=== PATIENT | female | born 1950 | race Caucasian/White ===

== ENCOUNTER 2016-10-31 13:55 | Inpatient (IN) | payer MEDICARE ==
[~2016-10-31] VITALS: Ht 165.1 cm; Wt 186.3 kg
[2016-10-31] VITALS (12 sets, daily range): BP systolic 110–133; BP diastolic 59–99; PULSE 104–149; RESP 16–31; TEMP 97.3–98.6; O2SAT 92–98
[~2016-10-31 13:55] MED LIST: AMLO5TAB22 PO; DUONI NEB; FENO50TA PO; FLUT1INH; FURO20 PO; METO25 PO; OMEP20TA39 PO; POTA75TA PO; PRED50TA PO; PREG75 PO; RIVA20 PO; ULTR50TA PO; Z.0.OXYGEN INH
--- NOTE | 2016-10-31 14:09 | PD ---
HPI Chief Complaint: Chest Pain Time Seen by Provider: 14:08 Travel History International Travel<30 days: No Contact w/Intl Traveler<30days: No Traveled to known affect area: No History of Present Illness HPI 66-year-old female brought in by EMS with complaints of sudden onset left sided pleuritic chest pain. Patient states she had a couple episodes last evening, but this morning it got much worse to the point where she had trouble getting out of bed. Patient denies fever, chills, or other constitutional symptoms. Patient has history of chronic pain and COPD as well as atrial fibrillation. Patient wears O2 at night for sleeping. Patient is allergic to penicillin. PFSH Past Medical History Asthma: Yes Atrial Fibrillation: Yes Heart Rhythm Problems: Yes Cardiovascular Problems: Yes High Cholesterol: Yes GERD: Yes Hypertension: Yes Respiratory: Yes Social History Alcohol Use: No Tobacco Use: No Substance Use: No Allergies-Medications (Allergen,Severity, Reaction): Coded Allergies: Penicillin (Verified Allergy, Severe, 05/01/16) Reported Meds & Prescriptions Reported Meds & Active Scripts Active Reported Lyrica (Pregabalin) 75 Mg Cap 75 Mg PO DAILY Lasix (Furosemide) 20 Mg Tab 20 Mg PO DAILY Amlodipine (Amlodipine Besylate) 5 Mg Tab 5 Mg PO DAILY Metoprolol Tartrate 25 Mg Tab 25 Mg PO BID Xarelto (Rivaroxaban) 20 Mg Tab 20 Mg PO DAILY Breo Ellipta Inh (Fluticasone/Vilanterol) 100-25 Mcg/Act Inh 1 Puff INH DAILY Use daily at the same time. Duoneb (Ipratropium-Albuterol Neb) 0.5-2.5 Mg/3 Ml Neb 1 Nebule INH Q6HR NEB PRN Proair Respiclick Inh (Albuterol Sulfate) 90 Mcg/Act Aerp 2 Puff INH DIRECTED PRN Review of Systems Except as stated in HPI: all other systems reviewed are Neg General / Constitutional: No: Fever, Chills Eyes: No: Visual changes HENT: No: Headaches Cardiovascular: Positive: Chest Pain or Discomfort, Palpitations, Irregular Rhythm, Tachycardia Respiratory: Positive: Shortness of Breath (see history present illness.), Pleuritic Pain, No: Cough, Wheezing, Sneezing, Orthopnea, Hemoptysis Gastrointestinal: No: Abdominal Pain Genitourinary: No: Dysuria Musculoskeletal: No: Pain Skin: No Rash Neurologic: No: Weakness Psychiatric: No: Depression Endocrine: No: Polydipsia Hematologic/Lymphatic: No: Easy Bruising Physical Exam Narrative GENERAL: Morbidly obese female in mild discomfort. SKIN: Warm and dry. Normal color. Normal turgor. HEAD: Atraumatic. Normocephalic. EYES: Pupils equal and round. No scleral icterus. No injection or drainage. ENT: No nasal bleeding or discharge. Mucous membranes pink and moist. NECK: Trachea midline. No JVD. CARDIOVASCULAR: Regular rate and rhythm. RESPIRATORY: No accessory muscle use. Clear to auscultation. Breath sounds equal bilaterally. GASTROINTESTINAL: Abdomen soft, non-tender, nondistended. Hepatic and splenic margins not palpable. MUSCULOSKELETAL: Extremities without clubbing, cyanosis, patient has bilateral 2 + pitting edema in both lower extremities. No significant pain with palpation, compression, and negative Homans sign bilaterally.. No obvious deformities. NEUROLOGICAL: Awake and alert. No obvious cranial nerve deficits. Motor grossly within normal limits. Five out of 5 muscle strength in the arms and legs. Normal speech. PSYCHIATRIC: Appropriate mood and affect; insight and judgment normal. Data Data Last Documented VS Vital Signs Date Time Temp Pulse Resp B/P Pulse Ox O2 Delivery O2 Flow Rate FiO2 10/31/16 17:01 86 Nasal Cannula 4 10/31/16 16:23 149 20 125/59 100 10/31/16 14:58 98.6 Orders Electrocardiogram (10/31/16 14:04) B-Type Natriuretic Peptide (10/31/16 14:04) Ckmb (Isoenzyme) Profile (10/31/16 14:04) Complete Blood Count With Diff (10/31/16 14:04) Comprehensive Metabolic Panel (10/31/16 14:04) D-Dimer (10/31/16 14:04) Magnesium (Mg) (10/31/16 14:04) Prothrombin Time / Inr (Pt) (10/31/16 14:04) Act Partial Throm Time (Ptt) (10/31/16 14:04) Troponin I (10/31/16 14:04) Chest, Single Ap (10/31/16 14:04) Ecg Monitoring (10/31/16 14:04) Bilateral Bp Monitoring (10/31/16 14:04) Iv Access Insert/Monitor (10/31/16 14:04) Oximetry (10/31/16 14:04) Oxygen Administration (10/31/16 14:04) Aspirin (Aspirin) (10/31/16 14:15) Morphine Inj (Morphine Inj) (10/31/16 14:15) Sodium Chloride 0.9% Flush (Ns Flush) (10/31/16 14:15) Ondansetron Inj (Zofran Inj) (10/31/16 14:15) Consult Vascular Access Team (10/31/16 ) Vascular Poc Ultrasound (10/31/16 ) Diltiazem Inj (Cardizem Inj) (10/31/16 15:30) Vital Signs (Adult) Q15MX4,Q4H (10/31/16 16:07) ^ [employer] / Telemetry (10/31/16 16:07) Cardiac Rhythm CHERYL.Q8H (10/31/16 16:07) ^ Notify Dr: Other (10/31/16 16:07) Diltiazem Inj (Cardizem Inj) (10/31/16 16:15) Ct Pulmonary Angiogram (10/31/16 16:10) Iohexol 350 Inj (Omnipaque 350 Inj) (10/31/16 17:52) Blood Culture (10/31/16 18:37) Methylprednisolone So Succ Inj (Solumedr (10/31/16 18:45) Albuterol-Ipratropium Neb (Duoneb Neb) (10/31/16 18:45) Ceftriaxone Inj (Rocephin Inj) (10/31/16 18:45) Azithromycin Inj (Zithromax Inj) (10/31/16 18:45) Admit Order (Ed Use Only) (10/31/16 18:45) Sodium Chlor 0.9% 1000 Ml Inj (Ns 1000 M (10/31/16 19:00) Labs Laboratory Tests Test 10/31/16 14:35 White Blood Count 12.7 TH/MM3 Red Blood Count 4.90 MIL/MM3 Hemoglobin 14.2 GM/DL Hematocrit 43.6 % Mean Corpuscular Volume 88.9 FL Mean Corpuscular Hemoglobin 28.9 PG Mean Corpuscular Hemoglobin 32.5 % Concent Red Cell Distribution Width 14.3 % Platelet Count 231 TH/MM3 Mean Platelet Volume 8.8 FL Neutrophils (%) (Auto) 85.2 % Lymphocytes (%) (Auto) 7.2 % Monocytes (%) (Auto) 6.0 % Eosinophils (%) (Auto) 1.2 % Basophils (%) (Auto) 0.4 % Neutrophils # (Auto) 10.8 TH/MM3 Lymphocytes # (Auto) 0.9 TH/MM3 Monocytes # (Auto) 0.8 TH/MM3 Eosinophils # (Auto) 0.2 TH/MM3 Basophils # (Auto) 0.0 TH/MM3 CBC Comment DIFF FINAL Differential Comment Prothrombin Time 11.3 SEC Prothromb Time International 1.0 RATIO Ratio Activated Partial 28.7 SEC Thromboplast Time D-Dimer Quantitative (PE/DVT) 0.74 MG/L FEU Sodium Level 140 MEQ/L Potassium Level 4.4 MEQ/L Chloride Level 99 MEQ/L Carbon Dioxide Level 33.9 MEQ/L Anion Gap 7 MEQ/L Blood Urea Nitrogen 13 MG/DL Creatinine 0.97 MG/DL Estimat Glomerular Filtration 57 ML/MIN Rate Random Glucose 103 MG/DL Calcium Level 8.6 MG/DL Magnesium Level 1.5 MG/DL Total Bilirubin 0.7 MG/DL Aspartate Amino Transf 10 U/L (AST/SGOT) Alanine Aminotransferase 16 U/L (ALT/SGPT) Alkaline Phosphatase 105 U/L Total Creatine Kinase 35 U/L Troponin I LESS THAN 0.02 NG/ML B-Type Natriuretic Peptide 124 PG/ML Total Protein 6.8 GM/DL Albumin 3.2 GM/DL [facility] Medical Decision Making Medical Screen Exam Complete: Yes Emergency Medical Condition: Yes Differential Diagnosis Pulmonary embolism. Pneumonia. CHF. Cardiac syndrome. Effusion. Narrative Course Patient is medically stable at time of arrival. Labs are ordered including CBC, CMP, PT PTT and INR and d-dimer. EKG and chest x-ray are ordered. Ultrasound of both lower extremity is ordered. Patient is given 325 mg aspirin by mouth. 4 mg IV morphine, 4 mg Zofran IV. EKG shows atrial fibrillation with rapid ventricular response. This is reviewed with Dr. Thapa. Patient's pulse rate is noted to be 140 bpm due to the patient's atrophic with RVR. Dr. Thapa saw the patient and ordered 15 mg diltiazem bolus with a diltiazem drip titrated for her pulse. Patient's O2 sats worsened and she was placed on a Ventimask at 50% to maintain O2 sats. Labs show slight leukocytosis of 12.7 with a right shift. PT PTT and INR are normal. D-dimer is elevated at 0.74. Chemistries remarkable for carbon dioxide of 33.9, troponin of less than 0.02, BNP of 124. Pulmonary embolism CT scan is ordered. CT scan shows no PE but does show bilateral lower lobe consolidation consistent with pneumonia. Blood cultures are ordered 2, and patient is started on Rocephin 1000 mg IV as well as azithromycin 500 mg IV. Patient is given 125 mg Solu-Medrol and DuoNeb 3. 1640 hrs. call placed to the hospitalist for admission. Patient was discussed with Dr. Lowry. Arterial Blood gas is pending. At the patient's blood gases obtained, Dr. Lowry feels that the patient should be taken in under the [facility]. CPAP was started, and call was placed to Dr. Wilson, the [facility] on-call. Patient was discussed with Dr. Wilson who agreed the patient should be admitted to the ICU. Critical Care Narrative Diagnosis Primary Impression: Pneumonia Qualified Code: J18.9 - Pneumonia of both lower lobes due to infectious organism Additional Impressions: Afib Qualified Code: I48.2 - Chronic atrial fibrillation Pleural effusion on left Hypoxia Admitting Information Admitting Physician Requests: Admit Condition: Stable Aaron Tse Oct 31, 2016 14:08
[2016-10-31] MEDS ORDERED: ONDANSETRON HCL 4 MG/2 ML VIAL IVP ONE (14:15)
[2016-10-31] MEDS ORDERED: MORPHINE SULFATE 4 MG/ML INJ IV PUSH ONE (14:15)
[2016-10-31] MEDS ORDERED: SODIUM CHLORIDE 0.9% FLUSH 5 ML FLUSH IVF PRN (14:15)
[2016-10-31] MEDS ORDERED: ASPIRIN 325 MG TAB PO ONE (14:15)
[2016-10-31] MEDS ORDERED: DILTIAZEM HCL 25 MG/5 ML VIAL IV ONE (15:30)
[2016-10-31 15:32] LABS: AUTOMATED NEUTROPHIL # 10.8 TH/MM3 (1.8-7.7); BASOPHIL % 0.4 % (0.0-2.0); EOSINOPHIL # 0.2 TH/MM3 (0-0.4); EOSINOPHIL % 1.2 % (0.0-4.0); HEMATOCRIT 43.6 % (35.0-46.0); HEMO FLAGS DIFF FINAL; LYMPH % 7.2 % (9.0-44.0); LYMPHOCYTE # 0.9 TH/MM3 (1.0-4.8); MEAN CELL VOLUME 88.9 FL (80.0-100.0); MEAN CORPUSCULAR HEMOGLOBIN 28.9 PG (27.0-34.0); MEAN CORPUSCULAR HGB CONC 32.5 % (32.0-36.0); NEUT % 85.2 % (16.0-70.0); PLATELET COUNT 231 TH/MM3 (150-450); RED CELL DISTRIBUTION WIDTH 14.3 % (11.6-17.2); WHITE BLOOD COUNT 12.7 TH/MM3 (4.0-11.0)
[2016-10-31 15:43] LABS: APTT (PATIENT) 28.7 SEC (24.3-30.1); PROTHROMBIN TIME - PATIENT 11.3 SEC (9.8-11.6)
[2016-10-31] MEDS ORDERED: XARE20TA PO (15:45)
[2016-10-31] MEDS ORDERED: FURO1TAB62 PO (15:45)
[2016-10-31] MEDS ORDERED: IPRASOL INH (15:45)
[2016-10-31] MEDS ORDERED: AMLO5TAB2 PO (15:45)
[2016-10-31] MEDS ORDERED: FLUT1INH INH (15:45)
[2016-10-31] MEDS ORDERED: ALBU1AER5 INH (15:45)
[2016-10-31] MEDS ORDERED: METO25TA3 PO (15:45)
[2016-10-31] MEDS ORDERED: LYRI75CA PO (15:45)
--- NOTE | 2016-10-31 15:47 | RADRPT ---
EXAM DATE/TIME: 10/31/2016 14:03 [facility] COMPARISON: No previous studies available for comparison. INDICATIONS : Shortness of breath. MEDICAL HISTORY : Asthma SURGICAL HISTORY : None. ENCOUNTER: Initial ACUITY: 1 day PAIN SCORE: 0/10 LOCATION: Bilateral chest FINDINGS: There is increased density at the left chest overlying the left heart border. It appea rs the lower half of the left chest is opacified. It is thought the heart size is likely enlarged. T here is some mild increased density identified at the right base. CONCLUSION: 1. Increased density at the left base representing a combination of suspected large effusion and left lower lobe atelectasis or consolidation. 2. Milder area of consolidation or atelectasis at the right base. 3. Cardiomegaly. Perry Frye MD on October 31, 2016 at 15:40 Board Certified Radiologist. This report was verified electronically.
[2016-10-31 15:55] LABS: ALT (GPT) 16 U/L (10-53); ANION GAP 7 MEQ/L (5-15); AST (GOT) 10 U/L (15-37); BICARBONATE 33.9 MEQ/L (21.0-32.0); BLOOD UREA NITROGEN 13 MG/DL (7-18); CHLORIDE 99 MEQ/L (98-107); GLOMERULAR FILTRATION RATE 57 ML/MIN (>89); MAGNESIUM 1.5 MG/DL (1.5-2.5); POTASSIUM 4.4 MEQ/L (3.5-5.1); SODIUM (NA) 140 MEQ/L (136-145)
[2016-10-31 16:08] LABS: ALKALINE PHOSPHATASE 105 U/L (45-117); TOTAL BILIRUBIN ADULT 0.7 MG/DL (0.2-1.0)
[2016-10-31 16:11] LABS: CREATINE KINASE 35 U/L (26-192)
[2016-10-31] MEDS: DILTIAZEM INJ 125 MG in SODIUM CHLORIDE 0.9% INJ 100 ML IV SCH (16:57)
[2016-10-31] MEDS ORDERED: IOHEXOL 350 MG/ML 10 ML VIAL (for RAD DIAG) IV ONE (17:52)
--- NOTE | 2016-10-31 18:09 | RADRPT ---
EXAM DATE/TIME: 10/31/2016 17:31 [facility] COMPARISON: No previous studies available for comparison. INDICATIONS : Left-sided chest pain. IV CONTRAST: 70 cc Omnipaque 350 (iohexol) IV RADIATION DOSE: 41.78 CTDIvol (mGy) MEDICAL HISTORY : Hypertension. Gastroesophageal reflux disease. Congestive heart failure. Hiatal hernia. SURGICAL HISTORY : None. ENCOUNTER: Initial ACUITY: 1 day PAIN SCALE: 10/10 LOCATION: Left chest TECHNIQUE: Volumetric scanning of the chest was performed using a pulmonary embolism protocol MIP images were reconstructed. Using automated exposure control and adjustment of the mA and/or kV acco rding to patient size, radiation dose was kept as low as reasonably achievable to obtain optimal diag nostic quality images. FINDINGS: The heart is enlarged with consolidative changes in the left lower lobe with a left ple ural effusion. There is no axillary adenopathy. There is no radiographically significant mediastina l adenopathy. I do not see evidence for central pulmonary emboli. Portion of the liver and spleen identified are free of focal defects. CONCLUSION: 1. Consolidative changes in both lung bases worse on the left than the right. 2. There is no evidence for central pulmonary emboli. Joseph Baeza MD FACR on October 31, 2016 at 18:00 Board Certified Radiologist. This report was verified electronically.
[2016-10-31] MEDS ORDERED: cefTRIAXone INJ 1,000 MG in SODIUM CHLORIDE 0.9% INJ 100 ML IV ONE (18:45)
[2016-10-31] MEDS ORDERED: methylPREDNISolone SOD SUCC 125 MG/2 ML VIAL IVP ONE (18:45)
[2016-10-31] MEDS ORDERED: AZITHROMYCIN INJ 500 MG in SODIUM CHLOR 0.9% 250 ML INJ 250 ML IV ONE (18:45)
--- NOTE | 2016-10-31 18:47 | PD ---
Data Data Last Documented VS Vital Signs Date Time Temp Pulse Resp B/P Pulse Ox O2 Delivery O2 Flow Rate FiO2 10/31/16 17:01 86 Nasal Cannula 4 10/31/16 16:23 149 20 125/59 100 10/31/16 14:58 98.6 Orders Electrocardiogram (10/31/16 14:04) B-Type Natriuretic Peptide (10/31/16 14:04) Ckmb (Isoenzyme) Profile (10/31/16 14:04) Complete Blood Count With Diff (10/31/16 14:04) Comprehensive Metabolic Panel (10/31/16 14:04) D-Dimer (10/31/16 14:04) Magnesium (Mg) (10/31/16 14:04) Prothrombin Time / Inr (Pt) (10/31/16 14:04) Act Partial Throm Time (Ptt) (10/31/16 14:04) Troponin I (10/31/16 14:04) Chest, Single Ap (10/31/16 14:04) Ecg Monitoring (10/31/16 14:04) Bilateral Bp Monitoring (10/31/16 14:04) Iv Access Insert/Monitor (10/31/16 14:04) Oximetry (10/31/16 14:04) Oxygen Administration (10/31/16 14:04) Aspirin (Aspirin) (10/31/16 14:15) Morphine Inj (Morphine Inj) (10/31/16 14:15) Sodium Chloride 0.9% Flush (Ns Flush) (10/31/16 14:15) Ondansetron Inj (Zofran Inj) (10/31/16 14:15) Consult Vascular Access Team (10/31/16 ) Vascular Poc Ultrasound (10/31/16 ) Diltiazem Inj (Cardizem Inj) (10/31/16 15:30) Vital Signs (Adult) Q15MX4,Q4H (10/31/16 16:07) ^ [employer] / Telemetry (10/31/16 16:07) Cardiac Rhythm CHERYL.Q8H (10/31/16 16:07) ^ Notify Dr: Other (10/31/16 16:07) Diltiazem Inj (Cardizem Inj) (10/31/16 16:15) Ct Pulmonary Angiogram (10/31/16 16:10) Iohexol 350 Inj (Omnipaque 350 Inj) (10/31/16 17:52) Blood Culture (10/31/16 18:37) Methylprednisolone So Succ Inj (Solumedr (10/31/16 18:45) Albuterol-Ipratropium Neb (Duoneb Neb) (10/31/16 18:45) Ceftriaxone Inj (Rocephin Inj) (10/31/16 18:45) Azithromycin Inj (Zithromax Inj) (10/31/16 18:45) Labs Laboratory Tests Test 10/31/16 14:35 White Blood Count 12.7 TH/MM3 Red Blood Count 4.90 MIL/MM3 Hemoglobin 14.2 GM/DL Hematocrit 43.6 % Mean Corpuscular Volume 88.9 FL Mean Corpuscular Hemoglobin 28.9 PG Mean Corpuscular Hemoglobin 32.5 % Concent Red Cell Distribution Width 14.3 % Platelet Count 231 TH/MM3 Mean Platelet Volume 8.8 FL Neutrophils (%) (Auto) 85.2 % Lymphocytes (%) (Auto) 7.2 % Monocytes (%) (Auto) 6.0 % Eosinophils (%) (Auto) 1.2 % Basophils (%) (Auto) 0.4 % Neutrophils # (Auto) 10.8 TH/MM3 Lymphocytes # (Auto) 0.9 TH/MM3 Monocytes # (Auto) 0.8 TH/MM3 Eosinophils # (Auto) 0.2 TH/MM3 Basophils # (Auto) 0.0 TH/MM3 CBC Comment DIFF FINAL Differential Comment Prothrombin Time 11.3 SEC Prothromb Time International 1.0 RATIO Ratio Activated Partial 28.7 SEC Thromboplast Time D-Dimer Quantitative (PE/DVT) 0.74 MG/L FEU Sodium Level 140 MEQ/L Potassium Level 4.4 MEQ/L Chloride Level 99 MEQ/L Carbon Dioxide Level 33.9 MEQ/L Anion Gap 7 MEQ/L Blood Urea Nitrogen 13 MG/DL Creatinine 0.97 MG/DL Estimat Glomerular Filtration 57 ML/MIN Rate Random Glucose 103 MG/DL Calcium Level 8.6 MG/DL Magnesium Level 1.5 MG/DL Total Bilirubin 0.7 MG/DL Aspartate Amino Transf 10 U/L (AST/SGOT) Alanine Aminotransferase 16 U/L (ALT/SGPT) Alkaline Phosphatase 105 U/L Total Creatine Kinase 35 U/L Troponin I LESS THAN 0.02 NG/ML B-Type Natriuretic Peptide 124 PG/ML Total Protein 6.8 GM/DL Albumin 3.2 GM/DL MDM Supervised Visit with MAUREEN: Yes Narrative Course The history, exam, and medical decision-making in the associated midlevel provider note were completed with my assistance. I reviewed and agree with the findings presented. I attest that I had a [id number] encounter with the patient on the same day, and personally performed and documented my assessment and findings in the medical record. *My assessment and Findings: This is a 66-year-old female with a history of COPD who presents the emergency department with left sided pleuritic pain as well as increasing shortness of breath. She does wear oxygen at home and night , but here in the emergency department she desaturates to 86% on room air. Patient also was found to be in atrial fibrillation with RVR. She did not take her home medications this morning because she wasn't feeling well. Labs are notable for a mild leukocytosis. X-ray demonstrated a left-sided pleural effusion in the area where the patient is having pain. Given the patient has a normal BNP, a CT was ordered which demonstrates bilateral consolidations suggesting pneumonia. Patient will be given IV hydration, antibiotics, cultures will be obtained, and the patient will be admitted for further management. She was also placed on a diltiazem infusion to control her heart rate. Diagnosis Primary Impression: Chest pain made worse by breathing Additional Impressions: Hypoxia Afib Qualified Code: I48.2 - Chronic atrial fibrillation Pleural effusion on left Condition: Stable Gracie Thapa MD Oct 31, 2016 18:47
[2016-10-31] MEDS: RESP: ALBUTEROL 2.5 MG/IPRATROPIUM 0.5 MG NEB (SCH) INH ×4 (18:54→23:23)
[2016-10-31] MEDS ORDERED: SODIUM CHLOR 0.9% 1000 ML INJ 1,000 ML IV ONE (19:00)
[2016-10-31] MEDS ORDERED: POTASSIUM CL 40 MEQ/30 ML LIQ UDC PO/TUBE PRN ×2 (20:00)
[2016-10-31] MEDS ORDERED: MISCELLANEOUS NURSING INFORMATION XX SCH (20:00)
[2016-10-31] MEDS ORDERED: DEXTROSE 50% IN WATER 50 ML VIAL(D50) IV PUSH PRN (20:00)
[2016-10-31] MEDS ORDERED: ENOXAPARIN SODIUM 40 MG/0.4 ML SYRINGE SQ SCH (20:00)
[2016-10-31] MEDS ORDERED: SODIUM PHOSPHATE INJ 30 MMOL in SODIUM CHLOR 0.9% 250 ML INJ 240 ML IV PRN (20:00)
[2016-10-31] MEDS ORDERED: MAGNESIUM OXIDE 400 MG TAB PO PRN (20:00)
[2016-10-31] MEDS ORDERED: POTASSIUM PHOSPHATE INJ 30 MMOL in SODIUM CHLOR 0.9% 250 ML INJ 250 ML IV PRN (20:00)
[2016-10-31] MEDS ORDERED: POTASSIUM CHLOR 20 MEQ PREMIX 100 ML IV PRN ×2 (20:00)
[2016-10-31] MEDS ORDERED: MAGNESIUM SULFATE INJ 4 GM in SODIUM CHLORIDE 0.9% INJ 92 ML IV PRN (20:00)
[2016-10-31] MEDS ORDERED: SODIUM CHLORIDE 0.9% FLUSH 5 ML FLUSH IV FLUSH PRN (20:00)
[2016-10-31] MEDS ORDERED: POTASSIUM PHOSPHATE MONOBASIC 500 MG TAB PO PRN (20:00)
[2016-10-31] MEDS ORDERED: MAGNESIUM SULFATE INJ 2 GM in SODIUM CHLORIDE 0.9% INJ 96 ML IV PRN (20:00)
[2016-10-31] MEDS ORDERED: CHLORHEXIDINE GLUCONATE 2 % 1 PACK (2 CLOTHS) TOP PRN (20:00)
[2016-10-31] MEDS ORDERED: POTASSIUM CHLOR 40 MEQ PREMIX 100 ML IV PRN ×2 (20:00)
[2016-10-31] MEDS ORDERED: POTASSIUM PHOSPHATE MONOBASIC 500 MG TAB PO/TUBE PRN (20:00)
--- NOTE | 2016-10-31 20:04 | HHI.HP ---
HPI Service Critical Care Medicine Primary Care Physician No Primary Care Physician Admission Diagnosis Pneumonia/Hypoxia/Afib/Hypoxia Diagnosis: Chief Complaint: shortness of breath Travel History International Travel<30 Days: No Contact w/Intl Traveler <30 Da: No Traveled to Known Affected Are: No History of Present Illness This is a 66yF with history of a fib and o2 dependent COPD and morbid obesity who presents with 1 day history of pleuritic chest pain and shortness of breath , found to be more hypoxic than usual on her home o2. initial ABG per report to me in the ED (not in the EMR) was pH 7.1 pco2 99. The patient was placed on BiPAP. The patient was initially given Rocephin and azithromycin iv. Pertinent labs are a wbc 12.7, bicarb 33, bnp 124. Critical care medicine is consulted for evaluation and management of her hypoxic and hypercarbic respiratory failure. When I evaluated the patient, she was moderately dyspneic. She denied N/V/ diarrhea. Although she had previously endorsed pleuritic chest pain to the ED physician, she denied chest pain to me on my evaluation. She states she is compliant with her xarelto. Patient is allergic to penicillins, but has tolerated cephalosporins in the past. Review of Systems ROS Limitations: Clinical Condition Constitutional: DENIES: Fatigue, Chills Respiratory: COMPLAINS OF: Shortness of breath, DENIES: Cough, Wheezing, Sputum production Cardiovascular: DENIES: Chest pain, Palpitations, Dyspnea on Exertion, Lower Extremity Edema Gastrointestinal: DENIES: Abdominal pain, Constipation, Diarrhea, Nausea, Vomiting Past Family Social History Allergies: Coded Allergies: Penicillin (Verified Allergy, Severe, 05/01/16) Past Medical History Asthma o2 dependent COPD Atrial fibrillation Hyperlipidemia Hypertension GERD Past Surgical History Appendectomy Hernia repair Reported Medications Lyrica (Pregabalin) 75 Mg Cap 75 Mg PO DAILY Lasix (Furosemide) 20 Mg Tab 20 Mg PO DAILY Amlodipine (Amlodipine Besylate) 5 Mg Tab 5 Mg PO DAILY Metoprolol Tartrate 25 Mg Tab 25 Mg PO BID Xarelto (Rivaroxaban) 20 Mg Tab 20 Mg PO DAILY Breo Ellipta Inh (Fluticasone/Vilanterol) 100-25 Mcg/Act Inh 1 Puff INH DAILY Use daily at the same time. Duoneb (Ipratropium-Albuterol Neb) 0.5-2.5 Mg/3 Ml Neb 1 Nebule INH Q6HR NEB PRN Proair Respiclick Inh (Albuterol Sulfate) 90 Mcg/Act Aerp 2 Puff INH DIRECTED PRN Active Ordered Medications See MAR Family History reviewed and found to be noncontributory to her acute illness. Social History Denies tobacco, alcohol, drugs of abuse. Physical Exam Vital Signs Vital Signs Date Time Temp Pulse Resp B/P Pulse Ox O2 Delivery O2 Flow Rate FiO2 10/31/16 17:01 86 Nasal Cannula 4 10/31/16 16:32 95 Partial Rebreather 15.00 10/31/16 16:23 149 20 125/59 98 Non-Rebreather 100 10/31/16 15:52 110 16 120/83 94 Nasal Cannula 2 10/31/16 15:00 142 31 121/88 95 Nasal Cannula 2 10/31/16 14:58 98.6 134 26 121/88 94 Nasal Cannula 2 10/31/16 14:58 134 121/88 10/31/16 14:57 137 10/31/16 14:10 94 Nasal Cannula 2 10/31/16 14:08 Nasal Cannula 2 10/31/16 14:06 124 133/99 10/31/16 14:06 98.6 124 21 133/99 94 10/31/16 14:06 98.6 124 24 133/99 94 Physical Exam GENERAL: Morbidly obese Middle-aged female, lying in bed, moderate respiratory distress. HEENT: Normocephalic. Atraumatic. Pupils equal, round, reactive, conjugate. Mucous membranes are moist. NECK: In place. Trachea is midline. JVD unable to be assessed due to body habitus CHEST: Mildly tachypneic. Equal chest rise. Very distant breath sounds given body habitus. Diminished breath sounds more on the left than the right. CARDIOVASCULAR: Tachycardic rate, irregularly irregular rhythm. Muffled heart sounds. No appreciable murmurs. ABDOMEN: Morbidly obese, soft, nontender, nondistended. No guarding. MUSCULOSKELETAL: 1+ peripheral edema. Distal pulses 2+. NEUROLOGICAL: RASS 0. CAM -. Follows commands in all 4 extremities. No gross focal motor or sensory deficits. Laboratory Laboratory Tests Test 10/31/16 14:35 White Blood Count 12.7 Red Blood Count 4.90 Hemoglobin 14.2 Hematocrit 43.6 Mean Corpuscular Volume 88.9 Mean Corpuscular Hemoglobin 28.9 Mean Corpuscular Hemoglobin 32.5 Concent Red Cell Distribution Width 14.3 Platelet Count 231 Mean Platelet Volume 8.8 Neutrophils (%) (Auto) 85.2 Lymphocytes (%) (Auto) 7.2 Monocytes (%) (Auto) 6.0 Eosinophils (%) (Auto) 1.2 Basophils (%) (Auto) 0.4 Neutrophils # (Auto) 10.8 Lymphocytes # (Auto) 0.9 Monocytes # (Auto) 0.8 Eosinophils # (Auto) 0.2 Basophils # (Auto) 0.0 CBC Comment DIFF FINAL Differential Comment Prothrombin Time 11.3 Prothromb Time International 1.0 Ratio Activated Partial 28.7 Thromboplast Time D-Dimer Quantitative (PE/DVT) 0.74 Sodium Level 140 Potassium Level 4.4 Chloride Level 99 Carbon Dioxide Level 33.9 Anion Gap 7 Blood Urea Nitrogen 13 Creatinine 0.97 Estimat Glomerular Filtration 57 Rate Random Glucose 103 Calcium Level 8.6 Magnesium Level 1.5 Total Bilirubin 0.7 Aspartate Amino Transf 10 (AST/SGOT) Alanine Aminotransferase 16 (ALT/SGPT) Alkaline Phosphatase 105 Total Creatine Kinase 35 Troponin I LESS THAN 0.02 B-Type Natriuretic Peptide 124 Total Protein 6.8 Albumin 3.2 Result Diagram: 10/31/16 1435 10/31/[address] angiography 10/31: Negative for pulmonary embolism. Evidence of left lower lobe consolidation. Small left pleural effusion. Assessment and Plan Assessment and Plan Assessment: This is a 66-year-old female with history of oxygen dependent COPD, morbid obesity, atrial fibrillation who presents with A. fib with rapid ventricular response, COPD exacerbation, community-acquired pneumonia. I think is reasonable to continue her on BiPAP. She is alert and oriented for now. We will recheck her ABG. I'm concerned given her severe CO2 retention that she may require intubation mechanical ventilation, although given her body habitus and her severe COPD, this is not without risk, and she may never separate from mechanical ventilation if intubated. For now, she does remains critically ill as her hypercarbic and hypoxic respiratory failure her life-threatening given her medical comorbidities and her severe respiratory acidosis. Active problems: Acute hypercarbic and hypoxic respiratory failure Community-acquired pneumonia COPD exacerbation Atrial fibrillation with rapid ventricular response Plan: Admit to the ICU Continue BiPAP Follow-up ABG after 2 hours of BiPAP We will continue the patient on BiPAP as long she continues to improve. If she decreases her mentation or her hypoxia or hypercarbia worsens we will proceed with intubation and mechanical ventilation Continue azithromycin We will stop the patient over to cefepime given her history of severe COPD for improved pseudomonal coverage Follow-up blood, sputum, urine cultures Urine pneumococcal antigen methylpred 60 iv q6h --Duonebs q4h and q2h prn Agree with diltiazem drip for rapidly titratable rate control given A. fib RVR Continue home Xarelto and SCDs for DVT prophylaxis Protonix for GERD and GI prophylaxis This patient remains critically ill with one or more organ systems which are or may become a threat to life. I have spent in excess of 37 minutes discontinuously in the care and management of this patient. This time is exclusive of procedures, and includes, but is not limited to, evaluation of the patient, review of the medical record, discussions with family, consultants, nursing staff, or respiratory therapy, and documentation in the medical record. Code Status Full Code Christ Mullins MD Oct 31, 2016 20:04
[2016-10-31] MEDS: DOCUSATE SODIUM 50 MG/SENNA 8.6 MG TAB PO SCH (21:00)
[2016-10-31] MEDS: SODIUM CHLORIDE 0.9% FLUSH 5 ML FLUSH IV FLUSH SCH (21:00)
[2016-10-31] MEDS: INSULIN NovoLIN REGULAR SUPPLEMENTAL SCALE SQ SCH (21:00)
[2016-10-31 21:07] LABS: BACTERIA, URINE MANY /hpf; BLOOD, URINE SMALL (NEG); GLUCOSE,URINE NEG (NEG); KETONE, URINE NEG (NEG); MUCUS URINE FEW /lpf (OCC); NITRITE,URINE NEG (NEG); SQUAMOUS EPITHELIAL CELL URINE 1 /hpf (0-5); URINE COLOR YELLOW (YELLW/STRAW)
[2016-10-31 21:09] LABS: COMMENT (UR) CATH-CULTURE IND; CULTURE IF INDICATED CATH CULTURE IND
[2016-10-31 21:24] LABS: BLOOD GAS BASE EXCESS 5.2 mmol/L (-2-2); BLOOD GAS CARBOXYHEMOGLOBIN 2.2 % (0-4); BLOOD GAS HCO3 34 mmol/L (22-26); BLOOD GAS O2 HGB SATURATION 88 % (90-100); BLOOD GAS PCO2 99 mmHg (38-42); BLOOD GAS PO2 73 mmHG (61-120); BLOOD GAS TOTAL HGB 15.3 G/DL (12.0-16.0); TEMP CORR TO 98.6
[2016-10-31 21:25] LABS: CRITICAL VALUE YES; DRAW SITE LT BRACHIAL; LITER FLOW 8 L/M; NUMBER OF ARTERIAL PUNCTURES 1; OXYGEN DEVICE ON NEBULIZER TX; STAT YES
[2016-10-31 21:29] LABS: BLOOD GAS BASE EXCESS 5.2 mmol/L (-2-2); BLOOD GAS CARBOXYHEMOGLOBIN 2.3 % (0-4); BLOOD GAS HCO3 32 mmol/L (22-26); BLOOD GAS METHEMOGLOBIN 1.7 % (0-2); BLOOD GAS O2 HGB SATURATION 83 % (90-100); BLOOD GAS OXYGEN CONTENT 17.1 Vol % (12.0-20.0); BLOOD GAS PCO2 77 mmHg (38-42); BLOOD GAS PO2 54 mmHG (61-120); BLOOD GAS TOTAL HGB 14.7 G/DL (12.0-16.0); CRITICAL VALUE YES; OXYGEN DEVICE BIPAP(ON NPPV); TEMP CORR TO 98.6
[2016-10-31 21:30] LABS: DRAW SITE RT RADIAL; FIO2 60 %; NUMBER OF ARTERIAL PUNCTURES 1; STAT NO; ULNAR PULSE PRESENT; VENT SETTINGS PEEP=6 PS=12
[2016-11-01] VITALS (15 sets, daily range): BP systolic 113–143; BP diastolic 58–86; PULSE 78–119; RESP 15–30; TEMP 97.7–99.7; O2SAT 90–95
[2016-11-01] MEDS: PANTOPRAZOLE SODIUM 40 MG VIAL IV PUSH SCH ×2 (00:26→23:14)
[2016-11-01] MEDS: methylPREDNISolone SOD SUCC 125 MG/2 ML VIAL IV PUSH SCH ×5 (00:26→23:15)
[2016-11-01] MEDS: DILTIAZEM INJ 125 MG in SODIUM CHLORIDE 0.9% INJ 100 ML IV SCH (00:28)
[2016-11-01] MEDS: CEFEPIME INJ 2,000 MG in SODIUM CHLORIDE 0.9% INJ 100 ML IV SCH ×4 (00:28→23:17)
[2016-11-01] MEDS: INSULIN NovoLIN REGULAR SUPPLEMENTAL SCALE SQ SCH ×5 (03:00→20:08)
[2016-11-01] MEDS: RESP: ALBUTEROL 2.5 MG/IPRATROPIUM 0.5 MG NEB (SCH) INH ×6 (03:38→23:10)
[2016-11-01] MEDS: CHLORHEXIDINE GLUCONATE 2 % 1 PACK (2 CLOTHS) TOP SCH (03:39)
[2016-11-01 04:14] LABS: HEMATOCRIT 46.3 % (35.0-46.0); MEAN CELL VOLUME 89.7 FL (80.0-100.0); MEAN CORPUSCULAR HEMOGLOBIN 28.8 PG (27.0-34.0); MEAN CORPUSCULAR HGB CONC 32.2 % (32.0-36.0); PLATELET COUNT 217 TH/MM3 (150-450); RED BLOOD COUNT 5.16 MIL/MM3 (4.00-5.30); RED CELL DISTRIBUTION WIDTH 14.8 % (11.6-17.2); REVIEW FLAG FINAL; WHITE BLOOD COUNT 14.1 TH/MM3 (4.0-11.0)
[2016-11-01 04:44] LABS: BICARBONATE 30.3 MEQ/L (21.0-32.0)
[2016-11-01 04:45] LABS: POTASSIUM 5.6 MEQ/L (3.5-5.1)
[2016-11-01 05:49] LABS: BLOOD GAS BASE EXCESS 3.4 mmol/L (-2-2); BLOOD GAS CARBOXYHEMOGLOBIN 1.6 % (0-4); BLOOD GAS HCO3 30 mmol/L (22-26); BLOOD GAS METHEMOGLOBIN 0.7 % (0-2); BLOOD GAS O2 HGB SATURATION 91 % (90-100); BLOOD GAS OXYGEN CONTENT 18.2 Vol % (12.0-20.0); BLOOD GAS PCO2 71 mmHg (38-42); BLOOD GAS PO2 67 mmHg (61-120); BLOOD GAS TOTAL HGB 14.3 G/DL (12.0-16.0); TEMP CORR TO 98.6
[2016-11-01 05:50] LABS: CRITICAL VALUE YES; DRAW SITE RT RADIAL; FIO2 45 %; NUMBER OF ARTERIAL PUNCTURES 1; OXYGEN DEVICE BIPAP; STAT NO; ULNAR PULSE PRESENT; VENT SETTINGS IPAP 15/EPAP 8
[2016-11-01] MEDS: PREGABALIN 75 MG CAP PO SCH (08:43)
[2016-11-01] MEDS: RIVAROXABAN 20 MG TAB PO SCH (08:43)
[2016-11-01] MEDS: SODIUM CHLORIDE 0.9% FLUSH 5 ML FLUSH IV FLUSH SCH ×2 (08:43→19:51)
[2016-11-01] MEDS: DOCUSATE SODIUM 50 MG/SENNA 8.6 MG TAB PO SCH ×2 (08:43→19:51)
--- NOTE | 2016-11-01 09:33 | HHI.CCPN ---
Subjective Remarks/Hospital Course This is a 66yF with history of a fib and o2 dependent COPD and morbid obesity who presents with 1 day history of pleuritic chest pain and shortness of breath , found to be more hypoxic than usual on her home o2. initial ABG per report to me in the ED (not in the EMR) was pH 7.1 pco2 99. The patient was placed on BiPAP. The patient was initially given Rocephin and azithromycin iv. Pertinent labs are a wbc 12.7, bicarb 33, bnp 124. Critical care medicine is consulted for evaluation and management of her hypoxic and hypercarbic respiratory failure. 11/01: Much improved respiratory comfort today. The complete atelectasis of the LLL is worrisome, but probably chronic. She dose not act infected. Objective Vital Signs Date Time Temp Pulse Resp B/P Pulse Ox O2 Delivery O2 Flow Rate FiO2 11/01/16 08:00 90 11/01/16 08:00 97.7 19 122/73 95 11/01/16 08:00 Partial Non-Rebreather 13.00 11/01/16 07:48 50 Result Diagram: 11/01/16 0357 11/01/16 0357 Other Results Laboratory Tests Test 10/31/16 10/31/16 11/01/16 19:30 21:10 05:40 Blood Gas Puncture Site LT BRACHIAL RT RADIAL RT RADIAL Blood Gas Patient Temperature 98.6 98.6 98.6 Blood Gas HCO3 34 mmol/L 32 mmol/L 30 mmol/L (22-26) (22-26) (22-26) Blood Gas Base Excess 5.2 mmol/L 5.2 mmol/L 3.4 mmol/L (-2-2) (-2-2) (-2-2) Blood Gas Oxygen Saturation 88 % (90-100) 83 % (90-100) 91 % (90-100) Arterial Blood pH 7.16 7.25 7.25 (7.380-7.420) (7.380-7.420) (7.380-7.420) Arterial Blood Partial 99 mmHg (38-42) 77 mmHg (38-42) 71 mmHg (38-42) Pressure CO2 Arterial Blood Partial 73 mmHG 54 mmHG 67 mmHg Pressure O2 (61-120) (61-120) (61-120) Arterial Blood Oxygen Content 19.0 Vol % 17.1 Vol % 18.2 Vol % (12.0-20.0) (12.0-20.0) (12.0-20.0) Arterial Blood 2.2 % (0-4) 2.3 % (0-4) 1.6 % (0-4) Carboxyhemoglobin Arterial Blood Methemoglobin 2.0 % (0-2) 1.7 % (0-2) 0.7 % (0-2) Blood Gas Hemoglobin 15.3 G/DL 14.7 G/DL 14.3 G/DL (12.0-16.0) (12.0-16.0) (12.0-16.0) Oxygen Delivery Device ON NEBULIZER BIPAP(ON NPPV) BIPAP TX Blood Gas Liter Flow 8 L/M Blood Gas Ventilator Setting PEEP=6 PS=12 IPAP 15/EPAP 8 Blood Gas Inspired Oxygen 60 % 45 % Imaging CT angiography 10/31: Negative for pulmonary embolism. Evidence of left lower lobe consolidation. Small left pleural effusion. Objective Remarks GENERAL: Morbidly obese Middle-aged female. HEENT: Normocephalic. Atraumatic. NECK: Supple. Airway widely patent. CHEST: Mildly tachypneic. Distant breath sounds. Diminished breath sounds more on the left than the right. CARDIOVASCULAR: Controlled rate, irregularly irregular rhythm. No appreciable murmurs. ABDOMEN: Morbidly obese, soft, nontender, nondistended. No guarding. BS active. MUSCULOSKELETAL: 1+ peripheral edema. Distal pulses 2+. NEUROLOGICAL: O X 3, alert. Follows commands in all 4 extremities. No gross focal motor or sensory deficits. A/P Assessment and Plan Active problems: Acute hypercarbic and hypoxic respiratory failure Community-acquired pneumonia COPD exacerbation Atrial fibrillation with rapid ventricular response Plan: Transfer Partial NRBM Continue azithromycin - Cefepime given her history of severe COPD for improved pseudomonal coverage Follow-up blood, sputum, urine cultures Urine pneumococcal antigen methylpred 60 iv q6h --Duonebs q4h and q2h prn Convert to oral diltiazem. Continue home Xarelto and SCDs for DVT prophylaxis Protonix for GERD and GI prophylaxis Assessment: This is a 66-year-old female with history of oxygen dependent COPD, morbid obesity, permanent atrial fibrillation who presents with A. fib with rapid ventricular response, COPD exacerbation, community-acquired pneumonia. She is alert and oriented for now. I'm concerned given her severe CO2 retention that she may require intubation mechanical ventilation, although given her body habitus and her severe COPD, this is not without risk, and she may never separate from mechanical ventilation if intubated. She is probably close to her baseline now. Colin Moralez MD Nov 01, 2016 09:33
[2016-11-01] MEDS: FLUTICASONE 100 MCG/VILANTEROL 25 MCG INHALER INH SCH (09:54)
[2016-11-01] MEDS: guaiFENesin/DEXTROMETHORPHAN 200 MG/20 MG/10 ML CUP PO PRN ×3 (11:36→20:48)
[2016-11-01] MEDS: DILTIAZEM HCL 60 MG TAB PO SCH ×3 (11:43→23:14)
[2016-11-01 12:07] LABS: BACTERIA, URINE MOD /hpf; BLOOD, URINE SMALL (NEG); GLUCOSE,URINE NEG (NEG); HYALINE CAST, URINE 6 /lpf (RARE); KETONE, URINE TRACE mg/dL (NEG); MUCUS URINE FEW /lpf (OCC); NITRITE,URINE NEG (NEG); SQUAMOUS EPITHELIAL CELL URINE 1 /hpf (0-5); URINE COLOR YELLOW (YELLW/STRAW)
[2016-11-01 12:12] LABS: COMMENT (UR) CATH-CULTURE IND; CULTURE IF INDICATED CATH CULTURE IND
--- NOTE | 2016-11-01 20:40 | EKG ---
Date Performed: 10/31/2016 Time Performed: 14:19:05 PTAGE: 66 years EKG: ATRIAL FIBRILLATION WITH RAPID VENTRICULAR RESPONSE ABNORMAL RHYTHM ECG PREVIOUS TRACING : 05/01/2016 20.57 Compared to prior tracing no significant change DOCTOR: Isabel Musa Interpretating Date/Time 11/01/2016 20:38:41
[2016-11-01] MEDS: AZITHROMYCIN INJ 500 MG in SODIUM CHLOR 0.9% 250 ML INJ 250 ML IV SCH (21:13)
[2016-11-02] VITALS (18 sets, daily range): BP systolic 118–139; BP diastolic 71–97; PULSE 86–122; RESP 18–27; TEMP 97.9–99.9; O2SAT 91–98
[2016-11-02] MEDS: INSULIN NovoLIN REGULAR SUPPLEMENTAL SCALE SQ SCH ×5 (03:00→21:00)
[2016-11-02] MEDS: RESP: ALBUTEROL 2.5 MG/IPRATROPIUM 0.5 MG NEB (SCH) INH ×5 (03:30→20:30)
[2016-11-02] MEDS: CHLORHEXIDINE GLUCONATE 2 % 1 PACK (2 CLOTHS) TOP SCH (04:00)
[2016-11-02 04:44] LABS: HEMATOCRIT 41.4 % (35.0-46.0); MEAN CELL VOLUME 89.6 FL (80.0-100.0); MEAN CORPUSCULAR HEMOGLOBIN 28.5 PG (27.0-34.0); MEAN CORPUSCULAR HGB CONC 31.8 % (32.0-36.0); PLATELET COUNT 249 TH/MM3 (150-450); RED BLOOD COUNT 4.62 MIL/MM3 (4.00-5.30); RED CELL DISTRIBUTION WIDTH 14.3 % (11.6-17.2); REVIEW FLAG FINAL; WHITE BLOOD COUNT 14.1 TH/MM3 (4.0-11.0)
[2016-11-02 04:50] LABS: BICARBONATE 31.7 MEQ/L (21.0-32.0)
[2016-11-02 04:51] LABS: POTASSIUM 5.1 MEQ/L (3.5-5.1)
[2016-11-02] MEDS: DILTIAZEM HCL 60 MG TAB PO SCH ×2 (06:48→11:30)
[2016-11-02] MEDS: methylPREDNISolone SOD SUCC 125 MG/2 ML VIAL IV PUSH SCH ×4 (06:48→23:06)
[2016-11-02] MEDS: SODIUM CHLORIDE 0.9% FLUSH 5 ML FLUSH IV FLUSH SCH ×2 (08:45→21:28)
[2016-11-02] MEDS: FLUTICASONE 100 MCG/VILANTEROL 25 MCG INHALER INH SCH (08:45)
[2016-11-02] MEDS: CEFEPIME INJ 2,000 MG in SODIUM CHLORIDE 0.9% INJ 100 ML IV SCH ×2 (08:45→21:28)
[2016-11-02] MEDS: RIVAROXABAN 20 MG TAB PO SCH (08:46)
[2016-11-02] MEDS: PREGABALIN 75 MG CAP PO SCH (08:46)
[2016-11-02] MEDS: DOCUSATE SODIUM 50 MG/SENNA 8.6 MG TAB PO SCH ×2 (08:46→21:29)
[2016-11-02] MEDS ORDERED: INFLUENZA VIRUS VACCINE (QUADRIVALENT) 0.5 ML SYR IM ONE (10:00)
[2016-11-02] MEDS: ONDANSETRON HCL 4 MG/2 ML VIAL IV PRN ×2 (14:28→23:06)
--- NOTE | 2016-11-02 14:28 | HHI.PR ---
Subjective Remarks The patient was on BiPAP. She said she was breathing better. She wanted to know much longer she would have to be in the hospital. She said she has not been ambulating much. She has been having bowel movements. Discussed with nursing. Objective Vitals Vital Signs Date Time Temp Pulse Resp B/P Pulse Ox O2 Delivery O2 Flow Rate FiO2 11/02/16 10:20 96 Partial Non-Rebreather 12.00 11/02/16 10:06 94 Partial Rebreather 12.00 11/02/16 10:00 105 11/02/16 08:15 Venturi Mask 50 11/02/16 08:00 96 11/02/16 08:00 97.9 90 18 124/72 94 11/02/16 07:00 94 Bi-Pap 50 11/02/16 06:00 86 11/02/16 04:00 96 11/02/16 04:00 98.4 96 27 118/83 92 11/02/16 03:30 94 45 11/02/16 02:00 102 11/02/16 00:27 92 50 11/02/16 00:00 96 11/02/16 00:00 99.9 96 26 127/71 91 11/01/16 22:00 119 11/01/16 20:52 92 45 11/01/16 20:42 92 Partial Rebreather 15.00 11/01/16 20:00 104 11/01/16 20:00 99.7 104 30 138/66 90 11/01/16 19:00 92 Partial Non-Rebreather 13.00 11/01/16 16:00 99.1 111 22 143/60 93 11/01/16 16:00 111 I/O 11/01/16 11/01/16 11/01/16 11/02/16 11/02/16 11/02/16 07:00 15:00 23:00 07:00 15:00 23:00 Intake Total 355 ml 528 ml 532 ml 373 ml Output Total 250 ml 150 ml 175 ml 200 ml Balance 105 ml 378 ml 357 ml 173 ml Intake Oral 120 ml 360 ml 240 ml 210 ml IV Total 235 ml 168 ml 292 ml 163 ml Output Urine Total 250 ml 150 ml 175 ml 200 ml # Bowel Movements 0 Result Diagram: 11/02/16 0332 11/02/16 [address] Angiography 10/31/16 1610 Signed Impressions: Service Date/Time: Monday, October 31, 2016 17:31 - CONCLUSION: 1. Consolidative changes in both lung bases worse on the left than the right. 2. There is no evidence for central pulmonary emboli. Joseph Baeza MD FACR Chest X-Ray 10/31/16 1404 Signed Impressions: Service Date/Time: Monday, October 31, 2016 14:03 - CONCLUSION: 1. Increased density at the left base representing a combination of suspected large effusion and left lower lobe atelectasis or consolidation. 2. Milder area of consolidation or atelectasis at the right base. 3. Cardiomegaly. Perry Frye MD Objective Remarks GENERAL: Morbidly obese female on BiPAP. HEENT: Normocephalic. Atraumatic. NECK: Supple. Airway widely patent. CHEST: Distant breath sounds. Diminished breath sounds more on the left than the right. CARDIOVASCULAR: Tachycardic, irregularly irregular rhythm. No appreciable murmurs. ABDOMEN: Morbidly obese, soft, nontender, nondistended. No guarding. BS active. MUSCULOSKELETAL: 1+ peripheral edema. Distal pulses 2+. NEUROLOGICAL: O X 3, alert. Follows commands in all 4 extremities. No gross focal motor or sensory deficits. PSYCH: Mood and affect appropriate. Medications and IVs Current Medications Medications (Trade) Dose Ordered Sig/Mirta Route Start Time Stop Time Status Last Admin (SoluMEDROL INJ) 60 mg Q6HR IV PUSH 11/01/16 00:00 11/02/16 11:30 Magnesium Oxide 800 mg 800 mg UNSCH PRN PO 10/31/16 20:00 Magnesium Sulfate 4 gm/Sodium Chloride 100 ml @ 50 mls/hr UNSCH PRN IV 10/31/16 20:00 Magnesium Sulfate 2 gm/Sodium Chloride 100 ml @ 50 mls/hr UNSCH PRN IV 10/31/16 20:00 Potassium Chloride 100 ml @ 50 mls/hr Q2H PRN IV 10/31/16 20:00 Potassium Chloride 100 ml @ 50 mls/hr Q2H PRN IV 10/31/16 20:00 Potassium Chloride 100 ml @ 50 mls/hr Q2H PRN IV 10/31/16 20:00 (KCl 40 Meq Premix Inj) 100 ml @ 25 mls/hr UNSCH PRN IV 10/31/16 20:00 (KCl 40 Meq/30 ml Liq) 40 meq UNSCH PRN PO/TUBE 10/31/16 20:00 (KCl 40 Meq/30 ml Liq) 40 meq UNSCH PRN PO/TUBE 10/31/16 20:00 (K-Phos) 2,000 mg Q4H PRN PO 10/31/16 20:00 Potassium Phosphate 2000 mg 2,000 mg UNSCH PRN PO/TUBE 10/31/16 20:00 Potassium Phosphate 30 mmol/ Sodium Chloride 260 ml @ 42 mls/hr UNSCH PRN IV 10/31/16 20:00 (Sodium Phosphate Inj/NS 250 ml Inj) 250 ml @ 42 mls/hr UNSCH PRN IV 10/31/16 20:00 (D50w (Vial) Inj) 25 ml UNSCH PRN IV PUSH 10/31/16 20:00 (NS Flush) 2 ml UNSCH PRN IV FLUSH 10/31/16 20:00 (NS Flush) 2 ml BID IV FLUSH 10/31/16 21:00 11/02/16 08:45 (Zofran Inj) 4 mg Q6H PRN IV 10/31/16 20:00 11/02/16 14:28 (Zelda-Colace) 2 tab BID PO 10/31/16 21:00 11/02/16 08:46 Miscellaneous Information 1 Q361D XX 10/31/16 20:00 (Chlorhexidine 2% Cloth) 3 pack Taper DAILY@04 TOP 11/01/16 04:00 10/28/17 03:59 11/02/16 04:00 Chlorhexidine Gluconate 3 pack 3 pack UNSCH PRN TOP 10/31/16 20:00 (Zithromax Inj/ NS 250 ml Inj) 250 ml @ 250 mls/hr Q24H IV 11/01/16 22:00 11/01/16 21:13 (Breo Ellipta 100-25 Inh) 1 puff DAILY INH 11/01/16 09:00 11/02/16 08:45 (Lyrica) 75 mg DAILY PO 11/01/16 09:00 11/02/16 08:46 (Xarelto) 20 mg DAILY PO 11/01/16 09:00 11/02/16 08:46 (Protonix Inj) 40 mg Q24H IV PUSH 11/01/16 00:00 11/01/16 23:14 (Cardizem) 60 mg Q6HR PO 11/01/16 12:00 11/02/16 11:30 Guaifenesin/ Dextromethorphan 5 ml 5 ml Q4H PRN PO 11/01/16 11:30 11/01/16 20:48 Cefepime HCl 2000 mg/Sodium Chloride 100 ml @ 200 mls/hr Q12H IV 11/02/16 20:00 (NS 1000 ml Inj) 1,000 ml @ 75 mls/hr [id number] IV 11/02/16 14:30 11/03/16 03:49 Current Medications Medications (Trade) Dose Ordered Sig/Mirta Route Start Time Stop Time Status Last Admin (SoluMEDROL INJ) 60 mg Q6HR IV PUSH 11/01/16 00:00 11/02/16 11:30 Magnesium Oxide 800 mg 800 mg UNSCH PRN PO 10/31/16 20:00 Magnesium Sulfate 4 gm/Sodium Chloride 100 ml @ 50 mls/hr UNSCH PRN IV 10/31/16 20:00 Magnesium Sulfate 2 gm/Sodium Chloride 100 ml @ 50 mls/hr UNSCH PRN IV 10/31/16 20:00 Potassium Chloride 100 ml @ 50 mls/hr Q2H PRN IV 10/31/16 20:00 Potassium Chloride 100 ml @ 50 mls/hr Q2H PRN IV 10/31/16 20:00 Potassium Chloride 100 ml @ 50 mls/hr Q2H PRN IV 10/31/16 20:00 (KCl 40 Meq Premix Inj) 100 ml @ 25 mls/hr UNSCH PRN IV 10/31/16 20:00 (KCl 40 Meq/30 ml Liq) 40 meq UNSCH PRN PO/TUBE 10/31/16 20:00 (KCl 40 Meq/30 ml Liq) 40 meq UNSCH PRN PO/TUBE 10/31/16 20:00 (K-Phos) 2,000 mg Q4H PRN PO 10/31/16 20:00 Potassium Phosphate 2000 mg 2,000 mg UNSCH PRN PO/TUBE 10/31/16 20:00 Potassium Phosphate 30 mmol/ Sodium Chloride 260 ml @ 42 mls/hr UNSCH PRN IV 10/31/16 20:00 (Sodium Phosphate Inj/NS 250 ml Inj) 250 ml @ 42 mls/hr UNSCH PRN IV 10/31/16 20:00 (D50w (Vial) Inj) 25 ml UNSCH PRN IV PUSH 10/31/16 20:00 (NS Flush) 2 ml UNSCH PRN IV FLUSH 10/31/16 20:00 (NS Flush) 2 ml BID IV FLUSH 10/31/16 21:00 11/02/16 08:45 (Zofran Inj) 4 mg Q6H PRN IV 10/31/16 20:00 (Zelda-Colace) 2 tab BID PO 10/31/16 21:00 11/02/16 08:46 Miscellaneous Information 1 Q361D XX 10/31/16 20:00 (Chlorhexidine 2% Cloth) 3 pack Taper DAILY@04 TOP 11/01/16 04:00 10/28/17 03:59 11/02/16 04:00 Chlorhexidine Gluconate 3 pack 3 pack UNSCH PRN TOP 10/31/16 20:00 (Zithromax Inj/ NS 250 ml Inj) 250 ml @ 250 mls/hr Q24H IV 11/01/16 22:00 11/01/16 21:13 (Breo Ellipta 100-25 Inh) 1 puff DAILY INH 11/01/16 09:00 11/02/16 08:45 (Lyrica) 75 mg DAILY PO 11/01/16 09:00 11/02/16 08:46 (Xarelto) 20 mg DAILY PO 11/01/16 09:00 11/02/16 08:46 (Protonix Inj) 40 mg Q24H IV PUSH 11/01/16 00:00 11/01/16 23:14 (Cardizem) 60 mg Q6HR PO 11/01/16 12:00 11/02/16 11:30 Guaifenesin/ Dextromethorphan 5 ml 5 ml Q4H PRN PO 11/01/16 11:30 11/01/16 20:48 (Maxipime Inj/NS Inj) 100 ml @ 200 mls/hr Q12H IV 11/02/16 20:00 A/P Assessment and Plan Acute hypercarbic and hypoxic respiratory failure CO2 markedly elevated per report. CT with consolidative changes at both lung bases, worse on the left. Currently on a partial NRB. - follow culture data. - continue azithromycin and cefepime. - continue Solumedrol. - standing and as needed Duonebs. - pulmonology consult requested. - incentive spirometry. - PT/OT. Atrial fibrillation with rapid ventricular response HR still elevated. - increase diltiazem to 90 mg QID. - Continue home Xarelto. - telemetry. Acute renal insufficiency The pt has a history of renal insufficiency. - hold home Lasix and give IVFs. - follow BMP and avoid nephrotoxic agents. Hyperglycemia May be a stress reaction. - HgbA1c pending. PPx: Xarelto. Discharge Planning Awaiting clinical improvement. Chintan Nguyen DO Nov 02, 2016 14:28
[2016-11-02] MEDS ORDERED: SODIUM CHLOR 0.9% 1000 ML INJ 1,000 ML IV SCH (14:30)
--- NOTE | 2016-11-02 17:25 | MB ---
cc: JOSE DAVID MAIN M.D. DATE OF CONSULTATION 11/02/16 REASON FOR CONSULTATION Respiratory failure. HISTORY OF PRESENT ILLNESS Mrs. Boone is a 66-year-old female who presented to the hospital with increasing shortness of breath and pleuritic chest pain with associated significant hypoxemia requiring BiPap therapy. The patient is morbidly obese and her ABG revealed severe respiratory acidosis. She continues to be on BiPap therapy at present, lethargic but arousable, does not relate further history. The history is obtained from her record. PAST MEDICAL HISTORY 1. Chronic obstructive pulmonary disease and/or bronchial asthma 2. Atrial fibrillation, 3. Hypertension, 4. Hyperlipidemia 5. Acid reflux 6. Previous appendectomy 7. Hernia repair. ALLERGIES PENICILLIN MEDICATIONS At home 1. Amlodipine. 2. Lasix. 3. Metoprolol 4. Xarelto 5. Breo 6. Ellipta 7. DuoNeb p.r.n. ALLERGIES PENICILLIN FAMILY HISTORY Noncontributory. REVIEW OF SYSTEMS 12-point review of systems as per HPI and past history otherwise negative. SOCIAL HISTORY Does not smoke or drink at present. PHYSICAL EXAMINATION VITAL SIGNS: Temperature 98, pulse 100, respiration 20, blood pressure 136/80, oxygen saturation 96% on 50% inspired oxygen fraction. HEENT: Exam unremarkable. Eyes without icterus. NECK: Without adenopathy or thyroid enlargement. Central trachea. CHEST: No dullness to percussion, clear to auscultation. CARDIAC: Distant cardiac sounds, S1-S2 audible. No murmur or rub. ABDOMEN: Obese, lax, bowel sounds audible. EXTREMITIES: No clubbing, cyanosis or edema. IMAGING STUDIES CT angiogram upon presentation with consolidation at both lung bases, more so on the left. No evidence of pulmonary emboli identified. LABORATORY DATA White count 14,000, hemoglobin 13, hematocrit 41. Sodium 138, potassium 5.1, BUN 28, creatinine 1.3. ABG - pH 7.25, pCO2 71, pO2 67. Upon presentation, pH 7.16, pCO2 99, pO2 of 78. IMPRESSION 1. Hypoxic hypercarbic respiratory failure 2. Morbid obesity, question obesity hypoventilation obstructive sleep apnea 3. COPD and/or bronchial asthma and exacerbation 4. Question pneumonia. PLAN The patient will be maintained on BiPap therapy as needed. Antibiotic therapy on empiric basis would be appropriate. Chest x-ray, arterial blood gas will be followed. When possible post discharge, polysomnographic evaluation for underlying sleep disordered breathing would be appropriate. Bronchodilator therapy has been initiated and appropriately so as well as steroid therapy. We will follow the patient's course along with you and depending on progress proceed further. I do thank you for asking to partake in Mrs. Boone's care. Jose David Main MD WWW/ /4:48 PM /5:10 PM
[2016-11-02] MEDS: DILTIAZEM HCL 90 MG TAB PO SCH ×2 (17:42→23:10)
[2016-11-02] MEDS: AZITHROMYCIN INJ 500 MG in SODIUM CHLOR 0.9% 250 ML INJ 250 ML IV SCH (22:17)
[2016-11-02 22:37] LABS: HEMOGLOBIN A1a 1.4 %; HEMOGLOBIN A1b 1.2 %; HEMOGLOBIN Ao 85.6 %; HEMOGLOBIN LA1C 0.8 %; HEMOGLOBIN P3 3.6 %
[2016-11-02] MEDS: PANTOPRAZOLE SODIUM 40 MG VIAL IV PUSH SCH (23:06)
[2016-11-03] VITALS (17 sets, daily range): BP systolic 115–141; BP diastolic 61–87; PULSE 80–104; RESP 14–28; TEMP 98.2–98.8; O2SAT 63–95
[2016-11-03] MEDS: RESP: ALBUTEROL 2.5 MG/IPRATROPIUM 0.5 MG NEB (SCH) INH ×7 (00:06→23:34)
[2016-11-03] MEDS: INSULIN NovoLIN REGULAR SUPPLEMENTAL SCALE SQ SCH ×5 (03:00→21:11)
[2016-11-03] MEDS: CHLORHEXIDINE GLUCONATE 2 % 1 PACK (2 CLOTHS) TOP SCH (04:00)
[2016-11-03 04:04] LABS: HEMATOCRIT 41.6 % (35.0-46.0); MEAN CELL VOLUME 89.7 FL (80.0-100.0); MEAN CORPUSCULAR HEMOGLOBIN 28.9 PG (27.0-34.0); MEAN CORPUSCULAR HGB CONC 32.2 % (32.0-36.0); PLATELET COUNT 242 TH/MM3 (150-450); RED BLOOD COUNT 4.64 MIL/MM3 (4.00-5.30); RED CELL DISTRIBUTION WIDTH 14.2 % (11.6-17.2); REVIEW FLAG FINAL; WHITE BLOOD COUNT 16.1 TH/MM3 (4.0-11.0)
[2016-11-03] MEDS ORDERED: CYCLOBENZAPRINE HCL 10 MG TAB PO ONE (04:15)
[2016-11-03 04:21] LABS: BICARBONATE 28.3 MEQ/L (21.0-32.0); MAGNESIUM 1.8 MG/DL (1.5-2.5); POTASSIUM 5.3 MEQ/L (3.5-5.1)
[2016-11-03] MEDS: methylPREDNISolone SOD SUCC 125 MG/2 ML VIAL IV PUSH SCH ×4 (05:07→23:51)
[2016-11-03] MEDS: DILTIAZEM HCL 90 MG TAB PO SCH ×4 (05:07→23:51)
[2016-11-03] MEDS: RIVAROXABAN 20 MG TAB PO SCH (08:28)
[2016-11-03] MEDS: CEFEPIME INJ 2,000 MG in SODIUM CHLORIDE 0.9% INJ 100 ML IV SCH ×2 (08:28→21:12)
[2016-11-03] MEDS: DOCUSATE SODIUM 50 MG/SENNA 8.6 MG TAB PO SCH ×2 (08:28→21:11)
[2016-11-03] MEDS: SODIUM CHLORIDE 0.9% FLUSH 5 ML FLUSH IV FLUSH SCH ×2 (08:30→21:12)
[2016-11-03] MEDS: FLUTICASONE 100 MCG/VILANTEROL 25 MCG INHALER INH SCH (08:30)
[2016-11-03] MEDS: PREGABALIN 75 MG CAP PO SCH ×2 (08:54→21:11)
[2016-11-03] MEDS ORDERED: SODIUM POLYSTYRENE SULFONATE SUSP 15 GM/60 ML CUP PO ONE (14:45)
--- NOTE | 2016-11-03 15:06 | HHI.PR ---
Subjective Remarks The pt was resting in bed. She requested that her Lyrica be increased. She said she would like to get out of bed. She has been tolerating a diet. She was interested in pursuing rehab. Objective Vitals Vital Signs Date Time Temp Pulse Resp B/P Pulse Ox O2 Delivery O2 Flow Rate FiO2 11/03/16 14:00 104 11/03/16 12:16 93 50 11/03/16 12:00 98 11/03/16 12:00 98.6 87 18 122/87 92 11/03/16 10:00 102 11/03/16 08:19 95 11/03/16 08:00 98.4 89 18 127/67 95 11/03/16 08:00 89 11/03/16 07:00 93 Bi-Pap 50 11/03/16 06:00 80 11/03/16 04:11 92 50 11/03/16 04:00 86 11/03/16 04:00 98.8 86 28 135/78 63 11/03/16 02:00 80 11/03/16 00:00 80 11/03/16 00:00 98.6 100 17 115/68 94 11/02/16 22:30 98 50 11/02/16 22:00 112 11/02/16 20:32 93 50 11/02/16 20:00 98.2 114 18 139/97 94 11/02/16 20:00 114 11/02/16 19:00 94 Bi-Pap 50 11/02/16 18:00 96 11/02/16 16:17 95 50 11/02/16 16:00 122 11/02/16 16:00 98.8 122 18 125/78 93 I/O 11/02/16 11/02/16 11/02/16 11/03/16 11/03/16 11/03/16 07:00 15:00 23:00 07:00 15:00 23:00 Intake Total 373 ml 586 ml 642 ml 964 ml 1126 ml Output Total 200 ml 350 ml 275 ml 225 ml 400 ml Balance 173 ml 236 ml 367 ml 739 ml 726 ml Intake Oral 210 ml 480 ml 240 ml 240 ml 500 ml IV Total 163 ml 106 ml 402 ml 724 ml 626 ml Output Urine Total 200 ml 350 ml 275 ml 225 ml 400 ml Result Diagram: 11/03/16 0318 11/03/16 [address] Angiography 10/31/16 1610 Signed Impressions: Service Date/Time: Monday, October 31, 2016 17:31 - CONCLUSION: 1. Consolidative changes in both lung bases worse on the left than the right. 2. There is no evidence for central pulmonary emboli. Joseph Baeza MD FACR Chest X-Ray 10/31/16 1404 Signed Impressions: Service Date/Time: Monday, October 31, 2016 14:03 - CONCLUSION: 1. Increased density at the left base representing a combination of suspected large effusion and left lower lobe atelectasis or consolidation. 2. Milder area of consolidation or atelectasis at the right base. 3. Cardiomegaly. Perry Frye MD Objective Remarks GENERAL: Morbidly obese female in NAD. HEENT: Normocephalic. Atraumatic. NECK: Supple. Airway widely patent. CHEST: Distant breath sounds with mild wheezing. CARDIOVASCULAR: Tachycardic, irregularly irregular rhythm. No appreciable murmurs. ABDOMEN: Morbidly obese, soft, nontender, nondistended. No guarding. BS active. MUSCULOSKELETAL: 1+ peripheral edema. Distal pulses 2+. NEUROLOGICAL: O X 3, alert. Follows commands in all 4 extremities. No gross focal motor or sensory deficits. PSYCH: Mood and affect appropriate. Medications and IVs Current Medications Medications (Trade) Dose Ordered Sig/Mirta Route Start Time Stop Time Status Last Admin (SoluMEDROL INJ) 60 mg Q6HR IV PUSH 11/01/16 00:00 11/03/16 11:17 Magnesium Oxide 800 mg 800 mg UNSCH PRN PO 10/31/16 20:00 Magnesium Sulfate 4 gm/Sodium Chloride 100 ml @ 50 mls/hr UNSCH PRN IV 10/31/16 20:00 Magnesium Sulfate 2 gm/Sodium Chloride 100 ml @ 50 mls/hr UNSCH PRN IV 10/31/16 20:00 Potassium Chloride 100 ml @ 50 mls/hr Q2H PRN IV 10/31/16 20:00 Potassium Chloride 100 ml @ 50 mls/hr Q2H PRN IV 10/31/16 20:00 Potassium Chloride 100 ml @ 50 mls/hr Q2H PRN IV 10/31/16 20:00 (KCl 40 Meq Premix Inj) 100 ml @ 25 mls/hr UNSCH PRN IV 10/31/16 20:00 (KCl 40 Meq/30 ml Liq) 40 meq UNSCH PRN PO/TUBE 10/31/16 20:00 (KCl 40 Meq/30 ml Liq) 40 meq UNSCH PRN PO/TUBE 10/31/16 20:00 (K-Phos) 2,000 mg Q4H PRN PO 10/31/16 20:00 Potassium Phosphate 2000 mg 2,000 mg UNSCH PRN PO/TUBE 10/31/16 20:00 Potassium Phosphate 30 mmol/ Sodium Chloride 260 ml @ 42 mls/hr UNSCH PRN IV 10/31/16 20:00 (Sodium Phosphate Inj/NS 250 ml Inj) 250 ml @ 42 mls/hr UNSCH PRN IV 10/31/16 20:00 (D50w (Vial) Inj) 25 ml UNSCH PRN IV PUSH 10/31/16 20:00 (NS Flush) 2 ml UNSCH PRN IV FLUSH 10/31/16 20:00 (NS Flush) 2 ml BID IV FLUSH 10/31/16 21:00 11/03/16 08:30 (Zofran Inj) 4 mg Q6H PRN IV 10/31/16 20:00 11/02/16 23:06 (Zelda-Colace) 2 tab BID PO 10/31/16 21:00 11/03/16 08:28 Miscellaneous Information 1 Q361D XX 10/31/16 20:00 (Chlorhexidine 2% Cloth) 3 pack Taper DAILY@04 TOP 11/01/16 04:00 10/28/17 03:59 11/03/16 04:00 Chlorhexidine Gluconate 3 pack 3 pack UNSCH PRN TOP 10/31/16 20:00 (Zithromax Inj/ NS 250 ml Inj) 250 ml @ 250 mls/hr Q24H IV 11/01/16 22:00 11/02/16 22:17 (Breo Ellipta 100-25 Inh) 1 puff DAILY INH 11/01/16 09:00 11/03/16 08:30 (Lyrica) 75 mg DAILY PO 11/01/16 09:00 11/03/16 08:54 (Protonix Inj) 40 mg Q24H IV PUSH 11/01/16 00:00 11/02/16 23:06 Guaifenesin/ Dextromethorphan 5 ml 5 ml Q4H PRN PO 11/01/16 11:30 11/01/16 20:48 (Maxipime Inj/NS Inj) 100 ml @ 200 mls/hr Q12H IV 11/02/16 20:00 11/03/16 08:28 (Cardizem) 90 mg Q6HR PO 11/02/16 18:00 11/03/16 11:17 (Xarelto) 15 mg DAILY PO 11/04/16 09:00 A/P Assessment and Plan Acute hypercarbic and hypoxic respiratory failure CO2 markedly elevated per report. CT with consolidative changes at both lung bases, worse on the left. Currently on a partial NRB. - follow culture data. - continue azithromycin and cefepime. - continue Solumedrol. Wean as tolerated. - standing and as needed Duonebs. - pulmonology consult appreciated. - incentive spirometry. - PT/OT. - BiPAP as needed. Repeat ABG 11/03. Atrial fibrillation with rapid ventricular response HR improved 11/03. - increased diltiazem to 90 mg QID. - Continue home Xarelto. - telemetry. Acute renal insufficiency/ hyperkalemia The pt has a history of renal insufficiency. - hold home Lasix and give IVFs. Improved 11/03. - Kayexalate 11/03 for hyperkalemia. - follow BMP and avoid nephrotoxic agents. Hyperglycemia May be a stress reaction and exacerbated by steroids. A1c not elevated. - wean steroids. Fibromyalgia The pt requested an increase of her Lyrica. - increase Lyrica to 75 mg in AM, 150 mg HS. - Flexeril as needed. Morbid obesity The pt is rather sedentary. - increase activity. - PT/OT. - CM consult for placement. - dietary consult. PPx: Xarelto. Discharge Planning Awaiting clinical improvement. Chintan Nguyen DO Nov 03, 2016 15:06
[2016-11-03 15:49] LABS: BLOOD GAS BASE EXCESS 1.5 mmol/L (-2-2); BLOOD GAS CARBOXYHEMOGLOBIN 1.2 % (0-4); BLOOD GAS HCO3 28 mmol/L (22-26); BLOOD GAS METHEMOGLOBIN 0.8 % (0-2); BLOOD GAS O2 HGB SATURATION 92 % (90-100); BLOOD GAS OXYGEN CONTENT 18.3 Vol % (12.0-20.0); BLOOD GAS PCO2 68 mmHg (38-42); BLOOD GAS PO2 78 mmHg (61-120); BLOOD GAS TOTAL HGB 14.1 G/DL (12.0-16.0); TEMP CORR TO 98.6
[2016-11-03 15:51] LABS: CRITICAL VALUE YES; DRAW SITE RT RADIAL; LITER FLOW 6 L/M; NUMBER OF ARTERIAL PUNCTURES 1; OXYGEN DEVICE NASAL CANNULA; STAT NO; ULNAR PULSE PRESENT
[2016-11-03] MEDS: AZITHROMYCIN INJ 500 MG in SODIUM CHLOR 0.9% 250 ML INJ 250 ML IV SCH (21:53)
[2016-11-03] MEDS: PANTOPRAZOLE SODIUM 40 MG VIAL IV PUSH SCH (23:51)
[2016-11-04] VITALS (20 sets, daily range): BP systolic 111–124; BP diastolic 55–72; PULSE 78–96; RESP 13–22; TEMP 97.2–98.7; O2SAT 89–96
[2016-11-04] MEDS: INSULIN NovoLIN REGULAR SUPPLEMENTAL SCALE SQ SCH ×5 (03:00→19:55)
[2016-11-04] MEDS: RESP: ALBUTEROL 2.5 MG/IPRATROPIUM 0.5 MG NEB (SCH) INH ×6 (03:39→23:51)
[2016-11-04] MEDS: CHLORHEXIDINE GLUCONATE 2 % 1 PACK (2 CLOTHS) TOP SCH (04:00)
[2016-11-04] MEDS: DILTIAZEM HCL 90 MG TAB PO SCH ×4 (05:52→23:32)
[2016-11-04] MEDS: methylPREDNISolone SOD SUCC 125 MG/2 ML VIAL IV PUSH SCH ×2 (05:52→11:14)
[2016-11-04 06:33] LABS: BICARBONATE 28.2 MEQ/L (21.0-32.0)
[2016-11-04 07:35] LABS: HEMATOCRIT 42.9 % (35.0-46.0); MEAN CELL VOLUME 90.1 FL (80.0-100.0); MEAN CORPUSCULAR HEMOGLOBIN 28.2 PG (27.0-34.0); MEAN CORPUSCULAR HGB CONC 31.3 % (32.0-36.0); PLATELET COUNT 215 TH/MM3 (150-450); RED BLOOD COUNT 4.77 MIL/MM3 (4.00-5.30); RED CELL DISTRIBUTION WIDTH 14.3 % (11.6-17.2); REVIEW FLAG FINAL; WHITE BLOOD COUNT 11.2 TH/MM3 (4.0-11.0)
[2016-11-04] MEDS: CEFEPIME INJ 2,000 MG in SODIUM CHLORIDE 0.9% INJ 100 ML IV SCH ×2 (08:18→19:54)
[2016-11-04] MEDS: FLUTICASONE 100 MCG/VILANTEROL 25 MCG INHALER INH SCH (08:18)
[2016-11-04] MEDS: SODIUM CHLORIDE 0.9% FLUSH 5 ML FLUSH IV FLUSH SCH ×2 (08:19→19:55)
[2016-11-04] MEDS: PREGABALIN 75 MG CAP PO SCH ×2 (08:19→19:54)
[2016-11-04] MEDS: DOCUSATE SODIUM 50 MG/SENNA 8.6 MG TAB PO SCH ×2 (08:19→19:55)
[2016-11-04] MEDS: RIVAROXABAN 15 MG TAB PO SCH (08:19)
[2016-11-04] MEDS ORDERED: LACTULOSE SYRUP 20 GM/30 ML CUP PO ONE (12:45)
--- NOTE | 2016-11-04 12:49 | HHI.PR ---
Subjective Remarks The patient was wearing a BiPAP mask. She said she was feeling a little bit better. She would like to get up to the chair today. She still has not had a bowel movement. She says her breathing is overall improved. Discussed with nursing. Objective Vitals Vital Signs Date Time Temp Pulse Resp B/P Pulse Ox O2 Delivery O2 Flow Rate FiO2 11/04/16 12:16 92 50 11/04/16 12:00 97.3 79 17 117/72 95 11/04/16 12:00 79 11/04/16 11:53 96 45 11/04/16 10:00 87 11/04/16 09:35 94 Nasal Cannula 6.00 11/04/16 08:20 92 Aerosol Mask 8.00 11/04/16 08:00 78 11/04/16 08:00 97.2 87 16 113/63 95 11/04/16 07:00 95 Bi-Pap 50 11/04/16 06:00 93 11/04/16 04:14 94 50 11/04/16 04:00 82 11/04/16 04:00 97.3 82 13 118/70 93 11/04/16 02:00 92 11/04/16 01:12 94 50 11/04/16 00:00 88 11/04/16 00:00 98.2 88 15 124/60 93 11/03/16 22:00 89 11/03/16 20:56 91 50 11/03/16 20:00 98.2 93 18 141/83 93 11/03/16 20:00 93 11/03/16 19:00 96 Bi-Pap 50 11/03/16 18:00 99 11/03/16 16:54 95 50 11/03/16 16:00 98.2 84 14 127/61 95 11/03/16 16:00 104 11/03/16 14:00 104 I/O 11/03/16 11/03/16 11/03/16 11/04/16 11/04/16 11/04/16 07:00 15:00 23:00 07:00 15:00 23:00 Intake Total 964 ml 1126 ml 1290 ml 579 ml Output Total 225 ml 400 ml 950 ml 350 ml Balance 739 ml 726 ml 340 ml 229 ml Intake Oral 240 ml 500 ml 360 ml 120 ml IV Total 724 ml 626 ml 930 ml 459 ml Output Urine Total 225 ml 400 ml 950 ml 350 ml Result Diagram: 11/04/16 0505 11/04/16 [address] Angiography 10/31/16 1610 Signed Impressions: Service Date/Time: Monday, October 31, 2016 17:31 - CONCLUSION: 1. Consolidative changes in both lung bases worse on the left than the right. 2. There is no evidence for central pulmonary emboli. Joseph Baeza MD FACR Chest X-Ray 10/31/16 1404 Signed Impressions: Service Date/Time: Monday, October 31, 2016 14:03 - CONCLUSION: 1. Increased density at the left base representing a combination of suspected large effusion and left lower lobe atelectasis or consolidation. 2. Milder area of consolidation or atelectasis at the right base. 3. Cardiomegaly. Perry Frye MD Objective Remarks GENERAL: Morbidly obese female in [facility]. HEENT: Normocephalic. Atraumatic. NECK: Supple. Airway widely patent. CHEST: Distant breath sounds with mild wheezing. CARDIOVASCULAR: Irregularly irregular rhythm. No appreciable murmurs. ABDOMEN: Morbidly obese, soft, nontender, nondistended. No guarding. BS active. MUSCULOSKELETAL: 1-2+ peripheral edema. Distal pulses 2+. NEUROLOGICAL: O X 3, alert. Follows commands in all 4 extremities. No gross focal motor or sensory deficits. PSYCH: Mood and affect appropriate. Medications and IVs Current Medications Medications (Trade) Dose Ordered Sig/Mirta Route Start Time Stop Time Status Last Admin Magnesium Oxide 800 mg 800 mg UNSCH PRN PO 10/31/16 20:00 Magnesium Sulfate 4 gm/Sodium Chloride 100 ml @ 50 mls/hr UNSCH PRN IV 10/31/16 20:00 Magnesium Sulfate 2 gm/Sodium Chloride 100 ml @ 50 mls/hr UNSCH PRN IV 10/31/16 20:00 Potassium Chloride 100 ml @ 50 mls/hr Q2H PRN IV 10/31/16 20:00 Potassium Chloride 100 ml @ 50 mls/hr Q2H PRN IV 10/31/16 20:00 Potassium Chloride 100 ml @ 50 mls/hr Q2H PRN IV 10/31/16 20:00 (KCl 40 Meq Premix Inj) 100 ml @ 25 mls/hr UNSCH PRN IV 10/31/16 20:00 (KCl 40 Meq/30 ml Liq) 40 meq UNSCH PRN PO/TUBE 10/31/16 20:00 (KCl 40 Meq/30 ml Liq) 40 meq UNSCH PRN PO/TUBE 10/31/16 20:00 (K-Phos) 2,000 mg Q4H PRN PO 10/31/16 20:00 Potassium Phosphate 2000 mg 2,000 mg UNSCH PRN PO/TUBE 10/31/16 20:00 Potassium Phosphate 30 mmol/ Sodium Chloride 260 ml @ 42 mls/hr UNSCH PRN IV 10/31/16 20:00 (Sodium Phosphate Inj/NS 250 ml Inj) 250 ml @ 42 mls/hr UNSCH PRN IV 10/31/16 20:00 (D50w (Vial) Inj) 25 ml UNSCH PRN IV PUSH 10/31/16 20:00 (NS Flush) 2 ml UNSCH PRN IV FLUSH 10/31/16 20:00 (NS Flush) 2 ml BID IV FLUSH 10/31/16 21:00 11/04/16 08:19 (Zofran Inj) 4 mg Q6H PRN IV 10/31/16 20:00 11/02/16 23:06 (Zelda-Colace) 2 tab BID PO 10/31/16 21:00 11/04/16 08:19 Miscellaneous Information 1 Q361D XX 10/31/16 20:00 (Chlorhexidine 2% Cloth) 3 pack Taper DAILY@04 TOP 11/01/16 04:00 10/28/17 03:59 11/04/16 04:00 Chlorhexidine Gluconate 3 pack 3 pack UNSCH PRN TOP 10/31/16 20:00 (Zithromax Inj/ NS 250 ml Inj) 250 ml @ 250 mls/hr Q24H IV 11/01/16 22:00 11/03/16 21:53 (Breo Ellipta 100-25 Inh) 1 puff DAILY INH 11/01/16 09:00 11/04/16 08:18 (Lyrica) 75 mg DAILY PO 11/01/16 09:00 11/04/16 08:19 (Protonix Inj) 40 mg Q24H IV PUSH 11/01/16 00:00 11/03/16 23:51 Guaifenesin/ Dextromethorphan 5 ml 5 ml Q4H PRN PO 11/01/16 11:30 11/01/16 20:48 (Maxipime Inj/NS Inj) 100 ml @ 200 mls/hr Q12H IV 11/02/16 20:00 11/04/16 08:18 (Cardizem) 90 mg Q6HR PO 11/02/16 18:00 11/04/16 11:14 (Xarelto) 15 mg DAILY PO 11/04/16 09:00 11/04/16 08:19 (Lyrica) 150 mg HS PO 11/03/16 21:00 11/03/16 21:11 (Lactulose Liq) 30 ml ONCE ONCE PO 11/04/16 12:45 11/04/16 12:46 UNV (SoluMEDROL INJ) 40 mg BID IV PUSH 11/04/16 21:00 UNV A/P Assessment and Plan Acute hypercarbic and hypoxic respiratory failure CO2 markedly elevated per report. CT with consolidative changes at both lung bases, worse on the left. The pt uses BiPAP intermittently. Repeat ABG 11/03 slightly improved. - follow culture data. - continue azithromycin and cefepime. - continue Solumedrol. Wean to BID dosing 11/04. - standing and as needed Duonebs. - pulmonology consult appreciated. - incentive spirometry. - PT/OT. - BiPAP as needed. - repeat CXR 11/04. Atrial fibrillation with rapid ventricular response HR improved 11/04. - increased diltiazem to 90 mg QID. - Continue home Xarelto. - telemetry. Acute renal insufficiency/ hyperkalemia The pt has a history of renal insufficiency. Improved. - follow BMP and avoid nephrotoxic agents. - resume Lasix when appropriate. Hyperglycemia May be a stress reaction and exacerbated by steroids. A1c not elevated. - wean steroids. Fibromyalgia The pt requested an increase of her Lyrica. - increase Lyrica to 75 mg in AM, 150 mg HS. - Flexeril as needed. Morbid obesity The pt is rather sedentary. - increase activity. - PT/OT. - CM consult for placement. - dietary consult. UTI Urine culture growing klebsiella. - continue antibiotics. PPx: Xarelto. Discharge Planning Transfer to the floor. Chintan Nguyen DO Nov 04, 2016 12:49
--- NOTE | 2016-11-04 15:13 | RADRPT ---
EXAM DATE/TIME: 11/04/2016 14:48 [facility] COMPARISON: CT PULMONARY ANGIOGRAM, October 31, 2016, 17:31. CHEST SINGLE AP, October 31, 2016, 14:03. INDICATIONS : Short of breath. MEDICAL HISTORY : Afib. SURGICAL HISTORY : None. ENCOUNTER: Subsequent ACUITY: 1 week PAIN SCORE: 2/10 LOCATION: Left chest FINDINGS: Portable AP view of the chest demonstrates complete opacification of the left hemithorax with leftwar d shift of the mediastinum. There is a right basilar pleural-parenchymal opacity. No pneumothorax is visualized. Bones and soft tissues demonstrate no acute finding. CONCLUSION: 1. There is now complete opacification left hemithorax likely secondary to pleural effusion as well a s significant volume loss/lung collapse. 2. Increase in size of the right pleural effusion since the prior exam. Perry Kessler MD on November 04, 2016 at 15:11 Board Certified Radiologist. This report was verified electronically.
[2016-11-04] MEDS: methylPREDNISolone SOD SUCC 40 MG/1 ML VIAL IV PUSH SCH (19:54)
[2016-11-04] MEDS: AZITHROMYCIN INJ 500 MG in SODIUM CHLOR 0.9% 250 ML INJ 250 ML IV SCH (22:08)
[2016-11-05] VITALS (19 sets, daily range): BP systolic 87–134; BP diastolic 45–63; PULSE 70–100; RESP 14–16; TEMP 96.8–98.1; O2SAT 90–100
[2016-11-05 03:46] LABS: HEMATOCRIT 41.3 % (35.0-46.0); MEAN CELL VOLUME 89.6 FL (80.0-100.0); MEAN CORPUSCULAR HEMOGLOBIN 28.8 PG (27.0-34.0); MEAN CORPUSCULAR HGB CONC 32.1 % (32.0-36.0); PLATELET COUNT 189 TH/MM3 (150-450); RED CELL DISTRIBUTION WIDTH 14.1 % (11.6-17.2); REVIEW FLAG FINAL; WHITE BLOOD COUNT 10.1 TH/MM3 (4.0-11.0)
[2016-11-05] MEDS: RESP: ALBUTEROL 2.5 MG/IPRATROPIUM 0.5 MG NEB (SCH) INH ×6 (03:47→23:40)
[2016-11-05 04:27] LABS: BICARBONATE 31.1 MEQ/L (21.0-32.0)
[2016-11-05 04:29] LABS: POTASSIUM 5.5 MEQ/L (3.5-5.1)
[2016-11-05] MEDS: INSULIN NovoLIN REGULAR SUPPLEMENTAL SCALE SQ SCH ×5 (04:37→21:16)
[2016-11-05] MEDS: CHLORHEXIDINE GLUCONATE 2 % 1 PACK (2 CLOTHS) TOP SCH (04:38)
[2016-11-05] MEDS: DILTIAZEM HCL 90 MG TAB PO SCH ×3 (07:11→18:00)
[2016-11-05] MEDS: methylPREDNISolone SOD SUCC 40 MG/1 ML VIAL IV PUSH SCH ×2 (08:41→19:50)
[2016-11-05] MEDS: SODIUM CHLORIDE 0.9% FLUSH 5 ML FLUSH IV FLUSH SCH ×2 (08:42→19:50)
[2016-11-05] MEDS: PREGABALIN 75 MG CAP PO SCH ×2 (08:42→20:09)
[2016-11-05] MEDS: PANTOPRAZOLE SOD 40 MG DELAYED RELEASE TAB PO SCH (08:42)
[2016-11-05] MEDS: FLUTICASONE 100 MCG/VILANTEROL 25 MCG INHALER INH SCH (08:42)
[2016-11-05] MEDS: DOCUSATE SODIUM 50 MG/SENNA 8.6 MG TAB PO SCH ×2 (08:42→19:49)
[2016-11-05] MEDS: RIVAROXABAN 15 MG TAB PO SCH (08:42)
[2016-11-05] MEDS: CEFEPIME INJ 2,000 MG in SODIUM CHLORIDE 0.9% INJ 100 ML IV SCH ×2 (08:42→20:08)
[2016-11-05] MEDS ORDERED: Vancomycin Consult Pharmacy 1 EA OTHER SCH (09:00)
[2016-11-05] MEDS: FUROSEMIDE 40 MG/4 ML VIAL IV PUSH SCH ×2 (09:00→18:00)
[2016-11-05] MEDS ORDERED: PROPOFOL 1000 MG/100 ML INJ 100 ML ONE (09:33)
[2016-11-05] MEDS ORDERED: PROPOFOL 500 MG/50 ML INJ 50 ML ONE (09:33)
--- NOTE | 2016-11-05 09:33 | HHI.PR ---
Subjective Remarks The patient was having increased shortness of breath. She was on a BiPAP. She already discussed and agreed to intubation with the car spotter. Discussed with nursing and intensivists. Objective Vitals Vital Signs Date Time Temp Pulse Resp B/P Pulse Ox O2 Delivery O2 Flow Rate FiO2 11/05/16 08:07 95 BiPAP 50 11/05/16 08:07 92 50 11/05/16 08:00 82 11/05/16 08:00 97.7 82 14 94/56 95 11/05/16 07:00 93 Bi-Pap 50 11/05/16 06:00 89 11/05/16 04:28 96 50 11/05/16 04:00 88 11/05/16 04:00 97.7 88 14 98/62 96 11/05/16 02:00 83 11/05/16 01:17 92 50 11/05/16 00:00 72 11/05/16 00:00 98.1 72 16 90/52 90 11/04/16 22:00 86 11/04/16 22:00 92 Bi-Pap 50 11/04/16 20:55 91 50 11/04/16 20:11 90 Nasal Cannula 6.00 11/04/16 20:00 92 11/04/16 20:00 98.7 92 22 115/63 89 11/04/16 19:00 97 Nasal Cannula 5.00 11/04/16 18:00 90 11/04/16 16:00 89 11/04/16 16:00 97.9 96 16 111/55 92 11/04/16 14:00 82 11/04/16 12:16 92 50 11/04/16 12:00 97.3 79 17 117/72 95 11/04/16 12:00 79 11/04/16 11:53 96 45 11/04/16 10:00 87 11/04/16 09:35 94 Nasal Cannula 6.00 I/O 11/04/16 11/04/16 11/04/16 11/05/16 11/05/16 11/05/16 07:00 15:00 23:00 07:00 15:00 23:00 Intake Total 579 ml 941 ml 626 ml 691 ml Output Total 350 ml 550 ml 975 ml 425 ml Balance 229 ml 391 ml -349 ml 266 ml Intake Oral 120 ml 600 ml 480 ml 120 ml IV Total 459 ml 341 ml 146 ml 571 ml Output Urine Total 350 ml 550 ml 975 ml 425 ml # Bowel Movements 0 0 Result Diagram: 11/05/16 0246 11/05/16 0246 Imaging Last Impressions Chest X-Ray 11/04/16 0000 Signed Impressions: Service Date/Time: Friday, November 04, 2016 14:48 - CONCLUSION: 1. There is now complete opacification left hemithorax likely secondary to pleural effusion as well as significant volume loss/lung collapse. 2. Increase in size of the right pleural effusion since the prior exam. Perry Kessler MD CT Angiography 10/31/16 1610 Signed Impressions: Service Date/Time: Monday, October 31, 2016 17:31 - CONCLUSION: 1. Consolidative changes in both lung bases worse on the left than the right. 2. There is no evidence for central pulmonary emboli. Joseph Baeza MD FACR Objective Remarks GENERAL: Morbidly obese female in respiratory distress. HEENT: Normocephalic. Atraumatic. NECK: Supple. Airway widely patent. CHEST: Tachypnea, on BiPAP, wheezing appreciated. CARDIOVASCULAR: Irregularly irregular rhythm. No appreciable murmurs. ABDOMEN: Morbidly obese, soft, nontender, nondistended. No guarding. BS active. MUSCULOSKELETAL: 1-2+ peripheral edema. Distal pulses 2+. NEUROLOGICAL: O X 3, alert. Follows commands in all 4 extremities. No gross focal motor or sensory deficits. PSYCH: Slightly anxious. Medications and IVs Current Medications Medications (Trade) Dose Ordered Sig/Mirta Route Start Time Stop Time Status Last Admin Magnesium Oxide 800 mg 800 mg UNSCH PRN PO 10/31/16 20:00 Magnesium Sulfate 4 gm/Sodium Chloride 100 ml @ 50 mls/hr UNSCH PRN IV 10/31/16 20:00 Magnesium Sulfate 2 gm/Sodium Chloride 100 ml @ 50 mls/hr UNSCH PRN IV 10/31/16 20:00 Potassium Chloride 100 ml @ 50 mls/hr Q2H PRN IV 10/31/16 20:00 Potassium Chloride 100 ml @ 50 mls/hr Q2H PRN IV 10/31/16 20:00 Potassium Chloride 100 ml @ 50 mls/hr Q2H PRN IV 10/31/16 20:00 (KCl 40 Meq Premix Inj) 100 ml @ 25 mls/hr UNSCH PRN IV 10/31/16 20:00 (KCl 40 Meq/30 ml Liq) 40 meq UNSCH PRN PO/TUBE 10/31/16 20:00 (KCl 40 Meq/30 ml Liq) 40 meq UNSCH PRN PO/TUBE 10/31/16 20:00 (K-Phos) 2,000 mg Q4H PRN PO 10/31/16 20:00 Potassium Phosphate 2000 mg 2,000 mg UNSCH PRN PO/TUBE 10/31/16 20:00 Potassium Phosphate 30 mmol/ Sodium Chloride 260 ml @ 42 mls/hr UNSCH PRN IV 10/31/16 20:00 (Sodium Phosphate Inj/NS 250 ml Inj) 250 ml @ 42 mls/hr UNSCH PRN IV 10/31/16 20:00 (D50w (Vial) Inj) 25 ml UNSCH PRN IV PUSH 10/31/16 20:00 (NS Flush) 2 ml UNSCH PRN IV FLUSH 10/31/16 20:00 (NS Flush) 2 ml BID IV FLUSH 10/31/16 21:00 11/05/16 08:42 (Zofran Inj) 4 mg Q6H PRN IV 10/31/16 20:00 11/02/16 23:06 (Zelda-Colace) 2 tab BID PO 10/31/16 21:00 11/05/16 08:42 Miscellaneous Information 1 Q361D XX 10/31/16 20:00 (Chlorhexidine 2% Cloth) 3 pack Taper DAILY@04 TOP 11/01/16 04:00 10/28/17 03:59 11/05/16 04:38 Chlorhexidine Gluconate 3 pack 3 pack UNSCH PRN TOP 10/31/16 20:00 (Zithromax Inj/ NS 250 ml Inj) 250 ml @ 250 mls/hr Q24H IV 11/01/16 22:00 11/04/16 22:08 (Breo Ellipta 100-25 Inh) 1 puff DAILY INH 11/01/16 09:00 11/05/16 08:42 (Lyrica) 75 mg DAILY PO 11/01/16 09:00 11/05/16 08:42 Guaifenesin/ Dextromethorphan 5 ml 5 ml Q4H PRN PO 11/01/16 11:30 11/01/16 20:48 (Maxipime Inj/NS Inj) 100 ml @ 200 mls/hr Q12H IV 11/02/16 20:00 11/05/16 08:42 (Cardizem) 90 mg Q6HR PO 11/02/16 18:00 11/05/16 07:11 (Xarelto) 15 mg DAILY PO 11/04/16 09:00 11/05/16 08:42 (Lyrica) 150 mg HS PO 11/03/16 21:00 11/04/16 19:54 (SoluMEDROL INJ) 40 mg BID IV PUSH 11/04/16 21:00 11/05/16 08:41 (Protonix) 40 mg DAILY PO 11/05/16 09:00 11/05/16 08:42 Furosemide 40 mg 40 mg BID@09,18 IV PUSH 11/05/16 09:00 Vancomycin HCl 2250 mg/Sodium Chloride 522.5 ml @ 250 mls/hr Q12H IV 11/05/16 10:00 (Vancomycin Consult Pharmacy) 0 ml @ 0 mls/hr UNSCH OTHER 11/05/16 09:00 A/P Assessment and Plan Acute hypercarbic and hypoxic respiratory failure CO2 markedly elevated per report. CT with consolidative changes at both lung bases, worse on the left. The pt uses BiPAP intermittently. Repeat ABG 11/03 slightly improved. CXR 11/04 showed: complete opacification left hemithorax likely secondary to pleural effusion as well as significant volume loss/lung collapse; Increase in size of the right pleural effusion since the prior exam. Mine Safety Director consulted. - car spotter planning for intubation. - follow culture data. - continue azithromycin and cefepime. Add vancomycin 11/05. - continue Solumedrol. - standing and as needed Duonebs. - pulmonology consult appreciated. - incentive spirometry. - PT/OT. - Lasix 40 mg IV BID. - consult IR for thoracentesis. Atrial fibrillation with rapid ventricular response HR stable 11/05. - increased diltiazem to 90 mg QID. - Continue home Xarelto. - telemetry. Acute renal insufficiency/ hyperkalemia The pt has a history of renal insufficiency. Improved. - follow BMP and avoid nephrotoxic agents. - resume Lasix when appropriate. Hyperglycemia May be a stress reaction and exacerbated by steroids. A1c not elevated. - wean steroids when appropriate. Fibromyalgia The pt requested an increase of her Lyrica. - increase Lyrica to 75 mg in AM, 150 mg HS. - Flexeril as needed. Morbid obesity The pt is rather sedentary. - increase activity. - PT/OT. - CM consult for placement. - dietary consult. UTI Urine culture growing klebsiella. - continue antibiotics. PPx: Xarelto. Discharge Planning Awaiting clinical improvement. Chintan Nguyen DO Nov 05, 2016 09:33
[2016-11-05] MEDS ORDERED: ROCURONIUM INJ 50 MG/5 ML VIAL ONE (09:34)
--- NOTE | 2016-11-05 09:41 | HHI.CCPN ---
Subjective Remarks/Hospital Course This is a 66yF with history of a fib and o2 dependent COPD and morbid obesity who presents with 1 day history of pleuritic chest pain and shortness of breath , found to be more hypoxic than usual on her home o2. initial ABG per report to me in the ED (not in the EMR) was pH 7.1 pco2 99. The patient was placed on BiPAP. The patient was initially given Rocephin and azithromycin iv. Pertinent labs are a wbc 12.7, bicarb 33, bnp 124. Critical care medicine is consulted for evaluation and management of her hypoxic and hypercarbic respiratory failure. 11/01: Much improved respiratory comfort today. The complete atelectasis of the LLL is worrisome, but probably chronic. She does not act infected. 11/05: Worsening hypoxemia and left lung is now completely atelectatic. She will need intubation and bronchoscopy. Objective Vital Signs Date Time Temp Pulse Resp B/P Pulse Ox O2 Delivery O2 Flow Rate FiO2 11/05/16 08:07 95 BiPAP 50 11/05/16 08:00 82 11/05/16 08:00 97.7 14 94/56 11/04/16 20:11 6.00 Intake and Output 11/04/16 11/04/16 11/05/16 08:00 16:00 00:00 Intake Total 579 ml 941 ml 626 ml Output Total 350 ml 550 ml 975 ml Balance 229 ml 391 ml -349 ml Result Diagram: 11/05/16 0246 11/05/[address] angiography 10/31: Negative for pulmonary embolism. Evidence of left lower lobe consolidation. Small left pleural effusion. Objective Remarks GENERAL: Morbidly obese Middle-aged female. HEENT: Normocephalic. Atraumatic. NECK: Supple. Airway widely patent. CHEST: Labored and tachypneic. No breath sounds left side. CARDIOVASCULAR: Controlled rate, irregularly irregular rhythm. No appreciable murmurs. ABDOMEN: Morbidly obese, soft, nontender, nondistended. No guarding. BS active. MUSCULOSKELETAL: 1+ peripheral edema. Distal pulses 2+. NEUROLOGICAL: O X 3, alert. Anxious.Follows commands in all 4 extremities. No gross focal motor or sensory deficits. A/P Assessment and Plan Active problems: Acute hypercarbic and hypoxic respiratory failure Community-acquired pneumonia COPD exacerbation Atrial fibrillation with rapid ventricular response Plan: TIntubate. PRVC vent mode. Bronchoscopy. Continue azithromycin - Cefepime given her history of severe COPD for improved pseudomonal coverage --Duonebs q4h and q2h prn Convert to oral diltiazem. Continue home Xarelto and SCDs for DVT prophylaxis Protonix for GERD and GI prophylaxis -Sputum culture Assessment: This is a 66-year-old female with history of oxygen dependent COPD, morbid obesity, permanent atrial fibrillation who presents with A. fib with rapid ventricular response, COPD exacerbation, community-acquired pneumonia. She is alert and oriented for now. CO2 retention probably not far from baseline but oxygenation now severely compromised. She is critically ill and will require immediate intubation and mechanical ventilation. Critical care 44 mins aside from procedures Colin Moralez MD Nov 05, 2016 09:41
[2016-11-05] MEDS ORDERED: ROCURONIUM INJ 100 MG/10 ML VIAL IV ONE (09:45)
[2016-11-05] MEDS ORDERED: ETOMIDATE 40 MG/20 ML VIAL IV PUSH ONE (09:45)
[2016-11-05] MEDS ORDERED: GLYCOPYRROLATE 0.2 MG/ML VIAL IV ONE (09:45)
[2016-11-05] MEDS ORDERED: VANCOMYCIN INJ 2,250 MG in SODIUM CHLORID 0.9% 500 ML INJ 500 ML IV SCH (10:00)
--- NOTE | 2016-11-05 10:48 | RADRPT ---
EXAM DATE/TIME: 11/05/2016 10:08 [facility] COMPARISON: CT PULMONARY ANGIOGRAM, October 31, 2016, 17:31. CHEST SINGLE AP, November 04, 2016, 14:48. INDICATIONS : Evaluate ET tube placement. MEDICAL HISTORY : None. SURGICAL HISTORY : None. ENCOUNTER: Initial ACUITY: 1 day PAIN SCORE: Non-responsive. LOCATION: chest FINDINGS: Rotated AP view of the chest demonstrates complete opacification the left hemithorax with leftward sh ift of the mediastinal structures. The patient is intubated and distal tip of the endotracheal tube m easures approximately 4.3 cm from the makeda. NG tube is present and courses beyond the GE junction. There is also diffuse hazy opacity overlying the right mid and lower lung zone. No pneumothorax is vi sualized. CONCLUSION: 1. Continued complete opacification of the left hemithorax with leftward shift of the mediastinum. Sl ightly represents left lung collapse/volume loss with some degree of pleural effusion. Mucous pluggin g or other causes of bronchial obstruction should be considered. 2. Persistent right pleural effusion. Perry Kessler MD on November 05, 2016 at 10:44 Board Certified Radiologist. This report was verified electronically.
--- NOTE | 2016-11-05 11:02 | PD.PROCEDR ---
Procedure Note Procedure Endotracheal Intubation Diagnosis: Acute hypoxic respiratory failure Indications: Same Consent: Obtained from patient Anesthesia: Propofol 200 mg, fentanyl 100 mcgs, rocuronium 100 mg Description of the Procedure: The patient was positioned in the sniffing position. Pre-oxygenation was performed using a 100% BVM. Anesthesia was induced via rapid sequence. A Glidescope 4was used for laryngoscopy and a Grade 1view was obtained. A 8.0 cuffed endotracheal tube was inserted atraumatically through the vocal cords. Confirmation of correct endotracheal tube placement was made by equal and bilateral breath sounds and colorimetric CO2 detection. The endotracheal tube was secured at 20 cm at the teeth. There were no immediate complications noted. The patient remained hemodynamically stable throughout the procedure. A chest x-ray has been ordered. I personally performed the procedure. Amelia Sánchez MD Nov 05, 2016 11:02
--- NOTE | 2016-11-05 11:03 | PD.PROCEDR ---
Procedure Note Procedure Procedure: Fiberoptic Bronchoscopy Diagnosis: Left lung collapse Indications: Hypoxia Consent: Obtained from patient Anesthesia: Propofol infusion Description of the Procedure: The patient was sedated and mechanically ventilated. The patient was placed on 100% FIO2 and a volume control mode of ventilation. The fiberoptic bronchoscopy was inserted via [ ]. The trachea, right and left mainstem bronchi, and sub-segmental bronchi were evaluated. The endobronchial anatomy was normal. Findings: Take viscous mucus plugging BAL samples: 1 The patient tolerated the procedure well with no hemodynamic instability or hypoxia. There were no immediate complications noted. At the conclusion of the procedure, the patient was placed back on their pre-procedure ventilatory settings. There was minimal EBL. A chest x-ray has been ordered. I personally performed the procedure. Amelia Sánchez MD Nov 05, 2016 11:03
[2016-11-05] MEDS: PROPOFOL 1000 MG/100 ML INJ 100 ML IV SCH ×5 (12:00→23:15)
[2016-11-05] MEDS ORDERED: VANCOMYCIN INJ 2,000 MG in SODIUM CHLORID 0.9% 500 ML INJ 500 ML IV SCH (12:00)
[2016-11-05 12:31] LABS: ALKALINE PHOSPHATASE 69 U/L (45-117); TOTAL BILIRUBIN ADULT 0.4 MG/DL (0.2-1.0)
[2016-11-05 12:32] LABS: ALT (GPT) 34 U/L (10-53); AST (GOT) 34 U/L (15-37); INDIRECT BILIRUBIN 0.3 MG/DL (0.0-0.8); LDH SERUM 325 U/L (84-246)
--- NOTE | 2016-11-05 14:39 | RADRPT ---
EXAM DATE/TIME: 11/05/2016 14:03 [facility] COMPARISON: CHEST SINGLE AP, November 05, 2016, 10:08. INDICATIONS : Post fiberoptic bronchoscopy. MEDICAL HISTORY : None. SURGICAL HISTORY : None. ENCOUNTER: Initial ACUITY: 1 day PAIN SCORE: Non-responsive. LOCATION: Bilateral chest FINDINGS: 2 portable AP views of the chest demonstrate persistent diffuse opacification of the left hemithorax. Endotracheal tube is present. There is hazy opacity overlying the right lung. No pneumothorax is jeff ntified. CONCLUSION: Stable appearance of the chest with complete opacification of the left hemithorax and hazy opacity ov erlying the right lung. Perry Kessler MD on November 05, 2016 at 14:37 Board Certified Radiologist. This report was verified electronically.
[2016-11-05 15:28] LABS: BLOOD GAS BASE EXCESS 6.6 mmol/L (-2-2); BLOOD GAS CARBOXYHEMOGLOBIN 1.2 % (0-4); BLOOD GAS HCO3 31 mmol/L (22-26); BLOOD GAS METHEMOGLOBIN 0.8 % (0-2); BLOOD GAS O2 HGB SATURATION 98 % (90-100); BLOOD GAS OXYGEN CONTENT 17.5 Vol % (12.0-20.0); BLOOD GAS PCO2 48 mmHg (38-42); BLOOD GAS PO2 210 mmHg (61-120); BLOOD GAS TOTAL HGB 12.4 G/DL (12.0-16.0); CRITICAL VALUE NO; OXYGEN DEVICE VENTILATOR; TEMP CORR TO 98.6
[2016-11-05 15:29] LABS: DRAW SITE RT BRACHIAL; FIO2 100 %; NUMBER OF ARTERIAL PUNCTURES 1; STAT NO; VENT SETTINGS 550/16/+5/0.90
[2016-11-05] MEDS: RESP: ACETYLCYSTEINE 20% 30 ML NEB NEB SCH ×2 (16:00→20:13)
[2016-11-05] MEDS ORDERED: GELATIN 12 MM/7 MM FOAM ONE (17:35)
--- NOTE | 2016-11-05 17:51 | HHI.CCPN ---
History - Height: 165.1 cm Weight: 183.7 kg Allergies: Coded Allergies: Penicillin (Verified Allergy, Severe, 05/01/16) Major 24 Hour Events The patient is S/P intubation with Glidescope 4 and removal of upper dentures. Small amount of bleeding noted right posterior buccal fold area after intubation and removal of dentures, earlier this morning. The patient's medication regimen includes Xarelto. The patient has continued to have a slow area of bleeding with some clots being removed through out the day. CBC to be drawn at [place]. Type and cross ordered, will transfuse if Hgb < 7.0. The patient remains hemodynamically stable.Will continue to monitor. Results CBC/BMP: 11/05/16 0246 11/05/16 0246 Micro/ID Microbiology Date/Time Procedure Status Source Growth 11/05/16 11:00 Gram Stain Received Fluid Pleural Fluid Pending 11/05/16 11:00 Body Fluid Culture Received Fluid Pleural Fluid Pending 11/01/16 06:40 Urine Culture - Final Complete Urine Catheterized Urine NO GROWTH IN 48 HOURS. 10/31/16 20:10 Aerobic Blood Culture - Final Complete Blood Peripheral NO GROWTH IN 5 DAYS 10/31/16 20:10 Anaerobic Blood Culture - Final Complete Blood Peripheral NO GROWTH IN 5 DAYS Assessment/Plan Assessment/Plan - Monitor serial CBC Transfuse if Hgb < 7gm/dl Place gel foam to site Amelia Sánchez MD Nov 05, 2016 17:51
[2016-11-05] MEDS ORDERED: TRANEXAMIC ACID IV ONE (19:45)
[2016-11-05] MEDS ORDERED: SODIUM CHLORIDE 0.9% IV ONE (19:45)
[2016-11-05] MEDS: CHLORHEXIDINE 0.12% (ORAL KIT) 15 ML CUP MT SCH (19:50)
[2016-11-05] MEDS: AZITHROMYCIN INJ 500 MG in SODIUM CHLOR 0.9% 250 ML INJ 250 ML IV SCH (20:08)
--- NOTE | 2016-11-05 20:21 | RADRPT ---
EXAM DATE/TIME: 11/05/2016 19:56 [facility] COMPARISON: CHEST SINGLE AP, November 05, 2016, 14:03. INDICATIONS : Shortness of breath, possible pulmonary disease. MEDICAL HISTORY : None. SURGICAL HISTORY : None. ENCOUNTER: Subsequent ACUITY: 1 day PAIN SCORE: Non-responsive. LOCATION: Bilateral chest FINDINGS: This study is underexposed. This may be secondary to the patient's body habitus. There is total opa cification of the left hemithorax. This was present previously. There also continues to be hazy den sity seen at the mid and lower right lung. The patient appears to be intubated. CONCLUSION: 1. Persistent total opacification of the left hemithorax. This was present previously. 2. Milder hazy density at the mid and lower right lung which is stable. Perry Frye MD on November 05, 2016 at 20:14 Board Certified Radiologist. This report was verified electronically.
[2016-11-05] MEDS: SODIUM CHLOR 0.9% 1000 ML INJ 1,000 ML IV SCH (23:07)
[2016-11-06] VITALS (20 sets, daily range): BP systolic 89–112; BP diastolic 50–70; PULSE 76–117; RESP 12–20; TEMP 97.2–99.3; O2SAT 90–97
[2016-11-06 00:25] LABS: INTERNATIONAL NORMALIZED RATIO 1.2 RATIO; PROTHROMBIN TIME - PATIENT 13.7 SEC (9.8-11.6)
[2016-11-06 00:27] LABS: HEMATOCRIT 33.3 % (35.0-46.0); MEAN CELL VOLUME 87.7 FL (80.0-100.0); MEAN CORPUSCULAR HEMOGLOBIN 28.2 PG (27.0-34.0); MEAN CORPUSCULAR HGB CONC 32.2 % (32.0-36.0); PLATELET COUNT 173 TH/MM3 (150-450); RED CELL DISTRIBUTION WIDTH 13.6 % (11.6-17.2); REVIEW FLAG FINAL; WHITE BLOOD COUNT 11.1 TH/MM3 (4.0-11.0)
[2016-11-06] MEDS: PROPOFOL 1000 MG/100 ML INJ 100 ML IV SCH ×8 (01:53→23:44)
[2016-11-06] MEDS: INSULIN NovoLIN REGULAR SUPPLEMENTAL SCALE SQ SCH ×5 (03:00→21:35)
[2016-11-06] MEDS: RESP: ACETYLCYSTEINE 20% 30 ML NEB NEB SCH ×4 (03:57→20:33)
[2016-11-06] MEDS: RESP: ALBUTEROL 2.5 MG/IPRATROPIUM 0.5 MG NEB (SCH) INH ×5 (03:57→20:33)
[2016-11-06] MEDS: CHLORHEXIDINE GLUCONATE 2 % 1 PACK (2 CLOTHS) TOP SCH (04:00)
[2016-11-06] MEDS: DILTIAZEM HCL 90 MG TAB PO SCH ×5 (06:00→23:44)
[2016-11-06 06:51] LABS: BICARBONATE 31.5 MEQ/L (21.0-32.0); POTASSIUM 4.5 MEQ/L (3.5-5.1)
[2016-11-06] MEDS: CHLORHEXIDINE 0.12% (ORAL KIT) 15 ML CUP MT SCH ×2 (07:58→20:07)
[2016-11-06] MEDS: FUROSEMIDE 40 MG/4 ML VIAL IV PUSH SCH (07:58)
[2016-11-06] MEDS: SODIUM CHLORIDE 0.9% FLUSH 5 ML FLUSH IV FLUSH SCH ×2 (07:58→20:07)
[2016-11-06] MEDS: CEFEPIME INJ 2,000 MG in SODIUM CHLORIDE 0.9% INJ 100 ML IV SCH (07:58)
[2016-11-06] MEDS: methylPREDNISolone SOD SUCC 40 MG/1 ML VIAL IV PUSH SCH (07:58)
[2016-11-06] MEDS: DOCUSATE SODIUM 50 MG/SENNA 8.6 MG TAB PO SCH ×2 (07:59→20:06)
[2016-11-06] MEDS: PREGABALIN 75 MG CAP PO SCH ×2 (07:59→20:06)
[2016-11-06] MEDS: RIVAROXABAN 15 MG TAB PO SCH (07:59)
[2016-11-06 08:31] LABS: HEMATOCRIT 33.2 % (35.0-46.0); MEAN CELL VOLUME 86.5 FL (80.0-100.0); MEAN CORPUSCULAR HGB CONC 32.4 % (32.0-36.0); PLATELET COUNT 203 TH/MM3 (150-450); RED BLOOD COUNT 3.84 MIL/MM3 (4.00-5.30); RED CELL DISTRIBUTION WIDTH 13.4 % (11.6-17.2); REVIEW FLAG FINAL
[2016-11-06] MEDS: PANTOPRAZOLE SOD 40 MG DELAYED RELEASE TAB PO SCH (09:00)
[2016-11-06] MEDS: FLUTICASONE 100 MCG/VILANTEROL 25 MCG INHALER INH SCH (09:00)
[2016-11-06] MEDS: SODIUM CHLOR 0.9% 1000 ML INJ 1,000 ML IV SCH ×2 (09:15→20:15)
--- NOTE | 2016-11-06 09:32 | RADRPT ---
EXAM DATE/TIME: 11/06/2016 08:30 [facility] COMPARISON: CHEST SINGLE AP, November 05, 2016, 19:56. INDICATIONS : Post central line placement MEDICAL HISTORY : None. SURGICAL HISTORY : None. ENCOUNTER: Subsequent ACUITY: 2 days PAIN SCORE: Non-responsive. LOCATION: Bilateral chest FINDINGS: The heart is not well visualized do to opacification of the left hemithorax. There is large left pleu ral effusion with consolidation of the left lung. There is hyperinflation of the right lung. The ET t ube and central line appear in good position. There is a nasogastric tube present. The overall appear ance of the chest is stable compared to the previous examination dated 11/05/16 CONCLUSION: 1. Complete opacification of the left hemithorax. Stable compared to previous exam. 2. New right subclavian central line which appears in satisfactory position. Jorge Baeza MD on November 06, 2016 at 9:28 Board Certified Radiologist. This report was verified electronically.
--- NOTE | 2016-11-06 09:37 | HHI.CCPN ---
Subjective Remarks/Hospital Course This is a 66yF with history of a fib and o2 dependent COPD and morbid obesity who presents with 1 day history of pleuritic chest pain and shortness of breath , found to be more hypoxic than usual on her home o2. initial ABG per report to me in the ED (not in the EMR) was pH 7.1 pco2 99. The patient was placed on BiPAP. The patient was initially given Rocephin and azithromycin iv. Pertinent labs are a wbc 12.7, bicarb 33, bnp 124. Critical care medicine is consulted for evaluation and management of her hypoxic and hypercarbic respiratory failure. 11/01: Much improved respiratory comfort today. The complete atelectasis of the LLL is worrisome, but probably chronic. She does not act infected. 11/05: Worsening hypoxemia and left lung is now completely atelectatic. She will need intubation and bronchoscopy. 11/06: Bronch yesterday but left ling still collapsed. Will bronch daily until cleared and open. Objective Vital Signs Date Time Temp Pulse Resp B/P Pulse Ox O2 Delivery O2 Flow Rate FiO2 11/06/16 08:32 93 80 11/06/16 06:00 86 11/06/16 04:00 98.6 16 110/58 11/05/16 08:07 BiPAP 11/04/16 20:11 6.00 Intake and Output 11/05/16 11/05/16 11/06/16 08:00 16:00 00:00 Intake Total 691 ml 342 ml 1370 ml Output Total 425 ml 1300 ml 2300 ml Balance 266 ml -958 ml -930 ml Result Diagram: 11/06/16 0600 11/06/16 0600 Other Results Laboratory Tests Test 11/05/16 15:13 Blood Gas Puncture Site RT BRACHIAL Blood Gas Patient Temperature 98.6 Blood Gas HCO3 31 mmol/L (22-26) Blood Gas Base Excess 6.6 mmol/L (-2-2) Blood Gas Oxygen Saturation 98 % (90-100) Arterial Blood pH 7.43 (7.380-7.420) Arterial Blood Partial 48 mmHg (38-42) Pressure CO2 Arterial Blood Partial 210 mmHg Pressure O2 (61-120) Arterial Blood Oxygen Content 17.5 Vol % (12.0-20.0) Arterial Blood 1.2 % (0-4) Carboxyhemoglobin Arterial Blood Methemoglobin 0.8 % (0-2) Blood Gas Hemoglobin 12.4 G/DL (12.0-16.0) Oxygen Delivery Device VENTILATOR Blood Gas Ventilator Setting 550/16/+5/0.90 Blood Gas Inspired Oxygen 100 % Imaging CT angiography 10/31: Negative for pulmonary embolism. Evidence of left lower lobe consolidation. Small left pleural effusion. Objective Remarks GENERAL: Morbidly obese Middle-aged female. HEENT: Normocephalic. Atraumatic. NECK: Supple. Airway widely patent. CHEST: Clear right side. No breath sounds left side. CARDIOVASCULAR: Controlled rate 70 - 92, irregularly irregular rhythm. No appreciable murmurs. ABDOMEN: Morbidly obese, soft, nontender, nondistended. No guarding. BS active. MUSCULOSKELETAL: 1+ peripheral edema. Well perfused. NEUROLOGICAL: Intubated, sedated. Follows commands in all 4 extremities when light. No gross focal motor or sensory deficits. Opens eyes to stimulation. A/P Assessment and Plan Active problems: Acute hypercarbic and hypoxic respiratory failure Community-acquired pneumonia COPD exacerbation Atrial fibrillation with rapid ventricular response Plan: PRVC vent mode. Bronchoscopy daily d/c azithromycin - d/c Cefepime given her history of severe COPD for improved pseudomonal coverage --Duonebs q4h and q2h prn Convert to oral diltiazem. d/c Xarelto due to mouth bleeding. Protonix for GERD and GI prophylaxis -Sputum culture -Ceftriaxone for urine Klebsiella 11/06 X 5 days. Assessment: This is a 66-year-old female with history of oxygen dependent COPD, morbid obesity, permanent atrial fibrillation who presents with A. fib with rapid ventricular response, COPD exacerbation, community-acquired pneumonia. CO2 retention probably not far from baseline but oxygenation remained severely compromised. She is critically ill with hypoxemic respiratory failure and requires daily bronchoscopy and mechanical ventilation. She can't be weaned. Critical care 38 mins aside from procedures Colin Moralez MD Nov 06, 2016 09:37
--- NOTE | 2016-11-06 09:41 | PD.PROCEDR ---
Procedure Note Procedure DX: Hypoxemic Respiratory Failure (J96.01), Poor venous access. OP: 1. Insertion Rigfht Common Femoral Arterial Line (67939) 2. Insertion Right Subclavian Central Venous Line ([id number]) Procedure: Radial arteries not palpable. Right groin prepped and draped. Right common femoral artery cannulated with ultrasound guidance and wire advanced. 12 cm catheter passed over wire to hub and good waveform observed. Dressing applied. DP pulse right foot palpable after procedure. Right chest prepped and draped. Right subclavian vein cannuklated and wire advanced. Catheter passed over wire to 18 cm. Lumens aspirated and flushed. Dressing applied. CXR with line in good position, suitable for use. Colin Moralez MD Nov 06, 2016 09:40
[2016-11-06 10:09] LABS: BLOOD GAS BASE EXCESS 4.8 mmol/L (-2-2); BLOOD GAS CARBOXYHEMOGLOBIN 1.5 % (0-4); BLOOD GAS HCO3 27 mmol/L (22-26); BLOOD GAS METHEMOGLOBIN 0.8 % (0-2); BLOOD GAS O2 HGB SATURATION 95 % (90-100); BLOOD GAS OXYGEN CONTENT 13.6 Vol % (12.0-20.0); BLOOD GAS PCO2 29 mmHg (38-42); BLOOD GAS PO2 73 mmHg (61-120); BLOOD GAS TOTAL HGB 10.2 G/DL (12.0-16.0); CRITICAL VALUE YES; DRAW SITE ART LINE; FIO2 80 %; OXYGEN DEVICE VENTILATOR; STAT NO; TEMP CORR TO 98.6; VENT SETTINGS PRVC/AC
[2016-11-06] MEDS ORDERED: ROCURONIUM INJ 50 MG/5 ML VIAL ONE (10:25)
[2016-11-06] MEDS ORDERED: ETOMIDATE 20 MG/10 ML VIAL ONE (10:25)
[2016-11-06] MEDS ORDERED: PHENYLEPHRINE HCL 10 MG/ML VIAL ONE (10:26)
[2016-11-06] MEDS: cefTRIAXone INJ 1,000 MG in SODIUM CHLORIDE 0.9% INJ 100 ML IV SCH (11:32)
[2016-11-06] MEDS ORDERED: HEPARIN SODIUM - SQ 10,000 UNITS/ML VIAL SQ SCH (14:00)
--- NOTE | 2016-11-06 16:37 | PD.PROCEDR ---
Procedure Note Procedure DX: Hypoxemic Respiratory Failure (J96.01), Complete Atelectasis Left Lung. OP: Flexible Bronchoscopy, Diagnostic. Procedure: Scope delivered through elbow in vent circuit while on mechanical ventilation. Usual ICU monitoring in place. No secretions found in left tracheobronchial tree however the left main bronchus collapses comopletely on exhalation. This is minimized when PEEP is increased. DX: Tracheomalacia with collapse left mainstem bronchus, possible left atrium displacement. Colin Moralez MD Nov 06, 2016 16:37
[2016-11-06 17:28] LABS: BLOOD GAS BASE EXCESS 5.4 mmol/L (-2-2); BLOOD GAS CARBOXYHEMOGLOBIN 1.1 % (0-4); BLOOD GAS HCO3 30 mmol/L (22-26); BLOOD GAS METHEMOGLOBIN 0.9 % (0-2); BLOOD GAS O2 HGB SATURATION 95 % (90-100); BLOOD GAS OXYGEN CONTENT 15.1 Vol % (12.0-20.0); BLOOD GAS PCO2 47 mmHg (38-42); BLOOD GAS PO2 96 mmHg (61-120); BLOOD GAS TOTAL HGB 11.1 G/DL (12.0-16.0); CRITICAL VALUE NO; DRAW SITE RT RADIAL; FIO2 100 %; NUMBER OF ARTERIAL PUNCTURES 1; OXYGEN DEVICE VENTILATOR; STAT NO; TEMP CORR TO 98.6; ULNAR PULSE PRESENT; VENT SETTINGS PRVC/AC
[2016-11-06] MEDS: fentaNYL DRIP 250 ML IV SCH ×2 (17:56→20:06)
[2016-11-06] MEDS ORDERED: HEPARIN SODIUM - IV 10,000 UNITS/10 ML VIAL IV ONE (18:45)
[2016-11-06 19:43] LABS: APTT (PATIENT) 23.6 SEC (24.3-30.1); PROTHROMBIN TIME - PATIENT 11.6 SEC (9.8-11.6)
[2016-11-06] MEDS: HEPARIN-D5W INJ 250 ML IV SCH (20:45)
[2016-11-07] VITALS (18 sets, daily range): BP systolic 103–124; BP diastolic 52–80; PULSE 66–108; RESP 20; TEMP 96.4–99; O2SAT 94–100
[2016-11-07] MEDS: RESP: ALBUTEROL 2.5 MG/IPRATROPIUM 0.5 MG NEB (SCH) INH ×6 (00:15→19:36)
[2016-11-07] MEDS: PROPOFOL 1000 MG/100 ML INJ 100 ML IV SCH ×8 (01:47→23:33)
[2016-11-07 03:09] LABS: HEMATOCRIT 29.8 % (35.0-46.0); MEAN CELL VOLUME 85.7 FL (80.0-100.0); MEAN CORPUSCULAR HGB CONC 33.8 % (32.0-36.0); PLATELET COUNT 183 TH/MM3 (150-450); RED BLOOD COUNT 3.48 MIL/MM3 (4.00-5.30); RED CELL DISTRIBUTION WIDTH 13.8 % (11.6-17.2); REVIEW FLAG FINAL; WHITE BLOOD COUNT 17.9 TH/MM3 (4.0-11.0)
[2016-11-07 03:22] LABS: APTT (PATIENT) 86.1 SEC (24.3-30.1)
[2016-11-07 03:27] LABS: BICARBONATE 32.4 MEQ/L (21.0-32.0); POTASSIUM 4.3 MEQ/L (3.5-5.1)
[2016-11-07] MEDS: RESP: ACETYLCYSTEINE 20% 30 ML NEB NEB SCH ×4 (04:00→19:37)
[2016-11-07] MEDS: CHLORHEXIDINE GLUCONATE 2 % 1 PACK (2 CLOTHS) TOP SCH (04:00)
[2016-11-07] MEDS: DILTIAZEM HCL 90 MG TAB PO SCH ×4 (04:40→22:41)
[2016-11-07] MEDS: SODIUM CHLOR 0.9% 1000 ML INJ 1,000 ML IV SCH ×3 (04:40→23:33)
[2016-11-07] MEDS: INSULIN NovoLIN REGULAR SUPPLEMENTAL SCALE SQ SCH ×4 (04:40→23:00)
[2016-11-07 05:55] LABS: BLOOD GAS BASE EXCESS 5.2 mmol/L (-2-2); BLOOD GAS CARBOXYHEMOGLOBIN 2.1 % (0-4); BLOOD GAS HCO3 29 mmol/L (22-26); BLOOD GAS METHEMOGLOBIN 1.9 % (0-2); BLOOD GAS O2 HGB SATURATION 93 % (90-100); BLOOD GAS OXYGEN CONTENT 14.4 Vol % (12.0-20.0); BLOOD GAS PCO2 43 mmHg (38-42); BLOOD GAS PO2 89 mmHG (61-120); BLOOD GAS TOTAL HGB 10.9 G/DL (12.0-16.0); CRITICAL VALUE NO; FIO2 80 %; OXYGEN DEVICE VENTILATOR; TEMP CORR TO 98.6
[2016-11-07 05:56] LABS: DRAW SITE LT BRACHIAL; NUMBER OF ARTERIAL PUNCTURES 2; STAT NO; ULNAR PULSE PRESENT
--- NOTE | 2016-11-07 05:57 | RADRPT ---
EXAM DATE/TIME: 11/07/2016 04:58 [facility] COMPARISON: CHEST SINGLE AP, November 06, 2016, 8:30. INDICATIONS : Shortness of breath. MEDICAL HISTORY : Hypertension. Congestive heart failure. Hiatal hernia. SURGICAL HISTORY : None. ENCOUNTER: Subsequent ACUITY: 1 week PAIN SCORE: Non-responsive. LOCATION: Bilateral chest FINDINGS: The support devices remain in place. No evidence of pneumothorax. There continues to be complete opac ification of the left hemithorax with mediastinal shift to the left and volume loss. There is relativ dario good aeration of the right lung but no definite focal infiltrates. No significant change is seen compared to the prior examination. CONCLUSION: No interval change. Sanya Carter MD on November 07, 2016 at 5:54 Board Certified Radiologist. This report was verified electronically.
[2016-11-07] MEDS: CHLORHEXIDINE 0.12% (ORAL KIT) 15 ML CUP MT SCH ×2 (08:00→20:24)
[2016-11-07] MEDS: PANTOPRAZOLE SOD 40 MG DELAYED RELEASE TAB PO SCH (08:24)
[2016-11-07] MEDS: SODIUM CHLORIDE 0.9% FLUSH 5 ML FLUSH IV FLUSH SCH ×2 (08:24→20:23)
[2016-11-07] MEDS: FLUTICASONE 100 MCG/VILANTEROL 25 MCG INHALER INH SCH (08:24)
[2016-11-07] MEDS: PREGABALIN 75 MG CAP PO SCH ×2 (08:25→20:23)
[2016-11-07] MEDS: DOCUSATE SODIUM 50 MG/SENNA 8.6 MG TAB PO SCH ×2 (08:25→20:23)
[2016-11-07] MEDS: cefTRIAXone INJ 1,000 MG in SODIUM CHLORIDE 0.9% INJ 100 ML IV SCH (09:36)
[2016-11-07 09:38] LABS: APTT (PATIENT) 69.7 SEC (24.3-30.1)
[2016-11-07] MEDS: HEPARIN-D5W INJ 250 ML IV SCH ×2 (10:00→17:48)
[2016-11-07] MEDS ORDERED: PHARMACY ORDERED LAB XX ONE (11:45)
[2016-11-07 15:45] LABS: APTT (PATIENT) 62.7 SEC (24.3-30.1)
--- NOTE | 2016-11-07 17:00 | HHI.CCPN ---
Subjective Remarks/Hospital Course This is a 66yF with history of a fib and o2 dependent COPD and morbid obesity who presents with 1 day history of pleuritic chest pain and shortness of breath , found to be more hypoxic than usual on her home o2. initial ABG per report to me in the ED (not in the EMR) was pH 7.1 pco2 99. The patient was placed on BiPAP. The patient was initially given Rocephin and azithromycin iv. Pertinent labs are a wbc 12.7, bicarb 33, bnp 124. Critical care medicine is consulted for evaluation and management of her hypoxic and hypercarbic respiratory failure. 11/01: Much improved respiratory comfort today. The complete atelectasis of the LLL is worrisome, but probably chronic. She does not act infected. 11/05: Worsening hypoxemia and left lung is now completely atelectatic. She will need intubation and bronchoscopy. 11/06: Bronch yesterday but left ling still collapsed. Will bronch daily until cleared and open. 11/07: Bronch demonstrated tracheobronchiomalacia with collapse of left mainstem bronchus with each hard exhalation. Elevated mean airway pressure with elevated PEEP has not succeeded in "stenting" the airway open and left lung remains completely collapsed. Objective Vital Signs Date Time Temp Pulse Resp B/P Pulse Ox O2 Delivery O2 Flow Rate FiO2 11/07/16 16:00 98.1 104 20 124/58 99 11/07/16 16:00 70 11/05/16 08:07 BiPAP 11/04/16 20:11 6.00 Intake and Output 11/06/16 11/06/16 11/07/16 08:00 16:00 00:00 Intake Total 1142 ml 1421 ml 1073 ml Output Total 775 ml 1400 ml 250 ml Balance 367 ml 21 ml 823 ml Result Diagram: 11/07/16 0300 11/07/16 0300 Other Results Laboratory Tests Test 11/06/16 11/07/16 17:18 05:29 Blood Gas Puncture Site RT RADIAL LT BRACHIAL Blood Gas Patient Temperature 98.6 98.6 Blood Gas HCO3 30 mmol/L 29 mmol/L (22-26) (22-26) Blood Gas Base Excess 5.4 mmol/L 5.2 mmol/L (-2-2) (-2-2) Blood Gas Oxygen Saturation 95 % (90-100) 93 % (90-100) Arterial Blood pH 7.42 7.45 (7.380-7.420) (7.380-7.420) Arterial Blood Partial 47 mmHg (38-42) 43 mmHg (38-42) Pressure CO2 Arterial Blood Partial 96 mmHg 89 mmHG Pressure O2 (61-120) (61-120) Arterial Blood Oxygen Content 15.1 Vol % 14.4 Vol % (12.0-20.0) (12.0-20.0) Arterial Blood 1.1 % (0-4) 2.1 % (0-4) Carboxyhemoglobin Arterial Blood Methemoglobin 0.9 % (0-2) 1.9 % (0-2) Blood Gas Hemoglobin 11.1 G/DL 10.9 G/DL (12.0-16.0) (12.0-16.0) Oxygen Delivery Device VENTILATOR VENTILATOR Blood Gas Ventilator Setting PRVC/AC SEE COMMENT Blood Gas Inspired Oxygen 100 % 80 % Imaging CT angiography 10/31: Negative for pulmonary embolism. Evidence of left lower lobe consolidation. Small left pleural effusion. Objective Remarks GENERAL: Morbidly obese middle-aged female. HEENT: Normocephalic. Atraumatic. NECK: Supple. Airway widely patent. Orally intubated. CHEST: Clear right side. No breath sounds left side. CARDIOVASCULAR: Controlled rate 70 - 92, irregularly irregular rhythm. No appreciable murmurs. ABDOMEN: Morbidly obese, soft, nontender, nondistended. No guarding. BS active. MUSCULOSKELETAL: tr+ peripheral edema. Well perfused. NEUROLOGICAL: Intubated, sedated. Follows commands in all 4 extremities when light. No gross focal motor or sensory deficits. Opens eyes to stimulation. A/P Assessment and Plan Active problems: Acute hypercarbic and hypoxic respiratory failure Community-acquired pneumonia COPD exacerbation Atrial fibrillation with rapid ventricular response Plan: PRVC vent mode. Bronchoscopy daily d/c azithromycin - d/c Cefepime given her history of severe COPD for improved pseudomonal coverage --Duonebs q4h and q2h prn Convert to oral diltiazem. d/c Xarelto due to mouth bleeding. Protonix for GERD and GI prophylaxis -Sputum culture -Ceftriaxone for urine Klebsiella 11/06 X 5 days. Assessment: This is a 66-year-old female with history of oxygen dependent COPD, morbid obesity, permanent atrial fibrillation who presents with A. fib with rapid ventricular response, COPD exacerbation, community-acquired pneumonia. CO2 retention probably not far from baseline but oxygenation remained severely compromised. She is critically ill with hypoxemic respiratory failure and requires daily bronchoscopy and mechanical ventilation. She can't be weaned. Left lung remains completely atelectatic with shunt physiology. Critical care 34 mins aside from procedures Colin Moralez MD Nov 07, 2016 17:00
[2016-11-07 17:02] LABS: BLOOD GAS CARBOXYHEMOGLOBIN 1.2 % (0-4); BLOOD GAS HCO3 28 mmol/L (22-26); BLOOD GAS METHEMOGLOBIN 0.9 % (0-2); BLOOD GAS O2 HGB SATURATION 96 % (90-100); BLOOD GAS OXYGEN CONTENT 14.5 Vol % (12.0-20.0); BLOOD GAS PCO2 43 mmHg (38-42); BLOOD GAS PO2 109 mmHg (61-120); BLOOD GAS TOTAL HGB 10.6 G/DL (12.0-16.0)
[2016-11-07 17:04] LABS: CRITICAL VALUE NO
--- NOTE | 2016-11-07 17:04 | PD.PROCEDR ---
Procedure Note Procedure DX: Hypoxemic Respiratory Failure (J96.01) OP: Insertion Right Radial Artery Line ([id number]) Procedure: Arturo test normal right hand. Right wrist supinated and prepped and draped. Right radial artery cannulated with 20 gauge needle and cannula delivered into the artery over the needle. Good waveform observed. Dressing applied. Circulation to right hand intact after procedure. Colin Moralez MD Nov 07, 2016 17:04
[2016-11-07 17:05] LABS: OXYGEN DEVICE VENTILATOR
[2016-11-07 17:06] LABS: DRAW SITE ART LINE; STAT YES; TEMP CORR TO 70
[2016-11-08] VITALS (19 sets, daily range): BP systolic 94–156; BP diastolic 52–67; PULSE 67–100; RESP 20; TEMP 99.3–100; O2SAT 92–100
[2016-11-08] MEDS: RESP: ALBUTEROL 2.5 MG/IPRATROPIUM 0.5 MG NEB (SCH) INH ×3 (00:42→08:04)
[2016-11-08] MEDS: CHLORHEXIDINE GLUCONATE 2 % 1 PACK (2 CLOTHS) TOP SCH (02:41)
[2016-11-08] MEDS: PROPOFOL 1000 MG/100 ML INJ 100 ML IV SCH ×6 (02:41→21:55)
[2016-11-08] MEDS: RESP: ACETYLCYSTEINE 20% 30 ML NEB NEB SCH ×4 (04:56→21:34)
[2016-11-08] MEDS: INSULIN NovoLIN REGULAR SUPPLEMENTAL SCALE SQ SCH ×4 (05:00→23:00)
[2016-11-08 05:08] LABS: BLOOD GAS BASE EXCESS 2.5 mmol/L (-2-2); BLOOD GAS CARBOXYHEMOGLOBIN 1.3 % (0-4); BLOOD GAS HCO3 26 mmol/L (22-26); BLOOD GAS METHEMOGLOBIN 0.8 % (0-2); BLOOD GAS O2 HGB SATURATION 94 % (90-100); BLOOD GAS OXYGEN CONTENT 13.3 Vol % (12.0-20.0); BLOOD GAS PCO2 38 mmHg (38-42); BLOOD GAS PO2 81 mmHg (61-120); CRITICAL VALUE NO; TEMP CORR TO 98.6
[2016-11-08 05:09] LABS: DRAW SITE ART LINE; FIO2 60 %; OXYGEN DEVICE VENTILATOR; STAT NO; VENT SETTINGS PRVC/AC
[2016-11-08 05:39] LABS: APTT (PATIENT) 58.2 SEC (24.3-30.1)
[2016-11-08] MEDS: DILTIAZEM HCL 90 MG TAB PO SCH ×3 (07:21→18:00)
[2016-11-08] MEDS: CHLORHEXIDINE 0.12% (ORAL KIT) 15 ML CUP MT SCH ×2 (08:00→20:08)
[2016-11-08] MEDS: PREGABALIN 75 MG CAP PO SCH ×2 (08:18→20:08)
[2016-11-08] MEDS: DOCUSATE SODIUM 50 MG/SENNA 8.6 MG TAB PO SCH ×2 (08:18→20:08)
[2016-11-08] MEDS: FLUTICASONE 100 MCG/VILANTEROL 25 MCG INHALER INH SCH (08:19)
[2016-11-08] MEDS: SODIUM CHLORIDE 0.9% FLUSH 5 ML FLUSH IV FLUSH SCH ×2 (08:19→20:08)
[2016-11-08] MEDS: PANTOPRAZOLE SOD 40 MG DELAYED RELEASE TAB PO SCH (08:19)
[2016-11-08] MEDS: cefTRIAXone INJ 1,000 MG in SODIUM CHLORIDE 0.9% INJ 100 ML IV SCH (08:19)
--- NOTE | 2016-11-08 09:31 | RADRPT ---
EXAM DATE/TIME: 11/08/2016 07:57 [facility] COMPARISON: CHEST SINGLE AP, November 07, 2016, 4:58. INDICATIONS : Tracheomalacia, Short of breath MEDICAL HISTORY : Hypertension. Congestive heart failure. SURGICAL HISTORY : None. ENCOUNTER: Subsequent ACUITY: 1 week PAIN SCORE: Non-responsive. LOCATION: chest FINDINGS: There is continued complete opacification left hemithorax abrupt termination of the left mainstem bro nchus endobronchial lesion cannot be excluded. ET tube terminates above the makeda nasogastric tube The stomach and stable right lung field. CONCLUSION: Stable chest. Stephen Malhotra MD on November 08, 2016 at 9:29 Board Certified Radiologist. This report was verified electronically.
[2016-11-08] MEDS: SODIUM CHLOR 0.9% 1000 ML INJ 1,000 ML IV SCH ×2 (10:36→20:09)
--- NOTE | 2016-11-08 12:31 | HHI.CCPN ---
Subjective Remarks/Hospital Course This is a 66yF with history of a fib and o2 dependent COPD and morbid obesity who presents with 1 day history of pleuritic chest pain and shortness of breath , found to be more hypoxic than usual on her home o2. initial ABG per report to me in the ED (not in the EMR) was pH 7.1 pco2 99. The patient was placed on BiPAP. The patient was initially given Rocephin and azithromycin iv. Pertinent labs are a wbc 12.7, bicarb 33, bnp 124. Critical care medicine is consulted for evaluation and management of her hypoxic and hypercarbic respiratory failure. 11/01: Much improved respiratory comfort today. The complete atelectasis of the LLL is worrisome, but probably chronic. She does not act infected. 11/05: Worsening hypoxemia and left lung is now completely atelectatic. She will need intubation and bronchoscopy. 11/06: Bronch yesterday but left ling still collapsed. Will bronch daily until cleared and open. 11/07: Bronch demonstrated tracheobronchiomalacia with collapse of left mainstem bronchus with each hard exhalation. Elevated mean airway pressure with elevated PEEP has not succeeded in "stenting" the airway open and left lung remains completely collapsed. 11/08: Some improved aeration of CUONG today. Will treat UTI, ignore Strep viridans in sputum. Objective Vital Signs Date Time Temp Pulse Resp B/P Pulse Ox O2 Delivery O2 Flow Rate FiO2 11/08/16 10:00 100 11/08/16 08:05 99 45 11/08/16 08:00 99.3 20 117/56 122/63 11/05/16 08:07 BiPAP 11/04/16 20:11 6.00 Intake and Output 11/07/16 11/07/16 11/08/16 08:00 16:00 00:00 Intake Total 1307 ml 1571 ml 1161 ml Output Total 350 ml 575 ml 225 ml Balance 957 ml 996 ml 936 ml Result Diagram: 11/07/16 0300 11/08/16 0505 Other Results Laboratory Tests Test 11/07/16 11/08/16 16:51 04:58 Blood Gas Puncture Site ART LINE ART LINE Blood Gas Patient Temperature 70 98.6 Blood Gas HCO3 28 mmol/L 26 mmol/L (22-26) (22-26) Blood Gas Base Excess 4.0 mmol/L 2.5 mmol/L (-2-2) (-2-2) Blood Gas Oxygen Saturation 96 % (90-100) 94 % (90-100) Arterial Blood pH 7.43 7.46 (7.380-7.420) (7.380-7.420) Arterial Blood Partial 43 mmHg (38-42) 38 mmHg (38-42) Pressure CO2 Arterial Blood Partial 109 mmHg 81 mmHg Pressure O2 (61-120) (61-120) Arterial Blood Oxygen Content 14.5 Vol % 13.3 Vol % (12.0-20.0) (12.0-20.0) Arterial Blood 1.2 % (0-4) 1.3 % (0-4) Carboxyhemoglobin Arterial Blood Methemoglobin 0.9 % (0-2) 0.8 % (0-2) Blood Gas Hemoglobin 10.6 G/DL 10.0 G/DL (12.0-16.0) (12.0-16.0) Oxygen Delivery Device VENTILATOR VENTILATOR Blood Gas Ventilator Setting PRVC/AC Blood Gas Inspired Oxygen 60 % Imaging CT angiography 10/31: Negative for pulmonary embolism. Evidence of left lower lobe consolidation. Small left pleural effusion. Objective Remarks GENERAL: Morbidly obese middle-aged female. HEENT: Normocephalic. Atraumatic. NECK: Supple. Airway widely patent. Orally intubated. CHEST: Clear right side. Transmitted breath sounds left side. CARDIOVASCULAR: Controlled rate 75 - 95, irregularly irregular rhythm. No appreciable murmurs. ABDOMEN: Morbidly obese, soft, nontender, nondistended. No guarding. BS active. MUSCULOSKELETAL: tr+ peripheral edema. Well perfused. NEUROLOGICAL: Intubated, sedated. Follows commands in all 4 extremities when light. No gross focal motor or sensory deficits. Opens eyes to stimulation. A/P Assessment and Plan Active problems: Acute hypercarbic and hypoxic respiratory failure Community-acquired pneumonia COPD exacerbation Atrial fibrillation with rapid ventricular response Plan: PRVC vent mode. Bronchoscopy daily d/c azithromycin - d/c Cefepime given her history of severe COPD for improved pseudomonal coverage --Duonebs q4h and q2h prn Convert to oral diltiazem. d/c Xarelto due to mouth bleeding. Protonix for GERD and GI prophylaxis -Sputum culture -Ceftriaxone for urine Klebsiella 11/06 X 5 days. -Restart xarelto if not getting trach. Assessment: This is a 66-year-old female with history of oxygen dependent COPD, morbid obesity, permanent atrial fibrillation who presents with A. fib with rapid ventricular response, COPD exacerbation, community-acquired pneumonia. CO2 retention probably not far from baseline but oxygenation remained severely compromised. She fails weaning trials again and will require long-tern vent weaning. Colin Moralez MD Nov 08, 2016 12:31
[2016-11-08] MEDS: RESP: ALBUTEROL 2.5 MG/IPRATROPIUM 0.5 MG NEB (PRN) INH ×2 (15:12→21:34)
[2016-11-08] MEDS ORDERED: VECURONIUM BROMIDE 10 MG VIAL IV PUSH ONE (15:15)
[2016-11-08] MEDS ORDERED: MIDAZOLAM HCL 5 MG/ML VIAL (1 ML) IV ONE (15:15)
--- NOTE | 2016-11-08 16:43 | PD.PROCEDR ---
Procedure Note Procedure Percutaneous Dilation Tracheostomy Tube Placement Diagnosis: Hypoxic and hypercarbic respiratory failure Indications: Ventilator dependency Anesthesia: Propofol, Midazolam Neuromuscular Blockade: Vecuronium 20 mg Family Engagement Specialist: Christ Mullins M.D. Anesthesia was provided by the bedside RN Description of the Procedure: The patient was sedated and paralyzed. The patient was positioned in the supine position with a chest roll. The patient's neck was slightly extended. Landmarks were palpated and the anatomy of the anterior neck was deemed normal. A time out procedure was performed. The patient was placed on a volume control mode of ventilation, on 100% FiO2. The patient was prepped and draped sterilely. A bronchoscope was inserted into the endotracheal tube for endoscopic guidance ( see separate bronchoscopy procedure note). After negative aspiration, 1% lidocaine with 1:100k epinephrine was injected subcutaneously in the midline neck using a 21g needle for local anesthesia. An approximately 2cm skin incision was made using a #15 blade. The cricoid cartilage, thyroid tissue, and tracheal rings were palpated in the midline. Under direct bronchoscopic guidance , the cuff of the endotracheal tube was deflated and the endotracheal tube was retracted to a level above the level of the skin incision. At this point, a 15g introducer needle/catheter was advanced midline under negative aspiration with saline filled syringe until bubbles were seen and the needle and catheter were visualized in the lumen of the trachea. The needle was withdrawn leaving the catheter in place. A 0.052 in diameter J-shaped guidewire was advanced through the catheter into the lumen of the trachea, under direct bronchoscopic visualization. Using a modified Seldinger technique, a 14 Fr, 4.5 cm introducer dilator was used, followed by a Blue Rhino Percutaneous Tracheostomy Dilator, and finally a 28 Fr tracheostomy loading catheter with 8.0 Cuffed Shiley tracheostomy tube. The loading catheter and guidewire were removed and the tracheostomy tube was confirmed in the lumen of the trachea with bronchoscopy, end-tidal CO2, and returning volumes on the ventilator. The tracheostomy was sewn to the skin with interrupted 2.0 Prolene sutures, and a tracheostomy tie was applied to the skin. There were no immediate complications. There was minimal EBL. A chest x-ray has been ordered. Shotblast Operator: Davin wilson M.D. I personally performed the procedure. Amelia Sánchez MD Nov 08, 2016 16:43
--- NOTE | 2016-11-08 17:14 | PD.PROCEDR ---
Procedure Note Procedure Procedure: Diagnostic and therapeutic Fiberoptic Bronchoscopy Diagnosis: Acute on chronic respiratory failure Indications: Chronic respiratory failure requiring percutaneous dilation tracheostomy Consent: Written consent was obtained Anesthesia: Versed IV, propofol IV, vecuronium IV Description of the Procedure: The patient was sedated, paralyzed and mechanically ventilated. The patient was placed on 100% FIO2 and a volume control mode of ventilation. The fiberoptic bronchoscopy was inserted via endotracheal tube. The trachea, right and left mainstem bronchi, and sub- segmental bronchi were evaluated. The endobronchial anatomy was normal. Findings: There is significant and almost complete mucus plugging of the left mainstem and subsegmental bronchi. This was aggressively suctioned prior to the tracheostomy procedure. Under direct bronchoscopic visualization, the needle, guidewire, dilators, and percutaneous tracheostomy were all visualized in the lumen of the trachea. Once the tracheostomy was in place and before any positive pressure was given, the bronchoscope was inserted into the lumen of the tracheostomy and the tracheostomy was once again confirmed in the lumen of the trachea. After the procedure, the lungs were aggressively suctioned under bronchoscopic guidance and any additional secretions or bleeding were suctioned out. BAL samples: BAL samples were not sent. The patient tolerated the procedure well with no hemodynamic instability or hypoxia. There were no immediate complications noted. At the conclusion of the procedure, the patient was placed back on their pre-procedure ventilatory settings. There was minimal EBL. A chest x-ray has been ordered. I personally performed the procedure. Christ Mullins MD Nov 08, 2016 17:14
[2016-11-08] MEDS: fentaNYL DRIP 250 ML IV SCH (21:56)
[2016-11-09] VITALS (11 sets, daily range): BP systolic 105–122; BP diastolic 52–60; PULSE 73–94; RESP 12–20; TEMP 98.4–99.9; O2SAT 98–100
[2016-11-09] MEDS: PROPOFOL 1000 MG/100 ML INJ 100 ML IV SCH ×4 (01:03→11:27)
[2016-11-09] MEDS: HEPARIN-D5W INJ 250 ML IV SCH (02:12)
[2016-11-09] MEDS: CHLORHEXIDINE GLUCONATE 2 % 1 PACK (2 CLOTHS) TOP SCH (03:39)
[2016-11-09] MEDS: RESP: ALBUTEROL 2.5 MG/IPRATROPIUM 0.5 MG NEB (PRN) INH ×2 (04:08→08:19)
[2016-11-09] MEDS: RESP: ACETYLCYSTEINE 20% 30 ML NEB NEB SCH ×2 (04:09→08:19)
[2016-11-09 04:19] LABS: AUTOMATED NEUTROPHIL # 13.9 TH/MM3 (1.8-7.7); BASOPHIL % 0.1 % (0.0-2.0); EOSINOPHIL # 0.4 TH/MM3 (0-0.4); EOSINOPHIL % 2.4 % (0.0-4.0); LYMPH % 7.1 % (9.0-44.0); LYMPHOCYTE # 1.2 TH/MM3 (1.0-4.8); MEAN CELL VOLUME 86.4 FL (80.0-100.0); MEAN CORPUSCULAR HEMOGLOBIN 28.7 PG (27.0-34.0); MEAN CORPUSCULAR HGB CONC 33.2 % (32.0-36.0); MONO % 6.2 % (0.0-8.0); NEUT % 84.2 % (16.0-70.0); PLATELET COUNT 145 TH/MM3 (150-450); RED BLOOD COUNT 3.12 MIL/MM3 (4.00-5.30); RED CELL DISTRIBUTION WIDTH 14.2 % (11.6-17.2); WHITE BLOOD COUNT 16.5 TH/MM3 (4.0-11.0)
[2016-11-09 04:22] LABS: HEMO FLAGS AUTO DIFF
[2016-11-09 04:26] LABS: BLOOD GAS BASE EXCESS 2.2 mmol/L (-2-2); BLOOD GAS CARBOXYHEMOGLOBIN 1.2 % (0-4); BLOOD GAS HCO3 25 mmol/L (22-26); BLOOD GAS METHEMOGLOBIN 0.7 % (0-2); BLOOD GAS O2 HGB SATURATION 98 % (90-100); BLOOD GAS OXYGEN CONTENT 13.9 Vol % (12.0-20.0); BLOOD GAS PCO2 30 mmHg (38-42); BLOOD GAS PO2 153 mmHg (61-120); BLOOD GAS TOTAL HGB 9.9 G/DL (12.0-16.0); TEMP CORR TO 98.6
[2016-11-09 04:27] LABS: CRITICAL VALUE YES; OXYGEN DEVICE VENTILATOR
[2016-11-09 04:28] LABS: DRAW SITE ART LINE; FIO2 80 %; STAT NO; VENT SETTINGS PRVC/AC
[2016-11-09] MEDS ORDERED: MORPHINE SULFATE 4 MG/ML INJ IV PUSH ONE ×2 (04:45→10:45)
[2016-11-09 04:49] LABS: BICARBONATE 28.4 MEQ/L (21.0-32.0); POTASSIUM 3.4 MEQ/L (3.5-5.1)
[2016-11-09] MEDS: INSULIN NovoLIN REGULAR SUPPLEMENTAL SCALE SQ SCH (05:00)
[2016-11-09 05:07] LABS: CALCIUM-PROTEIN CORRECTED 8.4 MG/DL (8.5-10.1)
[2016-11-09 05:14] LABS: BANDS 5 % (0-6); EOSINOPHILS 2 % (0-4); METAMYELOCYTES 2 % (0-1); MYELOCYTES 1 % (0-0); NEUTROPHIL # MANUAL DIFF 15.5 TH/MM3 (1.8-7.7); PLATELET ESTIMATE SMEAR NORMAL (NORMAL); PLATELET MORPHOLOGY NORMAL (NORMAL); POLYS (SEG NEUTROPHILS) 86 % (16-70); SCAN/DIFF FINAL DIFF MANUAL; WBC DIFF SAMPLE 100
[2016-11-09] MEDS: DILTIAZEM HCL 90 MG TAB PO SCH ×2 (06:00)
[2016-11-09] MEDS: SODIUM CHLOR 0.9% 1000 ML INJ 1,000 ML IV SCH (06:53)
--- NOTE | 2016-11-09 06:58 | HHI.CCPN ---
Subjective Remarks/Hospital Course This is a 66yF with history of a fib and o2 dependent COPD and morbid obesity who presents with 1 day history of pleuritic chest pain and shortness of breath , found to be more hypoxic than usual on her home o2. initial ABG per report to me in the ED (not in the EMR) was pH 7.1 pco2 99. The patient was placed on BiPAP. The patient was initially given Rocephin and azithromycin iv. Pertinent labs are a wbc 12.7, bicarb 33, bnp 124. Critical care medicine is consulted for evaluation and management of her hypoxic and hypercarbic respiratory failure. 11/01: Much improved respiratory comfort today. The complete atelectasis of the LLL is worrisome, but probably chronic. She does not act infected. 11/05: Worsening hypoxemia and left lung is now completely atelectatic. She will need intubation and bronchoscopy. 11/06: Bronch yesterday but left ling still collapsed. Will bronch daily until cleared and open. 11/07: Bronch demonstrated tracheobronchiomalacia with collapse of left mainstem bronchus with each hard exhalation. Elevated mean airway pressure with elevated PEEP has not succeeded in "stenting" the airway open and left lung remains completely collapsed. 11/08: Some improved aeration of CUONG today. Will treat UTI, ignore Strep viridans in sputum. 11/09: Tolerated tracheostomy well. Persistent collapse left lung. Ready for LTAC transfer for long-tern vent weaning. Objective Vital Signs Date Time Temp Pulse Resp B/P Pulse Ox O2 Delivery O2 Flow Rate FiO2 11/09/16 06:00 94 11/09/16 05:56 12 11/09/16 04:35 100 70 11/09/16 04:00 98.4 105/52 11/05/16 08:07 BiPAP Intake and Output 11/08/16 11/08/16 11/09/16 08:00 16:00 00:00 Intake Total 1303 ml 1308 ml 1194 ml Output Total 275 ml 525 ml 325 ml Balance 1028 ml 783 ml 869 ml Result Diagram: 11/09/16 0400 11/09/16 0400 Other Results Laboratory Tests Test 11/09/16 04:13 Blood Gas Puncture Site ART LINE Blood Gas Patient Temperature 98.6 Blood Gas HCO3 25 mmol/L (22-26) Blood Gas Base Excess 2.2 mmol/L (-2-2) Blood Gas Oxygen Saturation 98 % (90-100) Arterial Blood pH 7.53 (7.380-7.420) Arterial Blood Partial 30 mmHg (38-42) Pressure CO2 Arterial Blood Partial 153 mmHg Pressure O2 (61-120) Arterial Blood Oxygen Content 13.9 Vol % (12.0-20.0) Arterial Blood 1.2 % (0-4) Carboxyhemoglobin Arterial Blood Methemoglobin 0.7 % (0-2) Blood Gas Hemoglobin 9.9 G/DL (12.0-16.0) Oxygen Delivery Device VENTILATOR Blood Gas Ventilator Setting PRVC/AC Blood Gas Inspired Oxygen 80 % Imaging CT angiography 10/31: Negative for pulmonary embolism. Evidence of left lower lobe consolidation. Small left pleural effusion. Objective Remarks GENERAL: Morbidly obese middle-aged female. HEENT: Normocephalic. Atraumatic. NECK: Supple. Airway widely patent. Trach site clean, dry. CHEST: Clear right side. Transmitted breath sounds left side. CARDIOVASCULAR: Controlled rate 78 - 92, irregularly irregular rhythm. No JVD. ABDOMEN: Morbidly obese, soft, nontender, nondistended. No guarding. BS active. MUSCULOSKELETAL: tr+ peripheral edema. Warm, Well perfused. NEUROLOGICAL: Ventilated, sedated. Follows commands in all 4 extremities when light. No gross focal motor or sensory deficits. Opens eyes to stimulation. A/P Assessment and Plan Active problems: Acute hypercarbic and hypoxic respiratory failure Community-acquired pneumonia COPD exacerbation Atrial fibrillation with rapid ventricular response Plan: PRVC vent mode. Bronchoscopy daily d/c azithromycin - d/c Cefepime given her history of severe COPD for improved pseudomonal coverage --Duonebs q4h and q2h prn Convert to oral diltiazem. d/c Xarelto due to mouth bleeding. Protonix for GERD and GI prophylaxis -Sputum culture -Ceftriaxone for urine Klebsiella 11/06 X 5 days. -Restart xarelto after getting trach. Assessment: This is a 66-year-old female with history of oxygen dependent COPD, morbid obesity, permanent atrial fibrillation who presents with A. fib with rapid ventricular response, COPD exacerbation, community-acquired pneumonia. She fails weaning trials again and will require long-tern vent weaning. Tracheostomy placed 11/08. Colin Moralez MD Nov 09, 2016 06:58
[2016-11-09] MEDS: CHLORHEXIDINE 0.12% (ORAL KIT) 15 ML CUP MT SCH (08:00)
[2016-11-09] MEDS: SODIUM CHLORIDE 0.9% FLUSH 5 ML FLUSH IV FLUSH SCH (08:07)
[2016-11-09] MEDS: FLUTICASONE 100 MCG/VILANTEROL 25 MCG INHALER INH SCH (08:07)
[2016-11-09] MEDS: PREGABALIN 75 MG CAP PO SCH (08:07)
[2016-11-09] MEDS: DOCUSATE SODIUM 50 MG/SENNA 8.6 MG TAB PO SCH (08:07)
[2016-11-09] MEDS: PANTOPRAZOLE SOD 40 MG DELAYED RELEASE TAB PO SCH (08:07)
--- NOTE | 2016-11-09 08:29 | RADRPT ---
EXAM DATE/TIME: 11/09/2016 07:11 [facility] COMPARISON: CHEST SINGLE AP, November 08, 2016, 7:57. INDICATIONS : Persistent left lung atelectasis. Hypoxemia. Post tracheostomy. MEDICAL HISTORY : Hypertension. Congestive heart failure. SURGICAL HISTORY : Tracheostomy. ENCOUNTER: Subsequent ACUITY: 1 week PAIN SCORE: Non-responsive. LOCATION: Bilateral chest FINDINGS: Rotated and underinflated frontal view of the chest demonstrates a tracheostomy overlying the trachea l air shadow. Right subclavian central line remains present. Patient is rotated and underinflated. No pneumothorax is visualized. There is hazy pleural-parenchymal opacity overlying the lungs bilaterall y. There may be leftward shift of the mediastinum related to volume loss in the left hemithorax. No a cute osseous abnormality is seen. CONCLUSION: 1. Tracheostomy appears in appropriate position. No pneumothorax is visualized. 2. There are persistent bibasilar pleural-parenchymal opacities likely representing pleural effusion with associated volume loss and/or airspace consolidation. The appearance is stable. 3. Suspected leftward shift of the mediastinum suggesting left lung volume loss. Perry Kessler MD on November 09, 2016 at 8:26 Board Certified Radiologist. This report was verified electronically.
[2016-11-09] MEDS: cefTRIAXone INJ 1,000 MG in SODIUM CHLORIDE 0.9% INJ 100 ML IV SCH (10:38)
--- NOTE | 2016-11-09 10:40 | HHI.DS ---
Discharge Summary Admission Date Oct 31, 2016 at 18:47 Discharge Date: Nov 09, 2016 Admitting Diagnosis Pneumonia/Hypoxia/Afib/Hypoxia Procedures Flexible Bronchoscopy X 2. Tracheostomy - Shiley #8 XLT-proximal. Brief History This is a 66yF with history of a fib and o2 dependent COPD and morbid obesity who presents with 1 day history of pleuritic chest pain and shortness of breath , found to be more hypoxic than usual on her home o2. initial ABG per report to me in the ED (not in the EMR) was pH 7.1 pco2 99. The patient was placed on BiPAP. The patient was initially given Rocephin and azithromycin iv. Pertinent labs are a wbc 12.7, bicarb 33, bnp 124. Critical care medicine is consulted for evaluation and management of her hypoxic and hypercarbic respiratory failure. When I evaluated the patient, she was moderately dyspneic. She denied N/V/ diarrhea. Although she had previously endorsed pleuritic chest pain to the ED physician, she denied chest pain to me on my evaluation. She states she is compliant with her xarelto. Patient is allergic to penicillins, but has tolerated cephalosporins in the past. CBC/BMP: 11/09/16 0400 11/09/16 0400 Significant Findings Laboratory Tests Test 11/06/16 11/06/16 11/07/16 11/07/16 17:18 19:02 03:00 05:29 Blood Gas HCO3 30 mmol/L 29 mmol/L (22-26) (22-26) Blood Gas Base Excess 5.4 mmol/L 5.2 mmol/L (-2-2) (-2-2) Arterial Blood Partial 47 mmHg (38-42) 43 mmHg (38-42) Pressure CO2 Blood Gas Hemoglobin 11.1 G/DL 10.9 G/DL (12.0-16.0) (12.0-16.0) Activated Partial 23.6 SEC 86.1 SEC Thromboplast Time (24.3-30.1) (24.3-30.1) White Blood Count 17.9 TH/MM3 (4.0-11.0) Red Blood Count 3.48 MIL/MM3 (4.00-5.30) Hemoglobin 10.1 GM/DL (11.6-15.3) Hematocrit 29.8 % (35.0-46.0) Carbon Dioxide Level 32.4 MEQ/L (21.0-32.0) Blood Urea Nitrogen 40 MG/DL (7-18) Creatinine 1.10 MG/DL (0.50-1.00) Estimat Glomerular Filtration 50 ML/MIN (>89) Rate Random Glucose 167 MG/DL (74-106) Calcium Level 7.5 MG/DL (8.5-10.1) Arterial Blood pH 7.45 (7.380-7.420) Test 11/07/16 11/07/16 11/07/16 11/08/16 09:04 15:22 16:51 04:58 Activated Partial 69.7 SEC 62.7 SEC Thromboplast Time (24.3-30.1) (24.3-30.1) Blood Gas HCO3 28 mmol/L (22-26) Blood Gas Base Excess 4.0 mmol/L 2.5 mmol/L (-2-2) (-2-2) Arterial Blood pH 7.43 7.46 (7.380-7.420) (7.380-7.420) Arterial Blood Partial 43 mmHg (38-42) Pressure CO2 Blood Gas Hemoglobin 10.6 G/DL 10.0 G/DL (12.0-16.0) (12.0-16.0) Test 11/08/16 11/09/16 11/09/16 05:05 04:00 04:13 Activated Partial 58.2 SEC 56.0 SEC Thromboplast Time (24.3-30.1) (24.3-30.1) Estimat Glomerular Filtration 58 ML/MIN (>89) 62 ML/MIN (>89) Rate White Blood Count 16.5 TH/MM3 (4.0-11.0) Red Blood Count 3.12 MIL/MM3 (4.00-5.30) Hemoglobin 8.9 GM/DL (11.6-15.3) Hematocrit 27.0 % (35.0-46.0) Platelet Count 145 TH/MM3 (150-450) Neutrophils (%) (Auto) 84.2 % (16.0-70.0) Lymphocytes (%) (Auto) 7.1 % (9.0-44.0) Neutrophils # (Auto) 13.9 TH/MM3 (1.8-7.7) Monocytes # (Auto) 1.0 TH/MM3 (0-0.9) Neutrophils % (Manual) 86 % (16-70) Lymphocytes % 1 % (9-44) Neutrophils # (Manual) 15.5 TH/MM3 (1.8-7.7) Metamyelocytes 2 % (0-1) Myelocytes 1 % (0-0) Potassium Level 3.4 MEQ/L (3.5-5.1) Blood Urea Nitrogen 28 MG/DL (7-18) Calcium Level 6.9 MG/DL (8.5-10.1) Protein Corrected Calcium 8.4 MG/DL (8.5-10.1) Total Protein 4.4 GM/DL (6.4-8.2) Blood Gas Base Excess 2.2 mmol/L (-2-2) Arterial Blood pH 7.53 (7.380-7.420) Arterial Blood Partial 30 mmHg (38-42) Pressure CO2 Arterial Blood Partial 153 mmHg Pressure O2 (61-120) Blood Gas Hemoglobin 9.9 G/DL (12.0-16.0) PE at Discharge GENERAL: Morbidly obese female in respiratory distress. HEENT: Normocephalic. Atraumatic. NECK: Supple. Airway widely patent. CHEST: Tachypnea, on BiPAP, wheezing appreciated. CARDIOVASCULAR: Irregularly irregular rhythm. No appreciable murmurs. ABDOMEN: Morbidly obese, soft, nontender, nondistended. No guarding. BS active. MUSCULOSKELETAL: 1-2+ peripheral edema. Distal pulses 2+. NEUROLOGICAL: O X 3, alert. Follows commands in all 4 extremities. No gross focal motor or sensory deficits. PSYCH: Slightly anxious. Hospital Course This is a 66yF with history of a fib and o2 dependent COPD and morbid obesity who presents with 1 day history of pleuritic chest pain and shortness of breath , found to be more hypoxic than usual on her home o2. initial ABG per report to me in the ED (not in the EMR) was pH 7.1 pco2 99. The patient was placed on BiPAP. The patient was initially given Rocephin and azithromycin iv. Pertinent labs are a wbc 12.7, bicarb 33, bnp 124. Critical care medicine is consulted for evaluation and management of her hypoxic and hypercarbic respiratory failure. 11/01: Much improved respiratory comfort today. The complete atelectasis of the LLL is worrisome, but probably chronic. She does not act infected. 11/05: Worsening hypoxemia and left lung is now completely atelectatic. She will need intubation and bronchoscopy. 11/06: Bronch yesterday but left ling still collapsed. Will bronch daily until cleared and open. 11/07: Bronch demonstrated tracheobronchiomalacia with collapse of left mainstem bronchus with each hard exhalation. Elevated mean airway pressure with elevated PEEP has not succeeded in "stenting" the airway open and left lung remains completely collapsed. 11/08: Some improved aeration of CUONG today. Will treat UTI, ignore Strep viridans in sputum. 11/09: Tolerated tracheostomy well. Persistent collapse left lung. Ready for LTAC transfer for long-tern vent weaning. Pt Condition on Discharge: Stable Discharge Disposition: Rehab Inpatient Discharge Instructions Additional Information Presented with hypoxemic respiratory failure and LLL collapse (atelectasis). Bronchoscopy reveals inspissated secretions left main stem bronchus, suctioned clean twice (separate days). Noted distal trachea and left mainstem tracheomalacia with closure on forced exhalation; improved with PEEP 10. Only sputum cultures positive of many was light growth Strep viridans once. Today's CXR with some minimal aeration CUONG, complete collapse LLL. Hemodynamics have always been stable. Colin Moralez MD Nov 09, 2016 10:40
[2016-11-09] MEDS ORDERED: LORazepam 2 MG/ML VIAL IV PUSH PRN (10:45)
[2016-11-09] MEDS ORDERED: LORazepam 2 MG/ML VIAL IV PUSH ONE (10:45)
[2016-11-09] MEDS ORDERED: MORPHINE SULFATE 8 MG/ML INJ IV PUSH SCH (10:45)
== END 2016-11-09 12:45 | DRG 4 ==
LOC: NEPC 13:55 → NEDA 18:47 → N03B 22:28
PROVIDERS: ADMIT Anesthesiology; ATTEND Anesthesiology
PROC: 5A09457 Assistance with Respiratory Ventilation, 24-96 Consecutive Hours, Continuous Positive Airway Pressure (ICD-10-PCS; 2016-10-31)
PROC: 5A1955Z Respiratory Ventilation, Greater than 96 Consecutive Hours (ICD-10-PCS; 2016-11-05)
PROC: 0BH17EZ Insertion of Endotracheal Airway into Trachea, Via Natural or Artificial Opening (ICD-10-PCS; 2016-11-05)
PROC: 0BJ08ZZ Inspection of Tracheobronchial Tree, Via Natural or Artificial Opening Endoscopic (ICD-10-PCS; 2016-11-05)
PROC: 04HK33Z Insertion of Infusion Device into Right Femoral Artery, Percutaneous Approach (ICD-10-PCS; 2016-11-06)
PROC: 05H533Z Insertion of Infusion Device into Right Subclavian Vein, Percutaneous Approach (ICD-10-PCS; 2016-11-06)
PROC: 0BJ08ZZ Inspection of Tracheobronchial Tree, Via Natural or Artificial Opening Endoscopic (ICD-10-PCS; 2016-11-06)
PROC: 03HB33Z Insertion of Infusion Device into Right Radial Artery, Percutaneous Approach (ICD-10-PCS; 2016-11-07)
PROC: 0B113F4 Bypass Trachea to Cutaneous with Tracheostomy Device, Percutaneous Approach (ICD-10-PCS; principal; 2016-11-08)
PROC: 0BC78ZZ Extirpation of Matter from Left Main Bronchus, Via Natural or Artificial Opening Endoscopic (ICD-10-PCS; 2016-11-08)
DX: J96.01 Acute respiratory failure with hypoxia (principal); J18.9 Pneumonia, unspecified organism; J90 Pleural effusion, not elsewhere classified; E87.2 Acidosis; J44.1 Chronic obstructive pulmonary disease with (acute) exacerbation; Z99.81 Dependence on supplemental oxygen; N39.0 Urinary tract infection, site not specified; J45.901 Unspecified asthma with (acute) exacerbation; I48.2 Chronic atrial fibrillation; J98.11 Atelectasis; J96.02 Acute respiratory failure with hypercapnia; E66.01 Morbid (severe) obesity due to excess calories; E78.00 Pure hypercholesterolemia, unspecified; I10 Essential (primary) hypertension; K21.9 Gastro-esophageal reflux disease without esophagitis; Z88.0 Allergy status to penicillin; E78.5 Hyperlipidemia, unspecified; N28.9 Disorder of kidney and ureter, unspecified; R73.9 Hyperglycemia, unspecified; E87.5 Hyperkalemia; M79.7 Fibromyalgia; B96.1 Klebsiella pneumoniae [K. pneumoniae] as the cause of diseases classified elsewhere; T17.990A Other foreign object in respiratory tract, part unspecified in causing asphyxiation, initial encounter; J39.8 Other specified diseases of upper respiratory tract; Z90.49 Acquired absence of other specified parts of digestive tract; Z23 Encounter for immunization
CPT/HCPCS: 31500; 31600; 31624; 36556; 36600; 71010; 71275; 76937; 80048; 80053; 80076; 81001; 82550; 82565; 82805; 82948; 83036; 83615; 83735; 83880; 84155; 84484; 85007; 85025; 85027; 85379; 85384; 85610; 85730; 86077; 86850; 86870; 86900; 86901; 86902; 86920; 86922; 87040; 87070; 87077; 87086; 87186; 87205; 87641; 90471; 90686; 93005; 94002; 94003; 94150; 94640; 94664; 94667; 94668; 96365; 96375; 96376; C9113; G0008; J0456; J0692; J0696; J1644; J1940; J2060; J2250; J2270; J2370; J2405; J2920; J2930; J3010; J3370; J3480; J7030; J7040; J7050; J7608; Q2038; Q9967

== ENCOUNTER 2017-01-13 15:20 | Inpatient (IN) | payer MEDICARE ==
[~2017-01-13] VITALS: Ht 162.6 cm; Wt 144.8 kg
[2017-01-13] VITALS (11 sets, daily range): BP systolic 107–147; BP diastolic 52–82; PULSE 102–135; RESP 18–22; TEMP 97.4–98.4; O2SAT 89–99
[~2017-01-13 15:20] MED LIST changes: +ALBU1AER5 INH; +AMLO5TAB2 PO; -AMLO5TAB22 PO; -DUONI NEB; -FENO50TA PO; -FLUT1INH; +FLUT1INH INH; +FURO1TAB62 PO; -FURO20 PO; +IPRASOL INH; +LYRI75CA PO; -METO25 PO; +METO25TA3 PO; -OMEP20TA39 PO; -POTA75TA PO; -PRED50TA PO; -PREG75 PO; -RIVA20 PO; -ULTR50TA PO; +XARE20TA PO; -Z.0.OXYGEN INH
[2017-01-13] MEDS ORDERED: SODIUM CHLORIDE 0.9% FLUSH 10 ML FLUSH IVF PRN (15:45)
[2017-01-13] MEDS ORDERED: DILTIAZEM HCL 25 MG/5 ML VIAL IV ONE ×2 (15:45→16:15)
[2017-01-13] MEDS ORDERED: SODIUM CHLORID 0.9% 500 ML INJ 500 ML IV ONE (15:45)
--- NOTE | 2017-01-13 15:47 | PD ---
HPI Chief Complaint: Respiratory Symptoms Time Seen by Provider: 15:35 Travel History International Travel<30 days: No Contact w/Intl Traveler<30days: No Traveled to known affect area: No History of Present Illness HPI 66-year-old female presents the emergency department via EMS from local [facility] facility with question pneumonia with worsening shortness of breath and hypoxia. Patient has a history of pneumonia with left-sided pneumothorax with a protracted hospitalization including placement of trach, and feeding tube. Patient states she was doing well at rehabilitation, where she's been for the past 12 days until 3 days ago, when she developed an increasing purulent productive cough with yellow coloration. Patient denies fever or chills. Patient has decreased appetite in the last few days. She denies nausea, vomiting, or chest pain. Patient is allergic to penicillin. O2 sats are 97% on 2 L via nasal cannula. PFSH Past Medical History Hx Anticoagulant Therapy: Yes (XARELTO ) Asthma: Yes Atrial Fibrillation: Yes Heart Rhythm Problems: Yes Cardiovascular Problems: Yes (HTN) High Cholesterol: Yes Congestive Heart Failure: Yes Diminished Hearing: No GERD: Yes Hiatal Hernia: Yes Hypertension: Yes Respiratory: Yes Immunizations Current: No Pneumonia: Yes Menopausal: Yes Past Surgical History Abdominal Surgery: Yes (HIATAL HERNIA ) Appendectomy: Yes Hysterectomy: Yes Social History Alcohol Use: No Tobacco Use: No Substance Use: No Allergies-Medications (Allergen,Severity, Reaction): Coded Allergies: Penicillin (Verified Allergy, Severe, 05/01/16) Reported Meds & Prescriptions Reported Meds & Active Scripts Active Reported Zofran Odt (Ondansetron Odt) 4 Mg Tab 4 Mg SL Q6HR PRN Xanax (Alprazolam) 1 Mg Tab 1 Mg PO BID PRN Restoril (Temazepam) 15 Mg Cap 15 Mg PO HS PRN Sennosides 8.6 Mg Tab 17.2 Mg PO BID Reglan (Metoclopramide HCl) 10 Mg Tab 10 Mg PO Q6HR PRN Prednisone 20 Mg Tab 20 Mg PO DAILY Oxycodone (Oxycodone HCl) 5 Mg Cap 5 Mg PO Q6H PRN One Daily-Minerals (Multiple Vitamins W/ Minerals) 1 Tab 1 Tab PO DAILY Omeprazole 20 Mg Tab 20 Mg PO DAILY Bactroban Topical (Mupirocin) 2% Oint 1 Appl TOPICAL BID Apply to trach wound Lotrimin AF Deodorant Powder (Miconazole Nitrate Powder) 2 % Aerp 1 Applic TOPICAL BID Apply to skin folds every day and evening shift for redness Metolazone 2.5 Mg Tab 2.5 Mg PO DAILY Lantus Inj (Insulin Glargine) 100 Unit/Ml Inj 40 Units SQ Q12HR Klor-Con M20 (Potassium Chloride Microencaps) 20 Meq Tab 40 Meq PO TID Humalog Inj (Insulin Human Lispro) 1,000 Unit/10 Ml Vial 4-16 Units SQ ACHS Sliding scale: 70-150=0 units, 151-200=4 units, 201-250=8 units, 251-300=10 units, 301-350=12 units, 351-400=16 units, 401 + Notify Glucagen Hypokit Inj Kit (Glucagon (Rdna) Inj Kit) 1 Mg Kit 1 Mg IM ONCE PRN Flomax (Tamsulosin HCl) 0.4 Mg Cap 0.4 Mg PO HS Budesonide Neb 0.5 Mg/2 Ml Neb 0.5 Mg NEB BID Brovana Neb (Arformoterol Neb) 15 Mcg/2 Ml Vial 15 Mcg NEB BID Maintenance treatment of bronchoconstriction in COPD. Anucort-Hc Supp (Hydrocortisone Acetate Supp) 25 Mg Supp 25 Mg RECTAL Q12HR Albuterol Neb (Albuterol Sulfate) 2.5 Mg/3 Ml Neb 2.5 Mg NEB Q4HR PRN While awake Xarelto (Rivaroxaban) 10 Mg Tab 10 Mg PO DAILY Acetylcysteine Liq/Neb (Acetylcysteine) 200 mg/ml Soln 4 Ml NEB Q8HR PRN Lyrica (Pregabalin) 75 Mg Cap 75 Mg PO DAILY Metoprolol Tartrate 25 Mg Tab 12.5 Mg PO BID Review of Systems Except as stated in HPI: all other systems reviewed are Neg General / Constitutional: No: Fever, Chills Eyes: No: Visual changes HENT: No: Headaches Cardiovascular: No: Chest Pain or Discomfort Respiratory: Positive: Cough, Shortness of Breath, Wheezing, No: Sneezing, Orthopnea, Hemoptysis, Stridor, Night Sweats, Pleuritic Pain Gastrointestinal: No: Nausea, Vomiting, Diarrhea, Abdominal Pain Genitourinary: No: Dysuria Musculoskeletal: No: Pain Skin: No Rash Neurologic: No: Weakness Psychiatric: No: Depression Endocrine: No: Polydipsia Hematologic/Lymphatic: No: Easy Bruising Physical Exam Narrative GENERAL: Morbidly obese patient in mild respiratory distress. Patient is able to speak in short sentences. Audible wheezing is noted. SKIN: Warm and dry. Normal color. Normal turgor. HEAD: Atraumatic. Normocephalic. EYES: Pupils equal and round. No scleral icterus. No injection or drainage. ENT: No nasal bleeding or discharge. Mucous membranes pink and moist. Pharynx is clear. No sinus tenderness. TMs are clear bilaterally. NECK: Trachea midline. No JVD. Supple and nontender. CARDIOVASCULAR: Tachycardic rate and normal rhythm. RESPIRATORY: No accessory muscle use. Diffuse wheezes and rhonchi to auscultation. Breath sounds equal bilaterally. No egophony. GASTROINTESTINAL: Abdomen soft, non-tender, nondistended. Hepatic and splenic margins not palpable. MUSCULOSKELETAL: Extremities without clubbing, cyanosis, or edema. No obvious deformities. NEUROLOGICAL: Awake and alert. No obvious cranial nerve deficits. Motor grossly within normal limits. Five out of 5 muscle strength in the arms and legs. Normal speech. PSYCHIATRIC: Appropriate mood and affect; insight and judgment normal. Data Data Last Documented VS Vital Signs Date Time Temp Pulse Resp B/P Pulse Ox O2 Delivery O2 Flow Rate FiO2 01/13/17 16:21 98 Nasal Cannula 2.00 01/13/17 15:50 102 20 01/13/17 15:36 144/58 147/57 01/13/17 15:28 98.4 Orders Electrocardiogram (01/13/17 ) Basic Metabolic Panel (Bmp) (01/13/17 15:31) B-Type Natriuretic Peptide (01/13/17 15:31) Ckmb (Isoenzyme) Profile (01/13/17 15:31) Comprehensive Metabolic Panel (01/13/17 15:31) Magnesium (Mg) (01/13/17 15:31) Prothrombin Time / Inr (Pt) (01/13/17 15:31) Act Partial Throm Time (Ptt) (01/13/17 15:31) Troponin I (01/13/17 15:31) Chest, Single Ap (01/13/17 15:31) Ecg Monitoring (01/13/17 15:31) Bilateral Bp Monitoring (01/13/17 15:31) Iv Access Insert/Monitor (01/13/17 15:31) Oximetry (01/13/17 15:31) Oxygen Administration (01/13/17 15:31) Sodium Chloride 0.9% Flush (Ns Flush) (01/13/17 15:45) Lactic Acid Sepsis Protocol (01/13/17 15:31) Urinalysis - C+S If Indicated (01/13/17 15:31) Blood Culture (01/13/17 15:31) Diltiazem Inj (Cardizem Inj) (01/13/17 15:45) Sodium Chlorid 0.9% 500 Ml Inj (Ns 500 M (01/13/17 15:45) Complete Blood Count With Diff (01/13/17 15:54) Diltiazem Inj (Cardizem Inj) (01/13/17 16:15) Albuterol-Ipratropium Neb (Duoneb Neb) (01/13/17 16:15) Urine Culture (01/13/17 15:40) Fluconazole (Diflucan) (01/13/17 17:00) Cefepime Inj (Maxipime Inj) (01/13/17 17:00) Azithromycin Inj (Zithromax Inj) (01/13/17 17:00) Vancomycin Inj (Vancomycin Inj) (01/13/17 17:00) Admit Order (Ed Use Only) (01/13/17 17:46) Labs Laboratory Tests Test 01/13/17 01/13/17 01/13/17 15:35 15:40 15:45 Prothrombin Time 12.1 SEC Prothromb Time International 1.1 RATIO Ratio Activated Partial 28.0 SEC Thromboplast Time Sodium Level 145 MEQ/L Potassium Level 5.0 MEQ/L Chloride Level 107 MEQ/L Carbon Dioxide Level 31.3 MEQ/L Anion Gap 7 MEQ/L Blood Urea Nitrogen 23 MG/DL Creatinine 0.63 MG/DL Estimat Glomerular Filtration 94 ML/MIN Rate Random Glucose 74 MG/DL Lactic Acid Level 1.3 mmol/L Calcium Level 8.6 MG/DL Magnesium Level 1.6 MG/DL Total Bilirubin 0.3 MG/DL Aspartate Amino Transf 17 U/L (AST/SGOT) Alanine Aminotransferase 31 U/L (ALT/SGPT) Alkaline Phosphatase 91 U/L Total Creatine Kinase 27 U/L Troponin I LESS THAN 0.02 NG/ML B-Type Natriuretic Peptide 139 PG/ML Total Protein 6.1 GM/DL Albumin 2.8 GM/DL Urine Color YELLOW Urine Turbidity CLOUDY Urine pH 5.5 Urine Specific Malcom 1.019 Urine Protein 100 mg/dL Urine Glucose (UA) NEG mg/dL Urine Ketones NEG mg/dL Urine Occult Blood LARGE Urine Nitrite NEG Urine Bilirubin NEG Urine Urobilinogen LESS THAN 2.0 MG/DL Urine Leukocyte Esterase LARGE Urine RBC /hpf Urine WBC /hpf Urine WBC Clumps FEW Urine Squamous Epithelial 2 /hpf Cells Urine Bacteria OCC /hpf Urine Hyaline Casts 4 /lpf Urine Mucus FEW /lpf Urine Yeast with Hyphae FEW Urine Yeast (Budding) MANY Microscopic Urinalysis Comment CATH-CULTURE IND White Blood Count 12.8 TH/MM3 Red Blood Count 3.97 MIL/MM3 Hemoglobin 11.0 GM/DL Hematocrit 34.5 % Mean Corpuscular Volume 87.0 FL Mean Corpuscular Hemoglobin 27.6 PG Mean Corpuscular Hemoglobin 31.7 % Concent Red Cell Distribution Width 22.8 % Platelet Count 155 TH/MM3 Mean Platelet Volume 8.3 FL Neutrophils (%) (Auto) 89.0 % Lymphocytes (%) (Auto) 5.2 % Monocytes (%) (Auto) 5.2 % Eosinophils (%) (Auto) 0.2 % Basophils (%) (Auto) 0.4 % Neutrophils # (Auto) 11.4 TH/MM3 Lymphocytes # (Auto) 0.7 TH/MM3 Monocytes # (Auto) 0.7 TH/MM3 Eosinophils # (Auto) 0.0 TH/MM3 Basophils # (Auto) 0.1 TH/MM3 CBC Comment AUTO DIFF Differential Total Cells 100 Counted Neutrophils % (Manual) 83 % Band Neutrophils % 5 % Lymphocytes % 4 % Monocytes % 3 % Neutrophils # (Manual) 11.9 TH/MM3 Metamyelocytes 3 % Myelocytes 2 % Differential Comment FINAL DIFF MANUAL Platelet Estimate NORMAL Platelet Morphology Comment NORMAL Ovalocytes 1+ Stomatocytes 1+ MDM Medical Decision Making Medical Screen Exam Complete: Yes Emergency Medical Condition: Yes Differential Diagnosis Tachycardic. Pneumonia. Pleural effusion. Pneumothorax. Atrial fibrillation. CHF. Cardiac syndrome. Narrative Course Patient is medically stable at time of exam. EKG shows atrial fibrillation with RVR, which is new for the patient. This is reviewed with Dr. Lowery. Chest x-ray is ordered. IV access is obtained and labs ordered including CBC, CMP, lactic acid, proBNP, urinalysis, blood cultures 2. Cardiac panel is ordered as well. Patient is given 10 mg diltiazem IV, as well as 500 mg saline bolus. 1615 hrs. patient is reevaluated and found that her heart rate decreased to about 110 bpm. Patient discussed with Dr. Lowery. Patient was given an additional 10 mg of diltiazem IV as well as a DuoNeb 1. CBC shows leukocytosis of 12.8 with 89% neutrophils. Urinalysis shows large occult blood, large leukocyte esterase, a few white blood cell comes, occasional urine bacteria, 4 hyaline casts, and a few yeast with hyphae and many budding yeast. Chemistry shows normal electrolytes. Creatinine of 0.63. Troponin less than 0.02. Lactic acid of 1.3. ProBNP of [address] Lowery recommends antibiotics for the patient including 1000 mg cefepime IV, 500 mg azithromycin IV, and 1000 mg vancomycin IV. Patient is also given Diflucan 150 mg by mouth. 1715 hrs. call was placed to the hospitalist for admission. 1740 hrs. patient was discussed with Dr. Garcia who accepted the patient for admission. Diagnosis Primary Impression: Pleural effusion on left Additional Impressions: Pneumonia Qualified Code: J18.1 - Pneumonia of left lower lobe due to infectious organism Afib Qualified Code: I48.91 - Atrial fibrillation, unspecified type Hypoxia Admitting Information Admitting Physician Requests: Admit Condition: Stable Aaron Tse Jan 13, 2017 15:47
[2017-01-13 16:01] LABS: INTERNATIONAL NORMALIZED RATIO 1.1 RATIO; PROTHROMBIN TIME - PATIENT 12.1 SEC (9.8-11.6)
[2017-01-13] MEDS ORDERED: ACET20SO3 NEB (16:10)
[2017-01-13 16:13] LABS: AUTOMATED NEUTROPHIL # 11.4 TH/MM3 (1.8-7.7); BASOPHIL # 0.1 TH/MM3 (0-0.2); BASOPHIL % 0.4 % (0.0-2.0); EOSINOPHIL % 0.2 % (0.0-4.0); HEMATOCRIT 34.5 % (35.0-46.0); LYMPH % 5.2 % (9.0-44.0); LYMPHOCYTE # 0.7 TH/MM3 (1.0-4.8); MEAN CORPUSCULAR HEMOGLOBIN 27.6 PG (27.0-34.0); MEAN CORPUSCULAR HGB CONC 31.7 % (32.0-36.0); MONO % 5.2 % (0.0-8.0); PLATELET COUNT 155 TH/MM3 (150-450); RED BLOOD COUNT 3.97 MIL/MM3 (4.00-5.30); RED CELL DISTRIBUTION WIDTH 22.8 % (11.6-17.2); WHITE BLOOD COUNT 12.8 TH/MM3 (4.0-11.0)
[2017-01-13] MEDS ORDERED: RESP: ALBUTEROL 2.5 MG/IPRATROPIUM 0.5 MG NEB (SCH) NEB ONE (16:15)
[2017-01-13 16:17] LABS: HEMO FLAGS AUTO DIFF
[2017-01-13 16:22] LABS: ALT (GPT) 31 U/L (10-53); ANION GAP 7 MEQ/L (5-15); AST (GOT) 17 U/L (15-37); BICARBONATE 31.3 MEQ/L (21.0-32.0); BLOOD UREA NITROGEN 23 MG/DL (7-18); CHLORIDE 107 MEQ/L (98-107); GLOMERULAR FILTRATION RATE 94 ML/MIN (>89); MAGNESIUM 1.6 MG/DL (1.5-2.5); SODIUM (NA) 145 MEQ/L (136-145)
[2017-01-13 16:24] LABS: BACTERIA, URINE OCC /hpf; BLOOD, URINE LARGE (NEG); GLUCOSE,URINE NEG (NEG); HYALINE CAST, URINE 4 /lpf (RARE); KETONE, URINE NEG (NEG); MUCUS URINE FEW /lpf (OCC); NITRITE,URINE NEG (NEG); PH, URINE 5.5 (5.0-8.5); SQUAMOUS EPITHELIAL CELL URINE 2 /hpf (0-5); URINE COLOR YELLOW (YELLW/STRAW)
[2017-01-13 16:25] LABS: COMMENT (UR) CATH-CULTURE IND; CULTURE IF INDICATED CATH CULTURE IND
[2017-01-13 16:26] LABS: ALKALINE PHOSPHATASE 91 U/L (45-117); CREATINE KINASE 27 U/L (26-192); TOTAL BILIRUBIN ADULT 0.3 MG/DL (0.2-1.0)
[2017-01-13] MEDS ORDERED: ONETAB22 PO (16:37)
[2017-01-13] MEDS ORDERED: POTA-245 PO (16:37)
[2017-01-13] MEDS ORDERED: REGL10TA5 PO (16:37)
[2017-01-13] MEDS ORDERED: HUMALOG SQ (16:37)
[2017-01-13] MEDS ORDERED: ANUC25SU RECTAL (16:37)
[2017-01-13] MEDS ORDERED: LOTR2AER2 TOPICAL (16:37)
[2017-01-13] MEDS ORDERED: BROV15NE NEB (16:37)
[2017-01-13] MEDS ORDERED: PRED20 PO (16:37)
[2017-01-13] MEDS ORDERED: METO2.5T PO (16:37)
[2017-01-13] MEDS ORDERED: BACT2OIN TOPICAL (16:37)
[2017-01-13] MEDS ORDERED: OXYC1CAP PO (16:37)
[2017-01-13] MEDS ORDERED: LANTUS2P SQ (16:37)
[2017-01-13] MEDS ORDERED: ZOFR4TAB3 SL (16:37)
[2017-01-13] MEDS ORDERED: SENN8.6T81 PO (16:37)
[2017-01-13] MEDS ORDERED: ALBU0.08 NEB (16:37)
[2017-01-13] MEDS ORDERED: TAMS5CAP PO (16:37)
[2017-01-13] MEDS ORDERED: REST15CA PO (16:37)
[2017-01-13] MEDS ORDERED: OMEP20TA PO (16:37)
[2017-01-13] MEDS ORDERED: BUDE0.5S NEB (16:37)
[2017-01-13] MEDS ORDERED: GLUCINJ IM (16:37)
[2017-01-13] MEDS ORDERED: XANA1TAB2 PO (16:37)
[2017-01-13] MEDS ORDERED: XARE10TA PO (16:37)
[2017-01-13 16:41] LABS: BANDS 5 % (0-6); METAMYELOCYTES 3 % (0-1); MYELOCYTES 2 % (0-0); NEUTROPHIL # MANUAL DIFF 11.9 TH/MM3 (1.8-7.7); POLYS (SEG NEUTROPHILS) 83 % (16-70); WBC DIFF SAMPLE 100
[2017-01-13 16:42] LABS: STOMATOCYTES 1+ (NORMAL)
[2017-01-13 16:43] LABS: OVALOCYTES 1+ (NORMAL)
[2017-01-13 16:45] LABS: PLATELET ESTIMATE SMEAR NORMAL (NORMAL); PLATELET MORPHOLOGY NORMAL (NORMAL); SCAN/DIFF FINAL DIFF MANUAL
[2017-01-13] MEDS ORDERED: VANCOMYCIN INJ 1,000 MG in SODIUM CHLOR 0.9% 250 ML INJ 250 ML IV ONE ×2 (17:00→18:15)
[2017-01-13] MEDS ORDERED: CEFEPIME INJ 1,000 MG in SODIUM CHLORIDE 0.9% INJ 100 ML IV ONE (17:00)
[2017-01-13] MEDS ORDERED: FLUCONAZOLE 100 MG TAB PO ONE (17:00)
[2017-01-13] MEDS ORDERED: AZITHROMYCIN INJ 500 MG in SODIUM CHLOR 0.9% 250 ML INJ 250 ML IV ONE (17:00)
--- NOTE | 2017-01-13 17:11 | RADRPT ---
EXAM DATE/TIME: 01/13/2017 16:02 [facility] COMPARISON: CHEST SINGLE AP, November 08, 2016, 7:57. CHEST SINGLE AP, November 09, 2016, 7:11. INDICATIONS : Chest pain. MEDICAL HISTORY : None. SURGICAL HISTORY : None. Tracheostomy ENCOUNTER: Initial ACUITY: 1 day PAIN SCORE: 7/10 LOCATION: Bilateral chest FINDINGS: The patient is rotated towards the left. There is prominent consolidation of most of the left lung s paring left apex. This is similar to prior examination. The right lung is clear. Right hemidiaphra gm is well delineated. Tracheostomy in good position. CONCLUSION: Almost complete opacification of the left hemithorax, stable from prior. The right lungs clear. Dorian Vasquez MD on January 13, 2017 at 17:08 Board Certified Radiologist. This report was verified electronically.
[2017-01-13] MEDS ORDERED: guaiFENesin/DEXTROMETHORPHAN 200 MG/20 MG/10 ML CUP PO PRN (18:15)
[2017-01-13] MEDS ORDERED: SODIUM CHLORIDE 0.9% FLUSH 10 ML FLUSH IV FLUSH PRN (18:15)
[2017-01-13] MEDS ORDERED: ONDANSETRON HCL 4 MG/2 ML VIAL IV PRN (18:15)
[2017-01-13] MEDS ORDERED: TEMAZEPAM 15 MG CAP PO PRN (18:15)
[2017-01-13] MEDS ORDERED: RESP: ALBUTEROL 2.5 MG/3 ML NEB (PRN) NEB (18:15)
[2017-01-13] MEDS ORDERED: METOCLOPRAMIDE HCL 10 MG TAB PO PRN (18:15)
[2017-01-13] MEDS ORDERED: Vancomycin Consult Pharmacy 1 EA OTHER SCH (18:15)
[2017-01-13] MEDS ORDERED: PILL SPLITTER OTHER PRN (18:30)
[2017-01-13] MEDS ORDERED: GLUCAGON 1 MG/ML VIAL OTHER PRN (18:30)
[2017-01-13] MEDS ORDERED: DILTIAZEM INJ 125 MG in SODIUM CHLORIDE 0.9% INJ 100 ML IV SCH (18:30)
--- NOTE | 2017-01-13 18:39 | HHI.HP ---
HPI Service [facility] Primary Care Physician Tonio Marc MD Admission Diagnosis pneumonia, hypoxia, pleural effusion Diagnoses: Chief Complaint: Pneumonia Travel History International Travel<30 Days: No Contact w/Intl Traveler <30 Da: No Traveled to Known Affected Are: No Sepsis Criteria SIRS Criteria (2 or more): Heart rate over 90, WBC > 56594, < 4000 or > 10% bands Sepsis Criteria (SIRS+source): Infect source susp/known Criteria Outcome: Meets SIRS criteria, Meets sepsis criteria History of Present Illness 66-year-old female with a past medical history of COPD, A. fib, HLD, HTN, GERD, DM who presents from SNF for shortness breath and cough. Patient states that for the past 3 days she's been having worsening shortness of breath. She's been having cough that is productive with yellow/green/white sputum. She denies any fever, chills, chest pain, abdominal pain, nausea, vomiting. She states that occasionally she has heart racing sensation, not currently. She has a chronic indwelling Solitario catheter, unsure when last time was it was changed. She states that she had some loose stools yesterday after receiving a stool softener. She does not follow with a tube knitter. She has a history of chronic collapsed left lung. She has a capped tracheostomy. Chronically on O2. Chronically on steroids. Not on CPAP at night. She states she normally ambulates using a cane. Review of Systems Except as stated in HPI: all other systems reviewed are Neg Past Family Social History Past Medical History Chronic asthma home oxygen Atrial fibrillation Hyperlipidemia Hypertension excellent diabetes mellitus GERD Past Surgical History Appendectomy Hernia surgery Tracheostomy placement Reported Medications Zofran Odt (Ondansetron Odt) 4 Mg Tab 4 Mg SL Q6HR PRN Xanax (Alprazolam) 1 Mg Tab 1 Mg PO BID PRN Restoril (Temazepam) 15 Mg Cap 15 Mg PO HS PRN Sennosides 8.6 Mg Tab 17.2 Mg PO BID Reglan (Metoclopramide HCl) 10 Mg Tab 10 Mg PO Q6HR PRN Prednisone 20 Mg Tab 20 Mg PO DAILY Oxycodone (Oxycodone HCl) 5 Mg Cap 5 Mg PO Q6H PRN One Daily-Minerals (Multiple Vitamins W/ Minerals) 1 Tab 1 Tab PO DAILY Omeprazole 20 Mg Tab 20 Mg PO DAILY Bactroban Topical (Mupirocin) 2% Oint 1 Appl TOPICAL BID Apply to trach wound Lotrimin AF Deodorant Powder (Miconazole Nitrate Powder) 2 % Aerp 1 Applic TOPICAL BID Apply to skin folds every day and evening shift for redness Metolazone 2.5 Mg Tab 2.5 Mg PO DAILY Lantus Inj (Insulin Glargine) 100 Unit/Ml Inj 40 Units SQ Q12HR Klor-Con M20 (Potassium Chloride Microencaps) 20 Meq Tab 40 Meq PO TID Humalog Inj (Insulin Human Lispro) 1,000 Unit/10 Ml Vial 4-16 Units SQ ACHS Sliding scale: 70-150=0 units, 151-200=4 units, 201-250=8 units, 251-300=10 units, 301-350=12 units, 351-400=16 units, 401 + Notify Glucagen Hypokit Inj Kit (Glucagon (Rdna) Inj Kit) 1 Mg Kit 1 Mg IM ONCE PRN Flomax (Tamsulosin HCl) 0.4 Mg Cap 0.4 Mg PO HS Budesonide Neb 0.5 Mg/2 Ml Neb 0.5 Mg NEB BID Brovana Neb (Arformoterol Neb) 15 Mcg/2 Ml Vial 15 Mcg NEB BID Maintenance treatment of bronchoconstriction in COPD. Anucort-Hc Supp (Hydrocortisone Acetate Supp) 25 Mg Supp 25 Mg RECTAL Q12HR Albuterol Neb (Albuterol Sulfate) 2.5 Mg/3 Ml Neb 2.5 Mg NEB Q4HR PRN While awake Xarelto (Rivaroxaban) 10 Mg Tab 10 Mg PO DAILY Acetylcysteine Liq/Neb (Acetylcysteine) 200 mg/ml Soln 4 Ml NEB Q8HR PRN Lyrica (Pregabalin) 75 Mg Cap 75 Mg PO DAILY Metoprolol Tartrate 25 Mg Tab 12.5 Mg PO BID Allergies: Coded Allergies: Penicillin (Verified Allergy, Severe, 05/01/16) Active Ordered Medications Current Medications Medications (Trade) Dose Ordered Sig/Mirta Route Start Time Stop Time Status Last Admin (NS Flush) 2 ml UNSCH PRN IVF 01/13/17 15:45 (Albuterol Neb) 2.5 mg Q4HR PRN NEB 01/13/17 18:15 UNV (Xanax) 1 mg BID PRN PO 01/13/17 18:15 (Pulmicort Respule Neb) 0.5 mg BID NEB 01/13/17 21:00 UNV (Hemorrhoidal Hc Supp) 25 mg Q12HR RECTAL 01/13/17 21:00 (Levemir Inj) 40 units Q12HR SQ 01/13/17 21:00 (Reglan) 10 mg Q6HR PRN PO 01/13/17 18:15 UNV (Zaroxolyn) 2.5 mg DAILY PO 01/14/17 09:00 UNV (Lopressor) 12.5 mg BID PO 01/13/17 21:00 UNV (Roxicodone) 5 mg Q6H PRN PO 01/13/17 18:15 UNV (Deltasone) 20 mg DAILY PO 01/14/17 09:00 UNV (Lyrica) 75 mg DAILY PO 01/14/17 09:00 UNV (Xarelto) 10 mg DAILY PO 01/14/17 09:00 UNV (Flomax) 0.4 mg HS PO 01/13/17 21:00 UNV (Restoril) 15 mg HS PRN PO 01/13/17 18:15 UNV Non-Formulary Medication 15 mcg BID NEB 01/13/17 21:00 UNV Non-Formulary Medication 1 applic BID TOPICAL 01/13/17 21:00 UNV Non-Formulary Medication 20 mg DAILY PO 01/14/17 09:00 UNV (NS Flush) 2 ml UNSCH PRN IV FLUSH 01/13/17 18:15 UNV Sodium Chloride 2 ml 2 ml BID IV FLUSH 01/13/17 21:00 UNV Vancomycin HCl 1000 mg/Sodium Chloride 250 ml @ 250 mls/hr ONCE ONCE IV 01/13/17 18:15 01/13/17 19:14 UNV (Vancomycin Consult Pharmacy) 0 ml @ 0 mls/hr UNSCH OTHER 01/13/17 18:15 UNV (Zofran Inj) 4 mg Q6H PRN IV 01/13/17 18:15 UNV Guaifenesin/ Dextromethorphan 10 ml 10 ml Q4H PRN PO 01/13/17 18:15 UNV Azithromycin 500 mg/Sodium Chloride 250 ml @ 250 mls/hr Q24H IV 01/13/17 18:15 UNV (Maxipime Inj/NS Inj) 100 ml @ 200 mls/hr Q12H IV 01/13/17 18:15 UNV Family History Father had heart disease, diabetes, emphysema Mother had mental health issues Social History [facility] resident for the past 2 weeks No alcohol or tobacco use Physical Exam Vital Signs Vital Signs Date Time Temp Pulse Resp B/P Pulse Ox O2 Delivery O2 Flow Rate FiO2 01/13/17 16:21 98 Nasal Cannula 2.00 01/13/17 15:50 102 20 98 Nasal Cannula 2 01/13/17 15:50 104 01/13/17 15:36 144/58 147/57 01/13/17 15:35 98 Nasal Cannula 2 01/13/17 15:28 98.4 129 22 144/58 97 Nasal Cannula 2 01/13/17 15:22 97.4 127 18 144/58 89 Physical Exam GENERAL: Well-developed well-nourished. Morbidly obese. In no acute distress. SKIN: Warm and dry. No lesions noted. HEENT: Normocephalic. Pupils equal and round. Mucous membranes pink and moist. Tracheostomy in place. CARDIOVASCULAR: Tachycardic irregular rate and rhythm. No murmur appreciated. RESPIRATORY: No accessory muscle use. Clear to auscultation. Decreased breath sounds on the left. Coarse crackles bilaterally. No wheezing. GASTROINTESTINAL: Abdomen soft, non-tender, nondistended. Bowel sounds x4. MUSCULOSKELETAL: No obvious deformities. No clubbing or cyanosis. No edema. NEUROLOGICAL: Awake and alert. Bilateral lower showing any weakness. 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 Moves lower extremities to command. Normal speech. PSYCHIATRIC: Appropriate mood and affect; insight and judgment normal. Laboratory Laboratory Tests Test 01/13/17 01/13/17 01/13/17 15:35 15:40 15:45 Prothrombin Time 12.1 Prothromb Time International 1.1 Ratio Activated Partial 28.0 Thromboplast Time Sodium Level 145 Potassium Level 5.0 Chloride Level 107 Carbon Dioxide Level 31.3 Anion Gap 7 Blood Urea Nitrogen 23 Creatinine 0.63 Estimat Glomerular Filtration 94 Rate Random Glucose 74 Lactic Acid Level 1.3 Calcium Level 8.6 Magnesium Level 1.6 Total Bilirubin 0.3 Aspartate Amino Transf 17 (AST/SGOT) Alanine Aminotransferase 31 (ALT/SGPT) Alkaline Phosphatase 91 Total Creatine Kinase 27 Troponin I LESS THAN 0.02 B-Type Natriuretic Peptide 139 Total Protein 6.1 Albumin 2.8 Urine Color YELLOW Urine Turbidity CLOUDY Urine pH 5.5 Urine Specific [place] 1.019 Urine Protein 100 Urine Glucose (UA) NEG Urine Ketones NEG Urine Occult Blood LARGE Urine Nitrite NEG Urine Bilirubin NEG Urine Urobilinogen LESS THAN 2.0 Urine Leukocyte Esterase LARGE Urine RBC Urine WBC Urine WBC Clumps FEW Urine Squamous Epithelial 2 Cells Urine Bacteria OCC Urine Hyaline Casts 4 Urine Mucus FEW Urine Yeast with Hyphae FEW Urine Yeast (Budding) MANY Microscopic Urinalysis Comment CATH-CULTURE IND White Blood Count 12.8 Red Blood Count 3.97 Hemoglobin 11.0 Hematocrit 34.5 Mean Corpuscular Volume 87.0 Mean Corpuscular Hemoglobin 27.6 Mean Corpuscular Hemoglobin 31.7 Concent Red Cell Distribution Width 22.8 Platelet Count 155 Mean Platelet Volume 8.3 Neutrophils (%) (Auto) 89.0 Lymphocytes (%) (Auto) 5.2 Monocytes (%) (Auto) 5.2 Eosinophils (%) (Auto) 0.2 Basophils (%) (Auto) 0.4 Neutrophils # (Auto) 11.4 Lymphocytes # (Auto) 0.7 Monocytes # (Auto) 0.7 Eosinophils # (Auto) 0.0 Basophils # (Auto) 0.1 CBC Comment AUTO DIFF Differential Total Cells 100 Counted Neutrophils % (Manual) 83 Band Neutrophils % 5 Lymphocytes % 4 Monocytes % 3 Neutrophils # (Manual) 11.9 Metamyelocytes 3 Myelocytes 2 Differential Comment FINAL DIFF MANUAL Platelet Estimate NORMAL Platelet Morphology Comment NORMAL Ovalocytes 1+ Stomatocytes 1+ Date/Time Procedure Status Source Growth 01/13/17 15:40 Urine Culture Received Urine Catheterized Urine Pending 01/13/17 15:40 Aerobic Blood Culture Received Blood Peripheral Pending 01/13/17 15:40 Anaerobic Blood Culture Received Blood Peripheral Pending Result Diagram: 01/13/17 1545 01/13/17 1535 Imaging Last Impressions Chest X-Ray 01/13/17 1531 Signed Impressions: Service Date/Time: Sunday, January 13, 2017 16:02 - CONCLUSION: Almost complete opacification of the left hemithorax, stable from prior. The right lungs clear. Dorian Vasquez MD Assessment and Plan Assessment and Plan 66-year-old female with a past medical history of COPD, A. fib, HLD, HTN, GERD, DM who presents from SNF for shortness breath and cough Sepsis: Tachycardia, tachypnea, WBC 12.8. Lactic acid within normal limits. Treatment for pneumonia as below. Follow up blood cultures. Check pro calcitonin. HCAP: Chest x-ray shows continued opacification of the left hemithorax, unchanged when reviewed with previous imaging. Hypoxia 89% on admission. Penicillin allergic, give IV azithromycin, cefepime, vancomycin. Check sputum culture. Continue home meds. Supplemental oxygen as needed. Antitussives as needed. Check for influenza. A. fib with RVR: Heart rate remains [id number], EKG reviewed, no ischemic changes. Given 20 mg total IV Cardizem in the ED. Start Cardizem gtt. Continue home metoprolol. On Xarelto for anticoagulation. Monitor and replace electrolytes as needed. UTI: Catheter associated. UA with evidence of UTI. Exchange Solitario. Antibiotics as above. Fluconazole 1 for yeast. Follow-up culture. COPD with chronic respiratory failure: Does not seem to be in acute exacerbation currently. Continue daily prednisone and home pulmonary regimen. Diabetes mellitus: Continue home baseline insulin. Additional coverage with SSI with Accu-Cheks. Continue Lyrica for neuropathy. Continue PT Prophylaxis: PPI. Xarelto. Code Status Full code Discussed Condition With Patient with daughter at bedside, Dr. Garcia Attending Statement Attestation Patient seen and examined with Jam Malagon PA-C. The exam, history, and the medical decision-making described in the above note were completed with the assistance of the dictating practitioner. I attest that I had a [id number] encounter with the patient on the same day, and personally performed all of the history, exam, or medical decision making. Discussed case with him thoroughly after seeing the patient, reviewed and agreed with the plan. Please see addendum in History, Physical examination and Plan. See below for any errata/ additional input: This is a 66-year-old female who was sent from rehabilitation for generalized weakness, shortness of breath, and cough productive with yellowish and greenish sputum In mild distress Trach in place Tachycardic, irregular rhythm, no murmurs Crackles bilaterally, decreased breath sounds on the left. Abdomen soft, obese No edema Awake, alert and oriented 3. Positive for generalized weakness. X-ray showed opacification of the left lung Agree with putting on Cardizem drip, broad-spectrum antibiotics: Cefepime, vancomycin and azithromycin, bronchodilators, admitted to the ICU or CIC. Jam Malagon Jan 13, 2017 18:39 Nakul Garcia MD Jan 14, 2017 13:37
[2017-01-13] MEDS: RESP: BUDESONIDE 0.5 MG/2 ML NEB NEB SCH (19:17)
[2017-01-13] MEDS: SODIUM CHLOR 0.9% 1000 ML INJ 1,000 ML IV SCH (19:38)
[2017-01-13] MEDS: HYDROCORTISONE ACETATE 25 MG SUPP RECTAL SCH (21:00)
[2017-01-13] MEDS: VANCOMYCIN INJ 2,000 MG in SODIUM CHLORID 0.9% 500 ML INJ 500 ML IV SCH (21:00)
[2017-01-13] MEDS: SODIUM CHLORIDE 0.9% FLUSH 10 ML FLUSH IV FLUSH SCH (21:00)
[2017-01-13] MEDS: INSULIN ASPART SUPPLEMENTAL SCALE SQ SCH (21:00)
[2017-01-13] MEDS: INSULIN DETEMIR 100 UNITS/ML VIAL SQ SCH (21:00)
[2017-01-13] MEDS ORDERED: ARFORMOTEROL 15 MCG NEB SCH (21:00)
[2017-01-13] MEDS: TAMSULOSIN HCL 0.4 MG CAP PO SCH (21:58)
[2017-01-13] MEDS: METOPROLOL TARTRATE 25 MG TAB PO SCH (21:59)
--- NOTE | 2017-01-13 23:57 | EKG ---
Date Performed: 01/13/2017 Time Performed: 15:32:24 PTAGE: 66 years EKG: ATRIAL FIBRILLATION WITH RAPID VENTRICULAR RESPONSE LOW QRS VOLTAGE IN PRECORDIAL LEADS POS SIBLE RIGHT VENTRICULAR CONDUCTION DELAY NONSPECIFIC ST & T-WAVE ABNORMALITY ABNORMAL ECG PREVIOUS TRACING : 10/31/2016 14.19 DOCTOR: Meagan Morales Interpretating Date/Time 01/13/2017 23:56:29
[2017-01-14] VITALS (25 sets, daily range): BP systolic 95–113; BP diastolic 48–67; PULSE 77–111; RESP 14–18; TEMP 98–98.4; O2SAT 95–99
[2017-01-14] MEDS: VANCOMYCIN INJ 2,000 MG in SODIUM CHLORID 0.9% 500 ML INJ 500 ML IV SCH (06:24)
[2017-01-14] MEDS: SODIUM CHLOR 0.9% 1000 ML INJ 1,000 ML IV SCH ×2 (06:40→16:38)
[2017-01-14] MEDS: INSULIN ASPART SUPPLEMENTAL SCALE SQ SCH ×4 (07:00→21:00)
[2017-01-14 07:12] LABS: AUTOMATED NEUTROPHIL # 5.6 TH/MM3 (1.8-7.7); BASOPHIL % 0.3 % (0.0-2.0); EOSINOPHIL # 0.1 TH/MM3 (0-0.4); EOSINOPHIL % 1.3 % (0.0-4.0); HEMATOCRIT 28.3 % (35.0-46.0); LYMPH % 15.9 % (9.0-44.0); LYMPHOCYTE # 1.2 TH/MM3 (1.0-4.8); MEAN CELL VOLUME 86.5 FL (80.0-100.0); MEAN CORPUSCULAR HEMOGLOBIN 28.5 PG (27.0-34.0); MEAN CORPUSCULAR HGB CONC 32.9 % (32.0-36.0); NEUT % 74.5 % (16.0-70.0); PLATELET COUNT 141 TH/MM3 (150-450); RED BLOOD COUNT 3.28 MIL/MM3 (4.00-5.30); RED CELL DISTRIBUTION WIDTH 22.7 % (11.6-17.2); WHITE BLOOD COUNT 7.5 TH/MM3 (4.0-11.0)
[2017-01-14 07:14] LABS: BICARBONATE 31.2 MEQ/L (21.0-32.0); MAGNESIUM 1.5 MG/DL (1.5-2.5); POTASSIUM 3.8 MEQ/L (3.5-5.1)
[2017-01-14] MEDS: PATIENT OWN MEDICATION TOPICAL SCH ×2 (07:14→21:00)
[2017-01-14 07:16] LABS: HEMO FLAGS AUTO DIFF
[2017-01-14] MEDS: RESP: BUDESONIDE 0.5 MG/2 ML NEB NEB SCH ×2 (08:02→21:10)
[2017-01-14] MEDS: SODIUM CHLORIDE 0.9% FLUSH 10 ML FLUSH IV FLUSH SCH ×2 (08:27→21:00)
[2017-01-14 08:28] LABS: BANDS 2 % (0-6); CORRECTED NUCLEATED RBC 3 /100 WBC (0-0); EOSINOPHILS 1 % (0-4); METAMYELOCYTES 1 % (0-1); MYELOCYTES 1 % (0-0); NEUTROPHIL # MANUAL DIFF 5.5 TH/MM3 (1.8-7.7); PLATELET ESTIMATE SMEAR LOW (NORMAL); PLATELET MORPHOLOGY NORMAL (NORMAL); POLYS (SEG NEUTROPHILS) 69 % (16-70); SCAN/DIFF FINAL DIFF MANUAL; WBC DIFF SAMPLE 100
[2017-01-14] MEDS: CEFEPIME INJ 1,000 MG in SODIUM CHLORIDE 0.9% INJ 100 ML IV SCH ×2 (08:30→16:37)
[2017-01-14] MEDS: predniSONE 20 MG TAB PO SCH (08:33)
[2017-01-14] MEDS: PANTOPRAZOLE SOD 20 MG DELAYED RELEASE TAB PO SCH (08:33)
[2017-01-14] MEDS: PREGABALIN 75 MG CAP PO SCH (08:33)
[2017-01-14] MEDS: METOLAZONE 2.5 MG TAB PO SCH (08:33)
[2017-01-14] MEDS: METOPROLOL TARTRATE 25 MG TAB PO SCH ×2 (08:33→21:00)
[2017-01-14] MEDS: HYDROCORTISONE ACETATE 25 MG SUPP RECTAL SCH ×2 (08:33→21:00)
[2017-01-14] MEDS: INSULIN DETEMIR 100 UNITS/ML VIAL SQ SCH ×2 (08:34→21:00)
[2017-01-14] MEDS: RIVAROXABAN 10 MG TAB PO SCH (08:39)
--- NOTE | 2017-01-14 13:46 | HHI.PR ---
Subjective Remarks Follow-up for shortness of breath Shortness of breath a lot better but not get back to baseline, cough is about the same, afebrile. Left lower extremity edema worse. Still on Cardizem drip at 10. Denies any chest pain or palpitations. Objective Vitals Vital Signs Date Time Temp Pulse Resp B/P Pulse Ox O2 Delivery O2 Flow Rate FiO2 01/14/17 12:00 77 01/14/17 12:00 98.1 78 16 95/60 98 01/14/17 11:00 84 01/14/17 10:00 100 01/14/17 09:44 16 01/14/17 09:00 104 01/14/17 08:04 99 Nasal Cannula 2.00 01/14/17 08:00 111 01/14/17 08:00 98.2 95 16 113/59 99 01/14/17 07:00 86 01/14/17 05:00 97 01/14/17 04:00 94 01/14/17 04:00 98.0 92 18 103/52 99 01/14/17 03:00 93 18 109/62 99 01/14/17 03:00 100 01/14/17 02:00 100 18 108/59 99 01/14/17 02:00 100 01/14/17 01:00 98 18 105/58 99 01/14/17 01:00 98 01/14/17 00:00 108 01/14/17 00:00 108 18 108/67 99 01/13/17 23:00 124 01/13/17 23:00 121 18 107/52 99 01/13/17 22:00 126 01/13/17 22:00 135 18 116/52 99 01/13/17 21:47 98.0 116 18 126/62 99 01/13/17 21:40 116 01/13/17 20:10 98.0 102 20 131/82 97 Nasal Cannula 2 01/13/17 19:19 99 Nasal Cannula 2.00 01/13/17 16:21 98 Nasal Cannula 2.00 01/13/17 15:50 102 20 98 Nasal Cannula 2 01/13/17 15:50 104 01/13/17 15:36 144/58 147/57 01/13/17 15:35 98 Nasal Cannula 2 01/13/17 15:28 98.4 129 22 144/58 97 Nasal Cannula 2 01/13/17 15:22 97.4 127 18 144/58 89 I/O 01/13/17 01/13/17 01/13/17 01/14/17 01/14/17 01/14/17 07:00 15:00 23:00 07:00 15:00 23:00 Intake Total 1000 ml Balance 1000 ml Intake IV Total 1000 ml # Voids 0 Result Diagram: 01/14/17 0626 01/14/17 0626 Objective Remarks GENERAL: Not in distress, morbidly obese. SKIN: Warm and dry. No lesions noted. HEENT: Normocephalic. Pupils equal and round. Mucous membranes pink and moist. Tracheostomy in place. CARDIOVASCULAR: Borderline tachycardic, irregular rate and rhythm. No murmur appreciated. RESPIRATORY: No accessory muscle use. Clear to auscultation. Decreased breath sounds on the left. Coarse crackles bilaterally. No wheezing. GASTROINTESTINAL: Abdomen soft, non-tender, nondistended. Bowel sounds x4. MUSCULOSKELETAL: No obvious deformities. No clubbing or cyanosis. 2+ edema mick LLE NEUROLOGICAL: Awake and alert, oriented 3. Bilateral lower showing any weakness. Upper extremity compliance review officer strength intact. Moves lower extremities to command. Normal speech. PSYCHIATRIC: Appropriate mood and affect; insight and judgment normal. A/P Problem List: (1) Pneumonia ICD Code: J18.9 Status: Acute (2) Afib ICD Code: I48.91 Status: Acute (3) Hypoxia ICD Code: R09.02 Status: Acute (4) CHF (congestive heart failure) ICD Code: I50.9 Status: Acute Assessment and Plan 66-year-old female with a past medical history of COPD, A. fib, HLD, HTN, GERD, DM who presents from SNF for shortness breath and cough Sepsis possibly secondary to age: Tachycardia, tachypnea, WBC 12.8. Lactic acid within normal limits. Treatment for pneumonia as below. Follow up blood cultures. Protocol CT scan and negative. Doubt severe pneumonia.Chest x-ray shows continued opacification of the left hemithorax,unchanged when reviewed with previous imaging, patient is chronic atelectasis. Stop vancomycin and azithromycin, continue cefepime, follow-up sputum culture. Continue oxygen, antitussives. Leukocytosis resolved, rapid flu negative. Taper antibiotics fast. Toxic respiratory failure-pneumonia and diastolic CHF, will give a dose of Lasix , check echocardiogram. A. fib with RVR: Heart rate remains [id number], EKG reviewed, no ischemic changes. Given 20 mg total IV Cardizem in the ED. still on Cardizem gtt. Continue home metoprolol. On Xarelto for anticoagulation. Start Cardizem orally. Switch albuterol to Xopenex. UTI: Catheter associated. UA with evidence of UTI. Exchange Solitario. Antibiotics as above. Fluconazole 1 for yeast. Follow-up culture. COPD with chronic respiratory failure: Does not seem to be in acute exacerbation currently. Continue daily prednisone and home pulmonary regimen. Diabetes mellitus: Continue home baseline insulin. Additional coverage with SSI with Accu-Cheks. Continue Lyrica for neuropathy. Lower extremity edema-check ultrasound of the left lower leg. Lasix as above. Monitor urine output Continue PT Prophylaxis: PPI. Xarelto. Problem Qualifiers (1) Pneumonia: Qualified Code: J18.1 - Pneumonia of left lower lobe due to infectious organism (2) Afib: Qualified Code: I48.91 - Atrial fibrillation, unspecified type Nakul Garcia MD Jan 14, 2017 13:46
[2017-01-14] MEDS ORDERED: RESP: LEVALBUTEROL HYDROCHLORIDE 1.25 MG/3 ML NEB (PRN) NEB (14:00)
[2017-01-14] MEDS ORDERED: MAGNESIUM SULFATE 1 GM PREMIX 100 ML IV ONE (14:00)
[2017-01-14] MEDS: RESP: LEVALBUTEROL HYDROCHLORIDE 1.25 MG/3 ML NEB (SCH) NEB ×2 (14:00→21:10)
[2017-01-14] MEDS: FUROSEMIDE 40 MG/4 ML VIAL IV PUSH SCH ×2 (14:36→16:37)
[2017-01-14] MEDS: DILTIAZEM HCL 30 MG TAB PO SCH (16:37)
[2017-01-14] MEDS ORDERED: AZITHROMYCIN INJ 500 MG in SODIUM CHLOR 0.9% 250 ML INJ 250 ML IV SCH (17:00)
[2017-01-14] MEDS: TAMSULOSIN HCL 0.4 MG CAP PO SCH (21:00)
--- NOTE | 2017-01-14 21:29 | RADRPT ---
EXAM DATE/TIME: 01/14/2017 18:08 [place] COMPARISON: No previous studies available for comparison. INDICATIONS : Left leg swelling. MEDICAL HISTORY : Hypercholesterolemia. Congestive heart failure. Gastroesophageal reflux disease. Afib. Anticoagula nt therapy, Xarelto. Asthma. Pneumonia. SURGICAL HISTORY : Appendectomy. Hysterectomy. Hiatal hernia repair. ENCOUNTER: Initial ACUITY: >1 year PAIN SCORE: 1/10 LOCATION: Left leg. TECHNIQUE: Venous ultrasound of the leg was performed from the inguinal ligament to the proximal calf. Real-steve e, color Doppler and spectral tracing, compression and augmentation techniques were used. FINDINGS: There is normal compressibility of the deep venous system from the inguinal region to the proximal ca lf. No echogenic clot is seen in the lumen of the common femoral, femoral, popliteal, and posterior tibial veins. There is a normal response of the venous system to proximal and distal augmentation an d respiration. CONCLUSION: Normal examination. Sachin Gonzalez MD on January 14, 2017 at 21:27 Board Certified Radiologist. This report was verified electronically.
[2017-01-15] VITALS (26 sets, daily range): BP systolic 99–123; BP diastolic 52–73; PULSE 50–119; RESP 16–20; TEMP 97.6–98.5; O2SAT 95–99
[2017-01-15] MEDS: DILTIAZEM HCL 30 MG TAB PO SCH ×5 (00:02→23:51)
[2017-01-15] MEDS: CEFEPIME INJ 1,000 MG in SODIUM CHLORIDE 0.9% INJ 100 ML IV SCH ×2 (05:03→18:00)
[2017-01-15] MEDS: SODIUM CHLOR 0.9% 1000 ML INJ 1,000 ML IV SCH (05:04)
[2017-01-15] MEDS: INSULIN ASPART SUPPLEMENTAL SCALE SQ SCH ×3 (06:41→21:00)
[2017-01-15 06:59] LABS: BICARBONATE 34.6 MEQ/L (21.0-32.0)
[2017-01-15 07:23] LABS: POTASSIUM 2.9 MEQ/L (3.5-5.1)
[2017-01-15] MEDS: PANTOPRAZOLE SOD 20 MG DELAYED RELEASE TAB PO SCH (07:32)
[2017-01-15] MEDS: PREGABALIN 75 MG CAP PO SCH (07:32)
[2017-01-15] MEDS: INSULIN DETEMIR 100 UNITS/ML VIAL SQ SCH ×2 (07:32→21:00)
[2017-01-15] MEDS: RIVAROXABAN 10 MG TAB PO SCH (07:33)
[2017-01-15] MEDS: METOPROLOL TARTRATE 25 MG TAB PO SCH ×2 (07:35→21:52)
[2017-01-15] MEDS: METOLAZONE 2.5 MG TAB PO SCH (07:35)
[2017-01-15] MEDS: predniSONE 20 MG TAB PO SCH (07:35)
[2017-01-15] MEDS: RESP: LEVALBUTEROL HYDROCHLORIDE 1.25 MG/3 ML NEB (SCH) NEB ×3 (08:00→19:43)
[2017-01-15] MEDS: RESP: BUDESONIDE 0.5 MG/2 ML NEB NEB SCH ×2 (08:10→19:42)
[2017-01-15] MEDS ORDERED: PHARMACY ORDERED LAB ONE (08:45)
[2017-01-15 08:56] LABS: MAGNESIUM 1.5 MG/DL (1.5-2.5)
[2017-01-15] MEDS ORDERED: POTASSIUM CHLORIDE 20 MEQ CONTROLLED RELEASE TAB PO SCH (09:00)
[2017-01-15] MEDS: HYDROCORTISONE ACETATE 25 MG SUPP RECTAL SCH ×2 (09:00→21:00)
[2017-01-15] MEDS: SODIUM CHLORIDE 0.9% FLUSH 10 ML FLUSH IV FLUSH SCH ×2 (09:15→21:00)
[2017-01-15] MEDS: POTASSIUM CHLORIDE 20 MEQ CONTROLLED RELEASE TAB PO SCH ×3 (09:15→19:00)
[2017-01-15] MEDS: FUROSEMIDE 40 MG/4 ML VIAL IV PUSH SCH ×2 (09:15→18:59)
--- NOTE | 2017-01-15 10:13 | HHI.PR ---
Subjective Remarks Follow-up sepsis and pneumonia. Did not sleep well secondary to IV pump keep going off overnight. Discussed with RN Objective Vitals Vital Signs Date Time Temp Pulse Resp B/P Pulse Ox O2 Delivery O2 Flow Rate FiO2 01/15/17 08:11 98 Nasal Cannula 2.00 01/15/17 06:00 88 01/15/17 05:00 86 01/15/17 04:00 84 01/15/17 04:00 98.3 89 16 123/65 98 01/15/17 03:00 79 01/15/17 02:00 88 01/15/17 01:00 84 01/15/17 00:00 62 01/15/17 00:00 97.7 98 18 108/52 97 01/14/17 23:00 99 01/14/17 22:00 100 01/14/17 21:10 97 Nasal Cannula 2.00 01/14/17 21:00 96 01/14/17 20:00 98.4 94 14 110/48 98 01/14/17 20:00 98 01/14/17 19:00 99 01/14/17 18:00 106 01/14/17 17:00 88 01/14/17 16:00 98.2 93 16 105/51 95 01/14/17 16:00 96 01/14/17 15:00 88 01/14/17 14:00 92 01/14/17 13:00 78 01/14/17 12:00 77 01/14/17 12:00 98.1 78 16 95/60 98 01/14/17 11:00 84 I/O 01/14/17 01/14/17 01/14/17 01/15/17 01/15/17 01/15/17 07:00 15:00 23:00 07:00 15:00 23:00 Intake Total 1847 ml 1229 ml Output Total 1750 ml 2051 ml Balance 97 ml -822 ml Intake Oral 780 ml 240 ml IV Total 1067 ml 989 ml Output Urine Total 1750 ml 2050 ml Stool Total 1 ml # Bowel Movements 1 Result Diagram: 01/14/17 0626 01/15/17 0458 Imaging Last Impressions Lower Extremity Ultrasound 01/14/17 0000 Signed Impressions: Service Date/Time: Saturday, January 14, 2017 18:08 - CONCLUSION: Normal examination. Sachin Gonzalez MD Chest X-Ray 01/13/17 1531 Signed Impressions: Service Date/Time: Friday, January 13, 2017 16:02 - CONCLUSION: Almost complete opacification of the left hemithorax, stable from prior. The right lungs clear. Dorian Vasquez MD Objective Remarks GENERAL: Not in distress, morbidly obese. SKIN: Warm and dry. No lesions noted. HEENT: Normocephalic. Pupils equal and round. Mucous membranes pink and moist. Tracheostomy is capped CARDIOVASCULAR: irregular rate and rhythm. No murmur appreciated. RESPIRATORY: No accessory muscle use. Clear to auscultation. Decreased breath sounds on the left. No wheezing. GASTROINTESTINAL: Abdomen soft, non-tender, nondistended. Bowel sounds x4. MUSCULOSKELETAL: No obvious deformities. No clubbing or cyanosis. 2+ edema mick LLE NEUROLOGICAL: Awake and alert, oriented 3. Bilateral lower showing any weakness. Upper extremity cyber security administrator strength intact. Moves lower extremities to command. Normal speech. PSYCHIATRIC: Appropriate mood and affect; insight and judgment normal. A/P Problem List: (1) Pneumonia ICD Code: J18.9 Status: Acute (2) Afib ICD Code: I48.91 Status: Chronic (3) Hypoxia ICD Code: R09.02 Status: Acute (4) CHF (congestive heart failure) ICD Code: I50.9 Status: Acute Assessment and Plan 66-year-old female with a past medical history of COPD, A. fib, HLD, HTN, GERD, DM who presents from SNF for shortness breath and cough Sepsis secondary to PNA: Tachycardia, tachypnea, WBC 12.8. Lactic acid within normal limits. Treatment for pneumonia as below. Follow up blood cultures growing GPC. Influenza screen negative. Chest x-ray shows continued opacification of the left hemithorax,unchanged when reviewed with previous imaging, patient is chronic atelectasis. Stop vancomycin and azithromycin, continue cefepime, follow-up sputum culture. Continue oxygen, antitussives. Leukocytosis resolved, consider ID consult Acute respiratory failure-pneumonia and diastolic CHF, will give a dose of Lasix , check echocardiogram. Consult pulmonary for possible bronchoscopy A. fib with RVR: Heart rate remains [id number], EKG reviewed, no ischemic changes. Given 20 mg total IV Cardizem in the ED. still on Cardizem gtt which will be discontinued. Continue Cardizem by mouth and home metoprolol. On Xarelto for anticoagulation. Patient states she cannot tolerate 20 mg Xarelto secondary to bleeding, we'll continue 10 mg daily. Switched albuterol to Xopenex. UTI: Catheter associated. UA with evidence of UTI. Exchange Solitario. Antibiotics as above. Fluconazole 1 for yeast. Follow-up culture with Yuly albicans. COPD with chronic respiratory failure: Does not seem to be in acute exacerbation currently. Continue daily prednisone and home pulmonary regimen. Diabetes mellitus: Continue home baseline insulin. Additional coverage with SSI with Accu-Cheks. Continue Lyrica for neuropathy. Stable Lower extremity negative for DVT per ultrasound of the left lower leg. Lasix as above. Monitor urine output Continue PT Prophylaxis: PPI. Xarelto. Problem Qualifiers (1) Pneumonia: Qualified Code: J18.1 - Pneumonia of left lower lobe due to infectious organism (2) Afib: Qualified Code: I48.91 - Atrial fibrillation, unspecified type Grey Osei MD Jan 15, 2017 10:13
--- NOTE | 2017-01-15 16:20 | MB ---
cc: RON CRAWFORD DATE OF CONSULTATION: 01/15/[address] Osei. REASON FOR CONSULTATION Evaluation for shortness of breath. HISTORY OF PRESENT ILLNESS Ms. Boone is a pleasant 66-year-old morbidly obese female with history of atrial fibrillation, COPD, hypertension, chronic tracheostomy tube. She is originally from [facility]. She was living with her daughter in this area. The patient was admitted in this hospital in October of 2016. She was found to have chronic atelectasis. She had a bronchoscopy done at that time which shows tracheal bronchomalacia, no endobronchial lesion was seen and she has tracheostomy. She currently lives in a [facility]. She was brought to the hospital with worsening of her shortness of breath. She has cough with yellow-green sputum production, did not have fever or chills. No night sweats. No nausea or vomiting. The patient had a workup done and her chest x-ray shows she has almost complete opacification of the left hemithorax which is stable. Ultrasound of the upper extremity shows no DVT. Her CBC showed WBC 7.5, hemoglobin 9.3, hematocrit 28.3, MCV 86, platelet count 141, sodium 144, potassium 2.9, chloride 100, CO2 35, BUN 90, creatinine 0.67. PAST MEDICAL HISTORY 1. History of hypotension. 2. Diabetes mellitus. 3. Gastroesophageal reflux disease. 4. Morbid obesity. 5. She has tracheostomy tube. 6. Atrial fibrillation. MEDICATIONS She is currently takin. Insulin. 2. Potassium supplement. 3. Diltiazem 30 mg q.6 hours. 4. Xopenex nebulizer treatment. 5. Lasix 40 mg twice a day. 6. Metolazone 2.5 mg daily. 7. Prednisone 20 mg a day. 8. Lyrica 75 mg a day. 9. Xarelto 10 mg a day. 10. Protonix 20 mg a day. 11. Cefepime 1 gram q. 12-hour. 12. Hydrocortisone cream. 13. Metoprolol 12.5 mg twice a day. 14. Flomax 0.4 mg at nighttime. 15. Pulmicort nebulizer treatment. 16. Diltiazem drip. ALLERGIES PENICILLIN. SOCIAL HISTORY She has no history of smoking or alcohol use. 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 FAMILY HISTORY She is a . She lives with her daughter. She has three children. REVIEW OF SYSTEMS She was able to walk with the help of a cane but is not walking now as she is in the [facility]. She feels extremely weak that is why she has not been walking. No seizure, stroke or epilepsy. No DVT or pulmonary embolism. PHYSICAL EXAMINATION GENERAL: A morbidly obese female, mild shortness of breath, not in acute distress. VITAL SIGNS: Blood pressure 103/59, heart rate 96, respirations 20, temperature 97.6. HEENT: Pupils are equal and reactive to light. Oral mucosa and nasal mucosa are normal. NECK: Supple. JVP not raised. CHEST: She has scattered rales. CVS: S1, D2 normal. ABDOMEN: Obese, nontender. Bowel sounds are present. EXTREMITIES: 1+ pedal edema. IMPRESSION 1. Opacification of the left lung which is chronic. 2. COPD. 3. Atelectasis. 4. Atrial fibrillation. 5. Status post tracheostomy. 6. Morbid obesity. 7. Atrial fibrillation. 8. Hypotension. 9. Diabetes mellitus. PLAN The patient will get a CT scan of the chest, if need to will consider bronchoscopy. Continue aerosol treatment, antibiotic and she is on Xarelto. Monitor her heart rate and blood pressure and blood sugar. Further treatment will depend on the course in the hospital. Thank you Dr. Osei for this consultation. MD VAN Monsalve/JEFF /3:30 PM /3:54 PM
--- NOTE | 2017-01-15 16:26 | EC ---
Study Study Date:01/15/2017 STUDY CONCLUSIONS SUMMARY - Left ventricle: The cavity size was normal. Wall thickness was normal. Systolic function was normal. The estimated ejection fraction was in the range of 55% to 60%. - Mitral valve: Mild regurgitation. - Left atrium: The atrium was moderately dilated. If LV function is below 40, please consider prescribing an ACEI or ARB or document rationale for non-use. PROCEDURE DATA STUDY STATUS: Elective. Procedure: Transthoracic echocardiography. Image quality was poor. Scanning was performed from the parasternal, apical, and subcostal acoustic windows. Study completion: The patient tolerated the procedure well. Transthoracic echocardiography. M-mode, complete 2D, complete spectral Doppler, and color Doppler. Height: Height: 64in. Weight: Weight: 307.4lb. Body mass index: BMI: 52.9kg/m^2. Body surface area: BSA: 2.35m^2. Patient status: Inpatient. CARDIAC ANATOMY LEFT VENTRICLE: The cavity size was normal. Wall thickness was normal. Systolic function was normal. The estimated ejection fraction was in the range of 55% to 60%. Images were inadequate for LV wall motion assessment. AORTIC VALVE: Not well visualized. Trileaflet; normal thickness leaflets. Doppler: Transvalvular velocity was within the normal range. There was no stenosis. No regurgitation. AORTA: Aortic root: The aortic root was normal in size. MITRAL VALVE: Structurally normal valve. Doppler: Transvalvular velocity was within the normal range. There was no evidence for stenosis. Mild regurgitation. Valve area by pressure half-time: 5.37cm^2. Indexed valve area by pressure half-time: 2.29cm^2/m^2. Peak gradient: 3mm Hg (D). LEFT ATRIUM: The atrium was moderately dilated. RIGHT VENTRICLE: The cavity size was normal. Wall thickness was normal. PULMONIC VALVE: Not well visualized. Doppler: No regurgitation. TRICUSPID VALVE: Structurally normal valve. Doppler: Transvalvular velocity was within the normal range. Trace regurgitation. Peak gradient: 6mm Hg (D). PULMONARY ARTERY: The main pulmonary artery was normal-sized. Systolic pressure was within the normal range. RIGHT ATRIUM: The atrium was normal in size. PERICARDIUM: There was no pericardial effusion. Patient weight: 307.4lb _Ejection fraction:_ 65-75% _Fractional shortening:_ 32% up to 5Kg 5-11.5Kg 11.6-22.9Kg 23-45Kg 45-57Kg Aortic Root 7-13 <17 13-22 17-27 17-27 LA diam 6-13 <23 24-38 33-47 37-40 RVID 10-17 7-15 7-15 7-18 8-17 LVIDd 12-22 <32 24-38 33-47 37-40 LVPW 2-4 3-6 5-7 6-8 7-8 IVS 2-4 3-6 5-7 6-8 7-8 BASIC MEASUREMENTS ADULT NORMAL Left ventricle Volume, ED, MOD, 1-plane 64 ml Volume, ES, MOD, 1-plane 29 ml Ejection fraction, MOD, 1-plane 55 % Stroke volume, MOD, 1-plane 35 ml Volume index, ED, MOD, 1-plane 27 ml/m^2 Volume index, ES, MOD, 1-plane 12 ml/m^2 Stroke index, MOD, 1-plane 14.9 ml/m^2 Aortic valve Leaflet separation 19 mm 15-26 BASIC MEASUREMENTS ADULT NORMAL Aortic valve Leaflet separation 19 mm 15-26 Aorta Root diameter, ED 22 mm 20-37 Left atrium Anterior-posterior dimension, ES *47 mm 19-40 Anterior-posterior dimension index, ES 2 cm/m^2 <2.2 LA/aortic root ratio 2.14 DOPPLER MEASUREMENTS ADULT NORMAL Aortic valve Peak velocity, S 118 cm/s Mitral valve Peak E-wave velocity 85.9 cm/s Peak A-wave velocity 35 cm/s Pressure half-time 41 ms Peak gradient, D 3 mm Hg Peak E/A ratio 2.5 Valve area, pressure half-time 5.37 cm^2 Valve area index, pressure half-time 2.29 cm^2/m^2 Tricuspid valve Peak gradient, D 6 mm Hg Maximal inflow velocity 125 cm/s Systemic veins Estimated CVP 10 mm Hg Pulmonic valve Peak velocity, S 132 cm/s LEGEND: Mean values are shown as u=mean value. Asterisk (*) norton values outside specified normal range. Prepared and signed by Brenden Santillan [id number]
--- NOTE | 2017-01-15 18:12 | RADRPT ---
EXAM DATE/TIME: 01/15/2017 17:13 [facility] COMPARISON: CHEST SINGLE AP, January 13, 2017, 16:02. INDICATIONS : Evaluate for atelactesis. RADIATION DOSE: 9.89 CTDIvol (mGy) MEDICAL HISTORY : Congestive heart failure. Hypertension. Asthma SURGICAL HISTORY : None. ENCOUNTER: Initial ACUITY: 1 day PAIN SCALE: 0/10 LOCATION: Bilateral chest TECHNIQUE: Volumetric scanning of the chest was performed. Using automated exposure control and adjustment of t he mA and/or kV according to patient size, radiation dose was kept as low as reasonably achievable to obtain optimal diagnostic quality images. FINDINGS: There is consolidation in the left lower lobe with slight atelectasis and/or infiltrate in the lingul a. The right lung is clear. There is no pleural effusion. No appreciable pathological adenopathy is seen within the mediastinum. Coronary artery calcifications are seen typically seen with CAD and nee d to be evaluated clinically. CONCLUSION: 1. Dense consolidation left lung base suspicious for pneumonia. Underlying mass is not excluded at th is time. 2. Cholelithiasis. Allen Mensah MD on January 15, 2017 at 18:07 Board Certified Radiologist. This report was verified electronically.
[2017-01-15] MEDS: PATIENT OWN MEDICATION TOPICAL SCH (21:00)
[2017-01-15] MEDS: TAMSULOSIN HCL 0.4 MG CAP PO SCH (21:52)
[2017-01-16] VITALS (26 sets, daily range): BP systolic 122–136; BP diastolic 57–70; PULSE 77–114; RESP 14–20; TEMP 97.3–98.7; O2SAT 93–99
[2017-01-16] MEDS: CEFEPIME INJ 1,000 MG in SODIUM CHLORIDE 0.9% INJ 100 ML IV SCH ×2 (05:04→17:39)
[2017-01-16] MEDS: DILTIAZEM HCL 30 MG TAB PO SCH ×4 (05:04→23:08)
[2017-01-16 05:53] LABS: AUTOMATED NEUTROPHIL # 5.7 TH/MM3 (1.8-7.7); BASOPHIL % 0.2 % (0.0-2.0); EOSINOPHIL # 0.1 TH/MM3 (0-0.4); EOSINOPHIL % 0.8 % (0.0-4.0); HEMATOCRIT 29.5 % (35.0-46.0); LYMPH % 10.6 % (9.0-44.0); LYMPHOCYTE # 0.8 TH/MM3 (1.0-4.8); MEAN CORPUSCULAR HEMOGLOBIN 27.9 PG (27.0-34.0); MEAN CORPUSCULAR HGB CONC 32.8 % (32.0-36.0); NEUT % 78.4 % (16.0-70.0); PLATELET COUNT 179 TH/MM3 (150-450); RED BLOOD COUNT 3.47 MIL/MM3 (4.00-5.30); RED CELL DISTRIBUTION WIDTH 22.3 % (11.6-17.2); WHITE BLOOD COUNT 7.3 TH/MM3 (4.0-11.0)
[2017-01-16 06:06] LABS: HEMO FLAGS AUTO DIFF
[2017-01-16 06:08] LABS: BICARBONATE 38.4 MEQ/L (21.0-32.0); MAGNESIUM 1.4 MG/DL (1.5-2.5); POTASSIUM 3.2 MEQ/L (3.5-5.1)
[2017-01-16] MEDS: DEXTROSE 50% IN WATER 50 ML VIAL(D50) IV PUSH PRN (06:32)
[2017-01-16] MEDS: INSULIN ASPART SUPPLEMENTAL SCALE SQ SCH ×4 (07:00→21:09)
[2017-01-16 08:09] LABS: BANDS 2 % (0-6); EOSINOPHILS 2 % (0-4); METAMYELOCYTES 1 % (0-1); NEUTROPHIL # MANUAL DIFF 5.8 TH/MM3 (1.8-7.7); PLATELET ESTIMATE SMEAR NORMAL (NORMAL); PLATELET MORPHOLOGY NORMAL (NORMAL); POLYS (SEG NEUTROPHILS) 76 % (16-70); SCAN/DIFF FINAL DIFF MANUAL; WBC DIFF SAMPLE 100
[2017-01-16] MEDS: RESP: LEVALBUTEROL HYDROCHLORIDE 1.25 MG/3 ML NEB (SCH) NEB ×3 (08:15→20:39)
[2017-01-16] MEDS: RESP: BUDESONIDE 0.5 MG/2 ML NEB NEB SCH ×2 (08:15→20:39)
[2017-01-16] MEDS: HYDROCORTISONE ACETATE 25 MG SUPP RECTAL SCH ×2 (09:00→21:00)
[2017-01-16] MEDS: PATIENT OWN MEDICATION TOPICAL SCH ×2 (09:00→21:00)
[2017-01-16] MEDS: SODIUM CHLORIDE 0.9% FLUSH 10 ML FLUSH IV FLUSH SCH ×2 (09:31→21:11)
[2017-01-16] MEDS: FUROSEMIDE 40 MG/4 ML VIAL IV PUSH SCH ×2 (09:32→17:37)
[2017-01-16] MEDS: INSULIN DETEMIR 100 UNITS/ML VIAL SQ SCH ×2 (09:33→17:40)
[2017-01-16] MEDS: PANTOPRAZOLE SOD 20 MG DELAYED RELEASE TAB PO SCH (09:34)
[2017-01-16] MEDS: RIVAROXABAN 10 MG TAB PO SCH (09:34)
[2017-01-16] MEDS: POTASSIUM CHLORIDE 20 MEQ CONTROLLED RELEASE TAB PO SCH ×4 (09:34→21:00)
[2017-01-16] MEDS: METOPROLOL TARTRATE 25 MG TAB PO SCH ×2 (09:34→21:00)
[2017-01-16] MEDS: predniSONE 20 MG TAB PO SCH (09:35)
[2017-01-16] MEDS: METOLAZONE 2.5 MG TAB PO SCH (09:35)
[2017-01-16] MEDS: PREGABALIN 75 MG CAP PO SCH (09:35)
[2017-01-16] MEDS ORDERED: MAGNESIUM SULFATE 1 GM PREMIX 100 ML IV ONE (10:30)
--- NOTE | 2017-01-16 10:39 | HHI.PR ---
Subjective Remarks Follow-up respiratory failure. Stable on 2 L nasal cannula. Upset earlier today she didn't want to get out of bed secondary to cramping of the left lower extremity transiently went to RVR. Discussed with pulmonary and RN Objective Vitals Vital Signs Date Time Temp Pulse Resp B/P Pulse Ox O2 Delivery O2 Flow Rate FiO2 01/16/17 08:18 99 Nasal Cannula 2.00 01/16/17 06:00 84 01/16/17 05:00 88 01/16/17 04:00 97.3 110 14 124/70 95 01/16/17 04:00 90 01/16/17 03:00 98 01/16/17 02:00 98 01/16/17 01:00 90 01/16/17 00:00 97.8 94 18 123/64 99 01/16/17 00:00 102 01/15/17 23:00 101 01/15/17 22:00 106 01/15/17 21:00 114 01/15/17 20:00 118 01/15/17 20:00 98.1 104 16 117/63 99 01/15/17 19:43 95 Nasal Cannula 2.00 01/15/17 19:00 119 01/15/17 18:00 104 01/15/17 17:00 102 01/15/17 16:09 82 01/15/17 16:09 97.9 82 20 113/73 96 01/15/17 16:00 106 01/15/17 15:00 110 01/15/17 13:00 90 01/15/17 12:00 90 01/15/17 12:00 98.5 88 20 99/61 96 01/15/17 11:00 86 I/O 01/15/17 01/15/17 01/15/17 01/16/17 01/16/17 01/16/17 07:00 15:00 23:00 07:00 15:00 23:00 Intake Total 1229 ml 971 ml 580 ml Output Total 2051 ml 1500 ml 1950 ml Balance -822 ml -529 ml -1370 ml Intake Oral 240 ml 750 ml 480 ml IV Total 989 ml 221 ml 100 ml Output Urine Total 2050 ml 1500 ml 1950 ml Stool Total 1 ml # Bowel Movements 0 Result Diagram: 01/16/17 0500 01/16/17 0500 Imaging Last Impressions Chest CT 01/15/17 0000 Signed Impressions: Service Date/Time: Sunday, January 15, 2017 17:13 - CONCLUSION: 1. Dense consolidation left lung base suspicious for pneumonia. Underlying mass is not excluded at this time. 2. Cholelithiasis. Allen Mensah MD Lower Extremity Ultrasound 01/14/17 0000 Signed Impressions: Service Date/Time: Saturday, January 14, 2017 18:08 - CONCLUSION: Normal examination. Sachin Gonzalez MD Chest X-Ray 01/13/17 1531 Signed Impressions: Service Date/Time: Friday, January 13, 2017 16:02 - CONCLUSION: Almost complete opacification of the left hemithorax, stable from prior. The right lungs clear. Dorian Vasquez MD Objective Remarks GENERAL: Not in distress, morbidly obese. SKIN: Warm and dry. No lesions noted. HEENT: Normocephalic. Pupils equal and round. Mucous membranes pink and moist. Tracheostomy is capped CARDIOVASCULAR: irregular rate and rhythm. No murmur appreciated. RESPIRATORY: No accessory muscle use. Clear to auscultation. Decreased breath sounds on the left. No wheezing. GASTROINTESTINAL: Abdomen soft, non-tender, nondistended. Bowel sounds x4. MUSCULOSKELETAL: No obvious deformities. No clubbing or cyanosis. 2+ edema mick LLE NEUROLOGICAL: Awake and alert, oriented 3. Bilateral lower showing any weakness. 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 Moves lower extremities to command. Normal speech. PSYCHIATRIC: Appropriate mood and affect; insight and judgment normal. A/P Problem List: (1) Pneumonia ICD Code: J18.9 Status: Acute (2) Afib ICD Code: I48.91 Status: Chronic (3) Hypoxia ICD Code: R09.02 Status: Acute (4) CHF (congestive heart failure) ICD Code: I50.9 Status: Acute Assessment and Plan 66-year-old female with a past medical history of COPD, A. fib, HLD, HTN, GERD, DM who presents from SNF for shortness breath and cough Sepsis secondary to PNA: Tachycardia, tachypnea, WBC 12.8. Lactic acid within normal limits. Treatment for pneumonia as below. Follow up blood cultures growing GPC. Influenza screen negative. Chest x-ray shows continued opacification of the left hemithorax,unchanged when reviewed with previous imaging, patient is chronic atelectasis. CT shows pneumonia continue cefepime, follow-up sputum culture. Continue oxygen, antitussives. Leukocytosis resolved , Bacteremia 1 bottle growing coag-negative and another bottle with GPC. Two other bottles negative to date. Could be pseudobacteremia repeat blood culture in the morning consider ID consult. Patient clinically stable Acute respiratory failure-pneumonia and diastolic CHF, stable continue IV Lasix preserved EF. Consulted pulmonary for possible bronchoscopy A. fib with RVR: Heart rate remains [id number], EKG reviewed, no ischemic changes. Given 20 mg total IV Cardizem in the ED. RVR secondary to agitation. Cardizem drip as needed. Continue Cardizem by mouth and home metoprolol. On Xarelto for anticoagulation. Patient states she cannot tolerate 20 mg Xarelto secondary to bleeding, we'll continue 10 mg daily. Switched albuterol to Xopenex. UTI: Catheter associated. UA with evidence of UTI. Exchanged Solitario. Antibiotics as above. Fluconazole 1 for yeast. Follow-up culture with Yuly albicans. We will repeat urine culture after Solitario exchange COPD with chronic respiratory failure: Does not seem to be in acute exacerbation currently. Continue daily prednisone and home pulmonary regimen. Diabetes mellitus: Hypoglycemic this morning decreased Levemir to 38 units at bedtime and continue 40 units in the morning. Coverage with SSI with Accu- Cheks. Continue Lyrica for neuropathy. Lower extremity negative for DVT per ultrasound of the left lower leg. Lasix as above. Monitor urine output Continue PT Prophylaxis: PPI. Xarelto. Discharge Planning Not ready for discharge Problem Qualifiers (1) Pneumonia: Qualified Code: J18.1 - Pneumonia of left lower lobe due to infectious organism (2) Afib: Qualified Code: I48.91 - Atrial fibrillation, unspecified type Grey Osei MD Jan 16, 2017 10:39
[2017-01-16] MEDS: MAGNESIUM OXIDE 400 MG TAB PO SCH ×2 (10:50→21:00)
--- NOTE | 2017-01-16 11:29 | HHI.PR ---
Subjective Remarks YO Obese female with Trach, opacification of left lung CT chest large infilt left base No fever Feels better On NC Objective Vital Signs Vital Signs Date Time Temp Pulse Resp B/P Pulse Ox O2 Delivery O2 Flow Rate FiO2 01/16/17 08:18 99 Nasal Cannula 2.00 01/16/17 06:00 84 01/16/17 05:00 88 01/16/17 04:00 97.3 110 14 124/70 95 01/16/17 04:00 90 01/16/17 03:00 98 01/16/17 02:00 98 01/16/17 01:00 90 01/16/17 00:00 97.8 94 18 123/64 99 01/16/17 00:00 102 01/15/17 23:00 101 01/15/17 22:00 106 01/15/17 21:00 114 01/15/17 20:00 118 01/15/17 20:00 98.1 104 16 117/63 99 01/15/17 19:43 95 Nasal Cannula 2.00 01/15/17 19:00 119 01/15/17 18:00 104 01/15/17 17:00 102 01/15/17 16:09 82 01/15/17 16:09 97.9 82 20 113/73 96 01/15/17 16:00 106 01/15/17 15:00 110 01/15/17 13:00 90 01/15/17 12:00 90 01/15/17 12:00 98.5 88 20 99/61 96 I/O 01/15/17 01/15/17 01/15/17 01/16/17 01/16/17 01/16/17 07:00 15:00 23:00 07:00 15:00 23:00 Intake Total 1229 ml 971 ml 580 ml Output Total 2051 ml 1500 ml 1950 ml Balance -822 ml -529 ml -1370 ml Intake Oral 240 ml 750 ml 480 ml IV Total 989 ml 221 ml 100 ml Output Urine Total 2050 ml 1500 ml 1950 ml Stool Total 1 ml # Bowel Movements 0 Result Diagram: 01/16/17 0500 01/16/17 0500 Objective Remarks GENERAL: Obese female Mild sob SKIN: Warm and dry. HEAD: Normocephalic. EYES: No scleral icterus. No injection or drainage. NECK: Supple, trachea midline. No JVD or lymphadenopathy. has Trach, capped CARDIOVASCULAR: Regular rate and rhythm without murmurs, gallops, or rubs. RESPIRATORY: Breath sounds equal bilaterally. No accessory muscle use. GASTROINTESTINAL: Abdomen soft, non-tender, nondistended. MUSCULOSKELETAL: No cyanosis, or edema. BACK: Nontender without obvious deformity. No CVA tenderness. A/P Assessment and Plan Left lower infilt, no obdst of airways COPD Trach AF DM Morbid obesity PLAN: Aerosol nebs Cont Abx Acapella monitor BS Cont Xarelto DW Pt, no need for bronch at this time Emmett Cooper MD Jan 16, 2017 11:29
[2017-01-16] MEDS ORDERED: DILTIAZEM INJ 125 MG in SODIUM CHLORIDE 0.9% INJ 100 ML IV PRN (12:00)
[2017-01-16] MEDS: TAMSULOSIN HCL 0.4 MG CAP PO SCH (20:59)
[2017-01-17] VITALS (26 sets, daily range): BP systolic 97–148; BP diastolic 59–78; PULSE 86–117; RESP 18–20; TEMP 97.4–97.9; O2SAT 95–99
[2017-01-17] MEDS: DILTIAZEM HCL 30 MG TAB PO SCH ×3 (05:13→18:30)
[2017-01-17] MEDS: CEFEPIME INJ 1,000 MG in SODIUM CHLORIDE 0.9% INJ 100 ML IV SCH ×2 (05:13→18:29)
[2017-01-17] MEDS: INSULIN ASPART SUPPLEMENTAL SCALE SQ SCH ×4 (06:16→20:56)
[2017-01-17] MEDS: RESP: BUDESONIDE 0.5 MG/2 ML NEB NEB SCH ×2 (07:40→19:24)
[2017-01-17] MEDS: RESP: LEVALBUTEROL HYDROCHLORIDE 1.25 MG/3 ML NEB (SCH) NEB ×3 (07:42→19:24)
[2017-01-17] MEDS: FUROSEMIDE 40 MG/4 ML VIAL IV PUSH SCH (08:19)
[2017-01-17] MEDS: predniSONE 20 MG TAB PO SCH (08:19)
[2017-01-17] MEDS: METOPROLOL TARTRATE 25 MG TAB PO SCH ×2 (08:19→20:55)
[2017-01-17] MEDS: PREGABALIN 75 MG CAP PO SCH (08:20)
[2017-01-17] MEDS: PANTOPRAZOLE SOD 20 MG DELAYED RELEASE TAB PO SCH (08:20)
[2017-01-17] MEDS: MAGNESIUM OXIDE 400 MG TAB PO SCH ×2 (08:20→20:55)
[2017-01-17] MEDS: METOLAZONE 2.5 MG TAB PO SCH (08:20)
[2017-01-17] MEDS: POTASSIUM CHLORIDE 20 MEQ CONTROLLED RELEASE TAB PO SCH ×4 (08:20→20:55)
[2017-01-17] MEDS: RIVAROXABAN 10 MG TAB PO SCH (08:20)
[2017-01-17] MEDS: SODIUM CHLORIDE 0.9% FLUSH 10 ML FLUSH IV FLUSH SCH ×2 (08:20→20:56)
[2017-01-17] MEDS: HYDROCORTISONE ACETATE 25 MG SUPP RECTAL SCH ×3 (08:21→21:00)
[2017-01-17] MEDS: INSULIN DETEMIR 100 UNITS/ML VIAL SQ SCH ×2 (08:21→15:56)
[2017-01-17] MEDS: PATIENT OWN MEDICATION TOPICAL SCH ×2 (08:30→20:56)
[2017-01-17 12:07] LABS: BICARBONATE 39.6 MEQ/L (21.0-32.0); MAGNESIUM 1.6 MG/DL (1.5-2.5)
--- NOTE | 2017-01-17 14:27 | HHI.PR ---
Subjective Remarks Follow-up respiratory failure. Patient states she is breathing better down to 2 L. She did tolerate being on room air for a short period of time. Improved left leg pain. Discussed with RN Objective Vitals Vital Signs Date Time Temp Pulse Resp B/P Pulse Ox O2 Delivery O2 Flow Rate FiO2 01/17/17 14:01 104 01/17/17 13:16 117 01/17/17 12:23 107 01/17/17 12:23 97.8 116 18 98/67 98 01/17/17 11:53 99 01/17/17 10:07 90 01/17/17 09:31 18 01/17/17 09:01 116 01/17/17 08:31 102 01/17/17 08:31 97.5 90 20 101/67 99 01/17/17 07:43 98 Nasal Cannula 2.00 01/17/17 07:35 107 01/17/17 06:11 98 01/17/17 05:47 99 01/17/17 04:30 97.5 92 18 114/78 98 01/17/17 04:30 105 01/17/17 03:00 91 01/17/17 03:00 97.5 92 18 114/78 98 01/17/17 02:00 100 01/17/17 01:42 98 01/17/17 00:35 97.4 99 18 97/59 95 01/17/17 00:27 94 01/16/17 23:33 96 01/16/17 22:11 94 01/16/17 21:00 111 01/16/17 20:40 94 21 01/16/17 20:00 114 01/16/17 20:00 98.7 110 20 122/60 93 01/16/17 20:00 107 01/16/17 19:00 98.7 110 20 122/60 93 01/16/17 19:00 107 01/16/17 18:00 112 01/16/17 17:00 100 01/16/17 16:00 102 01/16/17 16:00 102 18 128/63 93 01/16/17 15:00 100 I/O 01/16/17 01/16/17 01/16/17 01/17/17 01/17/17 01/17/17 07:00 15:00 23:00 07:00 15:00 23:00 Intake Total 580 ml 1025 ml 1070 ml Output Total 1950 ml 2000 ml 1600 ml Balance -1370 ml -975 ml -530 ml Intake Oral 480 ml 925 ml 820 ml IV Total 100 ml 100 ml 250 ml Output Urine Total 1950 ml 2000 ml 1600 ml # Bowel Movements 0 0 Result Diagram: 01/16/17 0500 01/17/17 1129 Objective Remarks GENERAL: Not in distress, morbidly obese. SKIN: Warm and dry. No lesions noted. HEENT: Normocephalic. Pupils equal and round. Mucous membranes pink and moist. Tracheostomy is capped CARDIOVASCULAR: irregular rate and rhythm. No murmur appreciated. RESPIRATORY: No accessory muscle use. Clear to auscultation. Decreased breath sounds on the left. No wheezing. GASTROINTESTINAL: Abdomen soft, non-tender, nondistended. Bowel sounds x4. MUSCULOSKELETAL: No obvious deformities. No clubbing or cyanosis. 2+ edema mick LLE NEUROLOGICAL: Awake and alert, oriented 3. Bilateral lower showing any weakness. 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 Moves lower extremities to command. Normal speech. PSYCHIATRIC: Appropriate mood and affect; insight and judgment normal. A/P Problem List: (1) Pneumonia ICD Code: J18.9 Status: Acute (2) Afib ICD Code: I48.91 Status: Chronic (3) Hypoxia ICD Code: R09.02 Status: Acute (4) CHF (congestive heart failure) ICD Code: I50.9 Status: Acute Assessment and Plan 66-year-old female with a past medical history of COPD, A. fib, HLD, HTN, GERD, DM who presents from SNF for shortness breath and cough Sepsis secondary to PNA: Tachycardia, tachypnea, WBC 12.8. Lactic acid within normal limits. Treatment for pneumonia as below. Follow up blood cultures growing GPC. Influenza screen negative. Chest x-ray shows continued opacification of the left hemithorax,unchanged when reviewed with previous imaging, patient is chronic atelectasis. CT shows pneumonia continue cefepime, follow-up sputum culture. Continue oxygen, antitussives. Leukocytosis resolved , Bacteremia 2 out of 4 growing coag-negative. Two other bottles negative to date. Could be pseudobacteremia repeat blood culture today consider ID consult. Patient clinically stable Acute respiratory failure-pneumonia and diastolic CHF, improved switched to by mouth Lasix preserved EF. Consulted pulmonary no need for bronchoscopy A. fib with RVR: Heart rate remains [id number], EKG reviewed, no ischemic changes. Given 20 mg total IV Cardizem in the ED. RVR secondary to agitation. Cardizem drip as needed. Continue Cardizem by mouth and home metoprolol. On Xarelto for anticoagulation. Patient states she cannot tolerate 20 mg Xarelto secondary to bleeding, we'll continue 10 mg daily. Switched albuterol to Xopenex. UTI: Catheter associated. UA with evidence of UTI. Exchanged Solitario. Antibiotics as above. Fluconazole 1 for yeast. Follow-up culture with Yuly albicans and glabrata. Follow-up repeat urine culture after Solitario exchange COPD with chronic respiratory failure: Does not seem to be in acute exacerbation currently. Continue daily prednisone and home pulmonary regimen. Diabetes mellitus: Continue Levemir to 38 units at bedtime and 40 units in the morning. Coverage with SSI with Accu-Cheks. Continue Lyrica for neuropathy. Lower extremity negative for DVT per ultrasound of the left lower leg. Lasix as above. Monitor urine output Continue PT Prophylaxis: PPI. Xarelto. Discharge Planning Not ready for discharge Problem Qualifiers (1) Pneumonia: Qualified Code: J18.1 - Pneumonia of left lower lobe due to infectious organism (2) Afib: Qualified Code: I48.91 - Atrial fibrillation, unspecified type Grey Osei MD Jan 17, 2017 14:27
--- NOTE | 2017-01-17 20:30 | HHI.PR ---
Subjective Remarks YO Obese female with Trach, opacification of left lung CT chest large infilt left base No fever Feels better On NC breathing better has cough and sputum Objective Vital Signs Vital Signs Date Time Temp Pulse Resp B/P Pulse Ox O2 Delivery O2 Flow Rate FiO2 01/17/17 20:00 97.9 93 18 148/76 97 01/17/17 19:24 99 Nasal Cannula 2.00 01/17/17 18:01 105 01/17/17 17:04 96 01/17/17 16:36 109 01/17/17 16:36 97.9 86 18 115/64 97 01/17/17 15:10 88 01/17/17 14:01 104 01/17/17 13:16 117 01/17/17 12:23 107 01/17/17 12:23 97.8 116 18 98/67 98 01/17/17 11:53 99 01/17/17 10:07 90 01/17/17 09:31 18 01/17/17 09:01 116 01/17/17 08:31 102 01/17/17 08:31 97.5 90 20 101/67 99 01/17/17 07:43 98 Nasal Cannula 2.00 01/17/17 07:35 107 01/17/17 06:11 98 01/17/17 05:47 99 01/17/17 04:30 97.5 92 18 114/78 98 01/17/17 04:30 105 01/17/17 03:00 91 01/17/17 03:00 97.5 92 18 114/78 98 01/17/17 02:00 100 01/17/17 01:42 98 01/17/17 00:35 97.4 99 18 97/59 95 01/17/17 00:27 94 01/16/17 23:33 96 01/16/17 22:11 94 01/16/17 21:00 111 01/16/17 20:40 94 21 I/O 01/16/17 01/16/17 01/16/17 01/17/17 01/17/17 01/17/17 07:00 15:00 23:00 07:00 15:00 23:00 Intake Total 580 ml 1025 ml 1070 ml 1220 ml Output Total 1950 ml 2000 ml 1600 ml 1400 ml Balance -1370 ml -975 ml -530 ml -180 ml Intake Oral 480 ml 925 ml 820 ml 960 ml IV Total 100 ml 100 ml 250 ml 260 ml Output Urine Total 1950 ml 2000 ml 1600 ml 1400 ml # Bowel Movements 0 0 0 Result Diagram: 01/16/17 0500 01/17/17 1129 Objective Remarks GENERAL: Obese female Mild sob SKIN: Warm and dry. HEAD: Normocephalic. EYES: No scleral icterus. No injection or drainage. NECK: Supple, trachea midline. No JVD or lymphadenopathy. has Trach, capped CARDIOVASCULAR: Regular rate and rhythm without murmurs, gallops, or rubs. RESPIRATORY: Breath sounds equal bilaterally. No accessory muscle use. GASTROINTESTINAL: Abdomen soft, non-tender, nondistended. MUSCULOSKELETAL: No cyanosis, or edema. BACK: Nontender without obvious deformity. No CVA tenderness. A/P Assessment and Plan Left lower infilt, no obdst of airways COPD Trach AF DM Morbid obesity PLAN: Aerosol nebs Cont Abx Acapella monitor BS Cont Xarelto DW Pt, no need for bronch at this time Acapella q 1 hr Emmett Cooper MD Jan 17, 2017 20:29
[2017-01-17] MEDS: TAMSULOSIN HCL 0.4 MG CAP PO SCH (20:56)
[2017-01-18] VITALS (25 sets, daily range): BP systolic 89–151; BP diastolic 60–97; PULSE 74–116; RESP 14–18; TEMP 97.4–97.9; O2SAT 92–100
[2017-01-18] MEDS: DILTIAZEM HCL 30 MG TAB PO SCH ×5 (00:10→23:20)
[2017-01-18] MEDS: CEFEPIME INJ 1,000 MG in SODIUM CHLORIDE 0.9% INJ 100 ML IV SCH ×2 (05:00→17:39)
[2017-01-18] MEDS: DEXTROSE 50% IN WATER 50 ML VIAL(D50) IV PUSH PRN ×2 (05:20→05:41)
[2017-01-18] MEDS: INSULIN ASPART SUPPLEMENTAL SCALE SQ SCH ×4 (05:49→21:00)
[2017-01-18 06:33] LABS: BICARBONATE 40.8 MEQ/L (21.0-32.0); MAGNESIUM 1.7 MG/DL (1.5-2.5)
[2017-01-18] MEDS: RESP: LEVALBUTEROL HYDROCHLORIDE 1.25 MG/3 ML NEB (SCH) NEB ×2 (07:50→12:47)
[2017-01-18] MEDS: RESP: BUDESONIDE 0.5 MG/2 ML NEB NEB SCH ×2 (07:50→20:49)
[2017-01-18] MEDS ORDERED: BISACODYL 10 MG SUPP RECTAL PRN (08:00)
[2017-01-18] MEDS ORDERED: MAGNESIUM HYDROXIDE SUSP 30 ML CUP PO PRN (08:00)
[2017-01-18] MEDS: RIVAROXABAN 10 MG TAB PO SCH (08:32)
[2017-01-18] MEDS: METOLAZONE 2.5 MG TAB PO SCH (08:32)
[2017-01-18] MEDS: DOCUSATE SODIUM 50 MG/SENNA 8.6 MG TAB PO SCH ×2 (08:32→21:05)
[2017-01-18] MEDS: PREGABALIN 75 MG CAP PO SCH (08:33)
[2017-01-18] MEDS: predniSONE 20 MG TAB PO SCH (08:33)
[2017-01-18] MEDS: POTASSIUM CHLORIDE 20 MEQ CONTROLLED RELEASE TAB PO SCH ×4 (08:33→21:05)
[2017-01-18] MEDS: FUROSEMIDE 40 MG TAB PO SCH (08:33)
[2017-01-18] MEDS: MAGNESIUM OXIDE 400 MG TAB PO SCH ×2 (08:33→21:10)
[2017-01-18] MEDS: PANTOPRAZOLE SOD 20 MG DELAYED RELEASE TAB PO SCH (08:33)
[2017-01-18] MEDS: METOPROLOL TARTRATE 25 MG TAB PO SCH ×2 (08:33→21:10)
[2017-01-18] MEDS: HYDROCORTISONE ACETATE 25 MG SUPP RECTAL SCH ×2 (08:34→21:00)
[2017-01-18] MEDS: SODIUM CHLORIDE 0.9% FLUSH 10 ML FLUSH IV FLUSH SCH ×2 (08:35→21:12)
[2017-01-18] MEDS: PATIENT OWN MEDICATION TOPICAL SCH ×2 (08:37→21:00)
--- NOTE | 2017-01-18 09:37 | HHI.PR ---
Subjective Remarks Follow-up pneumonia. Productive cough of green phlegm. Tolerating nasal cannula. Discussed with RN in case management Objective Vitals Vital Signs Date Time Temp Pulse Resp B/P Pulse Ox O2 Delivery O2 Flow Rate FiO2 01/18/17 09:18 93 01/18/17 08:41 97.4 74 18 120/70 100 01/18/17 08:41 107 01/18/17 07:52 92 Nasal Cannula 3.00 01/18/17 07:29 115 01/18/17 06:00 96 01/18/17 05:00 116 01/18/17 04:00 97.4 100 14 151/90 100 01/18/17 04:00 85 01/18/17 03:00 90 01/18/17 02:00 94 01/18/17 01:00 86 01/18/17 00:00 87 01/18/17 00:00 97.7 99 14 133/86 98 01/17/17 23:00 94 01/17/17 22:00 96 01/17/17 21:00 106 01/17/17 20:00 91 01/17/17 20:00 97.9 93 18 148/76 97 01/17/17 19:24 99 Nasal Cannula 2.00 01/17/17 18:01 105 01/17/17 17:04 96 01/17/17 16:36 109 01/17/17 16:36 97.9 86 18 115/64 97 01/17/17 15:10 88 01/17/17 14:01 104 01/17/17 13:16 117 01/17/17 12:23 107 01/17/17 12:23 97.8 116 18 98/67 98 01/17/17 11:53 99 01/17/17 10:07 90 I/O 01/17/17 01/17/17 01/17/17 01/18/17 01/18/17 01/18/17 07:00 15:00 23:00 07:00 15:00 23:00 Intake Total 1070 ml 1220 ml Output Total 1600 ml 1400 ml Balance -530 ml -180 ml Intake Oral 820 ml 960 ml IV Total 250 ml 260 ml Output Urine Total 1600 ml 1400 ml # Bowel Movements 0 0 Result Diagram: 01/16/17 0500 01/18/17 0530 Imaging Last Impressions Chest CT 01/15/17 0000 Signed Impressions: Service Date/Time: Sunday, January 15, 2017 17:13 - CONCLUSION: 1. Dense consolidation left lung base suspicious for pneumonia. Underlying mass is not excluded at this time. 2. Cholelithiasis. Allen Mensah MD Lower Extremity Ultrasound 01/14/17 0000 Signed Impressions: Service Date/Time: Saturday, January 14, 2017 18:08 - CONCLUSION: Normal examination. Sachin Gonzalez MD Chest X-Ray 01/13/17 1531 Signed Impressions: Service Date/Time: Friday, January 13, 2017 16:02 - CONCLUSION: Almost complete opacification of the left hemithorax, stable from prior. The right lungs clear. Dorian Vasquez MD Objective Remarks GENERAL: Not in distress, morbidly obese. Nasal cannula SKIN: Warm and dry. No lesions noted. HEENT: Normocephalic. Pupils equal and round. Mucous membranes pink and moist. Tracheostomy is capped CARDIOVASCULAR: irregular rate and rhythm. No murmur appreciated. RESPIRATORY: No accessory muscle use. Clear to auscultation. Decreased breath sounds on the left. No wheezing. GASTROINTESTINAL: Abdomen soft, non-tender, nondistended. Bowel sounds x4. MUSCULOSKELETAL: No obvious deformities. No clubbing or cyanosis. 2+ edema mick LLE NEUROLOGICAL: Awake and alert, oriented 3. Bilateral lower showing any weakness. 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 Moves lower extremities to command. Normal speech. PSYCHIATRIC: Appropriate mood and affect; insight and judgment normal. Procedures None A/P Problem List: (1) Pneumonia ICD Code: J18.9 Status: Acute (2) Afib ICD Code: I48.91 Status: Chronic (3) Hypoxia ICD Code: R09.02 Status: Acute (4) CHF (congestive heart failure) ICD Code: I50.9 Status: Acute Assessment and Plan 66-year-old female with a past medical history of COPD, A. fib, HLD, HTN, GERD, DM who presents from SNF for shortness breath and cough Sepsis secondary to PNA: Tachycardia, tachypnea, WBC 12.8. Lactic acid within normal limits. Treatment for pneumonia as below. Follow up blood cultures see below. Influenza screen negative. Chest x-ray shows continued opacification of the left hemithorax,unchanged when reviewed with previous imaging, patient is chronic atelectasis. CT shows pneumonia continue cefepime, follow-up sputum culture. Continue oxygen, antitussives. Leukocytosis resolved, Bacteremia. One aerobic culture with staph capitis ureolyticus and one anaerobic bottle with coag-negative. 6 other bottles negative to date. ID consult. Patient clinically stable Acute respiratory failure-pneumonia and diastolic CHF, improved switched to by mouth Lasix preserved EF. Consulted pulmonary no need for bronchoscopy A. fib with RVR: Heart rate remains [id number], EKG reviewed, no ischemic changes. Given 20 mg total IV Cardizem in the ED. RVR secondary to agitation. Cardizem drip as needed. Continue Cardizem by mouth and home metoprolol. On Xarelto for anticoagulation. Patient states she cannot tolerate 20 mg Xarelto secondary to bleeding, we'll continue 10 mg daily. Switched albuterol to Xopenex. UTI: Catheter associated. UA with evidence of UTI. Exchanged Solitario. Antibiotics as above. Fluconazole 1 for yeast. Follow-up culture with Yuly albicans and glabrata. Follow-up repeat urine culture after Solitario exchange COPD with chronic respiratory failure: Does not seem to be in acute exacerbation currently. Continue daily prednisone and home pulmonary regimen. Diabetes mellitus: Continue Levemir to 38 units at bedtime and 40 units in the morning. Coverage with SSI with Accu-Cheks. Continue Lyrica for neuropathy. Lower extremity negative for DVT per ultrasound of the left lower leg. Lasix as above. Monitor urine output Continue PT Prophylaxis: PPI. Xarelto. Discharge Planning Not ready for discharge Problem Qualifiers (1) Pneumonia: Qualified Code: J18.1 - Pneumonia of left lower lobe due to infectious organism (2) Afib: Qualified Code: I48.91 - Atrial fibrillation, unspecified type Grey Osei MD Jan 18, 2017 09:37
[2017-01-18] MEDS: INSULIN DETEMIR 100 UNITS/ML VIAL SQ SCH (16:00)
--- NOTE | 2017-01-18 16:47 | PD.ID.CON ---
History of Present Illness Service ID Consult Requested By Dr Osei Reason for Consult positive blood and urine clx Primary Care Physician Tonio Marc MD Diagnoses: History of Present Illness Pt is a 66 yo femele with mult med probx (obesity, COPD, bed ridden status, DM, HTN) ; she in on O2 and sytremic sterroids for her COPD She has indwelling garcia that she though was not changed more than a month SHe present to [facility] [place] with h/o recent L sided PNA complicated by pneumothorax was released to rehab about 2 weeks ago and now presnted back with 3 days h/o productive cough She has fever, chills Her UA was markeldy abnmormal with iinumerablt leukocytos and clx showed funguria He blood clx are growing STAPH. CAPITIS-UREOLYTICUS in 1/[address] chest showed Dense consolidation left lung base suspicious for pneumonia with ? underlying mass She was hospitalised with PNA and empyema on L side 2 mos ago and her L pleural space fluid grew vir strep with decreased S to cefaosporins Review of Systems Constitutional: COMPLAINS OF: Fever, Chills Respiratory: COMPLAINS OF: Cough, Sputum production, Shortness of breath Cardiovascular: COMPLAINS OF: Dyspnea on Exertion Genitourinary: COMPLAINS OF: Urinary incontinence Neurologic: COMPLAINS OF: Abnormal gait, Poor Balance Except as stated in HPI: all other systems reviewed are Neg Past Family Social History Allergies: Coded Allergies: Penicillin (Verified Allergy, Severe, 05/01/16) Past Medical History Chronic asthma home oxygen Atrial fibrillation Hyperlipidemia Hypertension excellent diabetes mellitus GERD Past Surgical History Appendectomy Hernia surgery Tracheostomy placement Active Ordered Medications Medications where reviewed in EMR Antibiotics Include: cefepime Family History DM Social History No Tobacco - never; but heavy 2nd smoke exposure No ETOH. No Illicit Drugs. resides in [facility] Physical Exam Vital Signs Vital Signs Date Time Temp Pulse Resp B/P Pulse Ox O2 Delivery O2 Flow Rate FiO2 01/18/17 16:24 97.9 104 18 89/69 94 01/18/17 16:24 94 01/18/17 15:24 104 01/18/17 14:07 91 01/18/17 13:48 95 01/18/17 12:32 104 01/18/17 12:32 97.5 99 18 90/60 95 01/18/17 11:20 95 01/18/17 10:22 98 01/18/17 09:53 18 01/18/17 09:18 93 01/18/17 08:41 97.4 74 18 120/70 100 01/18/17 08:41 107 01/18/17 07:52 92 Nasal Cannula 3.00 01/18/17 07:29 115 01/18/17 06:00 96 01/18/17 05:00 116 01/18/17 04:00 97.4 100 14 151/90 100 01/18/17 04:00 85 01/18/17 03:00 90 01/18/17 02:00 94 01/18/17 01:00 86 01/18/17 00:00 87 01/18/17 00:00 97.7 99 14 133/86 98 01/17/17 23:00 94 01/17/17 22:00 96 01/17/17 21:00 106 01/17/17 20:00 91 01/17/17 20:00 97.9 93 18 148/76 97 01/17/17 19:24 99 Nasal Cannula 2.00 01/17/17 18:01 105 01/17/17 17:04 96 Physical Exam CONSTITUTIONAL/GENERAL: This is a morbidly obese elderly female patient, in no apparent distress. TUBES/LINES/DRAINS: SKIN: No jaundice, rashes, or lesions. Ecchymoses on upper extremities. Skin temperature appropriate. Not diaphoretic. HEAD: Atraumatic. Normocephalic. EYES: Pupils equal and round and reactive. Extraocular motions intact. No scleral icterus. No injection or drainage. Fundi not examined. ENT: Hearing grossly normal. Nose without bleeding or purulent drainage. Oral mucosae without visible erythema, exudates, masses, or lesions. NECK: Trachea midline. Supple, nontender. Trach in place, capped CARDIOVASCULAR: Regular rate and rhythm without murmurs, gallops, or rubs. No JVD. Peripheral pulses symmetric. RESPIRATORY/CHEST: Symmetric, unlabored respirations. Clear to auscultation. Breath sounds diminished L . No wheezes, rales, or rhonchi. GASTROINTESTINAL: Abdomen soft, non-tender, nondistended. No hepato-splenomegaly , or palpable masses. No guarding. Bowel sounds present. GENITOURINARY: Without palpable bladder distension. Garcia catheter in place with cloudy yellow urine MUSCULOSKELETAL: Extremities without clubbing, cyanosis, + 1 edema. No joint tenderness or effusion noted. No calf tenderness. No mottling or clubbing. LYMPHATICS: No palpable cervical or supraclavicular adenopathy. NEUROLOGICAL: Awake and alert. Motor and sensory grossly within normal limits. Follows commands. Normal speech. Moves all extremities. PSYCHIATRIC: No obvious anxiety/depression. no apparent hallucinations or other psychotic thought process. Laboratory Laboratory Tests Test 01/18/17 05:30 Sodium Level 143 Potassium Level 4.0 Chloride Level 99 Carbon Dioxide Level 40.8 Anion Gap 3 Blood Urea Nitrogen 24 Creatinine 0.53 Estimat Glomerular Filtration 115 Rate Random Glucose 83 Calcium Level 8.7 Magnesium Level 1.7 Date/Time Procedure Status Source Growth 01/17/17 06:00 Urine Culture - Preliminary Resulted Urine Clean Catch NO GROWTH IN 24 HOURS. 01/17/17 05:55 Aerobic Blood Culture - Preliminary Resulted Blood Peripheral NO GROWTH IN 1 DAY 01/17/17 05:55 Anaerobic Blood Culture - Preliminary Resulted Blood Peripheral NO GROWTH IN 1 DAY 01/13/17 19:45 Influenza Types A,B Antigen (NATALIE) - Final Complete Nasal Washing NEGATIVE FOR FLU A AND B ANTIGEN.... Result Diagram: 01/16/17 0500 01/18/17 0530 Imaging Last Impressions Chest CT 01/15/17 0000 Signed Impressions: Service Date/Time: Sunday, January 15, 2017 17:13 - CONCLUSION: 1. Dense consolidation left lung base suspicious for pneumonia. Underlying mass is not excluded at this time. 2. Cholelithiasis. K. Raul Mensah MD Lower Extremity Ultrasound 01/14/17 0000 Signed Impressions: Service Date/Time: Saturday, January 14, 2017 18:08 - CONCLUSION: Normal examination. Sachin Gonzalez MD Chest X-Ray 01/13/17 1531 Signed Impressions: Service Date/Time: Friday, January 13, 2017 16:02 - CONCLUSION: Almost complete opacification of the left hemithorax, stable from prior. The right lungs clear. Dorian Vasquez MD Assessment and Plan Assessment and Plan PNA, L lung ? underlying mass FUnguria -o on presentation ? old garcia - repeat urine clx neg @ 24 hrs on no antifungals Low grade coag neg staph bactermeia - doubt clin significance - cont cefepime 2 gm q 8 hrs add vancomycin fu P clx Kari Alfaro MD Jan 18, 2017 16:47
--- NOTE | 2017-01-18 19:18 | HHI.PR ---
Subjective Remarks YO Obese female with Trach, opacification of left lung CT chest large infilt left base No fever Feels better On NC breathing better has cough and sputum BC,UC positive Objective Vital Signs Vital Signs Date Time Temp Pulse Resp B/P Pulse Ox O2 Delivery O2 Flow Rate FiO2 01/18/17 18:25 111 01/18/17 17:01 97 01/18/17 16:24 97.9 104 18 89/69 94 01/18/17 16:24 94 01/18/17 15:24 104 01/18/17 14:07 91 01/18/17 13:48 95 01/18/17 12:32 104 01/18/17 12:32 97.5 99 18 90/60 95 01/18/17 11:20 95 01/18/17 10:22 98 01/18/17 09:53 18 01/18/17 09:18 93 01/18/17 08:41 97.4 74 18 120/70 100 01/18/17 08:41 107 01/18/17 07:52 92 Nasal Cannula 3.00 01/18/17 07:29 115 01/18/17 06:00 96 01/18/17 05:00 116 01/18/17 04:00 97.4 100 14 151/90 100 01/18/17 04:00 85 01/18/17 03:00 90 01/18/17 02:00 94 01/18/17 01:00 86 01/18/17 00:00 87 01/18/17 00:00 97.7 99 14 133/86 98 01/17/17 23:00 94 01/17/17 22:00 96 01/17/17 21:00 106 01/17/17 20:00 91 01/17/17 20:00 97.9 93 18 148/76 97 01/17/17 19:24 99 Nasal Cannula 2.00 I/O 01/17/17 01/17/17 01/17/17 01/18/17 01/18/17 01/18/17 07:00 15:00 23:00 07:00 15:00 23:00 Intake Total 1070 ml 1220 ml 970 ml Output Total 1600 ml 1400 ml 1200 ml Balance -530 ml -180 ml -230 ml Intake Oral 820 ml 960 ml 720 ml IV Total 250 ml 260 ml 250 ml Output Urine Total 1600 ml 1400 ml 1200 ml # Bowel Movements 0 0 1 Result Diagram: 01/16/17 0500 01/18/17 0530 Objective Remarks GENERAL: Obese female Mild sob SKIN: Warm and dry. HEAD: Normocephalic. EYES: No scleral icterus. No injection or drainage. NECK: Supple, trachea midline. No JVD or lymphadenopathy. has Trach, capped CARDIOVASCULAR: Regular rate and rhythm without murmurs, gallops, or rubs. RESPIRATORY: Breath sounds equal bilaterally. No accessory muscle use. GASTROINTESTINAL: Abdomen soft, non-tender, nondistended. MUSCULOSKELETAL: No cyanosis, or edema. BACK: Nontender without obvious deformity. No CVA tenderness. A/P Assessment and Plan Left lower infilt, no obdst of airways COPD Trach AF DM Morbid obesity PLAN: Aerosol nebs Cont Abx per ID Acapella monitor BS Cont Xarelto Acapella q 1 hr Emmett Cooper MD Jan 18, 2017 19:18
[2017-01-18] MEDS: TAMSULOSIN HCL 0.4 MG CAP PO SCH (21:10)
[2017-01-18] MEDS ORDERED: Vancomycin Consult Pharmacy 1 EA OTHER SCH (23:15)
[2017-01-19] VITALS (29 sets, daily range): BP systolic 116–153; BP diastolic 62–97; PULSE 90–122; RESP 14–22; TEMP 97.5–97.9; O2SAT 96–100
[2017-01-19] MEDS ORDERED: VANCOMYCIN INJ 2,500 MG in SODIUM CHLORID 0.9% 500 ML INJ 500 ML IV ONE ×2
[2017-01-19] MEDS: CEFEPIME INJ 2,000 MG in SODIUM CHLORIDE 0.9% INJ 100 ML IV SCH ×4 (01:58→20:55)
[2017-01-19] MEDS: DILTIAZEM HCL 30 MG TAB PO SCH ×3 (04:13→18:59)
[2017-01-19] MEDS: INSULIN ASPART SUPPLEMENTAL SCALE SQ SCH ×4 (04:13→20:34)
[2017-01-19 07:18] LABS: BICARBONATE 38.9 MEQ/L (21.0-32.0); MAGNESIUM 1.7 MG/DL (1.5-2.5); POTASSIUM 4.3 MEQ/L (3.5-5.1)
[2017-01-19] MEDS: INSULIN DETEMIR 100 UNITS/ML VIAL SQ SCH ×2 (08:00→17:14)
[2017-01-19] MEDS: RESP: LEVALBUTEROL HYDROCHLORIDE 1.25 MG/3 ML NEB (SCH) NEB ×3 (08:38→19:40)
[2017-01-19] MEDS: RESP: BUDESONIDE 0.5 MG/2 ML NEB NEB SCH ×2 (08:38→19:40)
[2017-01-19] MEDS: PREGABALIN 75 MG CAP PO SCH (09:00)
[2017-01-19] MEDS: PANTOPRAZOLE SOD 20 MG DELAYED RELEASE TAB PO SCH (09:00)
[2017-01-19] MEDS: HYDROCORTISONE ACETATE 25 MG SUPP RECTAL SCH ×2 (09:00→20:34)
[2017-01-19] MEDS: FUROSEMIDE 40 MG TAB PO SCH (09:00)
[2017-01-19] MEDS: predniSONE 20 MG TAB PO SCH (09:00)
[2017-01-19] MEDS: MAGNESIUM OXIDE 400 MG TAB PO SCH ×2 (09:00→20:34)
[2017-01-19] MEDS: METOPROLOL TARTRATE 25 MG TAB PO SCH ×2 (09:00→20:35)
[2017-01-19] MEDS: METOLAZONE 2.5 MG TAB PO SCH (09:00)
[2017-01-19] MEDS: POTASSIUM CHLORIDE 20 MEQ CONTROLLED RELEASE TAB PO SCH ×4 (09:00→20:34)
[2017-01-19] MEDS: SODIUM CHLORIDE 0.9% FLUSH 10 ML FLUSH IV FLUSH SCH ×2 (09:00→20:33)
[2017-01-19] MEDS: DOCUSATE SODIUM 50 MG/SENNA 8.6 MG TAB PO SCH ×2 (09:00→20:34)
[2017-01-19] MEDS: RIVAROXABAN 10 MG TAB PO SCH (09:00)
--- NOTE | 2017-01-19 10:26 | HHI.PR ---
Subjective Remarks Follow-up pneumonia. She is doing okay on 3 L nasal cannula. Discussed with RN , IV vancomycin added because of staph bacteremia Objective Vitals Vital Signs Date Time Temp Pulse Resp B/P Pulse Ox O2 Delivery O2 Flow Rate FiO2 01/19/17 10:05 18 01/19/17 08:45 97.5 120 18 126/62 97 01/19/17 08:41 99 Nasal Cannula 3.00 01/19/17 06:00 96 01/19/17 05:00 97 01/19/17 04:00 98 01/19/17 04:00 97.7 98 14 139/64 99 01/19/17 03:00 90 01/19/17 02:00 92 01/19/17 01:00 100 01/19/17 00:00 97.7 100 14 146/97 98 01/19/17 00:00 92 01/18/17 23:00 116 01/18/17 22:00 102 01/18/17 21:00 96 01/18/17 20:51 99 Nasal Cannula 3.00 01/18/17 20:00 97.5 98 14 146/97 98 01/18/17 20:00 106 01/18/17 18:25 111 01/18/17 17:01 97 01/18/17 16:24 97.9 104 18 89/69 94 01/18/17 16:24 94 01/18/17 15:24 104 01/18/17 14:07 91 01/18/17 13:48 95 01/18/17 12:32 104 01/18/17 12:32 97.5 99 18 90/60 95 01/18/17 11:20 95 I/O 01/18/17 01/18/17 01/18/17 01/19/17 01/19/17 01/19/17 07:00 15:00 23:00 07:00 15:00 23:00 Intake Total 970 ml 902 ml Output Total 1200 ml 750 ml Balance -230 ml 152 ml Intake Oral 720 ml 360 ml IV Total 250 ml 542 ml Output Urine Total 1200 ml 750 ml # Bowel Movements 1 Result Diagram: 01/16/17 0500 01/19/17 0550 Imaging Last Impressions Chest CT 01/15/17 0000 Signed Impressions: Service Date/Time: Sunday, January 15, 2017 17:13 - CONCLUSION: 1. Dense consolidation left lung base suspicious for pneumonia. Underlying mass is not excluded at this time. 2. Cholelithiasis. Allen Mensah MD Lower Extremity Ultrasound 01/14/17 0000 Signed Impressions: Service Date/Time: Saturday, January 14, 2017 18:08 - CONCLUSION: Normal examination. Sachin Gonzalez MD Chest X-Ray 01/13/17 1531 Signed Impressions: Service Date/Time: Friday, January 13, 2017 16:02 - CONCLUSION: Almost complete opacification of the left hemithorax, stable from prior. The right lungs clear. Dorian Vasquez MD Objective Remarks GENERAL: Not in distress, morbidly obese. Nasal cannula SKIN: Warm and dry. No lesions noted. HEENT: Normocephalic. Pupils equal and round. Mucous membranes pink and moist. Tracheostomy is capped CARDIOVASCULAR: irregular rate and rhythm. No murmur appreciated. RESPIRATORY: No accessory muscle use. Decreased breath sounds on the left. GASTROINTESTINAL: Abdomen soft, non-tender, nondistended. Bowel sounds x4. MUSCULOSKELETAL: No obvious deformities. No clubbing or cyanosis. 2+ edema mick LLE NEUROLOGICAL: Awake and alert, oriented 3. Bilateral lower showing any weakness. 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 Moves lower extremities to command. Normal speech. PSYCHIATRIC: Appropriate mood and affect; insight and judgment normal. Procedures None A/P Problem List: (1) Pneumonia ICD Code: J18.9 Status: Acute (2) Afib ICD Code: I48.91 Status: Chronic (3) Hypoxia ICD Code: R09.02 Status: Acute (4) CHF (congestive heart failure) ICD Code: I50.9 Status: Acute Assessment and Plan 66-year-old female with a past medical history of COPD, A. fib, HLD, HTN, GERD, DM who presents from SNF for shortness breath and cough Sepsis secondary to PNA: Tachycardia, tachypnea, WBC 12.8. Lactic acid within normal limits. Treatment for pneumonia as below. Follow up blood cultures see below. Influenza screen negative. Chest x-ray shows continued opacification of the left hemithorax,unchanged when reviewed with previous imaging, patient is chronic atelectasis. CT shows pneumonia continue cefepime, follow-up sputum culture. Continue oxygen, antitussives. Leukocytosis resolved, Bacteremia. One aerobic culture with staph capitis ureolyticus and one anaerobic bottle with coag-negative. 6 other bottles negative to date. ID consulted and added IV vancomycin. Acute respiratory failure-pneumonia and diastolic CHF, improved switched to by mouth Lasix preserved EF. Consulted pulmonary no need for bronchoscopy . Tracheostomy to be removed prior pulmonary A. fib with RVR: Heart rate remains [id number], EKG reviewed, no ischemic changes. Given 20 mg total IV Cardizem in the ED. RVR secondary to agitation. Cardizem drip as needed. Continue Cardizem by mouth and home metoprolol. On Xarelto for anticoagulation. Patient states she cannot tolerate 20 mg Xarelto secondary to bleeding, we'll continue 10 mg daily. Switched albuterol to Xopenex. UTI: Catheter associated. UA with evidence of UTI. Exchanged Solitario. Antibiotics as above. Fluconazole 1 for yeast. Follow-up culture with Yuly albicans and glabrata. Follow-up repeat urine culture after Solitario exchange, no growth COPD with chronic respiratory failure: Does not seem to be in acute exacerbation currently. Continue daily prednisone and home pulmonary regimen. Diabetes mellitus: Continue Levemir to 38 units at bedtime and 40 units in the morning. Coverage with SSI with Accu-Cheks. Continue Lyrica for neuropathy. Lower extremity negative for DVT per ultrasound of the left lower leg. Lasix as above. Monitor urine output Continue PT Prophylaxis: PPI. Xarelto. Discharge Planning Discharge when cleared by ID Problem Qualifiers (1) Pneumonia: Qualified Code: J18.1 - Pneumonia of left lower lobe due to infectious organism (2) Afib: Qualified Code: I48.91 - Atrial fibrillation, unspecified type Grey Osei MD Jan 19, 2017 10:26
[2017-01-19] MEDS ORDERED: POTA20TA5 PO (14:38)
[2017-01-19] MEDS ORDERED: DILT31TA PO (14:38)
[2017-01-19] MEDS ORDERED: LEVA1.257 NEB ×2 (14:38)
[2017-01-19] MEDS ORDERED: FURO40TA PO (14:38)
--- NOTE | 2017-01-19 14:38 | HHI.DCPOC ---
Discharge Care Plan Diagnosis: (1) CHF (congestive heart failure) (2) Pneumonia Your Health Problems Are: Difficulty with ADL Exercise Tolerance Goals to Promote Your Health * To prevent worsening of your condition and complications * To maintain your health at the optimal level Directions to Meet Your Goals Take your medications as prescribed Follow your dietary instruction Follow activity as directed Keep your appointments as scheduled Take your immunizations and boosters as scheduled If your symptoms worsen call your PCP, if no PCP go to Urgent Care Center or Emergency Room Smoking is Dangerous to Your Health. Avoid second hand smoke Call the 24-hour hour crisis hotline for domestic abuse at Grey Osei MD Jan 19, 2017 14:38
[2017-01-19] MEDS: VANCOMYCIN INJ 1,750 MG in SODIUM CHLORID 0.9% 500 ML INJ 500 ML IV SCH (17:53)
--- NOTE | 2017-01-19 18:48 | HHI.PR ---
Subjective Remarks YO Obese female with Trach, opacification of left lung CT chest large infilt left base No fever Feels better On NC breathing better has cough and sputum Objective Vital Signs Vital Signs Date Time Temp Pulse Resp B/P Pulse Ox O2 Delivery O2 Flow Rate FiO2 01/19/17 16:01 97.6 105 20 116/73 96 01/19/17 13:45 97 Nasal Cannula 2.00 01/19/17 13:01 120 01/19/17 12:01 97.5 112 14 135/67 100 01/19/17 12:00 112 01/19/17 11:00 112 01/19/17 10:05 18 01/19/17 10:00 108 01/19/17 09:00 122 01/19/17 08:45 97.5 120 18 126/62 97 01/19/17 08:41 99 Nasal Cannula 3.00 01/19/17 08:00 116 01/19/17 07:00 104 01/19/17 06:00 96 01/19/17 05:00 97 01/19/17 04:00 98 01/19/17 04:00 97.7 98 14 139/64 99 01/19/17 03:00 90 01/19/17 02:00 92 01/19/17 01:00 100 01/19/17 00:00 97.7 100 14 146/97 98 01/19/17 00:00 92 01/18/17 23:00 116 01/18/17 22:00 102 01/18/17 21:00 96 01/18/17 20:51 99 Nasal Cannula 3.00 01/18/17 20:00 97.5 98 14 146/97 98 01/18/17 20:00 106 I/O 01/18/17 01/18/17 01/18/17 01/19/17 01/19/17 01/19/17 07:00 15:00 23:00 07:00 15:00 23:00 Intake Total 970 ml 902 ml Output Total 1200 ml 750 ml Balance -230 ml 152 ml Intake Oral 720 ml 360 ml IV Total 250 ml 542 ml Output Urine Total 1200 ml 750 ml # Bowel Movements 1 Result Diagram: 01/16/17 0500 01/19/17 0550 Objective Remarks GENERAL: Obese female Mild sob SKIN: Warm and dry. HEAD: Normocephalic. EYES: No scleral icterus. No injection or drainage. NECK: Supple, trachea midline. No JVD or lymphadenopathy. has Trach, capped CARDIOVASCULAR: Regular rate and rhythm without murmurs, gallops, or rubs. RESPIRATORY: Breath sounds equal bilaterally. No accessory muscle use. GASTROINTESTINAL: Abdomen soft, non-tender, nondistended. MUSCULOSKELETAL: No cyanosis, or edema. BACK: Nontender without obvious deformity. No CVA tenderness. A/P Assessment and Plan Left lower infilt, no obdst of airways COPD Trach AF DM Morbid obesity APOLONIA likly PLAN: Aerosol nebs Cont Abx per ID Acapella monitor BS Cont Xarelto Acapella q 1 hr Supplement 02 to keep sat >90% Emmett Cooper MD Jan 19, 2017 18:48
--- NOTE | 2017-01-19 19:25 | HHI.IDPN ---
Subjective Subjective Remarks doing good no new co trying to sit up in bed with help of PT afebrile Antibiotics cefepime vancomycin Past Medical History COPD Morbid obesity Obstrctive sleep apnea Allergies: Coded Allergies: Penicillin (Verified Allergy, Severe, 05/01/16) Objective . Vital Signs Date Time Temp Pulse Resp B/P Pulse Ox O2 Delivery O2 Flow Rate FiO2 01/19/17 18:01 104 01/19/17 17:00 98 01/19/17 16:01 97.6 105 20 116/73 96 01/19/17 16:00 110 01/19/17 15:00 112 01/19/17 14:00 102 01/19/17 13:45 97 Nasal Cannula 2.00 01/19/17 13:01 120 01/19/17 12:01 97.5 112 14 135/67 100 01/19/17 12:00 112 01/19/17 11:00 112 01/19/17 10:05 18 01/19/17 10:00 108 01/19/17 09:00 122 01/19/17 08:45 97.5 120 18 126/62 97 01/19/17 08:41 99 Nasal Cannula 3.00 01/19/17 08:00 116 01/19/17 07:00 104 01/19/17 06:00 96 01/19/17 05:00 97 01/19/17 04:00 98 01/19/17 04:00 97.7 98 14 139/64 99 01/19/17 03:00 90 01/19/17 02:00 92 01/19/17 01:00 100 01/19/17 00:00 97.7 100 14 146/97 98 01/19/17 00:00 92 01/18/17 23:00 116 01/18/17 22:00 102 01/18/17 21:00 96 01/18/17 20:51 99 Nasal Cannula 3.00 01/18/17 20:00 97.5 98 14 146/97 98 01/18/17 20:00 106 01/18/17 01/18/17 01/19/17 15:00 23:00 07:00 Intake Total 970 ml 902 ml Output Total 1200 ml 750 ml Balance -230 ml 152 ml Intake Oral 720 ml 360 ml IV Total 250 ml 542 ml Output Urine Total 1200 ml 750 ml # Bowel Movements 1 . Laboratory Tests Test 4/6/17 4/7/17 05:30 05:50 Sodium Level 143 MEQ/L 143 MEQ/L Potassium Level 4.0 MEQ/L 4.3 MEQ/L Chloride Level 99 MEQ/L 99 MEQ/L Carbon Dioxide Level 40.8 MEQ/L 38.9 MEQ/L Anion Gap 3 MEQ/L 5 MEQ/L Blood Urea Nitrogen 24 MG/DL 26 MG/DL Creatinine 0.53 MG/DL 0.61 MG/DL Estimat Glomerular Filtration 115 ML/MIN 98 ML/MIN Rate Random Glucose 83 MG/DL 66 MG/DL Calcium Level 8.7 MG/DL 8.6 MG/DL Magnesium Level 1.7 MG/DL 1.7 MG/DL Microbiology Date/Time Procedure Status Source Growth 01/17/17 05:22 Aerobic Blood Culture - Preliminary Resulted Blood Peripheral NO GROWTH IN 2 DAYS 01/17/17 05:22 Anaerobic Blood Culture - Preliminary Resulted Blood Peripheral NO GROWTH IN 2 DAYS 01/17/17 05:55 Aerobic Blood Culture - Preliminary Resulted Blood Peripheral NO GROWTH IN 2 DAYS 01/17/17 05:55 Anaerobic Blood Culture - Preliminary Resulted Blood Peripheral NO GROWTH IN 2 DAYS 01/17/17 06:00 Urine Culture - Final Complete Urine Clean Catch NO GROWTH IN 48 HOURS. Imaging Last Impressions Chest CT 01/15/17 0000 Signed Impressions: Service Date/Time: Sunday, January 15, 2017 17:13 - CONCLUSION: 1. Dense consolidation left lung base suspicious for pneumonia. Underlying mass is not excluded at this time. 2. Cholelithiasis. KQuoc Mensah MD Lower Extremity Ultrasound 01/14/17 0000 Signed Impressions: Service Date/Time: Saturday, January 14, 2017 18:08 - CONCLUSION: Normal examination. Sachin Gonzalez MD Chest X-Ray 01/13/17 1531 Signed Impressions: Service Date/Time: Friday, January 13, 2017 16:02 - CONCLUSION: Almost complete opacification of the left hemithorax, stable from prior. The right lungs clear. Dorian Vasquez MD Physical Exam CONSTITUTIONAL/GENERAL: This is a morbidly obese elderly female patient, in no apparent distress. TUBES/LINES/DRAINS: SKIN: No jaundice, rashes, or lesions. Ecchymoses on upper extremities. Skin temperature appropriate. Not diaphoretic. NECK: Trachea midline. Supple, nontender. Trach in place, capped, site [place] CARDIOVASCULAR: Regular rate and rhythm without murmurs, gallops, or rubs. No JVD. Peripheral pulses symmetric. RESPIRATORY/CHEST: Symmetric, unlabored respirations. Clear to auscultation. Breath sounds diminished L . No wheezes, rales, or rhonchi. GASTROINTESTINAL: Abdomen soft, non-tender, nondistended. No hepato-splenomegaly , or palpable masses. No guarding. Bowel sounds present. GENITOURINARY: Without palpable bladder distension. Garcia catheter in place with cloudy yellow urine MUSCULOSKELETAL: Extremities without clubbing, cyanosis, + 1 edema. Chronic skin changes and dependent rubor b/l feet NEUROLOGICAL: Awake and alert. Motor and sensory grossly within normal limits. Follows commands. Normal speech. Moves all extremities. PSYCHIATRIC: calm and cooperative Assessment & Plan Remarks PNA, L lung ? underlying mass FUnguria -o on presentation ? old garcia - repeat urine clx neg @ 48 hrs on no antifungals with new garcia Low grade coag neg staph bactermeia - doubt clin significance - cont cefepime 2 gm q 8 hrs - cont vancomycin for now - start clindamycin and levaquin po if have to complete Rx empirically sputum clx if feasible - fu CT to ensure complete resolution Kari Alfaro MD Jan 19, 2017 19:25
[2017-01-19] MEDS: ALPRAZolam 1 MG TAB PO PRN (20:34)
[2017-01-19] MEDS: TAMSULOSIN HCL 0.4 MG CAP PO SCH (20:34)
[2017-01-19] MEDS: PATIENT OWN MEDICATION TOPICAL SCH (21:00)
[2017-01-20] VITALS (23 sets, daily range): BP systolic 120–144; BP diastolic 63–84; PULSE 90–124; RESP 18–20; TEMP 97.6–98.4; O2SAT 96–100
[2017-01-20] MEDS: DILTIAZEM HCL 30 MG TAB PO SCH ×5 (00:51→23:37)
[2017-01-20] MEDS: VANCOMYCIN INJ 1,750 MG in SODIUM CHLORID 0.9% 500 ML INJ 500 ML IV SCH ×2 (03:41→16:00)
[2017-01-20] MEDS: CEFEPIME INJ 2,000 MG in SODIUM CHLORIDE 0.9% INJ 100 ML IV SCH ×3 (05:32→20:41)
[2017-01-20] MEDS: INSULIN ASPART SUPPLEMENTAL SCALE SQ SCH ×4 (06:28→20:23)
[2017-01-20] MEDS: RESP: BUDESONIDE 0.5 MG/2 ML NEB NEB SCH ×2 (07:22→19:43)
[2017-01-20] MEDS: RESP: LEVALBUTEROL HYDROCHLORIDE 1.25 MG/3 ML NEB (SCH) NEB ×3 (07:23→19:43)
[2017-01-20] MEDS: INSULIN DETEMIR 100 UNITS/ML VIAL SQ SCH ×2 (08:00→16:00)
[2017-01-20] MEDS: HYDROCORTISONE ACETATE 25 MG SUPP RECTAL SCH ×2 (09:00→20:21)
[2017-01-20] MEDS: PATIENT OWN MEDICATION TOPICAL SCH ×2 (09:00→20:24)
[2017-01-20] MEDS: predniSONE 20 MG TAB PO SCH (09:00)
[2017-01-20] MEDS: METOLAZONE 2.5 MG TAB PO SCH (09:48)
[2017-01-20] MEDS: DOCUSATE SODIUM 50 MG/SENNA 8.6 MG TAB PO SCH ×2 (09:48→20:21)
[2017-01-20] MEDS: METOPROLOL TARTRATE 25 MG TAB PO SCH ×2 (09:49→20:21)
[2017-01-20] MEDS: POTASSIUM CHLORIDE 20 MEQ CONTROLLED RELEASE TAB PO SCH ×4 (09:50→20:20)
[2017-01-20] MEDS: RIVAROXABAN 10 MG TAB PO SCH (09:50)
[2017-01-20] MEDS: PANTOPRAZOLE SOD 20 MG DELAYED RELEASE TAB PO SCH (09:50)
[2017-01-20] MEDS: MAGNESIUM OXIDE 400 MG TAB PO SCH ×2 (09:50→20:20)
[2017-01-20] MEDS: PREGABALIN 75 MG CAP PO SCH (09:50)
[2017-01-20] MEDS: SODIUM CHLORIDE 0.9% FLUSH 10 ML FLUSH IV FLUSH SCH ×2 (09:50→20:19)
[2017-01-20] MEDS: FUROSEMIDE 40 MG TAB PO SCH (09:50)
--- NOTE | 2017-01-20 14:01 | HHI.PR ---
Subjective Remarks Patient states that she was awakened at 5 AM for hypoglycemia, had been catching up on sleep over the course of the morning. She states that breathing has improved significantly, continues to have nasal cannula in place. Objective Vitals Vital Signs Date Time Temp Pulse Resp B/P Pulse Ox O2 Delivery O2 Flow Rate FiO2 01/20/17 13:23 18 01/20/17 12:00 97.6 116 18 125/70 96 01/20/17 08:00 98.4 98 18 128/65 98 01/20/17 07:25 98 Nasal Cannula 2.00 01/20/17 06:00 117 01/20/17 05:00 110 01/20/17 04:00 Nasal Cannula 3.00 01/20/17 04:00 97 01/20/17 04:00 98.4 97 18 136/66 100 01/20/17 03:00 95 01/20/17 02:00 91 01/20/17 01:00 95 01/20/17 00:00 98.2 90 20 120/84 100 01/20/17 00:00 Nasal Cannula 3.00 01/20/17 00:00 90 01/19/17 23:00 104 01/19/17 22:00 97 01/19/17 21:00 104 01/19/17 20:00 112 01/19/17 20:00 97.9 112 22 153/75 97 01/19/17 20:00 Nasal Cannula 3.00 01/19/17 19:40 98 Nasal Cannula 3.00 01/19/17 18:01 104 01/19/17 17:00 98 01/19/17 16:01 97.6 105 20 116/73 96 01/19/17 16:00 110 01/19/17 15:00 112 01/19/17 14:00 102 I/O 01/19/17 01/19/17 01/19/17 01/20/17 01/20/17 01/20/17 07:00 15:00 23:00 07:00 15:00 23:00 Intake Total 902 ml 743 ml 840 ml Output Total 750 ml 1250 ml 900 ml Balance 152 ml -507 ml -60 ml Intake Oral 360 ml 630 ml 240 ml IV Total 542 ml 113 ml 600 ml Output Urine Total 750 ml 1250 ml 900 ml # Bowel Movements 1 1 Result Diagram: 01/16/17 0500 01/19/17 0550 Imaging Last Impressions Chest CT 01/15/17 0000 Signed Impressions: Service Date/Time: Sunday, January 15, 2017 17:13 - CONCLUSION: 1. Dense consolidation left lung base suspicious for pneumonia. Underlying mass is not excluded at this time. 2. Cholelithiasis. Allen Mensah MD Lower Extremity Ultrasound 01/14/17 0000 Signed Impressions: Service Date/Time: Saturday, January 14, 2017 18:08 - CONCLUSION: Normal examination. Sachin Gonzalez MD Chest X-Ray 01/13/17 1531 Signed Impressions: Service Date/Time: Friday, January 13, 2017 16:02 - CONCLUSION: Almost complete opacification of the left hemithorax, stable from prior. The right lungs clear. Dorian Vasquez MD Procedures None A/P Problem List: (1) Pneumonia ICD Code: J18.9 Status: Acute (2) Afib ICD Code: I48.91 Status: Chronic (3) Hypoxia ICD Code: R09.02 Status: Acute (4) CHF (congestive heart failure) ICD Code: I50.9 Status: Acute Assessment and Plan 66-year-old female with a past medical history of COPD, A. fib, HLD, HTN, GERD, DM who presents from SNF for shortness breath and cough, being treated for PNA. Sepsis secondary to PNA: Sepsis resolved. Treatment for pneumonia as below. Blood cx 01/13 with staph. Chest x-ray 01/13 opacification of the left hemithorax, unchanged when reviewed with previous imaging, patient likely with chronic atelectasis. CT shows pneumonia although underlying mass could not be excluded. -blood cultures 01/17 with NGTD x 3 days. -f/u sputum cx - Consult ID, appreciate recs - continue cefepime (01/14 - ) - Continue vancomycin (01/19- ) -Repeat chest x-ray in morning - Continue oxygen to maintain sats greater than 92% -Robitussin when necessary - Acapella q1h Bacteremia. One aerobic culture with staph capitis ureolyticus and one anaerobic bottle with coag-negative. 6 other bottles negative to date. -ID consulted -Antibiotics as above Acute respiratory failure-pneumonia and diastolic CHF, improved switched to by mouth Lasix preserved EF. Consulted pulmonary no need for bronchoscopy . Tracheostomy to be removed per pulmonary A. fib with RVR: Heart rate remains [id number], EKG reviewed, no ischemic changes. Given 20 mg total IV Cardizem in the ED. RVR secondary to agitation. Cardizem drip as needed. Continue Cardizem by mouth and home metoprolol. On Xarelto for anticoagulation. Patient states she cannot tolerate 20 mg Xarelto secondary to bleeding, we'll continue 10 mg daily. Switched albuterol to Xopenex. UTI: Catheter associated. UA with evidence of UTI. Exchanged Solitario and no growth on repeat UCx. Antibiotics as above. Fluconazole 1 for yeast. Follow- up culture with Yuly albicans and glabrata. Follow-up repeat urine culture after Solitario exchange, no growth COPD with chronic respiratory failure: Does not seem to be in acute exacerbation currently. Continue daily prednisone and home pulmonary regimen. Diabetes mellitus: Continue Levemir to 38 units at bedtime and 40 units in the morning. Coverage with SSI with Accu-Cheks. Continue Lyrica for neuropathy. Lower extremity negative for DVT per ultrasound of the left lower leg. Lasix as above. Monitor urine output Continue PT Prophylaxis: PPI. Xarelto. Discharge Planning pending clinical improvement, likely 1-2 more days Problem Qualifiers (1) Pneumonia: Qualified Code: J18.1 - Pneumonia of left lower lobe due to infectious organism (2) Afib: Qualified Code: I48.91 - Atrial fibrillation, unspecified type Deann Camarillo MD Jan 20, 2017 14:01
--- NOTE | 2017-01-20 19:49 | RADRPT ---
EXAM DATE/TIME: 01/20/2017 19:18 [place] COMPARISON: CT THORAX W/O CONTRAST, January 15, 2017, 17:13. CHEST SINGLE AP, January 13, 2017, 16:02. INDICATIONS : Short of breath. MEDICAL HISTORY : Congestive heart failure. Hypertension. Asthma SURGICAL HISTORY : Tracheostomy ENCOUNTER: Subsequent ACUITY: 1 week PAIN SCORE: Non-responsive. LOCATION: Bilateral chest FINDINGS: There continues to be opacification of the left hemithorax. This was present on the prior exam. There is a tracheostomy tube in place. No pneumothorax is seen. The right lung remains clear and well-aera massiel. CONCLUSION: There continues to be opacification of left hemithorax. No significant changes compared to the prior exam. Sanya Carter MD on January 20, 2017 at 19:46 Board Certified Radiologist. This report was verified electronically.
--- NOTE | 2017-01-20 20:04 | HHI.PR ---
Subjective Remarks YO Obese female with Trach, opacification of left lung CT chest large infilt left base No fever On NC breathing better has cough and sputum Objective Vital Signs Vital Signs Date Time Temp Pulse Resp B/P Pulse Ox O2 Delivery O2 Flow Rate FiO2 01/20/17 19:46 98 Nasal Cannula 2.00 01/20/17 16:00 98.3 107 18 144/74 96 01/20/17 15:00 120 01/20/17 14:00 108 01/20/17 13:23 18 01/20/17 13:00 110 01/20/17 12:00 110 01/20/17 12:00 97.6 116 18 125/70 96 01/20/17 11:00 102 01/20/17 10:00 114 01/20/17 09:00 114 01/20/17 08:00 98.4 98 18 128/65 98 01/20/17 08:00 124 01/20/17 07:25 98 Nasal Cannula 2.00 01/20/17 07:00 106 01/20/17 06:00 117 01/20/17 05:00 110 01/20/17 04:00 Nasal Cannula 3.00 01/20/17 04:00 97 01/20/17 04:00 98.4 97 18 136/66 100 01/20/17 03:00 95 01/20/17 02:00 91 01/20/17 01:00 95 01/20/17 00:00 98.2 90 20 120/84 100 01/20/17 00:00 Nasal Cannula 3.00 01/20/17 00:00 90 01/19/17 23:00 104 01/19/17 22:00 97 01/19/17 21:00 104 I/O 01/19/17 01/19/17 01/19/17 01/20/17 01/20/17 01/20/17 07:00 15:00 23:00 07:00 15:00 23:00 Intake Total 902 ml 743 ml 840 ml 720 ml Output Total 750 ml 1250 ml 900 ml 1100 ml Balance 152 ml -507 ml -60 ml -380 ml Intake Oral 360 ml 630 ml 240 ml 720 ml IV Total 542 ml 113 ml 600 ml Output Urine Total 750 ml 1250 ml 900 ml 1100 ml # Bowel Movements 1 1 1 Result Diagram: 01/16/17 0500 01/19/17 0550 Objective Remarks GENERAL: Obese female Mild sob SKIN: Warm and dry. HEAD: Normocephalic. EYES: No scleral icterus. No injection or drainage. NECK: Supple, trachea midline. No JVD or lymphadenopathy. has Trach, capped CARDIOVASCULAR: Regular rate and rhythm without murmurs, gallops, or rubs. RESPIRATORY: Breath sounds equal bilaterally. No accessory muscle use. GASTROINTESTINAL: Abdomen soft, non-tender, nondistended. MUSCULOSKELETAL: No cyanosis, or edema. BACK: Nontender without obvious deformity. No CVA tenderness. A/P Assessment and Plan Left lower infilt, no obdst of airways COPD Trach AF DM Morbid obesity APOLONIA likly PLAN: Aerosol nebs Cont Abx per ID Acapella monitor BS Cont Xarelto Acapella q 1 hr Supplement 02 to keep sat >90% CXR in AM Emmett Cooper MD Jan 20, 2017 20:03
[2017-01-20] MEDS: TAMSULOSIN HCL 0.4 MG CAP PO SCH (20:20)
[2017-01-20] MEDS: ALPRAZolam 1 MG TAB PO PRN (20:20)
[2017-01-21] VITALS (26 sets, daily range): BP systolic 111–145; BP diastolic 64–86; PULSE 86–131; RESP 16–20; TEMP 97.6–98.6; O2SAT 96–99
[2017-01-21] MEDS ORDERED: PHARMACY ORDERED LAB ONE (03:45)
[2017-01-21] MEDS: VANCOMYCIN INJ 1,750 MG in SODIUM CHLORID 0.9% 500 ML INJ 500 ML IV SCH (04:06)
[2017-01-21] MEDS: CEFEPIME INJ 2,000 MG in SODIUM CHLORIDE 0.9% INJ 100 ML IV SCH ×3 (05:23→21:26)
[2017-01-21] MEDS: DILTIAZEM HCL 30 MG TAB PO SCH ×4 (05:23→23:50)
[2017-01-21 05:40] LABS: BICARBONATE 39.3 MEQ/L (21.0-32.0); POTASSIUM 4.6 MEQ/L (3.5-5.1)
[2017-01-21 05:42] LABS: VANCOMYCIN TROUGH 35.7 MCG/ML (5.0-10.0)
[2017-01-21 05:57] LABS: AUTOMATED NEUTROPHIL # 7.7 TH/MM3 (1.8-7.7); BASOPHIL % 0.2 % (0.0-2.0); EOSINOPHIL % 0.4 % (0.0-4.0); HEMATOCRIT 28.8 % (35.0-46.0); LYMPH % 6.4 % (9.0-44.0); LYMPHOCYTE # 0.6 TH/MM3 (1.0-4.8); MEAN CELL VOLUME 85.9 FL (80.0-100.0); MEAN CORPUSCULAR HGB CONC 32.6 % (32.0-36.0); MONO % 7.6 % (0.0-8.0); NEUT % 85.4 % (16.0-70.0); PLATELET COUNT 225 TH/MM3 (150-450); RED BLOOD COUNT 3.35 MIL/MM3 (4.00-5.30); RED CELL DISTRIBUTION WIDTH 21.4 % (11.6-17.2)
[2017-01-21] MEDS: INSULIN ASPART SUPPLEMENTAL SCALE SQ SCH ×4 (06:15→21:00)
[2017-01-21 06:18] LABS: HEMO FLAGS AUTO DIFF
[2017-01-21] MEDS: INSULIN DETEMIR 100 UNITS/ML VIAL SQ SCH ×2 (08:00→16:00)
[2017-01-21] MEDS: RIVAROXABAN 10 MG TAB PO SCH (08:37)
[2017-01-21] MEDS: DOCUSATE SODIUM 50 MG/SENNA 8.6 MG TAB PO SCH ×2 (08:38→21:23)
[2017-01-21] MEDS: METOLAZONE 2.5 MG TAB PO SCH (08:38)
[2017-01-21] MEDS: POTASSIUM CHLORIDE 20 MEQ CONTROLLED RELEASE TAB PO SCH ×4 (08:38→21:24)
[2017-01-21] MEDS: PREGABALIN 75 MG CAP PO SCH (08:39)
[2017-01-21] MEDS: predniSONE 20 MG TAB PO SCH (08:39)
[2017-01-21] MEDS: METOPROLOL TARTRATE 25 MG TAB PO SCH ×2 (08:39→21:24)
[2017-01-21] MEDS: FUROSEMIDE 40 MG TAB PO SCH (08:39)
[2017-01-21] MEDS: MAGNESIUM OXIDE 400 MG TAB PO SCH ×2 (08:39→21:23)
[2017-01-21] MEDS: PANTOPRAZOLE SOD 20 MG DELAYED RELEASE TAB PO SCH (08:39)
[2017-01-21] MEDS: HYDROCORTISONE ACETATE 25 MG SUPP RECTAL SCH ×2 (08:40→21:00)
[2017-01-21] MEDS: SODIUM CHLORIDE 0.9% FLUSH 10 ML FLUSH IV FLUSH SCH ×2 (08:40→21:23)
[2017-01-21] MEDS: PATIENT OWN MEDICATION TOPICAL SCH ×2 (09:00→21:00)
[2017-01-21 09:35] LABS: BANDS 10 % (0-6); BASOPHILS 1 % (0-2); MYELOCYTES 4 % (0-0); NEUTROPHIL # MANUAL DIFF 7.4 TH/MM3 (1.8-7.7); POLYS (SEG NEUTROPHILS) 68 % (16-70); WBC DIFF SAMPLE 100
[2017-01-21 09:38] LABS: PLATELET ESTIMATE SMEAR NORMAL (NORMAL); PLATELET MORPHOLOGY NORMAL (NORMAL); POLYCHROMASIA 2.1 % (0.0-1.9); SCAN/DIFF FINAL DIFF MANUAL
[2017-01-21] MEDS: RESP: LEVALBUTEROL HYDROCHLORIDE 1.25 MG/3 ML NEB (SCH) NEB ×3 (09:38→21:36)
[2017-01-21] MEDS: RESP: BUDESONIDE 0.5 MG/2 ML NEB NEB SCH ×2 (09:38→21:36)
[2017-01-21 09:39] LABS: OVALOCYTES 1+ (NORMAL)
--- NOTE | 2017-01-21 09:41 | HHI.PR ---
Subjective Remarks No acute events overnight. Afebrile, vital signs stable. Patient doing well on 2 L nasal cannula. She has no complaints this morning. Objective Vitals Vital Signs Date Time Temp Pulse Resp B/P Pulse Ox O2 Delivery O2 Flow Rate FiO2 01/21/17 06:00 94 01/21/17 05:00 90 01/21/17 04:00 98.2 86 18 111/68 97 01/21/17 04:00 Nasal Cannula 2.00 01/21/17 04:00 86 01/21/17 03:00 92 01/21/17 02:00 96 01/21/17 01:00 90 01/21/17 00:00 Nasal Cannula 2.00 01/21/17 00:00 98.0 93 18 116/64 98 01/21/17 00:00 93 01/20/17 23:00 99 01/20/17 22:00 100 01/20/17 21:00 103 01/20/17 20:00 106 01/20/17 20:00 98.1 106 20 121/63 97 01/20/17 20:00 Nasal Cannula 2.00 01/20/17 19:46 98 Nasal Cannula 2.00 01/20/17 16:00 98.3 107 18 144/74 96 01/20/17 15:00 120 01/20/17 14:00 108 01/20/17 13:23 18 01/20/17 13:00 110 01/20/17 12:00 110 01/20/17 12:00 97.6 116 18 125/70 96 01/20/17 11:00 102 01/20/17 10:00 114 I/O 01/20/17 01/20/17 01/20/17 01/21/17 01/21/17 01/21/17 07:00 15:00 23:00 07:00 15:00 23:00 Intake Total 840 ml 720 ml 840 ml Output Total 900 ml 1100 ml 800 ml Balance -60 ml -380 ml 40 ml Intake Oral 240 ml 720 ml 240 ml IV Total 600 ml 600 ml Output Urine Total 900 ml 1100 ml 800 ml # Bowel Movements 1 1 1 Result Diagram: 01/21/17 0320 01/21/17 032 Objective Remarks Gen.: No acute distress Head: Normocephalic. Atraumatic. EENT: Pupils equal round and reactive to light. Nose without drainage. Airway intact. Throat without injection. Cardiovascular: Regular rate and rhythm. No murmurs, rubs or gallops. Respiratory: Lungs clear to auscultation anteriorly. No wheezes or rhonchi. Abdomen: Soft, nontender, nondistended. No peritoneal signs. Musculoskeletal: No gross deformities. No edema. Skin: No obvious rashes or erythema. Neuro: Sensory and motor grossly intact. Cranial nerves II through XII grossly intact. Psych: Appropriate mood and affect Procedures None A/P Problem List: (1) Pneumonia ICD Code: J18.9 Status: Acute (2) Afib ICD Code: I48.91 Status: Chronic (3) Hypoxia ICD Code: R09.02 Status: Acute (4) CHF (congestive heart failure) ICD Code: I50.9 Status: Acute Assessment and Plan 66-year-old female with a past medical history of COPD, A. fib, HLD, HTN, GERD, DM who presents from SNF for shortness breath and cough, being treated for PNA. Sepsis secondary to PNA: Sepsis resolved. Treatment for pneumonia as below. Blood cx 01/13 with staph. Chest x-ray 01/13 opacification of the left hemithorax, unchanged when reviewed with previous imaging, patient likely with chronic atelectasis. CT shows pneumonia although underlying mass could not be excluded. -blood cultures 01/17 with NGTD x 3 days. -f/u sputum cx - Consult ID, appreciate recs - continue cefepime (01/14 - ) - Continue vancomycin (01/19- ) -Repeat chest x-ray pending - Continue oxygen to maintain sats greater than 92% -Robitussin when necessary - Acapella q1h Bacteremia. One aerobic culture with staph capitis ureolyticus and one anaerobic bottle with coag-negative. 6 other bottles negative to date. -ID consulted -Antibiotics as above Acute respiratory failure-pneumonia and diastolic CHF, improved switched to by mouth Lasix preserved EF. Consulted pulmonary no need for bronchoscopy . Tracheostomy to be removed per pulmonary A. fib with RVR: Rate controlled. Given 20 mg total IV Cardizem in the ED. RVR secondary to agitation. Cardizem drip as needed. Continue Cardizem by mouth and home metoprolol. On Xarelto for anticoagulation. Patient states she cannot tolerate 20 mg Xarelto secondary to bleeding, we'll continue 10 mg daily. Switched albuterol to Xopenex. UTI: Catheter associated. UA with evidence of UTI. Exchanged Solitario and no growth on repeat UCx. Antibiotics as above. Fluconazole 1 for yeast. Follow- up culture with Yuly albicans and glabrata. Repeat UA/UCx today. COPD with chronic respiratory failure: Does not seem to be in acute exacerbation currently. Continue daily prednisone and home pulmonary regimen. Diabetes mellitus: Continue Levemir to 38 units at bedtime and 40 units in the morning. Coverage with SSI with Accu-Cheks. Continue Lyrica for neuropathy. Lower extremity negative for DVT per ultrasound of the left lower leg. Lasix as above. Monitor urine output Continue PT Prophylaxis: PPI. Xarelto. Discharge Planning Pending ID recs and clinical improvement. Likely 1-2 days. Problem Qualifiers (1) Pneumonia: Qualified Code: J18.1 - Pneumonia of left lower lobe due to infectious organism (2) Afib: Qualified Code: I48.91 - Atrial fibrillation, unspecified type Emma Sanchez MD R3 Jan 21, 2017 09:41
--- NOTE | 2017-01-21 20:05 | HHI.PR ---
Subjective Remarks YO Obese female with Trach, opacification of left lung CT chest large infilt left base No fever On NC breathing better has cough and sputum had Increased HR, started Cardiazem drip. Objective Vital Signs Vital Signs Date Time Temp Pulse Resp B/P Pulse Ox O2 Delivery O2 Flow Rate FiO2 01/21/17 18:00 131 01/21/17 17:00 106 01/21/17 16:00 102 01/21/17 16:00 98.5 105 20 137/70 98 01/21/17 15:00 102 01/21/17 14:00 112 01/21/17 13:00 104 01/21/17 12:00 98.6 99 20 135/86 96 01/21/17 12:00 114 01/21/17 11:00 117 01/21/17 10:00 106 01/21/17 09:53 18 01/21/17 09:36 99 Nasal Cannula 2.00 01/21/17 09:00 120 01/21/17 08:00 97.6 97 20 145/71 99 01/21/17 08:00 108 01/21/17 07:30 99 Nasal Cannula 2.00 01/21/17 07:00 90 01/21/17 06:00 94 01/21/17 05:00 90 01/21/17 04:00 98.2 86 18 111/68 97 01/21/17 04:00 Nasal Cannula 2.00 01/21/17 04:00 86 01/21/17 03:00 92 01/21/17 02:00 96 01/21/17 01:00 90 01/21/17 00:00 Nasal Cannula 2.00 01/21/17 00:00 98.0 93 18 116/64 98 01/21/17 00:00 93 01/20/17 23:00 99 01/20/17 22:00 100 01/20/17 21:00 103 I/O 01/20/17 01/20/17 01/20/17 01/21/17 01/21/17 01/21/17 07:00 15:00 23:00 07:00 15:00 23:00 Intake Total 840 ml 720 ml 840 ml 820 ml Output Total 900 ml 1100 ml 800 ml 1625 ml Balance -60 ml -380 ml 40 ml -805 ml Intake Oral 240 ml 720 ml 240 ml 720 ml IV Total 600 ml 600 ml 100 ml Output Urine Total 900 ml 1100 ml 800 ml 1625 ml # Bowel Movements 1 1 1 0 Result Diagram: 01/21/17 0320 01/21/17 0320 Objective Remarks GENERAL: Obese female Mild sob SKIN: Warm and dry. HEAD: Normocephalic. EYES: No scleral icterus. No injection or drainage. NECK: Supple, trachea midline. No JVD or lymphadenopathy. has Trach, capped CARDIOVASCULAR: Regular rate and rhythm without murmurs, gallops, or rubs. RESPIRATORY: Breath sounds equal bilaterally. No accessory muscle use. GASTROINTESTINAL: Abdomen soft, non-tender, nondistended. MUSCULOSKELETAL: No cyanosis, or edema. BACK: Nontender without obvious deformity. No CVA tenderness. A/P Assessment and Plan Left lower infilt, no obdst of airways COPD Trach AF DM Morbid obesity APOLONIA likly PLAN: Aerosol nebs Cont Abx per ID Acapella monitor BS Cont Xarelto Acapella q 1 hr Supplement 02 to keep sat >90% Cardiazem for rate controll. Emmett Cooper MD Jan 21, 2017 20:04
[2017-01-21] MEDS: TAMSULOSIN HCL 0.4 MG CAP PO SCH (21:23)
[2017-01-22] VITALS (27 sets, daily range): BP systolic 119–132; BP diastolic 63–86; PULSE 74–116; RESP 16–20; TEMP 97.5–99; O2SAT 96–100
[2017-01-22] MEDS: CEFEPIME INJ 2,000 MG in SODIUM CHLORIDE 0.9% INJ 100 ML IV SCH ×3 (06:11→22:24)
[2017-01-22] MEDS: DILTIAZEM HCL 30 MG TAB PO SCH ×3 (06:11→17:13)
[2017-01-22 06:16] LABS: BASOPHIL % 0.3 % (0.0-2.0); EOSINOPHIL % 0.4 % (0.0-4.0); HEMATOCRIT 30.3 % (35.0-46.0); LYMPH % 9.2 % (9.0-44.0); LYMPHOCYTE # 0.9 TH/MM3 (1.0-4.8); MEAN CELL VOLUME 85.8 FL (80.0-100.0); MEAN CORPUSCULAR HEMOGLOBIN 28.2 PG (27.0-34.0); MEAN CORPUSCULAR HGB CONC 32.8 % (32.0-36.0); MONO % 9.2 % (0.0-8.0); NEUT % 80.9 % (16.0-70.0); PLATELET COUNT 237 TH/MM3 (150-450); RED BLOOD COUNT 3.53 MIL/MM3 (4.00-5.30); RED CELL DISTRIBUTION WIDTH 21.4 % (11.6-17.2); WHITE BLOOD COUNT 9.9 TH/MM3 (4.0-11.0)
[2017-01-22 06:24] LABS: HEMO FLAGS AUTO DIFF
[2017-01-22 06:38] LABS: BICARBONATE 40.2 MEQ/L (21.0-32.0); POTASSIUM 4.1 MEQ/L (3.5-5.1)
[2017-01-22] MEDS: INSULIN ASPART SUPPLEMENTAL SCALE SQ SCH ×4 (07:00→20:38)
[2017-01-22] MEDS: RESP: BUDESONIDE 0.5 MG/2 ML NEB NEB SCH ×2 (07:30→19:04)
[2017-01-22] MEDS: RESP: LEVALBUTEROL HYDROCHLORIDE 1.25 MG/3 ML NEB (SCH) NEB (07:30)
[2017-01-22 07:39] LABS: PLATELET ESTIMATE SMEAR NORMAL (NORMAL); PLATELET MORPHOLOGY NORMAL (NORMAL); SCAN/DIFF AUTO DIFF CONFIRMED
[2017-01-22] MEDS: POTASSIUM CHLORIDE 20 MEQ CONTROLLED RELEASE TAB PO SCH ×4 (08:43→20:37)
[2017-01-22] MEDS: FUROSEMIDE 40 MG TAB PO SCH (08:43)
[2017-01-22] MEDS: RIVAROXABAN 10 MG TAB PO SCH (08:43)
[2017-01-22] MEDS: MAGNESIUM OXIDE 400 MG TAB PO SCH ×2 (08:44→20:37)
[2017-01-22] MEDS: METOLAZONE 2.5 MG TAB PO SCH (08:44)
[2017-01-22] MEDS: PANTOPRAZOLE SOD 20 MG DELAYED RELEASE TAB PO SCH (08:44)
[2017-01-22] MEDS: METOPROLOL TARTRATE 25 MG TAB PO SCH ×2 (08:44→20:37)
[2017-01-22] MEDS: predniSONE 20 MG TAB PO SCH (08:45)
[2017-01-22] MEDS: PREGABALIN 75 MG CAP PO SCH (08:45)
[2017-01-22] MEDS: HYDROCORTISONE ACETATE 25 MG SUPP RECTAL SCH ×2 (08:45→20:37)
[2017-01-22] MEDS: SODIUM CHLORIDE 0.9% FLUSH 10 ML FLUSH IV FLUSH SCH ×2 (08:46→20:38)
[2017-01-22] MEDS: INSULIN DETEMIR 100 UNITS/ML VIAL SQ SCH ×2 (08:46→17:12)
[2017-01-22] MEDS: PATIENT OWN MEDICATION TOPICAL SCH ×2 (08:47→20:39)
[2017-01-22] MEDS: DOCUSATE SODIUM 50 MG/SENNA 8.6 MG TAB PO SCH ×2 (08:47→20:37)
--- NOTE | 2017-01-22 12:49 | HHI.PR ---
Subjective Remarks Patient reports she is feeling better. Her breathing is better. No chest pain. Eating well. No nausea or vomiting. Inquired about when the trach will come out. Objective Vitals Vital Signs Date Time Temp Pulse Resp B/P Pulse Ox O2 Delivery O2 Flow Rate FiO2 01/22/17 10:39 87 01/22/17 09:00 104 01/22/17 08:15 97.5 85 17 127/71 99 01/22/17 08:00 82 01/22/17 07:31 100 Nasal Cannula 2.00 01/22/17 07:00 99 Nasal Cannula 2.00 01/22/17 07:00 74 01/22/17 06:00 84 01/22/17 05:00 92 01/22/17 04:00 97.6 101 16 120/63 99 01/22/17 04:00 90 01/22/17 03:00 96 01/22/17 02:00 94 01/22/17 01:00 102 01/22/17 00:00 98 01/22/17 00:00 98.8 97 16 128/86 97 01/21/17 23:00 104 01/21/17 22:00 94 01/21/17 21:36 97 Nasal Cannula 2.00 01/21/17 21:00 100 01/21/17 20:00 98.6 106 16 132/82 97 01/21/17 20:00 104 01/21/17 19:00 114 01/21/17 19:00 97 Nasal Cannula 2.00 01/21/17 18:00 131 01/21/17 17:00 106 01/21/17 16:00 102 01/21/17 16:00 98.5 105 20 137/70 98 01/21/17 15:00 102 01/21/17 14:00 112 01/21/17 13:00 104 I/O 01/21/17 01/21/17 01/21/17 01/22/17 01/22/17 01/22/17 07:00 15:00 23:00 07:00 15:00 23:00 Intake Total 840 ml 820 ml 881 ml Output Total 800 ml 1625 ml 751 ml Balance 40 ml -805 ml 130 ml Intake Oral 240 ml 720 ml 720 ml IV Total 600 ml 100 ml 161 ml Output Urine Total 800 ml 1625 ml 750 ml Stool Total 1 ml # Bowel Movements 1 0 Result Diagram: 01/22/17 0455 01/22/17 0455 Imaging Last Impressions Chest X-Ray 01/20/17 0000 Signed Impressions: Service Date/Time: Friday, January 20, 2017 19:18 - CONCLUSION: There continues to be opacification of left hemithorax. No significant changes compared to the prior exam. Sanya Carter MD Chest CT 01/15/17 0000 Signed Impressions: Service Date/Time: Sunday, January 15, 2017 17:13 - CONCLUSION: 1. Dense consolidation left lung base suspicious for pneumonia. Underlying mass is not excluded at this time. 2. Cholelithiasis. Allen Mensah MD Lower Extremity Ultrasound 01/14/17 0000 Signed Impressions: Service Date/Time: Saturday, January 14, 2017 18:08 - CONCLUSION: Normal examination. Sachin Gonzalez MD Objective Remarks GENERAL: Morbidly obese female in no apparent distress. Trach is capped and in Place. CARDIOVASCULAR: Normal rate and regular rhythm without murmurs, gallops, or rubs. RESPIRATORY: Good respiratory efforts. Breath sounds diminished bilaterally at the bases. Some faint rhonchi over the left lung west. GASTROINTESTINAL: Abdomen soft, non-tender, non-distended. Normal active bowel sounds MUSCULOSKELETAL: Extremities without cyanosis. Some nonpitting edema NEURO: Alert & Oriented x4 to person, place, time, situation. Moves all ext x4 PSYCH: Appropriate mood and affect. Procedures None A/P Problem List: (1) Pneumonia ICD Code: J18.9 Status: Acute (2) Afib ICD Code: I48.91 Status: Chronic (3) Hypoxia ICD Code: R09.02 Status: Acute (4) CHF (congestive heart failure) ICD Code: I50.9 Status: Acute Assessment and Plan 66-year-old female with a past medical history of COPD, A. fib, HLD, HTN, GERD, DM who presents from SNF for shortness breath and cough, being treated for PNA. Sepsis secondary to PNA: Sepsis resolved. Treatment for pneumonia as below. Blood cx 01/13 with staph. Chest x-ray 01/13 opacification of the left hemithorax, unchanged when reviewed with previous imaging, patient likely with chronic atelectasis. CT shows pneumonia although underlying mass could not be excluded. -blood cultures 4/ with NGTD x 3 days. - Sputum culture growing MRSA and gram-negative rods -Appreciate infectious disease following - continue cefepime (01/14 - ) - Continue vancomycin (01/19- ) - Will need repeat chest CT to ensure resolution vs mass. - Continue oxygen to maintain sats greater than 92% -Robitussin when necessary - Acapella q1h Bacteremia. Doubt clinical significance per ID. One aerobic culture with staph capitis ureolyticus and one anaerobic bottle with coag-negative. 6 other bottles negative to date. -ID following -Antibiotics as above Acute respiratory failure-pneumonia and diastolic CHF, improved switched to by mouth Lasix preserved EF. Tracheostomy weaning per pulmonary A. fib with RVR: Rate controlled. Given 20 mg total IV Cardizem in the ED. RVR secondary to agitation. - Discontinue Cardizem drip - Continue Cardizem by mouth and home metoprolol. On Xarelto for anticoagulation. Patient states she cannot tolerate 20 mg Xarelto secondary to bleeding, we'll continue 10 mg daily. Abnormal urinalysis: Repeat urine negative. COPD with chronic respiratory failure: Does not seem to be in acute exacerbation currently. Continue daily prednisone and home pulmonary regimen. Diabetes mellitus: Continue Levemir to 38 units at bedtime and 40 units in the morning. Coverage with SSI with Accu-Cheks. Continue Lyrica for neuropathy. Prophylaxis: PPI. Xarelto. Discussed with ID Dr. Alfaro Problem Qualifiers (1) Pneumonia: Qualified Code: J18.1 - Pneumonia of left lower lobe due to infectious organism (2) Afib: Qualified Code: I48.91 - Atrial fibrillation, unspecified type Ras Palma MD Jan 22, 2017 12:49
--- NOTE | 2017-01-22 19:42 | HHI.PR ---
Subjective Remarks YO Obese female with Trach, opacification of left lung CT chest large infilt left base No fever On NC breathing better has cough and sputum Sp has MRSA and Gram Neg rods. Objective Vital Signs Vital Signs Date Time Temp Pulse Resp B/P Pulse Ox O2 Delivery O2 Flow Rate FiO2 01/22/17 19:04 98 Nasal Cannula 2.00 01/22/17 18:03 89 01/22/17 17:00 96 01/22/17 16:00 98.3 89 20 132/79 97 01/22/17 16:00 102 01/22/17 15:00 98 01/22/17 14:00 88 01/22/17 13:00 92 01/22/17 12:00 82 01/22/17 12:00 98.3 97 20 119/64 99 01/22/17 11:00 87 01/22/17 10:39 87 01/22/17 09:00 104 01/22/17 08:15 97.5 85 17 127/71 99 01/22/17 08:00 82 01/22/17 07:31 100 Nasal Cannula 2.00 01/22/17 07:00 99 Nasal Cannula 2.00 01/22/17 07:00 74 01/22/17 06:00 84 01/22/17 05:00 92 01/22/17 04:00 97.6 101 16 120/63 99 01/22/17 04:00 90 01/22/17 03:00 96 01/22/17 02:00 94 01/22/17 01:00 102 01/22/17 00:00 98 01/22/17 00:00 98.8 97 16 128/86 97 01/21/17 23:00 104 01/21/17 22:00 94 01/21/17 21:36 97 Nasal Cannula 2.00 01/21/17 21:00 100 01/21/17 20:00 98.6 106 16 132/82 97 01/21/17 20:00 104 I/O 01/21/17 01/21/17 01/21/17 01/22/17 01/22/17 01/22/17 07:00 15:00 23:00 07:00 15:00 23:00 Intake Total 840 ml 820 ml 881 ml 1070 ml Output Total 800 ml 1625 ml 751 ml 1350 ml Balance 40 ml -805 ml 130 ml -280 ml Intake Oral 240 ml 720 ml 720 ml 920 ml IV Total 600 ml 100 ml 161 ml 150 ml Output Urine Total 800 ml 1625 ml 750 ml 1350 ml Stool Total 1 ml # Bowel Movements 1 0 Result Diagram: 01/22/1745401/22/17454 Objective Remarks GENERAL: Obese female Mild sob SKIN: Warm and dry. HEAD: Normocephalic. EYES: No scleral icterus. No injection or drainage. NECK: Supple, trachea midline. No JVD or lymphadenopathy. has Trach, capped CARDIOVASCULAR: Regular rate and rhythm without murmurs, gallops, or rubs. RESPIRATORY: Breath sounds equal bilaterally. No accessory muscle use. GASTROINTESTINAL: Abdomen soft, non-tender, nondistended. MUSCULOSKELETAL: No cyanosis, or edema. BACK: Nontender without obvious deformity. No CVA tenderness. A/P Assessment and Plan Left lower infilt, no obdst of airways COPD Trach AF DM Morbid obesity APOLONIA likly PLAN: Aerosol nebs Acapella monitor BS Cont Xarelto Acapella q 1 hr Supplement 02 to keep sat >90% Abx per ID Emmett Cooper MD Jan 22, 2017 19:42
[2017-01-22] MEDS: TAMSULOSIN HCL 0.4 MG CAP PO SCH (20:37)
--- NOTE | 2017-01-22 21:59 | HHI.IDPN ---
Subjective Subjective Remarks Delayed entry - pt was seen earlier today around 1930 vanco level is high >30 cont to have cough with small amount of sputum afebrile Antibiotics cefepime vancomycin Past Medical History COPD Morbid obesity Obstrctive sleep apnea Allergies: Coded Allergies: Penicillin (Verified Allergy, Severe, 05/01/16) Objective . Vital Signs Date Time Temp Pulse Resp B/P Pulse Ox O2 Delivery O2 Flow Rate FiO2 01/22/17 19:04 98 Nasal Cannula 2.00 01/22/17 18:03 89 01/22/17 17:00 96 01/22/17 16:00 98.3 89 20 132/79 97 01/22/17 16:00 102 01/22/17 15:00 98 01/22/17 14:00 88 01/22/17 13:00 92 01/22/17 12:00 82 01/22/17 12:00 98.3 97 20 119/64 99 01/22/17 11:00 87 01/22/17 10:39 87 01/22/17 09:00 104 01/22/17 08:15 97.5 85 17 127/71 99 01/22/17 08:00 82 01/22/17 07:31 100 Nasal Cannula 2.00 01/22/17 07:00 99 Nasal Cannula 2.00 01/22/17 07:00 74 01/22/17 06:00 84 01/22/17 05:00 92 01/22/17 04:00 97.6 101 16 120/63 99 01/22/17 04:00 90 01/22/17 03:00 96 01/22/17 02:00 94 01/22/17 01:00 102 01/22/17 00:00 98 01/22/17 00:00 98.8 97 16 128/86 97 01/21/17 23:00 104 01/21/17 22:00 94 01/21/17 01/21/17 01/22/17 15:00 23:00 07:00 Intake Total 820 ml 881 ml Output Total 1625 ml 751 ml Balance -805 ml 130 ml Intake Oral 720 ml 720 ml IV Total 100 ml 161 ml Output Urine Total 1625 ml 750 ml Stool Total 1 ml # Bowel Movements 0 . Laboratory Tests Test 01/21/17 01/22/17 03:20 04:55 White Blood Count 9.0 TH/MM3 9.9 TH/MM3 Red Blood Count 3.35 MIL/MM3 3.53 MIL/MM3 Hemoglobin 9.4 GM/DL 10.0 GM/DL Hematocrit 28.8 % 30.3 % Mean Corpuscular Volume 85.9 FL 85.8 FL Mean Corpuscular Hemoglobin 28.0 PG 28.2 PG Mean Corpuscular Hemoglobin 32.6 % 32.8 % Concent Red Cell Distribution Width 21.4 % 21.4 % Platelet Count 225 TH/MM3 237 TH/MM3 Mean Platelet Volume 8.3 FL 8.3 FL Neutrophils (%) (Auto) 85.4 % 80.9 % Lymphocytes (%) (Auto) 6.4 % 9.2 % Monocytes (%) (Auto) 7.6 % 9.2 % Eosinophils (%) (Auto) 0.4 % 0.4 % Basophils (%) (Auto) 0.2 % 0.3 % Neutrophils # (Auto) 7.7 TH/MM3 8.0 TH/MM3 Lymphocytes # (Auto) 0.6 TH/MM3 0.9 TH/MM3 Monocytes # (Auto) 0.7 TH/MM3 0.9 TH/MM3 Eosinophils # (Auto) 0.0 TH/MM3 0.0 TH/MM3 Basophils # (Auto) 0.0 TH/MM3 0.0 TH/MM3 CBC Comment AUTO DIFF AUTO DIFF Differential Total Cells 100 Counted Neutrophils % (Manual) 68 % Band Neutrophils % 10 % Lymphocytes % 10 % Monocytes % 7 % Basophils % 1 % Neutrophils # (Manual) 7.4 TH/MM3 Myelocytes 4 % Differential Comment FINAL DIFF AUTO DIFF MANUAL CONFIRMED Platelet Estimate NORMAL NORMAL Platelet Morphology Comment NORMAL NORMAL Polychromasia 2.1 % Basophilic Stippling MOD Ovalocytes 1+ Laboratory Tests Test 01/21/17 01/22/17 03:20 04:55 Sodium Level 145 MEQ/L 145 MEQ/L Potassium Level 4.6 MEQ/L 4.1 MEQ/L Chloride Level 100 MEQ/L 99 MEQ/L Carbon Dioxide Level 39.3 MEQ/L 40.2 MEQ/L Anion Gap 6 MEQ/L 6 MEQ/L Blood Urea Nitrogen 27 MG/DL 25 MG/DL Creatinine 0.53 MG/DL 0.58 MG/DL Estimat Glomerular Filtration 115 ML/MIN 104 ML/MIN Rate Random Glucose 88 MG/DL 51 MG/DL Calcium Level 8.6 MG/DL 9.1 MG/DL Microbiology Date/Time Procedure Status Source Growth 01/20/17 17:08 Gram Stain - Final Resulted Sputum Expectorated Sputum 01/20/17 17:08 Sputum Culture - Preliminary Resulted S. Aureus Mrsa Gram Negative Ambrosio Imaging Last Impressions Chest X-Ray 01/20/17 0000 Signed Impressions: Service Date/Time: Friday, January 20, 2017 19:18 - CONCLUSION: There continues to be opacification of left hemithorax. No significant changes compared to the prior exam. Sanya Carter MD Chest CT 01/15/17 0000 Signed Impressions: Service Date/Time: Sunday, January 15, 2017 17:13 - CONCLUSION: 1. Dense consolidation left lung base suspicious for pneumonia. Underlying mass is not excluded at this time. 2. Cholelithiasis. Allen Mensah MD Lower Extremity Ultrasound 01/14/17 0000 Signed Impressions: Service Date/Time: Saturday, January 14, 2017 18:08 - CONCLUSION: Normal examination. Sachin Gonzalez MD Physical Exam CONSTITUTIONAL/GENERAL: This is a morbidly obese elderly female patient, in no apparent distress. TUBES/LINES/DRAINS: SKIN: No jaundice, rashes, or lesions. Ecchymoses on upper extremities. Skin temperature appropriate. Not diaphoretic. NECK: Trachea midline. Supple, nontender. Trach in place, capped, site [place] CARDIOVASCULAR: Regular rate and rhythm without murmurs, gallops, or rubs. No JVD. Peripheral pulses symmetric. RESPIRATORY/CHEST: Symmetric, unlabored respirations. Clear to auscultation. Breath sounds diminished L . No wheezes, rales, or rhonchi. GASTROINTESTINAL: Abdomen soft, non-tender, nondistended. No hepato-splenomegaly , or palpable masses. No guarding. Bowel sounds present. GENITOURINARY: Without palpable bladder distension. Garcia catheter in place with cloudy yellow urine MUSCULOSKELETAL: Extremities without clubbing, cyanosis, + 1 edema. Chronic skin changes and dependent rubor b/l feet NEUROLOGICAL: Awake and alert. Motor and sensory grossly within normal limits. Follows commands. Normal speech. Moves all extremities. PSYCHIATRIC: calm and cooperative Assessment & Plan Remarks PNA, L lung: MRSA, GNB in sputum ? underlying mass FUnguria -o on presentation ? old garcia - repeat urine clx neg @ 48 hrs on no antifungals with new garcia Low grade coag neg staph bactermeia - doubt clin significance - cont cefepime 2 gm q 8 hrs - cont vancomycin for now fu ID and S on the isolates anticipate 2 weeks of abx for non resolving PNA maybre feasible to switch to PO sputum clx if feasible - fu CT to ensure complete resolution dw Dr Kya Alfaro,Kari Saucedo MD Jan 22, 2017 21:59
[2017-01-23] VITALS (25 sets, daily range): BP systolic 109–152; BP diastolic 54–79; PULSE 91–118; RESP 16–18; TEMP 97.6–99; O2SAT 96–100
[2017-01-23] MEDS: DILTIAZEM HCL 30 MG TAB PO SCH ×5 (00:28→22:59)
[2017-01-23] MEDS: CEFEPIME INJ 2,000 MG in SODIUM CHLORIDE 0.9% INJ 100 ML IV SCH ×3 (05:01→22:59)
[2017-01-23] MEDS: INSULIN ASPART SUPPLEMENTAL SCALE SQ SCH ×4 (06:08→21:00)
[2017-01-23 06:53] LABS: HEMATOCRIT 29.4 % (35.0-46.0); MEAN CELL VOLUME 85.6 FL (80.0-100.0); MEAN CORPUSCULAR HEMOGLOBIN 28.1 PG (27.0-34.0); MEAN CORPUSCULAR HGB CONC 32.8 % (32.0-36.0); PLATELET COUNT 232 TH/MM3 (150-450); RED BLOOD COUNT 3.43 MIL/MM3 (4.00-5.30); RED CELL DISTRIBUTION WIDTH 21.5 % (11.6-17.2); REVIEW FLAG FINAL; WHITE BLOOD COUNT 9.4 TH/MM3 (4.0-11.0)
[2017-01-23 07:12] LABS: BICARBONATE 41.1 MEQ/L (21.0-32.0); POTASSIUM 4.4 MEQ/L (3.5-5.1)
[2017-01-23] MEDS: INSULIN DETEMIR 100 UNITS/ML VIAL SQ SCH ×2 (08:00→16:00)
[2017-01-23] MEDS: PANTOPRAZOLE SOD 20 MG DELAYED RELEASE TAB PO SCH (08:11)
[2017-01-23] MEDS: RIVAROXABAN 10 MG TAB PO SCH (08:11)
[2017-01-23] MEDS: PREGABALIN 75 MG CAP PO SCH (08:11)
[2017-01-23] MEDS: METOLAZONE 2.5 MG TAB PO SCH (08:11)
[2017-01-23] MEDS: FUROSEMIDE 40 MG TAB PO SCH (08:11)
[2017-01-23] MEDS: POTASSIUM CHLORIDE 20 MEQ CONTROLLED RELEASE TAB PO SCH ×4 (08:12→21:04)
[2017-01-23] MEDS: MAGNESIUM OXIDE 400 MG TAB PO SCH ×2 (08:12→21:06)
[2017-01-23] MEDS: DOCUSATE SODIUM 50 MG/SENNA 8.6 MG TAB PO SCH ×2 (08:12→21:05)
[2017-01-23] MEDS: METOPROLOL TARTRATE 25 MG TAB PO SCH ×2 (08:12→21:05)
[2017-01-23] MEDS: predniSONE 20 MG TAB PO SCH (08:12)
[2017-01-23] MEDS: PATIENT OWN MEDICATION TOPICAL SCH ×2 (08:13→21:07)
[2017-01-23] MEDS: HYDROCORTISONE ACETATE 25 MG SUPP RECTAL SCH ×2 (08:13→21:00)
[2017-01-23] MEDS: SODIUM CHLORIDE 0.9% FLUSH 10 ML FLUSH IV FLUSH SCH ×2 (08:13→21:08)
[2017-01-23] MEDS: RESP: BUDESONIDE 0.5 MG/2 ML NEB NEB SCH ×2 (11:06→19:31)
[2017-01-23] MEDS: VANCOMYCIN INJ 1,750 MG in SODIUM CHLORID 0.9% 500 ML INJ 500 ML IV SCH (12:00)
--- NOTE | 2017-01-23 15:43 | HHI.PR ---
Subjective Remarks Patient reports she is feeling okay. Coughing less. No shortness of breath. No chest pain. Afebrile. Objective Vitals Vital Signs Date Time Temp Pulse Resp B/P Pulse Ox O2 Delivery O2 Flow Rate FiO2 01/23/17 13:00 100 01/23/17 12:00 98.2 100 18 112/69 96 01/23/17 12:00 100 01/23/17 11:10 98 Nasal Cannula 2.00 01/23/17 11:00 100 01/23/17 10:00 106 01/23/17 09:00 110 01/23/17 08:56 20 01/23/17 08:00 108 01/23/17 08:00 97.9 99 18 112/73 100 01/23/17 07:30 100 Nasal Cannula 3.00 01/23/17 07:00 102 01/23/17 06:00 102 01/23/17 05:00 106 01/23/17 04:00 97.6 101 16 109/54 100 01/23/17 04:00 95 01/23/17 03:00 98 01/23/17 02:00 98 01/23/17 01:00 104 01/23/17 00:00 103 01/23/17 00:00 97.7 114 16 137/79 100 01/22/17 23:00 100 01/22/17 22:00 102 01/22/17 21:00 116 01/22/17 20:00 99.0 103 16 121/67 96 01/22/17 20:00 113 01/22/17 20:00 96 Nasal Cannula 3.00 01/22/17 19:04 98 Nasal Cannula 2.00 01/22/17 19:00 100 01/22/17 18:03 89 01/22/17 17:00 96 01/22/17 16:00 98.3 89 20 132/79 97 01/22/17 16:00 102 I/O 01/22/17 01/22/17 01/22/17 01/23/17 01/23/17 01/23/17 07:00 15:00 23:00 07:00 15:00 23:00 Intake Total 881 ml 1070 ml 480 ml Output Total 751 ml 1350 ml 1100 ml Balance 130 ml -280 ml -620 ml Intake Oral 720 ml 920 ml 480 ml IV Total 161 ml 150 ml Output Urine Total 750 ml 1350 ml 1100 ml Stool Total 1 ml Result Diagram: 01/23/1735 01/23/17534 Objective Remarks GENERAL: Morbidly obese female in no apparent distress. Trach is capped and in Place. CARDIOVASCULAR: Normal rate and regular rhythm without murmurs, gallops, or rubs. RESPIRATORY: Good respiratory efforts. Breath sounds diminished bilaterally at the bases. Some rhonchi over the left lung west. GASTROINTESTINAL: Abdomen soft, non-tender, non-distended. Normal active bowel sounds MUSCULOSKELETAL: Extremities without cyanosis. Some nonpitting edema NEURO: Alert & Oriented x4 to person, place, time, situation. Moves all ext x4 PSYCH: Appropriate mood and affect. Procedures None A/P Problem List: (1) Pneumonia ICD Code: J18.9 Status: Acute (2) Afib ICD Code: I48.91 Status: Chronic (3) Hypoxia ICD Code: R09.02 Status: Acute (4) CHF (congestive heart failure) ICD Code: I50.9 Status: Acute Assessment and Plan 66-year-old female with a past medical history of COPD, A. fib, HLD, HTN, GERD, DM who presents from SNF for shortness breath and cough, being treated for PNA. Sepsis secondary to PNA: Sepsis resolved. Treatment for pneumonia as below. Blood cx 01/13 with staph. Chest x-ray 01/13 opacification of the left hemithorax, unchanged when reviewed with previous imaging, patient likely with chronic atelectasis. CT shows pneumonia although underlying mass could not be excluded. -blood cultures 01/17 with NGTD x 3 days. - Sputum culture growing MRSA and gram-negative rods - Discussed with infectious disease. Awaiting further micro-identification for final antibiotic recommendations. - continue cefepime (01/14 - ) - Continue vancomycin (01/19- ) - Will need repeat chest CT to ensure resolution vs mass. - Continue oxygen to maintain sats greater than 92% -Robitussin when necessary - Acapella q1h Bacteremia. Doubt clinical significance per ID. One aerobic culture with staph capitis ureolyticus and one anaerobic bottle with coag-negative. 6 other bottles negative to date. -ID following -Antibiotics as above Acute respiratory failure-pneumonia and diastolic CHF, improved switched to by mouth Lasix preserved EF. Tracheostomy weaning per pulmonary A. fib with RVR: Rate controlled. Given 20 mg total IV Cardizem in the ED. RVR secondary to agitation. - Discontinue Cardizem drip - Continue Cardizem by mouth and home metoprolol. On Xarelto for anticoagulation. Patient states she cannot tolerate 20 mg Xarelto secondary to bleeding, we'll continue 10 mg daily. Abnormal urinalysis: Repeat urine negative. COPD with chronic respiratory failure: Does not seem to be in acute exacerbation currently. Continue daily prednisone and home pulmonary regimen. Diabetes mellitus: Continue Levemir to 38 units at bedtime and 40 units in the morning. Coverage with SSI with Accu-Cheks. Continue Lyrica for neuropathy. Prophylaxis: PPI. Xarelto. Discussed with ID Dr. Alfaro Problem Qualifiers (1) Pneumonia: Qualified Code: J18.1 - Pneumonia of left lower lobe due to infectious organism (2) Afib: Qualified Code: I48.91 - Atrial fibrillation, unspecified type Ras Palma MD Jan 23, 2017 15:43
[2017-01-23] MEDS ORDERED: RESP: ALBUTEROL 2.5 MG/IPRATROPIUM 0.5 MG NEB (PRN) NEB (15:45)
--- NOTE | 2017-01-23 18:22 | HHI.PR ---
Subjective Remarks YO Obese female with Trach, opacification of left lung CT chest large infilt left base No fever On NC breathing better has cough and sputum Objective Vital Signs Vital Signs Date Time Temp Pulse Resp B/P Pulse Ox O2 Delivery O2 Flow Rate FiO2 01/23/17 17:00 112 01/23/17 16:00 97.9 104 18 152/73 97 01/23/17 16:00 96 01/23/17 15:00 102 01/23/17 13:00 100 01/23/17 12:00 98.2 100 18 112/69 96 01/23/17 12:00 100 01/23/17 11:10 98 Nasal Cannula 2.00 01/23/17 11:00 100 01/23/17 10:00 106 01/23/17 09:00 110 01/23/17 08:56 20 01/23/17 08:00 108 01/23/17 08:00 97.9 99 18 112/73 100 01/23/17 07:30 100 Nasal Cannula 3.00 01/23/17 07:00 102 01/23/17 06:00 102 01/23/17 05:00 106 01/23/17 04:00 97.6 101 16 109/54 100 01/23/17 04:00 95 01/23/17 03:00 98 01/23/17 02:00 98 01/23/17 01:00 104 01/23/17 00:00 103 01/23/17 00:00 97.7 114 16 137/79 100 01/22/17 23:00 100 01/22/17 22:00 102 01/22/17 21:00 116 01/22/17 20:00 99.0 103 16 121/67 96 01/22/17 20:00 113 01/22/17 20:00 96 Nasal Cannula 3.00 01/22/17 19:04 98 Nasal Cannula 2.00 01/22/17 19:00 100 I/O 01/22/17 01/22/17 01/22/17 01/23/17 01/23/17 01/23/17 07:00 15:00 23:00 07:00 15:00 23:00 Intake Total 881 ml 1070 ml 480 ml 1560 ml Output Total 751 ml 1350 ml 1100 ml 1300 ml Balance 130 ml -280 ml -620 ml 260 ml Intake Oral 720 ml 920 ml 480 ml 960 ml IV Total 161 ml 150 ml 600 ml Output Urine Total 750 ml 1350 ml 1100 ml 1300 ml Stool Total 1 ml # Bowel Movements 0 Result Diagram: 01/23/1753401/23/17534 Objective Remarks GENERAL: Obese female Mild sob SKIN: Warm and dry. HEAD: Normocephalic. EYES: No scleral icterus. No injection or drainage. NECK: Supple, trachea midline. No JVD or lymphadenopathy. has Trach, capped CARDIOVASCULAR: Regular rate and rhythm without murmurs, gallops, or rubs. RESPIRATORY: Breath sounds equal bilaterally. No accessory muscle use. GASTROINTESTINAL: Abdomen soft, non-tender, nondistended. MUSCULOSKELETAL: No cyanosis, or edema. BACK: Nontender without obvious deformity. No CVA tenderness. A/P Assessment and Plan Left lower infilt, no obdst of airways COPD Trach AF DM Morbid obesity APOLONIA likly PLAN: Aerosol nebs Acapella monitor BS Cont Xarelto Acapella q 1 hr Supplement 02 to keep sat >90% Abx Vanco and Cefepime per Emmett Rodriguez MD Jan 23, 2017 18:22
[2017-01-23] MEDS: TAMSULOSIN HCL 0.4 MG CAP PO SCH (21:08)
[2017-01-24] VITALS (29 sets, daily range): BP systolic 94–148; BP diastolic 56–84; PULSE 75–124; RESP 16–22; TEMP 96.9–98.3; O2SAT 94–99
[2017-01-24] MEDS: CEFEPIME INJ 2,000 MG in SODIUM CHLORIDE 0.9% INJ 100 ML IV SCH ×3 (03:51→22:01)
[2017-01-24] MEDS: VANCOMYCIN INJ 1,750 MG in SODIUM CHLORID 0.9% 500 ML INJ 500 ML IV SCH (04:47)
[2017-01-24] MEDS: DILTIAZEM HCL 30 MG TAB PO SCH ×3 (05:02→18:28)
[2017-01-24 06:53] LABS: HEMATOCRIT 30.4 % (35.0-46.0); MEAN CORPUSCULAR HEMOGLOBIN 28.2 PG (27.0-34.0); MEAN CORPUSCULAR HGB CONC 32.8 % (32.0-36.0); PLATELET COUNT 236 TH/MM3 (150-450); RED BLOOD COUNT 3.53 MIL/MM3 (4.00-5.30); RED CELL DISTRIBUTION WIDTH 21.5 % (11.6-17.2); REVIEW FLAG FINAL; WHITE BLOOD COUNT 10.5 TH/MM3 (4.0-11.0)
[2017-01-24] MEDS: INSULIN ASPART SUPPLEMENTAL SCALE SQ SCH ×4 (07:00→21:00)
[2017-01-24 07:24] LABS: BICARBONATE 38.7 MEQ/L (21.0-32.0); POTASSIUM 4.2 MEQ/L (3.5-5.1)
[2017-01-24] MEDS: RESP: BUDESONIDE 0.5 MG/2 ML NEB NEB SCH ×2 (07:47→20:27)
--- NOTE | 2017-01-24 08:17 | HHI.PR ---
Subjective Remarks Patient reports she is feeling well. No shortness of breath. Discussed with infectious disease yesterday, awaiting further ID from sputum to decide on final antibiotics recommendations. Objective Vitals Vital Signs Date Time Temp Pulse Resp B/P Pulse Ox O2 Delivery O2 Flow Rate FiO2 01/24/17 07:48 95 Nasal Cannula 2.00 01/24/17 06:00 108 01/24/17 05:00 108 01/24/17 04:00 103 01/24/17 04:00 97.4 88 18 128/84 95 01/24/17 03:00 104 01/24/17 02:00 108 01/24/17 01:00 94 01/24/17 00:00 96.9 105 18 94/64 98 01/24/17 00:00 96 01/23/17 23:00 91 01/23/17 22:00 110 01/23/17 21:00 112 01/23/17 20:00 99.0 114 18 119/67 98 01/23/17 20:00 118 01/23/17 19:33 98 Nasal Cannula 2.00 01/23/17 19:00 105 01/23/17 19:00 100 Nasal Cannula 2.00 01/23/17 18:00 108 01/23/17 17:00 112 01/23/17 16:00 97.9 104 18 152/73 97 01/23/17 16:00 96 01/23/17 15:00 102 01/23/17 13:00 100 01/23/17 12:00 98.2 100 18 112/69 96 01/23/17 12:00 100 01/23/17 11:10 98 Nasal Cannula 2.00 01/23/17 11:00 100 01/23/17 10:00 106 01/23/17 09:00 110 01/23/17 08:56 20 I/O 01/23/17 01/23/17 01/23/17 01/24/17 01/24/17 01/24/17 07:00 15:00 23:00 07:00 15:00 23:00 Intake Total 480 ml 1560 ml 700 ml Output Total 1100 ml 1300 ml Balance -620 ml 260 ml 700 ml Intake Oral 480 ml 960 ml IV Total 600 ml 700 ml Output Urine Total 1100 ml 1300 ml # Bowel Movements 0 Result Diagram: 01/24/17 0445 01/24/175 Objective Remarks GENERAL: Morbidly obese female in no apparent distress. Trach is capped and in Place. CARDIOVASCULAR: Normal rate and regular rhythm without murmurs, gallops, or rubs. RESPIRATORY: Good respiratory efforts. Breath sounds diminished bilaterally at the bases. Some rhonchi over the left lung west. GASTROINTESTINAL: Abdomen soft, non-tender, non-distended. Normal active bowel sounds MUSCULOSKELETAL: Extremities without cyanosis. Some nonpitting edema NEURO: Alert & Oriented x4 to person, place, time, situation. Moves all ext x4 PSYCH: Appropriate mood and affect. Procedures None A/P Problem List: (1) Pneumonia ICD Code: J18.9 Status: Acute (2) Afib ICD Code: I48.91 Status: Chronic (3) Hypoxia ICD Code: R09.02 Status: Acute (4) CHF (congestive heart failure) ICD Code: I50.9 Status: Acute Assessment and Plan 66-year-old female with a past medical history of COPD, A. fib, HLD, HTN, GERD, DM who presents from SNF for shortness breath and cough, being treated for PNA. Sepsis secondary to PNA: Sepsis resolved. Treatment for pneumonia as below. Blood cx 01/13 with staph. Chest x-ray 01/13 opacification of the left hemithorax, unchanged when reviewed with previous imaging, patient likely with chronic atelectasis. CT shows pneumonia although underlying mass could not be excluded. -blood cultures 01/17 with NGTD x 3 days. - Sputum culture growing MRSA and gram-negative rods - Discussed with infectious disease. Awaiting further micro-identification for final antibiotic recommendations. - continue cefepime (01/14 - ) - Continue vancomycin (01/19- ) - Will need repeat chest CT to ensure resolution vs mass. - Continue oxygen to maintain sats greater than 92% -Robitussin when necessary - Acapella q1h Bacteremia. Doubt clinical significance per ID. One aerobic culture with staph capitis ureolyticus and one anaerobic bottle with coag-negative. 6 other bottles negative to date. -ID following -Antibiotics as above Acute respiratory failure-pneumonia and diastolic CHF, improved switched to by mouth Lasix preserved EF. Tracheostomy weaning per pulmonary A. fib with RVR: Rate controlled. Given 20 mg total IV Cardizem in the ED. RVR secondary to agitation. - Discontinue Cardizem drip - Continue Cardizem by mouth and home metoprolol. On Xarelto for anticoagulation. Patient states she cannot tolerate 20 mg Xarelto secondary to bleeding, we'll continue 10 mg daily. Abnormal urinalysis: Repeat urine negative. COPD with chronic respiratory failure: Does not seem to be in acute exacerbation currently. Continue daily prednisone and home pulmonary regimen. Diabetes mellitus: Continue Levemir to 38 units at bedtime and 40 units in the morning. Coverage with SSI with Accu-Cheks. Continue Lyrica for neuropathy. Prophylaxis: PPI. Xarelto. Discussed with ID Dr. Alfaro Discharge Planning Awaiting further micro ID. Infectious disease final recs for DC to SNF. Problem Qualifiers (1) Pneumonia: Qualified Code: J18.1 - Pneumonia of left lower lobe due to infectious organism (2) Afib: Qualified Code: I48.91 - Atrial fibrillation, unspecified type Ras Palma MD Jan 24, 2017 08:17
[2017-01-24] MEDS: DOCUSATE SODIUM 50 MG/SENNA 8.6 MG TAB PO SCH ×2 (09:00→22:00)
[2017-01-24] MEDS ORDERED: OXYC1CAP PO (09:27)
[2017-01-24] MEDS ORDERED: XANA1TAB2 PO (09:27)
[2017-01-24] MEDS: MAGNESIUM OXIDE 400 MG TAB PO SCH ×2 (10:18→22:00)
[2017-01-24] MEDS: METOPROLOL TARTRATE 25 MG TAB PO SCH ×2 (10:18→22:00)
[2017-01-24] MEDS: POTASSIUM CHLORIDE 20 MEQ CONTROLLED RELEASE TAB PO SCH ×4 (10:18→22:00)
[2017-01-24] MEDS: FUROSEMIDE 40 MG TAB PO SCH (10:18)
[2017-01-24] MEDS: RIVAROXABAN 10 MG TAB PO SCH (10:18)
[2017-01-24] MEDS: METOLAZONE 2.5 MG TAB PO SCH (10:19)
[2017-01-24] MEDS: PANTOPRAZOLE SOD 20 MG DELAYED RELEASE TAB PO SCH (10:19)
[2017-01-24] MEDS: PREGABALIN 75 MG CAP PO SCH (10:19)
[2017-01-24] MEDS: INSULIN DETEMIR 100 UNITS/ML VIAL SQ SCH ×2 (10:19→16:40)
[2017-01-24] MEDS: predniSONE 20 MG TAB PO SCH (10:19)
[2017-01-24] MEDS: HYDROCORTISONE ACETATE 25 MG SUPP RECTAL SCH ×2 (10:21→21:00)
[2017-01-24] MEDS: SODIUM CHLORIDE 0.9% FLUSH 10 ML FLUSH IV FLUSH SCH ×2 (10:21→21:00)
[2017-01-24] MEDS: PATIENT OWN MEDICATION TOPICAL SCH ×2 (10:22→21:00)
--- NOTE | 2017-01-24 18:33 | HHI.IDPN ---
Subjective Subjective Remarks doing ok afebrile Antibiotics cefepime vancomycin Past Medical History COPD Morbid obesity Obstrctive sleep apnea Allergies: Coded Allergies: Penicillin (Verified Allergy, Severe, 05/01/16) *MDRO Multi-Drug Resistant Organism (Verified Adverse Reaction, Unknown, ) MRSA (sputum)-01/20/17 Objective . Vital Signs Date Time Temp Pulse Resp B/P Pulse Ox O2 Delivery O2 Flow Rate FiO2 01/24/17 18:10 104 01/24/17 17:33 112 01/24/17 16:44 110 01/24/17 16:14 97.9 103 20 128/56 95 01/24/17 15:14 123 01/24/17 14:19 108 01/24/17 13:40 114 01/24/17 12:28 98.3 103 22 120/77 96 01/24/17 12:15 114 01/24/17 11:00 124 01/24/17 10:00 108 01/24/17 09:56 99 Nasal Cannula 1.00 01/24/17 09:56 97.9 99 22 148/81 99 01/24/17 09:00 116 01/24/17 08:00 108 01/24/17 07:48 95 Nasal Cannula 2.00 01/24/17 07:00 107 01/24/17 06:00 108 01/24/17 05:00 108 01/24/17 04:00 103 01/24/17 04:00 97.4 88 18 128/84 95 01/24/17 03:00 104 01/24/17 02:00 108 01/24/17 01:00 94 01/24/17 00:00 96.9 105 18 94/64 98 01/24/17 00:00 96 01/23/17 23:00 91 01/23/17 22:00 110 01/23/17 21:00 112 01/23/17 20:00 99.0 114 18 119/67 98 01/23/17 20:00 118 01/23/17 19:33 98 Nasal Cannula 2.00 01/23/17 19:00 105 01/23/17 19:00 100 Nasal Cannula 2.00 01/23/17 01/23/17 01/24/17 14:59 22:59 06:59 Intake Total 1560 ml 700 ml Output Total 1300 ml Balance 260 ml 700 ml Intake Oral 960 ml IV Total 600 ml 700 ml Output Urine Total 1300 ml # Bowel Movements 0 . Laboratory Tests Test 01/23/17 01/24/17 05:35 04:45 White Blood Count 9.4 TH/MM3 10.5 TH/MM3 Red Blood Count 3.43 MIL/MM3 3.53 MIL/MM3 Hemoglobin 9.7 GM/DL 10.0 GM/DL Hematocrit 29.4 % 30.4 % Mean Corpuscular Volume 85.6 FL 86.0 FL Mean Corpuscular Hemoglobin 28.1 PG 28.2 PG Mean Corpuscular Hemoglobin 32.8 % 32.8 % Concent Red Cell Distribution Width 21.5 % 21.5 % Platelet Count 232 TH/MM3 236 TH/MM3 Mean Platelet Volume 8.2 FL 8.6 FL Laboratory Tests Test 01/23/17 01/24/17 05:35 04:45 Sodium Level 144 MEQ/L 145 MEQ/L Potassium Level 4.4 MEQ/L 4.2 MEQ/L Chloride Level 99 MEQ/L 100 MEQ/L Carbon Dioxide Level 41.1 MEQ/L 38.7 MEQ/L Anion Gap 4 MEQ/L 6 MEQ/L Blood Urea Nitrogen 26 MG/DL 29 MG/DL Creatinine 0.50 MG/DL 0.50 MG/DL Estimat Glomerular Filtration 123 ML/MIN 123 ML/MIN Rate Random Glucose 59 MG/DL 49 MG/DL Calcium Level 8.8 MG/DL 9.0 MG/DL Imaging Last Impressions Chest X-Ray 01/20/17 0000 Signed Impressions: Service Date/Time: Friday, January 20, 2017 19:18 - CONCLUSION: There continues to be opacification of left hemithorax. No significant changes compared to the prior exam. Sanya Carter MD Chest CT 01/15/17 0000 Signed Impressions: Service Date/Time: Sunday, January 15, 2017 17:13 - CONCLUSION: 1. Dense consolidation left lung base suspicious for pneumonia. Underlying mass is not excluded at this time. 2. Cholelithiasis. Allen Mensah MD Lower Extremity Ultrasound 01/14/17 0000 Signed Impressions: Service Date/Time: Saturday, January 14, 2017 18:08 - CONCLUSION: Normal examination. Sachin Gonzalez MD Physical Exam CONSTITUTIONAL/GENERAL: This is a morbidly obese elderly female patient, in no apparent distress. TUBES/LINES/DRAINS: SKIN: No jaundice, rashes, or lesions. NECK: Trach in place, capped, site OK CARDIOVASCULAR: Regular rate and rhythm without murmurs, gallops, or rubs. No JVD. Peripheral pulses symmetric. RESPIRATORY/CHEST: Symmetric, unlabored respirations. Scattered rhonchi b/l GASTROINTESTINAL: Abdomen soft, non-tender, nondistended. No hepato-splenomegaly , or palpable masses. No guarding. Bowel sounds present. GENITOURINARY: Without palpable bladder distension. Garcia catheter in place with cloudy yellow urine MUSCULOSKELETAL: Extremities without clubbing, cyanosis, + 1 edema. Chronic skin changes and dependent rubor b/l feet NEUROLOGICAL: Awake and alert. Motor and sensory grossly within normal limits. Follows commands. Normal speech. Moves all extremities. PSYCHIATRIC: calm and cooperative Assessment & Plan Remarks PNA, L lung: MRSA, GNB in sputum ? underlying mass with complete opacification of L lung field dw micro: GNB is probably PSAE, S P FUnguria -o on presentation ? old garcia - repeat urine clx neg @ 48 hrs on no antifungals with new garcia Low grade coag neg staph bactermeia - doubt clin significance - cont cefepime 2 gm q 8 hrs - cont vancomycin for now fu ID and S on the isolates anticipate 2 weeks of abx for non resolving PNA maybre feasible to switch to PO (zyvox + levaqyin 750 mg daily if PSAE is sensitive to levaquine) - fu CXR - fu CT to ensure complete resolution dw Kari Chambers MD Jan 24, 2017 18:33
--- NOTE | 2017-01-24 19:15 | HHI.PR ---
Subjective Remarks YO Obese female with Trach, opacification of left lung CT chest large infilt left base No fever On NC breathing better has cough and sputum Uses Acapella Objective Vital Signs Vital Signs Date Time Temp Pulse Resp B/P Pulse Ox O2 Delivery O2 Flow Rate FiO2 01/24/17 18:10 104 01/24/17 17:33 112 01/24/17 16:44 110 01/24/17 16:14 97.9 103 20 128/56 95 01/24/17 15:14 123 01/24/17 14:19 108 01/24/17 13:40 114 01/24/17 12:28 98.3 103 22 120/77 96 01/24/17 12:15 114 01/24/17 11:00 124 01/24/17 10:00 108 01/24/17 09:56 99 Nasal Cannula 1.00 01/24/17 09:56 97.9 99 22 148/81 99 01/24/17 09:00 116 01/24/17 08:00 108 01/24/17 07:48 95 Nasal Cannula 2.00 01/24/17 07:00 107 01/24/17 06:00 108 01/24/17 05:00 108 01/24/17 04:00 103 01/24/17 04:00 97.4 88 18 128/84 95 01/24/17 03:00 104 01/24/17 02:00 108 01/24/17 01:00 94 01/24/17 00:00 96.9 105 18 94/64 98 01/24/17 00:00 96 01/23/17 23:00 91 01/23/17 22:00 110 01/23/17 21:00 112 01/23/17 20:00 99.0 114 18 119/67 98 01/23/17 20:00 118 01/23/17 19:33 98 Nasal Cannula 2.00 I/O 01/23/17 01/23/17 01/23/17 01/24/17 01/24/17 01/24/17 07:00 15:00 23:00 07:00 15:00 23:00 Intake Total 480 ml 1560 ml 700 ml 1085 ml Output Total 1100 ml 1300 ml 1650 ml Balance -620 ml 260 ml 700 ml -565 ml Intake Oral 480 ml 960 ml 960 ml IV Total 600 ml 700 ml 125 ml Output Urine Total 1100 ml 1300 ml 1650 ml # Bowel Movements 0 2 Result Diagram: 01/24/1744401/24/17444 Objective Remarks GENERAL: Obese female Mild sob SKIN: Warm and dry. HEAD: Normocephalic. EYES: No scleral icterus. No injection or drainage. NECK: Supple, trachea midline. No JVD or lymphadenopathy. has Trach, capped CARDIOVASCULAR: Regular rate and rhythm without murmurs, gallops, or rubs. RESPIRATORY: Breath sounds equal bilaterally. No accessory muscle use. GASTROINTESTINAL: Abdomen soft, non-tender, nondistended. MUSCULOSKELETAL: No cyanosis, or edema. BACK: Nontender without obvious deformity. No CVA tenderness. A/P Assessment and Plan Left lower infilt, no obdst of airways COPD Trach AF DM Morbid obesity APOLONIA likly PLAN: Aerosol nebs monitor BS Cont Xarelto Acapella q 1 hr Supplement 02 to keep sat >90% Abx Vanco and Cefepime per ID Emmett Cooper MD Jan 24, 2017 19:15
[2017-01-24] MEDS: TAMSULOSIN HCL 0.4 MG CAP PO SCH (22:00)
[2017-01-25] VITALS (17 sets, daily range): BP systolic 116–131; BP diastolic 62–72; PULSE 90–124; RESP 16–18; TEMP 97.9–98.3; O2SAT 92–99
[2017-01-25] MEDS: VANCOMYCIN INJ 1,750 MG in SODIUM CHLORID 0.9% 500 ML INJ 500 ML IV SCH (00:19)
[2017-01-25] MEDS: DILTIAZEM HCL 30 MG TAB PO SCH ×3 (00:20→12:09)
--- NOTE | 2017-01-25 04:48 | RADRPT ---
EXAM DATE/TIME: 01/25/2017 04:10 [facility] COMPARISON: CHEST SINGLE AP, January 20, 2017, 19:18. INDICATIONS : Shortness of breath, possible pulmonary disease. MEDICAL HISTORY : Congestive heart failure. Hypertension Asthma SURGICAL HISTORY : Tracheostomy ENCOUNTER: Subsequent ACUITY: 2 weeks PAIN SCORE: 0/10 LOCATION: Bilateral chest FINDINGS: A single view of the chest demonstrates complete opacification left hemithorax and volume loss. Trach eostomy tube unchanged. Right lung is clear The cardiomediastinal contours are unremarkable. Osseous structures are intact. CONCLUSION: Persistent opacification left hemithorax and associated volume loss, this could be from mucous pluggi ng or obstructing endobronchial lesion. Bronchoscopy may be warranted if not performed recently. El Nuñez MD on January 25, 2017 at 4:44 Board Certified Radiologist. This report was verified electronically.
[2017-01-25] MEDS: CEFEPIME INJ 2,000 MG in SODIUM CHLORIDE 0.9% INJ 100 ML IV SCH ×2 (06:41→14:00)
[2017-01-25] MEDS: INSULIN ASPART SUPPLEMENTAL SCALE SQ SCH ×2 (06:41→11:00)
[2017-01-25] MEDS: MAGNESIUM OXIDE 400 MG TAB PO SCH (08:14)
[2017-01-25] MEDS: INSULIN DETEMIR 100 UNITS/ML VIAL SQ SCH (08:14)
[2017-01-25] MEDS: PREGABALIN 75 MG CAP PO SCH (08:15)
[2017-01-25] MEDS: METOPROLOL TARTRATE 25 MG TAB PO SCH (08:15)
[2017-01-25] MEDS: FUROSEMIDE 40 MG TAB PO SCH (08:15)
[2017-01-25] MEDS: predniSONE 20 MG TAB PO SCH (08:16)
[2017-01-25] MEDS: POTASSIUM CHLORIDE 20 MEQ CONTROLLED RELEASE TAB PO SCH ×2 (08:17→12:09)
[2017-01-25] MEDS: RIVAROXABAN 10 MG TAB PO SCH (08:17)
[2017-01-25] MEDS: PANTOPRAZOLE SOD 20 MG DELAYED RELEASE TAB PO SCH (08:17)
[2017-01-25] MEDS: METOLAZONE 2.5 MG TAB PO SCH (08:17)
[2017-01-25] MEDS: DOCUSATE SODIUM 50 MG/SENNA 8.6 MG TAB PO SCH (08:19)
[2017-01-25] MEDS: HYDROCORTISONE ACETATE 25 MG SUPP RECTAL SCH (08:20)
[2017-01-25] MEDS: SODIUM CHLORIDE 0.9% FLUSH 10 ML FLUSH IV FLUSH SCH (08:21)
[2017-01-25] MEDS: PATIENT OWN MEDICATION TOPICAL SCH (08:22)
[2017-01-25] MEDS: RESP: BUDESONIDE 0.5 MG/2 ML NEB NEB SCH (08:31)
[2017-01-25] MEDS ORDERED: LEVO750T33 PO (12:19)
[2017-01-25] MEDS ORDERED: LINE1TAB PO (12:19)
--- NOTE | 2017-01-25 12:37 | HHI.DS ---
Discharge Summary Admission Date Jan 13, 2017 at 17:47 Discharge Date: Jan 25, 2017 Admitting Diagnosis pneumonia, hypoxia, pleural effusion (1) Pneumonia ICD Code: J18.9 (2) Afib ICD Code: I48.91 (3) Hypoxia ICD Code: R09.02 (4) CHF (congestive heart failure) ICD Code: I50.9 Procedures None Brief History - From Admission 66-year-old female with a past medical history of COPD, A. fib, HLD, HTN, GERD, DM who presents from SNF for shortness breath and cough. Patient states that for the past 3 days she's been having worsening shortness of breath. She's been having cough that is productive with yellow/green/white sputum. She denies any fever, chills, chest pain, abdominal pain, nausea, vomiting. She states that occasionally she has heart racing sensation, not currently. She has a chronic indwelling Solitario catheter, unsure when last time was it was changed. She states that she had some loose stools yesterday after receiving a stool softener. She does not follow with a control board operator. She has a history of chronic collapsed left lung. She has a capped tracheostomy. Chronically on O2. Chronically on steroids. Not on CPAP at night. She states she normally ambulates using a cane. CBC/BMP: 01/24/17 0445 01/24/17 0445 Significant Findings Laboratory Tests Test 01/23/17 01/24/17 05:35 04:45 Red Blood Count 3.43 MIL/MM3 3.53 MIL/MM3 (4.00-5.30) (4.00-5.30) Hemoglobin 9.7 GM/DL 10.0 GM/DL (11.6-15.3) (11.6-15.3) Hematocrit 29.4 % 30.4 % (35.0-46.0) (35.0-46.0) Red Cell Distribution Width 21.5 % 21.5 % (11.6-17.2) (11.6-17.2) Carbon Dioxide Level 41.1 MEQ/L 38.7 MEQ/L (21.0-32.0) (21.0-32.0) Anion Gap 4 MEQ/L (5-15) Blood Urea Nitrogen 26 MG/DL (7-18) 29 MG/DL (7-18) Random Glucose 59 MG/DL 49 MG/DL (74-106) (74-106) Imaging Last Impressions Chest X-Ray 01/25/17 0600 Signed Impressions: Service Date/Time: January 04:10 - CONCLUSION: Persistent opacification left hemithorax and associated volume loss, this could be from mucous plugging or obstructing endobronchial lesion. Bronchoscopy may be warranted if not performed recently. El Nuñez MD Chest CT 01/15/17 0000 Signed Impressions: Service Date/Time: Sunday, January 15, 2017 17:13 - CONCLUSION: 1. Dense consolidation left lung base suspicious for pneumonia. Underlying mass is not excluded at this time. 2. Cholelithiasis. Allen Mensah MD Lower Extremity Ultrasound 01/14/17 0000 Signed Impressions: Service Date/Time: Saturday, January 14, 2017 18:08 - CONCLUSION: Normal examination. Sachin Gonzalez MD PE at Discharge GENERAL: Morbidly obese female in no apparent distress. Trach is capped and in Place. CARDIOVASCULAR: Normal rate and regular rhythm without murmurs, gallops, or rubs. RESPIRATORY: Good respiratory efforts. Breath sounds diminished bilaterally at the bases. Some rhonchi over the left lung west. GASTROINTESTINAL: Abdomen soft, non-tender, non-distended. Normal active bowel sounds MUSCULOSKELETAL: Extremities without cyanosis. Some nonpitting edema NEURO: Alert & Oriented x4 to person, place, time, situation. Moves all ext x4 PSYCH: Appropriate mood and affect. Pt update on day of discharge Patient reports she is feeling okay. Breathing comfortably on room air. We discussed discharge planning to the shelter facility at length. She is comfortable with returning to the shelter facility to continue rehabilitation. I discussed the case with the patient's control board operator, Dr. Cooper. Hospital Course 66-year-old female with a past medical history of COPD, A. fib, HLD, HTN, GERD, DM who presents from SNF for shortness breath and cough. Evaluation and treatment course detailed below: Sepsis secondary to PNA: Sepsis resolved. Treatment for pneumonia as below. Blood cx 01/13 with staph. Chest x-ray 01/13 opacification of the left hemithorax, unchanged when reviewed with previous imaging, patient likely with chronic atelectasis. CT shows pneumonia although underlying mass could not be excluded. Discussed with pulmonology. Patient has a known persistent atelectasis on the left, she has had bronchoscopies with no improvement. Discussed with Dr. Cooper, patient cleared for discharge to follow up outpatient. Patient was treated with cefepime and vancomycin from 01/14/17 through 01/25/17 Under the guidance of infectious disease. - Sputum culture grew MRSA and Pseudomonas - Discussed with infectious disease. Patient discharged on Zyvox and Levaquin - Will need repeat chest CT to ensure resolution vs mass. This was ordered to be done in a couple of weeks. Acute respiratory failure-pneumonia and diastolic CHF, improved switched to by mouth Lasix preserved EF. She has a persistent left-sided opacification/pneumonia. See above Tracheostomy weaning per pulmonary to be continued outpatient. Bacteremia. Doubt clinical significance per ID. One aerobic culture with staph capitis ureolyticus and one anaerobic bottle with coag-negative. 6 other bottles negative to date. -Antibiotics as above A. fib with RVR: Rate controlled. Given 20 mg total IV Cardizem in the ED. RVR secondary to agitation. - Discontinue Cardizem drip - Continue Cardizem by mouth and home metoprolol. On Xarelto for anticoagulation. Patient states she cannot tolerate 20 mg Xarelto secondary to bleeding, we'll continue 10 mg daily. Abnormal urinalysis: Repeat urine negative. Diabetes mellitus: Continue Levemir to 38 units at bedtime and 40 units in the morning. Coverage with SSI with Accu-Cheks. Continue Lyrica for neuropathy. Pt Condition on Discharge: Stable Discharge Disposition: Discharge to SNF Discharge Time: > 30 minutes Discharge Instructions DIET: Follow Instructions for: Diabetic Diet Activities you can perform: Regular-No Restrictions Follow up Referrals: PCP Follow-up - 1 Week Pulmonology - 1 Week New Orders: CT THORAX W/O CONTRAST (CHEST) - 2 Weeks New Medications: Hydrocodone-Acetaminophen (Hydrocodone-Acetaminophen) 5-325 mg Tab 1 TAB PO Q6H PRN PAIN #10 Ref 0 TAB Levofloxacin (Levofloxacin) 750 Mg Tab 750 MG PO DAILY Infection #14 Ref 0 TAB Linezolid (Linezolid) 600 Mg Tab 600 MG PO Q12H Infection #28 Ref 0 TAB Diltiazem (Cardizem) 30 Mg Tab 30 MG PO Q6HR Regulate Heart Beat #120 TAB Furosemide (Furosemide) 40 Mg Tab 40 MG PO DAILY Prevent Heart Failure #30 TAB Levalbuterol Neb (Levalbuterol Neb) 1.25 Mg/3 Ml Neb 1.25 MG NEB Q6HR WHILE AWAKE NEB Breathing Treatment #120 NEBULE Levalbuterol Neb (Levalbuterol Neb) 1.25 Mg/3 Ml Neb 1.25 MG NEB Q4HR NEB PRN SOB/WHEEZING #120 NEBULE Potassium Chloride Microencaps (Potassium Chloride Microencaps) 20 Meq Tab 40 MEQ PO QID Electrolyte Replacement #120 TAB Continued Medications: Acetylcysteine Liq/Neb (Acetylcysteine Liq/Neb) 200 mg/ml Soln 4 ML NEB Q8HR PRN MUCOUS SECRETIONS Ref 0 NEBULE Albuterol Neb (Albuterol Neb) 2.5 Mg/3 Ml Neb 2.5 MG NEB Q4HR While awake PRN SHORTNESS OF BREATH #60 Ref 0 NEBULE Alprazolam (Xanax) 1 Mg Tab 1 MG PO BID PRN ANXIETY #20 Ref 0 TAB (This prescription has been renewed) Arformoterol Neb (Brovana Neb) 15 Mcg/2 Ml Vial 15 MCG NEB BID Maintenance treatment of bronchoconstriction in COPD. COPD #60 NEBULE Budesonide Neb (Budesonide Neb) 0.5 Mg/2 Ml Neb 0.5 MG NEB BID COPD #30 Ref 0 NEBULE Glucagon (Rdna) Inj Kit (Glucagen Hypokit Inj Kit) 1 Mg Kit 1 MG IM ONCE PRN HYPOGLYCEMIA #1 Ref 0 KIT Hydrocortisone Acetate Supp (Anucort-Hc Supp) 25 Mg Supp 25 MG RECTAL Q12HR Hemorrhoids Ref 0 SUPP Insulin Glargine Inj (Lantus Inj) 100 Unit/Ml Inj 40 UNITS SQ Q12HR DM Insulin Lispro (Human) Inj (Humalog Inj) 1,000 Unit/10 Ml Vial 4-16 UNITS SQ ACHS Sliding scale: 70-150=0 units, 151-200=4 units, 201-250=8 units, 251-300=10 units, 301-350=12 units, 351-400=16 units, 401 + Notify Blood Sugar Management #1 Ref 0 VIAL Metoclopramide (Reglan) 10 Mg Tab 10 MG PO Q6HR PRN NAUSEA #120 Ref 0 TAB Metolazone (Metolazone) 2.5 Mg Tab 2.5 MG PO DAILY #30 Ref 0 TAB Metoprolol Tartrate (Metoprolol Tartrate) 25 Mg Tab 12.5 MG PO BID #60 Ref 0 TAB Miconazole Nitrate Powder (Lotrimin AF Deodorant Powder) 2 % Aerp 1 APPLIC TOPICAL BID Apply to skin folds every day and evening shift for redness Multiple Vitamins W/ Minerals (One Daily-Minerals) 1 Tab 1 TAB PO DAILY Nutritional Supplement #100 Ref 0 TAB Mupirocin Topical (Bactroban Topical) 2% Oint 1 APPL TOPICAL BID Apply to trach wound Mgmt Bacterial Infection #1 Ref 0 TUBE Omeprazole (Omeprazole) 20 Mg Tab 20 MG PO DAILY #30 Ref 0 TAB Ondansetron Odt (Zofran Odt) 4 Mg Tab 4 MG SL Q6HR PRN NAUSEA OR VOMITING #30 Ref 0 TAB Oxycodone (Oxycodone) 5 Mg Cap 5 MG PO Q6H PRN PAIN #15 Ref 0 CAP (This prescription has been renewed) Prednisone (Prednisone) 20 Mg Tab 20 MG PO DAILY COPD Ref 0 TAB Pregabalin (Lyrica) 75 Mg Cap 75 MG PO DAILY #30 Ref 0 CAP Rivaroxaban (Xarelto) 10 Mg Tab 10 MG PO DAILY Blood Clot Prevention Ref 0 TAB Sennosides (Sennosides) 8.6 Mg Tab 17.2 MG PO BID Constipation Ref 0 TAB Tamsulosin (Flomax) 0.4 Mg Cap 0.4 MG PO HS Manage Prostate Problems #30 Ref 0 CAP Temazepam (Restoril) 15 Mg Cap 15 MG PO HS PRN INSOMNIA #30 Ref 0 CAP Discontinued Medications: Potassium Chloride Microencaps (Klor-Con M20) 20 Meq Tab 40 MEQ PO TID Nutritional Supplement #60 Ref 0 TAB Ras Palma MD Jan 25, 2017 12:37
[2017-01-25] MEDS ORDERED: HYDR-3516 PO (12:45)
[2017-01-25] MEDS ORDERED: PHARMACY ORDERED LAB ONE (17:45)
== END 2017-01-25 15:30 | DRG 871 ==
LOC: NEPC 15:20 → NEDA 17:47 → HCIS 21:20
PROVIDERS: ADMIT Family Medicine; ATTEND Family Medicine
DX: A41.02 Sepsis due to Methicillin resistant Staphylococcus aureus (principal); J96.21 Acute and chronic respiratory failure with hypoxia; J15.212 Pneumonia due to Methicillin resistant Staphylococcus aureus; I11.0 Hypertensive heart disease with heart failure; Z93.0 Tracheostomy status; I50.30 Unspecified diastolic (congestive) heart failure; E11.649 Type 2 diabetes mellitus with hypoglycemia without coma; Z99.81 Dependence on supplemental oxygen; J44.0 Chronic obstructive pulmonary disease with (acute) lower respiratory infection; T83.518A Infection and inflammatory reaction due to other urinary catheter, initial encounter; B37.49 Other urogenital candidiasis; Z68.43 Body mass index [BMI] 50.0-59.9, adult; J98.11 Atelectasis; I48.91 Unspecified atrial fibrillation; G62.9 Polyneuropathy, unspecified; E66.01 Morbid (severe) obesity due to excess calories; J45.909 Unspecified asthma, uncomplicated; K21.9 Gastro-esophageal reflux disease without esophagitis; E78.5 Hyperlipidemia, unspecified; M79.605 Pain in left leg; G47.33 Obstructive sleep apnea (adult) (pediatric); Y95 Nosocomial condition; Z79.01 Long term (current) use of anticoagulants; Z79.4 Long term (current) use of insulin; Z87.01 Personal history of pneumonia (recurrent); Z88.0 Allergy status to penicillin
CPT/HCPCS: 71010; 71250; 76937; 80048; 80053; 80202; 81001; 82550; 82948; 83605; 83735; 83880; 84145; 84443; 84484; 85007; 85025; 85027; 85610; 85730; 86403; 87040; 87070; 87077; 87086; 87147; 87186; 87205; 87804; 93005; 93306; 93971; 94150; 94640; 94664; 94667; 94668; 96361; 96365; 96367; 96375; A7521; J0456; J0692; J1815; J1940; J3370; J3475; J7030; J7040; J7050; J7512; J7613; J7614; J7626

== ENCOUNTER 2017-09-15 01:35 | Inpatient (IN) | payer MEDICARE, OTHER ==
[2017-09-15] VITALS (61 sets, daily range): BP systolic 59–148; BP diastolic 31–100; PULSE 87–138; RESP 13–29; TEMP 98–103.2; O2SAT 94–100
[~2017-09-15] VITALS: Ht 165.1 cm; Wt 155.2 kg
[~2017-09-15 01:35] MED LIST changes: +ACET20SO3 NEB; +ALBU0.08 NEB; -ALBU1AER5 INH; -AMLO5TAB2 PO; +ANUC25SU RECTAL; +BACT2OIN TOPICAL; +BROV15NE NEB; +BUDE0.5S NEB; +DILT31TA PO; -FLUT1INH INH; -FURO1TAB62 PO; +FURO40TA PO; +GLUCINJ IM; +HUMALOG SQ; +HYDR-3516 PO; -IPRASOL INH; +LANTUS2P SQ; +LEVA1.257 NEB; +LEVO750T33 PO; +LINE1TAB PO; +LOTR2AER2 TOPICAL; +METO2.5T PO; +OMEP20TA93 PO; +ONETAB22 PO; +OXYC1CAP PO; +POTA20TA5 PO; +PRED20 PO; +REGL10TA5 PO; +REST15CA PO; +SENN8.6T81 PO; +TAMS5CAP PO; +XANA1TAB2 PO; +XARE10TA PO; -XARE20TA PO; +ZOFR4TAB3 SL
[2017-09-15] MEDS ORDERED: METOPROLOL TARTRATE 5 MG/5 ML VIAL IV PUSH ONE (01:45)
[2017-09-15] MEDS ORDERED: DILTIAZEM HCL 25 MG/5 ML VIAL IV ONE (01:45)
[2017-09-15] MEDS ORDERED: SUCCINYLCHOLINE CHLORIDE 200 MG/10 ML VIAL ONE (01:52)
[2017-09-15] MEDS ORDERED: PROPOFOL 1000 MG/100 ML INJ 100 ML ONE (01:58)
[2017-09-15] MEDS ORDERED: VANCOMYCIN INJ 1,000 MG in SODIUM CHLOR 0.9% 250 ML INJ 250 ML IV ONE (02:00)
[2017-09-15] MEDS ORDERED: PIPERACIL-TAZO 3.375 GM PREMIX 50 ML IV ONE (02:00)
--- NOTE | 2017-09-15 02:29 | RADRPT ---
EXAM DATE/TIME: 09/15/2017 02:03 [facility] COMPARISON: CHEST SINGLE AP, January 13, 2017, 16:02. CT THORAX W/O CONTRAST, January 15, 2017, 17:13. CHEST SINGLE AP, January 25, 2017, 4:10. INDICATIONS : E-T tube placement. MEDICAL HISTORY : Congestive heart failure. Hypertension Asthma SURGICAL HISTORY : None. ENCOUNTER: Initial ACUITY: 1 day PAIN SCORE: Non-responsive. LOCATION: Bilateral chest FINDINGS: Portable AP view of the chest demonstrates endotracheal tube tip at the clavicular head level measuri ng approximately 3 cm from the makeda. Nasogastric tube courses beyond the GE junction. Cardiac silho uette is not well visualized. Lungs are underinflated and there is left lung volume loss with diffuse opacity throughout the left lung. No pneumothorax is identified. Bones demonstrate no acute finding. CONCLUSION: 1. Endotracheal tube distal tip measures approximately 3 cm from the makeda and nasogastric tube cour ses beyond the GE junction. 2. Chronic volume loss and airspace opacity within the left lung. Perry Kessler MD on September 15, 2017 at 2:25 Board Certified Radiologist. This report was verified electronically.
[2017-09-15] MEDS ORDERED: SODIUM CHLOR 0.9% 1000 ML INJ 1,000 ML IV ONE ×3 (02:30)
[2017-09-15 02:37] LABS: AUTOMATED NEUTROPHIL # 16.1 TH/MM3 (1.8-7.7); BASOPHIL # 0.1 TH/MM3 (0-0.2); BASOPHIL % 0.4 % (0.0-2.0); EOSINOPHIL % 0.2 % (0.0-4.0); HEMATOCRIT 37.3 % (35.0-46.0); HEMO FLAGS DIFF FINAL; LYMPH % 2.3 % (9.0-44.0); LYMPHOCYTE # 0.4 TH/MM3 (1.0-4.8); MEAN CELL VOLUME 85.8 FL (80.0-100.0); MEAN CORPUSCULAR HGB CONC 32.7 % (32.0-36.0); MONO % 6.1 % (0.0-8.0); PLATELET COUNT 168 TH/MM3 (150-450); RED BLOOD COUNT 4.34 MIL/MM3 (4.00-5.30); RED CELL DISTRIBUTION WIDTH 18.4 % (11.6-17.2); WHITE BLOOD COUNT 17.7 TH/MM3 (4.0-11.0)
[2017-09-15] MEDS ORDERED: NOREPINEPHRINE 4 MG/4 ML AMP ONE (02:43)
[2017-09-15] MEDS ORDERED: NOREPINEPHRINE-DEXTROSE DRIP 250 ML IV PRN (02:45)
[2017-09-15] MEDS ORDERED: TERBUTALINE INJ 1 MG/ML AMP SQ PRN (02:45)
[2017-09-15 02:50] LABS: ALT (GPT) 20 U/L (10-53); ANION GAP 6 MEQ/L (5-15); AST (GOT) 18 U/L (15-37); BICARBONATE 39.6 MEQ/L (21.0-32.0); BLOOD UREA NITROGEN 74 MG/DL (7-18); CHLORIDE 93 MEQ/L (98-107); GLOMERULAR FILTRATION RATE 15 ML/MIN (>89); SODIUM (NA) 139 MEQ/L (136-145)
[2017-09-15 02:53] LABS: BLOOD GAS BASE EXCESS 4.1 mmol/L (-2-2); BLOOD GAS CARBOXYHEMOGLOBIN 1.5 % (0-4); BLOOD GAS HCO3 30 mmol/L (22-26); BLOOD GAS METHEMOGLOBIN 0.5 % (0-2); BLOOD GAS O2 HGB SATURATION 96 % (90-100); BLOOD GAS OXYGEN CONTENT 13.1 Vol % (12.0-20.0); BLOOD GAS PCO2 59 mmHg (38-42); BLOOD GAS PO2 111 mmHG (61-120); BLOOD GAS TOTAL HGB 9.5 G/DL (12.0-16.0)
[2017-09-15 02:53] LABS: ALKALINE PHOSPHATASE 111 U/L (45-117); TOTAL BILIRUBIN ADULT 0.3 MG/DL (0.2-1.0)
[2017-09-15 02:54] LABS: CRITICAL VALUE YES; OXYGEN DEVICE VENTILATOR
[2017-09-15 02:55] LABS: DRAW SITE RT FOOT; FIO2 80 %; NUMBER OF ARTERIAL PUNCTURES 1; STAT YES
[2017-09-15] MEDS ORDERED: NALOXONE HCL 2 MG/2 ML VIAL ONE (03:04)
[2017-09-15 03:29] LABS: BLOOD, URINE MOD (NEG); COMMENT (UR) CATH-CULTURE IND; CULTURE IF INDICATED CATH CULTURE IND; GLUCOSE,URINE NEG (NEG); KETONE, URINE NEG (NEG); NITRITE,URINE NEG (NEG); SQUAMOUS EPITHELIAL CELL URINE 1 /hpf (0-5); URINE COLOR YELLOW (YELLW/STRAW)
[2017-09-15] MEDS ORDERED: CHLORHEXIDINE GLUCONATE 2 % 1 PACK (2 CLOTHS) TOP PRN (03:30)
[2017-09-15] MEDS ORDERED: SODIUM CHLORIDE 0.9% FLUSH 10 ML FLUSH IV FLUSH PRN (03:30)
[2017-09-15] MEDS ORDERED: BISACODYL 10 MG SUPP RECTAL PRN (03:30)
[2017-09-15] MEDS ORDERED: Vancomycin Consult Pharmacy 1 EA OTHER SCH (03:30)
[2017-09-15] MEDS ORDERED: VANCOMYCIN INJ 1,000 MG in SODIUM CHLOR 0.9% 250 ML INJ 250 ML IV SCH (03:30)
[2017-09-15] MEDS ORDERED: PROPOFOL 1000 MG/100 ML BTL IV PRN (03:30)
[2017-09-15] MEDS ORDERED: SENNOSIDES 8.6 MG TAB PO PRN (03:30)
[2017-09-15] MEDS ORDERED: MISCELLANEOUS NURSING INFORMATION XX SCH (03:30)
[2017-09-15] MEDS ORDERED: LACTULOSE SYRUP 20 GM/30 ML CUP PO PRN (03:30)
[2017-09-15] MEDS ORDERED: TEMAZEPAM 15 MG CAP PO PRN (03:30)
[2017-09-15] MEDS ORDERED: MAGNESIUM HYDROXIDE SUSP 30 ML CUP PO PRN (03:30)
[2017-09-15] MEDS ORDERED: ONDANSETRON HCL 4 MG/2 ML VIAL IV PUSH PRN (03:30)
--- NOTE | 2017-09-15 03:46 | PD ---
HPI Chief Complaint: Respiratory Distress Time Seen by Provider: 01:43 Travel History International Travel<30 days: No Contact w/Intl Traveler<30days: No Traveled to known affect area: No History of Present Illness HPI Patient is a morbidly obese woman who is in a snf rehabilitation today she's been diagnosed with pneumonia. She is on Levaquin by mouth for 2 days. She comes in called in by the paramedics as a rapid A. fib with minimal responsiveness. Patient arrives she is morbidly obese over 300 pounds at least with obvious periumbilical hernia very much distended patient is very somnolent. She is not arousable. She is satting only at 70 forearm room air. Her heart rate is between 120 and 167. Her blood pressure is 120/70. She will not open her eyes to voice command. She opens her eyes only when I lift her eyelids. I give her Narcan 1 mg as I review her medical record saying that she is on opioids and possibly overdosed as well as septic. Has minimal response to the Narcan she opens her eyes and and her respirations increase in her sat goes up on a nonrebreather to 93. We take her temp orally and is 103.5 All HPI limited by [facility] Past Medical History Hx Anticoagulant Therapy: Yes (XARELTO ) Asthma: Yes Atrial Fibrillation: Yes Heart Rhythm Problems: Yes Cardiovascular Problems: Yes (HTN) High Cholesterol: Yes Congestive Heart Failure: Yes Diminished Hearing: No GERD: Yes Hiatal Hernia: Yes Hypertension: Yes Respiratory: Yes Immunizations Current: No Pneumonia: Yes Tetanus Vaccination: Unknown Menopausal: Yes Past Surgical History Abdominal Surgery: Yes (HIATAL HERNIA ) Appendectomy: Yes Hysterectomy: Yes Social History Alcohol Use: No Tobacco Use: No Substance Use: No Allergies-Medications (Allergen,Severity, Reaction): Coded Allergies: penicillin G (Unverified Allergy, Severe, 05/29/17) Reported Meds & Prescriptions Reported Meds & Active Scripts Active Hydrocodone-Acetaminophen 5-325 mg Tab 1 Tab PO Q6H PRN Levofloxacin 750 Mg Tab 750 Mg PO DAILY Linezolid 600 Mg Tab 600 Mg PO Q12H Xanax (Alprazolam) 1 Mg Tab 1 Mg PO BID PRN Oxycodone (Oxycodone HCl) 5 Mg Cap 5 Mg PO Q6H PRN Potassium Chloride Microencaps 20 Meq Tab 40 Meq PO QID Levalbuterol Neb (Levalbuterol HCl) 1.25 Mg/3 Ml Neb 1.25 Mg NEB Q4HR NEB PRN Levalbuterol Neb (Levalbuterol HCl) 1.25 Mg/3 Ml Neb 1.25 Mg NEB Q6HR WHILE AWAKE NEB Furosemide 40 Mg Tab 40 Mg PO DAILY Cardizem (Diltiazem HCl) 30 Mg Tab 30 Mg PO Q6HR Reported Zofran Odt (Ondansetron Odt) 4 Mg Tab 4 Mg SL Q6HR PRN Restoril (Temazepam) 15 Mg Cap 15 Mg PO HS PRN Sennosides 8.6 Mg Tab 17.2 Mg PO BID Reglan (Metoclopramide HCl) 10 Mg Tab 10 Mg PO Q6HR PRN Prednisone 20 Mg Tab 20 Mg PO DAILY One Daily-Minerals (Multiple Vitamins W/ Minerals) 1 Tab 1 Tab PO DAILY Omeprazole 20 Mg Tab 20 Mg PO DAILY Bactroban Topical (Mupirocin) 2% Oint 1 Appl TOPICAL BID Apply to trach wound Lotrimin AF Deodorant Powder (Miconazole Nitrate Powder) 2 % Aerp 1 Applic TOPICAL BID Apply to skin folds every day and evening shift for redness Metolazone 2.5 Mg Tab 2.5 Mg PO DAILY Lantus Inj (Insulin Glargine) 100 Unit/Ml Inj 40 Units SQ Q12HR Humalog Inj (Insulin Human Lispro) 1,000 Unit/10 Ml Vial 4-16 Units SQ ACHS Sliding scale: 70-150=0 units, 151-200=4 units, 201-250=8 units, 251-300=10 units, 301-350=12 units, 351-400=16 units, 401 + Notify Glucagen Hypokit Inj Kit (Glucagon (Rdna) Inj Kit) 1 Mg Kit 1 Mg IM ONCE PRN Flomax (Tamsulosin HCl) 0.4 Mg Cap 0.4 Mg PO HS Budesonide Neb 0.5 Mg/2 Ml Neb 0.5 Mg NEB BID Brovana Neb (Arformoterol Neb) 15 Mcg/2 Ml Vial 15 Mcg NEB BID Maintenance treatment of bronchoconstriction in COPD. Anucort-Hc Supp (Hydrocortisone Acetate Supp) 25 Mg Supp 25 Mg RECTAL Q12HR Albuterol Neb (Albuterol Sulfate) 2.5 Mg/3 Ml Neb 2.5 Mg NEB Q4HR PRN While awake Xarelto (Rivaroxaban) 10 Mg Tab 10 Mg PO DAILY Acetylcysteine Liq/Neb (Acetylcysteine) 200 mg/ml Soln 4 Ml NEB Q8HR PRN Lyrica (Pregabalin) 75 Mg Cap 75 Mg PO DAILY Metoprolol Tartrate 25 Mg Tab 12.5 Mg PO BID Review of Systems ROS Limitations: Altered Mental Status, Unresponsive Physical Exam Narrative GENERAL: Lethargic with decrease resp effort and desaturating on RA and Nasal cannula oral temp 103.5 SKIN: Warm HEAD: Atraumatic. Normocephalic. no obvious trauma EYES: Pupils equal and round. No scleral icterus. No injection or drainage. opens only to manual lifting of her eyelids , until after Narcan , then opens to voice command ENT: No nasal bleeding or discharge. Mucous membranes pink and moist. NECK: Trachea midline. No JVD. old scar neck anterior appears as a healed trach scar CARDIOVASCULAR: rapid irregular rate 130-167 RESPIRATORY: poor inspiratory drive and swallow trunk obese hard to fully assess, O2 sat poor and is down to 74% on arrival GASTROINTESTINAL: Abdomen obese distended with..hernia umbilical distended. Hepatic and splenic margins not palpable. MUSCULOSKELETAL: Extremities without clubbing, cyanosis, or edema. No obvious deformities. NEUROLOGICAL: lethargic and close to obtunded PSYCHIATRIC: AMS lethargic minimally responsive even after narcan 2 mg Data Data Last Documented VS Vital Signs Date Time Temp Pulse Resp B/P (MAP) Pulse Ox O2 Delivery O2 Flow Rate FiO2 09/15/17 02:25 108 15 59/31 (40) 100 Ventilator 09/15/17 01:55 50 09/15/17 01:38 103.2 Orders Orders Metoprolol Tartrate Inj (Lopressor Inj) (09/15/17 01:45) Diltiazem Inj (Cardizem Inj) (09/15/17 01:45) Vancomycin Inj (Vancomycin Inj) (09/15/17 02:00) Piperacil-Tazo 3.375 Gm Premix (Zosyn 3. (09/15/17 02:00) Succinylcholine Inj (Quelicin Inj) (09/15/17 01:52) Chest, Single Ap (09/15/17 ) Propofol 1000 Mg/100 Ml Inj (Diprivan 10 (09/15/17 01:58) Sepsis Workup Initiated (09/15/17 ) Complete Blood Count With Diff (09/15/17 02:21) Comprehensive Metabolic Panel (09/15/17 02:21) Urinalysis - C+S If Indicated (09/15/17 02:21) Lactic Acid Sepsis Protocol (09/15/17 02:21) Blood Culture (09/15/17 02:21) Iv Access Insert/Monitor (09/15/17 02:21) Oxygen Administration (09/15/17 02:21) Oximetry (09/15/17 02:21) Blood Glucose (09/15/17 02:21) Admit Order (Ed Use Only) (09/15/17 02:26) Labs Laboratory Tests Test 09/15/17 02:04 09/15/17 02:23 Urine Color YELLOW Urine Turbidity HAZY Urine pH 5.0 Urine Specific [place] 1.011 Urine Protein NEG mg/dL Urine Glucose (UA) NEG mg/dL Urine Ketones NEG mg/dL Urine Occult Blood MOD Urine Nitrite NEG Urine Bilirubin NEG Urine Urobilinogen LESS THAN 2.0 MG/DL Urine Leukocyte Esterase LARGE Urine RBC 2 /hpf Urine WBC 16 /hpf Urine WBC Clumps FEW Urine Squamous Epithelial Cells 1 /hpf Microscopic Urinalysis Comment CATH-CULTURE IND White Blood Count 17.7 TH/MM3 Red Blood Count 4.34 MIL/MM3 Hemoglobin 12.2 GM/DL Hematocrit 37.3 % Mean Corpuscular Volume 85.8 FL Mean Corpuscular Hemoglobin 28.0 PG Mean Corpuscular Hemoglobin Concent 32.7 % Red Cell Distribution Width 18.4 % Platelet Count 168 TH/MM3 Mean Platelet Volume 8.5 FL Neutrophils (%) (Auto) 91.0 % Lymphocytes (%) (Auto) 2.3 % Monocytes (%) (Auto) 6.1 % Eosinophils (%) (Auto) 0.2 % Basophils (%) (Auto) 0.4 % Neutrophils # (Auto) 16.1 TH/MM3 Lymphocytes # (Auto) 0.4 TH/MM3 Monocytes # (Auto) 1.1 TH/MM3 Eosinophils # (Auto) 0.0 TH/MM3 Basophils # (Auto) 0.1 TH/MM3 CBC Comment DIFF FINAL Differential Comment Blood Urea Nitrogen 74 MG/DL Creatinine 3.05 MG/DL Random Glucose 123 MG/DL Total Protein 6.3 GM/DL Albumin 2.5 GM/DL Calcium Level 8.4 MG/DL Alkaline Phosphatase 111 U/L Aspartate Amino Transf (AST/SGOT) 18 U/L Alanine Aminotransferase (ALT/SGPT) 20 U/L Total Bilirubin 0.3 MG/DL Sodium Level 139 MEQ/L Potassium Level 4.0 MEQ/L Chloride Level 93 MEQ/L Carbon Dioxide Level 39.6 MEQ/L Anion Gap 6 MEQ/L Estimat Glomerular Filtration Rate 15 ML/MIN Lactic Acid Level 1.6 mmol/L Troponin I LESS THAN 0.02 NG/ML [facility] Medical Decision Making Medical Screen Exam Complete: Yes Emergency Medical Condition: Yes Differential Diagnosis Opiate overdose versus sepsis versus a combination of opioid overdose and sepsis patient is febrile to 103.5 that is orally Narrative Course Patient comes in altered mentally septic febrile minimally responsive opioid overdose I give her Narcan I intubate her I give her vancomycin Zosyn I put her on 2 L 3 L of normal saline and I put her on Levophed and admit her to ICU Critical Care Narrative Critical care treatment : I evaluate her mental status she is somnolent possibly secondary to sepsis as well as opioid . I immediately evaluated her airway . I feel she is not protecting airway . because she is minimally responsive even after 2 mg of Narcan. I intubated her with direct visualization .I only give etomidate 20mg and I am able to pass the ET tube without complications. 8.0 tube.. Vent set fio2 of 100% to start. Then then focus on systemic sepsis , 2 L of NS to bring her pressure up . Vent sedation I put her on Propofol 5mcg/kg/min and titrate as needed I give her Vanco and Zosyn for her sepsis. I reevaluated her blood pressure I reevaluated my ET tube. I put norepinephrine at 2 mcg/min minute to help her pressure conteract the peripheral effects of propofol . I called Dr. Funes to admit her to ICU 120 minutes of critical care time Procedures Procedure Narrative RSI intubation in ED with etomidate 20 mg and ET tube 8.0 without complication . direct visualization of vocal chords and pass tube into tracheal area without complication, Propofol used for ventilator sedation Diagnosis Primary Impression: Sepsis Qualified Codes: A41.9 - Sepsis, unspecified organism Additional Impression: Respiratory failure, acute Qualified Codes: J96.01 - Acute respiratory failure with hypoxia Admitting Information Admitting Physician Requests: Admit (ICU) Chicho Jensen MD Sep 15, 2017 03:46
[2017-09-15] MEDS: AZITHROMYCIN INJ 500 MG in SODIUM CHLOR 0.9% 250 ML INJ 250 ML IV SCH (04:00)
[2017-09-15] MEDS: CHLORHEXIDINE GLUCONATE 2 % 1 PACK (2 CLOTHS) TOP SCH (04:00)
[2017-09-15] MEDS: RESP: ALBUTEROL 2.5 MG/IPRATROPIUM 0.5 MG NEB (SCH) INH ×4 (04:31→20:37)
--- NOTE | 2017-09-15 04:31 | HHI.HP ---
HPI Service Critical Care Medicine Primary Care Physician Unknown Admission Diagnosis SEPSIS Diagnosis: Travel History International Travel<30 Days: No Contact w/Intl Traveler <30 Da: No Traveled to Known Affected Are: No History of Present Illness This is a 67-year-old unfortunate morbidly obese female who is in a long-term rehabilitation where she's been diagnosed with pneumonia 2 days ago and started treating with Levaquin by mouth. She comes in called in by the paramedics as a rapid A. fib with minimal responsiveness. On arrival to emergency department with very somnolent. She was not arousable, her saturation was only at 70 on a room air. Her heart rate is between 120 and 167. Her blood pressure is 120/70. She would not open her eyes to voice command. She was given Narcan by ED staff with some prominent in alertness however still remained somnolent shortly after. She was unable to protect her airways and was intubated by an ED attending for an airway protection. She was also febrile with temperature 103.5 Review of Systems ROS Able to obtain patient is sedated and intubated Past Family Social History Allergies: Coded Allergies: penicillin G (Unverified Allergy, Severe, 05/29/17) *MDRO Multi-Drug Resistant Organism (Verified Adverse Reaction, Unknown, ) MRSA (sputum)-01/20/17 Past Medical History Chronic asthma home oxygen Atrial fibrillation Hyperlipidemia Hypertension excellent diabetes mellitus GERD Morbid obesity BMI 55 Past Surgical History Appendectomy Hernia surgery Tracheostomy placement Reported Medications Reported Meds & Active Scripts Active Hydrocodone-Acetaminophen 5-325 mg Tab 1 Tab PO Q6H PRN Levofloxacin 750 Mg Tab 750 Mg PO DAILY Linezolid 600 Mg Tab 600 Mg PO Q12H Xanax (Alprazolam) 1 Mg Tab 1 Mg PO BID PRN Oxycodone (Oxycodone HCl) 5 Mg Cap 5 Mg PO Q6H PRN Potassium Chloride Microencaps 20 Meq Tab 40 Meq PO QID Levalbuterol Neb (Levalbuterol HCl) 1.25 Mg/3 Ml Neb 1.25 Mg NEB Q4HR NEB PRN Levalbuterol Neb (Levalbuterol HCl) 1.25 Mg/3 Ml Neb 1.25 Mg NEB Q6HR WHILE AWAKE NEB Furosemide 40 Mg Tab 40 Mg PO DAILY Cardizem (Diltiazem HCl) 30 Mg Tab 30 Mg PO Q6HR Reported Zofran Odt (Ondansetron Odt) 4 Mg Tab 4 Mg SL Q6HR PRN Restoril (Temazepam) 15 Mg Cap 15 Mg PO HS PRN Sennosides 8.6 Mg Tab 17.2 Mg PO BID Reglan (Metoclopramide HCl) 10 Mg Tab 10 Mg PO Q6HR PRN Prednisone 20 Mg Tab 20 Mg PO DAILY One Daily-Minerals (Multiple Vitamins W/ Minerals) 1 Tab 1 Tab PO DAILY Omeprazole 20 Mg Tab 20 Mg PO DAILY Bactroban Topical (Mupirocin) 2% Oint 1 Appl TOPICAL BID Apply to trach wound Lotrimin AF Deodorant Powder (Miconazole Nitrate Powder) 2 % Aerp 1 Applic TOPICAL BID Apply to skin folds every day and evening shift for redness Metolazone 2.5 Mg Tab 2.5 Mg PO DAILY Lantus Inj (Insulin Glargine) 100 Unit/Ml Inj 40 Units SQ Q12HR Humalog Inj (Insulin Human Lispro) 1,000 Unit/10 Ml Vial 4-16 Units SQ ACHS Sliding scale: 70-150=0 units, 151-200=4 units, 201-250=8 units, 251-300=10 units, 301-350=12 units, 351-400=16 units, 401 + Notify Glucagen Hypokit Inj Kit (Glucagon (Rdna) Inj Kit) 1 Mg Kit 1 Mg IM ONCE PRN Flomax (Tamsulosin HCl) 0.4 Mg Cap 0.4 Mg PO HS Budesonide Neb 0.5 Mg/2 Ml Neb 0.5 Mg NEB BID Brovana Neb (Arformoterol Neb) 15 Mcg/2 Ml Vial 15 Mcg NEB BID Maintenance treatment of bronchoconstriction in COPD. Anucort-Hc Supp (Hydrocortisone Acetate Supp) 25 Mg Supp 25 Mg RECTAL Q12HR Albuterol Neb (Albuterol Sulfate) 2.5 Mg/3 Ml Neb 2.5 Mg NEB Q4HR PRN While awake Xarelto (Rivaroxaban) 10 Mg Tab 10 Mg PO DAILY Acetylcysteine Liq/Neb (Acetylcysteine) 200 mg/ml Soln 4 Ml NEB Q8HR PRN Lyrica (Pregabalin) 75 Mg Cap 75 Mg PO DAILY Metoprolol Tartrate 25 Mg Tab 12.5 Mg PO BID Active Ordered Medications Current Medications Medications (Trade) Dose Ordered Sig/Mirta Route PRN Reason Start Time Stop Time Status Last Admin Dose Admin Norepinephrine Bitartrate 250 ml @ 7.5 mls/hr TITRATE PRN IV Blood pressure management 09/15/17 02:45 09/15/17 03:13 Terbutaline Sulfate (Brethine Inj) 1 mg UNSCH PRN SQ For Extravasation 09/15/17 02:45 Alprazolam (Xanax) 1 mg BID PRN PO ANXIETY 09/15/17 03:30 Diltiazem HCl (Cardizem) 30 mg Q6HR PO 09/15/17 06:00 Metoprolol Tartrate (Lopressor) 12.5 mg BID PO 09/15/17 09:00 Pregabalin (Lyrica) 75 mg DAILY PO 09/15/17 09:00 Rivaroxaban (Xarelto) 10 mg DAILY PO 09/15/17 09:00 UNV Tamsulosin HCl (Flomax) 0.4 mg HS PO 09/15/17 21:00 Temazepam (Restoril) 15 mg HS PRN PO INSOMNIA 09/15/17 03:30 Sodium Chloride 1,000 ml @ 184 mls/hr Q5H27M IV 09/15/17 03:25 Sodium Chloride (NS Flush) 2 ml UNSCH PRN IV FLUSH FLUSH AFTER USING IV ACCESS 09/15/17 03:30 Sodium Chloride (NS Flush) 2 ml BID IV FLUSH 09/15/17 09:00 Acetaminophen (Tylenol) 650 mg Q6H PRN PO PAIN 1-10 AND/OR FEVER >101F 09/15/17 03:30 Famotidine (Pepcid Inj) 10 mg Q12HR IV PUSH 09/15/17 09:00 Midazolam HCl (Versed Inj) 2 mg Q1H PRN IV PUSH SEDATION 09/15/17 03:30 Artificial Tears (Tears Naturale Opth Soln) 1 drop TID EACH EYE 09/15/17 09:00 Ondansetron HCl (Zofran Inj) 4 mg Q6H PRN IV PUSH NAUSEA OR VOMITING 09/15/17 03:30 Albuterol/ Ipratropium (Duoneb Neb) 1 ampule Q6HR NEB INH 09/15/17 04:00 Albuterol/ Ipratropium (Duoneb Neb) 1 ampule Q2HR NEB PRN INH WHEEZING 09/15/17 03:30 Heparin Sodium (Porcine) (Heparin Inj) 5,000 units Q8H SQ 09/15/17 06:00 UNV Miscellaneous Information 1 Q361D XX 09/15/17 03:30 Chlorhexidine Gluconate (Chlorhexidine 2% Cloth) 3 pack Taper DAILY@04 TOP 09/15/17 04:00 09/11/18 03:59 Chlorhexidine Gluconate (Chlorhexidine 2% Cloth) 3 pack UNSCH PRN TOP HYGIENIC CARE 09/15/17 03:30 Senna/Docusate Sodium (Zelda-Colace) 1 tab BID PO 09/15/17 09:00 Magnesium Hydroxide (Milk Of Magnesia Liq) 30 ml Q12H PRN PO Mild constipation 09/15/17 03:30 Sennosides (Senokot) 17.2 mg Q12H PRN PO Moderate constipation 09/15/17 03:30 Bisacodyl (Dulcolax Supp) 10 mg DAILY PRN RECTAL SEVERE CONSITIPATION 09/15/17 03:30 Lactulose (Lactulose Liq) 30 ml DAILY PRN PO SEVERE CONSITIPATION 09/15/17 03:30 Azithromycin 500 mg/Sodium Chloride 250 ml @ 250 mls/hr Q24H IV 09/15/17 04:00 Aztreonam 1000 mg/ Sodium Chloride 100 ml @ 200 mls/hr Q8H IV 09/15/17 06:00 Pharmacy Profile Note 0 ml @ 0 mls/hr UNSCH OTHER 09/15/17 03:30 Methylprednisolone Sodium Succinate (SoluMEDROL INJ) 40 mg Q6H IV PUSH 09/15/17 04:00 Propofol (Diprivan 1000 Mg/100ml Inj) 5 mg TITRATE PRN IV AGITATION 09/15/17 03:30 Family History Father had heart disease, diabetes, emphysema Mother had mental health issues Social History [facility] resident for the past 2 weeks No alcohol or tobacco use Physical Exam Vital Signs Vital Signs Date Time Temp Pulse Resp B/P (MAP) Pulse Ox O2 Delivery O2 Flow Rate FiO2 09/15/17 03:13 112 59/31 09/15/17 02:03 122 21 131/100 (110) 98 Ventilator 09/15/17 01:55 100 50 09/15/17 01:54 80 09/15/17 01:53 123 27 98/53 (68) 97 Non-Rebreather 09/15/17 01:38 103.2 138 29 125/58 (80) 97 Physical Exam GENERAL: Morbidly obese female sedated and intubated SKIN: Warm and dry. HEAD: Normocephalic. EYES: No scleral icterus. No injection or drainage. NECK: Supple, trachea midline. No JVD or lymphadenopathy. CARDIOVASCULAR: Regular rate and rhythm without murmurs, gallops, or rubs. RESPIRATORY: Breath sounds equal bilaterally. No accessory muscle use. GASTROINTESTINAL: Abdomen soft, non-tender, nondistended. Morbidly obese difficult to exam MUSCULOSKELETAL: No cyanosis, or edema. BACK: Nontender without obvious deformity. NEURO EXAM: GCS: M 6Vt E4 Mental Status: The patient is sedated and intubated Cranial Nerves: Pupils are round, reactive to light. Reflexes: Biceps, patellar, and Achilles are 2/4 bilaterally. No clonus. Laboratory Laboratory Tests Test 09/15/17 02:04 09/15/17 02:23 09/15/17 02:35 Urine Color YELLOW Urine Turbidity HAZY Urine pH 5.0 Urine Specific [place] 1.011 Urine Protein NEG Urine Glucose (UA) NEG Urine Ketones NEG Urine Occult Blood MOD Urine Nitrite NEG Urine Bilirubin NEG Urine Urobilinogen LESS THAN 2.0 Urine Leukocyte Esterase LARGE Urine RBC 2 Urine WBC 16 Urine WBC Clumps FEW Urine Squamous Epithelial Cells 1 Microscopic Urinalysis Comment CATH-CULTURE IND White Blood Count 17.7 Red Blood Count 4.34 Hemoglobin 12.2 Hematocrit 37.3 Mean Corpuscular Volume 85.8 Mean Corpuscular Hemoglobin 28.0 Mean Corpuscular Hemoglobin Concent 32.7 Red Cell Distribution Width 18.4 Platelet Count 168 Mean Platelet Volume 8.5 Neutrophils (%) (Auto) 91.0 Lymphocytes (%) (Auto) 2.3 Monocytes (%) (Auto) 6.1 Eosinophils (%) (Auto) 0.2 Basophils (%) (Auto) 0.4 Neutrophils # (Auto) 16.1 Lymphocytes # (Auto) 0.4 Monocytes # (Auto) 1.1 Eosinophils # (Auto) 0.0 Basophils # (Auto) 0.1 CBC Comment DIFF FINAL Differential Comment Blood Urea Nitrogen 74 Creatinine 3.05 Random Glucose 123 Total Protein 6.3 Albumin 2.5 Calcium Level 8.4 Alkaline Phosphatase 111 Aspartate Amino Transf (AST/SGOT) 18 Alanine Aminotransferase (ALT/SGPT) 20 Total Bilirubin 0.3 Sodium Level 139 Potassium Level 4.0 Chloride Level 93 Carbon Dioxide Level 39.6 Anion Gap 6 Estimat Glomerular Filtration Rate 15 Lactic Acid Level 1.6 Troponin I LESS THAN 0.02 Blood Gas Puncture Site RT FOOT Blood Gas Patient Temperature 37.0 Blood Gas HCO3 30 Blood Gas Base Excess 4.1 Blood Gas Oxygen Saturation 96 Arterial Blood pH 7.32 Arterial Blood Partial Pressure CO2 59 Arterial Blood Partial Pressure O2 111 Arterial Blood Oxygen Content 13.1 Arterial Blood Carboxyhemoglobin 1.5 Arterial Blood Methemoglobin 0.5 Blood Gas Hemoglobin 9.5 Oxygen Delivery Device VENTILATOR Blood Gas Ventilator Setting Blood Gas Inspired Oxygen 80 Date/Time Source Procedure Growth Status 09/15/17 02:23 Blood Peripheral Aerobic Blood Culture Pending Received 09/15/17 02:23 Blood Peripheral Anaerobic Blood Culture Pending Received 09/15/17 02:04 Urine Clean Catch Urine Culture Pending Received Result Diagram: 09/15/17 0223 09/15/17 0223 Imaging Last 24 hours Impressions Chest X-Ray 09/15/17 0000 Signed Impressions: Service Date/Time: Friday, September 15, 2017 02:03 - CONCLUSION: 1. Endotracheal tube distal tip measures approximately 3 cm from the m[place]a and nasogastric tube courses beyond the GE junction. 2. Chronic volume loss and airspace opacity within the left lung. MD Shelly Aleman VTE Risk Assessment Shelly VTE Risk Assessment: Mod/High Risk (score >= 2) Caprini Risk Assessment Model Point Value = 1 Point Value = 2 Point Value = 3 Point Value = 5 Age 41-60 Minor surgery BMI > 25 kg/m2 Swollen legs Varicose veins or History of unexplained or recurrent spontaneous Oral contraceptives or hormone replacement Sepsis (< 1 month) Serious lung disease, including pneumonia (< 1 month) Abnormal pulmonary function Acute myocardial infarction Congestive heart failure (< 1 month) History of inflammatory bowel disease Medical patient at bed rest Age 61-74 Arthroscopic surgery Major open surgery (> 45 min) Laparoscopic surgery (> 45 min) Malignancy Confined to bed (> 72 hours) Immobilizing plaster cast Central venous access Age >= 75 History of VTE Family history of VTE Factor V Leiden Prothrombin [id number] Lupus anticoagulant Anticardiolipin antibodies Elevated serum homocysteine Heparin-induced thrombocytopenia Other congenital or acquired thrombophilia Stroke (< 1 month) Elective arthroplasty Hip, pelvis, or leg fracture Acute spinal cord injury (< 1 month) Prophylaxis Regimen Total Risk Factor Score Risk Level Prophylaxis Regimen 0-1 Low Early ambulation 2 Moderate Order ONE of the following: *Sequential Compression Device (SCD) *Heparin 5000 units SQ BID 3-4 Higher Order ONE of the following medications: *Heparin 5000 units SQ TID *Enoxaparin/Lovenox 40 mg SQ daily (WT < 150 kg, CrCl > 30 mL/min) *Enoxaparin/Lovenox 30 mg SQ daily (WT < 150 kg, CrCl > 10-29 mL/min) *Enoxaparin/Lovenox 30 mg SQ BID (WT < 150 kg, CrCl > 30 mL/min) AND/OR *Sequential Compression Device (SCD) 5 or more Highest Order ONE of the following medications: *Heparin 5000 units SQ TID (Preferred with Epidurals) *Enoxaparin/Lovenox 40 mg SQ daily (WT < 150 kg, CrCl > 30 mL/min) *Enoxaparin/Lovenox 30 mg SQ daily (WT < 150 kg, CrCl > 10-29 mL/min) *Enoxaparin/Lovenox 30 mg SQ BID (WT < 150 kg, CrCl > 30 mL/min) AND *Sequential Compression Device (SCD) Assessment and Plan Assessment and Plan Respiratory failure - Intubated in the emergency department mostly for altered mental status with low GCS and hypoxemia - Fever 103 - Cover for hospital-acquired pneumonia - Follow-up cultures and de-escalate per sensitivity - DC antibiotics if blood cultures negative Altered mental status - Significantly improved after intubation - Patient is a arousable following commands - Possible narcotic overdose since the patient is on chronic pain meds - SIRS Atrial fibrillation - Continue diltiazem and metoprolol if blood pressure tolerates - Xarelto Hypertension - Continue metoprolol - Continue diazepam Diabetes mellitus - Glucerna tube feeds - Insulin sliding scale - Resume Lantus insulin and when to present the goal GERD - IV Pepcid DVT GI prophylaxis - Teds SCDs - Subcutaneous heparin - IV Pepcid Critical Care: The total critical care time was 35 minutes. Time to perform other separately billable procedures was not included in the critical care time. Justo Gilmore MD Sep 15, 2017 4:31 am
[2017-09-15] MEDS: SODIUM CHLOR 0.9% 1000 ML INJ 1,000 ML IV SCH ×4 (04:57→22:43)
[2017-09-15] MEDS: methylPREDNISolone SOD SUCC 40 MG/1 ML VIAL IV PUSH SCH ×4 (04:58→21:12)
[2017-09-15] MEDS: DILTIAZEM HCL 30 MG TAB PO SCH ×3 (04:58→17:38)
[2017-09-15] MEDS ORDERED: VANCOMYCIN 1,500 MG/NS 500 ML IV ONE ×2 (05:00)
[2017-09-15] MEDS: AZTREONAM INJ 1,000 MG in SODIUM CHLORIDE 0.9% INJ 100 ML IV SCH ×3 (06:00→21:12)
[2017-09-15] MEDS ORDERED: HEPARIN SODIUM - SQ 10,000 UNITS/ML VIAL SQ SCH (06:00)
[2017-09-15] MEDS: ACETAMINOPHEN 325 MG TAB PO PRN (06:08)
[2017-09-15] MEDS: METOPROLOL TARTRATE 25 MG TAB PO SCH ×2 (09:00→21:11)
[2017-09-15] MEDS: PREGABALIN 75 MG CAP PO SCH (09:32)
[2017-09-15] MEDS: DOCUSATE SODIUM 50 MG/SENNA 8.6 MG TAB PO SCH ×2 (09:32→21:12)
[2017-09-15] MEDS: FAMOTIDINE 20 MG/2 ML VIAL IV PUSH SCH ×2 (09:32→21:12)
[2017-09-15] MEDS: RIVAROXABAN 10 MG TAB PO SCH (09:32)
[2017-09-15] MEDS: SODIUM CHLORIDE 0.9% FLUSH 10 ML FLUSH IV FLUSH SCH ×2 (09:33→21:13)
[2017-09-15] MEDS: ARTIFICIAL TEARS OPTH SOLN 15 ML BTL EACH EYE SCH ×3 (13:00→17:39)
[2017-09-15] MEDS: MIDAZOLAM HCL 2 MG/2 ML VIAL IV PUSH PRN ×2 (16:55→21:38)
[2017-09-15] MEDS ORDERED: GLUCAGON 1 MG/ML VIAL IM/SQ PRN (18:00)
[2017-09-15] MEDS: INSULIN ASPART SUPPLEMENTAL SCALE SQ SCH (18:00)
[2017-09-15] MEDS ORDERED: DEXTROSE 50% IN WATER 50 ML VIAL(D50) IV PRN (18:00)
[2017-09-15] MEDS: TAMSULOSIN HCL 0.4 MG CAP PO SCH (21:00)
[2017-09-15] MEDS: ALPRAZolam 1 MG TAB PO PRN (21:38)
[2017-09-16] VITALS (39 sets, daily range): BP systolic 118–153; BP diastolic 60–86; PULSE 88–121; RESP 9–24; TEMP 97.5–98.2; O2SAT 95–99
[2017-09-16] MEDS: DILTIAZEM HCL 30 MG TAB PO SCH ×4 (00:40→16:24)
[2017-09-16] MEDS: MIDAZOLAM HCL 2 MG/2 ML VIAL IV PUSH PRN ×2 (00:43→04:45)
[2017-09-16] MEDS: RESP: ALBUTEROL 2.5 MG/IPRATROPIUM 0.5 MG NEB (SCH) INH ×4 (03:54→20:24)
[2017-09-16] MEDS: CHLORHEXIDINE GLUCONATE 2 % 1 PACK (2 CLOTHS) TOP SCH (04:00)
[2017-09-16] MEDS: AZITHROMYCIN INJ 500 MG in SODIUM CHLOR 0.9% 250 ML INJ 250 ML IV SCH (04:00)
[2017-09-16] MEDS: SODIUM CHLOR 0.9% 1000 ML INJ 1,000 ML IV SCH ×3 (04:46→12:07)
[2017-09-16] MEDS: methylPREDNISolone SOD SUCC 40 MG/1 ML VIAL IV PUSH SCH ×4 (04:48→20:01)
[2017-09-16 04:50] LABS: HEMATOCRIT 35.6 % (35.0-46.0); LYMPH % 3.6 % (9.0-44.0); LYMPHOCYTE # 0.4 TH/MM3 (1.0-4.8); MEAN CELL VOLUME 84.5 FL (80.0-100.0); MEAN CORPUSCULAR HGB CONC 33.1 % (32.0-36.0); MONO % 1.7 % (0.0-8.0); NEUT % 94.7 % (16.0-70.0); PLATELET COUNT 146 TH/MM3 (150-450); RED BLOOD COUNT 4.21 MIL/MM3 (4.00-5.30); RED CELL DISTRIBUTION WIDTH 17.8 % (11.6-17.2); WHITE BLOOD COUNT 10.5 TH/MM3 (4.0-11.0)
[2017-09-16 04:54] LABS: HEMO FLAGS AUTO DIFF
[2017-09-16 04:57] LABS: INTERNATIONAL NORMALIZED RATIO 1.1 RATIO; PROTHROMBIN TIME - PATIENT 11.6 SEC (9.8-11.6)
[2017-09-16 05:02] LABS: ANION GAP 10 MEQ/L (5-15); AST (GOT) 10 U/L (15-37); BICARBONATE 29.5 MEQ/L (21.0-32.0); BLOOD UREA NITROGEN 67 MG/DL (7-18); CHLORIDE 103 MEQ/L (98-107); GLOMERULAR FILTRATION RATE 19 ML/MIN (>89); MAGNESIUM 1.9 MG/DL (1.5-2.5); POTASSIUM 3.4 MEQ/L (3.5-5.1); SODIUM (NA) 142 MEQ/L (136-145)
[2017-09-16 05:04] LABS: ALKALINE PHOSPHATASE 98 U/L (45-117); ALT (GPT) 21 U/L (10-53); TOTAL BILIRUBIN ADULT 0.3 MG/DL (0.2-1.0)
--- NOTE | 2017-09-16 05:30 | RADRPT ---
EXAM DATE/TIME: 09/16/2017 04:28 [place] COMPARISON: CHEST SINGLE AP, September 15, 2017, 2:03. INDICATIONS : Shortness of breath, possible pulmonary disease. MEDICAL HISTORY : Congestive heart failure. Hypertension Asthma SURGICAL HISTORY : None. ENCOUNTER: Subsequent ACUITY: 2 days PAIN SCORE: Non-responsive. LOCATION: Bilateral chest FINDINGS: Portable AP view of the chest demonstrates cardiac silhouette size at the upper limits for normal. ET T, and NG tube remain present. There is a stable left lung volume loss with left mid and lower lung z one opacity. There is atelectasis at the right base. No pneumothorax is visualized. CONCLUSION: Stable chest x-ray with left lung volume loss and persistent opacity in the left mid and lower lung z one. Perry Kessler MD on September 16, 2017 at 5:27 Board Certified Radiologist. This report was verified electronically.
[2017-09-16 05:34] LABS: SCAN/DIFF AUTO DIFF CONFIRMED
[2017-09-16] MEDS: INSULIN ASPART SUPPLEMENTAL SCALE SQ SCH ×4 (06:00→16:25)
[2017-09-16] MEDS: AZTREONAM INJ 1,000 MG in SODIUM CHLORIDE 0.9% INJ 100 ML IV SCH (06:55)
[2017-09-16] MEDS: ACETAMINOPHEN 325 MG TAB PO PRN (08:22)
[2017-09-16] MEDS: ALPRAZolam 1 MG TAB PO PRN ×2 (08:22→21:14)
[2017-09-16] MEDS: DOCUSATE SODIUM 50 MG/SENNA 8.6 MG TAB PO SCH ×2 (08:22→20:01)
[2017-09-16] MEDS: METOPROLOL TARTRATE 25 MG TAB PO SCH ×2 (08:23→20:01)
[2017-09-16] MEDS: RIVAROXABAN 10 MG TAB PO SCH (08:23)
[2017-09-16] MEDS: FAMOTIDINE 20 MG/2 ML VIAL IV PUSH SCH ×2 (08:24→20:02)
[2017-09-16] MEDS: PREGABALIN 75 MG CAP PO SCH (08:24)
[2017-09-16] MEDS: ARTIFICIAL TEARS OPTH SOLN 15 ML BTL EACH EYE SCH ×3 (08:25→16:26)
[2017-09-16] MEDS: SODIUM CHLORIDE 0.9% FLUSH 10 ML FLUSH IV FLUSH SCH ×2 (08:25→20:02)
[2017-09-16] MEDS: AZTREONAM 2,000 MG/NS 100 ML IV SCH ×4 (14:21→21:14)
--- NOTE | 2017-09-16 16:53 | HHI.CCPN ---
Subjective Remarks/Hospital Course 09/15: This is a 67-year-old unfortunate morbidly obese female who is in a senior care rehabilitation where she's been diagnosed with pneumonia 2 days ago and started treating with Levaquin by mouth. She comes in called in by the paramedics as a rapid A. fib with minimal responsiveness. On arrival to emergency department with very somnolent. She was not arousable, her saturation was only at 70 on a room air. Her heart rate is between 120 and 167. Her blood pressure is 120/70. She would not open her eyes to voice command. She was given Narcan by ED staff with some prominent in alertness however still remained somnolent shortly after. She was unable to protect her airways and was intubated by an ED attending for an airway protection. She was also febrile with temperature 103.5 09/16: Remains sedated, orally intubated on mechanical ventilation. Arouses off sedation. Tolerated C Pap trial today however no air leak on deflating cuff hence left intubated. Objective Vital Signs Date Time Temp Pulse Resp B/P (MAP) Pulse Ox O2 Delivery O2 Flow Rate FiO2 09/16/17 15:33 97 40 09/16/17 10:00 97.3 100 12 126/61 (82) 09/15/17 04:32 Ventilator Intake and Output 09/16/17 09/16/17 09/17/17 08:00 16:00 00:00 Intake Total 1818 ml Output Total 1000 ml Balance 818 ml Result Diagram: 09/16/17 0416 09/16/17 0416 Other Results Microbiology Date/Time Source Procedure Growth Status 09/15/17 04:31 Urine Catheterized Urine Legionella Antigen - Final PRESUMPTIVE NEGATIVE FOR LEGIONELLA P... Complete 09/15/17 04:31 Urine Catheterized Urine Streptococcus pneumoniae Antigen (M - Final PRESUMPTIVE NEGATIVE FOR STREPTOCOCCU... Complete Imaging Last 24 hours Impressions Chest X-Ray 09/15/17 0000 Signed Impressions: Service Date/Time: Friday, September 15, 2017 02:03 - CONCLUSION: 1. Endotracheal tube distal tip measures approximately 3 cm from the makeda and nasogastric tube courses beyond the GE junction. 2. Chronic volume loss and airspace opacity within the left lung. Perry Kessler MD Objective Remarks GENERAL: Morbidly obese female sedated and intubated SKIN: Warm and dry. HEAD: Normocephalic. EYES: No scleral icterus. No injection or drainage. NECK: Supple, trachea midline. No JVD or lymphadenopathy. CARDIOVASCULAR: Regular rate and rhythm without murmurs, gallops, or rubs. RESPIRATORY: Breath sounds equal bilaterally. No accessory muscle use. GASTROINTESTINAL: Abdomen soft, non-tender, nondistended. Morbidly obese difficult to exam MUSCULOSKELETAL: No cyanosis, or edema. BACK: Nontender without obvious deformity. NEURO EXAM: GCS: Sedated, arousable, following commands, orally intubated on mechanical ventilation, most both upper extremities. A/P Assessment and Plan Acute Respiratory failure - Intubated in the emergency department mostly for altered mental status with low GCS and hypoxemia - Fever 103 - Cover for hospital-acquired pneumonia - Follow-up cultures and de-escalate per sensitivity - Continue mechanical ventilation, vent bundle, bronchodilators. Tolerated C Pap trial however no leak around cuff on deflating and hence left intubated overnight. We will attempt extubation in the morning tomorrow. Encephalopathy - Significantly improved after intubation - Patient is arousable following commands - Possible narcotic overdose since the patient is on chronic pain meds - SIRS versus sepsis Atrial fibrillation - Continue diltiazem and metoprolol if blood pressure tolerates - Xarelto Hypertension - Continue metoprolol - Continue diazepam Diabetes mellitus - Glucerna tube feeds - Insulin sliding scale - Resume Lantus insulin once tolerating tube feeds GERD - IV Pepcid DVT GI prophylaxis - Teds SCDs - Subcutaneous heparin - IV Pepcid Critical Care: The total critical care time was 35 minutes. Time to perform other separately billable procedures was not included in the critical care time. Kody Cartagena MD Sep 16, 2017 16:53
[2017-09-16] MEDS: TAMSULOSIN HCL 0.4 MG CAP PO SCH (20:01)
--- NOTE | 2017-09-16 23:07 | EKG ---
Date Performed: 09/15/2017 Time Performed: 01:36:13 PTAGE: 67 years EKG: ATRIAL FIBRILLATION WITH RAPID VENTRICULAR RESPONSE NONSPECIFIC ST & T-WAVE ABNORMALITY ABN ORMAL RHYTHM ECG PREVIOUS TRACING : 09/09/2017 15.24 Compared to prior tracing no significant change DOCTOR: Dontrell Amador Interpretating Date/Time 09/16/2017 23:07:10
[2017-09-17] VITALS (31 sets, daily range): BP systolic 80–173; BP diastolic 58–105; PULSE 77–125; RESP 9–24; TEMP 96.7–97.8; O2SAT 89–100
[2017-09-17] MEDS: CHLORHEXIDINE GLUCONATE 2 % 1 PACK (2 CLOTHS) TOP SCH (03:38)
[2017-09-17] MEDS: RESP: ALBUTEROL 2.5 MG/IPRATROPIUM 0.5 MG NEB (SCH) INH ×4 (03:54→19:26)
[2017-09-17] MEDS: AZITHROMYCIN INJ 500 MG in SODIUM CHLOR 0.9% 250 ML INJ 250 ML IV SCH (04:32)
[2017-09-17] MEDS: DILTIAZEM HCL 30 MG TAB PO SCH ×4 (05:20→18:46)
[2017-09-17] MEDS: AZTREONAM 2,000 MG/NS 100 ML IV SCH ×6 (05:20→22:30)
[2017-09-17] MEDS: INSULIN ASPART SUPPLEMENTAL SCALE SQ SCH ×4 (05:21→18:52)
[2017-09-17 05:55] LABS: AUTOMATED NEUTROPHIL # 8.6 TH/MM3 (1.8-7.7); BASOPHIL % 0.1 % (0.0-2.0); HEMATOCRIT 35.2 % (35.0-46.0); LYMPHOCYTE # 0.3 TH/MM3 (1.0-4.8); MEAN CORPUSCULAR HEMOGLOBIN 27.6 PG (27.0-34.0); MEAN CORPUSCULAR HGB CONC 32.4 % (32.0-36.0); MONO % 2.8 % (0.0-8.0); NEUT % 94.1 % (16.0-70.0); PLATELET COUNT 159 TH/MM3 (150-450); RED BLOOD COUNT 4.13 MIL/MM3 (4.00-5.30); RED CELL DISTRIBUTION WIDTH 17.7 % (11.6-17.2); WHITE BLOOD COUNT 9.2 TH/MM3 (4.0-11.0)
[2017-09-17 05:56] LABS: HEMO FLAGS AUTO DIFF
--- NOTE | 2017-09-17 06:29 | RADRPT ---
EXAM DATE/TIME: 09/17/2017 05:01 [facility] COMPARISON: CHEST SINGLE AP, September 16, 2017, 4:28. INDICATIONS : Shortness of breath, intubated patient. MEDICAL HISTORY : Congestive heart failure. Hypertension Asthma SURGICAL HISTORY : None. ENCOUNTER: Subsequent ACUITY: 3 days PAIN SCORE: Non-responsive. LOCATION: Bilateral chest FINDINGS: A single AP semierect view of the chest was obtained and again demonstrates an endotracheal tube in p lace with tip 3 cm above the makeda. The nasogastric tube remains in place as well. Hazy opacity is n oted in the left perihilar region left lung base. Mild volume loss is again noted in the left hemitho rax. There is mild hazy opacity at the right lung base as well. The heart size remains mildly promine nt. Both costophrenic angles appear mildly blunted. The bony thorax remains intact. Atherosclerotic c hanges are present in the aorta. CONCLUSION: No significant change. Persistent opacity and volume loss in the left hemithorax. Chintan Marshall MD on September 17, 2017 at 6:26 Board Certified Radiologist. This report was verified electronically.
[2017-09-17 06:43] LABS: BANDS 5 % (0-6); METAMYELOCYTES 1 % (0-1); MYELOCYTES 3 % (0-0); NEUTROPHIL # MANUAL DIFF 8.5 TH/MM3 (1.8-7.7); POLYS (SEG NEUTROPHILS) 83 % (16-70); WBC DIFF SAMPLE 100
[2017-09-17 06:44] LABS: PLATELET ESTIMATE SMEAR NORMAL (NORMAL); PLATELET MORPHOLOGY NORMAL (NORMAL); SCAN/DIFF FINAL DIFF MANUAL
[2017-09-17 08:12] LABS: ALT (GPT) 22 U/L (10-53); ANION GAP 10 MEQ/L (5-15); AST (GOT) 9 U/L (15-37); BICARBONATE 30.2 MEQ/L (21.0-32.0); BLOOD UREA NITROGEN 72 MG/DL (7-18); CHLORIDE 106 MEQ/L (98-107); GLOMERULAR FILTRATION RATE 22 ML/MIN (>89); SODIUM (NA) 146 MEQ/L (136-145)
[2017-09-17 08:15] LABS: ALKALINE PHOSPHATASE 87 U/L (45-117); TOTAL BILIRUBIN ADULT 0.2 MG/DL (0.2-1.0)
[2017-09-17] MEDS: PREGABALIN 75 MG CAP PO SCH (08:47)
[2017-09-17] MEDS: FAMOTIDINE 20 MG/2 ML VIAL IV PUSH SCH ×2 (08:47→21:20)
[2017-09-17] MEDS: RIVAROXABAN 10 MG TAB PO SCH (08:47)
[2017-09-17] MEDS: DOCUSATE SODIUM 50 MG/SENNA 8.6 MG TAB PO SCH ×2 (08:47→21:19)
[2017-09-17] MEDS: methylPREDNISolone SOD SUCC 40 MG/1 ML VIAL IV PUSH SCH ×2 (08:47→21:20)
[2017-09-17] MEDS: METOPROLOL TARTRATE 25 MG TAB PO SCH ×2 (08:47→21:19)
[2017-09-17] MEDS: SODIUM CHLORIDE 0.9% FLUSH 10 ML FLUSH IV FLUSH SCH (08:48)
[2017-09-17] MEDS: ARTIFICIAL TEARS OPTH SOLN 15 ML BTL EACH EYE SCH ×3 (09:00→18:52)
[2017-09-17] MEDS ORDERED: Vancomycin Consult Pharmacy 1 EA OTHER SCH (10:45)
--- NOTE | 2017-09-17 10:52 | HHI.CCPN ---
Subjective Remarks/Hospital Course 09/15: This is a 67-year-old unfortunate morbidly obese female who is in a snf rehabilitation where she's been diagnosed with pneumonia 2 days ago and started treating with Levaquin by mouth. She comes in called in by the paramedics as a rapid A. fib with minimal responsiveness. On arrival to emergency department with very somnolent. She was not arousable, her saturation was only at 70 on a room air. Her heart rate is between 120 and 167. Her blood pressure is 120/70. She would not open her eyes to voice command. She was given Narcan by ED staff with some prominent in alertness however still remained somnolent shortly after. She was unable to protect her airways and was intubated by an ED attending for an airway protection. She was also febrile with temperature 103.5 09/16: Remains sedated, orally intubated on mechanical ventilation. Arouses off sedation. Tolerated C Pap trial today however no air leak on deflating cuff hence left intubated. 09/17 No ecvents overnight. On CPAP with PS 10, PEP:5 and 40% FIO2. Afebrile. Objective Vital Signs Date Time Temp Pulse Resp B/P (MAP) Pulse Ox O2 Delivery O2 Flow Rate FiO2 09/17/17 09:30 96.7 93 12 125/81 (96) 98 09/17/17 08:27 40 09/15/17 04:32 Ventilator Intake and Output 09/17/17 09/17/17 09/18/17 08:00 16:00 00:00 Intake Total 1271 ml Output Total 1000 ml Balance 271 ml Result Diagram: 09/17/17 0554 09/17/17 0332 Other Results Laboratory Tests Test 09/17/17 03:32 09/17/17 05:54 Blood Urea Nitrogen 72 MG/DL Creatinine 2.22 MG/DL Random Glucose 222 MG/DL Total Protein 5.4 GM/DL Albumin 2.1 GM/DL Calcium Level 7.7 MG/DL Alkaline Phosphatase 87 U/L Aspartate Amino Transf (AST/SGOT) 9 U/L Alanine Aminotransferase (ALT/SGPT) 22 U/L Total Bilirubin 0.2 MG/DL Sodium Level 146 MEQ/L Potassium Level 3.0 MEQ/L Chloride Level 106 MEQ/L Carbon Dioxide Level 30.2 MEQ/L Anion Gap 10 MEQ/L Estimat Glomerular Filtration Rate 22 ML/MIN Random Vancomycin Level 16.5 COMMENT White Blood Count 9.2 TH/MM3 Red Blood Count 4.13 MIL/MM3 Hemoglobin 11.4 GM/DL Hematocrit 35.2 % Mean Corpuscular Volume 85.0 FL Mean Corpuscular Hemoglobin 27.6 PG Mean Corpuscular Hemoglobin Concent 32.4 % Red Cell Distribution Width 17.7 % Platelet Count 159 TH/MM3 Mean Platelet Volume 8.6 FL Neutrophils (%) (Auto) 94.1 % Lymphocytes (%) (Auto) 3.0 % Monocytes (%) (Auto) 2.8 % Eosinophils (%) (Auto) 0.0 % Basophils (%) (Auto) 0.1 % Neutrophils # (Auto) 8.6 TH/MM3 Lymphocytes # (Auto) 0.3 TH/MM3 Monocytes # (Auto) 0.3 TH/MM3 Eosinophils # (Auto) 0.0 TH/MM3 Basophils # (Auto) 0.0 TH/MM3 CBC Comment AUTO DIFF Differential Total Cells Counted 100 Neutrophils % (Manual) 83 % Band Neutrophils % 5 % Lymphocytes % 5 % Monocytes % 3 % Neutrophils # (Manual) 8.5 TH/MM3 Metamyelocytes 1 % Myelocytes 3 % Differential Comment FINAL DIFF MANUAL Platelet Estimate NORMAL Platelet Morphology Comment NORMAL Imaging Last Impressions Chest X-Ray 09/17/17 0600 Signed Impressions: Service Date/Time: Sunday, September 17, 2017 05:01 - CONCLUSION: No significant change. Persistent opacity and volume loss in the left hemithorax. Chintan Marshall MD Objective Remarks GENERAL: Morbidly obese female intubated SKIN: Warm and dry. HEAD: Normocephalic. EYES: No scleral icterus. No injection or drainage. NECK: Supple, trachea midline. No JVD or lymphadenopathy. CARDIOVASCULAR: Regular rate and rhythm without murmurs, gallops, or rubs. RESPIRATORY: Breath sounds equal bilaterally. No accessory muscle use. GASTROINTESTINAL: Abdomen soft, non-tender, nondistended. Morbidly obese difficult to exam MUSCULOSKELETAL: No cyanosis, or edema. BACK: Nontender without obvious deformity. NEURO EXAM: Intubated A/P Assessment and Plan Acute Respiratory failure - Intubated in the emergency department mostly for altered mental status with low GCS and hypoxemia - Continue with vent support keep sat >92% -Vent bundle, bronchodilators, continue with CPAP trials and possible extubation today. -Add Mucomyst Encephalopathy - Significantly improved after intubation - Patient is arousable following commands -Monitor neuro status off sedation. Atrial fibrillation Hypertension -Monitor HR and BP keep MAP>65mmHg - Continue diltiazem 30mg Q6 and metoprolol 12.5mg BID - Continue Xarelto : Monitor renal function, I/O's, electrolytes replacement as needed. Avoid nephrotoxins Renal function is improving with Cr: 2.20 from 2.5, UOP 1750ml in 24hrs GI Continue tube feeds- change tube feeds Nepro with goal rate 40ml/hr ID Coag negative staph, GPC bacteremia 09/15 Continue with abx ( Aztreonam, Azithromycin, Vanco) Monitor for signs of infections ( Fever, WBC) Recheck BC x 2 sets, check sputum cx 09/15 Strep pneumonia and Legionella urinary Ag negative Diabetes mellitus - Insulin sliding scale(medium scale) Heme: Monitor CBC GERD - IV Pepcid DVT GI prophylaxis - Teds SCDs - Subcutaneous heparin - IV Pepcid Level 3 Juma Pak MD Sep 17, 2017 10:52
[2017-09-17] MEDS: POTASSIUM CHLOR 20 MEQ PREMIX 100 ML IV SCH ×2 (11:50→13:54)
[2017-09-17] MEDS ORDERED: VANCOMYCIN INJ 2,000 MG in SODIUM CHLORID 0.9% 500 ML INJ 500 ML IV ONE (12:00)
[2017-09-17 12:23] LABS: BLOOD GAS BASE EXCESS 4.2 mmol/L (-2-2); BLOOD GAS HCO3 29 mmol/L (22-26); BLOOD GAS METHEMOGLOBIN 1.1 % (0-2); BLOOD GAS O2 HGB SATURATION 95 % (90-100); BLOOD GAS OXYGEN CONTENT 16.3 Vol % (12.0-20.0); BLOOD GAS PCO2 52 mmHg (38-42); BLOOD GAS PO2 92 mmHg (61-120); BLOOD GAS TOTAL HGB 12.2 G/DL (12.0-16.0); TEMP CORR TO 98.6
[2017-09-17 12:24] LABS: CRITICAL VALUE YES; DRAW SITE RT RADIAL; FIO2 35 %; NUMBER OF ARTERIAL PUNCTURES 1; OXYGEN DEVICE VENTILATOR; STAT NO; ULNAR PULSE PRESENT; VENT SETTINGS CPAP+5/PS+10
[2017-09-17] MEDS: RESP: ACETYLCYSTEINE 10% 30 ML NEB NEB SCH (19:26)
[2017-09-17] MEDS: TAMSULOSIN HCL 0.4 MG CAP PO SCH (21:19)
[2017-09-18] VITALS (19 sets, daily range): BP systolic 115–142; BP diastolic 63–93; PULSE 83–125; RESP 12–23; TEMP 96.2–98; O2SAT 91–100
[2017-09-18] MEDS: DILTIAZEM HCL 30 MG TAB PO SCH ×4 (00:24→18:05)
[2017-09-18] MEDS: RESP: ALBUTEROL 2.5 MG/IPRATROPIUM 0.5 MG NEB (SCH) INH ×4 (03:00→20:38)
[2017-09-18] MEDS: RESP: ACETYLCYSTEINE 10% 30 ML NEB NEB SCH ×4 (03:00→20:38)
[2017-09-18] MEDS: AZITHROMYCIN INJ 500 MG in SODIUM CHLOR 0.9% 250 ML INJ 250 ML IV SCH (04:00)
[2017-09-18] MEDS: CHLORHEXIDINE GLUCONATE 2 % 1 PACK (2 CLOTHS) TOP SCH (04:00)
[2017-09-18] MEDS: AZTREONAM 2,000 MG/NS 100 ML IV SCH ×6 (05:24→21:26)
[2017-09-18] MEDS: INSULIN ASPART SUPPLEMENTAL SCALE SQ SCH ×4 (06:30→18:05)
[2017-09-18 07:00] LABS: AUTOMATED NEUTROPHIL # 12.5 TH/MM3 (1.8-7.7); BASOPHIL % 0.2 % (0.0-2.0); EOSINOPHIL % 0.1 % (0.0-4.0); HEMATOCRIT 35.4 % (35.0-46.0); LYMPH % 2.8 % (9.0-44.0); LYMPHOCYTE # 0.4 TH/MM3 (1.0-4.8); MEAN CELL VOLUME 85.5 FL (80.0-100.0); MEAN CORPUSCULAR HEMOGLOBIN 27.4 PG (27.0-34.0); MONO % 2.9 % (0.0-8.0); PLATELET COUNT 161 TH/MM3 (150-450); RED BLOOD COUNT 4.14 MIL/MM3 (4.00-5.30); WHITE BLOOD COUNT 13.3 TH/MM3 (4.0-11.0)
[2017-09-18 07:06] LABS: HEMO FLAGS AUTO DIFF
[2017-09-18 07:32] LABS: BICARBONATE 29.9 MEQ/L (21.0-32.0); POTASSIUM 3.6 MEQ/L (3.5-5.1)
[2017-09-18 08:44] LABS: BANDS 6 % (0-6); METAMYELOCYTES 2 % (0-1); MYELOCYTES 3 % (0-0); POLYS (SEG NEUTROPHILS) 87 % (16-70); WBC DIFF SAMPLE 100
[2017-09-18 08:45] LABS: PLATELET ESTIMATE SMEAR NORMAL (NORMAL); PLATELET MORPHOLOGY NORMAL (NORMAL); SCAN/DIFF FINAL DIFF MANUAL
[2017-09-18] MEDS: RIVAROXABAN 10 MG TAB PO SCH (09:00)
[2017-09-18] MEDS: ARTIFICIAL TEARS OPTH SOLN 15 ML BTL EACH EYE SCH ×3 (09:00→18:05)
[2017-09-18] MEDS: methylPREDNISolone SOD SUCC 40 MG/1 ML VIAL IV PUSH SCH ×2 (09:01→21:26)
[2017-09-18] MEDS: METOPROLOL TARTRATE 25 MG TAB PO SCH ×2 (09:01→21:27)
[2017-09-18] MEDS: PREGABALIN 75 MG CAP PO SCH (09:01)
[2017-09-18] MEDS: FAMOTIDINE 20 MG/2 ML VIAL IV PUSH SCH ×2 (09:01→21:26)
[2017-09-18] MEDS: DOCUSATE SODIUM 50 MG/SENNA 8.6 MG TAB PO SCH ×2 (09:01→21:26)
[2017-09-18] MEDS: SODIUM CHLORIDE 0.9% FLUSH 10 ML FLUSH IV FLUSH SCH ×2 (09:04→21:27)
--- NOTE | 2017-09-18 15:03 | HHI.CCPN ---
Subjective Remarks/Hospital Course 09/15: This is a 67-year-old unfortunate morbidly obese female who is in a longterm rehabilitation where she's been diagnosed with pneumonia 2 days ago and started treating with Levaquin by mouth. She comes in called in by the paramedics as a rapid A. fib with minimal responsiveness. On arrival to emergency department with very somnolent. She was not arousable, her saturation was only at 70 on a room air. Her heart rate is between 120 and 167. Her blood pressure is 120/70. She would not open her eyes to voice command. She was given Narcan by ED staff with some prominent in alertness however still remained somnolent shortly after. She was unable to protect her airways and was intubated by an ED attending for an airway protection. She was also febrile with temperature 103.5 09/16: Remains sedated, orally intubated on mechanical ventilation. Arouses off sedation. Tolerated C Pap trial today however no air leak on deflating cuff hence left intubated. 09/17 No events overnight. On CPAP with PS 10, PEP:5 and 40% FIO2. Afebrile. 09/18: Extubated yesterday. Tolerating nasal cannula well. Tolerated by mouth diet this morning. Denies any shortness of breath. Objective Vital Signs Date Time Temp Pulse Resp B/P (MAP) Pulse Ox O2 Delivery O2 Flow Rate FiO2 09/18/17 14:00 101 09/18/17 13:00 97.6 22 123/79 (94) 92 09/18/17 07:53 Nasal Cannula 2.00 09/17/17 12:35 28 Intake and Output 09/18/17 09/18/17 09/19/17 08:00 16:00 00:00 Intake Total 1068 ml Output Total 550 ml Balance 518 ml Result Diagram: 09/18/1761909/18/17 06 Imaging Last Impressions Chest X-Ray 09/17/17 06 Signed Impressions: Service Date/Time: Sunday, September 17, 2017 05:01 - CONCLUSION: No significant change. Persistent opacity and volume loss in the left hemithorax. Chintan Marshall MD Objective Remarks GENERAL: Morbidly obese female intubated SKIN: Warm and dry. HEAD: Normocephalic. EYES: No scleral icterus. No injection or drainage. NECK: Supple, trachea midline. No JVD or lymphadenopathy. CARDIOVASCULAR: Regular rate and rhythm without murmurs, gallops, or rubs. RESPIRATORY: Breath sounds equal bilaterally. No accessory muscle use. GASTROINTESTINAL: Abdomen soft, non-tender, nondistended. Morbidly obese difficult to exam MUSCULOSKELETAL: No cyanosis, or edema. BACK: Nontender without obvious deformity. NEURO EXAM: Intubated A/P Assessment and Plan Acute Respiratory failure - Intubated in the emergency department mostly for altered mental status with low GCS and hypoxemia -Extubated to nasal cannula on 09/17, tolerating well -bronchodilators, Mucomyst Encephalopathy -Resolved now -Monitor neuro status off sedation. Atrial fibrillation Hypertension -Monitor HR and BP keep MAP>65mmHg - Continue diltiazem 30mg Q6 and metoprolol 12.5mg BID - Continue Xarelto : Monitor renal function, I/O's, electrolytes replacement as needed. Avoid nephrotoxins Renal function is improving with Cr: 2.20 from 2.5, UOP 1750ml in 24hrs GI Tolerating by mouth diet. ID Coag negative staph, GPC bacteremia 09/15 Continue with abx ( Aztreonam, Azithromycin, Vanco) Monitor for signs of infections ( Fever, WBC) Recheck BC x 2 sets, check sputum cx 09/15 Strep pneumonia and Legionella urinary Ag negative Diabetes mellitus - Insulin sliding scale(medium scale) Heme: Monitor CBC GERD - IV Pepcid DVT GI prophylaxis - Teds SCDs - Subcutaneous heparin - IV Pepcid Consult and transfer to hospitalist service for further medical management. Transfer out of ICU. Kody Cartagena MD Sep 18, 2017 15:03
[2017-09-18] MEDS: TAMSULOSIN HCL 0.4 MG CAP PO SCH (21:26)
[2017-09-19] VITALS (13 sets, daily range): BP systolic 114–144; BP diastolic 59–76; PULSE 89–110; RESP 14–22; TEMP 97.5–99; O2SAT 95–98
[2017-09-19] MEDS: INSULIN ASPART SUPPLEMENTAL SCALE SQ SCH ×4 (01:00→17:11)
[2017-09-19] MEDS: DILTIAZEM HCL 30 MG TAB PO SCH ×4 (01:00→17:09)
[2017-09-19] MEDS: ALPRAZolam 1 MG TAB PO PRN (01:00)
[2017-09-19] MEDS: AZITHROMYCIN INJ 500 MG in SODIUM CHLOR 0.9% 250 ML INJ 250 ML IV SCH (04:00)
[2017-09-19] MEDS: RESP: ACETYLCYSTEINE 10% 30 ML NEB NEB SCH ×3 (04:08→14:33)
[2017-09-19] MEDS: RESP: ALBUTEROL 2.5 MG/IPRATROPIUM 0.5 MG NEB (PRN) INH ×3 (04:08→20:45)
[2017-09-19] MEDS: AZTREONAM 2,000 MG/NS 100 ML IV SCH ×2 (06:52)
[2017-09-19] MEDS: METOPROLOL TARTRATE 25 MG TAB PO SCH ×2 (09:17→21:28)
[2017-09-19] MEDS: PREGABALIN 75 MG CAP PO SCH (09:17)
[2017-09-19] MEDS: DOCUSATE SODIUM 50 MG/SENNA 8.6 MG TAB PO SCH ×2 (09:17→21:28)
[2017-09-19] MEDS: RIVAROXABAN 10 MG TAB PO SCH (09:17)
[2017-09-19] MEDS: FAMOTIDINE 20 MG/2 ML VIAL IV PUSH SCH ×2 (09:18→21:27)
[2017-09-19] MEDS: SODIUM CHLORIDE 0.9% FLUSH 10 ML FLUSH IV FLUSH SCH ×2 (09:18→21:29)
[2017-09-19] MEDS: methylPREDNISolone SOD SUCC 40 MG/1 ML VIAL IV PUSH SCH ×2 (09:18→21:28)
[2017-09-19] MEDS: ARTIFICIAL TEARS OPTH SOLN 15 ML BTL EACH EYE SCH ×3 (09:18→17:09)
--- NOTE | 2017-09-19 10:51 | PD.CONS ---
History of Present Illness Service Infectious disease Consult Requested By Dr Beatriz Cartagena Reason for Consult Evaluate patient with MRSA pneumonia Primary Care Physician Unknown Diagnoses: History of Present Illness Patient seen and examined. Records reviewed. Patient is a morbidly obese 67-year-old female, with history of asthma, [facility] brought into the hospital for evaluation of decreased level of consciousness, as well as rapid atrial fibrillation. The A. fib has improved. She was given Narcan in the ED and some improvement in her mental status, but she became somnolent again. She ended up getting intubated by the ED for airway protection. Her chest x-ray has shown some hazy opacity on the left base. Patient was started on some antibiotics for pneumonia, and her sputum culture is now reported as growing MRSA. Patient was successfully extubated yesterday. She is on nasal O2. She denies shortness of breath currently. Patient states that she is coughing up some phlegm at times but not very much. She denies any chest pain. Patient has not been febrile. Her WBC is mildly elevated at 13,000. Infectious disease consultation has requested to evaluate the patient. Review of Systems Constitutional: DENIES: Fever, Chills Eyes: DENIES: Eye pain Ears, nose, mouth, throat: DENIES: Nasal discharge, Oral lesions, Throat pain, Ear Pain Respiratory: COMPLAINS OF: Cough, Wheezing, Sputum production, Shortness of breath Cardiovascular: COMPLAINS OF: Lower Extremity Edema, DENIES: Chest pain, Palpitations Gastrointestinal: DENIES: Abdominal pain, Diarrhea, Nausea, Vomiting Genitourinary: DENIES: Urinary frequency, Dysuria Musculoskeletal: DENIES: Joint pain Integumentary: DENIES: Rash Neurologic: DENIES: Localized weakness Psychiatric: DENIES: Hallucinations Past Family Social History Allergies: Coded Allergies: penicillin G (Unverified Allergy, Severe, 05/29/17) Past Medical History Chronic asthma home oxygen Atrial fibrillation Hyperlipidemia Hypertension excellent diabetes mellitus GERD Morbid obesity BMI 55 Past Surgical History Appendectomy Hernia surgery Tracheostomy placement Reported Medications I attest that I obtained, updated or reviewed the home and current medications. Reported Meds & Active Scripts Active Hydrocodone-Acetaminophen 5-325 mg Tab 1 Tab PO Q6H PRN Levofloxacin 750 Mg Tab 750 Mg PO DAILY Linezolid 600 Mg Tab 600 Mg PO Q12H Xanax (Alprazolam) 1 Mg Tab 1 Mg PO BID PRN Oxycodone (Oxycodone HCl) 5 Mg Cap 5 Mg PO Q6H PRN Potassium Chloride Microencaps 20 Meq Tab 40 Meq PO QID Levalbuterol Neb (Levalbuterol HCl) 1.25 Mg/3 Ml Neb 1.25 Mg NEB Q4HR NEB PRN Levalbuterol Neb (Levalbuterol HCl) 1.25 Mg/3 Ml Neb 1.25 Mg NEB Q6HR WHILE AWAKE NEB Furosemide 40 Mg Tab 40 Mg PO DAILY Cardizem (Diltiazem HCl) 30 Mg Tab 30 Mg PO Q6HR Reported Zofran Odt (Ondansetron Odt) 4 Mg Tab 4 Mg SL Q6HR PRN Restoril (Temazepam) 15 Mg Cap 15 Mg PO HS PRN Sennosides 8.6 Mg Tab 17.2 Mg PO BID Reglan (Metoclopramide HCl) 10 Mg Tab 10 Mg PO Q6HR PRN Prednisone 20 Mg Tab 20 Mg PO DAILY One Daily-Minerals (Multiple Vitamins W/ Minerals) 1 Tab 1 Tab PO DAILY Omeprazole 20 Mg Tab 20 Mg PO DAILY Bactroban Topical (Mupirocin) 2% Oint 1 Appl TOPICAL BID Apply to trach wound Lotrimin AF Deodorant Powder (Miconazole Nitrate Powder) 2 % Aerp 1 Applic TOPICAL BID Apply to skin folds every day and evening shift for redness Metolazone 2.5 Mg Tab 2.5 Mg PO DAILY Lantus Inj (Insulin Glargine) 100 Unit/Ml Inj 40 Units SQ Q12HR Humalog Inj (Insulin Human Lispro) 1,000 Unit/10 Ml Vial 4-16 Units SQ ACHS Sliding scale: 70-150=0 units, 151-200=4 units, 201-250=8 units, 251-300=10 units, 301-350=12 units, 351-400=16 units, 401 + Notify Glucagen Hypokit Inj Kit (Glucagon (Rdna) Inj Kit) 1 Mg Kit 1 Mg IM ONCE PRN Flomax (Tamsulosin HCl) 0.4 Mg Cap 0.4 Mg PO HS Budesonide Neb 0.5 Mg/2 Ml Neb 0.5 Mg NEB BID Brovana Neb (Arformoterol Neb) 15 Mcg/2 Ml Vial 15 Mcg NEB BID Maintenance treatment of bronchoconstriction in COPD. Anucort-Hc Supp (Hydrocortisone Acetate Supp) 25 Mg Supp 25 Mg RECTAL Q12HR Albuterol Neb (Albuterol Sulfate) 2.5 Mg/3 Ml Neb 2.5 Mg NEB Q4HR PRN While awake Xarelto (Rivaroxaban) 10 Mg Tab 10 Mg PO DAILY Acetylcysteine Liq/Neb (Acetylcysteine) 200 mg/ml Soln 4 Ml NEB Q8HR PRN Lyrica (Pregabalin) 75 Mg Cap 75 Mg PO DAILY Metoprolol Tartrate 25 Mg Tab 12.5 Mg PO BID Active Ordered Medications Current Medications Medications (Trade) Dose Ordered Sig/Mirta Route Start Time Stop Time Status Last Admin (Brethine Inj) 1 mg UNSCH PRN SQ 09/15/17 02:45 (Xanax) 1 mg BID PRN PO 09/15/17 03:30 09/19/17 01:00 (Cardizem) 30 mg Q6HR PO 09/15/17 06:00 09/19/17 06:52 (Lopressor) 12.5 mg BID PO 09/15/17 09:00 09/19/17 09:17 (Lyrica) 75 mg DAILY PO 09/15/17 09:00 09/19/17 09:17 (Xarelto) 10 mg DAILY PO 09/15/17 09:00 09/19/17 09:17 (Flomax) 0.4 mg HS PO 09/15/17 21:00 09/18/17 21:26 (Restoril) 15 mg HS PRN PO 09/15/17 03:30 Sodium Chloride 1,000 ml @ 0 mls/hr Q0M IV 09/15/17 03:25 09/16/17 04:46 (NS Flush) 2 ml UNSCH PRN IV FLUSH 09/15/17 03:30 (NS Flush) 2 ml BID IV FLUSH 09/15/17 09:00 09/19/17 09:18 (Tylenol) 650 mg Q6H PRN PO 09/15/17 03:30 09/16/17 08:22 (Pepcid Inj) 10 mg Q12HR IV PUSH 09/15/17 09:00 09/19/17 09:18 (Versed Inj) 2 mg Q1H PRN IV PUSH 09/15/17 03:30 09/16/17 04:45 (Tears Naturale Opth Soln) 1 drop TID EACH EYE 09/15/17 09:00 09/19/17 09:18 (Zofran Inj) 4 mg Q6H PRN IV PUSH 09/15/17 03:30 (Duoneb Neb) 1 ampule Q2HR NEB PRN INH 09/15/17 03:30 09/19/17 04:08 Miscellaneous Information 1 Q361D XX 09/15/17 03:30 (Chlorhexidine 2% Cloth) 3 pack Taper DAILY@04 TOP 09/15/17 04:00 09/11/18 03:59 09/18/17 04:00 (Chlorhexidine 2% Cloth) 3 pack UNSCH PRN TOP 09/15/17 03:30 (Zelda-Colace) 1 tab BID PO 09/15/17 09:00 09/19/17 09:17 (Milk Of Magnesia Liq) 30 ml Q12H PRN PO 09/15/17 03:30 (Senokot) 17.2 mg Q12H PRN PO 09/15/17 03:30 (Dulcolax Supp) 10 mg DAILY PRN RECTAL 09/15/17 03:30 (Lactulose Liq) 30 ml DAILY PRN PO 09/15/17 03:30 Azithromycin 500 mg/Sodium Chloride 250 ml @ 250 mls/hr Q24H IV 09/15/17 04:00 09/19/17 04:00 (NovoLOG SUPPLEMENTAL SCALE) 1 Q6HR SQ 09/15/17 18:00 09/19/17 06:53 (D50w (Vial) Inj) 25 ml UNSCH PRN IV 09/15/17 18:00 (Glucagon Inj) 1 mg UNSCH PRN IM/SQ 09/15/17 18:00 Aztreonam 2000 mg/ Sodium Chloride 100 ml @ 200 mls/hr Q8HR IV 09/16/17 14:00 09/19/17 06:52 (SoluMEDROL INJ) 40 mg Q12HR IV PUSH 09/16/17 21:00 09/19/17 09:18 (Mucomyst 10% Neb) 2 ml Q6HR NEB NEB 09/17/17 11:00 09/19/17 04:08 Pharmacy Profile Note 0 ml @ 0 mls/hr UNSCH OTHER 09/17/17 10:45 Family History Father had heart disease, diabetes, emphysema Mother had mental health issues Social History [facility] No smoking No alcohol abuse No illicit drugs Physical Exam Vital Signs Vital Signs Date Time Temp Pulse Resp B/P (MAP) Pulse Ox O2 Delivery O2 Flow Rate FiO2 09/19/17 08:31 95 Nasal Cannula 2.00 09/19/17 06:00 105 09/19/17 04:00 89 09/19/17 04:00 99.0 99 18 144/65 (91) 96 09/19/17 02:00 94 09/19/17 00:00 94 09/19/17 00:00 97.7 98 22 144/65 (91) 98 09/18/17 20:40 99 Nasal Cannula 2.00 09/18/17 20:00 98.0 98 22 116/65 (82) 94 09/18/17 20:00 108 09/18/17 18:00 94 09/18/17 17:00 97.5 96 18 130/67 (88) 96 09/18/17 16:00 97.5 98 16 121/72 (88) 95 09/18/17 16:00 98 09/18/17 15:00 97.7 103 15 142/63 (89) 97 09/18/17 14:00 101 09/18/17 14:00 97.7 101 23 116/80 (92) 95 09/18/17 13:00 97.6 111 22 123/79 (94) 92 09/18/17 12:00 97.2 94 18 139/93 (108) 95 09/18/17 12:00 94 09/18/17 11:00 96.8 92 15 137/77 (97) 96 Physical Exam GENERAL: Patient is a morbidly obese, well-developed patient, awake and alert , not in respiratory distress. SKIN: Warm and dry. No generalized rash, no ecchymoses and no evidence of embolic lesions. HEAD: Atraumatic. Normocephalic. No temporal wasting, or tenderness. EYES: [place] conjunctiva. No petechia or hemorrhage. Pupils equal, round and reactive to light. Extraocular movements full and intact. No scleral icterus. No injection or drainage. EARS, NOSE AND THROAT: Nose without bleeding or purulent nasal discharge. No sinus tenderness. Mucous membranes pink and moist. No oral lesions noted. No exudate. No oral thrush. NECK: Trachea midline. Supple and not tender, no meningeal signs CARDIOVASCULAR: Regular rate and rhythm. No murmurs, rubs or gallops heard RESPIRATORY: Scattered wheezing, decreased breath sounds at bases. ABDOMEN: Obese, soft, not tender, nondistended. Bowel sounds present and normoactive. No guarding. No rebound. Limited exam due to the size EXTREMITIES: No clubbing, cyanosis. Has mild pedal edema. No joint effusion , has good ROM. No calf tenderness. Well perfused and warm. NEUROLOGICAL: Awake and alert. Cranial nerves grossly intact. Motor grossly within normal limits. PSYCHIATRIC: Normal affect, calm and cooperative. LINE: No evidence of infection Laboratory Laboratory Tests Test 09/19/17 04:22 Random Vancomycin Level 21.5 Date/Time Source Procedure Growth Status 09/17/17 12:00 Blood Peripheral Aerobic Blood Culture - Preliminary Gram Positive Cocci Resulted 09/17/17 12:00 Blood Peripheral Anaerobic Blood Culture - Preliminary NO GROWTH IN 1 DAY Resulted 09/17/17 12:35 Sputum Endotracheal Gram Stain - Final Complete 09/17/17 12:35 Sputum Culture - Final S. Aureus Mrsa Complete 09/15/17 12:40 Urine Catheterized Urine Urine Culture - Final NO GROWTH IN 48 HOURS. Complete Result Diagram: 09/18/17 0620 09/18/17 0620 Imaging RADIOLOGY STUDIES/FILMS REVIEWED Chest X-Ray 09/17/17 0600 Signed Impressions: Service Date/Time: Sunday, September 17, 2017 05:01 - CONCLUSION: No significant change. Persistent opacity and volume loss in the left hemithorax. Chintan Marshall MD Assessment and Plan Assessment and Plan IMPRESSION MRSA Pneumonia Respiratory failure, S/P extubation Hx asthma, prob has underlying sleep apnea Morbid obesity RECOMMENDATION Stop Azithromycin Stop Aztreonam Zyvox for MRSA - follow CBC Monitor progress I will follow along with you Thank you for this consultation Discussed Condition With [place]/W Marely Aranda MD Sep 19, 2017 10:51
[2017-09-19] MEDS: LINEZOLID 600 MG TAB PO SCH ×2 (12:39→21:28)
--- NOTE | 2017-09-19 15:46 | HHI.CCPN ---
Subjective Remarks/Hospital Course 09/15: This is a 67-year-old unfortunate morbidly obese female who is in a alf rehabilitation where she's been diagnosed with pneumonia 2 days ago and started treating with Levaquin by mouth. She comes in called in by the paramedics as a rapid A. fib with minimal responsiveness. On arrival to emergency department with very somnolent. She was not arousable, her saturation was only at 70 on a room air. Her heart rate is between 120 and 167. Her blood pressure is 120/70. She would not open her eyes to voice command. She was given Narcan by ED staff with some prominent in alertness however still remained somnolent shortly after. She was unable to protect her airways and was intubated by an ED attending for an airway protection. She was also febrile with temperature 103.5 09/16: Remains sedated, orally intubated on mechanical ventilation. Arouses off sedation. Tolerated C Pap trial today however no air leak on deflating cuff hence left intubated. 09/17 No events overnight. On CPAP with PS 10, PEEP:5 and 40% FIO2. Afebrile. 09/18: Extubated yesterday. Tolerating nasal cannula well. Tolerated by mouth diet this morning. Denies any shortness of breath. 09/19: Remains on nasal cannula. Sputum growing out MRSA. Tolerating by mouth diet. Awaiting transfer out of ICU since yesterday. Objective Vital Signs Date Time Temp Pulse Resp B/P (MAP) Pulse Ox O2 Delivery O2 Flow Rate FiO2 09/19/17 08:31 95 Nasal Cannula 2.00 09/19/17 06:00 105 09/19/17 04:00 99.0 18 144/65 (91) 09/17/17 12:35 28 Intake and Output 09/19/17 09/19/17 09/20/17 08:00 16:00 00:00 Intake Total 900 ml Output Total 900 ml Balance 0 ml Result Diagram: 09/18/17 0620 09/18/17 0620 Other Results Microbiology Date/Time Source Procedure Growth Status 09/17/17 12:35 Sputum Endotracheal Gram Stain - Final Complete 09/17/17 12:35 Sputum Culture - Final S. Aureus Mrsa Complete Imaging Last Impressions Chest X-Ray 09/17/17 0600 Signed Impressions: Service Date/Time: Sunday, September 17, 2017 05:01 - CONCLUSION: No significant change. Persistent opacity and volume loss in the left hemithorax. Chintan Marshall MD Objective Remarks GENERAL: Morbidly obese female sitting up in bed not in any acute distress on nasal cannula SKIN: Warm and dry. HEAD: Normocephalic. EYES: No scleral icterus. No injection or drainage. NECK: Supple, trachea midline. No JVD or lymphadenopathy. CARDIOVASCULAR: Regular rate and rhythm without murmurs, gallops, or rubs. RESPIRATORY: Breath sounds equal bilaterally. No accessory muscle use. No wheezing or crackles GASTROINTESTINAL: Abdomen soft, non-tender, nondistended. Morbidly obese difficult to exam MUSCULOSKELETAL: No cyanosis, or edema. BACK: Nontender without obvious deformity. NEURO EXAM: Awake alert oriented 3, nonfocal grossly A/P Assessment and Plan Acute Respiratory failure - Intubated in the emergency department mostly for altered mental status with low GCS and hypoxemia -Extubated to nasal cannula on 09/17, tolerating well -bronchodilators, Mucomyst Encephalopathy -Resolved now -Monitor neuro status off sedation. Atrial fibrillation Hypertension -Monitor HR and BP keep MAP>65mmHg - Continue diltiazem 30mg Q6 and metoprolol 12.5mg BID - Continue Xarelto : Monitor renal function, I/O's, electrolytes replacement as needed. Avoid nephrotoxins Renal function is improving with Cr: 2.20 from 2.5, UOP 1750ml in 24hrs GI Tolerating by mouth diet. ID Coag negative staph, GPC bacteremia 09/15 -probably contaminant ID consult requested for MRSA pneumonia Stopped Aztreonam, Azithromycin, Vanco and switched to Zyvox by ID for MRSA pneumonia on 09/19 Sputum cultures growing MRSA 09/15 Strep pneumonia and Legionella urinary Ag negative Diabetes mellitus - Insulin sliding scale(medium scale) Heme: Monitor CBC GERD - IV Pepcid DVT GI prophylaxis - Teds SCDs - Subcutaneous heparin - IV Pepcid Consult and transfer to hospitalist service for further medical management ordered on 09/18. Awaiting Transfer out of ICU since 09/18. Kody Cartagena MD Sep 19, 2017 15:46
[2017-09-19 18:33] LABS: BLOOD GAS BASE EXCESS 5.3 mmol/L (-2-2); BLOOD GAS CARBOXYHEMOGLOBIN 1.3 % (0-4); BLOOD GAS HCO3 30 mmol/L (22-26); BLOOD GAS METHEMOGLOBIN 1.2 % (0-2); BLOOD GAS O2 HGB SATURATION 91 % (90-100); BLOOD GAS OXYGEN CONTENT 15.8 Vol % (12.0-20.0); BLOOD GAS PCO2 53 mmHg (38-42); BLOOD GAS PO2 68 mmHg (61-120); BLOOD GAS TOTAL HGB 12.3 G/DL (12.0-16.0); CRITICAL VALUE YES; DRAW SITE RT RADIAL; FIO2 28 %; LITER FLOW 2 L/M; NUMBER OF ARTERIAL PUNCTURES 1; OXYGEN DEVICE NASAL CANNULA; TEMP CORR TO 98.6
[2017-09-19 18:34] LABS: STAT NO; ULNAR PULSE PRESENT
--- NOTE | 2017-09-19 18:54 | MB ---
cc: JOSE DAVID MAIN M.D. DATE OF CONSULTATION: 09/19/2017. REASON FOR CONSULTATION: Respiratory failure, chronic bronchial asthma, morbid obesity, obesity hypoventilation HISTORY OF PRESENT ILLNESS: Mrs. Boone is a 67-year-old female with history of chronic bronchial asthma and/or COPD who comes from a senior living with altered mental status with significant hypercarbia requiring intubation, mechanical ventilation, subsequent extubation. The patient is mildly lethargic; however, easily arousable. No fever. No chills. Occasional cough. Whitish mucoid sputum. Has no history of TB of previous industrial exposure. PAST MEDICAL HISTORY: Her past medical history is that of: 1. COPD and/or chronic asthma. 2. Atrial fibrillation. 3. Hypertension. 4. Hyperlipidemia. 5. Acid reflux. 6. Morbid obesity. 7. Obesity hypoventilation. 8. Previous appendectomy. 9. Hernia repair. 10. She had a tracheostomy in the past ____ require one this hospitalization. 11. Diabetes mellitus. MEDICATIONS UPON PRESENTATION: 1. Restoril. 2. Reglan. 3. Prednisone. 4. Omeprazole. 5. Metolazone. 6. Insulin. 7. Flomax. 8. Budesonide. 9. Brovana nebulization. 10. Xarelto. 11. Lyrica. 12. Metoprolol. ALLERGIES: PENICILLIN. REVIEW OF SYSTEMS: A twelve-point review of systems is as per the history of present illness and past history, otherwise negative. PHYSICAL EXAMINATION: VITAL SIGNS: On exam, temperature 98, pulse 90, respirations 16, blood pressure 128/74. HEAD, EYES, EARS, NOSE, THROAT: Unremarkable. Eyes without icterus. NECK: Without adenopathy, thyroid enlargement. CHEST: Distant breath sounds throughout. The patient is morbidly obese. Decreased breath sounds at bases especially. CARDIAC: Irregularity noted. ABDOMEN: Obese. Lax. EXTREMITIES: Lymphedematous. LABS: White count 13,000, hemoglobin 11, hematocrit 35, platelet count 161,000. Sodium 144, potassium 3.6, BUN 71, creatinine 1.8. INR 1.1. ABG September 17: The pH 7.37, pC02 52, p02 of 92 on ventilatory support. IMAGING STUDIES: Chest x-ray with chronic atelectatic change, left hemothorax. IMPRESSION: 1. Acute on chronic respiratory failure. 2. Chronic bronchial asthma and/or COPD. 3. Obesity hypoventilation. 4. Diabetes mellitus. 5. Atrial fibrillation. 6. Chronic changes, left lung as discussed above. PLAN: 1. The patient will be maintained on oxygen therapy as needed. 2. BiPAP therapy when sleeping would be appropriate, which is on a long-term basis. 3. Antibiotic therapy will be continued, and the patient is followed by infectious disease. 4. Arterial blood gases will be followed. 5. The patient's outlook overall with her multiple medical problems is poor. Jose David Main MD WWW/ADÁN /5:18 PM /6:29 PM
[2017-09-19] MEDS: TAMSULOSIN HCL 0.4 MG CAP PO SCH (21:28)
[2017-09-20] VITALS (11 sets, daily range): BP systolic 120–165; BP diastolic 72–108; PULSE 80–120; RESP 17–22; TEMP 97.4–98.7; O2SAT 96–99
[2017-09-20] MEDS: INSULIN ASPART SUPPLEMENTAL SCALE SQ SCH ×5 (00:13→21:28)
[2017-09-20] MEDS: DILTIAZEM HCL 30 MG TAB PO SCH ×2 (00:13→06:19)
[2017-09-20] MEDS: ALPRAZolam 1 MG TAB PO PRN ×2 (00:38→21:29)
[2017-09-20] MEDS: CHLORHEXIDINE GLUCONATE 2 % 1 PACK (2 CLOTHS) TOP SCH ×2 (03:09→03:10)
[2017-09-20] MEDS: RESP: ACETYLCYSTEINE 10% 30 ML NEB NEB SCH ×3 (03:32→16:00)
[2017-09-20] MEDS: RESP: ALBUTEROL 2.5 MG/IPRATROPIUM 0.5 MG NEB (PRN) INH ×3 (03:32→20:02)
[2017-09-20] MEDS: ARTIFICIAL TEARS OPTH SOLN 15 ML BTL EACH EYE SCH ×3 (08:41→16:50)
[2017-09-20] MEDS: DOCUSATE SODIUM 50 MG/SENNA 8.6 MG TAB PO SCH ×2 (08:45→21:29)
[2017-09-20] MEDS: FAMOTIDINE 20 MG/2 ML VIAL IV PUSH SCH (08:45)
[2017-09-20] MEDS: LINEZOLID 600 MG TAB PO SCH ×2 (08:45→21:29)
[2017-09-20] MEDS: PREGABALIN 75 MG CAP PO SCH (08:45)
[2017-09-20] MEDS: METOPROLOL TARTRATE 25 MG TAB PO SCH ×2 (08:45→21:30)
[2017-09-20] MEDS: RIVAROXABAN 10 MG TAB PO SCH (08:45)
[2017-09-20] MEDS: SODIUM CHLORIDE 0.9% FLUSH 10 ML FLUSH IV FLUSH SCH ×2 (08:46→21:00)
[2017-09-20] MEDS: methylPREDNISolone SOD SUCC 40 MG/1 ML VIAL IV PUSH SCH (08:46)
--- NOTE | 2017-09-20 08:51 | HHI.PR ---
Subjective Remarks Follow up for MRSA pneumonia. Patient is currently doing well. No fever or chills. Tolerating diet well. Objective Vitals Vital Signs Date Time Temp Pulse Resp B/P (MAP) Pulse Ox O2 Delivery O2 Flow Rate FiO2 09/20/17 04:00 97.6 94 18 136/74 (94) 97 09/20/17 01:50 120 09/20/17 00:30 97.4 113 18 165/97 (119) 97 09/19/17 20:55 97.5 96 18 120/72 (88) 98 09/19/17 20:47 98 Nasal Cannula 3.00 09/19/17 18:00 109 09/19/17 16:00 97.7 110 16 114/70 (85) 09/19/17 16:00 110 09/19/17 14:00 103 09/19/17 12:00 92 09/19/17 12:00 98.0 92 16 123/76 (92) 09/19/17 10:00 107 I/O 09/19/17 09/19/17 09/19/17 09/20/17 09/20/17 09/20/17 07:00 15:00 23:00 07:00 15:00 23:00 Intake Total 550 ml 350 ml 750 ml 240 ml Output Total 900 ml Balance -350 ml 350 ml 750 ml 240 ml Intake Oral 350 ml 750 ml 240 ml IV Total 200 ml 350 ml Output Urine Total 900 ml # Voids 4 2 # Bowel Movements 2 1 Result Diagram: 09/18/17 0620 09/18/17 0620 Imaging Last Impressions Chest X-Ray 09/17/17 0600 Signed Impressions: Service Date/Time: Sunday, September 17, 2017 05:01 - CONCLUSION: No significant change. Persistent opacity and volume loss in the left hemithorax. Chintan Marshall MD Objective Remarks GENERAL: Alert, oriented 3, NAD. Morbidly obese. SKIN: Warm and dry. HEAD: Normocephalic. EYES: No scleral icterus. No injection or drainage. NECK: Supple, trachea midline. No JVD or lymphadenopathy. CARDIOVASCULAR: Regular rate and rhythm without murmurs, gallops, or rubs. RESPIRATORY: Breath sounds equal bilaterally. No accessory muscle use. GASTROINTESTINAL: Abdomen soft, non-tender, nondistended. MUSCULOSKELETAL: No cyanosis, or edema. BACK: Nontender without obvious deformity. No CVA tenderness. A/P Problem List: (1) MRSA pneumonia ICD Code: J15.212 - Pneumonia due to Methicillin resistant Staphylococcus aureus (2) Respiratory failure, acute ICD Code: J96.00 - Acute respiratory failure, unspecified whether with hypoxia or hypercapnia Status: Acute (3) Afib ICD Code: I48.91 - Unspecified atrial fibrillation Status: Chronic Assessment and Plan Ms. Boone is a pleasant 67-year-old female with a history of morbid obesity, atrial fibrillation who was admitted to the hospital due to acute respiratory failure as well as atrial fibrillation with RVR. On arrival her saturation was in the 70s on room air and heart rate between 120s and 167. Her blood pressure was 120/70. She was unable to protect her airways and subsequently she was intubated. Patient was extubated on 09/17/2017. She was transferred to the floor on 09/20/2017. - Acute respiratory failure - MRSA pneumonia - Status post extubation on 09/17/2017. Currently tolerating nasal cannula well. - Infectious disease is following. Patient is currently on Zyvox for MRSA pneumonia. - Atrial fibrillation - Currently on short acting diltiazem 30 mg every 6 hours and metoprolol 12.5 mg every 12 hours - We'll switch diltiazem long-acting 120 mg daily and increase metoprolol to 25 mg twice a day. - Continue Xarelto 10 mg daily. - Hyperglycemia - Last hemoglobin A1c in October 2016 was 5.3. However during this admission her blood sugar has been persistently high. - Possibly related to steroid use. - Will keep sliding scale insulin. Will check HbA1c. AM blood glucose has been 154 - 222. She likely has DM type 2. Full code. Xarelto. Problem Qualifiers (1) Respiratory failure, acute: Qualified Codes: J96.01 - Acute respiratory failure with hypoxia Tejinder Cavanaugh DO Sep 20, 2017 8:51 am
[2017-09-20] MEDS ORDERED: METOPROLOL TARTRATE 25 MG TAB PO SCH (09:00)
[2017-09-20] MEDS ORDERED: FAMOTIDINE 20 MG TAB PO SCH (09:00)
[2017-09-20] MEDS: DILTIAZEM-CD 120 MG CAP ER PO SCH (09:51)
--- NOTE | 2017-09-20 13:05 | HHI.IDPN ---
Subjective Subjective Remarks Patient is a morbidly obese 67-year-old female, with history of asthma, came from the alf, brought into the hospital for evaluation of decreased level of consciousness, as well as rapid atrial fibrillation. The A. fib has improved. She was given Narcan in the ED and some improvement in her mental status, but she became somnolent again. She ended up getting intubated by the ED for airway protection. Her chest x-ray has shown some hazy opacity on the left base. Patient was started on some antibiotics for pneumonia, and her sputum culture is now reported as growing MRSA. Patient was successfully extubated yesterday. She is on nasal O2. She denies shortness of breath currently. Patient states that she is coughing up some phlegm at times but not very much. She denies any chest pain. Patient has not been febrile. Her WBC is mildly elevated at 13,000. Infectious disease consultation has requested to evaluate the patient. Notes reviewed Temps ok Breathing seems stable Seen by pulmonary First 2 BC with Staph hominis - different MICs Antibiotics Current Medications Zyvox Medications (Trade) Dose Ordered Sig/Mirta Route Start Time Stop Time Status Last Admin (Brethine Inj) 1 mg UNSCH PRN SQ 09/15/17 02:45 (Xanax) 1 mg BID PRN PO 09/15/17 03:30 09/20/17 00:38 (Lyrica) 75 mg DAILY PO 09/15/17 09:00 09/20/17 08:45 (Xarelto) 10 mg DAILY PO 09/15/17 09:00 09/20/17 08:45 (Flomax) 0.4 mg HS PO 09/15/17 21:00 09/19/17 21:28 (Restoril) 15 mg HS PRN PO 09/15/17 03:30 09/20/17 00:38 Sodium Chloride 1,000 ml @ 0 mls/hr Q0M IV 09/15/17 03:25 09/16/17 04:46 (NS Flush) 2 ml UNSCH PRN IV FLUSH 09/15/17 03:30 (NS Flush) 2 ml BID IV FLUSH 09/15/17 09:00 09/20/17 08:46 (Tylenol) 650 mg Q6H PRN PO 09/15/17 03:30 09/16/17 08:22 (Tears Naturale Opth Soln) 1 drop TID EACH EYE 09/15/17 09:00 09/19/17 17:09 (Zofran Inj) 4 mg Q6H PRN IV PUSH 09/15/17 03:30 (Duoneb Neb) 1 ampule Q2HR NEB PRN INH 09/15/17 03:30 09/20/17 09:42 Miscellaneous Information 1 Q361D XX 09/15/17 03:30 (Chlorhexidine 2% Cloth) Taper DAILY@04 TOP 09/15/17 04:00 09/11/18 03:59 09/18/17 04:00 (Chlorhexidine 2% Cloth) 3 pack UNSCH PRN TOP 09/15/17 03:30 (Ezlda-Colace) 1 tab BID PO 09/15/17 09:00 09/20/17 08:45 (Milk Of Magnesia Liq) 30 ml Q12H PRN PO 09/15/17 03:30 (Senokot) 17.2 mg Q12H PRN PO 09/15/17 03:30 (Dulcolax Supp) 10 mg DAILY PRN RECTAL 09/15/17 03:30 (Lactulose Liq) 30 ml DAILY PRN PO 09/15/17 03:30 (NovoLOG SUPPLEMENTAL SCALE) 1 Q6HR SQ 09/15/17 18:00 09/20/17 12:00 (D50w (Vial) Inj) 25 ml UNSCH PRN IV 09/15/17 18:00 (Glucagon Inj) 1 mg UNSCH PRN IM/SQ 09/15/17 18:00 (Mucomyst 10% Neb) 2 ml Q6HR NEB NEB 09/17/17 11:00 09/20/17 09:42 (Zyvox) 600 mg Q12HR PO 09/19/17 11:00 09/20/17 08:45 (Cardizem Cd) 120 mg DAILY PO 09/20/17 09:00 09/20/17 09:51 (Pepcid) 20 mg BID PO 09/20/17 21:00 (Lopressor) 25 mg BID PO 09/20/17 21:00 Lines PIV Past Medical History Chronic asthma home oxygen Atrial fibrillation Hyperlipidemia Hypertension excellent diabetes mellitus GERD Morbid obesity BMI 55 Past Surgical History Appendectomy Hernia surgery Tracheostomy placement Allergies: Coded Allergies: penicillin G (Unverified Allergy, Severe, 05/29/17) Objective . Vital Signs Date Time Temp Pulse Resp B/P (MAP) Pulse Ox O2 Delivery O2 Flow Rate FiO2 09/20/17 09:26 97.4 101 17 158/72 (100) 96 09/20/17 04:00 97.6 94 18 136/74 (94) 97 09/20/17 01:50 120 09/20/17 00:30 97.4 113 18 165/97 (119) 97 09/19/17 20:55 97.5 96 18 120/72 (88) 98 09/19/17 20:47 98 Nasal Cannula 3.00 09/19/17 18:00 109 09/19/17 16:00 97.7 110 16 114/70 (85) 09/19/17 16:00 110 09/19/17 14:00 103 Imaging Last Impressions Chest X-Ray 09/17/17 0600 Signed Impressions: Service Date/Time: Sunday, September 17, 2017 05:01 - CONCLUSION: No significant change. Persistent opacity and volume loss in the left hemithorax. Chintan Marshall MD Physical Exam GENERAL: Patient is a morbidly obese, awake and alert, not in respiratory distress. SKIN: Warm and dry. No generalized rash, no ecchymoses and no evidence of embolic lesions. HEAD: Atraumatic. Normocephalic. No temporal wasting, or tenderness. EYES: [place] conjunctiva. No petechia or hemorrhage. Pupils equal, round and reactive to light. Extraocular movements full and intact. No scleral icterus. No injection or drainage. EARS, NOSE AND THROAT: Nose without bleeding or purulent nasal discharge. No sinus tenderness. Mucous membranes pink and moist. No oral lesions noted. No exudate. No oral thrush. NECK: Trachea midline. Supple and not tender, no meningeal signs CARDIOVASCULAR: Regular rate and rhythm. No murmurs, rubs or gallops heard RESPIRATORY: Scattered wheezing, decreased breath sounds at bases. ABDOMEN: Obese, soft, not tender, nondistended. Bowel sounds present and normoactive. No guarding. No rebound. Limited exam due to the size EXTREMITIES: No clubbing, cyanosis. Has mild pedal edema. No joint effusion , has good ROM. No calf tenderness. Well perfused and warm. NEUROLOGICAL: None PSYCHIATRIC: Normal affect, calm and cooperative. LINE: No evidence of infection Assessment & Plan Remarks IMPRESSION MRSA Pneumonia Respiratory failure, S/P extubation Hx asthma, prob has underlying sleep apnea Morbid obesity (+) BC, different MICs Coag Neg Staph, prob contaminant RECOMMENDATION Continue Zyvox for MRSA - follow CBC Monitor progress Follow C/S Marely Plunkett MD Sep 20, 2017 13:05
[2017-09-20] MEDS ORDERED: DEXTROSE 50% IN WATER 50 ML VIAL(D50) IV PUSH PRN (15:15)
[2017-09-20] MEDS ORDERED: GLUCAGON 1 MG/ML VIAL OTHER PRN (15:15)
--- NOTE | 2017-09-20 16:08 | HHI.PR ---
Subjective Remarks ALERT TRANSFERRED TO FLOOR NO SOB IN [facility] Objective Vital Signs Date Time Temp Pulse Resp B/P (MAP) Pulse Ox O2 Delivery O2 Flow Rate FiO2 09/20/17 15:17 97.6 86 20 162/78 (106) 98 09/20/17 13:49 108 09/20/17 13:36 97.4 80 20 148/108 (121) 96 09/20/17 09:26 97.4 101 17 158/72 (100) 96 09/20/17 04:00 97.6 94 18 136/74 (94) 97 09/20/17 01:50 120 09/20/17 00:30 97.4 113 18 165/97 (119) 97 09/19/17 20:55 97.5 96 18 120/72 (88) 98 09/19/17 20:47 98 Nasal Cannula 3.00 09/19/17 18:00 109 I/O 09/19/17 09/19/17 09/19/17 09/20/17 09/20/17 09/20/17 07:00 15:00 23:00 07:00 15:00 23:00 Intake Total 550 ml 350 ml 750 ml 240 ml 720 ml Output Total 900 ml Balance -350 ml 350 ml 750 ml 240 ml 720 ml Intake Oral 350 ml 750 ml 240 ml 720 ml IV Total 200 ml 350 ml Output Urine Total 900 ml # Voids 4 2 4 # Bowel Movements 2 1 2 Result Diagram: 09/18/1720 09/18/1720 Other Results GENERAL: SKIN: Warm and dry. HEAD: Atraumatic. Normocephalic. EYES: Pupils equal and round. No scleral icterus. No injection or drainage. ENT: No nasal bleeding or discharge. Mucous membranes pink and moist. NECK: Trachea midline. No JVD. CARDIOVASCULAR: Regular rate and rhythm. RESPIRATORY: No accessory muscle use. Clear to auscultation. Breath sounds equal bilaterally. GASTROINTESTINAL: Abdomen soft, non-tender, nondistended. Hepatic and splenic margins not palpable. MUSCULOSKELETAL: Extremities without clubbing, cyanosis, or edema. No obvious deformities. NEUROLOGICAL: Awake and alert. No obvious cranial nerve deficits. Motor grossly within normal limits. Five out of 5 muscle strength in the arms and legs. Normal speech. PSYCHIATRIC: Appropriate mood and affect; insight and judgment normal. Assessment and Plan Assessment and Plan RESPIRATORY FAILURE COPD OBESITY HYPOVENTILATION MORBID OBESITY PLAN P2 NEEDED BRONCHODILATOR THERAPY BIPAP/SLEEP LOOSE WT Jose David Main MD Sep 20, 2017 16:08
[2017-09-20] MEDS: TAMSULOSIN HCL 0.4 MG CAP PO SCH (21:29)
[2017-09-20] MEDS: FAMOTIDINE 20 MG TAB PO SCH (21:30)
[2017-09-20 22:21] LABS: HEMOGLOBIN A1a 1.4 %; HEMOGLOBIN Ao 79.2 %; HEMOGLOBIN LA1C 3.8 %; HEMOGLOBIN P3 7.6 %
[2017-09-21] VITALS (10 sets, daily range): BP systolic 103–157; BP diastolic 55–110; PULSE 84–97; RESP 20–22; TEMP 96.9–98.9; O2SAT 90–98
[2017-09-21] MEDS: CHLORHEXIDINE GLUCONATE 2 % 1 PACK (2 CLOTHS) TOP SCH (02:28)
[2017-09-21] MEDS: RESP: ACETYLCYSTEINE 10% 30 ML NEB NEB SCH ×4 (03:47→21:28)
[2017-09-21] MEDS: INSULIN ASPART SUPPLEMENTAL SCALE SQ SCH ×4 (08:00→21:00)
[2017-09-21] MEDS: METOPROLOL TARTRATE 25 MG TAB PO SCH ×2 (08:17→21:00)
[2017-09-21] MEDS: DOCUSATE SODIUM 50 MG/SENNA 8.6 MG TAB PO SCH ×2 (08:17→20:58)
[2017-09-21] MEDS: FAMOTIDINE 20 MG TAB PO SCH ×2 (08:17→20:59)
[2017-09-21] MEDS: RIVAROXABAN 10 MG TAB PO SCH (08:18)
[2017-09-21] MEDS: PREGABALIN 75 MG CAP PO SCH (08:18)
[2017-09-21] MEDS: LINEZOLID 600 MG TAB PO SCH ×2 (08:18→20:59)
[2017-09-21] MEDS: DILTIAZEM-CD 120 MG CAP ER PO SCH (08:18)
[2017-09-21] MEDS: ARTIFICIAL TEARS OPTH SOLN 15 ML BTL EACH EYE SCH ×3 (08:19→18:13)
[2017-09-21] MEDS: SODIUM CHLORIDE 0.9% FLUSH 10 ML FLUSH IV FLUSH SCH ×2 (08:19→20:58)
[2017-09-21 10:06] LABS: AUTOMATED NEUTROPHIL # 25.2 TH/MM3 (1.8-7.7); BASOPHIL % 0.1 % (0.0-2.0); EOSINOPHIL % 0.1 % (0.0-4.0); HEMATOCRIT 40.7 % (35.0-46.0); LYMPHOCYTE # 1.1 TH/MM3 (1.0-4.8); MEAN CELL VOLUME 86.2 FL (80.0-100.0); MEAN CORPUSCULAR HEMOGLOBIN 27.9 PG (27.0-34.0); MEAN CORPUSCULAR HGB CONC 32.3 % (32.0-36.0); MONO % 4.8 % (0.0-8.0); PLATELET COUNT 216 TH/MM3 (150-450); RED BLOOD COUNT 4.73 MIL/MM3 (4.00-5.30); RED CELL DISTRIBUTION WIDTH 18.4 % (11.6-17.2); WHITE BLOOD COUNT 27.7 TH/MM3 (4.0-11.0)
[2017-09-21 10:14] LABS: HEMO FLAGS AUTO DIFF
[2017-09-21 11:11] LABS: BANDS 7 % (0-6); CORRECTED NUCLEATED RBC 1 /100 WBC (0-0); METAMYELOCYTES 6 % (0-1); MYELOCYTES 1 % (0-0); NEUTROPHIL # MANUAL DIFF 24.7 TH/MM3 (1.8-7.7); PLATELET ESTIMATE SMEAR NORMAL (NORMAL); PLATELET MORPHOLOGY NORMAL (NORMAL); POLYS (SEG NEUTROPHILS) 75 % (16-70); SCAN/DIFF FINAL DIFF MANUAL; WBC DIFF SAMPLE 100
--- NOTE | 2017-09-21 11:29 | HHI.IDPN ---
Subjective Subjective Remarks Patient is a morbidly obese 67-year-old female, with history of asthma, came from the long term, brought into the hospital for evaluation of decreased level of consciousness, as well as rapid atrial fibrillation. The A. fib has improved. She was given Narcan in the ED and some improvement in her mental status, but she became somnolent again. She ended up getting intubated by the ED for airway protection. Her chest x-ray has shown some hazy opacity on the left base. Patient was started on some antibiotics for pneumonia, and her sputum culture is now reported as growing MRSA. Patient was successfully extubated yesterday. She is on nasal O2. She denies shortness of breath currently. Patient states that she is coughing up some phlegm at times but not very much. She denies any chest pain. Patient has not been febrile. Her WBC is mildly elevated at 13,000. Infectious disease consultation has requested to evaluate the patient. Notes reviewed Temps ok States her breathing is not so good today Also having diarrhea WBC up to 27K Seen by pulmonary First 2 BC with Staph hominis - different MICs Antibiotics Current Medications Zyvox Medications (Trade) Dose Ordered Sig/Mirta Route Start Time Stop Time Status Last Admin (Brethine Inj) 1 mg UNSCH PRN SQ 09/15/17 02:45 (Xanax) 1 mg BID PRN PO 09/15/17 03:30 09/20/17 21:29 (Lyrica) 75 mg DAILY PO 09/15/17 09:00 09/21/17 08:18 (Xarelto) 10 mg DAILY PO 09/15/17 09:00 09/21/17 08:18 (Flomax) 0.4 mg HS PO 09/15/17 21:00 09/20/17 21:29 (Restoril) 15 mg HS PRN PO 09/15/17 03:30 09/20/17 00:38 Sodium Chloride 1,000 ml @ 0 mls/hr Q0M IV 09/15/17 03:25 09/16/17 04:46 (NS Flush) 2 ml UNSCH PRN IV FLUSH 09/15/17 03:30 (NS Flush) 2 ml BID IV FLUSH 09/15/17 09:00 09/21/17 08:19 (Tylenol) 650 mg Q6H PRN PO 09/15/17 03:30 09/16/17 08:22 (Tears Naturale Opth Soln) 1 drop TID EACH EYE 09/15/17 09:00 09/21/17 08:19 (Zofran Inj) 4 mg Q6H PRN IV PUSH 09/15/17 03:30 (Duoneb Neb) 1 ampule Q2HR NEB PRN INH 09/15/17 03:30 09/20/17 20:02 Miscellaneous Information 1 Q361D XX 09/15/17 03:30 (Chlorhexidine 2% Cloth) Taper DAILY@04 TOP 09/15/17 04:00 09/11/18 03:59 09/18/17 04:00 (Chlorhexidine 2% Cloth) 3 pack UNSCH PRN TOP 09/15/17 03:30 (Zelda-Colace) 1 tab BID PO 09/15/17 09:00 09/21/17 08:17 (Milk Of Magnesia Liq) 30 ml Q12H PRN PO 09/15/17 03:30 (Senokot) 17.2 mg Q12H PRN PO 09/15/17 03:30 (Dulcolax Supp) 10 mg DAILY PRN RECTAL 09/15/17 03:30 (Lactulose Liq) 30 ml DAILY PRN PO 09/15/17 03:30 (Zyvox) 600 mg Q12HR PO 09/19/17 11:00 09/21/17 08:18 (Cardizem Cd) 120 mg DAILY PO 09/20/17 09:00 09/21/17 08:18 (Pepcid) 10 mg BID PO 09/20/17 21:00 09/21/17 08:17 (Lopressor) 25 mg BID PO 09/20/17 21:00 09/21/17 08:17 (D50w (Vial) Inj) 50 ml UNSCH PRN IV PUSH 09/20/17 15:15 (Glucagon Inj) 1 mg UNSCH PRN OTHER 09/20/17 15:15 (NovoLOG SUPPLEMENTAL SCALE) 1 ACHS SLIDING SCALE SQ 09/20/17 17:00 09/21/17 08:00 (Mucomyst 10% Neb) 2 ml Q6HR NEB NEB 09/20/17 16:00 Lines PIV Past Medical History Chronic asthma home oxygen Atrial fibrillation Hyperlipidemia Hypertension excellent diabetes mellitus GERD Morbid obesity BMI 55 Past Surgical History Appendectomy Hernia surgery Tracheostomy placement Allergies: Coded Allergies: penicillin G (Unverified Allergy, Severe, 05/29/17) Objective . Vital Signs Date Time Temp Pulse Resp B/P (MAP) Pulse Ox O2 Delivery O2 Flow Rate FiO2 09/21/17 11:06 87 09/21/17 08:11 96.9 88 20 128/87 (101) 98 09/21/17 04:00 98.9 97 22 157/71 (99) 95 09/21/17 01:00 98.8 84 20 149/110 (123) 93 09/20/17 21:37 95 09/20/17 20:05 99 Nasal Cannula 3.00 09/20/17 20:00 98.7 105 22 120/82 (95) 96 09/20/17 18:32 81 09/20/17 15:17 97.6 86 20 162/78 (106) 98 09/20/17 13:49 108 09/20/17 13:36 97.4 80 20 148/108 (121) 96 . Laboratory Tests Test 09/21/17 08:56 White Blood Count 27.7 TH/MM3 Red Blood Count 4.73 MIL/MM3 Hemoglobin 13.2 GM/DL Hematocrit 40.7 % Mean Corpuscular Volume 86.2 FL Mean Corpuscular Hemoglobin 27.9 PG Mean Corpuscular Hemoglobin Concent 32.3 % Red Cell Distribution Width 18.4 % Platelet Count 216 TH/MM3 Mean Platelet Volume 8.8 FL Neutrophils (%) (Auto) 91.0 % Lymphocytes (%) (Auto) 4.0 % Monocytes (%) (Auto) 4.8 % Eosinophils (%) (Auto) 0.1 % Basophils (%) (Auto) 0.1 % Neutrophils # (Auto) 25.2 TH/MM3 Lymphocytes # (Auto) 1.1 TH/MM3 Monocytes # (Auto) 1.3 TH/MM3 Eosinophils # (Auto) 0.0 TH/MM3 Basophils # (Auto) 0.0 TH/MM3 CBC Comment AUTO DIFF Differential Total Cells Counted 100 Neutrophils % (Manual) 75 % Band Neutrophils % 7 % Lymphocytes % 6 % Monocytes % 5 % Neutrophils # (Manual) 24.7 TH/MM3 Metamyelocytes 6 % Myelocytes 1 % Nucleated Red Blood Cells 1 /100 WBC Differential Comment FINAL DIFF MANUAL Platelet Estimate NORMAL Platelet Morphology Comment NORMAL Red Cell Morphology Comment NORMAL Laboratory Tests Test 09/20/17 16:10 Hemoglobin A1c 5.8 % Imaging Last Impressions Chest X-Ray 09/17/17 0600 Signed Impressions: Service Date/Time: Sunday, September 17, 2017 05:01 - CONCLUSION: No significant change. Persistent opacity and volume loss in the left hemithorax. Chintan Marshall MD Physical Exam GENERAL: Patient is a morbidly obese, awake and alert, not in respiratory distress. SKIN: Warm and dry. No generalized rash, no ecchymoses and no evidence of embolic lesions. HEAD: Atraumatic. Normocephalic. No temporal wasting, or tenderness. EYES: [place] conjunctiva. No petechia or hemorrhage. Pupils equal, round and reactive to light. Extraocular movements full and intact. No scleral icterus. EARS, NOSE AND THROAT: Nose without bleeding or purulent nasal discharge. No sinus tenderness. Mucous membranes pink and moist. No oral lesions noted NECK: Trachea midline. Supple and not tender, no meningeal signs CARDIOVASCULAR: Regular rate and rhythm. No murmurs, rubs or gallops heard RESPIRATORY: Decreased breath sounds at bases. ABDOMEN: Obese, soft, not tender, nondistended. Bowel sounds present and normoactive. No guarding. No rebound. Limited exam due to the size EXTREMITIES: No clubbing, cyanosis. Has silva pedal edema. No joint effusion, has good ROM. No calf tenderness. Well perfused and warm. NEUROLOGICAL: None PSYCHIATRIC: Normal affect, calm and cooperative. LINE: No evidence of infection Assessment & Plan Remarks IMPRESSION MRSA Pneumonia Respiratory failure, S/P extubation Hx asthma, prob has underlying sleep apnea Morbid obesity (+) BC, different MICs Coag Neg Staph, prob contaminant Leukocytosis, worse - has diarrhea, R/O C diff RECOMMENDATION Continue Zyvox for MRSA - follow CBC Repeat 2 BC today Stool for C diff Add Flagyl/Lactinex Monitor progress Follow C/S Follow CBC Explained plan to patient Marely Plunkett MD Sep 21, 2017 11:29
[2017-09-21] MEDS: RESP: ALBUTEROL 2.5 MG/IPRATROPIUM 0.5 MG NEB (PRN) INH ×3 (12:27→21:29)
[2017-09-21] MEDS: LACTOBACILLUS ACIDOPHILUS TAB PO SCH ×2 (12:28→18:12)
--- NOTE | 2017-09-21 14:24 | HHI.PR ---
Subjective Remarks Follow up for MRSA pneumonia. Patient is currently doing well. Denies any chest pain, shortness of breath, fever or chills. Objective Vitals Vital Signs Date Time Temp Pulse Resp B/P (MAP) Pulse Ox O2 Delivery O2 Flow Rate FiO2 09/21/17 12:28 98 Nasal Cannula 3.00 09/21/17 11:28 97.1 84 20 103/55 (71) 97 09/21/17 11:06 87 09/21/17 08:11 96.9 88 20 128/87 (101) 98 09/21/17 04:00 98.9 97 22 157/71 (99) 95 09/21/17 01:00 98.8 84 20 149/110 (123) 93 09/20/17 21:37 95 09/20/17 20:05 99 Nasal Cannula 3.00 09/20/17 20:00 98.7 105 22 120/82 (95) 96 09/20/17 18:32 81 09/20/17 15:17 97.6 86 20 162/78 (106) 98 I/O 09/20/17 09/20/17 09/20/17 09/21/17 09/21/17 09/21/17 07:00 15:00 23:00 07:00 15:00 23:00 Intake Total 240 ml 720 ml 720 ml Balance 240 ml 720 ml 720 ml Intake Oral 240 ml 720 ml 720 ml # Voids 2 4 1 6 # Bowel Movements 1 2 1 Result Diagram: 09/21/17 0856 09/18/17 0620 Imaging Last Impressions Chest X-Ray 09/17/17 0600 Signed Impressions: Service Date/Time: Sunday, September 17, 2017 05:01 - CONCLUSION: No significant change. Persistent opacity and volume loss in the left hemithorax. Chintan Marshall MD Objective Remarks GENERAL: Alert, oriented 3, NAD. Morbidly obese. SKIN: Warm and dry. HEAD: Normocephalic. EYES: No scleral icterus. No injection or drainage. NECK: Supple, trachea midline. No JVD or lymphadenopathy. CARDIOVASCULAR: Regular rate and rhythm without murmurs, gallops, or rubs. RESPIRATORY: Breath sounds equal bilaterally. No accessory muscle use. GASTROINTESTINAL: Abdomen soft, non-tender, nondistended. MUSCULOSKELETAL: No cyanosis, or edema. BACK: Nontender without obvious deformity. No CVA tenderness. Procedures None A/P Problem List: (1) MRSA pneumonia ICD Code: J15.212 - Pneumonia due to Methicillin resistant Staphylococcus aureus (2) Respiratory failure, acute ICD Code: J96.00 - Acute respiratory failure, unspecified whether with hypoxia or hypercapnia Status: Acute (3) Afib ICD Code: I48.91 - Unspecified atrial fibrillation Status: Chronic Assessment and Plan Ms. Boone is a pleasant 67-year-old female with a history of morbid obesity, atrial fibrillation who was admitted to the hospital due to acute respiratory failure as well as atrial fibrillation with RVR. On arrival her saturation was in the 70s on room air and heart rate between 120s and 167. Her blood pressure was 120/70. She was unable to protect her airways and subsequently she was intubated. Patient was extubated on 09/17/2017. She was transferred to the floor on 09/20/2017. - Acute respiratory failure - MRSA pneumonia - Status post extubation on 09/17/2017. Currently tolerating nasal cannula well. - Infectious disease is following. Patient is currently on Zyvox for MRSA pneumonia. - WBC went up from 13.3 K2 20 7.7K. We'll repeat CBC on 09/23/2017. - Atrial fibrillation - Continue diltiazem long-acting 120 mg daily and metoprolol to 25 mg twice a day. - Continue Xarelto 10 mg daily. - Hyperglycemia - Last hemoglobin A1c in October 2016 was 5.3. However during this admission her blood sugar has been persistently high. - Possibly related to steroid use. - Will keep sliding scale insulin. HbA1C 5.8. Glucose is improved. - Upon discharge, patient will likely benefit from Metformin Full code. Xarelto. Problem Qualifiers (1) Respiratory failure, acute: Qualified Codes: J96.01 - Acute respiratory failure with hypoxia Tejinder Cavanaugh DO Sep 21, 2017 2:24 pm
[2017-09-21] MEDS: metroNIDAZOLE 500 MG TAB PO SCH ×2 (15:03→21:00)
--- NOTE | 2017-09-21 15:17 | HHI.PR ---
Subjective Remarks ALERT NO SOB IN [facility] Objective Vital Signs Date Time Temp Pulse Resp B/P (MAP) Pulse Ox O2 Delivery O2 Flow Rate FiO2 09/21/17 12:28 98 Nasal Cannula 3.00 09/21/17 11:28 97.1 84 20 103/55 (71) 97 09/21/17 11:06 87 09/21/17 08:11 96.9 88 20 128/87 (101) 98 09/21/17 04:00 98.9 97 22 157/71 (99) 95 09/21/17 01:00 98.8 84 20 149/110 (123) 93 09/20/17 21:37 95 09/20/17 20:05 99 Nasal Cannula 3.00 09/20/17 20:00 98.7 105 22 120/82 (95) 96 09/20/17 18:32 81 09/20/17 15:17 97.6 86 20 162/78 (106) 98 I/O 09/20/17 09/20/17 09/20/17 09/21/17 09/21/17 09/21/17 07:00 15:00 23:00 07:00 15:00 23:00 Intake Total 240 ml 720 ml 720 ml Balance 240 ml 720 ml 720 ml Intake Oral 240 ml 720 ml 720 ml # Voids 2 4 1 6 # Bowel Movements 1 2 1 Result Diagram: 09/21/17 0856 09/18/17 0620 Objective Remarks GENERAL: SKIN: Warm and dry. HEAD: Atraumatic. Normocephalic. EYES: Pupils equal and round. No scleral icterus. No injection or drainage. ENT: No nasal bleeding or discharge. Mucous membranes pink and moist. NECK: Trachea midline. No JVD. CARDIOVASCULAR: Regular rate and rhythm. RESPIRATORY: No accessory muscle use. Clear to auscultation. Breath sounds equal bilaterally. GASTROINTESTINAL: Abdomen soft, non-tender, nondistended. Hepatic and splenic margins not palpable. MUSCULOSKELETAL: Extremities without clubbing, cyanosis, or edema. No obvious deformities. NEUROLOGICAL: Awake and alert. No obvious cranial nerve deficits. Motor grossly within normal limits. Five out of 5 muscle strength in the arms and legs. Normal speech. PSYCHIATRIC: Appropriate mood and affect; insight and judgment normal. Assessment and Plan Assessment and Plan RESPIRATORY FAILURE COPD OBESITY HYPOVENTILATION MORBID OBESITY PLAN P2 NEEDED BRONCHODILATOR THERAPY BIPAP/SLEEP LOOSE WT CHECK ABG Jose David Main MD Sep 21, 2017 15:17
[2017-09-21 17:12] LABS: BLOOD GAS BASE EXCESS 6.4 mmol/L (-2-2); BLOOD GAS CARBOXYHEMOGLOBIN 1.7 % (0-4); BLOOD GAS HCO3 32 mmol/L (22-26); BLOOD GAS METHEMOGLOBIN 0.9 % (0-2); BLOOD GAS O2 HGB SATURATION 94 % (90-100); BLOOD GAS OXYGEN CONTENT 16.2 Vol % (12.0-20.0); BLOOD GAS PCO2 59 mmHg (38-42); BLOOD GAS PO2 79 mmHg (61-120); BLOOD GAS TOTAL HGB 12.2 G/DL (12.0-16.0); CRITICAL VALUE YES; DRAW SITE LT RADIAL; LITER FLOW 3 L/M; NUMBER OF ARTERIAL PUNCTURES 2; OXYGEN DEVICE NASAL CANNULA; STAT NO; TEMP CORR TO 98.6; ULNAR PULSE PRESENT
[2017-09-21] MEDS: TAMSULOSIN HCL 0.4 MG CAP PO SCH (20:59)
[2017-09-21] MEDS: ALPRAZolam 1 MG TAB PO PRN (20:59)
[2017-09-22] VITALS (13 sets, daily range): BP systolic 101–119; BP diastolic 56–75; PULSE 78–110; RESP 16–18; TEMP 97.1–98.2; O2SAT 95–100
[2017-09-22] MEDS: CHLORHEXIDINE GLUCONATE 2 % 1 PACK (2 CLOTHS) TOP SCH (02:59)
[2017-09-22] MEDS: RESP: ACETYLCYSTEINE 10% 30 ML NEB NEB SCH ×3 (03:37→19:19)
[2017-09-22] MEDS: metroNIDAZOLE 500 MG TAB PO SCH ×3 (05:21→21:23)
[2017-09-22] MEDS: INSULIN ASPART SUPPLEMENTAL SCALE SQ SCH ×4 (08:00→21:22)
[2017-09-22] MEDS: RESP: ALBUTEROL 2.5 MG/IPRATROPIUM 0.5 MG NEB (PRN) INH (09:39)
[2017-09-22] MEDS: LINEZOLID 600 MG TAB PO SCH ×2 (09:59→21:22)
[2017-09-22] MEDS: LACTOBACILLUS ACIDOPHILUS TAB PO SCH ×3 (09:59→18:28)
[2017-09-22] MEDS: PREGABALIN 75 MG CAP PO SCH (09:59)
[2017-09-22] MEDS: DOCUSATE SODIUM 50 MG/SENNA 8.6 MG TAB PO SCH ×2 (09:59→21:22)
[2017-09-22] MEDS: METOPROLOL TARTRATE 25 MG TAB PO SCH ×2 (10:00→21:22)
[2017-09-22] MEDS: RIVAROXABAN 10 MG TAB PO SCH (10:00)
[2017-09-22] MEDS: FAMOTIDINE 20 MG TAB PO SCH ×2 (10:00→21:22)
[2017-09-22] MEDS: ARTIFICIAL TEARS OPTH SOLN 15 ML BTL EACH EYE SCH ×3 (10:01→18:28)
[2017-09-22] MEDS: DILTIAZEM-CD 120 MG CAP ER PO SCH (10:01)
[2017-09-22] MEDS: SODIUM CHLORIDE 0.9% FLUSH 10 ML FLUSH IV FLUSH SCH ×2 (10:02→21:22)
[2017-09-22] MEDS: CLOTRIMAZOLE 1% CREAM 15 GM TOPICAL SCH ×2 (14:00→21:23)
--- NOTE | 2017-09-22 14:53 | HHI.PR ---
Subjective Remarks Follow up for MRSA pneumonia. Patient is doing well. No acute concerns. No chest pain, shortness of breath, fever or chills. Objective Vitals Vital Signs Date Time Temp Pulse Resp B/P (MAP) Pulse Ox O2 Delivery O2 Flow Rate FiO2 09/22/17 11:57 98.2 105 16 101/59 (73) 98 09/22/17 09:42 95 Nasal Cannula 2.00 09/22/17 08:19 97.5 98 16 111/71 (84) 97 09/22/17 04:00 97.1 100 18 104/61 (75) 95 09/22/17 03:38 98 Nasal Cannula 2.00 09/22/17 00:25 79 09/22/17 00:00 97.1 100 18 104/61 (75) 95 09/22/17 00:00 97.8 78 18 111/56 (74) 99 09/21/17 17:00 84 09/21/17 16:57 94 Nasal Cannula 3.00 09/21/17 16:19 98.0 84 20 104/59 (74) 98 I/O 09/21/17 09/21/17 09/21/17 09/22/17 09/22/17 09/22/17 07:00 15:00 23:00 07:00 15:00 23:00 Intake Total 720 ml 360 ml Balance 720 ml 360 ml Intake Oral 720 ml 360 ml # Voids 1 6 1 5 1 # Bowel Movements 1 1 Result Diagram: 09/21/17 0856 09/18/17 0620 Imaging Last Impressions Chest X-Ray 09/17/17 0600 Signed Impressions: Service Date/Time: Sunday, September 17, 2017 05:01 - CONCLUSION: No significant change. Persistent opacity and volume loss in the left hemithorax. Chintan Marshall MD Objective Remarks GENERAL: Alert, oriented 3, NAD. Morbidly obese. SKIN: Warm and dry. HEAD: Normocephalic. EYES: No scleral icterus. No injection or drainage. NECK: Supple, trachea midline. No JVD or lymphadenopathy. CARDIOVASCULAR: Regular rate and rhythm without murmurs, gallops, or rubs. RESPIRATORY: Breath sounds equal bilaterally. No accessory muscle use. GASTROINTESTINAL: Abdomen soft, non-tender, nondistended. MUSCULOSKELETAL: No cyanosis, or edema. BACK: Nontender without obvious deformity. No CVA tenderness. Procedures None A/P Problem List: (1) MRSA pneumonia ICD Code: J15.212 - Pneumonia due to Methicillin resistant Staphylococcus aureus (2) Respiratory failure, acute ICD Code: J96.00 - Acute respiratory failure, unspecified whether with hypoxia or hypercapnia Status: Acute (3) Afib ICD Code: I48.91 - Unspecified atrial fibrillation Status: Chronic Assessment and Plan Ms. Boone is a pleasant 67-year-old female with a history of morbid obesity, atrial fibrillation who was admitted to the hospital due to acute respiratory failure as well as atrial fibrillation with RVR. On arrival her saturation was in the 70s on room air and heart rate between 120s and 167. Her blood pressure was 120/70. She was unable to protect her airways and subsequently she was intubated. Patient was extubated on 09/17/2017. She was transferred to the floor on 09/20/2017. - Acute respiratory failure - MRSA pneumonia - Status post extubation on 09/17/2017. Currently tolerating nasal cannula well. - Infectious disease is following. Patient is currently on Zyvox for MRSA pneumonia. - WBC went up from 13.3 K2 27.7K. We'll repeat CBC on 09/23/2017. - Atrial fibrillation - Continue diltiazem long-acting 120 mg daily and metoprolol to 25 mg twice a day. - Continue Xarelto 10 mg daily. - Hyperglycemia - Last hemoglobin A1c in October 2016 was 5.3. However during this admission her blood sugar has been persistently high. - Possibly related to steroid use. - Will keep sliding scale insulin. HbA1C 5.8. Glucose is improved. - Upon discharge, patient will likely benefit from Metformin Full code. Xarelto. Discharge plan: If CBC improves tomorrow, Patient can possibly go to SNF tomorrow. Problem Qualifiers (1) Respiratory failure, acute: Qualified Codes: J96.01 - Acute respiratory failure with hypoxia Tejinder Cavanaugh DO Sep 22, 2017 2:53 pm
[2017-09-22] MEDS: RESP: ALBUTEROL 2.5 MG/IPRATROPIUM 0.5 MG NEB (SCH) NEB (20:49)
[2017-09-22] MEDS: TAMSULOSIN HCL 0.4 MG CAP PO SCH (21:21)
[2017-09-23] VITALS (14 sets, daily range): BP systolic 111–138; BP diastolic 58–76; PULSE 90–120; RESP 16–18; TEMP 97.8–98.9; O2SAT 92–100
[2017-09-23] MEDS: CHLORHEXIDINE GLUCONATE 2 % 1 PACK (2 CLOTHS) TOP SCH (03:42)
[2017-09-23] MEDS: CLOTRIMAZOLE 1% CREAM 15 GM TOPICAL SCH ×3 (06:26→21:16)
[2017-09-23] MEDS: metroNIDAZOLE 500 MG TAB PO SCH ×3 (06:26→21:15)
[2017-09-23] MEDS: RESP: ACETYLCYSTEINE 10% 30 ML NEB NEB SCH ×3 (08:00→20:08)
[2017-09-23] MEDS: INSULIN ASPART SUPPLEMENTAL SCALE SQ SCH ×4 (08:00→21:15)
[2017-09-23] MEDS: RESP: ALBUTEROL 2.5 MG/IPRATROPIUM 0.5 MG NEB (SCH) NEB ×3 (08:52→20:08)
[2017-09-23] MEDS: FAMOTIDINE 20 MG TAB PO SCH ×2 (09:13→21:15)
[2017-09-23] MEDS: PREGABALIN 75 MG CAP PO SCH (09:14)
[2017-09-23] MEDS: METOPROLOL TARTRATE 25 MG TAB PO SCH ×2 (09:14→21:15)
[2017-09-23] MEDS: LINEZOLID 600 MG TAB PO SCH ×2 (09:14→21:15)
[2017-09-23] MEDS: RIVAROXABAN 10 MG TAB PO SCH (09:14)
[2017-09-23] MEDS: DOCUSATE SODIUM 50 MG/SENNA 8.6 MG TAB PO SCH ×2 (09:14→21:14)
[2017-09-23] MEDS: DILTIAZEM-CD 120 MG CAP ER PO SCH (09:14)
[2017-09-23] MEDS: LACTOBACILLUS ACIDOPHILUS TAB PO SCH ×3 (09:14→17:47)
[2017-09-23] MEDS: ARTIFICIAL TEARS OPTH SOLN 15 ML BTL EACH EYE SCH ×3 (09:15→17:48)
[2017-09-23] MEDS: SODIUM CHLORIDE 0.9% FLUSH 10 ML FLUSH IV FLUSH SCH ×2 (09:20→21:15)
[2017-09-23 10:44] LABS: AUTOMATED NEUTROPHIL # 23.3 TH/MM3 (1.8-7.7); BASOPHIL # 0.1 TH/MM3 (0-0.2); BASOPHIL % 0.4 % (0.0-2.0); EOSINOPHIL # 0.4 TH/MM3 (0-0.4); EOSINOPHIL % 1.4 % (0.0-4.0); HEMATOCRIT 37.3 % (35.0-46.0); LYMPH % 3.5 % (9.0-44.0); LYMPHOCYTE # 0.9 TH/MM3 (1.0-4.8); MEAN CELL VOLUME 86.8 FL (80.0-100.0); MEAN CORPUSCULAR HEMOGLOBIN 28.1 PG (27.0-34.0); MEAN CORPUSCULAR HGB CONC 32.4 % (32.0-36.0); NEUT % 91.7 % (16.0-70.0); PLATELET COUNT 174 TH/MM3 (150-450); RED BLOOD COUNT 4.29 MIL/MM3 (4.00-5.30); RED CELL DISTRIBUTION WIDTH 18.3 % (11.6-17.2); WHITE BLOOD COUNT 25.4 TH/MM3 (4.0-11.0)
[2017-09-23 10:51] LABS: HEMO FLAGS AUTO DIFF
[2017-09-23 12:07] LABS: BANDS 6 % (0-6); EOSINOPHILS 1 % (0-4); MYELOCYTES 4 % (0-0); NEUTROPHIL # MANUAL DIFF 22.4 TH/MM3 (1.8-7.7); PLATELET ESTIMATE SMEAR NORMAL (NORMAL); PLATELET MORPHOLOGY NORMAL (NORMAL); POLYS (SEG NEUTROPHILS) 78 % (16-70); SCAN/DIFF FINAL DIFF MANUAL; WBC DIFF SAMPLE 100
--- NOTE | 2017-09-23 19:58 | HHI.PR ---
Subjective Remarks Follow up for MRSA pneumonia. Patient is doing well. No fever, chills. Despite persistent leukocytosis, she does not have any complain of cough, fever, chills , abdominal pain, dysuria. Objective Vitals Vital Signs Date Time Temp Pulse Resp B/P (MAP) Pulse Ox O2 Delivery O2 Flow Rate FiO2 09/23/17 17:12 98.5 92 16 122/74 (90) 99 09/23/17 17:01 92 09/23/17 14:20 96 09/23/17 12:20 98.6 98 16 138/76 (96) 98 09/23/17 10:56 120 09/23/17 08:26 98.5 94 16 111/65 (80) 99 09/23/17 08:20 Nasal Cannula 2.00 09/23/17 05:08 112 09/23/17 05:06 107 09/23/17 04:00 98.9 104 17 130/58 (82) 94 09/23/17 03:24 104 09/23/17 00:00 98.0 106 17 116/63 (80) 92 09/22/17 23:53 Room Air 09/22/17 20:00 97.7 104 17 119/66 (83) 100 I/O 09/22/17 09/22/17 09/22/17 09/23/17 09/23/17 09/23/17 07:00 15:00 23:00 07:00 15:00 23:00 Intake Total 360 ml 360 ml Balance 360 ml 360 ml Intake Oral 360 ml 360 ml # Voids 5 1 1 1 # Bowel Movements 1 Result Diagram: 09/23/17 0932 Objective Remarks GENERAL: Alert, oriented 3, NAD. Morbidly obese. SKIN: Warm and dry. HEAD: Normocephalic. EYES: No scleral icterus. No injection or drainage. NECK: Supple, trachea midline. No JVD or lymphadenopathy. CARDIOVASCULAR: Regular rate and rhythm without murmurs, gallops, or rubs. RESPIRATORY: Breath sounds equal bilaterally. No accessory muscle use. GASTROINTESTINAL: Abdomen soft, non-tender, nondistended. MUSCULOSKELETAL: No cyanosis, or edema. BACK: Nontender without obvious deformity. No CVA tenderness. Procedures None A/P Problem List: (1) MRSA pneumonia ICD Code: J15.212 - Pneumonia due to Methicillin resistant Staphylococcus aureus (2) Respiratory failure, acute ICD Code: J96.00 - Acute respiratory failure, unspecified whether with hypoxia or hypercapnia Status: Acute (3) Afib ICD Code: I48.91 - Unspecified atrial fibrillation Status: Chronic Assessment and Plan Ms. Boone is a pleasant 67-year-old female with a history of morbid obesity, atrial fibrillation who was admitted to the hospital due to acute respiratory failure as well as atrial fibrillation with RVR. On arrival her saturation was in the 70s on room air and heart rate between 120s and 167. Her blood pressure was 120/70. She was unable to protect her airways and subsequently she was intubated. Patient was extubated on 09/17/2017. She was transferred to the floor on 09/20/2017. - Acute respiratory failure - MRSA pneumonia - Status post extubation on 09/17/2017. Currently tolerating nasal cannula well. - Infectious disease is following. Patient is currently on Zyvox for MRSA pneumonia. - WBC went up from 13.3K --> 27K --> 25K - Will discuss with ID on 09/24/2017. No clinical evidence of any acute infection. - Atrial fibrillation - Continue diltiazem long-acting 120 mg daily and metoprolol to 25 mg twice a day. - Continue Xarelto 10 mg daily. - Hyperglycemia - Last hemoglobin A1c in October 2016 was 5.3. However during this admission her blood sugar has been persistently high. - Possibly related to steroid use. - Will keep sliding scale insulin. HbA1C 5.8. Glucose is improved. - Upon discharge, patient will likely benefit from Metformin Full code. Xarelto. Discharge plan: Possible SNF placement in 1-2 days. Problem Qualifiers (1) Respiratory failure, acute: Qualified Codes: J96.01 - Acute respiratory failure with hypoxia Tejinder Cavanaugh DO Sep 23, 2017 19:58
[2017-09-23] MEDS: TAMSULOSIN HCL 0.4 MG CAP PO SCH (21:14)
[2017-09-24] VITALS: BP 146/65; PULSE 92; RESP 17; TEMP 97.8; O2SAT 99
[2017-09-24 00:01] VITALS: PULSE 82
[2017-09-24] MEDS: CHLORHEXIDINE GLUCONATE 2 % 1 PACK (2 CLOTHS) TOP SCH (03:09)
[2017-09-24 04:45] VITALS: BP 122/69; PULSE 106; RESP 18; TEMP 97.6; O2SAT 98
[2017-09-24] MEDS: metroNIDAZOLE 500 MG TAB PO SCH (06:02)
[2017-09-24] MEDS: CLOTRIMAZOLE 1% CREAM 15 GM TOPICAL SCH ×2 (06:03→13:49)
[2017-09-24 07:47] VITALS: O2SAT 98
[2017-09-24] MEDS: RESP: ACETYLCYSTEINE 10% 30 ML NEB NEB SCH ×2 (07:47→13:12)
[2017-09-24] MEDS: RESP: ALBUTEROL 2.5 MG/IPRATROPIUM 0.5 MG NEB (SCH) NEB ×2 (07:47→13:12)
[2017-09-24 08:01] VITALS: BP 116/61; PULSE 113; RESP 20; TEMP 98.2; O2SAT 97
[2017-09-24] MEDS: LINEZOLID 600 MG TAB PO SCH (09:01)
[2017-09-24] MEDS: LACTOBACILLUS ACIDOPHILUS TAB PO SCH ×2 (09:01→13:49)
[2017-09-24] MEDS: FAMOTIDINE 20 MG TAB PO SCH (09:01)
[2017-09-24] MEDS: DOCUSATE SODIUM 50 MG/SENNA 8.6 MG TAB PO SCH (09:01)
[2017-09-24] MEDS: PREGABALIN 75 MG CAP PO SCH (09:01)
[2017-09-24] MEDS: DILTIAZEM-CD 120 MG CAP ER PO SCH (09:02)
[2017-09-24] MEDS: RIVAROXABAN 10 MG TAB PO SCH (09:02)
[2017-09-24] MEDS: METOPROLOL TARTRATE 25 MG TAB PO SCH (09:02)
[2017-09-24] MEDS: ARTIFICIAL TEARS OPTH SOLN 15 ML BTL EACH EYE SCH ×2 (09:03→13:49)
[2017-09-24] MEDS: INSULIN ASPART SUPPLEMENTAL SCALE SQ SCH ×2 (09:03→12:01)
[2017-09-24] MEDS: SODIUM CHLORIDE 0.9% FLUSH 10 ML FLUSH IV FLUSH SCH (09:03)
--- NOTE | 2017-09-24 09:56 | RADRPT ---
EXAM DATE/TIME: 09/24/2017 09:26 [facility] COMPARISON: CHEST SINGLE AP, September 17, 2017, 5:01. INDICATIONS : Evaluate pneumonia. MEDICAL HISTORY : Hypertension. Diabetes mellitus type II. SURGICAL HISTORY : None. ENCOUNTER: Initial ACUITY: 1 week PAIN SCORE: 4/10 LOCATION: chest FINDINGS: The heart is stable. Bibasilar patchiness is noted consistent with atelectasis and/or infiltrates. Th e endotracheal tube and nasogastric tube have been removed. Degenerative changes and scoliosis of the thoracic spine are noted. CONCLUSION: 1. Bibasilar patchiness consistent with atelectasis and/or infiltrates. 2. Degenerative changes and scoliosis of the thoracic spine. Elvin Childs MD on September 24, 2017 at 9:51 Board Certified Radiologist. This report was verified electronically.
--- NOTE | 2017-09-24 11:14 | HHI.IDPN ---
Subjective Subjective Remarks Patient is a morbidly obese 67-year-old female, with history of asthma, came from the [facility], brought into the hospital for evaluation of decreased level of consciousness, as well as rapid atrial fibrillation. The A. fib has improved. She was given Narcan in the ED and some improvement in her mental status, but she became somnolent again. She ended up getting intubated by the ED for airway protection. Her chest x-ray has shown some hazy opacity on the left base. Patient was started on some antibiotics for pneumonia, and her sputum culture is now reported as growing MRSA. Patient was successfully extubated yesterday. She is on nasal O2. She denies shortness of breath currently. Patient states that she is coughing up some phlegm at times but not very much. She denies any chest pain. Patient has not been febrile. Her WBC is mildly elevated at 13,000. Infectious disease consultation has requested to evaluate the patient. Notes reviewed Temps ok Breathing is improving NO further diarrhea WBC lower Did notsleep well last night - has had problem with insomnia in the past CXR stable Antibiotics Current Medications Zyvox Flagyl Medications (Trade) Dose Ordered Sig/Mirta Route Start Time Stop Time Status Last Admin (Brethine Inj) 1 mg UNSCH PRN SQ 09/15/17 02:45 (Xanax) 1 mg BID PRN PO 09/15/17 03:30 09/21/17 20:59 (Lyrica) 75 mg DAILY PO 09/15/17 09:00 09/24/17 09:01 (Xarelto) 10 mg DAILY PO 09/15/17 09:00 09/24/17 09:02 (Flomax) 0.4 mg HS PO 09/15/17 21:00 09/23/17 21:14 (Restoril) 15 mg HS PRN PO 09/15/17 03:30 09/20/17 00:38 Sodium Chloride 1,000 ml @ 0 mls/hr Q0M IV 09/15/17 03:25 09/16/17 04:46 (NS Flush) 2 ml UNSCH PRN IV FLUSH 09/15/17 03:30 (NS Flush) 2 ml BID IV FLUSH 09/15/17 09:00 09/24/17 09:03 (Tylenol) 650 mg Q6H PRN PO 09/15/17 03:30 09/16/17 08:22 (Tears Naturale Opth Soln) 1 drop TID EACH EYE 09/15/17 09:00 09/24/17 09:03 (Zofran Inj) 4 mg Q6H PRN IV PUSH 09/15/17 03:30 09/24/17 01:36 (Duoneb Neb) 1 ampule Q2HR NEB PRN INH 09/15/17 03:30 09/22/17 09:39 Miscellaneous Information 1 Q361D XX 09/15/17 03:30 (Chlorhexidine 2% Cloth) Taper DAILY@04 TOP 09/15/17 04:00 09/11/18 03:59 09/18/17 04:00 (Chlorhexidine 2% Cloth) 3 pack UNSCH PRN TOP 09/15/17 03:30 (Zelda-Colace) 1 tab BID PO 09/15/17 09:00 09/24/17 09:01 (Milk Of Magnesia Liq) 30 ml Q12H PRN PO 09/15/17 03:30 (Senokot) 17.2 mg Q12H PRN PO 09/15/17 03:30 (Dulcolax Supp) 10 mg DAILY PRN RECTAL 09/15/17 03:30 (Lactulose Liq) 30 ml DAILY PRN PO 09/15/17 03:30 (Zyvox) 600 mg Q12HR PO 09/19/17 11:00 09/24/17 09:01 (Cardizem Cd) 120 mg DAILY PO 09/20/17 09:00 09/24/17 09:02 (Pepcid) 10 mg BID PO 09/20/17 21:00 09/24/17 09:01 (Lopressor) 25 mg BID PO 09/20/17 21:00 09/24/17 09:02 (D50w (Vial) Inj) 50 ml UNSCH PRN IV PUSH 09/20/17 15:15 (Glucagon Inj) 1 mg UNSCH PRN OTHER 09/20/17 15:15 (NovoLOG SUPPLEMENTAL SCALE) 1 ACHS SLIDING SCALE SQ 09/20/17 17:00 09/24/17 09:03 (Flagyl) 500 mg Q8HR PO 09/21/17 14:00 09/24/17 06:02 (Lactinex) 1 tab TID PO 09/21/17 13:00 09/24/17 09:01 (Mucomyst 10% Neb) 2 ml TID NEB NEB 09/22/17 14:00 09/24/17 07:47 (Duoneb Neb) 1 ampule TID NEB NEB 09/22/17 14:00 09/24/17 07:47 (Lotrimin 1% Cream) 1 applic Q8HR TOPICAL 09/22/17 14:00 09/24/17 06:03 Lines PIV Past Medical History Chronic asthma home oxygen Atrial fibrillation Hyperlipidemia Hypertension excellent diabetes mellitus GERD Morbid obesity BMI 55 Past Surgical History Appendectomy Hernia surgery Tracheostomy placement Allergies: Coded Allergies: penicillin G (Unverified Allergy, Severe, 05/29/17) Objective . Vital Signs Date Time Temp Pulse Resp B/P (MAP) Pulse Ox O2 Delivery O2 Flow Rate FiO2 09/24/17 09:11 97 Nasal Cannula 2.00 09/24/17 08:01 98.2 113 20 116/61 (79) 97 09/24/17 07:47 98 Nasal Cannula 1.00 09/24/17 04:45 97.6 106 18 122/69 (86) 98 09/24/17 00:01 82 09/24/17 00:00 97.8 92 17 146/65 (92) 99 09/23/17 21:15 Nasal Cannula 2.00 09/23/17 20:16 94 09/23/17 20:08 99 21 09/23/17 20:00 98.3 100 18 120/71 (87) 100 09/23/17 17:12 98.5 92 16 122/74 (90) 99 09/23/17 17:01 92 09/23/17 14:20 96 09/23/17 12:20 98.6 98 16 138/76 (96) 98 . Laboratory Tests Test 09/23/17 09:32 White Blood Count 25.4 TH/MM3 Red Blood Count 4.29 MIL/MM3 Hemoglobin 12.1 GM/DL Hematocrit 37.3 % Mean Corpuscular Volume 86.8 FL Mean Corpuscular Hemoglobin 28.1 PG Mean Corpuscular Hemoglobin Concent 32.4 % Red Cell Distribution Width 18.3 % Platelet Count 174 TH/MM3 Mean Platelet Volume 8.7 FL Neutrophils (%) (Auto) 91.7 % Lymphocytes (%) (Auto) 3.5 % Monocytes (%) (Auto) 3.0 % Eosinophils (%) (Auto) 1.4 % Basophils (%) (Auto) 0.4 % Neutrophils # (Auto) 23.3 TH/MM3 Lymphocytes # (Auto) 0.9 TH/MM3 Monocytes # (Auto) 0.8 TH/MM3 Eosinophils # (Auto) 0.4 TH/MM3 Basophils # (Auto) 0.1 TH/MM3 CBC Comment AUTO DIFF Differential Total Cells Counted 100 Neutrophils % (Manual) 78 % Band Neutrophils % 6 % Lymphocytes % 7 % Monocytes % 4 % Eosinophils % 1 % Neutrophils # (Manual) 22.4 TH/MM3 Myelocytes 4 % Differential Comment FINAL DIFF MANUAL Platelet Estimate NORMAL Platelet Morphology Comment NORMAL Red Cell Morphology Comment NORMAL Microbiology Date/Time Source Procedure Growth Status 09/22/17 08:15 Blood Peripheral Aerobic Blood Culture - Preliminary NO GROWTH IN 2 DAYS Resulted 09/22/17 08:15 Blood Peripheral Anaerobic Blood Culture - Preliminary NO GROWTH IN 2 DAYS Resulted 09/22/17 08:10 Blood Peripheral Aerobic Blood Culture - Preliminary NO GROWTH IN 2 DAYS Resulted 09/22/17 08:10 Blood Peripheral Anaerobic Blood Culture - Preliminary NO GROWTH IN 2 DAYS Resulted Imaging Last Impressions Chest X-Ray 09/17/17 0600 Signed Impressions: Service Date/Time: Sunday, September 17, 2017 05:01 - CONCLUSION: No significant change. Persistent opacity and volume loss in the left hemithorax. Chintan Marshall MD Physical Exam GENERAL: Patient is a morbidly obese, awake and alert, NAD SKIN: Warm and dry. No generalized rash, no ecchymoses and no evidence of embolic lesions. HEAD: Atraumatic. Normocephalic. No temporal wasting, or tenderness. EYES: [place] conjunctiva. No petechia or hemorrhage. Pupils equal, round and reactive to light. Extraocular movements full and intact. No scleral icterus. EARS, NOSE AND THROAT: Nose without bleeding or purulent nasal discharge. No sinus tenderness. Mucous membranes pink and moist. No oral lesions noted NECK: Trachea midline. Supple and not tender, no meningeal signs CARDIOVASCULAR: Regular rate and rhythm. No murmurs, rubs or gallops heard RESPIRATORY: Decreased breath sounds at bases. ABDOMEN: Obese, soft, not tender, nondistended. Bowel sounds present and normoactive. No guarding. No rebound. Limited exam due to the size EXTREMITIES: No clubbing, cyanosis. Has silva pedal edema. No joint effusion, has good ROM. No calf tenderness. Well perfused and warm. NEUROLOGICAL: None PSYCHIATRIC: Normal affect, calm and cooperative. LINE: No evidence of infection Assessment & Plan Remarks IMPRESSION MRSA Pneumonia Respiratory failure, S/P extubation Hx asthma, prob has underlying sleep apnea Morbid obesity (+) BC, different MICs Coag Neg Staph, prob contaminant Leukocytosis, better Diarrhea, resolved RECOMMENDATION Continue Zyvox for MRSA - follow CBC - give until 09/29 Stop Falgyl Should be able to D/C back to SNF Clinically doing well Explained plan to patient Marely Plunkett MD Sep 24, 2017 11:13
[2017-09-24 11:50] VITALS: BP 122/61; PULSE 115; RESP 20; TEMP 98.6; O2SAT 98
[2017-09-24] MEDS ORDERED: LINE1TAB PO (11:57)
[2017-09-24] MEDS ORDERED: CLOT1CRE8 TOPICAL (11:57)
[2017-09-24] MEDS ORDERED: DILT120C50 PO (11:57)
[2017-09-24] MEDS ORDERED: NOVOLOGP2 SQ (11:57)
[2017-09-24] MEDS ORDERED: FAMO20TA2 PO (11:57)
[2017-09-24] MEDS ORDERED: METO25TA3 PO (11:57)
[2017-09-24] MEDS ORDERED: LACTCHW3 CHEW (11:59)
--- NOTE | 2017-09-24 12:01 | HHI.DS ---
Discharge Summary Admission Date Sep 15, 2017 at 2:28 am Discharge Date: Sep 24, 2017 Admitting Diagnosis SEPSIS (1) MRSA pneumonia ICD Code: J15.212 - Pneumonia due to Methicillin resistant Staphylococcus aureus Diagnosis: Principal (2) Respiratory failure, acute ICD Code: J96.00 - Acute respiratory failure, unspecified whether with hypoxia or hypercapnia Diagnosis: Principal Status: Acute (3) Afib ICD Code: I48.91 - Unspecified atrial fibrillation Status: Chronic Procedures None Brief History - From Admission This is a 67-year-old unfortunate morbidly obese female who is in a senior care rehabilitation where she's been diagnosed with pneumonia 2 days ago and started treating with Levaquin by mouth. She comes in called in by the paramedics as a rapid A. fib with minimal responsiveness. On arrival to emergency department with very somnolent. She was not arousable, her saturation was only at 70 on a room air. Her heart rate is between 120 and 167. Her blood pressure is 120/70. She would not open her eyes to voice command. She was given Narcan by ED staff with some prominent in alertness however still remained somnolent shortly after. She was unable to protect her airways and was intubated by an ED attending for an airway protection. She was also febrile with temperature 103.5 CBC/BMP: 09/23/17 0932 Significant Findings Laboratory Tests Test 09/21/17 16:55 09/23/17 09:32 Blood Gas HCO3 32 mmol/L (22-26) Blood Gas Base Excess 6.4 mmol/L (-2-2) Arterial Blood pH 7.35 (7.380-7.420) Arterial Blood Partial Pressure CO2 59 mmHg (38-42) White Blood Count 25.4 TH/MM3 (4.0-11.0) Red Cell Distribution Width 18.3 % (11.6-17.2) Neutrophils (%) (Auto) 91.7 % (16.0-70.0) Lymphocytes (%) (Auto) 3.5 % (9.0-44.0) Neutrophils # (Auto) 23.3 TH/MM3 (1.8-7.7) Lymphocytes # (Auto) 0.9 TH/MM3 (1.0-4.8) Neutrophils % (Manual) 78 % (16-70) Lymphocytes % 7 % (9-44) Neutrophils # (Manual) 22.4 TH/MM3 (1.8-7.7) Myelocytes 4 % (0-0) Imaging Last Impressions Chest X-Ray 09/24/17 0900 Signed Impressions: Service Date/Time: Sunday, September 24, 2017 09:26 - CONCLUSION: 1. Bibasilar patchiness consistent with atelectasis and/or infiltrates. 2. Degenerative changes and scoliosis of the thoracic spine. Elvin Childs MD PE at Discharge GENERAL: Alert, oriented 3, NAD. Morbidly obese. SKIN: Warm and dry. HEAD: Normocephalic. EYES: No scleral icterus. No injection or drainage. NECK: Supple, trachea midline. No JVD or lymphadenopathy. CARDIOVASCULAR: Regular rate and rhythm without murmurs, gallops, or rubs. RESPIRATORY: Breath sounds equal bilaterally. No accessory muscle use. GASTROINTESTINAL: Abdomen soft, non-tender, nondistended. MUSCULOSKELETAL: No cyanosis, or edema. BACK: Nontender without obvious deformity. No CVA tenderness. Pt update on day of discharge Patient is currently doing well. No chest pain, SOB, fever, chills. No diarrhea , abdominal pain. Hospital Course Ms. Boone is a pleasant 67-year-old female with a history of morbid obesity, atrial fibrillation who was admitted to the hospital due to acute respiratory failure as well as atrial fibrillation with RVR. On arrival her saturation was in the 70s on room air and heart rate between 120s and 167. Her blood pressure was 120/70. She was unable to protect her airways and subsequently she was intubated. Patient was extubated on 09/17/2017. She was transferred to the floor on 09/20/2017. - Acute respiratory failure - MRSA pneumonia - Status post extubation on 09/17/2017. Currently tolerating nasal cannula well. - Infectious disease is following. Patient is currently on Zyvox for MRSA pneumonia. - WBC went up from 13.3K --> 27K --> 25K - No clinical evidence of any acute infection. - Atrial fibrillation - Continue diltiazem long-acting 120 mg daily and metoprolol to 25 mg twice a day. - Continue Xarelto 10 mg daily. - Hyperglycemia - Last hemoglobin A1c in October 2016 was 5.3. However during this admission her blood sugar has been persistently high. - Possibly related to steroid use. - Will keep sliding scale insulin. HbA1C 5.8. Glucose is improved. Full code. Xarelto. Pt Condition on Discharge: Good Discharge Disposition: Discharge to SNF Discharge Time: > 30 minutes Discharge Instructions DIET: Follow Instructions for: Heart Healthy Diet Activities you can perform: Regular-No Restrictions Follow up Referrals: SNF/LONG-TERM/ New Medications: Insulin Aspart Inj (Novolog Inj) 1,000 Unit/10 Ml Vial 1-9 UNITS SQ ACHS for Blood Sugar Management, #10 ML 0 Refills Max dose at bedtime:( )units; sugars less than 70,(0)units; sugars 150-199,(1) unit; sugars 200-249,(3) units; sugars 250-299,(5) units; sugars 300-349,(7) units; sugars greater than 349,(9) units Lactobacillus Acidophilus (Lactinex) 1 Chew 1 TAB CHEW TID for Nutritional Supplement for 10 Days, TAB 0 Refills Clotrimazole Topical (Clotrimazole AF Topical) 1% Cream 1 APPLIC TOPICAL Q8HR for Infection, #1 TUBE Diltiazem CD 24 HR (Diltiazem CD 24 HR) 120 Mg Caper 120 MG PO DAILY for Heart, #30 CAP Famotidine (Famotidine) 20 Mg Tab 10 MG PO BID for Reflux, #60 TAB Metoprolol Tartrate (Metoprolol Tartrate) 25 Mg Tab 25 MG PO Q8HR for Heart, #90 TAB Continued Medications: Acetylcysteine Liq/Neb (Acetylcysteine Liq/Neb) 200 mg/ml Soln 4 ML NEB Q8HR PRN for MUCOUS SECRETIONS, NEBULE 0 Refills Albuterol Neb (Albuterol Neb) 2.5 Mg/3 Ml Neb 2.5 MG NEB Q4HR PRN for SHORTNESS OF BREATH, #60 NEBULE 0 Refills While awake Alprazolam (Xanax) 1 Mg Tab 1 MG PO BID PRN for ANXIETY, #20 TAB 0 Refills Arformoterol Neb (Brovana Neb) 15 Mcg/2 Ml Vial 15 MCG NEB BID for COPD, #60 NEBULE Maintenance treatment of bronchoconstriction in COPD. Glucagon (Rdna) Inj Kit (Glucagen Hypokit Inj Kit) 1 Mg Kit 1 MG IM ONCE PRN for HYPOGLYCEMIA, #1 KIT 0 Refills Levalbuterol Neb (Levalbuterol Neb) 1.25 Mg/3 Ml Neb 1.25 MG NEB Q4HR NEB PRN for SOB/WHEEZING, #120 NEBULE Linezolid (Linezolid) 600 Mg Tab 600 MG PO Q12H for Infection, #11 TAB 0 Refills (This prescription has been renewed) Ondansetron Odt (Zofran Odt) 4 Mg Tab 4 MG SL Q6HR PRN for NAUSEA OR VOMITING, #30 TAB 0 Refills Pregabalin (Lyrica) 75 Mg Cap 75 MG PO DAILY, #30 CAP 0 Refills Rivaroxaban (Xarelto) 10 Mg Tab 10 MG PO DAILY for Blood Clot Prevention, TAB 0 Refills Sennosides (Sennosides) 8.6 Mg Tab 17.2 MG PO BID for Constipation, TAB 0 Refills Tamsulosin (Flomax) 0.4 Mg Cap 0.4 MG PO HS for Manage Prostate Problems, #30 CAP 0 Refills Temazepam (Restoril) 15 Mg Cap 15 MG PO HS PRN for INSOMNIA, #30 CAP 0 Refills Discontinued Medications: Budesonide Neb (Budesonide Neb) 0.5 Mg/2 Ml Neb 0.5 MG NEB BID for COPD, #30 NEBULE 0 Refills Diltiazem (Cardizem) 30 Mg Tab 30 MG PO Q6HR for Regulate Heart Beat, #120 TAB Furosemide (Furosemide) 40 Mg Tab 40 MG PO DAILY for Prevent Heart Failure, #30 TAB Hydrocodone-Acetaminophen (Hydrocodone-Acetaminophen) 5-325 mg Tab 1 TAB PO Q6H PRN for PAIN, #10 TAB 0 Refills Hydrocortisone Acetate Supp (Anucort-Hc Supp) 25 Mg Supp 25 MG RECTAL Q12HR for Hemorrhoids, SUPP 0 Refills Insulin Glargine Inj (Lantus Inj) 100 Unit/Ml Inj 40 UNITS SQ Q12HR for DM Insulin Lispro (Human) Inj (Humalog Inj) 1,000 Unit/10 Ml Vial 4-16 UNITS SQ ACHS for Blood Sugar Management, #1 VIAL 0 Refills Sliding scale: 70-150=0 units, 151-200=4 units, 201-250=8 units, 251-300=10 units, 301-350=12 units, 351-400=16 units, 401 + Notify Levalbuterol Neb (Levalbuterol Neb) 1.25 Mg/3 Ml Neb 1.25 MG NEB Q6HR WHILE AWAKE NEB for Breathing Treatment, #120 NEBULE Levofloxacin (Levofloxacin) 750 Mg Tab 750 MG PO DAILY for Infection, #14 TAB 0 Refills Metoclopramide (Reglan) 10 Mg Tab 10 MG PO Q6HR PRN for NAUSEA, #120 TAB 0 Refills Metolazone (Metolazone) 2.5 Mg Tab 2.5 MG PO DAILY, #30 TAB 0 Refills Metoprolol Tartrate (Metoprolol Tartrate) 25 Mg Tab 12.5 MG PO BID, #60 TAB 0 Refills Miconazole Nitrate Powder (Lotrimin AF Deodorant Powder) 2 % Aerp 1 APPLIC TOPICAL BID Apply to skin folds every day and evening shift for redness Multiple Vitamins W/ Minerals (One Daily-Minerals) 1 Tab 1 TAB PO DAILY for Nutritional Supplement, #100 TAB 0 Refills Mupirocin Topical (Bactroban Topical) 2% Oint 1 APPL TOPICAL BID for Mgmt Bacterial Infection, #1 TUBE 0 Refills Apply to trach wound Omeprazole (Omeprazole) 20 Mg Tab 20 MG PO DAILY, #30 TAB 0 Refills Oxycodone (Oxycodone) 5 Mg Cap 5 MG PO Q6H PRN for PAIN, #15 CAP 0 Refills Potassium Chloride Microencaps (Potassium Chloride Microencaps) 20 Meq Tab 40 MEQ PO QID for Electrolyte Replacement, #120 TAB Prednisone (Prednisone) 20 Mg Tab 20 MG PO DAILY for COPD, TAB 0 Refills Tejinder Cavanaugh DO Sep 24, 2017 12:01
[2017-09-24 12:42] LABS: HEMATOCRIT 35.1 % (35.0-46.0); MEAN CELL VOLUME 86.5 FL (80.0-100.0); MEAN CORPUSCULAR HEMOGLOBIN 28.3 PG (27.0-34.0); MEAN CORPUSCULAR HGB CONC 32.7 % (32.0-36.0); PLATELET COUNT 160 TH/MM3 (150-450); RED BLOOD COUNT 4.06 MIL/MM3 (4.00-5.30); RED CELL DISTRIBUTION WIDTH 18.5 % (11.6-17.2); REVIEW FLAG FINAL
== END 2017-09-24 16:34 | DRG 208 ==
LOC: NEPE 01:35 → NEDA 02:28 → HIMN 03:55 → N05B 09-19 19:31
PROVIDERS: ADMIT Hospitalist; ATTEND Hospitalist
PROC: 5A1945Z Respiratory Ventilation, 24-96 Consecutive Hours (ICD-10-PCS; principal; 2017-09-15)
PROC: 0BH17EZ Insertion of Endotracheal Airway into Trachea, Via Natural or Artificial Opening (ICD-10-PCS; 2017-09-15)
DX: J96.21 Acute and chronic respiratory failure with hypoxia (principal); J15.212 Pneumonia due to Methicillin resistant Staphylococcus aureus; G93.40 Encephalopathy, unspecified; I11.0 Hypertensive heart disease with heart failure; J44.0 Chronic obstructive pulmonary disease with (acute) lower respiratory infection; I50.9 Heart failure, unspecified; I48.91 Unspecified atrial fibrillation; Z68.43 Body mass index [BMI] 50.0-59.9, adult; E66.2 Morbid (severe) obesity with alveolar hypoventilation; J45.909 Unspecified asthma, uncomplicated; E78.5 Hyperlipidemia, unspecified; K21.9 Gastro-esophageal reflux disease without esophagitis; E11.9 Type 2 diabetes mellitus without complications; I10 Essential (primary) hypertension; K42.9 Umbilical hernia without obstruction or gangrene; T40.2X1A Poisoning by other opioids, accidental (unintentional), initial encounter; E11.65 Type 2 diabetes mellitus with hyperglycemia; R19.7 Diarrhea, unspecified; G47.00 Insomnia, unspecified; Y95 Nosocomial condition; Z79.01 Long term (current) use of anticoagulants; Z79.4 Long term (current) use of insulin; Z88.0 Allergy status to penicillin
CPT/HCPCS: 36600; 51702; 71010; 80048; 80053; 80202; 81001; 82805; 82948; 83036; 83605; 83735; 84100; 84132; 84484; 85007; 85025; 85027; 85610; 86403; 87040; 87070; 87077; 87086; 87147; 87186; 87205; 87449; 87641; 93005; 94002; 94003; 94640; 96365; 96375; 99292; J0330; J0456; J1815; J2250; J2310; J2405; J2543; J2920; J3370; J3480; J7030; J7040; J7050; J7608

== ENCOUNTER 2017-11-15 11:28 | Inpatient (IN) | payer MEDICARE, OTHER ==
[~2017-11-15] VITALS: Ht 167.6 cm; Wt 167.9 kg
[2017-11-15] VITALS (25 sets, daily range): BP systolic 35–130; BP diastolic 19–60; PULSE 122–160; RESP 0–15; TEMP 99.9–102.7; O2SAT 0–100
[~2017-11-15 11:28] MED LIST changes: -ANUC25SU RECTAL; -BACT2OIN TOPICAL; -BUDE0.5S NEB; +CLOT1CRE8 TOPICAL; +DEXTROSE 50% IN WATER 50 ML SYRINGE IV ONE; +DILT120C50 PO; -DILT31TA PO; +EPINEPHrine HCL (1:10,000) 1 MG/10 ML SYRINGE IV ONE; +FAMO20TA2 PO; -FURO40TA PO; -HUMALOG SQ; -HYDR-3516 PO; +LACTCHW3 CHEW; -LANTUS2P SQ; -LEVO750T33 PO; -LOTR2AER2 TOPICAL; -METO2.5T PO; +NOVOLOGP2 SQ; -OMEP20TA93 PO; -ONETAB22 PO; -OXYC1CAP PO; -POTA20TA5 PO; -PRED20 PO; -REGL10TA5 PO
[2017-11-15] MEDS ORDERED: NOREPINEPHRINE 4 MG/4 ML AMP ONE (11:43)
[2017-11-15] MEDS ORDERED: PROPOFOL 1000 MG/100 ML INJ 100 ML IV PRN (11:45)
--- NOTE | 2017-11-15 12:03 | PD ---
HPI Chief Complaint: Respiratory Distress Time Seen by Provider: 11:33 Travel History International Travel<30 days: No Contact w/Intl Traveler<30days: No Traveled to known affect area: No History of Present Illness HPI 67-year-old female was brought in by EMS for respiratory failure. Patient resides at local residential rehabilitation facility. Patient has history COPD. Patient's found unresponsive and apneic this morning. EMS was called. Patient was intubated at the scene. Patient was transported to ED for evaluation. EMS personnel was able to feel carotid pulse. Unable to obtain blood pressure reading at the scene. PFSH Past Medical History Hx Anticoagulant Therapy: Yes (XARELTO ) Asthma: Yes Atrial Fibrillation: Yes Heart Rhythm Problems: Yes Cardiovascular Problems: Yes (HTN) High Cholesterol: Yes Congestive Heart Failure: Yes Diminished Hearing: No GERD: Yes Hiatal Hernia: Yes Hypertension: Yes Respiratory: Yes Immunizations Current: No Pneumonia: Yes ?: Not Menopausal: Yes Past Surgical History Abdominal Surgery: Yes (HIATAL HERNIA ) Appendectomy: Yes Hysterectomy: Yes Social History Alcohol Use: No Tobacco Use: No Substance Use: No Allergies-Medications (Allergen,Severity, Reaction): Coded Allergies: penicillin G (Unverified Allergy, Severe, 05/29/17) Reported Meds & Prescriptions Reported Meds & Active Scripts Active Lactinex (Lactobacillus Acidophilus) 1 Chew 1 Tab CHEW TID 10 Days Clotrimazole AF Topical (Clotrimazole) 1% Cream 1 Applic TOPICAL Q8HR Famotidine 20 Mg Tab 10 Mg PO BID Metoprolol Tartrate 25 Mg Tab 25 Mg PO Q8HR Xanax (Alprazolam) 1 Mg Tab 1 Mg PO BID PRN Reported Zoloft (Sertraline HCl) 100 Mg Tab 100 Mg PO DAILY Xopenex Neb (Levalbuterol HCl) 1.25 Mg/3 Ml Neb 1.25 Mg NEB Q4HR Vitamin C (Ascorbic Acid) 500 Mg Capsule 500 Mg PO BID Promethazine Inj (Promethazine HCl) 25 Mg/Ml Inj 25 Mg IM DAILY PRN Potassium Chloride ER (Potassium Chloride) 20 Meq Tab 20 Meq PO DAILY Nystatin Topical (Nystatin) 100,000 unit/gm Cream 1 Applic TOPICAL Q8HR Novolin R Inj (Insulin Human Regular) 1,000 Unit/10 Ml Vial 0 SQ DIRECTED Sliding Scale As Directed. One Daily Plus Minerals (Multivitamin with Minerals) 1 Each Tablet Hydrocodone-Acetaminophen 5-325 mg Tab 1 Tab PO Q6H PRN Levemir Inj (Insulin Detemir) 1,000 unit/ 10 ML Vial 40 Units SQ BID Do not mix with any other Insulin. Lasix (Furosemide) 40 Mg Tab 40 Mg PO DAILY Hydroxyzine HCl 25 Mg Tab 25 Mg PO Q8HR Perforomist Neb (Formoterol Fumarate) 20 Mcg/2 Ml Neb 1 Nebule INH BID Diltiazem (Diltiazem HCl) 90 Mg Tab 90 Mg PO DAILY Budesonide Neb 0.5 Mg/2 Ml Neb 0.5 Mg NEB Q12HR NEB Zofran Odt (Ondansetron Odt) 4 Mg Tab 4 Mg SL Q6HR PRN Restoril (Temazepam) 15 Mg Cap 15 Mg PO HS PRN Sennosides 8.6 Mg Tab 17.2 Mg PO BID Glucagen Hypokit Inj Kit (Glucagon (Rdna) Inj Kit) 1 Mg Kit 1 Mg IM ONCE PRN Flomax (Tamsulosin HCl) 0.4 Mg Cap 0.4 Mg PO HS Albuterol Neb (Albuterol Sulfate) 2.5 Mg/3 Ml Neb 2.5 Mg NEB Q4HR PRN While awake Xarelto (Rivaroxaban) 10 Mg Tab 10 Mg PO DAILY Acetylcysteine Liq/Neb (Acetylcysteine) 200 mg/ml Soln 4 Ml NEB Q8HR PRN Lyrica (Pregabalin) 75 Mg Cap 75 Mg PO DAILY Review of Systems ROS Limitations: Intubated, Altered Mental Status, Unresponsive General / Constitutional: No: Fever Eyes: No: Visual changes HENT: No: Headaches Cardiovascular: No: Chest Pain or Discomfort Respiratory: No: Shortness of Breath Gastrointestinal: No: Abdominal Pain Genitourinary: No: Dysuria Musculoskeletal: No: Pain Skin: No Rash Neurologic: No: Weakness Psychiatric: No: Depression Endocrine: No: Polydipsia Hematologic/Lymphatic: No: Easy Bruising Physical Exam Narrative GENERAL: Well-nourished, well-developed patient. SKIN: Focused skin assessment warm/dry. HEAD: Normocephalic. EYES: No scleral icterus. No injection or drainage. Pupils 1.5 mm equal sluggishly reactive. NECK: Supple, trachea midline. No JVD or lymphadenopathy. CARDIOVASCULAR: Regular rate and rhythm without murmurs, gallops, or rubs. RESPIRATORY: Breath sounds equal bilaterally on vent. GASTROINTESTINAL: Abdomen soft, nondistended. MUSCULOSKELETAL: No cyanosis, or edema. BACK: No obvious deformity. No CVA tenderness. Neurologic exam: Patient is intubated. Unresponsive. Data Data Last Documented VS Vital Signs Date Time Temp Pulse Resp B/P (MAP) Pulse Ox O2 Delivery O2 Flow Rate FiO2 11/15/17 13:05 160 14 92/50 (64) 100 Ventilator 100 11/15/17 12:30 102.7 Orders Orders Electrocardiogram (11/15/17 11:34) Complete Blood Count With Diff (11/15/17 11:34) Comprehensive Metabolic Panel (11/15/17 11:34) Creatine Kinase (Cpk) (11/15/17 11:34) Troponin I (11/15/17 11:34) B-Type Natriuretic Peptide (11/15/17 11:34) Prothrombin Time / Inr (Pt) (11/15/17 11:34) Act Partial Throm Time (Ptt) (11/15/17 11:34) Blood Culture (11/15/17 11:34) Urinalysis - C+S If Indicated (11/15/17 11:34) Chest, Single Ap (11/15/17 11:34) Ct Brain W/O Iv Contrast(Rout) (11/15/17 11:34) Iv Access Insert/Monitor (11/15/17 11:34) Ecg Monitoring (11/15/17 11:34) Oximetry (11/15/17 11:34) Urinary Catheter Insert/Apply (11/15/17 11:34) Jonathan-Gastric Tube Insert/Mon (11/15/17 11:34) Restraints Non-Violent CHERYL.Q3H (11/15/17 11:34) Propofol 1000 Mg/100 Ml Inj (Diprivan 10 (11/15/17 11:45) Norepinephrine Inj (Levophed Inj) (11/15/17 11:43) Lactic Acid (11/15/17 11:56) Sodium Chlor 0.9% 1000 Ml Inj (Ns 1000 M (11/15/17 12:15) Sodium Chlor 0.9% 1000 Ml Inj (Ns 1000 M (11/15/17 12:15) Vancomycin Inj (Vancomycin Inj) (11/15/17 12:15) Levofloxacin 750 Mg Premix Inj (Levaquin (11/15/17 12:15) Norepinephrine-Dextrose Drip (Levophed-D (11/15/17 12:15) Terbutaline Inj (Brethine Inj) (11/15/17 12:15) Lactic Acid Sepsis Protocol (11/15/17 12:03) Fentanyl Drip (Fentanyl Drip) (11/15/17 12:30) Diltiazem Inj (Cardizem Inj) (11/15/17 12:30) Diltiazem Inj (Cardizem Inj) (11/15/17 12:30) Acetaminophen Supp (Tylenol Supp) (11/15/17 12:30) Dopamine Inj Premix (Dopamine Inj Premix (11/15/17 12:45) Terbutaline Inj (Brethine Inj) (11/15/17 12:45) Urine Culture (11/15/17 11:39) Ct Thorax/ Chest Wo Iv Contras (11/15/17 12:55) Aztreonam Inj (Azactam Inj) (11/15/17 13:15) ^ Medication Alert (11/15/17 13:03) ^ Discontinue (11/15/17 13:03) Dextrose 5% In Wate... W/Amiodarone Inj (11/15/17 13:03) Dextrose 5% In Wate... W/Amiodarone Inj (11/15/17 13:13) Vital Signs (Adult) CHERYL.Q4H (11/15/17 13:03) Admit Order (Ed Use Only) (11/15/17 13:04) Labs Laboratory Tests Test 11/15/17 11:39 11/15/17 11:47 11/15/17 11:50 Urine Color YELLOW Urine Turbidity CLOUDY Urine pH 6.0 Urine Specific [place] 1.013 Urine Protein 300 mg/dL Urine Glucose (UA) NEG mg/dL Urine Ketones NEG mg/dL Urine Occult Blood SMALL Urine Nitrite NEG Urine Bilirubin NEG Urine Urobilinogen LESS THAN 2.0 MG/DL Urine Leukocyte Esterase LARGE Urine RBC 65 /hpf Urine WBC /hpf Urine WBC Clumps MOD Urine Squamous Epithelial Cells 20 /hpf Urine Bacteria MANY /hpf Microscopic Urinalysis Comment CULTURE INDICATED White Blood Count 52.8 TH/MM3 Red Blood Count 4.11 MIL/MM3 Hemoglobin 11.1 GM/DL Hematocrit 37.2 % Mean Corpuscular Volume 90.5 FL Mean Corpuscular Hemoglobin 26.9 PG Mean Corpuscular Hemoglobin Concent 29.7 % Red Cell Distribution Width 20.7 % Platelet Count 309 TH/MM3 Mean Platelet Volume 8.2 FL Neutrophils (%) (Auto) 94.3 % Lymphocytes (%) (Auto) 2.1 % Monocytes (%) (Auto) 3.6 % Eosinophils (%) (Auto) 0.0 % Basophils (%) (Auto) 0.0 % Neutrophils # (Auto) 49.8 TH/MM3 Lymphocytes # (Auto) 1.1 TH/MM3 Monocytes # (Auto) 1.9 TH/MM3 Eosinophils # (Auto) 0.0 TH/MM3 Basophils # (Auto) 0.0 TH/MM3 CBC Comment AUTO DIFF Differential Total Cells Counted 100 Neutrophils % (Manual) 64 % Band Neutrophils % 18 % Lymphocytes % 2 % Monocytes % 5 % Neutrophils # (Manual) 49.1 TH/MM3 Metamyelocytes 9 % Myelocytes 2 % Differential Comment FINAL DIFF MANUAL Toxic Vacuolation PRESENT Platelet Estimate NORMAL Platelet Morphology Comment NORMAL Basophilic Stippling FAINT Stomatocytes 1+ Prothrombin Time 13.9 SEC Prothromb Time International Ratio 1.4 RATIO Activated Partial Thromboplast Time 28.9 SEC Blood Urea Nitrogen 20 MG/DL Creatinine 2.87 MG/DL Random Glucose 63 MG/DL Total Protein 5.5 GM/DL Albumin 1.8 GM/DL Calcium Level 8.4 MG/DL Alkaline Phosphatase 98 U/L Aspartate Amino Transf (AST/SGOT) 26 U/L Alanine Aminotransferase (ALT/SGPT) 12 U/L Total Bilirubin 0.2 MG/DL Sodium Level 144 MEQ/L Potassium Level 4.2 MEQ/L Chloride Level 99 MEQ/L Carbon Dioxide Level 30.2 MEQ/L Anion Gap 15 MEQ/L Estimat Glomerular Filtration Rate 16 ML/MIN Total Creatine Kinase 32 U/L Troponin I LESS THAN 0.02 NG/ML B-Type Natriuretic Peptide 336 PG/ML Lactic Acid Level 6.9 mmol/L MDM Medical Decision Making Medical Screen Exam Complete: Yes Emergency Medical Condition: Yes Interpretation(s) EKG shows atrial fibrillation with RVR rate 164. Last Impressions Chest X-Ray 11/15/17 1134 Signed Impressions: Service Date/Time: November 12:27 - CONCLUSION: ET tube 1.3 cm above the makeda in a somewhat low position. This could be pulled back 2-3 cm to be in a better position. Perry Frye MD 1329 PM. CBC WBC 52.8. Hemoglobin 11.1 hematocrit 37.2. MCV 90.5. 94 neutrophil. BUN 20. Creatinine 2.87. GFR 16. Glucose 63. Lactic acid 6.9. Cardiac enzymes are normal. BNP 336. INR 1.4. UA positive with WBC and bacteria. Differential Diagnosis Differential diagnosis including septic shock, TIA, CVA, electrolyte imbalance, dehydration, pneumonia, UTI, GA. Narrative Course 67-year-old female was found unresponsive this morning. Patient was intubated. Patient was hypotensive. Triple-lumen central line started right femoral vein. Patient given 2 L IV fluid normal saline solution. Levophed And dopamine drip started. Fentanyl drip for sedation. Vancomycin 1 g IV. Levaquin 750 minute gram IV. Azactam 1 g IV. Amiodarone bolus and drip started for A. fib with RVR. Augie Beavers MD Nov 15, 2017 12:03
[2017-11-15] MEDS ORDERED: SODIUM CHLOR 0.9% 1000 ML INJ 1,000 ML IV ONE ×2 (12:15)
[2017-11-15] MEDS ORDERED: VANCOMYCIN INJ 1,000 MG in SODIUM CHLOR 0.9% 250 ML INJ 250 ML IV ONE (12:15)
[2017-11-15] MEDS ORDERED: LEVOFLOXACIN 750 MG PREMIX INJ 150 ML IV ONE (12:15)
[2017-11-15] MEDS ORDERED: TERBUTALINE INJ 1 MG/ML AMP SQ PRN ×2 (12:15→12:45)
[2017-11-15 12:26] LABS: AUTOMATED NEUTROPHIL # 49.8 TH/MM3 (1.8-7.7); HEMATOCRIT 37.2 % (35.0-46.0); HEMOGLOBIN 11.1 GM/DL (11.6-15.3); LYMPH % 2.1 % (9.0-44.0); LYMPHOCYTE # 1.1 TH/MM3 (1.0-4.8); MEAN CELL VOLUME 90.5 FL (80.0-100.0); MEAN CORPUSCULAR HEMOGLOBIN 26.9 PG (27.0-34.0); MEAN PLATELET VOLUME 8.2 FL (7.0-11.0); MONO % 3.6 % (0.0-8.0); MONOCYTE # 1.9 TH/MM3 (0-0.9); NEUT % 94.3 % (16.0-70.0); PLATELET COUNT 309 TH/MM3 (150-450); RED BLOOD COUNT 4.11 MIL/MM3 (4.00-5.30); RED CELL DISTRIBUTION WIDTH 20.7 % (11.6-17.2); WHITE BLOOD COUNT 52.8 TH/MM3 (4.0-11.0)
[2017-11-15 12:27] LABS: MEAN CORPUSCULAR HGB CONC 29.7 % (32.0-36.0)
[2017-11-15] MEDS ORDERED: DILTIAZEM HCL 25 MG/5 ML VIAL IV PUSH ONE (12:30)
[2017-11-15] MEDS ORDERED: ACETAMINOPHEN 650 MG SUPP RECTAL ONE (12:30)
[2017-11-15 12:34] LABS: INTERNATIONAL NORMALIZED RATIO 1.4 RATIO; PROTHROMBIN TIME - PATIENT 13.9 SEC (9.8-11.6)
[2017-11-15] MEDS ORDERED: LEVEMIR SQ (12:34)
[2017-11-15] MEDS ORDERED: BUDE0.5S NEB (12:34)
[2017-11-15] MEDS ORDERED: LEVA3NEB12 NEB (12:34)
[2017-11-15] MEDS ORDERED: POTA-163 PO (12:34)
[2017-11-15] MEDS ORDERED: DILT90TA PO (12:34)
[2017-11-15] MEDS ORDERED: NYST15T TOPICAL (12:34)
[2017-11-15] MEDS ORDERED: FORM20NE INH (12:34)
[2017-11-15] MEDS ORDERED: ONETAB22 (12:34)
[2017-11-15] MEDS ORDERED: FURO1TAB60 PO (12:34)
[2017-11-15] MEDS ORDERED: ZOLO100T PO (12:34)
[2017-11-15] MEDS ORDERED: HYDR-3516 PO (12:34)
[2017-11-15] MEDS ORDERED: HYDR-3133 PO (12:34)
[2017-11-15] MEDS ORDERED: ASCO500C PO (12:34)
[2017-11-15] MEDS ORDERED: [UNRECOGNIZED DRUG - CODE] IM (12:34)
[2017-11-15] MEDS ORDERED: NOVORP2 SQ (12:34)
[2017-11-15 12:41] LABS: ALBUMIN 1.8 GM/DL (3.4-5.0); ALT (GPT) 12 U/L (10-53); AST (GOT) 26 U/L (15-37); BICARBONATE 30.2 MEQ/L (21.0-32.0); BLOOD UREA NITROGEN 20 MG/DL (7-18); CALCIUM 8.4 MG/DL (8.5-10.1); CHLORIDE 99 MEQ/L (98-107); CREATININE 2.87 MG/DL (0.50-1.00); GLOMERULAR FILTRATION RATE 16 ML/MIN (>89); GLUCOSE,RANDOM 63 MG/DL (74-106); SODIUM (NA) 144 MEQ/L (136-145)
[2017-11-15 12:45] LABS: ALKALINE PHOSPHATASE 98 U/L (45-117); TOTAL BILIRUBIN ADULT 0.2 MG/DL (0.2-1.0); TOTAL PROTEIN 5.5 GM/DL (6.4-8.2); TROPONIN I LESS THAN 0.02 NG/ML (0.02-0.05)
[2017-11-15] MEDS ORDERED: DOPamine INJ PREMIX 500 ML IV PRN (12:45)
[2017-11-15 12:50] LABS: BACTERIA, URINE MANY /hpf; BILIRUBIN, URINE NEG (NEG); BLOOD, URINE SMALL (NEG); GLUCOSE,URINE NEG (NEG); KETONE, URINE NEG (NEG); NITRITE,URINE NEG (NEG); SQUAMOUS EPITHELIAL CELL URINE 20 /hpf (0-5); URINE LEUKOCYTE ESTERASE LARGE (NEG); WHITE BLOOD CELL CLUMPS MOD
[2017-11-15 12:51] LABS: URINE COLOR YELLOW (YELLW/STRAW)
[2017-11-15] MEDS: fentaNYL DRIP 250 ML IV PRN (12:53)
[2017-11-15 12:56] LABS: BANDS 18 % (0-6); LYMPHOCYTES 2 % (9-44); METAMYELOCYTES 9 % (0-1); MONOCYTES 5 % (0-8); MYELOCYTES 2 % (0-0); NEUTROPHIL # MANUAL DIFF 49.1 TH/MM3 (1.8-7.7); POLYS (SEG NEUTROPHILS) 64 % (16-70)
[2017-11-15 12:57] LABS: TOXIC VACUOLATION PRESENT (NONE SEEN)
--- NOTE | 2017-11-15 12:57 | RADRPT ---
EXAM DATE/TIME: 11/15/2017 12:27 [facility] COMPARISON: CHEST SINGLE AP, September 24, 2017, 9:26. INDICATIONS : Post intubation. MEDICAL HISTORY : Hypertension. Diabetes mellitus type II. SURGICAL HISTORY : None. ENCOUNTER: Initial ACUITY: 1 week PAIN SCORE: 4/10 LOCATION: Bilateral chest FINDINGS: The ET tube tip is 1.3 cm from the makeda which is in a somewhat low position. The heart size is enla rged. There is increased density at the left base. The patient appears to be rotated towards the left . The right lung appears grossly clear. CONCLUSION: ET tube 1.3 cm above the makeda in a somewhat low position. This could be pulled back 2-3 cm to be in a better position. Perry Frye MD on November 15, 2017 at 12:53 Board Certified Radiologist. This report was verified electronically.
[2017-11-15 12:58] LABS: STOMATOCYTES 1+ (NORMAL)
[2017-11-15] MEDS ORDERED: AMIODARONE INJ 150 MG in DEXTROSE 5% IN WATER 100ML INJ 100 ML IV ONE ×2 (13:03)
[2017-11-15] MEDS ORDERED: AMIODARONE INJ 450 MG in DEXTROSE 5% IN WATE(EXCEL) INJ 241 ML IV PRN ×2 (13:13)
[2017-11-15] MEDS ORDERED: AZTREONAM INJ 1,000 MG in SODIUM CHLORIDE 0.9% INJ 100 ML IV ONE (13:15)
[2017-11-15] MEDS: DILTIAZEM INJ 125 MG in SODIUM CHLORIDE 0.9% INJ 100 ML IV PRN ×2 (13:30→23:28)
[2017-11-15] MEDS ORDERED: DEXTROSE 50% IN WATER 50 ML VIAL(D50) IV PUSH ONE (13:45)
[2017-11-15] MEDS ORDERED: MIDAZOLAM HCL 5 MG/ML VIAL (1 ML) ONE ×2 (13:49→14:02)
[2017-11-15] MEDS ORDERED: MIDAZOLAM HCL 5 MG/ML VIAL (1 ML) IV PUSH ONE (14:00)
[2017-11-15] MEDS ORDERED: SENNOSIDES 8.6 MG TAB PO PRN (14:00)
[2017-11-15] MEDS ORDERED: LACTULOSE SYRUP 20 GM/30 ML CUP PO PRN (14:00)
[2017-11-15] MEDS ORDERED: Vancomycin Consult Pharmacy 1 EA OTHER SCH (14:00)
[2017-11-15] MEDS ORDERED: BISACODYL 10 MG SUPP RECTAL PRN (14:00)
[2017-11-15] MEDS ORDERED: ONDANSETRON HCL 4 MG/2 ML VIAL IV PUSH PRN (14:00)
[2017-11-15] MEDS ORDERED: MAGNESIUM HYDROXIDE SUSP 30 ML CUP PO PRN (14:00)
[2017-11-15] MEDS ORDERED: CHLORHEXIDINE GLUCONATE 2 % 1 PACK (2 CLOTHS) TOP PRN (14:00)
[2017-11-15] MEDS ORDERED: DEXTROSE 50% IN WATER 50 ML VIAL(D50) IV PUSH PRN (14:00)
[2017-11-15] MEDS ORDERED: MISCELLANEOUS NURSING INFORMATION XX SCH (14:00)
--- NOTE | 2017-11-15 14:22 | HHI.HP ---
HPI Service Critical Care Medicine Primary Care Physician Unknown Admission Diagnosis septic shock. Respiratory failure. UTI. Chronic kidney disease. Diagnosis: Chief Complaint: altered mental status Travel History International Travel<30 Days: No Contact w/Intl Traveler <30 Da: No Traveled to Known Affected Are: No History of Present Illness 67yF with super morbid obesity who has had multiple prior admissions for MRSA pneumonia and respiratory failure presents by EMS for recurrent respiratory failure. She resides in a SNF. She was found unresponsive this morning. She was intubated in the field. In the emergency department she was hypotensive despite ivf resuscitation and required norepinephrine for vasopressor support. she has a wbc 52k, lactate of 6.9, Cr 2.87 (baseline 0.5, prior admission discharge was 1.8). u/a concerning for probable UTI as well. Review of Systems ROS Limitations: Clinical Condition, Intubated, Altered Mental Status Past Family Social History Allergies: Coded Allergies: penicillin G (Unverified Allergy, Severe, 05/29/17) Past Medical History Chronic asthma home oxygen Atrial fibrillation Hyperlipidemia Hypertension excellent diabetes mellitus GERD Morbid obesity BMI 55 recurrent MRSA pneumonia prior tracheostomy 2016, now decannulated Past Surgical History Appendectomy Hernia surgery Tracheostomy placement Reported Medications Lactinex (Lactobacillus Acidophilus) 1 Chew 1 Tab CHEW TID 10 Days Clotrimazole AF Topical (Clotrimazole) 1% Cream 1 Applic TOPICAL Q8HR Famotidine 20 Mg Tab 10 Mg PO BID Metoprolol Tartrate 25 Mg Tab 25 Mg PO Q8HR Xanax (Alprazolam) 1 Mg Tab 1 Mg PO BID PRN Zoloft (Sertraline HCl) 100 Mg Tab 100 Mg PO DAILY Xopenex Neb (Levalbuterol HCl) 1.25 Mg/3 Ml Neb 1.25 Mg NEB Q4HR Vitamin C (Ascorbic Acid) 500 Mg Capsule 500 Mg PO BID Promethazine Inj (Promethazine HCl) 25 Mg/Ml Inj 25 Mg IM DAILY PRN Potassium Chloride ER (Potassium Chloride) 20 Meq Tab 20 Meq PO DAILY Nystatin Topical (Nystatin) 100,000 unit/gm Cream 1 Applic TOPICAL Q8HR Novolin R Inj (Insulin Human Regular) 1,000 Unit/10 Ml Vial 0 SQ DIRECTED Sliding Scale As Directed. One Daily Plus Minerals (Multivitamin with Minerals) 1 Each Tablet Hydrocodone-Acetaminophen 5-325 mg Tab 1 Tab PO Q6H PRN Levemir Inj (Insulin Detemir) 1,000 unit/ 10 ML Vial 40 Units SQ BID Do not mix with any other Insulin. Lasix (Furosemide) 40 Mg Tab 40 Mg PO DAILY Hydroxyzine HCl 25 Mg Tab 25 Mg PO Q8HR Perforomist Neb (Formoterol Fumarate) 20 Mcg/2 Ml Neb 1 Nebule INH BID Diltiazem (Diltiazem HCl) 90 Mg Tab 90 Mg PO DAILY Budesonide Neb 0.5 Mg/2 Ml Neb 0.5 Mg NEB Q12HR NEB Zofran Odt (Ondansetron Odt) 4 Mg Tab 4 Mg SL Q6HR PRN Restoril (Temazepam) 15 Mg Cap 15 Mg PO HS PRN Sennosides 8.6 Mg Tab 17.2 Mg PO BID Glucagen Hypokit Inj Kit (Glucagon (Rdna) Inj Kit) 1 Mg Kit 1 Mg IM ONCE PRN Flomax (Tamsulosin HCl) 0.4 Mg Cap 0.4 Mg PO HS Albuterol Neb (Albuterol Sulfate) 2.5 Mg/3 Ml Neb 2.5 Mg NEB Q4HR PRN While awake Xarelto (Rivaroxaban) 10 Mg Tab 10 Mg PO DAILY Acetylcysteine Liq/Neb (Acetylcysteine) 200 mg/ml Soln 4 Ml NEB Q8HR PRN Lyrica (Pregabalin) 75 Mg Cap 75 Mg PO DAILY Active Ordered Medications See MAR Family History Father had heart disease, diabetes, emphysema Mother had mental health issues Social History No alcohol or tobacco use Physical Exam Vital Signs Vital Signs Date Time Temp Pulse Resp B/P (MAP) Pulse Ox O2 Delivery O2 Flow Rate FiO2 11/15/17 13:56 11/15/17 13:55 101.0 11/15/17 13:54 122 14 100/60 (73) 100 Ventilator 60 11/15/17 13:51 145 90/56 11/15/17 13:28 152 14 96/53 (67) 100 Ventilator 60 11/15/17 13:24 155 90/52 11/15/17 13:05 160 14 92/50 (64) 100 Ventilator 100 11/15/17 12:57 159 14 118/49 (72) 100 Ventilator 100 11/15/17 12:51 125 14 93/43 (60) 100 Ventilator 100 11/15/17 12:46 158 14 84/52 (63) 100 Ventilator 100 11/15/17 12:41 130 14 73/45 (54) 100 Ventilator 100 11/15/17 12:30 102.7 135 14 77/44 (55) 100 Ventilator 100 11/15/17 12:23 124 14 91/52 (65) 100 Ventilator 100 11/15/17 12:10 159 14 105/57 (73) 100 Ventilator 100 11/15/17 12:08 150 14 94/36 (55) 100 Ventilator 100 11/15/17 12:01 99.9 11/15/17 11:52 126 14 91/50 (64) 100 Ventilator 100 11/15/17 11:51 128 35/19 11/15/17 11:41 100 11/15/17 11:39 35/19 (24) 11/15/17 11:33 145 14 100 100 11/15/17 11:30 0 100 11/15/17 11:29 160 14 100 Physical Exam gen: super morbidly obese female, lying in bed, intubated, sedated heent: perrl. eomi. mucous membranes dry neck: unable to assess jvd due to large neck circumference. trachea midline chest: muffled breath sounds. equal chest rise. cv: tachycardic rate, irregularly irregular rhythm. afib by tele. abd: morbidly obese, soft, nontender, nondistended. no guarding. extr: good cap refill. right femoral triple lumen catheter, site clean and dry. neuro: RASS -3. withdraws to pain. does not follow commands. Laboratory Laboratory Tests Test 11/15/17 11:39 11/15/17 11:47 11/15/17 11:50 Urine Color YELLOW Urine Turbidity CLOUDY Urine pH 6.0 Urine Specific [place] 1.013 Urine Protein 300 Urine Glucose (UA) NEG Urine Ketones NEG Urine Occult Blood SMALL Urine Nitrite NEG Urine Bilirubin NEG Urine Urobilinogen LESS THAN 2.0 Urine Leukocyte Esterase LARGE Urine RBC 65 Urine WBC Urine WBC Clumps MOD Urine Squamous Epithelial Cells 20 Urine Bacteria MANY Microscopic Urinalysis Comment CULTURE INDICATED White Blood Count 52.8 Red Blood Count 4.11 Hemoglobin 11.1 Hematocrit 37.2 Mean Corpuscular Volume 90.5 Mean Corpuscular Hemoglobin 26.9 Mean Corpuscular Hemoglobin Concent 29.7 Red Cell Distribution Width 20.7 Platelet Count 309 Mean Platelet Volume 8.2 Neutrophils (%) (Auto) 94.3 Lymphocytes (%) (Auto) 2.1 Monocytes (%) (Auto) 3.6 Eosinophils (%) (Auto) 0.0 Basophils (%) (Auto) 0.0 Neutrophils # (Auto) 49.8 Lymphocytes # (Auto) 1.1 Monocytes # (Auto) 1.9 Eosinophils # (Auto) 0.0 Basophils # (Auto) 0.0 CBC Comment AUTO DIFF Differential Total Cells Counted 100 Neutrophils % (Manual) 64 Band Neutrophils % 18 Lymphocytes % 2 Monocytes % 5 Neutrophils # (Manual) 49.1 Metamyelocytes 9 Myelocytes 2 Differential Comment FINAL DIFF MANUAL Toxic Vacuolation PRESENT Platelet Estimate NORMAL Platelet Morphology Comment NORMAL Basophilic Stippling FAINT Stomatocytes 1+ Prothrombin Time 13.9 Prothromb Time International Ratio 1.4 Activated Partial Thromboplast Time 28.9 Blood Urea Nitrogen 20 Creatinine 2.87 Random Glucose 63 Total Protein 5.5 Albumin 1.8 Calcium Level 8.4 Alkaline Phosphatase 98 Aspartate Amino Transf (AST/SGOT) 26 Alanine Aminotransferase (ALT/SGPT) 12 Total Bilirubin 0.2 Sodium Level 144 Potassium Level 4.2 Chloride Level 99 Carbon Dioxide Level 30.2 Anion Gap 15 Estimat Glomerular Filtration Rate 16 Total Creatine Kinase 32 Troponin I LESS THAN 0.02 B-Type Natriuretic Peptide 336 Lactic Acid Level 6.9 Date/Time Source Procedure Growth Status 11/15/17 11:50 Blood Peripheral Aerobic Blood Culture Pending Received 11/15/17 11:50 Blood Peripheral Anaerobic Blood Culture Pending Received 11/15/17 11:39 Urine Clean Catch Urine Culture Pending Received Result Diagram: 11/15/17 1147 11/15/17 1147 Imaging Last Impressions Chest X-Ray 11/15/17 1134 Signed Impressions: Service Date/Time: November 12:27 - CONCLUSION: ET tube 1.3 cm above the makeda in a somewhat low position. This could be pulled back 2-3 cm to be in a better position. Perry Frye MD Septic Shock Reassessment Septic shock perfusion: reassessment completed Caprini VTE Risk Assessment Caprini VTE Risk Assessment: Mod/High Risk (score >= 2) Caprini Risk Assessment Model Point Value = 1 Point Value = 2 Point Value = 3 Point Value = 5 Age 41-60 Minor surgery BMI > 25 kg/m2 Swollen legs Varicose veins or History of unexplained or recurrent spontaneous Oral contraceptives or hormone replacement Sepsis (< 1 month) Serious lung disease, including pneumonia (< 1 month) Abnormal pulmonary function Acute myocardial infarction Congestive heart failure (< 1 month) History of inflammatory bowel disease Medical patient at bed rest Age 61-74 Arthroscopic surgery Major open surgery (> 45 min) Laparoscopic surgery (> 45 min) Malignancy Confined to bed (> 72 hours) Immobilizing plaster cast Central venous access Age >= 75 History of VTE Family history of VTE Factor V Leiden Prothrombin [id number] Lupus anticoagulant Anticardiolipin antibodies Elevated serum homocysteine Heparin-induced thrombocytopenia Other congenital or acquired thrombophilia Stroke (< 1 month) Elective arthroplasty Hip, pelvis, or leg fracture Acute spinal cord injury (< 1 month) Prophylaxis Regimen Total Risk Factor Score Risk Level Prophylaxis Regimen 0-1 Low Early ambulation 2 Moderate Order ONE of the following: *Sequential Compression Device (SCD) *Heparin 5000 units SQ BID 3-4 Higher Order ONE of the following medications: *Heparin 5000 units SQ TID *Enoxaparin/Lovenox 40 mg SQ daily (WT < 150 kg, CrCl > 30 mL/min) *Enoxaparin/Lovenox 30 mg SQ daily (WT < 150 kg, CrCl > 10-29 mL/min) *Enoxaparin/Lovenox 30 mg SQ BID (WT < 150 kg, CrCl > 30 mL/min) AND/OR *Sequential Compression Device (SCD) 5 or more Highest Order ONE of the following medications: *Heparin 5000 units SQ TID (Preferred with Epidurals) *Enoxaparin/Lovenox 40 mg SQ daily (WT < 150 kg, CrCl > 30 mL/min) *Enoxaparin/Lovenox 30 mg SQ daily (WT < 150 kg, CrCl > 10-29 mL/min) *Enoxaparin/Lovenox 30 mg SQ BID (WT < 150 kg, CrCl > 30 mL/min) AND *Sequential Compression Device (SCD) Assessment and Plan Assessment and Plan Assessment: This is a 67yF with super morbid obesity and a chronic debilitated course which has included multiple prior respiratory failures requiring mechanical ventilation, including a recent intubation a year ago requiring tracheostomy and LTAC admission who presents with septic shock, multiorgan failure, and recurrent healthcare associated pneumonia. admit to ICU. broad spectrum abx including anti-pseudomonal and MRSA coverage. will obtain CT chest to rule out para-pneumonic effusion/empyema. consult ID since they have been very involved in her prior care. Very critically ill at this time. Neuro: Metabolic Encephalopathy - frequent neuro checks - prop, fent for goal RASS -2. Resp: Acute hypoxic and hypercarbic respiratory failure Healthcare Associated Pneumonia - vent bundle, elevated hob, nebs - abx as below. - sputum cultures - no SBT today - wean fio2 for goal spo2 > 90% CV: Septic Shock Atrial fibrillation with rapid ventricular response - mivf @ 125 cc/hr - amiodarone load and bolus - cardizem drip - levophed and vasopressin for goal map > 65 mmHg. - will start vasopressin drip - may need stress dose steroids. Renal: Acute Kidney Injury - strict i/o's - monitor Cr on daily cbc FEN/GI: Super Morbid Obesity Lactic Acidosis Anion-gap Metabolic acidosis Acute intravascular volume overload - NPO while in shock - check pre-albumin - ivf - trend lactates - ICU electrolyte protocol when Cr improves. Heme/ID: Healthcare Associated Pneumonia History of prior MRSA pneumonia Urinary Tract Infection - Vancomycin with pharmacy dosing - Aztreonam - Levaquin - serrato culture - ID consult as they have been involved in her multiple prior admissions - CT chest to eval for possible para-pneumonic effusion. Endocrine: Hyperglycemia of Critical Illness - q6h SSI, med scale Prophylaxis: SCDs, SQH Pepcid Lines: - 2/1 ER placed right femoral TLC - [facility] Dispo: admit to ICU. critically ill. Critical care time: 59 minutes, exclusive of separately billable procedures. Code Status Full Code Christ Mullins MD Nov 15, 2017 14:22
--- NOTE | 2017-11-15 14:47 | RADRPT ---
EXAM DATE/TIME: 11/15/2017 14:13 [facility] COMPARISON: No previous studies available for comparison. INDICATIONS : Patient was found unreponsive,fever RADIATION DOSE: 56.35 CTDIvol (mGy) MEDICAL HISTORY : Hypertension. Cardiovascular disease SURGICAL HISTORY : Hysterectomy. ENCOUNTER: Initial ACUITY: 1 day PAIN SCALE: Non-responsive LOCATION: cranial TECHNIQUE: Multiple contiguous axial images were obtained of the head. Using automated exposure control and adj ustment of the mA and/or kV according to patient size, radiation dose was kept as low as reasonably a chievable to obtain optimal diagnostic quality images. DICOM format image data is available electro nically for review and comparison. FINDINGS: CEREBRUM: The ventricles are normal for age with mild to moderate atrophic change. Periventricular white matter lucencies are present characterized chronic small vessel ischemic change. No evidence of midline laurie ft, mass lesion, hemorrhage or acute infarction. No extra-axial fluid collections are seen. POSTERIOR FOSSA: The cerebellum and brainstem are intact. The 4th ventricle is midline. The cerebellopontine angle i s unremarkable. EXTRACRANIAL: The visualized portion of the orbits is intact. Large air-fluid levels are noted in both maxillary si nuses. There is mucosal thickening in the ethmoidal air cells. SKULL: The calvaria is intact. No evidence of skull fracture. CONCLUSION: 1. No acute hemorrhage or mass effect. 2. Atrophy and chronic small vessel ischemic change 3. Air-fluid levels in the maxillary sinuses most characteristic of acute sinusitis. Chintan Marshall MD on November 15, 2017 at 14:43 Board Certified Radiologist. This report was verified electronically.
--- NOTE | 2017-11-15 14:56 | RADRPT ---
EXAM DATE/TIME: 11/15/2017 14:24 [facility] COMPARISON: CHEST SINGLE AP, November 15, 2017, 12:27. CT THORAX W/O CONTRAST, January 15, 2017, 17:13. INDICATIONS : Found unresponsive, fever. Abnormal chest plain film exam with increased density at the left lung bas e. RADIATION DOSE: 21.08 CTDIvol (mGy) MEDICAL HISTORY : Hypertension. Cardiovascular disease SURGICAL HISTORY : Hysterectomy. ENCOUNTER: Initial ACUITY: 1 day PAIN SCALE: Non-responsive LOCATION: chest TECHNIQUE: Volumetric scanning of the chest was performed. Using automated exposure control and adjustment of t he mA and/or kV according to patient size, radiation dose was kept as low as reasonably achievable to obtain optimal diagnostic quality images. DICOM format image data is available electronically for r eview and comparison. Follow-up recommendations for detected pulmonary nodules are based at a minimum on nodule size and pa tient risk factors according to Fleischner Society Guidelines. FINDINGS: LUNGS: There is no pneumothorax. There is new consolidation in the posterior right upper lobe with air bronc hograms. Consolidation is again noted in the left lower lobe with air bronchograms. This is increased from the prior study. No concerning pulmonary nodule is visualized. PLEURAE: There is no pleural thickening or pleural effusion. MEDIASTINUM: The heart and great vessels demonstrate no acute abnormality. There is no mediastinal or hilar lymph adenopathy. An endotracheal tube is present with tip above the makeda. A nasogastric tube is seen cou rsing through the esophagus and stomach. There are coronary artery calcifications. The heart is enlar ged. AXILLAE: Within normal limits. No lymphadenopathy. MUSCULOSKELETAL: Within normal limits for patient age. MISCELLANEOUS: There is new patchy opacity in the fat posterior to the right lobe of the liver. Right adrenal gland appears unremarkable. The kidney is not imaged. CONCLUSION: 1. New consolidative infiltrate in the posterior right upper lobe most characteristic of pneumonia. 2. Consolidation also noted in the left lower lobe which is increased from the prior CT. 3. New abnormal streaky density in the posterior upper abdomen located posterior to the liver. This i s nonspecific but could represent infection or inflammatory change. 4. Cardiomegaly. Chintan Marshall MD on November 15, 2017 at 14:46 Board Certified Radiologist. This report was verified electronically.
[2017-11-15] MEDS ORDERED: VANCOMYCIN INJ 500 MG in SODIUM CHLORIDE 0.9% INJ 100 ML IV ONE (15:00)
[2017-11-15] MEDS ORDERED: EPINEPHrine (1:1000) INJ 2 MG in DEXTROSE 5% IN WATER INJ 250 ML IV PRN ×4 (15:00→15:45)
[2017-11-15] MEDS: RESP: ALBUTEROL 2.5 MG/IPRATROPIUM 0.5 MG NEB (SCH) INH (15:37)
[2017-11-15] MEDS ORDERED: EPINEPHrine HCL (1:10,000) 1 MG/10 ML SYRINGE ONE ×2 (15:42→15:51)
[2017-11-15] MEDS ORDERED: DIGOXIN 0.5 MG/2 ML VIAL IV PUSH ONE (16:15)
--- NOTE | 2017-11-15 17:28 | PD.ID.CON ---
History of Present Illness Service ID Consult Requested By Reason for Consult Evaluation and management of septic shock, pneumonia Primary Care Physician Unknown Diagnoses: History of Present Illness is a 67 y/o CF morbidly obese with BMI 58.7 kg/m2 who has had multiple prior admissions for MRSA pneumonia and respiratory failure presents by EMS for recurrent respiratory failure. She resides in a SNF. She was found unresponsive this morning. She was intubated in the field. She has a wbc 52k, lactate of 6.9, Cr 2.87 (baseline 0.5, prior admission discharge was 1.8). u/a concerning for probable UTI as well. In the emergency department patient received 3 IV fluid boluses and continued to be hypotensive needing vasopressor support. Upon review of records it appears she was recently treated in Oct 15 for UTI at [facility] with macrobid. EMAR from [facility] with no antibiotics but was on lactobacillus. Spoke to CHILO Moura at [facility] patient has 2-3 episodes of vomiting yesterday at [facility] and received antiemetics. T:98, BP: 110/62, 96% RA, BS: 108. Patient was not on any antibiotics. No diarrhea. Lasix increased due to pedal edema. No cultures drawn. No flu test done per records. She has a prior h/o admission at [place] admitted in late 2016 when she was in the ICU intubated needing a trach eventually. During that admission patient was treated for MRSA pneumonia but also she has a history of pseudomonas infections in the past. Pseudomonas in the past with pansensitive cultures but given her multiple hospitalization and multiple courses of antibiotics she stands at this for multidrug-resistant Pseudomonas. At the time of my evaluation patient is in the IMC appears very critically ill intubated. Patient is on vasopressin 0.04, we will fed 40 mics, epinephrine 10/9, amiodarone drip at 1 g. Patient has 0 urine output at the present time. She has small white secretions. She has no diarrhea. Abdomen appears benign. No response to verbal or other stimuli for me but RN reports when daughter was here earlier she opened eyes, moved limbs and squeezed RNs fingers. Currently sedation is off but patient in ARF with no urine output. Infectious disease consultation was requested for evaluation and management of septic shock, pneumonia. Review of Systems ROS Limitations: Intubated Past Family Social History Allergies: Coded Allergies: penicillin G (Unverified Allergy, Severe, 05/29/17) Past Medical History Obtained by review of medical records Chronic asthma home oxygen Atrial fibrillation Hyperlipidemia Hypertension excellent diabetes mellitus GERD Morbid obesity BMI 55 Past Surgical History Appendectomy Hernia surgery Tracheostomy placement Reported Medications Reported Meds & Active Scripts Active Lactinex (Lactobacillus Acidophilus) 1 Chew 1 Tab CHEW TID 10 Days Clotrimazole AF Topical (Clotrimazole) 1% Cream 1 Applic TOPICAL Q8HR Famotidine 20 Mg Tab 10 Mg PO BID Metoprolol Tartrate 25 Mg Tab 25 Mg PO Q8HR Xanax (Alprazolam) 1 Mg Tab 1 Mg PO BID PRN Reported Zoloft (Sertraline HCl) 100 Mg Tab 100 Mg PO DAILY Xopenex Neb (Levalbuterol HCl) 1.25 Mg/3 Ml Neb 1.25 Mg NEB Q4HR Vitamin C (Ascorbic Acid) 500 Mg Capsule 500 Mg PO BID Promethazine Inj (Promethazine HCl) 25 Mg/Ml Inj 25 Mg IM DAILY PRN Potassium Chloride ER (Potassium Chloride) 20 Meq Tab 20 Meq PO DAILY Nystatin Topical (Nystatin) 100,000 unit/gm Cream 1 Applic TOPICAL Q8HR Novolin R Inj (Insulin Human Regular) 1,000 Unit/10 Ml Vial 0 SQ DIRECTED Sliding Scale As Directed. One Daily Plus Minerals (Multivitamin with Minerals) 1 Each Tablet Hydrocodone-Acetaminophen 5-325 mg Tab 1 Tab PO Q6H PRN Levemir Inj (Insulin Detemir) 1,000 unit/ 10 ML Vial 40 Units SQ BID Do not mix with any other Insulin. Lasix (Furosemide) 40 Mg Tab 40 Mg PO DAILY Hydroxyzine HCl 25 Mg Tab 25 Mg PO Q8HR Perforomist Neb (Formoterol Fumarate) 20 Mcg/2 Ml Neb 1 Nebule INH BID Diltiazem (Diltiazem HCl) 90 Mg Tab 90 Mg PO DAILY Budesonide Neb 0.5 Mg/2 Ml Neb 0.5 Mg NEB Q12HR NEB Zofran Odt (Ondansetron Odt) 4 Mg Tab 4 Mg SL Q6HR PRN Restoril (Temazepam) 15 Mg Cap 15 Mg PO HS PRN Sennosides 8.6 Mg Tab 17.2 Mg PO BID Glucagen Hypokit Inj Kit (Glucagon (Rdna) Inj Kit) 1 Mg Kit 1 Mg IM ONCE PRN Flomax (Tamsulosin HCl) 0.4 Mg Cap 0.4 Mg PO HS Albuterol Neb (Albuterol Sulfate) 2.5 Mg/3 Ml Neb 2.5 Mg NEB Q4HR PRN While awake Xarelto (Rivaroxaban) 10 Mg Tab 10 Mg PO DAILY Acetylcysteine Liq/Neb (Acetylcysteine) 200 mg/ml Soln 4 Ml NEB Q8HR PRN Lyrica (Pregabalin) 75 Mg Cap 75 Mg PO DAILY Active Ordered Medications Current Medications Medications (Trade) Dose Ordered Sig/Mirta Route Start Time Stop Time Status Last Admin Propofol 100 ml @ 0 mls/hr TITRATE PRN IV 11/15/17 11:45 Norepinephrine Bitartrate 250 ml @ 7.5 mls/hr TITRATE PRN IV 11/15/17 12:15 (Brethine Inj) 1 mg UNSCH PRN SQ 11/15/17 12:15 Fentanyl Citrate 250 ml @ 5 mls/hr TITRATE PRN IV 11/15/17 12:30 11/15/17 12:53 Diltiazem HCl 125 mg/Sodium Chloride 125 ml @ 5 mls/hr TITRATE PRN IV 11/15/17 12:30 Dopamine HCl/ Dextrose 500 ml @ 0 mls/hr TITRATE PRN IV 11/15/17 12:45 (Brethine Inj) 1 mg UNSCH PRN SQ 11/15/17 12:45 Amiodarone HCl 450 mg/Dextrose 250 ml @ 33.33 mls/ hr Q7H31M PRN IV 11/15/17 13:13 11/15/17 13:51 (Peridex 0.12% Liq) 15 ml BID@08,20 MT 11/15/17 20:00 (D50w (Vial) Inj) 25 ml UNSCH PRN IV PUSH 11/15/17 14:00 (NovoLIN R SUPPLEMENTAL SCALE) 1 Q6HR SQ 11/15/17 18:00 (Duoneb Neb) 1 ampule Q6HR NEB INH 11/15/17 16:00 11/15/17 15:37 (Duoneb Neb) 1 ampule Q2HR NEB PRN INH 11/15/17 14:00 Sodium Chloride 1,000 ml @ 125 mls/hr Q8H IV 11/15/17 15:00 (Tylenol) 650 mg Q6H PRN PO 11/15/17 14:00 (Pepcid Inj) 10 mg Q12HR IV PUSH 11/15/17 21:00 (Zofran Inj) 4 mg Q6H PRN IV PUSH 11/15/17 14:00 (Heparin Inj) 5,000 units Q8H SQ 11/15/17 15:00 Miscellaneous Information 1 Q361D XX 11/15/17 14:00 (Chlorhexidine 2% Cloth) 3 pack Taper DAILY@04 TOP 11/16/17 04:00 11/12/18 03:59 (Chlorhexidine 2% Cloth) 3 pack UNSCH PRN TOP 11/15/17 14:00 (Zelda-Colace) 1 tab BID PO 11/15/17 21:00 (Milk Of Magnesia Liq) 30 ml Q12H PRN PO 11/15/17 14:00 (Senokot) 17.2 mg Q12H PRN PO 11/15/17 14:00 (Dulcolax Supp) 10 mg DAILY PRN RECTAL 11/15/17 14:00 (Lactulose Liq) 30 ml DAILY PRN PO 11/15/17 14:00 Pharmacy Profile Note 0 ml @ 0 mls/hr UNSCH OTHER 11/15/17 14:00 Levofloxacin/ Dextrose 150 ml @ 100 mls/hr Q48H IV 11/17/17 14:00 Vasopressin 40 units/Dextrose 100 ml @ 6 mls/hr [id number] IV 11/15/17 14:12 Epinephrine HCl 2 mg/Dextrose 252 ml @ 22.68 mls/ hr TITRATE PRN IV 11/15/17 15:00 Epinephrine HCl 2 mg/Dextrose 252 ml @ 22.68 mls/ hr TITRATE PRN IV 11/15/17 15:45 UNV (SoluCORTEF INJ) 50 mg Q6HR IV PUSH 11/15/17 16:15 UNV (Lanoxin Inj) 0.25 mg STAT ONCE IV PUSH 11/15/17 16:15 11/15/17 16:16 UNV Ceftolozane/ Tazobactam 1500 mg/Sodium Chloride 100 ml @ 100 mls/hr Q8H IV 11/15/17 18:00 Clindamycin/ Sodium Chloride 50 ml @ 100 mls/hr Q6H IV 11/15/17 17:00 UNV Family History Father had heart disease, diabetes, emphysema Mother had mental health issues Social History Has been in the long term No smoking No alcohol abuse No illicit drugs Physical Exam Vital Signs Vital Signs Date Time Temp Pulse Resp B/P (MAP) Pulse Ox O2 Delivery O2 Flow Rate FiO2 11/15/17 16:53 95 40 11/15/17 15:43 11/15/17 15:42 155 14 130/59 (82) 100 Ventilator 60 11/15/17 13:56 11/15/17 13:55 101.0 11/15/17 13:54 122 14 100/60 (73) 100 Ventilator 60 11/15/17 13:51 145 90/56 11/15/17 13:28 152 14 96/53 (67) 100 Ventilator 60 11/15/17 13:24 155 90/52 11/15/17 13:05 160 14 92/50 (64) 100 Ventilator 100 11/15/17 12:57 159 14 118/49 (72) 100 Ventilator 100 11/15/17 12:51 125 14 93/43 (60) 100 Ventilator 100 11/15/17 12:46 158 14 84/52 (63) 100 Ventilator 100 11/15/17 12:41 130 14 73/45 (54) 100 Ventilator 100 11/15/17 12:30 102.7 135 14 77/44 (55) 100 Ventilator 100 11/15/17 12:23 124 14 91/52 (65) 100 Ventilator 100 11/15/17 12:10 159 14 105/57 (73) 100 Ventilator 100 11/15/17 12:08 150 14 94/36 (55) 100 Ventilator 100 11/15/17 12:01 99.9 11/15/17 11:52 126 14 91/50 (64) 100 Ventilator 100 11/15/17 11:51 128 35/19 11/15/17 11:41 100 11/15/17 11:39 35/19 (24) 11/15/17 11:33 145 14 100 100 11/15/17 11:30 0 100 11/15/17 11:29 160 14 100 Physical Exam GENERAL: Morbidly obese patient,intubated. SKIN: Ecchymoses noted. HEAD: Atraumatic. Normocephalic. No temporal or scalp tenderness. EYES: Pupils equal round and reactive. Large neck. ENT: Intubated. Prior trach site ok. NECK: Trachea midline. Supple, nontender, no meningeal signs. CARDIOVASCULAR: HS audible and distant. RESPIRATORY: Clear to auscultation anteriorly. Distant breath sounds. GASTROINTESTINAL: Abdomen soft, non-tender, nondistended. Obese. Pannus noted. MUSCULOSKELETAL: Pedal edema noted. NEUROLOGICAL: did not open eyes or follow commands for me. Psych could not be assessed IV line sites with no e.o infection. Laboratory Laboratory Tests Test 11/15/17 11:39 11/15/17 11:47 11/15/17 11:50 11/15/17 15:05 Urine Color YELLOW Urine Turbidity CLOUDY Urine pH 6.0 Urine Specific [place] 1.013 Urine Protein 300 Urine Glucose (UA) NEG Urine Ketones NEG Urine Occult Blood SMALL Urine Nitrite NEG Urine Bilirubin NEG Urine Urobilinogen LESS THAN 2.0 Urine Leukocyte Esterase LARGE Urine RBC 65 Urine WBC Urine WBC Clumps MOD Urine Squamous Epithelial Cells 20 Urine Bacteria MANY Microscopic Urinalysis Comment CULTURE INDICATED White Blood Count 52.8 Red Blood Count 4.11 Hemoglobin 11.1 Hematocrit 37.2 Mean Corpuscular Volume 90.5 Mean Corpuscular Hemoglobin 26.9 Mean Corpuscular Hemoglobin Concent 29.7 Red Cell Distribution Width 20.7 Platelet Count 309 Mean Platelet Volume 8.2 Neutrophils (%) (Auto) 94.3 Lymphocytes (%) (Auto) 2.1 Monocytes (%) (Auto) 3.6 Eosinophils (%) (Auto) 0.0 Basophils (%) (Auto) 0.0 Neutrophils # (Auto) 49.8 Lymphocytes # (Auto) 1.1 Monocytes # (Auto) 1.9 Eosinophils # (Auto) 0.0 Basophils # (Auto) 0.0 CBC Comment AUTO DIFF Differential Total Cells Counted 100 Neutrophils % (Manual) 64 Band Neutrophils % 18 Lymphocytes % 2 Monocytes % 5 Neutrophils # (Manual) 49.1 Metamyelocytes 9 Myelocytes 2 Differential Comment FINAL DIFF MANUAL Toxic Vacuolation PRESENT Platelet Estimate NORMAL Platelet Morphology Comment NORMAL Basophilic Stippling FAINT Stomatocytes 1+ Prothrombin Time 13.9 Prothromb Time International Ratio 1.4 Activated Partial Thromboplast Time 28.9 Blood Urea Nitrogen 20 Creatinine 2.87 Random Glucose 63 Total Protein 5.5 Albumin 1.8 Calcium Level 8.4 Alkaline Phosphatase 98 Aspartate Amino Transf (AST/SGOT) 26 Alanine Aminotransferase (ALT/SGPT) 12 Total Bilirubin 0.2 Sodium Level 144 Potassium Level 4.2 Chloride Level 99 Carbon Dioxide Level 30.2 Anion Gap 15 Estimat Glomerular Filtration Rate 16 Total Creatine Kinase 32 Troponin I LESS THAN 0.02 B-Type Natriuretic Peptide 336 Lactic Acid Level 6.9 Blood Gas Puncture Site CL Blood Gas Patient Temperature 98.6 Blood Gas HCO3 19 Blood Gas Base Excess -6.9 Blood Gas Oxygen Saturation 95 Arterial Blood pH 7.25 Arterial Blood Partial Pressure CO2 45 Arterial Blood Partial Pressure O2 91 Arterial Blood Oxygen Content 14.4 Arterial Blood Carboxyhemoglobin 1.2 Arterial Blood Methemoglobin 0.6 Blood Gas Hemoglobin 10.7 Oxygen Delivery Device VENTILATOR Blood Gas Ventilator Setting AC/R14/VT550/P5 Blood Gas Inspired Oxygen 60 Test 11/15/17 16:25 11/15/17 16:40 Date/Time Source Procedure Growth Status 11/15/17 11:50 Blood Peripheral Aerobic Blood Culture Pending Received 11/15/17 11:50 Blood Peripheral Anaerobic Blood Culture Pending Received 11/15/17 16:20 Sputum Endotracheal Gram Stain Pending Received 11/15/17 16:20 Sputum Endotracheal Sputum Culture Pending Received 11/15/17 11:39 Urine Clean Catch Urine Culture Pending Received Result Diagram: 11/15/17 1147 11/15/17 1147 Imaging Last Impressions Chest CT 11/15/17 1255 Signed Impressions: Service Date/Time: November 14:24 - CONCLUSION: 1. New consolidative infiltrate in the posterior right upper lobe most characteristic of pneumonia. 2. Consolidation also noted in the left lower lobe which is increased from the prior CT. 3. New abnormal streaky density in the posterior upper abdomen located posterior to the liver. This is nonspecific but could represent infection or inflammatory change. 4. Cardiomegaly. Chintan Marshall MD Head CT 11/15/17 1134 Signed Impressions: Service Date/Time: November 14:13 - CONCLUSION: 1. No acute hemorrhage or mass effect. 2. Atrophy and chronic small vessel ischemic change 3. Air-fluid levels in the maxillary sinuses most characteristic of acute sinusitis. Chintan Marshall MD Chest X-Ray 11/15/17 4367 Signed Impressions: Service Date/Time: November 12:27 - CONCLUSION: ET tube 1.3 cm above the makeda in a somewhat low position. This could be pulled back 2-3 cm to be in a better position. Perry Frye MD Assessment and Plan Assessment and Plan Septic shock with multiorgan dysfunction syndrome Pneumonia: 1. Aspiration pneumonia highly likely given multiple episodes of vomiting prior to admission in the long term 2. Possible post influenza necrotizing pneumonia. 3. Health care pneumonia. Acute respiratory failure on vent Acute renal failure with anuria. Morbid obesity BMI 58.7 KG per meter squared Nausea vomiting prior to admission Elevated lactic acid secondary to sepsis Recommendations: Case discussed with Dr. Mullins Discontinue Azactam IV Start Zerbaxa IV (ASP: Prior h/o PSAE in sputum high risk for MDRO, pending cultures) Continue Vanco IV dosing by ERIKA WALSH. Recheck Vanco level stat will redose based on levels. DC Flagyl IV Start Clindamycin IV for possible toxin neutralization effect as appears rapidly progressing concern for TSS from Necrotizing pneumonia plus anaerobic coverage. No diarrhea prior to admission abdomen appears benign high leucocytosis also seen with aspiration pneumonia/chemical pneumonitis component. Continue Levaquin IV for now. start Empiric Tamiflu pending Flu testing. Check Rapid Flu antigen. Will check Flu PCR as well if antigen negative to rule out Flu related sepsis. Would recommend CT Abd pelvis if clinically stable and able to travel to [place]. Follow cultures Follow clinically. d/w dr.Greene hackettw RN D.w IV room pharmacist to get us doses stat. Critical thinking and decision making. Agree patient is critically ill and prognosis is guarded at present time. Amy Cartagena MD Nov 15, 2017 17:28
[2017-11-15] MEDS: OSELTAMIVIR PHOSPHATE 6 MG/ML 60 ML SUSP PO SCH (17:45)
[2017-11-15] MEDS: NOREPINEPHRINE-DEXTROSE DRIP 250 ML IV PRN ×3 (17:45→21:26)
[2017-11-15] MEDS: CEFTOLOZANE-TAZOBACTAM INJ 375 MG in SODIUM CHLORIDE 0.9% INJ 100 ML IV SCH (17:45)
[2017-11-15] MEDS: CLINDAMYCIN 900 MG/NS PREMIX 50 ML IV SCH (17:46)
[2017-11-15] MEDS: INSULIN NovoLIN REGULAR SUPPLEMENTAL SCALE SQ SCH (17:46)
[2017-11-15] MEDS: HYDROCORTISONE SOD SUCCINATE 100 MG VIAL IV PUSH SCH ×2 (17:53→22:23)
[2017-11-15] MEDS ORDERED: CEFTOLOZANE-TAZOBACTAM INJ 1,500 MG in SODIUM CHLORIDE 0.9% INJ 100 ML IV SCH (18:00)
[2017-11-15] MEDS: AMIODARONE INJ 450 MG in SODIUM CHLOR 0.9% (EXCEL) INJ 241 ML IV PRN (19:00)
[2017-11-15] MEDS: CHLORHEXIDINE 0.12% (ORAL KIT) 15 ML CUP MT SCH (20:00)
[2017-11-15] MEDS: RESP: ALBUTEROL 2.5 MG/IPRATROPIUM 0.5 MG NEB (PRN) INH (21:05)
[2017-11-15] MEDS: FAMOTIDINE 20 MG/2 ML VIAL IV PUSH SCH (21:26)
[2017-11-15] MEDS: HEPARIN SODIUM - SQ 10,000 UNITS/ML VIAL SQ SCH (21:27)
[2017-11-15] MEDS ORDERED: AZTREONAM INJ 1,000 MG in SODIUM CHLORIDE 0.9% INJ 100 ML IV SCH (22:00)
[2017-11-15] MEDS: SODIUM CHLOR 0.9% 1000 ML INJ 1,000 ML IV SCH (22:20)
[2017-11-15] MEDS: VASOPRESSIN INJ 40 UNITS in DEXTROSE 5% IN WATER 100ML INJ 98 ML IV SCH ×2 (22:21)
[2017-11-15] MEDS: DOCUSATE SODIUM 50 MG/SENNA 8.6 MG TAB PO SCH (22:22)
[2017-11-15] MEDS ORDERED: SODIUM CHLORID 0.9% 500 ML INJ 500 ML IV ONE (22:45)
[2017-11-15] MEDS ORDERED: EPINEPHrine (1:1000) INJ 8 MG in DEXTROSE 5% IN WATER INJ 242 ML IV PRN ×2 (22:45)
[2017-11-15] MEDS: NOREPINEPHRINE INJ 16 MG in DEXTROSE 5% IN WATER INJ 234 ML IV PRN ×2 (23:14)
[2017-11-16] VITALS (17 sets, daily range): BP systolic 72–133; BP diastolic 46–85; PULSE 101–122; RESP 15–18; TEMP 98.3; O2SAT 92–97
[2017-11-16] MEDS: CLINDAMYCIN 900 MG/NS PREMIX 50 ML IV SCH ×2 (01:03→05:05)
[2017-11-16] MEDS: HYDROCORTISONE SOD SUCCINATE 100 MG VIAL IV PUSH SCH ×5 (01:03→23:58)
[2017-11-16] MEDS: INSULIN NovoLIN REGULAR SUPPLEMENTAL SCALE SQ SCH ×4 (01:03→23:57)
[2017-11-16] MEDS: CEFTOLOZANE-TAZOBACTAM INJ 375 MG in SODIUM CHLORIDE 0.9% INJ 100 ML IV SCH ×3 (02:12→17:37)
[2017-11-16] MEDS: RESP: ALBUTEROL 2.5 MG/IPRATROPIUM 0.5 MG NEB (SCH) INH ×5 (03:55→21:23)
[2017-11-16] MEDS: CHLORHEXIDINE GLUCONATE 2 % 1 PACK (2 CLOTHS) TOP SCH (04:00)
[2017-11-16] MEDS: VASOPRESSIN INJ 40 UNITS in DEXTROSE 5% IN WATER 100ML INJ 98 ML IV SCH ×4 (05:07→23:58)
[2017-11-16] MEDS: DILTIAZEM INJ 125 MG in SODIUM CHLORIDE 0.9% INJ 100 ML IV PRN ×2 (05:08→22:27)
[2017-11-16] MEDS: AMIODARONE INJ 450 MG in SODIUM CHLOR 0.9% (EXCEL) INJ 241 ML IV PRN ×2 (05:08→22:01)
[2017-11-16 05:28] LABS: HEMATOCRIT 33.1 % (35.0-46.0); HEMOGLOBIN 10.2 GM/DL (11.6-15.3); MEAN CELL VOLUME 89.7 FL (80.0-100.0); MEAN CORPUSCULAR HEMOGLOBIN 27.5 PG (27.0-34.0); MEAN CORPUSCULAR HGB CONC 30.7 % (32.0-36.0); MEAN PLATELET VOLUME 7.9 FL (7.0-11.0); PLATELET COUNT 240 TH/MM3 (150-450); RED BLOOD COUNT 3.69 MIL/MM3 (4.00-5.30); RED CELL DISTRIBUTION WIDTH 20.9 % (11.6-17.2); WHITE BLOOD COUNT 73.1 TH/MM3 (4.0-11.0)
[2017-11-16] MEDS: OSELTAMIVIR PHOSPHATE 6 MG/ML 60 ML SUSP PO SCH (05:42)
[2017-11-16 05:43] LABS: BICARBONATE 23.1 MEQ/L (21.0-32.0); CALCIUM 7.5 MG/DL (8.5-10.1); CREATININE 3.01 MG/DL (0.50-1.00)
[2017-11-16] MEDS: HEPARIN SODIUM - SQ 10,000 UNITS/ML VIAL SQ SCH ×3 (05:43→23:57)
--- NOTE | 2017-11-16 06:49 | HHI.PR ---
Addendum to Inpatient Note Addendum Reason: Additional Documentation Additional Information Verbal d.w about patient condition after chart review. Remains on pressors, vent, UO not much, WBC rising. Patient now more awake and reportedly abdomen now tender. Even though there is no diarrhea concern for : Cdiff vs Perforation of bowel. Recs STAT CT Abd pelvis STAT Vanco oral STAT Flagyl IV DC Clinda Continue Zerbaxa IV Continue vanco IV will redose based on levels. Continue Levaquin IV for now. If diarrhea check Cdiff Will see patient as soon as I get to hospital this am. Amy Cartagena MD Nov 16, 2017 06:49
[2017-11-16] MEDS: DOCUSATE SODIUM 50 MG/SENNA 8.6 MG TAB PO SCH ×2 (08:33→21:29)
[2017-11-16] MEDS: metroNIDAZOLE 500 MG INJ 100 ML IV SCH ×3 (08:33→23:58)
[2017-11-16] MEDS: AZITHROMYCIN INJ 500 MG in SODIUM CHLOR 0.9% 250 ML INJ 250 ML IV SCH (08:33)
[2017-11-16] MEDS: FAMOTIDINE 20 MG/2 ML VIAL IV PUSH SCH ×2 (08:34→21:29)
[2017-11-16] MEDS: LINEZOLID 600 MG PREMIX 300 ML IV SCH ×2 (08:34→17:37)
[2017-11-16] MEDS: VANCOMYCIN 500 MG VIAL (FOR ORAL USE ONLY) PO SCH ×4 (08:35→21:30)
[2017-11-16] MEDS: SODIUM CHLOR 0.9% 1000 ML INJ 1,000 ML IV SCH ×3 (08:35→23:57)
[2017-11-16] MEDS: CHLORHEXIDINE 0.12% (ORAL KIT) 15 ML CUP MT SCH ×3 (08:36→21:29)
--- NOTE | 2017-11-16 09:10 | RADRPT ---
EXAM DATE/TIME: 11/16/2017 08:54 [facility] COMPARISON: No previous studies available for comparison. INDICATIONS : Abdominal pain, possible colitis ORAL CONTRAST: No oral contrast ingested. RADIATION DOSE: 35.13 CTDIvol (mGy) ; Patient body habitus MEDICAL HISTORY : Hypertension. Cardiovascular disease SURGICAL HISTORY : Hysterectomy. ENCOUNTER: Subsequent ACUITY: 2 days PAIN SCALE: Non-responsive LOCATION: Bilateral Abdomen TECHNIQUE: Volumetric scanning of the abdomen and pelvis was performed. Using automated exposure control and ad justment of the mA and/or kV according to patient size, radiation dose was kept as low as reasonably achievable to obtain optimal diagnostic quality images. DICOM format image data is available electro nically for review and comparison. FINDINGS: LOWER LUNGS: Left basilar consolidation. LIVER: Homogeneous density without lesion. There is no dilation of the biliary tree. No calcified gallston es. SPLEEN: Normal size without lesion. PANCREAS: Within normal limits. KIDNEYS: There is no mass, stone, or hydronephrosis on the left. Hyperdense lesion left kidney likely hyperden se cyst measuring 7.1 cm. Moderate hydronephrosis of the right kidney with layering hyperdense materi al within the renal pelvis and distal ureter. Inflammatory changes adjacent to the right kidney. ADRENAL GLANDS: Within normal limits. VASCULAR: There is no aortic aneurysm. BOWEL/MESENTERY: Scattered diverticulosis. Minimal inflammatory changes adjacent to the duodenum. Copious stool in the rectum. There is no free intraperitoneal air or fluid. ABDOMINAL WALL: Ventral wall hernia lung the left abdomen containing bowel loops. No signs of strength lation obstruc tion.. RETROPERITONEUM: There is no lymphadenopathy. BLADDER: No wall thickening or mass. REPRODUCTIVE: Within normal limits. INGUINAL: There is no lymphadenopathy or hernia. MUSCULOSKELETAL: Within normal limits for patient age. CONCLUSION: 1. Moderate hydronephrosis right kidney and hydroureter. There is dense material layering within the right renal pelvis and distal ureter of uncertain etiology but could be hemorrhage. Urinalysis and cl inical correlation. 2. Hyperdense left renal lesion likely complex cyst. 3. Scattered diverticulosis of the colon. 4. Left basilar consolidation. 5. Left-sided ventral wall hernia. El Nuñez MD on November 16, 2017 at 9:02 Board Certified Radiologist. This report was verified electronically.
--- NOTE | 2017-11-16 09:30 | HHI.IDPN ---
Subjective Subjective Remarks is a 67 y/o CF morbidly obese with BMI 58.7 kg/m2 who has had multiple prior admissions for MRSA pneumonia and respiratory failure presents by EMS for recurrent respiratory failure. She resides in a SNF. She was found unresponsive this morning. She was intubated in the field. She has a wbc 52k, lactate of 6.9, Cr 2.87 (baseline 0.5, prior admission discharge was 1.8). u/a concerning for probable UTI as well. In the emergency department patient received 3 IV fluid boluses and continued to be hypotensive needing vasopressor support. Upon review of records it appears she was recently treated in Oct 15 for UTI at [facility] with macrobid. EMAR from [facility] with no antibiotics but was on lactobacillus. Spoke to CHILO Moura at [facility] patient has 2-3 episodes of vomiting yesterday at [facility] and received antiemetics. T:98, BP: 110/62, 96% RA, BS: 108. Patient was not on any antibiotics. No diarrhea. Lasix increased due to pedal edema. No cultures drawn. No flu test done per records. She has a prior h/o admission at [place] admitted in late 2016 when she was in the ICU intubated needing a trach eventually. During that admission patient was treated for MRSA pneumonia but also she has a history of pseudomonas infections in the past. Pseudomonas in the past with pansensitive cultures but given her multiple hospitalization and multiple courses of antibiotics she stands at this for multidrug-resistant Pseudomonas. At the time of my evaluation patient is in the IMC appears very critically ill intubated. Patient is on vasopressin 0.04, we will fed 40 mics, epinephrine 10/9, amiodarone drip at 1 g. Patient has 0 urine output at the present time. She has small white secretions. She has no diarrhea. Abdomen appears benign. No response to verbal or other stimuli for me but RN reports when daughter was here earlier she opened eyes, moved limbs and squeezed RNs fingers. Currently sedation is off but patient in ARF with no urine output. Infectious disease consultation was requested for evaluation and management of septic shock, pneumonia. Overnight events reviewed Remains on pressors (Levo down to 40 and other requirements down some as well) Remains on vent FIO2 45%, PEEP 15. Secretions not much, pale white. UO [address] High grade fevers overnight. WBC increased to 73 k. No diarrhea Opens eyes spontaneously now. Grimaces to painful stimuli. Abdomen tenderness diffuse on deep palpation. Area of redness on the right c/w abrasion, secondary fungal infection ? cellulitis. Antibiotics Zerbaxa IV Vanco IV x 1 dose. Levaquin IV Tamiflu Clinda IV. Lines Line sites ok. Past Medical History Past Medical History Chronic asthma home oxygen Atrial fibrillation Hyperlipidemia Hypertension excellent diabetes mellitus GERD Morbid obesity BMI 55 Past Surgical History Appendectomy Hernia surgery Tracheostomy placement Allergies: Coded Allergies: penicillin G (Unverified Allergy, Severe, 05/29/17) Objective . Vital Signs Date Time Temp Pulse Resp B/P (MAP) Pulse Ox O2 Delivery O2 Flow Rate FiO2 11/16/17 09:13 96 100 11/16/17 07:40 94 40 11/16/17 06:00 106 11/16/17 06:00 100.8 106 15 79/56 (64) 92 100/46 (64) 11/16/17 05:08 103 102/49 11/16/17 05:08 105 105/49 11/16/17 05:07 115 105/49 11/16/17 04:00 100.6 102 15 107/50 (69) 94 11/16/17 04:00 102 11/16/17 04:00 40 11/16/17 03:56 94 40 11/16/17 02:00 106 11/16/17 00:00 101.1 122 15 107/66 (80) 95 11/16/17 00:00 122 11/16/17 00:00 40 11/15/17 23:28 142 88/56 11/15/17 23:15 123 78/50 11/15/17 23:14 152 73/49 11/15/17 23:00 101.3 141 0 91 11/15/17 23:00 141 11/15/17 22:21 120 105/53 11/15/17 22:00 100.8 133 15 103/51 (68) 96 11/15/17 22:00 133 11/15/17 21:26 130 109/51 11/15/17 21:00 144 11/15/17 21:00 92 40 11/15/17 21:00 100.9 144 15 105/51 (69) 92 11/15/17 20:00 100.9 143 15 91/46 (61) 90 11/15/17 20:00 143 11/15/17 20:00 40 11/15/17 19:34 140 94/46 11/15/17 19:33 130 65/46 11/15/17 19:00 141 76/46 11/15/17 18:00 149 11/15/17 17:45 127 66/37 11/15/17 16:53 95 40 11/15/17 16:00 102.2 142 15 94 Automatic Cuff 11/15/17 16:00 142 11/15/17 15:43 11/15/17 15:42 155 14 130/59 (82) 100 Ventilator 60 11/15/17 13:56 11/15/17 13:55 101.0 11/15/17 13:54 122 14 100/60 (73) 100 Ventilator 60 11/15/17 13:51 145 90/56 11/15/17 13:28 152 14 96/53 (67) 100 Ventilator 60 11/15/17 13:24 155 90/52 11/15/17 13:05 160 14 92/50 (64) 100 Ventilator 100 11/15/17 12:57 159 14 118/49 (72) 100 Ventilator 100 11/15/17 12:51 125 14 93/43 (60) 100 Ventilator 100 11/15/17 12:46 158 14 84/52 (63) 100 Ventilator 100 11/15/17 12:41 130 14 73/45 (54) 100 Ventilator 100 11/15/17 12:30 102.7 135 14 77/44 (55) 100 Ventilator 100 11/15/17 12:23 124 14 91/52 (65) 100 Ventilator 100 11/15/17 12:10 159 14 105/57 (73) 100 Ventilator 100 11/15/17 12:08 150 14 94/36 (55) 100 Ventilator 100 11/15/17 12:01 99.9 11/15/17 11:52 126 14 91/50 (64) 100 Ventilator 100 11/15/17 11:51 128 35/19 11/15/17 11:41 100 11/15/17 11:39 35/19 (24) 11/15/17 11:33 145 14 100 100 11/15/17 11:30 0 100 11/15/17 11:29 160 14 100 . Microbiology: Blood culture with Gram neg eugenio. Laboratory Tests Test 11/15/17 11:47 11/16/17 05:00 White Blood Count 52.8 TH/MM3 73.1 TH/MM3 Red Blood Count 4.11 MIL/MM3 3.69 MIL/MM3 Hemoglobin 11.1 GM/DL 10.2 GM/DL Hematocrit 37.2 % 33.1 % Mean Corpuscular Volume 90.5 FL 89.7 FL Mean Corpuscular Hemoglobin 26.9 PG 27.5 PG Mean Corpuscular Hemoglobin Concent 29.7 % 30.7 % Red Cell Distribution Width 20.7 % 20.9 % Platelet Count 309 TH/MM3 240 TH/MM3 Mean Platelet Volume 8.2 FL 7.9 FL Neutrophils (%) (Auto) 94.3 % Lymphocytes (%) (Auto) 2.1 % Monocytes (%) (Auto) 3.6 % Eosinophils (%) (Auto) 0.0 % Basophils (%) (Auto) 0.0 % Neutrophils # (Auto) 49.8 TH/MM3 Lymphocytes # (Auto) 1.1 TH/MM3 Monocytes # (Auto) 1.9 TH/MM3 Eosinophils # (Auto) 0.0 TH/MM3 Basophils # (Auto) 0.0 TH/MM3 CBC Comment AUTO DIFF Differential Total Cells Counted 100 Neutrophils % (Manual) 64 % Band Neutrophils % 18 % Lymphocytes % 2 % Monocytes % 5 % Neutrophils # (Manual) 49.1 TH/MM3 Metamyelocytes 9 % Myelocytes 2 % Differential Comment FINAL DIFF MANUAL Toxic Vacuolation PRESENT Platelet Estimate NORMAL Platelet Morphology Comment NORMAL Basophilic Stippling FAINT Stomatocytes 1+ Laboratory Tests Test 11/15/17 11:47 11/15/17 11:50 11/15/17 16:40 11/15/17 20:10 Blood Urea Nitrogen 20 MG/DL Creatinine 2.87 MG/DL Random Glucose 63 MG/DL Total Protein 5.5 GM/DL Albumin 1.8 GM/DL Calcium Level 8.4 MG/DL Alkaline Phosphatase 98 U/L Aspartate Amino Transf (AST/SGOT) 26 U/L Alanine Aminotransferase (ALT/SGPT) 12 U/L Total Bilirubin 0.2 MG/DL Sodium Level 144 MEQ/L Potassium Level 4.2 MEQ/L Chloride Level 99 MEQ/L Carbon Dioxide Level 30.2 MEQ/L Anion Gap 15 MEQ/L Estimat Glomerular Filtration Rate 16 ML/MIN Total Creatine Kinase 32 U/L Troponin I LESS THAN 0.02 NG/ML B-Type Natriuretic Peptide 336 PG/ML Lactic Acid Level 6.9 mmol/L 13.0 mmol/L 11.1 mmol/L Test 11/16/17 05:00 Blood Urea Nitrogen 24 MG/DL Creatinine 3.01 MG/DL Random Glucose 262 MG/DL Calcium Level 7.5 MG/DL Sodium Level 139 MEQ/L Potassium Level 4.1 MEQ/L Chloride Level 101 MEQ/L Carbon Dioxide Level 23.1 MEQ/L Anion Gap 15 MEQ/L Estimat Glomerular Filtration Rate 15 ML/MIN Prealbumin 3 MG/DL Microbiology Date/Time Source Procedure Growth Status 11/15/17 11:50 Blood Peripheral Aerobic Blood Culture Pending Received 11/15/17 11:50 Blood Peripheral Anaerobic Blood Culture Pending Received 11/15/17 11:45 Blood Peripheral Aerobic Blood Culture Pending Received 11/15/17 11:45 Blood Peripheral Anaerobic Blood Culture Pending Received 11/15/17 17:08 Nasal Washing Influenza Types A,B Antigen (NATALIE) - Final NEGATIVE FOR FLU A AND B ANTIGEN.... Complete 11/15/17 16:20 Sputum Endotracheal Gram Stain Pending Received 11/15/17 16:20 Sputum Endotracheal Sputum Culture Pending Received 11/15/17 11:39 Urine Catheterized Urine Legionella Antigen Pending Received 11/15/17 11:39 Urine Catheterized Urine Streptococcus pneumoniae Antigen (M Pending Received 11/15/17 11:39 Urine Clean Catch Urine Culture Pending Received Imaging Last Impressions Abdomen/Pelvis CT 11/16/17 0000 Signed Impressions: Service Date/Time: Thursday, November 16, 2017 08:54 - CONCLUSION: 1. Moderate hydronephrosis right kidney and hydroureter. There is dense material layering within the right renal pelvis and distal ureter of uncertain etiology but could be hemorrhage. Urinalysis and clinical correlation. 2. Hyperdense left renal lesion likely complex cyst. 3. Scattered diverticulosis of the colon. 4. Left basilar consolidation. 5. Left-sided ventral wall hernia. El Nuñez MD Chest CT 11/15/17 1255 Signed Impressions: Service Date/Time: November 14:24 - CONCLUSION: 1. New consolidative infiltrate in the posterior right upper lobe most characteristic of pneumonia. 2. Consolidation also noted in the left lower lobe which is increased from the prior CT. 3. New abnormal streaky density in the posterior upper abdomen located posterior to the liver. This is nonspecific but could represent infection or inflammatory change. 4. Cardiomegaly. Chintan Marshall MD Head CT 11/15/174 Signed Impressions: Service Date/Time: November 14:13 - CONCLUSION: 1. No acute hemorrhage or mass effect. 2. Atrophy and chronic small vessel ischemic change 3. Air-fluid levels in the maxillary sinuses most characteristic of acute sinusitis. Chintan Marshall MD Chest X-Ray 11/15/171133 Signed Impressions: Service Date/Time: November 12:27 - CONCLUSION: ET tube 1.3 cm above the makeda in a somewhat low position. This could be pulled back 2-3 cm to be in a better position. Perry Frye MD Physical Exam GENERAL: Morbidly obese patient,intubated. SKIN: Ecchymoses noted. Left thigh large 15x10 cm approx area of erythema, abrasion of skin noted. Skin folds in groin and breast with erythema and fungal overgrowth. HEAD: Atraumatic. Normocephalic. No temporal or scalp tenderness. EYES: Pupils equal round and reactive. Large neck. ENT: Intubated. Prior trach site ok. NECK: Trachea midline. Supple, nontender, no meningeal signs. CARDIOVASCULAR: HS audible and distant. RESPIRATORY: Clear to auscultation anteriorly. Distant breath sounds. GASTROINTESTINAL: Abdomen soft, tenderness in almost all quadrants. No guarding or rigidity noted. Obese. Pannus noted. MUSCULOSKELETAL: Pedal edema noted. NEUROLOGICAL: Opens eyes spontaneously, grimaces to painful stimuli. Psych could not be assessed IV line sites with no e.o infection. Assessment & Plan Remarks Septic shock with multiorgan dysfunction syndrome Pneumonia: 1. Aspiration pneumonia highly likely given multiple episodes of vomiting prior to admission in the long term 2. Possible post influenza necrotizing pneumonia. 3. Health care pneumonia. Gram negative bacteremia: likely secondary to pyelonephritis. Acute pyelonephritis with right side hydronephrosis with dense material in right renal pelvis. Acute respiratory failure on vent Acute renal failure with anuria. Morbid obesity BMI 58.7 KG per meter squared Nausea vomiting prior to admission Elevated lactic acid secondary to sepsis Recommendations: Continue Zerbaxa IV (ASP: GNR bacteremia, Prior h/o PSAE in sputum high risk for MDRO, pending cultures) DC Vanco IV Start Zyvox IV (MRSA pneumonia in a ARF patient with oliguria, additional exotoxin neutralization effect for Staph, MRSA and Strep pneumonia) Start Flagyl IV (empiric for Cdiff also pt has aspiration pneumonia) Continue oral vanco empiric for Cdiff pending PCR. DC Clindamycin IV DC Levaquin IV in view of suspicion for Cdiff. Check Cdiff if diarrhea Continue Azithro will likely DC in am as more information favors Gram negative sepsis from urosepsis and aspiration PNA. DC Tamiflu alternative explanations for infectious process are now becoming available. Flu screen antigen negative. CT Abd pelvis reviewed by me and [email or web address] : recommends nephrostomy. to d.w to decide if stable OR or if IR better at this point given her critical condition and max dose pressors. Follow cultures Follow clinically. d/w patients daughter in room. Critical thinking and decision making. Patient is critically ill and prognosis is guarded at present time. covering for me this weekend. Amy Cartagena MD Nov 16, 2017 09:30
--- NOTE | 2017-11-16 10:05 | PD.CONS ---
HPI Service Urology Consult Requested By Reason for Consult Septic stone Primary Care Physician Unknown Diagnosis: History of Present Illness 67yo morbidly obese female currently in septic shock, intubated and on multiple pressors seen in consultation for right hydronephrosis and concern for obstruction. Patient with pseudomonas blood and urine cultures. Concern for obstruction of the right collecting system as recent CT scan identified hyperdense material, possible stone, at the right distal ureter resulting in right hydronephrosis. As patient is in sepsis, immediate intervention is indicated. This was discussed in great detail with the Oceanographer Assistant and IR. It was felt that due to her obesity and clinical status, prone position for nephrostomy tube would be difficult. As she is already intubated, ureteral stent placement would be best attempted, although given her clinical status, mortality is extremely high. Unfortunately, there are no other options. Patient was taken to the OR emergently for right ureteral stent placement. Review of Systems ROS Limitations: Intubated Constitutional: COMPLAINS OF: Fatigue Respiratory: COMPLAINS OF: Apneas, Shortness of breath Cardiovascular: COMPLAINS OF: Lower Extremity Edema Genitourinary: COMPLAINS OF: Urinary incontinence Except as stated in HPI: all other systems reviewed are Neg Past Family Social History Past Medical History Chronic asthma home oxygen Atrial fibrillation Hyperlipidemia Hypertension excellent diabetes mellitus GERD Morbid obesity BMI 55 recurrent MRSA pneumonia prior tracheostomy 2017, now decannulated Past Surgical History Appendectomy Hernia surgery Tracheostomy placement Reported Medications Reported Meds & Active Scripts Active Lactinex (Lactobacillus Acidophilus) 1 Chew 1 Tab CHEW TID 10 Days Clotrimazole AF Topical (Clotrimazole) 1% Cream 1 Applic TOPICAL Q8HR Famotidine 20 Mg Tab 10 Mg PO BID Metoprolol Tartrate 25 Mg Tab 25 Mg PO Q8HR Xanax (Alprazolam) 1 Mg Tab 1 Mg PO BID PRN Reported Zoloft (Sertraline HCl) 100 Mg Tab 100 Mg PO DAILY Xopenex Neb (Levalbuterol HCl) 1.25 Mg/3 Ml Neb 1.25 Mg NEB Q4HR Vitamin C (Ascorbic Acid) 500 Mg Capsule 500 Mg PO BID Promethazine Inj (Promethazine HCl) 25 Mg/Ml Inj 25 Mg IM DAILY PRN Potassium Chloride ER (Potassium Chloride) 20 Meq Tab 20 Meq PO DAILY Nystatin Topical (Nystatin) 100,000 unit/gm Cream 1 Applic TOPICAL Q8HR Novolin R Inj (Insulin Human Regular) 1,000 Unit/10 Ml Vial 0 SQ DIRECTED Sliding Scale As Directed. One Daily Plus Minerals (Multivitamin with Minerals) 1 Each Tablet Hydrocodone-Acetaminophen 5-325 mg Tab 1 Tab PO Q6H PRN Levemir Inj (Insulin Detemir) 1,000 unit/ 10 ML Vial 40 Units SQ BID Do not mix with any other Insulin. Lasix (Furosemide) 40 Mg Tab 40 Mg PO DAILY Hydroxyzine HCl 25 Mg Tab 25 Mg PO Q8HR Perforomist Neb (Formoterol Fumarate) 20 Mcg/2 Ml Neb 1 Nebule INH BID Diltiazem (Diltiazem HCl) 90 Mg Tab 90 Mg PO DAILY Budesonide Neb 0.5 Mg/2 Ml Neb 0.5 Mg NEB Q12HR NEB Zofran Odt (Ondansetron Odt) 4 Mg Tab 4 Mg SL Q6HR PRN Restoril (Temazepam) 15 Mg Cap 15 Mg PO HS PRN Sennosides 8.6 Mg Tab 17.2 Mg PO BID Glucagen Hypokit Inj Kit (Glucagon (Rdna) Inj Kit) 1 Mg Kit 1 Mg IM ONCE PRN Flomax (Tamsulosin HCl) 0.4 Mg Cap 0.4 Mg PO HS Albuterol Neb (Albuterol Sulfate) 2.5 Mg/3 Ml Neb 2.5 Mg NEB Q4HR PRN While awake Xarelto (Rivaroxaban) 10 Mg Tab 10 Mg PO DAILY Acetylcysteine Liq/Neb (Acetylcysteine) 200 mg/ml Soln 4 Ml NEB Q8HR PRN Lyrica (Pregabalin) 75 Mg Cap 75 Mg PO DAILY Allergies: Coded Allergies: penicillin G (Unverified Allergy, Severe, 05/29/17) Active Ordered Medications Current Medications Medications (Trade) Dose Ordered Sig/Mirta Route Start Time Stop Time Status Last Admin Propofol 100 ml @ 0 mls/hr TITRATE PRN IV 11/15/17 11:45 (Brethine Inj) 1 mg UNSCH PRN SQ 11/15/17 12:15 Fentanyl Citrate 250 ml @ 5 mls/hr TITRATE PRN IV 11/15/17 12:30 11/15/17 12:53 Diltiazem HCl 125 mg/Sodium Chloride 125 ml @ 5 mls/hr TITRATE PRN IV 11/15/17 12:30 11/16/17 05:08 Dopamine HCl/ Dextrose 500 ml @ 0 mls/hr TITRATE PRN IV 11/15/17 12:45 (Brethine Inj) 1 mg UNSCH PRN SQ 11/15/17 12:45 (Peridex 0.12% Liq) 15 ml BID@08,20 MT 11/15/17 20:00 11/16/17 08:36 (D50w (Vial) Inj) 25 ml UNSCH PRN IV PUSH 11/15/17 14:00 (NovoLIN R SUPPLEMENTAL SCALE) 1 Q6HR SQ 11/15/17 18:00 11/16/17 05:42 (Duoneb Neb) 1 ampule Q6HR NEB INH 11/15/17 16:00 11/16/17 15:21 (Duoneb Neb) 1 ampule Q2HR NEB PRN INH 11/15/17 14:00 11/15/17 21:05 Sodium Chloride 1,000 ml @ 125 mls/hr Q8H IV 11/15/17 15:00 11/16/17 15:50 (Tylenol) 650 mg Q6H PRN PO 11/15/17 14:00 (Pepcid Inj) 10 mg Q12HR IV PUSH 11/15/17 21:00 11/16/17 08:34 (Zofran Inj) 4 mg Q6H PRN IV PUSH 11/15/17 14:00 (Heparin Inj) 5,000 units Q8H SQ 11/15/17 15:00 11/16/17 05:43 Miscellaneous Information 1 Q361D XX 11/15/17 14:00 11/15/17 19:00 (Chlorhexidine 2% Cloth) 3 pack Taper DAILY@04 TOP 11/16/17 04:00 11/12/18 03:59 11/16/17 04:00 (Chlorhexidine 2% Cloth) 3 pack UNSCH PRN TOP 11/15/17 14:00 (Zelda-Colace) 1 tab BID PO 11/15/17 21:00 11/16/17 08:33 (Milk Of Magnesia Liq) 30 ml Q12H PRN PO 11/15/17 14:00 (Senokot) 17.2 mg Q12H PRN PO 11/15/17 14:00 (Dulcolax Supp) 10 mg DAILY PRN RECTAL 11/15/17 14:00 (Lactulose Liq) 30 ml DAILY PRN PO 11/15/17 14:00 Vasopressin 40 units/Dextrose 100 ml @ 6 mls/hr [id number] IV 11/15/17 14:12 11/16/17 05:07 (SoluCORTEF INJ) 50 mg Q6HR IV PUSH 11/15/17 16:15 11/16/17 17:37 Ceftolozane/ Tazobactam 375 mg/ Sodium Chloride 100 ml @ 100 mls/hr Q8H IV 11/15/17 17:30 11/16/17 17:37 Amiodarone HCl 450 mg/Sodium Chloride 250 ml @ 33.33 mls/ hr Q7H31M PRN IV 11/15/17 20:15 11/16/17 05:08 Norepinephrine Bitartrate 16 mg/ Dextrose 250 ml @ 1.87 mls/hr TITRATE PRN IV 11/15/17 22:45 11/16/17 12:00 Epinephrine HCl 8 mg/Dextrose 250 ml @ 5.62 mls/hr TITRATE PRN IV 11/15/17 22:45 11/15/17 23:15 Metronidazole 100 ml @ 100 mls/hr Q8H IV 11/16/17 08:00 11/16/17 17:37 (VANCOMYCIN for oral use only) 500 mg QID PO 11/16/17 06:45 11/16/17 17:36 Linezolid 300 ml @ 300 mls/hr Q12H IV 11/16/17 07:00 11/16/17 17:37 Azithromycin 500 mg/Sodium Chloride 250 ml @ 250 mls/hr Q24H IV 11/16/17 08:00 11/16/17 08:33 Cefazolin Sodium 3000 mg/Sodium Chloride 130 ml @ 200 mls/hr COMMUNICATIONS ENGINEERING TECHNICIAN IV 11/16/17 15:45 11/19/17 15:44 (Peridex 0.12% Liq) 15 ml BID@08,20 MT 11/16/17 20:00 Fentanyl Citrate 250 ml @ 5 mls/hr TITRATE PRN IV 11/16/17 16:00 Family History Father had heart disease, diabetes, emphysema Mother had mental health issues Social History No alcohol or tobacco use Physical Exam Vital Signs Date Time Temp Pulse Resp B/P (MAP) Pulse Ox O2 Delivery O2 Flow Rate FiO2 11/16/17 09:13 96 100 11/16/17 07:40 94 40 11/16/17 06:00 106 11/16/17 06:00 100.8 106 15 79/56 (64) 92 100/46 (64) 11/16/17 05:08 103 102/49 11/16/17 05:08 105 105/49 11/16/17 05:07 115 105/49 11/16/17 04:00 100.6 102 15 107/50 (69) 94 11/16/17 04:00 102 11/16/17 04:00 40 11/16/17 03:56 94 40 11/16/17 02:00 106 11/16/17 00:00 101.1 122 15 107/66 (80) 95 11/16/17 00:00 122 11/16/17 00:00 40 11/15/17 23:28 142 88/56 11/15/17 23:15 123 78/50 11/15/17 23:14 152 73/49 11/15/17 23:00 101.3 141 0 91 11/15/17 23:00 141 11/15/17 22:21 120 105/53 11/15/17 22:00 100.8 133 15 103/51 (68) 96 11/15/17 22:00 133 11/15/17 21:26 130 109/51 11/15/17 21:00 144 11/15/17 21:00 92 40 11/15/17 21:00 100.9 144 15 105/51 (69) 92 11/15/17 20:00 100.9 143 15 91/46 (61) 90 11/15/17 20:00 143 11/15/17 20:00 40 11/15/17 19:34 140 94/46 11/15/17 19:33 130 65/46 11/15/17 19:00 141 76/46 11/15/17 18:00 149 11/15/17 17:45 127 66/37 11/15/17 16:53 95 40 11/15/17 16:00 102.2 142 15 94 Automatic Cuff 11/15/17 16:00 142 11/15/17 15:43 11/15/17 15:42 155 14 130/59 (82) 100 Ventilator 60 11/15/17 13:56 11/15/17 13:55 101.0 11/15/17 13:54 122 14 100/60 (73) 100 Ventilator 60 11/15/17 13:51 145 90/56 11/15/17 13:28 152 14 96/53 (67) 100 Ventilator 60 11/15/17 13:24 155 90/52 11/15/17 13:05 160 14 92/50 (64) 100 Ventilator 100 11/15/17 12:57 159 14 118/49 (72) 100 Ventilator 100 11/15/17 12:51 125 14 93/43 (60) 100 Ventilator 100 11/15/17 12:46 158 14 84/52 (63) 100 Ventilator 100 11/15/17 12:41 130 14 73/45 (54) 100 Ventilator 100 11/15/17 12:30 102.7 135 14 77/44 (55) 100 Ventilator 100 11/15/17 12:23 124 14 91/52 (65) 100 Ventilator 100 11/15/17 12:10 159 14 105/57 (73) 100 Ventilator 100 11/15/17 12:08 150 14 94/36 (55) 100 Ventilator 100 11/15/17 12:01 99.9 11/15/17 11:52 126 14 91/50 (64) 100 Ventilator 100 11/15/17 11:51 128 35/19 11/15/17 11:41 100 11/15/17 11:39 35/19 (24) 11/15/17 11:33 145 14 100 100 11/15/17 11:30 0 100 11/15/17 11:29 160 14 100 Physical Exam GENERAL: Intubated, multiple pressors SKIN: No rashes, ecchymoses or lesions. Cool and dry. HEAD: Atraumatic. Normocephalic EYES: No injection or drainage. ENT: Nose without bleeding, purulent drainage. NECK: Trachea midline. CARDIOVASCULAR: Regular rate and rhythm RESPIRATORY: Intubated on ventilator GASTROINTESTINAL: Morbidly obese Abdomen GENITOURINARY: Excoriations noted on posterior buttocks. Patulous urethra MUSCULOSKELETAL: Extremities with edema.. NEUROLOGICAL: Intubated and sedated. Lab results reviewed: Yes Laboratory Tests Test 11/15/17 11:39 11/15/17 11:47 11/15/17 11:50 11/15/17 15:05 Urine Color YELLOW Urine Turbidity CLOUDY Urine pH 6.0 Urine Specific [place] 1.013 Urine Protein 300 Urine Glucose (UA) NEG Urine Ketones NEG Urine Occult Blood SMALL Urine Nitrite NEG Urine Bilirubin NEG Urine Urobilinogen LESS THAN 2.0 Urine Leukocyte Esterase LARGE Urine RBC 65 Urine WBC Urine WBC Clumps MOD Urine Squamous Epithelial Cells 20 Urine Bacteria MANY Microscopic Urinalysis Comment CULTURE INDICATED White Blood Count 52.8 Red Blood Count 4.11 Hemoglobin 11.1 Hematocrit 37.2 Mean Corpuscular Volume 90.5 Mean Corpuscular Hemoglobin 26.9 Mean Corpuscular Hemoglobin Concent 29.7 Red Cell Distribution Width 20.7 Platelet Count 309 Mean Platelet Volume 8.2 Neutrophils (%) (Auto) 94.3 Lymphocytes (%) (Auto) 2.1 Monocytes (%) (Auto) 3.6 Eosinophils (%) (Auto) 0.0 Basophils (%) (Auto) 0.0 Neutrophils # (Auto) 49.8 Lymphocytes # (Auto) 1.1 Monocytes # (Auto) 1.9 Eosinophils # (Auto) 0.0 Basophils # (Auto) 0.0 CBC Comment AUTO DIFF Differential Total Cells Counted 100 Neutrophils % (Manual) 64 Band Neutrophils % 18 Lymphocytes % 2 Monocytes % 5 Neutrophils # (Manual) 49.1 Metamyelocytes 9 Myelocytes 2 Differential Comment FINAL DIFF MANUAL Toxic Vacuolation PRESENT Platelet Estimate NORMAL Platelet Morphology Comment NORMAL Basophilic Stippling FAINT Stomatocytes 1+ Prothrombin Time 13.9 Prothromb Time International Ratio 1.4 Activated Partial Thromboplast Time 28.9 Blood Urea Nitrogen 20 Creatinine 2.87 Random Glucose 63 Total Protein 5.5 Albumin 1.8 Calcium Level 8.4 Alkaline Phosphatase 98 Aspartate Amino Transf (AST/SGOT) 26 Alanine Aminotransferase (ALT/SGPT) 12 Total Bilirubin 0.2 Sodium Level 144 Potassium Level 4.2 Chloride Level 99 Carbon Dioxide Level 30.2 Anion Gap 15 Estimat Glomerular Filtration Rate 16 Total Creatine Kinase 32 Troponin I LESS THAN 0.02 B-Type Natriuretic Peptide 336 Lactic Acid Level 6.9 Blood Gas Puncture Site CL Blood Gas Patient Temperature 98.6 Blood Gas HCO3 19 Blood Gas Base Excess -6.9 Blood Gas Oxygen Saturation 95 Arterial Blood pH 7.25 Arterial Blood Partial Pressure CO2 45 Arterial Blood Partial Pressure O2 91 Arterial Blood Oxygen Content 14.4 Arterial Blood Carboxyhemoglobin 1.2 Arterial Blood Methemoglobin 0.6 Blood Gas Hemoglobin 10.7 Oxygen Delivery Device VENTILATOR Blood Gas Ventilator Setting AC/R14/VT550/P5 Blood Gas Inspired Oxygen 60 Test 11/15/17 16:25 11/15/17 16:40 11/15/17 17:08 11/15/17 17:32 Nasal Screen MRSA (PCR) MRSA DETECTED Lactic Acid Level 13.0 Random Vancomycin Level 13.5 Test 11/15/17 20:10 11/16/17 05:00 Lactic Acid Level 11.1 White Blood Count 73.1 Red Blood Count 3.69 Hemoglobin 10.2 Hematocrit 33.1 Mean Corpuscular Volume 89.7 Mean Corpuscular Hemoglobin 27.5 Mean Corpuscular Hemoglobin Concent 30.7 Red Cell Distribution Width 20.9 Platelet Count 240 Mean Platelet Volume 7.9 Blood Urea Nitrogen 24 Creatinine 3.01 Random Glucose 262 Calcium Level 7.5 Sodium Level 139 Potassium Level 4.1 Chloride Level 101 Carbon Dioxide Level 23.1 Anion Gap 15 Estimat Glomerular Filtration Rate 15 Prealbumin 3 Date/Time Source Procedure Growth Status 11/15/17 11:50 Blood Peripheral Aerobic Blood Culture Pending Received 11/15/17 11:50 Blood Peripheral Anaerobic Blood Culture Pending Received 11/15/17 17:08 Nasal Washing Influenza Types A,B Antigen (NATALIE) - Final NEGATIVE FOR FLU A AND B ANTIGEN.... Complete 11/15/17 11:39 Urine Catheterized Urine Legionella Antigen - Final PRESUMPTIVE NEGATIVE FOR LEGIONELLA P... Complete 11/15/17 11:39 Urine Catheterized Urine Streptococcus pneumoniae Antigen (M - Final PRESUMPTIVE NEGATIVE FOR STREPTOCOCCU... Complete Result Diagram: 11/16/17 0500 11/16/17 0500 Personally reviewed images: Yes Imaging Last Impressions Abdomen/Pelvis CT 11/16/17 0000 Signed Impressions: Service Date/Time: Thursday, November 16, 2017 08:54 - CONCLUSION: 1. Moderate hydronephrosis right kidney and hydroureter. There is dense material layering within the right renal pelvis and distal ureter of uncertain etiology but could be hemorrhage. Urinalysis and clinical correlation. 2. Hyperdense left renal lesion likely complex cyst. 3. Scattered diverticulosis of the colon. 4. Left basilar consolidation. 5. Left-sided ventral wall hernia. El Nuñez MD Chest CT 11/15/17 9855 Signed Impressions: Service Date/Time: November 14:24 - CONCLUSION: 1. New consolidative infiltrate in the posterior right upper lobe most characteristic of pneumonia. 2. Consolidation also noted in the left lower lobe which is increased from the prior CT. 3. New abnormal streaky density in the posterior upper abdomen located posterior to the liver. This is nonspecific but could represent infection or inflammatory change. 4. Cardiomegaly. Chintan Marshall MD Head CT 11/15/17 1134 Signed Impressions: Service Date/Time: November 14:13 - CONCLUSION: 1. No acute hemorrhage or mass effect. 2. Atrophy and chronic small vessel ischemic change 3. Air-fluid levels in the maxillary sinuses most characteristic of acute sinusitis. Chintan Marshall MD Chest X-Ray 11/15/179 Signed Impressions: Service Date/Time: November 12:27 - CONCLUSION: ET tube 1.3 cm above the makeda in a somewhat low position. This could be pulled back 2-3 cm to be in a better position. Perry Frye MD Assessment and Plan Problem List: (1) Hydronephrosis ICD Code: N13.30 - Unspecified hydronephrosis (2) Pneumonia ICD Code: J18.9 - Pneumonia, unspecified organism Status: Acute (3) CHF (congestive heart failure) ICD Code: I50.9 - Heart failure, unspecified Status: Acute Assessment and Plan Patient with sepsis, concern for obstruction of the right collecting system Discussed with Oceanographer Assistant and ID. Given her clinical status and obesity, nephrostomy tube placement would be very difficult. Will attempt ureteral stent, however this is extremely high risk with significant risk of mortality Proceed with Cysto right ureteral stent placement as there is no other option in this clinic situation Mirza Ocampo MD Nov 16, 2017 10:05
[2017-11-16] MEDS ORDERED: LACTATED RINGER'S 1000 ML INJ 1,000 ML IV ONE (12:00)
[2017-11-16] MEDS ORDERED: PHENYLEPH/NS 1000 MCG/10 ML SYR IV ONE (12:00)
[2017-11-16] MEDS ORDERED: EPINEPHrine HCL (1:1000) 1 MG/ML VIAL IV ONE (12:00)
[2017-11-16] MEDS ORDERED: ceFAZolin INJ 1,000 MG VIAL IV ONE ×2 (12:00→14:45)
[2017-11-16] MEDS: NOREPINEPHRINE INJ 16 MG in DEXTROSE 5% IN WATER INJ 234 ML IV PRN ×2 (12:00)
[2017-11-16] MEDS ORDERED: ROCURONIUM INJ 50 MG/5 ML SYRINGE IV PUSH ONE (12:00)
--- NOTE | 2017-11-16 12:53 | PD.WCN.NOT ---
Wound Consult Description: Received wound care consult for bilateral buttocks and left heel from Doctor Mullins Communicated with: CHILO Owusu and Latasha miller RN and Doctor Mullins Recommendation: 1.Please L thigh skin breakdown gently with soft cloths, soap and water, rinse and pat dry. Apply antifungal Medline antifungal powder and Medline Calazime barrier cream mixed 50/50 to affected area BID. 2.Turn patient every 2 hours and PRN for comfort and offloading of cyndi prominences. 3. Please use ultra sorb pads under patient for moisture management and change as needed. 4. Please use moisture wicking pads for moisture management of intertriginous areas and change as needed 5. Please continue with heel raiser boots and apply skin prep to L heel DTI and leave open to air. Additional Information: Patient seen on IMC for evaluation of buttock and L heel wound management around 1200. Patient is ventilated and sedated with eyes opening to voice.Bilateral heels are noted with Heel raiser boots in place. L heel presents with non-blanchable purple discoloration, indicating deep tissue injury. Applied skin prep to L heel and left open to air. Reapplied heel boot back in place. Patient was turned to R side with the assistance of Berna La RN IMC, other RN IMC and underwriter. Patinet noted with an area of blanchable erythema to L posterior thigh measuring ~23cm x ~30cm that has opened to scattered partial thickness skin loss. Satellite lesions are noted to periwound. Wound etiology appears to be fungal, moisture and friction.Intertriginous area below pannus and groin are noted with moisture related erythema. Recommendations noted above. Patient Central line was dislodged and patient became unstable. Doctor Mullins and charge nurse in room with other staff to stabilize patient Iliana Johnson [facility] Nov 16, 2017 12:53
--- NOTE | 2017-11-16 13:12 | RADRPT ---
EXAM DATE/TIME: 11/16/2017 12:43 [place] COMPARISON: CHEST SINGLE AP, November 15, 2017, 12:27. INDICATIONS : Central line placement. MEDICAL HISTORY : Hypertension. Diabetes mellitus type II. SURGICAL HISTORY : None. ENCOUNTER: Subsequent ACUITY: 1 day PAIN SCORE: Non-responsive. LOCATION: Bilateral chest FINDINGS: Significantly rotated radiograph demonstrating grossly stable ETT and NGT coursing beyond the GE junc tion. Interval placement of right IJ central line with tip near the atriocaval junction. Redemonstrat ion of diffuse mild interstitial prominence and cardiomegaly. No gross pneumothorax. Remainder of exa m is unchanged. CONCLUSION: 1. Right IJ central line tip near the atriocaval junction. 2. No gross pneumothorax or significant interval change. Riccardo Stack MD on November 16, 2017 at 13:08 Board Certified Radiologist. This report was verified electronically.
[2017-11-16] MEDS ORDERED: ceFAZolin 2 GM PREMIX 50 ML ONE (13:43)
--- NOTE | 2017-11-16 14:11 | HHI.PR ---
Subjective Patient symptoms today Successful placement of right ureteral stent. However due to nonfunctional fluoroscopy, unable visualize proximal curl of the stent. Despite this, significant purulent material was expressed once stent was placed Objective Vital Signs Vital Signs Date Time Temp Pulse Resp B/P (MAP) Pulse Ox O2 Delivery O2 Flow Rate FiO2 11/16/17 09:13 96 100 11/16/17 07:40 94 40 11/16/17 06:00 106 11/16/17 06:00 100.8 106 15 79/56 (64) 92 100/46 (64) 11/16/17 05:08 103 102/49 11/16/17 05:08 105 105/49 11/16/17 05:07 115 105/49 11/16/17 04:00 100.6 102 15 107/50 (69) 94 11/16/17 04:00 102 11/16/17 04:00 40 11/16/17 03:56 94 40 11/16/17 02:00 106 11/16/17 00:00 101.1 122 15 107/66 (80) 95 11/16/17 00:00 122 11/16/17 00:00 40 11/15/17 23:28 142 88/56 11/15/17 23:15 123 78/50 /11/01 23:14 152 73/49 11/15/17 23:00 101.3 141 0 91 11/15/17 23:00 141 /11/01 22:21 120 105/53 /11/01 22:00 100.8 133 15 103/51 (68) 96 11/15/17 22:00 133 /11/01 21:26 130 109/51 11/15/17 21:00 144 /18 21:00 92 40 /11/01 21:00 100.9 144 15 105/51 (69) 92 18 20:00 100.9 143 15 91/46 (61) 90 11/15/17 20:00 143 /11/01 20:00 40 11/15/17 19:34 140 94/46 /18 19:33 130 65/46 2//18 19:00 141 76/46 /18 18:00 149 2/11/01 17:45 127 66/37 /1/18 16:53 95 40 11/15/17 16:00 102.2 142 15 94 Automatic Cuff 11/15/17 16:00 142 11/15/17 15:43 11/15/17 15:42 155 14 130/59 (82) 100 Ventilator 60 Intake & Output 11/16/17 11/16/17 07:00 19:00 Intake Total 700 ml Output Total 100 ml Balance 600 ml Intake Oral 0 ml IV Total 700 ml Output Urine Total 100 ml Result Diagram: 11/16/17 0500 11/16/17 0500 Imaging Last 24 hours Impressions Chest X-Ray 11/16/17 0000 Signed Impressions: Service Date/Time: Thursday, November 16, 2017 12:43 - CONCLUSION: 1. Right IJ central line tip near the atriocaval junction. 2. No gross pneumothorax or significant interval change. Riccardo Stack MD Abdomen/Pelvis CT 11/16/17 0000 Signed Impressions: Service Date/Time: Thursday, November 16, 2017 08:54 - CONCLUSION: 1. Moderate hydronephrosis right kidney and hydroureter. There is dense material layering within the right renal pelvis and distal ureter of uncertain etiology but could be hemorrhage. Urinalysis and clinical correlation. 2. Hyperdense left renal lesion likely complex cyst. 3. Scattered diverticulosis of the colon. 4. Left basilar consolidation. 5. Left-sided ventral wall hernia. El Nuñez MD Medications and IVs Current Medications Medications (Trade) Dose Ordered Sig/Mirta Route Start Time Stop Time Status Last Admin Propofol 100 ml @ 0 mls/hr TITRATE PRN IV 11/15/17 11:45 (Brethine Inj) 1 mg UNSCH PRN SQ 11/15/17 12:15 Fentanyl Citrate 250 ml @ 5 mls/hr TITRATE PRN IV 11/15/17 12:30 11/15/17 12:53 Diltiazem HCl 125 mg/Sodium Chloride 125 ml @ 5 mls/hr TITRATE PRN IV 11/15/17 12:30 11/16/17 05:08 Dopamine HCl/ Dextrose 500 ml @ 0 mls/hr TITRATE PRN IV 11/15/17 12:45 (Brethine Inj) 1 mg UNSCH PRN SQ 11/15/17 12:45 (Peridex 0.12% Liq) 15 ml BID@08,20 MT 11/15/17 20:00 11/16/17 08:36 (D50w (Vial) Inj) 25 ml UNSCH PRN IV PUSH 11/15/17 14:00 (NovoLIN R SUPPLEMENTAL SCALE) 1 Q6HR SQ 11/15/17 18:00 11/16/17 05:42 (Duoneb Neb) 1 ampule Q6HR NEB INH 11/15/17 16:00 11/16/17 07:40 (Duoneb Neb) 1 ampule Q2HR NEB PRN INH 11/15/17 14:00 11/15/17 21:05 Sodium Chloride 1,000 ml @ 125 mls/hr Q8H IV 11/15/17 15:00 11/16/17 08:35 (Tylenol) 650 mg Q6H PRN PO 11/15/17 14:00 (Pepcid Inj) 10 mg Q12HR IV PUSH 11/15/17 21:00 11/16/17 08:34 (Zofran Inj) 4 mg Q6H PRN IV PUSH 11/15/17 14:00 (Heparin Inj) 5,000 units Q8H SQ 11/15/17 15:00 11/16/17 05:43 Miscellaneous Information 1 Q361D XX 11/15/17 14:00 11/15/17 19:00 (Chlorhexidine 2% Cloth) 3 pack Taper DAILY@04 TOP 11/16/17 04:00 11/12/18 03:59 11/16/17 04:00 (Chlorhexidine 2% Cloth) 3 pack UNSCH PRN TOP 11/15/17 14:00 (Zelda-Colace) 1 tab BID PO 11/15/17 21:00 11/16/17 08:33 (Milk Of Magnesia Liq) 30 ml Q12H PRN PO 11/15/17 14:00 (Senokot) 17.2 mg Q12H PRN PO 11/15/17 14:00 (Dulcolax Supp) 10 mg DAILY PRN RECTAL 11/15/17 14:00 (Lactulose Liq) 30 ml DAILY PRN PO 11/15/17 14:00 Vasopressin 40 units/Dextrose 100 ml @ 6 mls/hr [id number] IV 11/15/17 14:12 11/16/17 05:07 (SoluCORTEF INJ) 50 mg Q6HR IV PUSH 11/15/17 16:15 11/16/17 05:09 Ceftolozane/ Tazobactam 375 mg/ Sodium Chloride 100 ml @ 100 mls/hr Q8H IV 11/15/17 17:30 11/16/17 08:33 Amiodarone HCl 450 mg/Sodium Chloride 250 ml @ 33.33 mls/ hr Q7H31M PRN IV 11/15/17 20:15 11/16/17 05:08 Norepinephrine Bitartrate 16 mg/ Dextrose 250 ml @ 1.87 mls/hr TITRATE PRN IV 11/15/17 22:45 11/15/17 23:14 Epinephrine HCl 8 mg/Dextrose 250 ml @ 5.62 mls/hr TITRATE PRN IV 11/15/17 22:45 11/15/17 23:15 Metronidazole 100 ml @ 100 mls/hr Q8H IV 11/16/17 08:00 11/16/17 08:33 (VANCOMYCIN for oral use only) 500 mg QID PO 11/16/17 06:45 11/16/17 08:35 Linezolid 300 ml @ 300 mls/hr Q12H IV 11/16/17 07:00 11/16/17 08:34 Azithromycin 500 mg/Sodium Chloride 250 ml @ 250 mls/hr Q24H IV 11/16/17 08:00 11/16/17 08:33 Assessment and Plan Assessment and Plan -6x[address] -Will need post op imaging to confirm proximal stent -Will follow Mirza Ocampo MD Nov 16, 2017 14:10
[2017-11-16] MEDS ORDERED: ceFAZolin 3,000 MG/NS 100 ML IV SCH ×2 (15:45)
[2017-11-16] MEDS ORDERED: SUCCINYLCHOLINE CHLORIDE 100 MG/5 ML SYRINGE IV PUSH ONE (16:00)
[2017-11-16] MEDS ORDERED: fentaNYL DRIP 250 ML IV PRN (16:00)
[2017-11-16] MEDS ORDERED: MIDAZOLAM HCL 5 MG/ML VIAL (1 ML) IV PUSH ONE (16:00)
--- NOTE | 2017-11-16 17:21 | HHI.CCPN ---
Subjective Remarks/Hospital Course Hospital Course: 67yF with super morbid obesity who has had multiple prior admissions for MRSA pneumonia and respiratory failure presents by EMS for recurrent respiratory failure. She resides in a SNF. She was found unresponsive this morning. She was intubated in the field. In the emergency department she was hypotensive despite ivf resuscitation and required norepinephrine for vasopressor support. she has a wbc 52k, lactate of 6.9, Cr 2.87 (baseline 0.5, prior admission discharge was 1.8). u/a concerning for probable UTI as well. Subjective: 11/16: remained unstable throughout the night overnight. on 3 vasopressors. this morning, no better, wbc higher. decision by Dr. Cartagena and myself to emergently CT abd/pelvis to rule out source control, despite ongoing hemodynamic instability. CT abd/pelvis demonstrated right hydronephrosis with likely obstructive pyelonephritis. discussed with urology and interventional radiology : likely to decompensate during procedure. unable to physically prone patient. difficult technically with high risk to do supine lateral CT guided perc nephrostomy tube. urology to take to the OR for cysto with stenting. Prior to leaving for OR, patient's central line was pulled accidentally. patient had no other iv access. I/O needles unavailable. emergently replaced central line in right IJ (see separate procedure note for details). due to ongoing shock, patient's blood pressure in 40s systolic during this time. restarted vasopressors after central access regained. went to OR. cultures growing pseudomonas. Objective Vital Signs Date Time Temp Pulse Resp B/P (MAP) Pulse Ox O2 Delivery O2 Flow Rate FiO2 11/16/17 15:11 93 60 11/16/17 12:00 108 85/45 11/16/17 06:00 100.8 15 11/15/17 15:42 Ventilator Intake and Output 11/16/17 11/16/17 11/16/17 07:59 15:59 23:59 Intake Total 700 ml 850 ml Output Total 100 ml 5 ml Balance 600 ml 845 ml Result Diagram: 11/16/17 0500 11/16/17 0500 Other Results Microbiology Date/Time Source Procedure Growth Status 11/15/17 17:08 Nasal Washing Influenza Types A,B Antigen (NATALIE) - Final NEGATIVE FOR FLU A AND B ANTIGEN.... Complete 11/15/17 11:39 Urine Catheterized Urine Legionella Antigen - Final PRESUMPTIVE NEGATIVE FOR LEGIONELLA P... Complete 11/15/17 11:39 Urine Catheterized Urine Streptococcus pneumoniae Antigen (M - Final PRESUMPTIVE NEGATIVE FOR STREPTOCOCCU... Complete Imaging Last Impressions Chest X-Ray 11/15/17 1134 Signed Impressions: Service Date/Time: November 12:27 - CONCLUSION: ET tube 1.3 cm above the makdea in a somewhat low position. This could be pulled back 2-3 cm to be in a better position. Perry Frye MD Objective Remarks gen: super morbidly obese female, lying in bed, intubated, sedated heent: perrl. eomi. mucous membranes moist neck: unable to assess jvd due to large neck circumference. trachea midline chest: muffled breath sounds. equal chest rise. cv: tachycardic rate, irregularly irregular rhythm. afib by tele. abd: morbidly obese, soft, nontender, nondistended. no guarding. extr: good cap refill. neuro: RASS -2. follows commands. A/P Assessment and Plan Assessment: This is a 67yF with super morbid obesity and a chronic debilitated course which has included multiple prior respiratory failures requiring mechanical ventilation, including a recent intubation a year ago requiring tracheostomy and LTAC admission who presents with septic shock, multiorgan failure. Remains in shock. likely pyelonephritis as source. very poor prognosis. prealbumin of 3 suggestive of long-standing severe protein calorie malnutrition. clinically worse than yesterday. will continue aggressive measures per family request. remains critically ill. Neuro: Metabolic Encephalopathy - frequent neuro checks - prop, fent for goal RASS -2. Resp: Acute hypoxic and hypercarbic respiratory failure Healthcare Associated Pneumonia - vent bundle, elevated hob, nebs - abx as below. - sputum cultures - no SBT today - wean fio2 for goal spo2 > 90% CV: Septic Shock - worse, persistent. Atrial fibrillation with rapid ventricular response - mivf @ 125 cc/hr - amiodarone drip - levophed and vasopressin, epinephrine for goal map > 65 mmHg. - stress dose steroids. Renal: Acute Kidney Injury Acute pyelonephritis - strict i/o's - monitor Cr on daily cbc - urology consult - emergent cysto with stent FEN/GI: Super Morbid Obesity Lactic Acidosis Anion-gap Metabolic acidosis Acute intravascular volume overload Severe acute protein calorie malnutrition - NPO while in shock - pre-albumin 3. trend weekly. - ivf - trend lactates - ICU electrolyte protocol when Cr improves. Heme/ID: History of prior MRSA pneumonia Acute pyelonephritis Pseudomonas bacteremia - ID on board. - abx per Mitzi - 11/15 blood cultures: pseudomonas - 11/15 urine culture: pseudomonas Endocrine: Hyperglycemia of Critical Illness - q6h SSI, med scale Prophylaxis: SCDs, SQH Pepcid Lines: - 11/15 ER placed right femoral TLC, this was pulled today. - 11/16 emergent right IJ triple lumen catheter - 11/15 left radial art line. - Solitario Dispo: remain in ICU. critically ill. This patient remains critically ill with one or more organ systems which are or may become a threat to life. I have spent in excess of 89 minutes discontinuously in the care and management of this patient. This time is exclusive of procedures, and includes, but is not limited to, evaluation of the patient, review of the medical record, discussions with family, consultants, nursing staff, or respiratory therapy, and documentation in the medical record. Christ Mullins MD Nov 16, 2017 17:21
--- NOTE | 2017-11-16 17:23 | PD.PROCEDR ---
Procedure Note Procedure Central Line Procedure Note Right internal jugular 7 Nauruan 20 cm triple lumen catheter Diagnosis: Septic shock Indications: Highly potent vasoactive substances Consent: Emergent Anesthesia: Propofol and fentanyl Description of the Procedure: The patient's femoral triple-lumen catheter was accidentally pulled out. The patient had no additional IV access. The patient was systolic of 40 and was acutely unstable and tres-cardiac arrest. I emergently replaced her central line in order to obtain IV access. Intraosseous needles were not available. The patient was placed in the supine, mild-Trendelenburg position. The area was prepped and draped sterilely. A 19g needle was inserted under negative pressure aspiration and dark venous blood was obtained. A guidewire was inserted easily without resistance. A small incision was made using a #11 blade. Using a modified Seldinger technique, the dilator and Nauruan, 20 cm catheter were advanced over the guidewire without resistance. All ports were aspirated and flushed, and had brisk blood return. The line was secured at 20 cm at the skin using 2-0 silk interrupted sutures. A Biopatch and Transparent sterile dressing were applied. Patient remained hemodynamically unstable throughout the procedure. No immediate consultations were noted. Ultrasound Guidance: Ultrasound guidance was used to identify the internal jugular vein. The vascular anatomy of the right anterior neck was normal. The vessel was cannulated under direct, real-time ultrasound visualization. After placement of the guidewire, confirmation of the guidewire in the lumen of the vessel was made using ultrasound visualization, before dilation of the tract. A Chest x-ray has been ordered. I personally performed the procedure. Christ Mullins MD Nov 16, 2017 17:23
--- NOTE | 2017-11-16 21:41 | EKG ---
Date Performed: 11/16/2017 Time Performed: 06:03:18 PTAGE: 67 years EKG: Sinus rhythm . Left axis deviation Left bundle branch block Consider repeat tracing to make sure that the EKG was not performed on the wrong patient Abnormal ECG PREVIOUS TRACING : 11/15/2017 12.14 DOCTOR: Brenden Santillan Interpretating Date/Time 11/16/2017 21:40:39
--- NOTE | 2017-11-16 21:43 | EKG ---
Date Performed: 11/15/2017 Time Performed: 12:14:46 PTAGE: 67 years EKG: ATRIAL FIBRILLATION WITH RAPID VENTRICULAR RESPONSE LOW QRS VOLTAGE IN PRECORDIAL LEADS POS SIBLE RIGHT VENTRICULAR CONDUCTION DELAY MINIMAL ST DEPRESSION ABNORMAL QRS-T ANGLE Compared to previ ous tracing, ST changes are less prominent ABNORMAL ECG NO PREVIOUS TRACING DOCTOR: Brenden Santillan Interpretating Date/Time 11/16/2017 21:42:17
[2017-11-17] VITALS (70 sets, daily range): BP systolic 69–153; BP diastolic 46–146; PULSE 81–118; RESP 15–18; TEMP 97.6–98.7; O2SAT 92–100
[2017-11-17] MEDS: CEFTOLOZANE-TAZOBACTAM INJ 375 MG in SODIUM CHLORIDE 0.9% INJ 100 ML IV SCH ×3 (01:16→17:04)
[2017-11-17] MEDS: RESP: ALBUTEROL 2.5 MG/IPRATROPIUM 0.5 MG NEB (SCH) INH ×4 (03:48→19:35)
[2017-11-17] MEDS: CHLORHEXIDINE GLUCONATE 2 % 1 PACK (2 CLOTHS) TOP SCH (04:00)
[2017-11-17] MEDS: INSULIN NovoLIN REGULAR SUPPLEMENTAL SCALE SQ SCH ×4 (05:37→23:21)
[2017-11-17] MEDS: HYDROCORTISONE SOD SUCCINATE 100 MG VIAL IV PUSH SCH ×4 (05:37→23:21)
[2017-11-17] MEDS: LINEZOLID 600 MG PREMIX 300 ML IV SCH ×2 (05:38→18:04)
[2017-11-17] MEDS: HEPARIN SODIUM - SQ 10,000 UNITS/ML VIAL SQ SCH ×3 (05:39→23:21)
[2017-11-17 06:16] LABS: BICARBONATE 27.1 MEQ/L (21.0-32.0); CALCIUM 7.1 MG/DL (8.5-10.1); CREATININE 3.01 MG/DL (0.50-1.00)
[2017-11-17 06:18] LABS: HEMATOCRIT 31.2 % (35.0-46.0); MEAN CELL VOLUME 87.1 FL (80.0-100.0); MEAN CORPUSCULAR HGB CONC 32.2 % (32.0-36.0); MEAN PLATELET VOLUME 8.2 FL (7.0-11.0); PLATELET COUNT 231 TH/MM3 (150-450); RED BLOOD COUNT 3.58 MIL/MM3 (4.00-5.30); RED CELL DISTRIBUTION WIDTH 21.3 % (11.6-17.2); WHITE BLOOD COUNT 52.1 TH/MM3 (4.0-11.0)
[2017-11-17] MEDS: NOREPINEPHRINE INJ 16 MG in DEXTROSE 5% IN WATER INJ 234 ML IV PRN ×2 (06:29)
[2017-11-17] MEDS: fentaNYL DRIP 250 ML IV PRN (06:30)
[2017-11-17 06:43] LABS: CALCIUM-PROTEIN CORRECTED 8.3 MG/DL (8.5-10.1); TOTAL PROTEIN 4.9 GM/DL (6.4-8.2)
--- NOTE | 2017-11-17 06:44 | HHI.CCPN ---
Subjective Remarks/Hospital Course Hospital Course: 67yF with super morbid obesity who has had multiple prior admissions for MRSA pneumonia and respiratory failure presents by EMS for recurrent respiratory failure. She resides in a SNF. She was found unresponsive this morning. She was intubated in the field. In the emergency department she was hypotensive despite ivf resuscitation and required norepinephrine for vasopressor support. she has a wbc 52k, lactate of 6.9, Cr 2.87 (baseline 0.5, prior admission discharge was 1.8). u/a concerning for probable UTI as well. Subjective: 2/: remained unstable throughout the night overnight. on 3 vasopressors. this morning, no better, wbc higher. decision by Dr. Cartagena and myself to emergently CT abd/pelvis to rule out source control, despite ongoing hemodynamic instability. CT abd/pelvis demonstrated right hydronephrosis with likely obstructive pyelonephritis. discussed with urology and interventional radiology : likely to decompensate during procedure. unable to physically prone patient. difficult technically with high risk to do supine lateral CT guided perc nephrostomy tube. urology to take to the OR for cysto with stenting. Prior to leaving for OR, patient's central line was pulled accidentally. patient had no other iv access. I/O needles unavailable. emergently replaced central line in right IJ (see separate procedure note for details). due to ongoing shock, patient's blood pressure in 40s systolic during this time. restarted vasopressors after central access regained. went to OR. cultures growing pseudomonas. 2: minimal improvements. taken to OR yesterday for cysto. minimal uop overnight. off epinephrine but remains on 2 vasopressors, in shock. wbc downtrending but > 50k. Objective Vital Signs Date Time Temp Pulse Resp B/P (MAP) Pulse Ox O2 Delivery O2 Flow Rate FiO2 11/17/17 06:29 94 109/57 11/17/17 04:00 98.0 15 94 11/17/17 04:00 60 11/15/17 15:42 Ventilator Intake and Output 11/17/17 11/17/17 11/18/17 08:00 16:00 00:00 Intake Total 700 ml Output Total 125 ml Balance 575 ml Result Diagram: 11/17/17 0450 11/17/17 0450 Other Results Microbiology Date/Time Source Procedure Growth Status 11/15/17 17:08 Nasal Washing Influenza Types A,B Antigen (NATALIE) - Final NEGATIVE FOR FLU A AND B ANTIGEN.... Complete 11/15/17 11:39 Urine Catheterized Urine Legionella Antigen - Final PRESUMPTIVE NEGATIVE FOR LEGIONELLA P... Complete 11/15/17 11:39 Urine Catheterized Urine Streptococcus pneumoniae Antigen (M - Final PRESUMPTIVE NEGATIVE FOR STREPTOCOCCU... Complete Imaging Last Impressions Chest X-Ray 11/15/17 1134 Signed Impressions: Service Date/Time: November 12:27 - CONCLUSION: ET tube 1.3 cm above the makeda in a somewhat low position. This could be pulled back 2-3 cm to be in a better position. Perry Frye MD Objective Remarks gen: super morbidly obese female, lying in bed, intubated, sedated heent: perrl. eomi. mucous membranes moist neck: unable to assess jvd due to large neck circumference. trachea midline chest: muffled breath sounds. equal chest rise. cv: tachycardic rate, irregularly irregular rhythm. afib by tele. abd: morbidly obese, soft, nontender, nondistended. no guarding. extr: good cap refill. neuro: RASS -2. withdraws to pain. A/P Assessment and Plan Assessment: This is a 67yF with super morbid obesity and a chronic debilitated course which has included multiple prior respiratory failures requiring mechanical ventilation, including a recent intubation a year ago requiring tracheostomy and LTAC admission who presents with septic shock, multiorgan failure. Remains in shock. Pyelonephritis as source. very poor prognosis. prealbumin of 3 suggestive of long-standing severe protein calorie malnutrition. shock and renal failure persist, despite now with source control. will continue aggressive measures per family request. remains critically ill. Neuro: Metabolic Encephalopathy - frequent neuro checks - prop, fent for goal RASS -2. Resp: Acute hypoxic and hypercarbic respiratory failure Healthcare Associated Pneumonia - vent bundle, elevated hob, nebs - abx as below. - sputum cultures - no SBT today, still in shock. - wean fio2 for goal spo2 > 90% CV: Septic Shock - severe, persistent. Atrial fibrillation with rapid ventricular response - mivf @ 125 cc/hr - amiodarone drip - levophed and vasopressin for goal map > 65 mmHg. - stress dose steroids. Renal: Acute Kidney Injury Acute pyelonephritis - strict i/o's - monitor Cr on daily cbc - urology consult - emergent cysto with stent 11/16 FEN/GI: Super Morbid Obesity Lactic Acidosis Anion-gap Metabolic acidosis Acute intravascular volume overload Severe acute protein calorie malnutrition - NPO while in shock - pre-albumin 3. trend weekly. - ivf - trend lactates - ICU electrolyte protocol when Cr improves. Heme/ID: History of prior MRSA pneumonia Acute pyelonephritis Pseudomonas bacteremia - ID on board. - abx per Nemani - 11/15 blood cultures: pseudomonas - 11/15 urine culture: pseudomonas Endocrine: Hyperglycemia of Critical Illness - q6h SSI, med scale Prophylaxis: SCDs, SQH Pepcid Lines: - 11/15 ER placed right femoral TLC, unintentionally discontinued 11/16. - 11/16 emergent right IJ triple lumen catheter - 11/15 left radial art line. - Solitario Dispo: remain in ICU. critically ill. This patient remains critically ill with one or more organ systems which are or may become a threat to life. I have spent in excess of 33 minutes discontinuously in the care and management of this patient. This time is exclusive of procedures, and includes, but is not limited to, evaluation of the patient, review of the medical record, discussions with family, consultants, nursing staff, or respiratory therapy, and documentation in the medical record. Christ Mullins MD Nov 17, 2017 06:44
[2017-11-17] MEDS: CHLORHEXIDINE 0.12% (ORAL KIT) 15 ML CUP MT SCH ×4 (08:00→19:46)
[2017-11-17] MEDS: SODIUM CHLOR 0.9% 1000 ML INJ 1,000 ML IV SCH ×3 (08:10→23:24)
[2017-11-17] MEDS: DOCUSATE SODIUM 50 MG/SENNA 8.6 MG TAB PO SCH ×2 (08:10→19:46)
[2017-11-17] MEDS: VANCOMYCIN 500 MG VIAL (FOR ORAL USE ONLY) PO SCH ×4 (08:10→19:45)
[2017-11-17] MEDS: metroNIDAZOLE 500 MG INJ 100 ML IV SCH ×3 (08:10→23:21)
[2017-11-17] MEDS: AZITHROMYCIN INJ 500 MG in SODIUM CHLOR 0.9% 250 ML INJ 250 ML IV SCH (08:10)
[2017-11-17] MEDS: FAMOTIDINE 20 MG/2 ML VIAL IV PUSH SCH ×2 (08:20→19:46)
--- NOTE | 2017-11-17 09:43 | HHI.IDPN ---
Subjective Subjective Remarks ID COVERAGE is a 67 y/o CF morbidly obese with BMI 58.7 kg/m2 who has had multiple prior admissions for MRSA pneumonia and respiratory failure presents by EMS for recurrent respiratory failure. She resides in a SNF. She was found unresponsive this morning. She was intubated in the field. She has a wbc 52k, lactate of 6.9, Cr 2.87 (baseline 0.5, prior admission discharge was 1.8). u/a concerning for probable UTI as well. In the emergency department patient received 3 IV fluid boluses and continued to be hypotensive needing vasopressor support. Upon review of records it appears she was recently treated in Oct 15 for UTI at [facility] with macrodeana. LOBOR from [facility] with no antibiotics but was on lactobacillus. Spoke to CHILO Moura at [facility] patient has 2-3 episodes of vomiting yesterday at [facility] and received antiemetics. T:98, BP: 110/62, 96% RA, BS: 108. Patient was not on any antibiotics. No diarrhea. Lasix increased due to pedal edema. No cultures drawn. No flu test done per records. She has a prior h/o admission at [facility] admitted in late 2016 when she was in the ICU intubated needing a trach eventually. During that admission patient was treated for MRSA pneumonia but also she has a history of pseudomonas infections in the past. Pseudomonas in the past with pansensitive cultures but given her multiple hospitalization and multiple courses of antibiotics she stands at this for multidrug-resistant Pseudomonas. At the time of my evaluation patient is in the IMC appears very critically ill intubated. Patient is on vasopressin 0.04, we will fed 40 mics, epinephrine 10/9, amiodarone drip at 1 g. Patient has 0 urine output at the present time. She has small white secretions. She has no diarrhea. Abdomen appears benign. No response to verbal or other stimuli for me but RN reports when daughter was here earlier she opened eyes, moved limbs and squeezed RNs fingers. Currently sedation is off but patient in ARF with no urine output. Infectious disease consultation was requested for evaluation and management of septic shock, pneumonia. Notes reviewed D/W RN On pressors - levophed and vasopressin SEdated, on the vent, on fentanyl FiO2 at 55% Secretions not much, pale white. Solitario in place, blood tinged S/P urologic procedure 2/2 UO low Creatinine rising Temps better overnight WBC down to 52K from 73K Atrial fib, on cardizem and cordarone Antibiotics Current Medications Zerbaxa IV Oral Vancomycin Zyvox Flagyl Zithromax Medications (Trade) Dose Ordered Sig/Mirta Route Start Time Stop Time Status Last Admin Propofol 100 ml @ 0 mls/hr TITRATE PRN IV 11/15/17 11:45 (Brethine Inj) 1 mg UNSCH PRN SQ 11/15/17 12:15 Fentanyl Citrate 250 ml @ 5 mls/hr TITRATE PRN IV 11/15/17 12:30 11/17/17 06:30 Diltiazem HCl 125 mg/Sodium Chloride 125 ml @ 5 mls/hr TITRATE PRN IV 11/15/17 12:30 11/16/17 22:27 Dopamine HCl/ Dextrose 500 ml @ 0 mls/hr TITRATE PRN IV 11/15/17 12:45 (Brethine Inj) 1 mg UNSCH PRN SQ 11/15/17 12:45 (Peridex 0.12% Liq) 15 ml BID@08,20 MT 11/15/17 20:00 11/17/17 08:20 (D50w (Vial) Inj) 25 ml UNSCH PRN IV PUSH 11/15/17 14:00 (NovoLIN R SUPPLEMENTAL SCALE) 1 Q6HR SQ 11/15/17 18:00 11/16/17 05:42 (Duoneb Neb) 1 ampule Q6HR NEB INH 11/15/17 16:00 11/17/17 03:48 (Duoneb Neb) 1 ampule Q2HR NEB PRN INH 11/15/17 14:00 11/15/17 21:05 Sodium Chloride 1,000 ml @ 125 mls/hr Q8H IV 11/15/17 15:00 11/17/17 08:10 (Tylenol) 650 mg Q6H PRN PO 11/15/17 14:00 (Pepcid Inj) 10 mg Q12HR IV PUSH 11/15/17 21:00 11/17/17 08:20 (Zofran Inj) 4 mg Q6H PRN IV PUSH 11/15/17 14:00 (Heparin Inj) 5,000 units Q8H SQ 11/15/17 15:00 11/17/17 05:39 Miscellaneous Information 1 Q361D XX 11/15/17 14:00 11/15/17 19:00 (Chlorhexidine 2% Cloth) 3 pack Taper DAILY@04 TOP 11/16/17 04:00 11/12/18 03:59 11/17/17 04:00 (Chlorhexidine 2% Cloth) 3 pack UNSCH PRN TOP 11/15/17 14:00 (Zelda-Colace) 1 tab BID PO 11/15/17 21:00 11/17/17 08:10 (Milk Of Magnesia Liq) 30 ml Q12H PRN PO 11/15/17 14:00 (Senokot) 17.2 mg Q12H PRN PO 11/15/17 14:00 (Dulcolax Supp) 10 mg DAILY PRN RECTAL 11/15/17 14:00 (Lactulose Liq) 30 ml DAILY PRN PO 11/15/17 14:00 Vasopressin 40 units/Dextrose 100 ml @ 6 mls/hr [id number] IV 11/15/17 14:12 11/16/17 23:58 (SoluCORTEF INJ) 50 mg Q6HR IV PUSH 11/15/17 16:15 11/17/17 05:37 Ceftolozane/ Tazobactam 375 mg/ Sodium Chloride 100 ml @ 100 mls/hr Q8H IV 11/15/17 17:30 11/17/17 01:16 Amiodarone HCl 450 mg/Sodium Chloride 250 ml @ 33.33 mls/ hr Q7H31M PRN IV 11/15/17 20:15 11/16/17 22:01 Norepinephrine Bitartrate 16 mg/ Dextrose 250 ml @ 1.87 mls/hr TITRATE PRN IV 11/15/17 22:45 11/17/17 06:29 Epinephrine HCl 8 mg/Dextrose 250 ml @ 5.62 mls/hr TITRATE PRN IV 11/15/17 22:45 11/15/17 23:15 Metronidazole 100 ml @ 100 mls/hr Q8H IV 11/16/17 08:00 11/17/17 08:10 (VANCOMYCIN for oral use only) 500 mg QID PO 11/16/17 06:45 11/17/17 08:10 Linezolid 300 ml @ 300 mls/hr Q12H IV 11/16/17 07:00 11/17/17 05:38 Azithromycin 500 mg/Sodium Chloride 250 ml @ 250 mls/hr Q24H IV 11/16/17 08:00 11/17/17 08:10 Cefazolin Sodium 3000 mg/Sodium Chloride 130 ml @ 200 mls/hr AUTOMATIC TIRE TESTER IV 11/16/17 15:45 11/19/17 15:44 (Peridex 0.12% Liq) 15 ml BID@08,20 MT 11/16/17 20:00 Fentanyl Citrate 250 ml @ 5 mls/hr TITRATE PRN IV 11/16/17 16:00 Lines RIJ TLC Past Medical History Past Medical History Chronic asthma home oxygen Atrial fibrillation Hyperlipidemia Hypertension excellent diabetes mellitus GERD Morbid obesity BMI 55 Past Surgical History Appendectomy Hernia surgery Tracheostomy placement Allergies: Coded Allergies: penicillin G (Unverified Allergy, Severe, 05/29/17) Objective . Vital Signs Date Time Temp Pulse Resp B/P (MAP) Pulse Ox O2 Delivery O2 Flow Rate FiO2 11/17/17 08:30 90 18 93/61 (72) 95 103/67 (79) 11/17/17 08:15 91 15 87/58 (68) 95 94/50 (65) 11/17/17 08:00 89 11/17/17 08:00 55 11/17/17 08:00 97.6 89 15 84/56 (65) 94 90/53 (65) 11/17/17 07:45 88 15 90/61 (71) 95 86/54 (65) 11/17/17 07:30 92 15 85/57 (66) 95 97/52 (67) 11/17/17 07:15 90 15 91/62 (72) 95 103/49 (67) 11/17/17 07:00 90 15 81/57 (65) 95 107/46 (66) 11/17/17 06:29 94 109/57 11/17/17 06:00 98 11/17/17 05:45 91 88/54 11/17/17 04:45 93 88/51 11/17/17 04:00 98.0 103 15 82/66 (71) 94 135/99 (111) 11/17/17 04:00 60 11/17/17 04:00 103 2/3/18 04:00 103 135/99 2/3/18 03:50 97 60 2/3/18 02:30 93 94/50 2/3/18 02:00 99 2/3/18 02:00 99 111/51 2/3/18 01:30 99 109/53 2/3/18 01:00 99 99/51 2/3/18 00:30 101 121/50 2/3/18 00:00 102 2/3/18 00:00 60 2/3/18 00:00 97.9 102 15 69/61 (64) 96 108/55 (72) 218 00:00 102 108/55 2/2/18 23:58 98 110/51 2/2/18 23:50 97 60 2/2/18 23:00 101 115/50 2/2/18 22:27 96 116/53 2/2/18 22:01 104 112/59 2/2/18 22:00 101 2//18 20:00 98.3 107 15 72/61 (65) 95 122/51 (74) 2/18 20:00 60 2/2/18 20:00 107 2/2/18 19:39 96 60 2/2/18 19:00 99 107/51 2/2/18 19:00 99 107/51 2/2/18 19:00 99 107/51 2/2/18 19:00 99 107/51 2/2/18 19:00 99 107/51 2/2/18 18:00 103 2/2/18 16:00 98.3 103 15 92/85 (87) 94 133/51 (78) 2/18 16:00 60 2/2/18 16:00 103 2/2/18 15:11 93 60 2/2/18 12:00 40 2/2/18 12:00 100.2 108 18 85/78 (80) 93 116/58 (77) 2/18 12:00 108 85/45 2//18 12:00 108 2/2/18 10:00 103 2/3/18 2/3/18 2/4/18 15:00 23:00 07:00 Intake Total 603 ml Balance 603 ml IV Total 603 ml . Laboratory Tests Test 11/15/17 11:47 2/2/18 05:00 11/17/17 04:50 White Blood Count 52.8 TH/MM3 73.1 TH/MM3 52.1 TH/MM3 Red Blood Count 4.11 MIL/MM3 3.69 MIL/MM3 3.58 MIL/MM3 Hemoglobin 11.1 GM/DL 10.2 GM/DL 10.0 GM/DL Hematocrit 37.2 % 33.1 % 31.2 % Mean Corpuscular Volume 90.5 FL 89.7 FL 87.1 FL Mean Corpuscular Hemoglobin 26.9 PG 27.5 PG 28.0 PG Mean Corpuscular Hemoglobin Concent 29.7 % 30.7 % 32.2 % Red Cell Distribution Width 20.7 % 20.9 % 21.3 % Platelet Count 309 TH/MM3 240 TH/MM3 231 TH/MM3 Mean Platelet Volume 8.2 FL 7.9 FL 8.2 FL Neutrophils (%) (Auto) 94.3 % Lymphocytes (%) (Auto) 2.1 % Monocytes (%) (Auto) 3.6 % Eosinophils (%) (Auto) 0.0 % Basophils (%) (Auto) 0.0 % Neutrophils # (Auto) 49.8 TH/MM3 Lymphocytes # (Auto) 1.1 TH/MM3 Monocytes # (Auto) 1.9 TH/MM3 Eosinophils # (Auto) 0.0 TH/MM3 Basophils # (Auto) 0.0 TH/MM3 CBC Comment AUTO DIFF Differential Total Cells Counted 100 Neutrophils % (Manual) 64 % Band Neutrophils % 18 % Lymphocytes % 2 % Monocytes % 5 % Neutrophils # (Manual) 49.1 TH/MM3 Metamyelocytes 9 % Myelocytes 2 % Differential Comment FINAL DIFF MANUAL Toxic Vacuolation PRESENT Platelet Estimate NORMAL Platelet Morphology Comment NORMAL Basophilic Stippling FAINT Stomatocytes 1+ Laboratory Tests Test 11/15/17 11:47 11/15/17 11:50 11/15/17 16:40 11/15/17 20:10 Blood Urea Nitrogen 20 MG/DL Creatinine 2.87 MG/DL Random Glucose 63 MG/DL Total Protein 5.5 GM/DL Albumin 1.8 GM/DL Calcium Level 8.4 MG/DL Alkaline Phosphatase 98 U/L Aspartate Amino Transf (AST/SGOT) 26 U/L Alanine Aminotransferase (ALT/SGPT) 12 U/L Total Bilirubin 0.2 MG/DL Sodium Level 144 MEQ/L Potassium Level 4.2 MEQ/L Chloride Level 99 MEQ/L Carbon Dioxide Level 30.2 MEQ/L Anion Gap 15 MEQ/L Estimat Glomerular Filtration Rate 16 ML/MIN Total Creatine Kinase 32 U/L Troponin I LESS THAN 0.02 NG/ML B-Type Natriuretic Peptide 336 PG/ML Lactic Acid Level 6.9 mmol/L 13.0 mmol/L 11.1 mmol/L Test 11/16/17 05:00 11/17/17 04:50 Blood Urea Nitrogen 24 MG/DL 31 MG/DL Creatinine 3.01 MG/DL 3.01 MG/DL Random Glucose 262 MG/DL 174 MG/DL Calcium Level 7.5 MG/DL 7.1 MG/DL Sodium Level 139 MEQ/L 138 MEQ/L Potassium Level 4.1 MEQ/L 4.2 MEQ/L Chloride Level 101 MEQ/L 102 MEQ/L Carbon Dioxide Level 23.1 MEQ/L 27.1 MEQ/L Anion Gap 15 MEQ/L 9 MEQ/L Estimat Glomerular Filtration Rate 15 ML/MIN 15 ML/MIN Prealbumin 3 MG/DL Total Protein 4.9 GM/DL Protein Corrected Calcium 8.3 MG/DL Microbiology Date/Time Source Procedure Growth Status 11/15/17 11:50 Blood Peripheral Aerobic Blood Culture - Preliminary Pseudomonas Aeruginosa Resulted 11/15/17 11:50 Blood Peripheral Anaerobic Blood Culture - Preliminary NO GROWTH IN 1 DAY Resulted 11/15/17 11:45 Blood Peripheral Aerobic Blood Culture - Preliminary NO GROWTH IN 1 DAY Resulted 11/15/17 11:45 Blood Peripheral Anaerobic Blood Culture - Preliminary NO GROWTH IN 1 DAY Resulted 11/15/17 17:08 Nasal Washing Influenza Types A,B Antigen (NATALIE) - Final NEGATIVE FOR FLU A AND B ANTIGEN.... Complete 11/15/17 16:20 Sputum Endotracheal Gram Stain - Final Resulted 11/15/17 16:20 Sputum Endotracheal Sputum Culture - Preliminary IMMATURE GROWTH - REINCUBATE Resulted 11/15/17 11:39 Urine Catheterized Urine Legionella Antigen - Final PRESUMPTIVE NEGATIVE FOR LEGIONELLA P... Complete 11/15/17 11:39 Urine Catheterized Urine Streptococcus pneumoniae Antigen (M - Final PRESUMPTIVE NEGATIVE FOR STREPTOCOCCU... Complete 11/15/17 11:39 Urine Clean Catch Urine Culture - Final Pseudomonas Aeruginosa Complete Imaging Chest X-Ray 11/16/17 0000 Signed Impressions: Service Date/Time: Thursday, November 16, 2017 12:43 - CONCLUSION: 1. Right IJ central line tip near the atriocaval junction. 2. No gross pneumothorax or significant interval change. Riccardo Stack MD Abdomen/Pelvis CT 11/16/17 0000 Signed Impressions: Service Date/Time: Thursday, November 16, 2017 08:54 - CONCLUSION: 1. Moderate hydronephrosis right kidney and hydroureter. There is dense material layering within the right renal pelvis and distal ureter of uncertain etiology but could be hemorrhage. Urinalysis and clinical correlation. 2. Hyperdense left renal lesion likely complex cyst. 3. Scattered diverticulosis of the colon. 4. Left basilar consolidation. 5. Left-sided ventral wall hernia. El Nuñez MD Chest CT 11/15/17 1255 Signed Impressions: Service Date/Time: November 14:24 - CONCLUSION: 1. New consolidative infiltrate in the posterior right upper lobe most characteristic of pneumonia. 2. Consolidation also noted in the left lower lobe which is increased from the prior CT. 3. New abnormal streaky density in the posterior upper abdomen located posterior to the liver. This is nonspecific but could represent infection or inflammatory change. 4. Cardiomegaly. Chintan Marshall MD Head CT 11/15/17 1134 Signed Impressions: Service Date/Time: November 14:13 - CONCLUSION: 1. No acute hemorrhage or mass effect. 2. Atrophy and chronic small vessel ischemic change 3. Air-fluid levels in the maxillary sinuses most characteristic of acute sinusitis. Chintan Marshall MD Physical Exam GENERAL: Morbidly obese patient, intubated. NAD SKIN: Ecchymoses noted. Left thigh large 15x10 cm approx area of erythema, abrasion of skin noted, looks better Skin folds in groin and breast with erythema and fungal overgrowth, improving HEAD: Atraumatic. Normocephalic. No temporal or scalp tenderness. EYES: Pupils equal round and reactive. No icterus, pale conjuunctiva. Large neck. ENT: Intubated. No nasal drainage Prior trach site ok. NECK: Trachea midline. Supple, nontender, no meningeal signs. CARDIOVASCULAR: HS audible and distant. RESPIRATORY: Clear to auscultation anteriorly. Distant breath sounds. GASTROINTESTINAL: Abdomen obese, not tender on palpation, has midline ventral hernia. Pannus noted. MUSCULOSKELETAL: Pedal edema noted. No cyanosis NEUROLOGICAL: Sedated Psych could not be assessed IV line sites with no e.o infection. Assessment & Plan Remarks IMPRESSION PSAE sepsis, with Septic shock with multiorgan dysfunction syndrome due to complicated UTI - has R pyonephrosis, S/P cysto and stent placement - still on pressors, WBC lower, temps better, creatinine still rising Pneumonia: 1. Aspiration pneumonia highly likely given multiple episodes of vomiting prior to admission in the retirement 2. Possible post influenza necrotizing pneumonia. 3. Health care pneumonia. Acute respiratory failure on vent Acute renal failure with anuria, due to sepsis and shock. Morbid obesity BMI 58.7 KG per meter squared Nausea vomiting prior to admission Elevated lactic acid secondary to sepsis Recommendations: Continue Zerbaxa IV (ASP: GNR bacteremia, Prior h/o PSAE in sputum high risk for MDRO, pending cultures) - follow BC and adjust if not MDR Continue Zyvox IV (MRSA pneumonia in a ARF patient with oliguria, additional exotoxin neutralization effect for Staph, MRSA and Strep pneumonia) Continue Flagyl IV (empiric for Cdiff also pt has aspiration pneumonia) Continue oral vanco empiric for Cdiff pending PCR. D/C Bianca Follow cultures Monitor progress Remains critically ill D/W Marely Aranda MD Nov 17, 2017 09:43
[2017-11-17] MEDS: DILTIAZEM INJ 125 MG in SODIUM CHLORIDE 0.9% INJ 100 ML IV PRN (10:26)
[2017-11-17 11:02] LABS: AMORPHOUS SEDIMENT, URINE MOD; BACTERIA, URINE FEW /hpf; BILIRUBIN, URINE NEG (NEG); BLOOD, URINE LARGE (NEG); GLUCOSE,URINE NEG (NEG); KETONE, URINE NEG (NEG); MUCUS URINE FEW /lpf (OCC); NITRITE,URINE NEG (NEG); URINE LEUKOCYTE ESTERASE LARGE (NEG); WHITE BLOOD CELL CLUMPS MANY
[2017-11-17 11:05] LABS: URINE COLOR BROWN (YELLW/STRAW)
[2017-11-17] MEDS ORDERED: LEVOFLOXACIN 750 MG PREMIX INJ 150 ML IV SCH (14:00)
[2017-11-17] MEDS: AMIODARONE INJ 450 MG in SODIUM CHLOR 0.9% (EXCEL) INJ 241 ML IV PRN (14:55)
[2017-11-17] MEDS: VASOPRESSIN INJ 40 UNITS in DEXTROSE 5% IN WATER 100ML INJ 98 ML IV SCH ×2 (18:04)
--- NOTE | 2017-11-17 18:47 | HHI.PR ---
Subjective Patient symptoms today Intubated and sedated. Minimal clinical improvement. Minimal UOP Objective Vital Signs Vital Signs Date Time Temp Pulse Resp B/P (MAP) Pulse Ox O2 Delivery O2 Flow Rate FiO2 11/17/17 18:05 101 92/61 2 18:05 98 93/62 2 18:05 94 92/64 2 18:04 87 89/62 11/17/17 18:00 90 11/17/17 17:30 93 15 88/64 (72) 95 110/51 (70) 11/17/17 17:15 91 15 91/63 (72) 95 104/51 (68) 11/17/17 17:00 95 15 86/60 (69) 95 100/50 (67) 11/17/17 16:45 98 15 87/63 (71) 95 104/67 (79) 11/17/17 16:30 101 15 82/58 (66) 95 91/55 (67) 11/17/17 16:15 104 15 94/67 (76) 95 110/53 (72) 11/17/17 16:00 99 11/17/17 16:00 98.7 99 15 92/64 (73) 95 105/53 (70) 11/17/17 16:00 50 11/17/17 15:48 97 50 11/17/17 15:45 86 15 91/62 (72) 94 107/52 (70) 11/17/17 15:30 96 15 91/63 (72) 94 108/53 (71) 11/17/17 15:15 87 15 92/62 (72) 94 112/55 (74) 11/17/17 15:04 92 15 92/66 (75) 93 117/55 (75) 11/17/17 15:00 91 15 95/65 (75) 95 18 14:55 98 95/65 11/17/17 14:45 87 15 94/63 (73) 95 98/53 (68) 11/17/17 14:30 85 15 90/59 (69) 94 95/55 (68) 11/17/17 14:15 85 15 88/59 (69) 95 106/53 (70) 11/17/17 14:00 86 11/17/17 14:00 86 15 88/59 (69) 95 104/48 (66) 218 13:45 88 15 87/58 (68) 95 102/46 (64) 18 13:30 92 15 87/60 (69) 95 95/49 (64) 218 13:15 86 15 89/59 (69) 95 95/53 (67) 18 13:00 88 15 87/59 (68) 95 91/54 (66) 18 12:30 92 15 92/61 (71) 94 87/51 (63) 18 12:15 91 15 90/60 (70) 95 105/55 (72) 11/17/17 12:00 97.8 91 15 89/61 (70) 95 103/53 (70) 11/17/17 12:00 91 11/17/17 12:00 50 11/17/17 11:45 91 15 87/60 (69) 94 111/52 (71) 11/17/17 11:30 91 15 87/60 (69) 94 105/53 (70) 18 11:16 90 15 87/60 (69) 94 114/58 (76) 11/17/17 11:02 98 15 92/62 (72) 96 129/106 (114) 11/17/17 11:00 94 15 92/63 (73) 93 11/17/17 10:50 96 50 11/17/17 10:45 94 15 88/60 (69) 95 102/50 (67) 11/17/17 10:30 91 15 86/60 (69) 96 95/51 (66) 11/17/17 10:26 90 89/61 218 10:15 91 15 87/60 (69) 95 92/53 (66) 18 10:01 92 15 87/61 (70) 97 103/58 (73) 11/17/17 10:00 93 11/17/17 10:00 93 15 87/61 (70) 92 2/18 08:30 90 18 93/61 (72) 95 103/67 (79) 18 08:15 91 15 87/58 (68) 95 94/50 (65) 11/17/17 08:00 89 2/3/18 08:00 55 2/3/18 08:00 97.6 89 15 84/56 (65) 94 90/53 (65) 2/18 07:45 88 15 90/61 (71) 95 86/54 (65) 23/18 07:30 92 15 85/57 (66) 95 97/52 (67) 218 07:15 90 15 91/62 (72) 95 103/49 (67) 218 07:00 90 15 81/57 (65) 95 107/46 (66) 218 06:29 94 109/57 2/18 06:00 98 2//18 05:45 91 88/54 2//18 04:45 93 88/51 2/18 04:00 98.0 103 15 82/66 (71) 94 135/99 (111) 218 04:00 60 2//18 04:00 103 2//18 04:00 103 135/99 218 03:50 97 60 2//18 02:30 93 94/50 2//18 02:00 99 2//18 02:00 99 111/51 2//18 01:30 99 109/53 2//18 01:00 99 99/51 2//18 00:30 101 121/50 2/3/18 00:00 102 2/3/18 00:00 60 2/3/18 00:00 97.9 102 15 69/61 (64) 96 108/55 (72) 218 00:00 102 108/55 2/2/18 23:58 98 110/51 2/2/18 23:50 97 60 2/2/18 23:00 101 115/50 2/2/18 22:27 96 116/53 2/2/18 22:01 104 112/59 2/2/18 22:00 101 2/2/18 20:00 98.3 107 15 72/61 (65) 95 122/51 (74) 22/18 20:00 60 2/2/18 20:00 107 2/2/18 19:39 96 60 2/2/18 19:00 99 107/51 2/2/18 19:00 99 107/51 2/2/18 19:00 99 107/51 11/16/17 19:00 99 107/51 11/16/17 19:00 99 107/51 Intake & Output 11/17/17 11/17/17 06:59 18:59 Intake Total 3637 ml 2055.6 ml Output Total 125 ml 100 ml Balance 3512 ml 1955.6 ml IV Total 3637 ml 1995.6 ml Tube Irrigant 60 ml Output Urine Total 125 ml 100 ml # Bowel Movements 0 Result Diagram: 11/17/17 0450 11/17/17 0450 Objective Remarks Intubated Dark somewhat cloudy urine with garcia Medications and IVs Current Medications Medications (Trade) Dose Ordered Sig/Mirta Route Start Time Stop Time Status Last Admin Propofol 100 ml @ 0 mls/hr TITRATE PRN IV 11/15/17 11:45 (Brethine Inj) 1 mg UNSCH PRN SQ 11/15/17 12:15 Fentanyl Citrate 250 ml @ 5 mls/hr TITRATE PRN IV 11/15/17 12:30 11/17/17 06:30 Diltiazem HCl 125 mg/Sodium Chloride 125 ml @ 5 mls/hr TITRATE PRN IV 11/15/17 12:30 11/17/17 10:26 Dopamine HCl/ Dextrose 500 ml @ 0 mls/hr TITRATE PRN IV 11/15/17 12:45 (Brethine Inj) 1 mg UNSCH PRN SQ 11/15/17 12:45 (Peridex 0.12% Liq) 15 ml BID@08,20 MT 11/15/17 20:00 11/17/17 08:20 (D50w (Vial) Inj) 25 ml UNSCH PRN IV PUSH 11/15/17 14:00 (NovoLIN R SUPPLEMENTAL SCALE) 1 Q6HR SQ 11/15/17 18:00 11/16/17 05:42 (Duoneb Neb) 1 ampule Q6HR NEB INH 11/15/17 16:00 11/17/17 15:48 (Duoneb Neb) 1 ampule Q2HR NEB PRN INH 11/15/17 14:00 11/15/17 21:05 Sodium Chloride 1,000 ml @ 125 mls/hr Q8H IV 11/15/17 15:00 11/17/17 17:05 (Tylenol) 650 mg Q6H PRN PO 11/15/17 14:00 (Pepcid Inj) 10 mg Q12HR IV PUSH 11/15/17 21:00 11/17/17 08:20 (Zofran Inj) 4 mg Q6H PRN IV PUSH 11/15/17 14:00 (Heparin Inj) 5,000 units Q8H SQ 11/15/17 15:00 11/17/17 15:28 Miscellaneous Information 1 Q361D XX 11/15/17 14:00 11/15/17 19:00 (Chlorhexidine 2% Cloth) 3 pack Taper DAILY@04 TOP 11/16/17 04:00 11/12/18 03:59 11/17/17 04:00 (Chlorhexidine 2% Cloth) 3 pack UNSCH PRN TOP 11/15/17 14:00 (Zelda-Colace) 1 tab BID PO 11/15/17 21:00 11/17/17 08:10 (Milk Of Magnesia Liq) 30 ml Q12H PRN PO 11/15/17 14:00 (Senokot) 17.2 mg Q12H PRN PO 11/15/17 14:00 (Dulcolax Supp) 10 mg DAILY PRN RECTAL 11/15/17 14:00 (Lactulose Liq) 30 ml DAILY PRN PO 11/15/17 14:00 Vasopressin 40 units/Dextrose 100 ml @ 6 mls/hr [id number] IV 11/15/17 14:12 11/17/17 18:04 (SoluCORTEF INJ) 50 mg Q6HR IV PUSH 11/15/17 16:15 11/17/17 17:04 Ceftolozane/ Tazobactam 375 mg/ Sodium Chloride 100 ml @ 100 mls/hr Q8H IV 11/15/17 17:30 11/17/17 17:04 Amiodarone HCl 450 mg/Sodium Chloride 250 ml @ 33.33 mls/ hr Q7H31M PRN IV 11/15/17 20:15 11/17/17 14:55 Norepinephrine Bitartrate 16 mg/ Dextrose 250 ml @ 1.87 mls/hr TITRATE PRN IV 11/15/17 22:45 11/17/17 06:29 Epinephrine HCl 8 mg/Dextrose 250 ml @ 5.62 mls/hr TITRATE PRN IV 11/15/17 22:45 11/15/17 23:15 Metronidazole 100 ml @ 100 mls/hr Q8H IV 11/16/17 08:00 11/17/17 15:28 (VANCOMYCIN for oral use only) 500 mg QID PO 11/16/17 06:45 11/17/17 17:05 Linezolid 300 ml @ 300 mls/hr Q12H IV 11/16/17 07:00 11/17/17 18:04 Cefazolin Sodium 3000 mg/Sodium Chloride 130 ml @ 200 mls/hr MANAGER OUTPATIENT IV 11/16/17 15:45 11/19/17 15:44 (Peridex 0.12% Liq) 15 ml BID@08,20 MT 11/16/17 20:00 Fentanyl Citrate 250 ml @ 5 mls/hr TITRATE PRN IV 11/16/17 16:00 Assessment and Plan Problem List: (1) Hydronephrosis ICD Code: N13.30 - Unspecified hydronephrosis (2) Pneumonia ICD Code: J18.9 - Pneumonia, unspecified organism Status: Acute (3) CHF (congestive heart failure) ICD Code: I50.9 - Heart failure, unspecified Status: Acute Assessment and Plan -Continue to monitor -Will obtain bedside KUB with focus on the right to evaluate stent placement Mirza Ocampo MD Nov 17, 2017 18:47
--- NOTE | 2017-11-17 18:55 | MP ---
cc: LEANDER SUAZO MD DATE OF SURGERY: 11/16/2017. PREOPERATIVE DIAGNOSIS: Septic stone / obstruction of the right collecting system. POSTOPERATIVE DIAGNOSIS: Septic stone / obstruction of the right collecting system. OPERATIVE PROCEDURE PERFORMED: 1. Cystoscopy. 2. Right ureteral stent placement 6 x 28 JJ. SURGEON: Leander Suazo MD. PERTINENT FINDINGS: 1. Significant medial deviation of the right ureter with hydronephrosis. 2. Successful placement of a stent 6 x 28 JJ, although difficult due to anatomy ; however, the fluoroscopic machine in the operating room was unable to be positioned to visualize the proximal curl of the stent. Therefore, it is unclear if the stent is in the proper position proximally. However, it is important to note once the stent was placed, a significant amount of purulent fluid was removed from the right collecting system. 3. Patulous urethra INDICATIONS FOR THE PROCEDURE: Brandi Boone is a 67-year-old female, morbidly obese, currently in sepsis, Intubated and requiring multiple pressors, found to have right-sided hydronephrosis concerning a right distal ureteral obstruction for which she presents now with stent placement. The patient's clinical status is tenuous. Discussion was had regarding a nephrostomy placement versus stent with the Database Administration Project Manager and Interventional Radiologist; however, it was felt that she may be able to tolerate a stent procedure more adequately than a nephrostomy tube. Therefore, she presents now for a right ureteral stent placement. DESCRIPTION OF THE PROCEDURE IN DETAIL: This was deemed and emergent life saving procedure. After proper consent was obtained, the patient was brought to the operating room and remained supine on the operating room table. This was deemed an emergent procedure. The patient was already intubated and therefore mild paralytic was administered. The cystoscope was inserted through the urethra and into the bladder after a proper time-out was completed. The patient's bladder had significant edema and erythema consistent with infection. The right ureteral orifice was identified and cannulated using a guidewire and advanced up into the right renal pelvis. However, it was noted that there was significant medial deviation and tortuosity of this right collecting system. Also, the fluoroscopic machine was unable to adequately visualize the proximal portion of the stent; however the wire was able to be visualized in the right renal pelvis proximally. At this point, a 6 x 28 double-J ureteral stent was placed. This was the longest stent available. This was passed all the way to the hub with a coil remaining in the bladder. Unfortunately due to the inability to properly visualize the kidney due to the limitations of the fluoroscopic machine, we were unable to visualize the proximal portion of the stent; however, there was significant purulent material removed once the stent was placed. At this point, the scope was removed and a 20-Qatari Solitario catheter was placed. The patient was then returned to her intensive care unit bed in guarded condition. DISPOSITION: The patient is to be returned to her intensive care unit bed. She will require imaging to confirm the placement of the stent however given her clinical status and a trip to the CT scanner or x-ray machine may be difficult however we will attempt to get this in the next day or so. Leander Suazo M.D. CHRISTIAN/ADÁN /2:03 PM /6:36 PM FABIANA
--- NOTE | 2017-11-17 19:37 | RADRPT ---
EXAM DATE/TIME: 11/17/2017 19:04 [facility] COMPARISON: CT ABDOMEN & PELVIS W/O CONTRAST, November 16, 2017, 8:54. INDICATIONS : Evaluate right kidney for stent placement. MEDICAL HISTORY : Hypertension. Diabetes mellitus type II. SURGICAL HISTORY : None. ENCOUNTER: Initial ACUITY: 3 days PAIN SCORE: Non-responsive. LOCATION: Right Abdomen FINDINGS: The bowel gas is nonspecific without any signs of obstruction or free air. double J stent is present on the right and distal tip overlaps the bladder and proximal tip overlaps L3 vertebrae and the patie nt is rotated. Probably either in the right renal pelvis the right proximal ureter. CONCLUSION: The proximal tip of the double-J stent is either in the expected region of the right renal pelvis or proximal ureter. Allen Mensah MD on November 17, 2017 at 19:33 Board Certified Radiologist. This report was verified electronically.
[2017-11-17] MEDS: RESP: ALBUTEROL 2.5 MG/IPRATROPIUM 0.5 MG NEB (PRN) INH (23:39)
[2017-11-18] VITALS (61 sets, daily range): BP systolic 74–132; BP diastolic 46–97; PULSE 74–107; RESP 14–16; TEMP 97.7–98.9; O2SAT 94–98
[2017-11-18] MEDS: fentaNYL DRIP 250 ML IV PRN (00:19)
[2017-11-18] MEDS: CHLORHEXIDINE GLUCONATE 2 % 1 PACK (2 CLOTHS) TOP SCH (00:56)
[2017-11-18] MEDS: CEFTOLOZANE-TAZOBACTAM INJ 375 MG in SODIUM CHLORIDE 0.9% INJ 100 ML IV SCH ×3 (00:56→17:23)
[2017-11-18] MEDS: NOREPINEPHRINE INJ 16 MG in DEXTROSE 5% IN WATER INJ 234 ML IV PRN ×2 (03:07)
[2017-11-18] MEDS: RESP: ALBUTEROL 2.5 MG/IPRATROPIUM 0.5 MG NEB (SCH) INH ×4 (03:28→20:06)
[2017-11-18 03:44] LABS: HEMATOCRIT 31.6 % (35.0-46.0); HEMOGLOBIN 10.1 GM/DL (11.6-15.3); MEAN CELL VOLUME 86.9 FL (80.0-100.0); MEAN CORPUSCULAR HEMOGLOBIN 27.8 PG (27.0-34.0); MEAN PLATELET VOLUME 8.2 FL (7.0-11.0); PLATELET COUNT 220 TH/MM3 (150-450); RED BLOOD COUNT 3.64 MIL/MM3 (4.00-5.30); RED CELL DISTRIBUTION WIDTH 21.6 % (11.6-17.2); WHITE BLOOD COUNT 34.1 TH/MM3 (4.0-11.0)
[2017-11-18 04:01] LABS: BICARBONATE 23.4 MEQ/L (21.0-32.0); CALCIUM 6.5 MG/DL (8.5-10.1); CREATININE 2.86 MG/DL (0.50-1.00)
[2017-11-18 04:25] LABS: CALCIUM-PROTEIN CORRECTED 7.5 MG/DL (8.5-10.1)
[2017-11-18] MEDS: AMIODARONE INJ 450 MG in SODIUM CHLOR 0.9% (EXCEL) INJ 241 ML IV PRN (05:03)
[2017-11-18] MEDS: INSULIN NovoLIN REGULAR SUPPLEMENTAL SCALE SQ SCH ×3 (05:12→18:00)
[2017-11-18] MEDS: LINEZOLID 600 MG PREMIX 300 ML IV SCH ×2 (05:14→18:04)
[2017-11-18] MEDS: HYDROCORTISONE SOD SUCCINATE 100 MG VIAL IV PUSH SCH ×3 (05:14→17:24)
[2017-11-18] MEDS: HEPARIN SODIUM - SQ 10,000 UNITS/ML VIAL SQ SCH ×3 (05:15→21:39)
[2017-11-18] MEDS: SODIUM CHLOR 0.9% 1000 ML INJ 1,000 ML IV SCH ×2 (06:49→18:04)
[2017-11-18] MEDS: CHLORHEXIDINE 0.12% (ORAL KIT) 15 ML CUP MT SCH ×4 (08:00→20:00)
--- NOTE | 2017-11-18 08:24 | HHI.IDPN ---
Subjective Subjective Remarks ID COVERAGE is a 67 y/o CF morbidly obese with BMI 58.7 kg/m2 who has had multiple prior admissions for MRSA pneumonia and respiratory failure presents by EMS for recurrent respiratory failure. She resides in a SNF. She was found unresponsive this morning. She was intubated in the field. She has a wbc 52k, lactate of 6.9, Cr 2.87 (baseline 0.5, prior admission discharge was 1.8). u/a concerning for probable UTI as well. In the emergency department patient received 3 IV fluid boluses and continued to be hypotensive needing vasopressor support. Upon review of records it appears she was recently treated in Oct 15 for UTI at [facility] with macrobieaston. LOBOR from [facility] with no antibiotics but was on lactobacillus. Spoke to CHILO Moura at [facility] patient has 2-3 episodes of vomiting yesterday at [facility] and received antiemetics. T:98, BP: 110/62, 96% RA, BS: 108. Patient was not on any antibiotics. No diarrhea. Lasix increased due to pedal edema. No cultures drawn. No flu test done per records. She has a prior h/o admission at [facility] admitted in late 2016 when she was in the ICU intubated needing a trach eventually. During that admission patient was treated for MRSA pneumonia but also she has a history of pseudomonas infections in the past. Pseudomonas in the past with pansensitive cultures but given her multiple hospitalization and multiple courses of antibiotics she stands at this for multidrug-resistant Pseudomonas. At the time of my evaluation patient is in the IMC appears very critically ill intubated. Patient is on vasopressin 0.04, we will fed 40 mics, epinephrine 10/9, amiodarone drip at 1 g. Patient has 0 urine output at the present time. She has small white secretions. She has no diarrhea. Abdomen appears benign. No response to verbal or other stimuli for me but RN reports when daughter was here earlier she opened eyes, moved limbs and squeezed RNs fingers. Currently sedation is off but patient in ARF with no urine output. Infectious disease consultation was requested for evaluation and management of septic shock, pneumonia. Notes reviewed D/W RN On pressors - levophed and vasopressin, levophed dose lower Sedation being decreased, more awake FiO2 at 50% Secretions not much, pale white. Solitario in place, color better UO still low, though creatinine improving S/P urologic procedure 11/16 AXR shows stent either in renal pelvis or proximal ureter Temps better WBC continue to improve Atrial fib, controlled rate, on cordarone One BC with PSAE - no susceptibility testing available yet Sputum C/S MRSA Antibiotics Current Medications Zerbaxa IV Oral Vancomycin Zyvox Flagyl Medications (Trade) Dose Ordered Sig/Mirta Route Start Time Stop Time Status Last Admin Propofol 100 ml @ 0 mls/hr TITRATE PRN IV 11/15/17 11:45 (Brethine Inj) 1 mg UNSCH PRN SQ 11/15/17 12:15 Fentanyl Citrate 250 ml @ 5 mls/hr TITRATE PRN IV 11/15/17 12:30 11/17/17 06:30 Diltiazem HCl 125 mg/Sodium Chloride 125 ml @ 5 mls/hr TITRATE PRN IV 11/15/17 12:30 11/16/17 22:27 Dopamine HCl/ Dextrose 500 ml @ 0 mls/hr TITRATE PRN IV 11/15/17 12:45 (Brethine Inj) 1 mg UNSCH PRN SQ 11/15/17 12:45 (Peridex 0.12% Liq) 15 ml BID@08,20 MT 11/15/17 20:00 11/17/17 08:20 (D50w (Vial) Inj) 25 ml UNSCH PRN IV PUSH 11/15/17 14:00 (NovoLIN R SUPPLEMENTAL SCALE) 1 Q6HR SQ 11/15/17 18:00 11/16/17 05:42 (Duoneb Neb) 1 ampule Q6HR NEB INH 11/15/17 16:00 11/17/17 03:48 (Duoneb Neb) 1 ampule Q2HR NEB PRN INH 11/15/17 14:00 11/15/17 21:05 Sodium Chloride 1,000 ml @ 125 mls/hr Q8H IV 11/15/17 15:00 11/17/17 08:10 (Tylenol) 650 mg Q6H PRN PO 11/15/17 14:00 (Pepcid Inj) 10 mg Q12HR IV PUSH 11/15/17 21:00 11/17/17 08:20 (Zofran Inj) 4 mg Q6H PRN IV PUSH 11/15/17 14:00 (Heparin Inj) 5,000 units Q8H SQ 11/15/17 15:00 11/17/17 05:39 Miscellaneous Information 1 Q361D XX 11/15/17 14:00 11/15/17 19:00 (Chlorhexidine 2% Cloth) 3 pack Taper DAILY@04 TOP 11/16/17 04:00 11/12/18 03:59 11/17/17 04:00 (Chlorhexidine 2% Cloth) 3 pack UNSCH PRN TOP 11/15/17 14:00 (Zelda-Colace) 1 tab BID PO 11/15/17 21:00 11/17/17 08:10 (Milk Of Magnesia Liq) 30 ml Q12H PRN PO 11/15/17 14:00 (Senokot) 17.2 mg Q12H PRN PO 11/15/17 14:00 (Dulcolax Supp) 10 mg DAILY PRN RECTAL 11/15/17 14:00 (Lactulose Liq) 30 ml DAILY PRN PO 11/15/17 14:00 Vasopressin 40 units/Dextrose 100 ml @ 6 mls/hr [id number] IV 11/15/17 14:12 11/16/17 23:58 (SoluCORTEF INJ) 50 mg Q6HR IV PUSH 11/15/17 16:15 11/17/17 05:37 Ceftolozane/ Tazobactam 375 mg/ Sodium Chloride 100 ml @ 100 mls/hr Q8H IV 11/15/17 17:30 11/17/17 01:16 Amiodarone HCl 450 mg/Sodium Chloride 250 ml @ 33.33 mls/ hr [id number] PRN IV 11/15/17 20:15 11/16/17 22:01 Norepinephrine Bitartrate 16 mg/ Dextrose 250 ml @ 1.87 mls/hr TITRATE PRN IV 11/15/17 22:45 11/17/17 06:29 Epinephrine HCl 8 mg/Dextrose 250 ml @ 5.62 mls/hr TITRATE PRN IV 11/15/17 22:45 11/15/17 23:15 Metronidazole 100 ml @ 100 mls/hr Q8H IV 11/16/17 08:00 11/17/17 08:10 (VANCOMYCIN for oral use only) 500 mg QID PO 11/16/17 06:45 11/17/17 08:10 Linezolid 300 ml @ 300 mls/hr Q12H IV 11/16/17 07:00 11/17/17 05:38 Azithromycin 500 mg/Sodium Chloride 250 ml @ 250 mls/hr Q24H IV 11/16/17 08:00 11/17/17 08:10 Cefazolin Sodium 3000 mg/Sodium Chloride 130 ml @ 200 mls/hr DIVISION ORDER ANALYST IV 11/16/17 15:45 11/19/17 15:44 (Peridex 0.12% Liq) 15 ml BID@08,20 MT 11/16/17 20:00 Fentanyl Citrate 250 ml @ 5 mls/hr TITRATE PRN IV 11/16/17 16:00 Lines RIJ TLC Past Medical History Past Medical History Chronic asthma home oxygen Atrial fibrillation Hyperlipidemia Hypertension excellent diabetes mellitus GERD Morbid obesity BMI 55 Past Surgical History Appendectomy Hernia surgery Tracheostomy placement Allergies: Coded Allergies: penicillin G (Unverified Allergy, Severe, 05/29/17) Objective . Vital Signs Date Time Temp Pulse Resp B/P (MAP) Pulse Ox O2 Delivery O2 Flow Rate FiO2 11/18/17 06:45 79 104/49 11/18/17 06:45 79 104/49 11/18/17 06:45 79 104/49 11/18/17 06:00 92 11/18/17 05:03 85 114/57 11/18/17 05:00 80 114/57 11/18/17 05:00 80 114/57 11/18/17 05:00 80 114/57 11/18/17 05:00 80 114/57 11/18/17 04:15 85 15 79/79 (79) 96 118/57 (77) 11/18/17 04:00 84 11/18/17 04:00 50 11/18/17 04:00 98.2 84 15 76/76 (76) 96 131/58 (82) 11/18/17 03:45 90 15 74/73 (73) 96 131/60 (83) 11/18/17 03:30 95 15 102/97 (99) 95 11/18/17 03:24 97 50 11/18/17 03:15 86 15 83/79 (80) 97 11/18/17 03:07 81 103/64 2/4/18 03:00 89 15 104/63 (77) 97 2//18 02:45 91 15 102/63 (76) 97 2//18 02:30 92 15 103/64 (77) 97 2//18 02:15 94 15 102/63 (76) 97 2/18 02:00 95 15 95/62 (73) 96 112/51 (71) 18 02:00 90 2/18 02:00 87 104/61 2//18 02:00 87 104/61 2//18 02:00 87 104/61 2//18 02:00 87 104/61 2//18 01:45 107 15 99/65 (76) 95 127/58 (81) 18 01:45 102 99/64 218 01:45 102 99/64 18 01:45 102 99/64 /18 01:45 102 99/64 18 01:30 99 103/65 (78) 18 01:15 103 16 109/72 (84) 96 2//18 01:00 86 15 107/63 (78) 97 2//18 00:45 86 15 100/61 (74) 97 2//18 00:30 82 15 91/58 (69) 97 2//18 00:15 90 15 98/60 (73) 97 2//18 00:00 89 2/18 00:00 98.4 85 15 99/62 (74) 94 98/61 (73) 218 00:00 50 2//18 23:45 93 15 103/63 (76) 96 2//18 23:33 97 50 2//18 23:30 81 15 102/63 (76) 97 2//18 23:15 82 15 98/60 (73) 98 2//18 23:00 83 15 96/60 (72) 97 2/3/18 22:45 81 15 95/59 (71) 97 2/3/18 22:30 81 97/62 2/3/18 22:30 85 15 98/60 (73) 97 2/3/18 22:15 90 15 98/60 (73) 97 2/3/18 22:01 85 15 96/59 (71) 97 110/65 (80) 2//18 22:00 87 2/3/18 21:45 88 15 99/60 (73) 97 2/3/18 21:45 89 100/88 2/3/18 21:30 93 15 99/60 (73) 97 2/3/18 21:15 96 15 100/61 (74) 96 2/3/18 21:00 95 15 99/61 (74) 96 2/3/18 21:00 89 101/58 2//18 20:30 101 15 101/62 (75) 96 2/3/18 20:15 118 17 106/67 (80) 96 2//18 20:00 96 2//18 20:00 50 2//18 20:00 98.7 108 15 103/65 (78) 94 127/56 (79) 2//18 19:45 107 15 98/65 (76) 96 2//18 19:35 100 50 2//18 19:30 108 15 98/70 (79) 93 124/66 (85) 2//18 19:15 104 15 153/146 (148) 94 2//18 19:00 86 15 93/61 (72) 96 121/54 (76) 2/18 18:05 101 92/61 2//18 18:05 98 93/62 2//18 18:05 94 92/64 2//18 18:04 87 89/62 2//18 18:00 90 2//18 17:30 93 15 88/64 (72) 95 110/51 (70) 2//18 17:15 91 15 91/63 (72) 95 104/51 (68) 2//18 17:00 95 15 86/60 (69) 95 100/50 (67) 2//18 16:45 98 15 87/63 (71) 95 104/67 (79) 2//18 16:30 101 15 82/58 (66) 95 91/55 (67) 2/18 16:15 104 15 94/67 (76) 95 110/53 (72) 2/18 16:00 99 2/3/18 16:00 98.7 99 15 92/64 (73) 95 105/53 (70) 11/17/17 16:00 50 11/17/17 15:48 97 50 2 15:45 86 15 91/62 (72) 94 107/52 (70) 11/17/17 15:30 96 15 91/63 (72) 94 108/53 (71) 11/17/17 15:15 87 15 92/62 (72) 94 112/55 (74) 11/17/17 15:04 92 15 92/66 (75) 93 117/55 (75) 11/17/17 15:00 91 15 95/65 (75) 95 11/17/17 14:55 98 95/65 11/17/17 14:45 87 15 94/63 (73) 95 98/53 (68) 11/17/17 14:30 85 15 90/59 (69) 94 95/55 (68) 11/17/17 14:15 85 15 88/59 (69) 95 106/53 (70) 11/17/17 14:00 86 11/17/17 14:00 86 15 88/59 (69) 95 104/48 (66) 11/17/17 13:45 88 15 87/58 (68) 95 102/46 (64) 11/17/17 13:30 92 15 87/60 (69) 95 95/49 (64) 11/17/17 13:15 86 15 89/59 (69) 95 95/53 (67) 11/17/17 13:00 88 15 87/59 (68) 95 91/54 (66) 11/17/17 12:30 92 15 92/61 (71) 94 87/51 (63) 11/17/17 12:15 91 15 90/60 (70) 95 105/55 (72) 11/17/17 12:00 97.8 91 15 89/61 (70) 95 103/53 (70) 11/17/17 12:00 91 18 12:00 50 11/17/17 11:45 91 15 87/60 (69) 94 111/52 (71) 11/17/17 11:30 91 15 87/60 (69) 94 105/53 (70) 11/17/17 11:16 90 15 87/60 (69) 94 114/58 (76) 11/17/17 11:02 98 15 92/62 (72) 96 129/106 (114) 11/17/17 11:00 94 15 92/63 (73) 93 11/17/17 10:50 96 50 11/17/17 10:45 94 15 88/60 (69) 95 102/50 (67) 11/17/17 10:30 91 15 86/60 (69) 96 95/51 (66) 11/17/17 10:26 90 89/61 11/17/17 10:15 91 15 87/60 (69) 95 92/53 (66) 11/17/17 10:01 92 15 87/61 (70) 97 103/58 (73) 11/17/17 10:00 93 11/17/17 10:00 93 15 87/61 (70) 92 11/17/17 08:30 90 18 93/61 (72) 95 103/67 (79) 11/17/17 08:15 91 15 87/58 (68) 95 94/50 (65) . Laboratory Tests Test 11/17/17 04:50 11/18/17 02:50 White Blood Count 52.1 TH/MM3 34.1 TH/MM3 Red Blood Count 3.58 MIL/MM3 3.64 MIL/MM3 Hemoglobin 10.0 GM/DL 10.1 GM/DL Hematocrit 31.2 % 31.6 % Mean Corpuscular Volume 87.1 FL 86.9 FL Mean Corpuscular Hemoglobin 28.0 PG 27.8 PG Mean Corpuscular Hemoglobin Concent 32.2 % 32.0 % Red Cell Distribution Width 21.3 % 21.6 % Platelet Count 231 TH/MM3 220 TH/MM3 Mean Platelet Volume 8.2 FL 8.2 FL Laboratory Tests Test 11/17/17 04:50 11/18/17 02:50 Blood Urea Nitrogen 31 MG/DL 32 MG/DL Creatinine 3.01 MG/DL 2.86 MG/DL Random Glucose 174 MG/DL 196 MG/DL Total Protein 4.9 GM/DL 5.0 GM/DL Calcium Level 7.1 MG/DL 6.5 MG/DL Sodium Level 138 MEQ/L 138 MEQ/L Potassium Level 4.2 MEQ/L 4.2 MEQ/L Chloride Level 102 MEQ/L 103 MEQ/L Carbon Dioxide Level 27.1 MEQ/L 23.4 MEQ/L Anion Gap 9 MEQ/L 12 MEQ/L Estimat Glomerular Filtration Rate 15 ML/MIN 16 ML/MIN Protein Corrected Calcium 8.3 MG/DL 7.5 MG/DL Microbiology Date/Time Source Procedure Growth Status 11/17/17 15:03 Blood Peripheral Aerobic Blood Culture Pending Received 11/17/17 15:03 Blood Peripheral Anaerobic Blood Culture Pending Received 11/17/17 11:04 Blood Peripheral Aerobic Blood Culture Pending Received 11/17/17 11:04 Blood Peripheral Anaerobic Blood Culture Pending Received 11/15/17 11:50 Blood Peripheral Aerobic Blood Culture - Preliminary Pseudomonas Aeruginosa Resulted 11/15/17 11:50 Blood Peripheral Anaerobic Blood Culture - Preliminary NO GROWTH IN 2 DAYS Resulted 11/15/17 11:45 Blood Peripheral Aerobic Blood Culture - Preliminary NO GROWTH IN 2 DAYS Resulted 11/15/17 11:45 Blood Peripheral Anaerobic Blood Culture - Preliminary NO GROWTH IN 2 DAYS Resulted 11/15/17 17:08 Nasal Washing Influenza Types A,B Antigen (NATALIE) - Final NEGATIVE FOR FLU A AND B ANTIGEN.... Complete 11/15/17 16:20 Sputum Endotracheal Gram Stain - Final Resulted 11/15/17 16:20 Sputum Culture - Preliminary S. Aureus Mrsa Resulted 11/17/17 09:35 Urine Catheterized Urine Urine Culture Pending Received 11/15/17 11:39 Urine Catheterized Urine Legionella Antigen - Final PRESUMPTIVE NEGATIVE FOR LEGIONELLA P... Complete 11/15/17 11:39 Urine Catheterized Urine Streptococcus pneumoniae Antigen (M - Final PRESUMPTIVE NEGATIVE FOR STREPTOCOCCU... Complete 11/15/17 11:39 Urine Clean Catch Urine Culture - Final Pseudomonas Aeruginosa Complete Imaging Abdomen X-Ray 11/17/17 0000 Signed Impressions: Service Date/Time: Friday, November 17, 2017 19:04 - CONCLUSION: The proximal tip of the double-J stent is either in the expected region of the right renal pelvis or proximal ureter. Allen Mensah MD Chest X-Ray 11/16/17 0000 Signed Impressions: Service Date/Time: Thursday, November 16, 2017 12:43 - CONCLUSION: 1. Right IJ central line tip near the atriocaval junction. 2. No gross pneumothorax or significant interval change. Riccardo Stack MD Abdomen/Pelvis CT 11/16/17 0000 Signed Impressions: Service Date/Time: Thursday, November 16, 2017 08:54 - CONCLUSION: 1. Moderate hydronephrosis right kidney and hydroureter. There is dense material layering within the right renal pelvis and distal ureter of uncertain etiology but could be hemorrhage. Urinalysis and clinical correlation. 2. Hyperdense left renal lesion likely complex cyst. 3. Scattered diverticulosis of the colon. 4. Left basilar consolidation. 5. Left-sided ventral wall hernia. El Nuñez MD Chest CT 11/15/17 1255 Signed Impressions: Service Date/Time: November 14:24 - CONCLUSION: 1. New consolidative infiltrate in the posterior right upper lobe most characteristic of pneumonia. 2. Consolidation also noted in the left lower lobe which is increased from the prior CT. 3. New abnormal streaky density in the posterior upper abdomen located posterior to the liver. This is nonspecific but could represent infection or inflammatory change. 4. Cardiomegaly. Chintan Marshall MD Head CT 11/15/17 1134 Signed Impressions: Service Date/Time: November 14:13 - CONCLUSION: 1. No acute hemorrhage or mass effect. 2. Atrophy and chronic small vessel ischemic change 3. Air-fluid levels in the maxillary sinuses most characteristic of acute sinusitis. Chintan Marshall MD Physical Exam GENERAL: Morbidly obese patient, intubated. NAD. Opens eyes when stimulated. Not following SKIN: Ecchymoses noted. Left thigh large 15x10 cm approx area of erythema, abrasion of skin noted, looks better Skin folds in groin and breast with erythema and fungal overgrowth, improving HEAD: Atraumatic. Normocephalic. No temporal or scalp tenderness. EYES: Pupils equal round and reactive. No icterus, pale conjunctiva. Large neck. ENT: Intubated. No nasal drainage Prior trach site ok. NECK: Trachea midline. Supple, nontender, no meningeal signs. CARDIOVASCULAR: HS audible and distant. RESPIRATORY: Clear to auscultation anteriorly. Distant breath sounds. GASTROINTESTINAL: Abdomen obese, grimacing during palpation, no guarding, has midline ventral hernia. Pannus noted. MUSCULOSKELETAL: Pedal edema noted. No cyanosis NEUROLOGICAL: Open eyes when stimulated, not following Psych could not be assessed IV line sites with no e.o infection. : Solitario in place color looks better Assessment & Plan Remarks IMPRESSION PSAE sepsis, with Septic shock with multiorgan dysfunction syndrome due to complicated UTI - has R pyonephrosis, S/P cysto and stent placement - still on pressors but decreasing dose, WBC lower, temps better, creatinine decreasing Pneumonia, C/S MRSA 1. Aspiration pneumonia highly likely given multiple episodes of vomiting prior to admission in the senior living 2. Possible post influenza necrotizing pneumonia. 3. Health care pneumonia. Acute respiratory failure on vent Acute renal failure with anuria, due to sepsis and shock. Morbid obesity BMI 58.7 KG per meter squared Nausea vomiting prior to admission Elevated lactic acid secondary to sepsis Recommendations: Continue Zerbaxa IV (ASP: GNR bacteremia, Prior h/o PSAE in sputum high risk for MDRO, pending cultures) - follow BC and adjust if not MDR Continue Zyvox IV (MRSA pneumonia in a ARF patient with oliguria, additional exotoxin neutralization effect for Staph, MRSA and Strep pneumonia) Stop Flagyl IV Stop oral vanco, no BM Follow cultures Monitor progress Remains critically ill Hopefully UO starts to increase D/W Marely Aranda MD Nov 18, 2017 08:24
[2017-11-18] MEDS: DOCUSATE SODIUM 50 MG/SENNA 8.6 MG TAB PO SCH ×2 (08:26→21:39)
[2017-11-18] MEDS: FAMOTIDINE 20 MG/2 ML VIAL IV PUSH SCH ×2 (08:27→21:39)
[2017-11-18] MEDS: VASOPRESSIN INJ 40 UNITS in DEXTROSE 5% IN WATER 100ML INJ 98 ML IV SCH ×2 (08:41)
--- NOTE | 2017-11-18 10:24 | HHI.CCPN ---
Subjective Remarks/Hospital Course Hospital Course: 67yF with super morbid obesity who has had multiple prior admissions for MRSA pneumonia and respiratory failure presents by EMS for recurrent respiratory failure. She resides in a SNF. She was found unresponsive this morning. She was intubated in the field. In the emergency department she was hypotensive despite ivf resuscitation and required norepinephrine for vasopressor support. she has a wbc 52k, lactate of 6.9, Cr 2.87 (baseline 0.5, prior admission discharge was 1.8). u/a concerning for probable UTI as well. Subjective: 2: remained unstable throughout the night overnight. on 3 vasopressors. this morning, no better, wbc higher. decision by Dr. Cartagena and myself to emergently CT abd/pelvis to rule out source control, despite ongoing hemodynamic instability. CT abd/pelvis demonstrated right hydronephrosis with likely obstructive pyelonephritis. discussed with urology and interventional radiology : likely to decompensate during procedure. unable to physically prone patient. difficult technically with high risk to do supine lateral CT guided perc nephrostomy tube. urology to take to the OR for cysto with stenting. Prior to leaving for OR, patient's central line was pulled accidentally. patient had no other iv access. I/O needles unavailable. emergently replaced central line in right IJ (see separate procedure note for details). due to ongoing shock, patient's blood pressure in 40s systolic during this time. restarted vasopressors after central access regained. went to OR. cultures growing pseudomonas. 2: minimal improvements. taken to OR yesterday for cysto. minimal uop overnight. off epinephrine but remains on 2 vasopressors, in shock. wbc downtrending but > 50k. 11/18: vasopressor requirements are improving slightly. remains on 2 vasopressors and in shock. blood and urine growing pseudomonas, sputum growing MRSA (history of MRSA pneumonia). wbc downtrending, but remains very high. uop marginal. Objective Vital Signs Date Time Temp Pulse Resp B/P (MAP) Pulse Ox O2 Delivery O2 Flow Rate FiO2 11/18/17 08:41 87 121/77 11/18/17 08:23 97 50 11/18/17 04:15 15 11/18/17 04:00 98.2 11/15/17 15:42 Ventilator Intake and Output 11/18/17 11/18/17 11/19/17 08:00 16:00 00:00 Intake Total 2771 ml Output Total 100 ml Balance 2671 ml Result Diagram: 11/18/17 0250 11/18/17 0250 Other Results Microbiology Date/Time Source Procedure Growth Status 11/15/17 17:08 Nasal Washing Influenza Types A,B Antigen (NATALIE) - Final NEGATIVE FOR FLU A AND B ANTIGEN.... Complete 11/15/17 11:39 Urine Catheterized Urine Legionella Antigen - Final PRESUMPTIVE NEGATIVE FOR LEGIONELLA P... Complete 11/15/17 11:39 Urine Catheterized Urine Streptococcus pneumoniae Antigen (M - Final PRESUMPTIVE NEGATIVE FOR STREPTOCOCCU... Complete 11/15/17 11:39 Urine Clean Catch Urine Culture - Final Pseudomonas Aeruginosa Complete Imaging Last Impressions Chest X-Ray 11/15/17 1134 Signed Impressions: Service Date/Time: November 12:27 - CONCLUSION: ET tube 1.3 cm above the makeda in a somewhat low position. This could be pulled back 2-3 cm to be in a better position. Perry Frye MD Objective Remarks gen: super morbidly obese female, lying in bed, intubated, sedated heent: perrl. eomi. mucous membranes moist neck: unable to assess jvd due to large neck circumference. trachea midline chest: muffled breath sounds. equal chest rise. cv: normal rate, regular rhythm. sinus by tele. abd: morbidly obese, soft, nontender, nondistended. no guarding. extr: good cap refill. neuro: RASS -2. follows commands. A/P Assessment and Plan Assessment: This is a 67yF with super morbid obesity and a chronic debilitated course which has included multiple prior respiratory failures requiring mechanical ventilation, including a recent intubation a year ago requiring tracheostomy and LTAC admission who presents with septic shock, multiorgan failure. Remains in shock. Pyelonephritis as source. very poor prognosis. prealbumin of 3 suggestive of long-standing severe protein calorie malnutrition. shock and renal failure persist, despite now with source control. will continue aggressive measures per family request. remains critically ill. will start SBTs, but in past admissions, she has had significant failure to wean from mechanical ventilation requiring LTAC, and she is more deconditioned during this admission than in prior: unlikely to separate quickly from mechanical ventilation. off pathway. if we withdraw support, she would . Neuro: Metabolic Encephalopathy - improving. - frequent neuro checks - transition to precedex for sedation. Resp: Acute hypoxic and hypercarbic respiratory failure Healthcare Associated Pneumonia - vent bundle, elevated hob, nebs - abx as below. - sputum culture: MRSA - start SBTs. unlikely to wean quickly given chronic debilitation and prior failures to wean. - wean fio2 for goal spo2 > 90% CV: Septic Shock - severe, persistent. Atrial fibrillation with rapid ventricular response - resolved. now in NSR. - decrease mivf to 75cc/hr. - stop amio drip. start amio 200mg IV q12h. will avoid PO dosing while in shock on multiple vasopressors: unlikely to have adequate enteral absorption. - levophed and vasopressin for goal map > 65 mmHg. - stress dose steroids. Renal: Acute Kidney Injury Acute pyelonephritis - strict i/o's - monitor Cr on daily cbc - urology consult - emergent cysto with stent / - uop remains marginal. continue to monitor. FEN/GI: Super Morbid Obesity Lactic Acidosis Anion-gap Metabolic acidosis Acute intravascular volume overload Severe acute protein calorie malnutrition - NPO while in shock - pre-albumin 3. trend weekly. - ivf - ICU electrolyte protocol when Cr improves. Heme/ID: History of prior MRSA pneumonia Acute pyelonephritis Pseudomonas bacteremia - ID on board. - abx per Mitzi - 11/15 blood cultures: pseudomonas - 2 urine culture: pseudomonas - 11/15 sputum culture: MRSA Zerbaxa and linezolid. Endocrine: Hyperglycemia of Critical Illness - q6h SSI, med scale Prophylaxis: SCDs, SQH Pepcid Lines: - 2/ ER placed right femoral TLC, unintentionally discontinued 11/16. - 2/ emergent right IJ triple lumen catheter - 11/15 left radial art line - nonfunctional today 11/18 and removed. - Solitario Dispo: remain in ICU. critically ill. This patient remains critically ill with one or more organ systems which are or may become a threat to life. I have spent in excess of 31 minutes discontinuously in the care and management of this patient. This time is exclusive of procedures, and includes, but is not limited to, evaluation of the patient, review of the medical record, discussions with family, consultants, nursing staff, or respiratory therapy, and documentation in the medical record. Christ Mullins MD Nov 18, 2017 10:24
[2017-11-18] MEDS ORDERED: DEXMEDETOMIDINE INJ 200 MCG in SODIUM CHLORIDE 0.9% INJ 50 ML IV PRN (10:30)
[2017-11-18] MEDS: DEXMEDETOMIDINE INJ 1,000 MCG in SODIUM CHLOR 0.9% 250 ML INJ 240 ML IV PRN (11:30)
[2017-11-18] MEDS: AMIODARONE INJ 200 MG in DEXTROSE 5% IN WATER 100ML INJ 97 ML IV SCH ×2 (11:30)
--- NOTE | 2017-11-18 15:13 | HHI.PR ---
Subjective Patient symptoms today Mild clinic al improvement. KUB identifies stent, appears to be in proper position, however still difficult to visualize Objective Vital Signs Vital Signs Date Time Temp Pulse Resp B/P (MAP) Pulse Ox O2 Delivery O2 Flow Rate FiO2 11/18/17 14:00 75 2/18 12:16 82 15 93/54 (67) 96 2//18 12:01 97.7 89 15 93/71 (78) 96 11/18/17 12:00 50 2//18 12:00 85 2/18 11:47 96 50 2//18 11:45 85 14 104/67 (79) 95 2/18 11:30 78 15 93/51 (65) 96 2/01/30 11:30 79 93/51 2//18 11:30 78 93/51 2//18 11:16 78 15 112/51 (71) 97 2//18 11:01 76 15 116/46 (69) 97 2//18 10:45 81 15 114/54 (74) 95 2//18 10:30 81 15 104/53 (70) 95 2//18 10:01 94 15 97/51 (66) 95 2//18 10:00 92 2//18 10:00 92 15 94 2//18 10:00 92 97/51 2//18 09:45 91 15 117/56 (76) 94 2//18 09:30 92 15 120/59 (79) 95 2//18 09:25 88 15 132/58 (82) 96 2//18 09:01 89 15 122/58 (79) 96 2//18 09:00 91 15 95 2//18 08:41 87 121/77 2//18 08:23 97 50 2//18 08:15 81 15 119/58 (78) 96 18 08:00 50 2//18 08:00 79 2//18 08:00 97.7 79 15 /86 97 106/57 (73) 18 06:45 79 104/49 2//18 06:45 79 104/49 2//18 06:45 79 104/49 2//18 06:00 92 /18 05:03 85 114/57 2//18 05:00 80 114/57 2//18 05:00 80 114/57 2//18 05:00 80 114/57 2//18 05:00 80 114/57 2//18 04:15 85 15 79/79 (79) 96 118/57 (77) 18 04:00 84 2/18 04:00 50 2//18 04:00 98.2 84 15 76/76 (76) 96 131/58 (82) 2/18 03:45 90 15 74/73 (73) 96 131/60 (83) 18 03:30 95 15 102/97 (99) 95 218 03:24 97 50 /18 03:15 86 15 83/79 (80) 97 /18 03:07 81 103/64 2//18 03:00 89 15 104/63 (77) 97 2//18 02:45 91 15 102/63 (76) 97 2//18 02:30 92 15 103/64 (77) 97 2//18 02:15 94 15 102/63 (76) 97 2//18 02:00 95 15 95/62 (73) 96 112/51 (71) 18 02:00 90 2//18 02:00 87 104/61 2//18 02:00 87 104/61 2//18 02:00 87 104/61 2//18 02:00 87 104/61 2//18 01:45 107 15 99/65 (76) 95 127/58 (81) 2/18 01:45 102 99/64 2//18 01:45 102 99/64 2//18 01:45 102 99/64 2//18 01:45 102 99/64 2//18 01:30 99 103/65 (78) 2//18 01:15 103 16 109/72 (84) 96 2//18 01:00 86 15 107/63 (78) 97 2//18 00:45 86 15 100/61 (74) 97 2//18 00:30 82 15 91/58 (69) 97 2//18 00:15 90 15 98/60 (73) 97 2/4/18 00:00 89 2//18 00:00 98.4 85 15 99/62 (74) 94 98/61 (73) 2/4/18 00:00 50 2/3/18 23:45 93 15 103/63 (76) 96 2/3/18 23:33 97 50 2/3/18 23:30 81 15 102/63 (76) 97 2/3/18 23:15 82 15 98/60 (73) 98 2/3/18 23:00 83 15 96/60 (72) 97 2/3/18 22:45 81 15 95/59 (71) 97 2/3/18 22:30 81 97/62 2/3/18 22:30 85 15 98/60 (73) 97 2/3/18 22:15 90 15 98/60 (73) 97 2/3/18 22:01 85 15 96/59 (71) 97 110/65 (80) 2//18 22:00 87 2/3/18 21:45 88 15 99/60 (73) 97 2/3/18 21:45 89 100/88 2/3/18 21:30 93 15 99/60 (73) 97 2/3/18 21:15 96 15 100/61 (74) 96 2/3/18 21:00 95 15 99/61 (74) 96 2/3/18 21:00 89 101/58 2/3/18 20:30 101 15 101/62 (75) 96 2/3/18 20:15 118 17 106/67 (80) 96 2/3/18 20:00 96 2/3/18 20:00 50 2/3/18 20:00 98.7 108 15 103/65 (78) 94 127/56 (79) 2/3/18 19:45 107 15 98/65 (76) 96 2//18 19:35 100 50 2/3/18 19:30 108 15 98/70 (79) 93 124/66 (85) 2/3/18 19:15 104 15 153/146 (148) 94 2/3/18 19:00 86 15 93/61 (72) 96 121/54 (76) 2/3/18 18:05 101 92/61 11/17/17 18:05 98 93/62 11/17/17 18:05 94 92/64 11/17/17 18:04 87 89/62 11/17/17 18:00 90 11/17/17 17:30 93 15 88/64 (72) 95 110/51 (70) 11/17/17 17:15 91 15 91/63 (72) 95 104/51 (68) 11/17/17 17:00 95 15 86/60 (69) 95 100/50 (67) 11/17/17 16:45 98 15 87/63 (71) 95 104/67 (79) 11/17/17 16:30 101 15 82/58 (66) 95 91/55 (67) 11/17/17 16:15 104 15 94/67 (76) 95 110/53 (72) 11/17/17 16:00 99 11/17/17 16:00 98.7 99 15 92/64 (73) 95 105/53 (70) 11/17/17 16:00 50 11/17/17 15:48 97 50 11/17/17 15:45 86 15 91/62 (72) 94 107/52 (70) 11/17/17 15:30 96 15 91/63 (72) 94 108/53 (71) 11/17/17 15:15 87 15 92/62 (72) 94 112/55 (74) Intake & Output 11/18/17 11/18/17 07:00 19:00 Intake Total 2871 ml 373 ml Output Total 100 ml Balance 2771 ml 373 ml IV Total 2821 ml 373 ml Tube Irrigant 50 ml Output Urine Total 100 ml Gastric Drainage Total 0 ml # Bowel Movements 0 Result Diagram: 11/18/17 0250 11/18/17 0250 Objective Remarks Intubated Dark somewhat cloudy urine with garcia Medications and IVs Current Medications Medications (Trade) Dose Ordered Sig/Mirta Route Start Time Stop Time Status Last Admin (Brethine Inj) 1 mg UNSCH PRN SQ 11/15/17 12:45 (Peridex 0.12% Liq) 15 ml BID@08,20 MT 11/15/17 20:00 11/18/17 08:28 (D50w (Vial) Inj) 25 ml UNSCH PRN IV PUSH 11/15/17 14:00 (NovoLIN R SUPPLEMENTAL SCALE) 1 Q6HR SQ 11/15/17 18:00 11/18/17 12:00 (Duoneb Neb) 1 ampule Q6HR NEB INH 11/15/17 16:00 11/18/17 14:29 (Duoneb Neb) 1 ampule Q2HR NEB PRN INH 11/15/17 14:00 11/17/17 23:39 Sodium Chloride 1,000 ml @ 75 mls/hr [id number] IV 11/15/17 15:00 11/18/17 06:49 (Tylenol) 650 mg Q6H PRN PO 11/15/17 14:00 (Pepcid Inj) 10 mg Q12HR IV PUSH 11/15/17 21:00 11/18/17 08:27 (Zofran Inj) 4 mg Q6H PRN IV PUSH 11/15/17 14:00 (Heparin Inj) 5,000 units Q8H SQ 11/15/17 15:00 11/18/17 14:15 Miscellaneous Information 1 [id number] XX 11/15/17 14:00 11/15/17 19:00 (Chlorhexidine 2% Cloth) 3 pack Taper DAILY@04 TOP 11/16/17 04:00 11/12/18 03:59 11/18/17 00:56 (Chlorhexidine 2% Cloth) 3 pack UNSCH PRN TOP 11/15/17 14:00 (Zelda-Colace) 1 tab BID PO 11/15/17 21:00 11/18/17 08:26 (Milk Of Magnesia Liq) 30 ml Q12H PRN PO 11/15/17 14:00 (Senokot) 17.2 mg Q12H PRN PO 11/15/17 14:00 (Dulcolax Supp) 10 mg DAILY PRN RECTAL 11/15/17 14:00 (Lactulose Liq) 30 ml DAILY PRN PO 11/15/17 14:00 Vasopressin 40 units/Dextrose 100 ml @ 6 mls/hr [id number] IV 11/15/17 14:12 11/18/17 08:41 (SoluCORTEF INJ) 50 mg Q6HR IV PUSH 11/15/17 16:15 11/18/17 12:00 Ceftolozane/ Tazobactam 375 mg/ Sodium Chloride 100 ml @ 100 mls/hr Q8H IV 11/15/17 17:30 11/18/17 08:37 Norepinephrine Bitartrate 16 mg/ Dextrose 250 ml @ 1.87 mls/hr TITRATE PRN IV 11/15/17 22:45 11/18/17 03:07 Linezolid 300 ml @ 300 mls/hr Q12H IV 11/16/17 07:00 11/18/17 05:14 Cefazolin Sodium 3000 mg/Sodium Chloride 130 ml @ 200 mls/hr TANDEM OPERATOR IV 11/16/17 15:45 11/19/17 15:44 (Peridex 0.12% Liq) 15 ml BID@08,20 MT 11/16/17 20:00 Amiodarone HCl 200 mg/Dextrose 101 ml @ 202 mls/hr Q12H IV 11/18/17 12:00 11/18/17 11:30 Dexmedetomidine HCl 1000 mcg/ Sodium Chloride 250 ml @ 9.07 mls/hr TITRATE PRN IV 11/18/17 11:15 11/18/17 11:30 Assessment and Plan Problem List: (1) Hydronephrosis ICD Code: N13.30 - Unspecified hydronephrosis (2) Pneumonia ICD Code: J18.9 - Pneumonia, unspecified organism Status: Acute (3) CHF (congestive heart failure) ICD Code: I50.9 - Heart failure, unspecified Status: Acute Assessment and Plan -Continue to monitor -KUB with stent visible, appears to be in proper position proximally in the kidney -If her clinical status does not improve may consider repeat CT scan to better characterize stent position -If the stent is not in proper position, she will need IR nephrostomy tube Mirza Ocampo MD Nov 18, 2017 15:13
[2017-11-19] VITALS (55 sets, daily range): BP systolic 81–131; BP diastolic 36–60; PULSE 70–85; RESP 15–18; TEMP 98.6–99.3; O2SAT 93–100
[2017-11-19] MEDS: AMIODARONE INJ 200 MG in DEXTROSE 5% IN WATER 100ML INJ 97 ML IV SCH ×4 (00:14→12:00)
[2017-11-19] MEDS: HYDROCORTISONE SOD SUCCINATE 100 MG VIAL IV PUSH SCH ×3 (00:14→20:48)
[2017-11-19] MEDS: CEFTOLOZANE-TAZOBACTAM INJ 375 MG in SODIUM CHLORIDE 0.9% INJ 100 ML IV SCH ×2 (00:15→13:14)
[2017-11-19] MEDS: RESP: ALBUTEROL 2.5 MG/IPRATROPIUM 0.5 MG NEB (SCH) INH ×3 (03:41→15:46)
[2017-11-19] MEDS: CHLORHEXIDINE GLUCONATE 2 % 1 PACK (2 CLOTHS) TOP SCH (04:00)
[2017-11-19 05:28] LABS: HEMATOCRIT 32.2 % (35.0-46.0); HEMOGLOBIN 10.4 GM/DL (11.6-15.3); MEAN CELL VOLUME 85.5 FL (80.0-100.0); MEAN CORPUSCULAR HEMOGLOBIN 27.6 PG (27.0-34.0); MEAN CORPUSCULAR HGB CONC 32.2 % (32.0-36.0); MEAN PLATELET VOLUME 8.2 FL (7.0-11.0); PLATELET COUNT 171 TH/MM3 (150-450); RED BLOOD COUNT 3.76 MIL/MM3 (4.00-5.30); RED CELL DISTRIBUTION WIDTH 21.6 % (11.6-17.2); WHITE BLOOD COUNT 15.3 TH/MM3 (4.0-11.0)
[2017-11-19 05:48] LABS: BICARBONATE 22.7 MEQ/L (21.0-32.0); CALCIUM 6.6 MG/DL (8.5-10.1); CREATININE 2.94 MG/DL (0.50-1.00)
[2017-11-19 06:01] LABS: CALCIUM-PROTEIN CORRECTED 7.6 MG/DL (8.5-10.1); TOTAL PROTEIN 5.1 GM/DL (6.4-8.2)
[2017-11-19] MEDS: LINEZOLID 600 MG PREMIX 300 ML IV SCH ×2 (06:53→18:25)
[2017-11-19] MEDS: INSULIN NovoLIN REGULAR SUPPLEMENTAL SCALE SQ SCH ×4 (06:53→18:00)
[2017-11-19] MEDS: HEPARIN SODIUM - SQ 10,000 UNITS/ML VIAL SQ SCH ×3 (06:53→23:00)
[2017-11-19] MEDS: VASOPRESSIN INJ 40 UNITS in DEXTROSE 5% IN WATER 100ML INJ 98 ML IV SCH ×4 (06:54→18:26)
[2017-11-19] MEDS ORDERED: FUROSEMIDE 40 MG/4 ML VIAL IV PUSH ONE (07:15)
--- NOTE | 2017-11-19 07:23 | HHI.CCPN ---
Subjective Remarks/Hospital Course Hospital Course: 67yF with super morbid obesity who has had multiple prior admissions for MRSA pneumonia and respiratory failure presents by EMS for recurrent respiratory failure. She resides in a SNF. She was found unresponsive this morning. She was intubated in the field. In the emergency department she was hypotensive despite ivf resuscitation and required norepinephrine for vasopressor support. she has a wbc 52k, lactate of 6.9, Cr 2.87 (baseline 0.5, prior admission discharge was 1.8). u/a concerning for probable UTI as well. Subjective: 2/: remained unstable throughout the night overnight. on 3 vasopressors. this morning, no better, wbc higher. decision by Dr. Cartagena and myself to emergently CT abd/pelvis to rule out source control, despite ongoing hemodynamic instability. CT abd/pelvis demonstrated right hydronephrosis with likely obstructive pyelonephritis. discussed with urology and interventional radiology : likely to decompensate during procedure. unable to physically prone patient. difficult technically with high risk to do supine lateral CT guided perc nephrostomy tube. urology to take to the OR for cysto with stenting. Prior to leaving for OR, patient's central line was pulled accidentally. patient had no other iv access. I/O needles unavailable. emergently replaced central line in right IJ (see separate procedure note for details). due to ongoing shock, patient's blood pressure in 40s systolic during this time. restarted vasopressors after central access regained. went to OR. cultures growing pseudomonas. 2/: minimal improvements. taken to OR yesterday for cysto. minimal uop overnight. off epinephrine but remains on 2 vasopressors, in shock. wbc downtrending but > 50k. 11/18: vasopressor requirements are improving slightly. remains on 2 vasopressors and in shock. blood and urine growing pseudomonas, sputum growing MRSA (history of MRSA pneumonia). wbc downtrending, but remains very high. uop marginal. 11/19 Patient remains sedated and intubated. On Levophed 2 mics, Vasopressin 0.04 mics. WBC is trending down. Objective Vital Signs Date Time Temp Pulse Resp B/P (MAP) Pulse Ox O2 Delivery O2 Flow Rate FiO2 11/19/17 06:54 78 124/50 11/19/17 04:00 98.7 18 93 11/19/17 03:40 40 11/15/17 15:42 Ventilator Result Diagram: 11/19/17 0450 11/19/17 0450 Other Results Laboratory Tests Test 11/19/17 04:50 White Blood Count 15.3 TH/MM3 Red Blood Count 3.76 MIL/MM3 Hemoglobin 10.4 GM/DL Hematocrit 32.2 % Mean Corpuscular Volume 85.5 FL Mean Corpuscular Hemoglobin 27.6 PG Mean Corpuscular Hemoglobin Concent 32.2 % Red Cell Distribution Width 21.6 % Platelet Count 171 TH/MM3 Mean Platelet Volume 8.2 FL Blood Urea Nitrogen 40 MG/DL Creatinine 2.94 MG/DL Random Glucose 211 MG/DL Total Protein 5.1 GM/DL Calcium Level 6.6 MG/DL Sodium Level 136 MEQ/L Potassium Level 4.2 MEQ/L Chloride Level 103 MEQ/L Carbon Dioxide Level 22.7 MEQ/L Anion Gap 10 MEQ/L Estimat Glomerular Filtration Rate 16 ML/MIN Protein Corrected Calcium 7.6 MG/DL Imaging Last Impressions Abdomen X-Ray 11/17/17 0000 Signed Impressions: Service Date/Time: Friday, November 17, 2017 19:04 - CONCLUSION: The proximal tip of the double-J stent is either in the expected region of the right renal pelvis or proximal ureter. Allen Mensah MD Chest X-Ray 11/16/17 0000 Signed Impressions: Service Date/Time: Thursday, November 16, 2017 12:43 - CONCLUSION: 1. Right IJ central line tip near the atriocaval junction. 2. No gross pneumothorax or significant interval change. Riccardo Stack MD Abdomen/Pelvis CT 11/16/17 0000 Signed Impressions: Service Date/Time: Thursday, November 16, 2017 08:54 - CONCLUSION: 1. Moderate hydronephrosis right kidney and hydroureter. There is dense material layering within the right renal pelvis and distal ureter of uncertain etiology but could be hemorrhage. Urinalysis and clinical correlation. 2. Hyperdense left renal lesion likely complex cyst. 3. Scattered diverticulosis of the colon. 4. Left basilar consolidation. 5. Left-sided ventral wall hernia. El Nuñez MD Chest CT 11/15/17 1255 Signed Impressions: Service Date/Time: November 14:24 - CONCLUSION: 1. New consolidative infiltrate in the posterior right upper lobe most characteristic of pneumonia. 2. Consolidation also noted in the left lower lobe which is increased from the prior CT. 3. New abnormal streaky density in the posterior upper abdomen located posterior to the liver. This is nonspecific but could represent infection or inflammatory change. 4. Cardiomegaly. Chintan Marshall MD Head CT 11/15/17 1134 Signed Impressions: Service Date/Time: , November 15, 2017 14:13 - CONCLUSION: 1. No acute hemorrhage or mass effect. 2. Atrophy and chronic small vessel ischemic change 3. Air-fluid levels in the maxillary sinuses most characteristic of acute sinusitis. Chintan Marshall MD Objective Remarks gen: super morbidly obese female, lying in bed, intubated, sedated heent: perrl. eomi. mucous membranes moist neck: unable to assess jvd due to large neck circumference. trachea midline chest: muffled breath sounds. equal chest rise. cv: normal rate, regular rhythm. sinus by tele. abd: morbidly obese, soft, nontender, nondistended. no guarding. extr: good cap refill. neuro: RASS -2. follows commands. A/P Assessment and Plan Assessment: This is a 67yF with super morbid obesity and a chronic debilitated course which has included multiple prior respiratory failures requiring mechanical ventilation, including a recent intubation a year ago requiring tracheostomy and LTAC admission who presents with septic shock, multiorgan failure. Remains in shock. Pyelonephritis as source. very poor prognosis. prealbumin of 3 suggestive of long-standing severe protein calorie malnutrition. shock and renal failure persist, despite now with source control. will continue aggressive measures per family request. remains critically ill. Neuro: Metabolic Encephalopathy - - frequent neuro checks - On Precedex for sedation. Daily sedation vacation. Resp: Acute hypoxic and hypercarbic respiratory failure Healthcare Associated Pneumonia - Continue with vent support keep sat >92% Bronchodilators, ICU vent bundle. SBT daily as loc - abx as below. - sputum culture: MRSA CV: Septic Shock - severe, persistent. Atrial fibrillation with rapid ventricular response - resolved. now in NSR. Wean off pressors ( on Levophed 2 mics, Vasopressin 0.05 mics) keep MAP>65mmHg Check lactic acid level. Decrease Hydrocortisone 50mg Q12 Renal: Acute Kidney Injury Acute pyelonephritis Monitor renal function, I/O's, avoid nephrotoxins Cr:2.94 from 2.86, Diurese with Lasix 40mg x1. d/c IVF - s/p Emergent cysto with stent 2/2, Urology is following [place] bridges, FEN/GI: Super Morbid Obesity Lactic Acidosis Anion-gap Metabolic acidosis Acute intravascular volume overload Severe acute protein calorie malnutrition -Start tube feeds- Nepro with goal rate 40ml/hr -On Pepcid for GI prophylaxis Heme/ID: History of prior MRSA pneumonia Acute pyelonephritis Pseudomonas bacteremia - ID on board. - abx per Nemzeeshan. On Zyvox and Zerbaxa. Monitor for signs of infections ( Fever , WBC) - 2/3 Urine cx :GNR - 2/1 blood cultures: pseudomonas - 2/1 urine culture: pseudomonas - 2/1 sputum culture: MRSA Endocrine: Hyperglycemia of Critical Illness - q6h SSI, med scale Prophylaxis: SCDs, SQH Pepcid Lines: - 2/2 right IJ triple lumen catheter - Solitario Dispo: remain in ICU. critically ill. This patient remains critically ill with one or more organ systems which are or may become a threat to life. CCT 30 mins Juma Pak MD Nov 19, 2017 07:23
[2017-11-19] MEDS: CHLORHEXIDINE 0.12% (ORAL KIT) 15 ML CUP MT SCH ×4 (08:00→20:00)
[2017-11-19] MEDS ORDERED: DEXMEDETOMIDINE INJ 1,000 MCG in SODIUM CHLOR 0.9% 250 ML INJ 240 ML IV PRN (08:15)
[2017-11-19] MEDS: DEXMEDETOMIDINE INJ 1,000 MCG in SODIUM CHLOR 0.9% 250 ML INJ 240 ML IV PRN (09:00)
--- NOTE | 2017-11-19 09:47 | PD.CONS ---
HPI Service Nephrology Consult Requested By Dr. Carreno Reason for Consult FREDDY Primary Care Physician Unknown History of Present Illness Patient is a 67yF with morbid obesity who presented to ED with respiratory failure. She was found unresponsive and intubated in field. Consulted with rising renal indices with a creatinine of 2.94 form 2.86. Lasix given X 1. Patient is very edematous. UOP minimal. If weight is accurate significant weight gain. Patient is s/p emergent cysto with stent placement on 11/16. Noted to have a GFR of 15ml/min at last hospitalization on 09/30. (Niharika Cui) Review of Systems ROS Limitations: Intubated (Niharika Cui) Past Family Social History Allergies: Coded Allergies: penicillin G (Unverified Allergy, Severe, 05/29/17) Past Medical History Chronic asthma home oxygen Atrial fibrillation Hyperlipidemia Hypertension excellent diabetes mellitus GERD Morbid obesity BMI 55 recurrent MRSA pneumonia prior tracheostomy 2016, now decannulated Past Surgical History Appendectomy Hernia surgery Tracheostomy placement obtained per records Active Ordered Medications Current Medications Medications (Trade) Dose Ordered Sig/Mirta Route Start Time Stop Time Status Last Admin (Brethine Inj) 1 mg UNSCH PRN SQ 11/15/17 12:45 (Peridex 0.12% Liq) 15 ml BID@08,20 MT 11/15/17 20:00 11/18/17 08:28 (D50w (Vial) Inj) 25 ml UNSCH PRN IV PUSH 11/15/17 14:00 (NovoLIN R SUPPLEMENTAL SCALE) 1 Q6HR SQ 11/15/17 18:00 11/19/17 06:53 (Duoneb Neb) 1 ampule Q6HR NEB INH 11/15/17 16:00 11/19/17 08:04 (Duoneb Neb) 1 ampule Q2HR NEB PRN INH 11/15/17 14:00 11/17/17 23:39 (Tylenol) 650 mg Q6H PRN PO 11/15/17 14:00 (Pepcid Inj) 10 mg Q12HR IV PUSH 11/15/17 21:00 11/19/17 09:53 (Zofran Inj) 4 mg Q6H PRN IV PUSH 11/15/17 14:00 (Heparin Inj) 5,000 units Q8H SQ 11/15/17 15:00 11/19/17 06:53 Miscellaneous Information 1 Q361D XX 11/15/17 14:00 11/15/17 19:00 (Chlorhexidine 2% Cloth) 3 pack Taper DAILY@04 TOP 11/16/17 04:00 11/12/18 03:59 11/18/17 00:56 (Chlorhexidine 2% Cloth) 3 pack UNSCH PRN TOP 11/15/17 14:00 (Zelda-Colace) 1 tab BID PO 11/15/17 21:00 11/19/17 09:52 (Milk Of Magnesia Liq) 30 ml Q12H PRN PO 11/15/17 14:00 (Senokot) 17.2 mg Q12H PRN PO 11/15/17 14:00 (Dulcolax Supp) 10 mg DAILY PRN RECTAL 11/15/17 14:00 (Lactulose Liq) 30 ml DAILY PRN PO 11/15/17 14:00 Vasopressin 40 units/Dextrose 100 ml @ 6 mls/hr [id number] IV 11/15/17 14:12 11/19/17 06:54 Ceftolozane/ Tazobactam 375 mg/ Sodium Chloride 100 ml @ 100 mls/hr Q8H IV 11/15/17 17:30 11/19/17 00:15 Norepinephrine Bitartrate 16 mg/ Dextrose 250 ml @ 1.87 mls/hr TITRATE PRN IV 11/15/17 22:45 11/18/17 03:07 Linezolid 300 ml @ 300 mls/hr Q12H IV 11/16/17 07:00 11/19/17 06:53 Cefazolin Sodium 3000 mg/Sodium Chloride 130 ml @ 200 mls/hr ME[employer]ER IV 11/16/17 15:45 11/19/17 15:44 (Peridex 0.12% Liq) 15 ml BID@08,20 MT 11/16/17 20:00 11/19/17 09:54 Amiodarone HCl 200 mg/Dextrose 101 ml @ 202 mls/hr Q12H IV 11/18/17 12:00 11/19/17 00:14 (SoluCORTEF INJ) 50 mg Q12HR IV PUSH 11/19/17 09:00 Dexmedetomidine HCl 1000 mcg/ Sodium Chloride 250 ml @ 9.07 mls/hr TITRATE PRN IV 11/19/17 08:15 Family History Father had heart disease, diabetes, emphysema Mother had mental health issues Obtained per records (Niharika Cui) Physical Exam Vital Signs Vital Signs Date Time Temp Pulse Resp B/P (MAP) Pulse Ox O2 Delivery O2 Flow Rate FiO2 11/19/17 07:59 93 40 11/19/17 06:54 78 124/50 11/19/17 06:00 82 11/19/17 04:00 40 11/19/17 04:00 98.7 80 18 121/57 (78) 93 11/19/17 04:00 82 11/19/17 03:40 95 40 11/19/17 02:00 85 11/19/17 00:30 95 40 11/19/17 00:15 85 131/60 11/19/17 00:14 84 131/60 11/19/17 00:00 60 11/19/17 00:00 99.0 85 16 131/60 (83) 96 11/19/17 00:00 85 11/18/17 22:00 81 11/18/17 21:45 81 132/59 11/18/17 20:15 97 60 11/18/17 20:00 98.9 81 16 132/59 (83) 97 11/18/17 20:00 81 11/18/17 20:00 50 11/18/17 19:43 81 137/56 11/18/17 18:08 77 115/57 11/18/17 18:00 81 11/18/17 16:30 97 50 11/18/17 16:01 98.1 82 15 122/64 (83) 97 11/18/17 16:00 50 11/18/17 16:00 80 15 96 11/18/17 16:00 80 11/18/17 15:45 81 15 122/65 (84) 95 11/18/17 15:30 79 15 121/63 (82) 95 11/18/17 15:15 80 15 119/54 (75) 96 11/18/17 15:00 78 15 107/64 (78) 96 11/18/17 14:45 76 15 102/59 (73) 96 11/18/17 14:30 76 15 106/64 (78) 97 11/18/17 14:15 74 15 104/57 (73) 97 11/18/17 14:00 75 15 104/58 (73) 97 11/18/17 14:00 75 18 13:46 75 15 111/56 (74) 98 11/18/17 13:30 76 15 110/55 (73) 97 11/18/17 13:15 78 15 101/57 (72) 97 11/18/17 13:00 75 15 92/51 (65) 96 11/18/17 12:16 82 15 93/54 (67) 96 11/18/17 12:01 97.7 89 15 93/71 (78) 96 11/18/17 12:00 50 11/18/17 12:00 85 11/18/17 11:47 96 50 11/18/17 11:45 85 14 104/67 (79) 95 11/18/17 11:30 78 15 93/51 (65) 96 11/18/17 11:30 79 93/51 11/18/17 11:30 78 93/51 11/18/17 11:16 78 15 112/51 (71) 97 11/18/17 11:01 76 15 116/46 (69) 97 11/18/17 10:45 81 15 114/54 (74) 95 11/18/17 10:30 81 15 104/53 (70) 95 11/18/17 10:01 94 15 97/51 (66) 95 11/18/17 10:00 92 11/18/17 10:00 92 15 94 11/18/17 10:00 92 97/51 11/18/17 09:45 91 15 117/56 (76) 94 Physical Exam Gerneral: morbidly obese female, lying in bed, intubated, sedated HEENT: mucous membranes moist Neck: trachea midline. No JVD noted Chest: muffled breath sounds. equal chest rise. CV: normal rate, regular rhythm. sinus by tele. Abdomen: soft, nontender, nondistended. no guarding. Extremity: good cap refill. Edematous Neuro: Intubated and sedated Laboratory Laboratory Tests Test 11/19/17 04:50 White Blood Count 15.3 Red Blood Count 3.76 Hemoglobin 10.4 Hematocrit 32.2 Mean Corpuscular Volume 85.5 Mean Corpuscular Hemoglobin 27.6 Mean Corpuscular Hemoglobin Concent 32.2 Red Cell Distribution Width 21.6 Platelet Count 171 Mean Platelet Volume 8.2 Blood Urea Nitrogen 40 Creatinine 2.94 Random Glucose 211 Total Protein 5.1 Calcium Level 6.6 Sodium Level 136 Potassium Level 4.2 Chloride Level 103 Carbon Dioxide Level 22.7 Anion Gap 10 Estimat Glomerular Filtration Rate 16 Protein Corrected Calcium 7.6 Date/Time Source Procedure Growth Status 11/17/17 15:03 Blood Peripheral Aerobic Blood Culture - Preliminary NO GROWTH IN 1 DAY Resulted 11/17/17 15:03 Blood Peripheral Anaerobic Blood Culture - Preliminary NO GROWTH IN 1 DAY Resulted 11/15/17 17:08 Nasal Washing Influenza Types A,B Antigen (NATALIE) - Final NEGATIVE FOR FLU A AND B ANTIGEN.... Complete 11/17/17 09:35 Urine Catheterized Urine Urine Culture - Preliminary Gram Negative Ambrosio Resulted (Niharika Cui) Result Diagram: 11/19/17 0450 11/19/17 0450 Imaging Last Impressions Abdomen X-Ray 11/17/17 0000 Signed Impressions: Service Date/Time: Friday, November 17, 2017 19:04 - CONCLUSION: The proximal tip of the double-J stent is either in the expected region of the right renal pelvis or proximal ureter. Allen Mensah MD Chest X-Ray 11/16/17 0000 Signed Impressions: Service Date/Time: Thursday, November 16, 2017 12:43 - CONCLUSION: 1. Right IJ central line tip near the atriocaval junction. 2. No gross pneumothorax or significant interval change. Riccardo Stack MD Abdomen/Pelvis CT 11/16/17 0000 Signed Impressions: Service Date/Time: Thursday, November 16, 2017 08:54 - CONCLUSION: 1. Moderate hydronephrosis right kidney and hydroureter. There is dense material layering within the right renal pelvis and distal ureter of uncertain etiology but could be hemorrhage. Urinalysis and clinical correlation. 2. Hyperdense left renal lesion likely complex cyst. 3. Scattered diverticulosis of the colon. 4. Left basilar consolidation. 5. Left-sided ventral wall hernia. El Nuñez MD Chest CT 11/15/17 1255 Signed Impressions: Service Date/Time: November 14:24 - CONCLUSION: 1. New consolidative infiltrate in the posterior right upper lobe most characteristic of pneumonia. 2. Consolidation also noted in the left lower lobe which is increased from the prior CT. 3. New abnormal streaky density in the posterior upper abdomen located posterior to the liver. This is nonspecific but could represent infection or inflammatory change. 4. Cardiomegaly. Chintan Marshall MD Head CT 11/15/17 1134 Signed Impressions: Service Date/Time: November 14:13 - CONCLUSION: 1. No acute hemorrhage or mass effect. 2. Atrophy and chronic small vessel ischemic change 3. Air-fluid levels in the maxillary sinuses most characteristic of acute sinusitis. Chintan Marshall MD (Niharika Cui) Assessment and Plan Problem List: (1) FREDDY (acute kidney injury) ICD Codes: N17.9 - Acute kidney failure, unspecified Plan: FREDDY related to most likely obstruction s/p right urethral stent placement on the 2nd Creatinine 2.94 with a GFR 16 ml/min today GFR noted in / at 15 ml/min UOP overnight at 350 ml. Has been decreased. Edematous and significant weight gain noted. Lasix given X 1 IVF stopped continue pressors to maintain MAP 65 mmhg Plan Monitor accurate I+O Recommend to continue lasix Continue to monitor renal function Avoid nephrotoxins (2) Pneumonia ICD Codes: J18.9 - Pneumonia, unspecified organism Status: Acute Plan: antibiotics per ID (3) Septic shock ICD Codes: A41.9 - Sepsis, unspecified organism; R65.21 - Severe sepsis with septic shock (4) Respiratory failure ICD Codes: J96.90 - Respiratory failure, unspecified, unspecified whether with hypoxia or hypercapnia (Niharika Cui) Problem List: (1) FREDDY (acute kidney injury) ICD Codes: N17.9 - Acute kidney failure, unspecified Plan: FREDDY related to most likely obstruction s/p right urethral stent placement on the 2nd Creatinine 2.94 with a GFR 16 ml/min today GFR noted in 12/2 at 15 ml/min UOP overnight at 350 ml. Has been decreased. Edematous and significant weight gain noted. Lasix given X 1 IVF stopped continue pressors to maintain MAP 65 mmhg Plan Monitor accurate I+O Recommend to continue lasix Continue to monitor renal function Avoid nephrotoxins. Patient seen and examined, agree with above. Patient has Cystoscopy and Stent placement. Now the urine out put decreased. BP is better, on low dose pressors. Check ASHLEY,ANCA and Complements. Increase Lasix, if not better, possible HD. (2) Pneumonia ICD Codes: J18.9 - Pneumonia, unspecified organism Status: Acute Plan: antibiotics per ID (3) Septic shock ICD Codes: A41.9 - Sepsis, unspecified organism; R65.21 - Severe sepsis with septic shock (4) Respiratory failure ICD Codes: J96.90 - Respiratory failure, unspecified, unspecified whether with hypoxia or hypercapnia (Shey Marcelino MD) Niharika Cui Nov 19, 2017 09:47 Shey Marcelino MD Nov 19, 2017 15:34
[2017-11-19] MEDS: DOCUSATE SODIUM 50 MG/SENNA 8.6 MG TAB PO SCH ×2 (09:52→20:47)
[2017-11-19] MEDS: FAMOTIDINE 20 MG/2 ML VIAL IV PUSH SCH ×2 (09:53→20:47)
--- NOTE | 2017-11-19 10:25 | HHI.IDPN ---
Subjective Subjective Remarks is a 67 y/o CF morbidly obese with BMI 58.7 kg/m2 who has had multiple prior admissions for MRSA pneumonia and respiratory failure presents by EMS for recurrent respiratory failure. She resides in a SNF. She was found unresponsive this morning. She was intubated in the field. She has a wbc 52k, lactate of 6.9, Cr 2.87 (baseline 0.5, prior admission discharge was 1.8). u/a concerning for probable UTI as well. In the emergency department patient received 3 IV fluid boluses and continued to be hypotensive needing vasopressor support. Upon review of records it appears she was recently treated in Oct 15 for UTI at [facility] with macrobid. EMAR from [facility] with no antibiotics but was on lactobacillus. Spoke to CHILO Moura at [facility] patient has 2-3 episodes of vomiting yesterday at [facility] and received antiemetics. T:98, BP: 110/62, 96% RA, BS: 108. Patient was not on any antibiotics. No diarrhea. Lasix increased due to pedal edema. No cultures drawn. No flu test done per records. She has a prior h/o admission at [place] admitted in late 2016 when she was in the ICU intubated needing a trach eventually. During that admission patient was treated for MRSA pneumonia but also she has a history of pseudomonas infections in the past. Pseudomonas in the past with pansensitive cultures but given her multiple hospitalization and multiple courses of antibiotics she stands at this for multidrug-resistant Pseudomonas. At the time of my evaluation patient is in the IMC appears very critically ill intubated. Patient is on vasopressin 0.04, we will fed 40 mics, epinephrine 10/9, amiodarone drip at 1 g. Patient has 0 urine output at the present time. She has small white secretions. She has no diarrhea. Abdomen appears benign. No response to verbal or other stimuli for me but RN reports when daughter was here earlier she opened eyes, moved limbs and squeezed RNs fingers. Currently sedation is off but patient in ARF with no urine output. Infectious disease consultation was requested for evaluation and management of septic shock, pneumonia. Notes reviewed D/W RN On pressors - vasopressin 0.04. Much reduced pressor requirements over last 2 days. Sedation being decreased, more awake. Opens eyes spontaneously. FiO2 at 40% Secretions not much, pale white. Solitario in place, color better UO still low, though creatinine improving S/P urologic procedure 11/16/17 No fevers No rash No diarrhea WBC continues to improve Atrial fib. Antibiotics Current Medications Zerbaxa IV Zyvox Current Medications Medications (Trade) Dose Ordered Sig/Mirta Route Start Time Stop Time Status Last Admin (Brethine Inj) 1 mg UNSCH PRN SQ 11/15/17 12:45 (Peridex 0.12% Liq) 15 ml BID@08,20 MT 11/15/17 20:00 11/18/17 08:28 (D50w (Vial) Inj) 25 ml UNSCH PRN IV PUSH 11/15/17 14:00 (NovoLIN R SUPPLEMENTAL SCALE) 1 Q6HR SQ 11/15/17 18:00 11/19/17 06:53 (Duoneb Neb) 1 ampule Q6HR NEB INH 11/15/17 16:00 11/19/17 08:04 (Duoneb Neb) 1 ampule Q2HR NEB PRN INH 11/15/17 14:00 11/17/17 23:39 (Tylenol) 650 mg Q6H PRN PO 11/15/17 14:00 (Pepcid Inj) 10 mg Q12HR IV PUSH 11/15/17 21:00 11/19/17 09:53 (Zofran Inj) 4 mg Q6H PRN IV PUSH 11/15/17 14:00 (Heparin Inj) 5,000 units Q8H SQ 11/15/17 15:00 11/19/17 06:53 Miscellaneous Information 1 Q361D XX 11/15/17 14:00 11/15/17 19:00 (Chlorhexidine 2% Cloth) 3 pack Taper DAILY@04 TOP 11/16/17 04:00 11/12/18 03:59 11/18/17 00:56 (Chlorhexidine 2% Cloth) 3 pack UNSCH PRN TOP 11/15/17 14:00 (Zelda-Colace) 1 tab BID PO 11/15/17 21:00 11/19/17 09:52 (Milk Of Magnesia Liq) 30 ml Q12H PRN PO 11/15/17 14:00 (Senokot) 17.2 mg Q12H PRN PO 11/15/17 14:00 (Dulcolax Supp) 10 mg DAILY PRN RECTAL 11/15/17 14:00 (Lactulose Liq) 30 ml DAILY PRN PO 11/15/17 14:00 Vasopressin 40 units/Dextrose 100 ml @ 6 mls/hr [id number] IV 11/15/17 14:12 11/19/17 06:54 Ceftolozane/ Tazobactam 375 mg/ Sodium Chloride 100 ml @ 100 mls/hr Q8H IV 11/15/17 17:30 11/19/17 00:15 Norepinephrine Bitartrate 16 mg/ Dextrose 250 ml @ 1.87 mls/hr TITRATE PRN IV 11/15/17 22:45 11/18/17 03:07 Linezolid 300 ml @ 300 mls/hr Q12H IV 11/16/17 07:00 11/19/17 06:53 Cefazolin Sodium 3000 mg/Sodium Chloride 130 ml @ 200 mls/hr SUPERVIS[employer]ING [employer]ERKS IV 11/16/17 15:45 11/19/17 15:44 (Peridex 0.12% Liq) 15 ml BID@08,20 MT 11/16/17 20:00 11/19/17 09:54 Amiodarone HCl 200 mg/Dextrose 101 ml @ 202 mls/hr Q12H IV 11/18/17 12:00 11/19/17 00:14 (SoluCORTEF INJ) 50 mg Q12HR IV PUSH 11/19/17 09:00 Dexmedetomidine HCl 1000 mcg/ Sodium Chloride 250 ml @ 9.07 mls/hr TITRATE PRN IV 11/19/17 08:15 Lines RIJ TLC Past Medical History Past Medical History Chronic asthma home oxygen Atrial fibrillation Hyperlipidemia Hypertension excellent diabetes mellitus GERD Morbid obesity BMI 55 Past Surgical History Appendectomy Hernia surgery Tracheostomy placement Allergies: Coded Allergies: penicillin G (Unverified Allergy, Severe, 05/29/17) Objective . Vital Signs Date Time Temp Pulse Resp B/P (MAP) Pulse Ox O2 Delivery O2 Flow Rate FiO2 11/19/17 07:59 93 40 11/19/17 06:54 78 124/50 11/19/17 06:00 82 11/19/17 04:00 40 11/19/17 04:00 98.7 80 18 121/57 (78) 93 11/19/17 04:00 82 2/5/18 03:40 95 40 2/18 02:00 85 2/18 00:30 95 40 2/18 00:15 85 131/60 2/18 00:14 84 131/60 2/18 00:00 60 2/18 00:00 99.0 85 16 131/60 (83) 96 18 00:00 85 2 22:00 81 2/18 21:45 81 132/59 218 20:15 97 60 2/18 20:00 98.9 81 16 132/59 (83) 97 11/18/17 20:00 81 2 20:00 50 18 19:43 81 137/56 11/18/17 18:08 77 115/57 11/18/17 18:00 81 11/18/17 16:30 97 50 11/18/17 16:01 98.1 82 15 122/64 (83) 97 11/18/17 16:00 50 11/18/17 16:00 80 15 96 11/18/17 16:00 80 /01/30 15:45 81 15 122/65 (84) 95 11/18/18 15:30 79 15 121/63 (82) 95 11/18/17 15:15 80 15 119/54 (75) 96 18 15:00 78 15 107/64 (78) 96 11/18/17 14:45 76 15 102/59 (73) 96 18 14:30 76 15 106/64 (78) 97 11/18/18 14:15 74 15 104/57 (73) 97 //18 14:00 75 15 104/58 (73) 97 //18 14:00 75 2/18 13:46 75 15 111/56 (74) 98 2//18 13:30 76 15 110/55 (73) 97 18 13:15 78 15 101/57 (72) 97 /18 13:00 75 15 92/51 (65) 96 11/18/18 12:16 82 15 93/54 (67) 96 18 12:01 97.7 89 15 93/71 (78) 96 2/18 12:00 50 11/18/17 12:00 85 11/18/17 11:47 96 50 11/18/17 11:45 85 14 104/67 (79) 95 11/18/17 11:30 78 15 93/51 (65) 96 11/18/17 11:30 79 93/51 11/18/17 11:30 78 93/51 11/18/17 11:16 78 15 112/51 (71) 97 11/18/17 11:01 76 15 116/46 (69) 97 11/18/17 10:45 81 15 114/54 (74) 95 11/18/17 10:30 81 15 104/53 (70) 95 . Laboratory Tests Test 11/18/17 02:50 11/19/17 04:50 White Blood Count 34.1 TH/MM3 15.3 TH/MM3 Red Blood Count 3.64 MIL/MM3 3.76 MIL/MM3 Hemoglobin 10.1 GM/DL 10.4 GM/DL Hematocrit 31.6 % 32.2 % Mean Corpuscular Volume 86.9 FL 85.5 FL Mean Corpuscular Hemoglobin 27.8 PG 27.6 PG Mean Corpuscular Hemoglobin Concent 32.0 % 32.2 % Red Cell Distribution Width 21.6 % 21.6 % Platelet Count 220 TH/MM3 171 TH/MM3 Mean Platelet Volume 8.2 FL 8.2 FL Laboratory Tests Test 11/18/17 02:50 11/19/17 04:50 Blood Urea Nitrogen 32 MG/DL 40 MG/DL Creatinine 2.86 MG/DL 2.94 MG/DL Random Glucose 196 MG/DL 211 MG/DL Total Protein 5.0 GM/DL 5.1 GM/DL Calcium Level 6.5 MG/DL 6.6 MG/DL Sodium Level 138 MEQ/L 136 MEQ/L Potassium Level 4.2 MEQ/L 4.2 MEQ/L Chloride Level 103 MEQ/L 103 MEQ/L Carbon Dioxide Level 23.4 MEQ/L 22.7 MEQ/L Anion Gap 12 MEQ/L 10 MEQ/L Estimat Glomerular Filtration Rate 16 ML/MIN 16 ML/MIN Protein Corrected Calcium 7.5 MG/DL 7.6 MG/DL Microbiology Date/Time Source Procedure Growth Status 11/17/17 15:03 Blood Peripheral Aerobic Blood Culture - Preliminary NO GROWTH IN 1 DAY Resulted 11/17/17 15:03 Blood Peripheral Anaerobic Blood Culture - Preliminary NO GROWTH IN 1 DAY Resulted 11/17/17 11:04 Blood Peripheral Aerobic Blood Culture - Preliminary NO GROWTH IN 1 DAY Resulted 11/17/17 11:04 Blood Peripheral Anaerobic Blood Culture - Preliminary NO GROWTH IN 1 DAY Resulted 11/17/17 09:35 Urine Catheterized Urine Urine Culture - Preliminary Gram Negative Ambrosio Resulted Imaging Last Impressions Abdomen X-Ray 11/17/17 0000 Signed Impressions: Service Date/Time: Friday, November 17, 2017 19:04 - CONCLUSION: The proximal tip of the double-J stent is either in the expected region of the right renal pelvis or proximal ureter. Allen Mensah MD Chest X-Ray 11/16/17 0000 Signed Impressions: Service Date/Time: Thursday, November 16, 2017 12:43 - CONCLUSION: 1. Right IJ central line tip near the atriocaval junction. 2. No gross pneumothorax or significant interval change. Riccardo Stack MD Abdomen/Pelvis CT 11/16/17 0000 Signed Impressions: Service Date/Time: Thursday, November 16, 2017 08:54 - CONCLUSION: 1. Moderate hydronephrosis right kidney and hydroureter. There is dense material layering within the right renal pelvis and distal ureter of uncertain etiology but could be hemorrhage. Urinalysis and clinical correlation. 2. Hyperdense left renal lesion likely complex cyst. 3. Scattered diverticulosis of the colon. 4. Left basilar consolidation. 5. Left-sided ventral wall hernia. El Nuñez MD Chest CT 11/15/17 1255 Signed Impressions: Service Date/Time: November 14:24 - CONCLUSION: 1. New consolidative infiltrate in the posterior right upper lobe most characteristic of pneumonia. 2. Consolidation also noted in the left lower lobe which is increased from the prior CT. 3. New abnormal streaky density in the posterior upper abdomen located posterior to the liver. This is nonspecific but could represent infection or inflammatory change. 4. Cardiomegaly. Chintan Marshall MD Head CT 11/15/17 1134 Signed Impressions: Service Date/Time: November 14:13 - CONCLUSION: 1. No acute hemorrhage or mass effect. 2. Atrophy and chronic small vessel ischemic change 3. Air-fluid levels in the maxillary sinuses most characteristic of acute sinusitis. Chintan Marshall MD Physical Exam GENERAL: Morbidly obese patient, intubated. NAD. Opens eyes when stimulated. Not following SKIN: Ecchymoses noted. Left thigh large 15x10 cm approx area of erythema, abrasion of skin noted, looks better Skin folds in groin and breast with erythema and fungal overgrowth, improving HEAD: Atraumatic. Normocephalic. No temporal or scalp tenderness. EYES: Pupils equal round and reactive. No icterus, pale conjunctiva. Large neck. ENT: Intubated. No nasal drainage Prior trach site ok. NECK: Trachea midline. Supple, nontender, no meningeal signs. CARDIOVASCULAR: HS audible and distant. RESPIRATORY: Clear to auscultation anteriorly. Distant breath sounds. GASTROINTESTINAL: Abdomen obese, grimacing during palpation, no guarding, has midline ventral hernia. Pannus noted. MUSCULOSKELETAL: Pedal edema noted. No cyanosis NEUROLOGICAL: Open eyes when stimulated, not following Psych could not be assessed IV line sites with no e.o infection. : Solitario in place color looks better Assessment & Plan Remarks IMPRESSION PSAE sepsis, with Septic shock with multiorgan dysfunction syndrome due to complicated UTI - has R pyonephrosis, S/P cysto and stent placement - still on pressors but decreasing dose, WBC lower, temps better, creatinine decreasing Pneumonia, C/S MRSA 1. Aspiration pneumonia highly likely given multiple episodes of vomiting prior to admission in the long-term 2. Possible post influenza necrotizing pneumonia. 3. Health care pneumonia. Acute respiratory failure on vent Acute renal failure with anuria, due to sepsis and shock. Morbid obesity BMI 58.7 KG per meter squared Nausea vomiting prior to admission Elevated lactic acid secondary to sepsis Recommendations: Continue Zerbaxa IV (ASP: GNR bacteremia, Prior h/o PSAE in sputum high risk for MDRO, pending cultures) - follow BC and adjust if not MDR Continue Zyvox IV (MRSA pneumonia in a ARF patient with oliguria, additional exotoxin neutralization effect for Staph, MRSA and Strep pneumonia) Follow cultures Follow clinically. D/W Amy Crenshaw MD Nov 19, 2017 10:25
[2017-11-19] MEDS: cefTAZidime INJ 2,000 MG in SODIUM CHLORIDE 0.9% INJ 100 ML IV SCH (15:05)
[2017-11-19] MEDS: NOREPINEPHRINE INJ 16 MG in DEXTROSE 5% IN WATER INJ 234 ML IV PRN ×2 (20:00)
[2017-11-19] MEDS: FUROSEMIDE 40 MG/4 ML VIAL IV PUSH SCH (20:47)
[2017-11-20] VITALS (59 sets, daily range): BP systolic 81–195; BP diastolic 47–104; PULSE 79–123; RESP 15–20; TEMP 98.1–99; O2SAT 93–100
[2017-11-20] MEDS: cefTAZidime INJ 2,000 MG in SODIUM CHLORIDE 0.9% INJ 100 ML IV SCH ×2 (03:00→15:01)
[2017-11-20] MEDS: CHLORHEXIDINE GLUCONATE 2 % 1 PACK (2 CLOTHS) TOP SCH ×2 (03:12→23:42)
[2017-11-20] MEDS: INSULIN NovoLIN REGULAR SUPPLEMENTAL SCALE SQ SCH ×4 (05:05→17:43)
[2017-11-20] MEDS: FUROSEMIDE 40 MG/4 ML VIAL IV PUSH SCH ×3 (05:05→21:16)
[2017-11-20 05:23] LABS: COMPLEMENT C3 83 MG/DL (90-180)
[2017-11-20 05:24] LABS: COMPLEMENT C4 21 MG/DL (10-40)
[2017-11-20 05:27] LABS: AUTOMATED NEUTROPHIL # 23.8 TH/MM3 (1.8-7.7); BASOPHIL # 0.1 TH/MM3 (0-0.2); BASOPHIL % 0.4 % (0.0-2.0); HEMATOCRIT 33.7 % (35.0-46.0); HEMOGLOBIN 10.9 GM/DL (11.6-15.3); LYMPH % 2.8 % (9.0-44.0); LYMPHOCYTE # 0.7 TH/MM3 (1.0-4.8); MEAN CELL VOLUME 85.1 FL (80.0-100.0); MEAN CORPUSCULAR HEMOGLOBIN 27.5 PG (27.0-34.0); MEAN CORPUSCULAR HGB CONC 32.3 % (32.0-36.0); MEAN PLATELET VOLUME 8.3 FL (7.0-11.0); MONO % 5.4 % (0.0-8.0); MONOCYTE # 1.4 TH/MM3 (0-0.9); NEUT % 91.4 % (16.0-70.0); PLATELET COUNT 236 TH/MM3 (150-450); RED BLOOD COUNT 3.97 MIL/MM3 (4.00-5.30); RED CELL DISTRIBUTION WIDTH 21.1 % (11.6-17.2)
[2017-11-20 05:31] LABS: BICARBONATE 21.9 MEQ/L (21.0-32.0); CALCIUM 6.7 MG/DL (8.5-10.1); CALCIUM-PROTEIN CORRECTED 7.6 MG/DL (8.5-10.1); CREATININE 2.91 MG/DL (0.50-1.00); TOTAL BILIRUBIN ADULT 0.3 MG/DL (0.2-1.0); TOTAL PROTEIN 5.3 GM/DL (6.4-8.2)
[2017-11-20] MEDS: LINEZOLID 600 MG PREMIX 300 ML IV SCH ×2 (05:50→17:43)
[2017-11-20] MEDS: HEPARIN SODIUM - SQ 10,000 UNITS/ML VIAL SQ SCH ×3 (05:53→22:20)
[2017-11-20] MEDS: NOREPINEPHRINE INJ 16 MG in DEXTROSE 5% IN WATER INJ 234 ML IV PRN ×2 (06:15)
[2017-11-20 06:52] LABS: BANDS 6 % (0-6); LYMPHOCYTES 8 % (9-44); MONOCYTES 5 % (0-8); MYELOCYTES 1 % (0-0); NEUTROPHIL # MANUAL DIFF 22.6 TH/MM3 (1.8-7.7); POLYS (SEG NEUTROPHILS) 80 % (16-70)
--- NOTE | 2017-11-20 07:20 | HHI.CCPN ---
Subjective Remarks/Hospital Course Hospital Course: 67yF with super morbid obesity who has had multiple prior admissions for MRSA pneumonia and respiratory failure presents by EMS for recurrent respiratory failure. She resides in a SNF. She was found unresponsive this morning. She was intubated in the field. In the emergency department she was hypotensive despite ivf resuscitation and required norepinephrine for vasopressor support. she has a wbc 52k, lactate of 6.9, Cr 2.87 (baseline 0.5, prior admission discharge was 1.8). u/a concerning for probable UTI as well. Subjective: 2/: remained unstable throughout the night overnight. on 3 vasopressors. this morning, no better, wbc higher. decision by Dr. Cartagena and myself to emergently CT abd/pelvis to rule out source control, despite ongoing hemodynamic instability. CT abd/pelvis demonstrated right hydronephrosis with likely obstructive pyelonephritis. discussed with urology and interventional radiology : likely to decompensate during procedure. unable to physically prone patient. difficult technically with high risk to do supine lateral CT guided perc nephrostomy tube. urology to take to the OR for cysto with stenting. Prior to leaving for OR, patient's central line was pulled accidentally. patient had no other iv access. I/O needles unavailable. emergently replaced central line in right IJ (see separate procedure note for details). due to ongoing shock, patient's blood pressure in 40s systolic during this time. restarted vasopressors after central access regained. went to OR. cultures growing pseudomonas. 2: minimal improvements. taken to OR yesterday for cysto. minimal uop overnight. off epinephrine but remains on 2 vasopressors, in shock. wbc downtrending but > 50k. 11/18: vasopressor requirements are improving slightly. remains on 2 vasopressors and in shock. blood and urine growing pseudomonas, sputum growing MRSA (history of MRSA pneumonia). wbc downtrending, but remains very high. uop marginal. 11/19 Patient remains sedated and intubated. On Levophed 2 mics, Vasopressin 0.04 mics. WBC is trending down. 11/20 Patient remains intubated and on Precedex for sedation. Remains on Vasopressin and Levophed 8 mics. Afebrile. Objective Vital Signs Date Time Temp Pulse Resp B/P (MAP) Pulse Ox O2 Delivery O2 Flow Rate FiO2 11/20/17 06:15 111 11/20/17 04:15 96 40 11/20/17 04:00 98.8 17 89/54 (66) Intake and Output 11/20/17 11/20/17 11/21/17 08:00 16:00 00:00 Intake Total 847 ml Output Total 300 ml Balance 547 ml Result Diagram: 11/20/17 0415 11/20/17 0415 Other Results Laboratory Tests Test 11/19/17 10:10 11/20/17 04:15 Lactic Acid Level 1.4 mmol/L White Blood Count 26.0 TH/MM3 Red Blood Count 3.97 MIL/MM3 Hemoglobin 10.9 GM/DL Hematocrit 33.7 % Mean Corpuscular Volume 85.1 FL Mean Corpuscular Hemoglobin 27.5 PG Mean Corpuscular Hemoglobin Concent 32.3 % Red Cell Distribution Width 21.1 % Platelet Count 236 TH/MM3 Mean Platelet Volume 8.3 FL Neutrophils (%) (Auto) 91.4 % Lymphocytes (%) (Auto) 2.8 % Monocytes (%) (Auto) 5.4 % Eosinophils (%) (Auto) 0.0 % Basophils (%) (Auto) 0.4 % Neutrophils # (Auto) 23.8 TH/MM3 Lymphocytes # (Auto) 0.7 TH/MM3 Monocytes # (Auto) 1.4 TH/MM3 Eosinophils # (Auto) 0.0 TH/MM3 Basophils # (Auto) 0.1 TH/MM3 CBC Comment AUTO DIFF Differential Total Cells Counted 100 Neutrophils % (Manual) 80 % Band Neutrophils % 6 % Lymphocytes % 8 % Monocytes % 5 % Neutrophils # (Manual) 22.6 TH/MM3 Myelocytes 1 % Differential Comment FINAL DIFF MANUAL Platelet Estimate NORMAL Platelet Morphology Comment NORMAL Blood Urea Nitrogen 42 MG/DL Creatinine 2.91 MG/DL Random Glucose 192 MG/DL Total Protein 5.3 GM/DL Albumin 2.0 GM/DL Calcium Level 6.7 MG/DL Alkaline Phosphatase 137 U/L Aspartate Amino Transf (AST/SGOT) 8 U/L Alanine Aminotransferase (ALT/SGPT) 7 U/L Total Bilirubin 0.3 MG/DL Sodium Level 137 MEQ/L Potassium Level 3.8 MEQ/L Chloride Level 103 MEQ/L Carbon Dioxide Level 21.9 MEQ/L Anion Gap 12 MEQ/L Estimat Glomerular Filtration Rate 16 ML/MIN Protein Corrected Calcium 7.6 MG/DL Complement C3 83 MG/DL Complement C4 21 MG/DL Imaging Last Impressions Abdomen X-Ray 11/17/17 0000 Signed Impressions: Service Date/Time: Friday, November 17, 2017 19:04 - CONCLUSION: The proximal tip of the double-J stent is either in the expected region of the right renal pelvis or proximal ureter. Allen Mensah MD Chest X-Ray 11/16/17 0000 Signed Impressions: Service Date/Time: Thursday, November 16, 2017 12:43 - CONCLUSION: 1. Right IJ central line tip near the atriocaval junction. 2. No gross pneumothorax or significant interval change. Riccardo Stack MD Abdomen/Pelvis CT 11/16/17 0000 Signed Impressions: Service Date/Time: Thursday, November 16, 2017 08:54 - CONCLUSION: 1. Moderate hydronephrosis right kidney and hydroureter. There is dense material layering within the right renal pelvis and distal ureter of uncertain etiology but could be hemorrhage. Urinalysis and clinical correlation. 2. Hyperdense left renal lesion likely complex cyst. 3. Scattered diverticulosis of the colon. 4. Left basilar consolidation. 5. Left-sided ventral wall hernia. El Nuñez MD Chest CT 11/15/17 1255 Signed Impressions: Service Date/Time: November 14:24 - CONCLUSION: 1. New consolidative infiltrate in the posterior right upper lobe most characteristic of pneumonia. 2. Consolidation also noted in the left lower lobe which is increased from the prior CT. 3. New abnormal streaky density in the posterior upper abdomen located posterior to the liver. This is nonspecific but could represent infection or inflammatory change. 4. Cardiomegaly. Chintan Marshall MD Head CT 11/15/17 1134 Signed Impressions: Service Date/Time: November 14:13 - CONCLUSION: 1. No acute hemorrhage or mass effect. 2. Atrophy and chronic small vessel ischemic change 3. Air-fluid levels in the maxillary sinuses most characteristic of acute sinusitis. Chintan Marshall MD Objective Remarks GENERAL: Patient is 67 yo intubated and sedated SKIN: Warm and dry. HEAD: Normocephalic. EYES: No scleral icterus. No injection or drainage. NECK: Supple, trachea midline. No JVD or lymphadenopathy. CARDIOVASCULAR: Regular rate and rhythm without murmurs, gallops, or rubs. RESPIRATORY: Breath sounds equal bilaterally. No accessory muscle use. GASTROINTESTINAL: Abdomen soft, non-tender, nondistended. MUSCULOSKELETAL: No cyanosis, + edema. Neuro: Intubated A/P Assessment and Plan Assessment: This is a 67yF with super morbid obesity and a chronic debilitated course which has included multiple prior respiratory failures requiring mechanical ventilation, including a recent intubation a year ago requiring tracheostomy and LTAC admission who presents with septic shock, multiorgan failure. Remains in shock. Pyelonephritis as source. very poor prognosis. prealbumin of 3 suggestive of long-standing severe protein calorie malnutrition. shock and renal failure persist, despite now with source control. will continue aggressive measures per family request. remains critically ill. Neuro: Metabolic Encephalopathy - - frequent neuro checks - On Precedex for sedation. Daily sedation vacation. Resp: Acute hypoxic and hypercarbic respiratory failure Healthcare Associated Pneumonia - Continue with vent support keep sat >92% Bronchodilators, ICU vent bundle. SBT daily as loc Check CXR and ABG - sputum culture: MRSA CV: Septic Shock - Atrial fibrillation with rapid ventricular response - resolved. now in NSR. Wean off pressors ( on Levophed 8 mics, Vasopressin 0.04 mics) keep MAP>65mmHg lactic acid level: 1.4 Hydrocortisone 50mg Q12 Renal: Acute Kidney Injury Acute pyelonephritis Monitor renal function, I/O's, avoid nephrotoxins Cr:2.91 continue Lasix 40mg IV Q8 - s/p Emergent cysto with stent 2/2, Urology is following Renal is following- Dr. Lopez FEN/GI: Super Morbid Obesity Lactic Acidosis Anion-gap Metabolic acidosis Acute intravascular volume overload Severe acute protein calorie malnutrition -On tube feeds- Nepro with goal rate 40ml/hr -Pepcid for GI prophylaxis Heme/ID: History of prior MRSA pneumonia Acute pyelonephritis Pseudomonas bacteremia - ID on board. - abx per Mitzi. On Zyvox and Zerbaxa. Monitor for signs of infections ( Fever , WBC) - 2/3 Urine cx :GNR - 2/1 blood cultures: pseudomonas - 2/1 urine culture: pseudomonas - 2/1 sputum culture: MRSA Endocrine: Hyperglycemia of Critical Illness - q6h SSI, med scale Prophylaxis: SCDs, SQH Pepcid Lines: - 2/2 right IJ triple lumen catheter - Solitario Dispo: remain in ICU. critically ill. This patient remains critically ill with one or more organ systems which are or may become a threat to life. CCT 30 mins Juma Pak MD Nov 20, 2017 07:20
--- NOTE | 2017-11-20 07:54 | RADRPT ---
EXAM DATE/TIME: 11/20/2017 07:29 [place] COMPARISON: CT THORAX W/O CONTRAST, November 15, 2017, 14:24. CHEST SINGLE AP, November 16, 2017, 12:43. INDICATIONS : Shortness of breath. MEDICAL HISTORY : Hypertension. Diabetes mellitus type II. SURGICAL HISTORY : None. ENCOUNTER: Subsequent ACUITY: 3 days PAIN SCORE: Non-responsive. LOCATION: Bilateral chest FINDINGS: Bilateral airspace disease with areas of subsegmental and segmental consolidation remain evident in t he left base and right upper lobe. Small right effusion is noted. The right central venous catheter h as been adjusted and pulled back. Endotracheal and nasogastric tubes remain in stable position. CONCLUSION: 1. Supportive devices are in appropriate position. 2. Persistent bilateral airspace disease without significant change since 11/16 Anthony Daugherty MD on November 20, 2017 at 7:49 Board Certified Radiologist. This report was verified electronically.
[2017-11-20] MEDS: CHLORHEXIDINE 0.12% (ORAL KIT) 15 ML CUP MT SCH ×4 (08:00→20:00)
--- NOTE | 2017-11-20 08:21 | HHI.IDPN ---
Subjective Subjective Remarks is a 67 y/o CF morbidly obese with BMI 58.7 kg/m2 who has had multiple prior admissions for MRSA pneumonia and respiratory failure presents by EMS for recurrent respiratory failure. She resides in a SNF. She was found unresponsive this morning. She was intubated in the field. She has a wbc 52k, lactate of 6.9, Cr 2.87 (baseline 0.5, prior admission discharge was 1.8). u/a concerning for probable UTI as well. In the emergency department patient received 3 IV fluid boluses and continued to be hypotensive needing vasopressor support. Upon review of records it appears she was recently treated in Oct 15 for UTI at [facility] with macrobid. EMAR from [facility] with no antibiotics but was on lactobacillus. Spoke to CHILO Moura at [facility] patient has 2-3 episodes of vomiting yesterday at [facility] and received antiemetics. T:98, BP: 110/62, 96% RA, BS: 108. Patient was not on any antibiotics. No diarrhea. Lasix increased due to pedal edema. No cultures drawn. No flu test done per records. She has a prior h/o admission at [facility] admitted in late 2016 when she was in the ICU intubated needing a trach eventually. During that admission patient was treated for MRSA pneumonia but also she has a history of pseudomonas infections in the past. Pseudomonas in the past with pansensitive cultures but given her multiple hospitalization and multiple courses of antibiotics she stands at this for multidrug-resistant Pseudomonas. At the time of my evaluation patient is in the IMC appears very critically ill intubated. Patient is on vasopressin 0.04, we will fed 40 mics, epinephrine 10/9, amiodarone drip at 1 g. Patient has 0 urine output at the present time. She has small white secretions. She has no diarrhea. Abdomen appears benign. No response to verbal or other stimuli for me but RN reports when daughter was here earlier she opened eyes, moved limbs and squeezed RNs fingers. Currently sedation is off but patient in ARF with no urine output. Infectious disease consultation was requested for evaluation and management of septic shock, pneumonia. Notes reviewed D/W RN Patient remains intubated and on Precedex for sedation. Remains on Vasopressin and Levophed 8 mics. Afebrile. Opens eyes spontaneously. Responds to verbal commands. Winces to pain. FiO2 at 40% Secretions not much, pale white. Solitario in place. S/P urologic procedure 11/16/17 No fevers No rash No diarrhea Antibiotics Current Medications Zerbaxa IV Zyvox Current Medications Medications (Trade) Dose Ordered Sig/Mirta Route Start Time Stop Time Status Last Admin (Brethine Inj) 1 mg UNSCH PRN SQ 11/15/17 12:45 (Peridex 0.12% Liq) 15 ml BID@08,20 MT 11/15/17 20:00 11/18/17 08:28 (D50w (Vial) Inj) 25 ml UNSCH PRN IV PUSH 11/15/17 14:00 (NovoLIN R SUPPLEMENTAL SCALE) 1 Q6HR SQ 11/15/17 18:00 11/19/17 06:53 (Duoneb Neb) 1 ampule Q6HR NEB INH 11/15/17 16:00 11/19/17 08:04 (Duoneb Neb) 1 ampule Q2HR NEB PRN INH 11/15/17 14:00 11/17/17 23:39 (Tylenol) 650 mg Q6H PRN PO 11/15/17 14:00 (Pepcid Inj) 10 mg Q12HR IV PUSH 11/15/17 21:00 11/19/17 09:53 (Zofran Inj) 4 mg Q6H PRN IV PUSH 11/15/17 14:00 (Heparin Inj) 5,000 units Q8H SQ 11/15/17 15:00 11/19/17 06:53 Miscellaneous Information 1 Q361D XX 11/15/17 14:00 11/15/17 19:00 (Chlorhexidine 2% Cloth) 3 pack Taper DAILY@04 TOP 11/16/17 04:00 11/12/18 03:59 11/18/17 00:56 (Chlorhexidine 2% Cloth) 3 pack UNSCH PRN TOP 11/15/17 14:00 (Zelda-Colace) 1 tab BID PO 11/15/17 21:00 11/19/17 09:52 (Milk Of Magnesia Liq) 30 ml Q12H PRN PO 11/15/17 14:00 (Senokot) 17.2 mg Q12H PRN PO 11/15/17 14:00 (Dulcolax Supp) 10 mg DAILY PRN RECTAL 11/15/17 14:00 (Lactulose Liq) 30 ml DAILY PRN PO 11/15/17 14:00 Vasopressin 40 units/Dextrose 100 ml @ 6 mls/hr [id number] IV 11/15/17 14:12 11/19/17 06:54 Ceftolozane/ Tazobactam 375 mg/ Sodium Chloride 100 ml @ 100 mls/hr Q8H IV 11/15/17 17:30 11/19/17 00:15 Norepinephrine Bitartrate 16 mg/ Dextrose 250 ml @ 1.87 mls/hr TITRATE PRN IV 11/15/17 22:45 11/18/17 03:07 Linezolid 300 ml @ 300 mls/hr Q12H IV 11/16/17 07:00 11/19/17 06:53 Cefazolin Sodium 3000 mg/Sodium Chloride 130 ml @ 200 mls/hr [employer] IV 11/16/17 15:45 11/19/17 15:44 (Peridex 0.12% Liq) 15 ml BID@08,20 MT 11/16/17 20:00 11/19/17 09:54 Amiodarone HCl 200 mg/Dextrose 101 ml @ 202 mls/hr Q12H IV 11/18/17 12:00 11/19/17 00:14 (SoluCORTEF INJ) 50 mg Q12HR IV PUSH 11/19/17 09:00 Dexmedetomidine HCl 1000 mcg/ Sodium Chloride 250 ml @ 9.07 mls/hr TITRATE PRN IV 11/19/17 08:15 Lines RIJ TLC Past Medical History Past Medical History Chronic asthma home oxygen Atrial fibrillation Hyperlipidemia Hypertension excellent diabetes mellitus GERD Morbid obesity BMI 55 Past Surgical History Appendectomy Hernia surgery Tracheostomy placement Allergies: Coded Allergies: penicillin G (Unverified Allergy, Severe, 05/29/17) Objective . Vital Signs Date Time Temp Pulse Resp B/P (MAP) Pulse Ox O2 Delivery O2 Flow Rate FiO2 11/20/17 06:15 111 11/20/17 04:15 96 40 11/20/17 04:00 98.8 119 17 89/54 (66) 94 11/20/17 04:00 40 11/20/17 01:08 94 40 11/20/17 00:00 40 11/20/17 00:00 99.0 105 19 96/55 (69) 93 Arterial Line 2/5/18 22:03 96 40 2/5/18 20:00 40 2/5/18 20:00 79 88/45 2/5/18 20:00 98.6 79 16 88/45 (59) 95 Arterial Line 2/5/18 19:30 97 40 2/5/18 18:26 80 102/49 2/5/18 17:46 76 15 114/57 (76) 96 2/5/18 17:31 78 15 108/44 (65) 98 2/5/18 17:15 78 15 98/49 (65) 97 2/5/18 17:01 77 15 98/46 (63) 98 2/5/18 16:46 78 15 103/45 (64) 98 2/5/18 16:31 74 15 101/44 (63) 98 2/5/18 16:01 72 15 99/44 (62) 98 2/5/18 16:00 40 2//18 15:48 100 40 2/5/18 15:46 99.3 74 18 108/59 (75) 96 2/5/18 15:34 73 15 81/52 (62) 97 2/5/18 15:31 72 16 82/36 (51) 98 2/5/18 15:30 71 16 97 2/5/18 15:16 70 15 93/42 (59) 97 2/5/18 15:01 74 15 105/51 (69) 96 2/5/18 14:46 74 15 105/50 (68) 97 2/5/18 14:31 73 15 99/47 (64) 97 2/5/18 14:30 74 15 95 2/5/18 14:16 73 15 101/49 (66) 97 2/5/18 14:01 75 15 98/49 (65) 97 2/5/18 13:46 73 15 99/52 (68) 97 2/5/18 13:31 74 15 99/49 (66) 97 2/5/18 13:30 75 15 96 2/5/18 13:16 77 16 91/41 (58) 98 2/5/18 13:01 73 15 99/43 (61) 97 2/5/18 12:46 79 17 97/42 (60) 97 2/5/18 12:31 76 15 97/46 (63) 98 11/19/17 12:30 77 15 96 11/19/17 12:00 98.9 76 15 96 11/19/17 12:00 40 11/19/17 12:00 70 105/51 11/19/17 11:45 77 15 102/53 (69) 96 11/19/17 11:30 76 15 106/53 (70) 95 11/19/17 11:15 75 15 104/51 (68) 95 11/19/17 11:09 96 40 11/19/17 11:00 76 15 106/52 (70) 96 11/19/17 10:46 75 16 95/46 (62) 96 11/19/17 10:31 77 15 106/50 (68) 96 11/19/17 10:15 78 16 93/54 (67) 94 11/19/17 10:00 77 15 101/51 (68) 95 11/19/17 09:45 76 15 96/50 (65) 95 11/19/17 09:30 76 15 102/50 (67) 94 11/19/17 09:16 81 15 105/49 (67) 95 11/19/17 09:01 81 15 102/49 (66) 96 11/19/17 08:45 78 15 92/58 (69) 94 11/19/17 08:31 76 16 98/52 (67) 96 . Laboratory Tests Test 11/19/17 04:50 11/20/17 04:15 White Blood Count 15.3 TH/MM3 26.0 TH/MM3 Red Blood Count 3.76 MIL/MM3 3.97 MIL/MM3 Hemoglobin 10.4 GM/DL 10.9 GM/DL Hematocrit 32.2 % 33.7 % Mean Corpuscular Volume 85.5 FL 85.1 FL Mean Corpuscular Hemoglobin 27.6 PG 27.5 PG Mean Corpuscular Hemoglobin Concent 32.2 % 32.3 % Red Cell Distribution Width 21.6 % 21.1 % Platelet Count 171 TH/MM3 236 TH/MM3 Mean Platelet Volume 8.2 FL 8.3 FL Neutrophils (%) (Auto) 91.4 % Lymphocytes (%) (Auto) 2.8 % Monocytes (%) (Auto) 5.4 % Eosinophils (%) (Auto) 0.0 % Basophils (%) (Auto) 0.4 % Neutrophils # (Auto) 23.8 TH/MM3 Lymphocytes # (Auto) 0.7 TH/MM3 Monocytes # (Auto) 1.4 TH/MM3 Eosinophils # (Auto) 0.0 TH/MM3 Basophils # (Auto) 0.1 TH/MM3 CBC Comment AUTO DIFF Differential Total Cells Counted 100 Neutrophils % (Manual) 80 % Band Neutrophils % 6 % Lymphocytes % 8 % Monocytes % 5 % Neutrophils # (Manual) 22.6 TH/MM3 Myelocytes 1 % Differential Comment FINAL DIFF MANUAL Platelet Estimate NORMAL Platelet Morphology Comment NORMAL Laboratory Tests Test 11/19/17 04:50 11/19/17 10:10 11/20/17 04:15 Blood Urea Nitrogen 40 MG/DL 42 MG/DL Creatinine 2.94 MG/DL 2.91 MG/DL Random Glucose 211 MG/DL 192 MG/DL Total Protein 5.1 GM/DL 5.3 GM/DL Calcium Level 6.6 MG/DL 6.7 MG/DL Sodium Level 136 MEQ/L 137 MEQ/L Potassium Level 4.2 MEQ/L 3.8 MEQ/L Chloride Level 103 MEQ/L 103 MEQ/L Carbon Dioxide Level 22.7 MEQ/L 21.9 MEQ/L Anion Gap 10 MEQ/L 12 MEQ/L Estimat Glomerular Filtration Rate 16 ML/MIN 16 ML/MIN Protein Corrected Calcium 7.6 MG/DL 7.6 MG/DL Lactic Acid Level 1.4 mmol/L Albumin 2.0 GM/DL Alkaline Phosphatase 137 U/L Aspartate Amino Transf (AST/SGOT) 8 U/L Alanine Aminotransferase (ALT/SGPT) 7 U/L Total Bilirubin 0.3 MG/DL Microbiology Date/Time Source Procedure Growth Status 11/17/17 15:03 Blood Peripheral Aerobic Blood Culture - Preliminary NO GROWTH IN 2 DAYS Resulted 11/17/17 15:03 Blood Peripheral Anaerobic Blood Culture - Preliminary NO GROWTH IN 2 DAYS Resulted 11/17/17 11:04 Blood Peripheral Aerobic Blood Culture - Preliminary NO GROWTH IN 2 DAYS Resulted 11/17/17 11:04 Blood Peripheral Anaerobic Blood Culture - Preliminary NO GROWTH IN 2 DAYS Resulted 11/17/17 09:35 Urine Catheterized Urine Urine Culture - Preliminary Gram Negative Ambrosio Resulted Imaging Last Impressions Abdomen X-Ray 11/17/17 0000 Signed Impressions: Service Date/Time: Friday, November 17, 2017 19:04 - CONCLUSION: The proximal tip of the double-J stent is either in the expected region of the right renal pelvis or proximal ureter. Allen Mensah MD Chest X-Ray 11/16/17 0000 Signed Impressions: Service Date/Time: Thursday, November 16, 2017 12:43 - CONCLUSION: 1. Right IJ central line tip near the atriocaval junction. 2. No gross pneumothorax or significant interval change. Riccardo Stack MD Abdomen/Pelvis CT 11/16/17 0000 Signed Impressions: Service Date/Time: Thursday, November 16, 2017 08:54 - CONCLUSION: 1. Moderate hydronephrosis right kidney and hydroureter. There is dense material layering within the right renal pelvis and distal ureter of uncertain etiology but could be hemorrhage. Urinalysis and clinical correlation. 2. Hyperdense left renal lesion likely complex cyst. 3. Scattered diverticulosis of the colon. 4. Left basilar consolidation. 5. Left-sided ventral wall hernia. El Nuñez MD Chest CT 11/15/17 1255 Signed Impressions: Service Date/Time: November 14:24 - CONCLUSION: 1. New consolidative infiltrate in the posterior right upper lobe most characteristic of pneumonia. 2. Consolidation also noted in the left lower lobe which is increased from the prior CT. 3. New abnormal streaky density in the posterior upper abdomen located posterior to the liver. This is nonspecific but could represent infection or inflammatory change. 4. Cardiomegaly. Chintan Marshall MD Head CT 11/15/17 1134 Signed Impressions: Service Date/Time: November 14:13 - CONCLUSION: 1. No acute hemorrhage or mass effect. 2. Atrophy and chronic small vessel ischemic change 3. Air-fluid levels in the maxillary sinuses most characteristic of acute sinusitis. Chintan Marshall MD Physical Exam GENERAL: Morbidly obese patient, intubated. NAD. Opens eyes when stimulated. Not following SKIN: Ecchymoses noted. Left thigh large 15x10 cm approx area of erythema, abrasion of skin noted, looks better Skin folds in groin and breast with erythema and fungal overgrowth, improving HEAD: Atraumatic. Normocephalic. No temporal or scalp tenderness. EYES: Pupils equal round and reactive. No icterus, pale conjunctiva. Large neck. ENT: Intubated. No nasal drainage Prior trach site ok. NECK: Trachea midline. Supple, nontender, no meningeal signs. CARDIOVASCULAR: HS audible and distant. RESPIRATORY: Clear to auscultation anteriorly. Distant breath sounds. GASTROINTESTINAL: Abdomen obese, grimacing during palpation, no guarding, has midline ventral hernia. Pannus noted. MUSCULOSKELETAL: Pedal edema noted. No cyanosis NEUROLOGICAL: Open eyes when stimulated, not following Psych could not be assessed IV line sites with no e.o infection. : Solitario in place color looks better Assessment & Plan Remarks IMPRESSION PSAE sepsis, with Septic shock with multiorgan dysfunction syndrome due to complicated UTI - has R pyonephrosis, S/P cysto and stent placement - still on pressors but decreasing dose, WBC lower, temps better, creatinine decreasing Pneumonia, C/S MRSA 1. Aspiration pneumonia highly likely given multiple episodes of vomiting prior to admission in the care home 2. Possible post influenza necrotizing pneumonia. 3. Health care pneumonia. Acute respiratory failure on vent Acute renal failure with anuria, due to sepsis and shock. Morbid obesity BMI 58.7 KG per meter squared Nausea vomiting prior to admission Elevated lactic acid secondary to sepsis Recommendations: Continue Ceftazidime IV Continue Zyvox IV (MRSA pneumonia in a ARF patient with oliguria, additional exotoxin neutralization effect for Staph, MRSA and Strep pneumonia) If diarrhea send stool for Cdiff. RN reports when BP cuff changed to normal size her BP is better. Follow cultures Follow clinically. D/W Amy Crenshaw MD Nov 20, 2017 08:21
[2017-11-20] MEDS ORDERED: FUROSEMIDE 40 MG/4 ML VIAL IV PUSH SCH (09:00)
[2017-11-20] MEDS: DOCUSATE SODIUM 50 MG/SENNA 8.6 MG TAB PO SCH ×2 (10:27→21:16)
[2017-11-20] MEDS: FAMOTIDINE 20 MG/2 ML VIAL IV PUSH SCH ×2 (10:28→21:15)
[2017-11-20] MEDS: VASOPRESSIN INJ 40 UNITS in DEXTROSE 5% IN WATER 100ML INJ 98 ML IV SCH ×4 (10:28→21:16)
[2017-11-20] MEDS: HYDROCORTISONE SOD SUCCINATE 100 MG VIAL IV PUSH SCH ×2 (10:28→21:15)
--- NOTE | 2017-11-20 10:53 | HHI.NPPN ---
Subjective General Problems: Edema Renal Failure: Acute Interval History She remains intubated, unresponsive. On multiple pressors. Fluid overload/ anasarca is present. Renal function is stable. (Suad Lucas) Review of Systems General General Remarks unable to obtain (Suad Lucas) Objective Data Data Vital Signs Date Time Temp Pulse Resp B/P (MAP) Pulse Ox O2 Delivery O2 Flow Rate FiO2 11/20/17 10:28 107 134/76 11/20/17 08:35 97 40 11/20/17 06:15 111 11/20/17 04:15 96 40 11/20/17 04:00 98.8 119 17 89/54 (66) 94 11/20/17 04:00 40 11/20/17 01:08 94 40 11/20/17 00:00 40 11/20/17 00:00 99.0 105 19 96/55 (69) 93 Arterial Line 11/19/17 22:03 96 40 11/19/17 20:00 40 11/19/17 20:00 79 88/45 11/19/17 20:00 98.6 79 16 88/45 (59) 95 Arterial Line 11/19/17 19:30 97 40 11/19/17 18:26 80 102/49 11/19/17 17:46 76 15 114/57 (76) 96 11/19/17 17:31 78 15 108/44 (65) 98 11/19/17 17:15 78 15 98/49 (65) 97 11/19/17 17:01 77 15 98/46 (63) 98 11/19/17 16:46 78 15 103/45 (64) 98 18 16:31 74 15 101/44 (63) 98 11/19/17 16:01 72 15 99/44 (62) 98 11/19/17 16:00 40 11/19/17 15:48 100 40 11/19/17 15:46 99.3 74 18 108/59 (75) 96 11/19/17 15:34 73 15 81/52 (62) 97 11/19/17 15:31 72 16 82/36 (51) 98 11/19/17 15:30 71 16 97 18 15:16 70 15 93/42 (59) 97 11/19/17 15:01 74 15 105/51 (69) 96 18 14:46 74 15 105/50 (68) 97 11/19/17 14:31 73 15 99/47 (64) 97 11/19/17 14:30 74 15 95 /18 14:16 73 15 101/49 (66) 97 11/19/17 14:01 75 15 98/49 (65) 97 11/19/17 13:46 73 15 99/52 (68) 97 18 13:31 74 15 99/49 (66) 97 /03/01 13:30 75 15 96 11/19/17 13:16 77 16 91/41 (58) 98 11/19/17 13:01 73 15 99/43 (61) 97 11/19/17 12:46 79 17 97/42 (60) 97 11/19/17 12:31 76 15 97/46 (63) 98 11/19/17 12:30 77 15 96 11/19/17 12:00 98.9 76 15 96 11/19/17 12:00 40 11/19/17 12:00 70 105/51 11/19/17 11:45 77 15 102/53 (69) 96 11/19/17 11:30 76 15 106/53 (70) 95 11/19/17 11:15 75 15 104/51 (68) 95 11/19/17 11:09 96 40 11/19/17 11:00 76 15 106/52 (70) 96 11/19/17 10:46 75 16 95/46 (62) 96 (Suad Lucas) -: 11/20/17 0415 11/20/17 0415 Imaging Last 72 hours Impressions Chest X-Ray 11/20/17 0000 Signed Impressions: Service Date/Time: Monday, November 20, 2017 07:29 - CONCLUSION: 1. Supportive devices are in appropriate position. 2. Persistent bilateral airspace disease without significant change since 11/16 Anthony Daugherty MD Tubes & Lines: Solitario Tubes & Lines Comment TLC right IJ Drip Comment levophed, vasopressin (Suad Lucas) Physical Exam General Appearance: Comfortable, Obese Appearance Remarks unresponsive on vent (Suad Lucas) Pulmonary Resp Exam: Breath Sounds Equal, Crackles (Suad Lucas) Cardiology CV Exam: Regular, Normal Sinus Rhythm (Suad Lucas) Gastrointestinal/Abdomen GI Exam: Soft, Non-Tender GI Remarks morbidly obese (Suad Lucas) Musculoskeletal MS Exam: Joints Intact, Unable to Ambulate (Suad Lucas) Integumentary Skin Exam: Warm, Dry (Suad Lucas) Extremeties Extremities Exam: Pedal Pulses Palpable, Moderate Edema, Pitting Edema Extremeties Remarks anasarca (Suad Lucas) Neurologic Neuro Exam: Unresponsive, Sedated (Suad Lucas) Assessment/Plan Assessment Summary: FREDDY/Acute Renal Failure, Fluid/Volume Overload, Hypotension Problem List: (1) FREDDY (acute kidney injury) ICD Codes: N17.9 - Acute kidney failure, unspecified Plan: In January 2017 her renal function was normal. Had FREDDY in September, creatinine at discharge was 1.8 This admission she suffered obstructive uropathy, s/p R urethral stent placement on the 2nd Also noted to have urosepsis with renal hyperperfusion She has massive fluid overload, on Lasix 40 mg TID Consider Lasix gtt in next 24 hrs. Off IVF. Renal function is stable today, repeat labs tomorrow. Avoid nephrotoxic agents. Use pressors to maintain MAP 65 mmHg (2) Pneumonia ICD Codes: J18.9 - Pneumonia, unspecified organism Status: Acute Plan: ID following, on Ceftazidime and Zyvox. Suspected aspiration PNA from vomiting. (3) Septic shock ICD Codes: A41.9 - Sepsis, unspecified organism; R65.21 - Severe sepsis with septic shock (4) Respiratory failure ICD Codes: J96.90 - Respiratory failure, unspecified, unspecified whether with hypoxia or hypercapnia Plan: Vent management, on 40% FiO2 currently. (Suad Lucas) Plan patient was seen and examined. Seen in the ICU. Intubated, morbidly obese. Generalized edema is noted. Continue diuresis. Monitor renal function and urine output. (Mohinder Lopez MD) Suad Lucas Nov 20, 2017 10:53 Mohinder Lopez MD Nov 20, 2017 14:25
[2017-11-21] VITALS (22 sets, daily range): BP systolic 91–123; BP diastolic 55–66; PULSE 100–124; RESP 15–18; TEMP 98.3–98.9; O2SAT 96–100
[2017-11-21] MEDS: cefTAZidime INJ 2,000 MG in SODIUM CHLORIDE 0.9% INJ 100 ML IV SCH ×2 (03:32→18:00)
[2017-11-21] MEDS: LINEZOLID 600 MG PREMIX 300 ML IV SCH ×2 (04:57→19:37)
[2017-11-21] MEDS: INSULIN NovoLIN REGULAR SUPPLEMENTAL SCALE SQ SCH ×5 (04:57→23:30)
[2017-11-21] MEDS: HEPARIN SODIUM - SQ 10,000 UNITS/ML VIAL SQ SCH ×4 (04:57→23:30)
[2017-11-21] MEDS: FUROSEMIDE 40 MG/4 ML VIAL IV PUSH SCH (04:57)
[2017-11-21 05:19] LABS: AUTOMATED NEUTROPHIL # 18.9 TH/MM3 (1.8-7.7); BASOPHIL % 0.2 % (0.0-2.0); EOSINOPHIL % 0.1 % (0.0-4.0); HEMATOCRIT 31.6 % (35.0-46.0); HEMOGLOBIN 10.1 GM/DL (11.6-15.3); LYMPH % 5.1 % (9.0-44.0); LYMPHOCYTE # 1.1 TH/MM3 (1.0-4.8); MEAN CELL VOLUME 84.3 FL (80.0-100.0); MEAN CORPUSCULAR HEMOGLOBIN 27.1 PG (27.0-34.0); MEAN CORPUSCULAR HGB CONC 32.1 % (32.0-36.0); MEAN PLATELET VOLUME 8.1 FL (7.0-11.0); MONOCYTE # 0.8 TH/MM3 (0-0.9); NEUT % 90.6 % (16.0-70.0); PLATELET COUNT 181 TH/MM3 (150-450); RED BLOOD COUNT 3.74 MIL/MM3 (4.00-5.30); RED CELL DISTRIBUTION WIDTH 21.3 % (11.6-17.2); WHITE BLOOD COUNT 20.8 TH/MM3 (4.0-11.0)
[2017-11-21 05:41] LABS: CALCIUM 6.7 MG/DL (8.5-10.1); CREATININE 2.85 MG/DL (0.50-1.00)
[2017-11-21 05:55] LABS: CALCIUM-PROTEIN CORRECTED 7.8 MG/DL (8.5-10.1); TOTAL PROTEIN 4.9 GM/DL (6.4-8.2)
--- NOTE | 2017-11-21 07:27 | HHI.CCPN ---
Subjective Remarks/Hospital Course Hospital Course: 67yF with super morbid obesity who has had multiple prior admissions for MRSA pneumonia and respiratory failure presents by EMS for recurrent respiratory failure. She resides in a SNF. She was found unresponsive this morning. She was intubated in the field. In the emergency department she was hypotensive despite ivf resuscitation and required norepinephrine for vasopressor support. she has a wbc 52k, lactate of 6.9, Cr 2.87 (baseline 0.5, prior admission discharge was 1.8). u/a concerning for probable UTI as well. Subjective: 2/: remained unstable throughout the night overnight. on 3 vasopressors. this morning, no better, wbc higher. decision by Dr. Cartagena and myself to emergently CT abd/pelvis to rule out source control, despite ongoing hemodynamic instability. CT abd/pelvis demonstrated right hydronephrosis with likely obstructive pyelonephritis. discussed with urology and interventional radiology : likely to decompensate during procedure. unable to physically prone patient. difficult technically with high risk to do supine lateral CT guided perc nephrostomy tube. urology to take to the OR for cysto with stenting. Prior to leaving for OR, patient's central line was pulled accidentally. patient had no other iv access. I/O needles unavailable. emergently replaced central line in right IJ (see separate procedure note for details). due to ongoing shock, patient's blood pressure in 40s systolic during this time. restarted vasopressors after central access regained. went to OR. cultures growing pseudomonas. 2: minimal improvements. taken to OR yesterday for cysto. minimal uop overnight. off epinephrine but remains on 2 vasopressors, in shock. wbc downtrending but > 50k. 11/18: vasopressor requirements are improving slightly. remains on 2 vasopressors and in shock. blood and urine growing pseudomonas, sputum growing MRSA (history of MRSA pneumonia). wbc downtrending, but remains very high. uop marginal. 11/19 Patient remains sedated and intubated. On Levophed 2 mics, Vasopressin 0.04 mics. WBC is trending down. 11/20 Patient remains intubated and on Precedex for sedation. Remains on Vasopressin and Levophed 8 mics. Afebrile. 11/21 No events overnight. Off pressors and off Precedex. Awake, alert tolerated CPAP for several hrs yesterday Objective Vital Signs Date Time Temp Pulse Resp B/P (MAP) Pulse Ox O2 Delivery O2 Flow Rate FiO2 11/21/17 04:00 40 11/21/17 04:00 98.5 111 15 118/55 (76) 100 Intake and Output 11/21/17 11/21/17 11/22/17 08:00 16:00 00:00 Intake Total 818 ml Output Total 525 ml Balance 293 ml Result Diagram: 11/21/17 0500 11/21/17 0500 Other Results Laboratory Tests Test 11/20/17 08:00 11/21/17 05:00 Blood Gas Puncture Site RT RADIAL Blood Gas Patient Temperature 98.6 Blood Gas HCO3 18 mmol/L Blood Gas Base Excess -6.5 mmol/L Blood Gas Oxygen Saturation 93 % Arterial Blood pH 7.35 Arterial Blood Partial Pressure CO2 33 mmHg Arterial Blood Partial Pressure O2 79 mmHg Arterial Blood Oxygen Content 14.6 Vol % Arterial Blood Carboxyhemoglobin 1.0 % Arterial Blood Methemoglobin 1.1 % Blood Gas Hemoglobin 11.0 G/DL Oxygen Delivery Device VENTILATOR Blood Gas Ventilator Setting A/C 500/15/5PEEP Blood Gas Inspired Oxygen 40 % White Blood Count 20.8 TH/MM3 Red Blood Count 3.74 MIL/MM3 Hemoglobin 10.1 GM/DL Hematocrit 31.6 % Mean Corpuscular Volume 84.3 FL Mean Corpuscular Hemoglobin 27.1 PG Mean Corpuscular Hemoglobin Concent 32.1 % Red Cell Distribution Width 21.3 % Platelet Count 181 TH/MM3 Mean Platelet Volume 8.1 FL Neutrophils (%) (Auto) 90.6 % Lymphocytes (%) (Auto) 5.1 % Monocytes (%) (Auto) 4.0 % Eosinophils (%) (Auto) 0.1 % Basophils (%) (Auto) 0.2 % Neutrophils # (Auto) 18.9 TH/MM3 Lymphocytes # (Auto) 1.1 TH/MM3 Monocytes # (Auto) 0.8 TH/MM3 Eosinophils # (Auto) 0.0 TH/MM3 Basophils # (Auto) 0.0 TH/MM3 CBC Comment AUTO DIFF Blood Urea Nitrogen 46 MG/DL Creatinine 2.85 MG/DL Random Glucose 89 MG/DL Total Protein 4.9 GM/DL Calcium Level 6.7 MG/DL Sodium Level 140 MEQ/L Potassium Level 3.1 MEQ/L Chloride Level 105 MEQ/L Carbon Dioxide Level 23.0 MEQ/L Anion Gap 12 MEQ/L Estimat Glomerular Filtration Rate 16 ML/MIN Protein Corrected Calcium 7.8 MG/DL Imaging Last Impressions Chest X-Ray 11/20/17 0000 Signed Impressions: Service Date/Time: Monday, November 20, 2017 07:29 - CONCLUSION: 1. Supportive devices are in appropriate position. 2. Persistent bilateral airspace disease without significant change since 11/16 Anthony Daugherty MD Abdomen X-Ray 11/17/17 0000 Signed Impressions: Service Date/Time: Friday, November 17, 2017 19:04 - CONCLUSION: The proximal tip of the double-J stent is either in the expected region of the right renal pelvis or proximal ureter. Allen Mensah MD Abdomen/Pelvis CT 11/16/17 0000 Signed Impressions: Service Date/Time: Thursday, November 16, 2017 08:54 - CONCLUSION: 1. Moderate hydronephrosis right kidney and hydroureter. There is dense material layering within the right renal pelvis and distal ureter of uncertain etiology but could be hemorrhage. Urinalysis and clinical correlation. 2. Hyperdense left renal lesion likely complex cyst. 3. Scattered diverticulosis of the colon. 4. Left basilar consolidation. 5. Left-sided ventral wall hernia. El Nuñez MD Chest CT 11/15/17 1255 Signed Impressions: Service Date/Time: November 14:24 - CONCLUSION: 1. New consolidative infiltrate in the posterior right upper lobe most characteristic of pneumonia. 2. Consolidation also noted in the left lower lobe which is increased from the prior CT. 3. New abnormal streaky density in the posterior upper abdomen located posterior to the liver. This is nonspecific but could represent infection or inflammatory change. 4. Cardiomegaly. Chintan Marshall MD Head CT 11/15/17 1134 Signed Impressions: Service Date/Time: November 14:13 - CONCLUSION: 1. No acute hemorrhage or mass effect. 2. Atrophy and chronic small vessel ischemic change 3. Air-fluid levels in the maxillary sinuses most characteristic of acute sinusitis. Chintan Marshall MD Objective Remarks GENERAL: Patient is 67 yo intubated SKIN: Warm and dry. HEAD: Normocephalic. EYES: No scleral icterus. No injection or drainage. NECK: Supple, trachea midline. No JVD or lymphadenopathy. CARDIOVASCULAR: Regular rate and rhythm without murmurs, gallops, or rubs. RESPIRATORY: Breath sounds equal bilaterally. No accessory muscle use. GASTROINTESTINAL: Abdomen soft, non-tender, nondistended. MUSCULOSKELETAL: No cyanosis, + edema. Neuro: Intubated, Awake follows commands A/P Assessment and Plan Assessment: This is a 67yF with super morbid obesity and a chronic debilitated course which has included multiple prior respiratory failures requiring mechanical ventilation, including a recent intubation a year ago requiring tracheostomy and LTAC admission who presents with septic shock, multiorgan failure. Remains in shock. Pyelonephritis as source. very poor prognosis. prealbumin of 3 suggestive of long-standing severe protein calorie malnutrition. shock and renal failure persist, despite now with source control. will continue aggressive measures per family request. Neuro: Metabolic Encephalopathy - - frequent neuro checks - Off Precedex. Resp: Acute hypoxic and hypercarbic respiratory failure Healthcare Associated Pneumonia - Continue with vent support keep sat >92% Bronchodilators, ICU vent bundle. SBT daily as loc - sputum culture: MRSA CV: s/p Septic Shock - Atrial fibrillation with rapid ventricular response - Place on Lopressor 25mg Q12 monitor HR and BP keep MAP>65mmHg lactic acid level: 1.4 Decrease Hydrocortisone 25mg Q12 Renal: Acute Kidney Injury Acute pyelonephritis Monitor renal function, I/O's, avoid nephrotoxins Cr:2.85 continue Lasix 40mg IV Q8. Give KCL 40meqIV x1 for K 3.1 - s/p Emergent cysto with stent /, Urology is following Renal is following- Dr. Lopez FEN/GI: Super Morbid Obesity Lactic Acidosis Anion-gap Metabolic acidosis Acute intravascular volume overload Severe acute protein calorie malnutrition -On tube feeds- Nepro with goal rate 40ml/hr -Pepcid for GI prophylaxis Heme/ID: History of prior MRSA pneumonia Acute pyelonephritis Pseudomonas bacteremia - ID on board. - abx per Mitzi. On Zyvox and Fortaz. Monitor for signs of infections ( Fever, WBC) -26 BC :NGTD -2/ BC: Coag negative staph /4 bottles..likely contaminant - 11/17 Urine cx :Pseudomonas - 2/ blood cultures: pseudomonas - 2/1 urine culture: pseudomonas - 2/1 sputum culture: MRSA Endocrine: Hyperglycemia of Critical Illness - q6h SSI, med scale Prophylaxis: SCDs, SQH Pepcid Lines: - 2/2 right IJ triple lumen catheter - Solitario Level 3 Juma Pak MD Nov 21, 2017 07:27
[2017-11-21] MEDS ORDERED: POTASSIUM CHLOR 40 MEQ PREMIX 100 ML IV ONE (07:30)
[2017-11-21 07:58] LABS: BANDS 1 % (0-6); LYMPHOCYTES 3 % (9-44); METAMYELOCYTES 3 % (0-1); MONOCYTES 4 % (0-8); MYELOCYTES 2 % (0-0); NEUTROPHIL # MANUAL DIFF 19.3 TH/MM3 (1.8-7.7); POLYS (SEG NEUTROPHILS) 87 % (16-70)
[2017-11-21 07:59] LABS: OVALOCYTES 1+ (NORMAL)
[2017-11-21] MEDS: DOCUSATE SODIUM 50 MG/SENNA 8.6 MG TAB PO SCH ×2 (09:24→20:31)
[2017-11-21] MEDS: HYDROCORTISONE SOD SUCCINATE 100 MG VIAL IV PUSH SCH ×2 (09:24→20:31)
[2017-11-21] MEDS: METOPROLOL TARTRATE 25 MG TAB PO SCH ×2 (09:24→20:31)
[2017-11-21] MEDS: FAMOTIDINE 20 MG/2 ML VIAL IV PUSH SCH ×2 (09:26→20:30)
[2017-11-21] MEDS ORDERED: FUROSEMIDE 40 MG/4 ML VIAL IV PUSH ONE (10:45)
--- NOTE | 2017-11-21 11:09 | HHI.IDPN ---
Subjective Subjective Remarks is a 67 y/o CF morbidly obese with BMI 58.7 kg/m2 who has had multiple prior admissions for MRSA pneumonia and respiratory failure presents by EMS for recurrent respiratory failure. She resides in a SNF. She was found unresponsive this morning. She was intubated in the field. She has a wbc 52k, lactate of 6.9, Cr 2.87 (baseline 0.5, prior admission discharge was 1.8). u/a concerning for probable UTI as well. In the emergency department patient received 3 IV fluid boluses and continued to be hypotensive needing vasopressor support. Upon review of records it appears she was recently treated in Oct 15 for UTI at [facility] with macrobid. EMAR from [facility] with no antibiotics but was on lactobacillus. Spoke to CHILO Moura at [facility] patient has 2-3 episodes of vomiting yesterday at [facility] and received antiemetics. T:98, BP: 110/62, 96% RA, BS: 108. Patient was not on any antibiotics. No diarrhea. Lasix increased due to pedal edema. No cultures drawn. No flu test done per records. She has a prior h/o admission at [place] admitted in late 2016 when she was in the ICU intubated needing a trach eventually. During that admission patient was treated for MRSA pneumonia but also she has a history of pseudomonas infections in the past. Pseudomonas in the past with pansensitive cultures but given her multiple hospitalization and multiple courses of antibiotics she stands at this for multidrug-resistant Pseudomonas. At the time of my evaluation patient is in the IMC appears very critically ill intubated. Patient is on vasopressin 0.04, we will fed 40 mics, epinephrine 10/9, amiodarone drip at 1 g. Patient has 0 urine output at the present time. She has small white secretions. She has no diarrhea. Abdomen appears benign. No response to verbal or other stimuli for me but RN reports when daughter was here earlier she opened eyes, moved limbs and squeezed RNs fingers. Currently sedation is off but patient in ARF with no urine output. Infectious disease consultation was requested for evaluation and management of septic shock, pneumonia. Notes reviewed D/W RN Patient remains intubated Off pressors. Opens eyes spontaneously. Responds to verbal commands. Nodes Yes/No to Questions. FiO2 at 40% Secretions not much, pale white. Solitario in place. S/P urologic procedure 11/16/17 No fevers No rash No diarrhea Antibiotics Current Medications Zerbaxa IV Zyvox Current Medications Medications (Trade) Dose Ordered Sig/Mirta Route Start Time Stop Time Status Last Admin (Brethine Inj) 1 mg UNSCH PRN SQ 11/15/17 12:45 (Peridex 0.12% Liq) 15 ml BID@08,20 MT 11/15/17 20:00 11/18/17 08:28 (D50w (Vial) Inj) 25 ml UNSCH PRN IV PUSH 11/15/17 14:00 (NovoLIN R SUPPLEMENTAL SCALE) 1 Q6HR SQ 11/15/17 18:00 11/19/17 06:53 (Duoneb Neb) 1 ampule Q6HR NEB INH 11/15/17 16:00 11/19/17 08:04 (Duoneb Neb) 1 ampule Q2HR NEB PRN INH 11/15/17 14:00 11/17/17 23:39 (Tylenol) 650 mg Q6H PRN PO 11/15/17 14:00 (Pepcid Inj) 10 mg Q12HR IV PUSH 11/15/17 21:00 11/19/17 09:53 (Zofran Inj) 4 mg Q6H PRN IV PUSH 11/15/17 14:00 (Heparin Inj) 5,000 units Q8H SQ 11/15/17 15:00 11/19/17 06:53 Miscellaneous Information 1 Q361D XX 11/15/17 14:00 11/15/17 19:00 (Chlorhexidine 2% Cloth) 3 pack Taper DAILY@04 TOP 11/16/17 04:00 11/12/18 03:59 11/18/17 00:56 (Chlorhexidine 2% Cloth) 3 pack UNSCH PRN TOP 11/15/17 14:00 (Zelda-Colace) 1 tab BID PO 11/15/17 21:00 11/19/17 09:52 (Milk Of Magnesia Liq) 30 ml Q12H PRN PO 11/15/17 14:00 (Senokot) 17.2 mg Q12H PRN PO 11/15/17 14:00 (Dulcolax Supp) 10 mg DAILY PRN RECTAL 11/15/17 14:00 (Lactulose Liq) 30 ml DAILY PRN PO 11/15/17 14:00 Vasopressin 40 units/Dextrose 100 ml @ 6 mls/hr [id number] IV 11/15/17 14:12 11/19/17 06:54 Ceftolozane/ Tazobactam 375 mg/ Sodium Chloride 100 ml @ 100 mls/hr Q8H IV 11/15/17 17:30 11/19/17 00:15 Norepinephrine Bitartrate 16 mg/ Dextrose 250 ml @ 1.87 mls/hr TITRATE PRN IV 11/15/17 22:45 11/18/17 03:07 Linezolid 300 ml @ 300 mls/hr Q12H IV 11/16/17 07:00 11/19/17 06:53 Cefazolin Sodium 3000 mg/Sodium Chloride 130 ml @ 200 mls/hr CIRCULATION TENDER IV 11/16/17 15:45 11/19/17 15:44 (Peridex 0.12% Liq) 15 ml BID@08,20 MT 11/16/17 20:00 11/19/17 09:54 Amiodarone HCl 200 mg/Dextrose 101 ml @ 202 mls/hr Q12H IV 11/18/17 12:00 11/19/17 00:14 (SoluCORTEF INJ) 50 mg Q12HR IV PUSH 11/19/17 09:00 Dexmedetomidine HCl 1000 mcg/ Sodium Chloride 250 ml @ 9.07 mls/hr TITRATE PRN IV 11/19/17 08:15 Lines RIJ TLC Past Medical History Past Medical History Chronic asthma home oxygen Atrial fibrillation Hyperlipidemia Hypertension excellent diabetes mellitus GERD Morbid obesity BMI 55 Past Surgical History Appendectomy Hernia surgery Tracheostomy placement Allergies: Coded Allergies: penicillin G (Unverified Allergy, Severe, 05/29/17) Objective . Vital Signs Date Time Temp Pulse Resp B/P (MAP) Pulse Ox O2 Delivery O2 Flow Rate FiO2 11/21/17 09:00 118 16 91/62 (72) 100 11/21/17 08:00 98.9 124 15 101/59 (73) 100 11/21/17 07:49 100 30 11/21/17 07:30 122 15 100 11/21/17 07:00 118 16 107/66 (80) 100 11/21/17 04:00 40 11/21/17 04:00 98.5 111 15 118/55 (76) 100 2/7/18 02:55 100 40 2/7/18 00:00 98.3 100 15 106/55 (72) 100 2/7/18 00:00 40 2/6/18 23:18 100 40 2/6/18 21:16 104 116/59 2/6/18 20:05 97 40 2/6/18 20:00 40 2/6/18 20:00 98.9 104 19 120/55 (76) 97 2/6/18 19:15 103 19 95/51 (66) 99 2/6/18 19:00 101 17 99/52 (68) 98 2/6/18 18:45 102 20 100/55 (70) 98 2/6/18 18:30 98 17 103/50 (67) 97 2/6/18 18:15 98 16 95/49 (64) 99 2/6/18 18:00 100 16 91/52 (65) 99 2/6/18 17:45 99 15 87/57 (67) 98 2/6/18 17:30 100 18 84/54 (64) 96 2/6/18 17:15 99 15 81/47 (58) 97 2/6/18 17:00 101 17 99/51 (67) 98 2/6/18 16:55 97 40 2//18 16:55 40 2/6/18 16:45 105 20 106/55 (72) 95 2/6/18 16:30 98 20 105/59 (74) 94 2/6/18 16:29 97 19 115/67 (83) 94 2/6/18 16:00 98.6 97 20 106/63 (77) 94 2/6/18 16:00 40 2/6/18 15:45 91 15 112/64 (80) 97 2/6/18 15:30 94 16 118/79 (92) 95 2/6/18 15:15 94 17 112/81 (91) 94 2/6/18 15:00 85 15 107/51 (69) 97 2/6/18 14:45 79 15 100/50 (67) 97 2/6/18 14:30 83 15 92/63 (73) 96 2/6/18 14:15 84 15 112/60 (77) 97 2/6/18 14:00 89 15 120/57 (78) 97 11/20/17 13:46 90 15 132/62 (85) 97 11/20/17 13:31 83 15 131/56 (81) 97 11/20/17 13:15 96 15 135/64 (87) 97 11/20/17 13:00 97 15 136/67 (90) 98 11/20/17 12:46 101 15 164/74 (104) 98 11/20/17 12:31 104 15 183/70 (107) 97 11/20/17 12:16 112 17 195/84 (121) 96 11/20/17 12:15 111 17 96 11/20/17 12:00 40 11/20/17 12:00 98.5 100 15 96 11/20/17 11:59 97 40 11/20/17 11:59 102 15 143/103 (116) 96 11/20/17 11:46 103 15 180/84 (116) 96 11/20/17 11:30 103 15 149/60 (89) 97 11/20/17 11:15 102 15 149/83 (105) 97 . Laboratory Tests Test 11/20/17 04:15 11/21/17 05:00 White Blood Count 26.0 TH/MM3 20.8 TH/MM3 Red Blood Count 3.97 MIL/MM3 3.74 MIL/MM3 Hemoglobin 10.9 GM/DL 10.1 GM/DL Hematocrit 33.7 % 31.6 % Mean Corpuscular Volume 85.1 FL 84.3 FL Mean Corpuscular Hemoglobin 27.5 PG 27.1 PG Mean Corpuscular Hemoglobin Concent 32.3 % 32.1 % Red Cell Distribution Width 21.1 % 21.3 % Platelet Count 236 TH/MM3 181 TH/MM3 Mean Platelet Volume 8.3 FL 8.1 FL Neutrophils (%) (Auto) 91.4 % 90.6 % Lymphocytes (%) (Auto) 2.8 % 5.1 % Monocytes (%) (Auto) 5.4 % 4.0 % Eosinophils (%) (Auto) 0.0 % 0.1 % Basophils (%) (Auto) 0.4 % 0.2 % Neutrophils # (Auto) 23.8 TH/MM3 18.9 TH/MM3 Lymphocytes # (Auto) 0.7 TH/MM3 1.1 TH/MM3 Monocytes # (Auto) 1.4 TH/MM3 0.8 TH/MM3 Eosinophils # (Auto) 0.0 TH/MM3 0.0 TH/MM3 Basophils # (Auto) 0.1 TH/MM3 0.0 TH/MM3 CBC Comment AUTO DIFF AUTO DIFF Differential Total Cells Counted 100 100 Neutrophils % (Manual) 80 % 87 % Band Neutrophils % 6 % 1 % Lymphocytes % 8 % 3 % Monocytes % 5 % 4 % Neutrophils # (Manual) 22.6 TH/MM3 19.3 TH/MM3 Myelocytes 1 % 2 % Differential Comment FINAL DIFF MANUAL FINAL DIFF MANUAL Platelet Estimate NORMAL NORMAL Platelet Morphology Comment NORMAL NORMAL Metamyelocytes 3 % Ovalocytes 1+ Laboratory Tests Test 11/20/17 04:15 11/21/17 05:00 Blood Urea Nitrogen 42 MG/DL 46 MG/DL Creatinine 2.91 MG/DL 2.85 MG/DL Random Glucose 192 MG/DL 89 MG/DL Total Protein 5.3 GM/DL 4.9 GM/DL Albumin 2.0 GM/DL Calcium Level 6.7 MG/DL 6.7 MG/DL Alkaline Phosphatase 137 U/L Aspartate Amino Transf (AST/SGOT) 8 U/L Alanine Aminotransferase (ALT/SGPT) 7 U/L Total Bilirubin 0.3 MG/DL Sodium Level 137 MEQ/L 140 MEQ/L Potassium Level 3.8 MEQ/L 3.1 MEQ/L Chloride Level 103 MEQ/L 105 MEQ/L Carbon Dioxide Level 21.9 MEQ/L 23.0 MEQ/L Anion Gap 12 MEQ/L 12 MEQ/L Estimat Glomerular Filtration Rate 16 ML/MIN 16 ML/MIN Protein Corrected Calcium 7.6 MG/DL 7.8 MG/DL Phosphorus Level 3.5 MG/DL Microbiology Date/Time Source Procedure Growth Status 11/20/17 16:24 Blood Peripheral Aerobic Blood Culture Pending Received 11/20/17 16:24 Blood Peripheral Anaerobic Blood Culture Pending Received 11/20/17 15:00 Blood Peripheral Aerobic Blood Culture Pending Received 11/20/17 15:00 Blood Peripheral Anaerobic Blood Culture Pending Received Imaging Last Impressions Abdomen X-Ray 11/17/17 0000 Signed Impressions: Service Date/Time: Friday, November 17, 2017 19:04 - CONCLUSION: The proximal tip of the double-J stent is either in the expected region of the right renal pelvis or proximal ureter. Allen Mensah MD Chest X-Ray 11/16/17 0000 Signed Impressions: Service Date/Time: Thursday, November 16, 2017 12:43 - CONCLUSION: 1. Right IJ central line tip near the atriocaval junction. 2. No gross pneumothorax or significant interval change. Riccardo Stack MD Abdomen/Pelvis CT 11/16/17 0000 Signed Impressions: Service Date/Time: Thursday, November 16, 2017 08:54 - CONCLUSION: 1. Moderate hydronephrosis right kidney and hydroureter. There is dense material layering within the right renal pelvis and distal ureter of uncertain etiology but could be hemorrhage. Urinalysis and clinical correlation. 2. Hyperdense left renal lesion likely complex cyst. 3. Scattered diverticulosis of the colon. 4. Left basilar consolidation. 5. Left-sided ventral wall hernia. El Nuñez MD Chest CT 11/15/17 1255 Signed Impressions: Service Date/Time: November 14:24 - CONCLUSION: 1. New consolidative infiltrate in the posterior right upper lobe most characteristic of pneumonia. 2. Consolidation also noted in the left lower lobe which is increased from the prior CT. 3. New abnormal streaky density in the posterior upper abdomen located posterior to the liver. This is nonspecific but could represent infection or inflammatory change. 4. Cardiomegaly. Chintan Marshall MD Head CT 11/15/17 1134 Signed Impressions: Service Date/Time: November 14:13 - CONCLUSION: 1. No acute hemorrhage or mass effect. 2. Atrophy and chronic small vessel ischemic change 3. Air-fluid levels in the maxillary sinuses most characteristic of acute sinusitis. Chintan Marshall MD Physical Exam GENERAL: Morbidly obese patient, intubated. NAD. Opens eyes when stimulated. Not following SKIN: Ecchymoses noted. Left thigh large 15x10 cm approx area of erythema, abrasion of skin noted, looks better Skin folds in groin and breast with erythema and fungal overgrowth, improving HEAD: Atraumatic. Normocephalic. No temporal or scalp tenderness. EYES: Pupils equal round and reactive. No icterus, pale conjunctiva. Large neck. ENT: Intubated. No nasal drainage Prior trach site ok. NECK: Trachea midline. Supple, nontender, no meningeal signs. CARDIOVASCULAR: HS audible and distant. RESPIRATORY: Clear to auscultation anteriorly. Distant breath sounds. GASTROINTESTINAL: Abdomen obese, grimacing during palpation, no guarding, has midline ventral hernia. Pannus noted. MUSCULOSKELETAL: Pedal edema noted. No cyanosis NEUROLOGICAL: Open eyes when stimulated, not following Psych could not be assessed IV line sites with no e.o infection. : Solitario in place color looks better Assessment & Plan Remarks IMPRESSION PSAE sepsis, with Septic shock with multiorgan dysfunction syndrome due to complicated UTI - has R pyonephrosis, S/P cysto and stent placement - still on pressors but decreasing dose, WBC lower, temps better, creatinine decreasing Pneumonia, C/S MRSA 1. Aspiration pneumonia highly likely given multiple episodes of vomiting prior to admission in the [facility]pc 2. Possible post influenza necrotizing pneumonia. 3. Health care pneumonia. Staph coag neg bacteremia: likely contaminant. Acute respiratory failure on vent Acute renal failure with anuria, due to sepsis and shock. Morbid obesity BMI 58.7 KG per meter squared Nausea vomiting prior to admission Recommendations: Continue Ceftazidime IV Continue Zyvox IV (MRSA pneumonia in a ARF patient with oliguria, additional exotoxin neutralization effect for Staph, MRSA and Strep pneumonia) If diarrhea send stool for Cdiff. Follow cultures Follow clinically. D/W Amy Crenshaw MD Nov 21, 2017 11:09
[2017-11-21] MEDS: ACETAMINOPHEN 325 MG TAB PO PRN (12:33)
--- NOTE | 2017-11-21 14:27 | HHI.NPPN ---
Subjective General Problems: Edema Renal Failure: Acute Interval History She is intubated but not on sedation, awake, nods yes/no to questions. Renal function slightly better. Fluid overload persists. (Suad Lucas) Review of Systems General General Remarks unable to obtain (Suad Lucas) Objective Data Data Vital Signs Date Time Temp Pulse Resp B/P (MAP) Pulse Ox O2 Delivery O2 Flow Rate FiO2 11/21/17 12:15 97 30 11/21/17 12:15 30 11/21/17 09:00 118 16 91/62 (72) 100 11/21/17 08:00 98.9 124 15 101/59 (73) 100 11/21/17 07:49 100 30 11/21/17 07:30 122 15 100 11/21/17 07:00 118 16 107/66 (80) 100 11/21/17 04:00 40 11/21/17 04:00 98.5 111 15 118/55 (76) 100 11/21/17 02:55 100 40 11/21/17 00:00 98.3 100 15 106/55 (72) 100 11/21/17 00:00 40 11/20/17 23:18 100 40 11/20/17 21:16 104 116/59 11/20/17 20:05 97 40 11/20/17 20:00 40 11/20/17 20:00 98.9 104 19 120/55 (76) 97 11/20/17 19:15 103 19 95/51 (66) 99 11/20/17 19:00 101 17 99/52 (68) 98 11/20/17 18:45 102 20 100/55 (70) 98 18 18:30 98 17 103/50 (67) 97 11/20/17 18:15 98 16 95/49 (64) 99 11/20/17 18:00 100 16 91/52 (65) 99 11/20/17 17:45 99 15 87/57 (67) 98 11/20/17 17:30 100 18 84/54 (64) 96 11/20/17 17:15 99 15 81/47 (58) 97 11/20/17 17:00 101 17 99/51 (67) 98 11/20/17 16:55 97 40 11/20/17 16:55 40 11/20/17 16:45 105 20 106/55 (72) 95 11/20/17 16:30 98 20 105/59 (74) 94 11/20/17 16:29 97 19 115/67 (83) 94 11/20/17 16:00 98.6 97 20 106/63 (77) 94 11/20/17 16:00 40 11/20/17 15:45 91 15 112/64 (80) 97 11/20/17 15:30 94 16 118/79 (92) 95 11/20/17 15:15 94 17 112/81 (91) 94 11/20/17 15:00 85 15 107/51 (69) 97 11/20/17 14:45 79 15 100/50 (67) 97 11/20/17 14:30 83 15 92/63 (73) 96 (Suad Lucas) -: 11/21/17 0500 11/21/17 0500 Microbiology 11/20/17 Aerobic Blood Culture - Preliminary, Resulted NO GROWTH IN 1 DAY 11/20/17 Anaerobic Blood Culture - Preliminary, Resulted NO GROWTH IN 1 DAY 11/20/17 Aerobic Blood Culture - Preliminary, Resulted NO GROWTH IN 1 DAY 11/20/17 Anaerobic Blood Culture - Preliminary, Resulted NO GROWTH IN 1 DAY Tubes & Lines: Solitario Tubes & Lines Comment TLC right IJ (Suad Lucas) Physical Exam General Appearance: Comfortable, Obese Appearance Remarks unresponsive on vent (Suad Lucas) Throat Throat Exam: Oral Mucosa Moca & Moist (Suad Lucas) Pulmonary Resp Exam: Breath Sounds Equal, Crackles (Suad Lucas) Cardiology CV Exam: Regular, Normal Sinus Rhythm (Suad Lucas) Gastrointestinal/Abdomen GI Exam: Soft, Non-Tender GI Remarks morbidly obese (Suad Lucas) Musculoskeletal MS Exam: Joints Intact, Unable to Ambulate (Suad Lucas) Integumentary Skin Exam: Warm, Dry (Suda Lucas) Extremeties Extremities Exam: Pedal Pulses Palpable, Moderate Edema, Pitting Edema Extremeties Remarks anasarca (Suad Lucas) Neurologic Neuro Exam: Unresponsive, Sedated (Suad Lucas) Assessment/Plan Assessment Summary: FREDDY/Acute Renal Failure, Fluid/Volume Overload, Hypotension Problem List: (1) FREDDY (acute kidney injury) ICD Codes: N17.9 - Acute kidney failure, unspecified Plan: In January 2017 her renal function was normal. Had FREDDY in September, creatinine at discharge was 1.8 This admission she suffered obstructive uropathy, s/p R urethral stent placement on the Also noted to have urosepsis with renal hyperperfusion Renal function slightly better. She has massive fluid overload, start Lasix gtt at 20 mg/hr after 40 mg bolus. stop intermittent lasix. Repeat labs tomorrow. Avoid nephrotoxic agents. Use pressors to maintain MAP 65 mmHg (2) Pneumonia ICD Codes: J18.9 - Pneumonia, unspecified organism Status: Acute Plan: ID following, on Ceftazidime and Zyvox. Suspected aspiration PNA from vomiting. (3) Septic shock ICD Codes: A41.9 - Sepsis, unspecified organism; R65.21 - Severe sepsis with septic shock Plan: Pseudomonas sepsis Continue supportive care (4) Respiratory failure ICD Codes: J96.90 - Respiratory failure, unspecified, unspecified whether with hypoxia or hypercapnia Plan: Vent management, on 30% FiO2 currently. tolerated CPAP yesterday. + MRSA in sputum (Suad Lucas) Plan patient was seen and examined. Non oliguric, but fluid overload persists. Start Lasix drip, monitor urine output and renal function. Patient with UTI with sepsis: Pseudomonas. MRSA in the sputum. Currently on Zyvox IV and Fortaz IV. Discussed with ID physician. (Mohinder Lopez MD) Suad Lucas Nov 21, 2017 14:27 Mohinder Lopez MD Nov 21, 2017 18:08
[2017-11-21] MEDS: CHLORHEXIDINE 0.12% (ORAL KIT) 15 ML CUP MT SCH ×2 (17:59→20:30)
--- NOTE | 2017-11-21 20:06 | HHI.PR ---
Subjective Patient symptoms today 67y. o. F with super morbid obesity who has multiple comorbidities admitted for MRSA pneumonia and respiratory failure. Due to eight hydronephrosis JJ stent was placed by Urology. Pt was seen at the bed side this afternoon. No acute distress. Her condition is more stable and improving. She is off pressors and Precedex. and also tolerates CPAP. She is on diuretics. Her recent creatinine is 2.8.She is not on IV fluids so her urine is concentrated, dark yellow, no hematuria. There was about 400cc in the bag when she was seen. Catheter is in place. Objective Vital Signs Vital Signs Date Time Temp Pulse Resp B/P (MAP) Pulse Ox O2 Delivery O2 Flow Rate FiO2 11/21/17 16:18 96 30 11/21/17 12:15 97 30 11/21/17 12:15 30 11/21/17 09:00 118 16 91/62 (72) 100 11/21/17 08:00 98.9 124 15 101/59 (73) 100 11/21/17 07:49 100 30 11/21/17 07:30 122 15 100 11/21/17 07:00 118 16 107/66 (80) 100 11/21/17 04:00 40 11/21/17 04:00 98.5 111 15 118/55 (76) 100 11/21/17 02:55 100 40 11/21/17 00:00 98.3 100 15 106/55 (72) 100 11/21/17 00:00 40 11/20/17 23:18 100 40 11/20/17 21:16 104 116/59 11/20/17 20:05 97 40 11/20/17 20:00 40 11/20/17 20:00 98.9 104 19 120/55 (76) 97 Result Diagram: 11/21/17 0500 11/21/17 0500 Objective Remarks Intubated Dark somewhat cloudy urine with garcia Medications and IVs Current Medications Medications (Trade) Dose Ordered Sig/Mirta Route Start Time Stop Time Status Last Admin (Brethine Inj) 1 mg UNSCH PRN SQ 11/15/17 12:45 (D50w (Vial) Inj) 25 ml UNSCH PRN IV PUSH 11/15/17 14:00 (NovoLIN R SUPPLEMENTAL SCALE) 1 Q6HR SQ 11/15/17 18:00 11/20/17 17:43 (Duoneb Neb) 1 ampule Q2HR NEB PRN INH 11/15/17 14:00 11/17/17 23:39 (Tylenol) 650 mg Q6H PRN PO 11/15/17 14:00 11/21/17 12:33 (Pepcid Inj) 10 mg Q12HR IV PUSH 11/15/17 21:00 11/21/17 09:26 (Zofran Inj) 4 mg Q6H PRN IV PUSH 11/15/17 14:00 (Heparin Inj) 5,000 units Q8H SQ 11/15/17 15:00 11/21/17 18:01 Miscellaneous Information 1 Q361D XX 11/15/17 14:00 11/15/17 19:00 (Chlorhexidine 2% Cloth) Taper DAILY@04 TOP 11/16/17 04:00 11/12/18 03:59 11/20/17 03:12 (Chlorhexidine 2% Cloth) 3 pack UNSCH PRN TOP 11/15/17 14:00 (Zelda-Colace) 1 tab BID PO 11/15/17 21:00 11/21/17 09:24 (Milk Of Magnesia Liq) 30 ml Q12H PRN PO 11/15/17 14:00 (Senokot) 17.2 mg Q12H PRN PO 11/15/17 14:00 (Dulcolax Supp) 10 mg DAILY PRN RECTAL 11/15/17 14:00 (Lactulose Liq) 30 ml DAILY PRN PO 11/15/17 14:00 Linezolid 300 ml @ 300 mls/hr Q12H IV 11/16/17 07:00 11/21/17 19:37 (Peridex 0.12% Liq) 15 ml BID@08,20 MT 11/16/17 20:00 11/21/17 17:59 Dexmedetomidine HCl 1000 mcg/ Sodium Chloride 250 ml @ 9.07 mls/hr TITRATE PRN IV 11/19/17 08:15 11/19/17 23:52 Ceftazidime 2000 mg/Sodium Chloride 100 ml @ 200 mls/hr Q12H IV 11/19/17 15:00 11/21/17 18:00 (SoluCORTEF INJ) 25 mg Q12HR IV PUSH 11/21/17 09:00 11/21/17 09:24 (Lopressor) 25 mg Q12HR PO 11/21/17 09:00 11/21/17 09:24 Furosemide 100 mg/ Sodium Chloride 100 ml @ 20 mls/hr CONTINUOUS IV 11/21/17 11:00 Assessment and Plan Problem List: (1) Hydronephrosis ICD Code: N13.30 - Unspecified hydronephrosis (2) Pneumonia ICD Code: J18.9 - Pneumonia, unspecified organism Status: Acute (3) CHF (congestive heart failure) ICD Code: I50.9 - Heart failure, unspecified Status: Acute Assessment and Plan -Continue to monitoring and care as per primary team -Follow other consulted teams recommendations -No acute intervention needed. Her concentrated urine will improve once she is able to get more fluids If any concerns for infection send urine for UC, do not collect it from the bag since its not sterile -Keep garcia catheter in, monitor I&O -Once more stable may need to repeat CT scan for better evaluation of kidneys and stent -Based on KUB stent is visible, appears to be in proper position proximally in the kidne -Her stent will stay until she is stable and ready for d/c and will be removed as an outpt procedure Discussed with Jeramie Fischer Nov 21, 2017 20:06
[2017-11-21 22:16] LABS: PHOSPHORUS 3.3 MG/DL (2.5-4.9)
[2017-11-21] MEDS: POTASSIUM CHLOR 10 MEQ PREMIX 100 ML IV SCH (23:15)
[2017-11-22] VITALS (24 sets, daily range): BP systolic 106–147; BP diastolic 56–90; PULSE 101–127; RESP 15–22; TEMP 97.8–98.9; O2SAT 96–100
[2017-11-22] MEDS: FUROSEMIDE INJ 100 MG in SODIUM CHLORIDE 0.9% INJ 90 ML IV SCH ×5 (00:10→20:20)
[2017-11-22] MEDS: POTASSIUM CHLOR 10 MEQ PREMIX 100 ML IV SCH ×5 (00:13→04:51)
[2017-11-22] MEDS: CHLORHEXIDINE GLUCONATE 2 % 1 PACK (2 CLOTHS) TOP SCH (02:39)
[2017-11-22] MEDS: cefTAZidime INJ 2,000 MG in SODIUM CHLORIDE 0.9% INJ 100 ML IV SCH ×2 (02:39→15:36)
[2017-11-22] MEDS: INSULIN NovoLIN REGULAR SUPPLEMENTAL SCALE SQ SCH ×4 (05:23→23:59)
[2017-11-22] MEDS: LINEZOLID 600 MG PREMIX 300 ML IV SCH ×2 (05:24→19:45)
[2017-11-22] MEDS: HEPARIN SODIUM - SQ 10,000 UNITS/ML VIAL SQ SCH ×3 (05:24→23:59)
[2017-11-22 05:46] LABS: AUTOMATED NEUTROPHIL # 21.5 TH/MM3 (1.8-7.7); BASOPHIL % 0.1 % (0.0-2.0); EOSINOPHIL % 0.1 % (0.0-4.0); HEMATOCRIT 30.9 % (35.0-46.0); HEMOGLOBIN 10.2 GM/DL (11.6-15.3); LYMPH % 4.4 % (9.0-44.0); MEAN CELL VOLUME 85.1 FL (80.0-100.0); MEAN CORPUSCULAR HGB CONC 32.9 % (32.0-36.0); MEAN PLATELET VOLUME 8.1 FL (7.0-11.0); MONO % 4.2 % (0.0-8.0); NEUT % 91.2 % (16.0-70.0); PLATELET COUNT 193 TH/MM3 (150-450); RED BLOOD COUNT 3.63 MIL/MM3 (4.00-5.30); RED CELL DISTRIBUTION WIDTH 21.5 % (11.6-17.2); WHITE BLOOD COUNT 23.6 TH/MM3 (4.0-11.0)
[2017-11-22 05:50] LABS: BICARBONATE 22.4 MEQ/L (21.0-32.0); CREATININE 2.83 MG/DL (0.50-1.00); MAGNESIUM 1.4 MG/DL (1.5-2.5); PHOSPHORUS 3.2 MG/DL (2.5-4.9)
[2017-11-22 06:05] LABS: CALCIUM-PROTEIN CORRECTED 8.3 MG/DL (8.5-10.1); TOTAL PROTEIN 4.7 GM/DL (6.4-8.2)
--- NOTE | 2017-11-22 07:04 | HHI.CCPN ---
Subjective Remarks/Hospital Course Hospital Course: 67yF with super morbid obesity who has had multiple prior admissions for MRSA pneumonia and respiratory failure presents by EMS for recurrent respiratory failure. She resides in a SNF. She was found unresponsive this morning. She was intubated in the field. In the emergency department she was hypotensive despite ivf resuscitation and required norepinephrine for vasopressor support. she has a wbc 52k, lactate of 6.9, Cr 2.87 (baseline 0.5, prior admission discharge was 1.8). u/a concerning for probable UTI as well. Subjective: 2: remained unstable throughout the night overnight. on 3 vasopressors. this morning, no better, wbc higher. decision by Dr. Cartagena and myself to emergently CT abd/pelvis to rule out source control, despite ongoing hemodynamic instability. CT abd/pelvis demonstrated right hydronephrosis with likely obstructive pyelonephritis. discussed with urology and interventional radiology : likely to decompensate during procedure. unable to physically prone patient. difficult technically with high risk to do supine lateral CT guided perc nephrostomy tube. urology to take to the OR for cysto with stenting. Prior to leaving for OR, patient's central line was pulled accidentally. patient had no other iv access. I/O needles unavailable. emergently replaced central line in right IJ (see separate procedure note for details). due to ongoing shock, patient's blood pressure in 40s systolic during this time. restarted vasopressors after central access regained. went to OR. cultures growing pseudomonas. 2: minimal improvements. taken to OR yesterday for cysto. minimal uop overnight. off epinephrine but remains on 2 vasopressors, in shock. wbc downtrending but > 50k. 11/18: vasopressor requirements are improving slightly. remains on 2 vasopressors and in shock. blood and urine growing pseudomonas, sputum growing MRSA (history of MRSA pneumonia). wbc downtrending, but remains very high. uop marginal. 11/19 Patient remains sedated and intubated. On Levophed 2 mics, Vasopressin 0.04 mics. WBC is trending down. 11/20 Patient remains intubated and on Precedex for sedation. Remains on Vasopressin and Levophed 8 mics. Afebrile. 11/21 No events overnight. Off pressors and off Precedex. Awake, alert tolerated CPAP for several hrs yesterday 11/22 Patient is awake and alert tolerated CPAP yesterday. Off sedation. Placed on Lasix drip 20mg/hr per renal. Afebrile. Objective Vital Signs Date Time Temp Pulse Resp B/P (MAP) Pulse Ox O2 Delivery O2 Flow Rate FiO2 11/22/17 06:00 112 11/22/17 04:00 97.8 15 110/62 (78) 98 11/22/17 04:00 30 Intake and Output 11/22/17 11/22/17 11/23/17 08:00 16:00 00:00 Intake Total 1130 ml Output Total 1800 ml Balance -670 ml Result Diagram: 11/22/17 0510 11/22/17 0510 Other Results Laboratory Tests Test 11/21/17 21:40 11/22/17 05:10 Potassium Level 3.0 MEQ/L 3.4 MEQ/L Phosphorus Level 3.3 MG/DL 3.2 MG/DL White Blood Count 23.6 TH/MM3 Red Blood Count 3.63 MIL/MM3 Hemoglobin 10.2 GM/DL Hematocrit 30.9 % Mean Corpuscular Volume 85.1 FL Mean Corpuscular Hemoglobin 28.0 PG Mean Corpuscular Hemoglobin Concent 32.9 % Red Cell Distribution Width 21.5 % Platelet Count 193 TH/MM3 Mean Platelet Volume 8.1 FL Neutrophils (%) (Auto) 91.2 % Lymphocytes (%) (Auto) 4.4 % Monocytes (%) (Auto) 4.2 % Eosinophils (%) (Auto) 0.1 % Basophils (%) (Auto) 0.1 % Neutrophils # (Auto) 21.5 TH/MM3 Lymphocytes # (Auto) 1.0 TH/MM3 Monocytes # (Auto) 1.0 TH/MM3 Eosinophils # (Auto) 0.0 TH/MM3 Basophils # (Auto) 0.0 TH/MM3 CBC Comment AUTO DIFF Blood Urea Nitrogen 48 MG/DL Creatinine 2.83 MG/DL Random Glucose 112 MG/DL Total Protein 4.7 GM/DL Calcium Level 7.0 MG/DL Magnesium Level 1.4 MG/DL Sodium Level 140 MEQ/L Chloride Level 106 MEQ/L Carbon Dioxide Level 22.4 MEQ/L Anion Gap 12 MEQ/L Estimat Glomerular Filtration Rate 17 ML/MIN Protein Corrected Calcium 8.3 MG/DL Imaging Last Impressions Chest X-Ray 11/20/17 0000 Signed Impressions: Service Date/Time: Monday, November 20, 2017 07:29 - CONCLUSION: 1. Supportive devices are in appropriate position. 2. Persistent bilateral airspace disease without significant change since 11/16 Anthony Daugherty MD Abdomen X-Ray 11/17/17 0000 Signed Impressions: Service Date/Time: Friday, November 17, 2017 19:04 - CONCLUSION: The proximal tip of the double-J stent is either in the expected region of the right renal pelvis or proximal ureter. Allen Mensah MD Abdomen/Pelvis CT 11/16/17 0000 Signed Impressions: Service Date/Time: Thursday, November 16, 2017 08:54 - CONCLUSION: 1. Moderate hydronephrosis right kidney and hydroureter. There is dense material layering within the right renal pelvis and distal ureter of uncertain etiology but could be hemorrhage. Urinalysis and clinical correlation. 2. Hyperdense left renal lesion likely complex cyst. 3. Scattered diverticulosis of the colon. 4. Left basilar consolidation. 5. Left-sided ventral wall hernia. El Nuñez MD Chest CT 11/15/17 1255 Signed Impressions: Service Date/Time: November 14:24 - CONCLUSION: 1. New consolidative infiltrate in the posterior right upper lobe most characteristic of pneumonia. 2. Consolidation also noted in the left lower lobe which is increased from the prior CT. 3. New abnormal streaky density in the posterior upper abdomen located posterior to the liver. This is nonspecific but could represent infection or inflammatory change. 4. Cardiomegaly. Chintan Marshall MD Head CT 11/15/17 1134 Signed Impressions: Service Date/Time: November 14:13 - CONCLUSION: 1. No acute hemorrhage or mass effect. 2. Atrophy and chronic small vessel ischemic change 3. Air-fluid levels in the maxillary sinuses most characteristic of acute sinusitis. Chintan Marshall MD Objective Remarks GENERAL: Patient is 67 yo intubated SKIN: Warm and dry. HEAD: Normocephalic. EYES: No scleral icterus. No injection or drainage. NECK: Supple, trachea midline. No JVD or lymphadenopathy. CARDIOVASCULAR: Regular rate and rhythm without murmurs, gallops, or rubs. RESPIRATORY: Breath sounds equal bilaterally. No accessory muscle use. GASTROINTESTINAL: Abdomen soft, non-tender, nondistended. MUSCULOSKELETAL: No cyanosis, + edema. Neuro: Intubated, Awake follows commands A/P Assessment and Plan Assessment: This is a 67yF with super morbid obesity and a chronic debilitated course which has included multiple prior respiratory failures requiring mechanical ventilation, including a recent intubation a year ago requiring tracheostomy and LTAC admission who presents with septic shock, multiorgan failure. Remains in shock. Pyelonephritis as source. very poor prognosis. prealbumin of 3 suggestive of long-standing severe protein calorie malnutrition. shock and renal failure persist, despite now with source control. will continue aggressive measures per family request. Neuro: Metabolic Encephalopathy - - frequent neuro checks - Off sedation Resp: Acute hypoxic and hypercarbic respiratory failure Healthcare Associated Pneumonia - Continue with vent support keep sat >92% Bronchodilators, ICU vent bundle. SBT daily as loc - sputum culture: MRSA CV: s/p Septic Shock - Atrial fibrillation with rapid ventricular response - On Lopressor 25mg Q12 monitor HR and BP keep MAP>65mmHg lactic acid level: 1.4 Hydrocortisone 25mg Q12 Renal: Acute Kidney Injury Acute pyelonephritis Monitor renal function, I/O's, avoid nephrotoxins Cr:2.83 on Lasix 20mg/hr, give KCL 40meq IV for K 3.4 - s/p Emergent cysto with stent /, Urology is following Renal is following- Dr. Lopez FEN/GI: Super Morbid Obesity Lactic Acidosis Anion-gap Metabolic acidosis Acute intravascular volume overload Severe acute protein calorie malnutrition -On tube feeds- Nepro with goal rate 40ml/hr -Pepcid for GI prophylaxis Heme/ID: History of prior MRSA pneumonia Acute pyelonephritis Pseudomonas bacteremia - ID on board. - abx per Nemzeeshan. On Zyvox and Fortaz. Monitor for signs of infections ( Fever, WBC) -2/6 BC :NGTD -2/3 BC: Coag negative staph 1/4 bottles..likely contaminant - 2/ Urine cx :Pseudomonas - 2/1 blood cultures: pseudomonas - 2/1 urine culture: pseudomonas - 2/1 sputum culture: MRSA Endocrine: Hyperglycemia of Critical Illness - q6h SSI, med scale Prophylaxis: SCDs, SQH Pepcid Lines: - 2/2 right IJ triple lumen catheter. d/c central line - Solitario Level 3 Juma Pak MD Nov 22, 2017 07:04
--- NOTE | 2017-11-22 07:05 | RADRPT ---
EXAM DATE/TIME: 11/22/2017 06:32 [place] COMPARISON: CHEST SINGLE AP, November 20, 2017, 7:29. INDICATIONS : Shortness of breath, possible pulmonary disease. MEDICAL HISTORY : Hypertension. Diabetes mellitus type II. SURGICAL HISTORY : None. ENCOUNTER: Subsequent ACUITY: 4 - 6 days PAIN SCORE: Non-responsive. LOCATION: Bilateral chest FINDINGS: Portable AP views of the chest demonstrate a normal-sized cardiac silhouette. Right IJ line, ETT, and nasogastric tube remain present. Multiple EKG lines overlie the patient. There is a stable small lef t basilar pleural-parenchymal opacity obscuring the left hemidiaphragm. There is diffuse right lung a irspace opacity. No pneumothorax is identified. CONCLUSION: Stable chest x-ray with a small left basilar opacity likely representing pleural effusion with associ ated volume loss and/or airspace consolidation. There is also stable diffuse right lung airspace opac ity. Perry Kessler MD on November 22, 2017 at 6:59 Board Certified Radiologist. This report was verified electronically.
[2017-11-22] MEDS ORDERED: POTASSIUM CHLOR 40 MEQ PREMIX 100 ML IV ONE (07:15)
[2017-11-22 07:30] LABS: BANDS 2 % (0-6); HYPERSEGMENTED POLYS 1+ (NORMAL); LYMPHOCYTES 4 % (9-44); METAMYELOCYTES 4 % (0-1); MONOCYTES 2 % (0-8); MYELOCYTES 2 % (0-0); NEUTROPHIL # MANUAL DIFF 22.2 TH/MM3 (1.8-7.7); POLYS (SEG NEUTROPHILS) 86 % (16-70)
[2017-11-22] MEDS: FAMOTIDINE 20 MG/2 ML VIAL IV PUSH SCH ×2 (07:54→19:46)
[2017-11-22] MEDS: ACETAMINOPHEN 325 MG TAB PO PRN (07:57)
[2017-11-22] MEDS: CHLORHEXIDINE 0.12% (ORAL KIT) 15 ML CUP MT SCH ×2 (08:00→19:45)
[2017-11-22] MEDS: HYDROCORTISONE SOD SUCCINATE 100 MG VIAL IV PUSH SCH ×2 (09:00→19:46)
[2017-11-22] MEDS: DOCUSATE SODIUM 50 MG/SENNA 8.6 MG TAB PO SCH ×2 (09:00→19:46)
[2017-11-22] MEDS: METOPROLOL TARTRATE 25 MG TAB PO SCH ×2 (09:00→19:46)
--- NOTE | 2017-11-22 09:11 | HHI.IDPN ---
Subjective Subjective Remarks is a 67 y/o CF morbidly obese with BMI 58.7 kg/m2 who has had multiple prior admissions for MRSA pneumonia and respiratory failure presents by EMS for recurrent respiratory failure. She resides in a SNF. She was found unresponsive this morning. She was intubated in the field. She has a wbc 52k, lactate of 6.9, Cr 2.87 (baseline 0.5, prior admission discharge was 1.8). u/a concerning for probable UTI as well. In the emergency department patient received 3 IV fluid boluses and continued to be hypotensive needing vasopressor support. Upon review of records it appears she was recently treated in Oct 15 for UTI at [facility] with macrobid. EMAR from [facility] with no antibiotics but was on lactobacillus. Spoke to CHILO Moura at [facility] patient has 2-3 episodes of vomiting yesterday at [facility] and received antiemetics. T:98, BP: 110/62, 96% RA, BS: 108. Patient was not on any antibiotics. No diarrhea. Lasix increased due to pedal edema. No cultures drawn. No flu test done per records. She has a prior h/o admission at [place] admitted in late 2016 when she was in the ICU intubated needing a trach eventually. During that admission patient was treated for MRSA pneumonia but also she has a history of pseudomonas infections in the past. Pseudomonas in the past with pansensitive cultures but given her multiple hospitalization and multiple courses of antibiotics she stands at this for multidrug-resistant Pseudomonas. At the time of my evaluation patient is in the IMC appears very critically ill intubated. Patient is on vasopressin 0.04, we will fed 40 mics, epinephrine 10/9, amiodarone drip at 1 g. Patient has 0 urine output at the present time. She has small white secretions. She has no diarrhea. Abdomen appears benign. No response to verbal or other stimuli for me but RN reports when daughter was here earlier she opened eyes, moved limbs and squeezed RNs fingers. Currently sedation is off but patient in ARF with no urine output. Infectious disease consultation was requested for evaluation and management of septic shock, pneumonia. Notes reviewed D/W RN Patient remains intubated Off pressors. Opens eyes spontaneously. Responds to verbal commands. Nodes Yes/No to Questions. FiO2 at 40% Secretions not much, pale white. Solitario in place. S/P urologic procedure 11/16/17 No fevers No rash No diarrhea Antibiotics Current Medications Zerbaxa IV Zyvox Current Medications Medications (Trade) Dose Ordered Sig/Mirta Route Start Time Stop Time Status Last Admin (Brethine Inj) 1 mg UNSCH PRN SQ 11/15/17 12:45 (Peridex 0.12% Liq) 15 ml BID@08,20 MT 11/15/17 20:00 11/18/17 08:28 (D50w (Vial) Inj) 25 ml UNSCH PRN IV PUSH 11/15/17 14:00 (NovoLIN R SUPPLEMENTAL SCALE) 1 Q6HR SQ 11/15/17 18:00 11/19/17 06:53 (Duoneb Neb) 1 ampule Q6HR NEB INH 11/15/17 16:00 11/19/17 08:04 (Duoneb Neb) 1 ampule Q2HR NEB PRN INH 11/15/17 14:00 11/17/17 23:39 (Tylenol) 650 mg Q6H PRN PO 11/15/17 14:00 (Pepcid Inj) 10 mg Q12HR IV PUSH 11/15/17 21:00 11/19/17 09:53 (Zofran Inj) 4 mg Q6H PRN IV PUSH 11/15/17 14:00 (Heparin Inj) 5,000 units Q8H SQ 11/15/17 15:00 11/19/17 06:53 Miscellaneous Information 1 Q361D XX 11/15/17 14:00 11/15/17 19:00 (Chlorhexidine 2% Cloth) 3 pack Taper DAILY@04 TOP 11/16/17 04:00 11/12/18 03:59 11/18/17 00:56 (Chlorhexidine 2% Cloth) 3 pack UNSCH PRN TOP 11/15/17 14:00 (Zelda-Colace) 1 tab BID PO 11/15/17 21:00 11/19/17 09:52 (Milk Of Magnesia Liq) 30 ml Q12H PRN PO 11/15/17 14:00 (Senokot) 17.2 mg Q12H PRN PO 11/15/17 14:00 (Dulcolax Supp) 10 mg DAILY PRN RECTAL 11/15/17 14:00 (Lactulose Liq) 30 ml DAILY PRN PO 11/15/17 14:00 Vasopressin 40 units/Dextrose 100 ml @ 6 mls/hr [id number] IV 11/15/17 14:12 11/19/17 06:54 Ceftolozane/ Tazobactam 375 mg/ Sodium Chloride 100 ml @ 100 mls/hr Q8H IV 11/15/17 17:30 11/19/17 00:15 Norepinephrine Bitartrate 16 mg/ Dextrose 250 ml @ 1.87 mls/hr TITRATE PRN IV 11/15/17 22:45 11/18/17 03:07 Linezolid 300 ml @ 300 mls/hr Q12H IV 11/16/17 07:00 11/19/17 06:53 Cefazolin Sodium 3000 mg/Sodium Chloride 130 ml @ 200 mls/hr CROP DUSTER HELPER IV 11/16/17 15:45 11/19/17 15:44 (Peridex 0.12% Liq) 15 ml BID@08,20 MT 11/16/17 20:00 11/19/17 09:54 Amiodarone HCl 200 mg/Dextrose 101 ml @ 202 mls/hr Q12H IV 11/18/17 12:00 11/19/17 00:14 (SoluCORTEF INJ) 50 mg Q12HR IV PUSH 11/19/17 09:00 Dexmedetomidine HCl 1000 mcg/ Sodium Chloride 250 ml @ 9.07 mls/hr TITRATE PRN IV 11/19/17 08:15 Lines RIJ TLC Past Medical History Past Medical History Chronic asthma home oxygen Atrial fibrillation Hyperlipidemia Hypertension excellent diabetes mellitus GERD Morbid obesity BMI 55 Past Surgical History Appendectomy Hernia surgery Tracheostomy placement Allergies: Coded Allergies: penicillin G (Unverified Allergy, Severe, 05/29/17) Objective . Vital Signs Date Time Temp Pulse Resp B/P (MAP) Pulse Ox O2 Delivery O2 Flow Rate FiO2 11/22/17 08:34 30 11/22/17 06:00 112 11/22/17 04:00 97.8 111 15 110/62 (78) 98 11/22/17 04:00 30 11/22/17 04:00 111 11/22/17 03:40 98 30 11/22/17 02:00 114 11/22/17 00:01 99 30 11/22/17 00:00 101 11/22/17 00:00 98.8 101 15 106/56 (73) 99 11/22/17 00:00 30 11/21/17 22:00 118 11/21/17 20:00 30 11/21/17 20:00 98.5 124 15 117/59 (78) 97 11/21/17 20:00 124 11/21/17 19:41 97 30 11/21/17 18:00 119 11/21/17 18:00 119 18 106/56 (73) 96 11/21/17 17:00 121 17 116/58 (77) 96 11/21/17 17:00 121 11/21/17 16:18 96 30 11/21/17 16:00 40 11/21/17 16:00 117 17 116/59 (78) 96 11/21/17 16:00 117 11/21/17 15:00 116 11/21/17 15:00 116 18 118/59 (78) 96 11/21/17 14:00 113 11/21/17 14:00 113 18 114/62 (79) 96 11/21/17 13:00 107 16 111/59 (76) 96 11/21/17 13:00 107 11/21/17 12:15 97 30 11/21/17 12:15 30 11/21/17 12:00 109 16 106/58 (74) 97 11/21/17 12:00 109 11/21/17 11:00 106 11/21/17 11:00 106 16 123/58 (79) 98 11/21/17 10:00 113 11/21/17 10:00 113 15 123/60 (81) 100 . Laboratory Tests Test 11/21/17 05:00 11/22/17 05:10 White Blood Count 20.8 TH/MM3 23.6 TH/MM3 Red Blood Count 3.74 MIL/MM3 3.63 MIL/MM3 Hemoglobin 10.1 GM/DL 10.2 GM/DL Hematocrit 31.6 % 30.9 % Mean Corpuscular Volume 84.3 FL 85.1 FL Mean Corpuscular Hemoglobin 27.1 PG 28.0 PG Mean Corpuscular Hemoglobin Concent 32.1 % 32.9 % Red Cell Distribution Width 21.3 % 21.5 % Platelet Count 181 TH/MM3 193 TH/MM3 Mean Platelet Volume 8.1 FL 8.1 FL Neutrophils (%) (Auto) 90.6 % 91.2 % Lymphocytes (%) (Auto) 5.1 % 4.4 % Monocytes (%) (Auto) 4.0 % 4.2 % Eosinophils (%) (Auto) 0.1 % 0.1 % Basophils (%) (Auto) 0.2 % 0.1 % Neutrophils # (Auto) 18.9 TH/MM3 21.5 TH/MM3 Lymphocytes # (Auto) 1.1 TH/MM3 1.0 TH/MM3 Monocytes # (Auto) 0.8 TH/MM3 1.0 TH/MM3 Eosinophils # (Auto) 0.0 TH/MM3 0.0 TH/MM3 Basophils # (Auto) 0.0 TH/MM3 0.0 TH/MM3 CBC Comment AUTO DIFF AUTO DIFF Differential Total Cells Counted 100 100 Neutrophils % (Manual) 87 % 86 % Band Neutrophils % 1 % 2 % Lymphocytes % 3 % 4 % Monocytes % 4 % 2 % Neutrophils # (Manual) 19.3 TH/MM3 22.2 TH/MM3 Metamyelocytes 3 % 4 % Myelocytes 2 % 2 % Differential Comment FINAL DIFF MANUAL FINAL DIFF MANUAL Platelet Estimate NORMAL NORMAL Platelet Morphology Comment NORMAL NORMAL Ovalocytes 1+ Hypersegmented Polys 1+ Laboratory Tests Test 11/21/17 05:00 11/21/17 21:40 11/22/17 05:10 Blood Urea Nitrogen 46 MG/DL 48 MG/DL Creatinine 2.85 MG/DL 2.83 MG/DL Random Glucose 89 MG/DL 112 MG/DL Total Protein 4.9 GM/DL 4.7 GM/DL Calcium Level 6.7 MG/DL 7.0 MG/DL Sodium Level 140 MEQ/L 140 MEQ/L Potassium Level 3.1 MEQ/L 3.0 MEQ/L 3.4 MEQ/L Chloride Level 105 MEQ/L 106 MEQ/L Carbon Dioxide Level 23.0 MEQ/L 22.4 MEQ/L Anion Gap 12 MEQ/L 12 MEQ/L Estimat Glomerular Filtration Rate 16 ML/MIN 17 ML/MIN Protein Corrected Calcium 7.8 MG/DL 8.3 MG/DL Phosphorus Level 3.5 MG/DL 3.3 MG/DL 3.2 MG/DL Magnesium Level 1.4 MG/DL Microbiology Date/Time Source Procedure Growth Status 11/20/17 16:24 Blood Peripheral Aerobic Blood Culture - Preliminary NO GROWTH IN 1 DAY Resulted 11/20/17 16:24 Blood Peripheral Anaerobic Blood Culture - Preliminary NO GROWTH IN 1 DAY Resulted 11/20/17 15:00 Blood Peripheral Aerobic Blood Culture - Preliminary NO GROWTH IN 1 DAY Resulted 11/20/17 15:00 Blood Peripheral Anaerobic Blood Culture - Preliminary NO GROWTH IN 1 DAY Resulted Imaging Last Impressions Abdomen X-Ray 11/17/17 0000 Signed Impressions: Service Date/Time: Friday, November 17, 2017 19:04 - CONCLUSION: The proximal tip of the double-J stent is either in the expected region of the right renal pelvis or proximal ureter. Allen Mensah MD Chest X-Ray 11/16/17 0000 Signed Impressions: Service Date/Time: Thursday, November 16, 2017 12:43 - CONCLUSION: 1. Right IJ central line tip near the atriocaval junction. 2. No gross pneumothorax or significant interval change. Riccardo Stack MD Abdomen/Pelvis CT 11/16/17 0000 Signed Impressions: Service Date/Time: Thursday, November 16, 2017 08:54 - CONCLUSION: 1. Moderate hydronephrosis right kidney and hydroureter. There is dense material layering within the right renal pelvis and distal ureter of uncertain etiology but could be hemorrhage. Urinalysis and clinical correlation. 2. Hyperdense left renal lesion likely complex cyst. 3. Scattered diverticulosis of the colon. 4. Left basilar consolidation. 5. Left-sided ventral wall hernia. El Nuñez MD Chest CT 11/15/17 1255 Signed Impressions: Service Date/Time: November 14:24 - CONCLUSION: 1. New consolidative infiltrate in the posterior right upper lobe most characteristic of pneumonia. 2. Consolidation also noted in the left lower lobe which is increased from the prior CT. 3. New abnormal streaky density in the posterior upper abdomen located posterior to the liver. This is nonspecific but could represent infection or inflammatory change. 4. Cardiomegaly. Chintan Marshall MD Head CT 11/15/17 1134 Signed Impressions: Service Date/Time: November 14:13 - CONCLUSION: 1. No acute hemorrhage or mass effect. 2. Atrophy and chronic small vessel ischemic change 3. Air-fluid levels in the maxillary sinuses most characteristic of acute sinusitis. Chintan Marshall MD Physical Exam GENERAL: Morbidly obese patient, intubated. NAD. Opens eyes when stimulated. Not following SKIN: Ecchymoses noted. Left thigh large 15x10 cm approx area of erythema, abrasion of skin noted, looks better Skin folds in groin and breast with erythema and fungal overgrowth, improving HEAD: Atraumatic. Normocephalic. No temporal or scalp tenderness. EYES: Pupils equal round and reactive. No icterus, pale conjunctiva. Large neck. ENT: Intubated. No nasal drainage Prior trach site ok. NECK: Trachea midline. Supple, nontender, no meningeal signs. CARDIOVASCULAR: HS audible and distant. RESPIRATORY: Clear to auscultation anteriorly. Distant breath sounds. GASTROINTESTINAL: Abdomen obese, grimacing during palpation, no guarding, has midline ventral hernia. Pannus noted. MUSCULOSKELETAL: Pedal edema noted. No cyanosis NEUROLOGICAL: Open eyes when stimulated, not following Psych could not be assessed IV line sites with no e.o infection. : Solitario in place color looks better Assessment & Plan Remarks IMPRESSION PSAE sepsis, with Septic shock with multiorgan dysfunction syndrome due to complicated UTI - has R pyonephrosis, S/P cysto and stent placement - still on pressors but decreasing dose, WBC lower, temps better, creatinine decreasing Pneumonia, C/S MRSA 1. Aspiration pneumonia highly likely given multiple episodes of vomiting prior to admission in the [facility] 2. Possible post influenza necrotizing pneumonia. 3. Health care pneumonia. Staph coag neg bacteremia: likely contaminant. Acute respiratory failure on vent Acute renal failure with anuria, due to sepsis and shock. Morbid obesity BMI 58.7 KG per meter squared Nausea vomiting prior to admission Diarrhea: medication vs Cdiff. High grade leucocytosis: Infection, Cdiff, Steroids. Recommendations: Continue Ceftazidime IV Continue Zyvox IV (MRSA pneumonia in a ARF patient with oliguria, additional exotoxin neutralization effect for Staph, MRSA and Strep pneumonia) Diarrhea: send stool for Cdiff. Suleiman. Follow cultures Follow clinically. D/W Amy Crenshaw MD Nov 22, 2017 09:11
[2017-11-22] MEDS: RESP: ALBUTEROL 2.5 MG/IPRATROPIUM 0.5 MG NEB (SCH) NEB ×3 (10:41→19:34)
--- NOTE | 2017-11-22 11:13 | HHI.NPPN ---
Subjective General Problems: Edema Renal Failure: Acute Interval History Renal function is stable. She has negative fluid balance. On Lasix gtt. To be extubated. (Suad Lucas) Review of Systems General General Remarks unable to obtain (Suad Lucas) Objective Data Data Vital Signs Date Time Temp Pulse Resp B/P (MAP) Pulse Ox O2 Delivery O2 Flow Rate FiO2 11/22/17 10:53 98 Nasal Cannula 3.00 11/22/17 10:42 98 Nasal Cannula 3 11/22/17 08:34 30 11/22/17 06:00 112 11/22/17 04:00 97.8 111 15 110/62 (78) 98 11/22/17 04:00 30 11/22/17 04:00 111 11/22/17 03:40 98 30 11/22/17 02:00 114 11/22/17 00:01 99 30 11/22/17 00:00 101 11/22/17 00:00 98.8 101 15 106/56 (73) 99 11/22/17 00:00 30 11/21/17 22:00 118 11/21/17 20:00 30 11/21/17 20:00 98.5 124 15 117/59 (78) 97 11/21/17 20:00 124 11/21/17 19:41 97 30 11/21/17 18:00 119 11/21/17 18:00 119 18 106/56 (73) 96 11/21/17 17:00 121 17 116/58 (77) 96 11/21/17 17:00 121 11/21/17 16:18 96 30 11/21/17 16:00 40 11/21/17 16:00 117 17 116/59 (78) 96 11/21/17 16:00 117 11/21/17 15:00 116 11/21/17 15:00 116 18 118/59 (78) 96 11/21/17 14:00 113 11/21/17 14:00 113 18 114/62 (79) 96 11/21/17 13:00 107 16 111/59 (76) 96 11/21/17 13:00 107 11/21/17 12:15 97 30 11/21/17 12:15 30 11/21/17 12:00 109 16 106/58 (74) 97 11/21/17 12:00 109 (Suad Lucas) -: 11/22/17 0510 11/22/17 0510 Imaging Last 72 hours Impressions Chest X-Ray 11/22/17 0000 Signed Impressions: Service Date/Time: November 06:32 - CONCLUSION: Stable chest x-ray with a small left basilar opacity likely representing pleural effusion with associated volume loss and/or airspace consolidation. There is also stable diffuse right lung airspace opacity. Perry Kessler MD Chest X-Ray 11/20/17 0000 Signed Impressions: Service Date/Time: Monday, November 20, 2017 07:29 - CONCLUSION: 1. Supportive devices are in appropriate position. 2. Persistent bilateral airspace disease without significant change since 11/16 Anthony Daugherty MD Tubes & Lines: [facility] Tubes & Lines Comment TLC right IJ (Suad Lucas) Physical Exam General Appearance: Comfortable, Obese Appearance Remarks unresponsive on vent (Suad Lucas) Throat Throat Exam: Oral Mucosa [place] & Moist (Suad Lucas) Pulmonary Resp Exam: Breath Sounds Equal, Crackles (Suad Lucas) Cardiology CV Exam: Regular, Normal Sinus Rhythm (Suad Lucas) Gastrointestinal/Abdomen GI Exam: Soft, Non-Tender GI Remarks morbidly obese (Suad Lucas) Musculoskeletal MS Exam: Joints Intact, Unable to Ambulate (Suad Lucas) Integumentary Skin Exam: Warm, Dry (Suad LucasP) Extremeties Extremities Exam: Pedal Pulses Palpable, Moderate Edema, Pitting Edema Extremeties Remarks anasarca (Suad Lucas) Neurologic Neuro Exam: Unresponsive, Sedated (Suad Lucas) Assessment/Plan Assessment Summary: FREDDY/Acute Renal Failure, Fluid/Volume Overload, Hypotension Problem List: (1) FREDDY (acute kidney injury) ICD Codes: N17.9 - Acute kidney failure, unspecified Plan: In January 2017 her renal function was normal. Had FREDDY in September, creatinine at discharge was 1.8 This admission she suffered obstructive uropathy, s/p R urethral stent placement on the 2nd Also noted to have urosepsis with renal hyperperfusion Renal function is stable On Lasix gtt for management of fluid overload, 20 mg/hr We have achieved negative balance. She is non oliguric. Repeat labs tomorrow. Avoid nephrotoxic agents. Use pressors to maintain MAP 65 mmHg, not requiring. (2) Pneumonia ICD Codes: J18.9 - Pneumonia, unspecified organism Status: Acute Plan: ID following, on Ceftazidime and Zyvox. Suspected aspiration PNA from vomiting. (3) Septic shock ICD Codes: A41.9 - Sepsis, unspecified organism; R65.21 - Severe sepsis with septic shock Plan: Pseudomonas sepsis Continue supportive care (4) Respiratory failure ICD Codes: J96.90 - Respiratory failure, unspecified, unspecified whether with hypoxia or hypercapnia Plan: Planned extubated today. (Suad Lucas) Plan patient was seen and examined. Agree with above assessment and plan. Continue Lasix drip. (Mohinder Lopez MD) Suad Lucas Nov 22, 2017 11:13 Mohinder Lopez MD Nov 22, 2017 16:43
[2017-11-23] VITALS (23 sets, daily range): BP systolic 105–175; BP diastolic 58–96; PULSE 111–129; RESP 15–18; TEMP 97.7–98.7; O2SAT 96–100
[2017-11-23] MEDS: RESP: ALBUTEROL 2.5 MG/IPRATROPIUM 0.5 MG NEB (SCH) NEB ×6 (00:08→23:15)
[2017-11-23] MEDS: FUROSEMIDE INJ 100 MG in SODIUM CHLORIDE 0.9% INJ 90 ML IV SCH ×5 (01:37→23:20)
[2017-11-23] MEDS: cefTAZidime INJ 2,000 MG in SODIUM CHLORIDE 0.9% INJ 100 ML IV SCH ×2 (02:38→15:27)
[2017-11-23] MEDS: CHLORHEXIDINE GLUCONATE 2 % 1 PACK (2 CLOTHS) TOP SCH (04:00)
[2017-11-23 05:01] LABS: AUTOMATED NEUTROPHIL # 19.6 TH/MM3 (1.8-7.7); BASOPHIL % 0.2 % (0.0-2.0); EOSINOPHIL # 0.1 TH/MM3 (0-0.4); EOSINOPHIL % 0.2 % (0.0-4.0); HEMATOCRIT 32.4 % (35.0-46.0); HEMOGLOBIN 10.4 GM/DL (11.6-15.3); LYMPH % 4.9 % (9.0-44.0); LYMPHOCYTE # 1.1 TH/MM3 (1.0-4.8); MEAN CORPUSCULAR HEMOGLOBIN 27.7 PG (27.0-34.0); MEAN CORPUSCULAR HGB CONC 32.3 % (32.0-36.0); MEAN PLATELET VOLUME 8.2 FL (7.0-11.0); MONO % 4.9 % (0.0-8.0); MONOCYTE # 1.1 TH/MM3 (0-0.9); NEUT % 89.8 % (16.0-70.0); PLATELET COUNT 196 TH/MM3 (150-450); RED BLOOD COUNT 3.77 MIL/MM3 (4.00-5.30); RED CELL DISTRIBUTION WIDTH 21.5 % (11.6-17.2); WHITE BLOOD COUNT 21.8 TH/MM3 (4.0-11.0)
[2017-11-23 05:24] LABS: BICARBONATE 24.4 MEQ/L (21.0-32.0); CREATININE 2.68 MG/DL (0.50-1.00)
[2017-11-23] MEDS: INSULIN NovoLIN REGULAR SUPPLEMENTAL SCALE SQ SCH ×4 (06:00→23:21)
[2017-11-23 06:08] LABS: CALCIUM-PROTEIN CORRECTED 8.1 MG/DL (8.5-10.1); TOTAL PROTEIN 5.1 GM/DL (6.4-8.2)
[2017-11-23] MEDS: HEPARIN SODIUM - SQ 10,000 UNITS/ML VIAL SQ SCH ×3 (06:16→20:12)
[2017-11-23] MEDS: LINEZOLID 600 MG PREMIX 300 ML IV SCH ×2 (06:16→17:41)
[2017-11-23] MEDS: CHLORHEXIDINE 0.12% (ORAL KIT) 15 ML CUP MT SCH ×2 (08:00→19:20)
[2017-11-23 08:08] LABS: BANDS 5 % (0-6); LYMPHOCYTES 6 % (9-44); METAMYELOCYTES 2 % (0-1); MONOCYTES 4 % (0-8); NEUTROPHIL # MANUAL DIFF 19.4 TH/MM3 (1.8-7.7); POLYS (SEG NEUTROPHILS) 82 % (16-70)
[2017-11-23 08:09] LABS: OVALOCYTES 1+ (NORMAL); SPHEROCYTES OCC (NORMAL)
[2017-11-23] MEDS ORDERED: metroNIDAZOLE 500 MG INJ 100 ML IV SCH (08:15)
--- NOTE | 2017-11-23 08:26 | HHI.CCPN ---
Subjective Remarks/Hospital Course Hospital Course: 67yF with super morbid obesity who has had multiple prior admissions for MRSA pneumonia and respiratory failure presents by EMS for recurrent respiratory failure. She resides in a SNF. She was found unresponsive this morning. She was intubated in the field. In the emergency department she was hypotensive despite ivf resuscitation and required norepinephrine for vasopressor support. she has a wbc 52k, lactate of 6.9, Cr 2.87 (baseline 0.5, prior admission discharge was 1.8). u/a concerning for probable UTI as well. Subjective: 2: remained unstable throughout the night overnight. on 3 vasopressors. this morning, no better, wbc higher. decision by Dr. Cartagena and myself to emergently CT abd/pelvis to rule out source control, despite ongoing hemodynamic instability. CT abd/pelvis demonstrated right hydronephrosis with likely obstructive pyelonephritis. discussed with urology and interventional radiology : likely to decompensate during procedure. unable to physically prone patient. difficult technically with high risk to do supine lateral CT guided perc nephrostomy tube. urology to take to the OR for cysto with stenting. Prior to leaving for OR, patient's central line was pulled accidentally. patient had no other iv access. I/O needles unavailable. emergently replaced central line in right IJ (see separate procedure note for details). due to ongoing shock, patient's blood pressure in 40s systolic during this time. restarted vasopressors after central access regained. went to OR. cultures growing pseudomonas. 2: minimal improvements. taken to OR yesterday for cysto. minimal uop overnight. off epinephrine but remains on 2 vasopressors, in shock. wbc downtrending but > 50k. 11/18: vasopressor requirements are improving slightly. remains on 2 vasopressors and in shock. blood and urine growing pseudomonas, sputum growing MRSA (history of MRSA pneumonia). wbc downtrending, but remains very high. uop marginal. 11/19 Patient remains sedated and intubated. On Levophed 2 mics, Vasopressin 0.04 mics. WBC is trending down. 11/20 Patient remains intubated and on Precedex for sedation. Remains on Vasopressin and Levophed 8 mics. Afebrile. 11/21 No events overnight. Off pressors and off Precedex. Awake, alert tolerated CPAP for several hrs yesterday 11/22 Patient is awake and alert tolerated CPAP yesterday. Off sedation. Placed on Lasix drip 20mg/hr per renal. Afebrile. 11/23 Patient s/p extubation yesterday on 2L oxygen with good sats. Awake and alert. Objective Vital Signs Date Time Temp Pulse Resp B/P (MAP) Pulse Ox O2 Delivery O2 Flow Rate FiO2 11/23/17 07:48 100 Nasal Cannula 2.00 11/23/17 06:00 118 11/23/17 04:00 98.3 17 111/59 (76) 11/22/17 08:34 30 Intake and Output 11/23/17 11/23/17 11/24/17 08:00 16:00 00:00 Intake Total 100 ml Output Total 2150 ml Balance -2050 ml Result Diagram: 11/23/17 0440 11/23/17 0440 Other Results Laboratory Tests Test 11/22/17 08:50 11/22/17 15:00 11/23/17 04:40 Blood Gas Puncture Site RT RADIAL Blood Gas Patient Temperature 97.8 Blood Gas HCO3 20 mmol/L Blood Gas Base Excess -3.9 mmol/L Blood Gas Oxygen Saturation 96 % Arterial Blood pH 7.38 Arterial Blood Partial Pressure CO2 35 mmHg Arterial Blood Partial Pressure O2 108 mmHg Arterial Blood Oxygen Content 14.3 Vol % Arterial Blood Carboxyhemoglobin 1.3 % Arterial Blood Methemoglobin 1.0 % Blood Gas Hemoglobin 10.5 G/DL Oxygen Delivery Device VENTILATOR Blood Gas Ventilator Setting CPAP 5/10PS Blood Gas Inspired Oxygen 30 % Stool C. difficile Toxin (PCR) POSITIVE Stl C. difficile Toxin Epiderm 027 PRESUMPTIVE POSITIVE White Blood Count 21.8 TH/MM3 Red Blood Count 3.77 MIL/MM3 Hemoglobin 10.4 GM/DL Hematocrit 32.4 % Mean Corpuscular Volume 86.0 FL Mean Corpuscular Hemoglobin 27.7 PG Mean Corpuscular Hemoglobin Concent 32.3 % Red Cell Distribution Width 21.5 % Platelet Count 196 TH/MM3 Mean Platelet Volume 8.2 FL Neutrophils (%) (Auto) 89.8 % Lymphocytes (%) (Auto) 4.9 % Monocytes (%) (Auto) 4.9 % Eosinophils (%) (Auto) 0.2 % Basophils (%) (Auto) 0.2 % Neutrophils # (Auto) 19.6 TH/MM3 Lymphocytes # (Auto) 1.1 TH/MM3 Monocytes # (Auto) 1.1 TH/MM3 Eosinophils # (Auto) 0.1 TH/MM3 Basophils # (Auto) 0.0 TH/MM3 CBC Comment AUTO DIFF Differential Total Cells Counted 100 Neutrophils % (Manual) 82 % Band Neutrophils % 5 % Lymphocytes % 6 % Monocytes % 4 % Eosinophils % 1 % Neutrophils # (Manual) 19.4 TH/MM3 Metamyelocytes 2 % Differential Comment FINAL DIFF MANUAL Platelet Estimate NORMAL Platelet Morphology Comment NORMAL Spherocytes OCC Ovalocytes 1+ Blood Urea Nitrogen 51 MG/DL Creatinine 2.68 MG/DL Random Glucose 94 MG/DL Total Protein 5.1 GM/DL Calcium Level 7.0 MG/DL Sodium Level 142 MEQ/L Potassium Level 3.2 MEQ/L Chloride Level 104 MEQ/L Carbon Dioxide Level 24.4 MEQ/L Anion Gap 14 MEQ/L Estimat Glomerular Filtration Rate 18 ML/MIN Protein Corrected Calcium 8.1 MG/DL Prealbumin 26 MG/DL Imaging Last Impressions Chest X-Ray 11/22/17 0000 Signed Impressions: Service Date/Time: November 06:32 - CONCLUSION: Stable chest x-ray with a small left basilar opacity likely representing pleural effusion with associated volume loss and/or airspace consolidation. There is also stable diffuse right lung airspace opacity. Perry Kessler MD Abdomen X-Ray 11/17/17 0000 Signed Impressions: Service Date/Time: Friday, November 17, 2017 19:04 - CONCLUSION: The proximal tip of the double-J stent is either in the expected region of the right renal pelvis or proximal ureter. Allen Mensah MD Abdomen/Pelvis CT 11/16/17 0000 Signed Impressions: Service Date/Time: Thursday, November 16, 2017 08:54 - CONCLUSION: 1. Moderate hydronephrosis right kidney and hydroureter. There is dense material layering within the right renal pelvis and distal ureter of uncertain etiology but could be hemorrhage. Urinalysis and clinical correlation. 2. Hyperdense left renal lesion likely complex cyst. 3. Scattered diverticulosis of the colon. 4. Left basilar consolidation. 5. Left-sided ventral wall hernia. El Nuñez MD Chest CT 11/15/17 1255 Signed Impressions: Service Date/Time: November 14:24 - CONCLUSION: 1. New consolidative infiltrate in the posterior right upper lobe most characteristic of pneumonia. 2. Consolidation also noted in the left lower lobe which is increased from the prior CT. 3. New abnormal streaky density in the posterior upper abdomen located posterior to the liver. This is nonspecific but could represent infection or inflammatory change. 4. Cardiomegaly. Chintan Marshall MD Head CT 11/15/17 1134 Signed Impressions: Service Date/Time: November 14:13 - CONCLUSION: 1. No acute hemorrhage or mass effect. 2. Atrophy and chronic small vessel ischemic change 3. Air-fluid levels in the maxillary sinuses most characteristic of acute sinusitis. Chintan Marshall MD Objective Remarks GENERAL: Patient is 67 yo lying in bed in NAD SKIN: Warm and dry. HEAD: Normocephalic. EYES: No scleral icterus. No injection or drainage. NECK: Supple, trachea midline. No JVD or lymphadenopathy. CARDIOVASCULAR: Regular rate and rhythm without murmurs, gallops, or rubs. RESPIRATORY: Breath sounds equal bilaterally. No accessory muscle use. GASTROINTESTINAL: Abdomen soft, non-tender, nondistended. MUSCULOSKELETAL: No cyanosis, + edema. Neuro: Awake and alert A/P Assessment and Plan Neuro: Metabolic Encephalopathy - improved - Awake and alert Resp: Acute hypoxic and hypercarbic respiratory failure- Extubated 11/22 Healthcare Associated Pneumonia - Continue with oxygen keep sat >92% Bronchodilators, IS NIPPV PRN for resp distress - sputum culture: MRSA CV: s/p Septic Shock - Atrial fibrillation with rapid ventricular response - On Lopressor 25mg Q12 monitor HR and BP keep MAP>65mmHg lactic acid level: 1.4 Hydrocortisone 25mg Q12 Renal: Acute Kidney Injury Acute pyelonephritis Monitor renal function, I/O's, avoid nephrotoxins Cr: 2.68 today from 2.83 on Lasix 20mg/hr, give KCL 40meq IV for K 3.2 - s/p Emergent cysto with stent 11/16, Urology is following Renal is following- Dr. Lopez FEN/GI: Super Morbid Obesity Lactic Acidosis Anion-gap Metabolic acidosis Acute intravascular volume overload Severe acute protein calorie malnutrition -On tube feeds- Nepro with goal rate 40ml/hr -Pepcid for GI prophylaxis Heme/ID: History of prior MRSA pneumonia Acute pyelonephritis Pseudomonas bacteremia Positive C-diff - ID on board. - abx per Nemani. On Zyvox, Fortaz, PO Vanco. Monitor for signs of infections ( Fever, WBC) -2/6 BC :NGTD -2/3 BC: Coag negative staph 1/ bottles..likely contaminant - 2/ Urine cx :Pseudomonas - 2/1 blood cultures: pseudomonas - 2/1 urine culture: pseudomonas - 2/1 sputum culture: MRSA Endocrine: Hyperglycemia of Critical Illness - q6h SSI, med scale Prophylaxis: SCDs, SQH Pepcid Lines: - [facility] PT/OT eval and treat Level 3 Juma Pak MD Nov 23, 2017 08:26
[2017-11-23] MEDS ORDERED: POTASSIUM CHLORIDE INJ 40 MEQ in SODIUM CHLORID 0.9% 500 ML INJ 500 ML IV-CENTRAL ONE (09:00)
[2017-11-23] MEDS ORDERED: VANCOMYCIN 500 MG VIAL (FOR ORAL USE ONLY) PO SCH (09:00)
--- NOTE | 2017-11-23 09:11 | HHI.IDPN ---
Subjective Subjective Remarks is a 67 y/o CF morbidly obese with BMI 58.7 kg/m2 who has had multiple prior admissions for MRSA pneumonia and respiratory failure presents by EMS for recurrent respiratory failure. She resides in a SNF. She was found unresponsive this morning. She was intubated in the field. She has a wbc 52k, lactate of 6.9, Cr 2.87 (baseline 0.5, prior admission discharge was 1.8). u/a concerning for probable UTI as well. In the emergency department patient received 3 IV fluid boluses and continued to be hypotensive needing vasopressor support. Upon review of records it appears she was recently treated in Oct 15 for UTI at [facility] with macrobid. EMAR from [facility] with no antibiotics but was on lactobacillus. Spoke to CHILO Moura at [facility] patient has 2-3 episodes of vomiting yesterday at [facility] and received antiemetics. T:98, BP: 110/62, 96% RA, BS: 108. Patient was not on any antibiotics. No diarrhea. Lasix increased due to pedal edema. No cultures drawn. No flu test done per records. She has a prior h/o admission at [facility] admitted in late 2016 when she was in the ICU intubated needing a trach eventually. During that admission patient was treated for MRSA pneumonia but also she has a history of pseudomonas infections in the past. Pseudomonas in the past with pansensitive cultures but given her multiple hospitalization and multiple courses of antibiotics she stands at this for multidrug-resistant Pseudomonas. At the time of my evaluation patient is in the IMC appears very critically ill intubated. Patient is on vasopressin 0.04, we will fed 40 mics, epinephrine 10/9, amiodarone drip at 1 g. Patient has 0 urine output at the present time. She has small white secretions. She has no diarrhea. Abdomen appears benign. No response to verbal or other stimuli for me but RN reports when daughter was here earlier she opened eyes, moved limbs and squeezed RNs fingers. Currently sedation is off but patient in ARF with no urine output. Infectious disease consultation was requested for evaluation and management of septic shock, pneumonia. Notes reviewed D/W RN Extubated. Vocalizes and answers basic questions. Off pressors. Solitario in place. No fevers No rash Diarrhea several episodes yday. Cdiff now positive. Antibiotics Current Medications Medications (Trade) Dose Ordered Sig/Mirta Route Start Time Stop Time Status Last Admin (Brethine Inj) 1 mg UNSCH PRN SQ 11/15/17 12:45 (D50w (Vial) Inj) 25 ml UNSCH PRN IV PUSH 11/15/17 14:00 (NovoLIN R SUPPLEMENTAL SCALE) 1 Q6HR SQ 11/15/17 18:00 11/20/17 17:43 (Duoneb Neb) 1 ampule Q2HR NEB PRN INH 11/15/17 14:00 11/17/17 23:39 (Tylenol) 650 mg Q6H PRN PO 11/15/17 14:00 11/22/17 07:57 (Pepcid Inj) 10 mg Q12HR IV PUSH 11/15/17 21:00 11/23/17 09:56 (Zofran Inj) 4 mg Q6H PRN IV PUSH 11/15/17 14:00 (Heparin Inj) 5,000 units Q8H SQ 11/15/17 15:00 11/23/17 06:16 Miscellaneous Information 1 Q361D XX 11/15/17 14:00 11/15/17 19:00 (Chlorhexidine 2% Cloth) Taper DAILY@04 TOP 11/16/17 04:00 11/12/18 03:59 11/23/17 04:00 (Chlorhexidine 2% Cloth) 3 pack UNSCH PRN TOP 11/15/17 14:00 (Zelda-Colace) 1 tab BID PO 11/15/17 21:00 11/23/17 09:55 (Milk Of Magnesia Liq) 30 ml Q12H PRN PO 11/15/17 14:00 (Senokot) 17.2 mg Q12H PRN PO 11/15/17 14:00 (Dulcolax Supp) 10 mg DAILY PRN RECTAL 11/15/17 14:00 (Lactulose Liq) 30 ml DAILY PRN PO 11/15/17 14:00 Linezolid 300 ml @ 300 mls/hr Q12H IV 11/16/17 07:00 11/23/17 06:16 (Peridex 0.12% Liq) 15 ml BID@08,20 MT 11/16/17 20:00 11/22/17 19:45 Ceftazidime 2000 mg/Sodium Chloride 100 ml @ 200 mls/hr Q12H IV 11/19/17 15:00 11/23/17 02:38 (SoluCORTEF INJ) 25 mg Q12HR IV PUSH 11/21/17 09:00 11/23/17 09:55 (Lopressor) 25 mg Q12HR PO 11/21/17 09:00 11/23/17 09:55 Furosemide 100 mg/ Sodium Chloride 100 ml @ 20 mls/hr CONTINUOUS IV 11/21/17 11:00 11/23/17 12:21 (Duoneb Neb) 1 ampule Q4HR NEB NEB 11/22/17 12:00 11/23/17 07:47 Non-Formulary Medication VANCOMYCIN STOCK SOLUT... QID PO 11/23/17 09:00 11/23/17 11:11 Lines RIJ TLC Past Medical History Past Medical History Chronic asthma home oxygen Atrial fibrillation Hyperlipidemia Hypertension excellent diabetes mellitus GERD Morbid obesity BMI 55 Past Surgical History Appendectomy Hernia surgery Tracheostomy placement Allergies: Coded Allergies: penicillin G (Unverified Allergy, Severe, 05/29/17) Objective . Vital Signs Date Time Temp Pulse Resp B/P (MAP) Pulse Ox O2 Delivery O2 Flow Rate FiO2 11/23/17 07:48 100 Nasal Cannula 2.00 11/23/17 06:00 118 11/23/17 04:00 116 11/23/17 04:00 98.3 116 17 111/59 (76) 96 11/23/17 02:00 118 11/23/17 00:09 100 Nasal Cannula 3.00 11/23/17 00:00 111 11/23/17 00:00 98.7 111 15 124/87 (99) 100 11/22/17 22:00 108 11/22/17 20:00 127 11/22/17 20:00 98.9 127 17 108/76 (87) 100 11/22/17 19:35 100 Nasal Cannula 3.00 11/22/17 18:00 122 11/22/17 18:00 122 16 96 11/22/17 17:00 117 16 100 11/22/17 17:00 117 11/22/17 16:00 126 11/22/17 16:00 126 19 97 11/22/17 15:00 116 11/22/17 15:00 98.0 116 19 123/65 (84) 98 2/8/18 14:00 107 21 121/79 (93) 98 11/22/17 14:00 107 11/22/17 13:01 104 19 144/67 (92) 97 11/22/17 13:01 104 11/22/17 13:00 109 11/22/17 13:00 109 18 97 11/22/17 12:00 97.9 116 20 111/78 (89) 97 11/22/17 12:00 116 11/22/17 11:00 112 11/22/17 11:00 112 22 107/66 (80) 98 11/22/17 10:53 98 Nasal Cannula 3.00 11/22/17 10:42 98 Nasal Cannula 3 11/22/17 10:00 113 11/22/17 10:00 113 17 109/65 (80) 97 . Laboratory Tests Test 11/22/17 05:10 11/23/17 04:40 White Blood Count 23.6 TH/MM3 21.8 TH/MM3 Red Blood Count 3.63 MIL/MM3 3.77 MIL/MM3 Hemoglobin 10.2 GM/DL 10.4 GM/DL Hematocrit 30.9 % 32.4 % Mean Corpuscular Volume 85.1 FL 86.0 FL Mean Corpuscular Hemoglobin 28.0 PG 27.7 PG Mean Corpuscular Hemoglobin Concent 32.9 % 32.3 % Red Cell Distribution Width 21.5 % 21.5 % Platelet Count 193 TH/MM3 196 TH/MM3 Mean Platelet Volume 8.1 FL 8.2 FL Neutrophils (%) (Auto) 91.2 % 89.8 % Lymphocytes (%) (Auto) 4.4 % 4.9 % Monocytes (%) (Auto) 4.2 % 4.9 % Eosinophils (%) (Auto) 0.1 % 0.2 % Basophils (%) (Auto) 0.1 % 0.2 % Neutrophils # (Auto) 21.5 TH/MM3 19.6 TH/MM3 Lymphocytes # (Auto) 1.0 TH/MM3 1.1 TH/MM3 Monocytes # (Auto) 1.0 TH/MM3 1.1 TH/MM3 Eosinophils # (Auto) 0.0 TH/MM3 0.1 TH/MM3 Basophils # (Auto) 0.0 TH/MM3 0.0 TH/MM3 CBC Comment AUTO DIFF AUTO DIFF Differential Total Cells Counted 100 100 Neutrophils % (Manual) 86 % 82 % Band Neutrophils % 2 % 5 % Lymphocytes % 4 % 6 % Monocytes % 2 % 4 % Neutrophils # (Manual) 22.2 TH/MM3 19.4 TH/MM3 Metamyelocytes 4 % 2 % Myelocytes 2 % Differential Comment FINAL DIFF MANUAL FINAL DIFF MANUAL Hypersegmented Polys 1+ Platelet Estimate NORMAL NORMAL Platelet Morphology Comment NORMAL NORMAL Eosinophils % 1 % Spherocytes OCC Ovalocytes 1+ Laboratory Tests Test 11/21/17 21:40 11/22/17 05:10 11/23/17 04:40 Potassium Level 3.0 MEQ/L 3.4 MEQ/L 3.2 MEQ/L Phosphorus Level 3.3 MG/DL 3.2 MG/DL Blood Urea Nitrogen 48 MG/DL 51 MG/DL Creatinine 2.83 MG/DL 2.68 MG/DL Random Glucose 112 MG/DL 94 MG/DL Total Protein 4.7 GM/DL 5.1 GM/DL Calcium Level 7.0 MG/DL 7.0 MG/DL Magnesium Level 1.4 MG/DL Sodium Level 140 MEQ/L 142 MEQ/L Chloride Level 106 MEQ/L 104 MEQ/L Carbon Dioxide Level 22.4 MEQ/L 24.4 MEQ/L Anion Gap 12 MEQ/L 14 MEQ/L Estimat Glomerular Filtration Rate 17 ML/MIN 18 ML/MIN Protein Corrected Calcium 8.3 MG/DL 8.1 MG/DL Prealbumin 26 MG/DL Microbiology Date/Time Source Procedure Growth Status 11/20/17 16:24 Blood Peripheral Aerobic Blood Culture - Preliminary NO GROWTH IN 2 DAYS Resulted 11/20/17 16:24 Blood Peripheral Anaerobic Blood Culture - Preliminary NO GROWTH IN 2 DAYS Resulted 11/20/17 15:00 Blood Peripheral Aerobic Blood Culture - Preliminary NO GROWTH IN 2 DAYS Resulted 11/20/17 15:00 Blood Peripheral Anaerobic Blood Culture - Preliminary NO GROWTH IN 2 DAYS Resulted Imaging Last Impressions Abdomen X-Ray 11/17/17 0000 Signed Impressions: Service Date/Time: Friday, November 17, 2017 19:04 - CONCLUSION: The proximal tip of the double-J stent is either in the expected region of the right renal pelvis or proximal ureter. Allen Mensah MD Chest X-Ray 11/16/17 0000 Signed Impressions: Service Date/Time: Thursday, November 16, 2017 12:43 - CONCLUSION: 1. Right IJ central line tip near the atriocaval junction. 2. No gross pneumothorax or significant interval change. Riccardo Stack MD Abdomen/Pelvis CT 11/16/17 0000 Signed Impressions: Service Date/Time: Thursday, November 16, 2017 08:54 - CONCLUSION: 1. Moderate hydronephrosis right kidney and hydroureter. There is dense material layering within the right renal pelvis and distal ureter of uncertain etiology but could be hemorrhage. Urinalysis and clinical correlation. 2. Hyperdense left renal lesion likely complex cyst. 3. Scattered diverticulosis of the colon. 4. Left basilar consolidation. 5. Left-sided ventral wall hernia. El Nuñez MD Chest CT 11/15/17 1255 Signed Impressions: Service Date/Time: November 14:24 - CONCLUSION: 1. New consolidative infiltrate in the posterior right upper lobe most characteristic of pneumonia. 2. Consolidation also noted in the left lower lobe which is increased from the prior CT. 3. New abnormal streaky density in the posterior upper abdomen located posterior to the liver. This is nonspecific but could represent infection or inflammatory change. 4. Cardiomegaly. Chintan Marshall MD Head CT 11/15/17 1134 Signed Impressions: Service Date/Time: November 14:13 - CONCLUSION: 1. No acute hemorrhage or mass effect. 2. Atrophy and chronic small vessel ischemic change 3. Air-fluid levels in the maxillary sinuses most characteristic of acute sinusitis. Chintan Marshall MD Physical Exam GENERAL: Morbidly obese patient, intubated. NAD. Opens eyes when stimulated. Not following SKIN: Ecchymoses noted. Left thigh large 15x10 cm approx area of erythema, abrasion of skin noted, looks better Skin folds in groin and breast with erythema and fungal overgrowth, improving HEAD: Atraumatic. Normocephalic. No temporal or scalp tenderness. EYES: Pupils equal round and reactive. No icterus, pale conjunctiva. Large neck. ENT: No nasal drainage Prior trach site ok. NECK: Trachea midline. Supple, nontender, no meningeal signs. CARDIOVASCULAR: HS audible and distant. RESPIRATORY: Clear to auscultation anteriorly. Distant breath sounds. GASTROINTESTINAL: Abdomen obese, diffuse tenderness, midline ventral hernia. Pannus noted. MUSCULOSKELETAL: Pedal edema noted. No cyanosis NEUROLOGICAL: Alert, follows commands, moves all 4 extremities. IV line sites with no e.o infection. : Solitario in place color looks better Assessment & Plan Remarks IMPRESSION PSAE sepsis, with Septic shock with multiorgan dysfunction syndrome due to complicated UTI - has R pyonephrosis, S/P cysto and stent placement - still on pressors but decreasing dose, WBC lower, temps better, creatinine decreasing Pneumonia, C/S MRSA 1. Aspiration pneumonia highly likely given multiple episodes of [facility] 2. Possible post influenza necrotizing pneumonia. 3. Health care pneumonia. Diarrhea: Cdiff positive. Staph coag neg bacteremia: likely contaminant. Acute respiratory failure on vent Acute renal failure with anuria, due to sepsis and shock. Morbid obesity BMI 58.7 KG per meter squared Nausea vomiting prior to admission Recommendations: Continue Ceftazidime IV Continue Zyvox IV (MRSA pneumonia in a ARF patient with oliguria, additional exotoxin neutralization effect for Staph, MRSA and Strep pneumonia) Cdiff positive: start oral Vanco Follow cultures Follow clinically. D/W Amy Crenshaw MD Nov 23, 2017 09:11
--- NOTE | 2017-11-23 09:26 | HHI.NPPN ---
Subjective General Problems: Edema Renal Failure: Acute Interval History She was extubated, is awake on nasal cannula. Creatinine slightly improved. Diuresing well but still with fluid overload. Lasix gtt continues. (Suad Lucas) Review of Systems General General Remarks unable to obtain (Suad Lucas) Objective Data Data Vital Signs Date Time Temp Pulse Resp B/P (MAP) Pulse Ox O2 Delivery O2 Flow Rate FiO2 11/23/17 07:48 100 Nasal Cannula 2.00 11/23/17 06:00 118 11/23/17 04:00 116 11/23/17 04:00 98.3 116 17 111/59 (76) 96 11/23/17 02:00 118 11/23/17 00:09 100 Nasal Cannula 3.00 11/23/17 00:00 111 11/23/17 00:00 98.7 111 15 124/87 (99) 100 11/22/17 22:00 108 11/22/17 20:00 127 11/22/17 20:00 98.9 127 17 108/76 (87) 100 11/22/17 19:35 100 Nasal Cannula 3.00 11/22/17 18:00 122 11/22/17 18:00 122 16 96 11/22/17 17:00 117 16 100 11/22/17 17:00 117 11/22/17 16:00 126 11/22/17 16:00 126 19 97 11/22/17 15:00 116 11/22/17 15:00 98.0 116 19 123/65 (84) 98 11/22/17 14:00 107 21 121/79 (93) 98 11/22/17 14:00 107 11/22/17 13:01 104 19 144/67 (92) 97 11/22/17 13:01 104 11/22/17 13:00 109 11/22/17 13:00 109 18 97 11/22/17 12:00 97.9 116 20 111/78 (89) 97 11/22/17 12:00 116 11/22/17 11:00 112 11/22/17 11:00 112 22 107/66 (80) 98 11/22/17 10:53 98 Nasal Cannula 3.00 11/22/17 10:42 98 Nasal Cannula 3 11/22/17 10:00 113 11/22/17 10:00 113 17 109/65 (80) 97 (Suad Lucas) -: 11/23/17 0440 11/23/17 0440 Imaging Last 72 hours Impressions Chest X-Ray 11/22/17 0000 Signed Impressions: Service Date/Time: November 06:32 - CONCLUSION: Stable chest x-ray with a small left basilar opacity likely representing pleural effusion with associated volume loss and/or airspace consolidation. There is also stable diffuse right lung airspace opacity. Perry Kessler MD Tubes & Lines: Solitario Tubes & Lines Comment TLC right IJ Drip Comment Lasix at 20 mg/hr (Suad Lucas) Physical Exam General Appearance: Well Nourished, Comfortable, Obese (Suad Lucas) Eyes Eye Exam: Pupils Equal (Suad Lucas) Throat Throat Exam: Oral Mucosa [place] & Moist (Suad Lucas) Neck Neck Exam: Neck Supple (Suad Lucas) Pulmonary Resp Exam: Breath Sounds Equal, No Distress, Crackles Resp Remarks In bases, expiratory wheezing (Suad Lucas) Cardiology CV Exam: Regular, Good Perfusion, Tachycardia (Suad Lucas) Gastrointestinal/Abdomen GI Exam: Soft, Non-Tender, Bowel Sounds Present GI Remarks morbidly obese (Suad Lucas) Musculoskeletal MS Exam: Joints Intact, Normal Tone, Unable to Ambulate (Suad Lucas) Integumentary Skin Exam: Warm, Dry (Suad Lucas) Extremeties Extremities Exam: Pedal Pulses Palpable, Moderate Edema, Pitting Edema, Dependent Edema Extremeties Remarks anasarca , 4+ pitting (Suad Lucas) Neurologic Neuro Exam: Alert, Awake, Oriented, Speech Clear (Suad Lucas) Psychiatric Psych Exam: Appropriate Responses (Suad Lucas) Assessment/Plan Discussed Condition With: Patient Assessment Summary: FREDDY/Acute Renal Failure, Fluid/Volume Overload, Hypotension Electrolyte Assessment: Hypokalemia Problem List: (1) FREDDY (acute kidney injury) ICD Codes: N17.9 - Acute kidney failure, unspecified Plan: In January 2017 her renal function was normal. Had FREDDY in September, creatinine at discharge was 1.8 Obstructive uropathy, s/p R urethral stent placement on the 2nd FREDYD also due to urosepsis with renal hyperperfusion Renal function improved slightly Needs continued diuresis, on lasix drip, 20 mg IV per hr. Give a dose of metolazone Minimize excess fluid intake, change KCL replacement to orally Negative balance continues. She is non oliguric. Repeat labs daily Avoid nephrotoxic agents. Use pressors to maintain MAP 65 mmHg, not requiring. (2) Pneumonia ICD Codes: J18.9 - Pneumonia, unspecified organism Status: Acute Plan: ID following, on Ceftazidime and Zyvox. Suspected aspiration PNA from vomiting. (3) Septic shock ICD Codes: A41.9 - Sepsis, unspecified organism; R65.21 - Severe sepsis with septic shock Plan: Pseudomonas sepsis Continue supportive care (4) Respiratory failure ICD Codes: J96.90 - Respiratory failure, unspecified, unspecified whether with hypoxia or hypercapnia Plan: Successfully extubated Monitor respiratory status (Suad Lucas) Plan patient was seen and examined. Renal function is improving. Negative fluid balance has been achieved with Lasix drip. She has been extubated. Antibiotics per ID: MRSA pneumonia, and pseudomonas UTI with sepsis. Avoid nephrotoxic agents. Continue Lasix drip. (Mohinder Lopez MD) Suad Lucas Nov 23, 2017 09:26 Mohinder Lopez MD Nov 23, 2017 14:56
[2017-11-23] MEDS ORDERED: POTASSIUM CHLORIDE 20 MEQ CONTROLLED RELEASE TAB PO ONE (09:30)
[2017-11-23] MEDS ORDERED: METOLAZONE 5 MG TAB PO ONE (09:30)
[2017-11-23] MEDS: DOCUSATE SODIUM 50 MG/SENNA 8.6 MG TAB PO SCH ×2 (09:55→20:12)
[2017-11-23] MEDS: HYDROCORTISONE SOD SUCCINATE 100 MG VIAL IV PUSH SCH ×2 (09:55→20:12)
[2017-11-23] MEDS: METOPROLOL TARTRATE 25 MG TAB PO SCH ×2 (09:55→20:12)
[2017-11-23] MEDS: FAMOTIDINE 20 MG/2 ML VIAL IV PUSH SCH ×2 (09:56→20:17)
[2017-11-23] MEDS: [UNRECOGNIZED DRUG - REMARK] PO SCH ×4 (11:11→20:13)
[2017-11-24] VITALS (21 sets, daily range): BP systolic 96–146; BP diastolic 48–86; PULSE 106–126; RESP 14–24; TEMP 97.8–98.5; O2SAT 93–100
[2017-11-24] MEDS: CHLORHEXIDINE GLUCONATE 2 % 1 PACK (2 CLOTHS) TOP SCH (00:39)
[2017-11-24] MEDS: cefTAZidime INJ 2,000 MG in SODIUM CHLORIDE 0.9% INJ 100 ML IV SCH ×2 (02:45→14:48)
[2017-11-24] MEDS: RESP: ALBUTEROL 2.5 MG/IPRATROPIUM 0.5 MG NEB (SCH) NEB ×5 (03:28→19:32)
[2017-11-24] MEDS: FUROSEMIDE INJ 100 MG in SODIUM CHLORIDE 0.9% INJ 90 ML IV SCH ×5 (03:44→23:42)
[2017-11-24] MEDS: INSULIN NovoLIN REGULAR SUPPLEMENTAL SCALE SQ SCH ×4 (05:17→23:26)
[2017-11-24] MEDS: HEPARIN SODIUM - SQ 10,000 UNITS/ML VIAL SQ SCH ×3 (05:49→23:26)
[2017-11-24] MEDS: LINEZOLID 600 MG PREMIX 300 ML IV SCH ×2 (05:49→18:11)
--- NOTE | 2017-11-24 06:05 | RADRPT ---
EXAM DATE/TIME: 11/24/2017 03:36 [facility] COMPARISON: CHEST SINGLE AP, November 22, 2017, 6:32. INDICATIONS : Shortness of breath, possible pulmonary disease. MEDICAL HISTORY : Hypertension. Diabetes mellitus type II. SURGICAL HISTORY : None. ENCOUNTER: Subsequent ACUITY: 1 week PAIN SCORE: Non-responsive. LOCATION: Bilateral chest FINDINGS: A single view of the chest demonstrates right central line in superior vena cava. Basilar airspace di sease improved on the right. Persistent left base consolidation. Removal of NG tube and nasogastric t ube. CONCLUSION: 1. Improved right lung consolidation. Persistent consolidation left base. Interval extubation. Sachin Gonzalez MD on November 24, 2017 at 6:02 Board Certified Radiologist. This report was verified electronically.
[2017-11-24 07:35] LABS: AUTOMATED NEUTROPHIL # 20.3 TH/MM3 (1.8-7.7); BASOPHIL % 0.1 % (0.0-2.0); EOSINOPHIL # 0.2 TH/MM3 (0-0.4); EOSINOPHIL % 0.9 % (0.0-4.0); HEMATOCRIT 31.3 % (35.0-46.0); HEMOGLOBIN 10.1 GM/DL (11.6-15.3); LYMPH % 5.8 % (9.0-44.0); LYMPHOCYTE # 1.3 TH/MM3 (1.0-4.8); MEAN CORPUSCULAR HEMOGLOBIN 27.9 PG (27.0-34.0); MEAN CORPUSCULAR HGB CONC 32.4 % (32.0-36.0); MONO % 3.9 % (0.0-8.0); MONOCYTE # 0.9 TH/MM3 (0-0.9); NEUT % 89.3 % (16.0-70.0); PLATELET COUNT 212 TH/MM3 (150-450); RED BLOOD COUNT 3.64 MIL/MM3 (4.00-5.30); RED CELL DISTRIBUTION WIDTH 21.1 % (11.6-17.2); WHITE BLOOD COUNT 22.8 TH/MM3 (4.0-11.0)
[2017-11-24 07:53] LABS: BICARBONATE 26.1 MEQ/L (21.0-32.0); CALCIUM 7.3 MG/DL (8.5-10.1); CREATININE 2.7 MG/DL (0.50-1.00)
[2017-11-24] MEDS: CHLORHEXIDINE 0.12% (ORAL KIT) 15 ML CUP MT SCH ×2 (08:00→19:30)
[2017-11-24 08:07] LABS: CALCIUM-PROTEIN CORRECTED 8.3 MG/DL (8.5-10.1); TOTAL PROTEIN 5.2 GM/DL (6.4-8.2)
[2017-11-24] MEDS: FAMOTIDINE 20 MG/2 ML VIAL IV PUSH SCH ×2 (08:16→20:34)
[2017-11-24] MEDS: METOPROLOL TARTRATE 25 MG TAB PO SCH ×2 (08:16→20:35)
[2017-11-24] MEDS: HYDROCORTISONE SOD SUCCINATE 100 MG VIAL IV PUSH SCH ×2 (08:16→20:35)
[2017-11-24] MEDS: DOCUSATE SODIUM 50 MG/SENNA 8.6 MG TAB PO SCH ×2 (08:16→19:31)
[2017-11-24] MEDS: VANCOMYCIN 25 MG/ML SUSP 100 ML BOTTLE PO SCH ×4 (08:17→20:35)
[2017-11-24 09:49] LABS: BANDS 6 % (0-6); LYMPHOCYTES 2 % (9-44); MONOCYTES 4 % (0-8); MYELOCYTES 4 % (0-0); NEUTROPHIL # MANUAL DIFF 21.2 TH/MM3 (1.8-7.7); POLYS (SEG NEUTROPHILS) 83 % (16-70)
--- NOTE | 2017-11-24 10:28 | HHI.IDPN ---
Subjective Subjective Remarks is a 67 y/o CF morbidly obese with BMI 58.7 kg/m2 who has had multiple prior admissions for MRSA pneumonia and respiratory failure presents by EMS for recurrent respiratory failure. She resides in a SNF. She was found unresponsive this morning. She was intubated in the field. She has a wbc 52k, lactate of 6.9, Cr 2.87 (baseline 0.5, prior admission discharge was 1.8). u/a concerning for probable UTI as well. In the emergency department patient received 3 IV fluid boluses and continued to be hypotensive needing vasopressor support. Upon review of records it appears she was recently treated in Oct 15 for UTI at [facility] with macrobid. EMAR from [facility] with no antibiotics but was on lactobacillus. Spoke to CHILO Moura at [facility] patient has 2-3 episodes of vomiting yesterday at [facility] and received antiemetics. T:98, BP: 110/62, 96% RA, BS: 108. Patient was not on any antibiotics. No diarrhea. Lasix increased due to pedal edema. No cultures drawn. No flu test done per records. She has a prior h/o admission at [place] admitted in late 2016 when she was in the ICU intubated needing a trach eventually. During that admission patient was treated for MRSA pneumonia but also she has a history of pseudomonas infections in the past. Pseudomonas in the past with pansensitive cultures but given her multiple hospitalization and multiple courses of antibiotics she stands at this for multidrug-resistant Pseudomonas. At the time of my evaluation patient is in the IMC appears very critically ill intubated. Patient is on vasopressin 0.04, we will fed 40 mics, epinephrine 10/9, amiodarone drip at 1 g. Patient has 0 urine output at the present time. She has small white secretions. She has no diarrhea. Abdomen appears benign. No response to verbal or other stimuli for me but RN reports when daughter was here earlier she opened eyes, moved limbs and squeezed RNs fingers. Currently sedation is off but patient in ARF with no urine output. Infectious disease consultation was requested for evaluation and management of septic shock, pneumonia. Notes reviewed. D/W RN Vocalizes and answers basic questions. Off pressors. on lasix drip. Solitario in place. No fevers No rash Diarrhea Cdiff now positive. Antibiotics Current Medications Medications (Trade) Dose Ordered Sig/Mirta Route Start Time Stop Time Status Last Admin (Brethine Inj) 1 mg UNSCH PRN SQ 11/15/17 12:45 (D50w (Vial) Inj) 25 ml UNSCH PRN IV PUSH 11/15/17 14:00 (NovoLIN R SUPPLEMENTAL SCALE) 1 Q6HR SQ 11/15/17 18:00 11/20/17 17:43 (Duoneb Neb) 1 ampule Q2HR NEB PRN INH 11/15/17 14:00 11/17/17 23:39 (Tylenol) 650 mg Q6H PRN PO 11/15/17 14:00 11/22/17 07:57 (Pepcid Inj) 10 mg Q12HR IV PUSH 11/15/17 21:00 11/24/17 08:16 (Zofran Inj) 4 mg Q6H PRN IV PUSH 11/15/17 14:00 (Heparin Inj) 5,000 units Q8H SQ 11/15/17 15:00 11/24/17 05:49 Miscellaneous Information 1 Q361D XX 11/15/17 14:00 11/15/17 19:00 (Chlorhexidine 2% Cloth) Taper DAILY@04 TOP 11/16/17 04:00 11/12/18 03:59 11/23/17 04:00 (Chlorhexidine 2% Cloth) 3 pack UNSCH PRN TOP 11/15/17 14:00 (Zelda-Colace) 1 tab BID PO 11/15/17 21:00 11/23/17 20:12 (Milk Of Magnesia Liq) 30 ml Q12H PRN PO 11/15/17 14:00 (Senokot) 17.2 mg Q12H PRN PO 11/15/17 14:00 (Dulcolax Supp) 10 mg DAILY PRN RECTAL 11/15/17 14:00 (Lactulose Liq) 30 ml DAILY PRN PO 11/15/17 14:00 Linezolid 300 ml @ 300 mls/hr Q12H IV 11/16/17 07:00 11/24/17 05:49 (Peridex 0.12% Liq) 15 ml BID@08,20 MT 11/16/17 20:00 11/22/17 19:45 Ceftazidime 2000 mg/Sodium Chloride 100 ml @ 200 mls/hr Q12H IV 11/19/17 15:00 11/24/17 02:45 (SoluCORTEF INJ) 25 mg Q12HR IV PUSH 11/21/17 09:00 11/24/17 08:16 (Lopressor) 25 mg Q12HR PO 11/21/17 09:00 11/24/17 08:16 Furosemide 100 mg/ Sodium Chloride 100 ml @ 20 mls/hr CONTINUOUS IV 11/21/17 11:00 11/24/17 09:29 (Duoneb Neb) 1 ampule Q4HR NEB NEB 11/22/17 12:00 11/24/17 07:36 (Vancomycin 25 Mg/ml Liq) 125 mg QID PO 11/24/17 09:00 11/24/17 08:17 Lines RIJ TLC Past Medical History Past Medical History Chronic asthma home oxygen Atrial fibrillation Hyperlipidemia Hypertension excellent diabetes mellitus GERD Morbid obesity BMI 55 Past Surgical History Appendectomy Hernia surgery Tracheostomy placement Allergies: Coded Allergies: penicillin G (Unverified Allergy, Severe, 05/29/17) Objective . Vital Signs Date Time Temp Pulse Resp B/P (MAP) Pulse Ox O2 Delivery O2 Flow Rate FiO2 11/24/17 10:01 106 16 119/52 (74) 100 11/24/17 09:01 122 16 137/59 (85) 100 11/24/17 08:03 115 15 103/59 (74) 100 11/24/17 08:00 98.0 116 14 97/61 (73) 100 11/24/17 07:36 98 Nasal Cannula 2.00 11/24/17 06:00 115 11/24/17 04:00 98.0 119 16 126/67 (86) 100 11/24/17 04:00 119 11/24/17 03:28 100 Nasal Cannula 2.00 11/24/17 02:00 109 11/24/17 00:00 114 11/24/17 00:00 98.3 114 16 113/86 (95) 100 11/23/17 23:15 100 Nasal Cannula 2.00 11/23/17 22:00 113 11/23/17 20:00 98.0 116 18 150/90 (110) 100 11/23/17 20:00 116 11/23/17 19:32 100 Nasal Cannula 2.00 11/23/17 19:00 111 11/23/17 19:00 111 17 121/67 (85) 100 11/23/17 18:00 116 17 124/80 (95) 100 11/23/17 18:00 116 11/23/17 17:00 116 17 155/69 (97) 100 11/23/17 17:00 117 11/23/17 16:00 97.8 117 17 105/71 (82) 100 11/23/17 16:00 117 11/23/17 15:00 117 17 132/79 (96) 100 11/23/17 15:00 117 11/23/17 14:00 119 17 136/75 (95) 100 11/23/17 14:00 119 11/23/17 13:00 124 17 146/90 (108) 99 11/23/17 13:00 121 11/23/17 12:00 129 11/23/17 12:00 97.8 128 18 175/91 (119) 100 11/23/17 11:00 117 11/23/17 11:00 117 17 131/68 (89) 100 . Laboratory Tests Test 11/23/17 04:40 11/24/17 06:00 White Blood Count 21.8 TH/MM3 22.8 TH/MM3 Red Blood Count 3.77 MIL/MM3 3.64 MIL/MM3 Hemoglobin 10.4 GM/DL 10.1 GM/DL Hematocrit 32.4 % 31.3 % Mean Corpuscular Volume 86.0 FL 86.0 FL Mean Corpuscular Hemoglobin 27.7 PG 27.9 PG Mean Corpuscular Hemoglobin Concent 32.3 % 32.4 % Red Cell Distribution Width 21.5 % 21.1 % Platelet Count 196 TH/MM3 212 TH/MM3 Mean Platelet Volume 8.2 FL 8.0 FL Neutrophils (%) (Auto) 89.8 % 89.3 % Lymphocytes (%) (Auto) 4.9 % 5.8 % Monocytes (%) (Auto) 4.9 % 3.9 % Eosinophils (%) (Auto) 0.2 % 0.9 % Basophils (%) (Auto) 0.2 % 0.1 % Neutrophils # (Auto) 19.6 TH/MM3 20.3 TH/MM3 Lymphocytes # (Auto) 1.1 TH/MM3 1.3 TH/MM3 Monocytes # (Auto) 1.1 TH/MM3 0.9 TH/MM3 Eosinophils # (Auto) 0.1 TH/MM3 0.2 TH/MM3 Basophils # (Auto) 0.0 TH/MM3 0.0 TH/MM3 CBC Comment AUTO DIFF AUTO DIFF Differential Total Cells Counted 100 100 Neutrophils % (Manual) 82 % 83 % Band Neutrophils % 5 % 6 % Lymphocytes % 6 % 2 % Monocytes % 4 % 4 % Eosinophils % 1 % 1 % Neutrophils # (Manual) 19.4 TH/MM3 21.2 TH/MM3 Metamyelocytes 2 % Differential Comment FINAL DIFF MANUAL FINAL DIFF MANUAL Platelet Estimate NORMAL NORMAL Platelet Morphology Comment NORMAL NORMAL Spherocytes OCC Ovalocytes 1+ Myelocytes 4 % Laboratory Tests Test 11/23/17 04:40 11/24/17 06:00 Blood Urea Nitrogen 51 MG/DL 54 MG/DL Creatinine 2.68 MG/DL 2.70 MG/DL Random Glucose 94 MG/DL 90 MG/DL Total Protein 5.1 GM/DL 5.2 GM/DL Calcium Level 7.0 MG/DL 7.3 MG/DL Sodium Level 142 MEQ/L 142 MEQ/L Potassium Level 3.2 MEQ/L 3.1 MEQ/L Chloride Level 104 MEQ/L 104 MEQ/L Carbon Dioxide Level 24.4 MEQ/L 26.1 MEQ/L Anion Gap 14 MEQ/L 12 MEQ/L Estimat Glomerular Filtration Rate 18 ML/MIN 18 ML/MIN Protein Corrected Calcium 8.1 MG/DL 8.3 MG/DL Prealbumin 26 MG/DL Imaging Last Impressions Abdomen X-Ray 11/17/17 0000 Signed Impressions: Service Date/Time: Friday, November 17, 2017 19:04 - CONCLUSION: The proximal tip of the double-J stent is either in the expected region of the right renal pelvis or proximal ureter. Allen Mensah MD Chest X-Ray 11/16/17 0000 Signed Impressions: Service Date/Time: Thursday, November 16, 2017 12:43 - CONCLUSION: 1. Right IJ central line tip near the atriocaval junction. 2. No gross pneumothorax or significant interval change. Riccardo Stack MD Abdomen/Pelvis CT 11/16/17 0000 Signed Impressions: Service Date/Time: Thursday, November 16, 2017 08:54 - CONCLUSION: 1. Moderate hydronephrosis right kidney and hydroureter. There is dense material layering within the right renal pelvis and distal ureter of uncertain etiology but could be hemorrhage. Urinalysis and clinical correlation. 2. Hyperdense left renal lesion likely complex cyst. 3. Scattered diverticulosis of the colon. 4. Left basilar consolidation. 5. Left-sided ventral wall hernia. El Nuñez MD Chest CT 11/15/17 1255 Signed Impressions: Service Date/Time: November 14:24 - CONCLUSION: 1. New consolidative infiltrate in the posterior right upper lobe most characteristic of pneumonia. 2. Consolidation also noted in the left lower lobe which is increased from the prior CT. 3. New abnormal streaky density in the posterior upper abdomen located posterior to the liver. This is nonspecific but could represent infection or inflammatory change. 4. Cardiomegaly. Chintan Marshall MD Head CT 11/15/17 1134 Signed Impressions: Service Date/Time: November 14:13 - CONCLUSION: 1. No acute hemorrhage or mass effect. 2. Atrophy and chronic small vessel ischemic change 3. Air-fluid levels in the maxillary sinuses most characteristic of acute sinusitis. Chintan Marshall MD Physical Exam GENERAL: Morbidly obese patient, intubated. NAD. Opens eyes when stimulated. Not following SKIN: Ecchymoses noted. Left thigh large 15x10 cm approx area of erythema, abrasion of skin noted, looks better Skin folds in groin and breast with erythema and fungal overgrowth, improving HEAD: Atraumatic. Normocephalic. No temporal or scalp tenderness. EYES: Pupils equal round and reactive. No icterus, pale conjunctiva. Large neck. ENT: No nasal drainage Prior trach site ok. NECK: Trachea midline. Supple, nontender, no meningeal signs. CARDIOVASCULAR: HS audible and distant. RESPIRATORY: Clear to auscultation anteriorly. Distant breath sounds. GASTROINTESTINAL: Abdomen obese, diffuse tenderness, midline ventral hernia. Pannus noted. MUSCULOSKELETAL: Pedal edema noted. No cyanosis NEUROLOGICAL: Alert, follows commands, moves all 4 extremities. IV line sites with no e.o infection. : Solitario in place color looks better Assessment & Plan Remarks IMPRESSION PSAE sepsis, with Septic shock with multiorgan dysfunction syndrome due to complicated UTI - has R pyonephrosis, S/P cysto and stent placement - still on pressors but decreasing dose, WBC lower, temps better, creatinine decreasing Pneumonia, C/S MRSA 1. Aspiration pneumonia highly likely given multiple episodes of vomiting prior to admission in the fdc 2. Possible post influenza necrotizing pneumonia. 3. Health care pneumonia. Diarrhea: Cdiff positive. Leukemoid reaction: Cdiff, other infections, steroids. Staph coag neg bacteremia: likely contaminant. Acute respiratory failure on vent Acute renal failure with anuria, due to sepsis and shock. Morbid obesity BMI 58.7 KG per meter squared Nausea vomiting prior to admission Recommendations: Continue Ceftazidime IV Continue Zyvox IV (MRSA pneumonia in a ARF patient with oliguria, additional exotoxin neutralization effect for Staph, MRSA and Strep pneumonia) Continue oral Vanco. Consider deescalation of steroids if not steroid dependent. If any new signs of sepsis overnight consider changing CL and changing Ceftaz to Zerbaxa IV. Follow cultures Follow clinically. D/W Amy Crenshaw MD Nov 24, 2017 10:28
--- NOTE | 2017-11-24 11:25 | HHI.NPPN ---
Subjective General Problems: Edema Renal Failure: Acute Additional Remarks Patient is alert, has mild SOB and complain of neck pain. Review of Systems General General Remarks unable to obtain Objective Data Data Vital Signs Date Time Temp Pulse Resp B/P (MAP) Pulse Ox O2 Delivery O2 Flow Rate FiO2 11/24/17 10:01 106 16 119/52 (74) 100 11/24/17 09:01 122 16 137/59 (85) 100 11/24/17 08:03 115 15 103/59 (74) 100 11/24/17 08:00 98.0 116 14 97/61 (73) 100 11/24/17 07:36 98 Nasal Cannula 2.00 11/24/17 06:00 115 11/24/17 04:00 98.0 119 16 126/67 (86) 100 11/24/17 04:00 119 11/24/17 03:28 100 Nasal Cannula 2.00 11/24/17 02:00 109 11/24/17 00:00 114 11/24/17 00:00 98.3 114 16 113/86 (95) 100 11/23/17 23:15 100 Nasal Cannula 2.00 11/23/17 22:00 113 11/23/17 20:00 98.0 116 18 150/90 (110) 100 11/23/17 20:00 116 11/23/17 19:32 100 Nasal Cannula 2.00 11/23/17 19:00 111 11/23/17 19:00 111 17 121/67 (85) 100 11/23/17 18:00 116 17 124/80 (95) 100 11/23/17 18:00 116 11/23/17 17:00 116 17 155/69 (97) 100 11/23/17 17:00 117 11/23/17 16:00 97.8 117 17 105/71 (82) 100 11/23/17 16:00 117 11/23/17 15:00 117 17 132/79 (96) 100 11/23/17 15:00 117 11/23/17 14:00 119 17 136/75 (95) 100 11/23/17 14:00 119 11/23/17 13:00 124 17 146/90 (108) 99 11/23/17 13:00 121 11/23/17 12:00 129 2/9/18 12:00 97.8 128 18 175/91 (119) 100 -: 11/24/17 0600 11/24/17 0600 Tubes & Lines: Soliatrio Tubes & Lines Comment TLC right IJ Drip Comment Lasix at 20 mg/hr Physical Exam General Appearance: Well Nourished, Comfortable, Obese Eyes Eye Exam: Pupils Equal Throat Throat Exam: Oral Mucosa Hurley & Moist Neck Neck Exam: Neck Supple Pulmonary Resp Exam: Breath Sounds Equal, No Distress, Crackles Cardiology CV Exam: Regular, Good Perfusion, Tachycardia Gastrointestinal/Abdomen GI Exam: Soft, Non-Tender, Bowel Sounds Present Musculoskeletal MS Exam: Joints Intact, Normal Tone, Unable to Ambulate Integumentary Skin Exam: Warm, Dry Extremeties Extremities Exam: Moderate Edema, Pitting Edema, Dependent Edema Neurologic Neuro Exam: Alert, Awake, Oriented, Speech Clear Psychiatric Psych Exam: Appropriate Responses Assessment/Plan Discussed Condition With: Patient Assessment Summary: FREDDY/Acute Renal Failure, Fluid/Volume Overload, Hypotension Electrolyte Assessment: Hypokalemia Problem List: (1) FREDDY (acute kidney injury) ICD Codes: N17.9 - Acute kidney failure, unspecified Plan: In January 2017 her renal function was normal. Had FREDDY in September, creatinine at discharge was 1.8 Obstructive uropathy, s/p R urethral stent placement on the 2nd FREDDY also due to urosepsis with renal hyperperfusion Renal function improved slightly Needs continued diuresis, on lasix drip, 20 mg IV per hr. Give a dose of metolazone Minimize excess fluid intake, change KCL replacement to orally Negative balance continues. She is non oliguric. Repeat labs daily Avoid nephrotoxic agents. Use pressors to maintain MAP 65 mmHg, not requiring. K is low, will replace, Creatinine is stable. Continue diuretics. (2) Pneumonia ICD Codes: J18.9 - Pneumonia, unspecified organism Status: Acute Plan: ID following, on Ceftazidime and Zyvox. Suspected aspiration PNA from vomiting. (3) Septic shock ICD Codes: A41.9 - Sepsis, unspecified organism; R65.21 - Severe sepsis with septic shock Plan: Pseudomonas sepsis Continue supportive care (4) Respiratory failure ICD Codes: J96.90 - Respiratory failure, unspecified, unspecified whether with hypoxia or hypercapnia Plan: Successfully extubated Monitor respiratory status Shey Marcelino MD Nov 24, 2017 11:25
[2017-11-24] MEDS ORDERED: POTASSIUM CHLOR 20 MEQ PREMIX 100 ML IV ONE (11:30)
--- NOTE | 2017-11-24 18:13 | HHI.CCPN ---
Subjective Remarks/Hospital Course Hospital Course: 67yF with super morbid obesity who has had multiple prior admissions for MRSA pneumonia and respiratory failure presents by EMS for recurrent respiratory failure. She resides in a SNF. She was found unresponsive this morning. She was intubated in the field. In the emergency department she was hypotensive despite ivf resuscitation and required norepinephrine for vasopressor support. she has a wbc 52k, lactate of 6.9, Cr 2.87 (baseline 0.5, prior admission discharge was 1.8). u/a concerning for probable UTI as well. Subjective: 2: remained unstable throughout the night overnight. on 3 vasopressors. this morning, no better, wbc higher. decision by Dr. Cartagena and myself to emergently CT abd/pelvis to rule out source control, despite ongoing hemodynamic instability. CT abd/pelvis demonstrated right hydronephrosis with likely obstructive pyelonephritis. discussed with urology and interventional radiology : likely to decompensate during procedure. unable to physically prone patient. difficult technically with high risk to do supine lateral CT guided perc nephrostomy tube. urology to take to the OR for cysto with stenting. Prior to leaving for OR, patient's central line was pulled accidentally. patient had no other iv access. I/O needles unavailable. emergently replaced central line in right IJ (see separate procedure note for details). due to ongoing shock, patient's blood pressure in 40s systolic during this time. restarted vasopressors after central access regained. went to OR. cultures growing pseudomonas. 2: minimal improvements. taken to OR yesterday for cysto. minimal uop overnight. off epinephrine but remains on 2 vasopressors, in shock. wbc downtrending but > 50k. 11/18: vasopressor requirements are improving slightly. remains on 2 vasopressors and in shock. blood and urine growing pseudomonas, sputum growing MRSA (history of MRSA pneumonia). wbc downtrending, but remains very high. uop marginal. 11/19 Patient remains sedated and intubated. On Levophed 2 mics, Vasopressin 0.04 mics. WBC is trending down. 11/20 Patient remains intubated and on Precedex for sedation. Remains on Vasopressin and Levophed 8 mics. Afebrile. 11/21 No events overnight. Off pressors and off Precedex. Awake, alert tolerated CPAP for several hrs yesterday 11/22 Patient is awake and alert tolerated CPAP yesterday. Off sedation. Placed on Lasix drip 20mg/hr per renal. Afebrile. 11/23 Patient s/p extubation yesterday on 2L oxygen with good sats. Awake and alert. 11/24: No acute events overnight. Lortab 5/325 mg PRN for pain added to medication regimen. Objective Vital Signs Date Time Temp Pulse Resp B/P (MAP) Pulse Ox O2 Delivery O2 Flow Rate FiO2 11/24/17 10:01 106 16 119/52 (74) 100 11/24/17 08:00 98.0 11/24/17 07:36 Nasal Cannula 2.00 11/22/17 08:34 30 Intake and Output 11/24/17 11/24/17 11/25/17 08:00 16:00 00:00 Intake Total 440 ml Output Total 2550 ml Balance -2110 ml Result Diagram: 11/24/17 0600 11/24/17 0600 Imaging Last Impressions Chest X-Ray 11/22/17 0000 Signed Impressions: Service Date/Time: November 06:32 - CONCLUSION: Stable chest x-ray with a small left basilar opacity likely representing pleural effusion with associated volume loss and/or airspace consolidation. There is also stable diffuse right lung airspace opacity. Perry Kessler MD Abdomen X-Ray 11/17/17 0000 Signed Impressions: Service Date/Time: Friday, November 17, 2017 19:04 - CONCLUSION: The proximal tip of the double-J stent is either in the expected region of the right renal pelvis or proximal ureter. Allen Mensah MD Abdomen/Pelvis CT 11/16/17 0000 Signed Impressions: Service Date/Time: Thursday, November 16, 2017 08:54 - CONCLUSION: 1. Moderate hydronephrosis right kidney and hydroureter. There is dense material layering within the right renal pelvis and distal ureter of uncertain etiology but could be hemorrhage. Urinalysis and clinical correlation. 2. Hyperdense left renal lesion likely complex cyst. 3. Scattered diverticulosis of the colon. 4. Left basilar consolidation. 5. Left-sided ventral wall hernia. El Nuñez MD Chest CT 11/15/17 1255 Signed Impressions: Service Date/Time: November 14:24 - CONCLUSION: 1. New consolidative infiltrate in the posterior right upper lobe most characteristic of pneumonia. 2. Consolidation also noted in the left lower lobe which is increased from the prior CT. 3. New abnormal streaky density in the posterior upper abdomen located posterior to the liver. This is nonspecific but could represent infection or inflammatory change. 4. Cardiomegaly. Chintan Marshall MD Head CT 11/15/17 1134 Signed Impressions: Service Date/Time: November 14:13 - CONCLUSION: 1. No acute hemorrhage or mass effect. 2. Atrophy and chronic small vessel ischemic change 3. Air-fluid levels in the maxillary sinuses most characteristic of acute sinusitis. Chintan Marshall MD Objective Remarks GENERAL: Patient is 67 yo lying in bed in NAD SKIN: Warm and dry. HEAD: Normocephalic. EYES: No scleral icterus. No injection or drainage. NECK: Supple, trachea midline. No JVD or lymphadenopathy. CARDIOVASCULAR: Regular rate and rhythm without murmurs, gallops, or rubs. RESPIRATORY: Breath sounds equal bilaterally. No accessory muscle use. GASTROINTESTINAL: Abdomen soft, non-tender, nondistended. MUSCULOSKELETAL: No cyanosis, + edema. Neuro: Awake and alert A/P Assessment and Plan Neuro: Metabolic Encephalopathy - improved Chronic Pain - Awake and alert - Lortab 5/325 mg Resp: Acute hypoxic and hypercarbic respiratory failure- Extubated 11/22 Healthcare Associated Pneumonia - Continue with oxygen keep sat >92% Bronchodilators, IS NIPPV PRN for resp distress - sputum culture: MRSA CV: s/p Septic Shock - Atrial fibrillation with rapid ventricular response - On Lopressor 25mg Q12 monitor HR and BP keep MAP>65mmHg lactic acid level: 1.4 Hydrocortisone 25mg Q12 Renal: Acute Kidney Injury Acute pyelonephritis Monitor renal function, I/O's, avoid nephrotoxins Cr: 2.68 today from 2.83 on Lasix 20mg/hr, give KCL 40meq IV for K 3.2 - s/p Emergent cysto with stent 11/16, Urology is following Renal is following- Dr. Lopez FEN/GI: Super Morbid Obesity Lactic Acidosis Anion-gap Metabolic acidosis Acute intravascular volume overload Severe acute protein calorie malnutrition -On tube feeds- Nepro with goal rate 40ml/hr -Pepcid for GI prophylaxis Heme/ID: History of prior MRSA pneumonia Acute pyelonephritis Pseudomonas bacteremia Positive C-diff - ID on board. - abx per Nemani. On Zyvox, Fortaz, PO Vanco. Monitor for signs of infections ( Fever, WBC) -2/6 BC :NGTD -2/3 BC: Coag negative staph / bottles..likely contaminant - 11/17 Urine cx :Pseudomonas - 2/1 blood cultures: pseudomonas - 2/1 urine culture: pseudomonas - 2/1 sputum culture: MRSA Endocrine: Hyperglycemia of Critical Illness - q6h SSI, med scale Prophylaxis: SCDs, SQH Pepcid Lines: - Altaf PT/OT eval and treat Level 3 Physician Amelia Delgadillo MD Nov 24, 2017 18:13
[2017-11-25] VITALS (18 sets, daily range): BP systolic 79–130; BP diastolic 40–60; PULSE 102–127; RESP 14–20; TEMP 97.8–98.7; O2SAT 97–100
[2017-11-25] MEDS: RESP: ALBUTEROL 2.5 MG/IPRATROPIUM 0.5 MG NEB (SCH) NEB ×7 (00:11→23:54)
[2017-11-25] MEDS: cefTAZidime INJ 2,000 MG in SODIUM CHLORIDE 0.9% INJ 100 ML IV SCH ×2 (03:00→17:48)
[2017-11-25] MEDS: CHLORHEXIDINE GLUCONATE 2 % 1 PACK (2 CLOTHS) TOP SCH (03:20)
[2017-11-25] MEDS: FUROSEMIDE INJ 100 MG in SODIUM CHLORIDE 0.9% INJ 90 ML IV SCH ×3 (04:56→22:33)
[2017-11-25] MEDS: LINEZOLID 600 MG PREMIX 300 ML IV SCH ×2 (05:26→17:48)
[2017-11-25] MEDS: HEPARIN SODIUM - SQ 10,000 UNITS/ML VIAL SQ SCH ×3 (05:27→22:33)
[2017-11-25] MEDS: INSULIN NovoLIN REGULAR SUPPLEMENTAL SCALE SQ SCH ×4 (05:41→23:36)
[2017-11-25] MEDS: CHLORHEXIDINE 0.12% (ORAL KIT) 15 ML CUP MT SCH ×2 (08:00→20:00)
--- NOTE | 2017-11-25 08:55 | HHI.CCPN ---
Subjective Remarks/Hospital Course Hospital Course: 67yF with super morbid obesity who has had multiple prior admissions for MRSA pneumonia and respiratory failure presents by EMS for recurrent respiratory failure. She resides in a SNF. She was found unresponsive this morning. She was intubated in the field. In the emergency department she was hypotensive despite ivf resuscitation and required norepinephrine for vasopressor support. she has a wbc 52k, lactate of 6.9, Cr 2.87 (baseline 0.5, prior admission discharge was 1.8). u/a concerning for probable UTI as well. Subjective: 2: remained unstable throughout the night overnight. on 3 vasopressors. this morning, no better, wbc higher. decision by Dr. Cartagena and myself to emergently CT abd/pelvis to rule out source control, despite ongoing hemodynamic instability. CT abd/pelvis demonstrated right hydronephrosis with likely obstructive pyelonephritis. discussed with urology and interventional radiology : likely to decompensate during procedure. unable to physically prone patient. difficult technically with high risk to do supine lateral CT guided perc nephrostomy tube. urology to take to the OR for cysto with stenting. Prior to leaving for OR, patient's central line was pulled accidentally. patient had no other iv access. I/O needles unavailable. emergently replaced central line in right IJ (see separate procedure note for details). due to ongoing shock, patient's blood pressure in 40s systolic during this time. restarted vasopressors after central access regained. went to OR. cultures growing pseudomonas. 2: minimal improvements. taken to OR yesterday for cysto. minimal uop overnight. off epinephrine but remains on 2 vasopressors, in shock. wbc downtrending but > 50k. 11/18: vasopressor requirements are improving slightly. remains on 2 vasopressors and in shock. blood and urine growing pseudomonas, sputum growing MRSA (history of MRSA pneumonia). wbc downtrending, but remains very high. uop marginal. 11/19 Patient remains sedated and intubated. On Levophed 2 mics, Vasopressin 0.04 mics. WBC is trending down. 11/20 Patient remains intubated and on Precedex for sedation. Remains on Vasopressin and Levophed 8 mics. Afebrile. 11/21 No events overnight. Off pressors and off Precedex. Awake, alert tolerated CPAP for several hrs yesterday 11/22 Patient is awake and alert tolerated CPAP yesterday. Off sedation. Placed on Lasix drip 20mg/hr per renal. Afebrile. 11/23 Patient s/p extubation yesterday on 2L oxygen with good sats. Awake and alert. 11/24: No acute events overnight. Lortab 5/325 mg PRN for pain added to medication regimen. 11/25: Afebrile. Patient resting comfortably, no acute events overnight. Patient awake and responsive. Patient noted to have a poor appetite with pureed diet supplementation with boost supplementation with every meal added. Objective Vital Signs Date Time Temp Pulse Resp B/P (MAP) Pulse Ox O2 Delivery O2 Flow Rate FiO2 11/25/17 07:25 100 Nasal Cannula 2.00 11/25/17 06:00 122 11/25/17 04:00 98.0 17 101/49 (66) 11/22/17 08:34 30 Intake and Output 11/25/17 11/25/17 11/26/17 08:00 16:00 00:00 Intake Total 500 ml Output Total 2400 ml Balance -1900 ml Result Diagram: 11/24/17 0600 11/24/17 0600 Other Results Last Impressions Chest X-Ray 11/24/17 0000 Signed Impressions: Service Date/Time: Friday, November 24, 2017 03:36 - CONCLUSION: 1. Improved right lung consolidation. Persistent consolidation left base. Interval extubation. Sachin Gonzalez MD Abdomen X-Ray 11/17/17 0000 Signed Impressions: Service Date/Time: Friday, November 17, 2017 19:04 - CONCLUSION: The proximal tip of the double-J stent is either in the expected region of the right renal pelvis or proximal ureter. Allen Mensah MD Abdomen/Pelvis CT 11/16/17 0000 Signed Impressions: Service Date/Time: Thursday, November 16, 2017 08:54 - CONCLUSION: 1. Moderate hydronephrosis right kidney and hydroureter. There is dense material layering within the right renal pelvis and distal ureter of uncertain etiology but could be hemorrhage. Urinalysis and clinical correlation. 2. Hyperdense left renal lesion likely complex cyst. 3. Scattered diverticulosis of the colon. 4. Left basilar consolidation. 5. Left-sided ventral wall hernia. El Nuñez MD Chest CT 11/15/17 1255 Signed Impressions: Service Date/Time: November 14:24 - CONCLUSION: 1. New consolidative infiltrate in the posterior right upper lobe most characteristic of pneumonia. 2. Consolidation also noted in the left lower lobe which is increased from the prior CT. 3. New abnormal streaky density in the posterior upper abdomen located posterior to the liver. This is nonspecific but could represent infection or inflammatory change. 4. Cardiomegaly. Chintan Marshall MD Head CT 11/15/17 1134 Signed Impressions: Service Date/Time: November 14:13 - CONCLUSION: 1. No acute hemorrhage or mass effect. 2. Atrophy and chronic small vessel ischemic change 3. Air-fluid levels in the maxillary sinuses most characteristic of acute sinusitis. Chintan Marshall MD Imaging Last Impressions Chest X-Ray 11/22/17 0000 Signed Impressions: Service Date/Time: November 06:32 - CONCLUSION: Stable chest x-ray with a small left basilar opacity likely representing pleural effusion with associated volume loss and/or airspace consolidation. There is also stable diffuse right lung airspace opacity. Perry Kessler MD Abdomen X-Ray 11/17/17 0000 Signed Impressions: Service Date/Time: Friday, November 17, 2017 19:04 - CONCLUSION: The proximal tip of the double-J stent is either in the expected region of the right renal pelvis or proximal ureter. Allen Mensah MD Abdomen/Pelvis CT 11/16/17 0000 Signed Impressions: Service Date/Time: Thursday, November 16, 2017 08:54 - CONCLUSION: 1. Moderate hydronephrosis right kidney and hydroureter. There is dense material layering within the right renal pelvis and distal ureter of uncertain etiology but could be hemorrhage. Urinalysis and clinical correlation. 2. Hyperdense left renal lesion likely complex cyst. 3. Scattered diverticulosis of the colon. 4. Left basilar consolidation. 5. Left-sided ventral wall hernia. El Nuñez MD Chest CT 11/15/17 1255 Signed Impressions: Service Date/Time: November 14:24 - CONCLUSION: 1. New consolidative infiltrate in the posterior right upper lobe most characteristic of pneumonia. 2. Consolidation also noted in the left lower lobe which is increased from the prior CT. 3. New abnormal streaky density in the posterior upper abdomen located posterior to the liver. This is nonspecific but could represent infection or inflammatory change. 4. Cardiomegaly. Chintan Marshall MD Head CT 11/15/17 1134 Signed Impressions: Service Date/Time: November 14:13 - CONCLUSION: 1. No acute hemorrhage or mass effect. 2. Atrophy and chronic small vessel ischemic change 3. Air-fluid levels in the maxillary sinuses most characteristic of acute sinusitis. Chintan Marshall MD Objective Remarks GENERAL: This is a well-developed well nourished obese female 67 yo lying in bed in NAD SKIN: Warm and dry. HEAD: Normocephalic. EYES: No scleral icterus. No injection or drainage. NECK: Supple, trachea midline. No JVD or lymphadenopathy. CARDIOVASCULAR: Regular rate and rhythm without murmurs, gallops, or rubs. RESPIRATORY: Breath sounds equal bilaterally. No accessory muscle use. GASTROINTESTINAL: Abdomen soft, protuberant, non-tender, nondistended. MUSCULOSKELETAL: No cyanosis, + edema. Generalized anasarca Neuro: GCS 15 .Awake and alert A/P Assessment and Plan Neuro: Metabolic Encephalopathy - improved Chronic Pain - Awake and alert - Lortab 5/325 mg PRN Resp: Acute hypoxic and hypercarbic respiratory failure- Extubated 11/22 Healthcare Associated Pneumonia - Continue with oxygen keep sat >92% Bronchodilators, IS NIPPV PRN for resp distress - sputum culture: MRSA 11/24 CXR-improved right lung consolidation, persistent left base consolidation CV: s/p Septic Shock - Atrial fibrillation with rapid ventricular response - On Lopressor 25mg Q12 Monitor HR and BP keep MAP>65mmHg Hydrocortisone 25mg Q12 Renal: Acute Kidney Injury Acute pyelonephritis Monitor renal function, I/O's, avoid nephrotoxins Lasix 20mg/hr per nephrology - s/p Emergent cysto with stent 11/16, Urology is following Renal is following- Dr. Lopez -Follow-up BMP FEN/GI: Super Morbid Obesity Lactic Acidosis Anion-gap Metabolic acidosis Acute intravascular volume overload Severe acute protein calorie malnutrition -Pured diet, poor oral intake -Consider calorie count, will add boost supplementation with every meal -Pepcid for GI prophylaxis Heme/ID: History of prior MRSA pneumonia Acute pyelonephritis Pseudomonas bacteremia Positive C-diff - ID on board. - abx per Nemani. On Zyvox, Fortaz, PO Vanco. Monitor for signs of infections ( Fever, WBC) -11/20 BC :NGTD -11/17 BC: Coag negative staph 10/18 bottles..likely contaminant - 11/17 Urine cx :Pseudomonas - 2/ blood cultures: pseudomonas - 2/ urine culture: pseudomonas - 2/1 sputum culture: MRSA Endocrine: Hyperglycemia of Critical Illness - q6h SSI, med scale Musculoskeletal: Polyneuropathy of critical illness - Generalized anasarca -PT/OT evaluate and treat -Left hip shear-wound care consulted, recommendations implemented. Specialty bed Prophylaxis: SCDs, SQH Pepcid Lines: - Solitario-10 you patient on IV diuretics PT/OT eval and treat Level 3 Physician Amelia Delgadillo MD Nov 25, 2017 08:55
[2017-11-25] MEDS: DOCUSATE SODIUM 50 MG/SENNA 8.6 MG TAB PO SCH ×2 (09:00→20:10)
[2017-11-25] MEDS: VANCOMYCIN 25 MG/ML SUSP 100 ML BOTTLE PO SCH ×4 (09:00→20:10)
[2017-11-25] MEDS: METOPROLOL TARTRATE 25 MG TAB PO SCH ×2 (09:00→20:10)
[2017-11-25] MEDS: HYDROCORTISONE SOD SUCCINATE 100 MG VIAL IV PUSH SCH ×2 (09:18→20:10)
[2017-11-25] MEDS: FAMOTIDINE 20 MG/2 ML VIAL IV PUSH SCH ×2 (09:19→20:09)
--- NOTE | 2017-11-25 10:32 | HHI.NPPN ---
Subjective General Problems: Edema Renal Failure: Acute Additional Remarks Patient is alert, has mild SOB and with nasal cannula. Review of Systems General General Remarks unable to obtain Objective Data Data Vital Signs Date Time Temp Pulse Resp B/P (MAP) Pulse Ox O2 Delivery O2 Flow Rate FiO2 11/25/17 07:25 100 Nasal Cannula 2.00 11/25/17 06:00 122 11/25/17 04:00 114 11/25/17 04:00 98.0 114 17 101/49 (66) 97 11/25/17 02:00 117 11/25/17 00:00 98.6 102 17 98/57 (71) 100 11/25/17 00:00 102 11/24/17 22:00 109 11/24/17 20:00 97.8 124 15 96/48 (64) 100 11/24/17 20:00 124 11/24/17 19:34 93 Nasal Cannula 2.00 11/24/17 18:01 126 17 109/52 (71) 97 11/24/17 17:38 120 16 132/56 (81) 98 11/24/17 16:44 98.0 117 18 131/78 (95) 100 11/24/17 15:01 113 20 126/56 (79) 100 11/24/17 14:00 116 20 146/74 (98) 100 11/24/17 13:02 114 22 129/64 (85) 100 11/24/17 12:33 98.5 111 24 108/58 (75) 99 11/24/17 11:00 108 17 120/77 (91) 100 -: 11/24/17 0600 11/24/17 0600 Tubes & Lines: Solitario Tubes & Lines Comment TLC right IJ Drip Comment Lasix at 20 mg/hr Physical Exam General Appearance: Well Nourished, Comfortable, Obese Eyes Eye Exam: Pupils Equal Throat Throat Exam: Oral Mucosa [place] & Moist Neck Neck Exam: Neck Supple Pulmonary Resp Exam: Breath Sounds Equal, No Distress, Crackles Cardiology CV Exam: Regular, Good Perfusion, Tachycardia Gastrointestinal/Abdomen GI Exam: Soft, Non-Tender, Bowel Sounds Present Musculoskeletal MS Exam: Joints Intact, Normal Tone, Unable to Ambulate Integumentary Skin Exam: Warm, Dry Extremeties Extremities Exam: Moderate Edema, Pitting Edema, Dependent Edema Neurologic Neuro Exam: Alert, Awake, Oriented, Speech Clear Psychiatric Psych Exam: Appropriate Responses Assessment/Plan Discussed Condition With: Patient Assessment Summary: FREDDY/Acute Renal Failure, Fluid/Volume Overload, Hypotension Electrolyte Assessment: Hypokalemia Problem List: (1) FREDDY (acute kidney injury) ICD Codes: N17.9 - Acute kidney failure, unspecified Plan: In January 2017 her renal function was normal. Had FREDDY in September, creatinine at discharge was 1.8 Obstructive uropathy, s/p R urethral stent placement on the 2nd FREDDY also due to urosepsis with renal hyperperfusion Renal function improved slightly Needs continued diuresis, on lasix drip, 20 mg IV per hr. Give a dose of metolazone Minimize excess fluid intake, change KCL replacement to orally Negative balance continues. She is non oliguric. Repeat labs daily Avoid nephrotoxic agents. BMP is still pending. Urine out put is good. Decrease Lasix 10 mg per hr. (2) Pneumonia ICD Codes: J18.9 - Pneumonia, unspecified organism Status: Acute Plan: ID following, on Ceftazidime and Zyvox. Suspected aspiration PNA from vomiting. (3) Septic shock ICD Codes: A41.9 - Sepsis, unspecified organism; R65.21 - Severe sepsis with septic shock Plan: Pseudomonas sepsis Continue supportive care (4) Respiratory failure ICD Codes: J96.90 - Respiratory failure, unspecified, unspecified whether with hypoxia or hypercapnia Plan: Successfully extubated Monitor respiratory status Shey Marcelino MD Nov 25, 2017 10:32
[2017-11-25 10:35] LABS: AUTOMATED NEUTROPHIL # 17.3 TH/MM3 (1.8-7.7); BASOPHIL % 0.1 % (0.0-2.0); EOSINOPHIL # 0.4 TH/MM3 (0-0.4); EOSINOPHIL % 1.7 % (0.0-4.0); HEMATOCRIT 28.2 % (35.0-46.0); HEMOGLOBIN 9.1 GM/DL (11.6-15.3); LYMPH % 7.2 % (9.0-44.0); LYMPHOCYTE # 1.4 TH/MM3 (1.0-4.8); MEAN CELL VOLUME 86.6 FL (80.0-100.0); MEAN CORPUSCULAR HEMOGLOBIN 28.1 PG (27.0-34.0); MEAN CORPUSCULAR HGB CONC 32.4 % (32.0-36.0); MEAN PLATELET VOLUME 8.1 FL (7.0-11.0); MONO % 4.8 % (0.0-8.0); NEUT % 86.2 % (16.0-70.0); PLATELET COUNT 187 TH/MM3 (150-450); RED BLOOD COUNT 3.26 MIL/MM3 (4.00-5.30); RED CELL DISTRIBUTION WIDTH 21.1 % (11.6-17.2); WHITE BLOOD COUNT 20.1 TH/MM3 (4.0-11.0)
[2017-11-25 11:00] LABS: BICARBONATE 28.7 MEQ/L (21.0-32.0); CALCIUM 7.4 MG/DL (8.5-10.1); CREATININE 2.59 MG/DL (0.50-1.00)
--- NOTE | 2017-11-25 11:16 | HHI.IDPN ---
Subjective Subjective Remarks is a 67 y/o CF morbidly obese with BMI 58.7 kg/m2 who has had multiple prior admissions for MRSA pneumonia and respiratory failure presents by EMS for recurrent respiratory failure. She resides in a SNF. She was found unresponsive this morning. She was intubated in the field. She has a wbc 52k, lactate of 6.9, Cr 2.87 (baseline 0.5, prior admission discharge was 1.8). u/a concerning for probable UTI as well. In the emergency department patient received 3 IV fluid boluses and continued to be hypotensive needing vasopressor support. Upon review of records it appears she was recently treated in Oct 15 for UTI at [facility] with macrobid. EMAR from [facility] with no antibiotics but was on lactobacillus. Spoke to CHILO Moura at [facility] patient has 2-3 episodes of vomiting yesterday at [facility] and received antiemetics. T:98, BP: 110/62, 96% RA, BS: 108. Patient was not on any antibiotics. No diarrhea. Lasix increased due to pedal edema. No cultures drawn. No flu test done per records. She has a prior h/o admission at [facility] admitted in late 2016 when she was in the ICU intubated needing a trach eventually. During that admission patient was treated for MRSA pneumonia but also she has a history of pseudomonas infections in the past. Pseudomonas in the past with pansensitive cultures but given her multiple hospitalization and multiple courses of antibiotics she stands at this for multidrug-resistant Pseudomonas. At the time of my evaluation patient is in the [facility] appears very critically ill intubated. Patient is on vasopressin 0.04, we will fed 40 mics, epinephrine 10/9, amiodarone drip at 1 g. Patient has 0 urine output at the present time. She has small white secretions. She has no diarrhea. Abdomen appears benign. No response to verbal or other stimuli for me but RN reports when daughter was here earlier she opened eyes, moved limbs and squeezed RNs fingers. Currently sedation is off but patient in ARF with no urine output. Infectious disease consultation was requested for evaluation and management of septic shock, pneumonia. Notes reviewed. D/W RN Vocalizes and answers basic questions. Off pressors. on lasix drip. Solitario in place. No fevers No rash Diarrhea Cdiff positive. Antibiotics Current Medications Medications (Trade) Dose Ordered Sig/Mirta Route Start Time Stop Time Status Last Admin (Brethine Inj) 1 mg UNSCH PRN SQ 11/15/17 12:45 (D50w (Vial) Inj) 25 ml UNSCH PRN IV PUSH 11/15/17 14:00 (NovoLIN R SUPPLEMENTAL SCALE) 1 Q6HR SQ 11/15/17 18:00 11/20/17 17:43 (Duoneb Neb) 1 ampule Q2HR NEB PRN INH 11/15/17 14:00 11/17/17 23:39 (Tylenol) 650 mg Q6H PRN PO 11/15/17 14:00 11/22/17 07:57 (Pepcid Inj) 10 mg Q12HR IV PUSH 11/15/17 21:00 11/24/17 08:16 (Zofran Inj) 4 mg Q6H PRN IV PUSH 11/15/17 14:00 (Heparin Inj) 5,000 units Q8H SQ 11/15/17 15:00 11/24/17 05:49 Miscellaneous Information 1 Q361D XX 11/15/17 14:00 11/15/17 19:00 (Chlorhexidine 2% Cloth) Taper DAILY@04 TOP 11/16/17 04:00 11/12/18 03:59 11/23/17 04:00 (Chlorhexidine 2% Cloth) 3 pack UNSCH PRN TOP 11/15/17 14:00 (Zelda-Colace) 1 tab BID PO 11/15/17 21:00 11/23/17 20:12 (Milk Of Magnesia Liq) 30 ml Q12H PRN PO 11/15/17 14:00 (Senokot) 17.2 mg Q12H PRN PO 11/15/17 14:00 (Dulcolax Supp) 10 mg DAILY PRN RECTAL 11/15/17 14:00 (Lactulose Liq) 30 ml DAILY PRN PO 11/15/17 14:00 Linezolid 300 ml @ 300 mls/hr Q12H IV 11/16/17 07:00 11/24/17 05:49 (Peridex 0.12% Liq) 15 ml BID@08,20 MT 11/16/17 20:00 11/22/17 19:45 Ceftazidime 2000 mg/Sodium Chloride 100 ml @ 200 mls/hr Q12H IV 11/19/17 15:00 11/24/17 02:45 (SoluCORTEF INJ) 25 mg Q12HR IV PUSH 11/21/17 09:00 11/24/17 08:16 (Lopressor) 25 mg Q12HR PO 11/21/17 09:00 11/24/17 08:16 Furosemide 100 mg/ Sodium Chloride 100 ml @ 20 mls/hr CONTINUOUS IV 11/21/17 11:00 11/24/17 09:29 (Duoneb Neb) 1 ampule Q4HR NEB NEB 11/22/17 12:00 11/24/17 07:36 (Vancomycin 25 Mg/ml Liq) 125 mg QID PO 11/24/17 09:00 11/24/17 08:17 Lines RIJ TLC Past Medical History Past Medical History Chronic asthma home oxygen Atrial fibrillation Hyperlipidemia Hypertension excellent diabetes mellitus GERD Morbid obesity BMI 55 Past Surgical History Appendectomy Hernia surgery Tracheostomy placement Allergies: Coded Allergies: penicillin G (Unverified Allergy, Severe, 05/29/17) Objective . Vital Signs Date Time Temp Pulse Resp B/P (MAP) Pulse Ox O2 Delivery O2 Flow Rate FiO2 11/25/17 10:00 109 15 110/60 (77) 100 11/25/17 09:04 111 15 93/53 (66) 100 11/25/17 09:00 108 14 79/47 (58) 98 11/25/17 08:01 98.7 111 15 88/40 (56) 99 11/25/17 07:25 100 Nasal Cannula 2.00 11/25/17 06:00 122 11/25/17 04:00 114 11/25/17 04:00 98.0 114 17 101/49 (66) 97 11/25/17 02:00 117 11/25/17 00:00 98.6 102 17 98/57 (71) 100 11/25/17 00:00 102 11/24/17 22:00 109 11/24/17 20:00 97.8 124 15 96/48 (64) 100 11/24/17 20:00 124 11/24/17 19:34 93 Nasal Cannula 2.00 11/24/17 18:01 126 17 109/52 (71) 97 11/24/17 17:38 120 16 132/56 (81) 98 11/24/17 16:44 98.0 117 18 131/78 (95) 100 11/24/17 15:01 113 20 126/56 (79) 100 11/24/17 14:00 116 20 146/74 (98) 100 11/24/17 13:02 114 22 129/64 (85) 100 11/24/17 12:33 98.5 111 24 108/58 (75) 99 . Laboratory Tests Test 11/24/17 06:00 11/25/17 09:30 White Blood Count 22.8 TH/MM3 20.1 TH/MM3 Red Blood Count 3.64 MIL/MM3 3.26 MIL/MM3 Hemoglobin 10.1 GM/DL 9.1 GM/DL Hematocrit 31.3 % 28.2 % Mean Corpuscular Volume 86.0 FL 86.6 FL Mean Corpuscular Hemoglobin 27.9 PG 28.1 PG Mean Corpuscular Hemoglobin Concent 32.4 % 32.4 % Red Cell Distribution Width 21.1 % 21.1 % Platelet Count 212 TH/MM3 187 TH/MM3 Mean Platelet Volume 8.0 FL 8.1 FL Neutrophils (%) (Auto) 89.3 % 86.2 % Lymphocytes (%) (Auto) 5.8 % 7.2 % Monocytes (%) (Auto) 3.9 % 4.8 % Eosinophils (%) (Auto) 0.9 % 1.7 % Basophils (%) (Auto) 0.1 % 0.1 % Neutrophils # (Auto) 20.3 TH/MM3 17.3 TH/MM3 Lymphocytes # (Auto) 1.3 TH/MM3 1.4 TH/MM3 Monocytes # (Auto) 0.9 TH/MM3 1.0 TH/MM3 Eosinophils # (Auto) 0.2 TH/MM3 0.4 TH/MM3 Basophils # (Auto) 0.0 TH/MM3 0.0 TH/MM3 CBC Comment AUTO DIFF AUTO DIFF Differential Total Cells Counted 100 Neutrophils % (Manual) 83 % Band Neutrophils % 6 % Lymphocytes % 2 % Monocytes % 4 % Eosinophils % 1 % Neutrophils # (Manual) 21.2 TH/MM3 Myelocytes 4 % Differential Comment FINAL DIFF MANUAL Platelet Estimate NORMAL Platelet Morphology Comment NORMAL Laboratory Tests Test 11/24/17 06:00 11/25/17 09:30 Blood Urea Nitrogen 54 MG/DL 53 MG/DL Creatinine 2.70 MG/DL 2.59 MG/DL Random Glucose 90 MG/DL 79 MG/DL Total Protein 5.2 GM/DL Calcium Level 7.3 MG/DL 7.4 MG/DL Sodium Level 142 MEQ/L 142 MEQ/L Potassium Level 3.1 MEQ/L 2.7 MEQ/L Chloride Level 104 MEQ/L 103 MEQ/L Carbon Dioxide Level 26.1 MEQ/L 28.7 MEQ/L Anion Gap 12 MEQ/L 10 MEQ/L Estimat Glomerular Filtration Rate 18 ML/MIN 18 ML/MIN Protein Corrected Calcium 8.3 MG/DL Imaging Last Impressions Abdomen X-Ray 11/17/17 0000 Signed Impressions: Service Date/Time: Friday, November 17, 2017 19:04 - CONCLUSION: The proximal tip of the double-J stent is either in the expected region of the right renal pelvis or proximal ureter. Allen Mensah MD Chest X-Ray 11/16/17 0000 Signed Impressions: Service Date/Time: Thursday, November 16, 2017 12:43 - CONCLUSION: 1. Right IJ central line tip near the atriocaval junction. 2. No gross pneumothorax or significant interval change. Riccardo Stack MD Abdomen/Pelvis CT 11/16/17 0000 Signed Impressions: Service Date/Time: Thursday, November 16, 2017 08:54 - CONCLUSION: 1. Moderate hydronephrosis right kidney and hydroureter. There is dense material layering within the right renal pelvis and distal ureter of uncertain etiology but could be hemorrhage. Urinalysis and clinical correlation. 2. Hyperdense left renal lesion likely complex cyst. 3. Scattered diverticulosis of the colon. 4. Left basilar consolidation. 5. Left-sided ventral wall hernia. El Nuñez MD Chest CT 11/15/17 1255 Signed Impressions: Service Date/Time: November 14:24 - CONCLUSION: 1. New consolidative infiltrate in the posterior right upper lobe most characteristic of pneumonia. 2. Consolidation also noted in the left lower lobe which is increased from the prior CT. 3. New abnormal streaky density in the posterior upper abdomen located posterior to the liver. This is nonspecific but could represent infection or inflammatory change. 4. Cardiomegaly. Chintan Marshall MD Head CT 11/15/17 1134 Signed Impressions: Service Date/Time: November 14:13 - CONCLUSION: 1. No acute hemorrhage or mass effect. 2. Atrophy and chronic small vessel ischemic change 3. Air-fluid levels in the maxillary sinuses most characteristic of acute sinusitis. Chintan Marshall MD Physical Exam GENERAL: Morbidly obese patient, intubated. NAD. Opens eyes when stimulated. Not following SKIN: Ecchymoses noted. Left thigh large 15x10 cm approx area of erythema, abrasion of skin noted, looks better Skin folds in groin and breast with erythema and fungal overgrowth, improving HEAD: Atraumatic. Normocephalic. No temporal or scalp tenderness. EYES: Pupils equal round and reactive. No icterus, pale conjunctiva. Large neck. ENT: No nasal drainage Prior trach site ok. NECK: Trachea midline. Supple, nontender, no meningeal signs. CARDIOVASCULAR: HS audible and distant. RESPIRATORY: Clear to auscultation anteriorly. Distant breath sounds. GASTROINTESTINAL: Abdomen obese, diffuse tenderness, midline ventral hernia. Pannus noted. MUSCULOSKELETAL: Pedal edema noted. No cyanosis NEUROLOGICAL: Alert, follows commands, moves all 4 extremities. IV line sites with no e.o infection. : Solitario in place color looks better Assessment & Plan Remarks IMPRESSION PSAE sepsis, with Septic shock with multiorgan dysfunction syndrome due to complicated UTI - has R pyonephrosis, S/P cysto and stent placement - still on pressors but decreasing dose, WBC lower, temps better, creatinine decreasing Pneumonia, C/S MRSA 1. Aspiration pneumonia highly likely given multiple episodes of vomiting prior to [facility] in the [facility] 2. Possible post influenza necrotizing pneumonia. 3. Health care pneumonia. Diarrhea: Cdiff positive. Leukemoid reaction: Cdiff, other infections, steroids. Staph coag neg bacteremia: likely contaminant. Acute respiratory failure on vent Acute renal failure with anuria, due to sepsis and shock. Morbid obesity BMI 58.7 KG per meter squared Nausea vomiting prior to admission Recommendations: Continue Ceftazidime IV Continue Zyvox IV (MRSA pneumonia in a ARF patient with oliguria, additional exotoxin neutralization effect for Staph, MRSA and Strep pneumonia) Continue oral Vanco. Consider deescalation of steroids if not steroid dependent. Check UA if still shows persistent PSAE then will consider repeat Imaging and escalating antibiotics mick if WBC continues to be high. If any new signs of sepsis overnight consider changing CL and changing Ceftaz to Zerbaxa IV. Follow cultures Follow clinically. D/W Amy Crenshaw MD Nov 25, 2017 11:16
[2017-11-25 11:29] LABS: CALCIUM-PROTEIN CORRECTED 8.6 MG/DL (8.5-10.1)
[2017-11-25 11:45] LABS: BANDS 4 % (0-6); LYMPHOCYTES 7 % (9-44); MONOCYTES 4 % (0-8); NEUTROPHIL # MANUAL DIFF 17.7 TH/MM3 (1.8-7.7); POLYS (SEG NEUTROPHILS) 84 % (16-70)
[2017-11-25] MEDS ORDERED: POTASSIUM CHLORIDE 25 MEQ EFFERVESCENT TAB PO ONE (12:00)
[2017-11-25] MEDS ORDERED: POTASSIUM CHLOR 40 MEQ PREMIX 100 ML IV ONE (13:00)
[2017-11-25 16:52] LABS: BACTERIA, URINE FEW /hpf; BILIRUBIN, URINE NEG (NEG); BLOOD, URINE MOD (NEG); GLUCOSE,URINE NEG (NEG); KETONE, URINE NEG (NEG); MUCUS URINE FEW /lpf (OCC); NITRITE,URINE NEG (NEG); SQUAMOUS EPITHELIAL CELL URINE <1 /hpf (0-5); URINE COLOR LIGHT-YELLOW (YELLW/STRAW); URINE LEUKOCYTE ESTERASE LARGE (NEG); WHITE BLOOD CELL CLUMPS MANY
[2017-11-25] MEDS: POTASSIUM CHLOR 10 MEQ PREMIX 100 ML IV SCH ×4 (20:09→23:35)
[2017-11-26] VITALS (17 sets, daily range): BP systolic 109–124; BP diastolic 55–90; PULSE 109–125; RESP 15–21; TEMP 98–98.6; O2SAT 89–100
[2017-11-26] MEDS: POTASSIUM CHLOR 10 MEQ PREMIX 100 ML IV SCH ×2 (00:34→01:38)
[2017-11-26] MEDS: cefTAZidime INJ 2,000 MG in SODIUM CHLORIDE 0.9% INJ 100 ML IV SCH ×2 (01:38→09:21)
[2017-11-26] MEDS: RESP: ALBUTEROL 2.5 MG/IPRATROPIUM 0.5 MG NEB (SCH) NEB ×3 (03:18→11:16)
[2017-11-26] MEDS: CHLORHEXIDINE GLUCONATE 2 % 1 PACK (2 CLOTHS) TOP SCH (04:00)
[2017-11-26 05:26] LABS: AUTOMATED NEUTROPHIL # 19.4 TH/MM3 (1.8-7.7); BASOPHIL % 0.2 % (0.0-2.0); EOSINOPHIL # 0.1 TH/MM3 (0-0.4); EOSINOPHIL % 0.4 % (0.0-4.0); HEMATOCRIT 26.9 % (35.0-46.0); HEMOGLOBIN 8.9 GM/DL (11.6-15.3); LYMPH % 4.4 % (9.0-44.0); LYMPHOCYTE # 0.9 TH/MM3 (1.0-4.8); MEAN CELL VOLUME 86.4 FL (80.0-100.0); MEAN CORPUSCULAR HEMOGLOBIN 28.5 PG (27.0-34.0); MEAN PLATELET VOLUME 8.1 FL (7.0-11.0); MONO % 3.5 % (0.0-8.0); MONOCYTE # 0.7 TH/MM3 (0-0.9); NEUT % 91.5 % (16.0-70.0); PLATELET COUNT 180 TH/MM3 (150-450); RED BLOOD COUNT 3.11 MIL/MM3 (4.00-5.30); RED CELL DISTRIBUTION WIDTH 21.1 % (11.6-17.2); WHITE BLOOD COUNT 21.2 TH/MM3 (4.0-11.0)
[2017-11-26] MEDS: INSULIN NovoLIN REGULAR SUPPLEMENTAL SCALE SQ SCH ×4 (05:46→23:27)
[2017-11-26] MEDS: LINEZOLID 600 MG PREMIX 300 ML IV SCH ×2 (05:46→18:37)
[2017-11-26] MEDS: HEPARIN SODIUM - SQ 10,000 UNITS/ML VIAL SQ SCH ×3 (05:47→21:47)
[2017-11-26 05:50] LABS: BICARBONATE 29.7 MEQ/L (21.0-32.0); CALCIUM 7.5 MG/DL (8.5-10.1); CREATININE 2.53 MG/DL (0.50-1.00); MAGNESIUM 1.3 MG/DL (1.5-2.5)
[2017-11-26 05:51] LABS: PHOSPHORUS 4.3 MG/DL (2.5-4.9)
[2017-11-26] MEDS ORDERED: MAGNESIUM SULFATE 1 GM PREMIX 100 ML IV ONE (07:15)
--- NOTE | 2017-11-26 07:18 | HHI.CCPN ---
Subjective Remarks/Hospital Course Hospital Course: 67yF with super morbid obesity who has had multiple prior admissions for MRSA pneumonia and respiratory failure presents by EMS for recurrent respiratory failure. She resides in a SNF. She was found unresponsive this morning. She was intubated in the field. In the emergency department she was hypotensive despite ivf resuscitation and required norepinephrine for vasopressor support. she has a wbc 52k, lactate of 6.9, Cr 2.87 (baseline 0.5, prior admission discharge was 1.8). u/a concerning for probable UTI as well. Subjective: 2: remained unstable throughout the night overnight. on 3 vasopressors. this morning, no better, wbc higher. decision by Dr. Cartagena and myself to emergently CT abd/pelvis to rule out source control, despite ongoing hemodynamic instability. CT abd/pelvis demonstrated right hydronephrosis with likely obstructive pyelonephritis. discussed with urology and interventional radiology : likely to decompensate during procedure. unable to physically prone patient. difficult technically with high risk to do supine lateral CT guided perc nephrostomy tube. urology to take to the OR for cysto with stenting. Prior to leaving for OR, patient's central line was pulled accidentally. patient had no other iv access. I/O needles unavailable. emergently replaced central line in right IJ (see separate procedure note for details). due to ongoing shock, patient's blood pressure in 40s systolic during this time. restarted vasopressors after central access regained. went to OR. cultures growing pseudomonas. 2: minimal improvements. taken to OR yesterday for cysto. minimal uop overnight. off epinephrine but remains on 2 vasopressors, in shock. wbc downtrending but > 50k. 11/18: vasopressor requirements are improving slightly. remains on 2 vasopressors and in shock. blood and urine growing pseudomonas, sputum growing MRSA (history of MRSA pneumonia). wbc downtrending, but remains very high. uop marginal. 11/19 Patient remains sedated and intubated. On Levophed 2 mics, Vasopressin 0.04 mics. WBC is trending down. 11/20 Patient remains intubated and on Precedex for sedation. Remains on Vasopressin and Levophed 8 mics. Afebrile. 11/21 No events overnight. Off pressors and off Precedex. Awake, alert tolerated CPAP for several hrs yesterday 11/22 Patient is awake and alert tolerated CPAP yesterday. Off sedation. Placed on Lasix drip 20mg/hr per renal. Afebrile. 11/23 Patient s/p extubation yesterday on 2L oxygen with good sats. Awake and alert. 11/24: No acute events overnight. Lortab 5/325 mg PRN for pain added to medication regimen. 11/25: Afebrile. Patient resting comfortably, no acute events overnight. Patient awake and responsive. Patient noted to have a poor appetite with pureed diet supplementation with boost supplementation with every meal added. 11/26 No events overnight. On Lasix 10mg/hr. Awake and alert. Afebrile. Objective Vital Signs Date Time Temp Pulse Resp B/P (MAP) Pulse Ox O2 Delivery O2 Flow Rate FiO2 11/26/17 06:00 123 11/26/17 04:00 98.0 19 114/59 (77) 91 11/25/17 19:19 Nasal Cannula 2.00 11/22/17 08:34 30 Intake and Output 11/26/17 11/26/17 11/27/17 08:00 16:00 00:00 Intake Total 479 ml Output Total 2300 ml Balance -1821 ml Result Diagram: 11/26/17 0405 11/26/17 0405 Other Results Laboratory Tests Test 11/25/17 09:30 11/25/17 15:30 11/25/17 18:40 11/26/17 04:05 White Blood Count 20.1 TH/MM3 21.2 TH/MM3 Red Blood Count 3.26 MIL/MM3 3.11 MIL/MM3 Hemoglobin 9.1 GM/DL 8.9 GM/DL Hematocrit 28.2 % 26.9 % Mean Corpuscular Volume 86.6 FL 86.4 FL Mean Corpuscular Hemoglobin 28.1 PG 28.5 PG Mean Corpuscular Hemoglobin Concent 32.4 % 33.0 % Red Cell Distribution Width 21.1 % 21.1 % Platelet Count 187 TH/MM3 180 TH/MM3 Mean Platelet Volume 8.1 FL 8.1 FL Neutrophils (%) (Auto) 86.2 % 91.5 % Lymphocytes (%) (Auto) 7.2 % 4.4 % Monocytes (%) (Auto) 4.8 % 3.5 % Eosinophils (%) (Auto) 1.7 % 0.4 % Basophils (%) (Auto) 0.1 % 0.2 % Neutrophils # (Auto) 17.3 TH/MM3 19.4 TH/MM3 Lymphocytes # (Auto) 1.4 TH/MM3 0.9 TH/MM3 Monocytes # (Auto) 1.0 TH/MM3 0.7 TH/MM3 Eosinophils # (Auto) 0.4 TH/MM3 0.1 TH/MM3 Basophils # (Auto) 0.0 TH/MM3 0.0 TH/MM3 CBC Comment AUTO DIFF AUTO DIFF Differential Total Cells Counted 100 Neutrophils % (Manual) 84 % Band Neutrophils % 4 % Lymphocytes % 7 % Monocytes % 4 % Eosinophils % 1 % Neutrophils # (Manual) 17.7 TH/MM3 Differential Comment FINAL DIFF MANUAL Platelet Estimate NORMAL Platelet Morphology Comment NORMAL Blood Urea Nitrogen 53 MG/DL 50 MG/DL Creatinine 2.59 MG/DL 2.53 MG/DL Random Glucose 79 MG/DL 106 MG/DL Total Protein 5.0 GM/DL Calcium Level 7.4 MG/DL 7.5 MG/DL Sodium Level 142 MEQ/L 141 MEQ/L Potassium Level 2.7 MEQ/L 2.9 MEQ/L 3.4 MEQ/L Chloride Level 103 MEQ/L 101 MEQ/L Carbon Dioxide Level 28.7 MEQ/L 29.7 MEQ/L Anion Gap 10 MEQ/L 10 MEQ/L Estimat Glomerular Filtration Rate 18 ML/MIN 19 ML/MIN Protein Corrected Calcium 8.6 MG/DL Urine Color LIGHT-YELLOW Urine Turbidity CLOUDY Urine pH 5.0 Urine Specific [place] 1.012 Urine Protein TRACE mg/dL Urine Glucose (UA) NEG mg/dL Urine Ketones NEG mg/dL Urine Occult Blood MOD Urine Nitrite NEG Urine Bilirubin NEG Urine Urobilinogen LESS THAN 2.0 MG/DL Urine Leukocyte Esterase LARGE Urine RBC 60 /hpf Urine WBC /hpf Urine WBC Clumps MANY Urine Squamous Epithelial Cells <1 /hpf Urine Bacteria FEW /hpf Urine Mucus FEW /lpf Urine Yeast with Hyphae MANY Urine Yeast (Budding) MANY Microscopic Urinalysis Comment CATH-CULTURE IND Phosphorus Level 4.3 MG/DL Magnesium Level 1.3 MG/DL Imaging Last Impressions Chest X-Ray 11/24/17 0000 Signed Impressions: Service Date/Time: Friday, November 24, 2017 03:36 - CONCLUSION: 1. Improved right lung consolidation. Persistent consolidation left base. Interval extubation. Sachin Gonzalez MD Abdomen X-Ray 11/17/17 0000 Signed Impressions: Service Date/Time: Friday, November 17, 2017 19:04 - CONCLUSION: The proximal tip of the double-J stent is either in the expected region of the right renal pelvis or proximal ureter. Allen Mensah MD Abdomen/Pelvis CT 11/16/17 0000 Signed Impressions: Service Date/Time: Thursday, November 16, 2017 08:54 - CONCLUSION: 1. Moderate hydronephrosis right kidney and hydroureter. There is dense material layering within the right renal pelvis and distal ureter of uncertain etiology but could be hemorrhage. Urinalysis and clinical correlation. 2. Hyperdense left renal lesion likely complex cyst. 3. Scattered diverticulosis of the colon. 4. Left basilar consolidation. 5. Left-sided ventral wall hernia. El Nuñez MD Chest CT 11/15/17 1255 Signed Impressions: Service Date/Time: November 14:24 - CONCLUSION: 1. New consolidative infiltrate in the posterior right upper lobe most characteristic of pneumonia. 2. Consolidation also noted in the left lower lobe which is increased from the prior CT. 3. New abnormal streaky density in the posterior upper abdomen located posterior to the liver. This is nonspecific but could represent infection or inflammatory change. 4. Cardiomegaly. Chintan Marshall MD Head CT 11/15/17 1134 Signed Impressions: Service Date/Time: November 14:13 - CONCLUSION: 1. No acute hemorrhage or mass effect. 2. Atrophy and chronic small vessel ischemic change 3. Air-fluid levels in the maxillary sinuses most characteristic of acute sinusitis. Chintan Marshall MD Objective Remarks GENERAL: This is a well-developed well nourished obese female 67 yo lying in bed in NAD SKIN: Warm and dry. HEAD: Normocephalic. EYES: No scleral icterus. No injection or drainage. NECK: Supple, trachea midline. No JVD or lymphadenopathy. CARDIOVASCULAR: Tachycardic without murmurs, gallops, or rubs. RESPIRATORY: Breath sounds equal bilaterally. No accessory muscle use. GASTROINTESTINAL: Abdomen soft, protuberant, non-tender, nondistended. MUSCULOSKELETAL: No cyanosis, + edema. Neuro: Awake and alert A/P Assessment and Plan Neuro: Metabolic Encephalopathy - improved Chronic Pain - Awake and alert - Lortab 5/325 mg PRN Resp: Acute hypoxic and hypercarbic respiratory failure- Extubated 11/22 Healthcare Associated Pneumonia Continue with oxygen keep sat >92% Bronchodilators, IS NIPPV PRN for resp distress - sputum culture: MRSA 11/24 CXR-improved right lung consolidation, persistent left base consolidation CV: s/p Septic Shock - Atrial fibrillation with rapid ventricular response - On Lopressor 25mg Q12 Monitor HR and BP keep MAP>65mmHg Taper steroids- decrease Hydrocortisone 25mg IV daily x 3 days then stop. Renal: Acute Kidney Injury Acute pyelonephritis Monitor renal function, I/O's, avoid nephrotoxins Lasix 100mg/hr per nephrology Cr: 2.53 today, UOP:4700ml in 24 hrs - s/p Emergent cysto with stent 11/16, Urology is following Renal is following- Dr. Lopez -Give KCL 40meqIV x1 for K 3.4 and Mag sulfate 1gm IV x1 FEN/GI: Super Morbid Obesity Lactic Acidosis- cleared Anion-gap Metabolic acidosis Acute intravascular volume overload Severe acute protein calorie malnutrition -Pured diet, poor oral intake -Pepcid for GI prophylaxis Heme/ID: History of prior MRSA pneumonia Acute pyelonephritis Pseudomonas bacteremia Positive C-diff - ID on board. - Abx per Nemani. On Zyvox, Fortaz, PO Vanco. Monitor for signs of infections ( Fever, WBC) -Follow up urine cx 11/25 -For repeat CT abdomen/pelvis and CT chest per ID -11/20 BC :NGTD -11/17 BC: Coag negative staph 1/4 bottles..likely contaminant - 11/17 Urine cx :Pseudomonas - 2/1 blood cultures: pseudomonas - 2/1 urine culture: pseudomonas - 2/1 sputum culture: MRSA Endocrine: Hyperglycemia of Critical Illness - q6h SSI, med scale Musculoskeletal: Polyneuropathy of critical illness - Generalized anasarca -PT/OT evaluate and treat -Left hip shear-wound care consulted, recommendations implemented. Specialty bed Prophylaxis: SCDs, SQH Pepcid Lines: - Solitario patient on Lasix drip PT/OT eval and treat Level 2 Juma Pak MD Nov 26, 2017 07:18
[2017-11-26 07:53] LABS: BANDS 3 % (0-6); CORRECTED NUCLEATED RBC 1 /100 WBC (0-0); LYMPHOCYTES 2 % (9-44); METAMYELOCYTES 4 % (0-1); MONOCYTES 4 % (0-8); NEUTROPHIL # MANUAL DIFF 19.9 TH/MM3 (1.8-7.7); NUCLEATED RED BLOOD CELL 1 (0-0); POLYS (SEG NEUTROPHILS) 87 % (16-70)
[2017-11-26 07:55] LABS: SPHEROCYTES OCC (NORMAL)
[2017-11-26] MEDS: CHLORHEXIDINE 0.12% (ORAL KIT) 15 ML CUP MT SCH ×2 (08:00→20:00)
[2017-11-26] MEDS: FUROSEMIDE INJ 100 MG in SODIUM CHLORIDE 0.9% INJ 90 ML IV SCH ×2 (09:20→21:54)
[2017-11-26] MEDS: METOPROLOL TARTRATE 25 MG TAB PO SCH ×2 (09:21→21:47)
[2017-11-26] MEDS: DOCUSATE SODIUM 50 MG/SENNA 8.6 MG TAB PO SCH ×2 (09:21→21:00)
[2017-11-26] MEDS: HYDROCORTISONE SOD SUCCINATE 100 MG VIAL IV PUSH SCH (09:21)
[2017-11-26] MEDS: VANCOMYCIN 25 MG/ML SUSP 100 ML BOTTLE PO SCH ×4 (09:21→21:50)
[2017-11-26] MEDS: FAMOTIDINE 20 MG/2 ML VIAL IV PUSH SCH ×2 (09:22→21:47)
--- NOTE | 2017-11-26 09:54 | HHI.IDPN ---
Subjective Subjective Remarks is a 67 y/o CF morbidly obese with BMI 58.7 kg/m2 who has had multiple prior admissions for MRSA pneumonia and respiratory failure presents by EMS for recurrent respiratory failure. She resides in a SNF. She was found unresponsive this morning. She was intubated in the field. She has a wbc 52k, lactate of 6.9, Cr 2.87 (baseline 0.5, prior admission discharge was 1.8). u/a concerning for probable UTI as well. In the emergency department patient received 3 IV fluid boluses and continued to be hypotensive needing vasopressor support. Upon review of records it appears she was recently treated in Oct 15 for UTI at [facility] with macrobid. EMAR from [facility] with no antibiotics but was on lactobacillus. Spoke to HCILO Moura at [facility] patient has 2-3 episodes of vomiting yesterday at [facility] and received antiemetics. T:98, BP: 110/62, 96% RA, BS: 108. Patient was not on any antibiotics. No diarrhea. Lasix increased due to pedal edema. No cultures drawn. No flu test done per records. She has a prior h/o admission at [facility] admitted in late 2016 when she was in the ICU intubated needing a trach eventually. During that admission patient was treated for MRSA pneumonia but also she has a history of pseudomonas infections in the past. Pseudomonas in the past with pansensitive cultures but given her multiple hospitalization and multiple courses of antibiotics she stands at this for multidrug-resistant Pseudomonas. At the time of my evaluation patient is in the IMC appears very critically ill intubated. Patient is on vasopressin 0.04, we will fed 40 mics, epinephrine 10/9, amiodarone drip at 1 g. Patient has 0 urine output at the present time. She has small white secretions. She has no diarrhea. Abdomen appears benign. No response to verbal or other stimuli for me but RN reports when daughter was here earlier she opened eyes, moved limbs and squeezed RNs fingers. Currently sedation is off but patient in ARF with no urine output. Infectious disease consultation was requested for evaluation and management of septic shock, pneumonia. Notes reviewed. D/W RN Vocalizes and answers basic questions. Off pressors. on lasix drip. Solitario in place. No fevers No rash Diarrhea Cdiff positive. WBC remains elevated. Repeat UA still reflexed concern for pyonephrosis/renal abscess vs ABX resistance. Antibiotics Current Medications Medications (Trade) Dose Ordered Sig/Mirta Route Start Time Stop Time Status Last Admin (Brethine Inj) 1 mg UNSCH PRN SQ 11/15/17 12:45 (D50w (Vial) Inj) 25 ml UNSCH PRN IV PUSH 11/15/17 14:00 (NovoLIN R SUPPLEMENTAL SCALE) 1 Q6HR SQ 11/15/17 18:00 11/20/17 17:43 (Duoneb Neb) 1 ampule Q2HR NEB PRN INH 11/15/17 14:00 11/17/17 23:39 (Tylenol) 650 mg Q6H PRN PO 11/15/17 14:00 11/22/17 07:57 (Pepcid Inj) 10 mg Q12HR IV PUSH 11/15/17 21:00 11/26/17 09:22 (Zofran Inj) 4 mg Q6H PRN IV PUSH 11/15/17 14:00 (Heparin Inj) 5,000 units Q8H SQ 11/15/17 15:00 11/26/17 05:47 Miscellaneous Information 1 Q361D XX 11/15/17 14:00 11/15/17 19:00 (Chlorhexidine 2% Cloth) Taper DAILY@04 TOP 11/16/17 04:00 11/12/18 03:59 11/23/17 04:00 (Chlorhexidine 2% Cloth) 3 pack UNSCH PRN TOP 11/15/17 14:00 (Zelda-Colace) 1 tab BID PO 11/15/17 21:00 11/26/17 09:21 (Milk Of Magnesia Liq) 30 ml Q12H PRN PO 11/15/17 14:00 (Senokot) 17.2 mg Q12H PRN PO 11/15/17 14:00 (Dulcolax Supp) 10 mg DAILY PRN RECTAL 11/15/17 14:00 (Lactulose Liq) 30 ml DAILY PRN PO 11/15/17 14:00 Linezolid 300 ml @ 300 mls/hr Q12H IV 11/16/17 07:00 11/26/17 05:46 (Peridex 0.12% Liq) 15 ml BID@08,20 MT 11/16/17 20:00 11/26/17 08:00 (Lopressor) 25 mg Q12HR PO 11/21/17 09:00 11/26/17 09:21 Furosemide 100 mg/ Sodium Chloride 100 ml @ 10 mls/hr CONTINUOUS IV 11/21/17 11:00 11/26/17 09:20 (Duoneb Neb) 1 ampule Q4HR NEB NEB 11/22/17 12:00 11/26/17 07:27 (Vancomycin 25 Mg/ml Liq) 125 mg QID PO 11/24/17 09:00 11/26/17 09:21 ([place] 5-325 Mg) 1 tab Q4H PRN PO 11/24/17 18:15 (SoluCORTEF INJ) 25 mg DAILY IV PUSH 11/26/17 09:00 11/26/17 09:21 (Mycostatin Cream) 1 applic Q6HR TOPICAL 11/26/17 12:00 UNV Ceftolozane/ Tazobactam 1500 mg/Sodium Chloride 100 ml @ 100 mls/hr Q8H IV 11/26/17 10:00 UNV Lines RIJ TLC Past Medical History Past Medical History Chronic asthma home oxygen Atrial fibrillation Hyperlipidemia Hypertension excellent diabetes mellitus GERD Morbid obesity BMI 55 Past Surgical History Appendectomy Hernia surgery Tracheostomy placement Allergies: Coded Allergies: penicillin G (Unverified Allergy, Severe, 05/29/17) Objective . Vital Signs Date Time Temp Pulse Resp B/P (MAP) Pulse Ox O2 Delivery O2 Flow Rate FiO2 11/26/17 07:27 97 Nasal Cannula 2.00 11/26/17 06:00 123 11/26/17 04:00 98.0 119 19 114/59 (77) 91 11/26/17 04:00 119 11/26/17 02:00 117 11/26/17 00:00 98.4 109 18 124/66 (85) 100 11/26/17 00:00 109 11/25/17 22:00 116 11/25/17 20:00 127 11/25/17 20:00 98.4 127 18 102/54 (70) 97 11/25/17 19:19 99 Nasal Cannula 2.00 11/25/17 16:00 98.0 122 18 97/50 (66) 98 11/25/17 15:01 123 18 103/55 (71) 97 11/25/17 14:00 119 19 117/57 (77) 97 11/25/17 13:01 123 20 130/59 (82) 98 11/25/17 12:00 97.8 118 18 108/51 (70) 97 11/25/17 11:00 114 18 119/53 (75) 99 11/25/17 10:00 109 15 110/60 (77) 100 . Laboratory Tests Test 11/25/17 09:30 11/26/17 04:05 White Blood Count 20.1 TH/MM3 21.2 TH/MM3 Red Blood Count 3.26 MIL/MM3 3.11 MIL/MM3 Hemoglobin 9.1 GM/DL 8.9 GM/DL Hematocrit 28.2 % 26.9 % Mean Corpuscular Volume 86.6 FL 86.4 FL Mean Corpuscular Hemoglobin 28.1 PG 28.5 PG Mean Corpuscular Hemoglobin Concent 32.4 % 33.0 % Red Cell Distribution Width 21.1 % 21.1 % Platelet Count 187 TH/MM3 180 TH/MM3 Mean Platelet Volume 8.1 FL 8.1 FL Neutrophils (%) (Auto) 86.2 % 91.5 % Lymphocytes (%) (Auto) 7.2 % 4.4 % Monocytes (%) (Auto) 4.8 % 3.5 % Eosinophils (%) (Auto) 1.7 % 0.4 % Basophils (%) (Auto) 0.1 % 0.2 % Neutrophils # (Auto) 17.3 TH/MM3 19.4 TH/MM3 Lymphocytes # (Auto) 1.4 TH/MM3 0.9 TH/MM3 Monocytes # (Auto) 1.0 TH/MM3 0.7 TH/MM3 Eosinophils # (Auto) 0.4 TH/MM3 0.1 TH/MM3 Basophils # (Auto) 0.0 TH/MM3 0.0 TH/MM3 CBC Comment AUTO DIFF AUTO DIFF Differential Total Cells Counted 100 100 Neutrophils % (Manual) 84 % 87 % Band Neutrophils % 4 % 3 % Lymphocytes % 7 % 2 % Monocytes % 4 % 4 % Eosinophils % 1 % Neutrophils # (Manual) 17.7 TH/MM3 19.9 TH/MM3 Differential Comment FINAL DIFF MANUAL FINAL DIFF MANUAL Platelet Estimate NORMAL NORMAL Platelet Morphology Comment NORMAL NORMAL Metamyelocytes 4 % Nucleated Red Blood Cells 1 /100 WBC Basophilic Stippling MOD Spherocytes OCC Laboratory Tests Test 11/25/17 09:30 11/25/17 18:40 11/26/17 04:05 Blood Urea Nitrogen 53 MG/DL 50 MG/DL Creatinine 2.59 MG/DL 2.53 MG/DL Random Glucose 79 MG/DL 106 MG/DL Total Protein 5.0 GM/DL Calcium Level 7.4 MG/DL 7.5 MG/DL Sodium Level 142 MEQ/L 141 MEQ/L Potassium Level 2.7 MEQ/L 2.9 MEQ/L 3.4 MEQ/L Chloride Level 103 MEQ/L 101 MEQ/L Carbon Dioxide Level 28.7 MEQ/L 29.7 MEQ/L Anion Gap 10 MEQ/L 10 MEQ/L Estimat Glomerular Filtration Rate 18 ML/MIN 19 ML/MIN Protein Corrected Calcium 8.6 MG/DL Phosphorus Level 4.3 MG/DL Magnesium Level 1.3 MG/DL Microbiology Date/Time Source Procedure Growth Status 11/25/17 15:30 Urine Catheterized Urine Urine Culture Pending Received Imaging Last Impressions Abdomen X-Ray 11/17/17 0000 Signed Impressions: Service Date/Time: Friday, November 17, 2017 19:04 - CONCLUSION: The proximal tip of the double-J stent is either in the expected region of the right renal pelvis or proximal ureter. Allen Mensah MD Chest X-Ray 11/16/17 0000 Signed Impressions: Service Date/Time: Thursday, November 16, 2017 12:43 - CONCLUSION: 1. Right IJ central line tip near the atriocaval junction. 2. No gross pneumothorax or significant interval change. Riccardo Stack MD Abdomen/Pelvis CT 11/16/17 0000 Signed Impressions: Service Date/Time: Thursday, November 16, 2017 08:54 - CONCLUSION: 1. Moderate hydronephrosis right kidney and hydroureter. There is dense material layering within the right renal pelvis and distal ureter of uncertain etiology but could be hemorrhage. Urinalysis and clinical correlation. 2. Hyperdense left renal lesion likely complex cyst. 3. Scattered diverticulosis of the colon. 4. Left basilar consolidation. 5. Left-sided ventral wall hernia. El Nuñez MD Chest CT 11/15/17 1255 Signed Impressions: Service Date/Time: November 14:24 - CONCLUSION: 1. New consolidative infiltrate in the posterior right upper lobe most characteristic of pneumonia. 2. Consolidation also noted in the left lower lobe which is increased from the prior CT. 3. New abnormal streaky density in the posterior upper abdomen located posterior to the liver. This is nonspecific but could represent infection or inflammatory change. 4. Cardiomegaly. Chintan Marshall MD Head CT 11/15/17 1134 Signed Impressions: Service Date/Time: November 14:13 - CONCLUSION: 1. No acute hemorrhage or mass effect. 2. Atrophy and chronic small vessel ischemic change 3. Air-fluid levels in the maxillary sinuses most characteristic of acute sinusitis. Chintan Marshall MD Physical Exam GENERAL: Morbidly obese patient, intubated. NAD. Opens eyes when stimulated. Not following SKIN: Ecchymoses noted. Left thigh large 15x10 cm approx area of erythema, abrasion of skin noted, looks better Skin folds in groin and breast with erythema and fungal overgrowth, improving HEAD: Atraumatic. Normocephalic. No temporal or scalp tenderness. EYES: Pupils equal round and reactive. No icterus, pale conjunctiva. Large neck. ENT: No nasal drainage Prior trach site ok. NECK: Trachea midline. Supple, nontender, no meningeal signs. CARDIOVASCULAR: HS audible and distant. RESPIRATORY: Clear to auscultation anteriorly. Distant breath sounds. GASTROINTESTINAL: Abdomen obese, diffuse tenderness, midline ventral hernia. Pannus noted. MUSCULOSKELETAL: Pedal edema noted. No cyanosis NEUROLOGICAL: Alert, follows commands, moves all 4 extremities. IV line sites with no e.o infection. : Solitario in place color looks better Assessment & Plan Remarks IMPRESSION PSAE sepsis, with Septic shock with multiorgan dysfunction syndrome due to complicated UTI - has R pyonephrosis, S/P cysto and stent placement - still on pressors but decreasing dose, WBC lower, temps better, creatinine decreasing Pneumonia, C/S MRSA 1. Aspiration pneumonia highly likely given multiple episodes of vomiting prior to admission in the correction 2. Possible post influenza necrotizing pneumonia. 3. Health care pneumonia. Diarrhea: Cdiff positive. Leukemoid reaction: Cdiff, other infections, steroids. Staph coag neg bacteremia: likely contaminant. Acute respiratory failure on vent Acute renal failure with anuria, due to sepsis and shock. Morbid obesity BMI 58.7 KG per meter squared Nausea vomiting prior to admission Recommendations: DC Ceftazidime IV Start Zerbaxa IV Continue Zyvox IV (MRSA pneumonia in a ARF patient with oliguria, additional exotoxin neutralization effect for Staph, MRSA and Strep pneumonia) Continue oral Vanco. Repeat UA reflexed to culture concern for ABX resistance vs pyonephrosis/renal abscess. Check CT C/A/P without IV contrast to assess above as well as follow up on MRSA pneumonia. d.w . Follow cultures Follow clinically. D/W Amy Crenshaw MD Nov 26, 2017 09:54
[2017-11-26] MEDS ORDERED: DIATRIZOATE MEGLUM/DIATRIZOATE SOD 9 ML CUP PO ONE (09:59)
--- NOTE | 2017-11-26 11:18 | HHI.NPPN ---
Subjective General Problems: Edema Renal Failure: Acute Interval History Diuresing well, lasix at 10 mg/hr. No new concerns. (Suad Lucas) Review of Systems Respiratory Lungs: SOB (Suad Lucas) Cardiovascular Cardiac: Edema (Suad Lucas) Objective Data Data 11/26/17 11/27/17 19:00 07:00 Intake Total 400 ml Balance 400 ml IV Total 400 ml Vital Signs Date Time Temp Pulse Resp B/P (MAP) Pulse Ox O2 Delivery O2 Flow Rate FiO2 11/26/17 10:00 124 20 121/90 (100) 99 11/26/17 10:00 124 11/26/17 09:00 117 11/26/17 09:00 117 15 119/56 (77) 97 11/26/17 08:00 98.6 117 15 112/55 (74) 97 11/26/17 08:00 117 11/26/17 07:27 97 Nasal Cannula 2.00 11/26/17 06:00 123 11/26/17 04:00 98.0 119 19 114/59 (77) 91 11/26/17 04:00 119 11/26/17 02:00 117 11/26/17 00:00 98.4 109 18 124/66 (85) 100 11/26/17 00:00 109 11/25/17 22:00 116 11/25/17 20:00 127 11/25/17 20:00 98.4 127 18 102/54 (70) 97 11/25/17 19:19 99 Nasal Cannula 2.00 11/25/17 16:00 98.0 122 18 97/50 (66) 98 11/25/17 15:01 123 18 103/55 (71) 97 11/25/17 14:00 119 19 117/57 (77) 97 11/25/17 13:01 123 20 130/59 (82) 98 11/25/17 12:00 97.8 118 18 108/51 (70) 97 (Suad Lucas) -: 11/26/17 0405 11/26/17 0405 Microbiology 11/25/17 Urine Culture, Received Pending Imaging Last 72 hours Impressions Chest X-Ray 11/24/17 0000 Signed Impressions: Service Date/Time: Friday, November 24, 2017 03:36 - CONCLUSION: 1. Improved right lung consolidation. Persistent consolidation left base. Interval extubation. Sachin Gonzalez MD Tubes & Lines: Solitario Tubes & Lines Comment TLC right IJ Drip Comment Lasix at 10 mg/hr (Suad Lucas) Physical Exam General Appearance: Well Nourished, Comfortable, Obese (Suad Lucas SOLUTION LEAD) Eyes Eye Exam: Pupils Equal (Suad Lucas SOLUTION LEAD) Throat Throat Exam: Oral Mucosa [place] & Moist (Suad Lucas SOLUTION LEAD) Neck Neck Exam: Neck Supple (Suad Lucas SOLUTION LEAD) Pulmonary Resp Exam: Breath Sounds Equal, No Distress, Crackles Resp Remarks In bases, expiratory wheezing (Suad Lucas SOLUTION LEAD) Cardiology CV Exam: Regular, Good Perfusion, Tachycardia (Suad Lucas. SOLUTION LEAD) Gastrointestinal/Abdomen GI Exam: Soft, Non-Tender, Bowel Sounds Present GI Remarks morbidly obese (Suad LucasP) Musculoskeletal MS Exam: Joints Intact, Normal Tone, Unable to Ambulate (Suad Lucas SOLUTION LEAD) Integumentary Skin Exam: Warm, Dry (Suad LucasP) Extremeties Extremities Exam: Moderate Edema, Pitting Edema, Dependent Edema Extremeties Remarks anasarca , 4+ pitting (Suad Lucas. SOLUTION LEAD) Neurologic Neuro Exam: Alert, Awake, Oriented, Speech Clear (Suad Lucas SOLUTION LEAD) Psychiatric Psych Exam: Appropriate Responses (Suad Lucas) Assessment/Plan Discussed Condition With: Patient Assessment Summary: FREDDY/Acute Renal Failure, Fluid/Volume Overload, Hypotension Electrolyte Assessment: Hypokalemia Problem List: (1) FREDDY (acute kidney injury) ICD Codes: N17.9 - Acute kidney failure, unspecified Plan: In January 2017 her renal function was normal. Had FREDDY in September, creatinine at discharge was 1.8 Obstructive uropathy, s/p R ureteral stent placement on the 2nd FREDDY also due to urosepsis with renal hyperperfusion Renal function has been improving Continue Lasix gtt at 10 mg/hr Replace K as needed, prefer PO route Repeat labs daily Avoid nephrotoxic agents. Some edema may be chronic, due to obesity (2) Pneumonia ICD Codes: J18.9 - Pneumonia, unspecified organism Status: Acute Plan: ID following, on Ceftazidime and Zyvox. Suspected aspiration PNA from vomiting. (3) Septic shock ICD Codes: A41.9 - Sepsis, unspecified organism; R65.21 - Severe sepsis with septic shock Plan: Pseudomonas sepsis Continue supportive care (4) Respiratory failure ICD Codes: J96.90 - Respiratory failure, unspecified, unspecified whether with hypoxia or hypercapnia Plan: Successfully extubated Monitor respiratory status (Suad Lucas) Plan patient was seen and examined. She is diuresing well with Lasix drip. She still has significant anasarca. Renal function is stable. (Mohinder Lopez MD) Suad Lucas Nov 26, 2017 11:18 Mohinder Lopez MD Nov 26, 2017 19:36
[2017-11-26] MEDS: CEFTOLOZANE-TAZOBACTAM INJ 1,500 MG in SODIUM CHLORIDE 0.9% INJ 100 ML IV SCH ×2 (12:46→19:58)
[2017-11-26] MEDS: NYSTATIN 100,000 UNIT/GM CREAM 15 GM TOPICAL SCH ×3 (12:46→23:28)
[2017-11-26] MEDS ORDERED: POTASSIUM CHLOR 40 MEQ PREMIX 100 ML IV ONE (14:00)
--- NOTE | 2017-11-26 17:48 | RADRPT ---
EXAM DATE/TIME: 11/26/2017 17:16 [facility] COMPARISON: CT ABDOMEN & PELVIS W/O CONTRAST, November 16, 2017, 8:54. INDICATIONS : Pyonephrosis ORAL CONTRAST: Prescribed oral contrast ingested. RADIATION DOSE: 23.09 CTDIvol (mGy) ; Combined studies - Thorax/Abdomen/Pelvis MEDICAL HISTORY : Cardiovascular disease. Hypertension. Hernia, hiatal. SURGICAL HISTORY : Appendectomy. ENCOUNTER: Initial ACUITY: 1 day PAIN SCALE: 8/10 LOCATION: Abdomen TECHNIQUE: Volumetric scanning of the abdomen and pelvis was performed. Using automated exposure control and ad justment of the mA and/or kV according to patient size, radiation dose was kept as low as reasonably achievable to obtain optimal diagnostic quality images. DICOM format image data is available electro nically for review and comparison. FINDINGS: Minimal bibasilar consolidative changes are noted. Moderate artifact is present from the arms. The liver, spleen and pancreas are grossly free of focal defects Double-J stent is present in the right kidney. The left kidney is unremarkable Bladder and rectal tube are noted I don't see free air. I don't see an abscess. CONCLUSION: Very limited exam because of arms and body habitus. I don't see abscess or free air. Double-J stent on the right. Joseph Baeza MD FACR on November 26, 2017 at 17:43 Board Certified Radiologist. This report was verified electronically.
--- NOTE | 2017-11-26 18:12 | RADRPT ---
EXAM DATE/TIME: 11/26/2017 17:16 [facility] COMPARISON: CT THORAX W/O CONTRAST, November 15, 2017, 14:24. INDICATIONS : Pneumonia RADIATION DOSE: 23.09 CTDIvol (mGy) ; Combined studies - Thorax/Abdomen/Pelvis MEDICAL HISTORY : Cardiovascular disease. Hypertension. Hernia, hiatal. SURGICAL HISTORY : Appendectomy. ENCOUNTER: Initial ACUITY: 1 day PAIN SCALE: Non-responsive LOCATION: chest TECHNIQUE: Volumetric scanning of the chest was performed. Using automated exposure control and adjustment of t he mA and/or kV according to patient size, radiation dose was kept as low as reasonably achievable to obtain optimal diagnostic quality images. DICOM format image data is available electronically for r eview and comparison. Follow-up recommendations for detected pulmonary nodules are based at a minimum on nodule size and pa tient risk factors according to Fleischner Society Guidelines. FINDINGS: Compare November 15. Previous right upper lobe consolidation has nearly completely resolved. Left-side d lung consolidation has improved since the prior exam. There is a small right effusion and trace lef t pleural fluid which have increased since November 15. No hilar, mediastinal or axillary adenopathy. Right central line in right atrium. Moderate coronary calcifications. CONCLUSION: 1. Improvement in bilateral lung consolidation since November 15. Interval development of small bilate ral effusions, right greater than left. Sachin Gonzalez MD on November 26, 2017 at 18:05 Board Certified Radiologist. This report was verified electronically.
[2017-11-26] MEDS: FLUCONAZOLE 100 MG TAB PO SCH (21:50)
[2017-11-26 23:18] LABS: MAGNESIUM 1.4 MG/DL (1.5-2.5)
[2017-11-26] MEDS: POTASSIUM CHLOR 40 MEQ PREMIX 100 ML IV SCH (23:27)
[2017-11-27] VITALS (26 sets, daily range): BP systolic 78–162; BP diastolic 51–101; PULSE 110–129; RESP 16–25; TEMP 97.5–99.1; O2SAT 92–100
[2017-11-27] MEDS: CHLORHEXIDINE GLUCONATE 2 % 1 PACK (2 CLOTHS) TOP SCH (02:04)
[2017-11-27] MEDS: CEFTOLOZANE-TAZOBACTAM INJ 1,500 MG in SODIUM CHLORIDE 0.9% INJ 100 ML IV SCH ×3 (02:08→17:53)
[2017-11-27] MEDS: POTASSIUM CHLOR 40 MEQ PREMIX 100 ML IV SCH (02:08)
[2017-11-27] MEDS: INSULIN NovoLIN REGULAR SUPPLEMENTAL SCALE SQ SCH ×4 (05:51→23:22)
[2017-11-27] MEDS: NYSTATIN 100,000 UNIT/GM CREAM 15 GM TOPICAL SCH ×4 (05:51→23:22)
[2017-11-27 05:59] LABS: AUTOMATED NEUTROPHIL # 18.7 TH/MM3 (1.8-7.7); BASOPHIL # 0.1 TH/MM3 (0-0.2); BASOPHIL % 0.4 % (0.0-2.0); EOSINOPHIL # 0.5 TH/MM3 (0-0.4); EOSINOPHIL % 2.1 % (0.0-4.0); HEMATOCRIT 26.8 % (35.0-46.0); LYMPHOCYTE # 1.3 TH/MM3 (1.0-4.8); MEAN CELL VOLUME 86.5 FL (80.0-100.0); MEAN CORPUSCULAR HEMOGLOBIN 29.1 PG (27.0-34.0); MEAN CORPUSCULAR HGB CONC 33.7 % (32.0-36.0); MEAN PLATELET VOLUME 7.8 FL (7.0-11.0); MONO % 5.3 % (0.0-8.0); MONOCYTE # 1.1 TH/MM3 (0-0.9); NEUT % 86.2 % (16.0-70.0); PLATELET COUNT 161 TH/MM3 (150-450); RED CELL DISTRIBUTION WIDTH 20.4 % (11.6-17.2); WHITE BLOOD COUNT 21.7 TH/MM3 (4.0-11.0)
[2017-11-27] MEDS: HEPARIN SODIUM - SQ 10,000 UNITS/ML VIAL SQ SCH ×3 (06:00→21:31)
[2017-11-27] MEDS: LINEZOLID 600 MG PREMIX 300 ML IV SCH ×2 (06:00→18:29)
[2017-11-27 06:53] LABS: BICARBONATE 31.2 MEQ/L (21.0-32.0); CALCIUM 7.4 MG/DL (8.5-10.1); CREATININE 2.46 MG/DL (0.50-1.00); MAGNESIUM 1.5 MG/DL (1.5-2.5); PHOSPHORUS 4.3 MG/DL (2.5-4.9)
[2017-11-27 07:19] LABS: CALCIUM-PROTEIN CORRECTED 8.4 MG/DL (8.5-10.1); TOTAL PROTEIN 5.3 GM/DL (6.4-8.2)
[2017-11-27] MEDS: CHLORHEXIDINE 0.12% (ORAL KIT) 15 ML CUP MT SCH ×2 (08:00→21:30)
[2017-11-27] MEDS: FAMOTIDINE 20 MG/2 ML VIAL IV PUSH SCH ×2 (08:42→21:30)
[2017-11-27] MEDS: HYDROCORTISONE SOD SUCCINATE 100 MG VIAL IV PUSH SCH (08:43)
[2017-11-27] MEDS: FLUCONAZOLE 100 MG TAB PO SCH (08:43)
[2017-11-27] MEDS: DOCUSATE SODIUM 50 MG/SENNA 8.6 MG TAB PO SCH ×2 (08:43→21:30)
[2017-11-27] MEDS: VANCOMYCIN 25 MG/ML SUSP 100 ML BOTTLE PO SCH ×4 (08:43→21:31)
[2017-11-27] MEDS: METOPROLOL TARTRATE 25 MG TAB PO SCH (08:43)
[2017-11-27] MEDS: FUROSEMIDE INJ 100 MG in SODIUM CHLORIDE 0.9% INJ 90 ML IV SCH (08:49)
[2017-11-27] MEDS ORDERED: SODIUM CHLORID 0.9% 500 ML INJ 500 ML IV ONE (09:15)
--- NOTE | 2017-11-27 09:18 | HHI.CCPN ---
Subjective Remarks/Hospital Course Hospital Course: 67yF with super morbid obesity who has had multiple prior admissions for MRSA pneumonia and respiratory failure presents by EMS for recurrent respiratory failure. She resides in a SNF. She was found unresponsive this morning. She was intubated in the field. In the emergency department she was hypotensive despite ivf resuscitation and required norepinephrine for vasopressor support. she has a wbc 52k, lactate of 6.9, Cr 2.87 (baseline 0.5, prior admission discharge was 1.8). u/a concerning for probable UTI as well. Subjective: 2: remained unstable throughout the night overnight. on 3 vasopressors. this morning, no better, wbc higher. decision by Dr. Cartagena and myself to emergently CT abd/pelvis to rule out source control, despite ongoing hemodynamic instability. CT abd/pelvis demonstrated right hydronephrosis with likely obstructive pyelonephritis. discussed with urology and interventional radiology : likely to decompensate during procedure. unable to physically prone patient. difficult technically with high risk to do supine lateral CT guided perc nephrostomy tube. urology to take to the OR for cysto with stenting. Prior to leaving for OR, patient's central line was pulled accidentally. patient had no other iv access. I/O needles unavailable. emergently replaced central line in right IJ (see separate procedure note for details). due to ongoing shock, patient's blood pressure in 40s systolic during this time. restarted vasopressors after central access regained. went to OR. cultures growing pseudomonas. 2: minimal improvements. taken to OR yesterday for cysto. minimal uop overnight. off epinephrine but remains on 2 vasopressors, in shock. wbc downtrending but > 50k. 11/18: vasopressor requirements are improving slightly. remains on 2 vasopressors and in shock. blood and urine growing pseudomonas, sputum growing MRSA (history of MRSA pneumonia). wbc downtrending, but remains very high. uop marginal. 11/19 Patient remains sedated and intubated. On Levophed 2 mics, Vasopressin 0.04 mics. WBC is trending down. 11/20 Patient remains intubated and on Precedex for sedation. Remains on Vasopressin and Levophed 8 mics. Afebrile. 11/21 No events overnight. Off pressors and off Precedex. Awake, alert tolerated CPAP for several hrs yesterday 11/22 Patient is awake and alert tolerated CPAP yesterday. Off sedation. Placed on Lasix drip 20mg/hr per renal. Afebrile. 11/23 Patient s/p extubation yesterday on 2L oxygen with good sats. Awake and alert. 11/24: No acute events overnight. Lortab 5/325 mg PRN for pain added to medication regimen. 11/25: Afebrile. Patient resting comfortably, no acute events overnight. Patient awake and responsive. Patient noted to have a poor appetite with pureed diet supplementation with boost supplementation with every meal added. 11/26 No events overnight. On Lasix 10mg/hr. Awake and alert. Afebrile. 11/27 Patient is on 2L oxygen, on Lasix drip 10mg/hr,BP borderline low this morning Objective Vital Signs Date Time Temp Pulse Resp B/P (MAP) Pulse Ox O2 Delivery O2 Flow Rate FiO2 11/27/17 06:00 117 11/27/17 04:00 97.5 19 90/51 (64) 95 11/26/17 20:49 Nasal Cannula 2.00 Intake and Output 11/27/17 11/27/17 11/28/17 08:00 16:00 00:00 Intake Total 500 ml Output Total 2250 ml Balance -1750 ml Result Diagram: 11/27/17 0500 11/27/17 0500 Other Results Laboratory Tests Test 11/26/17 22:50 11/27/17 05:00 Potassium Level 2.9 MEQ/L 3.6 MEQ/L Magnesium Level 1.4 MG/DL 1.5 MG/DL White Blood Count 21.7 TH/MM3 Red Blood Count 3.10 MIL/MM3 Hemoglobin 9.0 GM/DL Hematocrit 26.8 % Mean Corpuscular Volume 86.5 FL Mean Corpuscular Hemoglobin 29.1 PG Mean Corpuscular Hemoglobin Concent 33.7 % Red Cell Distribution Width 20.4 % Platelet Count 161 TH/MM3 Mean Platelet Volume 7.8 FL Neutrophils (%) (Auto) 86.2 % Lymphocytes (%) (Auto) 6.0 % Monocytes (%) (Auto) 5.3 % Eosinophils (%) (Auto) 2.1 % Basophils (%) (Auto) 0.4 % Neutrophils # (Auto) 18.7 TH/MM3 Lymphocytes # (Auto) 1.3 TH/MM3 Monocytes # (Auto) 1.1 TH/MM3 Eosinophils # (Auto) 0.5 TH/MM3 Basophils # (Auto) 0.1 TH/MM3 CBC Comment DIFF FINAL Differential Comment Blood Urea Nitrogen 49 MG/DL Creatinine 2.46 MG/DL Random Glucose 73 MG/DL Total Protein 5.3 GM/DL Calcium Level 7.4 MG/DL Phosphorus Level 4.3 MG/DL Sodium Level 143 MEQ/L Chloride Level 102 MEQ/L Carbon Dioxide Level 31.2 MEQ/L Anion Gap 10 MEQ/L Estimat Glomerular Filtration Rate 20 ML/MIN Protein Corrected Calcium 8.4 MG/DL Imaging Last Impressions Chest CT 11/26/17 0000 Signed Impressions: Service Date/Time: Sunday, November 26, 2017 17:16 - CONCLUSION: 1. Improvement in bilateral lung consolidation since November 15. Interval development of small bilateral effusions, right greater than left. Sachin Gonzalez MD Abdomen/Pelvis CT 11/26/17 0000 Signed Impressions: Service Date/Time: Sunday, November 26, 2017 17:16 - CONCLUSION: Very limited exam because of arms and body habitus. I don't see abscess or free air. Double-J stent on the right. Joseph Baeza MD FACR Chest X-Ray 11/24/17 0000 Signed Impressions: Service Date/Time: Friday, November 24, 2017 03:36 - CONCLUSION: 1. Improved right lung consolidation. Persistent consolidation left base. Interval extubation. Sachin Gonzalez MD Abdomen X-Ray 11/17/17 0000 Signed Impressions: Service Date/Time: Friday, November 17, 2017 19:04 - CONCLUSION: The proximal tip of the double-J stent is either in the expected region of the right renal pelvis or proximal ureter. Allen Mensah MD Head CT 11/15/17 1134 Signed Impressions: Service Date/Time: November 14:13 - CONCLUSION: 1. No acute hemorrhage or mass effect. 2. Atrophy and chronic small vessel ischemic change 3. Air-fluid levels in the maxillary sinuses most characteristic of acute sinusitis. Chintan Marshall MD Objective Remarks GENERAL: This is a well-developed well nourished obese female 67 yo lying in bed in [facility] SKIN: Warm and dry. HEAD: Normocephalic. EYES: No scleral icterus. No injection or drainage. NECK: Supple, trachea midline. No JVD or lymphadenopathy. CARDIOVASCULAR: Tachycardic without murmurs, gallops, or rubs. RESPIRATORY: Breath sounds equal bilaterally. No accessory muscle use. GASTROINTESTINAL: Abdomen soft, protuberant, non-tender, nondistended. MUSCULOSKELETAL: No cyanosis, + edema. Neuro: Awake and alert A/P Assessment and Plan Neuro: Metabolic Encephalopathy - improved Chronic Pain - Awake and alert - Lortab 5/325 mg PRN Resp: Acute hypoxic and hypercarbic respiratory failure- Extubated 11/22 Healthcare Associated Pneumonia Continue with oxygen keep sat >92% Bronchodilators, IS, check ABG NIPPV PRN for resp distress - sputum culture: MRSA CT chest 11/26: Improvement in bilateral lung consolidation since November 15. small bilateral effusions, right greater than left. CV: s/p Septic Shock - Atrial fibrillation with rapid ventricular response - Monitor HR and BP keep MAP>65mmHg. Hold Lopressor Taper steroids- Hydrocortisone 25mg IV daily x 3 days then stop. Renal: Acute Kidney Injury Acute pyelonephritis Monitor renal function, I/O's, avoid nephrotoxins d/c Lasix drip, give NS 500ml bolus Cr: 2.46 today, UOP:4650ml in 24 hrs - s/p Emergent cysto with stent 11/16, Urology is following Renal is following- Dr. Lopez FEN/GI: Super Morbid Obesity Lactic Acidosis- cleared Anion-gap Metabolic acidosis Acute intravascular volume overload Severe acute protein calorie malnutrition -Pured diet, poor oral intake -Pepcid for GI prophylaxis -CT abdomen/pelvis: No abscess or free air Heme/ID: History of prior MRSA pneumonia Acute pyelonephritis Pseudomonas bacteremia Positive C-diff - ID on board. - Abx per Mitzi. On Zyvox, Zerbaxa, PO Vanco, Diflucan. Monitor for signs of infections ( Fever, WBC) -11/25 urine cx : C. Albicans -11/20 BC :NGTD -11/17 BC: Coag negative staph / bottles..likely contaminant - 11/17 Urine cx :Pseudomonas - 2/ blood cultures: pseudomonas - 2/ urine culture: pseudomonas - 2/1 sputum culture: MRSA Endocrine: Hyperglycemia of Critical Illness - q6h SSI, med scale Musculoskeletal: Polyneuropathy of critical illness - Generalized anasarca -PT/OT evaluate and treat Prophylaxis: SCDs, SQH Pepcid Lines: -peripheral IV's PT/OT eval and treat Level 3 Juma Pak MD Nov 27, 2017 09:18
--- NOTE | 2017-11-27 10:02 | HHI.NPPN ---
Subjective General Problems: Edema Renal Failure: Acute Interval History Awake, not in distress. Excellent diuresis. Tachycardia persists. (Suad Lucas) Review of Systems Respiratory Lungs: SOB (Suad Lucas) Cardiovascular Cardiac: Edema (Suad Lucas) Objective Data Data Vital Signs Date Time Temp Pulse Resp B/P (MAP) Pulse Ox O2 Delivery O2 Flow Rate FiO2 11/27/17 06:00 117 11/27/17 04:00 122 11/27/17 04:00 97.5 122 19 90/51 (64) 95 11/27/17 02:00 113 11/27/17 00:00 116 11/27/17 00:00 97.6 116 18 104/59 (74) 97 11/26/17 22:00 125 11/26/17 20:49 98 Nasal Cannula 2.00 11/26/17 20:00 121 11/26/17 20:00 98.5 121 18 109/71 (84) 100 11/26/17 18:00 118 21 98 11/26/17 18:00 118 11/26/17 16:00 98.1 118 20 123/56 (78) 95 11/26/17 16:00 118 11/26/17 15:00 121 11/26/17 14:00 117 11/26/17 13:00 119 11/26/17 12:00 119 20 114/73 (87) 89 11/26/17 12:00 119 11/26/17 10:00 124 20 121/90 (100) 99 11/26/17 10:00 124 (Suad Lucas) -: 11/27/17 0500 11/27/17 0500 Imaging Last [address] 11/26/17 0000 Signed Impressions: Service Date/Time: Sunday, November 26, 2017 17:16 - CONCLUSION: 1. Improvement in bilateral lung consolidation since November 15. Interval development of small bilateral effusions, right greater than left. Sachin Gonzalez MD Abdomen/Pelvis CT 11/26/17 0000 Signed Impressions: Service Date/Time: Sunday, November 26, 2017 17:16 - CONCLUSION: Very limited exam because of arms and body habitus. I don't see abscess or free air. Double-J stent on the right. Joseph Baeza MD FACR Tubes & Lines: Solitario Tubes & Lines Comment TLC right IJ Drip Comment Lasix at 10 mg/hr on hold (Suad Lucas) Physical Exam General Appearance: Well Nourished, Comfortable, Obese (Suad Lucas) Eyes Eye Exam: Pupils Equal (Suad LucasP) Throat Throat Exam: Oral Mucosa [place] & Moist (Suad Lucas) Neck Neck Exam: Neck Supple (Suad Lucas) Pulmonary Resp Exam: Breath Sounds Equal, No Distress, Crackles Resp Remarks In bases, expiratory wheezing (Suad Lucas) Cardiology CV Exam: Regular, Good Perfusion, Tachycardia (Suad Lucas) Gastrointestinal/Abdomen GI Exam: Soft, Non-Tender, Bowel Sounds Present GI Remarks morbidly obese (Suad Lucas) Musculoskeletal MS Exam: Joints Intact, Normal Tone, Unable to Ambulate (Suad Lucas) Integumentary Skin Exam: Warm, Dry (Suad Lucas) Extremeties Extremities Exam: Moderate Edema, Pitting Edema, Dependent Edema Extremeties Remarks anasarca , 4+ pitting (Suad Lucas) Neurologic Neuro Exam: Alert, Awake, Oriented, Speech Clear (Suad LucasP) Psychiatric Psych Exam: Appropriate Responses (Suad Lucas) Assessment/Plan Discussed Condition With: Patient Assessment Summary: FREDDY/Acute Renal Failure, Fluid/Volume Overload, Hypotension Electrolyte Assessment: Hypokalemia Problem List: (1) FREDDY (acute kidney injury) ICD Codes: N17.9 - Acute kidney failure, unspecified Plan: In January 2017 her renal function was normal. Had FREDDY in September, creatinine at discharge was 1.8 Obstructive uropathy, s/p R ureteral stent placement on the 2nd FREDDY also due to urosepsis with renal hyperperfusion Renal function improving Due to tachycardia, IVF bolus ordered. Still has evidence of fluid overload although some edema is most likely chronic Lasix gtt on hold. K and magnesium have been replaced Repeat labs daily Avoid nephrotoxic agents. (2) Pneumonia ICD Codes: J18.9 - Pneumonia, unspecified organism Status: Acute Plan: ID following, on Zerbaxa and Zyvox. (3) Septic shock ICD Codes: A41.9 - Sepsis, unspecified organism; R65.21 - Severe sepsis with septic shock Plan: Pseudomonas sepsis Also po Diflucan for candiduria Continue supportive care (4) Respiratory failure ICD Codes: J96.90 - Respiratory failure, unspecified, unspecified whether with hypoxia or hypercapnia Plan: Successfully extubated Monitor respiratory status (Suad Lucas) Plan patient was seen and examined. Lasix drip stopped by [employer]. She continues to demonstrated significant fluid overload. (Mohinder Lopez MD) Suad Lucas Nov 27, 2017 10:02 Mohinder Lopez MD Nov 27, 2017 10:20
[2017-11-27] MEDS: ACETAMINOPHEN 325 MG TAB PO PRN (16:05)
[2017-11-27] MEDS: ACETAMINOPHEN/HYDROcodone 325 MG/5 MG TAB PO PRN (17:53)
[2017-11-28] VITALS (24 sets, daily range): BP systolic 84–148; BP diastolic 52–92; PULSE 110–135; RESP 14–20; TEMP 96.8–98.2; O2SAT 98–100
[2017-11-28] MEDS: CEFTOLOZANE-TAZOBACTAM INJ 1,500 MG in SODIUM CHLORIDE 0.9% INJ 100 ML IV SCH ×3 (03:18→17:59)
[2017-11-28] MEDS: CHLORHEXIDINE GLUCONATE 2 % 1 PACK (2 CLOTHS) TOP SCH (03:18)
[2017-11-28] MEDS: INSULIN NovoLIN REGULAR SUPPLEMENTAL SCALE SQ SCH ×4 (05:10→22:36)
[2017-11-28] MEDS: NYSTATIN 100,000 UNIT/GM CREAM 15 GM TOPICAL SCH ×4 (05:10→22:36)
[2017-11-28] MEDS: LINEZOLID 600 MG PREMIX 300 ML IV SCH ×2 (05:10→18:00)
[2017-11-28] MEDS: HEPARIN SODIUM - SQ 10,000 UNITS/ML VIAL SQ SCH ×3 (05:10→22:36)
[2017-11-28 05:13] LABS: AUTOMATED NEUTROPHIL # 15.6 TH/MM3 (1.8-7.7); BASOPHIL % 0.2 % (0.0-2.0); EOSINOPHIL # 0.1 TH/MM3 (0-0.4); EOSINOPHIL % 0.6 % (0.0-4.0); HEMATOCRIT 27.6 % (35.0-46.0); HEMOGLOBIN 8.9 GM/DL (11.6-15.3); LYMPH % 6.2 % (9.0-44.0); LYMPHOCYTE # 1.1 TH/MM3 (1.0-4.8); MEAN CORPUSCULAR HEMOGLOBIN 28.1 PG (27.0-34.0); MEAN CORPUSCULAR HGB CONC 32.3 % (32.0-36.0); MEAN PLATELET VOLUME 8.3 FL (7.0-11.0); MONO % 5.3 % (0.0-8.0); MONOCYTE # 0.9 TH/MM3 (0-0.9); NEUT % 87.7 % (16.0-70.0); PLATELET COUNT 166 TH/MM3 (150-450); RED BLOOD COUNT 3.17 MIL/MM3 (4.00-5.30); RED CELL DISTRIBUTION WIDTH 20.2 % (11.6-17.2); WHITE BLOOD COUNT 17.8 TH/MM3 (4.0-11.0)
[2017-11-28 05:21] LABS: BICARBONATE 32.5 MEQ/L (21.0-32.0); CALCIUM 7.6 MG/DL (8.5-10.1); CREATININE 2.27 MG/DL (0.50-1.00)
--- NOTE | 2017-11-28 08:48 | HHI.IDPN ---
Subjective Subjective Remarks Delayed entry for 11/27/2017 is a 67 y/o CF morbidly obese with BMI 58.7 kg/m2 who has had multiple prior admissions for MRSA pneumonia and respiratory failure presents by EMS for recurrent respiratory failure. She resides in a SNF. She was found unresponsive this morning. She was intubated in the field. She has a wbc 52k, lactate of 6.9, Cr 2.87 (baseline 0.5, prior admission discharge was 1.8). u/a concerning for probable UTI as well. In the emergency department patient received 3 IV fluid boluses and continued to be hypotensive needing vasopressor support. Upon review of records it appears she was recently treated in Oct 15 for UTI at [facility] with macrobid. CHOU from [facility] with no antibiotics but was on lactobacillus. Spoke to HCILO Moura at [facility] patient has 2-3 episodes of vomiting yesterday at [facility] and received antiemetics. T:98, BP: 110/62, 96% RA, BS: 108. Patient was not on any antibiotics. No diarrhea. Lasix increased due to pedal edema. No cultures drawn. No flu test done per records. She has a prior h/o admission at [place] admitted in late 2016 when she was in the ICU intubated needing a trach eventually. During that admission patient was treated for MRSA pneumonia but also she has a history of pseudomonas infections in the past. Pseudomonas in the past with pansensitive cultures but given her multiple hospitalization and multiple courses of antibiotics she stands at this for multidrug-resistant Pseudomonas. At the time of my evaluation patient is in the IMC appears very critically ill intubated. Patient is on vasopressin 0.04, we will fed 40 mics, epinephrine 10/9, amiodarone drip at 1 g. Patient has 0 urine output at the present time. She has small white secretions. She has no diarrhea. Abdomen appears benign. No response to verbal or other stimuli for me but RN reports when daughter was here earlier she opened eyes, moved limbs and squeezed RNs fingers. Currently sedation is off but patient in ARF with no urine output. Infectious disease consultation was requested for evaluation and management of septic shock, pneumonia. Notes reviewed. D/W RN Vocalizes and answers basic questions. Hypotensive: lasix gtt on hold. 500 ml bolus planned for today. Solitario in place. No fevers No rash Diarrhea Cdiff positive. WBC remains elevated. Repeat UA still reflexed concern for pyonephrosis/renal abscess vs ABX resistance. Antibiotics Current Medications Medications (Trade) Dose Ordered Sig/Mirta Route Start Time Stop Time Status Last Admin (Brethine Inj) 1 mg UNSCH PRN SQ 11/15/17 12:45 (D50w (Vial) Inj) 25 ml UNSCH PRN IV PUSH 11/15/17 14:00 (NovoLIN R SUPPLEMENTAL SCALE) 1 Q6HR SQ 11/15/17 18:00 11/20/17 17:43 (Duoneb Neb) 1 ampule Q2HR NEB PRN INH 11/15/17 14:00 11/17/17 23:39 (Tylenol) 650 mg Q6H PRN PO 11/15/17 14:00 11/22/17 07:57 (Pepcid Inj) 10 mg Q12HR IV PUSH 11/15/17 21:00 11/26/17 09:22 (Zofran Inj) 4 mg Q6H PRN IV PUSH 11/15/17 14:00 (Heparin Inj) 5,000 units Q8H SQ 11/15/17 15:00 11/26/17 05:47 Miscellaneous Information 1 Q361D XX 11/15/17 14:00 11/15/17 19:00 (Chlorhexidine 2% Cloth) Taper DAILY@04 TOP 11/16/17 04:00 11/12/18 03:59 11/23/17 04:00 (Chlorhexidine 2% Cloth) 3 pack UNSCH PRN TOP 11/15/17 14:00 (Zelda-Colace) 1 tab BID PO 11/15/17 21:00 11/26/17 09:21 (Milk Of Magnesia Liq) 30 ml Q12H PRN PO 11/15/17 14:00 (Senokot) 17.2 mg Q12H PRN PO 11/15/17 14:00 (Dulcolax Supp) 10 mg DAILY PRN RECTAL 11/15/17 14:00 (Lactulose Liq) 30 ml DAILY PRN PO 11/15/17 14:00 Linezolid 300 ml @ 300 mls/hr Q12H IV 11/16/17 07:00 11/26/17 05:46 (Peridex 0.12% Liq) 15 ml BID@08,20 MT 11/16/17 20:00 11/26/17 08:00 (Lopressor) 25 mg Q12HR PO 11/21/17 09:00 11/26/17 09:21 Furosemide 100 mg/ Sodium Chloride 100 ml @ 10 mls/hr CONTINUOUS IV 11/21/17 11:00 11/26/17 09:20 (Duoneb Neb) 1 ampule Q4HR NEB NEB 11/22/17 12:00 11/26/17 07:27 (Vancomycin 25 Mg/ml Liq) 125 mg QID PO 11/24/17 09:00 11/26/17 09:21 ([employer] 5-325 Mg) 1 tab Q4H PRN PO 11/24/17 18:15 (SoluCORTEF INJ) 25 mg DAILY IV PUSH 11/26/17 09:00 11/26/17 09:21 (Mycostatin Cream) 1 applic Q6HR TOPICAL 11/26/17 12:00 UNV Ceftolozane/ Tazobactam 1500 mg/Sodium Chloride 100 ml @ 100 mls/hr Q8H IV 11/26/17 10:00 UNV Lines RIJ TLC Past Medical History Past Medical History Chronic asthma home oxygen Atrial fibrillation Hyperlipidemia Hypertension excellent diabetes mellitus GERD Morbid obesity BMI 55 Past Surgical History Appendectomy Hernia surgery Tracheostomy placement Allergies: Coded Allergies: penicillin G (Unverified Allergy, Severe, 05/29/17) Objective . Vital Signs Date Time Temp Pulse Resp B/P (MAP) Pulse Ox O2 Delivery O2 Flow Rate FiO2 11/28/17 06:00 125 11/28/17 04:00 98.2 121 20 119/57 (77) 11/28/17 04:00 125 11/28/17 02:00 110 11/28/17 00:00 97.9 116 15 131/71 (91) 100 11/28/17 00:00 116 11/27/17 22:00 121 11/27/17 21:34 99 Nasal Cannula 2.00 11/27/17 20:00 97.6 116 16 111/72 (85) 100 11/27/17 20:00 116 11/27/17 18:00 115 11/27/17 17:00 117 11/27/17 17:00 117 19 99 11/27/17 16:08 116 20 129/74 (92) 97 11/27/17 16:08 116 11/27/17 16:01 116 19 147/101 (116) 99 11/27/17 16:01 116 11/27/17 16:00 122 11/27/17 16:00 99.1 122 20 97 11/27/17 14:30 111 11/27/17 14:00 116 11/27/17 13:03 115 11/27/17 13:03 115 19 162/93 (116) 98 11/27/17 13:00 116 11/27/17 13:00 116 22 98 11/27/17 12:00 110 11/27/17 12:00 98.2 110 17 162/93 (116) 99 11/27/17 10:19 95 11/27/17 10:00 124 20 99 11/27/17 10:00 124 11/27/17 09:12 118 11/27/17 09:12 118 20 127/64 (85) 96 11/27/17 09:10 121 20 78/63 (68) 97 11/27/17 09:10 121 11/27/17 09:01 121 20 90/73 (79) 98 11/27/17 09:01 121 11/27/17 09:00 121 11/27/17 09:00 121 20 96 11/27/17 08:51 129 11/27/17 08:51 129 25 86/65 (72) 92 11/27/17 08:49 127 23 78/58 (65) 92 11/27/17 08:49 127 . Laboratory Tests Test 11/27/17 05:00 11/28/17 04:09 White Blood Count 21.7 TH/MM3 17.8 TH/MM3 Red Blood Count 3.10 MIL/MM3 3.17 MIL/MM3 Hemoglobin 9.0 GM/DL 8.9 GM/DL Hematocrit 26.8 % 27.6 % Mean Corpuscular Volume 86.5 FL 87.0 FL Mean Corpuscular Hemoglobin 29.1 PG 28.1 PG Mean Corpuscular Hemoglobin Concent 33.7 % 32.3 % Red Cell Distribution Width 20.4 % 20.2 % Platelet Count 161 TH/MM3 166 TH/MM3 Mean Platelet Volume 7.8 FL 8.3 FL Neutrophils (%) (Auto) 86.2 % 87.7 % Lymphocytes (%) (Auto) 6.0 % 6.2 % Monocytes (%) (Auto) 5.3 % 5.3 % Eosinophils (%) (Auto) 2.1 % 0.6 % Basophils (%) (Auto) 0.4 % 0.2 % Neutrophils # (Auto) 18.7 TH/MM3 15.6 TH/MM3 Lymphocytes # (Auto) 1.3 TH/MM3 1.1 TH/MM3 Monocytes # (Auto) 1.1 TH/MM3 0.9 TH/MM3 Eosinophils # (Auto) 0.5 TH/MM3 0.1 TH/MM3 Basophils # (Auto) 0.1 TH/MM3 0.0 TH/MM3 CBC Comment DIFF FINAL DIFF FINAL Differential Comment Laboratory Tests Test 11/26/17 22:50 11/27/17 05:00 11/28/17 04:09 Potassium Level 2.9 MEQ/L 3.6 MEQ/L 3.3 MEQ/L Magnesium Level 1.4 MG/DL 1.5 MG/DL Blood Urea Nitrogen 49 MG/DL 49 MG/DL Creatinine 2.46 MG/DL 2.27 MG/DL Random Glucose 73 MG/DL 88 MG/DL Total Protein 5.3 GM/DL Calcium Level 7.4 MG/DL 7.6 MG/DL Phosphorus Level 4.3 MG/DL Sodium Level 143 MEQ/L 143 MEQ/L Chloride Level 102 MEQ/L 102 MEQ/L Carbon Dioxide Level 31.2 MEQ/L 32.5 MEQ/L Anion Gap 10 MEQ/L 9 MEQ/L Estimat Glomerular Filtration Rate 20 ML/MIN 21 ML/MIN Protein Corrected Calcium 8.4 MG/DL Microbiology Date/Time Source Procedure Growth Status 11/25/17 15:30 Urine Catheterized Urine Urine Culture - Final Yuly Albicans Complete Imaging Last Impressions Abdomen X-Ray 11/17/17 0000 Signed Impressions: Service Date/Time: Friday, November 17, 2017 19:04 - CONCLUSION: The proximal tip of the double-J stent is either in the expected region of the right renal pelvis or proximal ureter. Allen Mensah MD Chest X-Ray 11/16/17 0000 Signed Impressions: Service Date/Time: Thursday, November 16, 2017 12:43 - CONCLUSION: 1. Right IJ central line tip near the atriocaval junction. 2. No gross pneumothorax or significant interval change. Riccardo Stack MD Abdomen/Pelvis CT 11/16/17 0000 Signed Impressions: Service Date/Time: Thursday, November 16, 2017 08:54 - CONCLUSION: 1. Moderate hydronephrosis right kidney and hydroureter. There is dense material layering within the right renal pelvis and distal ureter of uncertain etiology but could be hemorrhage. Urinalysis and clinical correlation. 2. Hyperdense left renal lesion likely complex cyst. 3. Scattered diverticulosis of the colon. 4. Left basilar consolidation. 5. Left-sided ventral wall hernia. El Nuñez MD Chest CT 11/15/17 1255 Signed Impressions: Service Date/Time: November 14:24 - CONCLUSION: 1. New consolidative infiltrate in the posterior right upper lobe most characteristic of pneumonia. 2. Consolidation also noted in the left lower lobe which is increased from the prior CT. 3. New abnormal streaky density in the posterior upper abdomen located posterior to the liver. This is nonspecific but could represent infection or inflammatory change. 4. Cardiomegaly. Chintan Marshall MD Head CT 11/15/17 1134 Signed Impressions: Service Date/Time: November 14:13 - CONCLUSION: 1. No acute hemorrhage or mass effect. 2. Atrophy and chronic small vessel ischemic change 3. Air-fluid levels in the maxillary sinuses most characteristic of acute sinusitis. Chintan Marshall MD Physical Exam GENERAL: Morbidly obese patient, intubated. NAD. Opens eyes when stimulated. Not following SKIN: Ecchymoses noted. Left thigh large 15x10 cm approx area of erythema, abrasion of skin noted, looks better Skin folds in groin and breast with erythema and fungal overgrowth, improving HEAD: Atraumatic. Normocephalic. No temporal or scalp tenderness. EYES: Pupils equal round and reactive. No icterus, pale conjunctiva. Large neck. ENT: No nasal drainage Prior trach site ok. NECK: Trachea midline. Supple, nontender, no meningeal signs. CARDIOVASCULAR: HS audible and distant. RESPIRATORY: Clear to auscultation anteriorly. Distant breath sounds. GASTROINTESTINAL: Abdomen obese, diffuse tenderness, midline ventral hernia. Pannus noted. MUSCULOSKELETAL: Pedal edema noted. No cyanosis NEUROLOGICAL: Alert, follows commands, moves all 4 extremities. IV line sites with no e.o infection. : Solitario in place color looks better Assessment & Plan Remarks IMPRESSION PSAE sepsis, with Septic shock with multiorgan dysfunction syndrome due to complicated UTI - has R pyonephrosis, S/P cysto and stent placement - still on pressors but decreasing dose, WBC lower, temps better, creatinine decreasing Pneumonia, C/S MRSA 1. Aspiration pneumonia highly likely given multiple episodes of vomiting prior to admission in the long-term 2. Possible post influenza necrotizing pneumonia. 3. Health care pneumonia. Diarrhea: Cdiff positive. Candiduria Leukemoid reaction: Cdiff, other infections, steroids. Staph coag neg bacteremia: likely contaminant. Acute respiratory failure on vent Acute renal failure with anuria, due to sepsis and shock. Morbid obesity BMI 58.7 KG per meter squared Nausea vomiting prior to admission Recommendations: Continue Zerbaxa IV Continue Zyvox IV (MRSA pneumonia in a ARF patient with oliguria, additional exotoxin neutralization effect for Staph, MRSA and Strep pneumonia) Continue oral Vanco. Continue oral diflucan d.w . Follow cultures Follow clinically. D/W Amy Crenshaw MD Nov 28, 2017 08:48
[2017-11-28] MEDS: FLUCONAZOLE 100 MG TAB PO SCH (08:53)
[2017-11-28] MEDS: DOCUSATE SODIUM 50 MG/SENNA 8.6 MG TAB PO SCH ×2 (08:53→19:40)
[2017-11-28] MEDS: FAMOTIDINE 20 MG/2 ML VIAL IV PUSH SCH ×2 (08:53→19:40)
[2017-11-28] MEDS: CHLORHEXIDINE 0.12% (ORAL KIT) 15 ML CUP MT SCH ×2 (08:54→19:40)
[2017-11-28] MEDS: HYDROCORTISONE SOD SUCCINATE 100 MG VIAL IV PUSH SCH (08:54)
[2017-11-28] MEDS: VANCOMYCIN 25 MG/ML SUSP 100 ML BOTTLE PO SCH ×4 (08:54→19:40)
--- NOTE | 2017-11-28 09:46 | HHI.NPPN ---
Subjective General Problems: Edema Renal Failure: Acute Interval History Renal function is improving. Tachycardia persists. Food intake is poor. (Suad Lucas) Review of Systems Respiratory Lungs: SOB (Suad Lucas) Cardiovascular Cardiac: Edema (Suad Lucas) Objective Data Data Vital Signs Date Time Temp Pulse Resp B/P (MAP) Pulse Ox O2 Delivery O2 Flow Rate FiO2 11/28/17 08:53 100 Nasal Cannula 2.00 11/28/17 06:00 125 11/28/17 04:00 98.2 121 20 119/57 (77) 11/28/17 04:00 125 11/28/17 02:00 110 11/28/17 00:00 97.9 116 15 131/71 (91) 100 11/28/17 00:00 116 11/27/17 22:00 121 11/27/17 21:34 99 Nasal Cannula 2.00 11/27/17 20:00 97.6 116 16 111/72 (85) 100 11/27/17 20:00 116 11/27/17 18:00 115 11/27/17 17:00 117 11/27/17 17:00 117 19 99 11/27/17 16:08 116 20 129/74 (92) 97 11/27/17 16:08 116 11/27/17 16:01 116 19 147/101 (116) 99 11/27/17 16:01 116 11/27/17 16:00 122 11/27/17 16:00 99.1 122 20 97 11/27/17 14:30 111 11/27/17 14:00 116 11/27/17 13:03 115 11/27/17 13:03 115 19 162/93 (116) 98 11/27/17 13:00 116 11/27/17 13:00 116 22 98 11/27/17 12:00 110 11/27/17 12:00 98.2 110 17 162/93 (116) 99 11/27/17 10:19 95 11/27/17 10:00 124 20 99 11/27/17 10:00 124 (Suad Lucas) -: 11/28/17 0409 11/28/17 0409 Imaging Last [address] 11/26/17 0000 Signed Impressions: Service Date/Time: Sunday, November 26, 2017 17:16 - CONCLUSION: 1. Improvement in bilateral lung consolidation since November 15. Interval development of small bilateral effusions, right greater than left. Sachin Gonzalez MD Abdomen/Pelvis CT 11/26/17 0000 Signed Impressions: Service Date/Time: Sunday, November 26, 2017 17:16 - CONCLUSION: Very limited exam because of arms and body habitus. I don't see abscess or free air. Double-J stent on the right. Joseph Baeza MD FACR Tubes & Lines: Solitario Tubes & Lines Comment TLC right IJ (Suad Lucas B[employer]) Physical Exam General Appearance: Well Nourished, No Acute Distress, Comfortable, Sleeping, Obese (Suad Lucas [employer]) Eyes Eye Exam: Pupils Equal (LanceSuad B[employer]) Throat Throat Exam: Oral Mucosa [place] & Moist (LanceSuad [employer]) Neck Neck Exam: Neck Supple (LanceSuad [employer]) Pulmonary Resp Exam: Breath Sounds Equal, No Distress, Crackles Resp Remarks In bases, expiratory wheezing (Lewis Lucason B. [employer]) Cardiology CV Exam: Regular, Good Perfusion, Tachycardia (LanceSuad [employer]) Gastrointestinal/Abdomen GI Exam: Soft, Non-Tender, Bowel Sounds Present GI Remarks morbidly obese (LanceSuad [employer]) Musculoskeletal MS Exam: Joints Intact, Normal Tone, Unable to Ambulate (Lewis Lucason [employer]) Integumentary Skin Exam: Warm, Dry (LanceSuad [employer]) Extremeties Extremities Exam: Moderate Edema, Pitting Edema, Dependent Edema Extremeties Remarks extensive edema, anasarca , 4+ pitting (Lewis Lucason [employer]) Neurologic Neuro Exam: Alert, Awake, Oriented, Speech Clear (Suad Lucas [employer]) Psychiatric Psych Exam: Appropriate Responses (Suad Lucas [employer]) Assessment/Plan Discussed Condition With: Patient Assessment Summary: FREDDY/Acute Renal Failure, Fluid/Volume Overload, Hypotension Electrolyte Assessment: Hypokalemia Problem List: (1) FREDDY (acute kidney injury) ICD Codes: N17.9 - Acute kidney failure, unspecified Plan: In January 2017 her renal function was normal. Had FREDDY in September, creatinine at discharge was 1.8 Obstructive uropathy, s/p R ureteral stent placement on the FREDDY also due to urosepsis with renal hyperperfusion Renal function is improving. Has extensive fluid overload. Start Lasix 40 BID IV K replacement orally Solitario remains, excellent urine output. Repeat labs daily Avoid nephrotoxic agents. Has UTI (dez) on Diflucan (2) Tachycardia ICD Codes: R00.0 - Tachycardia, unspecified Plan: Consider obtaining EKG and/or 2D echo. Due to PE? May need VQ scan (3) Pneumonia ICD Codes: J18.9 - Pneumonia, unspecified organism Status: Acute Plan: ID following, on Zerbaxa and Zyvox. (4) Septic shock ICD Codes: A41.9 - Sepsis, unspecified organism; R65.21 - Severe sepsis with septic shock Plan: Pseudomonas sepsis Also po Diflucan for candiduria Continue supportive care (5) Respiratory failure ICD Codes: J96.90 - Respiratory failure, unspecified, unspecified whether with hypoxia or hypercapnia Plan: Successfully extubated Monitor respiratory status (Suad Lucas) Plan patient was seen and examined. Agree with above assessment and plan. (Mohinder Lopez MD) Suad Lucas Nov 28, 2017 09:46 Mohinder Lopez MD Nov 28, 2017 10:11
[2017-11-28] MEDS ORDERED: POTASSIUM CHLORIDE 20 MEQ CONTROLLED RELEASE TAB PO ONE (10:00)
[2017-11-28] MEDS: FUROSEMIDE 40 MG/4 ML VIAL IV PUSH SCH ×2 (11:49→17:59)
--- NOTE | 2017-11-28 14:58 | HHI.PR ---
Subjective Patient symptoms today 67y. o. F with super morbid obesity who has multiple comorbidities admitted for MRSA pneumonia and respiratory failure. Recovering from septic shock. Due to right hydronephrosis JJ stent was placed by Urology. Pt was seen at the bed side this afternoon. No acute distress. Her condition is more stable and improving. Patient is on 2L oxygen, on Lasix drip 10mg/hr. Garcia is in place, Urine is clear yellow. no fever. getting treatment for C diff Objective Vital Signs Vital Signs Date Time Temp Pulse Resp B/P (MAP) Pulse Ox O2 Delivery O2 Flow Rate FiO2 11/28/17 11:00 113 14 92/52 (65) 98 11/28/17 11:00 113 11/28/17 10:00 125 15 105/65 (78) 99 11/28/17 10:00 125 11/28/17 09:00 127 17 120/71 (87) 99 11/28/17 09:00 126 11/28/17 08:53 100 Nasal Cannula 2.00 11/28/17 08:00 96.8 124 16 135/92 (106) 100 11/28/17 08:00 131 11/28/17 07:00 119 11/28/17 07:00 119 15 126/57 (80) 11/28/17 06:00 125 11/28/17 04:00 98.2 121 20 119/57 (77) 11/28/17 04:00 125 11/28/17 02:00 110 11/28/17 00:00 97.9 116 15 131/71 (91) 100 11/28/17 00:00 116 11/27/17 22:00 121 11/27/17 21:34 99 Nasal Cannula 2.00 11/27/17 20:00 97.6 116 16 111/72 (85) 100 11/27/17 20:00 116 11/27/17 18:00 115 11/27/17 17:00 117 11/27/17 17:00 117 19 99 11/27/17 16:08 116 20 129/74 (92) 97 11/27/17 16:08 116 11/27/17 16:01 116 19 147/101 (116) 99 11/27/17 16:01 116 11/27/17 16:00 122 11/27/17 16:00 99.1 122 20 97 Intake & Output 2/14/18 2/14/18 07:00 19:00 Intake Total 240 ml Output Total 950 ml Balance -710 ml Intake Oral 240 ml Output Urine Total 850 ml Stool Total 100 ml Result Diagram: 11/28/1740811/28/17408 Objective Remarks : garcia in place, draining urine well, clear yellow color Medications and IVs Current Medications Medications (Trade) Dose Ordered Sig/Mirta Route Start Time Stop Time Status Last Admin (Brethine Inj) 1 mg UNSCH PRN SQ 11/15/17 12:45 (D50w (Vial) Inj) 25 ml UNSCH PRN IV PUSH 11/15/17 14:00 (NovoLIN R SUPPLEMENTAL SCALE) 1 Q6HR SQ 11/15/17 18:00 11/20/17 17:43 (Duoneb Neb) 1 ampule Q2HR NEB PRN INH 11/15/17 14:00 11/17/17 23:39 (Tylenol) 650 mg Q6H PRN PO 11/15/17 14:00 11/27/17 16:05 (Pepcid Inj) 10 mg Q12HR IV PUSH 11/15/17 21:00 11/28/17 08:53 (Zofran Inj) 4 mg Q6H PRN IV PUSH 11/15/17 14:00 11/27/17 17:52 (Heparin Inj) 5,000 units Q8H SQ 11/15/17 15:00 11/28/17 05:10 Miscellaneous Information 1 Q361D XX 11/15/17 14:00 11/15/17 19:00 (Chlorhexidine 2% Cloth) Taper DAILY@04 TOP 11/16/17 04:00 11/12/18 03:59 11/28/17 03:18 (Chlorhexidine 2% Cloth) 3 pack UNSCH PRN TOP 11/15/17 14:00 (Zelda-Colace) 1 tab BID PO 11/15/17 21:00 11/28/17 08:53 (Milk Of Magnesia Liq) 30 ml Q12H PRN PO 11/15/17 14:00 (Senokot) 17.2 mg Q12H PRN PO 11/15/17 14:00 (Dulcolax Supp) 10 mg DAILY PRN RECTAL 11/15/17 14:00 (Lactulose Liq) 30 ml DAILY PRN PO 11/15/17 14:00 Linezolid 300 ml @ 300 mls/hr Q12H IV 11/16/17 07:00 11/28/17 05:10 (Peridex 0.12% Liq) 15 ml BID@08,20 MT 11/16/17 20:00 11/28/17 08:54 (Vancomycin 25 Mg/ml Liq) 125 mg QID PO 11/24/17 09:00 11/28/17 13:50 ([place] 5-325 Mg) 1 tab Q4H PRN PO 11/24/17 18:15 11/27/17 17:53 (SoluCORTEF INJ) 25 mg DAILY IV PUSH 11/26/17 09:00 11/29/17 08:59 11/28/17 08:54 (Mycostatin Cream) 1 applic Q6HR TOPICAL 11/26/17 12:00 11/28/17 13:50 Ceftolozane/ Tazobactam 1500 mg/Sodium Chloride 100 ml @ 100 mls/hr Q8H IV 11/26/17 11:00 11/28/17 11:49 (Diflucan) 100 mg DAILY PO 11/26/17 20:00 11/28/17 08:53 (Lasix Inj) 40 mg BID@18 IV PUSH 11/28/17 10:00 11/28/17 11:49 Assessment and Plan Problem List: (1) Hydronephrosis ICD Code: N13.30 - Unspecified hydronephrosis (2) Pneumonia ICD Code: J18.9 - Pneumonia, unspecified organism Status: Acute (3) CHF (congestive heart failure) ICD Code: I50.9 - Heart failure, unspecified Status: Acute Assessment and Plan -Continue care as per primary team -Follow other consulted teams recommendations -No acute intervention needed now. -Her stent will stay until she is stable and ready for d/c and will be removed as an outpt procedure Urology remains available on as needed basis Jeramie Wesley Nov 28, 2017 14:58
--- NOTE | 2017-11-28 22:55 | HHI.CCPN ---
Subjective Remarks/Hospital Course Hospital Course: 67yF with super morbid obesity who has had multiple prior admissions for MRSA pneumonia and respiratory failure presents by EMS for recurrent respiratory failure. She resides in a SNF. She was found unresponsive this morning. She was intubated in the field. In the emergency department she was hypotensive despite ivf resuscitation and required norepinephrine for vasopressor support. she has a wbc 52k, lactate of 6.9, Cr 2.87 (baseline 0.5, prior admission discharge was 1.8). u/a concerning for probable UTI as well. Subjective: 2: remained unstable throughout the night overnight. on 3 vasopressors. this morning, no better, wbc higher. decision by Dr. Cartagena and myself to emergently CT abd/pelvis to rule out source control, despite ongoing hemodynamic instability. CT abd/pelvis demonstrated right hydronephrosis with likely obstructive pyelonephritis. discussed with urology and interventional radiology : likely to decompensate during procedure. unable to physically prone patient. difficult technically with high risk to do supine lateral CT guided perc nephrostomy tube. urology to take to the OR for cysto with stenting. Prior to leaving for OR, patient's central line was pulled accidentally. patient had no other iv access. I/O needles unavailable. emergently replaced central line in right IJ (see separate procedure note for details). due to ongoing shock, patient's blood pressure in 40s systolic during this time. restarted vasopressors after central access regained. went to OR. cultures growing pseudomonas. 2: minimal improvements. taken to OR yesterday for cysto. minimal uop overnight. off epinephrine but remains on 2 vasopressors, in shock. wbc downtrending but > 50k. 11/18: vasopressor requirements are improving slightly. remains on 2 vasopressors and in shock. blood and urine growing pseudomonas, sputum growing MRSA (history of MRSA pneumonia). wbc downtrending, but remains very high. uop marginal. 11/19 Patient remains sedated and intubated. On Levophed 2 mics, Vasopressin 0.04 mics. WBC is trending down. 11/20 Patient remains intubated and on Precedex for sedation. Remains on Vasopressin and Levophed 8 mics. Afebrile. 11/21 No events overnight. Off pressors and off Precedex. Awake, alert tolerated CPAP for several hrs yesterday 11/22 Patient is awake and alert tolerated CPAP yesterday. Off sedation. Placed on Lasix drip 20mg/hr per renal. Afebrile. 11/23 Patient s/p extubation yesterday on 2L oxygen with good sats. Awake and alert. 11/24: No acute events overnight. Lortab 5/325 mg PRN for pain added to medication regimen. 11/25: Afebrile. Patient resting comfortably, no acute events overnight. Patient awake and responsive. Patient noted to have a poor appetite with pureed diet supplementation with boost supplementation with every meal added. 11/26 No events overnight. On Lasix 10mg/hr. Awake and alert. Afebrile. 11/27 Patient is on 2L oxygen, on Lasix drip 10mg/hr,BP borderline low this morning 11/28: remains on 2L o2 by NC. on BID lasix dosing. blood pressure stable. tachycardia remains, but does not appear to be secondary to volume depletion. Objective Vital Signs Date Time Temp Pulse Resp B/P (MAP) Pulse Ox O2 Delivery O2 Flow Rate FiO2 11/28/17 21:07 100 Nasal Cannula 2.00 11/28/17 18:30 120 11/28/17 18:30 16 84/58 (67) 11/28/17 16:00 97.6 Intake and Output 11/28/17 11/28/17 11/29/17 08:00 16:00 00:00 Intake Total 240 ml 100 ml 460 ml Output Total 950 ml 1050 ml Balance -710 ml 100 ml -590 ml Result Diagram: 11/28/17 0409 11/28/17 0409 Imaging Last Impressions Chest CT 11/26/17 0000 Signed Impressions: Service Date/Time: Sunday, November 26, 2017 17:16 - CONCLUSION: 1. Improvement in bilateral lung consolidation since November 15. Interval development of small bilateral effusions, right greater than left. Sachin Gonzalez MD Abdomen/Pelvis CT 11/26/17 0000 Signed Impressions: Service Date/Time: Sunday, November 26, 2017 17:16 - CONCLUSION: Very limited exam because of arms and body habitus. I don't see abscess or free air. Double-J stent on the right. Joseph Baeza MD FACR Chest X-Ray 11/24/17 0000 Signed Impressions: Service Date/Time: Friday, November 24, 2017 03:36 - CONCLUSION: 1. Improved right lung consolidation. Persistent consolidation left base. Interval extubation. Sachin Gonzalez MD Abdomen X-Ray 11/17/17 0000 Signed Impressions: Service Date/Time: Friday, November 17, 2017 19:04 - CONCLUSION: The proximal tip of the double-J stent is either in the expected region of the right renal pelvis or proximal ureter. Allen Mensah MD Head CT 11/15/17 1134 Signed Impressions: Service Date/Time: November 14:13 - CONCLUSION: 1. No acute hemorrhage or mass effect. 2. Atrophy and chronic small vessel ischemic change 3. Air-fluid levels in the maxillary sinuses most characteristic of acute sinusitis. Chintan Marshall MD Objective Remarks GENERAL: This is a super morbidly obese female 67 yo lying in bed in [place] SKIN: Warm and dry. HEAD: Normocephalic. EYES: No scleral icterus. No injection or drainage. NECK: trachea midline. JVD unable to be assessed due to body habitus. CARDIOVASCULAR: Tachycardic rate, irregularly irregular rhythm. afib by tele. RESPIRATORY: Breath sounds equal bilaterally. No accessory muscle use. 2L nc. GASTROINTESTINAL: Abdomen soft, protuberant, non-tender, nondistended. MUSCULOSKELETAL: No cyanosis, + edema. Neuro: Awake and alert A/P Assessment and Plan Assessment: 67yF with super morbid obesity who was originally admitted with obstructive uropathy, GNR septic shock, acute hypoxic respiratory failure, multiorgan failure. clinically improving. will attempt to control HR and continue diuresis. Neuro: Metabolic Encephalopathy - improved Chronic Pain - Awake and alert - Lortab 5/325 mg PRN Resp: Acute hypoxic and hypercarbic respiratory failure- Extubated 11/22 Healthcare Associated Pneumonia Continue with oxygen keep sat >92% Bronchodilators, IS, check ABG NIPPV PRN for resp distress - sputum culture: MRSA CT chest 11/26: Improvement in bilateral lung consolidation since November 15. small bilateral effusions, right greater than left. CV: s/p Septic Shock - Atrial fibrillation with rapid ventricular response - Monitor HR and BP keep MAP>65mmHg. Taper steroids- Hydrocortisone 25mg IV daily x 3 days then stop. - lopressor 5mg iv x 1. if this improves HR, will schedule AV bri blockade. Renal: Acute Kidney Injury - resolving. Acute pyelonephritis Metabolic alkalosis secondary to intravascular volume contraction Monitor renal function, I/O's, avoid nephrotoxins cr continues to improve still volume overloaded. metabolic alkalosis developing. diamox 500mg iv x 1 continue lasix. - s/p Emergent cysto with stent 2/2, Urology is following Renal is following- Dr. Lopez FEN/GI: Super Morbid Obesity Lactic Acidosis- cleared Anion-gap Metabolic acidosis- resolved. Acute intravascular volume overload Severe acute protein calorie malnutrition -Pured diet, poor oral intake -Pepcid for GI prophylaxis -CT abdomen/pelvis: No abscess or free air Heme/ID: History of prior MRSA pneumonia Acute pyelonephritis Pseudomonas bacteremia Positive C-diff - ID on board. - Abx per Mitzi. On Zyvox, Zerbaxa, PO Vanco, Diflucan. Monitor for signs of infections ( Fever, WBC) -11/25 urine cx : C. Albicans -11/20 BC :NGTD -11/17 BC: Coag negative staph 10/18 bottles..likely contaminant - 11/17 Urine cx :Pseudomonas - 2/1 blood cultures: pseudomonas - 2/1 urine culture: pseudomonas - 2/1 sputum culture: MRSA Endocrine: Hyperglycemia of Critical Illness- resolved. - d/c SSI. Musculoskeletal: Polyneuropathy of critical illness - Generalized anasarca -PT/OT evaluate and treat Prophylaxis: SCDs, SQH Pepcid Lines: -peripheral IV's PT/OT eval and treat Christ Mullins MD Nov 28, 2017 22:55
[2017-11-28] MEDS ORDERED: ALBUMIN 25% INJ 100 ML IV ONE (23:00)
[2017-11-28] MEDS ORDERED: METOPROLOL TARTRATE 5 MG/5 ML VIAL IV PUSH ONE (23:00)
[2017-11-29] VITALS (22 sets, daily range): BP systolic 98–140; BP diastolic 53–78; PULSE 109–135; RESP 16–19; TEMP 97.3–98.9; O2SAT 91–99
[2017-11-29] MEDS: CEFTOLOZANE-TAZOBACTAM INJ 1,500 MG in SODIUM CHLORIDE 0.9% INJ 100 ML IV SCH ×3 (03:30→18:44)
[2017-11-29] MEDS: CHLORHEXIDINE GLUCONATE 2 % 1 PACK (2 CLOTHS) TOP SCH (03:30)
[2017-11-29] MEDS: ACETAMINOPHEN/HYDROcodone 325 MG/5 MG TAB PO PRN ×2 (03:42→10:51)
[2017-11-29 04:37] LABS: HEMATOCRIT 25.4 % (35.0-46.0); HEMOGLOBIN 8.1 GM/DL (11.6-15.3); MEAN CELL VOLUME 88.8 FL (80.0-100.0); MEAN CORPUSCULAR HEMOGLOBIN 28.2 PG (27.0-34.0); MEAN CORPUSCULAR HGB CONC 31.8 % (32.0-36.0); MEAN PLATELET VOLUME 8.2 FL (7.0-11.0); PLATELET COUNT 121 TH/MM3 (150-450); RED BLOOD COUNT 2.86 MIL/MM3 (4.00-5.30); RED CELL DISTRIBUTION WIDTH 20.9 % (11.6-17.2)
[2017-11-29 04:49] LABS: BICARBONATE 34.3 MEQ/L (21.0-32.0); CALCIUM 7.7 MG/DL (8.5-10.1); CREATININE 2.15 MG/DL (0.50-1.00)
[2017-11-29] MEDS: NYSTATIN 100,000 UNIT/GM CREAM 15 GM TOPICAL SCH ×4 (05:06→23:31)
[2017-11-29] MEDS: HEPARIN SODIUM - SQ 10,000 UNITS/ML VIAL SQ SCH ×3 (05:06→23:31)
[2017-11-29] MEDS: LINEZOLID 600 MG PREMIX 300 ML IV SCH ×2 (05:06→17:34)
--- NOTE | 2017-11-29 07:27 | HHI.CCPN ---
Subjective Remarks/Hospital Course Hospital Course: 67yF with super morbid obesity who has had multiple prior admissions for MRSA pneumonia and respiratory failure presents by EMS for recurrent respiratory failure. She resides in a SNF. She was found unresponsive this morning. She was intubated in the field. In the emergency department she was hypotensive despite ivf resuscitation and required norepinephrine for vasopressor support. she has a wbc 52k, lactate of 6.9, Cr 2.87 (baseline 0.5, prior admission discharge was 1.8). u/a concerning for probable UTI as well. Subjective: 2: remained unstable throughout the night overnight. on 3 vasopressors. this morning, no better, wbc higher. decision by Dr. Cartagena and myself to emergently CT abd/pelvis to rule out source control, despite ongoing hemodynamic instability. CT abd/pelvis demonstrated right hydronephrosis with likely obstructive pyelonephritis. discussed with urology and interventional radiology : likely to decompensate during procedure. unable to physically prone patient. difficult technically with high risk to do supine lateral CT guided perc nephrostomy tube. urology to take to the OR for cysto with stenting. Prior to leaving for OR, patient's central line was pulled accidentally. patient had no other iv access. I/O needles unavailable. emergently replaced central line in right IJ (see separate procedure note for details). due to ongoing shock, patient's blood pressure in 40s systolic during this time. restarted vasopressors after central access regained. went to OR. cultures growing pseudomonas. 2: minimal improvements. taken to OR yesterday for cysto. minimal uop overnight. off epinephrine but remains on 2 vasopressors, in shock. wbc downtrending but > 50k. 11/18: vasopressor requirements are improving slightly. remains on 2 vasopressors and in shock. blood and urine growing pseudomonas, sputum growing MRSA (history of MRSA pneumonia). wbc downtrending, but remains very high. uop marginal. 11/19 Patient remains sedated and intubated. On Levophed 2 mics, Vasopressin 0.04 mics. WBC is trending down. 11/20 Patient remains intubated and on Precedex for sedation. Remains on Vasopressin and Levophed 8 mics. Afebrile. 11/21 No events overnight. Off pressors and off Precedex. Awake, alert tolerated CPAP for several hrs yesterday 11/22 Patient is awake and alert tolerated CPAP yesterday. Off sedation. Placed on Lasix drip 20mg/hr per renal. Afebrile. 11/23 Patient s/p extubation yesterday on 2L oxygen with good sats. Awake and alert. 11/24: No acute events overnight. Lortab 5/325 mg PRN for pain added to medication regimen. 11/25: Afebrile. Patient resting comfortably, no acute events overnight. Patient awake and responsive. Patient noted to have a poor appetite with pureed diet supplementation with boost supplementation with every meal added. 11/26 No events overnight. On Lasix 10mg/hr. Awake and alert. Afebrile. 11/27 Patient is on 2L oxygen, on Lasix drip 10mg/hr,BP borderline low this morning 11/28: remains on 2L o2 by NC. on BID lasix dosing. blood pressure stable. tachycardia remains, but does not appear to be secondary to volume depletion. 11/29: still doing well. on nc o2. diuresing well. tachycardia improved overnight with lopressor: will schedule diltiazem for AVN blockade. more alkalotic as well. tolerating diet. needs aggressive PT. Objective Vital Signs Date Time Temp Pulse Resp B/P (MAP) Pulse Ox O2 Delivery O2 Flow Rate FiO2 11/29/17 06:00 128 11/29/17 04:00 98.9 19 113/78 (90) 99 11/28/17 21:07 Nasal Cannula 2.00 Intake and Output 11/29/17 11/29/17 11/30/17 08:00 16:00 00:00 Intake Total 500 ml Output Total 1250 ml Balance -750 ml Result Diagram: 11/29/17 0336 11/29/17 0336 Imaging Last Impressions Chest CT 11/26/17 0000 Signed Impressions: Service Date/Time: Sunday, November 26, 2017 17:16 - CONCLUSION: 1. Improvement in bilateral lung consolidation since November 15. Interval development of small bilateral effusions, right greater than left. Sachin Gonzalez MD Abdomen/Pelvis CT 11/26/17 0000 Signed Impressions: Service Date/Time: Sunday, November 26, 2017 17:16 - CONCLUSION: Very limited exam because of arms and body habitus. I don't see abscess or free air. Double-J stent on the right. Joseph Baeza MD FACR Chest X-Ray 11/24/17 0000 Signed Impressions: Service Date/Time: Friday, November 24, 2017 03:36 - CONCLUSION: 1. Improved right lung consolidation. Persistent consolidation left base. Interval extubation. Sachin Gonzalez MD Abdomen X-Ray 11/17/17 0000 Signed Impressions: Service Date/Time: Friday, November 17, 2017 19:04 - CONCLUSION: The proximal tip of the double-J stent is either in the expected region of the right renal pelvis or proximal ureter. Allen Mensah MD Head CT 11/15/17 1134 Signed Impressions: Service Date/Time: November 14:13 - CONCLUSION: 1. No acute hemorrhage or mass effect. 2. Atrophy and chronic small vessel ischemic change 3. Air-fluid levels in the maxillary sinuses most characteristic of acute sinusitis. Chintan Marshall MD Objective Remarks GENERAL: This is a super morbidly obese female 67 yo lying in bed in [facility] SKIN: Warm and dry. HEAD: Normocephalic. EYES: No scleral icterus. No injection or drainage. NECK: trachea midline. JVD unable to be assessed due to body habitus. CARDIOVASCULAR: Tachycardic rate, irregularly irregular rhythm. afib by tele. RESPIRATORY: Breath sounds equal bilaterally. No accessory muscle use. 2L nc. GASTROINTESTINAL: Abdomen soft, protuberant, non-tender, nondistended. MUSCULOSKELETAL: No cyanosis, + edema. Neuro: Awake and alert A/P Assessment and Plan Assessment: 67yF with super morbid obesity who was originally admitted with obstructive uropathy, GNR septic shock, acute hypoxic respiratory failure, multiorgan failure. clinically improving. will attempt to control HR and continue diuresis. Neuro: Metabolic Encephalopathy - improved Chronic Pain - Awake and alert - Lortab 5/325 mg PRN Resp: Acute hypoxic and hypercarbic respiratory failure- Extubated 11/22 Healthcare Associated Pneumonia Continue with oxygen keep sat >92% Bronchodilators, IS, check ABG NIPPV PRN for resp distress - sputum culture: MRSA CT chest 11/26: Improvement in bilateral lung consolidation since November 15. small bilateral effusions, right greater than left. needs to be OOB daily to chair. PT consult. per PT, needs inpt rehab. CV: s/p Septic Shock - Atrial fibrillation with rapid ventricular response - Monitor HR and BP keep MAP>65mmHg. Taper steroids start diltiazem 60mg po q6h Renal: Acute Kidney Injury - resolving. Acute pyelonephritis Metabolic alkalosis secondary to intravascular volume contraction Monitor renal function, I/O's, avoid nephrotoxins cr continues to improve still volume overloaded. metabolic alkalosis developing. diamox 500mg iv q8h x 3 doses. continue lasix. - s/p Emergent cysto with stent 2/, Urology is following Renal is following- Dr. Lopez FEN/GI: Super Morbid Obesity Lactic Acidosis- cleared Anion-gap Metabolic acidosis- resolved. Acute intravascular volume overload Severe acute protein calorie malnutrition -Pured diet, poor oral intake -Pepcid for GI prophylaxis -CT abdomen/pelvis: No abscess or free air d/c rectal tube. Heme/ID: History of prior MRSA pneumonia Acute pyelonephritis Pseudomonas bacteremia Positive C-diff - ID on board. - Abx per Mitzi. On Zyvox, Zerbaxa, PO Vanco, Diflucan. Monitor for signs of infections ( Fever, WBC) -11/25 urine cx : C. Albicans -11/20 BC :NGTD -11/17 BC: Coag negative staph / bottles..likely contaminant - 11/17 Urine cx :Pseudomonas - 2/1 blood cultures: pseudomonas - 2/1 urine culture: pseudomonas - 2/1 sputum culture: MRSA Endocrine: Hyperglycemia of Critical Illness- resolved. - d/c SSI. Musculoskeletal: Polyneuropathy of critical illness - Generalized anasarca -PT/OT evaluate and treat Prophylaxis: SCDs, SQH Pepcid Lines: -peripheral IV's PT/OT eval and treat Dispo: nearing readiness for inpatient rehab. Christ Mullins MD Nov 29, 2017 07:27
[2017-11-29] MEDS ORDERED: POTASSIUM CHLORIDE 25 MEQ EFFERVESCENT TAB PO ONE (07:30)
[2017-11-29] MEDS: DILTIAZEM HCL 60 MG TAB PO SCH ×4 (07:34→23:31)
[2017-11-29] MEDS: FUROSEMIDE 40 MG/4 ML VIAL IV PUSH SCH ×2 (07:34→17:35)
[2017-11-29] MEDS: FLUCONAZOLE 100 MG TAB PO SCH (07:35)
[2017-11-29] MEDS: VANCOMYCIN 25 MG/ML SUSP 100 ML BOTTLE PO SCH ×4 (07:35→21:28)
[2017-11-29] MEDS: DOCUSATE SODIUM 50 MG/SENNA 8.6 MG TAB PO SCH ×2 (07:35→21:27)
[2017-11-29] MEDS: CHLORHEXIDINE 0.12% (ORAL KIT) 15 ML CUP MT SCH ×2 (07:35→20:00)
[2017-11-29] MEDS: FAMOTIDINE 20 MG/2 ML VIAL IV PUSH SCH ×2 (07:35→21:27)
--- NOTE | 2017-11-29 08:07 | HHI.NPPN ---
Subjective General Problems: Edema Renal Failure: Acute Interval History Good diuresis. Renal function has improved. Mild hypernatremia is noted. Review of Systems Respiratory Lungs: SOB Cardiovascular Cardiac: Edema Objective Data Data Vital Signs Date Time Temp Pulse Resp B/P (MAP) Pulse Ox O2 Delivery O2 Flow Rate FiO2 11/29/17 06:00 128 11/29/17 04:00 98.9 127 19 113/78 (90) 99 11/29/17 04:00 127 11/29/17 02:00 123 11/29/17 00:00 97.3 109 17 114/63 (80) 99 11/29/17 00:00 109 11/28/17 22:00 135 11/28/17 21:07 100 Nasal Cannula 2.00 11/28/17 20:00 97.7 124 17 148/64 (92) 100 11/28/17 20:00 124 11/28/17 18:30 120 11/28/17 18:30 120 16 84/58 (67) 100 11/28/17 18:00 124 11/28/17 18:00 124 15 105/60 (75) 100 11/28/17 17:30 131 11/28/17 17:30 131 17 103/68 (80) 99 11/28/17 17:00 122 11/28/17 17:00 122 14 112/56 (74) 98 11/28/17 16:30 121 11/28/17 16:30 121 15 115/76 (89) 100 11/28/17 16:00 97.6 123 16 120/67 (84) 100 11/28/17 16:00 123 11/28/17 15:30 122 17 120/56 (77) 100 11/28/17 15:30 122 11/28/17 15:00 122 17 117/72 (87) 100 11/28/17 15:00 122 11/28/17 14:00 127 11/28/17 14:00 127 15 126/57 (80) 99 11/28/17 13:00 125 15 103/55 (71) 99 11/28/17 13:00 125 11/28/17 12:00 97.0 118 14 103/68 (80) 99 11/28/17 12:00 118 11/28/17 11:00 113 14 92/52 (65) 98 11/28/17 11:00 113 11/28/17 10:00 125 15 105/65 (78) 99 11/28/17 10:00 125 11/28/17 09:00 127 17 120/71 (87) 99 11/28/17 09:00 126 11/28/17 08:53 100 Nasal Cannula 2.00 -: 11/29/17 0336 11/29/17 0336 Tubes & Lines: Solitario Tubes & Lines Comment TLC right IJ Physical Exam General Appearance: Well Nourished, No Acute Distress, Comfortable, Sleeping, Obese Eyes Eye Exam: Pupils Equal Throat Throat Exam: Oral Mucosa Brier & Moist Neck Neck Exam: Neck Supple Pulmonary Resp Exam: Breath Sounds Equal, No Distress, Crackles Cardiology CV Exam: Regular, Good Perfusion, Tachycardia Gastrointestinal/Abdomen GI Exam: Soft, Non-Tender, Bowel Sounds Present Musculoskeletal MS Exam: Joints Intact, Normal Tone, Unable to Ambulate Integumentary Skin Exam: Warm, Dry Extremeties Extremities Exam: Moderate Edema, Pitting Edema, Dependent Edema Neurologic Neuro Exam: Alert, Awake, Oriented, Speech Clear Psychiatric Psych Exam: Appropriate Responses Assessment/Plan Discussed Condition With: Patient Assessment Summary: FREDDY/Acute Renal Failure, Fluid/Volume Overload, Hypotension Electrolyte Assessment: Hypokalemia Problem List: (1) FREDDY (acute kidney injury) ICD Codes: N17.9 - Acute kidney failure, unspecified Plan: In January 2017 her renal function was normal. Had FREDDY in September, creatinine at discharge was 1.8 Obstructive uropathy, s/p R ureteral stent placement on the 16 of November. FREDDY also due to urosepsis with renal hyperperfusion Renal function is improving. Continue diuresis. K replacement orally Monitor chemistry panel. Avoid nephrotoxic agents. Has UTI (dez) on Diflucan Patient has been started on Diamox because of elevated HC03, but she had elevated PCO2 as well. pH was 7.38. (2) Tachycardia ICD Codes: R00.0 - Tachycardia, unspecified Plan: on Lopressor. Jig Grinder is managing. (3) Pneumonia ICD Codes: J18.9 - Pneumonia, unspecified organism Status: Acute Plan: ID following, on Zerbaxa and Zyvox. (4) Septic shock ICD Codes: A41.9 - Sepsis, unspecified organism; R65.21 - Severe sepsis with septic shock Plan: Pseudomonas sepsis Also po Diflucan for candiduria Continue supportive care (5) Respiratory failure ICD Codes: J96.90 - Respiratory failure, unspecified, unspecified whether with hypoxia or hypercapnia Plan: Successfully extubated Monitor respiratory status Mohinder Lopez MD Nov 29, 2017 08:07
--- NOTE | 2017-11-29 12:26 | HHI.IDPN ---
Subjective Subjective Remarks is a 67 y/o CF morbidly obese with BMI 58.7 kg/m2 who has had multiple prior admissions for MRSA pneumonia and respiratory failure presents by EMS for recurrent respiratory failure. She resides in a SNF. She was found unresponsive this morning. She was intubated in the field. She has a wbc 52k, lactate of 6.9, Cr 2.87 (baseline 0.5, prior admission discharge was 1.8). u/a concerning for probable UTI as well. In the emergency department patient received 3 IV fluid boluses and continued to be hypotensive needing vasopressor support. Upon review of records it appears she was recently treated in Oct 15 for UTI at [facility] with macrobid. LOBOR from [facility] with no antibiotics but was on lactobacillus. Spoke to CHILO Moura at [facility] patient has 2-3 episodes of vomiting yesterday at [facility] and received antiemetics. T:98, BP: 110/62, 96% RA, BS: 108. Patient was not on any antibiotics. No diarrhea. Lasix increased due to pedal edema. No cultures drawn. No flu test done per records. She has a prior h/o admission at [place] admitted in late 2016 when she was in the ICU intubated needing a trach eventually. During that admission patient was treated for MRSA pneumonia but also she has a history of pseudomonas infections in the past. Pseudomonas in the past with pansensitive cultures but given her multiple hospitalization and multiple courses of antibiotics she stands at this for multidrug-resistant Pseudomonas. At the time of my evaluation patient is in the IMC appears very critically ill intubated. Patient is on vasopressin 0.04, we will fed 40 mics, epinephrine 10/9, amiodarone drip at 1 g. Patient has 0 urine output at the present time. She has small white secretions. She has no diarrhea. Abdomen appears benign. No response to verbal or other stimuli for me but RN reports when daughter was here earlier she opened eyes, moved limbs and squeezed RNs fingers. Currently sedation is off but patient in ARF with no urine output. Infectious disease consultation was requested for evaluation and management of septic shock, pneumonia. Notes reviewed. D/W RN Has a RIMaximo CL. Solitario in place. No fevers No rash Diarrhea Cdiff positive. WBC improved after Zerbaxa started. Antibiotics Current Medications Medications (Trade) Dose Ordered Sig/Mirta Route Start Time Stop Time Status Last Admin (Brethine Inj) 1 mg UNSCH PRN SQ 11/15/17 12:45 (D50w (Vial) Inj) 25 ml UNSCH PRN IV PUSH 11/15/17 14:00 (NovoLIN R SUPPLEMENTAL SCALE) 1 Q6HR SQ 11/15/17 18:00 11/20/17 17:43 (Duoneb Neb) 1 ampule Q2HR NEB PRN INH 11/15/17 14:00 11/17/17 23:39 (Tylenol) 650 mg Q6H PRN PO 11/15/17 14:00 11/22/17 07:57 (Pepcid Inj) 10 mg Q12HR IV PUSH 11/15/17 21:00 11/26/17 09:22 (Zofran Inj) 4 mg Q6H PRN IV PUSH 11/15/17 14:00 (Heparin Inj) 5,000 units Q8H SQ 11/15/17 15:00 11/26/17 05:47 Miscellaneous Information 1 Q361D XX 11/15/17 14:00 11/15/17 19:00 (Chlorhexidine 2% Cloth) Taper DAILY@04 TOP 11/16/17 04:00 11/12/18 03:59 11/23/17 04:00 (Chlorhexidine 2% Cloth) 3 pack UNSCH PRN TOP 11/15/17 14:00 (Zelda-Colace) 1 tab BID PO 11/15/17 21:00 11/26/17 09:21 (Milk Of Magnesia Liq) 30 ml Q12H PRN PO 11/15/17 14:00 (Senokot) 17.2 mg Q12H PRN PO 11/15/17 14:00 (Dulcolax Supp) 10 mg DAILY PRN RECTAL 11/15/17 14:00 (Lactulose Liq) 30 ml DAILY PRN PO 11/15/17 14:00 Linezolid 300 ml @ 300 mls/hr Q12H IV 11/16/17 07:00 11/26/17 05:46 (Peridex 0.12% Liq) 15 ml BID@08,20 MT 11/16/17 20:00 11/26/17 08:00 (Lopressor) 25 mg Q12HR PO 11/21/17 09:00 11/26/17 09:21 Furosemide 100 mg/ Sodium Chloride 100 ml @ 10 mls/hr CONTINUOUS IV 11/21/17 11:00 11/26/17 09:20 (Duoneb Neb) 1 ampule Q4HR NEB NEB 11/22/17 12:00 11/26/17 07:27 (Vancomycin 25 Mg/ml Liq) 125 mg QID PO 11/24/17 09:00 11/26/17 09:21 (Willard 5-325 Mg) 1 tab Q4H PRN PO 11/24/17 18:15 (SoluCORTEF INJ) 25 mg DAILY IV PUSH 11/26/17 09:00 11/26/17 09:21 (Mycostatin Cream) 1 applic Q6HR TOPICAL 11/26/17 12:00 UNV Ceftolozane/ Tazobactam 1500 mg/Sodium Chloride 100 ml @ 100 mls/hr Q8H IV 11/26/17 10:00 UNV Lines RIJ TLC Past Medical History Past Medical History Chronic asthma home oxygen Atrial fibrillation Hyperlipidemia Hypertension excellent diabetes mellitus GERD Morbid obesity BMI 55 Past Surgical History Appendectomy Hernia surgery Tracheostomy placement Allergies: Coded Allergies: penicillin G (Unverified Allergy, Severe, 05/29/17) Objective . Vital Signs Date Time Temp Pulse Resp B/P (MAP) Pulse Ox O2 Delivery O2 Flow Rate FiO2 11/29/17 12:00 134 11/29/17 12:00 98.6 134 18 100/56 (71) 98 11/29/17 11:00 131 11/29/17 11:00 131 19 101/58 (72) 97 11/29/17 10:00 128 18 116/58 (77) 98 11/29/17 10:00 128 11/29/17 09:30 130 17 113/57 (75) 98 11/29/17 09:30 130 11/29/17 09:00 134 18 115/56 (75) 91 11/29/17 09:00 134 11/29/17 08:57 98 Nasal Cannula 2.00 11/29/17 08:30 133 17 112/64 (80) 93 11/29/17 08:30 133 11/29/17 08:00 132 11/29/17 08:00 98.8 132 17 111/55 (73) 98 11/29/17 07:30 135 16 98/60 (73) 96 11/29/17 07:30 135 11/29/17 07:00 131 16 115/58 (77) 95 11/29/17 07:00 131 11/29/17 06:00 128 11/29/17 04:00 98.9 127 19 113/78 (90) 99 11/29/17 04:00 127 11/29/17 02:00 123 11/29/17 00:00 97.3 109 17 114/63 (80) 99 11/29/17 00:00 109 11/28/17 22:00 135 11/28/17 21:07 100 Nasal Cannula 2.00 11/28/17 20:00 97.7 124 17 148/64 (92) 100 11/28/17 20:00 124 11/28/17 18:30 120 11/28/17 18:30 120 16 84/58 (67) 100 11/28/17 18:00 124 11/28/17 18:00 124 15 105/60 (75) 100 11/28/17 17:30 131 11/28/17 17:30 131 17 103/68 (80) 99 11/28/17 17:00 122 11/28/17 17:00 122 14 112/56 (74) 98 11/28/17 16:30 121 11/28/17 16:30 121 15 115/76 (89) 100 11/28/17 16:00 97.6 123 16 120/67 (84) 100 11/28/17 16:00 123 11/28/17 15:30 122 17 120/56 (77) 100 11/28/17 15:30 122 11/28/17 15:00 122 17 117/72 (87) 100 11/28/17 15:00 122 11/28/17 14:00 127 11/28/17 14:00 127 15 126/57 (80) 99 11/28/17 13:00 125 15 103/55 (71) 99 11/28/17 13:00 125 . Laboratory Tests Test 11/28/17 04:09 11/29/17 03:36 White Blood Count 17.8 TH/MM3 15.0 TH/MM3 Red Blood Count 3.17 MIL/MM3 2.86 MIL/MM3 Hemoglobin 8.9 GM/DL 8.1 GM/DL Hematocrit 27.6 % 25.4 % Mean Corpuscular Volume 87.0 FL 88.8 FL Mean Corpuscular Hemoglobin 28.1 PG 28.2 PG Mean Corpuscular Hemoglobin Concent 32.3 % 31.8 % Red Cell Distribution Width 20.2 % 20.9 % Platelet Count 166 TH/MM3 121 TH/MM3 Mean Platelet Volume 8.3 FL 8.2 FL Neutrophils (%) (Auto) 87.7 % Lymphocytes (%) (Auto) 6.2 % Monocytes (%) (Auto) 5.3 % Eosinophils (%) (Auto) 0.6 % Basophils (%) (Auto) 0.2 % Neutrophils # (Auto) 15.6 TH/MM3 Lymphocytes # (Auto) 1.1 TH/MM3 Monocytes # (Auto) 0.9 TH/MM3 Eosinophils # (Auto) 0.1 TH/MM3 Basophils # (Auto) 0.0 TH/MM3 CBC Comment DIFF FINAL Differential Comment Laboratory Tests Test 11/28/17 04:09 11/29/17 03:36 Blood Urea Nitrogen 49 MG/DL 47 MG/DL Creatinine 2.27 MG/DL 2.15 MG/DL Random Glucose 88 MG/DL 77 MG/DL Calcium Level 7.6 MG/DL 7.7 MG/DL Sodium Level 143 MEQ/L 144 MEQ/L Potassium Level 3.3 MEQ/L 3.2 MEQ/L Chloride Level 102 MEQ/L 103 MEQ/L Carbon Dioxide Level 32.5 MEQ/L 34.3 MEQ/L Anion Gap 9 MEQ/L 7 MEQ/L Estimat Glomerular Filtration Rate 21 ML/MIN 23 ML/MIN Imaging Last Impressions Abdomen X-Ray 11/17/17 0000 Signed Impressions: Service Date/Time: Friday, November 17, 2017 19:04 - CONCLUSION: The proximal tip of the double-J stent is either in the expected region of the right renal pelvis or proximal ureter. Allen Mensah MD Chest X-Ray 11/16/17 0000 Signed Impressions: Service Date/Time: Thursday, November 16, 2017 12:43 - CONCLUSION: 1. Right IJ central line tip near the atriocaval junction. 2. No gross pneumothorax or significant interval change. Riccardo Stack MD Abdomen/Pelvis CT 11/16/17 0000 Signed Impressions: Service Date/Time: Thursday, November 16, 2017 08:54 - CONCLUSION: 1. Moderate hydronephrosis right kidney and hydroureter. There is dense material layering within the right renal pelvis and distal ureter of uncertain etiology but could be hemorrhage. Urinalysis and clinical correlation. 2. Hyperdense left renal lesion likely complex cyst. 3. Scattered diverticulosis of the colon. 4. Left basilar consolidation. 5. Left-sided ventral wall hernia. El Nuñez MD Chest CT 11/15/17 1255 Signed Impressions: Service Date/Time: November 14:24 - CONCLUSION: 1. New consolidative infiltrate in the posterior right upper lobe most characteristic of pneumonia. 2. Consolidation also noted in the left lower lobe which is increased from the prior CT. 3. New abnormal streaky density in the posterior upper abdomen located posterior to the liver. This is nonspecific but could represent infection or inflammatory change. 4. Cardiomegaly. Chintan Marshall MD Head CT 11/15/17 1134 Signed Impressions: Service Date/Time: November 14:13 - CONCLUSION: 1. No acute hemorrhage or mass effect. 2. Atrophy and chronic small vessel ischemic change 3. Air-fluid levels in the maxillary sinuses most characteristic of acute sinusitis. Chintan Marshall MD Physical Exam GENERAL: Morbidly obese patient, intubated. NAD. Opens eyes when stimulated. Not following SKIN: Ecchymoses noted. Left thigh large 15x10 cm approx area of erythema, abrasion of skin noted, looks better Skin folds in groin and breast with erythema and fungal overgrowth, improving HEAD: Atraumatic. Normocephalic. No temporal or scalp tenderness. EYES: Pupils equal round and reactive. No icterus, pale conjunctiva. Large neck. ENT: No nasal drainage Prior trach site ok. NECK: Trachea midline. Supple, nontender, no meningeal signs. CARDIOVASCULAR: HS audible and distant. RESPIRATORY: Clear to auscultation anteriorly. Distant breath sounds. GASTROINTESTINAL: Abdomen obese, diffuse tenderness, midline ventral hernia. Pannus noted. MUSCULOSKELETAL: Pedal edema noted. No cyanosis NEUROLOGICAL: Alert, follows commands, moves all 4 extremities. IV line sites with no e.o infection. : Solitario in place color looks better Assessment & Plan Remarks IMPRESSION PSAE sepsis, with Septic shock with multiorgan dysfunction syndrome due to complicated UTI - has R pyonephrosis, S/P cysto and stent placement - still on pressors but decreasing dose, WBC lower, temps better, creatinine decreasing Pneumonia, C/S MRSA 1. Aspiration pneumonia highly likely given multiple episodes of vomiting prior to admission in the skilled nursing 2. Possible post influenza necrotizing pneumonia. 3. Health care pneumonia. Diarrhea: Cdiff positive. Candiduria Leukemoid reaction: Cdiff, other infections, steroids. Staph coag neg bacteremia: likely contaminant. Acute respiratory failure on vent Acute renal failure with anuria, due to sepsis and shock. Morbid obesity BMI 58.7 KG per meter squared Nausea vomiting prior to admission Recommendations: Continue Zerbaxa IV (plan on 2 weeks total from start of effective therapy) Continue Zyvox IV (MRSA pneumonia: plan on CXR follow up and clinical follow up to decide stop date). Also patient has Left thigh cellulitis. Continue oral Vanco (while on IV antibiotics need suppression) Continue oral diflucan (few more days will decide based on clinical follow up on cellulitis). lencho RN Follow cultures Follow clinically. Amy Cartagena MD Nov 29, 2017 12:26
[2017-11-30] VITALS (9 sets, daily range): BP systolic 87–138; BP diastolic 53–63; PULSE 94–125; RESP 16–22; TEMP 97.4–98.8; O2SAT 95–98
[2017-11-30] MEDS: CEFTOLOZANE-TAZOBACTAM INJ 1,500 MG in SODIUM CHLORIDE 0.9% INJ 100 ML IV SCH ×3 (03:00→19:32)
[2017-11-30] MEDS: CHLORHEXIDINE GLUCONATE 2 % 1 PACK (2 CLOTHS) TOP SCH (04:00)
[2017-11-30 05:25] LABS: BICARBONATE 32.6 MEQ/L (21.0-32.0); CALCIUM 7.6 MG/DL (8.5-10.1); CREATININE 2.1 MG/DL (0.50-1.00)
[2017-11-30] MEDS: DILTIAZEM HCL 60 MG TAB PO SCH ×3 (06:03→19:26)
[2017-11-30] MEDS: NYSTATIN 100,000 UNIT/GM CREAM 15 GM TOPICAL SCH ×3 (06:03→19:31)
[2017-11-30] MEDS: HEPARIN SODIUM - SQ 10,000 UNITS/ML VIAL SQ SCH ×3 (08:12→22:47)
[2017-11-30] MEDS: LINEZOLID 600 MG PREMIX 300 ML IV SCH ×2 (08:12→19:31)
[2017-11-30] MEDS: CHLORHEXIDINE 0.12% (ORAL KIT) 15 ML CUP MT SCH ×2 (08:24→20:00)
[2017-11-30] MEDS: FLUCONAZOLE 100 MG TAB PO SCH (08:24)
[2017-11-30] MEDS: FAMOTIDINE 20 MG/2 ML VIAL IV PUSH SCH ×2 (08:25→21:10)
[2017-11-30] MEDS: FUROSEMIDE 40 MG/4 ML VIAL IV PUSH SCH ×2 (08:25→18:00)
[2017-11-30] MEDS: DOCUSATE SODIUM 50 MG/SENNA 8.6 MG TAB PO SCH ×2 (08:25→21:00)
[2017-11-30] MEDS: VANCOMYCIN 25 MG/ML SUSP 100 ML BOTTLE PO SCH ×4 (08:25→21:11)
--- NOTE | 2017-11-30 08:44 | HHI.CCPN ---
Subjective Remarks/Hospital Course Hospital Course: 67yF with super morbid obesity who has had multiple prior admissions for MRSA pneumonia and respiratory failure presents by EMS for recurrent respiratory failure. She resides in a SNF. She was found unresponsive this morning. She was intubated in the field. In the emergency department she was hypotensive despite ivf resuscitation and required norepinephrine for vasopressor support. she has a wbc 52k, lactate of 6.9, Cr 2.87 (baseline 0.5, prior admission discharge was 1.8). u/a concerning for probable UTI as well. Subjective: 2: remained unstable throughout the night overnight. on 3 vasopressors. this morning, no better, wbc higher. decision by Dr. Cartagena and myself to emergently CT abd/pelvis to rule out source control, despite ongoing hemodynamic instability. CT abd/pelvis demonstrated right hydronephrosis with likely obstructive pyelonephritis. discussed with urology and interventional radiology : likely to decompensate during procedure. unable to physically prone patient. difficult technically with high risk to do supine lateral CT guided perc nephrostomy tube. urology to take to the OR for cysto with stenting. Prior to leaving for OR, patient's central line was pulled accidentally. patient had no other iv access. I/O needles unavailable. emergently replaced central line in right IJ (see separate procedure note for details). due to ongoing shock, patient's blood pressure in 40s systolic during this time. restarted vasopressors after central access regained. went to OR. cultures growing pseudomonas. 2: minimal improvements. taken to OR yesterday for cysto. minimal uop overnight. off epinephrine but remains on 2 vasopressors, in shock. wbc downtrending but > 50k. 11/18: vasopressor requirements are improving slightly. remains on 2 vasopressors and in shock. blood and urine growing pseudomonas, sputum growing MRSA (history of MRSA pneumonia). wbc downtrending, but remains very high. uop marginal. 11/19 Patient remains sedated and intubated. On Levophed 2 mics, Vasopressin 0.04 mics. WBC is trending down. 11/20 Patient remains intubated and on Precedex for sedation. Remains on Vasopressin and Levophed 8 mics. Afebrile. 11/21 No events overnight. Off pressors and off Precedex. Awake, alert tolerated CPAP for several hrs yesterday 11/22 Patient is awake and alert tolerated CPAP yesterday. Off sedation. Placed on Lasix drip 20mg/hr per renal. Afebrile. 11/23 Patient s/p extubation yesterday on 2L oxygen with good sats. Awake and alert. 11/24: No acute events overnight. Lortab 5/325 mg PRN for pain added to medication regimen. 11/25: Afebrile. Patient resting comfortably, no acute events overnight. Patient awake and responsive. Patient noted to have a poor appetite with pureed diet supplementation with boost supplementation with every meal added. 11/26 No events overnight. On Lasix 10mg/hr. Awake and alert. Afebrile. 11/27 Patient is on 2L oxygen, on Lasix drip 10mg/hr,BP borderline low this morning 11/28: remains on 2L o2 by NC. on BID lasix dosing. blood pressure stable. tachycardia remains, but does not appear to be secondary to volume depletion. 11/29: still doing well. on nc o2. diuresing well. tachycardia improved overnight with lopressor: will schedule diltiazem for AVN blockade. more alkalotic as well. tolerating diet. needs aggressive PT. 11/30 No events overnight. On 2L oxygen. Afebrile, Objective Vital Signs Date Time Temp Pulse Resp B/P (MAP) Pulse Ox O2 Delivery O2 Flow Rate FiO2 11/30/17 04:00 111 11/30/17 04:00 98.2 16 108/53 (71) 98 11/29/17 19:30 Nasal Cannula 2.00 Result Diagram: 11/29/17 0336 11/30/17 0448 Other Results Laboratory Tests Test 11/30/17 04:48 11/30/17 05:00 Blood Urea Nitrogen 45 MG/DL Creatinine 2.10 MG/DL Random Glucose 70 MG/DL Calcium Level 7.6 MG/DL Sodium Level 145 MEQ/L Potassium Level 4.0 MEQ/L Chloride Level 106 MEQ/L Carbon Dioxide Level 32.6 MEQ/L Anion Gap 6 MEQ/L Estimat Glomerular Filtration Rate 23 ML/MIN Prealbumin 21 MG/DL Imaging Last Impressions Chest CT 11/26/17 0000 Signed Impressions: Service Date/Time: Sunday, November 26, 2017 17:16 - CONCLUSION: 1. Improvement in bilateral lung consolidation since November 15. Interval development of small bilateral effusions, right greater than left. Sachin Gonzalez MD Abdomen/Pelvis CT 11/26/17 0000 Signed Impressions: Service Date/Time: Sunday, November 26, 2017 17:16 - CONCLUSION: Very limited exam because of arms and body habitus. I don't see abscess or free air. Double-J stent on the right. Joseph Baeza MD FACR Chest X-Ray 11/24/17 0000 Signed Impressions: Service Date/Time: Friday, November 24, 2017 03:36 - CONCLUSION: 1. Improved right lung consolidation. Persistent consolidation left base. Interval extubation. Sachin Gonzalez MD Abdomen X-Ray 11/17/17 0000 Signed Impressions: Service Date/Time: Friday, November 17, 2017 19:04 - CONCLUSION: The proximal tip of the double-J stent is either in the expected region of the right renal pelvis or proximal ureter. Allen Mensah MD Head CT 11/15/17 1134 Signed Impressions: Service Date/Time: November 14:13 - CONCLUSION: 1. No acute hemorrhage or mass effect. 2. Atrophy and chronic small vessel ischemic change 3. Air-fluid levels in the maxillary sinuses most characteristic of acute sinusitis. Chintan Marshall MD Objective Remarks GENERAL: This is a super morbidly obese female 67 yo lying in bed in NAD SKIN: Warm and dry. HEAD: Normocephalic. EYES: No scleral icterus. No injection or drainage. NECK: trachea midline. JVD unable to be assessed due to body habitus. CARDIOVASCULAR: Tachycardic rate, irregularly irregular rhythm. afib by tele. RESPIRATORY: Breath sounds equal bilaterally. No accessory muscle use. 2L nc. GASTROINTESTINAL: Abdomen soft, protuberant, non-tender, nondistended. MUSCULOSKELETAL: No cyanosis, + edema. Neuro: Lethargic at times A/P Assessment and Plan Assessment: 67yF with super morbid obesity who was originally admitted with obstructive uropathy, GNR septic shock, acute hypoxic respiratory failure, multiorgan failure. clinically improving. will attempt to control HR and continue diuresis. Neuro: Metabolic Encephalopathy - improved Chronic Pain - Awake and alert - Lortab 5/325 mg PRN Resp: Acute hypoxic and hypercarbic respiratory failure- Extubated 11/22 Healthcare Associated Pneumonia Continue with oxygen keep sat >92% Bronchodilators, IS, check ABG NIPPV PRN for resp distress - sputum culture: MRSA CT chest 11/26: Improvement in bilateral lung consolidation since November 15. small bilateral effusions, right greater than left. CV: s/p Septic Shock - Atrial fibrillation with rapid ventricular response - Monitor HR and BP keep MAP>65mmHg. On diltiazem 60mg po q6h Renal: Acute Kidney Injury - resolving. Acute pyelonephritis Metabolic alkalosis secondary to intravascular volume contraction Monitor renal function, I/O's, avoid nephrotoxins On Lasix 40mg BID Cr: 2.10 from 2.15, UOP: 850ml in 24 hrs - s/p Emergent cysto with stent 11/16, Urology is following Renal is following- Dr. Lopez FEN/GI: Super Morbid Obesity Lactic Acidosis- cleared Anion-gap Metabolic acidosis- resolved. Acute intravascular volume overload Severe acute protein calorie malnutrition -Pured diet, poor oral intake -Pepcid for GI prophylaxis -CT abdomen/pelvis: No abscess or free air d/c rectal tube. Heme/ID: History of prior MRSA pneumonia Acute pyelonephritis Pseudomonas bacteremia Positive C-diff - ID on board. - Abx per Mitzi. On Zyvox, Zerbaxa, PO Vanco, Diflucan. Monitor for signs of infections ( Fever, WBC) WBC is trending down -11/25 urine cx : C. Albicans -11/20 BC :NGTD -11/17 BC: Coag negative staph / bottles..likely contaminant - 11/17 Urine cx :Pseudomonas - 2/1 blood cultures: pseudomonas - 2/1 urine culture: pseudomonas - 2/1 sputum culture: MRSA Endocrine: Hyperglycemia of Critical Illness- resolved. - d/c SSI. Musculoskeletal: Polyneuropathy of critical illness - Generalized anasarca -PT/OT evaluate and treat Prophylaxis: SCDs, SQH Pepcid Lines: -peripheral IV's PT/OT eval and treat Level 2 Juma Pak MD Nov 30, 2017 08:44
--- NOTE | 2017-11-30 12:54 | HHI.IDPN ---
Subjective Subjective Remarks is a 67 y/o CF morbidly obese with BMI 58.7 kg/m2 who has had multiple prior admissions for MRSA pneumonia and respiratory failure presents by EMS for recurrent respiratory failure. She resides in a SNF. She was found unresponsive this morning. She was intubated in the field. She has a wbc 52k, lactate of 6.9, Cr 2.87 (baseline 0.5, prior admission discharge was 1.8). u/a concerning for probable UTI as well. In the emergency department patient received 3 IV fluid boluses and continued to be hypotensive needing vasopressor support. Upon review of records it appears she was recently treated in Oct 15 for UTI at [facility] with macrobid. EMAR from [facility] with no antibiotics but was on lactobacillus. Spoke to CHILO Moura at [facility] patient has 2-3 episodes of vomiting yesterday at [facility] and received antiemetics. T:98, BP: 110/62, 96% RA, BS: 108. Patient was not on any antibiotics. No diarrhea. Lasix increased due to pedal edema. No cultures drawn. No flu test done per records. She has a prior h/o admission at [facility] admitted in late 2016 when she was in the ICU intubated needing a trach eventually. During that admission patient was treated for MRSA pneumonia but also she has a history of pseudomonas infections in the past. Pseudomonas in the past with pansensitive cultures but given her multiple hospitalization and multiple courses of antibiotics she stands at this for multidrug-resistant Pseudomonas. At the time of my evaluation patient is in the IMC appears very critically ill intubated. Patient is on vasopressin 0.04, we will fed 40 mics, epinephrine 10/9, amiodarone drip at 1 g. Patient has 0 urine output at the present time. She has small white secretions. She has no diarrhea. Abdomen appears benign. No response to verbal or other stimuli for me but RN reports when daughter was here earlier she opened eyes, moved limbs and squeezed RNs fingers. Currently sedation is off but patient in ARF with no urine output. Infectious disease consultation was requested for evaluation and management of septic shock, pneumonia. Notes reviewed. D/W CHILO Solitario in place. No fevers No rash RIJ DC'ed 11/29/2017 Antibiotics Current Medications Medications (Trade) Dose Ordered Sig/Mirta Route Start Time Stop Time Status Last Admin (Brethine Inj) 1 mg UNSCH PRN SQ 11/15/17 12:45 (D50w (Vial) Inj) 25 ml UNSCH PRN IV PUSH 11/15/17 14:00 (Duoneb Neb) 1 ampule Q2HR NEB PRN INH 11/15/17 14:00 11/17/17 23:39 (Tylenol) 650 mg Q6H PRN PO 11/15/17 14:00 11/27/17 16:05 (Pepcid Inj) 10 mg Q12HR IV PUSH 11/15/17 21:00 11/30/17 08:25 (Zofran Inj) 4 mg Q6H PRN IV PUSH 11/15/17 14:00 11/27/17 17:52 (Heparin Inj) 5,000 units Q8H SQ 11/15/17 15:00 11/30/17 08:12 Miscellaneous Information 1 Q361D XX 11/15/17 14:00 11/15/17 19:00 (Chlorhexidine 2% Cloth) Taper DAILY@04 TOP 11/16/17 04:00 11/12/18 03:59 11/30/17 04:00 (Chlorhexidine 2% Cloth) 3 pack UNSCH PRN TOP 11/15/17 14:00 (Zelda-Colace) 1 tab BID PO 11/15/17 21:00 11/29/17 21:27 (Milk Of Magnesia Liq) 30 ml Q12H PRN PO 11/15/17 14:00 (Senokot) 17.2 mg Q12H PRN PO 11/15/17 14:00 (Dulcolax Supp) 10 mg DAILY PRN RECTAL 11/15/17 14:00 (Lactulose Liq) 30 ml DAILY PRN PO 11/15/17 14:00 Linezolid 300 ml @ 300 mls/hr Q12H IV 11/16/17 07:00 11/30/17 08:12 (Peridex 0.12% Liq) 15 ml BID@08,20 MT 11/16/17 20:00 11/30/17 08:24 (Vancomycin 25 Mg/ml Liq) 125 mg QID PO 11/24/17 09:00 11/30/17 08:25 (Luck 5-325 Mg) 1 tab Q4H PRN PO 11/24/17 18:15 11/29/17 10:51 (Mycostatin Cream) 1 applic Q6HR TOPICAL 11/26/17 12:00 11/30/17 11:35 Ceftolozane/ Tazobactam 1500 mg/Sodium Chloride 100 ml @ 100 mls/hr Q8H IV 11/26/17 11:00 11/30/17 11:34 (Diflucan) 100 mg DAILY PO 11/26/17 20:00 11/30/17 08:24 (Lasix Inj) 40 mg BID@,18 IV PUSH 11/28/17 10:00 11/30/17 08:25 (Cardizem) 60 mg Q6HR PO 11/29/17 06:15 11/30/17 11:35 (Diamox Inj) 500 mg Q24H IV 11/30/17 09:00 11/30/17 08:25 Lines RIJ TLC Past Medical History Past Medical History Chronic asthma home oxygen Atrial fibrillation Hyperlipidemia Hypertension excellent diabetes mellitus GERD Morbid obesity BMI 55 Past Surgical History Appendectomy Hernia surgery Tracheostomy placement Allergies: Coded Allergies: penicillin G (Unverified Allergy, Severe, 05/29/17) Objective . Vital Signs Date Time Temp Pulse Resp B/P (MAP) Pulse Ox O2 Delivery O2 Flow Rate FiO2 11/30/17 09:51 97 Nasal Cannula 2.00 11/30/17 04:00 111 11/30/17 04:00 98.2 111 16 108/53 (71) 98 11/30/17 02:00 118 11/30/17 00:00 112 11/30/17 00:00 98.7 112 16 115/58 (77) 95 11/29/17 22:00 117 11/29/17 20:00 109 11/29/17 20:00 98.4 109 17 109/55 (73) 96 11/29/17 19:30 97 Nasal Cannula 2.00 11/29/17 18:00 123 17 140/53 (82) 97 11/29/17 18:00 123 11/29/17 16:00 122 11/29/17 16:00 98.6 122 16 104/57 (73) 96 11/29/17 15:00 123 11/29/17 14:00 127 11/29/17 14:00 127 18 112/55 (74) 98 11/29/17 13:00 130 . Laboratory Tests Test 11/29/17 03:36 11/30/17 05:00 White Blood Count 15.0 TH/MM3 Red Blood Count 2.86 MIL/MM3 Hemoglobin 8.1 GM/DL Hematocrit 25.4 % Mean Corpuscular Volume 88.8 FL Mean Corpuscular Hemoglobin 28.2 PG Mean Corpuscular Hemoglobin Concent 31.8 % Red Cell Distribution Width 20.9 % Platelet Count 121 TH/MM3 Mean Platelet Volume 8.2 FL Laboratory Tests Test 11/29/17 03:36 11/30/17 04:48 Blood Urea Nitrogen 47 MG/DL 45 MG/DL Creatinine 2.15 MG/DL 2.10 MG/DL Random Glucose 77 MG/DL 70 MG/DL Calcium Level 7.7 MG/DL 7.6 MG/DL Sodium Level 144 MEQ/L 145 MEQ/L Potassium Level 3.2 MEQ/L 4.0 MEQ/L Chloride Level 103 MEQ/L 106 MEQ/L Carbon Dioxide Level 34.3 MEQ/L 32.6 MEQ/L Anion Gap 7 MEQ/L 6 MEQ/L Estimat Glomerular Filtration Rate 23 ML/MIN 23 ML/MIN Prealbumin 21 MG/DL Imaging Last Impressions Abdomen X-Ray 11/17/17 0000 Signed Impressions: Service Date/Time: Friday, November 17, 2017 19:04 - CONCLUSION: The proximal tip of the double-J stent is either in the expected region of the right renal pelvis or proximal ureter. Allen Mensah MD Chest X-Ray 11/16/17 0000 Signed Impressions: Service Date/Time: Thursday, November 16, 2017 12:43 - CONCLUSION: 1. Right IJ central line tip near the atriocaval junction. 2. No gross pneumothorax or significant interval change. Riccardo Stack MD Abdomen/Pelvis CT 11/16/17 0000 Signed Impressions: Service Date/Time: Thursday, November 16, 2017 08:54 - CONCLUSION: 1. Moderate hydronephrosis right kidney and hydroureter. There is dense material layering within the right renal pelvis and distal ureter of uncertain etiology but could be hemorrhage. Urinalysis and clinical correlation. 2. Hyperdense left renal lesion likely complex cyst. 3. Scattered diverticulosis of the colon. 4. Left basilar consolidation. 5. Left-sided ventral wall hernia. El Nuñez MD Chest CT 11/15/17 1255 Signed Impressions: Service Date/Time: November 14:24 - CONCLUSION: 1. New consolidative infiltrate in the posterior right upper lobe most characteristic of pneumonia. 2. Consolidation also noted in the left lower lobe which is increased from the prior CT. 3. New abnormal streaky density in the posterior upper abdomen located posterior to the liver. This is nonspecific but could represent infection or inflammatory change. 4. Cardiomegaly. Chintan Marshall MD Head CT 11/15/17 1134 Signed Impressions: Service Date/Time: November 14:13 - CONCLUSION: 1. No acute hemorrhage or mass effect. 2. Atrophy and chronic small vessel ischemic change 3. Air-fluid levels in the maxillary sinuses most characteristic of acute sinusitis. Chintan Marshall MD Physical Exam GENERAL: Morbidly obese patient, intubated. NAD. Opens eyes when stimulated. Not following SKIN: Ecchymoses noted. Left thigh large 15x10 cm approx area of erythema, abrasion of skin noted, looks better Skin folds in groin and breast with erythema and fungal overgrowth, improving HEAD: Atraumatic. Normocephalic. No temporal or scalp tenderness. EYES: Pupils equal round and reactive. No icterus, pale conjunctiva. Large neck. ENT: No nasal drainage Prior trach site ok. NECK: Trachea midline. Supple, nontender, no meningeal signs. CARDIOVASCULAR: HS audible and distant. RESPIRATORY: Clear to auscultation anteriorly. Distant breath sounds. GASTROINTESTINAL: Abdomen obese, diffuse tenderness, midline ventral hernia. Pannus noted. MUSCULOSKELETAL: Pedal edema noted. No cyanosis NEUROLOGICAL: Alert, follows commands, moves all 4 extremities. IV line sites with no e.o infection. : Solitario in place color looks better Assessment & Plan Remarks IMPRESSION PSAE sepsis, with Septic shock with multiorgan dysfunction syndrome due to complicated UTI - has R pyonephrosis, S/P cysto and stent placement - still on pressors but decreasing dose, WBC lower, temps better, creatinine decreasing Pneumonia, C/S MRSA 1. Aspiration pneumonia highly likely given multiple episodes of vomiting prior to admission in the [facility] 2. Possible post influenza necrotizing pneumonia. 3. Health care pneumonia. Diarrhea: Cdiff positive. Candiduria Leukemoid reaction: Cdiff, other infections, steroids. Staph coag neg bacteremia: likely contaminant. Acute respiratory failure on vent Acute renal failure with anuria, due to sepsis and shock. Morbid obesity BMI 58.7 KG per meter squared Nausea vomiting prior to admission Recommendations: Continue Zerbaxa IV (plan on 2 weeks total from start of effective therapy) Continue Zyvox IV (MRSA pneumonia: plan on CXR follow up and clinical follow up to decide stop date). Also patient has Left thigh cellulitis. Will likely stop Zerbaxa and Zyvox on Sunday if clinically stable, CXR improved and WBC normal. Patient has completed 2 week course for PSAE bacteremia, complicated UTI and Pneumonia. Will reassess clinically on Sunday. No oral suppression option for suppression available. Will dw Urology if ok to stop at 2 weeks given no oral suppression option. Continue oral Vanco (while on IV antibiotics need suppression) will need 10 more days after all other antibiotics stopped. Continue oral diflucan (few more days will decide based on clinical follow up on cellulitis) will likely stop on Sunday. lencho RN Follow cultures Follow clinically. covering for me this weekend and available prn. Amy Cartagena MD Nov 30, 2017 12:54
--- NOTE | 2017-11-30 13:56 | HHI.NPPN ---
Subjective General Problems: Edema Renal Failure: Acute Interval History Renal function is improving. Edema and tachycardia persist. (Suad Lucas) Review of Systems Respiratory Lungs: SOB (Suad Lucas) Cardiovascular Cardiac: Edema (Suad Lucas) Objective Data Data Vital Signs Date Time Temp Pulse Resp B/P (MAP) Pulse Ox O2 Delivery O2 Flow Rate FiO2 11/30/17 09:51 97 Nasal Cannula 2.00 11/30/17 04:00 111 11/30/17 04:00 98.2 111 16 108/53 (71) 98 11/30/17 02:00 118 11/30/17 00:00 112 11/30/17 00:00 98.7 112 16 115/58 (77) 95 11/29/17 22:00 117 11/29/17 20:00 109 11/29/17 20:00 98.4 109 17 109/55 (73) 96 11/29/17 19:30 97 Nasal Cannula 2.00 11/29/17 18:00 123 17 140/53 (82) 97 11/29/17 18:00 123 11/29/17 16:00 122 11/29/17 16:00 98.6 122 16 104/57 (73) 96 11/29/17 15:00 123 11/29/17 14:00 127 11/29/17 14:00 127 18 112/55 (74) 98 (Suad Lucas) -: 11/29/17 0336 11/30/17 0448 Tubes & Lines: Garcia Tubes & Lines Comment TLC right IJ (Suad Lucas) Physical Exam General Appearance: Well Nourished, No Acute Distress, Comfortable, Sleeping, Obese (Suad Lucas) Eyes Eye Exam: Pupils Equal (Suad Lucas) Throat Throat Exam: Oral Mucosa [place] & Moist (Suad Lucas) Neck Neck Exam: Neck Supple (Suad Lucas) Pulmonary Resp Exam: Breath Sounds Equal, No Distress, Crackles (Suad Lucas) Cardiology CV Exam: Regular, Good Perfusion, Tachycardia (Suad Lucas) Gastrointestinal/Abdomen GI Exam: Soft, Non-Tender, Bowel Sounds Present GI Remarks morbidly obese (Suad Lucas) Musculoskeletal MS Exam: Joints Intact, Normal Tone, Unable to Ambulate (Suad Lucas) Integumentary Skin Exam: Warm, Dry (Suad Lucas) Extremeties Extremities Exam: Moderate Edema, Pitting Edema, Dependent Edema Extremeties Remarks extensive edema, anasarca , 4+ pitting (Suad Lucas) Neurologic Neuro Exam: Alert, Awake, Oriented, Speech Clear (Suad Lucas) Psychiatric Psych Exam: Appropriate Responses (Suad Lucas) Assessment/Plan Discussed Condition With: Patient Assessment Summary: FREDDY/Acute Renal Failure, Fluid/Volume Overload, Hypotension Electrolyte Assessment: Hypokalemia Problem List: (1) FREDDY (acute kidney injury) ICD Codes: N17.9 - Acute kidney failure, unspecified Plan: In January 2017 her renal function was normal. Had FREDDY in September, creatinine at discharge was 1.8 Obstructive uropathy, s/p R ureteral stent placement on the 16 of November. FREDDY also due to urosepsis with renal hyperperfusion Renal function improving slowly Continue diuresis. On Lasix 40 BID IV. K replacement orally if needed. Monitor chemistry panel. Avoid nephrotoxic agents. Has UTI (dez) on Diflucan. Would prefer to remove garcia but given sacral wound and immobility, it may cause more harm than good. Patient has been started on Diamox because of elevated HC03, but she had elevated PCO2 as well. pH was 7.38. (2) Tachycardia ICD Codes: R00.0 - Tachycardia, unspecified Plan: on Cardizem. Start PO Lopressor. (3) Pneumonia ICD Codes: J18.9 - Pneumonia, unspecified organism Status: Acute Plan: ID following, on Zerbaxa and Zyvox. (4) Septic shock ICD Codes: A41.9 - Sepsis, unspecified organism; R65.21 - Severe sepsis with septic shock Plan: Pseudomonas sepsis Also po Diflucan for candiduria Continue supportive care (5) Respiratory failure ICD Codes: J96.90 - Respiratory failure, unspecified, unspecified whether with hypoxia or hypercapnia Plan: Successfully extubated Monitor respiratory status (Suad Lucas) Plan patient was seen and examined. Renal function has improved. Continue diuresis. (Mohinder Lopez MD) Suad Lucas Nov 30, 2017 13:56 Mohinder Lopez MD Nov 30, 2017 15:36
[2017-11-30] MEDS: METOPROLOL TARTRATE 25 MG TAB PO SCH ×2 (15:00→21:11)
[2017-11-30 15:47] LABS: HEMATOCRIT 26.6 % (35.0-46.0); HEMOGLOBIN 8.3 GM/DL (11.6-15.3); MEAN CELL VOLUME 91.4 FL (80.0-100.0); MEAN CORPUSCULAR HEMOGLOBIN 28.5 PG (27.0-34.0); MEAN CORPUSCULAR HGB CONC 31.1 % (32.0-36.0); MEAN PLATELET VOLUME 8.5 FL (7.0-11.0); PLATELET COUNT 108 TH/MM3 (150-450); RED BLOOD COUNT 2.91 MIL/MM3 (4.00-5.30); RED CELL DISTRIBUTION WIDTH 21.1 % (11.6-17.2); WHITE BLOOD COUNT 11.4 TH/MM3 (4.0-11.0)
[2017-12-01] VITALS (14 sets, daily range): BP systolic 113–132; BP diastolic 59–77; PULSE 89–108; RESP 17–18; TEMP 97.7–98.8; O2SAT 95–98
[2017-12-01] MEDS: NYSTATIN 100,000 UNIT/GM CREAM 15 GM TOPICAL SCH ×4 (00:56→18:00)
[2017-12-01] MEDS: DILTIAZEM HCL 60 MG TAB PO SCH ×5 (00:56→22:24)
[2017-12-01] MEDS: CHLORHEXIDINE GLUCONATE 2 % 1 PACK (2 CLOTHS) TOP SCH (02:58)
[2017-12-01] MEDS: CEFTOLOZANE-TAZOBACTAM INJ 1,500 MG in SODIUM CHLORIDE 0.9% INJ 100 ML IV SCH ×3 (03:09→22:22)
[2017-12-01] MEDS: LINEZOLID 600 MG PREMIX 300 ML IV SCH ×2 (05:38→22:22)
[2017-12-01] MEDS: HEPARIN SODIUM - SQ 10,000 UNITS/ML VIAL SQ SCH ×3 (05:38→22:23)
[2017-12-01 06:40] LABS: AUTOMATED NEUTROPHIL # 8.2 TH/MM3 (1.8-7.7); BASOPHIL % 0.4 % (0.0-2.0); EOSINOPHIL # 0.3 TH/MM3 (0-0.4); EOSINOPHIL % 2.8 % (0.0-4.0); HEMOGLOBIN 8.1 GM/DL (11.6-15.3); LYMPH % 9.4 % (9.0-44.0); MEAN CELL VOLUME 90.4 FL (80.0-100.0); MEAN CORPUSCULAR HEMOGLOBIN 29.2 PG (27.0-34.0); MEAN CORPUSCULAR HGB CONC 32.3 % (32.0-36.0); MEAN PLATELET VOLUME 8.5 FL (7.0-11.0); MONO % 7.2 % (0.0-8.0); MONOCYTE # 0.7 TH/MM3 (0-0.9); NEUT % 80.2 % (16.0-70.0); PLATELET COUNT 98 TH/MM3 (150-450); RED BLOOD COUNT 2.77 MIL/MM3 (4.00-5.30); RED CELL DISTRIBUTION WIDTH 20.6 % (11.6-17.2); WHITE BLOOD COUNT 10.3 TH/MM3 (4.0-11.0)
[2017-12-01 07:05] LABS: BICARBONATE 34.2 MEQ/L (21.0-32.0); CALCIUM 8.1 MG/DL (8.5-10.1); CREATININE 2.17 MG/DL (0.50-1.00)
--- NOTE | 2017-12-01 07:33 | HHI.CCPN ---
Subjective Remarks/Hospital Course Hospital Course: 67yF with super morbid obesity who has had multiple prior admissions for MRSA pneumonia and respiratory failure presents by EMS for recurrent respiratory failure. She resides in a SNF. She was found unresponsive this morning. She was intubated in the field. In the emergency department she was hypotensive despite ivf resuscitation and required norepinephrine for vasopressor support. she has a wbc 52k, lactate of 6.9, Cr 2.87 (baseline 0.5, prior admission discharge was 1.8). u/a concerning for probable UTI as well. Subjective: 2: remained unstable throughout the night overnight. on 3 vasopressors. this morning, no better, wbc higher. decision by Dr. Cartagena and myself to emergently CT abd/pelvis to rule out source control, despite ongoing hemodynamic instability. CT abd/pelvis demonstrated right hydronephrosis with likely obstructive pyelonephritis. discussed with urology and interventional radiology : likely to decompensate during procedure. unable to physically prone patient. difficult technically with high risk to do supine lateral CT guided perc nephrostomy tube. urology to take to the OR for cysto with stenting. Prior to leaving for OR, patient's central line was pulled accidentally. patient had no other iv access. I/O needles unavailable. emergently replaced central line in right IJ (see separate procedure note for details). due to ongoing shock, patient's blood pressure in 40s systolic during this time. restarted vasopressors after central access regained. went to OR. cultures growing pseudomonas. 2: minimal improvements. taken to OR yesterday for cysto. minimal uop overnight. off epinephrine but remains on 2 vasopressors, in shock. wbc downtrending but > 50k. 11/18: vasopressor requirements are improving slightly. remains on 2 vasopressors and in shock. blood and urine growing pseudomonas, sputum growing MRSA (history of MRSA pneumonia). wbc downtrending, but remains very high. uop marginal. 11/19 Patient remains sedated and intubated. On Levophed 2 mics, Vasopressin 0.04 mics. WBC is trending down. 11/20 Patient remains intubated and on Precedex for sedation. Remains on Vasopressin and Levophed 8 mics. Afebrile. 11/21 No events overnight. Off pressors and off Precedex. Awake, alert tolerated CPAP for several hrs yesterday 11/22 Patient is awake and alert tolerated CPAP yesterday. Off sedation. Placed on Lasix drip 20mg/hr per renal. Afebrile. 11/23 Patient s/p extubation yesterday on 2L oxygen with good sats. Awake and alert. 11/24: No acute events overnight. Lortab 5/325 mg PRN for pain added to medication regimen. 11/25: Afebrile. Patient resting comfortably, no acute events overnight. Patient awake and responsive. Patient noted to have a poor appetite with pureed diet supplementation with boost supplementation with every meal added. 11/26 No events overnight. On Lasix 10mg/hr. Awake and alert. Afebrile. 11/27 Patient is on 2L oxygen, on Lasix drip 10mg/hr,BP borderline low this morning 11/28: remains on 2L o2 by NC. on BID lasix dosing. blood pressure stable. tachycardia remains, but does not appear to be secondary to volume depletion. 11/29: still doing well. on nc o2. diuresing well. tachycardia improved overnight with Lopressor: will schedule diltiazem for AVN blockade. more alkalotic as well. tolerating diet. needs aggressive PT. 11/30 No events overnight. On 2L oxygen. Afebrile, 12/01 Patient is lying in bed in NAD. On 2L oxygen. Afebrile. Objective Vital Signs Date Time Temp Pulse Resp B/P (MAP) Pulse Ox O2 Delivery O2 Flow Rate FiO2 12/01/17 06:00 94 12/01/17 04:00 98.0 17 128/62 (84) 98 11/30/17 20:00 Nasal Cannula 2.00 Intake and Output 12/01/17 12/01/17 12/02/17 08:00 16:00 00:00 Intake Total 640 ml Output Total 950 ml Balance -310 ml Result Diagram: 12/01/1727 12/01/17526 Other Results Laboratory Tests Test 11/30/17 09:55 11/30/17 13:55 12/01/17 05:27 Blood Gas Puncture Site RT RADIAL Blood Gas Patient Temperature 98.6 Blood Gas HCO3 31 mmol/L Blood Gas Base Excess 5.4 mmol/L Blood Gas Oxygen Saturation 96 % Arterial Blood pH 7.34 Arterial Blood Partial Pressure CO2 58 mmHg Arterial Blood Partial Pressure O2 122 mmHg Arterial Blood Oxygen Content 11.3 Vol % Arterial Blood Carboxyhemoglobin 1.6 % Arterial Blood Methemoglobin 1.4 % Blood Gas Hemoglobin 8.2 G/DL Oxygen Delivery Device NASAL CANNULA Blood Gas Liter Flow 2 L/M White Blood Count 11.4 TH/MM3 10.3 TH/MM3 Red Blood Count 2.91 MIL/MM3 2.77 MIL/MM3 Hemoglobin 8.3 GM/DL 8.1 GM/DL Hematocrit 26.6 % 25.0 % Mean Corpuscular Volume 91.4 FL 90.4 FL Mean Corpuscular Hemoglobin 28.5 PG 29.2 PG Mean Corpuscular Hemoglobin Concent 31.1 % 32.3 % Red Cell Distribution Width 21.1 % 20.6 % Platelet Count 108 TH/MM3 98 TH/MM3 Mean Platelet Volume 8.5 FL 8.5 FL Neutrophils (%) (Auto) 80.2 % Lymphocytes (%) (Auto) 9.4 % Monocytes (%) (Auto) 7.2 % Eosinophils (%) (Auto) 2.8 % Basophils (%) (Auto) 0.4 % Neutrophils # (Auto) 8.2 TH/MM3 Lymphocytes # (Auto) 1.0 TH/MM3 Monocytes # (Auto) 0.7 TH/MM3 Eosinophils # (Auto) 0.3 TH/MM3 Basophils # (Auto) 0.0 TH/MM3 CBC Comment AUTO DIFF Blood Urea Nitrogen 47 MG/DL Creatinine 2.17 MG/DL Random Glucose 83 MG/DL Calcium Level 8.1 MG/DL Sodium Level 147 MEQ/L Potassium Level 3.7 MEQ/L Chloride Level 106 MEQ/L Carbon Dioxide Level 34.2 MEQ/L Anion Gap 7 MEQ/L Estimat Glomerular Filtration Rate 23 ML/MIN Imaging Last Impressions Chest CT 11/26/17 0000 Signed Impressions: Service Date/Time: Sunday, November 26, 2017 17:16 - CONCLUSION: 1. Improvement in bilateral lung consolidation since November 15. Interval development of small bilateral effusions, right greater than left. Sachin Gonzalez MD Abdomen/Pelvis CT 11/26/17 0000 Signed Impressions: Service Date/Time: Sunday, November 26, 2017 17:16 - CONCLUSION: Very limited exam because of arms and body habitus. I don't see abscess or free air. Double-J stent on the right. Joseph Baeza MD FACR Chest X-Ray 11/24/17 0000 Signed Impressions: Service Date/Time: Friday, November 24, 2017 03:36 - CONCLUSION: 1. Improved right lung consolidation. Persistent consolidation left base. Interval extubation. Sachin Gonzalez MD Abdomen X-Ray 11/17/17 0000 Signed Impressions: Service Date/Time: Friday, November 17, 2017 19:04 - CONCLUSION: The proximal tip of the double-J stent is either in the expected region of the right renal pelvis or proximal ureter. Allen Mensah MD Head CT 11/15/17 1134 Signed Impressions: Service Date/Time: November 14:13 - CONCLUSION: 1. No acute hemorrhage or mass effect. 2. Atrophy and chronic small vessel ischemic change 3. Air-fluid levels in the maxillary sinuses most characteristic of acute sinusitis. Chintan Marshall MD Objective Remarks GENERAL: This is a super morbidly obese female 67 yo lying in bed in NAD SKIN: Warm and dry. HEAD: Normocephalic. EYES: No scleral icterus. No injection or drainage. NECK: trachea midline. JVD unable to be assessed due to body habitus. CARDIOVASCULAR: Tachycardic rate, irregularly irregular rhythm. afib by tele. RESPIRATORY: Breath sounds equal bilaterally. No accessory muscle use. 2L nc. GASTROINTESTINAL: Abdomen soft, protuberant, non-tender, nondistended. MUSCULOSKELETAL: No cyanosis, + edema. Neuro: Lethargic at times A/P Assessment and Plan Assessment: 67yF with super morbid obesity who was originally admitted with obstructive uropathy, GNR septic shock, acute hypoxic respiratory failure, multiorgan failure. clinically improving. Neuro: Metabolic Encephalopathy - improved Chronic Pain - Awake and alert - Lortab 5/325 mg PRN Resp: Acute hypoxic and hypercarbic respiratory failure- Extubated 11/22 Healthcare Associated Pneumonia Continue with oxygen keep sat >92% Bronchodilators, IS, NIPPV PRN for resp distress - sputum culture: MRSA CT chest 11/26: Improvement in bilateral lung consolidation since November 15. small bilateral effusions, right greater than left. CV: s/p Septic Shock - Atrial fibrillation with rapid ventricular response - Monitor HR and BP keep MAP>65mmHg. On diltiazem 60mg po q6h Renal: Acute Kidney Injury - resolving. Acute pyelonephritis Metabolic alkalosis secondary to intravascular volume contraction Monitor renal function, I/O's, avoid nephrotoxins On Lasix 40mg BID Cr: 2.17, UOP: 1950ml in 24 hrs - s/p Emergent cysto with stent 2/, Urology is following Renal is following- Dr. Lopez FEN/GI: Super Morbid Obesity Lactic Acidosis- cleared Anion-gap Metabolic acidosis- resolved. Acute intravascular volume overload Severe acute protein calorie malnutrition -Pured diet, poor oral intake -Pepcid for GI prophylaxis -CT abdomen/pelvis: No abscess or free air d/c rectal tube. Heme/ID: History of prior MRSA pneumonia Acute pyelonephritis Pseudomonas bacteremia Positive C-diff - ID on board. - Abx per Nemzeeshan. On Zyvox, Zerbaxa, PO Vanco, Diflucan. Monitor for signs of infections ( Fever, WBC) WBC is trending down -11/25 urine cx : C. Albicans -11/20 BC :NGTD -11/17 BC: Coag negative staph 10/18 bottles..likely contaminant - 11/17 Urine cx :Pseudomonas - 2/1 blood cultures: pseudomonas - 2/1 urine culture: pseudomonas - 2/1 sputum culture: MRSA Endocrine: Hyperglycemia of Critical Illness- resolved. Musculoskeletal: -PT/OT evaluate and treat Prophylaxis: SCDs, SQH Pepcid Lines: -peripheral IV's PT/OT eval and treat Level 2 Juma Pak MD Dec 01, 2017 07:33
[2017-12-01] MEDS: CHLORHEXIDINE 0.12% (ORAL KIT) 15 ML CUP MT SCH ×2 (08:00→20:00)
[2017-12-01] MEDS: VANCOMYCIN 25 MG/ML SUSP 100 ML BOTTLE PO SCH ×4 (09:00→22:23)
[2017-12-01] MEDS: METOPROLOL TARTRATE 25 MG TAB PO SCH ×2 (09:26→22:23)
[2017-12-01] MEDS: DOCUSATE SODIUM 50 MG/SENNA 8.6 MG TAB PO SCH ×2 (09:26→21:00)
[2017-12-01] MEDS: FAMOTIDINE 20 MG/2 ML VIAL IV PUSH SCH ×2 (09:26→22:23)
[2017-12-01] MEDS: FUROSEMIDE 40 MG/4 ML VIAL IV PUSH SCH ×2 (09:26→18:00)
[2017-12-01] MEDS: FLUCONAZOLE 100 MG TAB PO SCH (09:26)
--- NOTE | 2017-12-01 12:29 | HHI.NPPN ---
Subjective General Problems: Edema Renal Failure: Acute Review of Systems Respiratory Lungs: SOB Cardiovascular Cardiac: Edema Objective Data Data Vital Signs Date Time Temp Pulse Resp B/P (MAP) Pulse Ox O2 Delivery O2 Flow Rate FiO2 12/01/17 08:44 98 Nasal Cannula 2.00 12/01/17 08:00 98.8 104 18 115/62 (79) 98 12/01/17 08:00 94 12/01/17 06:00 94 12/01/17 04:00 96 12/01/17 04:00 98.0 96 17 128/62 (84) 98 12/01/17 02:00 89 12/01/17 00:00 97.7 94 18 113/59 (77) 98 12/01/17 00:00 94 11/30/17 22:00 94 11/30/17 20:00 115 11/30/17 20:00 97.4 115 17 87/53 (64) 98 11/30/17 20:00 Nasal Cannula 2.00 11/30/17 18:00 115 19 133/59 (83) 97 11/30/17 18:00 115 11/30/17 17:00 115 11/30/17 17:00 115 20 127/63 (84) 97 11/30/17 16:00 98.8 125 22 138/63 (88) 95 11/30/17 16:00 125 -: 12/01/17 0527 12/01/17 0527 Tubes & Lines: Sol[employer] Tubes & Lines Comment TLC right IJ Physical Exam General Appearance: Well Nourished, No Acute Distress, Comfortable, Sleeping, Obese Eyes Eye Exam: Pupils Equal Throat Throat Exam: Oral Mucosa Mcfar[place] & Moist Neck Neck Exam: Neck Supple Pulmonary Resp Exam: Breath Sounds Equal, No Distress, Crackles Cardiology CV Exam: Regular, Good Perfusion, Tachycardia Gastrointestinal/Abdomen GI Exam: Soft, Non-Tender, Bowel Sounds Present Musculoskeletal MS Exam: Joints Intact, Normal Tone, Unable to Ambulate Integumentary Skin Exam: Warm, Dry Extremeties Extremities Exam: Moderate Edema, Pitting Edema, Dependent Edema Neurologic Neuro Exam: Alert, Awake, Oriented, Speech Clear Psychiatric Psych Exam: Appropriate Responses Assessment/Plan Discussed Condition With: Patient Assessment Summary: FREDDY/Acute Renal Failure, Fluid/Volume Overload, Hypotension Electrolyte Assessment: Hypokalemia Problem List: (1) FREDDY (acute kidney injury) ICD Codes: N17.9 - Acute kidney failure, unspecified Plan: In January 2017 her renal function was normal. Had FREDDY in September, creatinine at discharge was 1.8 Obstructive uropathy, s/p R ureteral stent placement on the 16 of November. FREDDY also due to urosepsis with renal hyperperfusion Renal function improving slowly Continue diuresis. On Lasix 40 BID IV. K replacement orally if needed. Monitor chemistry panel. Avoid nephrotoxic agents. Has UTI (dez) on Diflucan. Patient continued diuresed well well with Lasix Creatinine slightly elevated at 2.17 Continue to monitor (2) Tachycardia ICD Codes: R00.0 - Tachycardia, unspecified Plan: on Cardizem. Start PO Lopressor. (3) Pneumonia ICD Codes: J18.9 - Pneumonia, unspecified organism Status: Acute Plan: ID following, on Zerbaxa and Zyvox. (4) Septic shock ICD Codes: A41.9 - Sepsis, unspecified organism; R65.21 - Severe sepsis with septic shock Plan: Pseudomonas sepsis Also po Diflucan for candiduria Continue supportive care (5) Respiratory failure ICD Codes: J96.90 - Respiratory failure, unspecified, unspecified whether with hypoxia or hypercapnia Plan: Successfully extubated Monitor respiratory status Lisandra Thao MD Dec 01, 2017 12:29
[2017-12-01] MEDS: ACETAMINOPHEN/HYDROcodone 325 MG/5 MG TAB PO PRN (14:54)
[2017-12-02] VITALS (13 sets, daily range): BP systolic 90–120; BP diastolic 43–70; PULSE 83–101; RESP 18–19; TEMP 97.8–98.6; O2SAT 93–100
[2017-12-02] MEDS: CHLORHEXIDINE GLUCONATE 2 % 1 PACK (2 CLOTHS) TOP SCH (04:00)
[2017-12-02] MEDS: NYSTATIN 100,000 UNIT/GM CREAM 15 GM TOPICAL SCH ×4 (05:17→18:12)
[2017-12-02] MEDS: CEFTOLOZANE-TAZOBACTAM INJ 1,500 MG in SODIUM CHLORIDE 0.9% INJ 100 ML IV SCH ×3 (05:18→18:25)
[2017-12-02] MEDS: DILTIAZEM HCL 60 MG TAB PO SCH ×3 (05:18→18:11)
[2017-12-02] MEDS: HEPARIN SODIUM - SQ 10,000 UNITS/ML VIAL SQ SCH (05:19)
[2017-12-02] MEDS: LINEZOLID 600 MG PREMIX 300 ML IV SCH ×2 (05:19→18:12)
[2017-12-02 05:52] LABS: AUTOMATED NEUTROPHIL # 6.5 TH/MM3 (1.8-7.7); BASOPHIL % 0.4 % (0.0-2.0); EOSINOPHIL # 0.2 TH/MM3 (0-0.4); EOSINOPHIL % 2.4 % (0.0-4.0); HEMATOCRIT 27.8 % (35.0-46.0); HEMOGLOBIN 8.7 GM/DL (11.6-15.3); LYMPH % 9.9 % (9.0-44.0); LYMPHOCYTE # 0.8 TH/MM3 (1.0-4.8); MEAN CELL VOLUME 90.4 FL (80.0-100.0); MEAN CORPUSCULAR HEMOGLOBIN 28.4 PG (27.0-34.0); MEAN CORPUSCULAR HGB CONC 31.4 % (32.0-36.0); MEAN PLATELET VOLUME 8.8 FL (7.0-11.0); MONO % 7.3 % (0.0-8.0); MONOCYTE # 0.6 TH/MM3 (0-0.9); PLATELET COUNT 87 TH/MM3 (150-450); RED BLOOD COUNT 3.08 MIL/MM3 (4.00-5.30); RED CELL DISTRIBUTION WIDTH 20.9 % (11.6-17.2); WHITE BLOOD COUNT 8.1 TH/MM3 (4.0-11.0)
[2017-12-02 06:19] LABS: BICARBONATE 30.7 MEQ/L (21.0-32.0); CALCIUM 8.7 MG/DL (8.5-10.1); CREATININE 2.11 MG/DL (0.50-1.00)
--- NOTE | 2017-12-02 07:30 | HHI.CCPN ---
Subjective Remarks/Hospital Course Hospital Course: 67yF with super morbid obesity who has had multiple prior admissions for MRSA pneumonia and respiratory failure presents by EMS for recurrent respiratory failure. She resides in a SNF. She was found unresponsive this morning. She was intubated in the field. In the emergency department she was hypotensive despite ivf resuscitation and required norepinephrine for vasopressor support. she has a wbc 52k, lactate of 6.9, Cr 2.87 (baseline 0.5, prior admission discharge was 1.8). u/a concerning for probable UTI as well. Subjective: 2: remained unstable throughout the night overnight. on 3 vasopressors. this morning, no better, wbc higher. decision by Dr. Cartagena and myself to emergently CT abd/pelvis to rule out source control, despite ongoing hemodynamic instability. CT abd/pelvis demonstrated right hydronephrosis with likely obstructive pyelonephritis. discussed with urology and interventional radiology : likely to decompensate during procedure. unable to physically prone patient. difficult technically with high risk to do supine lateral CT guided perc nephrostomy tube. urology to take to the OR for cysto with stenting. Prior to leaving for OR, patient's central line was pulled accidentally. patient had no other iv access. I/O needles unavailable. emergently replaced central line in right IJ (see separate procedure note for details). due to ongoing shock, patient's blood pressure in 40s systolic during this time. restarted vasopressors after central access regained. went to OR. cultures growing pseudomonas. 2: minimal improvements. taken to OR yesterday for cysto. minimal uop overnight. off epinephrine but remains on 2 vasopressors, in shock. wbc downtrending but > 50k. 11/18: vasopressor requirements are improving slightly. remains on 2 vasopressors and in shock. blood and urine growing pseudomonas, sputum growing MRSA (history of MRSA pneumonia). wbc downtrending, but remains very high. uop marginal. 11/19 Patient remains sedated and intubated. On Levophed 2 mics, Vasopressin 0.04 mics. WBC is trending down. 11/20 Patient remains intubated and on Precedex for sedation. Remains on Vasopressin and Levophed 8 mics. Afebrile. 11/21 No events overnight. Off pressors and off Precedex. Awake, alert tolerated CPAP for several hrs yesterday 11/22 Patient is awake and alert tolerated CPAP yesterday. Off sedation. Placed on Lasix drip 20mg/hr per renal. Afebrile. 11/23 Patient s/p extubation yesterday on 2L oxygen with good sats. Awake and alert. 11/24: No acute events overnight. Lortab 5/325 mg PRN for pain added to medication regimen. 11/25: Afebrile. Patient resting comfortably, no acute events overnight. Patient awake and responsive. Patient noted to have a poor appetite with pureed diet supplementation with boost supplementation with every meal added. 11/26 No events overnight. On Lasix 10mg/hr. Awake and alert. Afebrile. 11/27 Patient is on 2L oxygen, on Lasix drip 10mg/hr,BP borderline low this morning 11/28: remains on 2L o2 by NC. on BID lasix dosing. blood pressure stable. tachycardia remains, but does not appear to be secondary to volume depletion. 11/29: still doing well. on nc o2. diuresing well. tachycardia improved overnight with Lopressor: will schedule diltiazem for AVN blockade. more alkalotic as well. tolerating diet. needs aggressive PT. 11/30 No events overnight. On 2L oxygen. Afebrile, 12/01 Patient is lying in bed in NAD. On 2L oxygen. Afebrile. 12/02 No events overnight. On 2L oxygen. Cr: 2.1 this morning with UOP: 1950 ml in 24 hrs Objective Vital Signs Date Time Temp Pulse Resp B/P (MAP) Pulse Ox O2 Delivery O2 Flow Rate FiO2 12/02/17 06:00 91 12/02/17 04:00 98.1 18 108/70 (83) 100 12/01/17 20:24 Nasal Cannula 2.00 Result Diagram: 12/02/17 0425 12/02/17 0425 Other Results Laboratory Tests Test 12/02/17 04:25 White Blood Count 8.1 TH/MM3 Red Blood Count 3.08 MIL/MM3 Hemoglobin 8.7 GM/DL Hematocrit 27.8 % Mean Corpuscular Volume 90.4 FL Mean Corpuscular Hemoglobin 28.4 PG Mean Corpuscular Hemoglobin Concent 31.4 % Red Cell Distribution Width 20.9 % Platelet Count 87 TH/MM3 Mean Platelet Volume 8.8 FL Neutrophils (%) (Auto) 80.0 % Lymphocytes (%) (Auto) 9.9 % Monocytes (%) (Auto) 7.3 % Eosinophils (%) (Auto) 2.4 % Basophils (%) (Auto) 0.4 % Neutrophils # (Auto) 6.5 TH/MM3 Lymphocytes # (Auto) 0.8 TH/MM3 Monocytes # (Auto) 0.6 TH/MM3 Eosinophils # (Auto) 0.2 TH/MM3 Basophils # (Auto) 0.0 TH/MM3 CBC Comment AUTO DIFF Blood Urea Nitrogen 46 MG/DL Creatinine 2.11 MG/DL Random Glucose 82 MG/DL Calcium Level 8.7 MG/DL Sodium Level 145 MEQ/L Potassium Level 3.8 MEQ/L Chloride Level 105 MEQ/L Carbon Dioxide Level 30.7 MEQ/L Anion Gap 9 MEQ/L Estimat Glomerular Filtration Rate 23 ML/MIN Imaging Last Impressions Chest CT 11/26/17 0000 Signed Impressions: Service Date/Time: Sunday, November 26, 2017 17:16 - CONCLUSION: 1. Improvement in bilateral lung consolidation since November 15. Interval development of small bilateral effusions, right greater than left. Sachin Gonzalez MD Abdomen/Pelvis CT 11/26/17 0000 Signed Impressions: Service Date/Time: Sunday, November 26, 2017 17:16 - CONCLUSION: Very limited exam because of arms and body habitus. I don't see abscess or free air. Double-J stent on the right. Joseph Baeza MD FACR Chest X-Ray 11/24/17 0000 Signed Impressions: Service Date/Time: Friday, November 24, 2017 03:36 - CONCLUSION: 1. Improved right lung consolidation. Persistent consolidation left base. Interval extubation. Sachin Gonzalez MD Abdomen X-Ray 11/17/17 0000 Signed Impressions: Service Date/Time: Friday, November 17, 2017 19:04 - CONCLUSION: The proximal tip of the double-J stent is either in the expected region of the right renal pelvis or proximal ureter. Allen Mensah MD Head CT 11/15/17 1134 Signed Impressions: Service Date/Time: November 14:13 - CONCLUSION: 1. No acute hemorrhage or mass effect. 2. Atrophy and chronic small vessel ischemic change 3. Air-fluid levels in the maxillary sinuses most characteristic of acute sinusitis. Chintan Marshall MD Objective Remarks GENERAL: This is a super morbidly obese female 67 yo lying in bed in NAD SKIN: Warm and dry. HEAD: Normocephalic. EYES: No scleral icterus. No injection or drainage. NECK: trachea midline. JVD unable to be assessed due to body habitus. CARDIOVASCULAR: Tachycardic rate, irregularly irregular rhythm. afib by tele. RESPIRATORY: Breath sounds equal bilaterally. No accessory muscle use. 2L nc. GASTROINTESTINAL: Abdomen soft, protuberant, non-tender, nondistended. MUSCULOSKELETAL: No cyanosis, + edema. Neuro: Lethargic at times A/P Assessment and Plan Assessment: 67yF with super morbid obesity who was originally admitted with obstructive uropathy, GNR septic shock, acute hypoxic respiratory failure, multiorgan failure. clinically improving. Neuro: Metabolic Encephalopathy - improved Chronic Pain - Awake and alert - Lortab 5/325 mg PRN Resp: Acute hypoxic and hypercarbic respiratory failure- Extubated 11/22 Healthcare Associated Pneumonia Continue with oxygen keep sat >92% Bronchodilators, IS, NIPPV PRN for resp distress - sputum culture: MRSA CT chest 11/26: Improvement in bilateral lung consolidation since November 15. small bilateral effusions, right greater than left. CV: s/p Septic Shock - Atrial fibrillation with rapid ventricular response - Monitor HR and BP keep MAP>65mmHg. On diltiazem 60mg po q6h Renal: Acute Kidney Injury - resolving. Acute pyelonephritis Metabolic alkalosis secondary to intravascular volume contraction Monitor renal function, I/O's, avoid nephrotoxins On Lasix 40mg BID Cr: 2.1, UOP: 1950ml in 24 hrs - s/p Emergent cysto with stent 11/16, Urology is following Renal is following- Dr. Lopez FEN/GI: Super Morbid Obesity Lactic Acidosis- cleared Anion-gap Metabolic acidosis- resolved. Acute intravascular volume overload Severe acute protein calorie malnutrition -Pured diet, poor oral intake -Pepcid for GI prophylaxis -CT abdomen/pelvis: No abscess or free air ID: History of prior MRSA pneumonia Acute pyelonephritis Pseudomonas bacteremia Positive C-diff - ID on board. - Abx per Mitzi. On Zyvox, Zerbaxa, PO Vanco, Diflucan. Monitor for signs of infections ( Fever, WBC) WBC is trending down -11/25 urine cx : C. Albicans -11/20 BC :NGTD -11/17 BC: Coag negative staph 10/18 bottles..likely contaminant - 11/17 Urine cx :Pseudomonas - 11/15 blood cultures: pseudomonas - 2 urine culture: pseudomonas - 2 sputum culture: MRSA Endocrine: SSI if needed for glycemic control Heme: Monitor CBC, check Hep PLT ab r/o HIT Musculoskeletal: -PT/OT evaluate and treat Prophylaxis: SCDs, Hold SQH, check Hep PLT ab r/o HIT Pepcid Lines: -peripheral IV's PT/OT eval and treat Level 2 Juma Pak MD Dec 02, 2017 07:30
[2017-12-02] MEDS: FLUCONAZOLE 100 MG TAB PO SCH (08:40)
[2017-12-02] MEDS: ACETAMINOPHEN/HYDROcodone 325 MG/5 MG TAB PO PRN ×3 (08:40→18:11)
[2017-12-02] MEDS: METOPROLOL TARTRATE 25 MG TAB PO SCH ×2 (08:40→21:00)
[2017-12-02] MEDS: FAMOTIDINE 20 MG/2 ML VIAL IV PUSH SCH (08:40)
[2017-12-02] MEDS: FUROSEMIDE 40 MG/4 ML VIAL IV PUSH SCH ×2 (08:41→18:11)
[2017-12-02] MEDS: DOCUSATE SODIUM 50 MG/SENNA 8.6 MG TAB PO SCH ×2 (08:51→21:00)
[2017-12-02] MEDS: VANCOMYCIN 25 MG/ML SUSP 100 ML BOTTLE PO SCH ×4 (09:00→21:00)
--- NOTE | 2017-12-02 12:03 | HHI.NPPN ---
Subjective General Problems: Edema Renal Failure: Acute Review of Systems Respiratory Lungs: SOB Cardiovascular Cardiac: Edema Objective Data Data Vital Signs Date Time Temp Pulse Resp B/P (MAP) Pulse Ox O2 Delivery O2 Flow Rate FiO2 12/02/17 08:49 100 Nasal Cannula 2.00 12/02/17 08:00 91 12/02/17 06:00 91 12/02/17 04:00 89 12/02/17 04:00 98.1 89 18 108/70 (83) 100 12/02/17 02:00 83 12/02/17 00:00 88 12/02/17 00:00 88 12/02/17 00:00 97.8 88 19 120/60 (80) 99 12/01/17 22:00 103 12/01/17 20:24 95 Nasal Cannula 2.00 12/01/17 20:00 107 12/01/17 20:00 98.1 108 17 132/77 (95) 97 12/01/17 18:00 94 12/01/17 16:00 98.8 95 18 113/59 (77) 98 12/01/17 16:00 94 12/01/17 14:00 94 12/01/17 14:00 98.8 95 18 119/75 (90) 98 12/01/17 12:00 94 -: 12/02/17 0425 12/02/17 0425 Tubes & Lines: [employer] Tubes & Lines Comment TLC right IJ Physical Exam General Appearance: Well Nourished, No Acute Distress, Comfortable, Sleeping, Obese Eyes Eye Exam: Pupils Equal Throat Throat Exam: Oral Mucosa [place] & Moist Neck Neck Exam: Neck Supple Pulmonary Resp Exam: Breath Sounds Equal, No Distress, Crackles Cardiology CV Exam: Regular, Good Perfusion, Tachycardia Gastrointestinal/Abdomen GI Exam: Soft, Non-Tender, Bowel Sounds Present Musculoskeletal MS Exam: Joints Intact, Normal Tone, Unable to Ambulate Integumentary Skin Exam: Warm, Dry Extremeties Extremities Exam: Moderate Edema, Pitting Edema, Dependent Edema Neurologic Neuro Exam: Alert, Awake, Oriented, Speech Clear Psychiatric Psych Exam: Appropriate Responses Assessment/Plan Discussed Condition With: Patient Assessment Summary: FREDDY/Acute Renal Failure, Fluid/Volume Overload, Hypotension Electrolyte Assessment: Hypokalemia Problem List: (1) FREDDY (acute kidney injury) ICD Codes: N17.9 - Acute kidney failure, unspecified Plan: In January 2017 her renal function was normal. Had FREDDY in September, creatinine at discharge was 1.8 Obstructive uropathy, s/p R ureteral stent placement on the 16 of November. FREDDY also due to urosepsis with renal hyperperfusion Renal function improving slowly Continue diuresis. On Lasix 40 BID IV. K replacement orally if needed. Monitor chemistry panel. Avoid nephrotoxic agents. Has UTI (dez) on Diflucan. Patient continued diuresed well with Lasix Creatinine slightly elevated at 2.[address] Lopez to follow (2) Tachycardia ICD Codes: R00.0 - Tachycardia, unspecified Plan: on Cardizem. Start PO Lopressor. (3) Pneumonia ICD Codes: J18.9 - Pneumonia, unspecified organism Status: Acute Plan: ID following, on Zerbaxa and Zyvox. (4) Septic shock ICD Codes: A41.9 - Sepsis, unspecified organism; R65.21 - Severe sepsis with septic shock Plan: Pseudomonas sepsis Also po Diflucan for candiduria Continue supportive care (5) Respiratory failure ICD Codes: J96.90 - Respiratory failure, unspecified, unspecified whether with hypoxia or hypercapnia Plan: Successfully extubated Monitor respiratory status Lisandra Thao MD Dec 02, 2017 12:03
[2017-12-02] MEDS: CHLORHEXIDINE 0.12% (ORAL KIT) 15 ML CUP MT SCH (20:00)
[2017-12-03] VITALS (10 sets, daily range): BP systolic 98–126; BP diastolic 49–70; PULSE 97–112; RESP 17–21; TEMP 97.5–99.1; O2SAT 91–100
[2017-12-03] MEDS: CEFTOLOZANE-TAZOBACTAM INJ 1,500 MG in SODIUM CHLORIDE 0.9% INJ 100 ML IV SCH (03:00)
[2017-12-03] MEDS: CHLORHEXIDINE GLUCONATE 2 % 1 PACK (2 CLOTHS) TOP SCH ×2 (04:00→20:53)
[2017-12-03] MEDS: FAMOTIDINE 20 MG/2 ML VIAL IV PUSH SCH ×3 (04:14→20:07)
[2017-12-03] MEDS: DILTIAZEM HCL 60 MG TAB PO SCH ×4 (05:20→23:46)
[2017-12-03] MEDS: NYSTATIN 100,000 UNIT/GM CREAM 15 GM TOPICAL SCH ×5 (05:20→23:46)
[2017-12-03] MEDS: LINEZOLID 600 MG PREMIX 300 ML IV SCH (07:00)
[2017-12-03 07:38] LABS: AUTOMATED NEUTROPHIL # 7.4 TH/MM3 (1.8-7.7); BASOPHIL # 0.1 TH/MM3 (0-0.2); BASOPHIL % 0.6 % (0.0-2.0); EOSINOPHIL # 0.2 TH/MM3 (0-0.4); EOSINOPHIL % 2.5 % (0.0-4.0); HEMATOCRIT 26.6 % (35.0-46.0); HEMOGLOBIN 8.6 GM/DL (11.6-15.3); MEAN CELL VOLUME 89.3 FL (80.0-100.0); MEAN CORPUSCULAR HEMOGLOBIN 28.8 PG (27.0-34.0); MEAN CORPUSCULAR HGB CONC 32.3 % (32.0-36.0); MEAN PLATELET VOLUME 8.3 FL (7.0-11.0); MONOCYTE # 0.7 TH/MM3 (0-0.9); NEUT % 78.9 % (16.0-70.0); PLATELET COUNT 78 TH/MM3 (150-450); RED BLOOD COUNT 2.98 MIL/MM3 (4.00-5.30); RED CELL DISTRIBUTION WIDTH 20.5 % (11.6-17.2); WHITE BLOOD COUNT 9.4 TH/MM3 (4.0-11.0)
[2017-12-03] MEDS: CHLORHEXIDINE 0.12% (ORAL KIT) 15 ML CUP MT SCH ×2 (08:00→20:00)
--- NOTE | 2017-12-03 08:00 | HHI.CCPN ---
Subjective Remarks/Hospital Course Hospital Course: 67yF with super morbid obesity who has had multiple prior admissions for MRSA pneumonia and respiratory failure presents by EMS for recurrent respiratory failure. She resides in a SNF. She was found unresponsive this morning. She was intubated in the field. In the emergency department she was hypotensive despite ivf resuscitation and required norepinephrine for vasopressor support. she has a wbc 52k, lactate of 6.9, Cr 2.87 (baseline 0.5, prior admission discharge was 1.8). u/a concerning for probable UTI as well. Subjective: 2: remained unstable throughout the night overnight. on 3 vasopressors. this morning, no better, wbc higher. decision by Dr. Cartagena and myself to emergently CT abd/pelvis to rule out source control, despite ongoing hemodynamic instability. CT abd/pelvis demonstrated right hydronephrosis with likely obstructive pyelonephritis. discussed with urology and interventional radiology : likely to decompensate during procedure. unable to physically prone patient. difficult technically with high risk to do supine lateral CT guided perc nephrostomy tube. urology to take to the OR for cysto with stenting. Prior to leaving for OR, patient's central line was pulled accidentally. patient had no other iv access. I/O needles unavailable. emergently replaced central line in right IJ (see separate procedure note for details). due to ongoing shock, patient's blood pressure in 40s systolic during this time. restarted vasopressors after central access regained. went to OR. cultures growing pseudomonas. 2: minimal improvements. taken to OR yesterday for cysto. minimal uop overnight. off epinephrine but remains on 2 vasopressors, in shock. wbc downtrending but > 50k. 11/18: vasopressor requirements are improving slightly. remains on 2 vasopressors and in shock. blood and urine growing pseudomonas, sputum growing MRSA (history of MRSA pneumonia). wbc downtrending, but remains very high. uop marginal. 11/19 Patient remains sedated and intubated. On Levophed 2 mics, Vasopressin 0.04 mics. WBC is trending down. 11/20 Patient remains intubated and on Precedex for sedation. Remains on Vasopressin and Levophed 8 mics. Afebrile. 11/21 No events overnight. Off pressors and off Precedex. Awake, alert tolerated CPAP for several hrs yesterday 11/22 Patient is awake and alert tolerated CPAP yesterday. Off sedation. Placed on Lasix drip 20mg/hr per renal. Afebrile. 11/23 Patient s/p extubation yesterday on 2L oxygen with good sats. Awake and alert. 11/24: No acute events overnight. Lortab 5/325 mg PRN for pain added to medication regimen. 11/25: Afebrile. Patient resting comfortably, no acute events overnight. Patient awake and responsive. Patient noted to have a poor appetite with pureed diet supplementation with boost supplementation with every meal added. 11/26 No events overnight. On Lasix 10mg/hr. Awake and alert. Afebrile. 11/27 Patient is on 2L oxygen, on Lasix drip 10mg/hr,BP borderline low this morning 11/28: remains on 2L o2 by NC. on BID lasix dosing. blood pressure stable. tachycardia remains, but does not appear to be secondary to volume depletion. 11/29: still doing well. on nc o2. diuresing well. tachycardia improved overnight with Lopressor: will schedule diltiazem for AVN blockade. more alkalotic as well. tolerating diet. needs aggressive PT. 11/30 No events overnight. On 2L oxygen. Afebrile, 12/01 Patient is lying in bed in NAD. On 2L oxygen. Afebrile. 12/02 No events overnight. On 2L oxygen. Cr: 2.1 this morning with UOP: 1950 ml in 24 hrs 12/03 Patient is lying in bed in NAD. Afebrile. Objective Vital Signs Date Time Temp Pulse Resp B/P (MAP) Pulse Ox O2 Delivery O2 Flow Rate FiO2 12/03/17 07:19 100 Nasal Cannula 2.00 12/03/17 06:00 107 12/03/17 04:00 98.6 20 105/70 (82) Intake and Output 12/03/17 12/03/17 12/04/17 08:00 16:00 00:00 Output Total 850 ml Balance -850 ml Result Diagram: 12/03/17 0720 12/02/17 0425 Other Results Laboratory Tests Test 12/02/17 09:50 12/03/17 07:20 White Blood Count 9.4 TH/MM3 Red Blood Count 2.98 MIL/MM3 Hemoglobin 8.6 GM/DL Hematocrit 26.6 % Mean Corpuscular Volume 89.3 FL Mean Corpuscular Hemoglobin 28.8 PG Mean Corpuscular Hemoglobin Concent 32.3 % Red Cell Distribution Width 20.5 % Platelet Count 78 TH/MM3 Mean Platelet Volume 8.3 FL Neutrophils (%) (Auto) 78.9 % Lymphocytes (%) (Auto) 11.0 % Monocytes (%) (Auto) 7.0 % Eosinophils (%) (Auto) 2.5 % Basophils (%) (Auto) 0.6 % Neutrophils # (Auto) 7.4 TH/MM3 Lymphocytes # (Auto) 1.0 TH/MM3 Monocytes # (Auto) 0.7 TH/MM3 Eosinophils # (Auto) 0.2 TH/MM3 Basophils # (Auto) 0.1 TH/MM3 CBC Comment AUTO DIFF Imaging Last Impressions Chest CT 11/26/17 0000 Signed Impressions: Service Date/Time: Sunday, November 26, 2017 17:16 - CONCLUSION: 1. Improvement in bilateral lung consolidation since November 15. Interval development of small bilateral effusions, right greater than left. Sachin Gonzalez MD Abdomen/Pelvis CT 11/26/17 0000 Signed Impressions: Service Date/Time: Sunday, November 26, 2017 17:16 - CONCLUSION: Very limited exam because of arms and body habitus. I don't see abscess or free air. Double-J stent on the right. Joesph Baeza MD FACR Chest X-Ray 11/24/17 0000 Signed Impressions: Service Date/Time: Friday, November 24, 2017 03:36 - CONCLUSION: 1. Improved right lung consolidation. Persistent consolidation left base. Interval extubation. Sachin Gonzalez MD Abdomen X-Ray 11/17/17 0000 Signed Impressions: Service Date/Time: Friday, November 17, 2017 19:04 - CONCLUSION: The proximal tip of the double-J stent is either in the expected region of the right renal pelvis or proximal ureter. Allen Mensah MD Head CT 11/15/17 1134 Signed Impressions: Service Date/Time: November 14:13 - CONCLUSION: 1. No acute hemorrhage or mass effect. 2. Atrophy and chronic small vessel ischemic change 3. Air-fluid levels in the maxillary sinuses most characteristic of acute sinusitis. Chintan Marshall MD Objective Remarks GENERAL: Patient is morbidly obese female 67 yo lying in bed in NAD SKIN: Warm and dry. HEAD: Normocephalic. EYES: No scleral icterus. No injection or drainage. NECK: trachea midline. JVD unable to be assessed due to body habitus. CARDIOVASCULAR: Tachycardic rate, irregularly irregular rhythm. afib by tele. RESPIRATORY: Breath sounds equal bilaterally. No accessory muscle use. 2L nc. GASTROINTESTINAL: Abdomen soft, protuberant, non-tender, nondistended. MUSCULOSKELETAL: No cyanosis, + edema. Neuro: Lethargic at times A/P Assessment and Plan Assessment: 67yF with super morbid obesity who was originally admitted with obstructive uropathy, GNR septic shock, acute hypoxic respiratory failure, multiorgan failure. clinically improving. Neuro: Metabolic Encephalopathy - improved Chronic Pain - Awake and alert - Lortab 5/325 mg PRN Resp: Acute hypoxic and hypercarbic respiratory failure- Extubated 11/22 Healthcare Associated Pneumonia Continue with oxygen keep sat >92% Bronchodilators, IS, NIPPV PRN for resp distress - sputum culture: MRSA CT chest 11/26: Improvement in bilateral lung consolidation since November 15. small bilateral effusions, right greater than left. CV: s/p Septic Shock - Atrial fibrillation with rapid ventricular response - Monitor HR and BP keep MAP>65mmHg. On diltiazem 60mg po q6h Renal: Acute Kidney Injury - resolving. Acute pyelonephritis Metabolic alkalosis secondary to intravascular volume contraction Monitor renal function, I/O's, avoid nephrotoxins On Lasix 40mg BID, follow up on BMP Cr: 2.0, UOP: 1650ml in 24 hrs - s/p Emergent cysto with stent 11/16, Urology is following Renal is following- Dr. Lopez FEN/GI: Super Morbid Obesity Lactic Acidosis- cleared Anion-gap Metabolic acidosis- resolved. Acute intravascular volume overload Severe acute protein calorie malnutrition -Pured diet, poor oral intake -Pepcid for GI prophylaxis -CT abdomen/pelvis: No abscess or free air ID: History of prior MRSA pneumonia Acute pyelonephritis Pseudomonas bacteremia Positive C-diff - ID on board. - Abx per Mitzi. On Zyvox, Zerbaxa, PO Vanco, Diflucan. Monitor for signs of infections ( Fever, WBC) WBC is trending down -11/25 urine cx : C. Albicans -11/20 BC :NGTD -11/17 BC: Coag negative staph 10/18 bottles..likely contaminant - 11/17 Urine cx :Pseudomonas - 11/15 blood cultures: pseudomonas - 2 urine culture: pseudomonas - 2/ sputum culture: MRSA Endocrine: SSI if needed for glycemic control Heme: Monitor CBC, follow up on Hep PLT ab r/o HIT Musculoskeletal: -PT/OT evaluate and treat Prophylaxis: SCDs, SQH held for thrombocytopenia, follow up on Hep PLT ab r/o HIT Pepcid Lines: -peripheral IV's PT/OT eval and treat Level 2 Juma Pak MD Dec 03, 2017 08:00
[2017-12-03 08:03] LABS: BICARBONATE 32.5 MEQ/L (21.0-32.0); CALCIUM 8.7 MG/DL (8.5-10.1); CREATININE 2.02 MG/DL (0.50-1.00)
[2017-12-03] MEDS: FUROSEMIDE 40 MG/4 ML VIAL IV PUSH SCH ×2 (09:00→17:36)
[2017-12-03] MEDS: DOCUSATE SODIUM 50 MG/SENNA 8.6 MG TAB PO SCH ×2 (09:00→20:07)
[2017-12-03] MEDS: METOPROLOL TARTRATE 25 MG TAB PO SCH ×2 (09:00→20:07)
[2017-12-03] MEDS: VANCOMYCIN 25 MG/ML SUSP 100 ML BOTTLE PO SCH ×4 (09:00→20:08)
--- NOTE | 2017-12-03 09:07 | RADRPT ---
EXAM DATE/TIME: 12/03/2017 08:10 [place] COMPARISON: CHEST SINGLE AP, November 24, 2017, 3:36. INDICATIONS : Shortness of breath. MEDICAL HISTORY : Hypertension. Diabetes mellitus type II. SURGICAL HISTORY : None. ENCOUNTER: Subsequent ACUITY: 2 weeks PAIN SCORE: Non-responsive. LOCATION: Bilateral chest FINDINGS: Patient rotation towards the left. Persistent consolidation in the left lower lobe, slightly improve d, now with some delineation of the medial left hemidiaphragm. The right lung is clear. Stable card iomegaly. CONCLUSION: Persistent, but improved, left lower lobe consolidation. Dorian Vasquez MD on December 03, 2017 at 9:04 Board Certified Radiologist. This report was verified electronically.
--- NOTE | 2017-12-03 10:19 | HHI.IDPN ---
Subjective Subjective Remarks is a 67 y/o CF morbidly obese with BMI 58.7 kg/m2 who has had multiple prior admissions for MRSA pneumonia and respiratory failure presents by EMS for recurrent respiratory failure. She resides in a SNF. She was found unresponsive this morning. She was intubated in the field. She has a wbc 52k, lactate of 6.9, Cr 2.87 (baseline 0.5, prior admission discharge was 1.8). u/a concerning for probable UTI as well. In the emergency department patient received 3 IV fluid boluses and continued to be hypotensive needing vasopressor support. Upon review of records it appears she was recently treated in Oct 15 for UTI at [facility] with macrobid. EMAR from [facility] with no antibiotics but was on lactobacillus. Spoke to CHILO Moura at [facility] patient has 2-3 episodes of vomiting yesterday at [facility] and received antiemetics. T:98, BP: 110/62, 96% RA, BS: 108. Patient was not on any antibiotics. No diarrhea. Lasix increased due to pedal edema. No cultures drawn. No flu test done per records. She has a prior h/o admission at [facility] admitted in late 2016 when she was in the ICU intubated needing a trach eventually. During that admission patient was treated for MRSA pneumonia but also she has a history of pseudomonas infections in the past. Pseudomonas in the past with pansensitive cultures but given her multiple hospitalization and multiple courses of antibiotics she stands at this for multidrug-resistant Pseudomonas. At the time of my evaluation patient is in the IMC appears very critically ill intubated. Patient is on vasopressin 0.04, we will fed 40 mics, epinephrine 10/9, amiodarone drip at 1 g. Patient has 0 urine output at the present time. She has small white secretions. She has no diarrhea. Abdomen appears benign. No response to verbal or other stimuli for me but RN reports when daughter was here earlier she opened eyes, moved limbs and squeezed RNs fingers. Currently sedation is off but patient in ARF with no urine output. Infectious disease consultation was requested for evaluation and management of septic shock, pneumonia. Notes reviewed. D/W CHILO Solitario in place. On lasix. No fevers No rash Antibiotics Current Medications Medications (Trade) Dose Ordered Sig/Mirta Route Start Time Stop Time Status Last Admin (Brethine Inj) 1 mg UNSCH PRN SQ 11/15/17 12:45 (D50w (Vial) Inj) 25 ml UNSCH PRN IV PUSH 11/15/17 14:00 (Duoneb Neb) 1 ampule Q2HR NEB PRN INH 11/15/17 14:00 11/17/17 23:39 (Tylenol) 650 mg Q6H PRN PO 11/15/17 14:00 11/27/17 16:05 (Pepcid Inj) 10 mg Q12HR IV PUSH 11/15/17 21:00 12/03/17 04:14 (Zofran Inj) 4 mg Q6H PRN IV PUSH 11/15/17 14:00 11/27/17 17:52 (Heparin Inj) 5,000 units Q8H SQ 11/15/17 15:00 Future Hold 12/02/17 05:19 Miscellaneous Information 1 Q361D XX 11/15/17 14:00 11/15/17 19:00 (Chlorhexidine 2% Cloth) Taper DAILY@04 TOP 11/16/17 04:00 11/12/18 03:59 11/30/17 04:00 (Chlorhexidine 2% Cloth) 3 pack UNSCH PRN TOP 11/15/17 14:00 (Zelda-Colace) 1 tab BID PO 11/15/17 21:00 12/01/17 09:26 (Milk Of Magnesia Liq) 30 ml Q12H PRN PO 11/15/17 14:00 (Senokot) 17.2 mg Q12H PRN PO 11/15/17 14:00 (Dulcolax Supp) 10 mg DAILY PRN RECTAL 11/15/17 14:00 (Lactulose Liq) 30 ml DAILY PRN PO 11/15/17 14:00 Linezolid 300 ml @ 300 mls/hr Q12H IV 11/16/17 07:00 12/02/17 18:12 (Peridex 0.12% Liq) 15 ml BID@08,20 MT 11/16/17 20:00 12/01/17 08:00 (Vancomycin 25 Mg/ml Liq) 125 mg QID PO 11/24/17 09:00 12/01/17 22:23 ([place] 5-325 Mg) 1 tab Q4H PRN PO 11/24/17 18:15 12/02/17 18:11 (Mycostatin Cream) 1 applic Q6HR TOPICAL 11/26/17 12:00 12/03/17 05:20 Ceftolozane/ Tazobactam 1500 mg/Sodium Chloride 100 ml @ 100 mls/hr Q8H IV 11/26/17 11:00 12/02/17 18:25 (Diflucan) 100 mg DAILY PO 11/26/17 20:00 12/02/17 08:40 (Lasix Inj) 40 mg BID@09,18 IV PUSH 11/28/17 10:00 12/02/17 18:11 (Cardizem) 60 mg Q6HR PO 11/29/17 06:15 12/03/17 05:20 (Lopressor) 12.5 mg Q12HR PO 11/30/17 15:00 12/02/17 08:40 Lines PIV ok Past Medical History Past Medical History Chronic asthma home oxygen Atrial fibrillation Hyperlipidemia Hypertension excellent diabetes mellitus GERD Morbid obesity BMI 55 Past Surgical History Appendectomy Hernia surgery Tracheostomy placement Allergies: Coded Allergies: penicillin G (Unverified Allergy, Severe, 05/29/17) Objective . Vital Signs Date Time Temp Pulse Resp B/P (MAP) Pulse Ox O2 Delivery O2 Flow Rate FiO2 12/03/17 07:19 100 Nasal Cannula 2.00 12/03/17 06:00 107 12/03/17 04:00 98.6 112 20 105/70 (82) 96 12/03/17 04:00 112 12/03/17 02:00 104 12/03/17 00:00 98.3 98 20 98/52 (67) 91 12/03/17 00:00 98 12/02/17 22:00 101 12/02/17 20:24 94 Nasal Cannula 2.00 12/02/17 20:00 94 12/02/17 20:00 98.6 94 18 90/59 (69) 93 12/02/17 18:00 91 12/02/17 16:00 91 12/02/17 16:00 98.6 98 18 105/43 (63) 100 12/02/17 14:00 91 12/02/17 12:00 98.1 95 18 92/54 (67) 100 . Laboratory Tests Test 12/02/17 04:25 12/03/17 07:20 White Blood Count 8.1 TH/MM3 9.4 TH/MM3 Red Blood Count 3.08 MIL/MM3 2.98 MIL/MM3 Hemoglobin 8.7 GM/DL 8.6 GM/DL Hematocrit 27.8 % 26.6 % Mean Corpuscular Volume 90.4 FL 89.3 FL Mean Corpuscular Hemoglobin 28.4 PG 28.8 PG Mean Corpuscular Hemoglobin Concent 31.4 % 32.3 % Red Cell Distribution Width 20.9 % 20.5 % Platelet Count 87 TH/MM3 78 TH/MM3 Mean Platelet Volume 8.8 FL 8.3 FL Neutrophils (%) (Auto) 80.0 % 78.9 % Lymphocytes (%) (Auto) 9.9 % 11.0 % Monocytes (%) (Auto) 7.3 % 7.0 % Eosinophils (%) (Auto) 2.4 % 2.5 % Basophils (%) (Auto) 0.4 % 0.6 % Neutrophils # (Auto) 6.5 TH/MM3 7.4 TH/MM3 Lymphocytes # (Auto) 0.8 TH/MM3 1.0 TH/MM3 Monocytes # (Auto) 0.6 TH/MM3 0.7 TH/MM3 Eosinophils # (Auto) 0.2 TH/MM3 0.2 TH/MM3 Basophils # (Auto) 0.0 TH/MM3 0.1 TH/MM3 CBC Comment AUTO DIFF AUTO DIFF Differential Comment AUTO DIFF CONFIRMED AUTO DIFF CONFIRMED Platelet Estimate LOW LOW Platelet Morphology Comment NORMAL NORMAL Basophilic Stippling FAINT Laboratory Tests Test 12/02/17 04:25 12/03/17 07:20 Blood Urea Nitrogen 46 MG/DL 45 MG/DL Creatinine 2.11 MG/DL 2.02 MG/DL Random Glucose 82 MG/DL 69 MG/DL Calcium Level 8.7 MG/DL 8.7 MG/DL Sodium Level 145 MEQ/L 147 MEQ/L Potassium Level 3.8 MEQ/L 3.6 MEQ/L Chloride Level 105 MEQ/L 106 MEQ/L Carbon Dioxide Level 30.7 MEQ/L 32.5 MEQ/L Anion Gap 9 MEQ/L 9 MEQ/L Estimat Glomerular Filtration Rate 23 ML/MIN 24 ML/MIN Imaging Last Impressions Abdomen X-Ray 11/17/17 0000 Signed Impressions: Service Date/Time: Friday, November 17, 2017 19:04 - CONCLUSION: The proximal tip of the double-J stent is either in the expected region of the right renal pelvis or proximal ureter. Allen Mensah MD Chest X-Ray 11/16/17 0000 Signed Impressions: Service Date/Time: Thursday, November 16, 2017 12:43 - CONCLUSION: 1. Right IJ central line tip near the atriocaval junction. 2. No gross pneumothorax or significant interval change. Riccardo Stack MD Abdomen/Pelvis CT 11/16/17 0000 Signed Impressions: Service Date/Time: Thursday, November 16, 2017 08:54 - CONCLUSION: 1. Moderate hydronephrosis right kidney and hydroureter. There is dense material layering within the right renal pelvis and distal ureter of uncertain etiology but could be hemorrhage. Urinalysis and clinical correlation. 2. Hyperdense left renal lesion likely complex cyst. 3. Scattered diverticulosis of the colon. 4. Left basilar consolidation. 5. Left-sided ventral wall hernia. El Nuñez MD Chest CT 11/15/17 1255 Signed Impressions: Service Date/Time: November 14:24 - CONCLUSION: 1. New consolidative infiltrate in the posterior right upper lobe most characteristic of pneumonia. 2. Consolidation also noted in the left lower lobe which is increased from the prior CT. 3. New abnormal streaky density in the posterior upper abdomen located posterior to the liver. This is nonspecific but could represent infection or inflammatory change. 4. Cardiomegaly. Chintan Marshall MD Head CT 11/15/17 1134 Signed Impressions: Service Date/Time: November 14:13 - CONCLUSION: 1. No acute hemorrhage or mass effect. 2. Atrophy and chronic small vessel ischemic change 3. Air-fluid levels in the maxillary sinuses most characteristic of acute sinusitis. Chintan Marshall MD Physical Exam GENERAL: Morbidly obese patient, intubated. NAD. Opens eyes when stimulated. Not following SKIN: Ecchymoses noted. Left thigh large 15x10 cm approx area of erythema, abrasion of skin noted, looks better Skin folds in groin and breast with erythema and fungal overgrowth, improving HEAD: Atraumatic. Normocephalic. No temporal or scalp tenderness. EYES: Pupils equal round and reactive. No icterus, pale conjunctiva. Large neck. ENT: No nasal drainage Prior trach site ok. NECK: Trachea midline. Supple, nontender, no meningeal signs. CARDIOVASCULAR: HS audible and distant. RESPIRATORY: Clear to auscultation anteriorly. Distant breath sounds. GASTROINTESTINAL: Abdomen obese, diffuse tenderness, midline ventral hernia. Pannus noted. MUSCULOSKELETAL: Pedal edema noted. No cyanosis NEUROLOGICAL: Alert, follows commands, moves all 4 extremities. IV line sites with no e.o infection. : Solitario in place color looks better Assessment & Plan Remarks IMPRESSION PSAE sepsis, with Septic shock with multiorgan dysfunction syndrome due to complicated UTI - has R pyonephrosis, S/P cysto and stent placement - still on pressors but decreasing dose, WBC lower, temps better, creatinine decreasing Pneumonia, C/S MRSA 1. Aspiration pneumonia highly likely given multiple episodes of vomiting prior to admission in the [facility] 2. Possible post influenza necrotizing pneumonia. 3. Health care pneumonia. Diarrhea: Cdiff positive. Candiduria Leukemoid reaction: Cdiff, other infections, steroids. Staph coag neg bacteremia: likely contaminant. Acute respiratory failure on vent Acute renal failure with anuria, due to sepsis and shock. Morbid obesity BMI 58.7 KG per meter squared Nausea vomiting prior to admission Recommendations: DC Zerbaxa IV DC Zyvox IV Continue oral Vanco (stop date: 12/14/2017) DC oral diflucan. lencho RN Follow cultures. Follow clinically. Amy Cartagena MD Dec 03, 2017 10:19
--- NOTE | 2017-12-03 10:42 | HHI.NPPN ---
Subjective General Problems: Edema Renal Failure: Acute Interval History She is lying supine. Sleeping. Not motivated, minimal food intake. (Suad Lucas) Review of Systems General General Remarks difficult to ascertain. (Suad Lucas) Cardiovascular Cardiac: Edema (Suad Lucas) Objective Data Data Vital Signs Date Time Temp Pulse Resp B/P (MAP) Pulse Ox O2 Delivery O2 Flow Rate FiO2 12/03/17 07:19 100 Nasal Cannula 2.00 12/03/17 06:00 107 12/03/17 04:00 98.6 112 20 105/70 (82) 96 12/03/17 04:00 112 12/03/17 02:00 104 12/03/17 00:00 98.3 98 20 98/52 (67) 91 12/03/17 00:00 98 12/02/17 22:00 101 12/02/17 20:24 94 Nasal Cannula 2.00 12/02/17 20:00 94 12/02/17 20:00 98.6 94 18 90/59 (69) 93 12/02/17 18:00 91 12/02/17 16:00 91 12/02/17 16:00 98.6 98 18 105/43 (63) 100 12/02/17 14:00 91 12/02/17 12:00 98.1 95 18 92/54 (67) 100 (Suad Lucas) -: 12/03/17 0720 12/03/17 0720 Imaging Last 72 hours Impressions Chest X-Ray 12/03/17 0000 Signed Impressions: Service Date/Time: Sunday, December 03, 2017 08:10 - CONCLUSION: Persistent, but improved, left lower lobe consolidation. Dorian Vasquez MD Tubes & Lines: Garcia Tubes & Lines Comment TLC right IJ (Suad Lucas) Physical Exam General Appearance: Well Nourished, No Acute Distress, Comfortable, Sleeping, Obese (Suad Lucas) Eyes Eye Exam: Pupils Equal (Suad Lucas) Throat Throat Exam: Oral Mucosa [place] & Moist (Suad Lucas) Neck Neck Exam: Neck Supple (Suad Lucas) Pulmonary Resp Exam: Breath Sounds Equal, No Distress, Crackles (Suad Lucas) Cardiology CV Exam: Regular, Good Perfusion, Tachycardia (Suad Lucas) Gastrointestinal/Abdomen GI Exam: Soft, Non-Tender, Bowel Sounds Present GI Remarks morbidly obese (Suad Lucas) Musculoskeletal MS Exam: Joints Intact, Normal Tone, Unable to Ambulate (Suad Lucas) Integumentary Skin Exam: Warm, Dry (Suad Lucas) Extremeties Extremities Exam: Moderate Edema, Pitting Edema, Dependent Edema Extremeties Remarks extensive edema, anasarca , 4+ pitting (Suad Lucas) Neurologic Neuro Exam: Alert, Awake, Oriented, Speech Clear (Suad Lucas) Psychiatric Psych Exam: Appropriate Responses (Suad Lucas) Assessment/Plan Discussed Condition With: Patient Assessment Summary: FREDDY/Acute Renal Failure, Fluid/Volume Overload, Hypotension Electrolyte Assessment: Hypokalemia Problem List: (1) FREDDY (acute kidney injury) ICD Codes: N17.9 - Acute kidney failure, unspecified Plan: In January 2017 her renal function was normal. Had FREDDY in September, creatinine at discharge was 1.8 Obstructive uropathy, s/p R ureteral stent placement on the 16 of November. FREDDY also due to urosepsis with renal hyperperfusion Renal function is improving. Needs continued diuresis. On Lasix 40 IV BID. Add Diuril 500 IV due to hypernatremia. Free water intake encouraged. Would prefer to remove garcia but reportedly has skin breakdown and due to size, mobility is difficult. Has UTI (dez) on Diflucan. Length of therapy unclear. Repeat labs daily. (2) Tachycardia ICD Codes: R00.0 - Tachycardia, unspecified Plan: A fib, On Cardizem. Also PO Lopressor. Reduce dosage to 12.5 BID due to hypotension. (3) Pneumonia ICD Codes: J18.9 - Pneumonia, unspecified organism Status: Acute Plan: ID following, on Zerbaxa and Zyvox. (4) Septic shock ICD Codes: A41.9 - Sepsis, unspecified organism; R65.21 - Severe sepsis with septic shock Plan: Pseudomonas sepsis Also po Diflucan for candiduria Continue supportive care (5) Respiratory failure ICD Codes: J96.90 - Respiratory failure, unspecified, unspecified whether with hypoxia or hypercapnia Plan: Successfully extubated Monitor respiratory status (Suad Lucas) Problem List: (1) FREDDY (acute kidney injury) ICD Codes: N17.9 - Acute kidney failure, unspecified Plan: In January 2017 her renal function was normal. Had FREDDY in September, creatinine at discharge was 1.8 Obstructive uropathy, s/p R ureteral stent placement on the 16 of November. FREDDY also due to urosepsis with renal hyperperfusion Renal function is improving. Needs continued diuresis. On Lasix 40 IV BID. Add Diuril 500 IV due to hypernatremia. Free water intake encouraged. Would prefer to remove garcia but reportedly has skin breakdown and due to size, mobility is difficult. Has UTI (dez) on Diflucan. Length of therapy unclear. Repeat labs daily. (2) Tachycardia ICD Codes: R00.0 - Tachycardia, unspecified Plan: A fib, On Cardizem. Also PO Lopressor. Reduce dosage to 12.5 BID due to hypotension. (3) Pneumonia ICD Codes: J18.9 - Pneumonia, unspecified organism Status: Acute Plan: ID following, on Zerbaxa and Zyvox. (4) Septic shock ICD Codes: A41.9 - Sepsis, unspecified organism; R65.21 - Severe sepsis with septic shock Plan: Pseudomonas sepsis Also po Diflucan for candiduria Continue supportive care (5) Respiratory failure ICD Codes: J96.90 - Respiratory failure, unspecified, unspecified whether with hypoxia or hypercapnia Plan: Successfully extubated Monitor respiratory status Plan patient was seen and examined. Agree with above assessment and plan (Mohinder Lopez MD) Suad Lucas Dec 03, 2017 10:42 Mohinder Lopez MD Dec 03, 2017 20:05
[2017-12-03] MEDS: CHLOROTHIAZIDE SOD 500 MG VIAL IV SCH (15:10)
[2017-12-03 18:04] LABS: HEPARIN INDUCED PLATELET AB NEGATIVE (NEGATIVE)
[2017-12-04] VITALS (11 sets, daily range): BP systolic 88–135; BP diastolic 48–58; PULSE 92–107; RESP 16–25; TEMP 97.9–99.3; O2SAT 94–100
[2017-12-04 05:14] LABS: BICARBONATE 31.7 MEQ/L (21.0-32.0); CALCIUM 8.7 MG/DL (8.5-10.1); CREATININE 1.9 MG/DL (0.50-1.00)
[2017-12-04 05:21] LABS: HEMATOCRIT 23.8 % (35.0-46.0); HEMOGLOBIN 7.8 GM/DL (11.6-15.3); MEAN CELL VOLUME 89.1 FL (80.0-100.0); MEAN CORPUSCULAR HGB CONC 32.5 % (32.0-36.0); MEAN PLATELET VOLUME 8.3 FL (7.0-11.0); PLATELET COUNT 70 TH/MM3 (150-450); RED BLOOD COUNT 2.68 MIL/MM3 (4.00-5.30); RED CELL DISTRIBUTION WIDTH 20.2 % (11.6-17.2)
[2017-12-04] MEDS: NYSTATIN 100,000 UNIT/GM CREAM 15 GM TOPICAL SCH ×3 (06:18→19:59)
[2017-12-04] MEDS: DILTIAZEM HCL 60 MG TAB PO SCH ×3 (06:18→18:00)
[2017-12-04] MEDS: CHLORHEXIDINE 0.12% (ORAL KIT) 15 ML CUP MT SCH ×2 (08:00→19:58)
[2017-12-04] MEDS: DOCUSATE SODIUM 50 MG/SENNA 8.6 MG TAB PO SCH ×2 (09:00→19:58)
[2017-12-04] MEDS: FUROSEMIDE 40 MG/4 ML VIAL IV PUSH SCH (09:37)
[2017-12-04] MEDS: FAMOTIDINE 20 MG/2 ML VIAL IV PUSH SCH ×2 (09:37→19:57)
[2017-12-04] MEDS: CHLOROTHIAZIDE SOD 500 MG VIAL IV SCH ×2 (09:38→22:05)
[2017-12-04] MEDS: METOPROLOL TARTRATE 25 MG TAB PO SCH ×2 (09:38→19:58)
--- NOTE | 2017-12-04 10:01 | HHI.NPPN ---
Subjective General Problems: Edema Renal Failure: Acute Interval History She is not eating/drinking. Very unmotivated. Sodium is higher. (Suad Lucas) Review of Systems General General Remarks difficult to ascertain. (Suad Lucas) Cardiovascular Cardiac: Edema (Suad Lucas) Objective Data Data Vital Signs Date Time Temp Pulse Resp B/P (MAP) Pulse Ox O2 Delivery O2 Flow Rate FiO2 12/04/17 07:41 97 Nasal Cannula 2.00 12/04/17 06:00 107 12/04/17 04:00 100 12/04/17 04:00 98.8 100 20 105/57 (73) 95 12/04/17 02:00 96 12/04/17 00:00 102 12/04/17 00:00 97.9 102 25 113/54 (73) 96 12/03/17 22:00 98 12/03/17 20:00 98.9 99 20 100/59 (73) 95 12/03/17 20:00 96 Nasal Cannula 2.00 12/03/17 20:00 99 12/03/17 19:00 Nasal Cannula 2.00 12/03/17 16:00 99.1 97 19 108/54 (72) 97 12/03/17 12:00 97.5 97 17 126/58 (80) 99 (Suad Lucas) -: 12/04/17 0350 12/04/17 0350 Imaging Last 72 hours Impressions Chest X-Ray 12/03/17 0000 Signed Impressions: Service Date/Time: Sunday, December 03, 2017 08:10 - CONCLUSION: Persistent, but improved, left lower lobe consolidation. Dorian Vasquez MD Tubes & Lines: Garcia (Suad Lucas) Physical Exam General Appearance: Well Nourished, No Acute Distress, Comfortable, Obese Appearance Remarks head facing left, sternal rub to open eyes (Suad Lucas) Eyes Eye Exam: Pupils Equal (Suad Lucas) Throat Throat Exam: Oral Mucosa [place] & Moist (Suad Lucas) Neck Neck Exam: Neck Supple (Suad Lucas) Pulmonary Resp Exam: Breath Sounds Equal, No Distress, Crackles (Suad Lucas) Cardiology CV Exam: Regular, Good Perfusion, Tachycardia (Suad Lucas) Gastrointestinal/Abdomen GI Exam: Soft, Non-Tender, Bowel Sounds Present, Positive Bowel Movement GI Remarks morbidly obese (Suad Lucas) Musculoskeletal MS Exam: Joints Intact, Normal Tone, Unable to Ambulate (Suad Lucas) Integumentary Skin Exam: Warm, Dry (Suad Lucas) Extremeties Extremities Exam: Moderate Edema, Pitting Edema, Dependent Edema Extremeties Remarks extensive edema, anasarca , 4+ pitting (Suad Lucas) Neurologic Neuro Exam: Alert, Awake, Oriented, Speech Clear (Suad Lucas) Psychiatric Psych Exam: Appropriate Responses (Suad Lucas) Assessment/Plan Discussed Condition With: Patient Assessment Summary: FREDDY/Acute Renal Failure, Fluid/Volume Overload, Hypotension Electrolyte Assessment: Hypokalemia Problem List: (1) FREDDY (acute kidney injury) ICD Codes: N17.9 - Acute kidney failure, unspecified Plan: In January 2017 her renal function was normal. Had FREDDY in September, creatinine at discharge was 1.8 Obstructive uropathy, s/p R ureteral stent placement on the 16 of November. FREDDY also due to urosepsis with renal hyperperfusion Renal function is improving. Needs continued diuresis. On Lasix 40 IV BID. Add Diuril 500 IV due to hypernatremia. Free water intake encouraged. Start D5@ 30 ml/hr. Would prefer to remove garcia but reportedly has skin breakdown and due to size, mobility is difficult. Treated for Yuly UTI. Repeat labs daily. She is non oliguric. (2) Tachycardia ICD Codes: R00.0 - Tachycardia, unspecified Plan: Improved. A fib, On Cardizem. Also PO Lopressor, 12.5 BID, has been hypotensive. (3) Pneumonia ICD Codes: J18.9 - Pneumonia, unspecified organism Status: Acute Plan: ID following, off antibiotics. (4) Septic shock ICD Codes: A41.9 - Sepsis, unspecified organism; R65.21 - Severe sepsis with septic shock Plan: Pseudomonas sepsis Off all antibiotic therapy TLC has been removed. Continue supportive care (5) Respiratory failure ICD Codes: J96.90 - Respiratory failure, unspecified, unspecified whether with hypoxia or hypercapnia Plan: Successfully extubated Monitor respiratory status Plan She is not motivated. Needs PT/OT, risk for skin breakdown and complications of immobility. Consider palliative care evaluation to address goals of therapy. (Suad Lucas) Problem List: (1) FREDDY (acute kidney injury) ICD Codes: N17.9 - Acute kidney failure, unspecified Plan: In January 2017 her renal function was normal. Had FREDDY in September, creatinine at discharge was 1.8 Obstructive uropathy, s/p R ureteral stent placement on the 16 of November. FREDDY also due to urosepsis with renal hyperperfusion Renal function is improving. Needs continued diuresis. On Lasix 40 IV BID. Add Diuril 500 IV due to hypernatremia. Free water intake encouraged. Start D5@ 30 ml/hr. Would prefer to remove garcia but reportedly has skin breakdown and due to size, mobility is difficult. Treated for Yuly UTI. Repeat labs daily. She is non oliguric. (2) Tachycardia ICD Codes: R00.0 - Tachycardia, unspecified Plan: Improved. A fib, On Cardizem. Also PO Lopressor, 12.5 BID, has been hypotensive. (3) Pneumonia ICD Codes: J18.9 - Pneumonia, unspecified organism Status: Acute Plan: ID following, off antibiotics. (4) Septic shock ICD Codes: A41.9 - Sepsis, unspecified organism; R65.21 - Severe sepsis with septic shock Plan: Pseudomonas sepsis Off all antibiotic therapy TLC has been removed. Continue supportive care (5) Respiratory failure ICD Codes: J96.90 - Respiratory failure, unspecified, unspecified whether with hypoxia or hypercapnia Plan: Successfully extubated Monitor respiratory status Plan patient was seen and examined. Continue hypotonic fluids. Diuril for diuresis. (Mohinder Lopez MD) Suad Lucas Dec 04, 2017 10:01 Mohinder Lopez MD Dec 04, 2017 10:15
--- NOTE | 2017-12-04 11:19 | HHI.CCPN ---
Subjective Remarks/Hospital Course Hospital Course: 67yF with super morbid obesity who has had multiple prior admissions for MRSA pneumonia and respiratory failure presents by EMS for recurrent respiratory failure. She resides in a SNF. She was found unresponsive this morning. She was intubated in the field. In the emergency department she was hypotensive despite ivf resuscitation and required norepinephrine for vasopressor support. she has a wbc 52k, lactate of 6.9, Cr 2.87 (baseline 0.5, prior admission discharge was 1.8). u/a concerning for probable UTI as well. Subjective: 2: remained unstable throughout the night overnight. on 3 vasopressors. this morning, no better, wbc higher. decision by Dr. Cartagena and myself to emergently CT abd/pelvis to rule out source control, despite ongoing hemodynamic instability. CT abd/pelvis demonstrated right hydronephrosis with likely obstructive pyelonephritis. discussed with urology and interventional radiology : likely to decompensate during procedure. unable to physically prone patient. difficult technically with high risk to do supine lateral CT guided perc nephrostomy tube. urology to take to the OR for cysto with stenting. Prior to leaving for OR, patient's central line was pulled accidentally. patient had no other iv access. I/O needles unavailable. emergently replaced central line in right IJ (see separate procedure note for details). due to ongoing shock, patient's blood pressure in 40s systolic during this time. restarted vasopressors after central access regained. went to OR. cultures growing pseudomonas. 2: minimal improvements. taken to OR yesterday for cysto. minimal uop overnight. off epinephrine but remains on 2 vasopressors, in shock. wbc downtrending but > 50k. 11/18: vasopressor requirements are improving slightly. remains on 2 vasopressors and in shock. blood and urine growing pseudomonas, sputum growing MRSA (history of MRSA pneumonia). wbc downtrending, but remains very high. uop marginal. 11/19 Patient remains sedated and intubated. On Levophed 2 mics, Vasopressin 0.04 mics. WBC is trending down. 11/20 Patient remains intubated and on Precedex for sedation. Remains on Vasopressin and Levophed 8 mics. Afebrile. 11/21 No events overnight. Off pressors and off Precedex. Awake, alert tolerated CPAP for several hrs yesterday 11/22 Patient is awake and alert tolerated CPAP yesterday. Off sedation. Placed on Lasix drip 20mg/hr per renal. Afebrile. 11/23 Patient s/p extubation yesterday on 2L oxygen with good sats. Awake and alert. 11/24: No acute events overnight. Lortab 5/325 mg PRN for pain added to medication regimen. 11/25: Afebrile. Patient resting comfortably, no acute events overnight. Patient awake and responsive. Patient noted to have a poor appetite with pureed diet supplementation with boost supplementation with every meal added. 11/26 No events overnight. On Lasix 10mg/hr. Awake and alert. Afebrile. 11/27 Patient is on 2L oxygen, on Lasix drip 10mg/hr,BP borderline low this morning 11/28: remains on 2L o2 by NC. on BID lasix dosing. blood pressure stable. tachycardia remains, but does not appear to be secondary to volume depletion. 11/29: still doing well. on nc o2. diuresing well. tachycardia improved overnight with Lopressor: will schedule diltiazem for AVN blockade. more alkalotic as well. tolerating diet. needs aggressive PT. 11/30 No events overnight. On 2L oxygen. Afebrile, 12/01 Patient is lying in bed in NAD. On 2L oxygen. Afebrile. 12/02 No events overnight. On 2L oxygen. Cr: 2.1 this morning with UOP: 1950 ml in 24 hrs 12/03 Patient is lying in bed in NAD. Afebrile. 12/04: Resting comfortably in bed not in any acute distress. On nasal cannula. Objective Vital Signs Date Time Temp Pulse Resp B/P (MAP) Pulse Ox O2 Delivery O2 Flow Rate FiO2 12/04/17 07:41 97 Nasal Cannula 2.00 12/04/17 06:00 107 12/04/17 04:00 98.8 20 105/57 (73) Intake and Output 12/04/17 12/04/17 12/05/17 08:00 16:00 00:00 Intake Total 240 ml Output Total 850 ml Balance -610 ml Result Diagram: 12/04/17 0350 12/04/17 0350 Imaging Last Impressions Chest CT 11/26/17 0000 Signed Impressions: Service Date/Time: Sunday, November 26, 2017 17:16 - CONCLUSION: 1. Improvement in bilateral lung consolidation since November 15. Interval development of small bilateral effusions, right greater than left. Sachin Gonzalez MD Abdomen/Pelvis CT 11/26/17 0000 Signed Impressions: Service Date/Time: Sunday, November 26, 2017 17:16 - CONCLUSION: Very limited exam because of arms and body habitus. I don't see abscess or free air. Double-J stent on the right. Joseph Baeza MD FACR Chest X-Ray 11/24/17 0000 Signed Impressions: Service Date/Time: Friday, November 24, 2017 03:36 - CONCLUSION: 1. Improved right lung consolidation. Persistent consolidation left base. Interval extubation. Sachin Gonzalez MD Abdomen X-Ray 11/17/17 0000 Signed Impressions: Service Date/Time: Friday, November 17, 2017 19:04 - CONCLUSION: The proximal tip of the double-J stent is either in the expected region of the right renal pelvis or proximal ureter. KQuoc Mensah MD Head CT 11/15/17 1134 Signed Impressions: Service Date/Time: November 14:13 - CONCLUSION: 1. No acute hemorrhage or mass effect. 2. Atrophy and chronic small vessel ischemic change 3. Air-fluid levels in the maxillary sinuses most characteristic of acute sinusitis. Chintan Marshall MD Objective Remarks GENERAL: Patient is morbidly obese female 67 yo lying in bed in NAD SKIN: Warm and dry. HEAD: Normocephalic. EYES: No scleral icterus. No injection or drainage. NECK: trachea midline. JVD unable to be assessed due to body habitus. CARDIOVASCULAR: Tachycardic rate, irregularly irregular rhythm. afib by tele. RESPIRATORY: Breath sounds equal bilaterally. No accessory muscle use. 2L nc. GASTROINTESTINAL: Abdomen soft, protuberant, non-tender, nondistended. MUSCULOSKELETAL: No cyanosis, + edema. Neuro: Awake and alert, following commands. Moves both upper extremities A/P Assessment and Plan Assessment: 67yF with super morbid obesity who was originally admitted with obstructive uropathy, GNR septic shock, acute hypoxic respiratory failure, multiorgan failure. clinically improving. Neuro: Metabolic Encephalopathy - improved Chronic Pain - Awake and alert - Lortab 5/325 mg PRN Resp: Acute hypoxic and hypercarbic respiratory failure- Extubated 11/22 Healthcare Associated Pneumonia Continue with oxygen keep sat >92% Bronchodilators, IS, NIPPV PRN for resp distress - sputum culture: MRSA CT chest 11/26: Improvement in bilateral lung consolidation since November 15. small bilateral effusions, right greater than left. CV: s/p Septic Shock - Atrial fibrillation with rapid ventricular response - Monitor HR and BP keep MAP>65mmHg. On diltiazem 60mg po q6h Renal: Acute Kidney Injury - resolving. Acute pyelonephritis Metabolic alkalosis secondary to intravascular volume contraction Monitor renal function, I/O's, avoid nephrotoxins On Lasix 40mg BID, follow up on BMP Cr: 2.0, UOP: 1650ml in 24 hrs - s/p Emergent cysto with stent 11/16, Urology is following Renal is following- Dr. Lopez FEN/GI: Super Morbid Obesity Lactic Acidosis- cleared Anion-gap Metabolic acidosis- resolved. Acute intravascular volume overload Severe acute protein calorie malnutrition -Pured diet, poor oral intake -Pepcid for GI prophylaxis -CT abdomen/pelvis: No abscess or free air ID: History of prior MRSA pneumonia Acute pyelonephritis Pseudomonas bacteremia Positive C-diff - ID on board. - Abx per Mitzi. Zyvox, Zerbaxa discontinued on 12/03 per ID, Continue PO Vanco , Diflucan. -11/25 urine cx : C. Albicans -11/20 BC :NGTD -11/17 BC: Coag negative staph 10/18 bottles..likely contaminant - 11/17 Urine cx :Pseudomonas - 2/ blood cultures: pseudomonas - 2/1 urine culture: pseudomonas - 2/1 sputum culture: MRSA Endocrine: SSI if needed for glycemic control Heme: Monitor CBC, follow up on Hep PLT ab r/o HIT Musculoskeletal: -PT/OT evaluate and treat Prophylaxis: SCDs, SQH held for thrombocytopenia, follow up on Hep PLT ab r/o HIT Pepcid Lines: -peripheral IV's PT/OT eval and treat Level 2 Consult and transfer to hospitalist service for further medical management. Transfer to floor. Kody Cartagena MD Dec 04, 2017 11:19
[2017-12-04] MEDS: VANCOMYCIN 25 MG/ML SUSP 100 ML BOTTLE PO SCH ×3 (11:57→19:58)
[2017-12-04] MEDS: DEXTROSE 5% IN WATE 1000ML INJ 1,000 ML IV SCH (12:51)
[2017-12-05] VITALS (8 sets, daily range): BP systolic 108–133; BP diastolic 53–72; PULSE 86–118; RESP 16–19; TEMP 96–97.9; O2SAT 95–100
[2017-12-05] MEDS: CHLORHEXIDINE GLUCONATE 2 % 1 PACK (2 CLOTHS) TOP SCH ×2 (02:48→23:06)
[2017-12-05] MEDS: DILTIAZEM HCL 60 MG TAB PO SCH ×5 (06:00→23:15)
[2017-12-05] MEDS: NYSTATIN 100,000 UNIT/GM CREAM 15 GM TOPICAL SCH ×5 (06:15→23:16)
[2017-12-05] MEDS: CHLORHEXIDINE 0.12% (ORAL KIT) 15 ML CUP MT SCH ×2 (08:00→20:00)
[2017-12-05] MEDS: DOCUSATE SODIUM 50 MG/SENNA 8.6 MG TAB PO SCH ×2 (08:29→21:55)
[2017-12-05] MEDS ORDERED: FUROSEMIDE 40 MG/4 ML VIAL IV PUSH SCH (09:00)
--- NOTE | 2017-12-05 09:15 | HHI.PR ---
Subjective Remarks in no acute distress. denies pain. afebrile. no new complaints. Objective Vitals Vital Signs Date Time Temp Pulse Resp B/P (MAP) Pulse Ox O2 Delivery O2 Flow Rate FiO2 12/05/17 08:00 97.1 103 18 129/58 (81) 100 12/05/17 06:25 93 16 123/58 (79) 99 12/05/17 04:00 97.3 118 18 118/72 (87) 96 12/05/17 04:00 106 12/05/17 00:00 101 12/05/17 00:00 97.9 108 16 133/71 (91) 95 12/04/17 20:05 Nasal Cannula 2.00 12/04/17 20:00 98.3 95 20 126/58 (80) 99 12/04/17 20:00 100 12/04/17 16:00 97.9 92 16 135/56 (82) 100 12/04/17 14:00 99 12/04/17 12:00 107 20 88/48 (61) 94 12/04/17 12:00 107 12/04/17 10:00 102 I/O 12/04/17 12/04/17 12/04/17 12/05/17 12/05/17 12/05/17 07:00 15:00 23:00 07:00 15:00 23:00 Intake Total 240 ml 75 ml Output Total 850 ml 200 ml 650 ml Balance -610 ml -125 ml -650 ml Intake Oral 240 ml 75 ml Output Urine Total 850 ml 200 ml 650 ml Result Diagram: 12/04/17 0350 12/04/17 0350 Imaging Last Impressions Chest X-Ray 12/03/17 0000 Signed Impressions: Service Date/Time: Sunday, December 03, 2017 08:10 - CONCLUSION: Persistent, but improved, left lower lobe consolidation. Dorian Vasquez MD Chest CT 11/26/17 0000 Signed Impressions: Service Date/Time: Sunday, November 26, 2017 17:16 - CONCLUSION: 1. Improvement in bilateral lung consolidation since November 15. Interval development of small bilateral effusions, right greater than left. Sachin Gonzalez MD Abdomen/Pelvis CT 11/26/17 0000 Signed Impressions: Service Date/Time: Sunday, November 26, 2017 17:16 - CONCLUSION: Very limited exam because of arms and body habitus. I don't see abscess or free air. Double-J stent on the right. Joseph Baeza MD FACR Abdomen X-Ray 11/17/17 0000 Signed Impressions: Service Date/Time: Friday, November 17, 2017 19:04 - CONCLUSION: The proximal tip of the double-J stent is either in the expected region of the right renal pelvis or proximal ureter. Allen Mensah MD Head CT 11/15/17 1134 Signed Impressions: Service Date/Time: November 14:13 - CONCLUSION: 1. No acute hemorrhage or mass effect. 2. Atrophy and chronic small vessel ischemic change 3. Air-fluid levels in the maxillary sinuses most characteristic of acute sinusitis. Chintan Marshall MD Objective Remarks GENERAL: morbidly obese, in no apparent distress. CARDIOVASCULAR: Regular rate and regular rhythm without murmurs, gallops, or rubs. RESPIRATORY: Clear to auscultation. Breath sounds equal bilaterally. No wheezes , rales, or rhonchi. GASTROINTESTINAL: Abdomen soft, non-tender, nondistended. Normal, active bowel sounds MUSCULOSKELETAL: Extremities without clubbing, cyanosis, or edema. NEURO: Alert & Oriented x4 to person, place, time, situation. Moves all ext x4 Procedures endotracheal intubation/ cystoscopy and stent placement. Medications and IVs Inpatient Medications Acetaminophen (Tylenol Supp) 650 mg ONCE ONCE RECTAL Last administered on at 12:39; Start 11/15/17 at 12:30; Stop 11/15/17 at 12:31; Status DC Acetaminophen (Tylenol) 650 mg Q6H PRN PO PAIN 1-6 AND/OR FEVER >101F Last administered on 11/27/17at 16:05; Start 11/15/17 at 14:00 Acetaminophen/ Hydrocodone Bitart ([place] 5-325 Mg) 1 tab Q4H PRN PO PAIN SCALE 7 TO 10 Last administered on 12/02/17at 18:11; Start 11/24/17 at 18:15 Acetazolamide Sodium (Diamox Inj) 500 mg Q24H IV Last administered on at 08:25; Start 11/30/17 at 09:00; Stop 12/01/17 at 07:34; Status DC Albumin Human 100 ml @ 60 mls/hr ONCE ONCE IV Last administered on 11/28/17at 23:38; Start 11/28/17 at 23:00; Stop 11/29/17 at 00:39; Status DC Albuterol/ Ipratropium (Duoneb Neb) 1 ampule Q4HR NEB NEB Last administered on 11/26/17at 11:16; Start 11/22/17 at 12:00; Stop 11/26/17 at 11:59; Status DC Amiodarone HCl 150 mg/Dextrose 103 ml @ 600 mls/hr Q11M ONCE IV Last administered on 11/15/17at 13:24; Start 11/15/17 at 13:03; Stop 11/15/17 at 13:13; Status DC Amiodarone HCl 200 mg/Dextrose 101 ml @ 202 mls/hr Q12H IV Last administered on 11/19/17at 12:00; Start 11/18/17 at 12:00; Stop 11/19/17 at 17:52; Status DC Amiodarone HCl 450 mg/Dextrose 250 ml @ 33.33 mls/ hr Q7H31M PRN IV Per Protocol Last administered on 11/15/17at 13:51; Start 11/15/17 at 13:13; Stop at 20:08; Status DC Amiodarone HCl 450 mg/Sodium Chloride 250 ml @ 33.33 mls/ hr Q7H31M PRN IV Per Protocol Last administered on 11/18/17at 05:03; Start 11/15/17 at 20:15; Stop at 10:21; Status DC Azithromycin 500 mg/Sodium Chloride 250 ml @ 250 mls/hr Q24H IV Last administered on 11/17/17at 08:10; Start 11/16/17 at 08:00; Stop 11/17/17 at 09:45; Status DC Aztreonam 1000 mg/ Sodium Chloride 100 ml @ 200 mls/hr Q8H IV ; Start 11/15/17 at 22:00; Stop 11/15/17 at 22:00; Status DC Bisacodyl (Dulcolax Supp) 10 mg DAILY PRN RECTAL SEVERE CONSITIPATION; Start at 14:00 Cefazolin Sodium (Ancef Inj) 3,000 mg ONCE ONCE IV ; Start 11/16/17 at 14:45; Stop 11/16/17 at 15:34; Status DC Cefazolin Sodium 3000 mg/Sodium Chloride 130 ml @ 200 mls/hr [employer]ING [employer]NEY IV ; Start 11/16/17 at 15:45; Stop 11/19/17 at 15:44; Status DC Ceftazidime 2000 mg/Sodium Chloride 100 ml @ 200 mls/hr Q8H IV Last administered on 11/26/17at 09:21; Start 11/25/17 at 18:00; Stop 11/26/17 at 09:50 ; Status DC Ceftolozane/ Tazobactam 1500 mg/Sodium Chloride 100 ml @ 100 mls/hr Q8H IV Last administered on 12/02/17at 18:25; Start 11/26/17 at 11:00; Stop 12/03/17 at 10:16; Status DC Ceftolozane/ Tazobactam 375 mg/ Sodium Chloride 100 ml @ 100 mls/hr Q8H IV Last administered on 11/19/17at 13:14; Start 11/15/17 at 17:30; Stop 11/19/17 at 14: 37; Status DC Chlorhexidine Gluconate (Chlorhexidine 2% Cloth) 3 pack UNSCH PRN TOP HYGIENIC CARE; Start 11/15/17 at 14:00 Chlorhexidine Gluconate (Peridex 0.12% Liq) 15 ml BID@08,20 MT Last administered on 12/01/17at 08:00; Start 11/16/17 at 20:00 Chlorothiazide Sodium (Diuril Inj) 250 mg BID IV Last administered on at 22:05; Start 12/04/17 at 21:00 Clindamycin/ Sodium Chloride 50 ml @ 100 mls/hr Q6H IV Last administered on 11/16/17at 05:05; Start 11/15/17 at 18:00; Stop 11/16/17 at 06:38; Status DC Dexmedetomidine HCl 1000 mcg/ Sodium Chloride 250 ml @ 9.07 mls/hr TITRATE PRN IV SEDATION Last administered on 11/19/17at 23:52; Start 11/19/17 at 08:15; Stop 11/22/17 at 09:38; Status DC Dexmedetomidine HCl 200 mcg/ Sodium Chloride 52 ml @ 9.43 mls/hr TITRATE PRN IV SEDATION; Start 11/18/17 at 10:30; Stop 11/18/17 at 11:03; Status DC Dextrose 1,000 ml @ 30 mls/hr Q24H IV Last administered on 12/04/17at 12:51; Start 12/04/17 at 13:00 Dextrose (D50w (Vial) Inj) 25 ml UNSCH PRN IV PUSH HYPOGLYCEMIA-SEE COMMENTS; Start 11/15/17 at 14:00 Diatrizoate Meglum/ Diatrizoate Sod ( Gastroview Liq) 18 ml ONCE ONCE PO Last administered on 11/26/17at 11:34; Start 11/26/17 at 09:59; Stop 11/26/17 at 11:19; Status DC Digoxin (Lanoxin Inj) 0.25 mg STAT ONCE IV PUSH Last administered on 11/15/17at 17:54; Start 11/15/17 at 16:15; Stop 11/15/17 at 17:27; Status DC Diltiazem HCl (Cardizem Inj) 10 mg BOLUS ONCE IV PUSH ; Start 11/15/17 at 12:30 ; Stop 11/15/17 at 12:31; Status DC Diltiazem HCl (Cardizem) 60 mg Q6HR PO Last administered on 12/04/17at 06:18; Start 11/29/17 at 06:15 Diltiazem HCl 125 mg/Sodium Chloride 125 ml @ 5 mls/hr TITRATE PRN IV tachycardia Last administered on 11/17/17at 10:26; Start 11/15/17 at 12:30; Stop at 10:21; Status DC Dopamine HCl/ Dextrose 500 ml @ 0 mls/hr TITRATE PRN IV Blood Pressure Management; Start 11/15/17 at 12:45; Stop 11/18/17 at 10:21; Status DC Epinephrine HCl 2 mg/Dextrose 252 ml @ 22.68 mls/ hr TITRATE PRN IV Blood Pressure Management Last administered on 11/15/17at 19:34; Start 11/15/17 at 15:45 ; Stop 11/15/17 at 22:43; Status DC Epinephrine HCl 8 mg/Dextrose 250 ml @ 5.62 mls/hr TITRATE PRN IV Blood Pressure Management Last administered on 11/15/17at 23:15; Start 11/15/17 at 22:45 ; Stop 11/18/17 at 10:21; Status DC Famotidine (Pepcid Inj) 10 mg Q12HR IV PUSH Last administered on 12/04/17at 19: 57; Start 11/15/17 at 21:00 Fentanyl Citrate 250 ml @ 5 mls/hr TITRATE PRN IV SEDATION; Start 11/16/17 at 16 :00; Stop 11/18/17 at 10:21; Status DC Fluconazole (Diflucan) 100 mg DAILY PO Last administered on 12/02/17at 08:40; Start 11/26/17 at 20:00; Stop 12/03/17 at 10:16; Status DC Furosemide (Lasix Inj) 40 mg DAILY IV PUSH ; Start 12/05/17 at 09:00 Furosemide 100 mg/ Sodium Chloride 100 ml @ 10 mls/hr CONTINUOUS IV Last administered on 11/27/17at 08:49; Start 11/21/17 at 11:00; Stop 11/27/17 at 09:13 ; Status DC Heparin Sodium (Porcine) (Heparin Inj) 5,000 units Q8H SQ Last administered on 12/02/17at 05:19; Start 11/15/17 at 15:00; Status Future Hold Hydrocortisone Sodium Succinate (SoluCORTEF INJ) 25 mg DAILY IV PUSH Last administered on 11/28/17at 08:54; Start 11/26/17 at 09:00; Stop 11/29/17 at 08:59 ; Status DC Insulin Human Regular (NovoLIN R SUPPLEMENTAL SCALE) 1 Q6HR SQ Last administered on 11/20/17at 17:43; Start 11/15/17 at 18:00; Stop 11/28/17 at 22:56; Status DC Lactulose (Lactulose Liq) 30 ml DAILY PRN PO SEVERE CONSITIPATION; Start at 14:00 Levofloxacin/ Dextrose 150 ml @ 100 mls/hr Q48H IV ; Start 11/17/17 at 14:00; Stop 11/17/17 at 14:00; Status DC Linezolid 300 ml @ 300 mls/hr Q12H IV Last administered on 12/03/17at 07:00; Start 11/16/17 at 07:00; Stop 12/03/17 at 10:16; Status DC Magnesium Hydroxide (Milk Of Magnesia Liq) 30 ml Q12H PRN PO Mild constipation ; Start 11/15/17 at 14:00 Magnesium Sulfate/ Dextrose 100 ml @ 100 mls/hr ONCE ONCE IV Last administered on 11/26/17at 09:20; Start 11/26/17 at 07:15; Stop 11/26/17 at 08:14 ; Status DC Metolazone (Zaroxolyn) 5 mg ONCE ONCE PO Last administered on 11/23/17at 09:57; Start 11/23/17 at 09:30; Stop 11/23/17 at 09:31; Status DC Metoprolol Tartrate (Lopressor Inj) 5 mg ONCE ONCE IV PUSH Last administered on 11/28/17at 23:39; Start 11/28/17 at 23:00; Stop 11/28/17 at 23:01; Status DC Metoprolol Tartrate (Lopressor) 12.5 mg Q12HR PO Last administered on at 19:58; Start 11/30/17 at 15:00 Metronidazole 100 ml @ 100 mls/hr Q8H IV ; Start 11/23/17 at 08:15; Stop at 08:25; Status DC Midazolam HCl (Versed Inj) 5 mg ONCE ONCE IV PUSH ; Start 11/16/17 at 16:00; Stop 11/16/17 at 16:01; Status DC Miscellaneous Information 1 [id number] Last administered on 11/15/17at 19:00; Start 11/15/17 at 14:00 Non-Formulary Medication VANCOMYCIN STOCK SOLUT... QID PO Last administered on 11/23/17at 20:13; Start 11/23/17 at 09:00; Stop 11/24/17 at 08:04; Status DC Norepinephrine Bitartrate 250 ml @ 7.5 mls/hr TITRATE PRN IV Blood pressure management Last administered on 11/15/17at 21:26; Start 11/15/17 at 12:15; Stop 11/15/17 at 22:41; Status DC Norepinephrine Bitartrate 16 mg/ Dextrose 250 ml @ 1.87 mls/hr TITRATE PRN IV Blood pressure management Last administered on 11/20/17at 06:15; Start 11/15/17 at 22:45; Stop 11/21/17 at 07:28; Status DC Nystatin (Mycostatin Cream) 1 applic Q6HR TOPICAL Last administered on at 06:15; Start 11/26/17 at 12:00 Ondansetron HCl (Zofran Inj) 4 mg Q6H PRN IV PUSH NAUSEA OR VOMITING Last administered on 11/27/17at 17:52; Start 11/15/17 at 14:00 Oseltamivir Phosphate (Tamiflu Liq) 75 mg Q12H PO Last administered on at 17:45; Start 11/15/17 at 18:00; Stop 11/16/17 at 10:12; Status DC Pharmacy Profile Note 0 ml @ 0 mls/hr UNSCH OTHER ; Start 11/15/17 at 14:00; Stop 11/15/17 at 17:23; Status DC Potassium Chloride 40 meq/ Sodium Chloride 520 ml @ 130 mls/hr ONCE ONCE IV- CENTRAL ; Start 11/23/17 at 09:00; Stop 11/23/17 at 09:21; Status DC Potassium Bicarb/ Potassium Chloride (K-Lyte Cl Eff) 50 meq ONCE ONCE PO Last administered on 11/29/17at 09:15; Start 11/29/17 at 07:30; Stop 11/29/17 at 07:43; Status DC Potassium Chloride (KCl) 20 meq ONCE ONCE PO Last administered on 11/28/17at 11 :49; Start 11/28/17 at 10:00; Stop 11/28/17 at 10:01; Status DC Propofol 100 ml @ 0 mls/hr TITRATE PRN IV SEDATION; Start 11/15/17 at 11:45; Stop 11/18/17 at 10:21; Status DC Senna/Docusate Sodium (Zelda-Colace) 1 tab BID PO Last administered on at 20:07; Start 11/15/17 at 21:00 Sennosides (Senokot) 17.2 mg Q12H PRN PO Moderate constipation; Start 11/15/17 at 14:00 Sodium Chloride 500 ml @ 500 mls/hr BOLUS ONCE IV Last administered on at 09:15; Start 11/27/17 at 09:15; Stop 11/27/17 at 11:05; Status DC Succinylcholine Chloride (Quelicin Inj) 100 mg ONCE ONCE IV PUSH ; Start at 16:00; Stop 11/16/17 at 16:01; Status DC Terbutaline Sulfate (Brethine Inj) 1 mg UNSCH PRN SQ For Extravasation; Start 11/15/17 at 12:45 Vancomycin HCl (VANCOMYCIN for oral use only) 125 mg QID PO ; Start 11/23/17 at 09:00; Stop 11/23/17 at 09:00; Status DC Vancomycin HCl (Vancomycin 25 Mg/ml Liq) 125 mg QID PO Last administered on at 19:58; Start 11/24/17 at 09:00; Stop 12/14/17 at 08:59 Vancomycin HCl 500 mg/Sodium Chloride 100 ml @ 200 mls/hr ONCE ONCE IV ; Start 11/15/17 at 15:00; Stop 11/15/17 at 15:29; Status DC Vancomycin HCl 1000 mg/Sodium Chloride 250 ml @ 250 mls/hr ONCE ONCE IV Last administered on 11/15/17at 12:45; Start 11/15/17 at 12:15; Stop 11/15/17 at 13:14; Status DC Vasopressin 40 units/Dextrose 100 ml @ 6 mls/hr [id number] IV Last administered on 11/20/17at 10:28; Start 11/15/17 at 14:12; Stop 11/21/17 at 07:28; Status DC A/P Assessment and Plan Metabolic Encephalopathy - improved Chronic Pain - Awake and alert - Lortab 5/325 mg PRN Acute hypoxic and hypercarbic respiratory failure- Extubated 11/22 Healthcare Associated Pneumonia Continue with oxygen keep sat >92% Bronchodilators, IS, NIPPV PRN for resp distress - sputum culture: MRSA CT chest 11/26: Improvement in bilateral lung consolidation since November 15. small bilateral effusions, right greater than left. s/p Septic Shock - Atrial fibrillation with rapid ventricular response - continue metoprolol and cardizem. check echo. Acute Kidney Injury - resolving. Acute pyelonephritis Metabolic alkalosis secondary to intravascular volume contraction Monitor renal function, I/O's, avoid nephrotoxins On IV Lasix and Diuril - s/p Emergent cysto with stent- f/u with Urology as outpatient. Renal is following- Dr. Lopez. Super Morbid Obesity Lactic Acidosis- cleared Anion-gap Metabolic acidosis- resolved. Acute intravascular volume overload Severe acute protein calorie malnutrition -Pured diet, poor oral intake -Pepcid for GI prophylaxis -CT abdomen/pelvis: No abscess or free air History of prior MRSA pneumonia Acute pyelonephritis Pseudomonas bacteremia Positive C-diff - ID on board. - Abx per Dr. Cartagena. Zyvox, Zerbaxa discontinued on 12/03 per ID, Continue PO Vanco. -11/25 urine cx : C. Albicans -11/20 BC :NGTD -11/17 BC: Coag negative staph 10/18 bottles..likely contaminant - 11/17 Urine cx :Pseudomonas - 11/15 blood cultures: pseudomonas - 11/15 urine culture: pseudomonas - 2/ sputum culture: MRSA thrombocytopenia heparin on hold- HIT ab negative- continue to monitor- will consider hematology consult with further decline. PT/OT evaluate and treat Prophylaxis: SCDs, SQH held for thrombocytopenia, HIT ab negative. Vianey Alvarez MD Dec 05, 2017 09:15
[2017-12-05] MEDS: METOPROLOL TARTRATE 25 MG TAB PO SCH ×2 (10:47→21:55)
[2017-12-05] MEDS: VANCOMYCIN 25 MG/ML SUSP 100 ML BOTTLE PO SCH ×4 (10:48→21:55)
[2017-12-05] MEDS: FAMOTIDINE 20 MG/2 ML VIAL IV PUSH SCH ×2 (10:48→21:56)
[2017-12-05] MEDS: CHLOROTHIAZIDE SOD 500 MG VIAL IV SCH (10:49)
--- NOTE | 2017-12-05 12:16 | HHI.NPPN ---
Subjective General Problems: Edema Renal Failure: Acute Interval History Moved out of [facility]. Sleeping, labs from today are not available. (Suad Lucas) Review of Systems General General Remarks difficult to ascertain. (Suad Lucas) Cardiovascular Cardiac: Edema (Suad Lucas) Objective Data Data Vital Signs Date Time Temp Pulse Resp B/P (MAP) Pulse Ox O2 Delivery O2 Flow Rate FiO2 12/05/17 08:00 97.1 103 18 129/58 (81) 100 12/05/17 06:25 93 16 123/58 (79) 99 12/05/17 04:00 97.3 118 18 118/72 (87) 96 12/05/17 04:00 106 12/05/17 00:00 101 12/05/17 00:00 97.9 108 16 133/71 (91) 95 12/04/17 20:05 Nasal Cannula 2.00 12/04/17 20:00 98.3 95 20 126/58 (80) 99 12/04/17 20:00 100 12/04/17 16:00 97.9 92 16 135/56 (82) 100 12/04/17 14:00 99 (Suad Lucas) -: 12/04/17 0350 12/04/17 0350 Imaging Last 72 hours Impressions Chest X-Ray 12/03/17 0000 Signed Impressions: Service Date/Time: Sunday, December 03, 2017 08:10 - CONCLUSION: Persistent, but improved, left lower lobe consolidation. Dorian Vasquez MD Tubes & Lines: Garcia (Suad Lucas) Physical Exam General Appearance: Well Nourished, No Acute Distress, Comfortable, Obese Appearance Remarks head facing left, sternal rub to open eyes (Suad Lucas) Eyes Eye Exam: Pupils Equal (Suad Lucas) Throat Throat Exam: Oral Mucosa [place] & Moist (Suad Lucas) Neck Neck Exam: Neck Supple (Suad Lucas) Pulmonary Resp Exam: Breath Sounds Equal, No Distress, Crackles (Suad Lucas) Cardiology CV Exam: Regular, Good Perfusion, Tachycardia (Suad Lucas) Gastrointestinal/Abdomen GI Exam: Soft, Non-Tender, Bowel Sounds Present, Positive Bowel Movement GI Remarks morbidly obese (Suad Lucas) Musculoskeletal MS Exam: Joints Intact, Normal Tone, Unable to Ambulate (Suad Lucas) Integumentary Skin Exam: Warm, Dry (Suad Lucas) Extremeties Extremities Exam: Moderate Edema, Pitting Edema, Dependent Edema Extremeties Remarks extensive edema, anasarca , 4+ pitting (Suad Lucas) Neurologic Neuro Exam: Alert, Awake, Oriented, Speech Clear (Suad Lucas) Psychiatric Psych Exam: Appropriate Responses (Suad Lucas) Assessment/Plan Discussed Condition With: Patient Assessment Summary: FREDDY/Acute Renal Failure, Fluid/Volume Overload, Hypotension Electrolyte Assessment: Hypokalemia Problem List: (1) FREDDY (acute kidney injury) ICD Codes: N17.9 - Acute kidney failure, unspecified Plan: In January 2017 her renal function was normal. Had FREDDY in September, creatinine at discharge was 1.8 Obstructive uropathy, s/p R ureteral stent placement on the 16 of November. FREDDY also due to urosepsis with renal hyperperfusion Renal function had been improving. Today's labs are not available. Needs continued diuresis. Change to PO. On Lasix 40 daily and Diuril 250, change to daily. Free water intake encouraged. Have asked the nurse to given water Q2hrs. On D5@ 30 ml/hr.Stop fluids when sodium improves. Would prefer to remove garcia but reportedly has skin breakdown and due to size, mobility is difficult. Treated for Yuly UTI. Repeat labs daily. She is non oliguric. (2) Tachycardia ICD Codes: R00.0 - Tachycardia, unspecified Plan: Improved. A fib, On Cardizem. Also PO Lopressor, 12.5 BID. (3) Pneumonia ICD Codes: J18.9 - Pneumonia, unspecified organism Status: Acute Plan: ID following, off antibiotics. (4) Septic shock ICD Codes: A41.9 - Sepsis, unspecified organism; R65.21 - Severe sepsis with septic shock Plan: Pseudomonas sepsis Off all antibiotic therapy TLC has been removed. Continue supportive care (5) Respiratory failure ICD Codes: J96.90 - Respiratory failure, unspecified, unspecified whether with hypoxia or hypercapnia Plan: Successfully extubated Monitor respiratory status Plan We will sign off at this time. Call us if needed. (Suad Lucas) Plan patient was seen and examined. Agree with above assessment and plan. (Mohinder Lopez MD) Suad Lucas Dec 05, 2017 12:16 Mohinder Lopez MD Dec 05, 2017 16:08
[2017-12-05 15:55] LABS: HEMATOCRIT 24.2 % (35.0-46.0); HEMOGLOBIN 7.7 GM/DL (11.6-15.3); MEAN CELL VOLUME 89.2 FL (80.0-100.0); MEAN CORPUSCULAR HEMOGLOBIN 28.5 PG (27.0-34.0); MEAN PLATELET VOLUME 8.3 FL (7.0-11.0); PLATELET COUNT 62 TH/MM3 (150-450); RED BLOOD COUNT 2.71 MIL/MM3 (4.00-5.30); RED CELL DISTRIBUTION WIDTH 20.6 % (11.6-17.2); WHITE BLOOD COUNT 7.4 TH/MM3 (4.0-11.0)
[2017-12-05 16:42] LABS: CALCIUM 8.8 MG/DL (8.5-10.1); CREATININE 1.63 MG/DL (0.50-1.00)
[2017-12-05 16:43] LABS: BICARBONATE 34.2 MEQ/L (21.0-32.0)
[2017-12-05] MEDS: DEXTROSE 5% IN WATE 1000ML INJ 1,000 ML IV SCH (21:53)
[2017-12-06] VITALS: BP 95/53; PULSE 89; RESP 18; TEMP 98.4; O2SAT 92
[2017-12-06 04:00] VITALS: BP 100/58; PULSE 100; PULSE 95; RESP 18; TEMP 97.5; O2SAT 94
[2017-12-06] MEDS: DILTIAZEM HCL 60 MG TAB PO SCH ×3 (04:42→18:29)
[2017-12-06] MEDS: NYSTATIN 100,000 UNIT/GM CREAM 15 GM TOPICAL SCH ×3 (04:42→18:30)
[2017-12-06 08:00] VITALS: BP 103/55; PULSE 93; RESP 18; TEMP 96.9; O2SAT 97
[2017-12-06] MEDS: CHLORHEXIDINE 0.12% (ORAL KIT) 15 ML CUP MT SCH ×2 (08:00→19:57)
[2017-12-06] MEDS: DOCUSATE SODIUM 50 MG/SENNA 8.6 MG TAB PO SCH ×2 (09:00→19:58)
[2017-12-06] MEDS: FUROSEMIDE 40 MG TAB PO SCH (10:33)
[2017-12-06] MEDS: METOPROLOL TARTRATE 25 MG TAB PO SCH ×2 (10:33→19:59)
[2017-12-06] MEDS: CHLOROTHIAZIDE 250 MG TAB PO SCH (10:33)
[2017-12-06] MEDS: VANCOMYCIN 25 MG/ML SUSP 100 ML BOTTLE PO SCH ×4 (10:34→19:59)
[2017-12-06] MEDS: FAMOTIDINE 20 MG/2 ML VIAL IV PUSH SCH ×2 (10:34→19:59)
[2017-12-06 12:00] VITALS: BP 109/64; PULSE 106; RESP 17; TEMP 97.5; O2SAT 94
[2017-12-06] MEDS: DEXTROSE 5% IN WATE 1000ML INJ 1,000 ML IV SCH (13:00)
--- NOTE | 2017-12-06 13:12 | HHI.PR ---
Subjective Remarks in no acute distress. is more alert today. denies pain. no fever. d/w the RN. Objective Vitals Vital Signs Date Time Temp Pulse Resp B/P (MAP) Pulse Ox O2 Delivery O2 Flow Rate FiO2 12/06/17 12:00 97.5 106 17 109/64 (79) 94 12/06/17 08:00 96.9 93 18 103/55 (71) 97 12/06/17 04:00 97.5 95 18 100/58 (72) 94 12/06/17 04:00 100 12/06/17 00:00 98.4 89 18 95/53 (67) 92 12/05/17 20:00 106 12/05/17 20:00 96.0 107 19 108/53 (71) 96 12/05/17 20:00 Nasal Cannula 3.00 Humidified 12/05/17 16:00 97.5 113 17 118/61 (80) 99 I/O 12/05/17 12/05/17 12/05/17 12/06/17 12/06/17 12/06/17 07:00 15:00 23:00 07:00 15:00 23:00 Intake Total 960 ml Output Total 650 ml 1000 ml 200 ml Balance -650 ml -40 ml -200 ml Intake Oral 960 ml Output Urine Total 650 ml 1000 ml 200 ml # Bowel Movements 3 0 Result Diagram: 12/05/17 1517 12/05/17 1517 Imaging Last Impressions Chest X-Ray 12/03/17 0000 Signed Impressions: Service Date/Time: Sunday, December 03, 2017 08:10 - CONCLUSION: Persistent, but improved, left lower lobe consolidation. Dorian Vasquez MD Chest CT 11/26/17 0000 Signed Impressions: Service Date/Time: Sunday, November 26, 2017 17:16 - CONCLUSION: 1. Improvement in bilateral lung consolidation since November 15. Interval development of small bilateral effusions, right greater than left. Sachin Gonzalez MD Abdomen/Pelvis CT 11/26/17 0000 Signed Impressions: Service Date/Time: Sunday, November 26, 2017 17:16 - CONCLUSION: Very limited exam because of arms and body habitus. I don't see abscess or free air. Double-J stent on the right. Joseph Baeza MD FACR Abdomen X-Ray 11/17/17 0000 Signed Impressions: Service Date/Time: Friday, November 17, 2017 19:04 - CONCLUSION: The proximal tip of the double-J stent is either in the expected region of the right renal pelvis or proximal ureter. Allen Mensah MD Head CT 11/15/17 1134 Signed Impressions: Service Date/Time: November 14:13 - CONCLUSION: 1. No acute hemorrhage or mass effect. 2. Atrophy and chronic small vessel ischemic change 3. Air-fluid levels in the maxillary sinuses most characteristic of acute sinusitis. Chintan Marshall MD Objective Remarks GENERAL: morbidly obese, in no apparent distress. CARDIOVASCULAR: Regular rate and regular rhythm without murmurs, gallops, or rubs. RESPIRATORY: Clear to auscultation. Breath sounds equal bilaterally. No wheezes , rales, or rhonchi. GASTROINTESTINAL: Abdomen soft, non-tender, nondistended. Normal, active bowel sounds MUSCULOSKELETAL: Extremities without clubbing, cyanosis, or edema. NEURO: Alert & Oriented x4 to person, place, time, situation. Moves all ext x4 Procedures endotracheal intubation/ cystoscopy and stent placement. Medications and IVs Inpatient Medications Acetaminophen (Tylenol Supp) 650 mg ONCE ONCE RECTAL Last administered on at 12:39; Start 11/15/17 at 12:30; Stop 11/15/17 at 12:31; Status DC Acetaminophen (Tylenol) 650 mg Q6H PRN PO PAIN 1-6 AND/OR FEVER >101F Last administered on 11/27/17at 16:05; Start 11/15/17 at 14:00 Acetaminophen/ Hydrocodone Bitart ([place] 5-325 Mg) 1 tab Q4H PRN PO PAIN SCALE 7 TO 10 Last administered on 12/02/17at 18:11; Start 11/24/17 at 18:15 Acetazolamide Sodium (Diamox Inj) 500 mg Q24H IV Last administered on at 08:25; Start 11/30/17 at 09:00; Stop 12/01/17 at 07:34; Status DC Albumin Human 100 ml @ 60 mls/hr ONCE ONCE IV Last administered on 11/28/17at 23:38; Start 11/28/17 at 23:00; Stop 11/29/17 at 00:39; Status DC Albuterol/ Ipratropium (Duoneb Neb) 1 ampule Q4HR NEB NEB Last administered on 11/26/17at 11:16; Start 11/22/17 at 12:00; Stop 11/26/17 at 11:59; Status DC Amiodarone HCl 150 mg/Dextrose 103 ml @ 600 mls/hr Q11M ONCE IV Last administered on 11/15/17at 13:24; Start 11/15/17 at 13:03; Stop 11/15/17 at 13:13; Status DC Amiodarone HCl 200 mg/Dextrose 101 ml @ 202 mls/hr Q12H IV Last administered on 11/19/17at 12:00; Start 11/18/17 at 12:00; Stop 11/19/17 at 17:52; Status DC Amiodarone HCl 450 mg/Dextrose 250 ml @ 33.33 mls/ hr Q7H31M PRN IV Per Protocol Last administered on 11/15/17at 13:51; Start 11/15/17 at 13:13; Stop at 20:08; Status DC Amiodarone HCl 450 mg/Sodium Chloride 250 ml @ 33.33 mls/ hr Q7H31M PRN IV Per Protocol Last administered on 11/18/17at 05:03; Start 11/15/17 at 20:15; Stop at 10:21; Status DC Azithromycin 500 mg/Sodium Chloride 250 ml @ 250 mls/hr Q24H IV Last administered on 11/17/17at 08:10; Start 11/16/17 at 08:00; Stop 11/17/17 at 09:45; Status DC Aztreonam 1000 mg/ Sodium Chloride 100 ml @ 200 mls/hr Q8H IV ; Start 11/15/17 at 22:00; Stop 11/15/17 at 22:00; Status DC Bisacodyl (Dulcolax Supp) 10 mg DAILY PRN RECTAL SEVERE CONSITIPATION; Start at 14:00 Cefazolin Sodium (Ancef Inj) 3,000 mg ONCE ONCE IV ; Start 11/16/17 at 14:45; Stop 11/16/17 at 15:34; Status DC Cefazolin Sodium 3000 mg/Sodium Chloride 130 ml @ 200 mls/hr DIAL SCREW ASSEMBLER IV ; Start 11/16/17 at 15:45; Stop 11/19/17 at 15:44; Status DC Ceftazidime 2000 mg/Sodium Chloride 100 ml @ 200 mls/hr Q8H IV Last administered on 11/26/17at 09:21; Start 11/25/17 at 18:00; Stop 11/26/17 at 09:50 ; Status DC Ceftolozane/ Tazobactam 1500 mg/Sodium Chloride 100 ml @ 100 mls/hr Q8H IV Last administered on 12/02/17at 18:25; Start 11/26/17 at 11:00; Stop 12/03/17 at 10:16; Status DC Ceftolozane/ Tazobactam 375 mg/ Sodium Chloride 100 ml @ 100 mls/hr Q8H IV Last administered on 11/19/17at 13:14; Start 11/15/17 at 17:30; Stop 11/19/17 at 14: 37; Status DC Chlorhexidine Gluconate (Chlorhexidine 2% Cloth) 3 pack UNSCH PRN TOP HYGIENIC CARE; Start 11/15/17 at 14:00 Chlorhexidine Gluconate (Peridex 0.12% Liq) 15 ml BID@08,20 MT Last administered on 12/01/17at 08:00; Start 11/16/17 at 20:00 Chlorothiazide (Diuril) 250 mg DAILY PO Last administered on 12/06/17at 10:33; Start 12/06/17 at 09:00 Chlorothiazide Sodium (Diuril Inj) 250 mg BID IV Last administered on at 10:49; Start 12/04/17 at 21:00; Stop 12/05/17 at 12:18; Status DC Clindamycin/ Sodium Chloride 50 ml @ 100 mls/hr Q6H IV Last administered on 11/16/17at 05:05; Start 11/15/17 at 18:00; Stop 11/16/17 at 06:38; Status DC Dexmedetomidine HCl 1000 mcg/ Sodium Chloride 250 ml @ 9.07 mls/hr TITRATE PRN IV SEDATION Last administered on 11/19/17at 23:52; Start 11/19/17 at 08:15; Stop 11/22/17 at 09:38; Status DC Dexmedetomidine HCl 200 mcg/ Sodium Chloride 52 ml @ 9.43 mls/hr TITRATE PRN IV SEDATION; Start 11/18/17 at 10:30; Stop 11/18/17 at 11:03; Status DC Dextrose 1,000 ml @ 30 mls/hr Q24H IV Last administered on 12/05/17at 21:53; Start 12/04/17 at 13:00 Dextrose (D50w (Vial) Inj) 25 ml UNSCH PRN IV PUSH HYPOGLYCEMIA-SEE COMMENTS; Start 11/15/17 at 14:00 Diatrizoate Meglum/ Diatrizoate Sod ( Gastroview Liq) 18 ml ONCE ONCE PO Last administered on 11/26/17at 11:34; Start 11/26/17 at 09:59; Stop 11/26/17 at 11:19; Status DC Digoxin (Lanoxin Inj) 0.25 mg STAT ONCE IV PUSH Last administered on 11/15/17at 17:54; Start 11/15/17 at 16:15; Stop 11/15/17 at 17:27; Status DC Diltiazem HCl (Cardizem Inj) 10 mg BOLUS ONCE IV PUSH ; Start 11/15/17 at 12:30 ; Stop 11/15/17 at 12:31; Status DC Diltiazem HCl (Cardizem) 60 mg Q6HR PO Last administered on 12/06/17at 12:53; Start 11/29/17 at 06:15 Diltiazem HCl 125 mg/Sodium Chloride 125 ml @ 5 mls/hr TITRATE PRN IV tachycardia Last administered on 11/17/17at 10:26; Start 11/15/17 at 12:30; Stop at 10:21; Status DC Dopamine HCl/ Dextrose 500 ml @ 0 mls/hr TITRATE PRN IV Blood Pressure Management; Start 11/15/17 at 12:45; Stop 11/18/17 at 10:21; Status DC Epinephrine HCl 2 mg/Dextrose 252 ml @ 22.68 mls/ hr TITRATE PRN IV Blood Pressure Management Last administered on 11/15/17at 19:34; Start 11/15/17 at 15:45 ; Stop 11/15/17 at 22:43; Status DC Epinephrine HCl 8 mg/Dextrose 250 ml @ 5.62 mls/hr TITRATE PRN IV Blood Pressure Management Last administered on 11/15/17at 23:15; Start 11/15/17 at 22:45 ; Stop 11/18/17 at 10:21; Status DC Famotidine (Pepcid Inj) 10 mg Q12HR IV PUSH Last administered on 12/06/17at 10: 34; Start 11/15/17 at 21:00 Fentanyl Citrate 250 ml @ 5 mls/hr TITRATE PRN IV SEDATION; Start 11/16/17 at 16 :00; Stop 11/18/17 at 10:21; Status DC Fluconazole (Diflucan) 100 mg DAILY PO Last administered on 12/02/17at 08:40; Start 11/26/17 at 20:00; Stop 12/03/17 at 10:16; Status DC Furosemide (Lasix Inj) 40 mg DAILY IV PUSH Last administered on 12/05/17at 10:49 ; Start 12/05/17 at 09:00; Stop 12/05/17 at 12:18; Status DC Furosemide (Lasix) 40 mg DAILY PO Last administered on 12/06/17at 10:33; Start 12/06/17 at 09:00 Furosemide 100 mg/ Sodium Chloride 100 ml @ 10 mls/hr CONTINUOUS IV Last administered on 11/27/17at 08:49; Start 11/21/17 at 11:00; Stop 11/27/17 at 09:13 ; Status DC Heparin Sodium (Porcine) (Heparin Inj) 5,000 units Q8H SQ Last administered on 12/02/17at 05:19; Start 11/15/17 at 15:00; Status Future Hold Hydrocortisone Sodium Succinate (SoluCORTEF INJ) 25 mg DAILY IV PUSH Last administered on 11/28/17at 08:54; Start 11/26/17 at 09:00; Stop 11/29/17 at 08:59 ; Status DC Insulin Human Regular (NovoLIN R SUPPLEMENTAL SCALE) 1 Q6HR SQ Last administered on 11/20/17at 17:43; Start 11/15/17 at 18:00; Stop 11/28/17 at 22:56; Status DC Lactulose (Lactulose Liq) 30 ml DAILY PRN PO SEVERE CONSITIPATION; Start at 14:00 Levofloxacin/ Dextrose 150 ml @ 100 mls/hr Q48H IV ; Start 11/17/17 at 14:00; Stop 11/17/17 at 14:00; Status DC Linezolid 300 ml @ 300 mls/hr Q12H IV Last administered on 12/03/17at 07:00; Start 11/16/17 at 07:00; Stop 12/03/17 at 10:16; Status DC Magnesium Hydroxide (Milk Of Magnesia Liq) 30 ml Q12H PRN PO Mild constipation ; Start 11/15/17 at 14:00 Magnesium Sulfate/ Dextrose 100 ml @ 100 mls/hr ONCE ONCE IV Last administered on 11/26/17at 09:20; Start 11/26/17 at 07:15; Stop 11/26/17 at 08:14 ; Status DC Metolazone (Zaroxolyn) 5 mg ONCE ONCE PO Last administered on 11/23/17at 09:57; Start 11/23/17 at 09:30; Stop 11/23/17 at 09:31; Status DC Metoprolol Tartrate (Lopressor Inj) 5 mg ONCE ONCE IV PUSH Last administered on 11/28/17at 23:39; Start 11/28/17 at 23:00; Stop 11/28/17 at 23:01; Status DC Metoprolol Tartrate (Lopressor) 12.5 mg Q12HR PO Last administered on at 10:33; Start 11/30/17 at 15:00 Metronidazole 100 ml @ 100 mls/hr Q8H IV ; Start 11/23/17 at 08:15; Stop at 08:25; Status DC Midazolam HCl (Versed Inj) 5 mg ONCE ONCE IV PUSH ; Start 11/16/17 at 16:00; Stop 11/16/17 at 16:01; Status DC Miscellaneous Information 1 [id number] Last administered on 11/15/17at 19:00; Start 11/15/17 at 14:00 Non-Formulary Medication VANCOMYCIN STOCK SOLUT... QID PO Last administered on 11/23/17at 20:13; Start 11/23/17 at 09:00; Stop 11/24/17 at 08:04; Status DC Norepinephrine Bitartrate 250 ml @ 7.5 mls/hr TITRATE PRN IV Blood pressure management Last administered on 11/15/17at 21:26; Start 11/15/17 at 12:15; Stop 11/15/17 at 22:41; Status DC Norepinephrine Bitartrate 16 mg/ Dextrose 250 ml @ 1.87 mls/hr TITRATE PRN IV Blood pressure management Last administered on 11/20/17at 06:15; Start 11/15/17 at 22:45; Stop 11/21/17 at 07:28; Status DC Nystatin (Mycostatin Cream) 1 applic Q6HR TOPICAL Last administered on at 12:53; Start 11/26/17 at 12:00 Ondansetron HCl (Zofran Inj) 4 mg Q6H PRN IV PUSH NAUSEA OR VOMITING Last administered on 11/27/17at 17:52; Start 11/15/17 at 14:00 Oseltamivir Phosphate (Tamiflu Liq) 75 mg Q12H PO Last administered on at 17:45; Start 11/15/17 at 18:00; Stop 11/16/17 at 10:12; Status DC Pharmacy Profile Note 0 ml @ 0 mls/hr UNSCH OTHER ; Start 11/15/17 at 14:00; Stop 11/15/17 at 17:23; Status DC Potassium Chloride 40 meq/ Sodium Chloride 520 ml @ 130 mls/hr ONCE ONCE IV- CENTRAL ; Start 11/23/17 at 09:00; Stop 11/23/17 at 09:21; Status DC Potassium Bicarb/ Potassium Chloride (K-Lyte Cl Eff) 50 meq ONCE ONCE PO Last administered on 11/29/17at 09:15; Start 11/29/17 at 07:30; Stop 11/29/17 at 07:43; Status DC Potassium Chloride (KCl) 20 meq ONCE ONCE PO Last administered on 11/28/17at 11 :49; Start 11/28/17 at 10:00; Stop 11/28/17 at 10:01; Status DC Propofol 100 ml @ 0 mls/hr TITRATE PRN IV SEDATION; Start 11/15/17 at 11:45; Stop 11/18/17 at 10:21; Status DC Senna/Docusate Sodium (Zelda-Colace) 1 tab BID PO Last administered on at 21:55; Start 11/15/17 at 21:00 Sennosides (Senokot) 17.2 mg Q12H PRN PO Moderate constipation; Start 11/15/17 at 14:00 Sodium Chloride 500 ml @ 500 mls/hr BOLUS ONCE IV Last administered on at 09:15; Start 11/27/17 at 09:15; Stop 11/27/17 at 11:05; Status DC Succinylcholine Chloride (Quelicin Inj) 100 mg ONCE ONCE IV PUSH ; Start at 16:00; Stop 11/16/17 at 16:01; Status DC Terbutaline Sulfate (Brethine Inj) 1 mg UNSCH PRN SQ For Extravasation; Start 11/15/17 at 12:45 Vancomycin HCl (VANCOMYCIN for oral use only) 125 mg QID PO ; Start 11/23/17 at 09:00; Stop 11/23/17 at 09:00; Status DC Vancomycin HCl (Vancomycin 25 Mg/ml Liq) 125 mg QID PO Last administered on at 12:52; Start 11/24/17 at 09:00; Stop 12/14/17 at 08:59 Vancomycin HCl 500 mg/Sodium Chloride 100 ml @ 200 mls/hr ONCE ONCE IV ; Start 11/15/17 at 15:00; Stop 11/15/17 at 15:29; Status DC Vancomycin HCl 1000 mg/Sodium Chloride 250 ml @ 250 mls/hr ONCE ONCE IV Last administered on 11/15/17at 12:45; Start 11/15/17 at 12:15; Stop 11/15/17 at 13:14; Status DC Vasopressin 40 units/Dextrose 100 ml @ 6 mls/hr [id number] IV Last administered on 11/20/17at 10:28; Start 11/15/17 at 14:12; Stop 11/21/17 at 07:28; Status DC A/P Assessment and Plan Metabolic Encephalopathy - improved Chronic Pain - Awake and alert - Lortab 5/325 mg PRN Acute hypoxic and hypercarbic respiratory failure- Extubated 11/22 Healthcare Associated Pneumonia Continue with oxygen keep sat >92% Bronchodilators, IS, - sputum culture: MRSA CT chest 11/26: Improvement in bilateral lung consolidation since November 15. small bilateral effusions, right greater than left. s/p Septic Shock - Atrial fibrillation with rapid ventricular response - continue metoprolol and cardizem. echo pending. Acute Kidney Injury - resolving. Acute pyelonephritis Metabolic alkalosis secondary to intravascular volume contraction Monitor renal function, I/O's, avoid nephrotoxins On IV Lasix and Diuril - s/p Emergent cysto with stent- f/u with Urology as outpatient. Renal is following- Dr. Lopez. -will dc garcia when more mobile. Super Morbid Obesity Lactic Acidosis- cleared Anion-gap Metabolic acidosis- resolved. Acute intravascular volume overload Severe acute protein calorie malnutrition -Pured diet, poor oral intake -Pepcid for GI prophylaxis -CT abdomen/pelvis: No abscess or free air History of prior MRSA pneumonia Acute pyelonephritis Pseudomonas bacteremia Positive C-diff - evaluated by ID. - Abx per Dr. Cartagena. Zyvox, Zerbaxa discontinued on 12/03 per ID, Continue PO Vanco. -11/25 urine cx : C. Albicans -11/20 BC :NGTD -11/17 BC: Coag negative staph 10/18 bottles..likely contaminant - 11/17 Urine cx :Pseudomonas - 2/ blood cultures: pseudomonas - 2/ urine culture: pseudomonas - 2/1 sputum culture: MRSA thrombocytopenia- trending down anemia heparin on hold- HIT ab negative- continue to monitor- will consider hematology consult with further decline. check iron panel. consult hematology. PT/OT evaluate and treat Prophylaxis: SCDs, SQH held for thrombocytopenia, HIT ab negative. Pepcid Discharge Planning awaiting hematology evaluation and echo. Vianey Dupree MD Dec 06, 2017 13:12
--- NOTE | 2017-12-06 14:37 | HHI.NPPN ---
Subjective General Problems: Edema Renal Failure: Acute Additional Remarks Patient is alert, has mild SOB, now getting Echo., not in distress. Review of Systems General General Remarks difficult to ascertain. Cardiovascular Cardiac: Edema Objective Data Data 12/06/17 12/07/17 19:00 07:00 Output Total 200 ml Balance -200 ml Output Urine Total 200 ml # Bowel Movements 0 Vital Signs Date Time Temp Pulse Resp B/P (MAP) Pulse Ox O2 Delivery O2 Flow Rate FiO2 12/06/17 12:00 97.5 106 17 109/64 (79) 94 12/06/17 08:00 96.9 93 18 103/55 (71) 97 12/06/17 04:00 97.5 95 18 100/58 (72) 94 12/06/17 04:00 100 12/06/17 00:00 98.4 89 18 95/53 (67) 92 12/05/17 20:00 106 12/05/17 20:00 96.0 107 19 108/53 (71) 96 12/05/17 20:00 Nasal Cannula 3.00 Humidified 12/05/17 16:00 97.5 113 17 118/61 (80) 99 -: 12/05/17 1517 12/05/17 1517 Tubes & Lines: Solitario Physical Exam General Appearance: Well Nourished, No Acute Distress, Comfortable, Obese Eyes Eye Exam: Pupils Equal Throat Throat Exam: Oral Mucosa [place] & Moist Neck Neck Exam: Neck Supple Pulmonary Resp Exam: Breath Sounds Equal, No Distress, Crackles Cardiology CV Exam: Regular, Good Perfusion, Tachycardia Gastrointestinal/Abdomen GI Exam: Soft, Non-Tender, Bowel Sounds Present, Positive Bowel Movement Musculoskeletal MS Exam: Joints Intact, Normal Tone, Unable to Ambulate Integumentary Skin Exam: Warm, Dry Extremeties Extremities Exam: Moderate Edema, Pitting Edema, Dependent Edema Neurologic Neuro Exam: Alert, Awake, Oriented, Speech Clear Psychiatric Psych Exam: Appropriate Responses Assessment/Plan Discussed Condition With: Patient Assessment Summary: FREDDY/Acute Renal Failure, Fluid/Volume Overload, Hypotension Electrolyte Assessment: Hypokalemia Problem List: (1) FREDDY (acute kidney injury) ICD Codes: N17.9 - Acute kidney failure, unspecified Plan: In January 2017 her renal function was normal. Had FREDDY in September, creatinine at discharge was 1.8 Obstructive uropathy, s/p R ureteral stent placement on the 16 of November. FREDDY also due to urosepsis with renal hyperperfusion Renal function had been improving. Today's labs are not available. Needs continued diuresis. Change to PO. On Lasix 40 daily and Diuril 250, change to daily. Free water intake encouraged. Have asked the nurse to given water Q2hrs. On D5@ 30 ml/hr.Stop fluids when sodium improves. Would prefer to remove Solitario but reportedly has skin breakdown and due to size, mobility is difficult. Treated for Yuly UTI. Creatinine was better yesterday, 1.6 and K was low. Continue Lasix, check BMP in AM. (2) Tachycardia ICD Codes: R00.0 - Tachycardia, unspecified Plan: Improved. A fib, On Cardizem. Also PO Lopressor, 12.5 BID. (3) Pneumonia ICD Codes: J18.9 - Pneumonia, unspecified organism Status: Acute Plan: ID following, off antibiotics. (4) Septic shock ICD Codes: A41.9 - Sepsis, unspecified organism; R65.21 - Severe sepsis with septic shock Plan: Pseudomonas sepsis Off all antibiotic therapy TLC has been removed. Continue supportive care (5) Respiratory failure ICD Codes: J96.90 - Respiratory failure, unspecified, unspecified whether with hypoxia or hypercapnia Plan: Successfully extubated Monitor respiratory status Plan patient was seen and examined. Agree with above assessment and plan. Shey Marcelino MD Dec 06, 2017 14:37
[2017-12-06 15:01] LABS: AUTOMATED NEUTROPHIL # 4.5 TH/MM3 (1.8-7.7); BASOPHIL % 0.5 % (0.0-2.0); EOSINOPHIL # 0.3 TH/MM3 (0-0.4); EOSINOPHIL % 4.9 % (0.0-4.0); HEMATOCRIT 23.8 % (35.0-46.0); HEMOGLOBIN 7.7 GM/DL (11.6-15.3); LYMPH % 16.7 % (9.0-44.0); LYMPHOCYTE # 1.2 TH/MM3 (1.0-4.8); MEAN CELL VOLUME 88.4 FL (80.0-100.0); MEAN CORPUSCULAR HEMOGLOBIN 28.4 PG (27.0-34.0); MEAN CORPUSCULAR HGB CONC 32.1 % (32.0-36.0); MEAN PLATELET VOLUME 8.6 FL (7.0-11.0); MONO % 12.2 % (0.0-8.0); MONOCYTE # 0.8 TH/MM3 (0-0.9); NEUT % 65.7 % (16.0-70.0); PLATELET COUNT 63 TH/MM3 (150-450); RED BLOOD COUNT 2.69 MIL/MM3 (4.00-5.30); RED CELL DISTRIBUTION WIDTH 19.5 % (11.6-17.2); WHITE BLOOD COUNT 6.9 TH/MM3 (4.0-11.0)
[2017-12-06 15:11] LABS: % SATURATION IRON PROFILE 27.7 % (20-50); IRON (FE) 52 MCG/DL (50-170); TOTAL IRON BINDING CAPACITY 188 MCG/DL (250-450)
[2017-12-06 15:13] LABS: FERRITIN 346 NG/ML (8-252)
[2017-12-06 16:00] VITALS: BP 129/56; PULSE 96; RESP 18; TEMP 98.7; O2SAT 93
[2017-12-06 16:05] LABS: OVALOCYTES 1+ (NORMAL); STOMATOCYTES 3+ (NORMAL)
--- NOTE | 2017-12-06 19:18 | ECHRPT ---
Indication: ATRIAL FIB/FLUTTER CONCLUSIONS Normal left ventricular size. Wall thickness is measured at the upper limits of normal. The left ventricular systolic function is low normal with an estimated ejection fraction in the rang e of 50- 55%. The left atrial size is mildly dilated. The right atrial size is moderately dilated. There is trace tricuspid valve regurgitation. BP: 129 / 58 HR: 103 Rhythm: Atrial fibrillation, Atrial flut ter MEASUREMENTS (Male / Female) Normal Values Technical Quality:Fair 2D ECHO LV Diastolic Diameter PLAX 4.0 cm 4.2 - 5.9 / 3.9 - 5.3 cm LV Systolic Diameter PLAX 3.6 cm IVS Diastolic Thickness 1.0 cm 0.6 - 1.0 / 0.6 - 0.9 cm LVPW Diastolic Thickness 1.0 cm 0.6 - 1.0 / 0.6 - 0.9 cm LV Relative Wall Thickness 0.5 RV Internal Dim ED PLAX 3.2 cm LVOT Diameter 2.0 cm Aortic Root Diameter 3.3 cm LA Systolic Diameter LX 5.3 cm 3.0 - 4.0 / 2.7 - 3.8 cm M-MODE AV Cusp Separation MM 1.9 cm DOPPLER LVOT Peak Velocity 63.9 cm/s LVOT Peak Gradient 1.6 mmHg LVOT Velocity Time Integral 9.7 cm Mitral E Point Velocity 61.2 cm/s LV E' Lateral Velocity 9.8 cm/s Mitral E to LV E' Lateral Ratio 6.2 LV E' Septal Velocity 6.8 cm/s Mitral E to LV E' Septal Ratio 9.0 PV Peak Velocity 83.9 cm/s PV Peak Gradient 2.8 mmHg FINDINGS LEFT VENTRICLE Normal left ventricular size. Wall thickness is measured at the upper limits of normal. The left ventricular systolic function is low normal with an estimated ejection fraction in the rang e of 50- 55%. RIGHT VENTRICLE Normal right ventricular size and systolic function. LEFT ATRIUM The left atrial size is mildly dilated. RIGHT ATRIUM The right atrial size is moderately dilated. ATRIAL SEPTUM The interatrial septum not well visualized. AORTA The aortic root and proximal ascending aorta are normal in size on limited imaging. MITRAL VALVE Structurally normal mitral valve. No mitral valve stenosis or regurgitation. AORTIC VALVE Trileaflet aortic valve. No aortic valve stenosis or regurgitation. TRICUSPID VALVE There is trace tricuspid valve regurgitation. PULMONARY VALVE No pulmonary valve regurgitation or stenosis. VESSELS The inferior vena cava was not well visualized. PERICARDIUM A prominent epicardial fat pad is present. Fabricio Alfaro MD, FACC, [facility] [id number] (Electronically Signed) Final Date:06 December 2017 19:17
[2017-12-06 20:00] VITALS: BP 131/56; PULSE 92; PULSE 96; RESP 20; TEMP 99.3; O2SAT 98
--- NOTE | 2017-12-06 21:52 | MB ---
cc: BEENA BERNARD DATE OF CONSULTATION 12/06/17 4:45 p.m. DATE OF 1950 REQUESTED BY Hospitalist service. REASON FOR CONSULTATION Thrombocytopenia associated with anemia. CHIEF COMPLAINT Ms. Boone denies complaints other than feeling tired. Ms. Boone is very somnolent. She speaks in very short sentences and answers yes and no to most questions. She goes in and out of sleep during this interview. Most of this history has been obtained from the electronic medical record and from talking to the patient's nurse at bedside and the patient's primary attending. HISTORY OF PRESENT ILLNESS Ms. Boone is a 67-year-old female with multiple medical comorbid conditions. She is morbidly obese, has a history of MRSA pneumonia, history of chronic hypercapnic, hypoxic respiratory failure, history of gastroesophageal reflux disease, hypertension, diabetes mellitus, hyperlipidemia, A. fib and she is on chronic oxygen supplementation. She was admitted to [facility] on 11/15/2017 after she was found to be non-responsive at her senior living facility. She was intubated in the field and was brought into the emergency department. She was noted to be septic. Her lactic acid was elevated at close to seven. She was in acute renal failure. She had leukocytosis. The patient was noted to have Pseudomonas bacteremia associated with Pseudomonas septicemia (urosepsis) and was admitted to the critical care unit on the ventilator. She remained in the ICU up until 12/04/2017. The patient was extubated after a relatively brief period time on the ventilator. While on the ventilator, she did require vasopressor support. Over the course of this hospitalization, the patient's renal function has improved. Her respiratory status has improved. From a hematologic standpoint, she has had significant worsening of her anemia during this hospitalization with a hemoglobin of 11 gm/dl at the time of admission. Her hemoglobin has dropped down to a griffin of 7.7. She has also developed progressive thrombocytopenia since she was admitted with a presenting platelet count of close to 310,000. The platelet count has nadired at just over 60,000 as of today. Heparin/platelet factor IV antibodies are negative. The hematology service has been asked to see her for further workup and management of the thrombocytopenia and anemia. PAST MEDICAL HISTORY As outlined above, 1. Pertinent comorbids include morbid obesity with a BMI of over 50 2. Hypertension. 3. Hyperlipidemia. 4. Atrial fibrillation. 5. History of MRSA pneumonia (recurrent). 6. Chronic hypoxia. 7. Previous history of hypoxic respiratory failure. 8. Diabetes 9. Atrial fibrillation PAST SURGICAL HISTORY 1. Previous history of tracheostomy which was reversed some months ago. 2. Hernia surgery 3. Appendectomy. ALLERGIES PENICILLIN FAMILY HISTORY No oncologic diagnoses or hematologic diagnoses noted. Parents are both . SOCIAL HISTORY The patient lives at a senior living facility. She tells me she has three children. Her about two years ago. MEDICATIONS Current inpatient medications 1. D5 water at 30 cc/hour. 2. Tylenol 650 mg p.o. q.6 h as needed for pain. 3. DuoNebs 1 ampule q.2 h as needed for wheezing. 4. Dulcolax 10 mg per rectum daily as needed for constipation. 5. Chlorothiazide 250 mg p.o. daily. 6. Diltiazem 60 mg p.o. q.6 h 7. Zelda-Colace 1 tablet p.o. b.i.d. 8. Amantadine 10 mg IV q.12 h 9. Lasix 40 mg p.o. daily. 10. Heparin 5000 units subcu q.8 h (on hold) 11. Lactulose 30 mL p.o. daily as needed for severe constipation. 12. Metoprolol 12.5 mg q.12 h 13. Vancomycin 125 mg p.o. q.i.d. REVIEW OF SYSTEMS I attempted to obtain a review of systems from her. She does not engage much at all. She answers no to pain. She answers no to chest pain. She denies overt bleeding. She does not answer or engage with me much more than these few questions. I was unable to obtain a full review of systems despite trying. PHYSICAL EXAMINATION VITAL SIGNS: 97.5 degrees Fahrenheit, heart rate 106 beats per minute, respiratory rate 17, blood pressure 109/64, O2 sats were 94% on 3 liters nasal cannula. GENERAL APPEARANCE: Ms. Boone is an elderly female. She is laying in bed. She is morbidly obese. She is rolled over onto her side. She opens her eyes intermittently to talk to me. She drifts to sleep or at least closes her eyes frequently during this interview. HEENT: Head atraumatic, normocephalic, conjunctivae are pale. Sclerae are anicteric. Oral exam moist mucous membranes. No obvious masses noted in the oral cavity. Oropharynx was difficult to visualize. NECK: No obvious cervical lymphadenopathy. CARDIAC: Tachycardiac, S1, S2. No obvious murmurs, rubs or gallops. RESPIRATORY: On anterior chest wall examination, distal sounding breath sounds, faint breath sounds, decreased bibasilar air entry, poor inspiratory effort. ABDOMEN: Morbidly obese. Examination is limited by her body habitus. Grossly I was unable to identify hepatosplenomegaly. EXTREMITIES: Bilateral pretibial edema. She has in fact what appears to be anasarca of her lower extremities. Right upper extremity is edematous too. 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 She moves her right foot to command, but her left foot seems to be paralyzed. She tells me she does have sensation of the toes of the left foot. SKIN: The skin is dry. No skin breakdown is noted. No obvious lesions were noted. LABORATORY FINDINGS C diff stool toxin study was positive on 11/22/2017. CBC dated 12/06/2017: WBC count 6.9, hemoglobin 7.7 gm/dl, hematocrit 23.8%, platelet count 63,000, absolute neutrophil count is 4.5, absolute lymphocyte count is 1.2. Chemistries dated 12/05/2017: Sodium 145, potassium 3.4, chloride 104, bicarb 34.2, BUN 39, creatinine 1.63, EGFR 31 mL per minute, random glucose 95, calcium 8.8. Serum iron studies: Iron level 52 (normal), ferritin level is 346 (above the upper limit of normal), percent iron saturation is 27.7, TIBC is depleted at 188. Liver function tests performed on 11/20/2017 indicate AST 8, ALT seven, alkaline phosphatase 137, albumin two, total protein 4.9. Immunology: Heparin/platelet factor IV antibody was negative. Imaging studies: CT scan of the abdomen and pelvis dated 11/16/2017 indicates moderate hydronephrosis on the right side with hydroureter. There is dense material layering within the right renal pelvis and distal ureter of uncertain etiology but could represent a hemorrhage. Urinalysis and clinical correlation recommended. Hyperdense left renal lesion likely a complex cyst with scattered diverticulosis in the colon, left basilar consolidation. Left ventral wall hernia. CT scan of the chest dated 11/26/2017 indicates improvement in bilateral lung consolidation when compared to November 15, interval development of small bilateral pleural effusions, right greater than left. Ultrasound Doppler studies are not reported. ASSESSMENT Ms. Boone is a 67-year-old female with multiple medical comorbid conditions including morbid obesity, atrial fibrillation, recurrent MRSA pneumonia, recent E-coli urosepsis associated with hypercapnic respiratory failure, diabetes, hypertension and chronic immobility. This lady was admitted to the hospital earlier this month with hypoxic respiratory failure. She was noted to be in milena sepsis and spent several days in the critical care unit on a ventilator and requiring pressor support. She has been weaned off the ventilator and is no longer requiring pressor support. Over the course of this hospitalization, she has developed progressive anemia and thrombocytopenia. The hematology service has been asked to see her for further workup and management. Overall, the patient seems not to be able to engage much in conversation and most of this history was obtained from the electronic medical record and from talking directly to the care team. RECOMMENDATIONS 1. Thrombocytopenia: I suspect there to be a consumptive process at this point. Given her recent Pseudomonas septicemia secondary to a complicated urinary tract infection and C diff colitis, she has significant infectious etiologies which could explain a peripheral consumption of her platelets secondary to thrombin activation. This condition is also known as DIC. 2. Heparin/platelet factor IV antibodies are noted to be negative which rules out HIT. 3. At this point, I would recommend obtaining ultrasound Doppler study of her upper extremity on the right side due to the swelling to rule out the presence of a deep venous thrombosis. I will also obtain basic coags including PT/PTT, INR as well as a fibrinogen level to assess for possible dysfibrinogenemia. Further recommendations will be made depending on the workup. MD AUDRA Amezcua/ /5:15 PM /9:18 PM
--- NOTE | 2017-12-06 22:22 | RADRPT ---
EXAM DATE/TIME: 12/06/2017 21:57 [facility] COMPARISON: CT BRAIN W/O CONTRAST, November 15, 2017, 14:13. INDICATIONS : Altered mental status. RADIATION DOSE: 50.11 CTDIvol (mGy) MEDICAL HISTORY : Hypertension. SURGICAL HISTORY : None. ENCOUNTER: Initial ACUITY: 1 day PAIN SCALE: Non-responsive LOCATION: cranial TECHNIQUE: Multiple contiguous axial images were obtained of the head. Using automated exposure control and adj ustment of the mA and/or kV according to patient size, radiation dose was kept as low as reasonably a chievable to obtain optimal diagnostic quality images. DICOM format image data is available electro nically for review and comparison. FINDINGS: CEREBRUM: Mild diffuse renal volume loss. Mild periventricular white matter hypodensities. The ventricles are n ormal for degree of atrophy. No evidence of midline shift, mass lesion, hemorrhage or acute infarcti on. No extra-axial fluid collections are seen. POSTERIOR FOSSA: The cerebellum and brainstem are intact. The 4th ventricle is midline. The cerebellopontine angle i s unremarkable. EXTRACRANIAL: The visualized portion of the orbits is intact. Minimal right and mild left maxillary sinus mucoperio steal thickening. SKULL: The calvaria is intact. No evidence of skull fracture. CONCLUSION: 1. Senescent changes with mild small vessel ischemic periventricular white matter demyelination. 2. Minimal bilateral maxillary sinus because of disease. 3. No acute intracranial normality. Riccardo Stack MD on December 06, 2017 at 22:19 Board Certified Radiologist. This report was verified electronically.
[2017-12-06 23:18] LABS: INTERNATIONAL NORMALIZED RATIO 1.1 RATIO; PROTHROMBIN TIME - PATIENT 11.5 SEC (9.8-11.6)
[2017-12-07] VITALS (8 sets, daily range): BP systolic 101–129; BP diastolic 52–68; PULSE 84–107; RESP 16–20; TEMP 97.5–99; O2SAT 95–100
[2017-12-07] MEDS: DILTIAZEM HCL 60 MG TAB PO SCH ×4 (00:18→19:28)
[2017-12-07] MEDS: NYSTATIN 100,000 UNIT/GM CREAM 15 GM TOPICAL SCH ×4 (00:19→19:29)
[2017-12-07] MEDS: ACETAMINOPHEN/HYDROcodone 325 MG/5 MG TAB PO PRN ×2 (01:54→09:05)
[2017-12-07] MEDS: CHLORHEXIDINE GLUCONATE 2 % 1 PACK (2 CLOTHS) TOP SCH (04:00)
[2017-12-07 04:41] LABS: AUTOMATED NEUTROPHIL # 4.5 TH/MM3 (1.8-7.7); BASOPHIL % 0.4 % (0.0-2.0); EOSINOPHIL # 0.4 TH/MM3 (0-0.4); EOSINOPHIL % 4.7 % (0.0-4.0); HEMATOCRIT 21.6 % (35.0-46.0); HEMOGLOBIN 7.2 GM/DL (11.6-15.3); LYMPH % 20.8 % (9.0-44.0); LYMPHOCYTE # 1.6 TH/MM3 (1.0-4.8); MEAN CELL VOLUME 87.6 FL (80.0-100.0); MEAN CORPUSCULAR HEMOGLOBIN 29.1 PG (27.0-34.0); MEAN CORPUSCULAR HGB CONC 33.2 % (32.0-36.0); MEAN PLATELET VOLUME 8.6 FL (7.0-11.0); MONO % 14.9 % (0.0-8.0); MONOCYTE # 1.1 TH/MM3 (0-0.9); NEUT % 59.2 % (16.0-70.0); PLATELET COUNT 65 TH/MM3 (150-450); RED BLOOD COUNT 2.46 MIL/MM3 (4.00-5.30); RED CELL DISTRIBUTION WIDTH 19.8 % (11.6-17.2); WHITE BLOOD COUNT 7.5 TH/MM3 (4.0-11.0)
[2017-12-07 05:06] LABS: BICARBONATE 34.1 MEQ/L (21.0-32.0); CALCIUM 8.9 MG/DL (8.5-10.1); CREATININE 1.55 MG/DL (0.50-1.00)
[2017-12-07 07:15] LABS: CORRECTED NUCLEATED RBC 1 /100 WBC (0-0); LYMPHOCYTES 14 % (9-44); MONOCYTES 8 % (0-8); MYELOCYTES 2 % (0-0); NEUTROPHIL # MANUAL DIFF 5.8 TH/MM3 (1.8-7.7); NUCLEATED RED BLOOD CELL 1 (0-0); POLYS (SEG NEUTROPHILS) 75 % (16-70); STOMATOCYTES 1+ (NORMAL)
[2017-12-07] MEDS: CHLORHEXIDINE 0.12% (ORAL KIT) 15 ML CUP MT SCH ×2 (08:00→20:00)
[2017-12-07] MEDS: DOCUSATE SODIUM 50 MG/SENNA 8.6 MG TAB PO SCH ×2 (08:50→20:20)
[2017-12-07] MEDS: FUROSEMIDE 40 MG TAB PO SCH (08:50)
[2017-12-07] MEDS: CHLOROTHIAZIDE 250 MG TAB PO SCH (08:50)
[2017-12-07] MEDS: METOPROLOL TARTRATE 25 MG TAB PO SCH ×2 (08:50→20:23)
[2017-12-07] MEDS: FAMOTIDINE 20 MG/2 ML VIAL IV PUSH SCH ×2 (08:50→20:21)
[2017-12-07] MEDS: VANCOMYCIN 25 MG/ML SUSP 100 ML BOTTLE PO SCH ×4 (09:05→20:20)
--- NOTE | 2017-12-07 09:34 | HHI.PR ---
Subjective Remarks in no acute distress. awake and alert. no fever. Objective Vitals Vital Signs Date Time Temp Pulse Resp B/P (MAP) Pulse Ox O2 Delivery O2 Flow Rate FiO2 12/07/17 04:00 97 12/07/17 04:00 98.6 99 20 127/61 (83) 95 12/07/17 02:54 20 12/07/17 00:00 85 12/07/17 00:00 99.0 89 20 112/56 (74) 98 12/06/17 20:00 96 12/06/17 20:00 99.3 92 20 131/56 (81) 98 12/06/17 16:00 98.7 96 18 129/56 (80) 93 12/06/17 12:00 97.5 106 17 109/64 (79) 94 I/O 12/06/17 12/06/17 12/06/17 12/07/17 12/07/17 12/07/17 07:00 15:00 23:00 07:00 15:00 23:00 Intake Total 1840 ml 0 ml Output Total 200 ml 650 ml 400 ml Balance -200 ml 1190 ml -400 ml Intake Oral 1200 ml 0 ml IV Total 640 ml Output Urine Total 200 ml 650 ml 400 ml # Bowel Movements 0 1 1 Result Diagram: 12/07/17 0354 12/07/17 0354 Imaging Last Impressions Head CT 12/06/17 0000 Signed Impressions: Service Date/Time: November 21:57 - CONCLUSION: 1. Senescent changes with mild small vessel ischemic periventricular white matter demyelination. 2. Minimal bilateral maxillary sinus because of disease. 3. No acute intracranial normality. Riccardo tSack MD Chest X-Ray 12/03/17 0000 Signed Impressions: Service Date/Time: Sunday, December 03, 2017 08:10 - CONCLUSION: Persistent, but improved, left lower lobe consolidation. Doiran Vasquez MD Chest CT 11/26/17 0000 Signed Impressions: Service Date/Time: Sunday, November 26, 2017 17:16 - CONCLUSION: 1. Improvement in bilateral lung consolidation since November 1. Interval development of small bilateral effusions, right greater than left. Sachin Gonzalez MD Abdomen/Pelvis CT 11/26/17 0000 Signed Impressions: Service Date/Time: Sunday, November 26, 2017 17:16 - CONCLUSION: Very limited exam because of arms and body habitus. I don't see abscess or free air. Double-J stent on the right. Joseph Baeza MD FACR Abdomen X-Ray 11/17/17 0000 Signed Impressions: Service Date/Time: Friday, November 17, 2017 19:04 - CONCLUSION: The proximal tip of the double-J stent is either in the expected region of the right renal pelvis or proximal ureter. Allen Mensah MD Objective Remarks GENERAL: morbidly obese, in no apparent distress. CARDIOVASCULAR: Regular rate and regular rhythm without murmurs, gallops, or rubs. RESPIRATORY: Clear to auscultation. Breath sounds equal bilaterally. No wheezes , rales, or rhonchi. GASTROINTESTINAL: Abdomen soft, non-tender, nondistended. Normal, active bowel sounds MUSCULOSKELETAL: Extremities without clubbing, cyanosis, or edema. NEURO: Alert & Oriented x4 to person, place, time, situation. Moves all ext x4 Procedures endotracheal intubation/ cystoscopy and stent placement. Medications and IVs Inpatient Medications Acetaminophen (Tylenol Supp) 650 mg ONCE ONCE RECTAL Last administered on at 12:39; Start 11/15/17 at 12:30; Stop 11/15/17 at 12:31; Status DC Acetaminophen (Tylenol) 650 mg Q6H PRN PO PAIN 1-6 AND/OR FEVER >101F Last administered on 11/27/17at 16:05; Start 11/15/17 at 14:00 Acetaminophen/ Hydrocodone Bitart ([place] 5-325 Mg) 1 tab Q4H PRN PO PAIN SCALE 7 TO 10 Last administered on 12/07/17at 09:05; Start 11/24/17 at 18:15 Acetazolamide Sodium (Diamox Inj) 500 mg Q24H IV Last administered on at 08:25; Start 11/30/17 at 09:00; Stop 12/01/17 at 07:34; Status DC Albumin Human 100 ml @ 60 mls/hr ONCE ONCE IV Last administered on 11/28/17at 23:38; Start 11/28/17 at 23:00; Stop 11/29/17 at 00:39; Status DC Albuterol/ Ipratropium (Duoneb Neb) 1 ampule Q4HR NEB NEB Last administered on 11/26/17at 11:16; Start 11/22/17 at 12:00; Stop 11/26/17 at 11:59; Status DC Amiodarone HCl 150 mg/Dextrose 103 ml @ 600 mls/hr Q11M ONCE IV Last administered on 11/15/17at 13:24; Start 11/15/17 at 13:03; Stop 11/15/17 at 13:13; Status DC Amiodarone HCl 200 mg/Dextrose 101 ml @ 202 mls/hr Q12H IV Last administered on 11/19/17at 12:00; Start 11/18/17 at 12:00; Stop 11/19/17 at 17:52; Status DC Amiodarone HCl 450 mg/Dextrose 250 ml @ 33.33 mls/ hr Q7H31M PRN IV Per Protocol Last administered on 11/15/17at 13:51; Start 11/15/17 at 13:13; Stop at 20:08; Status DC Amiodarone HCl 450 mg/Sodium Chloride 250 ml @ 33.33 mls/ hr Q7H31M PRN IV Per Protocol Last administered on 11/18/17at 05:03; Start 11/15/17 at 20:15; Stop at 10:21; Status DC Azithromycin 500 mg/Sodium Chloride 250 ml @ 250 mls/hr Q24H IV Last administered on 11/17/17at 08:10; Start 11/16/17 at 08:00; Stop 11/17/17 at 09:45; Status DC Aztreonam 1000 mg/ Sodium Chloride 100 ml @ 200 mls/hr Q8H IV ; Start 11/15/17 at 22:00; Stop 11/15/17 at 22:00; Status DC Bisacodyl (Dulcolax Supp) 10 mg DAILY PRN RECTAL SEVERE CONSITIPATION; Start at 14:00 Cefazolin Sodium (Ancef Inj) 3,000 mg ONCE ONCE IV ; Start 11/16/17 at 14:45; Stop 11/16/17 at 15:34; Status DC Cefazolin Sodium 3000 mg/Sodium Chloride 130 ml @ 200 mls/hr UAT TESTER IV ; Start 11/16/17 at 15:45; Stop 11/19/17 at 15:44; Status DC Ceftazidime 2000 mg/Sodium Chloride 100 ml @ 200 mls/hr Q8H IV Last administered on 11/26/17at 09:21; Start 11/25/17 at 18:00; Stop 11/26/17 at 09:50 ; Status DC Ceftolozane/ Tazobactam 1500 mg/Sodium Chloride 100 ml @ 100 mls/hr Q8H IV Last administered on 12/02/17at 18:25; Start 11/26/17 at 11:00; Stop 12/03/17 at 10:16; Status DC Ceftolozane/ Tazobactam 375 mg/ Sodium Chloride 100 ml @ 100 mls/hr Q8H IV Last administered on 11/19/17at 13:14; Start 11/15/17 at 17:30; Stop 11/19/17 at 14: 37; Status DC Chlorhexidine Gluconate (Chlorhexidine 2% Cloth) 3 pack UNSCH PRN TOP HYGIENIC CARE; Start 11/15/17 at 14:00 Chlorhexidine Gluconate (Peridex 0.12% Liq) 15 ml BID@08,20 MT Last administered on 12/01/17at 08:00; Start 11/16/17 at 20:00 Chlorothiazide (Diuril) 250 mg DAILY PO Last administered on 12/07/17at 08:50; Start 12/06/17 at 09:00 Chlorothiazide Sodium (Diuril Inj) 250 mg BID IV Last administered on at 10:49; Start 12/04/17 at 21:00; Stop 12/05/17 at 12:18; Status DC Clindamycin/ Sodium Chloride 50 ml @ 100 mls/hr Q6H IV Last administered on 11/16/17at 05:05; Start 11/15/17 at 18:00; Stop 11/16/17 at 06:38; Status DC Dexmedetomidine HCl 1000 mcg/ Sodium Chloride 250 ml @ 9.07 mls/hr TITRATE PRN IV SEDATION Last administered on 11/19/17at 23:52; Start 11/19/17 at 08:15; Stop 11/22/17 at 09:38; Status DC Dexmedetomidine HCl 200 mcg/ Sodium Chloride 52 ml @ 9.43 mls/hr TITRATE PRN IV SEDATION; Start 11/18/17 at 10:30; Stop 11/18/17 at 11:03; Status DC Dextrose 1,000 ml @ 30 mls/hr Q24H IV Last administered on 12/05/17at 21:53; Start 12/04/17 at 13:00 Dextrose (D50w (Vial) Inj) 25 ml UNSCH PRN IV PUSH HYPOGLYCEMIA-SEE COMMENTS; Start 11/15/17 at 14:00 Diatrizoate Meglum/ Diatrizoate Sod ( Gastroview Liq) 18 ml ONCE ONCE PO Last administered on 11/26/17at 11:34; Start 11/26/17 at 09:59; Stop 11/26/17 at 11:19; Status DC Digoxin (Lanoxin Inj) 0.25 mg STAT ONCE IV PUSH Last administered on 11/15/17at 17:54; Start 11/15/17 at 16:15; Stop 11/15/17 at 17:27; Status DC Diltiazem HCl (Cardizem Inj) 10 mg BOLUS ONCE IV PUSH ; Start 11/15/17 at 12:30 ; Stop 11/15/17 at 12:31; Status DC Diltiazem HCl (Cardizem) 60 mg Q6HR PO Last administered on 12/07/17at 06:01; Start 11/29/17 at 06:15 Diltiazem HCl 125 mg/Sodium Chloride 125 ml @ 5 mls/hr TITRATE PRN IV tachycardia Last administered on 11/17/17at 10:26; Start 11/15/17 at 12:30; Stop at 10:21; Status DC Dopamine HCl/ Dextrose 500 ml @ 0 mls/hr TITRATE PRN IV Blood Pressure Management; Start 11/15/17 at 12:45; Stop 11/18/17 at 10:21; Status DC Epinephrine HCl 2 mg/Dextrose 252 ml @ 22.68 mls/ hr TITRATE PRN IV Blood Pressure Management Last administered on 11/15/17at 19:34; Start 11/15/17 at 15:45 ; Stop 11/15/17 at 22:43; Status DC Epinephrine HCl 8 mg/Dextrose 250 ml @ 5.62 mls/hr TITRATE PRN IV Blood Pressure Management Last administered on 11/15/17at 23:15; Start 11/15/17 at 22:45 ; Stop 11/18/17 at 10:21; Status DC Famotidine (Pepcid Inj) 10 mg Q12HR IV PUSH Last administered on 12/07/17at 08: 50; Start 11/15/17 at 21:00 Fentanyl Citrate 250 ml @ 5 mls/hr TITRATE PRN IV SEDATION; Start 11/16/17 at 16 :00; Stop 11/18/17 at 10:21; Status DC Fluconazole (Diflucan) 100 mg DAILY PO Last administered on 12/02/17at 08:40; Start 11/26/17 at 20:00; Stop 12/03/17 at 10:16; Status DC Furosemide (Lasix Inj) 40 mg DAILY IV PUSH Last administered on 12/05/17at 10:49 ; Start 12/05/17 at 09:00; Stop 12/05/17 at 12:18; Status DC Furosemide (Lasix) 40 mg DAILY PO Last administered on 12/07/17at 08:50; Start 12/06/17 at 09:00 Furosemide 100 mg/ Sodium Chloride 100 ml @ 10 mls/hr CONTINUOUS IV Last administered on 11/27/17at 08:49; Start 11/21/17 at 11:00; Stop 11/27/17 at 09:13 ; Status DC Heparin Sodium (Porcine) (Heparin Inj) 5,000 units Q8H SQ Last administered on 12/02/17at 05:19; Start 11/15/17 at 15:00; Status Future Hold Hydrocortisone Sodium Succinate (SoluCORTEF INJ) 25 mg DAILY IV PUSH Last administered on 11/28/17at 08:54; Start 11/26/17 at 09:00; Stop 11/29/17 at 08:59 ; Status DC Insulin Human Regular (NovoLIN R SUPPLEMENTAL SCALE) 1 Q6HR SQ Last administered on 11/20/17at 17:43; Start 11/15/17 at 18:00; Stop 11/28/17 at 22:56; Status DC Lactulose (Lactulose Liq) 30 ml DAILY PRN PO SEVERE CONSITIPATION; Start at 14:00 Levofloxacin/ Dextrose 150 ml @ 100 mls/hr Q48H IV ; Start 11/17/17 at 14:00; Stop 11/17/17 at 14:00; Status DC Linezolid 300 ml @ 300 mls/hr Q12H IV Last administered on 12/03/17at 07:00; Start 11/16/17 at 07:00; Stop 12/03/17 at 10:16; Status DC Magnesium Hydroxide (Milk Of Magnesia Liq) 30 ml Q12H PRN PO Mild constipation ; Start 11/15/17 at 14:00 Magnesium Sulfate/ Dextrose 100 ml @ 100 mls/hr ONCE ONCE IV Last administered on 11/26/17at 09:20; Start 11/26/17 at 07:15; Stop 11/26/17 at 08:14 ; Status DC Metolazone (Zaroxolyn) 5 mg ONCE ONCE PO Last administered on 11/23/17at 09:57; Start 11/23/17 at 09:30; Stop 11/23/17 at 09:31; Status DC Metoprolol Tartrate (Lopressor Inj) 5 mg ONCE ONCE IV PUSH Last administered on 11/28/17at 23:39; Start 11/28/17 at 23:00; Stop 11/28/17 at 23:01; Status DC Metoprolol Tartrate (Lopressor) 12.5 mg Q12HR PO Last administered on at 08:50; Start 11/30/17 at 15:00 Metronidazole 100 ml @ 100 mls/hr Q8H IV ; Start 11/23/17 at 08:15; Stop at 08:25; Status DC Midazolam HCl (Versed Inj) 5 mg ONCE ONCE IV PUSH ; Start 11/16/17 at 16:00; Stop 11/16/17 at 16:01; Status DC Miscellaneous Information 1 Q361D XX Last administered on 11/15/17at 19:00; Start 11/15/17 at 14:00 Non-Formulary Medication VANCOMYCIN STOCK SOLUT... QID PO Last administered on 11/23/17at 20:13; Start 11/23/17 at 09:00; Stop 11/24/17 at 08:04; Status DC Norepinephrine Bitartrate 250 ml @ 7.5 mls/hr TITRATE PRN IV Blood pressure management Last administered on 11/15/17at 21:26; Start 11/15/17 at 12:15; Stop 11/15/17 at 22:41; Status DC Norepinephrine Bitartrate 16 mg/ Dextrose 250 ml @ 1.87 mls/hr TITRATE PRN IV Blood pressure management Last administered on 11/20/17at 06:15; Start 11/15/17 at 22:45; Stop 11/21/17 at 07:28; Status DC Nystatin (Mycostatin Cream) 1 applic Q6HR TOPICAL Last administered on at 06:00; Start 11/26/17 at 12:00 Ondansetron HCl (Zofran Inj) 4 mg Q6H PRN IV PUSH NAUSEA OR VOMITING Last administered on 11/27/17at 17:52; Start 11/15/17 at 14:00 Oseltamivir Phosphate (Tamiflu Liq) 75 mg Q12H PO Last administered on at 17:45; Start 11/15/17 at 18:00; Stop 11/16/17 at 10:12; Status DC Pharmacy Profile Note 0 ml @ 0 mls/hr UNSCH OTHER ; Start 11/15/17 at 14:00; Stop 11/15/17 at 17:23; Status DC Potassium Chloride 40 meq/ Sodium Chloride 520 ml @ 130 mls/hr ONCE ONCE IV- CENTRAL ; Start 11/23/17 at 09:00; Stop 11/23/17 at 09:21; Status DC Potassium Bicarb/ Potassium Chloride (K-Lyte Cl Eff) 50 meq ONCE ONCE PO Last administered on 11/29/17at 09:15; Start 11/29/17 at 07:30; Stop 11/29/17 at 07:43; Status DC Potassium Chloride (KCl) 20 meq ONCE ONCE PO Last administered on 11/28/17at 11 :49; Start 11/28/17 at 10:00; Stop 11/28/17 at 10:01; Status DC Propofol 100 ml @ 0 mls/hr TITRATE PRN IV SEDATION; Start 11/15/17 at 11:45; Stop 11/18/17 at 10:21; Status DC Senna/Docusate Sodium (Zelda-Colace) 1 tab BID PO Last administered on at 08:50; Start 11/15/17 at 21:00 Sennosides (Senokot) 17.2 mg Q12H PRN PO Moderate constipation; Start 11/15/17 at 14:00 Sodium Chloride 500 ml @ 500 mls/hr BOLUS ONCE IV Last administered on at 09:15; Start 11/27/17 at 09:15; Stop 11/27/17 at 11:05; Status DC Succinylcholine Chloride (Quelicin Inj) 100 mg ONCE ONCE IV PUSH ; Start at 16:00; Stop 11/16/17 at 16:01; Status DC Terbutaline Sulfate (Brethine Inj) 1 mg UNSCH PRN SQ For Extravasation; Start 11/15/17 at 12:45 Vancomycin HCl (VANCOMYCIN for oral use only) 125 mg QID PO ; Start 11/23/17 at 09:00; Stop 11/23/17 at 09:00; Status DC Vancomycin HCl (Vancomycin 25 Mg/ml Liq) 125 mg QID PO Last administered on at 09:05; Start 11/24/17 at 09:00; Stop 12/14/17 at 08:59 Vancomycin HCl 500 mg/Sodium Chloride 100 ml @ 200 mls/hr ONCE ONCE IV ; Start 11/15/17 at 15:00; Stop 11/15/17 at 15:29; Status DC Vancomycin HCl 1000 mg/Sodium Chloride 250 ml @ 250 mls/hr ONCE ONCE IV Last administered on 11/15/17at 12:45; Start 11/15/17 at 12:15; Stop 11/15/17 at 13:14; Status DC Vasopressin 40 units/Dextrose 100 ml @ 6 mls/hr [id number] IV Last administered on 11/20/17at 10:28; Start 11/15/17 at 14:12; Stop 11/21/17 at 07:28; Status DC A/P Assessment and Plan Metabolic Encephalopathy - improved Chronic Pain - Awake and alert - Lortab 5/325 mg PRN Acute hypoxic and hypercarbic respiratory failure- Extubated 11/22 Healthcare Associated Pneumonia Continue with oxygen keep sat >92% Bronchodilators, IS, - sputum culture: MRSA CT chest 11/26: Improvement in bilateral lung consolidation since November 15. small bilateral effusions, right greater than left. s/p Septic Shock - Atrial fibrillation with rapid ventricular response - continue metoprolol and cardizem. echo with EF 55%. Acute Kidney Injury - resolving. Acute pyelonephritis Metabolic alkalosis secondary to intravascular volume contraction Monitor renal function, I/O's, avoid nephrotoxins On IV Lasix and Diuril - s/p Emergent cysto with stent- f/u with Urology as outpatient. Renal is following- Dr. Lopez. -will dc garcia when more mobile. Super Morbid Obesity Lactic Acidosis- cleared Anion-gap Metabolic acidosis- resolved. Acute intravascular volume overload Severe acute protein calorie malnutrition -Pured diet, poor oral intake -Pepcid for GI prophylaxis -CT abdomen/pelvis: No abscess or free air History of prior MRSA pneumonia Acute pyelonephritis Pseudomonas bacteremia Positive C-diff - evaluated by ID. - Abx per Dr. Cartagena. Zyvox, Zerbaxa discontinued on 12/03 per ID, Continue PO Vanco. -11/25 urine cx : C. Albicans -11/20 BC :NGTD -11/17 BC: Coag negative staph 10/18 bottles..likely contaminant - 11/17 Urine cx :Pseudomonas - 2/ blood cultures: pseudomonas - 2/ urine culture: pseudomonas - 2/1 sputum culture: MRSA thrombocytopenia- trending down anemia heparin on hold- HIT ab negative- continue to monitor- check the stool for blood. hematology consult appreciated. PT/OT evaluate and treat Prophylaxis: SCDs, SQH held for thrombocytopenia. Pepcid Discharge Planning not ready for discharge. work-up in progress. Vianey Dupree MD Dec 07, 2017 09:34
--- NOTE | 2017-12-07 11:37 | PD.ONC.PN ---
Subjective Subjective Remarks Afebrile overnight. Patient resting in room in nad. denies pain or bleeding. Objective Data Date Time Temp Pulse Resp B/P (MAP) Pulse Ox O2 Delivery O2 Flow Rate FiO2 12/07/17 08:00 99.0 94 18 129/61 (83) 100 12/07/17 04:00 97 12/07/17 04:00 98.6 99 20 127/61 (83) 95 12/07/17 02:54 20 12/07/17 00:00 85 12/07/17 00:00 99.0 89 20 112/56 (74) 98 12/06/17 20:00 96 12/06/17 20:00 99.3 92 20 131/56 (81) 98 12/06/17 16:00 98.7 96 18 129/56 (80) 93 12/06/17 12:00 97.5 106 17 109/64 (79) 94 12/07/17 12/07/17 12/07/17 07:00 15:00 23:00 Intake Total 0 ml Output Total 400 ml Balance -400 ml Result Diagram: 12/07/17 0354 12/07/17 0354 Laboratory Results Laboratory Tests Test 12/06/17 13:53 12/06/17 22:33 12/07/17 03:54 White Blood Count 6.9 TH/MM3 7.5 TH/MM3 Red Blood Count 2.69 MIL/MM3 2.46 MIL/MM3 Hemoglobin 7.7 GM/DL 7.2 GM/DL Hematocrit 23.8 % 21.6 % Mean Corpuscular Volume 88.4 FL 87.6 FL Mean Corpuscular Hemoglobin 28.4 PG 29.1 PG Mean Corpuscular Hemoglobin Concent 32.1 % 33.2 % Red Cell Distribution Width 19.5 % 19.8 % Platelet Count 63 TH/MM3 65 TH/MM3 Mean Platelet Volume 8.6 FL 8.6 FL Neutrophils (%) (Auto) 65.7 % 59.2 % Lymphocytes (%) (Auto) 16.7 % 20.8 % Monocytes (%) (Auto) 12.2 % 14.9 % Eosinophils (%) (Auto) 4.9 % 4.7 % Basophils (%) (Auto) 0.5 % 0.4 % Neutrophils # (Auto) 4.5 TH/MM3 4.5 TH/MM3 Lymphocytes # (Auto) 1.2 TH/MM3 1.6 TH/MM3 Monocytes # (Auto) 0.8 TH/MM3 1.1 TH/MM3 Eosinophils # (Auto) 0.3 TH/MM3 0.4 TH/MM3 Basophils # (Auto) 0.0 TH/MM3 0.0 TH/MM3 CBC Comment AUTO DIFF AUTO DIFF Differential Comment AUTO DIFF CONFIRMED FINAL DIFF MANUAL Platelet Estimate LOW LOW Platelet Morphology Comment NORMAL ENLARGED Ovalocytes 1+ Stomatocytes 3+ 1+ Iron Level 52 MCG/DL Total Iron Binding Capacity 188 MCG/DL Percent Iron Saturation 27.7 % Ferritin 346 NG/ML Prothrombin Time 11.5 SEC Prothromb Time International Ratio 1.1 RATIO Activated Partial Thromboplast Time 26.9 SEC Fibrinogen 438 mg/dL Total Protein 4.7 GM/DL Differential Total Cells Counted 100 Neutrophils % (Manual) 75 % Lymphocytes % 14 % Monocytes % 8 % Eosinophils % 1 % Neutrophils # (Manual) 5.8 TH/MM3 Myelocytes 2 % Nucleated Red Blood Cells 1 /100 WBC Blood Urea Nitrogen 33 MG/DL Creatinine 1.55 MG/DL Random Glucose 114 MG/DL Calcium Level 8.9 MG/DL Sodium Level 143 MEQ/L Potassium Level 3.6 MEQ/L Chloride Level 103 MEQ/L Carbon Dioxide Level 34.1 MEQ/L Anion Gap 6 MEQ/L Estimat Glomerular Filtration Rate 33 ML/MIN Administered Medications Medications (Trade) Dose Ordered Sig/Mirta Route PRN Reason Start Time Stop Time Status Last Admin Dose Admin Albuterol/ Ipratropium (Duoneb Neb) 1 ampule Q2HR NEB PRN INH WHEEZING 11/15/17 14:00 11/17/17 23:39 Acetaminophen (Tylenol) 650 mg Q6H PRN PO PAIN 1-6 AND/OR FEVER >101F 11/15/17 14:00 11/27/17 16:05 Famotidine (Pepcid Inj) 10 mg Q12HR IV PUSH 11/15/17 21:00 12/07/17 08:50 Ondansetron HCl (Zofran Inj) 4 mg Q6H PRN IV PUSH NAUSEA OR VOMITING 11/15/17 14:00 11/27/17 17:52 Heparin Sodium (Porcine) (Heparin Inj) 5,000 units Q8H SQ 11/15/17 15:00 Future Hold 12/02/17 05:19 Miscellaneous Information 1 Q361D XX 11/15/17 14:00 11/15/17 19:00 Chlorhexidine Gluconate (Chlorhexidine 2% Cloth) 3 pack Taper DAILY@04 TOP 11/16/17 04:00 11/12/18 03:59 11/30/17 04:00 Senna/Docusate Sodium (Zelda-Colace) 1 tab BID PO 11/15/17 21:00 12/07/17 08:50 Chlorhexidine Gluconate (Peridex 0.12% Liq) 15 ml BID@08,20 MT 11/16/17 20:00 12/01/17 08:00 Vancomycin HCl (Vancomycin 25 Mg/ml Liq) 125 mg QID PO 11/24/17 09:00 12/14/17 08:59 12/07/17 09:05 Acetaminophen/ Hydrocodone Bitart (Ava 5-325 Mg) 1 tab Q4H PRN PO PAIN SCALE 7 TO 10 11/24/17 18:15 12/07/17 09:05 Nystatin (Mycostatin Cream) 1 applic Q6HR TOPICAL 11/26/17 12:00 12/07/17 06:00 Diltiazem HCl (Cardizem) 60 mg Q6HR PO 11/29/17 06:15 12/07/17 06:01 Metoprolol Tartrate (Lopressor) 12.5 mg Q12HR PO 11/30/17 15:00 12/07/17 08:50 Dextrose 1,000 ml @ 30 mls/hr Q24H IV 12/04/17 13:00 12/05/17 21:53 Chlorothiazide (Diuril) 250 mg DAILY PO 12/06/17 09:00 12/07/17 08:50 Furosemide (Lasix) 40 mg DAILY PO 12/06/17 09:00 12/07/17 08:50 Objective Remarks GENERAL: Morbidly obese female, mildly lethargic, lying on bed in room watching TV SKIN: Warm and dry. HEAD: Normocephalic. EYES: No injection or drainage. NECK: Supple, trachea midline. CARDIOVASCULAR: +S1/S2 RESPIRATORY: anterior west with occasional rhonchi. GASTROINTESTINAL: Abdomen soft, non-tender, nondistended. EXTREMITIES: No cyanosis NEUROLOGICAL: awake, normal speech. Assessment/Plan Problem List: (1) Normocytic anemia ICD Codes: D64.9 - Anemia, unspecified Plan: --no obvious bleeding --stool hemoccult pending ---TIBC low, ferritin elevated, consistent with anemia of chronic disease which is consistent with the patient's multiple comorbidities (2) Thrombocytopenia ICD Codes: D69.6 - Thrombocytopenia, unspecified Plan: --suspect consumptive process -- recent Pseudomonas septicemia secondary to a complicated urinary tract infection and C diff colitis, she has significant infectious etiologies which could explain a peripheral consumption of her platelets secondary to thrombin activation. (DIC) --HIT negative. --U/S upper extremity is negative for DVT Assessment 67y/o female with thrombocytopenia associated with anemia. h/o morbid obesity, has a history of MRSA pneumonia, history of chronic hypercapnia, hypoxic respiratory failure, history of gastroesophageal reflux disease, hypertension, diabetes mellitus, hyperlipidemia, A. fib, chronic oxygen supplementation HPI (brought forward for continuity of care: admitted to [facility] on 10/2017 after she was found to be non-responsive at her care home facility. She was intubated in the field and was brought into the emergency department. She was noted to be septic. Her lactic acid was elevated at close to seven. She was in acute renal failure. She had leukocytosis. The patient was noted to have Pseudomonas bacteremia associated with Pseudomonas septicemia (urosepsis) and was admitted to the critical care unit on the ventilator. She remained in the ICU up until 12/04/2017. The patient was extubated after a relatively brief period time on the ventilator. While on the ventilator, she did require vasopressor support. Over the course of this hospitalization, the patient's renal function has improved. Her respiratory status has improved. From a hematologic standpoint, she has had significant worsening of her anemia during this hospitalization with a hemoglobin of 11 gm/dl at the time of admission. Her hemoglobin has dropped down to a griffin of 7.7. She has also developed progressive thrombocytopenia since she was admitted with a presenting platelet count of close to 310,000. The platelet count has nadired at just over 60,000. Heparin/ platelet factor IV antibodies are negative. Plan 1. monitor CBC, slight improvement noted in platelets today 2. obtain stool Hemoccult Anu Martinez Dec 07, 2017 11:37
--- NOTE | 2017-12-07 12:13 | RADRPT ---
EXAM DATE/TIME: 12/07/2017 08:56 [facility] COMPARISON: No previous studies available for comparison. INDICATIONS : Right arm swelling. MEDICAL HISTORY : Cardiovascular disease. Hypertension. Hernia, hiatal. SURGICAL HISTORY : Appendectomy. ENCOUNTER: Initial ACUITY: 1 day PAIN SCORE: 0/10 LOCATION: Right arm. FINDINGS: There is spontaneous flow documented in the brachial, basilic, cephalic, axillary, and subclavian vei ns. The vessels are compressible and augmentation response is documented. No filling defects are se en. The flow is phasic with respiration. Direction of flow in the jugular vein is caudal. CONCLUSION: 1. Negative for deep venous thrombosis. Dorian Vasquez MD on December 07, 2017 at 12:11 Board Certified Radiologist. This report was verified electronically.
--- NOTE | 2017-12-07 12:16 | HHI.NPPN ---
Subjective General Problems: Edema Renal Failure: Acute Additional Remarks Patient is alert, has mild SOB, eating better, not in distress. Review of Systems General General Remarks difficult to ascertain. Cardiovascular Cardiac: Edema Objective Data Data Vital Signs Date Time Temp Pulse Resp B/P (MAP) Pulse Ox O2 Delivery O2 Flow Rate FiO2 12/07/17 08:00 99.0 94 18 129/61 (83) 100 12/07/17 04:00 97 12/07/17 04:00 98.6 99 20 127/61 (83) 95 12/07/17 02:54 20 12/07/17 00:00 85 12/07/17 00:00 99.0 89 20 112/56 (74) 98 12/06/17 20:00 96 12/06/17 20:00 99.3 92 20 131/56 (81) 98 12/06/17 16:00 98.7 96 18 129/56 (80) 93 -: 12/07/17 0354 12/07/17 0354 Tubes & Lines: Solitario Physical Exam General Appearance: Well Nourished, No Acute Distress, Comfortable, Obese Eyes Eye Exam: Pupils Equal Throat Throat Exam: Oral Mucosa Newberry & Moist Neck Neck Exam: Neck Supple Pulmonary Resp Exam: Breath Sounds Equal, No Distress, Crackles Cardiology CV Exam: Regular, Good Perfusion, Tachycardia Gastrointestinal/Abdomen GI Exam: Soft, Non-Tender, Bowel Sounds Present, Positive Bowel Movement Musculoskeletal MS Exam: Joints Intact, Normal Tone, Unable to Ambulate Integumentary Skin Exam: Warm, Dry Extremeties Extremities Exam: Moderate Edema, Pitting Edema, Dependent Edema Neurologic Neuro Exam: Alert, Awake, Oriented, Speech Clear Psychiatric Psych Exam: Appropriate Responses Assessment/Plan Discussed Condition With: Patient Assessment Summary: FREDDY/Acute Renal Failure, Fluid/Volume Overload, Hypotension Electrolyte Assessment: Hypokalemia Problem List: (1) FREDDY (acute kidney injury) ICD Codes: N17.9 - Acute kidney failure, unspecified Plan: In January 2017 her renal function was normal. Had FREDDY in September, creatinine at discharge was 1.8 Obstructive uropathy, s/p R ureteral stent placement on the 16 of November. FREDDY also due to urosepsis with renal hyperperfusion Renal function had been improving. Today's labs are not available. Needs continued diuresis. Change to PO. On Lasix 40 daily and Diuril 250, change to daily. Free water intake encouraged. Have asked the nurse to given water Q2hrs. On D5@ 30 ml/hr.Stop fluids when sodium improves. Would prefer to remove Solitario but reportedly has skin breakdown and due to size, mobility is difficult. Treated for Yuly UTI. Creatinine continue to improve, K is better. (2) Tachycardia ICD Codes: R00.0 - Tachycardia, unspecified Plan: Improved. A fib, On Cardizem. Also PO Lopressor, 12.5 BID. (3) Pneumonia ICD Codes: J18.9 - Pneumonia, unspecified organism Status: Acute Plan: ID following, off antibiotics. (4) Septic shock ICD Codes: A41.9 - Sepsis, unspecified organism; R65.21 - Severe sepsis with septic shock Plan: Pseudomonas sepsis Off all antibiotic therapy TLC has been removed. Continue supportive care (5) Respiratory failure ICD Codes: J96.90 - Respiratory failure, unspecified, unspecified whether with hypoxia or hypercapnia Plan: Successfully extubated Monitor respiratory status Plan patient was seen and examined. Agree with above assessment and plan. Shey Marcelino MD Dec 07, 2017 12:16
[2017-12-07] MEDS: DEXTROSE 5% IN WATE 1000ML INJ 1,000 ML IV SCH (14:18)
--- NOTE | 2017-12-07 14:55 | RADRPT ---
EXAM DATE/TIME: 12/07/2017 13:59 [facility] COMPARISON: No previous studies available for comparison. INDICATIONS : Swelling. MEDICAL HISTORY : Cardiovascular disease. Hypertension. Hernia, hiatal. SURGICAL HISTORY : Appendectomy. ENCOUNTER: Subsequent ACUITY: 1 day PAIN SCORE: 0/10 LOCATION: Bilateral leg. TECHNIQUE: Venous ultrasound of the left and right leg was performed from the inguinal ligament to the proximal calf. Real-time, color Doppler and spectral tracing, compression and augmentation techniques were us ed. FINDINGS: RIGHT LEG: There is normal compressibility of the deep venous system from the inguinal region to the proximal ca lf. No echogenic clot is seen in the lumen of the common femoral, femoral, popliteal, and posterior tibial veins. There is a normal response of the venous system to proximal and distal augmentation an d respiration. LEFT LEG: There is normal compressibility of the deep venous system from the inguinal region to the proximal ca lf. No echogenic clot is seen in the lumen of the common femoral, femoral, popliteal, and posterior tibial veins. There is a normal response of the venous system to proximal and distal augmentation an d respiration. CONCLUSION: Normal examination. Perry Bowden MD on December 07, 2017 at 14:53 Board Certified Radiologist. This report was verified electronically.
[2017-12-07 15:13] LABS: RETIC % 0.9 % (0.4-3.0)
[2017-12-07 16:19] LABS: FOLATE 9.3 NG/ML (3.1-17.5)
[2017-12-08] VITALS (7 sets, daily range): BP systolic 104–129; BP diastolic 53–65; PULSE 82–101; RESP 15–20; TEMP 97.1–98.9; O2SAT 95–97
[2017-12-08] MEDS: NYSTATIN 100,000 UNIT/GM CREAM 15 GM TOPICAL SCH ×5 (00:51→23:16)
[2017-12-08] MEDS: DILTIAZEM HCL 60 MG TAB PO SCH ×5 (00:52→23:16)
[2017-12-08] MEDS: CHLORHEXIDINE GLUCONATE 2 % 1 PACK (2 CLOTHS) TOP SCH (04:00)
[2017-12-08] MEDS: CHLORHEXIDINE 0.12% (ORAL KIT) 15 ML CUP MT SCH ×2 (07:54→19:59)
[2017-12-08] MEDS: FUROSEMIDE 40 MG TAB PO SCH (07:56)
[2017-12-08] MEDS: DOCUSATE SODIUM 50 MG/SENNA 8.6 MG TAB PO SCH ×2 (07:56→19:58)
[2017-12-08] MEDS: VANCOMYCIN 25 MG/ML SUSP 100 ML BOTTLE PO SCH ×4 (07:56→19:59)
[2017-12-08] MEDS: METOPROLOL TARTRATE 25 MG TAB PO SCH ×2 (07:57→19:59)
[2017-12-08] MEDS: CHLOROTHIAZIDE 250 MG TAB PO SCH (07:57)
[2017-12-08] MEDS: FAMOTIDINE 20 MG/2 ML VIAL IV PUSH SCH ×2 (07:58→19:58)
--- NOTE | 2017-12-08 08:41 | PD.ONC.PN ---
Subjective Subjective Remarks Afebrile overnight. Patient resting in bed in nad. Patient received 2 units pRBC overnight. she states she is tired bc she was up most of the night receiving blood transfusion. Objective Data Date Time Temp Pulse Resp B/P (MAP) Pulse Ox O2 Delivery O2 Flow Rate FiO2 12/08/17 04:00 98.9 101 18 119/53 (75) 97 12/08/17 00:00 98.2 96 20 115/56 (75) 97 12/07/17 22:22 98.5 93 17 118/61 98 12/07/17 22:06 98.3 89 16 122/59 95 12/07/17 20:00 98.9 107 20 101/62 (75) 99 12/07/17 16:00 97.5 84 18 120/68 (85) 99 12/07/17 12:00 97.8 89 17 112/52 (72) 99 12/08/17 12/08/17 12/08/17 07:00 15:00 23:00 Intake Total 1321 ml Output Total 500 ml Balance 821 ml Result Diagram: 12/07/17 0354 12/07/17 0354 Laboratory Results Laboratory Tests Test 12/07/17 14:08 Haptoglobin 140 MG/DL Lactate Dehydrogenase 217 U/L Vitamin B12 Level 1438 PG/ML Folate 9.3 NG/ML Administered Medications Medications (Trade) Dose Ordered Sig/Mirta Route PRN Reason Start Time Stop Time Status Last Admin Dose Admin Albuterol/ Ipratropium (Duoneb Neb) 1 ampule Q2HR NEB PRN INH WHEEZING 11/15/17 14:00 11/17/17 23:39 Acetaminophen (Tylenol) 650 mg Q6H PRN PO PAIN 1-6 AND/OR FEVER >101F 11/15/17 14:00 11/27/17 16:05 Famotidine (Pepcid Inj) 10 mg Q12HR IV PUSH 11/15/17 21:00 12/08/17 07:58 Ondansetron HCl (Zofran Inj) 4 mg Q6H PRN IV PUSH NAUSEA OR VOMITING 11/15/17 14:00 11/27/17 17:52 Heparin Sodium (Porcine) (Heparin Inj) 5,000 units Q8H SQ 11/15/17 15:00 Future Hold 12/02/17 05:19 Miscellaneous Information 1 Q361D XX 11/15/17 14:00 11/15/17 19:00 Chlorhexidine Gluconate (Chlorhexidine 2% Cloth) 3 pack Taper DAILY@04 TOP 11/16/17 04:00 11/12/18 03:59 11/30/17 04:00 Senna/Docusate Sodium (Zelda-Colace) 1 tab BID PO 11/15/17 21:00 12/08/17 07:56 Chlorhexidine Gluconate (Peridex 0.12% Liq) 15 ml BID@08,20 MT 11/16/17 20:00 12/01/17 08:00 Vancomycin HCl (Vancomycin 25 Mg/ml Liq) 125 mg QID PO 11/24/17 09:00 12/14/17 08:59 12/08/17 07:56 Acetaminophen/ Hydrocodone Bitart ([place] 5-325 Mg) 1 tab Q4H PRN PO PAIN SCALE 7 TO 10 11/24/17 18:15 12/07/17 09:05 Nystatin (Mycostatin Cream) 1 applic Q6HR TOPICAL 11/26/17 12:00 12/08/17 05:00 Diltiazem HCl (Cardizem) 60 mg Q6HR PO 11/29/17 06:15 12/08/17 05:01 Metoprolol Tartrate (Lopressor) 12.5 mg Q12HR PO 11/30/17 15:00 12/08/17 07:57 Dextrose 1,000 ml @ 30 mls/hr Q24H IV 12/04/17 13:00 12/07/17 14:18 Chlorothiazide (Diuril) 250 mg DAILY PO 12/06/17 09:00 12/08/17 07:57 Furosemide (Lasix) 40 mg DAILY PO 12/06/17 09:00 12/08/17 07:56 Objective Remarks GENERAL: Morbidly obese female, lethargic, lying supine in bed. SKIN: Warm and dry. HEAD: Normocephalic. EYES: No injection or drainage. NECK: Supple, trachea midline. CARDIOVASCULAR: +S1/S2 RESPIRATORY: anterior west clear. GASTROINTESTINAL: Abdomen soft, non-tender, nondistended. EXTREMITIES: No cyanosis NEUROLOGICAL: awake, following commands, answering questions. Assessment/Plan Problem List: (1) Normocytic anemia ICD Codes: D64.9 - Anemia, unspecified Plan: ---TIBC low, ferritin elevated, consistent with anemia of chronic disease which is consistent with the patient's multiple comorbidities --no obvious bleeding --stool hemoccult pending (2) Thrombocytopenia ICD Codes: D69.6 - Thrombocytopenia, unspecified Plan: --suspect consumptive process -- recent Pseudomonas septicemia secondary to a complicated urinary tract infection and C diff colitis, she has significant infectious etiologies which could explain a peripheral consumption of her platelets secondary to thrombin activation. (DIC) --HIT negative. --U/S upper extremity is negative for DVT --U/S lower extremity is negative for DVT Assessment 67y/o female with thrombocytopenia associated with anemia. h/o morbid obesity, has a history of MRSA pneumonia, history of chronic hypercapnia, hypoxic respiratory failure, history of gastroesophageal reflux disease, hypertension, diabetes mellitus, hyperlipidemia, A. fib, chronic oxygen supplementation HPI (brought forward for continuity of care: admitted to [facility] on 10/2017 after she was found to be non-responsive at her [facility] facility. She was intubated in the field and was brought into the emergency department. She was noted to be septic. Her lactic acid was elevated at close to seven. She was in acute renal failure. She had leukocytosis. The patient was noted to have Pseudomonas bacteremia associated with Pseudomonas septicemia (urosepsis) and was admitted to the critical care unit on the ventilator. She remained in the ICU up until 12/04/2017. The patient was extubated after a relatively brief period time on the ventilator. While on the ventilator, she did require vasopressor support. Over the course of this hospitalization, the patient's renal function has improved. Her respiratory status has improved. From a hematologic standpoint, she has had significant worsening of her anemia during this hospitalization with a hemoglobin of 11 gm/dl at the time of admission. Her hemoglobin has dropped down to a griffin of 7.7. She has also developed progressive thrombocytopenia since she was admitted with a presenting platelet count of close to 310,000. The platelet count has nadired at just over 60,000. Heparin/ platelet factor IV antibodies are negative. Plan 1. await CBC today 2. continue supportive care Attending Statement The exam, history, and the medical decision-making described in the above note were completed with the assistance of the mid-level provider. I reviewed and agree with the findings presented. I attest that I had a [id number] encounter with the patient on the same day, and personally performed and documented my assessment and findings in the medical record. Sespsis/ARF multiple co-morbidities anemia and thrombocytopenia due to DIC and Sepsis Iron studies --->ACD, B12 normal no hemolysis Hb 9.[address] improving blood product support prn 0/n events reviewed Anu Martinez Dec 08, 2017 08:40 Nicholas Sanches MD Dec 08, 2017 12:18
--- NOTE | 2017-12-08 09:32 | HHI.PR ---
Subjective Remarks in no acute distress. denies pain. no fever. Objective Vitals Vital Signs Date Time Temp Pulse Resp B/P (MAP) Pulse Ox O2 Delivery O2 Flow Rate FiO2 12/08/17 08:00 97.7 92 16 129/60 (83) 95 12/08/17 04:00 98.9 101 18 119/53 (75) 97 12/08/17 00:00 98.2 96 20 115/56 (75) 97 12/07/17 22:22 98.5 93 17 118/61 98 12/07/17 22:06 98.3 89 16 122/59 95 12/07/17 20:00 98.9 107 20 101/62 (75) 99 12/07/17 16:00 97.5 84 18 120/68 (85) 99 12/07/17 12:00 97.8 89 17 112/52 (72) 99 I/O 12/07/17 12/07/17 12/07/17 12/08/17 12/08/17 12/08/17 07:00 15:00 23:00 07:00 15:00 23:00 Intake Total 0 ml 810 ml 1321 ml Output Total 400 ml 350 ml 500 ml Balance -400 ml 460 ml 821 ml Intake Oral 0 ml 300 ml 0 ml IV Total 121 ml Packed Cells 400 ml 1200 ml Blood Product IV Normal Saline Flush 110 ml Output Urine Total 400 ml 350 ml 500 ml # Bowel Movements 1 1 Result Diagram: 12/07/17 0354 12/07/17 0354 Imaging Last Impressions Upper Extremity Ultrasound 12/07/17 0000 Signed Impressions: Service Date/Time: Thursday, December 07, 2017 08:56 - CONCLUSION: 1. Negative for deep venous thrombosis. Dorian Vasquez MD Lower Extremity Ultrasound 12/07/17 0000 Signed Impressions: Service Date/Time: Thursday, December 07, 2017 13:59 - CONCLUSION: Normal examination. Perry Bowden MD Head CT 12/06/17 0000 Signed Impressions: Service Date/Time: November 21:57 - CONCLUSION: 1. Senescent changes with mild small vessel ischemic periventricular white matter demyelination. 2. Minimal bilateral maxillary sinus because of disease. 3. No acute intracranial normality. Riccardo Stack MD Chest X-Ray 12/03/17 0000 Signed Impressions: Service Date/Time: Sunday, December 03, 2017 08:10 - CONCLUSION: Persistent, but improved, left lower lobe consolidation. Dorian Vasquez MD Chest CT 11/26/17 0000 Signed Impressions: Service Date/Time: Sunday, November 26, 2017 17:16 - CONCLUSION: 1. Improvement in bilateral lung consolidation since November 15. Interval development of small bilateral effusions, right greater than left. Sachin Gonzalez MD Abdomen/Pelvis CT 11/26/17 0000 Signed Impressions: Service Date/Time: Sunday, November 26, 2017 17:16 - CONCLUSION: Very limited exam because of arms and body habitus. I don't see abscess or free air. Double-J stent on the right. Joseph Baeza MD FACR Abdomen X-Ray 11/17/17 0000 Signed Impressions: Service Date/Time: Friday, November 17, 2017 19:04 - CONCLUSION: The proximal tip of the double-J stent is either in the expected region of the right renal pelvis or proximal ureter. Allen Mensah MD Objective Remarks GENERAL: morbidly obese, in no apparent distress. CARDIOVASCULAR: Regular rate and regular rhythm without murmurs, gallops, or rubs. RESPIRATORY: Clear to auscultation. Breath sounds equal bilaterally. No wheezes , rales, or rhonchi. GASTROINTESTINAL: Abdomen soft, non-tender, nondistended. Normal, active bowel sounds MUSCULOSKELETAL: Extremities without clubbing, cyanosis, or edema. NEURO: Alert & Oriented x4 to person, place, time, situation. Moves all ext x4 Procedures endotracheal intubation/ cystoscopy and stent placement. Medications and IVs Inpatient Medications Acetaminophen (Tylenol Supp) 650 mg ONCE ONCE RECTAL Last administered on at 12:39; Start 11/15/17 at 12:30; Stop 11/15/17 at 12:31; Status DC Acetaminophen (Tylenol) 650 mg Q6H PRN PO PAIN 1-6 AND/OR FEVER >101F Last administered on 11/27/17at 16:05; Start 11/15/17 at 14:00 Acetaminophen/ Hydrocodone Bitart ([place] 5-325 Mg) 1 tab Q4H PRN PO PAIN SCALE 7 TO 10 Last administered on 12/07/17at 09:05; Start 11/24/17 at 18:15 Acetazolamide Sodium (Diamox Inj) 500 mg Q24H IV Last administered on at 08:25; Start 11/30/17 at 09:00; Stop 12/01/17 at 07:34; Status DC Albumin Human 100 ml @ 60 mls/hr ONCE ONCE IV Last administered on 11/28/17at 23:38; Start 11/28/17 at 23:00; Stop 11/29/17 at 00:39; Status DC Albuterol/ Ipratropium (Duoneb Neb) 1 ampule Q4HR NEB NEB Last administered on 11/26/17at 11:16; Start 11/22/17 at 12:00; Stop 11/26/17 at 11:59; Status DC Amiodarone HCl 150 mg/Dextrose 103 ml @ 600 mls/hr Q11M ONCE IV Last administered on 11/15/17at 13:24; Start 11/15/17 at 13:03; Stop 11/15/17 at 13:13; Status DC Amiodarone HCl 200 mg/Dextrose 101 ml @ 202 mls/hr Q12H IV Last administered on 11/19/17at 12:00; Start 11/18/17 at 12:00; Stop 11/19/17 at 17:52; Status DC Amiodarone HCl 450 mg/Dextrose 250 ml @ 33.33 mls/ hr Q7H31M PRN IV Per Protocol Last administered on 11/15/17at 13:51; Start 11/15/17 at 13:13; Stop at 20:08; Status DC Amiodarone HCl 450 mg/Sodium Chloride 250 ml @ 33.33 mls/ hr Q7H31M PRN IV Per Protocol Last administered on 11/18/17at 05:03; Start 11/15/17 at 20:15; Stop at 10:21; Status DC Azithromycin 500 mg/Sodium Chloride 250 ml @ 250 mls/hr Q24H IV Last administered on 11/17/17at 08:10; Start 11/16/17 at 08:00; Stop 11/17/17 at 09:45; Status DC Aztreonam 1000 mg/ Sodium Chloride 100 ml @ 200 mls/hr Q8H IV ; Start 11/15/17 at 22:00; Stop 11/15/17 at 22:00; Status DC Bisacodyl (Dulcolax Supp) 10 mg DAILY PRN RECTAL SEVERE CONSITIPATION; Start at 14:00 Cefazolin Sodium (Ancef Inj) 3,000 mg ONCE ONCE IV ; Start 11/16/17 at 14:45; Stop 11/16/17 at 15:34; Status DC Cefazolin Sodium 3000 mg/Sodium Chloride 130 ml @ 200 mls/hr CONTENT SPECIALIST IV ; Start 11/16/17 at 15:45; Stop 11/19/17 at 15:44; Status DC Ceftazidime 2000 mg/Sodium Chloride 100 ml @ 200 mls/hr Q8H IV Last administered on 11/26/17at 09:21; Start 11/25/17 at 18:00; Stop 11/26/17 at 09:50 ; Status DC Ceftolozane/ Tazobactam 1500 mg/Sodium Chloride 100 ml @ 100 mls/hr Q8H IV Last administered on 12/02/17at 18:25; Start 11/26/17 at 11:00; Stop 12/03/17 at 10:16; Status DC Ceftolozane/ Tazobactam 375 mg/ Sodium Chloride 100 ml @ 100 mls/hr Q8H IV Last administered on 11/19/17at 13:14; Start 11/15/17 at 17:30; Stop 11/19/17 at 14: 37; Status DC Chlorhexidine Gluconate (Chlorhexidine 2% Cloth) 3 pack UNSCH PRN TOP HYGIENIC CARE; Start 11/15/17 at 14:00 Chlorhexidine Gluconate (Peridex 0.12% Liq) 15 ml BID@08,20 MT Last administered on 12/01/17at 08:00; Start 11/16/17 at 20:00 Chlorothiazide (Diuril) 250 mg DAILY PO Last administered on 12/08/17at 07:57; Start 12/06/17 at 09:00 Chlorothiazide Sodium (Diuril Inj) 250 mg BID IV Last administered on at 10:49; Start 12/04/17 at 21:00; Stop 12/05/17 at 12:18; Status DC Clindamycin/ Sodium Chloride 50 ml @ 100 mls/hr Q6H IV Last administered on 11/16/17at 05:05; Start 11/15/17 at 18:00; Stop 11/16/17 at 06:38; Status DC Dexmedetomidine HCl 1000 mcg/ Sodium Chloride 250 ml @ 9.07 mls/hr TITRATE PRN IV SEDATION Last administered on 11/19/17at 23:52; Start 11/19/17 at 08:15; Stop 11/22/17 at 09:38; Status DC Dexmedetomidine HCl 200 mcg/ Sodium Chloride 52 ml @ 9.43 mls/hr TITRATE PRN IV SEDATION; Start 11/18/17 at 10:30; Stop 11/18/17 at 11:03; Status DC Dextrose 1,000 ml @ 30 mls/hr Q24H IV Last administered on 12/07/17at 14:18; Start 12/04/17 at 13:00 Dextrose (D50w (Vial) Inj) 25 ml UNSCH PRN IV PUSH HYPOGLYCEMIA-SEE COMMENTS; Start 11/15/17 at 14:00 Diatrizoate Meglum/ Diatrizoate Sod ( Gastroview Liq) 18 ml ONCE ONCE PO Last administered on 11/26/17at 11:34; Start 11/26/17 at 09:59; Stop 11/26/17 at 11:19; Status DC Digoxin (Lanoxin Inj) 0.25 mg STAT ONCE IV PUSH Last administered on 11/15/17at 17:54; Start 11/15/17 at 16:15; Stop 11/15/17 at 17:27; Status DC Diltiazem HCl (Cardizem Inj) 10 mg BOLUS ONCE IV PUSH ; Start 11/15/17 at 12:30 ; Stop 11/15/17 at 12:31; Status DC Diltiazem HCl (Cardizem) 60 mg Q6HR PO Last administered on 12/08/17at 05:01; Start 11/29/17 at 06:15 Diltiazem HCl 125 mg/Sodium Chloride 125 ml @ 5 mls/hr TITRATE PRN IV tachycardia Last administered on 11/17/17at 10:26; Start 11/15/17 at 12:30; Stop at 10:21; Status DC Dopamine HCl/ Dextrose 500 ml @ 0 mls/hr TITRATE PRN IV Blood Pressure Management; Start 11/15/17 at 12:45; Stop 11/18/17 at 10:21; Status DC Epinephrine HCl 2 mg/Dextrose 252 ml @ 22.68 mls/ hr TITRATE PRN IV Blood Pressure Management Last administered on 11/15/17at 19:34; Start 11/15/17 at 15:45 ; Stop 11/15/17 at 22:43; Status DC Epinephrine HCl 8 mg/Dextrose 250 ml @ 5.62 mls/hr TITRATE PRN IV Blood Pressure Management Last administered on 11/15/17at 23:15; Start 11/15/17 at 22:45 ; Stop 11/18/17 at 10:21; Status DC Famotidine (Pepcid Inj) 10 mg Q12HR IV PUSH Last administered on 12/08/17at 07: 58; Start 11/15/17 at 21:00 Fentanyl Citrate 250 ml @ 5 mls/hr TITRATE PRN IV SEDATION; Start 11/16/17 at 16 :00; Stop 11/18/17 at 10:21; Status DC Fluconazole (Diflucan) 100 mg DAILY PO Last administered on 12/02/17at 08:40; Start 11/26/17 at 20:00; Stop 12/03/17 at 10:16; Status DC Furosemide (Lasix Inj) 40 mg DAILY IV PUSH Last administered on 12/05/17at 10:49 ; Start 12/05/17 at 09:00; Stop 12/05/17 at 12:18; Status DC Furosemide (Lasix) 40 mg DAILY PO Last administered on 12/08/17at 07:56; Start 12/06/17 at 09:00 Furosemide 100 mg/ Sodium Chloride 100 ml @ 10 mls/hr CONTINUOUS IV Last administered on 11/27/17at 08:49; Start 11/21/17 at 11:00; Stop 11/27/17 at 09:13 ; Status DC Heparin Sodium (Porcine) (Heparin Inj) 5,000 units Q8H SQ Last administered on 12/02/17at 05:19; Start 11/15/17 at 15:00; Status Future Hold Hydrocortisone Sodium Succinate (SoluCORTEF INJ) 25 mg DAILY IV PUSH Last administered on 11/28/17at 08:54; Start 11/26/17 at 09:00; Stop 11/29/17 at 08:59 ; Status DC Insulin Human Regular (NovoLIN R SUPPLEMENTAL SCALE) 1 Q6HR SQ Last administered on 11/20/17at 17:43; Start 11/15/17 at 18:00; Stop 11/28/17 at 22:56; Status DC Lactulose (Lactulose Liq) 30 ml DAILY PRN PO SEVERE CONSITIPATION; Start at 14:00 Levofloxacin/ Dextrose 150 ml @ 100 mls/hr Q48H IV ; Start 11/17/17 at 14:00; Stop 11/17/17 at 14:00; Status DC Linezolid 300 ml @ 300 mls/hr Q12H IV Last administered on 12/03/17at 07:00; Start 11/16/17 at 07:00; Stop 12/03/17 at 10:16; Status DC Magnesium Hydroxide (Milk Of Magnesia Liq) 30 ml Q12H PRN PO Mild constipation ; Start 11/15/17 at 14:00 Magnesium Sulfate/ Dextrose 100 ml @ 100 mls/hr ONCE ONCE IV Last administered on 11/26/17at 09:20; Start 11/26/17 at 07:15; Stop 11/26/17 at 08:14 ; Status DC Metolazone (Zaroxolyn) 5 mg ONCE ONCE PO Last administered on 11/23/17at 09:57; Start 11/23/17 at 09:30; Stop 11/23/17 at 09:31; Status DC Metoprolol Tartrate (Lopressor Inj) 5 mg ONCE ONCE IV PUSH Last administered on 11/28/17at 23:39; Start 11/28/17 at 23:00; Stop 11/28/17 at 23:01; Status DC Metoprolol Tartrate (Lopressor) 12.5 mg Q12HR PO Last administered on at 07:57; Start 11/30/17 at 15:00 Metronidazole 100 ml @ 100 mls/hr Q8H IV ; Start 11/23/17 at 08:15; Stop at 08:25; Status DC Midazolam HCl (Versed Inj) 5 mg ONCE ONCE IV PUSH ; Start 11/16/17 at 16:00; Stop 11/16/17 at 16:01; Status DC Miscellaneous Information 1 [id number] Last administered on 11/15/17at 19:00; Start 11/15/17 at 14:00 Non-Formulary Medication VANCOMYCIN STOCK SOLUT... QID PO Last administered on 11/23/17at 20:13; Start 11/23/17 at 09:00; Stop 11/24/17 at 08:04; Status DC Norepinephrine Bitartrate 250 ml @ 7.5 mls/hr TITRATE PRN IV Blood pressure management Last administered on 11/15/17at 21:26; Start 11/15/17 at 12:15; Stop 11/15/17 at 22:41; Status DC Norepinephrine Bitartrate 16 mg/ Dextrose 250 ml @ 1.87 mls/hr TITRATE PRN IV Blood pressure management Last administered on 11/20/17at 06:15; Start 11/15/17 at 22:45; Stop 11/21/17 at 07:28; Status DC Nystatin (Mycostatin Cream) 1 applic Q6HR TOPICAL Last administered on at 05:00; Start 11/26/17 at 12:00 Ondansetron HCl (Zofran Inj) 4 mg Q6H PRN IV PUSH NAUSEA OR VOMITING Last administered on 11/27/17at 17:52; Start 11/15/17 at 14:00 Oseltamivir Phosphate (Tamiflu Liq) 75 mg Q12H PO Last administered on at 17:45; Start 11/15/17 at 18:00; Stop 11/16/17 at 10:12; Status DC Pharmacy Profile Note 0 ml @ 0 mls/hr UNSCH OTHER ; Start 11/15/17 at 14:00; Stop 11/15/17 at 17:23; Status DC Potassium Chloride 40 meq/ Sodium Chloride 520 ml @ 130 mls/hr ONCE ONCE IV- CENTRAL ; Start 11/23/17 at 09:00; Stop 11/23/17 at 09:21; Status DC Potassium Bicarb/ Potassium Chloride (K-Lyte Cl Eff) 50 meq ONCE ONCE PO Last administered on 11/29/17at 09:15; Start 11/29/17 at 07:30; Stop 11/29/17 at 07:43; Status DC Potassium Chloride (KCl) 20 meq ONCE ONCE PO Last administered on 11/28/17at 11 :49; Start 11/28/17 at 10:00; Stop 11/28/17 at 10:01; Status DC Propofol 100 ml @ 0 mls/hr TITRATE PRN IV SEDATION; Start 11/15/17 at 11:45; Stop 11/18/17 at 10:21; Status DC Senna/Docusate Sodium (Zelda-Colace) 1 tab BID PO Last administered on at 07:56; Start 11/15/17 at 21:00 Sennosides (Senokot) 17.2 mg Q12H PRN PO Moderate constipation; Start 11/15/17 at 14:00 Sodium Chloride 500 ml @ 500 mls/hr BOLUS ONCE IV Last administered on at 09:15; Start 11/27/17 at 09:15; Stop 11/27/17 at 11:05; Status DC Succinylcholine Chloride (Quelicin Inj) 100 mg ONCE ONCE IV PUSH ; Start at 16:00; Stop 11/16/17 at 16:01; Status DC Terbutaline Sulfate (Brethine Inj) 1 mg UNSCH PRN SQ For Extravasation; Start 11/15/17 at 12:45 Vancomycin HCl (VANCOMYCIN for oral use only) 125 mg QID PO ; Start 11/23/17 at 09:00; Stop 11/23/17 at 09:00; Status DC Vancomycin HCl (Vancomycin 25 Mg/ml Liq) 125 mg QID PO Last administered on at 07:56; Start 11/24/17 at 09:00; Stop 12/14/17 at 08:59 Vancomycin HCl 500 mg/Sodium Chloride 100 ml @ 200 mls/hr ONCE ONCE IV ; Start 11/15/17 at 15:00; Stop 11/15/17 at 15:29; Status DC Vancomycin HCl 1000 mg/Sodium Chloride 250 ml @ 250 mls/hr ONCE ONCE IV Last administered on 11/15/17at 12:45; Start 11/15/17 at 12:15; Stop 11/15/17 at 13:14; Status DC Vasopressin 40 units/Dextrose 100 ml @ 6 mls/hr [id number] IV Last administered on 11/20/17at 10:28; Start 11/15/17 at 14:12; Stop 11/21/17 at 07:28; Status DC A/P Assessment and Plan Metabolic Encephalopathy - improved Chronic Pain - Awake and alert - Lortab 5/325 mg PRN Acute hypoxic and hypercarbic respiratory failure- Extubated 11/22 Healthcare Associated Pneumonia Continue with oxygen keep sat >92% Bronchodilators, IS, - sputum culture: MRSA CT chest 11/26: Improvement in bilateral lung consolidation since November 15. small bilateral effusions, right greater than left. s/p Septic Shock - Atrial fibrillation with rapid ventricular response - continue metoprolol and cardizem. echo with EF 55%. Acute Kidney Injury - resolving. Acute pyelonephritis Metabolic alkalosis secondary to intravascular volume contraction Monitor renal function, I/O's, avoid nephrotoxins On IV Lasix and Diuril - s/p Emergent cysto with stent- f/u with Urology as outpatient. Renal is following- Dr. Lopez. -will dc garcia when more mobile. Super Morbid Obesity Lactic Acidosis- cleared Anion-gap Metabolic acidosis- resolved. Acute intravascular volume overload Severe acute protein calorie malnutrition -Pured diet, poor oral intake -Pepcid for GI prophylaxis -CT abdomen/pelvis: No abscess or free air History of prior MRSA pneumonia Acute pyelonephritis Pseudomonas bacteremia Positive C-diff - evaluated by ID. - Abx per Dr. Cartagena. Zyvox, Zerbaxa discontinued on 12/03 per ID, Continue PO Vanco. -11/25 urine cx : C. Albicans -11/20 BC :NGTD -11/17 BC: Coag negative staph 10/18 bottles..likely contaminant - 11/17 Urine cx :Pseudomonas - 2/1 blood cultures: pseudomonas - 2/1 urine culture: pseudomonas - 2/1 sputum culture: MRSA thrombocytopenia- with slight improvement. anemia heparin on hold- HIT ab negative- continue to monitor- check the stool for blood. hematology following. continue PT. Prophylaxis: SCDs, SQH held for thrombocytopenia. Pepcid Discharge Planning possible discharge early this week if stable. Vianey Dupree MD Dec 08, 2017 09:31
[2017-12-08] MEDS: DEXTROSE 5% IN WATE 1000ML INJ 1,000 ML IV SCH (11:40)
[2017-12-08 13:31] LABS: AUTOMATED NEUTROPHIL # 4.6 TH/MM3 (1.8-7.7); BASOPHIL % 0.5 % (0.0-2.0); EOSINOPHIL # 0.5 TH/MM3 (0-0.4); EOSINOPHIL % 6.6 % (0.0-4.0); HEMATOCRIT 27.9 % (35.0-46.0); HEMOGLOBIN 9.4 GM/DL (11.6-15.3); LYMPHOCYTE # 1.4 TH/MM3 (1.0-4.8); MEAN CELL VOLUME 88.2 FL (80.0-100.0); MEAN CORPUSCULAR HEMOGLOBIN 29.7 PG (27.0-34.0); MEAN CORPUSCULAR HGB CONC 33.7 % (32.0-36.0); MEAN PLATELET VOLUME 8.2 FL (7.0-11.0); MONO % 13.3 % (0.0-8.0); NEUT % 61.6 % (16.0-70.0); PLATELET COUNT 89 TH/MM3 (150-450); RED BLOOD COUNT 3.16 MIL/MM3 (4.00-5.30); RED CELL DISTRIBUTION WIDTH 17.5 % (11.6-17.2); WHITE BLOOD COUNT 7.5 TH/MM3 (4.0-11.0)
[2017-12-08 14:34] LABS: BANDS 3 % (0-6); BASOPHILS 2 % (0-2); CORRECTED NUCLEATED RBC 1 /100 WBC (0-0); LYMPHOCYTES 12 % (9-44); MONOCYTES 6 % (0-8); MYELOCYTES 1 % (0-0); NEUTROPHIL # MANUAL DIFF 5.8 TH/MM3 (1.8-7.7); NUCLEATED RED BLOOD CELL 1 (0-0); POLYS (SEG NEUTROPHILS) 73 % (16-70)
--- NOTE | 2017-12-08 15:37 | HHI.NPPN ---
Subjective General Problems: Edema Renal Failure: Acute Additional Remarks no acute complaints Review of Systems General General Remarks difficult to ascertain. Cardiovascular Cardiac: Edema Objective Data Data Vital Signs Date Time Temp Pulse Resp B/P (MAP) Pulse Ox O2 Delivery O2 Flow Rate FiO2 12/08/17 12:00 97.1 82 16 109/55 (73) 95 12/08/17 08:00 97.7 92 16 129/60 (83) 95 12/08/17 04:00 98.9 101 18 119/53 (75) 97 12/08/17 00:00 98.2 96 20 115/56 (75) 97 12/07/17 22:22 98.5 93 17 118/61 98 12/07/17 22:06 98.3 89 16 122/59 95 12/07/17 20:00 98.9 107 20 101/62 (75) 99 12/07/17 16:00 97.5 84 18 120/68 (85) 99 -: 12/08/17 1250 12/07/17 0354 Tubes & Lines: Solitario Physical Exam General Appearance: Well Nourished, No Acute Distress, Comfortable, Obese Eyes Eye Exam: Pupils Equal Throat Throat Exam: Oral Mucosa [place] & Moist Neck Neck Exam: Neck Supple Pulmonary Resp Exam: Breath Sounds Equal, No Distress, Crackles Cardiology CV Exam: Regular, Good Perfusion, Tachycardia Gastrointestinal/Abdomen GI Exam: Soft, Non-Tender, Bowel Sounds Present, Positive Bowel Movement Musculoskeletal MS Exam: Joints Intact, Normal Tone, Unable to Ambulate Integumentary Skin Exam: Warm, Dry Extremeties Extremities Exam: Moderate Edema, Pitting Edema, Dependent Edema Neurologic Neuro Exam: Alert, Awake, Oriented, Speech Clear Psychiatric Psych Exam: Appropriate Responses Assessment/Plan Discussed Condition With: Patient Assessment Summary: FREDDY/Acute Renal Failure, Fluid/Volume Overload, Hypotension Electrolyte Assessment: Hypokalemia Problem List: (1) FREDDY (acute kidney injury) ICD Codes: N17.9 - Acute kidney failure, unspecified Plan: In January 2017 her renal function was normal. Had FREDDY in September, creatinine at discharge was 1.8 Obstructive uropathy, s/p R ureteral stent placement on the 16 of November. FREDDY also due to urosepsis with renal hyperperfusion Renal function had been improving. Creatinine improved to 1.55 today. Continue Lasix 40 daily and Diuril 250 daily. Free water intake encouraged. Na 143 now, will d/c D5W Would prefer to remove Solitario but reportedly has skin breakdown and due to size, mobility is difficult. Treated for Yuly UTI. (2) Tachycardia ICD Codes: R00.0 - Tachycardia, unspecified Plan: Improved. A fib, On Cardizem. Also PO Lopressor, 12.5 BID. (3) Pneumonia ICD Codes: J18.9 - Pneumonia, unspecified organism Status: Acute Plan: ID following, off antibiotics. (4) Septic shock ICD Codes: A41.9 - Sepsis, unspecified organism; R65.21 - Severe sepsis with septic shock Plan: Pseudomonas sepsis Off all antibiotic therapy TLC has been removed. Continue supportive care (5) Respiratory failure ICD Codes: J96.90 - Respiratory failure, unspecified, unspecified whether with hypoxia or hypercapnia Plan: Successfully extubated Monitor respiratory status Jorge Archer MD Dec 08, 2017 15:36
[2017-12-09] VITALS (8 sets, daily range): BP systolic 99–110; BP diastolic 50–64; PULSE 84–103; RESP 16–20; TEMP 96.4–97.9; O2SAT 93–100
[2017-12-09] MEDS: CHLORHEXIDINE GLUCONATE 2 % 1 PACK (2 CLOTHS) TOP SCH (04:00)
[2017-12-09] MEDS: DILTIAZEM HCL 60 MG TAB PO SCH ×3 (04:29→17:37)
[2017-12-09] MEDS: NYSTATIN 100,000 UNIT/GM CREAM 15 GM TOPICAL SCH ×3 (04:30→17:38)
[2017-12-09 07:18] LABS: HEMATOCRIT 25.8 % (35.0-46.0); HEMOGLOBIN 8.9 GM/DL (11.6-15.3); MEAN CORPUSCULAR HEMOGLOBIN 29.9 PG (27.0-34.0); MEAN CORPUSCULAR HGB CONC 34.4 % (32.0-36.0); MEAN PLATELET VOLUME 8.5 FL (7.0-11.0); PLATELET COUNT 112 TH/MM3 (150-450); RED BLOOD COUNT 2.96 MIL/MM3 (4.00-5.30); RED CELL DISTRIBUTION WIDTH 17.5 % (11.6-17.2); WHITE BLOOD COUNT 7.5 TH/MM3 (4.0-11.0)
[2017-12-09 07:37] LABS: AST (GOT) 12 U/L (15-37); BICARBONATE 34.1 MEQ/L (21.0-32.0); BLOOD UREA NITROGEN 23 MG/DL (7-18); CALCIUM 9.2 MG/DL (8.5-10.1); CHLORIDE 100 MEQ/L (98-107); CREATININE 1.38 MG/DL (0.50-1.00); GLOMERULAR FILTRATION RATE 38 ML/MIN (>89); GLUCOSE,RANDOM 121 MG/DL (74-106); MAGNESIUM 1.1 MG/DL (1.5-2.5); SODIUM (NA) 140 MEQ/L (136-145)
[2017-12-09 07:39] LABS: ALT (GPT) 8 U/L (10-53); PHOSPHORUS 3.7 MG/DL (2.5-4.9)
[2017-12-09 07:41] LABS: ALKALINE PHOSPHATASE 95 U/L (45-117); TOTAL BILIRUBIN ADULT 0.3 MG/DL (0.2-1.0); TOTAL PROTEIN 5.1 GM/DL (6.4-8.2)
[2017-12-09] MEDS: CHLORHEXIDINE 0.12% (ORAL KIT) 15 ML CUP MT SCH ×2 (08:00→20:00)
[2017-12-09] MEDS: VANCOMYCIN 25 MG/ML SUSP 100 ML BOTTLE PO SCH ×4 (08:01→21:18)
[2017-12-09] MEDS: FUROSEMIDE 40 MG TAB PO SCH (08:01)
[2017-12-09] MEDS: FAMOTIDINE 20 MG/2 ML VIAL IV PUSH SCH ×2 (08:06→21:18)
[2017-12-09] MEDS: CHLOROTHIAZIDE 250 MG TAB PO SCH (08:06)
[2017-12-09] MEDS: METOPROLOL TARTRATE 25 MG TAB PO SCH ×2 (08:06→21:18)
[2017-12-09] MEDS: DOCUSATE SODIUM 50 MG/SENNA 8.6 MG TAB PO SCH ×2 (08:06→21:18)
--- NOTE | 2017-12-09 09:26 | HHI.PR ---
Subjective Remarks in no acute distress. denies pain. is more alert today. no fever. Objective Vitals Vital Signs Date Time Temp Pulse Resp B/P (MAP) Pulse Ox O2 Delivery O2 Flow Rate FiO2 12/09/17 08:00 96.9 90 16 99/53 (68) 93 12/09/17 04:00 96.8 103 20 103/52 (69) 93 12/09/17 00:04 96.5 90 20 108/54 (72) 94 12/09/17 00:00 86 12/08/17 20:20 82 12/08/17 20:00 98.3 95 20 123/65 (84) 96 12/08/17 16:00 97.5 93 15 104/61 (75) 95 12/08/17 12:00 97.1 82 16 109/55 (73) 95 I/O 12/08/17 12/08/17 12/08/17 12/09/17 12/09/17 12/09/17 07:00 15:00 23:00 07:00 15:00 23:00 Intake Total 1321 ml 800 ml 240 ml Output Total 500 ml 550 ml 875 ml Balance 821 ml 250 ml -635 ml Intake Oral 0 ml 800 ml 240 ml IV Total 121 ml Packed Cells 1200 ml Output Urine Total 500 ml 550 ml 875 ml # Bowel Movements 1 1 1 Result Diagram: 12/09/17 0650 12/09/17 0650 Imaging Last Impressions Upper Extremity Ultrasound 12/07/17 0000 Signed Impressions: Service Date/Time: Thursday, December 07, 2017 08:56 - CONCLUSION: 1. Negative for deep venous thrombosis. Dorian Vasquez MD Lower Extremity Ultrasound 12/07/17 0000 Signed Impressions: Service Date/Time: Thursday, December 07, 2017 13:59 - CONCLUSION: Normal examination. Perry Bowden MD Head CT 12/06/17 0000 Signed Impressions: Service Date/Time: November 21:57 - CONCLUSION: 1. Senescent changes with mild small vessel ischemic periventricular white matter demyelination. 2. Minimal bilateral maxillary sinus because of disease. 3. No acute intracranial normality. Riccardo Stack MD Chest X-Ray 12/03/17 0000 Signed Impressions: Service Date/Time: Sunday, December 03, 2017 08:10 - CONCLUSION: Persistent, but improved, left lower lobe consolidation. Dorian Vasquez MD Chest CT 11/26/17 0000 Signed Impressions: Service Date/Time: Sunday, November 26, 2017 17:16 - CONCLUSION: 1. Improvement in bilateral lung consolidation since November 15. Interval development of small bilateral effusions, right greater than left. Sachin Gonzlaez MD Abdomen/Pelvis CT 11/26/17 0000 Signed Impressions: Service Date/Time: Sunday, November 26, 2017 17:16 - CONCLUSION: Very limited exam because of arms and body habitus. I don't see abscess or free air. Double-J stent on the right. Joseph Baeza MD FACR Abdomen X-Ray 11/17/17 0000 Signed Impressions: Service Date/Time: Friday, November 17, 2017 19:04 - CONCLUSION: The proximal tip of the double-J stent is either in the expected region of the right renal pelvis or proximal ureter. Allen Mensah MD Objective Remarks GENERAL: morbidly obese, in no apparent distress. CARDIOVASCULAR: Regular rate and regular rhythm without murmurs, gallops, or rubs. RESPIRATORY: Clear to auscultation. Breath sounds equal bilaterally. No wheezes , rales, or rhonchi. GASTROINTESTINAL: Abdomen soft, non-tender, nondistended. Normal, active bowel sounds MUSCULOSKELETAL: Extremities without clubbing, cyanosis, or edema. NEURO: Alert & Oriented x4 to person, place, time, situation. Moves all ext x4 Procedures endotracheal intubation/ cystoscopy and stent placement. Medications and IVs Inpatient Medications Acetaminophen (Tylenol Supp) 650 mg ONCE ONCE RECTAL Last administered on at 12:39; Start 11/15/17 at 12:30; Stop 11/15/17 at 12:31; Status DC Acetaminophen (Tylenol) 650 mg Q6H PRN PO PAIN 1-6 AND/OR FEVER >101F Last administered on 11/27/17at 16:05; Start 11/15/17 at 14:00 Acetaminophen/ Hydrocodone Bitart ([place] 5-325 Mg) 1 tab Q4H PRN PO PAIN SCALE 7 TO 10 Last administered on 12/07/17at 09:05; Start 11/24/17 at 18:15 Acetazolamide Sodium (Diamox Inj) 500 mg Q24H IV Last administered on at 08:25; Start 11/30/17 at 09:00; Stop 12/01/17 at 07:34; Status DC Albumin Human 100 ml @ 60 mls/hr ONCE ONCE IV Last administered on 11/28/17at 23:38; Start 11/28/17 at 23:00; Stop 11/29/17 at 00:39; Status DC Albuterol/ Ipratropium (Duoneb Neb) 1 ampule Q4HR NEB NEB Last administered on 11/26/17at 11:16; Start 11/22/17 at 12:00; Stop 11/26/17 at 11:59; Status DC Amiodarone HCl 150 mg/Dextrose 103 ml @ 600 mls/hr Q11M ONCE IV Last administered on 11/15/17at 13:24; Start 11/15/17 at 13:03; Stop 11/15/17 at 13:13; Status DC Amiodarone HCl 200 mg/Dextrose 101 ml @ 202 mls/hr Q12H IV Last administered on 11/19/17at 12:00; Start 11/18/17 at 12:00; Stop 11/19/17 at 17:52; Status DC Amiodarone HCl 450 mg/Dextrose 250 ml @ 33.33 mls/ hr Q7H31M PRN IV Per Protocol Last administered on 11/15/17at 13:51; Start 11/15/17 at 13:13; Stop at 20:08; Status DC Amiodarone HCl 450 mg/Sodium Chloride 250 ml @ 33.33 mls/ hr Q7H31M PRN IV Per Protocol Last administered on 11/18/17at 05:03; Start 11/15/17 at 20:15; Stop at 10:21; Status DC Azithromycin 500 mg/Sodium Chloride 250 ml @ 250 mls/hr Q24H IV Last administered on 11/17/17at 08:10; Start 11/16/17 at 08:00; Stop 11/17/17 at 09:45; Status DC Aztreonam 1000 mg/ Sodium Chloride 100 ml @ 200 mls/hr Q8H IV ; Start 11/15/17 at 22:00; Stop 11/15/17 at 22:00; Status DC Bisacodyl (Dulcolax Supp) 10 mg DAILY PRN RECTAL SEVERE CONSITIPATION; Start at 14:00 Cefazolin Sodium (Ancef Inj) 3,000 mg ONCE ONCE IV ; Start 11/16/17 at 14:45; Stop 11/16/17 at 15:34; Status DC Cefazolin Sodium 3000 mg/Sodium Chloride 130 ml @ 200 mls/hr NEUROSURGICAL NURSE IV ; Start 11/16/17 at 15:45; Stop 11/19/17 at 15:44; Status DC Ceftazidime 2000 mg/Sodium Chloride 100 ml @ 200 mls/hr Q8H IV Last administered on 11/26/17at 09:21; Start 11/25/17 at 18:00; Stop 11/26/17 at 09:50 ; Status DC Ceftolozane/ Tazobactam 1500 mg/Sodium Chloride 100 ml @ 100 mls/hr Q8H IV Last administered on 12/02/17at 18:25; Start 11/26/17 at 11:00; Stop 12/03/17 at 10:16; Status DC Ceftolozane/ Tazobactam 375 mg/ Sodium Chloride 100 ml @ 100 mls/hr Q8H IV Last administered on 11/19/17at 13:14; Start 11/15/17 at 17:30; Stop 11/19/17 at 14: 37; Status DC Chlorhexidine Gluconate (Chlorhexidine 2% Cloth) 3 pack UNSCH PRN TOP HYGIENIC CARE; Start 11/15/17 at 14:00 Chlorhexidine Gluconate (Peridex 0.12% Liq) 15 ml BID@08,20 MT Last administered on 12/01/17at 08:00; Start 11/16/17 at 20:00 Chlorothiazide (Diuril) 250 mg DAILY PO Last administered on 12/09/17at 08:06; Start 12/06/17 at 09:00 Chlorothiazide Sodium (Diuril Inj) 250 mg BID IV Last administered on at 10:49; Start 12/04/17 at 21:00; Stop 12/05/17 at 12:18; Status DC Clindamycin/ Sodium Chloride 50 ml @ 100 mls/hr Q6H IV Last administered on 11/16/17at 05:05; Start 11/15/17 at 18:00; Stop 11/16/17 at 06:38; Status DC Dexmedetomidine HCl 1000 mcg/ Sodium Chloride 250 ml @ 9.07 mls/hr TITRATE PRN IV SEDATION Last administered on 11/19/17at 23:52; Start 11/19/17 at 08:15; Stop 11/22/17 at 09:38; Status DC Dexmedetomidine HCl 200 mcg/ Sodium Chloride 52 ml @ 9.43 mls/hr TITRATE PRN IV SEDATION; Start 11/18/17 at 10:30; Stop 11/18/17 at 11:03; Status DC Dextrose 1,000 ml @ 30 mls/hr Q24H IV Last administered on 12/08/17at 11:40; Start 12/04/17 at 13:00; Stop 12/08/17 at 15:37; Status DC Dextrose (D50w (Vial) Inj) 25 ml UNSCH PRN IV PUSH HYPOGLYCEMIA-SEE COMMENTS; Start 11/15/17 at 14:00 Diatrizoate Meglum/ Diatrizoate Sod ( Gastroview Liq) 18 ml ONCE ONCE PO Last administered on 11/26/17at 11:34; Start 11/26/17 at 09:59; Stop 11/26/17 at 11:19; Status DC Digoxin (Lanoxin Inj) 0.25 mg STAT ONCE IV PUSH Last administered on 11/15/17at 17:54; Start 11/15/17 at 16:15; Stop 11/15/17 at 17:27; Status DC Diltiazem HCl (Cardizem Inj) 10 mg BOLUS ONCE IV PUSH ; Start 11/15/17 at 12:30 ; Stop 11/15/17 at 12:31; Status DC Diltiazem HCl (Cardizem) 60 mg Q6HR PO Last administered on 12/09/17at 04:29; Start 11/29/17 at 06:15 Diltiazem HCl 125 mg/Sodium Chloride 125 ml @ 5 mls/hr TITRATE PRN IV tachycardia Last administered on 11/17/17at 10:26; Start 11/15/17 at 12:30; Stop at 10:21; Status DC Dopamine HCl/ Dextrose 500 ml @ 0 mls/hr TITRATE PRN IV Blood Pressure Management; Start 11/15/17 at 12:45; Stop 11/18/17 at 10:21; Status DC Epinephrine HCl 2 mg/Dextrose 252 ml @ 22.68 mls/ hr TITRATE PRN IV Blood Pressure Management Last administered on 11/15/17at 19:34; Start 11/15/17 at 15:45 ; Stop 11/15/17 at 22:43; Status DC Epinephrine HCl 8 mg/Dextrose 250 ml @ 5.62 mls/hr TITRATE PRN IV Blood Pressure Management Last administered on 11/15/17at 23:15; Start 11/15/17 at 22:45 ; Stop 11/18/17 at 10:21; Status DC Famotidine (Pepcid Inj) 10 mg Q12HR IV PUSH Last administered on 12/09/17at 08: 06; Start 11/15/17 at 21:00 Fentanyl Citrate 250 ml @ 5 mls/hr TITRATE PRN IV SEDATION; Start 11/16/17 at 16 :00; Stop 11/18/17 at 10:21; Status DC Fluconazole (Diflucan) 100 mg DAILY PO Last administered on 12/02/17at 08:40; Start 11/26/17 at 20:00; Stop 12/03/17 at 10:16; Status DC Furosemide (Lasix Inj) 40 mg DAILY IV PUSH Last administered on 12/05/17at 10:49 ; Start 12/05/17 at 09:00; Stop 12/05/17 at 12:18; Status DC Furosemide (Lasix) 40 mg DAILY PO Last administered on 12/09/17at 08:01; Start 12/06/17 at 09:00 Furosemide 100 mg/ Sodium Chloride 100 ml @ 10 mls/hr CONTINUOUS IV Last administered on 11/27/17at 08:49; Start 11/21/17 at 11:00; Stop 11/27/17 at 09:13 ; Status DC Heparin Sodium (Porcine) (Heparin Inj) 5,000 units Q8H SQ Last administered on 12/02/17at 05:19; Start 11/15/17 at 15:00; Status Future Hold Hydrocortisone Sodium Succinate (SoluCORTEF INJ) 25 mg DAILY IV PUSH Last administered on 11/28/17at 08:54; Start 11/26/17 at 09:00; Stop 11/29/17 at 08:59 ; Status DC Insulin Human Regular (NovoLIN R SUPPLEMENTAL SCALE) 1 Q6HR SQ Last administered on 11/20/17at 17:43; Start 11/15/17 at 18:00; Stop 11/28/17 at 22:56; Status DC Lactulose (Lactulose Liq) 30 ml DAILY PRN PO SEVERE CONSITIPATION; Start at 14:00 Levofloxacin/ Dextrose 150 ml @ 100 mls/hr Q48H IV ; Start 11/17/17 at 14:00; Stop 11/17/17 at 14:00; Status DC Linezolid 300 ml @ 300 mls/hr Q12H IV Last administered on 12/03/17at 07:00; Start 11/16/17 at 07:00; Stop 12/03/17 at 10:16; Status DC Magnesium Hydroxide (Milk Of Magnesia Liq) 30 ml Q12H PRN PO Mild constipation ; Start 11/15/17 at 14:00 Magnesium Sulfate/ Dextrose 100 ml @ 100 mls/hr ONCE ONCE IV Last administered on 11/26/17at 09:20; Start 11/26/17 at 07:15; Stop 11/26/17 at 08:14 ; Status DC Metolazone (Zaroxolyn) 5 mg ONCE ONCE PO Last administered on 11/23/17at 09:57; Start 11/23/17 at 09:30; Stop 11/23/17 at 09:31; Status DC Metoprolol Tartrate (Lopressor Inj) 5 mg ONCE ONCE IV PUSH Last administered on 11/28/17at 23:39; Start 11/28/17 at 23:00; Stop 11/28/17 at 23:01; Status DC Metoprolol Tartrate (Lopressor) 12.5 mg Q12HR PO Last administered on at 08:06; Start 11/30/17 at 15:00 Metronidazole 100 ml @ 100 mls/hr Q8H IV ; Start 11/23/17 at 08:15; Stop at 08:25; Status DC Midazolam HCl (Versed Inj) 5 mg ONCE ONCE IV PUSH ; Start 11/16/17 at 16:00; Stop 11/16/17 at 16:01; Status DC Miscellaneous Information 1 [id number] Last administered on 11/15/17at 19:00; Start 11/15/17 at 14:00 Non-Formulary Medication VANCOMYCIN STOCK SOLUT... QID PO Last administered on 11/23/17at 20:13; Start 11/23/17 at 09:00; Stop 11/24/17 at 08:04; Status DC Norepinephrine Bitartrate 250 ml @ 7.5 mls/hr TITRATE PRN IV Blood pressure management Last administered on 11/15/17at 21:26; Start 11/15/17 at 12:15; Stop 11/15/17 at 22:41; Status DC Norepinephrine Bitartrate 16 mg/ Dextrose 250 ml @ 1.87 mls/hr TITRATE PRN IV Blood pressure management Last administered on 11/20/17at 06:15; Start 11/15/17 at 22:45; Stop 11/21/17 at 07:28; Status DC Nystatin (Mycostatin Cream) 1 applic Q6HR TOPICAL Last administered on at 04:30; Start 11/26/17 at 12:00 Ondansetron HCl (Zofran Inj) 4 mg Q6H PRN IV PUSH NAUSEA OR VOMITING Last administered on 11/27/17at 17:52; Start 11/15/17 at 14:00 Oseltamivir Phosphate (Tamiflu Liq) 75 mg Q12H PO Last administered on at 17:45; Start 11/15/17 at 18:00; Stop 11/16/17 at 10:12; Status DC Pharmacy Profile Note 0 ml @ 0 mls/hr UNSCH OTHER ; Start 11/15/17 at 14:00; Stop 11/15/17 at 17:23; Status DC Potassium Chloride 40 meq/ Sodium Chloride 520 ml @ 130 mls/hr ONCE ONCE IV- CENTRAL ; Start 11/23/17 at 09:00; Stop 11/23/17 at 09:21; Status DC Potassium Bicarb/ Potassium Chloride (K-Lyte Cl Eff) 50 meq ONCE ONCE PO Last administered on 11/29/17at 09:15; Start 11/29/17 at 07:30; Stop 11/29/17 at 07:43; Status DC Potassium Chloride (KCl) 20 meq ONCE ONCE PO Last administered on 11/28/17at 11 :49; Start 11/28/17 at 10:00; Stop 11/28/17 at 10:01; Status DC Propofol 100 ml @ 0 mls/hr TITRATE PRN IV SEDATION; Start 11/15/17 at 11:45; Stop 11/18/17 at 10:21; Status DC Senna/Docusate Sodium (Zelda-Colace) 1 tab BID PO Last administered on at 08:06; Start 11/15/17 at 21:00 Sennosides (Senokot) 17.2 mg Q12H PRN PO Moderate constipation; Start 11/15/17 at 14:00 Sodium Chloride 500 ml @ 500 mls/hr BOLUS ONCE IV Last administered on at 09:15; Start 11/27/17 at 09:15; Stop 11/27/17 at 11:05; Status DC Succinylcholine Chloride (Quelicin Inj) 100 mg ONCE ONCE IV PUSH ; Start at 16:00; Stop 11/16/17 at 16:01; Status DC Terbutaline Sulfate (Brethine Inj) 1 mg UNSCH PRN SQ For Extravasation; Start 11/15/17 at 12:45 Vancomycin HCl (VANCOMYCIN for oral use only) 125 mg QID PO ; Start 11/23/17 at 09:00; Stop 11/23/17 at 09:00; Status DC Vancomycin HCl (Vancomycin 25 Mg/ml Liq) 125 mg QID PO Last administered on at 08:01; Start 11/24/17 at 09:00; Stop 12/14/17 at 08:59 Vancomycin HCl 500 mg/Sodium Chloride 100 ml @ 200 mls/hr ONCE ONCE IV ; Start 11/15/17 at 15:00; Stop 11/15/17 at 15:29; Status DC Vancomycin HCl 1000 mg/Sodium Chloride 250 ml @ 250 mls/hr ONCE ONCE IV Last administered on 11/15/17at 12:45; Start 11/15/17 at 12:15; Stop 11/15/17 at 13:14; Status DC Vasopressin 40 units/Dextrose 100 ml @ 6 mls/hr [id number] IV Last administered on 11/20/17at 10:28; Start 11/15/17 at 14:12; Stop 11/21/17 at 07:28; Status DC A/P Assessment and Plan Metabolic Encephalopathy - improved Chronic Pain - Awake and alert - Lortab 5/325 mg PRN Acute hypoxic and hypercarbic respiratory failure- Extubated 11/22 Healthcare Associated Pneumonia treated with antibiotics. Continue with oxygen keep sat >92% Bronchodilators, IS, - sputum culture: MRSA CT chest 11/26: Improvement in bilateral lung consolidation since November 15. small bilateral effusions, right greater than left. s/p Septic Shock - Atrial fibrillation with rapid ventricular response - continue metoprolol and cardizem. echo with EF 55%. Acute Kidney Injury - resolving. Acute pyelonephritis Metabolic alkalosis secondary to intravascular volume contraction hypokalemia/hypomagnesemia Monitor renal function, I/O's, avoid nephrotoxins On IV Lasix and Diuril - s/p Emergent cysto with stent- f/u with Urology as outpatient. Renal is following- Dr. Lopez. -electrolyte supplementation as needed. -will dc garcia when more mobile. Super Morbid Obesity Lactic Acidosis- cleared Anion-gap Metabolic acidosis- resolved. Acute intravascular volume overload Severe acute protein calorie malnutrition -Pured diet, poor oral intake -Pepcid for GI prophylaxis -CT abdomen/pelvis: No abscess or free air History of prior MRSA pneumonia Acute pyelonephritis Pseudomonas bacteremia Positive C-diff - evaluated by ID. - Abx per Dr. Cartagena. Zyvox, Zerbaxa discontinued on 12/03 per ID, Continue PO Vanco. -11/25 urine cx : C. Albicans -6 BC :NGTD -11/17 BC: Coag negative staph 10/18 bottles..likely contaminant - 11/17 Urine cx :Pseudomonas - 2/1 blood cultures: pseudomonas - 2/1 urine culture: pseudomonas - 2/1 sputum culture: MRSA thrombocytopenia- with slight improvement. anemia- improved. heparin on hold- HIT ab negative- continue to monitor- stool for blood pending. hematology following. continue PT. Prophylaxis: SCDs, SQH held for thrombocytopenia. Pepcid Discharge Planning possible discharge early this week if stable. Vianey Dupree MD Dec 09, 2017 09:26
[2017-12-09] MEDS ORDERED: MAGNESIUM SULFATE 1 GM PREMIX 100 ML IV ONE (09:30)
[2017-12-09] MEDS ORDERED: POTASSIUM CHLORIDE 10 MEQ CONTROLLED RELEASE TAB PO ONE ×2 (09:30→13:00)
[2017-12-09 10:09] LABS: BANDS 2 % (0-6); LYMPHOCYTES 21 % (9-44); MONOCYTES 5 % (0-8); NEUTROPHIL # MANUAL DIFF 4.7 TH/MM3 (1.8-7.7); POLYS (SEG NEUTROPHILS) 60 % (16-70)
--- NOTE | 2017-12-09 15:53 | HHI.NPPN ---
Subjective General Problems: Edema Renal Failure: Acute Additional Remarks no acute complaints Review of Systems General General Remarks difficult to ascertain. Cardiovascular Cardiac: Edema Objective Data Data Vital Signs Date Time Temp Pulse Resp B/P (MAP) Pulse Ox O2 Delivery O2 Flow Rate FiO2 12/09/17 12:00 97.6 84 17 110/59 (76) 99 12/09/17 08:00 96.9 90 16 99/53 (68) 93 12/09/17 04:00 96.8 103 20 103/52 (69) 93 12/09/17 00:04 96.5 90 20 108/54 (72) 94 12/09/17 00:00 86 12/08/17 20:20 82 12/08/17 20:00 98.3 95 20 123/65 (84) 96 12/08/17 16:00 97.5 93 15 104/61 (75) 95 -: 12/09/17 0650 12/09/17 0650 Tubes & Lines: Solitario Physical Exam General Appearance: Well Nourished, No Acute Distress, Comfortable, Obese Eyes Eye Exam: Pupils Equal Throat Throat Exam: Oral Mucosa [place] & Moist Neck Neck Exam: Neck Supple Pulmonary Resp Exam: Breath Sounds Equal, No Distress, Crackles Cardiology CV Exam: Regular, Good Perfusion, Tachycardia Gastrointestinal/Abdomen GI Exam: Soft, Non-Tender, Bowel Sounds Present, Positive Bowel Movement Musculoskeletal MS Exam: Joints Intact, Normal Tone, Unable to Ambulate Integumentary Skin Exam: Warm, Dry Extremeties Extremities Exam: Moderate Edema, Pitting Edema, Dependent Edema Neurologic Neuro Exam: Alert, Awake, Oriented, Speech Clear Psychiatric Psych Exam: Appropriate Responses Assessment/Plan Discussed Condition With: Patient Assessment Summary: FREDDY/Acute Renal Failure, Fluid/Volume Overload, Hypotension Electrolyte Assessment: Hypokalemia Problem List: (1) FREDDY (acute kidney injury) ICD Codes: N17.9 - Acute kidney failure, unspecified Plan: In January 2017 her renal function was normal. Had FREDDY in September, creatinine at discharge was 1.8 Obstructive uropathy, s/p R ureteral stent placement on the 16 of November. FREDDY also due to urosepsis with renal hyperperfusion Renal function had been improving. Creatinine improved from 1.55 to 1.38 today. Continue Lasix 40 daily and Diuril 250 daily. K+ replaced today Free water intake encouraged. Na 140 now. Would prefer to remove Solitario but reportedly has skin breakdown and due to size, mobility is difficult. Treated for [place]uly UTI. (2) Tachycardia ICD Codes: R00.0 - Tachycardia, unspecified Plan: Improved. A fib, On Cardizem. Also PO Lopressor, 12.5 BID. (3) Pneumonia ICD Codes: J18.9 - Pneumonia, unspecified organism Status: Acute Plan: ID following, off antibiotics. (4) Septic shock ICD Codes: A41.9 - Sepsis, unspecified organism; R65.21 - Severe sepsis with septic shock Plan: Pseudomonas sepsis Off all antibiotic therapy TLC has been removed. Continue supportive care (5) Respiratory failure ICD Codes: J96.90 - Respiratory failure, unspecified, unspecified whether with hypoxia or hypercapnia Plan: Successfully extubated Monitor respiratory status Jorge Archer MD Dec 09, 2017 15:53
[2017-12-10] VITALS: BP 134/65; PULSE 85; PULSE 97; RESP 18; TEMP 98.5; O2SAT 100
[2017-12-10] MEDS: NYSTATIN 100,000 UNIT/GM CREAM 15 GM TOPICAL SCH ×4 (00:08→17:52)
[2017-12-10] MEDS: DILTIAZEM HCL 60 MG TAB PO SCH ×4 (00:08→17:52)
[2017-12-10] MEDS: CHLORHEXIDINE GLUCONATE 2 % 1 PACK (2 CLOTHS) TOP SCH (03:07)
[2017-12-10 04:00] VITALS: BP 104/50; PULSE 91; RESP 18; TEMP 97.2; O2SAT 100
[2017-12-10 08:00] VITALS: BP 115/53; PULSE 97; RESP 20; TEMP 97.7; O2SAT 96
[2017-12-10] MEDS: CHLORHEXIDINE 0.12% (ORAL KIT) 15 ML CUP MT SCH (08:00)
[2017-12-10] MEDS: DOCUSATE SODIUM 50 MG/SENNA 8.6 MG TAB PO SCH (09:58)
[2017-12-10] MEDS: FAMOTIDINE 20 MG/2 ML VIAL IV PUSH SCH (09:58)
[2017-12-10] MEDS: METOPROLOL TARTRATE 25 MG TAB PO SCH (09:59)
[2017-12-10] MEDS: VANCOMYCIN 25 MG/ML SUSP 100 ML BOTTLE PO SCH ×3 (10:00→17:52)
[2017-12-10] MEDS: FUROSEMIDE 40 MG TAB PO SCH (10:00)
--- NOTE | 2017-12-10 10:32 | HHI.NPPN ---
Subjective General Problems: Edema Renal Failure: Acute Interval History She is more alert today. Edema much improved. Possible discharge, pending today' s lab results. Additional Remarks (Suad Lucas) Review of Systems Cardiovascular Cardiac: Edema (Suad Lucas) Objective Data Data Vital Signs Date Time Temp Pulse Resp B/P (MAP) Pulse Ox O2 Delivery O2 Flow Rate FiO2 12/10/17 08:00 97.7 97 20 115/53 (73) 96 12/10/17 04:00 97.2 91 18 104/50 (68) 100 12/10/17 00:00 97 12/10/17 00:00 98.5 85 18 134/65 (88) 100 12/09/17 20:02 88 12/09/17 20:00 97.9 86 18 104/50 (68) 100 12/09/17 16:00 96.4 93 16 106/64 (78) 100 12/09/17 12:00 97.6 84 17 110/59 (76) 99 (Suad Lucas) -: 12/09/17 0650 12/09/17 0650 Tubes & Lines: Solitario (Suad Lucas) Physical Exam General Appearance: Well Nourished, No Acute Distress, Comfortable, Obese (Suad Lucas) Eyes Eye Exam: Pupils Equal (Suad Lucas) Throat Throat Exam: Oral Mucosa [place] & Moist (Suad Lucas) Neck Neck Exam: Neck Supple (Suad Lucas) Pulmonary Resp Exam: Breath Sounds Equal, No Distress, Crackles (Suad Lucas) Cardiology CV Exam: Regular, Good Perfusion (Suad Lucas) Gastrointestinal/Abdomen GI Exam: Soft, Non-Tender, Bowel Sounds Present, Positive Bowel Movement GI Remarks morbidly obese (Suad Lucas) Musculoskeletal MS Exam: Joints Intact, Normal Tone, Unable to Ambulate (Suad Lucas) Integumentary Skin Exam: Clear, Warm, Dry (Suad Lucas) Extremeties Extremities Exam: Moderate Edema, Pitting Edema, Dependent Edema Extremeties Remarks improving edema. (Suad Lucas) Neurologic Neuro Exam: Alert, Awake, Oriented, Speech Clear (Suad Lucas) Psychiatric Psych Exam: Appropriate Responses (Suad Lucas) Assessment/Plan Discussed Condition With: Patient Assessment Summary: FREDDY/Acute Renal Failure, Fluid/Volume Overload, Hypotension Electrolyte Assessment: Hypokalemia Problem List: (1) FREDDY (acute kidney injury) ICD Codes: N17.9 - Acute kidney failure, unspecified Plan: In January 2017 her renal function was normal. Had FREDDY in September, creatinine at discharge was 1.8 Obstructive uropathy, s/p R ureteral stent placement on the 16 of November. FREDDY also due to urosepsis with renal hyperperfusion Renal function is improving. Stop Diuril. Continue Lasix 40 mg PO daily at discharge. Free water intake encouraged. Would prefer to remove Solitario but reportedly has skin breakdown and due to size, mobility is difficult. Defer to medical team. (2) Tachycardia ICD Codes: R00.0 - Tachycardia, unspecified Plan: Improved. A fib, On Cardizem. Also PO Lopressor BID (3) Pneumonia ICD Codes: J18.9 - Pneumonia, unspecified organism Status: Acute Plan: ID following, off antibiotics. (4) Septic shock ICD Codes: A41.9 - Sepsis, unspecified organism; R65.21 - Severe sepsis with septic shock Plan: Pseudomonas sepsis Off all antibiotic therapy TLC has been removed. Continue supportive care (5) Respiratory failure ICD Codes: J96.90 - Respiratory failure, unspecified, unspecified whether with hypoxia or hypercapnia Plan: Successfully extubated Monitor respiratory status Plan We will sign off at this time. Stable for discharge. (Suad Lucas) Plan patient was seen and examined. Renal function has improved. We will sign off at this time. Agree with above assessment and plan. (Mohinder Lopez MD) Suad Lucas Dec 10, 2017 10:32 Mohinder Lopez MD Dec 10, 2017 12:40
[2017-12-10 11:10] VITALS: O2SAT 96
[2017-12-10 11:10] LABS: AUTOMATED NEUTROPHIL # 3.5 TH/MM3 (1.8-7.7); BASOPHIL % 0.5 % (0.0-2.0); EOSINOPHIL # 0.6 TH/MM3 (0-0.4); EOSINOPHIL % 9.7 % (0.0-4.0); HEMATOCRIT 28.3 % (35.0-46.0); HEMOGLOBIN 9.5 GM/DL (11.6-15.3); LYMPHOCYTE # 0.9 TH/MM3 (1.0-4.8); MEAN CELL VOLUME 87.6 FL (80.0-100.0); MEAN CORPUSCULAR HEMOGLOBIN 29.4 PG (27.0-34.0); MEAN CORPUSCULAR HGB CONC 33.5 % (32.0-36.0); MEAN PLATELET VOLUME 8.2 FL (7.0-11.0); MONO % 14.1 % (0.0-8.0); MONOCYTE # 0.8 TH/MM3 (0-0.9); NEUT % 59.7 % (16.0-70.0); PLATELET COUNT 131 TH/MM3 (150-450); RED BLOOD COUNT 3.24 MIL/MM3 (4.00-5.30); RED CELL DISTRIBUTION WIDTH 17.7 % (11.6-17.2); WHITE BLOOD COUNT 5.8 TH/MM3 (4.0-11.0)
[2017-12-10 11:28] LABS: POLYCHROMASIA 2.2 % (0.0-1.9)
[2017-12-10 11:29] LABS: BICARBONATE 33.6 MEQ/L (21.0-32.0); CALCIUM 9.4 MG/DL (8.5-10.1); CREATININE 1.19 MG/DL (0.50-1.00); MAGNESIUM 1.1 MG/DL (1.5-2.5)
[2017-12-10 12:00] VITALS: BP 119/50; PULSE 102; RESP 18; TEMP 97.8; O2SAT 95
--- NOTE | 2017-12-10 12:15 | HHI.PR ---
Subjective Remarks in no acute distress. denies pain. no new complaints. Objective Vitals Vital Signs Date Time Temp Pulse Resp B/P (MAP) Pulse Ox O2 Delivery O2 Flow Rate FiO2 12/10/17 11:10 96 Nasal Cannula 2.00 12/10/17 08:00 97.7 97 20 115/53 (73) 96 12/10/17 04:00 97.2 91 18 104/50 (68) 100 12/10/17 00:00 97 12/10/17 00:00 98.5 85 18 134/65 (88) 100 12/09/17 20:02 88 12/09/17 20:00 97.9 86 18 104/50 (68) 100 12/09/17 16:00 96.4 93 16 106/64 (78) 100 I/O 12/09/17 12/09/17 12/09/17 12/10/17 12/10/17 12/10/17 07:00 15:00 23:00 07:00 15:00 23:00 Intake Total 240 ml 100 ml 360 ml 360 ml Output Total 875 ml 600 ml 1500 ml Balance -635 ml 100 ml -240 ml -1140 ml Intake Oral 240 ml 360 ml 360 ml IV Total 100 ml Output Urine Total 875 ml 600 ml 1500 ml # Bowel Movements 1 1 3 Result Diagram: 12/10/17 1055 12/10/17 1055 Imaging Last Impressions Upper Extremity Ultrasound 12/07/17 0000 Signed Impressions: Service Date/Time: Thursday, December 07, 2017 08:56 - CONCLUSION: 1. Negative for deep venous thrombosis. Dorian Vasquez MD Lower Extremity Ultrasound 12/07/17 0000 Signed Impressions: Service Date/Time: Thursday, December 07, 2017 13:59 - CONCLUSION: Normal examination. Perry Bowden MD Head CT 12/06/17 0000 Signed Impressions: Service Date/Time: November 21:57 - CONCLUSION: 1. Senescent changes with mild small vessel ischemic periventricular white matter demyelination. 2. Minimal bilateral maxillary sinus because of disease. 3. No acute intracranial normality. Riccardo Stack MD Chest X-Ray 12/03/17 0000 Signed Impressions: Service Date/Time: Sunday, December 03, 2017 08:10 - CONCLUSION: Persistent, but improved, left lower lobe consolidation. Dorian Vasquez MD Chest CT 11/26/17 0000 Signed Impressions: Service Date/Time: Sunday, November 26, 2017 17:16 - CONCLUSION: 1. Improvement in bilateral lung consolidation since November 15. Interval development of small bilateral effusions, right greater than left. Sachin Gonzalez MD Abdomen/Pelvis CT 11/26/17 0000 Signed Impressions: Service Date/Time: Sunday, November 26, 2017 17:16 - CONCLUSION: Very limited exam because of arms and body habitus. I don't see abscess or free air. Double-J stent on the right. Joseph Baeza MD FACR Abdomen X-Ray 11/17/17 0000 Signed Impressions: Service Date/Time: Friday, November 17, 2017 19:04 - CONCLUSION: The proximal tip of the double-J stent is either in the expected region of the right renal pelvis or proximal ureter. Allen Mensah MD Objective Remarks GENERAL: morbidly obese, in no apparent distress. CARDIOVASCULAR: Regular rate and regular rhythm without murmurs, gallops, or rubs. RESPIRATORY: Clear to auscultation. Breath sounds equal bilaterally. No wheezes , rales, or rhonchi. GASTROINTESTINAL: Abdomen soft, non-tender, nondistended. Normal, active bowel sounds MUSCULOSKELETAL: Extremities without clubbing, cyanosis, or edema. NEURO: Alert & Oriented x4 to person, place, time, situation. Moves all ext x4 Procedures endotracheal intubation/ cystoscopy and stent placement. Medications and IVs Inpatient Medications Acetaminophen (Tylenol Supp) 650 mg ONCE ONCE RECTAL Last administered on at 12:39; Start 11/15/17 at 12:30; Stop 11/15/17 at 12:31; Status DC Acetaminophen (Tylenol) 650 mg Q6H PRN PO PAIN 1-6 AND/OR FEVER >101F Last administered on 11/27/17at 16:05; Start 11/15/17 at 14:00 Acetaminophen/ Hydrocodone Bitart (Mcdowell 5-325 Mg) 1 tab Q4H PRN PO PAIN SCALE 7 TO 10 Last administered on 12/07/17at 09:05; Start 11/24/17 at 18:15 Acetazolamide Sodium (Diamox Inj) 500 mg Q24H IV Last administered on at 08:25; Start 11/30/17 at 09:00; Stop 12/01/17 at 07:34; Status DC Albumin Human 100 ml @ 60 mls/hr ONCE ONCE IV Last administered on 11/28/17at 23:38; Start 11/28/17 at 23:00; Stop 11/29/17 at 00:39; Status DC Albuterol/ Ipratropium (Duoneb Neb) 1 ampule Q4HR NEB NEB Last administered on 11/26/17at 11:16; Start 11/22/17 at 12:00; Stop 11/26/17 at 11:59; Status DC Amiodarone HCl 150 mg/Dextrose 103 ml @ 600 mls/hr Q11M ONCE IV Last administered on 11/15/17at 13:24; Start 11/15/17 at 13:03; Stop 11/15/17 at 13:13; Status DC Amiodarone HCl 200 mg/Dextrose 101 ml @ 202 mls/hr Q12H IV Last administered on 11/19/17at 12:00; Start 11/18/17 at 12:00; Stop 11/19/17 at 17:52; Status DC Amiodarone HCl 450 mg/Dextrose 250 ml @ 33.33 mls/ hr Q7H31M PRN IV Per Protocol Last administered on 11/15/17at 13:51; Start 11/15/17 at 13:13; Stop at 20:08; Status DC Amiodarone HCl 450 mg/Sodium Chloride 250 ml @ 33.33 mls/ hr Q7H31M PRN IV Per Protocol Last administered on 11/18/17at 05:03; Start 11/15/17 at 20:15; Stop at 10:21; Status DC Azithromycin 500 mg/Sodium Chloride 250 ml @ 250 mls/hr Q24H IV Last administered on 11/17/17at 08:10; Start 11/16/17 at 08:00; Stop 11/17/17 at 09:45; Status DC Aztreonam 1000 mg/ Sodium Chloride 100 ml @ 200 mls/hr Q8H IV ; Start 11/15/17 at 22:00; Stop 11/15/17 at 22:00; Status DC Bisacodyl (Dulcolax Supp) 10 mg DAILY PRN RECTAL SEVERE CONSITIPATION; Start at 14:00 Cefazolin Sodium (Ancef Inj) 3,000 mg ONCE ONCE IV ; Start 11/16/17 at 14:45; Stop 11/16/17 at 15:34; Status DC Cefazolin Sodium 3000 mg/Sodium Chloride 130 ml @ 200 mls/hr DOG TRAINER IV ; Start 11/16/17 at 15:45; Stop 11/19/17 at 15:44; Status DC Ceftazidime 2000 mg/Sodium Chloride 100 ml @ 200 mls/hr Q8H IV Last administered on 11/26/17at 09:21; Start 11/25/17 at 18:00; Stop 11/26/17 at 09:50 ; Status DC Ceftolozane/ Tazobactam 1500 mg/Sodium Chloride 100 ml @ 100 mls/hr Q8H IV Last administered on 12/02/17at 18:25; Start 11/26/17 at 11:00; Stop 12/03/17 at 10:16; Status DC Ceftolozane/ Tazobactam 375 mg/ Sodium Chloride 100 ml @ 100 mls/hr Q8H IV Last administered on 11/19/17at 13:14; Start 11/15/17 at 17:30; Stop 11/19/17 at 14: 37; Status DC Chlorhexidine Gluconate (Chlorhexidine 2% Cloth) 3 pack UNSCH PRN TOP HYGIENIC CARE; Start 11/15/17 at 14:00 Chlorhexidine Gluconate (Peridex 0.12% Liq) 15 ml BID@08,20 MT Last administered on 12/01/17at 08:00; Start 11/16/17 at 20:00 Chlorothiazide (Diuril) 250 mg DAILY PO Last administered on 12/09/17at 08:06; Start 12/06/17 at 09:00; Stop 12/10/17 at 09:12; Status DC Chlorothiazide Sodium (Diuril Inj) 250 mg BID IV Last administered on at 10:49; Start 12/04/17 at 21:00; Stop 12/05/17 at 12:18; Status DC Clindamycin/ Sodium Chloride 50 ml @ 100 mls/hr Q6H IV Last administered on 11/16/17at 05:05; Start 11/15/17 at 18:00; Stop 11/16/17 at 06:38; Status DC Dexmedetomidine HCl 1000 mcg/ Sodium Chloride 250 ml @ 9.07 mls/hr TITRATE PRN IV SEDATION Last administered on 11/19/17at 23:52; Start 11/19/17 at 08:15; Stop 11/22/17 at 09:38; Status DC Dexmedetomidine HCl 200 mcg/ Sodium Chloride 52 ml @ 9.43 mls/hr TITRATE PRN IV SEDATION; Start 11/18/17 at 10:30; Stop 11/18/17 at 11:03; Status DC Dextrose 1,000 ml @ 30 mls/hr Q24H IV Last administered on 12/08/17at 11:40; Start 12/04/17 at 13:00; Stop 12/08/17 at 15:37; Status DC Dextrose (D50w (Vial) Inj) 25 ml UNSCH PRN IV PUSH HYPOGLYCEMIA-SEE COMMENTS; Start 11/15/17 at 14:00 Diatrizoate Meglum/ Diatrizoate Sod ( Gastroview Liq) 18 ml ONCE ONCE PO Last administered on 11/26/17at 11:34; Start 11/26/17 at 09:59; Stop 11/26/17 at 11:19; Status DC Digoxin (Lanoxin Inj) 0.25 mg STAT ONCE IV PUSH Last administered on 11/15/17at 17:54; Start 11/15/17 at 16:15; Stop 11/15/17 at 17:27; Status DC Diltiazem HCl (Cardizem Inj) 10 mg BOLUS ONCE IV PUSH ; Start 11/15/17 at 12:30 ; Stop 11/15/17 at 12:31; Status DC Diltiazem HCl (Cardizem) 60 mg Q6HR PO Last administered on 12/10/17at 06:38; Start 11/29/17 at 06:15 Diltiazem HCl 125 mg/Sodium Chloride 125 ml @ 5 mls/hr TITRATE PRN IV tachycardia Last administered on 11/17/17at 10:26; Start 11/15/17 at 12:30; Stop at 10:21; Status DC Dopamine HCl/ Dextrose 500 ml @ 0 mls/hr TITRATE PRN IV Blood Pressure Management; Start 11/15/17 at 12:45; Stop 11/18/17 at 10:21; Status DC Epinephrine HCl 2 mg/Dextrose 252 ml @ 22.68 mls/ hr TITRATE PRN IV Blood Pressure Management Last administered on 11/15/17at 19:34; Start 11/15/17 at 15:45 ; Stop 11/15/17 at 22:43; Status DC Epinephrine HCl 8 mg/Dextrose 250 ml @ 5.62 mls/hr TITRATE PRN IV Blood Pressure Management Last administered on 11/15/17at 23:15; Start 11/15/17 at 22:45 ; Stop 11/18/17 at 10:21; Status DC Famotidine (Pepcid Inj) 10 mg Q12HR IV PUSH Last administered on 12/10/17at 09: 58; Start 11/15/17 at 21:00 Fentanyl Citrate 250 ml @ 5 mls/hr TITRATE PRN IV SEDATION; Start 11/16/17 at 16 :00; Stop 11/18/17 at 10:21; Status DC Fluconazole (Diflucan) 100 mg DAILY PO Last administered on 12/02/17at 08:40; Start 11/26/17 at 20:00; Stop 12/03/17 at 10:16; Status DC Furosemide (Lasix Inj) 40 mg DAILY IV PUSH Last administered on 12/05/17at 10:49 ; Start 12/05/17 at 09:00; Stop 12/05/17 at 12:18; Status DC Furosemide (Lasix) 40 mg DAILY PO Last administered on 12/10/17at 10:00; Start 12/06/17 at 09:00 Furosemide 100 mg/ Sodium Chloride 100 ml @ 10 mls/hr CONTINUOUS IV Last administered on 11/27/17at 08:49; Start 11/21/17 at 11:00; Stop 11/27/17 at 09:13 ; Status DC Heparin Sodium (Porcine) (Heparin Inj) 5,000 units Q8H SQ Last administered on 12/02/17at 05:19; Start 11/15/17 at 15:00; Status Future Hold Hydrocortisone Sodium Succinate (SoluCORTEF INJ) 25 mg DAILY IV PUSH Last administered on 11/28/17at 08:54; Start 11/26/17 at 09:00; Stop 11/29/17 at 08:59 ; Status DC Insulin Human Regular (NovoLIN R SUPPLEMENTAL SCALE) 1 Q6HR SQ Last administered on 11/20/17at 17:43; Start 11/15/17 at 18:00; Stop 11/28/17 at 22:56; Status DC Lactulose (Lactulose Liq) 30 ml DAILY PRN PO SEVERE CONSITIPATION; Start at 14:00 Levofloxacin/ Dextrose 150 ml @ 100 mls/hr Q48H IV ; Start 11/17/17 at 14:00; Stop 11/17/17 at 14:00; Status DC Linezolid 300 ml @ 300 mls/hr Q12H IV Last administered on 12/03/17at 07:00; Start 11/16/17 at 07:00; Stop 12/03/17 at 10:16; Status DC Magnesium Hydroxide (Milk Of Magnesia Liq) 30 ml Q12H PRN PO Mild constipation ; Start 11/15/17 at 14:00 Magnesium Sulfate/ Dextrose 100 ml @ 100 mls/hr ONCE ONCE IV Last administered on 12/09/17at 10:30; Start 12/09/17 at 09:30; Stop 12/09/17 at 10:29 ; Status DC Metolazone (Zaroxolyn) 5 mg ONCE ONCE PO Last administered on 11/23/17at 09:57; Start 11/23/17 at 09:30; Stop 11/23/17 at 09:31; Status DC Metoprolol Tartrate (Lopressor Inj) 5 mg ONCE ONCE IV PUSH Last administered on 11/28/17at 23:39; Start 11/28/17 at 23:00; Stop 11/28/17 at 23:01; Status DC Metoprolol Tartrate (Lopressor) 12.5 mg Q12HR PO Last administered on at 09:59; Start 11/30/17 at 15:00 Metronidazole 100 ml @ 100 mls/hr Q8H IV ; Start 11/23/17 at 08:15; Stop at 08:25; Status DC Midazolam HCl (Versed Inj) 5 mg ONCE ONCE IV PUSH ; Start 11/16/17 at 16:00; Stop 11/16/17 at 16:01; Status DC Miscellaneous Information 1 Q361D XX Last administered on 11/15/17at 19:00; Start 11/15/17 at 14:00 Non-Formulary Medication VANCOMYCIN STOCK SOLUT... QID PO Last administered on 11/23/17at 20:13; Start 11/23/17 at 09:00; Stop 11/24/17 at 08:04; Status DC Norepinephrine Bitartrate 250 ml @ 7.5 mls/hr TITRATE PRN IV Blood pressure management Last administered on 11/15/17at 21:26; Start 11/15/17 at 12:15; Stop 11/15/17 at 22:41; Status DC Norepinephrine Bitartrate 16 mg/ Dextrose 250 ml @ 1.87 mls/hr TITRATE PRN IV Blood pressure management Last administered on 11/20/17at 06:15; Start 11/15/17 at 22:45; Stop 11/21/17 at 07:28; Status DC Nystatin (Mycostatin Cream) 1 applic Q6HR TOPICAL Last administered on at 06:38; Start 11/26/17 at 12:00 Ondansetron HCl (Zofran Inj) 4 mg Q6H PRN IV PUSH NAUSEA OR VOMITING Last administered on 11/27/17at 17:52; Start 11/15/17 at 14:00 Oseltamivir Phosphate (Tamiflu Liq) 75 mg Q12H PO Last administered on at 17:45; Start 11/15/17 at 18:00; Stop 11/16/17 at 10:12; Status DC Pharmacy Profile Note 0 ml @ 0 mls/hr UNSCH OTHER ; Start 11/15/17 at 14:00; Stop 11/15/17 at 17:23; Status DC Potassium Chloride 40 meq/ Sodium Chloride 520 ml @ 130 mls/hr ONCE ONCE IV- CENTRAL ; Start 11/23/17 at 09:00; Stop 11/23/17 at 09:21; Status DC Potassium Bicarb/ Potassium Chloride (K-Lyte Cl Eff) 50 meq ONCE ONCE PO Last administered on 11/29/17at 09:15; Start 11/29/17 at 07:30; Stop 11/29/17 at 07:43; Status DC Potassium Chloride (KCl) 30 meq ONCE ONCE PO Last administered on 12/09/17at 12 :16; Start 12/09/17 at 13:00; Stop 12/09/17 at 13:01; Status DC Propofol 100 ml @ 0 mls/hr TITRATE PRN IV SEDATION; Start 11/15/17 at 11:45; Stop 11/18/17 at 10:21; Status DC Senna/Docusate Sodium (Zelda-Colace) 1 tab BID PO Last administered on at 09:58; Start 11/15/17 at 21:00 Sennosides (Senokot) 17.2 mg Q12H PRN PO Moderate constipation; Start 11/15/17 at 14:00 Sodium Chloride 500 ml @ 500 mls/hr BOLUS ONCE IV Last administered on at 09:15; Start 11/27/17 at 09:15; Stop 11/27/17 at 11:05; Status DC Succinylcholine Chloride (Quelicin Inj) 100 mg ONCE ONCE IV PUSH ; Start at 16:00; Stop 11/16/17 at 16:01; Status DC Terbutaline Sulfate (Brethine Inj) 1 mg UNSCH PRN SQ For Extravasation; Start 11/15/17 at 12:45 Vancomycin HCl (VANCOMYCIN for oral use only) 125 mg QID PO ; Start 11/23/17 at 09:00; Stop 11/23/17 at 09:00; Status DC Vancomycin HCl (Vancomycin 25 Mg/ml Liq) 125 mg QID PO Last administered on at 10:00; Start 11/24/17 at 09:00; Stop 12/14/17 at 08:59 Vancomycin HCl 500 mg/Sodium Chloride 100 ml @ 200 mls/hr ONCE ONCE IV ; Start 11/15/17 at 15:00; Stop 11/15/17 at 15:29; Status DC Vancomycin HCl 1000 mg/Sodium Chloride 250 ml @ 250 mls/hr ONCE ONCE IV Last administered on 11/15/17at 12:45; Start 11/15/17 at 12:15; Stop 11/15/17 at 13:14; Status DC Vasopressin 40 units/Dextrose 100 ml @ 6 mls/hr [id number] IV Last administered on 11/20/17at 10:28; Start 11/15/17 at 14:12; Stop 11/21/17 at 07:28; Status DC A/P Assessment and Plan Metabolic Encephalopathy - improved Chronic Pain - Awake and alert - Lortab 5/325 mg PRN Acute hypoxic and hypercarbic respiratory failure- Extubated 11/22 Healthcare Associated Pneumonia treated with antibiotics. Continue with oxygen keep sat >92% Bronchodilators, IS, - sputum culture: MRSA CT chest 11/26: Improvement in bilateral lung consolidation since November 15. small bilateral effusions, right greater than left. s/p Septic Shock - Atrial fibrillation with rapid ventricular response - continue metoprolol and cardizem. hold Xarelto for now- -per hematology recommendations; f/u with hematology as outpatient. echo with EF 55%. Acute Kidney Injury - resolving. Acute pyelonephritis Metabolic alkalosis secondary to intravascular volume contraction hypokalemia/hypomagnesemia Monitor renal function, I/O's, avoid nephrotoxins - s/p Emergent cysto with stent- f/u with Urology as outpatient. Renal is following- Dr. Lopez. -electrolyte supplementation as needed. -garcia was dc'ed. Super Morbid Obesity Lactic Acidosis- cleared Anion-gap Metabolic acidosis- resolved. Acute intravascular volume overload Severe acute protein calorie malnutrition -Pured diet, poor oral intake -Pepcid for GI prophylaxis -CT abdomen/pelvis: No abscess or free air History of prior MRSA pneumonia Acute pyelonephritis Pseudomonas bacteremia Positive C-diff - evaluated by ID. - Abx per Dr. Cartagena. Zyvox, Zerbaxa discontinued on 12/03 per ID, Continue PO Vanco. -11/25 urine cx : C. Albicans -11/20 BC :NGTD -11/17 BC: Coag negative staph 10/18 bottles..likely contaminant - 11/17 Urine cx :Pseudomonas - 2/1 blood cultures: pseudomonas - 2/1 urine culture: pseudomonas - 2/1 sputum culture: MRSA thrombocytopenia- improved. anemia- improved. had PRBC transfusion. heparin on hold- HIT ab negative- continue to monitor- f/u with hematology as outpatient. continue PT. Prophylaxis: SCDs, SQH held for thrombocytopenia. Pepcid Discharge Planning dc to SNF today. see med list. f/u; pcp,urology,hematology. d/w the patient and case management. time spent 35 min. Vianey Dupree MD Dec 10, 2017 12:15
--- NOTE | 2017-12-10 12:20 | HHI.DS ---
Discharge Summary Admission Date Nov 15, 2017 at 13:06 Discharge Date: Dec 10, 2017 Admitting Diagnosis septic shock. Respiratory failure. UTI. Chronic kidney disease. (1) Thrombocytopenia ICD Code: D69.6 - Thrombocytopenia, unspecified Diagnosis: Principal (2) Hydronephrosis ICD Code: N13.30 - Unspecified hydronephrosis Diagnosis: Principal (3) Pneumonia ICD Code: J18.9 - Pneumonia, unspecified organism Diagnosis: Principal Status: Acute Procedures endotracheal intubation/ cystoscopy and stent placement. Brief History - From Admission 67yF with super morbid obesity who has had multiple prior admissions for MRSA pneumonia and respiratory failure presents by EMS for recurrent respiratory failure. She resides in a SNF. She was found unresponsive this morning. She was intubated in the field. In the emergency department she was hypotensive despite ivf resuscitation and required norepinephrine for vasopressor support. she has a wbc 52k, lactate of 6.9, Cr 2.87 (baseline 0.5, prior admission discharge was 1.8). u/a concerning for probable UTI as well. CBC/BMP: 12/10/17 1055 12/10/17 1055 Significant Findings Laboratory Tests Test 12/07/17 14:08 12/08/17 12:50 12/09/17 06:50 12/10/17 10:55 Vitamin B12 Level 1438 PG/ML (193-986) Red Blood Count 3.16 MIL/MM3 (4.00-5.30) 2.96 MIL/MM3 (4.00-5.30) 3.24 MIL/MM3 (4.00-5.30) Hemoglobin 9.4 GM/DL (11.6-15.3) 8.9 GM/DL (11.6-15.3) 9.5 GM/DL (11.6-15.3) Hematocrit 27.9 % (35.0-46.0) 25.8 % (35.0-46.0) 28.3 % (35.0-46.0) Red Cell Distribution Width 17.5 % (11.6-17.2) 17.5 % (11.6-17.2) 17.7 % (11.6-17.2) Platelet Count 89 TH/MM3 (150-450) 112 TH/MM3 (150-450) 131 TH/MM3 (150-450) Monocytes (%) (Auto) 13.3 % (0.0-8.0) 14.1 % (0.0-8.0) Eosinophils (%) (Auto) 6.6 % (0.0-4.0) 9.7 % (0.0-4.0) Monocytes # (Auto) 1.0 TH/MM3 (0-0.9) Eosinophils # (Auto) 0.5 TH/MM3 (0-0.4) 0.6 TH/MM3 (0-0.4) Neutrophils % (Manual) 73 % (16-70) Myelocytes 1 % (0-0) Nucleated Red Blood Cells 1 /100 WBC (0-0) Platelet Estimate LOW (NORMAL) LOW (NORMAL) LOW (NORMAL) Eosinophils % 12 % (0-4) Basophilic Stippling MOD (NORMAL) MOD (NORMAL) Blood Urea Nitrogen 23 MG/DL (7-18) 19 MG/DL (7-18) Creatinine 1.38 MG/DL (0.50-1.00) 1.19 MG/DL (0.50-1.00) Random Glucose 121 MG/DL (74-106) Total Protein 5.1 GM/DL (6.4-8.2) Albumin 2.0 GM/DL (3.4-5.0) Magnesium Level 1.1 MG/DL (1.5-2.5) 1.1 MG/DL (1.5-2.5) Aspartate Amino Transf (AST/SGOT) 12 U/L (15-37) Alanine Aminotransferase (ALT/SGPT) 8 U/L (10-53) Potassium Level 3.0 MEQ/L (3.5-5.1) Carbon Dioxide Level 34.1 MEQ/L (21.0-32.0) 33.6 MEQ/L (21.0-32.0) Estimat Glomerular Filtration Rate 38 ML/MIN (>89) 45 ML/MIN (>89) Lymphocytes # (Auto) 0.9 TH/MM3 (1.0-4.8) Polychromasia 2.2 % (0.0-1.9) Imaging Last Impressions Upper Extremity Ultrasound 12/07/17 0000 Signed Impressions: Service Date/Time: Thursday, December 07, 2017 08:56 - CONCLUSION: 1. Negative for deep venous thrombosis. Dorian Vasquez MD Lower Extremity Ultrasound 12/07/17 0000 Signed Impressions: Service Date/Time: Thursday, December 07, 2017 13:59 - CONCLUSION: Normal examination. Perry Bowden MD Head CT 12/06/17 0000 Signed Impressions: Service Date/Time: November 21:57 - CONCLUSION: 1. Senescent changes with mild small vessel ischemic periventricular white matter demyelination. 2. Minimal bilateral maxillary sinus because of disease. 3. No acute intracranial normality. Riccardo Stack MD Chest X-Ray 12/03/17 0000 Signed Impressions: Service Date/Time: Sunday, December 03, 2017 08:10 - CONCLUSION: Persistent, but improved, left lower lobe consolidation. Dorian Vasquez MD Chest CT 11/26/17 0000 Signed Impressions: Service Date/Time: Sunday, November 26, 2017 17:16 - CONCLUSION: 1. Improvement in bilateral lung consolidation since November 15. Interval development of small bilateral effusions, right greater than left. Sachin Gonzalez MD Abdomen/Pelvis CT 11/26/17 0000 Signed Impressions: Service Date/Time: Sunday, November 26, 2017 17:16 - CONCLUSION: Very limited exam because of arms and body habitus. I don't see abscess or free air. Double-J stent on the right. Joseph Baeza MD FACR Abdomen X-Ray 11/17/17 0000 Signed Impressions: Service Date/Time: Friday, November 17, 2017 19:04 - CONCLUSION: The proximal tip of the double-J stent is either in the expected region of the right renal pelvis or proximal ureter. Allen Mensah MD PE at Discharge GENERAL: morbidly obese, in no apparent distress. CARDIOVASCULAR: Regular rate and regular rhythm without murmurs, gallops, or rubs. RESPIRATORY: Clear to auscultation. Breath sounds equal bilaterally. No wheezes , rales, or rhonchi. GASTROINTESTINAL: Abdomen soft, non-tender, nondistended. Normal, active bowel sounds MUSCULOSKELETAL: Extremities without clubbing, cyanosis, or edema. NEURO: Alert & Oriented x4 to person, place, time, situation. Moves all ext x4 Hospital Course Metabolic Encephalopathy - improved Chronic Pain - Awake and alert - Lortab 5/325 mg PRN Acute hypoxic and hypercarbic respiratory failure- Extubated 11/22 Healthcare Associated Pneumonia treated with antibiotics. Continue with oxygen keep sat >92% Bronchodilators, IS, - sputum culture: MRSA CT chest 11/26: Improvement in bilateral lung consolidation since November 15. small bilateral effusions, right greater than left. s/p Septic Shock - Atrial fibrillation with rapid ventricular response - continue metoprolol and cardizem. echo with EF 55%. Acute Kidney Injury - resolving. Acute pyelonephritis Metabolic alkalosis secondary to intravascular volume contraction hypokalemia/hypomagnesemia Monitor renal function, I/O's, avoid nephrotoxins - s/p Emergent cysto with stent- f/u with Urology as outpatient. Renal is following- Dr. Lopez. -electrolyte supplementation as needed. -garcia was dc'ed. Super Morbid Obesity Lactic Acidosis- cleared Anion-gap Metabolic acidosis- resolved. Acute intravascular volume overload Severe acute protein calorie malnutrition -Pured diet, poor oral intake -Pepcid for GI prophylaxis -CT abdomen/pelvis: No abscess or free air History of prior MRSA pneumonia Acute pyelonephritis Pseudomonas bacteremia Positive C-diff - evaluated by ID. - Abx per Dr. Cartagena. Zyvox, Zerbaxa discontinued on 12/03 per ID, Continue PO Vanco. -11/25 urine cx : C. Albicans -11/20 BC :NGTD -11/17 BC: Coag negative staph 10/18 bottles..likely contaminant - 11/17 Urine cx :Pseudomonas - 2/1 blood cultures: pseudomonas - 2/1 urine culture: pseudomonas - 2/1 sputum culture: MRSA thrombocytopenia- improved. anemia- improved. heparin on hold- HIT ab negative- continue to monitor- stool for blood pending. hematology following. continue PT. Prophylaxis: SCDs, SQH held for thrombocytopenia. Pepcid Pt Condition on Discharge: Fair Discharge Disposition: Discharge to SNF Discharge Time: > 30 minutes Discharge Instructions DIET: Follow Instructions for: Heart Healthy Diet, Diabetic Diet Activities you can perform: Regular-No Restrictions Vianey Dupree MD Dec 10, 2017 12:20
[2017-12-10] MEDS ORDERED: XANA1TAB2 PO (12:21)
[2017-12-10] MEDS ORDERED: METO25TA3 PO (12:21)
[2017-12-10] MEDS ORDERED: HYDR-3516 PO (12:21)
[2017-12-10] MEDS ORDERED: VANC500I3 PO (12:21)
--- NOTE | 2017-12-10 14:06 | PD.ONC.PN ---
Subjective Subjective Remarks Afebrile Pt reports "I don't feel bad, but I don't feel good either" Denies pain Happy to be going back to the detention today Complains of fatigue Objective Data Date Time Temp Pulse Resp B/P (MAP) Pulse Ox O2 Delivery O2 Flow Rate FiO2 12/10/17 11:10 96 Nasal Cannula 2.00 12/10/17 08:00 97.7 97 20 115/53 (73) 96 12/10/17 04:00 97.2 91 18 104/50 (68) 100 12/10/17 00:00 97 12/10/17 00:00 98.5 85 18 134/65 (88) 100 12/09/17 20:02 88 12/09/17 20:00 97.9 86 18 104/50 (68) 100 12/09/17 16:00 96.4 93 16 106/64 (78) 100 12/10/17 12/10/17 12/10/17 07:00 15:00 23:00 Intake Total 360 ml Output Total 1500 ml Balance -1140 ml Result Diagram: 12/10/17 1055 12/10/17 1055 Laboratory Results Laboratory Tests Test 12/10/17 10:55 White Blood Count 5.8 TH/MM3 Red Blood Count 3.24 MIL/MM3 Hemoglobin 9.5 GM/DL Hematocrit 28.3 % Mean Corpuscular Volume 87.6 FL Mean Corpuscular Hemoglobin 29.4 PG Mean Corpuscular Hemoglobin Concent 33.5 % Red Cell Distribution Width 17.7 % Platelet Count 131 TH/MM3 Mean Platelet Volume 8.2 FL Neutrophils (%) (Auto) 59.7 % Lymphocytes (%) (Auto) 16.0 % Monocytes (%) (Auto) 14.1 % Eosinophils (%) (Auto) 9.7 % Basophils (%) (Auto) 0.5 % Neutrophils # (Auto) 3.5 TH/MM3 Lymphocytes # (Auto) 0.9 TH/MM3 Monocytes # (Auto) 0.8 TH/MM3 Eosinophils # (Auto) 0.6 TH/MM3 Basophils # (Auto) 0.0 TH/MM3 CBC Comment AUTO DIFF Differential Comment AUTO DIFF CONFIRMED Platelet Estimate LOW Platelet Morphology Comment NORMAL Polychromasia 2.2 % Basophilic Stippling MOD Hematology Comments Blood Urea Nitrogen 19 MG/DL Creatinine 1.19 MG/DL Random Glucose 92 MG/DL Calcium Level 9.4 MG/DL Magnesium Level 1.1 MG/DL Sodium Level 142 MEQ/L Potassium Level 3.6 MEQ/L Chloride Level 102 MEQ/L Carbon Dioxide Level 33.6 MEQ/L Anion Gap 6 MEQ/L Estimat Glomerular Filtration Rate 45 ML/MIN Administered Medications Medications (Trade) Dose Ordered Sig/Mirta Route PRN Reason Start Time Stop Time Status Last Admin Dose Admin Albuterol/ Ipratropium (Duoneb Neb) 1 ampule Q2HR NEB PRN INH WHEEZING 11/15/17 14:00 11/17/17 23:39 Acetaminophen (Tylenol) 650 mg Q6H PRN PO PAIN 1-6 AND/OR FEVER >101F 11/15/17 14:00 11/27/17 16:05 Famotidine (Pepcid Inj) 10 mg Q12HR IV PUSH 11/15/17 21:00 12/10/17 09:58 Ondansetron HCl (Zofran Inj) 4 mg Q6H PRN IV PUSH NAUSEA OR VOMITING 11/15/17 14:00 11/27/17 17:52 Heparin Sodium (Porcine) (Heparin Inj) 5,000 units Q8H SQ 11/15/17 15:00 Future Hold 12/02/17 05:19 Miscellaneous Information 1 Q361D XX 11/15/17 14:00 11/15/17 19:00 Chlorhexidine Gluconate (Chlorhexidine 2% Cloth) Taper DAILY@04 TOP 11/16/17 04:00 11/12/18 03:59 11/30/17 04:00 Senna/Docusate Sodium (Zelda-Colace) 1 tab BID PO 11/15/17 21:00 12/10/17 09:58 Chlorhexidine Gluconate (Peridex 0.12% Liq) 15 ml BID@08,20 MT 11/16/17 20:00 12/01/17 08:00 Vancomycin HCl (Vancomycin 25 Mg/ml Liq) 125 mg QID PO 11/24/17 09:00 12/14/17 08:59 12/10/17 13:08 Acetaminophen/ Hydrocodone Bitart ([place] 5-325 Mg) 1 tab Q4H PRN PO PAIN SCALE 7 TO 10 11/24/17 18:15 12/07/17 09:05 Nystatin (Mycostatin Cream) 1 applic Q6HR TOPICAL 11/26/17 12:00 12/10/17 13:07 Diltiazem HCl (Cardizem) 60 mg Q6HR PO 11/29/17 06:15 12/10/17 13:07 Metoprolol Tartrate (Lopressor) 12.5 mg Q12HR PO 11/30/17 15:00 12/10/17 09:59 Furosemide (Lasix) 40 mg DAILY PO 12/06/17 09:00 12/10/17 10:00 Objective Remarks GENERAL: Morbidly obese female asleep in bariatric bed on approach in no obvious distress SKIN: Warm and dry. HEAD: Normocephalic. EYES: No injection or drainage. NECK: Supple, trachea midline. CARDIOVASCULAR: +S1/S2 RESPIRATORY: Anterior west clear but diminished. GASTROINTESTINAL: Abdomen soft, non-tender, nondistended. EXTREMITIES: No cyanosis. SCDs to bilateral lower extremities. NEUROLOGICAL: Awake and alert. No obvious focal deficit. Assessment/Plan Problem List: (1) Normocytic anemia ICD Codes: D64.9 - Anemia, unspecified Plan: ---TIBC low, ferritin elevated, consistent with anemia of chronic disease which is consistent with the patient's multiple comorbidities --no obvious bleeding --stool hemoccult pending (2) Thrombocytopenia ICD Codes: D69.6 - Thrombocytopenia, unspecified Plan: --suspect consumptive process -- recent Pseudomonas septicemia secondary to a complicated urinary tract infection and C diff colitis, she has significant infectious etiologies which could explain a peripheral consumption of her platelets secondary to thrombin activation. (DIC) --HIT negative. --U/S upper extremity is negative for DVT --U/S lower extremity is negative for DVT Assessment 67y/o female with thrombocytopenia associated with anemia. h/o morbid obesity, has a history of MRSA pneumonia, history of chronic hypercapnia, hypoxic respiratory failure, history of gastroesophageal reflux disease, hypertension, diabetes mellitus, hyperlipidemia, A. fib, chronic oxygen supplementation HPI (brought forward for continuity of care: admitted to [facility] on 10/2017 after she was found to be non-responsive at her senior living facility. She was intubated in the field and was brought into the emergency department. She was noted to be septic. Her lactic acid was elevated at close to seven. She was in acute renal failure. She had leukocytosis. The patient was noted to have Pseudomonas bacteremia associated with Pseudomonas septicemia (urosepsis) and was admitted to the critical care unit on the ventilator. She remained in the ICU up until 12/04/2017. The patient was extubated after a relatively brief period time on the ventilator. While on the ventilator, she did require vasopressor support. Over the course of this hospitalization, the patient's renal function has improved. Her respiratory status has improved. From a hematologic standpoint, she has had significant worsening of her anemia during this hospitalization with a hemoglobin of 11 gm/dl at the time of admission. Her hemoglobin has dropped down to a griffin of 7.7. She has also developed progressive thrombocytopenia since she was admitted with a presenting platelet count of close to 310,000. The platelet count has nadired at just over 60,000. Heparin/ platelet factor IV antibodies are negative. Plan 1. Clear for discharge from hematology standpoint 2. Erythropoietin level pending. The patient may benefit from Procrit to stimulate hematopoiesis if she is low. 3. Monitor periodic CBC Vero Pardo Dec 10, 2017 14:06
[2017-12-10 21:57] LABS: ALB/GLOB RATIO (SPE) 1.45 (1.39-2.23)
== END 2017-12-10 18:08 | DRG 870 ==
LOC: NEPC 11:28 → NEDA 13:06 → HIMW 15:31 → N07B 12-04 15:57
PROVIDERS: ADMIT Internal Medicine; ATTEND Internal Medicine
PROC: 5A1955Z Respiratory Ventilation, Greater than 96 Consecutive Hours (ICD-10-PCS; principal; 2017-11-15)
PROC: 0T9B70Z Drainage of Bladder with Drainage Device, Via Natural or Artificial Opening (ICD-10-PCS; 2017-11-15)
PROC: 0D9670Z Drainage of Stomach with Drainage Device, Via Natural or Artificial Opening (ICD-10-PCS; 2017-11-15)
PROC: 0TJB8ZZ Inspection of Bladder, Via Natural or Artificial Opening Endoscopic (ICD-10-PCS; 2017-11-16)
PROC: 0T764DZ Dilation of Right Ureter with Intraluminal Device, Percutaneous Endoscopic Approach (ICD-10-PCS; 2017-11-16)
PROC: 0T9B70Z Drainage of Bladder with Drainage Device, Via Natural or Artificial Opening (ICD-10-PCS; 2017-11-16)
PROC: 05HM33Z Insertion of Infusion Device into Right Internal Jugular Vein, Percutaneous Approach (ICD-10-PCS; 2017-11-16)
PROC: 30233N1 Transfusion of Nonautologous Red Blood Cells into Peripheral Vein, Percutaneous Approach (ICD-10-PCS; 2017-12-07)
DX: A41.52 Sepsis due to Pseudomonas (principal); J96.21 Acute and chronic respiratory failure with hypoxia; R65.21 Severe sepsis with septic shock; J69.0 Pneumonitis due to inhalation of food and vomit; E43 Unspecified severe protein-calorie malnutrition; G93.41 Metabolic encephalopathy; N17.9 Acute kidney failure, unspecified; A04.72 Enterocolitis due to Clostridium difficile, not specified as recurrent; J15.212 Pneumonia due to Methicillin resistant Staphylococcus aureus; J96.22 Acute and chronic respiratory failure with hypercapnia; E87.4 Mixed disorder of acid-base balance; I13.0 Hypertensive heart and chronic kidney disease with heart failure and stage 1 through stage 4 chronic kidney disease, or unspecified chronic kidney disease; J44.0 Chronic obstructive pulmonary disease with (acute) lower respiratory infection; N39.0 Urinary tract infection, site not specified; Z68.43 Body mass index [BMI] 50.0-59.9, adult; B37.49 Other urogenital candidiasis; N13.6 Pyonephrosis; E87.0 Hyperosmolality and hypernatremia; I50.9 Heart failure, unspecified; E11.22 Type 2 diabetes mellitus with diabetic chronic kidney disease; E66.01 Morbid (severe) obesity due to excess calories; I48.91 Unspecified atrial fibrillation; Z78.1 Physical restraint status; K21.9 Gastro-esophageal reflux disease without esophagitis; E78.5 Hyperlipidemia, unspecified; Z79.01 Long term (current) use of anticoagulants; N18.9 Chronic kidney disease, unspecified; E11.65 Type 2 diabetes mellitus with hyperglycemia; Y95 Nosocomial condition; Z86.14 Personal history of Methicillin resistant Staphylococcus aureus infection; Z87.01 Personal history of pneumonia (recurrent); R34 Anuria and oliguria; R11.2 Nausea with vomiting, unspecified; Z99.81 Dependence on supplemental oxygen; L98.8 Other specified disorders of the skin and subcutaneous tissue; Z83.3 Family history of diabetes mellitus; Z82.49 Family history of ischemic heart disease and other diseases of the circulatory system; Z83.6 Family history of other diseases of the respiratory system; K57.30 Diverticulosis of large intestine without perforation or abscess without bleeding; N28.1 Cyst of kidney, acquired; D63.8 Anemia in other chronic diseases classified elsewhere; D69.59 Other secondary thrombocytopenia; E83.42 Hypomagnesemia; E87.6 Hypokalemia; G89.29 Other chronic pain; G62.9 Polyneuropathy, unspecified
CPT/HCPCS: 36430; 36556; 36600; 51702; 70450; 71045; 71250; 74018; 74176; 76937; 80048; 80053; 80202; 81001; 82550; 82607; 82668; 82728; 82746; 82805; 82948; 83010; 83540; 83550; 83605; 83615; 83735; 83880; 84100; 84132; 84134; 84155; 84165; 84484; 85007; 85025; 85027; 85044; 85384; 85610; 85730; 86021; 86022; 86038; 86160; 86403; 86850; 86880; 86900; 86901; 86902; 86920; 86922; 87040; 87070; 87077; 87086; 87147; 87186; 87205; 87449; 87493; 87641; 87804; 93005; 93306; 93970; 93971; 94002; 94003; 94150; 94640; 94664; 96365; 96368; 96375; C1769; C2617; J0171; J0282; J0456; J0690; J0695; J0713; J1120; J1160; J1205; J1644; J1720; J1940; J1956; J2020; J2250; J2370; J2405; J3010; J3370; J3475; J3480; J7030; J7040; J7050; J7060; J7070; J7120; P9016; P9047; Q9963

== ENCOUNTER 2017-12-13 10:01 | Inpatient (IN) | payer MEDICARE, OTHER ==
[2017-12-13] VITALS (28 sets, daily range): BP systolic 56–217; BP diastolic 36–154; PULSE 79–120; RESP 0–24; TEMP 97.6–110; O2SAT 94–100
[~2017-12-13] VITALS: Ht 170.2 cm; Wt 155.4 kg
[~2017-12-13 10:01] MED LIST changes: +ASCO500C PO; -BROV15NE NEB; +BUDE0.5S NEB; -CLOT1CRE8 TOPICAL; -DEXTROSE 50% IN WATER 50 ML SYRINGE IV ONE; -DILT120C50 PO; +DILT90TA PO; -EPINEPHrine HCL (1:10,000) 1 MG/10 ML SYRINGE IV ONE; +FORM20NE INH; +FURO1TAB60 PO; +HYDR-3516 PO; -LEVA1.257 NEB; +LEVA3NEB12 NEB; +LEVEMIR SQ; -LINE1TAB PO; -NOVOLOGP2 SQ; +NOVORP2 SQ; +ONETAB22; +POTA-163 PO; -REST15CA PO; +VANC500I3 PO; -XARE10TA PO; +ZOLO100T PO
[2017-12-13] MEDS ORDERED: DEXTROSE 50% IN WATER 50 ML SYRINGE ONE (10:55)
[2017-12-13] MEDS ORDERED: DEXTROSE 50% IN WATER 50 ML VIAL(D50) IV PUSH ONE (11:00)
[2017-12-13 11:37] LABS: BASOPHIL % 0.8 % (0.0-2.0); EOSINOPHIL # 0.7 TH/MM3 (0-0.4); EOSINOPHIL % 12.1 % (0.0-4.0); HEMATOCRIT 29.1 % (35.0-46.0); HEMOGLOBIN 9.5 GM/DL (11.6-15.3); LYMPH % 19.2 % (9.0-44.0); MEAN CELL VOLUME 89.1 FL (80.0-100.0); MEAN CORPUSCULAR HGB CONC 32.6 % (32.0-36.0); MEAN PLATELET VOLUME 7.9 FL (7.0-11.0); MONO % 12.8 % (0.0-8.0); MONOCYTE # 0.7 TH/MM3 (0-0.9); NEUT % 55.1 % (16.0-70.0); PLATELET COUNT 246 TH/MM3 (150-450); RED BLOOD COUNT 3.27 MIL/MM3 (4.00-5.30); RED CELL DISTRIBUTION WIDTH 17.5 % (11.6-17.2); WHITE BLOOD COUNT 5.4 TH/MM3 (4.0-11.0)
--- NOTE | 2017-12-13 11:44 | PD ---
HPI Chief Complaint: Respiratory Distress Time Seen by Provider: 11:00 Travel History International Travel<30 days: No Contact w/Intl Traveler<30days: No Traveled to known affect area: No History of Present Illness HPI This patient was found unresponsive at the half-way. She was just discharged from the hospital 2 days ago. She is morbidly obese with multiple severe chronic illnesses and was both in respiratory distress and decreased responsiveness at the same time. Was hypoxic in the 80s with nasal cannula. Was brought in on BiPAP. Accu-Chek was in the 30s when paramedics found her. Initial GCS was reported as 3. She received some D10 through a right arm PICC line but upon arrival staff felt that the PICC line was not working properly. Patient cannot provide any history or review of systems. She arrives critically ill PFS Past Medical History Hx Anticoagulant Therapy: Yes (XARELTO ) Asthma: Yes Atrial Fibrillation: Yes Heart Rhythm Problems: Yes Cardiovascular Problems: Yes (HTN) High Cholesterol: Yes Congestive Heart Failure: Yes Diminished Hearing: No GERD: Yes Hiatal Hernia: Yes Hypertension: Yes Respiratory: Yes Immunizations Current: No Pneumonia: Yes ?: Not Menopausal: Yes Past Surgical History Abdominal Surgery: Yes (HIATAL HERNIA ) Appendectomy: Yes Hysterectomy: Yes Social History Alcohol Use: No Tobacco Use: No Substance Use: No Allergies-Medications (Allergen,Severity, Reaction): Coded Allergies: penicillin G (Unverified Allergy, Severe, 05/29/17) Reported Meds & Prescriptions Reported Meds & Active Scripts Active Metoprolol Tartrate 25 Mg Tab 12.5 Mg PO Q12HR 30 Days Vancomycin Inj (Vancomycin HCl) 500 Mg Inj 125 Mg PO QID 4 Days Hydrocodone-Acetaminophen 5-325 mg Tab 1 Tab PO Q6H PRN Xanax (Alprazolam) 1 Mg Tab 1 Mg PO BID PRN Lactinex (Lactobacillus Acidophilus) 1 Chew 1 Tab CHEW TID 10 Days Famotidine 20 Mg Tab 10 Mg PO BID Reported Zoloft (Sertraline HCl) 100 Mg Tab 100 Mg PO DAILY Xopenex Neb (Levalbuterol HCl) 1.25 Mg/3 Ml Neb 1.25 Mg NEB Q4HR Vitamin C (Ascorbic Acid) 500 Mg Capsule 500 Mg PO BID Potassium Chloride ER (Potassium Chloride) 20 Meq Tab 20 Meq PO DAILY Novolin R Inj (Insulin Human Regular) 1,000 Unit/10 Ml Vial 0 SQ DIRECTED Sliding Scale As Directed. One Daily Plus Minerals (Multivitamin with Minerals) 1 Each Tablet Levemir Inj (Insulin Detemir) 1,000 unit/ 10 ML Vial 40 Units SQ BID Do not mix with any other Insulin. Lasix (Furosemide) 40 Mg Tab 40 Mg PO DAILY Perforomist Neb (Formoterol Fumarate) 20 Mcg/2 Ml Neb 1 Nebule INH BID Diltiazem (Diltiazem HCl) 90 Mg Tab 90 Mg PO DAILY Budesonide Neb 0.5 Mg/2 Ml Neb 0.5 Mg NEB Q12HR NEB Zofran Odt (Ondansetron Odt) 4 Mg Tab 4 Mg SL Q6HR PRN Sennosides 8.6 Mg Tab 17.2 Mg PO BID Glucagen Hypokit Inj Kit (Glucagon (Rdna) Inj Kit) 1 Mg Kit 1 Mg IM ONCE PRN Flomax (Tamsulosin HCl) 0.4 Mg Cap 0.4 Mg PO HS Albuterol Neb (Albuterol Sulfate) 2.5 Mg/3 Ml Neb 2.5 Mg NEB Q4HR PRN While awake Acetylcysteine Liq/Neb (Acetylcysteine) 200 mg/ml Soln 4 Ml NEB Q8HR PRN Lyrica (Pregabalin) 75 Mg Cap 75 Mg PO DAILY Review of Systems ROS Limitations: Clinical Condition, Unresponsive, Poor Historian Physical Exam Narrative GENERAL: Morbidly obese woman on BiPAP . SKIN: Focused skin assessment reveals no rash and nodules. Skin is Warm and dry. HEAD: Atraumatic. Normocephalic. EYES: Pupils equal and round. No scleral icterus. No injection or drainage. ENT: No nasal bleeding or discharge. Mucous membranes pink and moist. NECK: Trachea midline. No JVD. CARDIOVASCULAR: Regular rate and rhythm. No murmur appreciated. RESPIRATORY: Positive accessory muscle use. Decreased breath sounds in the bases. Breath sounds equal bilaterally. GASTROINTESTINAL: Abdomen soft, non-tender, nondistended. Hepatic and splenic margins not palpable. MUSCULOSKELETAL: No obvious deformities. No clubbing. No cyanosis. No edema. NEUROLOGICAL: Arouses to loud voice. No obvious cranial nerve deficits. Motor and sensory exams challenging given her limited participation. Can answer 1 word questions but difficult to understand . PSYCHIATRIC: Drowsy and lethargic mood and affect; insight and judgment poor . Data Data Last Documented VS Vital Signs Date Time Temp Pulse Resp B/P (MAP) Pulse Ox O2 Delivery O2 Flow Rate FiO2 12/13/17 12:15 100 23 129/60 (83) 98 BiPAP 50 12/13/17 11:00 98.4 Orders Orders Dextrose 50% In Cathy (Syr) Inj (D50w (Syr (12/13/17 10:55) Chest, Single Ap (12/13/17 ) Electrocardiogram (12/13/17 ) Complete Blood Count With Diff (12/13/17 11:00) Basic Metabolic Panel (Bmp) (12/13/17 11:00) Arterial Blood Gas (Abg) (12/13/17 ) Dextrose 50% In Cathy (Vial) Inj (D50w (Vi (12/13/17 11:00) Dextrose 50% In Cathy (Vial) Inj (D50w (Vi (12/13/17 11:00) Urinalysis - C+S If Indicated (12/13/17 12:17) Lactic Acid Sepsis Protocol (12/13/17 12:17) Blood Culture (12/13/17 12:17) Urinary Catheter Insert/Apply (12/13/17 12:20) Lactic Acid (12/13/17 12:21) Ct Brain W/O Iv Contrast(Rout) (12/13/17 ) Admit Order (Ed Use Only) (12/13/17 13:10) Labs Laboratory Tests Test 12/13/17 11:05 12/13/17 11:55 12/13/17 12:20 White Blood Count 5.4 TH/MM3 Red Blood Count 3.27 MIL/MM3 Hemoglobin 9.5 GM/DL Hematocrit 29.1 % Mean Corpuscular Volume 89.1 FL Mean Corpuscular Hemoglobin 29.0 PG Mean Corpuscular Hemoglobin Concent 32.6 % Red Cell Distribution Width 17.5 % Platelet Count 246 TH/MM3 Mean Platelet Volume 7.9 FL Neutrophils (%) (Auto) 55.1 % Lymphocytes (%) (Auto) 19.2 % Monocytes (%) (Auto) 12.8 % Eosinophils (%) (Auto) 12.1 % Basophils (%) (Auto) 0.8 % Neutrophils # (Auto) 3.0 TH/MM3 Lymphocytes # (Auto) 1.0 TH/MM3 Monocytes # (Auto) 0.7 TH/MM3 Eosinophils # (Auto) 0.7 TH/MM3 Basophils # (Auto) 0.0 TH/MM3 CBC Comment DIFF FINAL Differential Comment Blood Urea Nitrogen 15 MG/DL Creatinine 1.60 MG/DL Random Glucose 100 MG/DL Calcium Level 8.4 MG/DL Sodium Level 141 MEQ/L Potassium Level 3.5 MEQ/L Chloride Level 101 MEQ/L Carbon Dioxide Level 31.8 MEQ/L Anion Gap 8 MEQ/L Estimat Glomerular Filtration Rate 32 ML/MIN Blood Gas Puncture Site LT BRACHIAL Blood Gas Patient Temperature 98.6 Blood Gas HCO3 31 mmol/L Blood Gas Base Excess 4.9 mmol/L Blood Gas Oxygen Saturation 96 % Arterial Blood pH 7.32 Arterial Blood Partial Pressure CO2 61 mmHg Arterial Blood Partial Pressure O2 105 mmHG Arterial Blood Oxygen Content 13.3 Vol % Arterial Blood Carboxyhemoglobin 1.8 % Arterial Blood Methemoglobin 0.3 % Blood Gas Hemoglobin 9.7 G/DL Oxygen Delivery Device BIPAP Blood Gas Ventilator Setting 16 IPAP/ 8 EPAP Blood Gas Inspired Oxygen 50 % Lactic Acid Level 1.1 mmol/L MDM Medical Decision Making Medical Screen Exam Complete: Yes Emergency Medical Condition: Yes Medical Record Reviewed: Yes Differential Diagnosis Respiratory failure, hypoglycemia, COPD Narrative Course This patient arrives critically ill. I reviewed her medical record. She was hospitalized here for a full month and just discharged 2 days ago back to the half-way This patient arrives with respiratory distress on BiPAP. She would be an extremely challenging intubation. Also, she has no IV access. CENTRAL VENOUS LINE: The site was prepped with Betadine and sterilely draped. No anesthesia required . The deep vein was cannulated using normal Seldinger technique. A triple lumen central line was placed in the right internal jugular site and secured with a nonsutured dressing. The site was sterilely dressed. The patient tolerated the procedure well. I will review a postprocedure chest x-ray I have ordered a lab workup. This to include lactate and cultures and ABG Patient is maintaining good saturations on the BiPAP and is controlling her airway so I do not feel she requires emergent intubation Given that this would be a terribly difficult intubation I had discussed with anesthesia Dr. Henning who came to the ER and also visualized the patient and did not feel she required intubation at this time I gave the patient 2 A of D50 given her hypoglycemia and decreased responsiveness. Her sugar came up to 83 after the first 1. She is now talking and answering some questions so her mental status did improve a good bit I reviewed the labs. White count is 5.4. Metabolic so recently normal other than some mild renal insufficiency with creatinine 1.6 Urinalysis and lactate are pending 2 blood culture sets sent Of note, on chest x-ray the central line tip is in the right atrium. We pulled it back 3 cm I reviewed the case in detail with the skiver blockers who has evaluated the patient. She is admitted to intensive care on BiPAP Critical Care Narrative Aggregate critical care time was 85 minutes. Time to perform other separately billable procedures was not included in the critical care time. My time did not include minutes spent treating any other patients simultaneously or on activities that did not directly contribute to the patient's treatment. The services I provided to this patient were to treat and/or prevent clinically significant deterioration that could result in: Respiratory collapse, cardiopulmonary arrest, permanent neurologic disability I provided critical care services requiring my management, as noted below: Chart data review, documentation time, medication orders and management, vital sign assessments/reviewing monitor data, ordering and reviewing lab tests, ordering and interpreting/reviewing x-rays and diagnostic studies, care of the patient and discussion of the patient with the admitting physicians. Diagnosis Primary Impression: Acute hypercapnic respiratory failure Additional Impression: Hypoglycemia Admitting Information Admitting Physician Requests: John Ramirez MD Dec 13, 2017 11:44
[2017-12-13 11:51] LABS: BICARBONATE 31.8 MEQ/L (21.0-32.0); CALCIUM 8.4 MG/DL (8.5-10.1); CREATININE 1.6 MG/DL (0.50-1.00)
--- NOTE | 2017-12-13 11:53 | RADRPT ---
EXAM DATE/TIME: 12/13/2017 11:36 [facility] COMPARISON: CHEST SINGLE AP, December 03, 2017, 8:10. INDICATIONS : Central line placement. MEDICAL HISTORY : Cardiovascular disease. Hypertension hiatal hernia SURGICAL HISTORY : Appendectomy. ENCOUNTER: Initial ACUITY: 1 day PAIN SCORE: Non-responsive. LOCATION: Bilateral chest FINDINGS: A single view of the chest demonstrates patient rotated to the left. Right jugular central line with tip in the right atrium. No definite pneumothorax. Cardiomegaly and left basilar density. The cardio mediastinal contours are unremarkable. Osseous structures are intact. CONCLUSION: Adequate placement of right jugular central line. El Nuñez MD on December 13, 2017 at 11:51 Board Certified Radiologist. This report was verified electronically.
[2017-12-13 13:18] LABS: BACTERIA, URINE MANY /hpf; BILIRUBIN, URINE NEG (NEG); BLOOD, URINE SMALL (NEG); GLUCOSE,URINE NEG (NEG); KETONE, URINE NEG (NEG); MUCUS URINE FEW /lpf (OCC); NITRITE,URINE POS (NEG); PH, URINE 6.5 (5.0-8.5); URINE COLOR YELLOW (YELLW/STRAW); URINE LEUKOCYTE ESTERASE LARGE (NEG); WHITE BLOOD CELL CLUMPS MANY
[2017-12-13] MEDS ORDERED: POTASSIUM PHOSPHATE INJ 30 MMOL in SODIUM CHLOR 0.9% 250 ML INJ 250 ML IV PRN (13:27)
[2017-12-13] MEDS ORDERED: POTASSIUM PHOSPHATE MONOBASIC 500 MG TAB PO/TUBE PRN (13:27)
[2017-12-13] MEDS ORDERED: POTASSIUM CHLOR 20 MEQ PREMIX 100 ML IV PRN ×2 (13:30)
[2017-12-13] MEDS ORDERED: MISCELLANEOUS NURSING INFORMATION XX SCH (13:30)
[2017-12-13] MEDS ORDERED: BISACODYL 10 MG SUPP RECTAL PRN (13:30)
[2017-12-13] MEDS ORDERED: MAGNESIUM HYDROXIDE SUSP 30 ML CUP PO PRN (13:30)
[2017-12-13] MEDS ORDERED: ACETAMINOPHEN 325 MG TAB PO PRN (13:30)
[2017-12-13] MEDS ORDERED: SODIUM CHLORIDE 0.9% FLUSH 10 ML FLUSH IV FLUSH PRN (13:30)
[2017-12-13] MEDS ORDERED: MAGNESIUM SULFATE INJ 2 GM in SODIUM CHLORIDE 0.9% INJ 96 ML IV PRN (13:30)
[2017-12-13] MEDS ORDERED: POTASSIUM CHLOR 40 MEQ PREMIX 100 ML IV PRN ×2 (13:30)
[2017-12-13] MEDS ORDERED: LACTULOSE SYRUP 20 GM/30 ML CUP PO PRN (13:30)
[2017-12-13] MEDS ORDERED: DEXTROSE 50% IN WATER 50 ML VIAL(D50) IV PUSH PRN (13:30)
[2017-12-13] MEDS ORDERED: POTASSIUM CHLORIDE 25 MEQ EFFERVESCENT TAB PO PRN (13:30)
[2017-12-13] MEDS ORDERED: ALPRAZolam 1 MG TAB PO PRN (13:30)
[2017-12-13] MEDS ORDERED: RESP: ALBUTEROL 2.5 MG/3 ML NEB (PRN) INH (13:30)
[2017-12-13] MEDS ORDERED: SENNOSIDES 8.6 MG TAB PO PRN (13:30)
[2017-12-13] MEDS ORDERED: CHLORHEXIDINE GLUCONATE 2 % 1 PACK (2 CLOTHS) TOP PRN (13:30)
[2017-12-13] MEDS ORDERED: POTASSIUM PHOSPHATE MONOBASIC 500 MG TAB PO PRN (13:30)
[2017-12-13] MEDS ORDERED: SODIUM PHOSPHATE INJ 30 MMOL in SODIUM CHLOR 0.9% 250 ML INJ 240 ML IV PRN (13:30)
[2017-12-13] MEDS ORDERED: GLUCAGON 1 MG/ML VIAL OTHER PRN (13:30)
[2017-12-13] MEDS ORDERED: MAGNESIUM OXIDE 400 MG TAB PO PRN (13:30)
[2017-12-13] MEDS ORDERED: Vancomycin Consult Pharmacy 1 EA OTHER SCH (13:30)
[2017-12-13] MEDS ORDERED: PILL SPLITTER OTHER PRN (13:30)
[2017-12-13] MEDS ORDERED: MAGNESIUM SULFATE INJ 4 GM in SODIUM CHLORIDE 0.9% INJ 92 ML IV PRN (13:30)
[2017-12-13] MEDS ORDERED: ONDANSETRON HCL 4 MG/2 ML VIAL IV PUSH PRN (13:30)
--- NOTE | 2017-12-13 13:35 | HHI.HP ---
[facility] Service Critical Care Medicine Primary Care Physician Kirk Martell MD Admission Diagnosis acute hypercarbic resp failure, hypoglcemia Diagnosis: (1) Acute hypercapnic respiratory failure Diagnosis: Principal (2) Hypoglycemia Diagnosis: Principal (3) BMI 50.0-59.9, adult Diagnosis: Principal (4) Afib Diagnosis: Secondary (5) Dyslipidemia Diagnosis: Secondary (6) Peripheral neuropathy Diagnosis: Secondary (7) Diabetes mellitus Diagnosis: Principal (8) Essential hypertension Diagnosis: Principal (9) Hiatal hernia Diagnosis: Secondary (10) Gastroesophageal reflux disease Diagnosis: Secondary (11) Chronic kidney disease (CKD) stage G3a/A3, moderately decreased glomerular filtration rate (GFR) between 45-59 mL/min/1.73 square meter and albuminuria creatinine ratio greater than 300 mg/g Diagnosis: Secondary Chief Complaint: Altered mental status, hypoglycemia Travel History International Travel<30 Days: No Contact w/Intl Traveler <30 Da: No Traveled to Known Affected Are: No History of Present Illness This is a 67-year-old female. Date of admission 12/13/2017. Past medical history includes elevated BMI, chronic asthma on chronic oxygen, atrial fibrillation/rate controlled, hypertension dyslipidemia. Today, patient presents to [facility] emergency department after being found unresponsive at the group home. She was just discharged from the hospital 12/10/2017 from [facility]. She is morbidly obese with multiple severe chronic illnesses and was both in respiratory distress and decreased responsiveness at the same time. She was noted to be hypoxic with saturations in the e 80s with nasal cannula. Was brought in on BiPAP. Accu-Chek was in the 30s when paramedics found her. Initial GCS was reported as 3. She received some D10 through a right arm PICC line but upon arrival staff felt that the PICC line was not working properly. Patient cannot provide any history or review of systems. She arrives critically ill Patient received D50 and a central line in the right internal jugular was placed by ED physician as no significant access was available. Chest x-ray revealed no acute cardiopulmonary findings. After being placed on BiPAP and receiving glucose patient's mentation is much improved and likely can be removed in the ICU. Less confused when evaluated in the ED. UA is positive. Previous history of Pseudomonas sensitive to aztreonam Review of Systems ROS Limitations: Altered Mental Status Past Family Social History Allergies: Coded Allergies: penicillin G (Unverified Allergy, Severe, 05/29/17) Past Medical History Chronic respiratory failure secondary to APOLONIA, OHS and bronchial asthma Atrial fibrillation rate controlled Hypertension Dyslipidemia Gastroesophageal reflux disease Elevated BMI greater than 50 Recurrent MRSA pneumonia Depression Constipation Past Surgical History JJ stent placement by urology Hiatal hernia surgery Appendectomy Percutaneous tracheostomy by Dr. Mullins since decannulated Reported Medications Active Metoprolol Tartrate 25 Mg Tab 12.5 Mg PO Q12HR 30 Days Vancomycin Inj (Vancomycin HCl) 500 Mg Inj 125 Mg PO QID 4 Days Hydrocodone-Acetaminophen 5-325 mg Tab 1 Tab PO Q6H PRN Xanax (Alprazolam) 1 Mg Tab 1 Mg PO BID PRN Lactinex (Lactobacillus Acidophilus) 1 Chew 1 Tab CHEW TID 10 Days Famotidine 20 Mg Tab 10 Mg PO BID Reported Zoloft (Sertraline HCl) 100 Mg Tab 100 Mg PO DAILY Xopenex Neb (Levalbuterol HCl) 1.25 Mg/3 Ml Neb 1.25 Mg NEB Q4HR Vitamin C (Ascorbic Acid) 500 Mg Capsule 500 Mg PO BID Potassium Chloride ER (Potassium Chloride) 20 Meq Tab 20 Meq PO DAILY Novolin R Inj (Insulin Human Regular) 1,000 Unit/10 Ml Vial 0 SQ DIRECTED Sliding Scale As Directed. One Daily Plus Minerals (Multivitamin with Minerals) 1 Each Tablet Levemir Inj (Insulin Detemir) 1,000 unit/ 10 ML Vial 40 Units SQ BID Do not mix with any other Insulin. Lasix (Furosemide) 40 Mg Tab 40 Mg PO DAILY Perforomist Neb (Formoterol Fumarate) 20 Mcg/2 Ml Neb 1 Nebule INH BID Diltiazem (Diltiazem HCl) 90 Mg Tab 90 Mg PO DAILY Budesonide Neb 0.5 Mg/2 Ml Neb 0.5 Mg NEB Q12HR NEB Zofran Odt (Ondansetron Odt) 4 Mg Tab 4 Mg SL Q6HR PRN Sennosides 8.6 Mg Tab 17.2 Mg PO BID Glucagen Hypokit Inj Kit (Glucagon (Rdna) Inj Kit) 1 Mg Kit 1 Mg IM ONCE PRN Flomax (Tamsulosin HCl) 0.4 Mg Cap 0.4 Mg PO HS Albuterol Neb (Albuterol Sulfate) 2.5 Mg/3 Ml Neb 2.5 Mg NEB Q4HR PRN While awake Acetylcysteine Liq/Neb (Acetylcysteine) 200 mg/ml Soln 4 Ml NEB Q8HR PRN Lyrica (Pregabalin) 75 Mg Cap 75 Mg PO DAILY Active Ordered Medications Reviewed in EMR reviewed in EMR Family History Father with heart disease, diabetes and emphysema. Mother with psychiatric issues Social History No documented tobacco, alcohol or illicit drug use Physical Exam Vital Signs Vital Signs Date Time Temp Pulse Resp B/P (MAP) Pulse Ox O2 Delivery O2 Flow Rate FiO2 12/13/17 12:15 100 23 129/60 (83) 98 BiPAP 50 12/13/17 12:00 102 21 135/78 (97) 99 BiPAP 50 12/13/17 11:30 100 17 136/103 (114) 100 BiPAP 50 12/13/17 11:00 98.4 96 19 113/67 (82) 100 BiPAP 50 12/13/17 10:24 94 50 12/13/17 10:05 116 20 214/124 (154) 99 50 12/13/17 10:05 BiPAP 50 Physical Exam GENERAL: 67-year-old female resting in bed currently on BiPAP SKIN: Warm and dry. HEAD: Atraumatic. Normocephalic. EYES: Pupils equal and round about 3 mm bilaterally and reactive. No scleral icterus. No injection or drainage. ENT: No nasal bleeding or discharge. Mucous membranes pink and moist. NECK: Trachea midline. No JVD. CARDIOVASCULAR: IRR. S1, S2. No S4. Without murmur RESPIRATORY: Diminished breath sounds throughout due to body habitus. No wheezing is appreciated. Breath sounds equal bilaterally. GASTROINTESTINAL: Abdomen soft, obese, nontender. Hypoactive bowel sounds are appreciated MUSCULOSKELETAL: Extremities with 2+ bilateral upper and lower extremity edema NEUROLOGICAL: Awake and alert to person place. No obvious cranial nerve deficits. Motor grossly within normal limits. Five out of 5 muscle strength in the arms and legs. 1-2 word answer speech. Laboratory Laboratory Tests Test 12/13/17 11:05 12/13/17 11:55 12/13/17 12:20 White Blood Count 5.4 Red Blood Count 3.27 Hemoglobin 9.5 Hematocrit 29.1 Mean Corpuscular Volume 89.1 Mean Corpuscular Hemoglobin 29.0 Mean Corpuscular Hemoglobin Concent 32.6 Red Cell Distribution Width 17.5 Platelet Count 246 Mean Platelet Volume 7.9 Neutrophils (%) (Auto) 55.1 Lymphocytes (%) (Auto) 19.2 Monocytes (%) (Auto) 12.8 Eosinophils (%) (Auto) 12.1 Basophils (%) (Auto) 0.8 Neutrophils # (Auto) 3.0 Lymphocytes # (Auto) 1.0 Monocytes # (Auto) 0.7 Eosinophils # (Auto) 0.7 Basophils # (Auto) 0.0 CBC Comment DIFF FINAL Differential Comment Blood Urea Nitrogen 15 Creatinine 1.60 Random Glucose 100 Calcium Level 8.4 Sodium Level 141 Potassium Level 3.5 Chloride Level 101 Carbon Dioxide Level 31.8 Anion Gap 8 Estimat Glomerular Filtration Rate 32 Blood Gas Puncture Site LT BRACHIAL Blood Gas Patient Temperature 98.6 Blood Gas HCO3 31 Blood Gas Base Excess 4.9 Blood Gas Oxygen Saturation 96 Arterial Blood pH 7.32 Arterial Blood Partial Pressure CO2 61 Arterial Blood Partial Pressure O2 105 Arterial Blood Oxygen Content 13.3 Arterial Blood Carboxyhemoglobin 1.8 Arterial Blood Methemoglobin 0.3 Blood Gas Hemoglobin 9.7 Oxygen Delivery Device BIPAP Blood Gas Ventilator Setting 16 IPAP/ 8 EPAP Blood Gas Inspired Oxygen 50 Urine Color YELLOW Urine Turbidity HAZY Urine pH 6.5 Urine Specific Moro 1.012 Urine Protein 100 Urine Glucose (UA) NEG Urine Ketones NEG Urine Occult Blood SMALL Urine Nitrite POS Urine Bilirubin NEG Urine Urobilinogen LESS THAN 2.0 Urine Leukocyte Esterase LARGE Urine RBC Urine WBC Urine WBC Clumps MANY Urine Bacteria MANY Urine Mucus FEW Urine Yeast with Hyphae MANY Microscopic Urinalysis Comment CATH-CULTURE IND Lactic Acid Level 1.1 Date/Time Source Procedure Growth Status 12/13/17 12:30 Blood Line Aerobic Blood Culture Pending Received 12/13/17 12:30 Blood Line Anaerobic Blood Culture Pending Received 12/13/17 12:20 Urine Catheterized Urine Urine Culture Pending Received Result Diagram: 12/13/17 1105 12/13/17 1105 Imaging Last Impressions Chest X-Ray 12/13/17 0000 Signed Impressions: Service Date/Time: December 11:36 - CONCLUSION: Adequate placement of right jugular central line. El Nuñez MD Septic Shock Reassessment Septic shock perfusion: reassessment completed Caprini VTE Risk Assessment Caprini VTE Risk Assessment: Mod/High Risk (score >= 2) Caprini Risk Assessment Model Point Value = 1 Point Value = 2 Point Value = 3 Point Value = 5 Age 41-60 Minor surgery BMI > 25 kg/m2 Swollen legs Varicose veins or History of unexplained or recurrent spontaneous Oral contraceptives or hormone replacement Sepsis (< 1 month) Serious lung disease, including pneumonia (< 1 month) Abnormal pulmonary function Acute myocardial infarction Congestive heart failure (< 1 month) History of inflammatory bowel disease Medical patient at bed rest Age 61-74 Arthroscopic surgery Major open surgery (> 45 min) Laparoscopic surgery (> 45 min) Malignancy Confined to bed (> 72 hours) Immobilizing plaster cast Central venous access Age >= 75 History of VTE Family history of VTE Factor V Leiden Prothrombin [id number] Lupus anticoagulant Anticardiolipin antibodies Elevated serum homocysteine Heparin-induced thrombocytopenia Other congenital or acquired thrombophilia Stroke (< 1 month) Elective arthroplasty Hip, pelvis, or leg fracture Acute spinal cord injury (< 1 month) Prophylaxis Regimen Total Risk Factor Score Risk Level Prophylaxis Regimen 0-1 Low Early ambulation 2 Moderate Order ONE of the following: *Sequential Compression Device (SCD) *Heparin 5000 units SQ BID 3-4 Higher Order ONE of the following medications: *Heparin 5000 units SQ TID *Enoxaparin/Lovenox 40 mg SQ daily (WT < 150 kg, CrCl > 30 mL/min) *Enoxaparin/Lovenox 30 mg SQ daily (WT < 150 kg, CrCl > 10-29 mL/min) *Enoxaparin/Lovenox 30 mg SQ BID (WT < 150 kg, CrCl > 30 mL/min) AND/OR *Sequential Compression Device (SCD) 5 or more Highest Order ONE of the following medications: *Heparin 5000 units SQ TID (Preferred with Epidurals) *Enoxaparin/Lovenox 40 mg SQ daily (WT < 150 kg, CrCl > 30 mL/min) *Enoxaparin/Lovenox 30 mg SQ daily (WT < 150 kg, CrCl > 10-29 mL/min) *Enoxaparin/Lovenox 30 mg SQ BID (WT < 150 kg, CrCl > 30 mL/min) AND *Sequential Compression Device (SCD) Assessment and Plan Assessment and Plan Neuro/Psych: Chronic benzodiazepine use Depression disorder NOS Acute toxic metabolic encephalopathy likely secondary to hypoglycemia/CO2 retention Diabetic neuropathy Chronic pain syndrome with chronic narcotic use Acetaminophen 650 mg p.o. every 6 hours as needed fever/pain 1 through 10 Holding alprazolam 1 mg p.o. twice daily as needed anxiety Holding scheduled hydrocodone/acetaminophen 5/321 tablet every 6 hours as needed pain Continue sertraline 100 mg p.o. daily for depression Continue pregabalin 75 mg p.o. daily for peripheral neuropathy CT brain pending at time of dictation CV: Atrial fibrillation/chronic Hypertension Continue metoprolol 25 mg p.o. every 12 hours\continue furosemide 40 mg p.o. daily\continue diltiazem 90 mg p.o. daily 2D echocardiogram 12/02 - normal left ventricular size. Wall thickness is measured at the upper limits of normal. The left ventricular systolic function is low normal with an estimated jection fraction in the range of 50-55%. The left atrial size is mildly dilated. The right atrial size is moderately dilated. There is trace tricuspid valve regurgitation. Resp: Acute hypoxic respiratory failure APOLONIA/OHS History recurrent MRSA pneumonia Currently on BiPAP 15/540%. Wean the nasal cannula as tolerated Currently in albuterol/ipratropium aerosols every 6 hours with albuterol aerosols every 2 hours dyspnea Continue budesonide 0.5 mg/2 mL nebulizers every 12 hours Holding levalbuterol HCL 1.25 mg 3 mL nebs every 4 hours Holding formoterol fumarate 20 mg/2 mL nebs twice daily Chest x-ray revealed no acute cardiopulmonary findings GI: BMI greater than 50 Gastroesophageal reflux disease ADA diet Pantoprazole for GI prophylaxis. Patient is on famotidine 20 mg p.o. daily at home Docusate sodium/senna 1 tablet twice daily for bowel regimen. Patient is on senna 8.6 mg twice daily at home Continue ondansetron 4 mg every 6 hours as needed nausea : Solitario catheter to maintain patency with recent pyelonephritis/GJ placement. Outpatient stent removal by urology Endo: Diabetes mellitus ACute hypoglycemia Holding insulin detemir 40 units twice daily Sliding scale insulin with Novulin R with Accu-Cheks to maintain euglycemia before meals at bedtime no 300 Renal: Chronic kidney disease stage IIIa Creatinine currently 1.6 Avoid nephrotoxic drugs Monitor urine output Accurate I's and O's Heme: Normocytic anemia Chronic Rivaroxaban use Currently stable hemoglobin. No indication for transfusion of blood products at this time. Continue with rivaroxaban 10 mg daily ID: Urinary tract infection History of MRSA History of C. difficile Currently in vancomycin, aztreonam and metronidazole Currently on oral vancomycin 4 additional days for C. difficile Blood cultures 2,'s urine ordered MSK: Elevated BMI Weight loss encouraged FEN: Replace electrolytes as clinically indicated Access -Utilize peripheral IV. Central and if indicated Prophylaxis -GI -pantoprazole -DVT -SCD/rivaroxaban Level 3 admission Code Status Full code Discussed Condition With Patient. Dr. Willis. Care plan discussed all questions answered. Problem Qualifiers (1) Afib: Qualified Codes: I48.2 - Chronic atrial fibrillation (2) Peripheral neuropathy: Qualified Codes: G62.9 - Polyneuropathy, unspecified (3) Diabetes mellitus: Qualified Codes: E10.8 - Type 1 diabetes mellitus with unspecified complications Randall Chávez MD Dec 13, 2017 13:35
--- NOTE | 2017-12-13 13:49 | RADRPT ---
EXAM DATE/TIME: 12/13/2017 13:30 [facility] COMPARISON: CT BRAIN W/O CONTRAST, December 06, 2017, 21:57. INDICATIONS : Altered mental status RADIATION DOSE: 66.34 CTDIvol (mGy) ; Patient body habitus MEDICAL HISTORY : Cardiovascular disease. Hypertension. Asthma SURGICAL HISTORY : Hysterectomy. ENCOUNTER: Initial ACUITY: 1 day PAIN SCALE: 3/10 LOCATION: Left cranial TECHNIQUE: Multiple contiguous axial images were obtained of the head. Using automated exposure control and adj ustment of the mA and/or kV according to patient size, radiation dose was kept as low as reasonably a chievable to obtain optimal diagnostic quality images. DICOM format image data is available electro nically for review and comparison. FINDINGS: CEREBRUM: The ventricles are normal for age. No evidence of midline shift, mass lesion, hemorrhage or acute in farction. No extra-axial fluid collections are seen. POSTERIOR FOSSA: The cerebellum and brainstem are intact. The 4th ventricle is midline. The cerebellopontine angle i s unremarkable. EXTRACRANIAL: The visualized portion of the orbits is intact. SKULL: The calvaria is intact. No evidence of skull fracture. CONCLUSION: Normal examination. Domingo Calderon MD on December 13, 2017 at 13:47 Board Certified Radiologist. This report was verified electronically.
[2017-12-13] MEDS: SODIUM CHLOR 0.9% 1000 ML INJ 1,000 ML IV SCH (14:38)
[2017-12-13] MEDS: DEXTROSE 5% IN WATE 1000ML INJ 1,000 ML IV SCH (14:38)
[2017-12-13] MEDS: RESP: ALBUTEROL 2.5 MG/IPRATROPIUM 0.5 MG NEB (SCH) INH ×2 (15:40→21:14)
--- NOTE | 2017-12-13 15:53 | RADRPT ---
EXAM DATE/TIME: 12/13/2017 13:43 [facility] COMPARISON: No previous studies available for comparison. INDICATIONS : Edema. MEDICAL HISTORY : Cardiovascular disease. Hypertension. Hernia, hiatal. SURGICAL HISTORY : Appendectomy. ENCOUNTER: Subsequent ACUITY: 4 - 6 days PAIN SCORE: Non-responsive LOCATION: Bilateral upper extremity. FINDINGS: RIGHT UPPER EXTREMITY: There is spontaneous flow documented in the brachial, basilic, axillary, and subclavian veins. There is thrombus within the right cephalic vein extending to the antecubital region. LEFT UPPER EXTREMITY: There is spontaneous flow documented in the brachial, basilic, cephalic, axillary, and subclavian vei ns. The vessels are compressible and augmentation response is documented. No filling defects are se en. The flow is phasic with respiration. Direction of flow in the jugular vein is caudal. CONCLUSION: 1. No deep venous thrombosis in the left upper extremity. 2. Superficial thrombosis of the right cephalic vein. El Nuñez MD on December 13, 2017 at 15:51 Board Certified Radiologist. This report was verified electronically.
--- NOTE | 2017-12-13 15:57 | RADRPT ---
EXAM DATE/TIME: 12/13/2017 14:26 [facility] COMPARISON: No previous studies available for comparison. INDICATIONS : Edema. MEDICAL HISTORY : Cardiovascular disease. Hypertension. Hernia, hiatal. SURGICAL HISTORY : Appendectomy. ENCOUNTER: Subsequent ACUITY: 4 - 6 days PAIN SCORE: Non-responsive LOCATION: Bilateral legs. TECHNIQUE: Venous ultrasound of the left and right leg was performed from the inguinal ligament to the proximal calf. Real-time, color Doppler and spectral tracing, compression and augmentation techniques were us ed. FINDINGS: RIGHT LEG: There is normal compressibility of the deep venous system from the inguinal region to the proximal ca lf. No echogenic clot is seen in the lumen of the common femoral, femoral, popliteal, and posterior tibial veins. There is a normal response of the venous system to proximal and distal augmentation an d respiration. LEFT LEG: There is normal compressibility of the deep venous system from the inguinal region to the proximal ca lf. No echogenic clot is seen in the lumen of the common femoral, femoral, popliteal, and posterior tibial veins. There is a normal response of the venous system to proximal and distal augmentation an d respiration. CONCLUSION: Normal examination. Domingo Calderon MD on December 13, 2017 at 15:56 Board Certified Radiologist. This report was verified electronically.
[2017-12-13] MEDS: AZTREONAM INJ 1,000 MG in SODIUM CHLORIDE 0.9% INJ 100 ML IV SCH ×2 (16:27→22:55)
[2017-12-13] MEDS: metroNIDAZOLE 500 MG INJ 100 ML IV SCH ×2 (16:27→22:55)
[2017-12-13] MEDS ORDERED: hydrALAZINE HCL 20 MG/ML VIAL IV PUSH PRN (17:00)
[2017-12-13] MEDS: INSULIN NovoLIN REGULAR SUPPLEMENTAL SCALE SQ SCH ×2 (17:00→21:00)
[2017-12-13] MEDS ORDERED: LABETALOL HCL 100 MG/20 ML VIAL IV PUSH PRN (17:00)
[2017-12-13] MEDS ORDERED: VANCOMYCIN INJ 2,500 MG in SODIUM CHLORID 0.9% 500 ML INJ 500 ML IV ONE (17:00)
[2017-12-13] MEDS: ARTIFICIAL TEARS OPTH SOLN 15 ML BTL EACH EYE SCH (18:00)
[2017-12-13] MEDS ORDERED: NITROGLYCERIN 2% OINT 1 GM PACKET TOPICAL PRN (18:00)
[2017-12-13] MEDS: LACTOBACILLUS ACIDOPHILUS TAB PO SCH (18:07)
[2017-12-13] MEDS: VANCOMYCIN 25 MG/ML SOLN 100 ML BOTTLE PO SCH ×2 (18:35→21:00)
[2017-12-13] MEDS: METOPROLOL TARTRATE 25 MG TAB PO SCH (21:00)
[2017-12-13] MEDS: RESP: BUDESONIDE 0.5 MG/2 ML NEB NEB SCH (21:14)
[2017-12-13] MEDS: ASCORBIC ACID 500 MG TAB PO SCH (22:55)
[2017-12-13] MEDS: DOCUSATE SODIUM 50 MG/SENNA 8.6 MG TAB PO SCH (22:55)
[2017-12-13] MEDS: SODIUM CHLORIDE 0.9% FLUSH 10 ML FLUSH IV FLUSH SCH (22:56)
[2017-12-13] MEDS: NYSTATIN 100,000 U/GM PWD 15 GM BTL TOPICAL SCH (22:56)
[2017-12-14] VITALS (21 sets, daily range): BP systolic 93–115; BP diastolic 51–55; PULSE 76–116; RESP 13–22; TEMP 97.8–99; O2SAT 93–100
[2017-12-14] MEDS: RESP: ALBUTEROL 2.5 MG/IPRATROPIUM 0.5 MG NEB (SCH) INH ×4 (02:54→22:29)
[2017-12-14 03:49] LABS: AUTOMATED NEUTROPHIL # 3.4 TH/MM3 (1.8-7.7); BASOPHIL # 0.1 TH/MM3 (0-0.2); BASOPHIL % 0.9 % (0.0-2.0); EOSINOPHIL # 0.9 TH/MM3 (0-0.4); EOSINOPHIL % 14.8 % (0.0-4.0); HEMATOCRIT 27.4 % (35.0-46.0); HEMOGLOBIN 8.9 GM/DL (11.6-15.3); LYMPH % 15.7 % (9.0-44.0); LYMPHOCYTE # 0.9 TH/MM3 (1.0-4.8); MEAN CELL VOLUME 89.5 FL (80.0-100.0); MEAN CORPUSCULAR HEMOGLOBIN 28.9 PG (27.0-34.0); MEAN CORPUSCULAR HGB CONC 32.3 % (32.0-36.0); MEAN PLATELET VOLUME 7.6 FL (7.0-11.0); MONO % 11.5 % (0.0-8.0); MONOCYTE # 0.7 TH/MM3 (0-0.9); NEUT % 57.1 % (16.0-70.0); PLATELET COUNT 237 TH/MM3 (150-450); RED BLOOD COUNT 3.06 MIL/MM3 (4.00-5.30); RED CELL DISTRIBUTION WIDTH 17.4 % (11.6-17.2); WHITE BLOOD COUNT 5.9 TH/MM3 (4.0-11.0)
[2017-12-14] MEDS: CHLORHEXIDINE GLUCONATE 2 % 1 PACK (2 CLOTHS) TOP SCH (04:00)
[2017-12-14 04:17] LABS: ALBUMIN 1.8 GM/DL (3.4-5.0); ALKALINE PHOSPHATASE 115 U/L (45-117); ALT (GPT) 23 U/L (10-53); AST (GOT) 17 U/L (15-37); BICARBONATE 32.1 MEQ/L (21.0-32.0); BLOOD UREA NITROGEN 15 MG/DL (7-18); CALCIUM 7.5 MG/DL (8.5-10.1); CHLORIDE 103 MEQ/L (98-107); CREATININE 1.73 MG/DL (0.50-1.00); GLOMERULAR FILTRATION RATE 29 ML/MIN (>89); GLUCOSE,RANDOM 90 MG/DL (74-106); MAGNESIUM 1.1 MG/DL (1.5-2.5); PHOSPHORUS 5.5 MG/DL (2.5-4.9); SODIUM (NA) 142 MEQ/L (136-145); TOTAL BILIRUBIN ADULT 0.3 MG/DL (0.2-1.0)
[2017-12-14] MEDS: metroNIDAZOLE 500 MG INJ 100 ML IV SCH ×4 (04:59→22:41)
[2017-12-14] MEDS: SODIUM CHLOR 0.9% 1000 ML INJ 1,000 ML IV SCH ×2 (04:59→15:40)
[2017-12-14] MEDS: DEXTROSE 5% IN WATE 1000ML INJ 1,000 ML IV SCH (04:59)
[2017-12-14] MEDS: AZTREONAM INJ 1,000 MG in SODIUM CHLORIDE 0.9% INJ 100 ML IV SCH ×3 (05:05→22:43)
[2017-12-14] MEDS: DILTIAZEM HCL 90 MG TAB PO SCH (07:58)
[2017-12-14] MEDS: SERTRALINE HCL 100 MG TAB PO SCH (07:58)
[2017-12-14] MEDS: LACTOBACILLUS ACIDOPHILUS TAB PO SCH ×3 (07:58→17:51)
[2017-12-14] MEDS: POTASSIUM CHLORIDE 20 MEQ CONTROLLED RELEASE TAB PO SCH (07:59)
[2017-12-14] MEDS: METOPROLOL TARTRATE 25 MG TAB PO SCH ×2 (07:59→21:00)
[2017-12-14] MEDS: FUROSEMIDE 40 MG TAB PO SCH (07:59)
[2017-12-14] MEDS: ASCORBIC ACID 500 MG TAB PO SCH ×2 (07:59→22:41)
[2017-12-14] MEDS: PANTOPRAZOLE SOD 40 MG DELAYED RELEASE TAB PO SCH (07:59)
[2017-12-14] MEDS: DOCUSATE SODIUM 50 MG/SENNA 8.6 MG TAB PO SCH ×2 (07:59→22:41)
[2017-12-14] MEDS: PREGABALIN 75 MG CAP PO SCH (07:59)
[2017-12-14] MEDS: VANCOMYCIN 25 MG/ML SOLN 100 ML BOTTLE PO SCH ×4 (07:59→22:45)
[2017-12-14] MEDS: INSULIN NovoLIN REGULAR SUPPLEMENTAL SCALE SQ SCH ×4 (08:00→21:00)
[2017-12-14] MEDS: NYSTATIN 100,000 U/GM PWD 15 GM BTL TOPICAL SCH ×2 (08:00→22:41)
[2017-12-14] MEDS: SODIUM CHLORIDE 0.9% FLUSH 10 ML FLUSH IV FLUSH SCH ×2 (09:00→21:00)
[2017-12-14] MEDS: ARTIFICIAL TEARS OPTH SOLN 15 ML BTL EACH EYE SCH ×3 (09:00→17:51)
[2017-12-14] MEDS: RESP: BUDESONIDE 0.5 MG/2 ML NEB NEB SCH ×2 (09:16→22:29)
[2017-12-14] MEDS: RIVAROXABAN 10 MG TAB PO SCH (10:39)
--- NOTE | 2017-12-14 12:06 | EKG ---
Date Performed: 12/13/2017 Time Performed: 11:48:38 PTAGE: 67 years EKG: ATRIAL FIBRILLATION WITH RAPID VENTRICULAR RESPONSE POSSIBLE RIGHT VENTRICULAR CONDUCTION D ELAY NONSPECIFIC ST & T-WAVE ABNORMALITY ABNORMAL ECG PREVIOUS TRACING : 11/16/2017 06.03 Baseline artifact. When compared to prior EKG, the patient now appears to be in atrial fibrillation. DOCTOR: Jhoana Lane Interpretating Date/Time 12/14/2017 12:04:26
--- NOTE | 2017-12-14 14:27 | HHI.CCPN ---
Subjective Remarks/Hospital Course This is a 67-year-old female. Date of admission 12/13/2017. Past medical history includes elevated BMI, chronic asthma on chronic oxygen, atrial fibrillation/rate controlled, hypertension dyslipidemia. Today, patient presents to [facility] emergency department [facility] She was just discharged from the hospital 12/10/2017 from [facility]. She is morbidly obese with multiple severe chronic illnesses and was both in respiratory distress and decreased responsiveness at the same time. She was noted to be hypoxic with saturations in the e 80s with nasal cannula. Was brought in on BiPAP. Accu-Chek was in the 30s when paramedics found her. Initial GCS was reported as 3. She received some D10 through a right arm PICC line but upon arrival staff felt that the PICC line was not working properly. Patient cannot provide any history or review of systems. She arrives critically ill Patient received D50 and a central line in the right internal jugular was placed by ED physician as no significant access was available. Chest x-ray revealed no acute cardiopulmonary findings. After being placed on BiPAP and receiving glucose patient's mentation is much improved and likely can be removed in the ICU. Less confused when evaluated in the ED. UA is positive. Previous history of Pseudomonas sensitive to aztreonam Subjective /: Currently resting in bed in no acute distress on 3 L nasal cannula. Overnight on BiPAP/Venturi mask currently on 3 L nasal cannula. Difficult to arouse but once arousable does follow commands in all 4 extremities but weakly. Blood sugar 135. ABG currently pending Objective Vital Signs Date Time Temp Pulse Resp B/P (MAP) Pulse Ox O2 Delivery O2 Flow Rate FiO2 12/14/17 07:09 97 Nasal Cannula 3.00 12/14/17 06:00 110 12/14/17 04:28 40 12/14/17 04:00 99.0 15 115/51 (72) Intake and Output 12/14/17 12/14/17 12/14/17 07:59 15:59 23:59 Intake Total 2200 ml Output Total 300 ml Balance 1900 ml Result Diagram: 12/14/17 0337 12/14/17 0337 Other Results Microbiology Date/Time Source Procedure Growth Status 12/13/17 12:30 Blood Line Aerobic Blood Culture - Preliminary NO GROWTH IN 1 DAY Resulted 12/13/17 12:30 Blood Line Anaerobic Blood Culture - Preliminary NO GROWTH IN 1 DAY Resulted 12/13/17 12:20 Urine Catheterized Urine Legionella Antigen - Final PRESUMPTIVE NEGATIVE FOR LEGIONELLA P... Complete 12/13/17 12:20 Urine Catheterized Urine Streptococcus pneumoniae Antigen (M - Final PRESUMPTIVE NEGATIVE FOR STREPTOCOCCU... Complete Imaging Last Impressions Upper Extremity Ultrasound 12/13/17 0000 Signed Impressions: Service Date/Time: December 13:43 - CONCLUSION: 1. No deep venous thrombosis in the left upper extremity. 2. Superficial thrombosis of the right cephalic vein. El Nuñez MD Lower Extremity Ultrasound 12/13/17 0000 Signed Impressions: Service Date/Time: December 14:26 - CONCLUSION: Normal examination. Domingo Calderon MD Head CT 12/13/17 0000 Signed Impressions: Service Date/Time: December 13:30 - CONCLUSION: Normal examination. Domingo Calderon MD Chest X-Ray 12/13/17 0000 Signed Impressions: Service Date/Time: December 11:36 - CONCLUSION: Adequate placement of right jugular central line. El Nuñez MD Objective Remarks GENERAL: 67-year-old female resting in bed currently nasal cannula in no acute distress SKIN: Warm and dry. HEAD: Atraumatic. Normocephalic. EYES: Pupils equal and round about 3 mm bilaterally and reactive. No scleral icterus. No injection or drainage. ENT: No nasal bleeding or discharge. Mucous membranes pink and moist. NECK: Trachea midline. No JVD. CARDIOVASCULAR: IRR. S1, S2. No S4. Without murmur RESPIRATORY: Diminished breath sounds throughout due to body habitus. No wheezing is appreciated. Breath sounds equal bilaterally. GASTROINTESTINAL: Abdomen soft, obese, nontender. Hypoactive bowel sounds are appreciated MUSCULOSKELETAL: Extremities with 2+ bilateral upper and lower extremity edema NEUROLOGICAL: Awake and alert to person place. No obvious cranial nerve deficits. Motor grossly within normal limits. Five out of 5 muscle strength in the arms and legs. 1-2 word answer speech. Urinary Catheter: No Assessment to: Continue Vascular Central Line Catheter: Yes Assessment to: Continue Date of Insertion: Dec 13, 2017 Line: Central Venous Catheter Side: Right Location: Internal, Jugular A/P Assessment and Plan Neuro/Psych: Chronic benzodiazepine use Depression disorder NOS Acute toxic metabolic encephalopathy likely secondary to hypoglycemia/CO2 retention Diabetic neuropathy Chronic pain syndrome with chronic narcotic use Acetaminophen 650 mg p.o. every 6 hours as needed fever/pain 1 through 5 Morphine sulfate 2 mg IV every 3 hours as needed pain 6-10 Holding alprazolam 1 mg p.o. twice daily as needed anxiety Holding hydrocodone/acetaminophen 5/321 tablet every 6 hours as needed pain Continue sertraline 100 mg p.o. daily for depression Continue pregabalin 75 mg p.o. daily for peripheral neuropathy CT brain 12/13 revealed no acute intracranial findings CV: Atrial fibrillation/chronic Hypertension Continue metoprolol 25 mg p.o. every 12 hours\continue furosemide 40 mg p.o. daily\continue diltiazem 90 mg p.o. daily 2D echocardiogram 12/02 - normal left ventricular size. Wall thickness is measured at the upper limits of normal. The left ventricular systolic function is low normal with an estimated jection fraction in the range of 50-55%. The left atrial size is mildly dilated. The right atrial size is moderately dilated. There is trace tricuspid valve regurgitation. Resp: Acute hypoxic respiratory failure APOLONIA/OHS History recurrent MRSA pneumonia Currently on BiPAP 15/540%. Wean the nasal cannula as tolerated Currently in albuterol/ipratropium aerosols every 6 hours with albuterol aerosols every 2 hours dyspnea Continue budesonide 0.5 mg/2 mL nebulizers every 12 hours Holding levalbuterol HCL 1.25 mg 3 mL nebs every 4 hours Holding formoterol fumarate 20 mg/2 mL nebs twice daily Chest x-ray will be ordered for 33 a.m. GI: BMI greater than 50 Gastroesophageal reflux disease ADA diet Pantoprazole for GI prophylaxis. Patient is on famotidine 20 mg p.o. daily at home Docusate sodium/senna 1 tablet twice daily for bowel regimen. Patient is on senna 8.6 mg twice daily at home Continue ondansetron 4 mg every 6 hours as needed nausea : Solitario catheter to maintain patency with recent pyelonephritis/GJ placement. Outpatient stent removal by urology Endo: Diabetes mellitus Acute hypoglycemia Holding insulin detemir 40 units twice daily Sliding scale insulin with Novulin R with Accu-Cheks to maintain euglycemia before meals at bedtime Renal: Chronic kidney disease stage IIIa Creatinine currently 1.8 Avoid nephrotoxic drugs Monitor urine output Accurate I's and O's Heme: Normocytic anemia Chronic Rivaroxaban use Right cephalic vein superficial thrombus Currently stable hemoglobin. No indication for transfusion of blood products at this time. Continue with rivaroxaban 10 mg daily ID: Urinary tract infection/gram-negative eugenio History of MRSA History of C. difficile Currently in vancomycin, aztreonam and metronidazole Currently on oral vancomycin 4 additional days for C. difficile Pertinent cultures Blood cultures 2, 3 no growth to date Urine Legionella pneumococcal antigens negative Urine culture 3 gram-negative eugenio MSK: Elevated BMI Weight loss encouraged FEN: Hypomagnesia Hyperphosphatemia Replace electrolytes as clinically indicated Receiving 4 g mag sulfate IV 1 now. Recheck in a.m. Start calcium acetate 667 mg p.o. 3 times daily. Recheck phosphorus in a.m. Access -Right IJ CVL day #2 placed the ED 12/13 Prophylaxis -GI -pantoprazole -DVT -SCD/rivaroxaban Level 2 follow-up Randall Chávez MD Dec 14, 2017 14:27
[2017-12-14] MEDS ORDERED: SODIUM CHLOR 0.9% 1000 ML INJ 1,000 ML IV ONE (14:45)
[2017-12-14] MEDS ORDERED: MORPHINE SULFATE 2 MG/ML INJ IM PRN (14:45)
[2017-12-14] MEDS: ALBUMIN 5% INJ 500 ML IV SCH (15:43)
[2017-12-14] MEDS: MAGNESIUM SULFATE 1 GM PREMIX 100 ML IV SCH ×4 (15:43→18:49)
[2017-12-14] MEDS: CALCIUM ACETATE 667 MG CAP PO SCH (17:51)
[2017-12-15] VITALS (17 sets, daily range): BP systolic 85–108; BP diastolic 48–64; PULSE 89–110; RESP 9–17; TEMP 97.8–98.5; O2SAT 97–100
[2017-12-15] MEDS: CHLORHEXIDINE GLUCONATE 2 % 1 PACK (2 CLOTHS) TOP SCH (04:00)
[2017-12-15] MEDS: RESP: ALBUTEROL 2.5 MG/IPRATROPIUM 0.5 MG NEB (SCH) INH ×4 (04:11→20:04)
[2017-12-15] MEDS: SODIUM CHLOR 0.9% 1000 ML INJ 1,000 ML IV SCH ×2 (04:42→13:01)
[2017-12-15] MEDS: ALBUMIN 5% INJ 500 ML IV SCH ×2 (04:42→14:24)
[2017-12-15] MEDS: metroNIDAZOLE 500 MG INJ 100 ML IV SCH ×4 (04:43→20:16)
[2017-12-15] MEDS: AZTREONAM INJ 1,000 MG in SODIUM CHLORIDE 0.9% INJ 100 ML IV SCH ×3 (04:43→22:00)
[2017-12-15 05:25] LABS: AUTOMATED NEUTROPHIL # 2.5 TH/MM3 (1.8-7.7); BASOPHIL % 0.6 % (0.0-2.0); EOSINOPHIL # 0.6 TH/MM3 (0-0.4); EOSINOPHIL % 12.8 % (0.0-4.0); HEMATOCRIT 24.7 % (35.0-46.0); LYMPH % 22.5 % (9.0-44.0); LYMPHOCYTE # 1.1 TH/MM3 (1.0-4.8); MEAN CELL VOLUME 88.7 FL (80.0-100.0); MEAN CORPUSCULAR HEMOGLOBIN 28.7 PG (27.0-34.0); MEAN CORPUSCULAR HGB CONC 32.4 % (32.0-36.0); MEAN PLATELET VOLUME 7.9 FL (7.0-11.0); MONO % 13.2 % (0.0-8.0); MONOCYTE # 0.6 TH/MM3 (0-0.9); NEUT % 50.9 % (16.0-70.0); PLATELET COUNT 255 TH/MM3 (150-450); RED BLOOD COUNT 2.79 MIL/MM3 (4.00-5.30); RED CELL DISTRIBUTION WIDTH 17.9 % (11.6-17.2); WHITE BLOOD COUNT 4.9 TH/MM3 (4.0-11.0)
--- NOTE | 2017-12-15 05:27 | RADRPT ---
EXAM DATE/TIME: 12/15/2017 03:58 [facility] COMPARISON: CHEST SINGLE AP, December 13, 2017, 11:36. INDICATIONS : Shortness of breath, possible pulmonary disease. MEDICAL HISTORY : Hypertension. Diabetes mellitus type II. SURGICAL HISTORY : None. ENCOUNTER: Subsequent ACUITY: 3 weeks PAIN SCORE: 0/10 LOCATION: Bilateral chest FINDINGS: Persistent opacity in the left mid and lower lung with loss of delineation of the entire left hemidia phragm, similar to prior most the right lung is clear. Central line tip projects over the distal sup erior vena cava. CONCLUSION: Persistent left lower lung consolidation. Dorian Vasquez MD on December 15, 2017 at 5:25 Board Certified Radiologist. This report was verified electronically.
[2017-12-15 06:05] LABS: ALBUMIN 2.1 GM/DL (3.4-5.0); BICARBONATE 25.8 MEQ/L (21.0-32.0); CALCIUM 7.3 MG/DL (8.5-10.1); CALCIUM-PROTEIN CORRECTED 8.7 MG/DL (8.5-10.1); CREATININE 1.88 MG/DL (0.50-1.00); MAGNESIUM 1.7 MG/DL (1.5-2.5); PHOSPHORUS 4.6 MG/DL (2.5-4.9); RANDOM VANCOMYCIN 30.9 COMMENT; TOTAL BILIRUBIN ADULT 0.2 MG/DL (0.2-1.0); TOTAL PROTEIN 4.6 GM/DL (6.4-8.2)
[2017-12-15] MEDS: INSULIN NovoLIN REGULAR SUPPLEMENTAL SCALE SQ SCH ×4 (08:00→21:00)
[2017-12-15] MEDS: SODIUM CHLORIDE 0.9% FLUSH 10 ML FLUSH IV FLUSH SCH ×2 (08:22→20:14)
[2017-12-15] MEDS: POTASSIUM CHLORIDE 20 MEQ CONTROLLED RELEASE TAB PO SCH (08:23)
[2017-12-15] MEDS: CALCIUM ACETATE 667 MG CAP PO SCH ×3 (08:23→17:30)
[2017-12-15] MEDS: PANTOPRAZOLE SOD 40 MG DELAYED RELEASE TAB PO SCH (08:23)
[2017-12-15] MEDS: ASCORBIC ACID 500 MG TAB PO SCH ×2 (08:23→20:15)
[2017-12-15] MEDS: RIVAROXABAN 10 MG TAB PO SCH (08:23)
[2017-12-15] MEDS: VANCOMYCIN 25 MG/ML SOLN 100 ML BOTTLE PO SCH ×4 (08:24→22:01)
[2017-12-15] MEDS: LACTOBACILLUS ACIDOPHILUS TAB PO SCH ×3 (08:24→17:30)
[2017-12-15] MEDS: SERTRALINE HCL 100 MG TAB PO SCH (08:24)
[2017-12-15] MEDS: FUROSEMIDE 40 MG TAB PO SCH (08:24)
[2017-12-15] MEDS: NYSTATIN 100,000 U/GM PWD 15 GM BTL TOPICAL SCH ×2 (08:24→21:00)
[2017-12-15] MEDS: PREGABALIN 75 MG CAP PO SCH (08:24)
[2017-12-15] MEDS: METOPROLOL TARTRATE 25 MG TAB PO SCH ×3 (08:30→20:15)
[2017-12-15] MEDS: ARTIFICIAL TEARS OPTH SOLN 15 ML BTL EACH EYE SCH ×3 (09:00→17:32)
[2017-12-15] MEDS: DILTIAZEM HCL 90 MG TAB PO SCH (09:00)
[2017-12-15] MEDS: DOCUSATE SODIUM 50 MG/SENNA 8.6 MG TAB PO SCH ×2 (09:00→20:15)
[2017-12-15] MEDS ORDERED: PILL SPLITTER OTHER PRN (10:15)
[2017-12-15] MEDS ORDERED: TERBUTALINE INJ 1 MG/ML AMP SQ PRN (10:15)
[2017-12-15] MEDS: RESP: BUDESONIDE 0.5 MG/2 ML NEB NEB SCH ×2 (11:47→20:04)
[2017-12-15] MEDS: DILTIAZEM HCL 30 MG TAB PO SCH ×3 (12:00→23:54)
[2017-12-15] MEDS: PHENYLEPHRINE INJ 160 MG in DEXTROSE 5% IN WATE 500 ML INJ 484 ML IV PRN ×2 (13:09)
[2017-12-15] MEDS ORDERED: ALBUMIN 5% INJ 500 ML IV ONE (13:30)
[2017-12-15] MEDS ORDERED: SODIUM CHLOR 0.9% 1000 ML INJ 1,000 ML IV ONE (13:30)
[2017-12-15] MEDS: MAGNESIUM SULFATE 1 GM PREMIX 100 ML IV SCH ×2 (14:18→16:10)
--- NOTE | 2017-12-15 18:34 | HHI.CCPN ---
Subjective Remarks/Hospital Course This is a 67-year-old female. Date of admission 12/13/2017. Past medical history includes elevated BMI, chronic asthma on chronic oxygen, atrial fibrillation/rate controlled, hypertension dyslipidemia. Today, patient presents to [facility] emergency department [facility]. She was just discharged from the hospital 12/10/2017 from [facility]. She is morbidly obese with multiple severe chronic illnesses and was both in respiratory distress and decreased responsiveness at the same time. She was noted to be hypoxic with saturations in the e 80s with nasal cannula. Was brought in on BiPAP. Accu-Chek was in the 30s when paramedics found her. Initial GCS was reported as 3. She received some D10 through a right arm PICC line but upon arrival staff felt that the PICC line was not working properly. Patient cannot provide any history or review of systems. She arrives critically ill Patient received D50 and a central line in the right internal jugular was placed by ED physician as no significant access was available. Chest x-ray revealed no acute cardiopulmonary findings. After being placed on BiPAP and receiving glucose patient's mentation is much improved and likely can be removed in the ICU. Less confused when evaluated in the ED. UA is positive. Previous history of Pseudomonas sensitive to aztreonam 3: Currently resting in bed in no acute distress on 3 L nasal cannula. Overnight on BiPAP/Venturi mask currently on 3 L nasal cannula. Difficult to arouse but once arousable does follow commands in all 4 extremities but weakly. Blood sugar 135. ABG currently pending Subjective 12/15: Afebrile. Resting in bed on nasal cannula. Arousable and following commands. Ill-definition due to hypo-tension. I will place arterial line secondary to body habitus. She does not appear septic. She is more awake and alert and attentive today as compared to yesterday. Objective Vital Signs Date Time Temp Pulse Resp B/P (MAP) Pulse Ox O2 Delivery O2 Flow Rate FiO2 12/15/17 18:00 99 12/15/17 16:00 98.4 13 105/58 (74) 99 12/15/17 11:47 Nasal Cannula 3.00 12/15/17 04:12 40 Intake and Output 12/15/17 12/15/17 12/16/17 08:00 16:00 00:00 Intake Total 1700 ml Output Total 150 ml Balance 1550 ml Result Diagram: 12/15/17 0440 12/15/17 0440 Other Results Microbiology Date/Time Source Procedure Growth Status 12/13/17 12:30 Blood Line Aerobic Blood Culture - Preliminary NO GROWTH IN 2 DAYS Resulted 12/13/17 12:30 Blood Line Anaerobic Blood Culture - Preliminary NO GROWTH IN 2 DAYS Resulted 12/13/17 12:20 Urine Catheterized Urine Legionella Antigen - Final PRESUMPTIVE NEGATIVE FOR LEGIONELLA P... Complete 12/13/17 12:20 Urine Catheterized Urine Streptococcus pneumoniae Antigen (M - Final PRESUMPTIVE NEGATIVE FOR STREPTOCOCCU... Complete Imaging Last Impressions Chest X-Ray 12/15/17 0600 Signed Impressions: Service Date/Time: Friday, December 15, 2017 03:58 - CONCLUSION: Persistent left lower lung consolidation. Dorian Vasquez MD Upper Extremity Ultrasound 12/13/17 0000 Signed Impressions: Service Date/Time: December 13:43 - CONCLUSION: 1. No deep venous thrombosis in the left upper extremity. 2. Superficial thrombosis of the right cephalic vein. El Nuñez MD Lower Extremity Ultrasound 12/13/17 0000 Signed Impressions: Service Date/Time: December 14:26 - CONCLUSION: Normal examination. Domingo Calderon MD Head CT 12/13/17 0000 Signed Impressions: Service Date/Time: December 13:30 - CONCLUSION: Normal examination. Domingo Calderon MD Objective Remarks GENERAL: 67-year-old female resting in bed currently nasal cannula in no acute distress SKIN: Warm and dry. HEAD: Atraumatic. Normocephalic. EYES: Pupils equal and round about 3 mm bilaterally and reactive. No scleral icterus. No injection or drainage. ENT: No nasal bleeding or discharge. Mucous membranes pink and moist. NECK: Trachea midline. No JVD. CARDIOVASCULAR: IRR. Distant heart tones. S1, S2. No S4. Without murmur RESPIRATORY: Diminished breath sounds throughout due to body habitus. No wheezing is appreciated. Breath sounds equal bilaterally. GASTROINTESTINAL: Abdomen soft, obese, nontender. Hypoactive bowel sounds are appreciated MUSCULOSKELETAL: Extremities with 2+ bilateral upper and lower extremity edema NEUROLOGICAL: Awake and alert to person place. No obvious cranial nerve deficits. Motor grossly within normal limits. Five out of 5 muscle strength in the arms and legs. More verbose today 12/15 Urinary Catheter: No Assessment to: Continue Vascular Central Line Catheter: Yes Assessment to: Continue Date of Insertion: Dec 13, 2017 Line: Central Venous Catheter Side: Right Location: Internal, Jugular A/P Assessment and Plan Neuro/Psych: Chronic benzodiazepine use Depression disorder NOS Acute toxic metabolic encephalopathy likely secondary to hypoglycemia/CO2 retention Diabetic neuropathy Chronic pain syndrome with chronic narcotic use Acetaminophen 650 mg p.o. every 6 hours as needed fever/pain 1 through 5 Morphine sulfate 2 mg IV every 3 hours as needed pain 6-10 Continuing alprazolam 1 mg p.o. twice daily as needed anxiety Holding hydrocodone/acetaminophen 5/321 tablet every 6 hours as needed pain Continue sertraline 100 mg p.o. daily for depression Continue pregabalin 75 mg p.o. daily for peripheral neuropathy CT brain 12/13 revealed no acute intracranial findings CV: Atrial fibrillation/chronic Hypertension Currently on low-dose phenylephrine at 20 mcg/min to maintain mean artery pressure gradient equal to 65. Will wean off. Home blood pressure medications include metoprolol 12.5 mg p.o. every 12 hours\ furosemide 40 mg p.o. daily\ diltiazem 90 mg p.o. daily adjusted to 15 mg every 6 hours 2D echocardiogram 12/02 - normal left ventricular size. Wall thickness is measured at the upper limits of normal. The left ventricular systolic function is low normal with an estimated jection fraction in the range of 50-55%. The left atrial size is mildly dilated. The right atrial size is moderately dilated. There is trace tricuspid valve regurgitation. Resp: Acute hypoxic respiratory failure APOLONIA/OHS History recurrent MRSA pneumonia 3 L nasal cannula for saturations greater than or equal to 90% As needed BiPAP Currently in albuterol/ipratropium aerosols every 6 hours with albuterol aerosols every 2 hours dyspnea Continue budesonide 0.5 mg/2 mL nebulizers every 12 hours Holding levalbuterol HCL 1.25 mg 3 mL nebs every 4 hours Holding formoterol fumarate 20 mg/2 mL nebs twice daily Chest x-ray will be ordered for 3/4 a.m.. Persistent left lower lobe infiltrate on 12/15 x-ray GI: BMI greater than 50 Gastroesophageal reflux disease 2200 KCal ADA diet Pantoprazole for GI prophylaxis. Patient is on famotidine 20 mg p.o. daily at home Docusate sodium/senna 1 tablet twice daily for bowel regimen. Patient is on senna 8.6 mg twice daily at home Continue ondansetron 4 mg every 6 hours as needed nausea : Solitario catheter to maintain patency with recent pyelonephritis/GJ placement. Outpatient J stent removal by urology placed during last hospitalization 12/02 Endo: Diabetes mellitus Acute hypoglycemia Holding insulin detemir 40 units twice daily Sliding scale insulin with Novulin R with Accu-Cheks to maintain euglycemia before meals at bedtime. No sliding scale insulin past 24 hours Renal: Chronic kidney disease stage IIIa Creatinine currently 1.88 Avoid nephrotoxic drugs Monitor urine output Accurate I's and O's Heme: Normocytic anemia Chronic Rivaroxaban use Right cephalic vein superficial thrombus Currently stable hemoglobin. No indication for transfusion of blood products at this time. Continue with rivaroxaban 10 mg daily ID: Urinary tract infection/gram-negative eugenio History of MRSA History of C. difficile Currently in vancomycin, aztreonam and metronidazole Currently on oral vancomycin 4 additional days for C. difficile Pertinent cultures Blood cultures 2, 3 no growth to date Urine Legionella pneumococcal antigens negative Urine culture 12/13 gram-negative eugenio MSK: Elevated BMI Weight loss encouraged FEN: Replace electrolytes as clinically indicated Receiving 2 g mag sulfate IV 1 now. Recheck in a.m. Start calcium acetate 667 mg p.o. 3 times daily for 2 days. Recheck phosphorus in a.m. Access -Right IJ CVL day #3 placed the ED 12/13 Prophylaxis -GI -pantoprazole -DVT -SCD/rivaroxaban Level 2 follow-up Randall Chávez MD Dec 15, 2017 18:34
[2017-12-15] MEDS: MUPIROCIN 2% OINT 1 APPLIC/GM SYR EACH NARE SCH (22:01)
[2017-12-16] VITALS (16 sets, daily range): BP systolic 90–144; BP diastolic 43–62; PULSE 89–105; RESP 11–17; TEMP 97.6–98.6; O2SAT 99–100
[2017-12-16] MEDS: VASOPRESSIN INJ 40 UNITS in DEXTROSE 5% IN WATER 100ML INJ 98 ML IV SCH ×4 (00:45→16:41)
[2017-12-16] MEDS: CHLORHEXIDINE GLUCONATE 2 % 1 PACK (2 CLOTHS) TOP SCH (04:00)
[2017-12-16] MEDS: RESP: ALBUTEROL 2.5 MG/IPRATROPIUM 0.5 MG NEB (SCH) INH ×4 (04:15→21:26)
[2017-12-16] MEDS: metroNIDAZOLE 500 MG INJ 100 ML IV SCH ×4 (04:41→20:25)
[2017-12-16] MEDS: ALBUMIN 5% INJ 500 ML IV SCH (04:41)
[2017-12-16] MEDS: DILTIAZEM HCL 30 MG TAB PO SCH ×4 (04:48→23:39)
[2017-12-16 05:35] LABS: BASOPHIL % 0.6 % (0.0-2.0); EOSINOPHIL # 0.4 TH/MM3 (0-0.4); EOSINOPHIL % 8.1 % (0.0-4.0); HEMATOCRIT 24.8 % (35.0-46.0); HEMOGLOBIN 7.9 GM/DL (11.6-15.3); LYMPH % 16.8 % (9.0-44.0); LYMPHOCYTE # 0.8 TH/MM3 (1.0-4.8); MEAN CELL VOLUME 89.8 FL (80.0-100.0); MEAN CORPUSCULAR HEMOGLOBIN 28.8 PG (27.0-34.0); MEAN PLATELET VOLUME 7.9 FL (7.0-11.0); MONO % 11.9 % (0.0-8.0); MONOCYTE # 0.6 TH/MM3 (0-0.9); NEUT % 62.6 % (16.0-70.0); PLATELET COUNT 256 TH/MM3 (150-450); RED BLOOD COUNT 2.76 MIL/MM3 (4.00-5.30); RED CELL DISTRIBUTION WIDTH 17.8 % (11.6-17.2); WHITE BLOOD COUNT 4.7 TH/MM3 (4.0-11.0)
--- NOTE | 2017-12-16 05:39 | RADRPT ---
EXAM DATE/TIME: 12/16/2017 02:40 [facility] COMPARISON: CHEST SINGLE AP, December 15, 2017, 3:58. INDICATIONS : Shortness of breath, possible pulmonary disease. MEDICAL HISTORY : Hypertension. Diabetes mellitus type II. SURGICAL HISTORY : None. ENCOUNTER: Subsequent ACUITY: 3 weeks PAIN SCORE: 0/10 LOCATION: Bilateral chest FINDINGS: Right central line tip remains projected over the distal superior vena cava. Persistent consolidatio n left mid and lower lung with loss of delineation of the entire left hemidiaphragm. The right lung is clear. Large body habitus. CONCLUSION: Stable left lower lung consolidation. Dorian Vasquez MD on December 16, 2017 at 5:38 Board Certified Radiologist. This report was verified electronically.
[2017-12-16 06:08] LABS: ALBUMIN 2.4 GM/DL (3.4-5.0); BICARBONATE 27.2 MEQ/L (21.0-32.0); CALCIUM 7.1 MG/DL (8.5-10.1); CALCIUM-PROTEIN CORRECTED 8.3 MG/DL (8.5-10.1); CREATININE 1.75 MG/DL (0.50-1.00); PHOSPHORUS 4.3 MG/DL (2.5-4.9); TOTAL BILIRUBIN ADULT 0.3 MG/DL (0.2-1.0); TOTAL PROTEIN 4.9 GM/DL (6.4-8.2)
[2017-12-16] MEDS: AZTREONAM INJ 1,000 MG in SODIUM CHLORIDE 0.9% INJ 100 ML IV SCH ×3 (06:45→23:39)
[2017-12-16] MEDS: RESP: BUDESONIDE 0.5 MG/2 ML NEB NEB SCH ×2 (07:14→21:26)
[2017-12-16] MEDS: INSULIN NovoLIN REGULAR SUPPLEMENTAL SCALE SQ SCH ×4 (08:00→20:24)
[2017-12-16] MEDS: DOCUSATE SODIUM 50 MG/SENNA 8.6 MG TAB PO SCH ×2 (09:00→20:24)
[2017-12-16] MEDS: MUPIROCIN 2% OINT 1 APPLIC/GM SYR EACH NARE SCH ×2 (09:27→20:23)
[2017-12-16] MEDS: ARTIFICIAL TEARS OPTH SOLN 15 ML BTL EACH EYE SCH ×3 (09:27→17:39)
[2017-12-16] MEDS: FUROSEMIDE 40 MG TAB PO SCH (09:28)
[2017-12-16] MEDS: ASCORBIC ACID 500 MG TAB PO SCH ×2 (09:28→20:24)
[2017-12-16] MEDS: PREGABALIN 75 MG CAP PO SCH (09:28)
[2017-12-16] MEDS: LACTOBACILLUS ACIDOPHILUS TAB PO SCH ×3 (09:28→17:33)
[2017-12-16] MEDS: POTASSIUM CHLORIDE 20 MEQ CONTROLLED RELEASE TAB PO SCH (09:28)
[2017-12-16] MEDS: SERTRALINE HCL 100 MG TAB PO SCH (09:28)
[2017-12-16] MEDS: RIVAROXABAN 10 MG TAB PO SCH (09:29)
[2017-12-16] MEDS: CALCIUM ACETATE 667 MG CAP PO SCH ×2 (09:29→12:42)
[2017-12-16] MEDS: NYSTATIN 100,000 U/GM PWD 15 GM BTL TOPICAL SCH ×2 (09:29→20:24)
[2017-12-16] MEDS: PANTOPRAZOLE SOD 40 MG DELAYED RELEASE TAB PO SCH (09:29)
[2017-12-16] MEDS: VANCOMYCIN 25 MG/ML SOLN 100 ML BOTTLE PO SCH ×4 (09:29→20:24)
[2017-12-16] MEDS: METOPROLOL TARTRATE 25 MG TAB PO SCH ×2 (09:29→20:24)
[2017-12-16] MEDS: SODIUM CHLORIDE 0.9% FLUSH 10 ML FLUSH IV FLUSH SCH ×2 (09:29→20:23)
[2017-12-16] MEDS: PHENYLEPHRINE INJ 160 MG in DEXTROSE 5% IN WATE 500 ML INJ 484 ML IV PRN ×2 (16:41)
--- NOTE | 2017-12-16 17:54 | HHI.CCPN ---
Subjective Remarks/Hospital Course This is a 67-year-old female. Date of admission 12/13/2017. Past medical history includes elevated BMI, chronic asthma on chronic oxygen, atrial fibrillation/rate controlled, hypertension dyslipidemia. Today, patient presents to [facility] emergency department after being found unresponsive at the snf. She was just discharged from the hospital 12/10/2017 from [facility]. She is morbidly obese with multiple severe chronic illnesses and was both in respiratory distress and decreased responsiveness at the same time. She was noted to be hypoxic with saturations in the e 80s with nasal cannula. Was brought in on BiPAP. Accu-Chek was in the 30s when paramedics found her. Initial GCS was reported as 3. She received some D10 through a right arm PICC line but upon arrival staff felt that the PICC line was not working properly. Patient cannot provide any history or review of systems. She arrives critically ill Patient received D50 and a central line in the right internal jugular was placed by ED physician as no significant access was available. Chest x-ray revealed no acute cardiopulmonary findings. After being placed on BiPAP and receiving glucose patient's mentation is much improved and likely can be removed in the ICU. Less confused when evaluated in the ED. UA is positive. Previous history of Pseudomonas sensitive to aztreonam 3/: Currently resting in bed in no acute distress on 3 L nasal cannula. Overnight on BiPAP/Venturi mask currently on 3 L nasal cannula. Difficult to arouse but once arousable does follow commands in all 4 extremities but weakly. Blood sugar 135. ABG currently pending Subjective 12/15: Afebrile. Resting in bed on nasal cannula. Arousable and following commands. Ill-definition due to hypo-tension. I will place arterial line secondary to body habitus. She does not appear septic. She is more awake and alert and attentive today as compared to yesterday. 12/16: Alert and oriented 3, spotting to questions appropriately. Arterial line inability to play secondary to body habitus. Patient remained on phenylephrine during the night but now map remains less than 60 will resume phenylephrine infusion, and initiate Midodrine Objective Vital Signs Date Time Temp Pulse Resp B/P (MAP) Pulse Ox O2 Delivery O2 Flow Rate FiO2 12/16/17 16:41 89 94/49 12/16/17 16:00 98.0 12 99 3/4/18 09:30 Nasal Cannula 3.00 12/16/17 08:10 35 Intake and Output 12/16/17 12/16/17 12/17/17 08:00 16:00 00:00 Intake Total 200 ml 200 ml 100 ml Output Total 850 ml Balance -650 ml 200 ml 100 ml Result Diagram: 12/16/17 0430 12/16/17 0430 Imaging Last Impressions Chest X-Ray 12/16/17599 Signed Impressions: Service Date/Time: Saturday, December 16, 2017 02:40 - CONCLUSION: Stable left lower lung consolidation. Dorian Vasquez MD Upper Extremity Ultrasound 12/13/17 0000 Signed Impressions: Service Date/Time: December 13:43 - CONCLUSION: 1. No deep venous thrombosis in the left upper extremity. 2. Superficial thrombosis of the right cephalic vein. El Nuñez MD Lower Extremity Ultrasound 12/13/17 Signed Impressions: Service Date/Time: December 14:26 - CONCLUSION: Normal examination. Domingo Calderon MD Head CT 12/13/17 Signed Impressions: Service Date/Time: December 13:30 - CONCLUSION: Normal examination. Domingo Calderon MD Last Impressions Chest X-Ray 12/15/17599 Signed Impressions: Service Date/Time: Friday, December 15, 2017 03:58 - CONCLUSION: Persistent left lower lung consolidation. Dorian Vasquez MD Upper Extremity Ultrasound 12/13/17 Signed Impressions: Service Date/Time: December 13:43 - CONCLUSION: 1. No deep venous thrombosis in the left upper extremity. 2. Superficial thrombosis of the right cephalic vein. El Nuñez MD Lower Extremity Ultrasound 12/13/17 0000 Signed Impressions: Service Date/Time: December 14:26 - CONCLUSION: Normal examination. Domingo Calderon MD Head CT 12/13/17 0000 Signed Impressions: Service Date/Time: December 13:30 - CONCLUSION: Normal examination. Domingo Calderon MD Objective Remarks GENERAL: 67-year-old super morbidly obese female resting in bed currently nasal cannula in no acute distress SKIN: Warm and dry. HEAD: Atraumatic. Normocephalic. EYES: Pupils equal and round about 3 mm bilaterally and reactive. No scleral icterus. No injection or drainage. ENT: No nasal bleeding or discharge. Mucous membranes pink and moist. NECK: Trachea midline. No JVD. CARDIOVASCULAR: IRR. Distant heart tones. S1, S2. No S4. Without murmur RESPIRATORY: Diminished breath sounds throughout due to body habitus. No wheezing is appreciated. Breath sounds equal bilaterally. GASTROINTESTINAL: Abdomen soft, obese, nontender. Hypoactive bowel sounds are appreciated MUSCULOSKELETAL: Extremities with 2+ bilateral upper and lower extremity edema NEUROLOGICAL: Awake and alert to person place. No obvious cranial nerve deficits. Motor grossly within normal limits. 5/5 muscle strength in the arms and legs. More verbose today 12/15 Date of Insertion: Dec 13, 2017 Line: Central Venous Catheter Side: Right Location: Internal, Jugular A/P Assessment and Plan Neuro/Psych: Chronic benzodiazepine use Depression disorder NOS Acute toxic metabolic encephalopathy likely secondary to hypoglycemia/CO2 retention Diabetic neuropathy Chronic pain syndrome with chronic narcotic use Acetaminophen 650 mg p.o. every 6 hours as needed fever/pain 1 through 5 Morphine sulfate 2 mg IV every 3 hours as needed pain 6-10 Continuing alprazolam 1 mg p.o. twice daily as needed anxiety Holding hydrocodone/acetaminophen 5/321 tablet every 6 hours as needed pain Continue sertraline 100 mg p.o. daily for depression Continue pregabalin 75 mg p.o. daily for peripheral neuropathy CT brain 12/13 revealed no acute intracranial findings CV: Atrial fibrillation/chronic Hypertension Currently on low-dose phenylephrine at 20 mcg/min to maintain mean artery pressure gradient equal to 65. Will wean off. Consideration of midodrine Home blood pressure medications include metoprolol 12.5 mg p.o. every 12 hours\ furosemide 40 mg p.o. daily\ diltiazem 90 mg p.o. daily adjusted to 15 mg every 6 hours 2D echocardiogram 12/02 - normal left ventricular size. Wall thickness is measured at the upper limits of normal. The left ventricular systolic function is low normal with an estimated jection fraction in the range of 50-55%. The left atrial size is mildly dilated. The right atrial size is moderately dilated. There is trace tricuspid valve regurgitation. Resp: Acute hypoxic respiratory failure APOLONIA/OHS History recurrent MRSA pneumonia 3 L nasal cannula for saturations greater than or equal to 90% As needed BiPAP Currently in albuterol/ipratropium aerosols every 6 hours with albuterol aerosols every 2 hours dyspnea Continue budesonide 0.5 mg/2 mL nebulizers every 12 hours Holding levalbuterol HCL 1.25 mg 3 mL nebs every 4 hours Holding formoterol fumarate 20 mg/2 mL nebs twice daily Chest x-ray will be ordered for 12/16 a.m.. Persistent left lower lobe infiltrate on 12/15 x-ray GI: BMI greater than 50 Gastroesophageal reflux disease 2200 KCal ADA diet Pantoprazole for GI prophylaxis. Patient is on famotidine 20 mg p.o. daily at home Docusate sodium/senna 1 tablet twice daily for bowel regimen. Patient is on senna 8.6 mg twice daily at home Continue ondansetron 4 mg every 6 hours as needed nausea : Solitario catheter to maintain patency with recent pyelonephritis/GJ placement. Outpatient J stent removal by urology placed during last hospitalization 12/02 Endo: Diabetes mellitus Acute hypoglycemia Holding insulin detemir 40 units twice daily Sliding scale insulin with Novulin R with Accu-Cheks to maintain euglycemia before meals at bedtime. No sliding scale insulin past 24 hours Renal: Chronic kidney disease stage IIIa Creatinine currently 1.88 Avoid nephrotoxic drugs Monitor urine output Accurate I's and O's Heme: Normocytic anemia Chronic Rivaroxaban use Right cephalic vein superficial thrombus Currently stable hemoglobin. No indication for transfusion of blood products at this time. Continue with rivaroxaban 10 mg daily ID: Urinary tract infection/gram-negative eugenio History of MRSA History of C. difficile Currently in vancomycin, aztreonam and metronidazole Currently on oral vancomycin 4 additional days for C. difficile Pertinent cultures Blood cultures 2, 3 no growth to date Urine Legionella pneumococcal antigens negative Urine culture 12/13 gram-negative eugenio MSK: Elevated BMI Weight loss encouraged FEN: Replace electrolytes as clinically indicated Receiving 2 g mag sulfate IV 1 now. Recheck in a.m. Start calcium acetate 667 mg p.o. 3 times daily for 2 days. Recheck phosphorus in a.m. Access -Right IJ CVL day #4 placed the ED 12/13 Prophylaxis -GI -pantoprazole -DVT -SCD/rivaroxaban Level 2 follow-up Physician Amelia Delgadillo MD Dec 16, 2017 17:54
[2017-12-17] VITALS (17 sets, daily range): BP systolic 107–177; BP diastolic 51–106; PULSE 88–121; RESP 4–23; TEMP 97.2–98.7; O2SAT 97–100
[2017-12-17] MEDS: CHLORHEXIDINE GLUCONATE 2 % 1 PACK (2 CLOTHS) TOP SCH (04:00)
[2017-12-17] MEDS: RESP: ALBUTEROL 2.5 MG/IPRATROPIUM 0.5 MG NEB (SCH) INH ×5 (04:03→19:42)
[2017-12-17] MEDS: DILTIAZEM HCL 30 MG TAB PO SCH ×3 (04:21→16:35)
[2017-12-17] MEDS: metroNIDAZOLE 500 MG INJ 100 ML IV SCH ×4 (04:21→21:04)
--- NOTE | 2017-12-17 05:39 | RADRPT ---
EXAM DATE/TIME: 12/17/2017 03:40 [place] COMPARISON: CHEST SINGLE AP, December 16, 2017, 2:40. INDICATIONS : Shortness of breath, possible pulmonary. MEDICAL HISTORY : Hypertension. Diabetes mellitus type II. SURGICAL HISTORY : None. ENCOUNTER: Subsequent ACUITY: 3 weeks PAIN SCORE: 0/10 LOCATION: Bilateral chest FINDINGS: Portable AP view of the chest demonstrates a normal-sized cardiac silhouette. Right IJ line remains p resent but distal aspect is not adequately visualized. There is volume loss in the left hemithorax wi th persistent left basilar opacity causing obscuration of the left hemidiaphragm. No pneumothorax is identified. EKG lines overlie the patient. CONCLUSION: 1. Persistent left lung volume loss with opacity at the left lung base. This could represent atelecta sis or airspace consolidation. 2. Right IJ line remains present but distal tip is not adequately visualized on this exam. Perry Kessler MD on December 17, 2017 at 5:35 Board Certified Radiologist. This report was verified electronically.
[2017-12-17 05:40] LABS: HEMATOCRIT 25.8 % (35.0-46.0); HEMOGLOBIN 8.2 GM/DL (11.6-15.3); MEAN CELL VOLUME 90.4 FL (80.0-100.0); MEAN CORPUSCULAR HEMOGLOBIN 28.8 PG (27.0-34.0); MEAN CORPUSCULAR HGB CONC 31.9 % (32.0-36.0); MEAN PLATELET VOLUME 8.2 FL (7.0-11.0); PLATELET COUNT 267 TH/MM3 (150-450); RED BLOOD COUNT 2.86 MIL/MM3 (4.00-5.30); RED CELL DISTRIBUTION WIDTH 18.2 % (11.6-17.2); WHITE BLOOD COUNT 4.1 TH/MM3 (4.0-11.0)
[2017-12-17] MEDS: AZTREONAM INJ 1,000 MG in SODIUM CHLORIDE 0.9% INJ 100 ML IV SCH ×3 (06:03→22:26)
[2017-12-17 06:11] LABS: BICARBONATE 26.5 MEQ/L (21.0-32.0); CALCIUM 7.7 MG/DL (8.5-10.1); CREATININE 1.82 MG/DL (0.50-1.00)
[2017-12-17 06:12] LABS: RANDOM VANCOMYCIN 21.7 COMMENT
[2017-12-17] MEDS: INSULIN NovoLIN REGULAR SUPPLEMENTAL SCALE SQ SCH ×4 (08:00→21:00)
[2017-12-17] MEDS: RESP: BUDESONIDE 0.5 MG/2 ML NEB NEB SCH ×2 (08:01→19:42)
[2017-12-17] MEDS: SERTRALINE HCL 100 MG TAB PO SCH (08:17)
[2017-12-17] MEDS: MUPIROCIN 2% OINT 1 APPLIC/GM SYR EACH NARE SCH ×2 (08:17→21:02)
[2017-12-17] MEDS: NYSTATIN 100,000 U/GM PWD 15 GM BTL TOPICAL SCH ×2 (08:17→21:04)
[2017-12-17] MEDS: ASCORBIC ACID 500 MG TAB PO SCH ×2 (08:17→21:03)
[2017-12-17] MEDS: LACTOBACILLUS ACIDOPHILUS TAB PO SCH ×4 (08:18→21:03)
[2017-12-17] MEDS: POTASSIUM CHLORIDE 20 MEQ CONTROLLED RELEASE TAB PO SCH (08:18)
[2017-12-17] MEDS: VANCOMYCIN 25 MG/ML SOLN 100 ML BOTTLE PO SCH ×4 (08:18→21:03)
[2017-12-17] MEDS: PREGABALIN 75 MG CAP PO SCH (08:18)
[2017-12-17] MEDS: FUROSEMIDE 40 MG TAB PO SCH (08:18)
[2017-12-17] MEDS: RIVAROXABAN 10 MG TAB PO SCH (08:18)
[2017-12-17] MEDS: PANTOPRAZOLE SOD 40 MG DELAYED RELEASE TAB PO SCH (08:19)
[2017-12-17] MEDS: DOCUSATE SODIUM 50 MG/SENNA 8.6 MG TAB PO SCH ×2 (08:19→21:03)
[2017-12-17] MEDS: ARTIFICIAL TEARS OPTH SOLN 15 ML BTL EACH EYE SCH (08:19)
[2017-12-17] MEDS: SODIUM CHLORIDE 0.9% FLUSH 10 ML FLUSH IV FLUSH SCH ×2 (08:19→21:02)
[2017-12-17] MEDS: METOPROLOL TARTRATE 25 MG TAB PO SCH ×2 (08:19→21:02)
--- NOTE | 2017-12-17 09:50 | HHI.CCPN ---
Subjective Remarks/Hospital Course This is a 67-year-old female. Date of admission 12/13/2017. Past medical history includes elevated BMI, chronic asthma on chronic oxygen, atrial fibrillation/rate controlled, hypertension dyslipidemia. Today, patient presents to [facility] emergency department after being found unresponsive at the long term. She was just discharged from the hospital 12/10/2017 from [facility]. She is morbidly obese with multiple severe chronic illnesses and was both in respiratory distress and decreased responsiveness at the same time. She was noted to be hypoxic with saturations in the e 80s with nasal cannula. Was brought in on BiPAP. Accu-Chek was in the 30s when paramedics found her. Initial GCS was reported as 3. She received some D10 through a right arm PICC line but upon arrival staff felt that the PICC line was not working properly. Patient cannot provide any history or review of systems. She arrives critically ill Patient received D50 and a central line in the right internal jugular was placed by ED physician as no significant access was available. Chest x-ray revealed no acute cardiopulmonary findings. After being placed on BiPAP and receiving glucose patient's mentation is much improved and likely can be removed in the ICU. Less confused when evaluated in the ED. UA is positive. Previous history of Pseudomonas sensitive to aztreonam 3/: Currently resting in bed in no acute distress on 3 L nasal cannula. Overnight on BiPAP/Venturi mask currently on 3 L nasal cannula. Difficult to arouse but once arousable does follow commands in all 4 extremities but weakly. Blood sugar 135. ABG currently pending Subjective 12/15: Afebrile. Resting in bed on nasal cannula. Arousable and following commands. Ill-definition due to hypo-tension. I will place arterial line secondary to body habitus. She does not appear septic. She is more awake and alert and attentive today as compared to yesterday. 3: Alert and oriented 3, spotting to questions appropriately. Arterial line inability to play secondary to body habitus. Patient remained on phenylephrine during the night but now map remains less than 60 will resume phenylephrine infusion, and initiate Midodrine. 5: Hemodynamically stable. Phenylephrine infusion off since last night. MAP 80's. A chin alert and oriented, tolerating diet/breakfast. Objective Vital Signs Date Time Temp Pulse Resp B/P (MAP) Pulse Ox O2 Delivery O2 Flow Rate FiO2 12/17/17 08:04 100 Nasal Cannula 3.00 12/17/17 06:00 101 12/17/17 04:08 30 12/17/17 04:00 97.2 13 177/60 (99) Intake and Output 12/17/17 12/17/17 12/18/17 08:00 16:00 00:00 Intake Total 440 ml Output Total 201 ml Balance 239 ml Result Diagram: 12/17/17 0355 12/17/17 0355 Imaging Last Impressions Chest X-Ray 12/17/17599 Signed Impressions: Service Date/Time: Sunday, December 17, 2017 03:40 - CONCLUSION: 1. Persistent left lung volume loss with opacity at the left lung base. This could represent atelectasis or airspace consolidation. 2. Right IJ line remains present but distal tip is not adequately visualized on this exam. Perry Kessler MD Upper Extremity Ultrasound 12/13/17 0000 Signed Impressions: Service Date/Time: December 13:43 - CONCLUSION: 1. No deep venous thrombosis in the left upper extremity. 2. Superficial thrombosis of the right cephalic vein. El Nuñez MD Lower Extremity Ultrasound 12/13/17 Signed Impressions: Service Date/Time: December 14:26 - CONCLUSION: Normal examination. Domingo Calderon MD Head CT 12/13/17 Signed Impressions: Service Date/Time: December 13:30 - CONCLUSION: Normal examination. Domingo Calderon MD Last Impressions Chest X-Ray 12/16/17599 Signed Impressions: Service Date/Time: Saturday, December 16, 2017 02:40 - CONCLUSION: Stable left lower lung consolidation. Dorian Vasquez MD Upper Extremity Ultrasound 12/13/17 0000 Signed Impressions: Service Date/Time: December 13:43 - CONCLUSION: 1. No deep venous thrombosis in the left upper extremity. 2. Superficial thrombosis of the right cephalic vein. El Nuñez MD Lower Extremity Ultrasound 12/13/17 0000 Signed Impressions: Service Date/Time: December 14:26 - CONCLUSION: Normal examination. Domingo Calderon MD Head CT 12/13/17 0000 Signed Impressions: Service Date/Time: December 13:30 - CONCLUSION: Normal examination. Domingo Calderon MD Last Impressions Chest X-Ray 12/15/17 0600 Signed Impressions: Service Date/Time: Friday, December 15, 2017 03:58 - CONCLUSION: Persistent left lower lung consolidation. Dorian Vasquez MD Upper Extremity Ultrasound 12/13/17 0000 Signed Impressions: Service Date/Time: December 13:43 - CONCLUSION: 1. No deep venous thrombosis in the left upper extremity. 2. Superficial thrombosis of the right cephalic vein. El Nuñez MD Lower Extremity Ultrasound 12/13/17 0000 Signed Impressions: Service Date/Time: December 14:26 - CONCLUSION: Normal examination. Domingo Calderon MD Head CT 12/13/17 0000 Signed Impressions: Service Date/Time: December 13:30 - CONCLUSION: Normal examination. Domingo Calderon MD Objective Remarks GENERAL: 67-year-old super morbidly obese female resting in bed currently nasal cannula in no acute distress, tolerating breakfast SKIN: Warm and dry. HEAD: Atraumatic. Normocephalic. EYES: Pupils equal and round about 3 mm bilaterally and reactive. No scleral icterus. No injection or drainage. ENT: No nasal bleeding or discharge. Mucous membranes pink and moist. NECK: Trachea midline. No JVD. CARDIOVASCULAR: IRR. Distant heart tones. S1, S2. No S4. Without murmur RESPIRATORY: Diminished breath sounds throughout due to body habitus. No wheezing is appreciated. Breath sounds equal bilaterally. GASTROINTESTINAL: Abdomen soft, obese, nontender. Hypoactive bowel sounds are appreciated MUSCULOSKELETAL: Extremities with 2+ bilateral upper and lower extremity edema NEUROLOGICAL: Awake and alert to person place. No obvious cranial nerve deficits. Motor grossly within normal limits. 5/5 muscle strength in the arms and legs. More verbose today 12/15 Date of Insertion: Dec 13, 2017 Line: Central Venous Catheter Side: Right Location: Internal, Jugular A/P Assessment and Plan Neuro/Psych: Chronic benzodiazepine use Depression disorder NOS Acute toxic metabolic encephalopathy likely secondary to hypoglycemia/CO2 retention Diabetic neuropathy Chronic pain syndrome with chronic narcotic use Acetaminophen 650 mg p.o. every 6 hours as needed fever/pain 1 through 5 12/17 Morphine sulfate 2 mg IV every 3 hours as needed pain 6-10- discontinued Continuing alprazolam 1 mg p.o. twice daily as needed anxiety Holding hydrocodone/acetaminophen 5/321 tablet every 6 hours as needed pain Continue sertraline 100 mg p.o. daily for depression Continue pregabalin 75 mg p.o. daily for peripheral neuropathy CT brain 12/13 revealed no acute intracranial findings CV: Atrial fibrillation/chronic Hypertension Currently on low-dose phenylephrine discontinued 12/16. continue to monitor Home blood pressure medications include metoprolol 12.5 mg p.o. every 12 hours\ furosemide 40 mg p.o. daily\ diltiazem 90 mg p.o. daily adjusted to 15 mg every 6 hours 2D echocardiogram 12/02 - normal left ventricular size. Wall thickness is measured at the upper limits of normal. The left ventricular systolic function is low normal with an estimated ejection fraction in the range of 50-55%. The left atrial size is mildly dilated. The right atrial size is moderately dilated. There is trace tricuspid valve regurgitation. Resp: Acute hypoxic respiratory failure APOLONIA/OHS History recurrent MRSA pneumonia 3 L nasal cannula for saturations greater than or equal to 90% As needed BiPAP Currently in albuterol/ipratropium aerosols every 6 hours with albuterol aerosols every 2 hours dyspnea Continue budesonide 0.5 mg/2 mL nebulizers every 12 hours Holding levalbuterol HCL 1.25 mg 3 mL nebs every 4 hours Holding formoterol fumarate 20 mg/2 mL nebs twice daily F/U CXR GI: BMI greater than 50 Gastroesophageal reflux disease 2200 KCal ADA diet Pantoprazole for GI prophylaxis. Patient is on famotidine 20 mg p.o. daily at home Docusate sodium/senna 1 tablet twice daily for bowel regimen. Patient is on senna 8.6 mg twice daily at home Continue ondansetron 4 mg every 6 hours as needed nausea : Solitario catheter to maintain patency with recent pyelonephritis/GJ placement. Outpatient J stent removal by urology placed during last hospitalization 12/02 Endo: Diabetes mellitus Acute hypoglycemia Holding insulin detemir 40 units twice daily Sliding scale insulin with Novulin R with Accu-Cheks to maintain euglycemia before meals at bedtime. No sliding scale insulin past 24 hours Renal: Chronic kidney disease stage IIIa Creatinine currently 1.88 Avoid nephrotoxic drugs Monitor urine output Accurate I's and O's Heme: Normocytic anemia Chronic Rivaroxaban use Right cephalic vein superficial thrombus Currently stable hemoglobin. No indication for transfusion of blood products at this time. Continue with rivaroxaban 10 mg daily ID: Urinary tract infection/gram-negative eugenio History of MRSA History of C. difficile Currently in vancomycin, aztreonam and metronidazole Currently on oral vancomycin 4 additional days for C. difficile Pertinent cultures Blood cultures 2, 3/ no growth to date Urine Legionella pneumococcal antigens negative Urine culture 3 Klebsiella MSK: Elevated BMI Weight loss encouraged FEN: Replace electrolytes as clinically indicated Receiving 2 g mag sulfate IV 1 now. Recheck in a.m. Start calcium acetate 667 mg p.o. 3 times daily for 2 days. Recheck phosphorus in a.m. Access -Right IJ CVL day #5 placed the ED 3/ Prophylaxis -GI -pantoprazole -DVT -SCD/rivaroxaban Level 2 follow-up D/W [employer] at bedside (Sabrina) Physician Amelia Delgadillo MD Dec 17, 2017 09:50
[2017-12-18] VITALS (17 sets, daily range): BP systolic 107–165; BP diastolic 53–129; PULSE 103–122; RESP 13–25; TEMP 97.5–98.5; O2SAT 99–100
[2017-12-18] MEDS: CHLORHEXIDINE GLUCONATE 2 % 1 PACK (2 CLOTHS) TOP SCH (03:48)
[2017-12-18] MEDS: metroNIDAZOLE 500 MG INJ 100 ML IV SCH ×4 (03:48→21:59)
[2017-12-18] MEDS: RESP: ALBUTEROL 2.5 MG/IPRATROPIUM 0.5 MG NEB (SCH) INH ×4 (03:59→19:43)
[2017-12-18] MEDS: DILTIAZEM HCL 30 MG TAB PO SCH ×5 (05:31→23:57)
[2017-12-18] MEDS: AZTREONAM INJ 1,000 MG in SODIUM CHLORIDE 0.9% INJ 100 ML IV SCH ×3 (05:32→23:57)
[2017-12-18 05:35] LABS: HEMATOCRIT 26.1 % (35.0-46.0); HEMOGLOBIN 8.6 GM/DL (11.6-15.3); MEAN CELL VOLUME 90.6 FL (80.0-100.0); MEAN CORPUSCULAR HEMOGLOBIN 29.9 PG (27.0-34.0); PLATELET COUNT 289 TH/MM3 (150-450); RED BLOOD COUNT 2.88 MIL/MM3 (4.00-5.30); RED CELL DISTRIBUTION WIDTH 18.2 % (11.6-17.2); WHITE BLOOD COUNT 5.3 TH/MM3 (4.0-11.0)
[2017-12-18 05:55] LABS: CALCIUM 7.6 MG/DL (8.5-10.1); CREATININE 1.97 MG/DL (0.50-1.00)
[2017-12-18 05:57] LABS: RANDOM VANCOMYCIN 18.2 COMMENT
[2017-12-18] MEDS: RESP: BUDESONIDE 0.5 MG/2 ML NEB NEB SCH ×2 (07:48→19:43)
[2017-12-18] MEDS: INSULIN NovoLIN REGULAR SUPPLEMENTAL SCALE SQ SCH ×4 (08:00→21:00)
[2017-12-18] MEDS: MUPIROCIN 2% OINT 1 APPLIC/GM SYR EACH NARE SCH ×2 (08:02→21:00)
[2017-12-18] MEDS: SERTRALINE HCL 100 MG TAB PO SCH (08:02)
[2017-12-18] MEDS: ASCORBIC ACID 500 MG TAB PO SCH ×2 (08:03→21:00)
[2017-12-18] MEDS: PANTOPRAZOLE SOD 40 MG DELAYED RELEASE TAB PO SCH (08:03)
[2017-12-18] MEDS: FUROSEMIDE 40 MG TAB PO SCH (08:03)
[2017-12-18] MEDS: RIVAROXABAN 10 MG TAB PO SCH (08:03)
[2017-12-18] MEDS: SODIUM CHLORIDE 0.9% FLUSH 10 ML FLUSH IV FLUSH SCH ×2 (08:03→21:58)
[2017-12-18] MEDS: PREGABALIN 75 MG CAP PO SCH (08:03)
[2017-12-18] MEDS: DOCUSATE SODIUM 50 MG/SENNA 8.6 MG TAB PO SCH ×2 (08:03→21:00)
[2017-12-18] MEDS: POTASSIUM CHLORIDE 20 MEQ CONTROLLED RELEASE TAB PO SCH (08:04)
[2017-12-18] MEDS: NYSTATIN 100,000 U/GM PWD 15 GM BTL TOPICAL SCH ×2 (08:05→21:00)
[2017-12-18] MEDS: VANCOMYCIN 25 MG/ML SOLN 100 ML BOTTLE PO SCH ×4 (08:05→21:00)
[2017-12-18] MEDS: METOPROLOL TARTRATE 25 MG TAB PO SCH ×2 (08:05→21:59)
[2017-12-18] MEDS: LACTOBACILLUS ACIDOPHILUS TAB PO SCH ×2 (11:51→16:30)
[2017-12-18] MEDS ORDERED: VANCOMYCIN INJ 1,500 MG in SODIUM CHLORID 0.9% 500 ML INJ 500 ML IV ONE (18:00)
--- NOTE | 2017-12-18 19:05 | HHI.CCPN ---
Subjective Remarks/Hospital Course This is a 67-year-old female. Date of admission 12/13/2017. Past medical history includes elevated BMI, chronic asthma on chronic oxygen, atrial fibrillation/rate controlled, hypertension dyslipidemia. Today, patient presents to [facility] emergency department after being found unresponsive at the shelter. She was just discharged from the hospital 12/10/2017 from [facility]. She is morbidly obese with multiple severe chronic illnesses and was both in respiratory distress and decreased responsiveness at the same time. She was noted to be hypoxic with saturations in the e 80s with nasal cannula. Was brought in on BiPAP. Accu-Chek was in the 30s when paramedics found her. Initial GCS was reported as 3. She received some D10 through a right arm PICC line but upon arrival staff felt that the PICC line was not working properly. Patient cannot provide any history or review of systems. She arrives critically ill Patient received D50 and a central line in the right internal jugular was placed by ED physician as no significant access was available. Chest x-ray revealed no acute cardiopulmonary findings. After being placed on BiPAP and receiving glucose patient's mentation is much improved and likely can be removed in the ICU. Less confused when evaluated in the ED. UA is positive. Previous history of Pseudomonas sensitive to aztreonam 3: Currently resting in bed in no acute distress on 3 L nasal cannula. Overnight on BiPAP/Venturi mask currently on 3 L nasal cannula. Difficult to arouse but once arousable does follow commands in all 4 extremities but weakly. Blood sugar 135. ABG currently pending Subjective 12/15: Afebrile. Resting in bed on nasal cannula. Arousable and following commands. Ill-definition due to hypo-tension. I will place arterial line secondary to body habitus. She does not appear septic. She is more awake and alert and attentive today as compared to yesterday. 3: Alert and oriented 3, responding to questions appropriately. Arterial line inability to play secondary to body habitus. Patient remained on phenylephrine during the night but now map remains less than 60 will resume phenylephrine infusion, and initiate Midodrine. 12/17: Hemodynamically stable. Phenylephrine infusion off since last night. MAP 80's. Patient alert and oriented, tolerating diet/breakfast. 12/18: Late entry note. Hemodynamically stable. Decrease FiO2 requirements currently on 2 L nasal cannula O2 saturation 97-98 %. Objective Vital Signs Date Time Temp Pulse Resp B/P (MAP) Pulse Ox O2 Delivery O2 Flow Rate FiO2 12/18/17 18:00 107 12/18/17 16:00 98.5 16 107/53 (71) 100 12/18/17 07:49 Nasal Cannula 3.00 12/18/17 04:35 30 Intake and Output 12/18/17 12/18/17 12/19/17 08:00 16:00 00:00 Intake Total 100 ml 720 ml Output Total 220 ml 700 ml Balance -120 ml 20 ml Result Diagram: 12/18/17 0520 12/18/17 0520 Imaging Last Impressions Chest X-Ray 12/17/17599 Signed Impressions: Service Date/Time: Sunday, December 17, 2017 03:40 - CONCLUSION: 1. Persistent left lung volume loss with opacity at the left lung base. This could represent atelectasis or airspace consolidation. 2. Right IJ line remains present but distal tip is not adequately visualized on this exam. Perry Kessler MD Upper Extremity Ultrasound 12/13/17 Signed Impressions: Service Date/Time: December 13:43 - CONCLUSION: 1. No deep venous thrombosis in the left upper extremity. 2. Superficial thrombosis of the right cephalic vein. El Nuñez MD Lower Extremity Ultrasound 12/13/17 Signed Impressions: Service Date/Time: December 14:26 - CONCLUSION: Normal examination. Domingo Calderon MD Head CT 12/13/17 Signed Impressions: Service Date/Time: December 13:30 - CONCLUSION: Normal examination. Domingo Calderon MD Last Impressions Chest X-Ray 12/16/17599 Signed Impressions: Service Date/Time: Saturday, December 16, 2017 02:40 - CONCLUSION: Stable left lower lung consolidation. Dorian Vasquez MD Upper Extremity Ultrasound 12/13/17 Signed Impressions: Service Date/Time: December 13:43 - CONCLUSION: 1. No deep venous thrombosis in the left upper extremity. 2. Superficial thrombosis of the right cephalic vein. El Nuñez MD Lower Extremity Ultrasound 12/13/17 0000 Signed Impressions: Service Date/Time: December 14:26 - CONCLUSION: Normal examination. Domingo Calderon MD Head CT 12/13/17 0000 Signed Impressions: Service Date/Time: December 13:30 - CONCLUSION: Normal examination. Domingo Calderon MD Last Impressions Chest X-Ray 12/15/17 0600 Signed Impressions: Service Date/Time: Friday, December 15, 2017 03:58 - CONCLUSION: Persistent left lower lung consolidation. Dorian Vasquez MD Upper Extremity Ultrasound 12/13/17 0000 Signed Impressions: Service Date/Time: December 13:43 - CONCLUSION: 1. No deep venous thrombosis in the left upper extremity. 2. Superficial thrombosis of the right cephalic vein. El Nuñez MD Lower Extremity Ultrasound 12/13/17 0000 Signed Impressions: Service Date/Time: December 14:26 - CONCLUSION: Normal examination. Domingo Calderon MD Head CT 12/13/17 0000 Signed Impressions: Service Date/Time: December 13:30 - CONCLUSION: Normal examination. Domingo Calderon MD Objective Remarks GENERAL: 67-year-old super morbidly obese female resting in bed currently nasal cannula in no acute distress, tolerating breakfast SKIN: Warm and dry. HEAD: Atraumatic. Normocephalic. EYES: Pupils equal and round about 3 mm bilaterally and reactive. No scleral icterus. No injection or drainage. ENT: No nasal bleeding or discharge. Mucous membranes pink and moist. NECK: Trachea midline. No JVD. CARDIOVASCULAR: IRR. Distant heart tones. S1, S2. No S4. Without murmur RESPIRATORY: Diminished breath sounds throughout due to body habitus. No wheezing is appreciated. Breath sounds equal bilaterally. GASTROINTESTINAL: Abdomen soft, obese, nontender. Hypoactive bowel sounds are appreciated MUSCULOSKELETAL: Extremities with 2+ bilateral upper and lower extremity edema NEUROLOGICAL: Awake and alert to person place. No obvious cranial nerve deficits. Motor grossly within normal limits. 5/5 muscle strength in the arms and legs. More verbose today 12/15 Date of Insertion: Dec 13, 2017 Line: Central Venous Catheter Side: Right Location: Internal, Jugular A/P Assessment and Plan Neuro/Psych: Chronic benzodiazepine use Depression disorder NOS Acute toxic metabolic encephalopathy likely secondary to hypoglycemia/CO2 retention Diabetic neuropathy Chronic pain syndrome with chronic narcotic use Acetaminophen 650 mg p.o. every 6 hours as needed fever/pain 1 through 5 3 Morphine sulfate 2 mg IV every 3 hours as needed pain 6-10- discontinued Continuing alprazolam 1 mg p.o. twice daily as needed anxiety Holding hydrocodone/acetaminophen 5/321 tablet every 6 hours as needed pain Continue sertraline 100 mg p.o. daily for depression Continue pregabalin 75 mg p.o. daily for peripheral neuropathy CT brain 12/13 revealed no acute intracranial findings CV: Atrial fibrillation/chronic Hypertension Currently on low-dose phenylephrine discontinued 12/16. continue to monitor Home blood pressure medications include metoprolol 12.5 mg p.o. every 12 hours\ furosemide 40 mg p.o. daily\ diltiazem 90 mg p.o. daily adjusted to 15 mg every 6 hours 2D echocardiogram 12/02 - normal left ventricular size. Wall thickness is measured at the upper limits of normal. The left ventricular systolic function is low normal with an estimated ejection fraction in the range of 50-55%. The left atrial size is mildly dilated. The right atrial size is moderately dilated. There is trace tricuspid valve regurgitation. Resp: Acute hypoxic respiratory failure APOLONIA/OHS History recurrent MRSA pneumonia 3 L nasal cannula for saturations greater than or equal to 90% As needed BiPAP Currently in albuterol/ipratropium aerosols every 6 hours with albuterol aerosols every 2 hours dyspnea Continue budesonide 0.5 mg/2 mL nebulizers every 12 hours Holding levalbuterol HCL 1.25 mg 3 mL nebs every 4 hours Holding formoterol fumarate 20 mg/2 mL nebs twice daily Chest x-rays and ABGs when clinically indicated GI: BMI greater than 50 Gastroesophageal reflux disease 2200 KCal ADA diet Pantoprazole for GI prophylaxis. Patient is on famotidine 20 mg p.o. daily at home Docusate sodium/senna 1 tablet twice daily for bowel regimen. Patient is on senna 8.6 mg twice daily at home Continue ondansetron 4 mg every 6 hours as needed nausea : Solitario catheter to maintain patency with recent pyelonephritis/GJ placement. Outpatient J stent removal by urology placed during last hospitalization 12/02 Endo: Diabetes mellitus Acute hypoglycemia Holding insulin detemir 40 units twice daily Sliding scale insulin with Novulin R with Accu-Cheks to maintain euglycemia before meals at bedtime. No sliding scale insulin past 24 hours Renal: Chronic kidney disease stage IIIa Creatinine currently 1.88 Avoid nephrotoxic drugs Monitor urine output Accurate I's and O's Heme: Normocytic anemia Chronic Rivaroxaban use Right cephalic vein superficial thrombus Currently stable hemoglobin. No indication for transfusion of blood products at this time. Continue with rivaroxaban 10 mg daily ID: Urinary tract infection/gram-negative eugenio History of MRSA History of C. difficile Currently in vancomycin, aztreonam and metronidazole Currently on oral vancomycin 4 additional days for C. difficile Pertinent cultures Blood cultures 2, 3 no growth to date Urine Legionella pneumococcal antigens negative Urine culture 12/13 Klebsiella MSK: Elevated BMI Weight loss encouraged FEN: Replace electrolytes as clinically indicated Receiving 2 g mag sulfate IV 1 now. Recheck in a.m. Start calcium acetate 667 mg p.o. 3 times daily for 2 days. Recheck phosphorus in a.m. Access -Right IJ CVL day #6 placed the ED 3 Prophylaxis -GI -pantoprazole -DVT -SCD/rivaroxaban Level 2 follow-up plan transfer to [facility] in a.m.. D/W IT TRAINER at bedside (Sabrina) Physician Amelia Delgadillo MD Dec 18, 2017 19:05
[2017-12-19] VITALS (17 sets, daily range): BP systolic 105–159; BP diastolic 48–69; PULSE 110–133; RESP 11–16; TEMP 97.7–98.5; O2SAT 100
[2017-12-19] MEDS: RESP: ALBUTEROL 2.5 MG/IPRATROPIUM 0.5 MG NEB (SCH) INH ×4 (03:34→21:19)
[2017-12-19] MEDS: metroNIDAZOLE 500 MG INJ 100 ML IV SCH ×4 (04:00→21:55)
[2017-12-19] MEDS: CHLORHEXIDINE GLUCONATE 2 % 1 PACK (2 CLOTHS) TOP SCH (04:00)
[2017-12-19] MEDS: DILTIAZEM HCL 30 MG TAB PO SCH ×4 (05:14→21:00)
[2017-12-19] MEDS: AZTREONAM INJ 1,000 MG in SODIUM CHLORIDE 0.9% INJ 100 ML IV SCH ×3 (07:00→23:19)
[2017-12-19] MEDS: RESP: BUDESONIDE 0.5 MG/2 ML NEB NEB SCH ×2 (08:00→21:19)
[2017-12-19 08:54] LABS: BICARBONATE 24.4 MEQ/L (21.0-32.0); CREATININE 1.94 MG/DL (0.50-1.00)
[2017-12-19] MEDS: PREGABALIN 75 MG CAP PO SCH (10:23)
[2017-12-19] MEDS: MUPIROCIN 2% OINT 1 APPLIC/GM SYR EACH NARE SCH ×2 (10:23→21:43)
[2017-12-19] MEDS: RIVAROXABAN 10 MG TAB PO SCH (10:23)
[2017-12-19] MEDS: ASCORBIC ACID 500 MG TAB PO SCH ×2 (10:23→21:00)
[2017-12-19] MEDS: DOCUSATE SODIUM 50 MG/SENNA 8.6 MG TAB PO SCH ×2 (10:23→21:00)
[2017-12-19] MEDS: METOPROLOL TARTRATE 25 MG TAB PO SCH ×2 (10:24→21:00)
[2017-12-19] MEDS: LACTOBACILLUS ACIDOPHILUS TAB PO SCH ×3 (10:24→18:00)
[2017-12-19] MEDS: POTASSIUM CHLORIDE 20 MEQ CONTROLLED RELEASE TAB PO SCH (10:26)
[2017-12-19] MEDS: SERTRALINE HCL 100 MG TAB PO SCH (10:26)
[2017-12-19] MEDS: VANCOMYCIN 25 MG/ML SOLN 100 ML BOTTLE PO SCH ×3 (10:26→21:00)
[2017-12-19] MEDS: FUROSEMIDE 40 MG TAB PO SCH (10:26)
[2017-12-19] MEDS: PANTOPRAZOLE SOD 40 MG DELAYED RELEASE TAB PO SCH (10:26)
[2017-12-19] MEDS: SODIUM CHLORIDE 0.9% FLUSH 10 ML FLUSH IV FLUSH SCH ×2 (10:27→21:44)
--- NOTE | 2017-12-19 11:44 | HHI.PR ---
Subjective Remarks Follow-up metabolic encephalopathy/respiratory failure 12/19/17-patient seen and examined , she was sleeping this morning with BiPAP on. Afebrile Objective Vitals Vital Signs Date Time Temp Pulse Resp B/P (MAP) Pulse Ox O2 Delivery O2 Flow Rate FiO2 12/19/17 09:57 100 Nasal Cannula 3.00 12/19/17 06:00 123 12/19/17 06:00 123 12/19/17 04:00 97.7 120 16 105/60 (75) 100 12/19/17 04:00 110 12/19/17 03:34 100 30 12/19/17 02:00 113 12/19/17 01:10 100 30 12/19/17 00:00 119 12/19/17 00:00 98.0 119 11 115/53 (73) 100 12/18/17 22:50 100 30 12/18/17 22:00 119 12/18/17 20:00 122 12/18/17 20:00 97.8 122 18 120/59 (79) 100 12/18/17 19:43 100 Nasal Cannula 3.00 12/18/17 18:00 107 12/18/17 16:00 98.5 103 16 107/53 (71) 100 12/18/17 16:00 103 12/18/17 14:00 111 12/18/17 12:00 97.7 112 14 114/56 (75) 99 12/18/17 12:00 112 I/O 12/18/17 12/18/17 12/18/17 12/19/17 12/19/17 12/19/17 07:00 15:00 23:00 07:00 15:00 23:00 Intake Total 100 ml 720 ml Output Total 220 ml 700 ml 650 ml Balance -120 ml 20 ml -650 ml Intake Oral 100 ml 720 ml Output Urine Total 220 ml 700 ml 650 ml Stool Total 0 ml # Bowel Movements 2 Result Diagram: 12/18/17 0520 12/19/17 06 Imaging Last Impressions Chest X-Ray 12/17/17 06 Signed Impressions: Service Date/Time: Sunday, December 17, 2017 03:40 - CONCLUSION: 1. Persistent left lung volume loss with opacity at the left lung base. This could represent atelectasis or airspace consolidation. 2. Right IJ line remains present but distal tip is not adequately visualized on this exam. Perry Kessler MD Upper Extremity Ultrasound 12/13/17 Signed Impressions: Service Date/Time: December 13:43 - CONCLUSION: 1. No deep venous thrombosis in the left upper extremity. 2. Superficial thrombosis of the right cephalic vein. El Nuñez MD Lower Extremity Ultrasound 12/13/17 Signed Impressions: Service Date/Time: December 14:26 - CONCLUSION: Normal examination. Domingo Calderon MD Head CT 12/13/17 Signed Impressions: Service Date/Time: December 13:30 - CONCLUSION: Normal examination. Domingo Calderon MD Objective Remarks GENERAL: NAD and sleeping SKIN: Warm and dry. HEAD: Normocephalic. EYES: No scleral icterus. No injection or drainage. NECK: Supple, trachea midline. No JVD or lymphadenopathy. CARDIOVASCULAR: Irreg Regular rate and rhythm without murmurs, gallops, or rubs. RESPIRATORY: Breath sounds decrease bilaterally. No accessory muscle use. GASTROINTESTINAL: Abdomen soft, non-tender, nondistended. MUSCULOSKELETAL: No cyanosis, or edema. BACK: Nontender without obvious deformity. No CVA tenderness. Date of Insertion: Dec 13, 2017 Line: Central Venous Catheter Side: Right Location: Internal, Jugular A/P Problem List: (1) Acute hypercapnic respiratory failure ICD Code: J96.02 - Acute respiratory failure with hypercapnia Status: Acute (2) Hypoglycemia ICD Code: E16.2 - Hypoglycemia, unspecified Status: Acute (3) BMI 50.0-59.9, adult ICD Code: Z68.43 - Body mass index (BMI) 50-59.9 , adult (4) Afib ICD Code: I48.91 - Unspecified atrial fibrillation Status: Chronic (5) Dyslipidemia ICD Code: E78.5 - Hyperlipidemia, unspecified (6) Peripheral neuropathy ICD Code: G62.9 - Polyneuropathy, unspecified (7) Diabetes mellitus ICD Code: E11.9 - Type 2 diabetes mellitus without complications (8) Essential hypertension ICD Code: I10 - Essential (primary) hypertension (9) Hiatal hernia ICD Code: K44.9 - Diaphragmatic hernia without obstruction or gangrene (10) Gastroesophageal reflux disease ICD Code: K21.9 - Gastro-esophageal reflux disease without esophagitis (11) Chronic kidney disease (CKD) stage G3a/A3, moderately decreased glomerular filtration rate (GFR) between 45-59 mL/min/1.73 square meter and albuminuria creatinine ratio greater than 300 mg/g ICD Code: N18.3 - Chronic kidney disease, stage 3 (moderate) Assessment and Plan 67-year-old female with Chronic benzodiazepine use Depression disorder NOS Acute toxic metabolic encephalopathy likely secondary to hypoglycemia/CO2 retention Diabetic neuropathy Chronic pain syndrome with chronic narcotic use Acetaminophen 650 mg p.o. every 6 hours as needed fever/pain 1 through 5 3/ Morphine sulfate 2 mg IV every 3 hours as needed pain 6-10- discontinued Continuing alprazolam 1 mg p.o. twice daily as needed anxiety Holding hydrocodone/acetaminophen 5/321 tablet every 6 hours as needed pain Continue sertraline 100 mg p.o. daily for depression Continue pregabalin 75 mg p.o. daily for peripheral neuropathy CT brain 12/13 revealed no acute intracranial findings Atrial fibrillation/chronic Hypertension Currently on low-dose phenylephrine discontinued 12/16. continue to monitor Home blood pressure medications include metoprolol 12.5 mg p.o. every 12 hours\ furosemide 40 mg p.o. daily\ diltiazem 90 mg p.o. daily adjusted to 15 mg every 6 hours 2D echocardiogram 12/02 - normal left ventricular size. Wall thickness is measured at the upper limits of normal. The left ventricular systolic function is low normal with an estimated ejection fraction in the range of 50-55%. The left atrial size is mildly dilated. The right atrial size is moderately dilated. There is trace tricuspid valve regurgitation. Acute hypoxic respiratory failure APOLONIA/OHS History recurrent MRSA pneumonia As needed BiPAP Currently in albuterol/ipratropium aerosols every 6 hours with albuterol aerosols every 2 hours dyspnea Continue budesonide 0.5 mg/2 mL nebulizers every 12 hours Holding levalbuterol HCL 1.25 mg 3 mL nebs every 4 hours Holding formoterol fumarate 20 mg/2 mL nebs twice daily Maintain oxygen saturation above 92% Consult pulmonary medicine BMI greater than 50 Gastroesophageal reflux disease 2200 KCal ADA diet Pantoprazole for GI prophylaxis. Docusate sodium/senna 1 tablet twice daily for bowel regimen. Diabetes mellitus Acute hypoglycemia Holding insulin detemir 40 units twice daily Sliding scale insulin with Novulin R with Accu-Cheks to maintain euglycemia before meals at bedtime. Chronic kidney disease stage IIIa Avoid nephrotoxic drugs Monitor urine output Accurate I's and O's Normocytic anemia Chronic Rivaroxaban use Right cephalic vein superficial thrombus Currently stable hemoglobin. No indication for transfusion of blood products at this time. Continue with rivaroxaban 10 mg daily Urinary tract infection/gram-negative eugenio History of MRSA History of C. difficile Currently in vancomycin, aztreonam and metronidazole Currently on oral vancomycin 3 additional days for C. difficile Elevated BMI Weight loss encouraged Prophylaxis -GI -pantoprazole -DVT -SCD/rivaroxaban Problem Qualifiers (1) Afib: Qualified Codes: I48.2 - Chronic atrial fibrillation (2) Peripheral neuropathy: Qualified Codes: G62.9 - Polyneuropathy, unspecified (3) Diabetes mellitus: Qualified Codes: E10.8 - Type 1 diabetes mellitus with unspecified complications El Aiken MD Dec 19, 2017 11:44
[2017-12-19] MEDS ORDERED: PHENYLEPH/NS 1000 MCG/10 ML SYR IV ONE (19:00)
[2017-12-19] MEDS ORDERED: FUROSEMIDE 20 MG/2 ML VIAL IV PUSH ONE (20:30)
[2017-12-19] MEDS ORDERED: ALBUMIN 25% INJ 100 ML IV ONE (20:30)
--- NOTE | 2017-12-19 20:31 | HHI.CCPN ---
Subjective Remarks/Hospital Course This is a 67-year-old female. Date of admission 12/13/2017. Past medical history includes elevated BMI, chronic asthma on chronic oxygen, atrial fibrillation/rate controlled, hypertension dyslipidemia. Today, [facility] after being found unresponsive at the halfway. She was just [facility] She is morbidly obese with multiple severe chronic illnesses and was both in respiratory distress and decreased responsiveness at the same time. She was noted to be hypoxic with saturations in the e 80s with nasal cannula. Was brought in on BiPAP. Accu-Chek was in the 30s when paramedics found her. Initial GCS was reported as 3. She received some D10 through a right arm PICC line but upon arrival staff felt that the PICC line was not working properly. Patient cannot provide any history or review of systems. She arrives critically ill Patient received D50 and a central line in the right internal jugular was placed by ED physician as no significant access was available. Chest x-ray revealed no acute cardiopulmonary findings. After being placed on BiPAP and receiving glucose patient's mentation is much improved and likely can be removed in the ICU. Less confused when evaluated in the ED. UA is positive. Previous history of Pseudomonas sensitive to aztreonam 3: Currently resting in bed in no acute distress on 3 L nasal cannula. Overnight on BiPAP/Venturi mask currently on 3 L nasal cannula. Difficult to arouse but once arousable does follow commands in all 4 extremities but weakly. Blood sugar 135. ABG currently pending Subjective 12/15: Afebrile. Resting in bed on nasal cannula. Arousable and following commands. Ill-definition due to hypo-tension. I will place arterial line secondary to body habitus. She does not appear septic. She is more awake and alert and attentive today as compared to yesterday. 3: Alert and oriented 3, responding to questions appropriately. Arterial line inability to play secondary to body habitus. Patient remained on phenylephrine during the night but now map remains less than 60 will resume phenylephrine infusion, and initiate Midodrine. 12/17: Hemodynamically stable. Phenylephrine infusion off since last night. MAP 80's. Patient alert and oriented, tolerating diet/breakfast. 12/18: Late entry note. Hemodynamically stable. Decrease FiO2 requirements currently on 2 L nasal cannula O2 saturation 97-98 %. RECONSULT 12/19: Patient became hemodynamically unstable this afternoon requiring reinitiation of phenylephrine infusion currently at 70 mcgs/minute. Objective Vital Signs Date Time Temp Pulse Resp B/P (MAP) Pulse Ox O2 Delivery O2 Flow Rate FiO2 12/19/17 18:00 125 12/19/17 16:00 97.9 15 110/48 (68) 100 12/19/17 09:57 Nasal Cannula 3.00 12/19/17 03:34 30 Intake and Output 12/19/17 12/19/17 12/20/17 08:00 16:00 00:00 Intake Total 480 ml Output Total 650 ml 200 ml Balance -650 ml 280 ml Result Diagram: 12/18/17 0520 12/19/17605 Imaging Last Impressions Chest X-Ray 12/17/17599 Signed Impressions: Service Date/Time: Sunday, December 17, 2017 03:40 - CONCLUSION: 1. Persistent left lung volume loss with opacity at the left lung base. This could represent atelectasis or airspace consolidation. 2. Right IJ line remains present but distal tip is not adequately visualized on this exam. Perry Kessler MD Upper Extremity Ultrasound 12/13/17 Signed Impressions: Service Date/Time: December 13:43 - CONCLUSION: 1. No deep venous thrombosis in the left upper extremity. 2. Superficial thrombosis of the right cephalic vein. El Nuñez MD Lower Extremity Ultrasound 12/13/17 Signed Impressions: Service Date/Time: December 14:26 - CONCLUSION: Normal examination. Domingo Calderon MD Head CT 12/13/17 Signed Impressions: Service Date/Time: December 13:30 - CONCLUSION: Normal examination. Domingo Calderon MD Last Impressions Chest X-Ray 12/17/17599 Signed Impressions: Service Date/Time: Sunday, December 17, 2017 03:40 - CONCLUSION: 1. Persistent left lung volume loss with opacity at the left lung base. This could represent atelectasis or airspace consolidation. 2. Right IJ line remains present but distal tip is not adequately visualized on this exam. Perry Kessler MD Upper Extremity Ultrasound 12/13/17 Signed Impressions: Service Date/Time: December 13:43 - CONCLUSION: 1. No deep venous thrombosis in the left upper extremity. 2. Superficial thrombosis of the right cephalic vein. El Nuñez MD Lower Extremity Ultrasound 12/13/17 Signed Impressions: Service Date/Time: December 14:26 - CONCLUSION: Normal examination. Domingo Calderon MD Head CT 12/13/17 Signed Impressions: Service Date/Time: December 13:30 - CONCLUSION: Normal examination. Domingo Calderon MD Last Impressions Chest X-Ray 12/16/17599 Signed Impressions: Service Date/Time: Saturday, December 16, 2017 02:40 - CONCLUSION: Stable left lower lung consolidation. Dorian Vasquez MD Upper Extremity Ultrasound 12/13/17 Signed Impressions: Service Date/Time: December 13:43 - CONCLUSION: 1. No deep venous thrombosis in the left upper extremity. 2. Superficial thrombosis of the right cephalic vein. El Nuñez MD Lower Extremity Ultrasound 12/13/17 Signed Impressions: Service Date/Time: December 14:26 - CONCLUSION: Normal examination. Domingo Calderon MD Head CT 12/13/17 Signed Impressions: Service Date/Time: December 13:30 - CONCLUSION: Normal examination. Domingo Calderon MD Last Impressions Chest X-Ray 12/15/17 06 Signed Impressions: Service Date/Time: Friday, December 15, 2017 03:58 - CONCLUSION: Persistent left lower lung consolidation. Dorian Vasquez MD Upper Extremity Ultrasound 12/13/17 0000 Signed Impressions: Service Date/Time: December 13:43 - CONCLUSION: 1. No deep venous thrombosis in the left upper extremity. 2. Superficial thrombosis of the right cephalic vein. El Nuñez MD Lower Extremity Ultrasound 12/13/17 Signed Impressions: Service Date/Time: December 14:26 - CONCLUSION: Normal examination. Domingo Calderon MD Head CT 12/13/17 0000 Signed Impressions: Service Date/Time: December 13:30 - CONCLUSION: Normal examination. Domingo Calderon MD Objective Remarks GENERAL: 67-year-old super morbidly obese female resting in bed currently nasal cannula in no acute distress, tolerating breakfast SKIN: Warm and dry. HEAD: Atraumatic. Normocephalic. EYES: Pupils equal and round about 3 mm bilaterally and reactive. No scleral icterus. No injection or drainage. ENT: No nasal bleeding or discharge. Mucous membranes pink and moist. NECK: Trachea midline. No JVD. CARDIOVASCULAR: IRR. Distant heart tones. S1, S2. No S4. Without murmur RESPIRATORY: Diminished breath sounds throughout due to body habitus. No wheezing is appreciated. Breath sounds equal bilaterally. GASTROINTESTINAL: Abdomen soft, obese, nontender. Hypoactive bowel sounds are appreciated MUSCULOSKELETAL: Extremities with 2+ bilateral upper and lower extremity edema NEUROLOGICAL: Awake and alert to person place. No obvious cranial nerve deficits. Motor grossly within normal limits. 5/5 muscle strength in the arms and legs. More verbose today 12/15 Date of Insertion: Dec 13, 2017 Line: Central Venous Catheter Side: Right Location: Internal, Jugular A/P Assessment and Plan Neuro/Psych: Chronic benzodiazepine use Depression disorder NOS Acute toxic metabolic encephalopathy likely secondary to hypoglycemia/CO2 retention Diabetic neuropathy Chronic pain syndrome with chronic narcotic use Acetaminophen 650 mg p.o. every 6 hours as needed fever/pain 1 through 5 3/5 Morphine sulfate 2 mg IV every 3 hours as needed pain 6-10- discontinued Continuing alprazolam 1 mg p.o. twice daily as needed anxiety Holding hydrocodone/acetaminophen 5/321 tablet every 6 hours as needed pain Continue sertraline 100 mg p.o. daily for depression Continue pregabalin 75 mg p.o. daily for peripheral neuropathy CT brain 12/13 revealed no acute intracranial findings CV: Atrial fibrillation/chronic Hypertension Currently on low-dose phenylephrine discontinued 12/16.restarted on 12/19 12/19 Midodrine 10mg q 8 hrs Home blood pressure medications include metoprolol 12.5 mg p.o. every 12 hours\ furosemide 40 mg p.o. daily\ diltiazem 90 mg p.o. daily adjusted to 5 mg every 6 hours 2D echocardiogram 12/02 - normal left ventricular size. Wall thickness is measured at the upper limits of normal. The left ventricular systolic function is low normal with an estimated ejection fraction in the range of 50-55%. The left atrial size is mildly dilated. The right atrial size is moderately dilated. There is trace tricuspid valve regurgitation. Resp: Acute hypoxic respiratory failure APOLONIA/OHS History recurrent MRSA pneumonia 3 L nasal cannula for saturations greater than or equal to 90% As needed BiPAP Currently in albuterol/ipratropium aerosols every 6 hours with albuterol aerosols every 2 hours dyspnea Continue budesonide 0.5 mg/2 mL nebulizers every 12 hours Holding levalbuterol HCL 1.25 mg 3 mL nebs every 4 hours Holding formoterol fumarate 20 mg/2 mL nebs twice daily Chest x-rays and ABGs when clinically indicated GI: BMI greater than 50 Gastroesophageal reflux disease 2200 KCal ADA diet Pantoprazole for GI prophylaxis. Patient is on famotidine 20 mg p.o. daily at home Docusate sodium/senna 1 tablet twice daily for bowel regimen. Patient is on senna 8.6 mg twice daily at home Continue ondansetron 4 mg every 6 hours as needed nausea : Solitario catheter to maintain patency with recent pyelonephritis/GJ placement. Outpatient J stent removal by urology placed during last hospitalization 12/02 Endo: Diabetes mellitus Acute hypoglycemia Holding insulin detemir 40 units twice daily Sliding scale insulin with Novulin R with Accu-Cheks to maintain euglycemia before meals at bedtime. No sliding scale insulin past 24 hours Renal: Chronic kidney disease stage IIIa Creatinine currently 1.88 Avoid nephrotoxic drugs Monitor urine output Accurate I's and O's Heme: Normocytic anemia Chronic Rivaroxaban use Right cephalic vein superficial thrombus Currently stable hemoglobin. No indication for transfusion of blood products at this time. Continue with rivaroxaban 10 mg daily ID: Urinary tract infection/gram-negative eugenio History of MRSA History of C. difficile Currently in vancomycin, aztreonam and metronidazole Currently on oral vancomycin 4 additional days for C. difficile Pertinent cultures Blood cultures 2, 3 no growth to date Urine Legionella pneumococcal antigens negative Urine culture 12/13 Klebsiella MSK: Elevated BMI Weight loss encouraged FEN: Replace electrolytes as clinically indicated Receiving 2 g mag sulfate IV 1 now. Recheck in a.m. Start calcium acetate 667 mg p.o. 3 times daily for 2 days. Recheck phosphorus in a.m. Access -Right IJ CVL day #7 placed the ED 12/13 Prophylaxis -GI -pantoprazole -DVT -SCD/rivaroxaban Level 3 Physician Amelia Delgadillo MD Dec 19, 2017 20:31
[2017-12-19] MEDS: INSULIN NovoLIN REGULAR SUPPLEMENTAL SCALE SQ SCH (21:00)
[2017-12-19] MEDS: MIDODRINE 5 MG TAB PO SCH (21:00)
[2017-12-19] MEDS: NYSTATIN 100,000 U/GM PWD 15 GM BTL TOPICAL SCH (21:42)
[2017-12-19] MEDS: methylPREDNISolone SOD SUCC 40 MG/1 ML VIAL IV SCH (21:55)
[2017-12-19] MEDS: PHENYLEPHRINE INJ 160 MG in DEXTROSE 5% IN WATE 500 ML INJ 484 ML IV PRN ×2 (22:25)
[2017-12-19] MEDS: D5-1/2 NS + KCL 10 MEQ INJ 1,000 ML IV SCH (22:25)
[2017-12-20] VITALS (15 sets, daily range): BP systolic 102–122; BP diastolic 53–67; PULSE 106–132; RESP 10–18; TEMP 97.5–98.7; O2SAT 95–100
[2017-12-20] MEDS ORDERED: DILTIAZEM HCL 30 MG TAB PO SCH
[2017-12-20] MEDS ORDERED: SODIUM BICARBONATE 8.4% INJ 50 MEQ/50 ML SYR ONE (02:18)
--- NOTE | 2017-12-20 02:24 | RADRPT ---
EXAM DATE/TIME: 12/20/2017 02:09 [facility] COMPARISON: CHEST SINGLE AP, December 17, 2017, 3:40. INDICATIONS : Shortness of breath, possible pulmonary disease. MEDICAL HISTORY : Hypertension. Diabetes mellitus type II. SURGICAL HISTORY : None. ENCOUNTER: Subsequent ACUITY: 3 weeks PAIN SCORE: 0/10 LOCATION: Bilateral chest FINDINGS: Rotated AP view of the chest demonstrates stable enlargement of the cardiac silhouette. Right IJ line is present and distal tip is in the region of the SVC but is overall not well-visualized. Multiple l ele overlie the patient. There is a persistent left basilar opacity obscuring the hemidiaphragm and left heart margin. There is hazy opacity at the right lung base. No pneumothorax is seen. CONCLUSION: 1. Stable chest x-ray with persistent nonspecific left basilar opacity which could represent atelecta sis, consolidation, and/or pleural fluid. 2. Right IJ line remains present but distal tip is not well-visualized. Perry Kessler MD on December 20, 2017 at 2:21 Board Certified Radiologist. This report was verified electronically.
[2017-12-20] MEDS ORDERED: GENTAMICIN INJ 80 MG in SODIUM CHLORIDE 0.9% INJ 100 ML IV ONE (02:30)
[2017-12-20] MEDS: DOXYCYCLINE INJ 200 MG in SODIUM CHLOR 0.9% 250 ML INJ 250 ML IV SCH ×2 (02:41→14:24)
[2017-12-20] MEDS: RESP: ALBUTEROL 2.5 MG/IPRATROPIUM 0.5 MG NEB (SCH) INH ×4 (03:14→20:12)
[2017-12-20] MEDS: CHLORHEXIDINE GLUCONATE 2 % 1 PACK (2 CLOTHS) TOP SCH (03:38)
[2017-12-20 03:59] LABS: BASOPHIL % 0.1 % (0.0-2.0); EOSINOPHIL % 0.1 % (0.0-4.0); HEMATOCRIT 27.8 % (35.0-46.0); LYMPH % 4.7 % (9.0-44.0); LYMPHOCYTE # 0.2 TH/MM3 (1.0-4.8); MEAN CELL VOLUME 90.6 FL (80.0-100.0); MEAN CORPUSCULAR HEMOGLOBIN 29.2 PG (27.0-34.0); MEAN CORPUSCULAR HGB CONC 32.3 % (32.0-36.0); MONO % 2.8 % (0.0-8.0); MONOCYTE # 0.1 TH/MM3 (0-0.9); NEUT % 92.3 % (16.0-70.0); PLATELET COUNT 271 TH/MM3 (150-450); RED BLOOD COUNT 3.07 MIL/MM3 (4.00-5.30); RED CELL DISTRIBUTION WIDTH 17.9 % (11.6-17.2); WHITE BLOOD COUNT 4.4 TH/MM3 (4.0-11.0)
[2017-12-20 04:17] LABS: BICARBONATE 25.7 MEQ/L (21.0-32.0); CALCIUM 8.2 MG/DL (8.5-10.1); CREATININE 1.92 MG/DL (0.50-1.00)
[2017-12-20] MEDS: metroNIDAZOLE 500 MG INJ 100 ML IV SCH ×4 (04:41→23:14)
[2017-12-20] MEDS: MIDODRINE 5 MG TAB PO SCH ×3 (04:41→21:56)
[2017-12-20] MEDS: methylPREDNISolone SOD SUCC 40 MG/1 ML VIAL IV SCH ×2 (04:41→20:42)
[2017-12-20] MEDS: INSULIN NovoLIN REGULAR SUPPLEMENTAL SCALE SQ SCH ×4 (08:00→21:00)
[2017-12-20] MEDS: DOCUSATE SODIUM 50 MG/SENNA 8.6 MG TAB PO SCH ×2 (09:00→20:22)
[2017-12-20] MEDS: RESP: BUDESONIDE 0.5 MG/2 ML NEB NEB SCH ×2 (09:00→20:12)
[2017-12-20] MEDS: VANCOMYCIN 25 MG/ML SOLN 100 ML BOTTLE PO SCH ×4 (09:00→21:00)
[2017-12-20] MEDS: SERTRALINE HCL 100 MG TAB PO SCH (09:00)
[2017-12-20] MEDS: PANTOPRAZOLE SOD 40 MG DELAYED RELEASE TAB PO SCH (09:00)
[2017-12-20] MEDS: RIVAROXABAN 10 MG TAB PO SCH (09:00)
[2017-12-20] MEDS: SODIUM CHLORIDE 0.9% FLUSH 10 ML FLUSH IV FLUSH SCH ×2 (09:00→20:42)
[2017-12-20] MEDS: POTASSIUM CHLORIDE 20 MEQ CONTROLLED RELEASE TAB PO SCH (09:00)
[2017-12-20] MEDS: PREGABALIN 75 MG CAP PO SCH (09:00)
[2017-12-20] MEDS: LACTOBACILLUS ACIDOPHILUS TAB PO SCH ×3 (09:00→18:00)
[2017-12-20] MEDS: NYSTATIN 100,000 U/GM PWD 15 GM BTL TOPICAL SCH ×2 (09:00→21:00)
--- NOTE | 2017-12-20 10:20 | PD.CONS ---
History of Present Illness Service Infectious disease Consult Requested By Dr Amador Reason for Consult Evaluate patient with MDR UTI Primary Care Physician Kirk Martell MD Diagnoses: History of Present Illness Patient seen and examined. Records reviewed. Patient is a 67-year-old female, [facility] the prison, brought into the hospital after she was found unresponsive. She had a recent hospitalization where she was diagnosed to have sepsis related to complicated UTI. During that hospitalization she underwent stent placement. She also had C. difficile colitis during that admission. Patient states that she uses a BiPAP machine in the prison usually when she is sleeping. She is nonambulatory. Denies any significant cough or congestion. No chest pain. There was no mention of any fever or chills or sweats. When she also came to the hospital this time she was on pressors for hypotension. She improved clinically and her hemodynamics stabilize. However yesterday she went hypotensive again, an infectious disease consultation has been requested to evaluate the patient. Patient states that she has a chronic Solitario in place. She has not had any follow-up with a urologist. Her urinalysis showed pyuria, and her urine culture is growing a multidrug resistant gram-negative eugenio. Patient has been afebrile. Her WBC is normal. She is currently on a BiPAP mask. Her chest x- ray has shown vascular congestion and basilar infiltrates. Patient currently is on vasopressin. Review of Systems Constitutional: DENIES: Fever, Chills Eyes: DENIES: Eye pain Ears, nose, mouth, throat: DENIES: Nasal discharge, Oral lesions, Sinus Pain Respiratory: COMPLAINS OF: Shortness of breath, DENIES: Cough Cardiovascular: DENIES: Chest pain, Palpitations Gastrointestinal: COMPLAINS OF: Diarrhea, DENIES: Abdominal pain, Constipation , Nausea, Vomiting, Difficulty Swallowing Integumentary: DENIES: Rash Hematologic/lymphatic: DENIES: Lymphadenopathy Psychiatric: DENIES: Hallucinations Past Family Social History Allergies: Coded Allergies: penicillin G (Unverified Allergy, Severe, 05/29/17) Past Medical History Chronic respiratory failure secondary to APOLONIA, OHS and bronchial asthma Atrial fibrillation rate controlled Hypertension Dyslipidemia Gastroesophageal reflux disease Elevated BMI greater than 50 Recurrent MRSA pneumonia Depression Constipation Past Surgical History JJ stent placement by urology Hiatal hernia surgery Appendectomy Percutaneous tracheostomy by Dr. Mullins since decannulated Active Ordered Medications Current Medications Medications (Trade) Dose Ordered Sig/Mirta Route Start Time Stop Time Status Last Admin (NS Flush) 2 ml UNSCH PRN IV FLUSH 12/13/17 13:30 (NS Flush) 2 ml BID IV FLUSH 12/13/17 21:00 12/19/17 21:44 (Tylenol) 650 mg Q6H PRN PO 12/13/17 13:30 12/14/17 09:42 (Protonix) 40 mg DAILY PO 12/14/17 09:00 12/19/17 10:26 (Zofran Inj) 4 mg Q6H PRN IV PUSH 12/13/17 13:30 (Albuterol Neb) 2.5 mg Q2HR NEB PRN INH 12/13/17 13:30 Miscellaneous Information 1 Q361D XX 12/13/17 13:30 12/13/17 13:30 (Chlorhexidine 2% Cloth) Taper DAILY@04 TOP 12/14/17 04:00 12/10/18 03:59 12/18/17 03:48 (Chlorhexidine 2% Cloth) 3 pack UNSCH PRN TOP 12/13/17 13:30 (Zelda-Colace) 1 tab BID PO 12/13/17 21:00 12/19/17 10:23 (Milk Of Magnesia Liq) 30 ml Q12H PRN PO 12/13/17 13:30 (Senokot) 17.2 mg Q12H PRN PO 12/13/17 13:30 (Dulcolax Supp) 10 mg DAILY PRN RECTAL 12/13/17 13:30 (Lactulose Liq) 30 ml DAILY PRN PO 12/13/17 13:30 (Xanax) 1 mg BID PRN PO 12/13/17 13:30 (Pulmicort Respule Neb) 0.5 mg Q12HR NEB NEB 12/13/17 20:00 12/20/17 09:00 (Lasix) 40 mg DAILY PO 12/14/17 09:00 12/19/17 10:26 (KCl) 20 meq DAILY PO 12/14/17 09:00 12/19/17 10:26 (Lyrica) 75 mg DAILY PO 12/14/17 09:00 12/19/17 10:23 (Zoloft) 100 mg DAILY PO 12/14/17 09:00 12/19/17 10:26 (Vancomycin 25 Mg/ml Liq) 125 mg QID PO 12/13/17 18:00 12/19/17 18:39 (Vitamin C) 500 mg BID PO 12/13/17 21:00 12/19/17 10:23 (Lactinex) 1 tab TID PO 12/13/17 18:00 12/19/17 13:00 (D50w (Vial) Inj) 50 ml UNSCH PRN IV PUSH 12/13/17 13:30 12/19/17 22:25 (Glucagon Inj) 1 mg UNSCH PRN OTHER 12/13/17 13:30 (NovoLIN R SUPPLEMENTAL SCALE) 1 ACHS SLIDING SCALE SQ 12/13/17 17:00 12/14/17 17:00 Metronidazole 100 ml @ 100 mls/hr Q6H IV 12/13/17 16:00 12/20/17 04:41 (Pill Splitter) 1 ea UNSCH PRN OTHER 12/13/17 13:30 Potassium Chloride 100 ml @ 50 mls/hr Q2H PRN IV 12/13/17 13:30 Potassium Chloride 100 ml @ 50 mls/hr Q2H PRN IV 12/13/17 13:30 (K-Lyte Cl Eff) 50 meq UNSCH PRN PO 12/13/17 13:30 Potassium Chloride 100 ml @ 25 mls/hr UNSCH PRN IV 12/13/17 13:30 Potassium Chloride 100 ml @ 50 mls/hr Q2H PRN IV 12/13/17 13:30 Magnesium Sulfate 4 gm/Sodium Chloride 100 ml @ 50 mls/hr UNSCH PRN IV 12/13/17 13:30 (Mag-Ox) 800 mg UNSCH PRN PO 12/13/17 13:30 Magnesium Sulfate 2 gm/Sodium Chloride 100 ml @ 50 mls/hr UNSCH PRN IV 12/13/17 13:30 (K-Phos) 2,000 mg Q4H PRN PO 12/13/17 13:30 Sodium Phosphate 30 mmol/Sodium Chloride 250 ml @ 42 mls/hr UNSCH PRN IV 12/13/17 13:30 (K-Phos) 2,000 mg UNSCH PRN PO/TUBE 12/13/17 13:27 Potassium Phosphate 30 mmol/ Sodium Chloride 260 ml @ 42 mls/hr UNSCH PRN IV 12/13/17 13:27 (Xarelto) 10 mg DAILY PO 12/14/17 09:00 12/19/17 10:23 (Mycostatin Powder) 1 applic Q12HR TOPICAL 12/13/17 21:00 12/19/17 21:42 (Trandate Inj) 10 mg Q1HR PRN IV PUSH 12/13/17 17:00 (Nitroglycerin 2% Oint) 2 inch Q6HR PRN TOPICAL 12/13/17 18:00 (Apresoline Inj) 10 mg Q1HR PRN IV PUSH 12/13/17 17:00 Phenylephrine HCl 160 mg/Dextrose 500 ml @ 7.5 mls/hr TITRATE PRN IV 12/15/17 11:00 12/19/17 22:25 (Brethine Inj) 1 mg UNSCH PRN SQ 12/15/17 10:15 (Bactroban Nasal 2% Oint) 1 applic Taper BID EACH NARE 12/15/17 21:00 12/11/18 20:59 12/19/17 21:43 (Duoneb Neb) 1 ampule Q6HR NEB INH 12/17/17 10:00 12/20/17 08:59 Potassium Chloride/Dextrose/ Sod Cl 1,000 ml @ 30 mls/hr Q24H IV 12/19/17 21:00 12/19/17 22:25 (Lopressor) 12.5 mg Q12HR PO 12/19/17 21:00 (Proamatine) 10 mg Q8H PO 12/19/17 21:00 (Cardizem) 15 mg BID PO 12/19/17 21:00 Doxycycline Hyclate 200 mg/ Sodium Chloride 250 ml @ 166.667 mls/hr Q12H IV 12/20/17 02:00 12/20/17 02:41 Ceftazidime/ Avibactam 0.94 gm/ Sodium Chloride 50 ml @ 25 mls/hr Q12HR IV 12/20/17 13:00 (SoluMEDROL INJ) 40 mg BID IV 12/20/17 21:00 Family History Father with heart disease, diabetes and emphysema. Mother with psychiatric issues Social History Resides in the prison No smoking Denies alcohol abuse Denies illicit drugs Physical Exam Vital Signs Vital Signs Date Time Temp Pulse Resp B/P (MAP) Pulse Ox O2 Delivery O2 Flow Rate FiO2 12/20/17 09:00 99 30 12/20/17 06:00 122 12/20/17 04:00 97.7 132 10 102/64 (77) 100 12/20/17 04:00 132 12/20/17 03:14 100 BiPAP 30 12/20/17 03:14 100 30 12/20/17 02:49 129 150/69 12/20/17 02:41 134 141/72 12/20/17 02:26 132 127/60 12/20/17 02:00 115 12/20/17 01:51 104 106/55 12/20/17 01:30 111 116/61 12/20/17 01:22 105 126/60 12/20/17 01:08 104 113/66 12/20/17 00:52 108 121/61 12/20/17 00:30 120 128/58 12/20/17 00:00 106 12/20/17 00:00 97.8 106 11 122/60 (80) 99 12/19/17 23:30 112 106/62 12/19/17 22:25 116 98/54 12/19/17 22:00 123 12/19/17 21:38 100 30 12/19/17 21:28 100 Nasal Cannula 3.00 12/19/17 20:00 98.0 121 14 110/53 (72) 100 12/19/17 20:00 121 12/19/17 18:00 125 12/19/17 16:00 123 12/19/17 16:00 97.9 123 15 110/48 (68) 100 12/19/17 14:00 119 12/19/17 12:00 133 12/19/17 12:00 98.5 133 15 117/65 (82) 100 Physical Exam GENERAL: Patient is an obese, well-developed female, awake and alert, looks comfortable at rest, has a BiPAP mask. SKIN: Cool and dry. No generalized rash, no ecchymoses and no evidence of embolic lesions. HEAD: Atraumatic. Normocephalic. No temporal wasting, or tenderness. EYES: Webb conjunctiva. No petechia or hemorrhage. Pupils equal, round and reactive to light. Extraocular movements full and intact. No scleral icterus. No injection or drainage. EARS, NOSE AND THROAT: Nose without bleeding or purulent nasal discharge. No sinus tenderness. Mucous membranes pink and moist. No oral lesions noted. No exudate. No oral thrush. NECK: Trachea midline. Supple and not tender, no meningeal signs CARDIOVASCULAR: Regular rate and rhythm. No murmurs, rubs or gallops heard RESPIRATORY: Decreased breath sounds bilaterally, rhonchi or wheezing. ABDOMEN: Soft, obese, non-tender, nondistended. Bowel sounds present and normoactive. No guarding. No rebound. No organomegaly. EXTREMITIES: No clubbing, cyanosis. Has bilateral pedal edema. No calf tenderness. . NEUROLOGICAL: Awake and alert. Cranial nerves grossly intact. Motor grossly within normal limits. PSYCHIATRIC: Normal affect, calm and cooperative. LINE: No evidence of infection Laboratory Laboratory Tests Test 12/19/17 21:20 12/20/17 02:00 12/20/17 03:30 12/20/17 03:55 Blood Gas Puncture Site RT RADIAL RT RADIAL RT RADIAL Blood Gas Patient Temperature 98.6 98.6 98.6 Blood Gas HCO3 23 22 23 Blood Gas Base Excess -4.2 -4.5 -3.7 Blood Gas Oxygen Saturation 97 94 96 Arterial Blood pH 7.18 7.21 7.25 Arterial Blood Partial Pressure CO2 65 57 54 Arterial Blood Partial Pressure O2 142 87 112 Arterial Blood Oxygen Content 12.7 11.9 11.9 Arterial Blood Carboxyhemoglobin 1.1 1.4 1.2 Arterial Blood Methemoglobin 1.1 1.1 1.2 Blood Gas Hemoglobin 9.1 8.9 8.7 Oxygen Delivery Device NASAL CANNULA BiPAP BIPAP Blood Gas Liter Flow 3 Blood Gas Ventilator Setting 12IPAP/6EPAP IPAP 16 Blood Gas Inspired Oxygen 30 30 White Blood Count 4.4 Red Blood Count 3.07 Hemoglobin 9.0 Hematocrit 27.8 Mean Corpuscular Volume 90.6 Mean Corpuscular Hemoglobin 29.2 Mean Corpuscular Hemoglobin Concent 32.3 Red Cell Distribution Width 17.9 Platelet Count 271 Mean Platelet Volume 8.0 Neutrophils (%) (Auto) 92.3 Lymphocytes (%) (Auto) 4.7 Monocytes (%) (Auto) 2.8 Eosinophils (%) (Auto) 0.1 Basophils (%) (Auto) 0.1 Neutrophils # (Auto) 4.0 Lymphocytes # (Auto) 0.2 Monocytes # (Auto) 0.1 Eosinophils # (Auto) 0.0 Basophils # (Auto) 0.0 CBC Comment DIFF FINAL Differential Comment Blood Urea Nitrogen 12 Creatinine 1.92 Random Glucose 118 Calcium Level 8.2 Sodium Level 145 Potassium Level 4.5 Chloride Level 110 Carbon Dioxide Level 25.7 Anion Gap 9 Estimat Glomerular Filtration Rate 26 B-Type Natriuretic Peptide 612 Test 12/20/17 08:25 Blood Gas Puncture Site RT RADIAL Blood Gas Patient Temperature 98.6 Blood Gas HCO3 22 Blood Gas Base Excess -3.5 Blood Gas Oxygen Saturation 96 Arterial Blood pH 7.28 Arterial Blood Partial Pressure CO2 49 Arterial Blood Partial Pressure O2 100 Arterial Blood Oxygen Content 12.2 Arterial Blood Carboxyhemoglobin 1.3 Arterial Blood Methemoglobin 1.1 Blood Gas Hemoglobin 9.0 Oxygen Delivery Device BIPAP Blood Gas Ventilator Setting IPAP16/EPAP6/PS10 Blood Gas Inspired Oxygen 30 Date/Time Source Procedure Growth Status 12/13/17 12:30 Blood Line Aerobic Blood Culture - Final NO GROWTH IN 5 DAYS Complete 12/13/17 12:30 Blood Line Anaerobic Blood Culture - Final NO GROWTH IN 5 DAYS Complete 12/13/17 12:20 Urine Catheterized Urine Legionella Antigen - Final PRESUMPTIVE NEGATIVE FOR LEGIONELLA P... Complete 12/13/17 12:20 Urine Catheterized Urine Streptococcus pneumoniae Antigen (M - Final PRESUMPTIVE NEGATIVE FOR STREPTOCOCCU... Complete Result Diagram: 12/20/17 0330 12/20/17 0330 Imaging Last Impressions Chest X-Ray 12/20/17 0600 Signed Impressions: Service Date/Time: December 02:09 - CONCLUSION: 1. Stable chest x-ray with persistent nonspecific left basilar opacity which could represent atelectasis, consolidation, and/or pleural fluid. 2. Right IJ line remains present but distal tip is not well-visualized. Perry Kessler MD Upper Extremity Ultrasound 12/13/17 0000 Signed Impressions: Service Date/Time: December 13:43 - CONCLUSION: 1. No deep venous thrombosis in the left upper extremity. 2. Superficial thrombosis of the right cephalic vein. El Nuñez MD Lower Extremity Ultrasound 12/13/17 0000 Signed Impressions: Service Date/Time: December 14:26 - CONCLUSION: Normal examination. Domingo Calderon MD Head CT 12/13/17 0000 Signed Impressions: Service Date/Time: December 13:30 - CONCLUSION: Normal examination. Domingo Calderon MD Assessment and Plan Assessment and Plan IMPRESSION UTI, with Klebsiella Kleb MDR CRE ESBL+ Previous episode od complicated UTI,, has stent in place, had obstruction Known APOLONIA Respiratory failure, chronically on BIPAP mask Obesity Renal insufficiency, chronic Allergy to PCN, tolerates Cephalosporins Hx C diff colitis - recent episode during last admission RECOMMENDATION Repeat UA and C/S CT A/P - may need reevaluation of stent and urology input Change Abx to Avycaz to cover CRE GNR Stop Doxycycline Continue po Vanco Follow new C/S Monitor progress I will follow along with you Thank you for this consultation Marely Plunkett MD Dec 20, 2017 10:20
--- NOTE | 2017-12-20 12:14 | HHI.PR ---
Subjective Remarks Awake and responds to commands and questions. On BiPAP. Was acidotic. No fever. Objective Vital Signs Date Time Temp Pulse Resp B/P (MAP) Pulse Ox O2 Delivery O2 Flow Rate FiO2 12/20/17 09:00 99 30 12/20/17 06:00 122 12/20/17 04:00 97.7 132 10 102/64 (77) 100 12/20/17 04:00 132 12/20/17 03:14 100 BiPAP 30 12/20/17 03:14 100 30 12/20/17 02:49 129 150/69 12/20/17 02:41 134 141/72 12/20/17 02:26 132 127/60 12/20/17 02:00 115 12/20/17 01:51 104 106/55 12/20/17 01:30 111 116/61 12/20/17 01:22 105 126/60 12/20/17 01:08 104 113/66 12/20/17 00:52 108 121/61 12/20/17 00:30 120 128/58 12/20/17 00:00 106 12/20/17 00:00 97.8 106 11 122/60 (80) 99 12/19/17 23:30 112 106/62 12/19/17 22:25 116 98/54 12/19/17 22:00 123 12/19/17 21:38 100 30 12/19/17 21:28 100 Nasal Cannula 3.00 12/19/17 20:00 98.0 121 14 110/53 (72) 100 12/19/17 20:00 121 12/19/17 18:00 125 12/19/17 16:00 123 12/19/17 16:00 97.9 123 15 110/48 (68) 100 12/19/17 14:00 119 I/O 12/19/17 12/19/17 12/19/17 12/20/17 12/20/17 12/20/17 07:00 15:00 23:00 07:00 15:00 23:00 Intake Total 580 ml 1047 ml Output Total 650 ml 200 ml 550 ml Balance -650 ml 380 ml 497 ml Intake Oral 480 ml 0 ml IV Total 100 ml 1047 ml Output Urine Total 650 ml 200 ml 550 ml # Bowel Movements 2 0 Result Diagram: 3/06/01 33012/20/17329 Objective Remarks GENERAL: This is a Obese elderly W/F patient, in no apparent distress. CARDIOVASCULAR: Regular rate and rhythm without murmurs, gallops, or rubs. RESPIRATORY: Diffuse expiratory wheezes, diminished breath sounds bilaterally. GASTROINTESTINAL: Abdomen soft, non-tender,nondistended. Normal active bowel sounds MUSCULOSKELETAL: Extremities without clubbing, cyanosis,but has 2 + edema. NEURO: Alert & Oriented x4 to person, place. Moves all ext x4 Assessment and Plan Assessment and Plan (1) Acute hypercapnic respiratory failure Diagnosis: Principal (2) Hypoglycemia Diagnosis: Principal (3) BMI 50.0-59.9, adult Diagnosis: Principal (4) Afib Diagnosis: Secondary (5) Dyslipidemia Diagnosis: Secondary (6) Peripheral neuropathy Diagnosis: Secondary (7) Diabetes mellitus Diagnosis: Principal (8) Essential hypertension Diagnosis: Principal (9) Hiatal hernia Diagnosis: Secondary (10) Gastroesophageal reflux disease Diagnosis: Secondary (11) Chronic kidney disease (CKD) stage G3a/A3, moderately decreased glomerular filtration rate (GFR) between 45-59 mL/min/1.73 square meter and albuminuria creatinine ratio greater than 300 mg/g Diagnosis: Secondary Plan : 1. BIPAP15/6, FIO2 30 % daytime and HS 2. Continue antibiotics. 3. Taper solumedrol to 40 mg bid. 4. Duonebs qid. 5. CBC,BMP in am 6. PT and OT. 7. Diuretic daily Francoise Poon MD Dec 20, 2017 12:14
--- NOTE | 2017-12-20 13:18 | MB ---
cc: Francoise Poon MD DATE OF CONSULT: 12/19/2017 REASON FOR CONSULTATION: Respiratory failure and sleep apnea. HISTORY OF PRESENT ILLNESS: This 67-year-old extremely obese white female with a history of chronic asthma, COPD, atrial fibrillation, hypertension, and hyperlipidemia was brought to the emergency room with unresponsiveness and altered mental status. The patient apparently was in the hospital just a few days ago and is extremely obese and hypercapnic. She has been in and out of the hospital over the past 3 months and desaturates easily. She was placed on BiPAP and has been started on antibiotics for possible pneumonia. A chest x-ray that was done upon admission a week ago showed evidence of basilar atelectasis and consolidation of the left lung. Over the past few days, the patient did improve some and now on nasal cannula at 4 liters, saturations are 99%. The patient is still lethargic and does not respond appropriately to questions but will nod her head to some questions. She is also having some edema of her upper and lower extremities. PAST HISTORY: The patient's past history includes extreme obesity with a BMI over 40, history of chronic respiratory failure, hypertension, diabetes mellitus type 2, gastroesophageal reflux, peripheral neuropathy, chronic kidney disease, sleep apnea, she has had MRSA pneumonia in the past, double-J stent placement by urology, hiatal hernia repair, appendectomy, previous tracheostomy which was later removed. MEDICATIONS: Med list was reviewed which includes metoprolol, vancomycin, hydrocodone, Xanax, famotidine and Zoloft, Xopenex nebs as well as Lasix 40 mg, Levemir insulin 40 units Sub-Q twice a day, budesonide nebs twice a day 0.5 mg, Flomax 0.4 mg at bedtime, acetylcysteine nebs four times a day. FAMILY HISTORY: Significant for diabetes and COPD. HABITS: The patient does not smoke. No alcohol use. SYSTEM REVIEW: The patient is unable to provide any details. She is lethargic, but awake. PHYSICAL EXAM: GENERAL: This is an extremely obese elderly lady who is laying flat. She has edema of all of her extremities more so on the arms. VITAL SIGNS: Her blood pressure is 138/80, pulse 105, respirations 22, temperature is 98.2. HEENT: Head is normocephalic. Pupils are reactive. Tongue is moist. Throat is mildly injected. Ears, no inflammation. NECK: Supple. No lymphadenopathy. CHEST: Equal movements with decreased excursions. Breath sounds slightly diminished at the bases with wheezes bilaterally. HEART: The heart sounds are irregular, S1 and S2, but no murmur. No S3. ABDOMEN: Soft and obese with no masses. Bowel sounds are faint. EXTREMITIES: Edema 2+ of the legs, 3+ of the right arm and 1-2+ left arm. SKIN: Dry and stretched over the extremities. NEUROLOGIC: The patient is awake. Responds to ____ questions appropriately by nodding her head. She does not move her extremities well. Babinski negative. RECTAL: Exam is deferred. IMPRESSION: 1. Chronic respiratory failure. 2. Extreme obesity and obstructive sleep apnea. 3. Left basilar pneumonia with hypoxemia. 4. Asthma with chronic bronchitis. 5. Diabetes mellitus type 2. 6. Hypertension. 7. Deconditioning. PLAN: The patient has been given antibiotics per infectious disease service. Nebulized DuoNeb solution added four times a day. We will also place her on Solu-Medrol 40 mg q. 8 hours for 2 days[address] We will also place her on nasal cannula during the day and the patient will be given diuretics periodically. Followup chest x-ray to be obtained. CT scan if possible. I will follow the case with you, Dr. Chávez. Thank you for this consultation. V. Diana Poon MD VJD/DL/ , 12:07 PM , 12:56 PM
[2017-12-20] MEDS: cefTAZidime/AVIBACTAM INJ 0.94 GM in SODIUM CHLORIDE 0.9% INJ 50 ML IV SCH ×2 (14:24→20:41)
[2017-12-20] MEDS: DILTIAZEM HCL 30 MG TAB PO SCH ×2 (15:08→20:42)
[2017-12-20] MEDS: FUROSEMIDE 40 MG TAB PO SCH (15:08)
[2017-12-20] MEDS: METOPROLOL TARTRATE 25 MG TAB PO SCH ×2 (15:11→20:42)
--- NOTE | 2017-12-20 16:09 | HHI.CCPN ---
Subjective Remarks/Hospital Course This is a 67-year-old female. Date of admission 12/13/2017. Past medical history includes elevated BMI, chronic asthma on chronic oxygen, atrial fibrillation/rate controlled, hypertension dyslipidemia. Today, patient presents to [facility] emergency department [facility]. She was just discharged from the hospital 12/10/2017 from [facility]. She is morbidly obese with multiple severe chronic illnesses and was both in respiratory distress and decreased responsiveness at the same time. She was noted to be hypoxic with saturations in the e 80s with nasal cannula. Was brought in on BiPAP. Accu-Chek was in the 30s when paramedics found her. Initial GCS was reported as 3. She received some D10 through a right arm PICC line but upon arrival staff felt that the PICC line was not working properly. Patient cannot provide any history or review of systems. She arrives critically ill Patient received D50 and a central line in the right internal jugular was placed by ED physician as no significant access was available. Chest x-ray revealed no acute cardiopulmonary findings. After being placed on BiPAP and receiving glucose patient's mentation is much improved and likely can be removed in the ICU. Less confused when evaluated in the ED. UA is positive. Previous history of Pseudomonas sensitive to aztreonam 3: Currently resting in bed in no acute distress on 3 L nasal cannula. Overnight on BiPAP/Venturi mask currently on 3 L nasal cannula. Difficult to arouse but once arousable does follow commands in all 4 extremities but weakly. Blood sugar 135. ABG currently pending Subjective 12/15: Afebrile. Resting in bed on nasal cannula. Arousable and following commands. Ill-definition due to hypo-tension. I will place arterial line secondary to body habitus. She does not appear septic. She is more awake and alert and attentive today as compared to yesterday. 3: Alert and oriented 3, responding to questions appropriately. Arterial line inability to play secondary to body habitus. Patient remained on phenylephrine during the night but now map remains less than 60 will resume phenylephrine infusion, and initiate Midodrine. 12/17: Hemodynamically stable. Phenylephrine infusion off since last night. MAP 80's. Patient alert and oriented, tolerating diet/breakfast. 12/18: Late entry note. Hemodynamically stable. Decrease FiO2 requirements currently on 2 L nasal cannula O2 saturation 97-98 %. RECONSULT 12/19: Patient became hemodynamically unstable this afternoon requiring reinitiation of phenylephrine infusion currently at 70 mcgs/minute. 12/20: Patient became somnolent last evening noted respiratory acidosis around 2 AM. Patient placed back on BiPAP. ID has been consulted for MDR Klebsiella. Patient awake and alert this afternoon, and denies pain. Objective Vital Signs Date Time Temp Pulse Resp B/P (MAP) Pulse Ox O2 Delivery O2 Flow Rate FiO2 12/20/17 09:00 99 30 12/20/17 08:00 97.8 122 12 115/57 (76) 12/20/17 03:14 BiPAP 12/19/17 21:28 3.00 Intake and Output 12/20/17 12/20/17 12/21/17 08:00 16:00 00:00 Intake Total 847 ml Output Total 550 ml Balance 297 ml Result Diagram: 12/20/17 0330 12/20/17 0330 Other Results Laboratory Tests Test 12/19/17 21:20 12/20/17 02:00 12/20/17 03:55 12/20/17 08:25 Blood Gas Puncture Site RT RADIAL RT RADIAL RT RADIAL RT RADIAL Blood Gas Patient Temperature 98.6 98.6 98.6 98.6 Blood Gas HCO3 23 mmol/L (22-26) 22 mmol/L (22-26) 23 mmol/L (22-26) 22 mmol/L (22-26) Blood Gas Base Excess -4.2 mmol/L (-2-2) -4.5 mmol/L (-2-2) -3.7 mmol/L (-2-2) -3.5 mmol/L (-2-2) Blood Gas Oxygen Saturation 97 % (90-100) 94 % (90-100) 96 % (90-100) 96 % ( 90-100) Arterial Blood pH 7.18 (7.380-7.420) 7.21 (7.380-7.420) 7.25 (7.380-7.420) 7.28 (7.380-7.420) Arterial Blood Partial Pressure CO2 65 mmHg (38-42) 57 mmHg (38-42) 54 mmHg (38-42) 49 mmHg (38-42) Arterial Blood Partial Pressure O2 142 mmHg (61-120) 87 mmHg (61-120) 112 mmHg (61-120) 100 mmHg (61-120) Arterial Blood Oxygen Content 12.7 Vol % (12.0-20.0) 11.9 Vol % (12.0-20.0) 11.9 Vol % (12.0-20.0) 12.2 Vol % (12.0-20.0) Arterial Blood Carboxyhemoglobin 1.1 % (0-4) 1.4 % (0-4) 1.2 % (0-4) 1.3 % (0-4) Arterial Blood Methemoglobin 1.1 % (0-2) 1.1 % (0-2) 1.2 % (0-2) 1.1 % (0-2) Blood Gas Hemoglobin 9.1 G/DL (12.0-16.0) 8.9 G/DL (12.0-16.0) 8.7 G/DL (12.0-16.0) 9.0 G/DL (12.0-16.0) Oxygen Delivery Device NASAL CANNULA BiPAP BIPAP BIPAP Blood Gas Liter Flow 3 L/M Blood Gas Ventilator Setting 12IPAP/6EPAP IPAP 16 IPAP16/EPAP6/PS10 Blood Gas Inspired Oxygen 30 % 30 % 30 % Imaging Last Impressions Chest X-Ray 12/20/17 0600 Signed Impressions: Service Date/Time: December 02:09 - CONCLUSION: 1. Stable chest x-ray with persistent nonspecific left basilar opacity which could represent atelectasis, consolidation, and/or pleural fluid. 2. Right IJ line remains present but distal tip is not well-visualized. Perry Kessler MD Upper Extremity Ultrasound 12/13/17 Signed Impressions: Service Date/Time: December 13:43 - CONCLUSION: 1. No deep venous thrombosis in the left upper extremity. 2. Superficial thrombosis of the right cephalic vein. El Nuñez MD Lower Extremity Ultrasound 12/13/17 Signed Impressions: Service Date/Time: December 14:26 - CONCLUSION: Normal examination. Domingo Calderon MD Head CT 12/13/17 Signed Impressions: Service Date/Time: December 13:30 - CONCLUSION: Normal examination. Domingo Calderon MD Last Impressions Chest X-Ray 12/17/17599 Signed Impressions: Service Date/Time: Sunday, December 17, 2017 03:40 - CONCLUSION: 1. Persistent left lung volume loss with opacity at the left lung base. This could represent atelectasis or airspace consolidation. 2. Right IJ line remains present but distal tip is not adequately visualized on this exam. Perry Kessler MD Upper Extremity Ultrasound 12/13/17 Signed Impressions: Service Date/Time: December 13:43 - CONCLUSION: 1. No deep venous thrombosis in the left upper extremity. 2. Superficial thrombosis of the right cephalic vein. El Nuñez MD Lower Extremity Ultrasound 12/13/17 Signed Impressions: Service Date/Time: December 14:26 - CONCLUSION: Normal examination. Domingo Calderon MD Head CT 12/13/17 Signed Impressions: Service Date/Time: December 13:30 - CONCLUSION: Normal examination. Domingo Calderon MD Last Impressions Chest X-Ray 12/17/17599 Signed Impressions: Service Date/Time: Sunday, December 17, 2017 03:40 - CONCLUSION: 1. Persistent left lung volume loss with opacity at the left lung base. This could represent atelectasis or airspace consolidation. 2. Right IJ line remains present but distal tip is not adequately visualized on this exam. Perry Kessler MD Upper Extremity Ultrasound 12/13/17 Signed Impressions: Service Date/Time: December 13:43 - CONCLUSION: 1. No deep venous thrombosis in the left upper extremity. 2. Superficial thrombosis of the right cephalic vein. El Nuñez MD Lower Extremity Ultrasound 12/13/17 Signed Impressions: Service Date/Time: December 14:26 - CONCLUSION: Normal examination. Domingo Calderon MD Head CT 12/13/17 Signed Impressions: Service Date/Time: December 13:30 - CONCLUSION: Normal examination. Domingo Calderon MD Last Impressions Chest X-Ray 12/16/17599 Signed Impressions: Service Date/Time: Saturday, December 16, 2017 02:40 - CONCLUSION: Stable left lower lung consolidation. Dorian Vasquez MD Upper Extremity Ultrasound 12/13/17 0000 Signed Impressions: Service Date/Time: December 13:43 - CONCLUSION: 1. No deep venous thrombosis in the left upper extremity. 2. Superficial thrombosis of the right cephalic vein. El Nuñez MD Lower Extremity Ultrasound 12/13/17 Signed Impressions: Service Date/Time: December 14:26 - CONCLUSION: Normal examination. Domingo Calderon MD Head CT 12/13/17 Signed Impressions: Service Date/Time: December 13:30 - CONCLUSION: Normal examination. Domingo Calderon MD Last Impressions Chest X-Ray 12/15/17599 Signed Impressions: Service Date/Time: Friday, December 15, 2017 03:58 - CONCLUSION: Persistent left lower lung consolidation. Dorian Vasquez MD Upper Extremity Ultrasound 12/13/17 Signed Impressions: Service Date/Time: December 13:43 - CONCLUSION: 1. No deep venous thrombosis in the left upper extremity. 2. Superficial thrombosis of the right cephalic vein. El Nuñez MD Lower Extremity Ultrasound 12/13/17 Signed Impressions: Service Date/Time: December 14:26 - CONCLUSION: Normal examination. Domingo Calderon MD Head CT 12/13/17 0000 Signed Impressions: Service Date/Time: December 13:30 - CONCLUSION: Normal examination. Domingo Calderon MD Objective Remarks GENERAL: 67-year-old super morbidly obese female resting in bed on BiPAP with no distress SKIN: Warm and dry. HEAD: Atraumatic. Normocephalic. EYES: Pupils equal and round about 3 mm bilaterally and reactive. No scleral icterus. No injection or drainage. ENT: No nasal bleeding or discharge. Mucous membranes pink and moist. NECK: Trachea midline. No JVD. CARDIOVASCULAR: IRR. Distant heart tones. S1, S2. No S4. Without murmur RESPIRATORY: Diminished breath sounds throughout due to body habitus. No wheezing is appreciated. Breath sounds equal bilaterally. GASTROINTESTINAL: Abdomen soft, obese, nontender. Hypoactive bowel sounds are appreciated MUSCULOSKELETAL: Extremities with 2+ bilateral upper and lower extremity edema NEUROLOGICAL: Awake and alert to person place. No obvious cranial nerve deficits. Motor grossly within normal limits. 5/5 muscle strength in the arms and legs. Date of Insertion: Dec 13, 2017 Line: Central Venous Catheter Side: Right Location: Internal, Jugular A/P Assessment and Plan Neuro/Psych: Chronic benzodiazepine use Depression disorder NOS Acute toxic metabolic encephalopathy likely secondary to hypoglycemia/CO2 retention Diabetic neuropathy Chronic pain syndrome with chronic narcotic use Acetaminophen 650 mg p.o. every 6 hours as needed fever/pain 1 through 5 3 Morphine sulfate 2 mg IV every 3 hours as needed pain 6-10- discontinued Continuing alprazolam 1 mg p.o. twice daily as needed anxiety Holding hydrocodone/acetaminophen 5/321 tablet every 6 hours as needed pain Continue sertraline 100 mg p.o. daily for depression Continue pregabalin 75 mg p.o. daily for peripheral neuropathy CT brain 12/13 revealed no acute intracranial findings CV: Atrial fibrillation/chronic Hypertension Currently on low-dose phenylephrine discontinued 12/16.restarted on 12/19 12/19 Midodrine 10mg q 8 hrs Home blood pressure medications include metoprolol 12.5 mg p.o. every 12 hours\ furosemide 40 mg p.o. daily\ diltiazem 90 mg p.o. daily adjusted to 5 mg every 6 hours 2D echocardiogram 12/02 - normal left ventricular size. Wall thickness is measured at the upper limits of normal. The left ventricular systolic function is low normal with an estimated ejection fraction in the range of 50-55%. The left atrial size is mildly dilated. The right atrial size is moderately dilated. There is trace tricuspid valve regurgitation. Resp: Acute hypoxic respiratory failure APOLONIA/OHS History recurrent MRSA pneumonia 3 L nasal cannula for saturations greater than or equal to 90% Maintain BiPAP Currently in albuterol/ipratropium aerosols every 6 hours with albuterol aerosols every 2 hours dyspnea Continue budesonide 0.5 mg/2 mL nebulizers every 12 hours Holding levalbuterol HCL 1.25 mg 3 mL nebs every 4 hours Holding formoterol fumarate 20 mg/2 mL nebs twice daily Chest x-rays and ABGs when clinically indicated Pulmonology following- dr. Ab Dodd GI: BMI greater than 50 Gastroesophageal reflux disease 2200 KCal ADA diet Pantoprazole for GI prophylaxis. Patient is on famotidine 20 mg p.o. daily at home Docusate sodium/senna 1 tablet twice daily for bowel regimen. Patient is on senna 8.6 mg twice daily at home Continue ondansetron 4 mg every 6 hours as needed nausea : Solitario catheter to maintain patency with recent pyelonephritis/GJ placement. Outpatient J stent removal by urology placed during last hospitalization 12/02 Endo: Diabetes mellitus Acute hypoglycemia Holding insulin detemir 40 units twice daily Sliding scale insulin with Novulin R with Accu-Cheks to maintain euglycemia before meals at bedtime. No sliding scale insulin past 24 hours Renal: Chronic kidney disease stage IIIa Creatinine currently 1.88 Avoid nephrotoxic drugs Monitor urine output Accurate I's and O's Heme: Normocytic anemia Chronic Rivaroxaban use Right cephalic vein superficial thrombus Currently stable hemoglobin. No indication for transfusion of blood products at this time. Continue with rivaroxaban 10 mg daily ID: Urinary tract infection/gram-negative eugenio MDR Klebsiella History of MRSA History of C. difficile Pneumonia LLL Currently on vancomycin, ceftazidime and metronidazole On oral vancomycin 4 additional days for C. difficile 3 ID consulted Pertinent cultures Blood cultures 2, 3 no growth to date Urine Legionella pneumococcal antigens negative Urine culture 3/ Klebsiella MDR MSK: Elevated BMI Weight loss encouraged FEN: Replace electrolytes as clinically indicated Receiving 2 g mag sulfate IV 1 now. Recheck in a.m. Start calcium acetate 667 mg p.o. 3 times daily for 2 days. Recheck phosphorus in a.m. Access -Right IJ CVL day #8 placed the ED 3/ Prophylaxis -GI -pantoprazole -DVT -SCD/rivaroxaban Level 3 Discussed with AUTHOR at bedside Physician Amelia Delgadillo MD Dec 20, 2017 16:09
[2017-12-20] MEDS: MUPIROCIN 2% OINT 1 APPLIC/GM SYR EACH NARE SCH ×2 (20:41→21:00)
[2017-12-20] MEDS: ASCORBIC ACID 500 MG TAB PO SCH ×2 (20:41→21:53)
--- NOTE | 2017-12-20 22:41 | RADRPT ---
EXAM DATE/TIME: 12/20/2017 21:20 [facility] COMPARISON: CT ABDOMEN & PELVIS W/O CONTRAST, November 16, 2017, 8:54. CT ABDOMEN & PELVIS W/O CONTRAST, 2017, 17:16. INDICATIONS : Pyelnephrosis. Stent in place. ORAL CONTRAST: No oral contrast ingested. RADIATION DOSE: 31.66 CTDIvol (mGy) ; Patient body habitus MEDICAL HISTORY : Cerebrovascular disease. Hypertension. Hernia, hiatal. SURGICAL HISTORY : Appendectomy. Stent ENCOUNTER: Subsequent ACUITY: 1 month PAIN SCALE: Non-responsive LOCATION: abdomen TECHNIQUE: Volumetric scanning of the abdomen and pelvis was performed. Using automated exposure control and ad justment of the mA and/or kV according to patient size, radiation dose was kept as low as reasonably achievable to obtain optimal diagnostic quality images. DICOM format image data is available electro nically for review and comparison. FINDINGS: Limited quality examination due to the patient's size exceeding the field of view of the scanner and with the right arm in the [id number] of this scan. Right double-J stent in place with the proxima l loop in the renal pelvis and the distal loop in the urinary bladder. No evidence hydronephrosis on either side. There is a large mass arising from the midpole the left kidney measuring 6.8 cm, stabl e in appearance from prior. Multiple calcified gallstones with central gas, stable from prior. The abdominal aorta is normal in dimension. No evidence of free fluid. Stable size of bilateral effusio ns and patchy consolidation/atelectasis of the adjacent lungs.. CONCLUSION: Stable appearance to the CT abdomen/pelvis were compared to 11/26/17. Right double-J stent in place, multiple gallstones, left renal mass, left lateral ventral hernia. Dorian Vasquez MD on December 20, 2017 at 22:35 Board Certified Radiologist. This report was verified electronically.
[2017-12-21] VITALS (22 sets, daily range): BP systolic 93–117; BP diastolic 53–71; PULSE 101–119; RESP 13–15; TEMP 98.4–98.7; O2SAT 96–100
[2017-12-21] MEDS: CHLORHEXIDINE GLUCONATE 2 % 1 PACK (2 CLOTHS) TOP SCH (03:38)
[2017-12-21] MEDS: MIDODRINE 5 MG TAB PO SCH ×3 (03:38→21:23)
[2017-12-21] MEDS: D5-1/2 NS + KCL 10 MEQ INJ 1,000 ML IV SCH (03:38)
[2017-12-21] MEDS: metroNIDAZOLE 500 MG INJ 100 ML IV SCH (03:38)
[2017-12-21] MEDS: RESP: ALBUTEROL 2.5 MG/IPRATROPIUM 0.5 MG NEB (SCH) INH ×2 (03:45→08:14)
[2017-12-21 04:16] LABS: BICARBONATE 25.5 MEQ/L (21.0-32.0); CALCIUM 7.9 MG/DL (8.5-10.1); CREATININE 1.96 MG/DL (0.50-1.00); MAGNESIUM 1.7 MG/DL (1.5-2.5); PHOSPHORUS 3.6 MG/DL (2.5-4.9)
[2017-12-21 04:18] LABS: RANDOM VANCOMYCIN 19.2 COMMENT
--- NOTE | 2017-12-21 06:10 | RADRPT ---
EXAM DATE/TIME: 12/21/2017 04:24 [facility] COMPARISON: CHEST SINGLE AP, December 20, 2017, 2:09. INDICATIONS : Evaluate for respiratory failure. MEDICAL HISTORY : Hypertension. Diabetes mellitus type II. SURGICAL HISTORY : None. ENCOUNTER: Subsequent ACUITY: 1 week PAIN SCORE: Non-responsive. LOCATION: chest FINDINGS: Basilar consolidation again noted in both lungs, not significantly changed. Suspected small pleural e ffusion on the left. I don't see a pneumothorax. Heart size stable, upper limits of normal. Right internal jugular central venous catheter again seen, tip in the superior vena cava. CONCLUSION: Mild bibasilar consolidation and small left pleural effusion without significant change. Perry Neri MD on December 21, 2017 at 6:07 Board Certified Radiologist. This report was verified electronically.
[2017-12-21] MEDS: INSULIN NovoLIN REGULAR SUPPLEMENTAL SCALE SQ SCH ×4 (08:00→21:00)
[2017-12-21] MEDS: RESP: BUDESONIDE 0.5 MG/2 ML NEB NEB SCH ×2 (08:14→19:47)
[2017-12-21] MEDS: DOCUSATE SODIUM 50 MG/SENNA 8.6 MG TAB PO SCH ×2 (09:00→21:00)
[2017-12-21] MEDS: NYSTATIN 100,000 U/GM PWD 15 GM BTL TOPICAL SCH ×2 (09:00→21:23)
[2017-12-21] MEDS: SERTRALINE HCL 100 MG TAB PO SCH (09:00)
[2017-12-21] MEDS: PREGABALIN 75 MG CAP PO SCH (09:00)
[2017-12-21] MEDS: MUPIROCIN 2% OINT 1 APPLIC/GM SYR EACH NARE SCH ×2 (09:00→21:22)
[2017-12-21] MEDS: ASCORBIC ACID 500 MG TAB PO SCH ×2 (09:00→21:23)
[2017-12-21] MEDS: LACTOBACILLUS ACIDOPHILUS TAB PO SCH ×3 (09:00→18:26)
[2017-12-21] MEDS: DILTIAZEM HCL 30 MG TAB PO SCH ×2 (09:00→21:22)
[2017-12-21] MEDS: METOPROLOL TARTRATE 25 MG TAB PO SCH ×2 (09:00→21:23)
[2017-12-21] MEDS: VANCOMYCIN 25 MG/ML SOLN 100 ML BOTTLE PO SCH ×4 (09:01→21:23)
[2017-12-21] MEDS: PANTOPRAZOLE SOD 40 MG DELAYED RELEASE TAB PO SCH (09:01)
[2017-12-21] MEDS: POTASSIUM CHLORIDE 20 MEQ CONTROLLED RELEASE TAB PO SCH (09:01)
[2017-12-21] MEDS: RIVAROXABAN 10 MG TAB PO SCH (09:01)
[2017-12-21] MEDS: methylPREDNISolone SOD SUCC 40 MG/1 ML VIAL IV SCH ×2 (09:01→21:22)
[2017-12-21] MEDS: FUROSEMIDE 40 MG TAB PO SCH (09:01)
[2017-12-21] MEDS: cefTAZidime/AVIBACTAM INJ 0.94 GM in SODIUM CHLORIDE 0.9% INJ 50 ML IV SCH ×2 (09:02→21:22)
[2017-12-21] MEDS: SODIUM CHLORIDE 0.9% FLUSH 10 ML FLUSH IV FLUSH SCH ×2 (09:02→21:22)
--- NOTE | 2017-12-21 09:17 | HHI.IDPN ---
Subjective Subjective Remarks Patient is a 67-year-old female, resides in the [facility], brought into the hospital after she was found unresponsive. She had a recent hospitalization where she was diagnosed to have sepsis related to complicated UTI. During that hospitalization she underwent stent placement. She also had C. difficile colitis during that admission. Patient states that she uses a BiPAP machine in the [facility] usually when she is sleeping. She is nonambulatory. Denies any significant cough or congestion. No chest pain. There was no mention of any fever or chills or sweats. When she also came to the hospital this time she was on pressors for hypotension. She improved clinically and her hemodynamics stabilize. However yesterday she went hypotensive again, an infectious disease consultation has been requested to evaluate the patient. Notes reviewed Temps ok On nasal O2 this morning Breathing is better CT A/P no hydro, stent in place Repeat urine not sent yet Antibiotics Current Medications Avycaz PO Vanco IV Flagyl Medications (Trade) Dose Ordered Sig/Mirta Route Start Time Stop Time Status Last Admin (NS Flush) 2 ml UNSCH PRN IV FLUSH 12/13/17 13:30 (NS Flush) 2 ml BID IV FLUSH 12/13/17 21:00 12/20/17 20:42 (Tylenol) 650 mg Q6H PRN PO 12/13/17 13:30 12/14/17 09:42 (Protonix) 40 mg DAILY PO 12/14/17 09:00 12/19/17 10:26 (Zofran Inj) 4 mg Q6H PRN IV PUSH 12/13/17 13:30 (Albuterol Neb) 2.5 mg Q2HR NEB PRN INH 12/13/17 13:30 Miscellaneous Information 1 Q361D XX 12/13/17 13:30 12/13/17 13:30 (Chlorhexidine 2% Cloth) Taper DAILY@04 TOP 12/14/17 04:00 12/10/18 03:59 12/21/17 03:38 (Chlorhexidine 2% Cloth) 3 pack UNSCH PRN TOP 12/13/17 13:30 (Zelda-Colace) 1 tab BID PO 12/13/17 21:00 12/19/17 10:23 (Milk Of Magnesia Liq) 30 ml Q12H PRN PO 12/13/17 13:30 (Senokot) 17.2 mg Q12H PRN PO 12/13/17 13:30 (Dulcolax Supp) 10 mg DAILY PRN RECTAL 12/13/17 13:30 (Lactulose Liq) 30 ml DAILY PRN PO 12/13/17 13:30 (Xanax) 1 mg BID PRN PO 12/13/17 13:30 (Pulmicort Respule Neb) 0.5 mg Q12HR NEB NEB 12/13/17 20:00 12/21/17 08:14 (Lasix) 40 mg DAILY PO 12/14/17 09:00 12/20/17 15:08 (KCl) 20 meq DAILY PO 12/14/17 09:00 12/19/17 10:26 (Lyrica) 75 mg DAILY PO 12/14/17 09:00 12/19/17 10:23 (Zoloft) 100 mg DAILY PO 12/14/17 09:00 12/19/17 10:26 (Vancomycin 25 Mg/ml Liq) 125 mg QID PO 12/13/17 18:00 12/20/17 20:41 (Vitamin C) 500 mg BID PO 12/13/17 21:00 12/20/17 21:53 (Lactinex) 1 tab TID PO 12/13/17 18:00 12/19/17 13:00 (D50w (Vial) Inj) 50 ml UNSCH PRN IV PUSH 12/13/17 13:30 12/19/17 22:25 (Glucagon Inj) 1 mg UNSCH PRN OTHER 12/13/17 13:30 (NovoLIN R SUPPLEMENTAL SCALE) 1 ACHS SLIDING SCALE SQ 12/13/17 17:00 12/14/17 17:00 Metronidazole 100 ml @ 100 mls/hr Q6H IV 12/13/17 16:00 12/21/17 03:38 (Pill Splitter) 1 ea UNSCH PRN OTHER 12/13/17 13:30 Potassium Chloride 100 ml @ 50 mls/hr Q2H PRN IV 12/13/17 13:30 Potassium Chloride 100 ml @ 50 mls/hr Q2H PRN IV 12/13/17 13:30 (K-Lyte Cl Eff) 50 meq UNSCH PRN PO 12/13/17 13:30 Potassium Chloride 100 ml @ 25 mls/hr UNSCH PRN IV 12/13/17 13:30 Potassium Chloride 100 ml @ 50 mls/hr Q2H PRN IV 12/13/17 13:30 Magnesium Sulfate 4 gm/Sodium Chloride 100 ml @ 50 mls/hr UNSCH PRN IV 12/13/17 13:30 (Mag-Ox) 800 mg UNSCH PRN PO 12/13/17 13:30 Magnesium Sulfate 2 gm/Sodium Chloride 100 ml @ 50 mls/hr UNSCH PRN IV 12/13/17 13:30 (K-Phos) 2,000 mg Q4H PRN PO 12/13/17 13:30 Sodium Phosphate 30 mmol/Sodium Chloride 250 ml @ 42 mls/hr UNSCH PRN IV 12/13/17 13:30 (K-Phos) 2,000 mg UNSCH PRN PO/TUBE 12/13/17 13:27 Potassium Phosphate 30 mmol/ Sodium Chloride 260 ml @ 42 mls/hr UNSCH PRN IV 12/13/17 13:27 (Xarelto) 10 mg DAILY PO 12/14/17 09:00 12/19/17 10:23 (Mycostatin Powder) 1 applic Q12HR TOPICAL 12/13/17 21:00 12/20/17 21:00 (Trandate Inj) 10 mg Q1HR PRN IV PUSH 12/13/17 17:00 (Nitroglycerin 2% Oint) 2 inch Q6HR PRN TOPICAL 12/13/17 18:00 (Apresoline Inj) 10 mg Q1HR PRN IV PUSH 12/13/17 17:00 Phenylephrine HCl 160 mg/Dextrose 500 ml @ 7.5 mls/hr TITRATE PRN IV 12/15/17 11:00 12/19/17 22:25 (Brethine Inj) 1 mg UNSCH PRN SQ 12/15/17 10:15 (Bactroban Nasal 2% Oint) Taper BID EACH NARE 12/15/17 21:00 12/11/18 20:59 12/20/17 21:00 (Duoneb Neb) 1 ampule Q6HR NEB INH 12/17/17 10:00 12/21/17 08:14 Potassium Chloride/Dextrose/ Sod Cl 1,000 ml @ 30 mls/hr Q24H IV 12/19/17 21:00 12/21/17 03:38 (Lopressor) 12.5 mg Q12HR PO 12/19/17 21:00 12/20/17 20:42 (Proamatine) 10 mg Q8H PO 12/19/17 21:00 12/21/17 03:38 (Cardizem) 15 mg BID PO 12/19/17 21:00 12/20/17 20:42 Ceftazidime/ Avibactam 0.94 gm/ Sodium Chloride 50 ml @ 25 mls/hr Q12HR IV 12/20/17 13:00 12/20/17 20:41 (SoluMEDROL INJ) 40 mg BID IV 12/20/17 21:00 12/20/17 20:42 Lines RIJ TLC Past Medical History Chronic respiratory failure secondary to APOLONIA, OHS and bronchial asthma Atrial fibrillation rate controlled Hypertension Dyslipidemia Gastroesophageal reflux disease Elevated BMI greater than 50 Recurrent MRSA pneumonia Depression Constipation Past Surgical History JJ stent placement by urology Hiatal hernia surgery Appendectomy Percutaneous tracheostomy by Dr. Mullins since decannulated Allergies: Coded Allergies: penicillin G (Unverified Allergy, Severe, 05/29/17) Objective . Vital Signs Date Time Temp Pulse Resp B/P (MAP) Pulse Ox O2 Delivery O2 Flow Rate FiO2 12/21/17 08:15 98 Nasal Cannula 3.00 12/21/17 06:00 115 12/21/17 04:00 98.4 104 15 105/53 (70) 97 12/21/17 04:00 104 12/21/17 03:45 98 30 12/21/17 02:00 101 12/21/17 00:05 97 30 12/21/17 00:00 119 12/21/17 00:00 119 13 117/71 (86) 99 12/20/17 22:00 126 12/20/17 20:13 99 30 12/20/17 20:13 99 BiPAP 30 12/20/17 20:00 117 12/20/17 20:00 98.7 117 12 115/67 (83) 97 12/20/17 18:00 115 12/20/17 16:00 122 12/20/17 16:00 98.0 122 18 115/53 (73) 95 12/20/17 14:00 130 12/20/17 12:00 122 12/20/17 12:00 97.5 122 15 113/55 (74) 98 12/20/17 10:00 122 . Laboratory Tests Test 12/20/17 03:30 12/21/17 03:15 White Blood Count 4.4 TH/MM3 Red Blood Count 3.07 MIL/MM3 Hemoglobin 9.0 GM/DL Hematocrit 27.8 % Mean Corpuscular Volume 90.6 FL Mean Corpuscular Hemoglobin 29.2 PG Mean Corpuscular Hemoglobin Concent 32.3 % Red Cell Distribution Width 17.9 % Platelet Count 271 TH/MM3 Mean Platelet Volume 8.0 FL Neutrophils (%) (Auto) 92.3 % Lymphocytes (%) (Auto) 4.7 % Monocytes (%) (Auto) 2.8 % Eosinophils (%) (Auto) 0.1 % Basophils (%) (Auto) 0.1 % Neutrophils # (Auto) 4.0 TH/MM3 Lymphocytes # (Auto) 0.2 TH/MM3 Monocytes # (Auto) 0.1 TH/MM3 Eosinophils # (Auto) 0.0 TH/MM3 Basophils # (Auto) 0.0 TH/MM3 CBC Comment DIFF FINAL Differential Comment Laboratory Tests Test 12/20/17 03:30 12/20/17 17:28 12/21/17 03:15 Blood Urea Nitrogen 12 MG/DL 12 MG/DL Creatinine 1.92 MG/DL 1.96 MG/DL Random Glucose 118 MG/DL 138 MG/DL Calcium Level 8.2 MG/DL 7.9 MG/DL Sodium Level 145 MEQ/L 146 MEQ/L Potassium Level 4.5 MEQ/L 3.9 MEQ/L Chloride Level 110 MEQ/L 112 MEQ/L Carbon Dioxide Level 25.7 MEQ/L 25.5 MEQ/L Anion Gap 9 MEQ/L 9 MEQ/L Estimat Glomerular Filtration Rate 26 ML/MIN 25 ML/MIN B-Type Natriuretic Peptide 612 PG/ML Lactic Acid Level 1.0 mmol/L 0.8 mmol/L Phosphorus Level 3.6 MG/DL Magnesium Level 1.7 MG/DL Microbiology Date/Time Source Procedure Growth Status 12/20/17 12:13 Blood Peripheral Aerobic Blood Culture Pending Received 12/20/17 12:13 Blood Peripheral Anaerobic Blood Culture Pending Received 12/20/17 12:08 Blood Peripheral Aerobic Blood Culture Pending Received 12/20/17 12:08 Blood Peripheral Anaerobic Blood Culture Pending Received Imaging Last Impressions Chest X-Ray 3/9/18 0600 Signed Impressions: Service Date/Time: Thursday, December 21, 2017 04:24 - CONCLUSION: Mild bibasilar consolidation and small left pleural effusion without significant change. Perry Neri MD Abdomen/Pelvis CT 12/20/17 0000 Signed Impressions: Service Date/Time: December 21:20 - CONCLUSION: Stable appearance to the CT abdomen/pelvis were compared to 11/26/17. Right double-J stent in place, multiple gallstones, left renal mass, left lateral ventral hernia. Dorian Vasquez MD Upper Extremity Ultrasound 12/13/17 0000 Signed Impressions: Service Date/Time: December 13:43 - CONCLUSION: 1. No deep venous thrombosis in the left upper extremity. 2. Superficial thrombosis of the right cephalic vein. El Nuñez MD Lower Extremity Ultrasound 12/13/17 0000 Signed Impressions: Service Date/Time: December 14:26 - CONCLUSION: Normal examination. Domingo Calderon MD Head CT 12/13/17 0000 Signed Impressions: Service Date/Time: December 13:30 - CONCLUSION: Normal examination. Domingo Calderon MD Physical Exam GENERAL: Patient is an obese, well-developed female, awake and alert, looks comfortable at rest, on nasal O2 SKIN: Cool and dry. No generalized rash, no ecchymoses and no evidence of embolic lesions. HEAD: Atraumatic. Normocephalic. No temporal wasting, or tenderness. EYES: [place] conjunctiva. No petechia or hemorrhage. Pupils equal, round and reactive to light. Extraocular movements full and intact. No scleral icterus. No injection or drainage. EARS, NOSE AND THROAT: Nose without bleeding or purulent nasal discharge. No sinus tenderness. Mucous membranes pink and moist. No oral lesions noted. No oral thrush. NECK: Trachea midline. Supple and not tender, no meningeal signs CARDIOVASCULAR: Regular rate and rhythm. No murmurs, rubs or gallops heard RESPIRATORY: Decreased breath sounds bilaterally, rhonchi or wheezing. ABDOMEN: Soft, obese, non-tender, nondistended. Bowel sounds present and normoactive. No guarding. No rebound. No organomegaly. EXTREMITIES: No clubbing, cyanosis. Has bilateral pedal edema. No calf tenderness. . NEUROLOGICAL: Awake and alert. Cranial nerves grossly intact. Motor grossly within normal limits. PSYCHIATRIC: Normal affect, calm and cooperative. LINE: No evidence of infection Assessment & Plan Remarks IMPRESSION UTI, with Klebsiella Kleb MDR CRE ESBL+ Previous episode of complicated UTI,, has stent in place, had obstruction - CT A/P looks ok, stent in place, no hydro Known APOLONIA Respiratory failure, chronically on BIPAP mask Obesity Renal insufficiency, chronic Allergy to PCN, tolerates Cephalosporins Hx C diff colitis - recent episode during last admission RECOMMENDATION Repeat UA and C/S - will reorder since not done yet Continue Avycaz to cover CRE GNR Continue po Vanco Stop IV Flagyl Follow new C/S Monitor progress Marely Plunkett MD Dec 21, 2017 09:17
[2017-12-21 10:01] LABS: AUTOMATED NEUTROPHIL # 3.2 TH/MM3 (1.8-7.7); BASOPHIL % 0.1 % (0.0-2.0); HEMATOCRIT 26.7 % (35.0-46.0); HEMOGLOBIN 8.7 GM/DL (11.6-15.3); LYMPH % 12.7 % (9.0-44.0); LYMPHOCYTE # 0.5 TH/MM3 (1.0-4.8); MEAN CELL VOLUME 90.7 FL (80.0-100.0); MEAN CORPUSCULAR HEMOGLOBIN 29.4 PG (27.0-34.0); MEAN CORPUSCULAR HGB CONC 32.5 % (32.0-36.0); MEAN PLATELET VOLUME 7.9 FL (7.0-11.0); MONO % 4.4 % (0.0-8.0); MONOCYTE # 0.2 TH/MM3 (0-0.9); NEUT % 82.8 % (16.0-70.0); PLATELET COUNT 308 TH/MM3 (150-450); RED BLOOD COUNT 2.94 MIL/MM3 (4.00-5.30); RED CELL DISTRIBUTION WIDTH 18.5 % (11.6-17.2); WHITE BLOOD COUNT 3.8 TH/MM3 (4.0-11.0)
--- NOTE | 2017-12-21 12:15 | HHI.PR ---
Subjective Remarks Awake and responds to well questions. Feels better. Off BiPAP.. No fever. O2 at 3l. Objective Vital Signs Date Time Temp Pulse Resp B/P (MAP) Pulse Ox O2 Delivery O2 Flow Rate FiO2 12/21/17 10:00 113 12/21/17 09:00 114 12/21/17 08:15 98 Nasal Cannula 3.00 12/21/17 08:00 98.7 103 13 94/53 (67) 98 12/21/17 08:00 103 12/21/17 07:00 107 12/21/17 06:00 115 12/21/17 04:00 98.4 104 15 105/53 (70) 97 12/21/17 04:00 104 12/21/17 03:45 98 30 12/21/17 02:00 101 12/21/17 00:05 97 30 12/21/17 00:00 119 12/21/17 00:00 119 13 117/71 (86) 99 12/20/17 22:00 126 12/20/17 20:13 99 30 12/20/17 20:13 99 BiPAP 30 12/20/17 20:00 117 12/20/17 20:00 98.7 117 12 115/67 (83) 97 12/20/17 18:00 115 12/20/17 16:00 122 12/20/17 16:00 98.0 122 18 115/53 (73) 95 12/20/17 14:00 130 I/O 12/20/17 12/20/17 12/20/17 12/21/17 12/21/17 12/21/17 07:00 15:00 23:00 07:00 15:00 23:00 Intake Total 1047 ml 340 ml 1471 ml Output Total 550 ml 300 ml 600 ml Balance 497 ml 40 ml 871 ml Intake Oral 0 ml 240 ml IV Total 1047 ml 100 ml 1471 ml Output Urine Total 550 ml 300 ml 600 ml # Bowel Movements 0 0 2 Result Diagram: 12/21/17 0938 12/21/17 0315 Objective Remarks GENERAL: This is a Obese elderly W/F patient, in no apparent distress. CARDIOVASCULAR: Regular rate and rhythm without murmurs, gallops, or rubs. RESPIRATORY: Diffuse expiratory wheezes, diminished breath sounds bilaterally. Occ Crackles + GASTROINTESTINAL: Abdomen soft, non-tender,nondistended. Normal active bowel sounds MUSCULOSKELETAL: Extremities without clubbing, cyanosis,but has 2 + edema. NEURO: Alert & Oriented x4 to person, place. Moves all ext x4 Assessment and Plan Assessment and Plan (1) Acute hypercapnic respiratory failure Diagnosis: Principal (2) Hypoglycemia Diagnosis: Principal (3) BMI 50.0-59.9, adult Diagnosis: Principal (4) Afib Diagnosis: Secondary (5) Dyslipidemia Diagnosis: Secondary (6) Peripheral neuropathy Diagnosis: Secondary (7) Diabetes mellitus Diagnosis: Principal (8) Essential hypertension Diagnosis: Principal (9) Hiatal hernia Diagnosis: Secondary (10) Gastroesophageal reflux disease Diagnosis: Secondary (11) Chronic kidney disease (CKD) stage G3a/A3, moderately decreased glomerular filtration rate (GFR) between 45-59 mL/min/1.73 square meter and albuminuria creatinine ratio greater than 300 mg/g Diagnosis: Secondary Plan : 1. BIPAP15/6, FIO2 30 % at HS 2. Continue antibiotics. 3. Cont solumedrol 40 mg bid. 4. Duonebs qid. 5. O2 3L daytime 6. PT and OT. 7. Cont Diuretic daily 8. Will Arrange home BiPAP . Francoise Poon MD Dec 21, 2017 12:15
[2017-12-21 15:30] LABS: BACTERIA, URINE MOD /hpf; BILIRUBIN, URINE NEG (NEG); BLOOD, URINE SMALL (NEG); GLUCOSE,URINE NEG (NEG); HYALINE CAST, URINE 16 /lpf (RARE); KETONE, URINE NEG (NEG); NITRITE,URINE NEG (NEG); PH, URINE 5.5 (5.0-8.5); SQUAMOUS EPITHELIAL CELL URINE 1 /hpf (0-5); TRANSITIONAL EPI CELLS, URINE 1 /hpf; URINE COLOR YELLOW (YELLW/STRAW); URINE LEUKOCYTE ESTERASE LARGE (NEG); WHITE BLOOD CELL CLUMPS MANY
--- NOTE | 2017-12-21 17:21 | HHI.CCPN ---
Subjective Remarks/Hospital Course This is a 67-year-old female. Date of admission 12/13/2017. Past medical history includes elevated BMI, chronic asthma on chronic oxygen, atrial fibrillation/rate controlled, hypertension dyslipidemia. Today, patient presents to [facility] emergency department after being [facility] unresponsive at the [facility]. She was just discharged from the hospital 12/10/2017 from [facility]. She is morbidly obese with multiple severe chronic illnesses and was both in respiratory distress and decreased responsiveness at the same time. She was noted to be hypoxic with saturations in the e 80s with nasal cannula. Was brought in on BiPAP. Accu-Chek was in the 30s when paramedics found her. Initial GCS was reported as 3. She received some D10 through a right arm PICC line but upon arrival staff felt that the PICC line was not working properly. Patient cannot provide any history or review of systems. She arrives critically ill Patient received D50 and a central line in the right internal jugular was placed by ED physician as no significant access was available. Chest x-ray revealed no acute cardiopulmonary findings. After being placed on BiPAP and receiving glucose patient's mentation is much improved and likely can be removed in the ICU. Less confused when evaluated in the ED. UA is positive. Previous history of Pseudomonas sensitive to aztreonam 3: Currently resting in bed in no acute distress on 3 L nasal cannula. Overnight on BiPAP/Venturi mask currently on 3 L nasal cannula. Difficult to arouse but once arousable does follow commands in all 4 extremities but weakly. Blood sugar 135. ABG currently pending Subjective 12/15: Afebrile. Resting in bed on nasal cannula. Arousable and following commands. Ill-definition due to hypo-tension. I will place arterial line secondary to body habitus. She does not appear septic. She is more awake and alert and attentive today as compared to yesterday. 3: Alert and oriented 3, responding to questions appropriately. Arterial line inability to play secondary to body habitus. Patient remained on phenylephrine during the night but now map remains less than 60 will resume phenylephrine infusion, and initiate Midodrine. 12/17: Hemodynamically stable. Phenylephrine infusion off since last night. MAP 80's. Patient alert and oriented, tolerating diet/breakfast. 12/18: Late entry note. Hemodynamically stable. Decrease FiO2 requirements currently on 2 L nasal cannula O2 saturation 97-98 %. RECONSULT 12/19: Patient became hemodynamically unstable this afternoon requiring reinitiation of phenylephrine infusion currently at 70 mcgs/minute. 12/20: Patient became somnolent last evening noted respiratory acidosis around 2 AM. Patient placed back on BiPAP. ID has been consulted for MDR Klebsiella. Patient awake and alert this afternoon, and denies pain. 12/21: Respiratory status much improved, and to remain on BiPAP at night while sleeping. ABGs improved. Patient hemodynamically stable no vasopressor requirements at this time. IV fluids discontinued. Patient tolerating a diet. Objective Vital Signs Date Time Temp Pulse Resp B/P (MAP) Pulse Ox O2 Delivery O2 Flow Rate FiO2 12/21/17 16:00 117 12/21/17 16:00 98.7 15 103/55 (71) 96 12/21/17 08:15 Nasal Cannula 3.00 12/21/17 03:45 30 Intake and Output 12/21/17 12/21/17 12/22/17 08:00 16:00 00:00 Intake Total 1421 ml Output Total 600 ml Balance 821 ml Result Diagram: 12/21/17 0938 12/21/17 0315 Imaging Last Impressions Chest X-Ray 12/20/17 0600 Signed Impressions: Service Date/Time: December 02:09 - CONCLUSION: 1. Stable chest x-ray with persistent nonspecific left basilar opacity which could represent atelectasis, consolidation, and/or pleural fluid. 2. Right IJ line remains present but distal tip is not well-visualized. Perry Kessler MD Upper Extremity Ultrasound 12/13/17 0000 Signed Impressions: Service Date/Time: December 13:43 - CONCLUSION: 1. No deep venous thrombosis in the left upper extremity. 2. Superficial thrombosis of the right cephalic vein. El Nuñez MD Lower Extremity Ultrasound 12/13/17 0000 Signed Impressions: Service Date/Time: December 14:26 - CONCLUSION: Normal examination. Domingo Calderon MD Head CT 12/13/17 0000 Signed Impressions: Service Date/Time: December 13:30 - CONCLUSION: Normal examination. Domingo Calderon MD Last Impressions Chest X-Ray 12/17/17 06 Signed Impressions: Service Date/Time: Sunday, December 17, 2017 03:40 - CONCLUSION: 1. Persistent left lung volume loss with opacity at the left lung base. This could represent atelectasis or airspace consolidation. 2. Right IJ line remains present but distal tip is not adequately visualized on this exam. Perry Kessler MD Upper Extremity Ultrasound 12/13/17 Signed Impressions: Service Date/Time: December 13:43 - CONCLUSION: 1. No deep venous thrombosis in the left upper extremity. 2. Superficial thrombosis of the right cephalic vein. El Nuñez MD Lower Extremity Ultrasound 12/13/17 Signed Impressions: Service Date/Time: December 14:26 - CONCLUSION: Normal examination. Domingo Calderon MD Head CT 12/13/17 Signed Impressions: Service Date/Time: December 13:30 - CONCLUSION: Normal examination. Domingo Calderon MD Last Impressions Chest X-Ray 12/17/17 06 Signed Impressions: Service Date/Time: Sunday, December 17, 2017 03:40 - CONCLUSION: 1. Persistent left lung volume loss with opacity at the left lung base. This could represent atelectasis or airspace consolidation. 2. Right IJ line remains present but distal tip is not adequately visualized on this exam. Perry Kessler MD Upper Extremity Ultrasound 12/13/17 Signed Impressions: Service Date/Time: December 13:43 - CONCLUSION: 1. No deep venous thrombosis in the left upper extremity. 2. Superficial thrombosis of the right cephalic vein. El Nuñez MD Lower Extremity Ultrasound 12/13/17 Signed Impressions: Service Date/Time: December 14:26 - CONCLUSION: Normal examination. Domingo Calderon MD Head CT 12/13/17 Signed Impressions: Service Date/Time: December 13:30 - CONCLUSION: Normal examination. Domingo Calderon MD Last Impressions Chest X-Ray 12/16/17 06 Signed Impressions: Service Date/Time: Saturday, December 16, 2017 02:40 - CONCLUSION: Stable left lower lung consolidation. Dorian Vasquez MD Upper Extremity Ultrasound 12/13/17 Signed Impressions: Service Date/Time: December 13:43 - CONCLUSION: 1. No deep venous thrombosis in the left upper extremity. 2. Superficial thrombosis of the right cephalic vein. El Nuñez MD Lower Extremity Ultrasound 12/13/17 Signed Impressions: Service Date/Time: December 14:26 - CONCLUSION: Normal examination. Domingo Calderon MD Head CT 12/13/17 Signed Impressions: Service Date/Time: December 13:30 - CONCLUSION: Normal examination. Domingo Calderon MD Last Impressions Chest X-Ray 12/15/17599 Signed Impressions: Service Date/Time: Friday, December 15, 2017 03:58 - CONCLUSION: Persistent left lower lung consolidation. Dorian Vasquez MD Upper Extremity Ultrasound 12/13/17 Signed Impressions: Service Date/Time: December 13:43 - CONCLUSION: 1. No deep venous thrombosis in the left upper extremity. 2. Superficial thrombosis of the right cephalic vein. El Nuñez MD Lower Extremity Ultrasound 12/13/17 Signed Impressions: Service Date/Time: December 14:26 - CONCLUSION: Normal examination. Domingo Calderon MD Head CT 12/13/17 Signed Impressions: Service Date/Time: December 13:30 - CONCLUSION: Normal examination. Domingo Calderon MD Objective Remarks GENERAL: 67-year-old super morbidly obese female resting in bed on N/C with no distress, finding to questions appropriately SKIN: Warm and dry. HEAD: Atraumatic. Normocephalic. EYES: Pupils equal and round about 3 mm bilaterally and reactive. No scleral icterus. No injection or drainage. ENT: No nasal bleeding or discharge. Mucous membranes pink and moist. NECK: Trachea midline. No JVD. CARDIOVASCULAR: IRR. Distant heart tones. S1, S2. No S4. Without murmur RESPIRATORY: Diminished breath sounds throughout due to body habitus. No wheezing is appreciated. Breath sounds equal bilaterally. GASTROINTESTINAL: Abdomen soft, obese, nontender. Hypoactive bowel sounds are appreciated MUSCULOSKELETAL: Extremities with 2+ bilateral upper and lower extremity edema NEUROLOGICAL: Awake and alert to person place. No obvious cranial nerve deficits. Motor grossly within normal limits. 5/5 muscle strength in the arms and legs. Date of Insertion: Dec 13, 2017 Line: Central Venous Catheter Side: Right Location: Internal, Jugular A/P Assessment and Plan Neuro/Psych: Chronic benzodiazepine use Depression disorder NOS Acute toxic metabolic encephalopathy likely secondary to hypoglycemia/CO2 retention Diabetic neuropathy Chronic pain syndrome with chronic narcotic use Acetaminophen 650 mg p.o. every 6 hours as needed fever/pain 1 through 5 12/17 Morphine sulfate 2 mg IV every 3 hours as needed pain 6-10- discontinued Continuing alprazolam 1 mg p.o. twice daily as needed anxiety Holding hydrocodone/acetaminophen 5/321 tablet every 6 hours as needed pain Continue sertraline 100 mg p.o. daily for depression Continue pregabalin 75 mg p.o. daily for peripheral neuropathy CT brain 12/13 revealed no acute intracranial findings CV: Atrial fibrillation/chronic Hypertension Currently on low-dose phenylephrine discontinued 12/16.restarted on 12/19 discontinued 12/20 12/19 Midodrine 10mg q 8 hrs Home blood pressure medications include metoprolol 12.5 mg p.o. every 12 hours\ furosemide 40 mg p.o. daily\ diltiazem 90 mg p.o. daily adjusted to 5 mg every 6 hours 2D echocardiogram 12/02 - normal left ventricular size. Wall thickness is measured at the upper limits of normal. The left ventricular systolic function is low normal with an estimated ejection fraction in the range of 50-55%. The left atrial size is mildly dilated. The right atrial size is moderately dilated. There is trace tricuspid valve regurgitation. Resp: Acute hypoxic respiratory failure APOLONIA/OHS History recurrent MRSA pneumonia 3 L nasal cannula for saturations greater than or equal to 90% Maintain BiPAP Currently in albuterol/ipratropium aerosols every 6 hours with albuterol aerosols every 2 hours dyspnea Continue budesonide 0.5 mg/2 mL nebulizers every 12 hours Holding levalbuterol HCL 1.25 mg 3 mL nebs every 4 hours Holding formoterol fumarate 20 mg/2 mL nebs twice daily Chest x-rays and ABGs when clinically indicated Pulmonology following- dr. Ab Dodd GI: BMI greater than 50 Gastroesophageal reflux disease 2200 KCal ADA diet Pantoprazole for GI prophylaxis. Patient is on famotidine 20 mg p.o. daily at home Docusate sodium/senna 1 tablet twice daily for bowel regimen. Patient is on senna 8.6 mg twice daily at home Continue ondansetron 4 mg every 6 hours as needed nausea : Solitario catheter to maintain patency with recent pyelonephritis/GJ placement. Outpatient J stent removal by urology placed during last hospitalization 12/02 Endo: Diabetes mellitus Acute hypoglycemia Holding insulin detemir 40 units twice daily Sliding scale insulin with Novulin R with Accu-Cheks to maintain euglycemia before meals at bedtime. No sliding scale insulin past 24 hours Renal: Chronic kidney disease stage IIIa Creatinine currently 1.88->1.96 Avoid nephrotoxic drugs Monitor urine output Accurate I's and O's Heme: Normocytic anemia Chronic Rivaroxaban use Right cephalic vein superficial thrombus Currently stable hemoglobin. No indication for transfusion of blood products at this time. Continue with rivaroxaban 10 mg daily ID: Urinary tract infection/gram-negative eugenio MDR Klebsiella History of MRSA History of C. difficile Pneumonia LLL Currently on vancomycin, ceftazidime and metronidazole On oral vancomycin 4 additional days for C. difficile 12/20 ID following Pertinent cultures Blood cultures 2, 3 no growth to date Urine Legionella pneumococcal antigens negative Urine culture 12/13 Klebsiella MDR MSK: Elevated BMI Weight loss encouraged FEN: Replace electrolytes as clinically indicated Receiving 2 g mag sulfate IV 1 now. Recheck in a.m. Start calcium acetate 667 mg p.o. 3 times daily for 2 days. Recheck phosphorus in a.m. Access -Right IJ CVL day #9placed the ED 12/13 Prophylaxis -GI -pantoprazole -DVT -SCD/rivaroxaban Level 3 Discussed with FIELD GAUGER at bedside and Case Management Physician Amelia Delgadillo MD Dec 21, 2017 17:21
[2017-12-22] VITALS (24 sets, daily range): BP systolic 97–146; BP diastolic 58–81; PULSE 104–122; RESP 13–18; TEMP 98.4–99.3; O2SAT 91–98
[2017-12-22] MEDS: CHLORHEXIDINE GLUCONATE 2 % 1 PACK (2 CLOTHS) TOP SCH (04:00)
[2017-12-22 05:28] LABS: AUTOMATED NEUTROPHIL # 4.1 TH/MM3 (1.8-7.7); BASOPHIL % 0.2 % (0.0-2.0); HEMATOCRIT 26.8 % (35.0-46.0); HEMOGLOBIN 8.8 GM/DL (11.6-15.3); LYMPH % 9.6 % (9.0-44.0); LYMPHOCYTE # 0.5 TH/MM3 (1.0-4.8); MEAN CELL VOLUME 90.2 FL (80.0-100.0); MEAN CORPUSCULAR HEMOGLOBIN 29.6 PG (27.0-34.0); MEAN CORPUSCULAR HGB CONC 32.8 % (32.0-36.0); MONOCYTE # 0.2 TH/MM3 (0-0.9); NEUT % 86.2 % (16.0-70.0); PLATELET COUNT 366 TH/MM3 (150-450); RED BLOOD COUNT 2.97 MIL/MM3 (4.00-5.30); RED CELL DISTRIBUTION WIDTH 18.3 % (11.6-17.2); WHITE BLOOD COUNT 4.8 TH/MM3 (4.0-11.0)
[2017-12-22 05:59] LABS: BICARBONATE 24.2 MEQ/L (21.0-32.0); CALCIUM 7.8 MG/DL (8.5-10.1); CREATININE 2.02 MG/DL (0.50-1.00)
[2017-12-22] MEDS: MIDODRINE 5 MG TAB PO SCH ×4 (06:15→23:40)
[2017-12-22] MEDS: RESP: BUDESONIDE 0.5 MG/2 ML NEB NEB SCH ×2 (07:27→19:38)
[2017-12-22] MEDS: INSULIN NovoLIN REGULAR SUPPLEMENTAL SCALE SQ SCH ×4 (08:00→20:28)
[2017-12-22] MEDS: VANCOMYCIN 25 MG/ML SOLN 100 ML BOTTLE PO SCH ×4 (09:00→20:23)
[2017-12-22] MEDS: NYSTATIN 100,000 U/GM PWD 15 GM BTL TOPICAL SCH ×2 (09:00→21:00)
[2017-12-22] MEDS: MUPIROCIN 2% OINT 1 APPLIC/GM SYR EACH NARE SCH ×2 (09:00→21:00)
--- NOTE | 2017-12-22 09:16 | HHI.IDPN ---
Subjective Subjective Remarks Patient is a 67-year-old female, resides in the [facility], brought into the hospital after she was found unresponsive. She had a recent hospitalization where she was diagnosed to have sepsis related to complicated UTI. During that hospitalization she underwent stent placement. She also had C. difficile colitis during that admission. Patient states that she uses a BiPAP machine in the halfway usually when she is sleeping. She is nonambulatory. Denies any significant cough or congestion. No chest pain. There was no mention of any fever or chills or sweats. When she also came to the hospital this time she was on pressors for hypotension. She improved clinically and her hemodynamics stabilize. However yesterday she went hypotensive again, an infectious disease consultation has been requested to evaluate the patient. Notes reviewed D/W RN Temps occ 99+ Doing well from respiratory standpoint Repeat UA still with pyuria UC pending On nasal O2 Breathing is better CT A/P no hydro, stent in place Antibiotics Current Medications Avycaz PO vancomycin Medications (Trade) Dose Ordered Sig/Mirta Route Start Time Stop Time Status Last Admin (NS Flush) 2 ml UNSCH PRN IV FLUSH 12/13/17 13:30 (NS Flush) 2 ml BID IV FLUSH 12/13/17 21:00 12/21/17 21:22 (Tylenol) 650 mg Q6H PRN PO 12/13/17 13:30 12/14/17 09:42 (Protonix) 40 mg DAILY PO 12/14/17 09:00 12/21/17 09:01 (Zofran Inj) 4 mg Q6H PRN IV PUSH 12/13/17 13:30 (Albuterol Neb) 2.5 mg Q2HR NEB PRN INH 12/13/17 13:30 Miscellaneous Information 1 Q361D XX 12/13/17 13:30 12/13/17 13:30 (Chlorhexidine 2% Cloth) Taper DAILY@04 TOP 12/14/17 04:00 12/10/18 03:59 12/21/17 03:38 (Chlorhexidine 2% Cloth) 3 pack UNSCH PRN TOP 12/13/17 13:30 (Zelda-Colace) 1 tab BID PO 12/13/17 21:00 12/21/17 09:00 (Milk Of Magnesia Liq) 30 ml Q12H PRN PO 12/13/17 13:30 (Senokot) 17.2 mg Q12H PRN PO 12/13/17 13:30 (Dulcolax Supp) 10 mg DAILY PRN RECTAL 12/13/17 13:30 (Lactulose Liq) 30 ml DAILY PRN PO 12/13/17 13:30 (Xanax) 1 mg BID PRN PO 12/13/17 13:30 (Pulmicort Respule Neb) 0.5 mg Q12HR NEB NEB 12/13/17 20:00 12/22/17 07:27 (Lasix) 40 mg DAILY PO 12/14/17 09:00 12/21/17 09:01 (KCl) 20 meq DAILY PO 12/14/17 09:00 12/21/17 09:01 (Lyrica) 75 mg DAILY PO 12/14/17 09:00 12/21/17 09:00 (Zoloft) 100 mg DAILY PO 12/14/17 09:00 12/21/17 09:00 (Vancomycin 25 Mg/ml Liq) 125 mg QID PO 12/13/17 18:00 12/21/17 21:23 (Vitamin C) 500 mg BID PO 12/13/17 21:00 12/21/17 21:23 (Lactinex) 1 tab TID PO 12/13/17 18:00 12/21/17 18:26 (D50w (Vial) Inj) 50 ml UNSCH PRN IV PUSH 12/13/17 13:30 12/19/17 22:25 (Glucagon Inj) 1 mg UNSCH PRN OTHER 12/13/17 13:30 (NovoLIN R SUPPLEMENTAL SCALE) 1 ACHS SLIDING SCALE SQ 12/13/17 17:00 12/14/17 17:00 (Pill Splitter) 1 ea UNSCH PRN OTHER 12/13/17 13:30 Potassium Chloride 100 ml @ 50 mls/hr Q2H PRN IV 12/13/17 13:30 Potassium Chloride 100 ml @ 50 mls/hr Q2H PRN IV 12/13/17 13:30 (K-Lyte Cl Eff) 50 meq UNSCH PRN PO 12/13/17 13:30 Potassium Chloride 100 ml @ 25 mls/hr UNSCH PRN IV 12/13/17 13:30 Potassium Chloride 100 ml @ 50 mls/hr Q2H PRN IV 12/13/17 13:30 Magnesium Sulfate 4 gm/Sodium Chloride 100 ml @ 50 mls/hr UNSCH PRN IV 12/13/17 13:30 (Mag-Ox) 800 mg UNSCH PRN PO 12/13/17 13:30 Magnesium Sulfate 2 gm/Sodium Chloride 100 ml @ 50 mls/hr UNSCH PRN IV 12/13/17 13:30 (K-Phos) 2,000 mg Q4H PRN PO 12/13/17 13:30 Sodium Phosphate 30 mmol/Sodium Chloride 250 ml @ 42 mls/hr UNSCH PRN IV 12/13/17 13:30 (K-Phos) 2,000 mg UNSCH PRN PO/TUBE 12/13/17 13:27 Potassium Phosphate 30 mmol/ Sodium Chloride 260 ml @ 42 mls/hr UNSCH PRN IV 12/13/17 13:27 (Xarelto) 10 mg DAILY PO 12/14/17 09:00 12/21/17 09:01 (Mycostatin Powder) 1 applic Q12HR TOPICAL 12/13/17 21:00 12/21/17 21:23 (Trandate Inj) 10 mg Q1HR PRN IV PUSH 12/13/17 17:00 (Nitroglycerin 2% Oint) 2 inch Q6HR PRN TOPICAL 12/13/17 18:00 (Apresoline Inj) 10 mg Q1HR PRN IV PUSH 12/13/17 17:00 Phenylephrine HCl 160 mg/Dextrose 500 ml @ 7.5 mls/hr TITRATE PRN IV 12/15/17 11:00 12/19/17 22:25 (Brethine Inj) 1 mg UNSCH PRN SQ 12/15/17 10:15 (Bactroban Nasal 2% Oint) Taper BID EACH NARE 12/15/17 21:00 12/11/18 20:59 12/21/17 21:22 (Lopressor) 12.5 mg Q12HR PO 12/19/17 21:00 12/21/17 21:23 (Proamatine) 10 mg Q8H PO 12/19/17 21:00 12/22/17 06:15 (Cardizem) 15 mg BID PO 12/19/17 21:00 12/21/17 21:22 Ceftazidime/ Avibactam 0.94 gm/ Sodium Chloride 50 ml @ 25 mls/hr Q12HR IV 12/20/17 13:00 12/21/17 21:22 (SoluMEDROL INJ) 40 mg BID IV 12/20/17 21:00 12/21/17 21:22 Lines RIJ TLC Past Medical History Chronic respiratory failure secondary to APOLONIA, OHS and bronchial asthma Atrial fibrillation rate controlled Hypertension Dyslipidemia Gastroesophageal reflux disease Elevated BMI greater than 50 Recurrent MRSA pneumonia Depression Constipation Past Surgical History JJ stent placement by urology Hiatal hernia surgery Appendectomy Percutaneous tracheostomy by Dr. Mullins since decannulated Allergies: Coded Allergies: penicillin G (Unverified Allergy, Severe, 05/29/17) Objective . Vital Signs Date Time Temp Pulse Resp B/P (MAP) Pulse Ox O2 Delivery O2 Flow Rate FiO2 12/22/17 07:28 96 Nasal Cannula 4.00 12/22/17 06:00 104 12/22/17 05:25 96 30 12/22/17 04:00 119 12/22/17 04:00 98.7 119 16 142/60 (87) 95 12/22/17 02:00 111 12/22/17 01:33 97 30 12/22/17 00:00 109 12/22/17 00:00 99.3 109 13 97/59 (72) 96 12/21/17 22:12 96 30 12/21/17 22:00 116 12/21/17 20:00 98.6 108 15 93/55 (68) 98 12/21/17 20:00 108 12/21/17 19:50 97 Nasal Cannula 3.00 12/21/17 18:00 111 12/21/17 17:00 115 12/21/17 16:00 117 12/21/17 16:00 98.7 117 15 103/55 (71) 96 12/21/17 15:00 115 12/21/17 14:00 117 12/21/17 13:00 112 12/21/17 12:00 98.5 114 14 103/55 (71) 100 12/21/17 12:00 114 12/21/17 10:00 113 . Laboratory Tests Test 12/21/17 09:38 12/22/17 04:55 White Blood Count 3.8 TH/MM3 4.8 TH/MM3 Red Blood Count 2.94 MIL/MM3 2.97 MIL/MM3 Hemoglobin 8.7 GM/DL 8.8 GM/DL Hematocrit 26.7 % 26.8 % Mean Corpuscular Volume 90.7 FL 90.2 FL Mean Corpuscular Hemoglobin 29.4 PG 29.6 PG Mean Corpuscular Hemoglobin Concent 32.5 % 32.8 % Red Cell Distribution Width 18.5 % 18.3 % Platelet Count 308 TH/MM3 366 TH/MM3 Mean Platelet Volume 7.9 FL 8.0 FL Neutrophils (%) (Auto) 82.8 % 86.2 % Lymphocytes (%) (Auto) 12.7 % 9.6 % Monocytes (%) (Auto) 4.4 % 4.0 % Eosinophils (%) (Auto) 0.0 % 0.0 % Basophils (%) (Auto) 0.1 % 0.2 % Neutrophils # (Auto) 3.2 TH/MM3 4.1 TH/MM3 Lymphocytes # (Auto) 0.5 TH/MM3 0.5 TH/MM3 Monocytes # (Auto) 0.2 TH/MM3 0.2 TH/MM3 Eosinophils # (Auto) 0.0 TH/MM3 0.0 TH/MM3 Basophils # (Auto) 0.0 TH/MM3 0.0 TH/MM3 CBC Comment DIFF FINAL DIFF FINAL Differential Comment Laboratory Tests Test 12/20/17 17:28 12/21/17 03:15 12/22/17 04:55 Lactic Acid Level 1.0 mmol/L 0.8 mmol/L Blood Urea Nitrogen 12 MG/DL 16 MG/DL Creatinine 1.96 MG/DL 2.02 MG/DL Random Glucose 138 MG/DL 128 MG/DL Calcium Level 7.9 MG/DL 7.8 MG/DL Phosphorus Level 3.6 MG/DL Magnesium Level 1.7 MG/DL Sodium Level 146 MEQ/L 145 MEQ/L Potassium Level 3.9 MEQ/L 4.2 MEQ/L Chloride Level 112 MEQ/L 112 MEQ/L Carbon Dioxide Level 25.5 MEQ/L 24.2 MEQ/L Anion Gap 9 MEQ/L 9 MEQ/L Estimat Glomerular Filtration Rate 25 ML/MIN 24 ML/MIN Microbiology Date/Time Source Procedure Growth Status 12/20/17 12:13 Blood Peripheral Aerobic Blood Culture - Preliminary Gram Positive Rods Resulted 12/20/17 12:13 Blood Peripheral Anaerobic Blood Culture - Preliminary NO GROWTH IN 1 DAY Resulted 12/20/17 12:08 Blood Peripheral Aerobic Blood Culture - Preliminary NO GROWTH IN 1 DAY Resulted 12/20/17 12:08 Blood Peripheral Anaerobic Blood Culture - Preliminary NO GROWTH IN 1 DAY Resulted 12/21/17 00:00 Urine Clean Catch Urine Culture Pending Received Imaging Last Impressions Chest X-Ray 12/21/17 0600 Signed Impressions: Service Date/Time: Thursday, December 21, 2017 04:24 - CONCLUSION: Mild bibasilar consolidation and small left pleural effusion without significant change. Perry Neri MD Abdomen/Pelvis CT 12/20/17 0000 Signed Impressions: Service Date/Time: December 21:20 - CONCLUSION: Stable appearance to the CT abdomen/pelvis were compared to 11/26/17. Right double-J stent in place, multiple gallstones, left renal mass, left lateral ventral hernia. Dorian Vasquez MD Upper Extremity Ultrasound 12/13/17 0000 Signed Impressions: Service Date/Time: December 13:43 - CONCLUSION: 1. No deep venous thrombosis in the left upper extremity. 2. Superficial thrombosis of the right cephalic vein. El Nuñez MD Lower Extremity Ultrasound 12/13/17 0000 Signed Impressions: Service Date/Time: December 14:26 - CONCLUSION: Normal examination. Domingo Calderon MD Head CT 12/13/17 0000 Signed Impressions: Service Date/Time: December 13:30 - CONCLUSION: Normal examination. Domingo Calderon MD Physical Exam GENERAL: awake and alert, looks comfortable at rest, on nasal O2 SKIN: Cool and dry. No generalized rash, no ecchymoses and no evidence of embolic lesions. HEAD: Atraumatic. Normocephalic. No temporal wasting, or tenderness. EYES: [place] conjunctiva. No petechia or hemorrhage. Pupils equal, round and reactive to light. EOM full and intact. No scleral icterus. EARS, NOSE AND THROAT: Nose without bleeding or purulent nasal discharge. No sinus tenderness. Mucous membranes pink and moist. NECK: Trachea midline. Supple and not tender, no meningeal signs CARDIOVASCULAR: Regular rate and rhythm. No murmurs, rubs or gallops heard RESPIRATORY: Decreased breath sounds bilaterally, rhonchi or wheezing. ABDOMEN: Soft, obese, non-tender, nondistended. Bowel sounds present and normoactive. No guarding. No rebound. EXTREMITIES: No clubbing, cyanosis. Has bilateral pedal edema. No calf tenderness. . NEUROLOGICAL: Awake and alert. Cranial nerves grossly intact. Motor grossly within normal limits. PSYCHIATRIC: Normal affect, calm and cooperative. LINE: No evidence of infection Assessment & Plan Remarks IMPRESSION UTI, with Klebsiella Kleb MDR CRE ESBL+ Previous episode of complicated UTI,, has stent in place, had obstruction - CT A/P looks ok, stent in place, no hydro Known APOLONIA Respiratory failure, chronically on BIPAP mask Obesity Renal insufficiency, chronic Allergy to PCN, tolerates Cephalosporins Hx C diff colitis - recent episode during last admission RECOMMENDATION Continue Avycaz to cover CRE GNR Continue po Vanco Follow new C/S and decide on duration of Abx for her UTI Monitor progress Seems to be back to her baseline pulmonary status D/W Marely Aranda MD Dec 22, 2017 09:16
[2017-12-22] MEDS: SERTRALINE HCL 100 MG TAB PO SCH (09:22)
[2017-12-22] MEDS: METOPROLOL TARTRATE 25 MG TAB PO SCH ×2 (09:22→20:24)
[2017-12-22] MEDS: PANTOPRAZOLE SOD 40 MG DELAYED RELEASE TAB PO SCH (09:22)
[2017-12-22] MEDS: ASCORBIC ACID 500 MG TAB PO SCH ×2 (09:22→20:24)
[2017-12-22] MEDS: PREGABALIN 75 MG CAP PO SCH (09:22)
[2017-12-22] MEDS: POTASSIUM CHLORIDE 20 MEQ CONTROLLED RELEASE TAB PO SCH (09:22)
[2017-12-22] MEDS: RIVAROXABAN 10 MG TAB PO SCH (09:22)
[2017-12-22] MEDS: DOCUSATE SODIUM 50 MG/SENNA 8.6 MG TAB PO SCH ×2 (09:22→21:00)
[2017-12-22] MEDS: DILTIAZEM HCL 30 MG TAB PO SCH ×2 (09:22→20:25)
[2017-12-22] MEDS: FUROSEMIDE 40 MG TAB PO SCH (09:22)
[2017-12-22] MEDS: LACTOBACILLUS ACIDOPHILUS TAB PO SCH ×3 (09:22→17:48)
[2017-12-22] MEDS: SODIUM CHLORIDE 0.9% FLUSH 10 ML FLUSH IV FLUSH SCH ×2 (09:23→20:25)
[2017-12-22] MEDS: methylPREDNISolone SOD SUCC 40 MG/1 ML VIAL IV SCH ×2 (09:23→20:24)
[2017-12-22] MEDS: cefTAZidime/AVIBACTAM INJ 0.94 GM in SODIUM CHLORIDE 0.9% INJ 50 ML IV SCH ×2 (09:29→20:24)
--- NOTE | 2017-12-22 10:36 | HHI.PR ---
Subjective Remarks No events overnight, on 4L oxygen off BIPAP. Afebrile. Objective Vital Signs Vital Signs Date Time Temp Pulse Resp B/P (MAP) Pulse Ox O2 Delivery O2 Flow Rate FiO2 12/22/17 09:00 109 12/22/17 08:00 106 12/22/17 08:00 98.4 106 17 110/58 (75) 98 12/22/17 07:28 96 Nasal Cannula 4.00 12/22/17 07:00 110 12/22/17 06:00 104 12/22/17 05:25 96 30 12/22/17 04:00 119 12/22/17 04:00 98.7 119 16 142/60 (87) 95 12/22/17 02:00 111 12/22/17 01:33 97 30 12/22/17 00:00 109 12/22/17 00:00 99.3 109 13 97/59 (72) 96 12/21/17 22:12 96 30 12/21/17 22:00 116 12/21/17 20:00 98.6 108 15 93/55 (68) 98 12/21/17 20:00 108 12/21/17 19:50 97 Nasal Cannula 3.00 12/21/17 18:00 111 12/21/17 17:00 115 12/21/17 16:00 117 12/21/17 16:00 98.7 117 15 103/55 (71) 96 12/21/17 15:00 115 12/21/17 14:00 117 12/21/17 13:00 112 12/21/17 12:00 98.5 114 14 103/55 (71) 100 12/21/17 12:00 114 I/O 12/21/17 12/21/17 12/21/17 12/22/17 12/22/17 12/22/17 07:00 15:00 23:00 07:00 15:00 23:00 Intake Total 1471 ml 320 ml 650 ml 424 ml Output Total 600 ml 350 ml 250 ml Balance 871 ml 320 ml 300 ml 174 ml Intake Oral 600 ml IV Total 1471 ml 320 ml 50 ml 424 ml Output Urine Total 600 ml 350 ml 250 ml # Bowel Movements 2 2 Result Diagram: 12/22/175 12/22/17454 Other Results Last Impressions Chest X-Ray 12/21/17 0600 Signed Impressions: Service Date/Time: Thursday, December 21, 2017 04:24 - CONCLUSION: Mild bibasilar consolidation and small left pleural effusion without significant change. Perry Neri MD Abdomen/Pelvis CT 12/20/17 0000 Signed Impressions: Service Date/Time: December 21:20 - CONCLUSION: Stable appearance to the CT abdomen/pelvis were compared to 11/26/17. Right double-J stent in place, multiple gallstones, left renal mass, left lateral ventral hernia. Dorian Vasquez MD Upper Extremity Ultrasound 12/13/17 0000 Signed Impressions: Service Date/Time: December 13:43 - CONCLUSION: 1. No deep venous thrombosis in the left upper extremity. 2. Superficial thrombosis of the right cephalic vein. El Nuñez MD Lower Extremity Ultrasound 12/13/17 0000 Signed Impressions: Service Date/Time: December 14:26 - CONCLUSION: Normal examination. Domingo Calderon MD Head CT 12/13/17 0000 Signed Impressions: Service Date/Time: December 13:30 - CONCLUSION: Normal examination. Domingo Calderon MD Objective Remarks GENERAL: Patient is 67 yo lying in bed in NAD SKIN: Warm and dry. HEAD: Normocephalic. EYES: No scleral icterus. No injection or drainage. NECK: Supple, trachea midline. No JVD or lymphadenopathy. CARDIOVASCULAR: Tachycardic without murmurs, gallops, or rubs. RESPIRATORY: Breath sounds equal bilaterally. No accessory muscle use. GASTROINTESTINAL: Abdomen soft, non-tender, nondistended. MUSCULOSKELETAL: No cyanosis, +edema. Neuro: awake and alert A/P Assessment and Plan 1)Acute on chronic hypercapenic resp failure 2)Morbid obesity/APOLONIA/OHS 3)UTI 4)Acute on CKD 5)Afib 6)HTN 7)DM 8)Hx C-diff Plan Continue with oxygen keep sats >92% Bronchodilators, on Solumederol 40mg BID NIPPV PRN and nocturnally qhs CXR: Mild bibasilar consolidation and small left pleural effusion without significant change. Abx per ID ( On Avyxaz, PO vanco) On Lasix 40mg daily, monitor renal function, avoid nephrotoxins GI/DVT prophylaxis- On Xarelto 10mg daily Continue treatment plan Juma Pak MD Dec 22, 2017 10:35
--- NOTE | 2017-12-22 15:23 | HHI.CCPN ---
Subjective Remarks/Hospital Course This is a 67-year-old female. Date of admission 12/13/2017. Past medical history includes elevated BMI, chronic asthma on chronic oxygen, atrial fibrillation/rate controlled, hypertension dyslipidemia. Today, patient presents to [facility] emergency department after being [facility]. She was just discharged from the hospital 12/10/2017 from [facility]. She is morbidly obese with multiple severe chronic illnesses and was both in respiratory distress and decreased responsiveness at the same time. She was noted to be hypoxic with saturations in the e 80s with nasal cannula. Was brought in on BiPAP. Accu-Chek was in the 30s when paramedics found her. Initial GCS was reported as 3. She received some D10 through a right arm PICC line but upon arrival staff felt that the PICC line was not working properly. Patient cannot provide any history or review of systems. She arrives critically ill Patient received D50 and a central line in the right internal jugular was placed by ED physician as no significant access was available. Chest x-ray revealed no acute cardiopulmonary findings. After being placed on BiPAP and receiving glucose patient's mentation is much improved and likely can be removed in the ICU. Less confused when evaluated in the ED. UA is positive. Previous history of Pseudomonas sensitive to aztreonam 3: Currently resting in bed in no acute distress on 3 L nasal cannula. Overnight on BiPAP/Venturi mask currently on 3 L nasal cannula. Difficult to arouse but once arousable does follow commands in all 4 extremities but weakly. Blood sugar 135. ABG currently pending Subjective 12/15: Afebrile. Resting in bed on nasal cannula. Arousable and following commands. Ill-definition due to hypo-tension. I will place arterial line secondary to body habitus. She does not appear septic. She is more awake and alert and attentive today as compared to yesterday. 3: Alert and oriented 3, responding to questions appropriately. Arterial line inability to play secondary to body habitus. Patient remained on phenylephrine during the night but now map remains less than 60 will resume phenylephrine infusion, and initiate Midodrine. 12/17: Hemodynamically stable. Phenylephrine infusion off since last night. MAP 80's. Patient alert and oriented, tolerating diet/breakfast. 12/18: Late entry note. Hemodynamically stable. Decrease FiO2 requirements currently on 2 L nasal cannula O2 saturation 97-98 %. RECONSULT 12/19: Patient became hemodynamically unstable this afternoon requiring reinitiation of phenylephrine infusion currently at 70 mcgs/minute. 12/20: Patient became somnolent last evening noted respiratory acidosis around 2 AM. Patient placed back on BiPAP. ID has been consulted for MDR Klebsiella. Patient awake and alert this afternoon, and denies pain. 12/21: Respiratory status much improved, and to remain on BiPAP at night while sleeping. ABGs improved. Patient hemodynamically stable no vasopressor requirements at this time. IV fluids discontinued. Patient tolerating a diet. 12/22: Patient remains a respiratory acidosis, slightly more lethargic today. Patient placed on BiPAP with exception of meals today. Repeat ABG pending this afternoon Objective Vital Signs Date Time Temp Pulse Resp B/P (MAP) Pulse Ox O2 Delivery O2 Flow Rate FiO2 12/22/17 11:00 115 12/22/17 08:00 98.4 17 110/58 (75) 98 12/22/17 07:28 Nasal Cannula 4.00 12/22/17 05:25 30 Intake and Output 12/22/17 12/22/17 12/23/17 08:00 16:00 00:00 Intake Total 424 ml Output Total 250 ml Balance 174 ml Result Diagram: 12/22/17 0455 12/22/17 0455 Other Results Laboratory Tests Test 12/22/17 05:50 Blood Gas Puncture Site RT RADIAL Blood Gas Patient Temperature 98.6 Blood Gas HCO3 22 mmol/L (22-26) Blood Gas Base Excess -3.9 mmol/L (-2-2) Blood Gas Oxygen Saturation 95 % (90-100) Arterial Blood pH 7.27 (7.380-7.420) Arterial Blood Partial Pressure CO2 50 mmHg (38-42) Arterial Blood Partial Pressure O2 84 mmHg (61-120) Arterial Blood Oxygen Content 13.3 Vol % (12.0-20.0) Arterial Blood Carboxyhemoglobin 1.0 % (0-4) Arterial Blood Methemoglobin 1.0 % (0-2) Blood Gas Hemoglobin 9.9 G/DL (12.0-16.0) Oxygen Delivery Device BiPAP Blood Gas Ventilator Setting IPAP 18/EPAP 6 Blood Gas Inspired Oxygen 30 % Imaging Last Impressions Chest X-Ray 3/8/18 0600 Signed Impressions: Service Date/Time: December 02:09 - CONCLUSION: 1. Stable chest x-ray with persistent nonspecific left basilar opacity which could represent atelectasis, consolidation, and/or pleural fluid. 2. Right IJ line remains present but distal tip is not well-visualized. Perry Kessler MD Upper Extremity Ultrasound 12/13/17 Signed Impressions: Service Date/Time: December 13:43 - CONCLUSION: 1. No deep venous thrombosis in the left upper extremity. 2. Superficial thrombosis of the right cephalic vein. El Nuñez MD Lower Extremity Ultrasound 12/13/17 Signed Impressions: Service Date/Time: December 14:26 - CONCLUSION: Normal examination. Domingo Calderon MD Head CT 12/13/17 Signed Impressions: Service Date/Time: December 13:30 - CONCLUSION: Normal examination. Domingo Calderon MD Last Impressions Chest X-Ray 12/17/17599 Signed Impressions: Service Date/Time: Sunday, December 17, 2017 03:40 - CONCLUSION: 1. Persistent left lung volume loss with opacity at the left lung base. This could represent atelectasis or airspace consolidation. 2. Right IJ line remains present but distal tip is not adequately visualized on this exam. Perry Kessler MD Upper Extremity Ultrasound 12/13/17 Signed Impressions: Service Date/Time: December 13:43 - CONCLUSION: 1. No deep venous thrombosis in the left upper extremity. 2. Superficial thrombosis of the right cephalic vein. El Nuñez MD Lower Extremity Ultrasound 12/13/17 Signed Impressions: Service Date/Time: December 14:26 - CONCLUSION: Normal examination. Domingo Calderon MD Head CT 12/13/17 Signed Impressions: Service Date/Time: December 13:30 - CONCLUSION: Normal examination. Domingo Calderon MD Last Impressions Chest X-Ray 12/17/17599 Signed Impressions: Service Date/Time: Sunday, December 17, 2017 03:40 - CONCLUSION: 1. Persistent left lung volume loss with opacity at the left lung base. This could represent atelectasis or airspace consolidation. 2. Right IJ line remains present but distal tip is not adequately visualized on this exam. Perry Kessler MD Upper Extremity Ultrasound 12/13/17 Signed Impressions: Service Date/Time: December 13:43 - CONCLUSION: 1. No deep venous thrombosis in the left upper extremity. 2. Superficial thrombosis of the right cephalic vein. El Nuñez MD Lower Extremity Ultrasound 12/13/17 Signed Impressions: Service Date/Time: December 14:26 - CONCLUSION: Normal examination. Domingo Calderon MD Head CT 12/13/17 Signed Impressions: Service Date/Time: December 13:30 - CONCLUSION: Normal examination. Domingo Calderon MD Last Impressions Chest X-Ray 12/16/17599 Signed Impressions: Service Date/Time: Saturday, December 16, 2017 02:40 - CONCLUSION: Stable left lower lung consolidation. Dorian Vasquez MD Upper Extremity Ultrasound 12/13/17 Signed Impressions: Service Date/Time: December 13:43 - CONCLUSION: 1. No deep venous thrombosis in the left upper extremity. 2. Superficial thrombosis of the right cephalic vein. El Nuñez MD Lower Extremity Ultrasound 12/13/17 Signed Impressions: Service Date/Time: December 14:26 - CONCLUSION: Normal examination. Domingo Calderon MD Head CT 12/13/17 Signed Impressions: Service Date/Time: December 13:30 - CONCLUSION: Normal examination. Domingo Calderon MD Last Impressions Chest X-Ray 12/15/17 06 Signed Impressions: Service Date/Time: Friday, December 15, 2017 03:58 - CONCLUSION: Persistent left lower lung consolidation. Dorian Vasquez MD Upper Extremity Ultrasound 12/13/17 Signed Impressions: Service Date/Time: December 13:43 - CONCLUSION: 1. No deep venous thrombosis in the left upper extremity. 2. Superficial thrombosis of the right cephalic vein. El Nuñez MD Lower Extremity Ultrasound 12/13/17 0000 Signed Impressions: Service Date/Time: December 14:26 - CONCLUSION: Normal examination. Domingo Calderon MD Head CT 12/13/17 0000 Signed Impressions: Service Date/Time: December 13:30 - CONCLUSION: Normal examination. Domingo Calderon MD Objective Remarks GENERAL: 67-year-old super morbidly obese female resting in bed on N/C with no distress SKIN: Warm and dry. HEAD: Atraumatic. Normocephalic. EYES: Pupils equal and round about 3 mm bilaterally and reactive. No scleral icterus. No injection or drainage. ENT: No nasal bleeding or discharge. Mucous membranes pink and moist. NECK: Trachea midline. No JVD. CARDIOVASCULAR: IRR. Distant heart tones. S1, S2. No S4. Without murmur RESPIRATORY: Diminished breath sounds throughout due to body habitus. No wheezing is appreciated. Breath sounds equal bilaterally. GASTROINTESTINAL: Abdomen soft, obese, nontender. Hypoactive bowel sounds are appreciated MUSCULOSKELETAL: Extremities with 2+ bilateral upper and lower extremity edema NEUROLOGICAL: Awake and alert to person place. No obvious cranial nerve deficits. Motor grossly within normal limits. 5/5 muscle strength in the arms and legs. Date of Insertion: Dec 13, 2017 Line: Central Venous Catheter Side: Right Location: Internal, Jugular A/P Assessment and Plan Neuro/Psych: Chronic benzodiazepine use Depression disorder NOS Acute toxic metabolic encephalopathy likely secondary to hypoglycemia/CO2 retention Diabetic neuropathy Chronic pain syndrome with chronic narcotic use Acetaminophen 650 mg p.o. every 6 hours as needed fever/pain 1 through 5 12/17 Morphine sulfate 2 mg IV every 3 hours as needed pain 6-10- discontinued Continuing alprazolam 1 mg p.o. twice daily as needed anxiety Holding hydrocodone/acetaminophen 5/321 tablet every 6 hours as needed pain Continue sertraline 100 mg p.o. daily for depression Continue pregabalin 75 mg p.o. daily for peripheral neuropathy CT brain 12/13 revealed no acute intracranial findings CV: Atrial fibrillation/chronic Hypertension Currently on low-dose phenylephrine discontinued 12/16.restarted on 12/19 discontinued 3/8 3/7 Midodrine 10mg q 8 hrs Home blood pressure medications include metoprolol 12.5 mg p.o. every 12 hours\ furosemide 40 mg p.o. daily\ diltiazem 90 mg p.o. daily adjusted to 5 mg every 6 hours 2D echocardiogram 12/02 - normal left ventricular size. Wall thickness is measured at the upper limits of normal. The left ventricular systolic function is low normal with an estimated ejection fraction in the range of 50-55%. The left atrial size is mildly dilated. The right atrial size is moderately dilated. There is trace tricuspid valve regurgitation. Resp: Acute hypoxic respiratory failure APOLONIA/OHS History recurrent MRSA pneumonia 3 L nasal cannula for saturations greater than or equal to 90% Maintain BiPAP with exception of meals- ABG 7.27/50/84/22/-3.9 Currently in albuterol/ipratropium aerosols every 6 hours with albuterol aerosols every 2 hours dyspnea Continue budesonide 0.5 mg/2 mL nebulizers every 12 hours Holding levalbuterol HCL 1.25 mg 3 mL nebs every 4 hours Holding formoterol fumarate 20 mg/2 mL nebs twice daily Chest x-rays and ABGs when clinically indicated Pulmonology following- dr. Ab Dodd GI: BMI greater than 50 Gastroesophageal reflux disease 2200 KCal ADA diet Pantoprazole for GI prophylaxis. Patient is on famotidine 20 mg p.o. daily at home Docusate sodium/senna 1 tablet twice daily for bowel regimen. Patient is on senna 8.6 mg twice daily at home Continue ondansetron 4 mg every 6 hours as needed nausea : Solitario catheter to maintain patency with recent pyelonephritis/GJ placement. Outpatient J stent removal by urology placed during last hospitalization 12/02 Endo: Diabetes mellitus Acute hypoglycemia Holding insulin detemir 40 units twice daily Sliding scale insulin with Novulin R with Accu-Cheks to maintain euglycemia before meals at bedtime. No sliding scale insulin past 24 hours Renal: Chronic kidney disease stage IIIa Creatinine slightly more elevated 1.96-> 2.0 Avoid nephrotoxic drugs Monitor urine output Accurate I's and O's Heme: Normocytic anemia Chronic Rivaroxaban use Right cephalic vein superficial thrombus Currently stable hemoglobin. No indication for transfusion of blood products at this time. Continue with rivaroxaban 10 mg daily ID: Urinary tract infection/gram-negative eugenio MDR Klebsiella History of MRSA History of C. difficile Pneumonia LLL Currently on vancomycin, ceftazidime and metronidazole On oral vancomycin 4 additional days for C. difficile 12/20 ID following Pertinent cultures Blood cultures 2, 3 no growth to date Urine Legionella pneumococcal antigens negative Urine culture 12/13 Klebsiella MDR Urine culture 12/21 gram-negative rods MSK: Elevated BMI Weight loss encouraged FEN: Replace electrolytes as clinically indicated Receiving 2 g mag sulfate IV 1 now. Recheck in a.m. Start calcium acetate 667 mg p.o. 3 times daily for 2 days. Recheck phosphorus in a.m. Access -Right IJ CVL day #10 placed the ED 12/13 Prophylaxis -GI -pantoprazole -DVT -SCD/rivaroxaban Level 3 Discussed with KISS MACHINE OPERATOR at bedside Physician Amelia Delgadillo MD Dec 22, 2017 15:23
[2017-12-23] VITALS (28 sets, daily range): BP systolic 101–179; BP diastolic 58–92; PULSE 114–136; RESP 15–21; TEMP 98.2–98.7; O2SAT 93–98
[2017-12-23] MEDS: CHLORHEXIDINE GLUCONATE 2 % 1 PACK (2 CLOTHS) TOP SCH (01:24)
[2017-12-23 04:40] LABS: BICARBONATE 23.2 MEQ/L (21.0-32.0); CALCIUM 8.2 MG/DL (8.5-10.1); CREATININE 2.06 MG/DL (0.50-1.00)
[2017-12-23] MEDS: MIDODRINE 5 MG TAB PO SCH ×3 (05:00→21:00)
--- NOTE | 2017-12-23 05:54 | RADRPT ---
EXAM DATE/TIME: 12/23/2017 03:43 [place] COMPARISON: CHEST SINGLE AP, December 21, 2017, 4:24. INDICATIONS : Shortness of breath, possible pulmonary disease. MEDICAL HISTORY : Hypertension. Diabetes mellitus type II. SURGICAL HISTORY : None. ENCOUNTER: Subsequent ACUITY: 1 month PAIN SCORE: Non-responsive. LOCATION: Bilateral chest FINDINGS: Bibasilar and left upper lobe patchy airspace disease persists, not significantly changed. Small bila teral pleural effusions are suspected, especially on the left. I don't see a pneumothorax. Mild cardiomegaly unchanged. Right internal jugular central venous catheter with tip at atriocaval junction again seen. CONCLUSION: No significant change. Perry Neri MD on December 23, 2017 at 5:52 Board Certified Radiologist. This report was verified electronically.
[2017-12-23] MEDS: RESP: BUDESONIDE 0.5 MG/2 ML NEB NEB SCH ×2 (07:26→19:52)
[2017-12-23] MEDS: MUPIROCIN 2% OINT 1 APPLIC/GM SYR EACH NARE SCH ×2 (07:39→21:00)
[2017-12-23] MEDS: INSULIN NovoLIN REGULAR SUPPLEMENTAL SCALE SQ SCH ×4 (08:00→21:00)
[2017-12-23] MEDS: POTASSIUM CHLORIDE 20 MEQ CONTROLLED RELEASE TAB PO SCH (09:00)
[2017-12-23] MEDS: VANCOMYCIN 25 MG/ML SOLN 100 ML BOTTLE PO SCH ×4 (09:00→21:00)
[2017-12-23] MEDS: METOPROLOL TARTRATE 25 MG TAB PO SCH ×2 (09:00→21:00)
[2017-12-23] MEDS: LACTOBACILLUS ACIDOPHILUS TAB PO SCH ×3 (09:00→18:00)
[2017-12-23] MEDS: DOCUSATE SODIUM 50 MG/SENNA 8.6 MG TAB PO SCH ×2 (09:00→21:00)
[2017-12-23] MEDS: PREGABALIN 75 MG CAP PO SCH (09:00)
[2017-12-23] MEDS: ASCORBIC ACID 500 MG TAB PO SCH ×2 (09:00→21:00)
[2017-12-23] MEDS: PANTOPRAZOLE SOD 40 MG DELAYED RELEASE TAB PO SCH (09:00)
[2017-12-23] MEDS: DILTIAZEM HCL 30 MG TAB PO SCH ×2 (09:00→21:00)
[2017-12-23] MEDS: RIVAROXABAN 10 MG TAB PO SCH (09:00)
[2017-12-23] MEDS: SERTRALINE HCL 100 MG TAB PO SCH (09:00)
--- NOTE | 2017-12-23 09:42 | HHI.PR ---
Subjective Remarks Patient is on BIPAP 16/ with 40% FIO2. ABG early this morning showed acute hypercapnic resp acidosis with PH: 7.25, CO2: 50. She seems little more lethargic this morning. Objective Vital Signs Vital Signs Date Time Temp Pulse Resp B/P (MAP) Pulse Ox O2 Delivery O2 Flow Rate FiO2 12/23/17 07:27 94 40 12/23/17 06:09 98 35 12/23/17 06:00 117 12/23/17 04:00 95 30 12/23/17 04:00 123 12/23/17 04:00 123 18 179/75 (109) 93 12/23/17 03:01 146/83 (104) 12/23/17 02:00 114 12/23/17 01:01 120 12/23/17 01:01 120 12/23/17 01:01 120 12/23/17 00:01 119 18 160/92 (114) 96 12/23/17 00:01 119 12/23/17 00:01 119 12/23/17 00:01 119 12/23/17 00:01 119 12/23/17 00:00 115 12/23/17 00:00 115 20 94 12/23/17 00:00 115 12/23/17 00:00 115 12/23/17 00:00 115 12/22/17 22:01 112 12/22/17 22:00 115 12/22/17 21:00 113 18 143/81 (101) 92 12/22/17 20:00 122 18 135/78 (97) 91 12/22/17 20:00 117 12/22/17 19:38 95 BiPAP 30 12/22/17 19:38 95 30 12/22/17 18:00 110 12/22/17 17:00 106 12/22/17 16:00 98.5 109 18 146/61 (89) 93 12/22/17 16:00 109 12/22/17 15:00 105 12/22/17 14:00 107 12/22/17 13:00 120 12/22/17 12:00 109 12/22/17 12:00 98.5 109 17 113/59 (77) 94 12/22/17 11:00 115 12/22/17 10:00 115 I/O 3/10/18 12/22/17 12/22/17 12/23/17 12/23/17 12/23/17 07:00 15:00 23:00 07:00 15:00 23:00 Intake Total 424 ml 600 ml 100 ml Output Total 250 ml 250 ml 250 ml Balance 174 ml 350 ml -150 ml Intake Oral 600 ml 100 ml IV Total 424 ml Output Urine Total 250 ml 250 ml 250 ml # Bowel Movements 2 3 Result Diagram: 12/22/17 0455 12/23/17 0410 Other Results Last Impressions Chest X-Ray 12/23/17 0600 Signed Impressions: Service Date/Time: Saturday, December 23, 2017 03:43 - CONCLUSION: No significant change. Perry Neri MD Abdomen/Pelvis CT 12/20/17 0000 Signed Impressions: Service Date/Time: December 21:20 - CONCLUSION: Stable appearance to the CT abdomen/pelvis were compared to 11/26/17. Right double-J stent in place, multiple gallstones, left renal mass, left lateral ventral hernia. Dorian Vasquez MD Upper Extremity Ultrasound 12/13/17 0000 Signed Impressions: Service Date/Time: December 13:43 - CONCLUSION: 1. No deep venous thrombosis in the left upper extremity. 2. Superficial thrombosis of the right cephalic vein. El Nuñez MD Lower Extremity Ultrasound 12/13/17 0000 Signed Impressions: Service Date/Time: December 14:26 - CONCLUSION: Normal examination. Domingo Calderon MD Head CT 12/13/17 0000 Signed Impressions: Service Date/Time: December 13:30 - CONCLUSION: Normal examination. Domingo Calderon MD Objective Remarks GENERAL: Patient is 67 yo lying in bed in NAD SKIN: Warm and dry. HEAD: Normocephalic. EYES: No scleral icterus. No injection or drainage. NECK: Supple, trachea midline. No JVD or lymphadenopathy. CARDIOVASCULAR: Tachycardic without murmurs, gallops, or rubs. RESPIRATORY: Breath sounds equal bilaterally. No accessory muscle use. GASTROINTESTINAL: Abdomen soft, non-tender, nondistended. MUSCULOSKELETAL: No cyanosis, +edema. Neuro: Lethargic A/P Assessment and Plan 1)Acute on chronic hypercapenic resp failure 2)Morbid obesity/APOLONIA/OHS 3)UTI 4)Acute on CKD 5)Afib 6)HTN 7)DM 8)Hx C-diff Plan Continue with oxygen keep sats >92% Bronchodilators ( DuoNeb, Pulmicort), on Solumederol 40mg BID NIPPV PRN and nocturnally qhs Check ABG now if resp acidosis or clinical condition is worse will need intubation. CXR:Bibasilar airspace disease with small left pleural effusion without significant change. Abx per ID ( On Avyxaz, PO vanco) monitor renal function, avoid nephrotoxins. Off Diuretics GI/DVT prophylaxis- On Xarelto 10mg daily Continue treatment plan Juma Pak MD Dec 23, 2017 09:42
[2017-12-23] MEDS ORDERED: RESP: ALBUTEROL 2.5 MG/IPRATROPIUM 0.5 MG NEB (PRN) NEB (09:45)
--- NOTE | 2017-12-23 10:20 | HHI.IDPN ---
Subjective Subjective Remarks Patient is a 67-year-old female, resides in the senior living, brought into the hospital after she was found unresponsive. She had a recent hospitalization where she was diagnosed to have sepsis related to complicated UTI. During that hospitalization she underwent stent placement. She also had C. difficile colitis during that admission. Patient states that she uses a BiPAP machine in the senior living usually when she is sleeping. She is nonambulatory. Denies any significant cough or congestion. No chest pain. There was no mention of any fever or chills or sweats. When she also came to the hospital this time she was on pressors for hypotension. She improved clinically and her hemodynamics stabilize. However yesterday she went hypotensive again, an infectious disease consultation has been requested to evaluate the patient. Notes reviewed D/W RN Harley ok Has been lethargic yesterday and placed back on BIPAP Still lethargic this morning ABGs reviewed, has resp acidosis UC pending CT A/P no hydro, stent in place Antibiotics Current Medications Avycaz PO vancomycin Medications (Trade) Dose Ordered Sig/Mirta Route Start Time Stop Time Status Last Admin (NS Flush) 2 ml UNSCH PRN IV FLUSH 12/13/17 13:30 (NS Flush) 2 ml BID IV FLUSH 12/13/17 21:00 12/22/17 20:25 (Tylenol) 650 mg Q6H PRN PO 12/13/17 13:30 12/14/17 09:42 (Protonix) 40 mg DAILY PO 12/14/17 09:00 12/22/17 09:22 (Zofran Inj) 4 mg Q6H PRN IV PUSH 12/13/17 13:30 (Albuterol Neb) 2.5 mg Q2HR NEB PRN INH 12/13/17 13:30 Miscellaneous Information 1 Q361D XX 12/13/17 13:30 12/13/17 13:30 (Chlorhexidine 2% Cloth) Taper DAILY@04 TOP 12/14/17 04:00 12/10/18 03:59 12/21/17 03:38 (Chlorhexidine 2% Cloth) 3 pack UNSCH PRN TOP 12/13/17 13:30 (Zelda-Colace) 1 tab BID PO 12/13/17 21:00 12/22/17 09:22 (Milk Of Magnesia Liq) 30 ml Q12H PRN PO 12/13/17 13:30 (Senokot) 17.2 mg Q12H PRN PO 12/13/17 13:30 (Dulcolax Supp) 10 mg DAILY PRN RECTAL 12/13/17 13:30 (Lactulose Liq) 30 ml DAILY PRN PO 12/13/17 13:30 (Xanax) 1 mg BID PRN PO 12/13/17 13:30 (Pulmicort Respule Neb) 0.5 mg Q12HR NEB NEB 12/13/17 20:00 12/23/17 07:26 (Lasix) 40 mg DAILY PO 12/14/17 09:00 Future Hold 12/22/17 09:22 (KCl) 20 meq DAILY PO 12/14/17 09:00 12/22/17 09:22 (Lyrica) 75 mg DAILY PO 12/14/17 09:00 12/22/17 09:22 (Zoloft) 100 mg DAILY PO 12/14/17 09:00 12/22/17 09:22 (Vancomycin 25 Mg/ml Liq) 125 mg QID PO 12/13/17 18:00 12/22/17 20:23 (Vitamin C) 500 mg BID PO 12/13/17 21:00 12/22/17 20:24 (Lactinex) 1 tab TID PO 12/13/17 18:00 12/22/17 17:48 (D50w (Vial) Inj) 50 ml UNSCH PRN IV PUSH 12/13/17 13:30 12/19/17 22:25 (Glucagon Inj) 1 mg UNSCH PRN OTHER 12/13/17 13:30 (NovoLIN R SUPPLEMENTAL SCALE) 1 ACHS SLIDING SCALE SQ 12/13/17 17:00 12/14/17 17:00 (Pill Splitter) 1 ea UNSCH PRN OTHER 12/13/17 13:30 Potassium Chloride 100 ml @ 50 mls/hr Q2H PRN IV 12/13/17 13:30 Potassium Chloride 100 ml @ 50 mls/hr Q2H PRN IV 12/13/17 13:30 (K-Lyte Cl Eff) 50 meq UNSCH PRN PO 12/13/17 13:30 Potassium Chloride 100 ml @ 25 mls/hr UNSCH PRN IV 12/13/17 13:30 Potassium Chloride 100 ml @ 50 mls/hr Q2H PRN IV 12/13/17 13:30 Magnesium Sulfate 4 gm/Sodium Chloride 100 ml @ 50 mls/hr UNSCH PRN IV 12/13/17 13:30 (Mag-Ox) 800 mg UNSCH PRN PO 12/13/17 13:30 Magnesium Sulfate 2 gm/Sodium Chloride 100 ml @ 50 mls/hr UNSCH PRN IV 12/13/17 13:30 (K-Phos) 2,000 mg Q4H PRN PO 12/13/17 13:30 Sodium Phosphate 30 mmol/Sodium Chloride 250 ml @ 42 mls/hr UNSCH PRN IV 12/13/17 13:30 (K-Phos) 2,000 mg UNSCH PRN PO/TUBE 12/13/17 13:27 Potassium Phosphate 30 mmol/ Sodium Chloride 260 ml @ 42 mls/hr UNSCH PRN IV 12/13/17 13:27 (Xarelto) 10 mg DAILY PO 12/14/17 09:00 12/22/17 09:22 (Mycostatin Powder) 1 applic Q12HR TOPICAL 12/13/17 21:00 12/22/17 21:00 (Trandate Inj) 10 mg Q1HR PRN IV PUSH 12/13/17 17:00 (Nitroglycerin 2% Oint) 2 inch Q6HR PRN TOPICAL 12/13/17 18:00 (Apresoline Inj) 10 mg Q1HR PRN IV PUSH 12/13/17 17:00 Phenylephrine HCl 160 mg/Dextrose 500 ml @ 7.5 mls/hr TITRATE PRN IV 12/15/17 11:00 12/19/17 22:25 (Brethine Inj) 1 mg UNSCH PRN SQ 12/15/17 10:15 (Bactroban Nasal 2% Oint) Taper BID EACH NARE 12/15/17 21:00 12/11/18 20:59 12/21/17 21:22 (Lopressor) 12.5 mg Q12HR PO 12/19/17 21:00 12/22/17 20:24 (Proamatine) 10 mg Q8H PO 12/19/17 21:00 12/23/17 05:00 (Cardizem) 15 mg BID PO 12/19/17 21:00 12/22/17 20:25 Ceftazidime/ Avibactam 0.94 gm/ Sodium Chloride 50 ml @ 25 mls/hr Q12HR IV 12/20/17 13:00 12/22/17 20:24 (SoluMEDROL INJ) 40 mg BID IV 12/20/17 21:00 12/22/17 20:24 (Duoneb Neb) 1 ampule Q4HR NEB NEB 12/23/17 12:00 UNV (Duoneb Neb) 1 ampule Q2HR NEB PRN NEB 12/23/17 09:45 UNV Lines RIJ TLC Past Medical History Chronic respiratory failure secondary to APOLONIA, OHS and bronchial asthma Atrial fibrillation rate controlled Hypertension Dyslipidemia Gastroesophageal reflux disease Elevated BMI greater than 50 Recurrent MRSA pneumonia Depression Constipation Past Surgical History JJ stent placement by urology Hiatal hernia surgery Appendectomy Percutaneous tracheostomy by Dr. Mullins since decannulated Allergies: Coded Allergies: penicillin G (Unverified Allergy, Severe, 05/29/17) Objective . Vital Signs Date Time Temp Pulse Resp B/P (MAP) Pulse Ox O2 Delivery O2 Flow Rate FiO2 12/23/17 07:27 94 40 12/23/17 06:09 98 35 12/23/17 06:00 117 12/23/17 04:00 95 30 12/23/17 04:00 123 12/23/17 04:00 123 18 179/75 (109) 93 12/23/17 03:01 146/83 (104) 12/23/17 02:00 114 12/23/17 01:01 120 12/23/17 01:01 120 12/23/17 01:01 120 12/23/17 00:01 119 18 160/92 (114) 96 12/23/17 00:01 119 12/23/17 00:01 119 12/23/17 00:01 119 12/23/17 00:01 119 12/23/17 00:00 115 12/23/17 00:00 115 20 94 12/23/17 00:00 115 12/23/17 00:00 115 12/23/17 00:00 115 12/22/17 22:01 112 12/22/17 22:00 115 12/22/17 21:00 113 18 143/81 (101) 92 12/22/17 20:00 122 18 135/78 (97) 91 12/22/17 20:00 117 12/22/17 19:38 95 BiPAP 30 12/22/17 19:38 95 30 12/22/17 18:00 110 12/22/17 17:00 106 12/22/17 16:00 98.5 109 18 146/61 (89) 93 12/22/17 16:00 109 12/22/17 15:00 105 12/22/17 14:00 107 12/22/17 13:00 120 12/22/17 12:00 109 12/22/17 12:00 98.5 109 17 113/59 (77) 94 12/22/17 11:00 115 . Laboratory Tests Test 12/22/17 04:55 White Blood Count 4.8 TH/MM3 Red Blood Count 2.97 MIL/MM3 Hemoglobin 8.8 GM/DL Hematocrit 26.8 % Mean Corpuscular Volume 90.2 FL Mean Corpuscular Hemoglobin 29.6 PG Mean Corpuscular Hemoglobin Concent 32.8 % Red Cell Distribution Width 18.3 % Platelet Count 366 TH/MM3 Mean Platelet Volume 8.0 FL Neutrophils (%) (Auto) 86.2 % Lymphocytes (%) (Auto) 9.6 % Monocytes (%) (Auto) 4.0 % Eosinophils (%) (Auto) 0.0 % Basophils (%) (Auto) 0.2 % Neutrophils # (Auto) 4.1 TH/MM3 Lymphocytes # (Auto) 0.5 TH/MM3 Monocytes # (Auto) 0.2 TH/MM3 Eosinophils # (Auto) 0.0 TH/MM3 Basophils # (Auto) 0.0 TH/MM3 CBC Comment DIFF FINAL Differential Comment Laboratory Tests Test 12/22/17 04:55 12/23/17 04:10 Blood Urea Nitrogen 16 MG/DL 22 MG/DL Creatinine 2.02 MG/DL 2.06 MG/DL Random Glucose 128 MG/DL 111 MG/DL Calcium Level 7.8 MG/DL 8.2 MG/DL Sodium Level 145 MEQ/L 146 MEQ/L Potassium Level 4.2 MEQ/L 4.1 MEQ/L Chloride Level 112 MEQ/L 112 MEQ/L Carbon Dioxide Level 24.2 MEQ/L 23.2 MEQ/L Anion Gap 9 MEQ/L 11 MEQ/L Estimat Glomerular Filtration Rate 24 ML/MIN 24 ML/MIN Microbiology Date/Time Source Procedure Growth Status 12/20/17 12:13 Blood Peripheral Aerobic Blood Culture - Preliminary Gram Positive Rods Resulted 12/20/17 12:13 Blood Peripheral Anaerobic Blood Culture - Preliminary NO GROWTH IN 2 DAYS Resulted 12/20/17 12:08 Blood Peripheral Aerobic Blood Culture - Preliminary NO GROWTH IN 2 DAYS Resulted 12/20/17 12:08 Blood Peripheral Anaerobic Blood Culture - Preliminary NO GROWTH IN 2 DAYS Resulted 12/21/17 00:00 Urine Clean Catch Urine Culture Pending Received Imaging Last Impressions Chest X-Ray 12/21/17 0600 Signed Impressions: Service Date/Time: Thursday, December 21, 2017 04:24 - CONCLUSION: Mild bibasilar consolidation and small left pleural effusion without significant change. Perry Neri MD Abdomen/Pelvis CT 12/20/17 0000 Signed Impressions: Service Date/Time: December 21:20 - CONCLUSION: Stable appearance to the CT abdomen/pelvis were compared to 11/26/17. Right double-J stent in place, multiple gallstones, left renal mass, left lateral ventral hernia. Dorian Vasquez MD Upper Extremity Ultrasound 12/13/17 0000 Signed Impressions: Service Date/Time: December 13:43 - CONCLUSION: 1. No deep venous thrombosis in the left upper extremity. 2. Superficial thrombosis of the right cephalic vein. El Nuñez MD Lower Extremity Ultrasound 12/13/17 0000 Signed Impressions: Service Date/Time: December 14:26 - CONCLUSION: Normal examination. Domingo Calderon MD Head CT 12/13/17 0000 Signed Impressions: Service Date/Time: December 13:30 - CONCLUSION: Normal examination. Domingo Calderon MD Physical Exam GENERAL: lethargic, on BIPAP SKIN: Cool and dry. No generalized rash, no ecchymoses and no evidence of embolic lesions. HEAD: Atraumatic. Normocephalic. No temporal wasting, or tenderness. EYES: [place] conjunctiva. No petechia or hemorrhage. Pupils equal, round and reactive to light. EOM full and intact. No scleral icterus. EARS, NOSE AND THROAT: Nose without bleeding or purulent nasal discharge. No sinus tenderness. Mucous membranes pink and moist. NECK: Trachea midline. Supple and not tender, no meningeal signs CARDIOVASCULAR: Regular rate and rhythm. No murmurs, rubs or gallops heard RESPIRATORY: Decreased breath sounds bilaterally ABDOMEN: Soft, obese, non-tender, nondistended. Bowel sounds present and normoactive. No guarding. No rebound. EXTREMITIES: No clubbing, cyanosis. Has bilateral pedal edema. No calf tenderness. . NEUROLOGICAL: lethargic LINE: No evidence of infection Assessment & Plan Remarks IMPRESSION UTI, with Klebsiella Kleb MDR CRE ESBL+ Previous episode of complicated UTI,, has stent in place, had obstruction - CT A/P looks ok, stent in place, no hydro Known APOLONIA Respiratory failure, chronically on BIPAP mask - worse last 2 days, not clearing her CO2 Obesity Renal insufficiency, chronic Allergy to PCN, tolerates Cephalosporins Hx C diff colitis - recent episode during last admission RECOMMENDATION Continue Avycaz to cover CRE GNR Continue po Vanco Follow new C/S and decide on duration of Abx for her UTI May need intubation Monitor progress D/W Marely Aranda MD Dec 23, 2017 10:20
[2017-12-23] MEDS: RESP: ALBUTEROL 2.5 MG/IPRATROPIUM 0.5 MG NEB (SCH) NEB ×3 (11:18→19:52)
[2017-12-23] MEDS: cefTAZidime/AVIBACTAM INJ 0.94 GM in SODIUM CHLORIDE 0.9% INJ 50 ML IV SCH ×2 (11:54→21:25)
[2017-12-23] MEDS: methylPREDNISolone SOD SUCC 40 MG/1 ML VIAL IV SCH ×2 (11:55→21:25)
[2017-12-23] MEDS: NYSTATIN 100,000 U/GM PWD 15 GM BTL TOPICAL SCH ×2 (11:57→21:25)
[2017-12-23] MEDS: SODIUM CHLORIDE 0.9% FLUSH 10 ML FLUSH IV FLUSH SCH ×2 (11:59→21:25)
--- NOTE | 2017-12-23 16:55 | HHI.CCPN ---
Subjective Remarks/Hospital Course This is a 67-year-old female. Date of admission 12/13/2017. Past medical history includes elevated BMI, chronic asthma on chronic oxygen, atrial fibrillation/rate controlled, hypertension dyslipidemia. Today, patient presents to [facility] emergency department after being found unresponsive [facility] the [facility]. She was just discharged from the hospital 12/10/2017 from [facility]. She is morbidly obese with multiple severe chronic illnesses and was both in respiratory distress and decreased responsiveness at the same time. She was noted to be hypoxic with saturations in the e 80s with nasal cannula. Was brought in on BiPAP. Accu-Chek was in the 30s when paramedics found her. Initial GCS was reported as 3. She received some D10 through a right arm PICC line but upon arrival staff felt that the PICC line was not working properly. Patient cannot provide any history or review of systems. She arrives critically ill Patient received D50 and a central line in the right internal jugular was placed by ED physician as no significant access was available. Chest x-ray revealed no acute cardiopulmonary findings. After being placed on BiPAP and receiving glucose patient's mentation is much improved and likely can be removed in the ICU. Less confused when evaluated in the ED. UA is positive. Previous history of Pseudomonas sensitive to aztreonam 3: Currently resting in bed in no acute distress on 3 L nasal cannula. Overnight on BiPAP/Venturi mask currently on 3 L nasal cannula. Difficult to arouse but once arousable does follow commands in all 4 extremities but weakly. Blood sugar 135. ABG currently pending Subjective 12/15: Afebrile. Resting in bed on nasal cannula. Arousable and following commands. Ill-definition due to hypo-tension. I will place arterial line secondary to body habitus. She does not appear septic. She is more awake and alert and attentive today as compared to yesterday. 3: Alert and oriented 3, responding to questions appropriately. Arterial line inability to play secondary to body habitus. Patient remained on phenylephrine during the night but now map remains less than 60 will resume phenylephrine infusion, and initiate Midodrine. 12/17: Hemodynamically stable. Phenylephrine infusion off since last night. MAP 80's. Patient alert and oriented, tolerating diet/breakfast. 12/18: Late entry note. Hemodynamically stable. Decrease FiO2 requirements currently on 2 L nasal cannula O2 saturation 97-98 %. RECONSULT 12/19: Patient became hemodynamically unstable this afternoon requiring reinitiation of phenylephrine infusion currently at 70 mcgs/minute. 12/20: Patient became somnolent last evening noted respiratory acidosis around 2 AM. Patient placed back on BiPAP. ID has been consulted for MDR Klebsiella. Patient awake and alert this afternoon, and denies pain. 12/21: Respiratory status much improved, and to remain on BiPAP at night while sleeping. ABGs improved. Patient hemodynamically stable no vasopressor requirements at this time. IV fluids discontinued. Patient tolerating a diet. 12/22: Patient remains a respiratory acidosis, slightly more lethargic today. Patient placed on BiPAP with exception of meals today. Repeat ABG pending this afternoon 12/23: ABG's and neuro status unchanged. Patient remains on BiPAP with exception of meals. Repeat ABG pending this afternoon. Ammonia level ordered. Objective Vital Signs Date Time Temp Pulse Resp B/P (MAP) Pulse Ox O2 Delivery O2 Flow Rate FiO2 12/23/17 15:34 94 40 12/23/17 10:00 125 12/23/17 08:00 98.7 17 12/23/17 04:00 179/75 (109) 12/22/17 19:38 BiPAP 12/22/17 07:28 4.00 Intake and Output 12/23/17 12/23/17 12/24/17 08:00 16:00 00:00 Intake Total 100 ml Output Total 250 ml Balance -150 ml Result Diagram: 12/22/17 0455 12/23/17 0410 Other Results Microbiology Date/Time Source Procedure Growth Status 12/21/17 00:00 Urine Clean Catch Urine Culture - Final 50-100,000 CFU/ML MIXED BERNA... Complete Laboratory Tests Test 12/23/17 05:43 12/23/17 10:05 Blood Gas Puncture Site RT RADIAL RT RADIAL Blood Gas Patient Temperature 98.6 98.6 Blood Gas HCO3 21 mmol/L (22-26) 21 mmol/L (22-26) Blood Gas Base Excess -5.0 mmol/L (-2-2) -5.2 mmol/L (-2-2) Blood Gas Oxygen Saturation 89 % (90-100) 92 % (90-100) Arterial Blood pH 7.25 (7.380-7.420) 7.26 (7.380-7.420) Arterial Blood Partial Pressure CO2 50 mmHg (38-42) 48 mmHg (38-42) Arterial Blood Partial Pressure O2 65 mmHg (61-120) 75 mmHg (61-120) Arterial Blood Oxygen Content 11.7 Vol % (12.0-20.0) 12.2 Vol % (12.0-20.0) Arterial Blood Carboxyhemoglobin 1.0 % (0-4) 1.1 % (0-4) Arterial Blood Methemoglobin 1.2 % (0-2) 0.9 % (0-2) Blood Gas Hemoglobin 9.4 G/DL (12.0-16.0) 9.3 G/DL (12.0-16.0) Oxygen Delivery Device BIPAP BIPAP Blood Gas Ventilator Setting 16 [id number] Blood Gas Inspired Oxygen 40 % Imaging Last Impressions Chest X-Ray 12/23/17 0600 Signed Impressions: Service Date/Time: Saturday, December 23, 2017 03:43 - CONCLUSION: No significant change. Perry Neri MD Abdomen/Pelvis CT 12/20/17 0000 Signed Impressions: Service Date/Time: December 21:20 - CONCLUSION: Stable appearance to the CT abdomen/pelvis were compared to 11/26/17. Right double-J stent in place, multiple gallstones, left renal mass, left lateral ventral hernia. Dorian Vasquez MD Upper Extremity Ultrasound 12/13/17 0000 Signed Impressions: Service Date/Time: December 13:43 - CONCLUSION: 1. No deep venous thrombosis in the left upper extremity. 2. Superficial thrombosis of the right cephalic vein. El Nuñez MD Lower Extremity Ultrasound 12/13/17 0000 Signed Impressions: Service Date/Time: December 14:26 - CONCLUSION: Normal examination. Domingo Calderon MD Head CT 12/13/17 0000 Signed Impressions: Service Date/Time: December 13:30 - CONCLUSION: Normal examination. Domingo Calderon MD Last Impressions Chest X-Ray 12/20/17 0600 Signed Impressions: Service Date/Time: December 02:09 - CONCLUSION: 1. Stable chest x-ray with persistent nonspecific left basilar opacity which could represent atelectasis, consolidation, and/or pleural fluid. 2. Right IJ line remains present but distal tip is not well-visualized. Perry Kessler MD Upper Extremity Ultrasound 12/13/17 Signed Impressions: Service Date/Time: December 13:43 - CONCLUSION: 1. No deep venous thrombosis in the left upper extremity. 2. Superficial thrombosis of the right cephalic vein. El Nuñez MD Lower Extremity Ultrasound 12/13/17 Signed Impressions: Service Date/Time: December 14:26 - CONCLUSION: Normal examination. Domingo Calderon MD Head CT 12/13/17 Signed Impressions: Service Date/Time: December 13:30 - CONCLUSION: Normal examination. Domingo Calderon MD Last Impressions Chest X-Ray 12/17/17 06 Signed Impressions: Service Date/Time: Sunday, December 17, 2017 03:40 - CONCLUSION: 1. Persistent left lung volume loss with opacity at the left lung base. This could represent atelectasis or airspace consolidation. 2. Right IJ line remains present but distal tip is not adequately visualized on this exam. Perry Kessler MD Upper Extremity Ultrasound 12/13/17 Signed Impressions: Service Date/Time: December 13:43 - CONCLUSION: 1. No deep venous thrombosis in the left upper extremity. 2. Superficial thrombosis of the right cephalic vein. El Nuñez MD Lower Extremity Ultrasound 12/13/17 Signed Impressions: Service Date/Time: December 14:26 - CONCLUSION: Normal examination. Domingo Calderon MD Head CT 12/13/17 Signed Impressions: Service Date/Time: December 13:30 - CONCLUSION: Normal examination. Domingo Calderon MD Last Impressions Chest X-Ray 12/17/17 0600 Signed Impressions: Service Date/Time: Sunday, December 17, 2017 03:40 - CONCLUSION: 1. Persistent left lung volume loss with opacity at the left lung base. This could represent atelectasis or airspace consolidation. 2. Right IJ line remains present but distal tip is not adequately visualized on this exam. Perry Kessler MD Upper Extremity Ultrasound 12/13/17 0000 Signed Impressions: Service Date/Time: December 13:43 - CONCLUSION: 1. No deep venous thrombosis in the left upper extremity. 2. Superficial thrombosis of the right cephalic vein. El Nuñez MD Lower Extremity Ultrasound 12/13/17 Signed Impressions: Service Date/Time: December 14:26 - CONCLUSION: Normal examination. Domingo Calderon MD Head CT 12/13/17 0000 Signed Impressions: Service Date/Time: December 13:30 - CONCLUSION: Normal examination. Domingo Calderon MD Last Impressions Chest X-Ray 12/16/17 06 Signed Impressions: Service Date/Time: Saturday, December 16, 2017 02:40 - CONCLUSION: Stable left lower lung consolidation. Dorian Vasquez MD Upper Extremity Ultrasound 12/13/17 Signed Impressions: Service Date/Time: December 13:43 - CONCLUSION: 1. No deep venous thrombosis in the left upper extremity. 2. Superficial thrombosis of the right cephalic vein. El Nuñez MD Lower Extremity Ultrasound 12/13/17 0000 Signed Impressions: Service Date/Time: December 14:26 - CONCLUSION: Normal examination. Domingo Calderon MD Head CT 12/13/17 0000 Signed Impressions: Service Date/Time: December 13:30 - CONCLUSION: Normal examination. Domingo Calderon MD Last Impressions Chest X-Ray 12/15/17 0600 Signed Impressions: Service Date/Time: Friday, December 15, 2017 03:58 - CONCLUSION: Persistent left lower lung consolidation. Dorian Vasquez MD Upper Extremity Ultrasound 12/13/17 0000 Signed Impressions: Service Date/Time: December 13:43 - CONCLUSION: 1. No deep venous thrombosis in the left upper extremity. 2. Superficial thrombosis of the right cephalic vein. El Nuñez MD Lower Extremity Ultrasound 12/13/17 0000 Signed Impressions: Service Date/Time: December 14:26 - CONCLUSION: Normal examination. Domingo Calderon MD Head CT 12/13/17 0000 Signed Impressions: Service Date/Time: December 13:30 - CONCLUSION: Normal examination. Domingo Calderon MD Objective Remarks GENERAL: 67-year-old super morbidly obese female resting in bed on BiPAP, lethargic but easily arousable and follows commands SKIN: Warm and dry. HEAD: Atraumatic. Normocephalic. EYES: Pupils equal and round about 3 mm bilaterally and reactive. No scleral icterus. No injection or drainage. ENT: No nasal bleeding or discharge. Mucous membranes pink and moist. NECK: Trachea midline. No JVD. CARDIOVASCULAR: IRR. Distant heart tones. S1, S2. No S4. Without murmur RESPIRATORY: Diminished breath sounds throughout due to body habitus. No wheezing is appreciated. Breath sounds equal bilaterally. GASTROINTESTINAL: Abdomen soft, obese, nontender. Hypoactive bowel sounds are appreciated MUSCULOSKELETAL: Extremities with 2+ bilateral upper and lower extremity edema NEUROLOGICAL: Awake and alert to person place. No obvious cranial nerve deficits. Motor grossly within normal limits. 5/5 muscle strength in the arms and legs. Date of Insertion: Dec 13, 2017 Line: Central Venous Catheter Side: Right Location: Internal, Jugular A/P Assessment and Plan Neuro/Psych: Chronic benzodiazepine use Depression disorder NOS Acute toxic metabolic encephalopathy likely secondary to hypoglycemia/CO2 retention Diabetic neuropathy Chronic pain syndrome with chronic narcotic use Acetaminophen 650 mg p.o. every 6 hours as needed fever/pain 1 through 5 3/5 Morphine sulfate 2 mg IV every 3 hours as needed pain 6-10- discontinued Continuing alprazolam 1 mg p.o. twice daily as needed anxiety Holding hydrocodone/acetaminophen 5/321 tablet every 6 hours as needed pain Continue sertraline 100 mg p.o. daily for depression Continue pregabalin 75 mg p.o. daily for peripheral neuropathy CT brain 12/13 revealed no acute intracranial findings CV: Atrial fibrillation/chronic Hypertension Currently on low-dose phenylephrine discontinued 12/16.restarted on 12/19 and discontinued 12/20 12/19 Midodrine 10mg q 8 hrs Home blood pressure medications include metoprolol 12.5 mg p.o. every 12 hours\ furosemide 40 mg p.o. daily\ diltiazem 90 mg p.o. daily adjusted to 5 mg every 6 hours 2D echocardiogram 12/02 - normal left ventricular size. Wall thickness is measured at the upper limits of normal. The left ventricular systolic function is low normal with an estimated ejection fraction in the range of 50-55%. The left atrial size is mildly dilated. The right atrial size is moderately dilated. There is trace tricuspid valve regurgitation. Resp: Acute hypoxic respiratory failure APOLONIA/OHS History recurrent MRSA pneumonia 3 L nasal cannula for saturations greater than or equal to 90% Patient to remain on BiPAP, with exception of meals Currently in albuterol/ipratropium aerosols every 6 hours with albuterol aerosols every 2 hours dyspnea Continue budesonide 0.5 mg/2 mL nebulizers every 12 hours Holding levalbuterol HCL 1.25 mg 3 mL nebs every 4 hours Holding formoterol fumarate 20 mg/2 mL nebs twice daily Chest x-rays and ABGs when clinically indicated GI: BMI greater than 50 Gastroesophageal reflux disease 2200 KCal ADA diet Pantoprazole for GI prophylaxis. Patient is on famotidine 20 mg p.o. daily at home Docusate sodium/senna 1 tablet twice daily for bowel regimen. Patient is on senna 8.6 mg twice daily at home Continue ondansetron 4 mg every 6 hours as needed nausea : Solitario catheter to maintain patency with recent pyelonephritis/GJ placement. Outpatient J stent removal by urology placed during last hospitalization 12/02 Endo: Diabetes mellitus Acute hypoglycemia-resolved Holding insulin detemir 40 units twice daily Sliding scale insulin with Novulin R with Accu-Cheks to maintain euglycemia before meals at bedtime. No sliding scale insulin past 24 hours Renal: Chronic kidney disease stage IIIa Creatinine currently 1.88 Avoid nephrotoxic drugs Monitor urine output Accurate I's and O's Heme: Normocytic anemia Chronic Rivaroxaban use Right cephalic vein superficial thrombus Currently stable hemoglobin. No indication for transfusion of blood products at this time. Continue with rivaroxaban 10 mg daily ID: Urinary tract infection/gram-negative eugenio History of MRSA History of C. difficile Currently in vancomycin, aztreonam and metronidazole Currently on oral vancomycin 4 additional days for C. difficile Pertinent cultures Blood cultures 2, 12/13 no growth to date Urine Legionella pneumococcal antigens negative Urine culture 12/13 Klebsiella MSK: Elevated BMI Weight loss encouraged FEN: Replace electrolytes as clinically indicated Receiving 2 g mag sulfate IV 1 now. Recheck in a.m. Start calcium acetate 667 mg p.o. 3 times daily for 2 days. Recheck phosphorus in a.m. Access -Right IJ CVL day #11 placed the ED 12/13 Prophylaxis -GI -pantoprazole -DVT -SCD/rivaroxaban Level 3 Discussed with [employer] APPRENTICE (Lidia) Physician Amelia Delgadillo MD Dec 23, 2017 16:55
[2017-12-24] VITALS (20 sets, daily range): BP systolic 96–125; BP diastolic 59–90; PULSE 100–136; RESP 14–18; TEMP 98.2; O2SAT 93–98
[2017-12-24] MEDS: CHLORHEXIDINE GLUCONATE 2 % 1 PACK (2 CLOTHS) TOP SCH (00:42)
[2017-12-24] MEDS: RESP: ALBUTEROL 2.5 MG/IPRATROPIUM 0.5 MG NEB (SCH) NEB ×7 (00:49→23:33)
[2017-12-24] MEDS: MIDODRINE 5 MG TAB PO SCH (04:43)
[2017-12-24] MEDS: RESP: BUDESONIDE 0.5 MG/2 ML NEB NEB SCH ×2 (07:34→19:45)
[2017-12-24] MEDS: INSULIN NovoLIN REGULAR SUPPLEMENTAL SCALE SQ SCH ×4 (08:00→21:00)
--- NOTE | 2017-12-24 08:11 | HHI.CCPN ---
Subjective Remarks/Hospital Course This is a 67-year-old female. Date of admission 12/13/2017. Past medical history includes elevated BMI, chronic asthma on chronic oxygen, atrial fibrillation/rate controlled, hypertension dyslipidemia. Today, patient presents to [facility] emergency department after being found unresponsive at the halfway. She was just discharged from the hospital 12/10/2017 from [facility]. She is morbidly obese with multiple severe chronic illnesses and was both in respiratory distress and decreased responsiveness at the same time. She was noted to be hypoxic with saturations in the e 80s with nasal cannula. Was brought in on BiPAP. Accu-Chek was in the 30s when paramedics found her. Initial GCS was reported as 3. She received some D10 through a right arm PICC line but upon arrival staff felt that the PICC line was not working properly. Patient cannot provide any history or review of systems. She arrives critically ill Patient received D50 and a central line in the right internal jugular was placed by ED physician as no significant access was available. Chest x-ray revealed no acute cardiopulmonary findings. After being placed on BiPAP and receiving glucose patient's mentation is much improved and likely can be removed in the ICU. Less confused when evaluated in the ED. UA is positive. Previous history of Pseudomonas sensitive to aztreonam 3: Currently resting in bed in no acute distress on 3 L nasal cannula. Overnight on BiPAP/Venturi mask currently on 3 L nasal cannula. Difficult to arouse but once arousable does follow commands in all 4 extremities but weakly. Blood sugar 135. ABG currently pending Subjective 12/15: Afebrile. Resting in bed on nasal cannula. Arousable and following commands. Ill-definition due to hypo-tension. I will place arterial line secondary to body habitus. She does not appear septic. She is more awake and alert and attentive today as compared to yesterday. 3: Alert and oriented 3, responding to questions appropriately. Arterial line inability to play secondary to body habitus. Patient remained on phenylephrine during the night but now map remains less than 60 will resume phenylephrine infusion, and initiate Midodrine. 12/17: Hemodynamically stable. Phenylephrine infusion off since last night. MAP 80's. Patient alert and oriented, tolerating diet/breakfast. 12/18: Late entry note. Hemodynamically stable. Decrease FiO2 requirements currently on 2 L nasal cannula O2 saturation 97-98 %. RECONSULT 12/19: Patient became hemodynamically unstable this afternoon requiring reinitiation of phenylephrine infusion currently at 70 mcgs/minute. 12/20: Patient became somnolent last evening noted respiratory acidosis around 2 AM. Patient placed back on BiPAP. ID has been consulted for MDR Klebsiella. Patient awake and alert this afternoon, and denies pain. 12/21: Respiratory status much improved, and to remain on BiPAP at night while sleeping. ABGs improved. Patient hemodynamically stable no vasopressor requirements at this time. IV fluids discontinued. Patient tolerating a diet. 12/22: Patient remains a respiratory acidosis, slightly more lethargic today. Patient placed on BiPAP with exception of meals today. Repeat ABG pending this afternoon 12/23: ABG's and neuro status unchanged. Patient remains on BiPAP with exception of meals. Repeat ABG pending this afternoon. Ammonia level ordered. 12/24 Patient is on BIPAP 15/5 with 40% . In Afib with RVR Objective Vital Signs Date Time Temp Pulse Resp B/P (MAP) Pulse Ox O2 Delivery O2 Flow Rate FiO2 12/24/17 07:34 96 40 12/24/17 06:00 136 12/24/17 04:00 17 96/59 (71) 12/23/17 16:00 98.5 12/22/17 19:38 BiPAP 12/22/17 07:28 4.00 Intake and Output 12/24/17 12/24/17 12/25/17 08:00 16:00 00:00 Output Total 150 ml Balance -150 ml Result Diagram: 12/22/17 0455 12/23/17 0410 Other Results Laboratory Tests Test 12/23/17 10:05 12/23/17 17:10 Blood Gas Puncture Site RT RADIAL LT RADIAL Blood Gas Patient Temperature 98.6 98.6 Blood Gas HCO3 21 mmol/L 20 mmol/L Blood Gas Base Excess -5.2 mmol/L -6.3 mmol/L Blood Gas Oxygen Saturation 92 % 91 % Arterial Blood pH 7.26 7.25 Arterial Blood Partial Pressure CO2 48 mmHg 47 mmHg Arterial Blood Partial Pressure O2 75 mmHg 71 mmHg Arterial Blood Oxygen Content 12.2 Vol % 12.4 Vol % Arterial Blood Carboxyhemoglobin 1.1 % 1.0 % Arterial Blood Methemoglobin 0.9 % 1.2 % Blood Gas Hemoglobin 9.3 G/DL 9.6 G/DL Oxygen Delivery Device BIPAP BIPAP Blood Gas Ventilator Setting IPAP16/EPAP6 IPAP16/EPAP6 Blood Gas Inspired Oxygen 40 % 40 % Imaging Last Impressions Chest X-Ray 12/23/17 0600 Signed Impressions: Service Date/Time: Saturday, December 23, 2017 03:43 - CONCLUSION: No significant change. Perry Neri MD Abdomen/Pelvis CT 12/20/17 0000 Signed Impressions: Service Date/Time: December 21:20 - CONCLUSION: Stable appearance to the CT abdomen/pelvis were compared to 11/26/17. Right double-J stent in place, multiple gallstones, left renal mass, left lateral ventral hernia. Dorian Vasquez MD Upper Extremity Ultrasound 12/13/17 0000 Signed Impressions: Service Date/Time: December 13:43 - CONCLUSION: 1. No deep venous thrombosis in the left upper extremity. 2. Superficial thrombosis of the right cephalic vein. El Nuñez MD Lower Extremity Ultrasound 12/13/17 0000 Signed Impressions: Service Date/Time: December 14:26 - CONCLUSION: Normal examination. Domingo Calderon MD Head CT 12/13/17 0000 Signed Impressions: Service Date/Time: December 13:30 - CONCLUSION: Normal examination. Domingo Calderon MD Objective Remarks GENERAL: 67-year-old super morbidly obese female resting in bed on BiPAP, lethargic but easily arousable and follows commands SKIN: Warm and dry. HEAD: Atraumatic. Normocephalic. EYES: Pupils equal and round about 3 mm bilaterally and reactive. No scleral icterus. No injection or drainage. ENT: No nasal bleeding or discharge. Mucous membranes pink and moist. NECK: Trachea midline. No JVD. CARDIOVASCULAR: IRR. Distant heart tones. S1, S2. No S4. Without murmur RESPIRATORY: Diminished breath sounds throughout due to body habitus. No wheezing is appreciated. Breath sounds equal bilaterally. GASTROINTESTINAL: Abdomen soft, obese, nontender. Hypoactive bowel sounds are appreciated MUSCULOSKELETAL: Extremities with 2+ bilateral upper and lower extremity edema NEUROLOGICAL: Awake and alert to person place. No obvious cranial nerve deficits. Motor grossly within normal limits. 5/5 muscle strength in the arms and legs. Date of Insertion: Dec 13, 2017 Line: Central Venous Catheter Side: Right Location: Internal, Jugular A/P Assessment and Plan Neuro/Psych: Chronic benzodiazepine use Depression disorder NOS Acute toxic metabolic encephalopathy likely secondary to hypoglycemia/CO2 retention Diabetic neuropathy Chronic pain syndrome with chronic narcotic use Acetaminophen 650 mg p.o. every 6 hours as needed fever/pain 1 through 5 Continuing alprazolam 1 mg p.o. twice daily as needed anxiety Holding hydrocodone/acetaminophen 5/321 tablet every 6 hours as needed pain Continue sertraline 100 mg p.o. daily for depression Continue pregabalin 75 mg p.o. daily for peripheral neuropathy CT brain 12/13 revealed no acute intracranial findings CV: Atrial fibrillation with RVR Hypertension Increase Lopressor 50mg Q12, add Cardizem 60mg Q6, d/c Midodrine. Monitor HR and BP keep MAP>65mmHg 2D echocardiogram 12/02 - normal left ventricular size. Wall thickness is measured at the upper limits of normal. The left ventricular systolic function is low normal with an estimated ejection fraction in the range of 50-55%. The left atrial size is mildly dilated. The right atrial size is moderately dilated. There is trace tricuspid valve regurgitation. Resp: Acute hypoxic respiratory failure APOLONIA/OHS History recurrent MRSA pneumonia Continue with oxygen keep sats >92% Currently in albuterol/ipratropium aerosols every 6 hours with albuterol aerosols every 2 hours dyspnea Continue budesonide 0.5 mg/2 mL nebulizers every 12 hours Check ABG GI: BMI greater than 50 Gastroesophageal reflux disease 2200 KCal ADA diet Pantoprazole for GI prophylaxis. Patient is on famotidine 20 mg p.o. daily at home Docusate sodium/senna 1 tablet twice daily for bowel regimen. Patient is on senna 8.6 mg twice daily at home Continue ondansetron 4 mg every 6 hours as needed nausea : CKD Monitor renal function, I/O's, avoid nephrotoxins Cr: 2.06 yesterday, UOP:325ml in 24 hrs. Follow up BMP today Renal eval. Solitario catheter to maintain patency with recent pyelonephritis/GJ placement. Outpatient J stent removal by urology placed during last hospitalization 12/02 12/20 CT abd/pelvis: No hydronephrosis Endo: Diabetes mellitus Acute hypoglycemia-resolved Sliding scale insulin with Novulin R with Accu-Cheks to maintain euglycemia before meals at bedtime. Heme: Normocytic anemia Chronic Rivaroxaban use Right cephalic vein superficial thrombus Monitor CBC Continue with rivaroxaban 10 mg daily ID: Urinary tract infection/gram-negative eugenio History of MRSA History of C. difficile Currently on PO vancomycin, Avycaz per ID Monitor for signs of infections ( Fever, WBC) Pertinent cultures Urine Legionella pneumococcal antigens negative Urine culture 12/13 Klebsiella ESBL Access -Right IJ CVL placed the ED 12/13 -d/c central line and place peripheral IV's Prophylaxis -GI -pantoprazole -DVT -SCD/rivaroxaban Check Labs today Level 3 Juma Pak MD Dec 24, 2017 08:11
[2017-12-24] MEDS ORDERED: DILTIAZEM HCL 25 MG/5 ML VIAL IV ONE (08:30)
[2017-12-24] MEDS: LACTOBACILLUS ACIDOPHILUS TAB PO SCH ×3 (08:45→17:41)
[2017-12-24] MEDS: SERTRALINE HCL 100 MG TAB PO SCH (08:45)
[2017-12-24] MEDS: MUPIROCIN 2% OINT 1 APPLIC/GM SYR EACH NARE SCH ×2 (08:45→21:02)
[2017-12-24] MEDS: DOCUSATE SODIUM 50 MG/SENNA 8.6 MG TAB PO SCH ×2 (08:46→21:04)
[2017-12-24] MEDS: POTASSIUM CHLORIDE 20 MEQ CONTROLLED RELEASE TAB PO SCH (08:46)
[2017-12-24] MEDS: methylPREDNISolone SOD SUCC 40 MG/1 ML VIAL IV SCH (08:46)
[2017-12-24] MEDS: ASCORBIC ACID 500 MG TAB PO SCH ×2 (08:46→21:04)
[2017-12-24] MEDS: PANTOPRAZOLE SOD 40 MG DELAYED RELEASE TAB PO SCH (08:46)
[2017-12-24] MEDS: PREGABALIN 75 MG CAP PO SCH (08:47)
[2017-12-24] MEDS: RIVAROXABAN 10 MG TAB PO SCH (08:47)
[2017-12-24] MEDS: VANCOMYCIN 25 MG/ML SOLN 100 ML BOTTLE PO SCH ×4 (08:47→21:04)
[2017-12-24] MEDS: NYSTATIN 100,000 U/GM PWD 15 GM BTL TOPICAL SCH ×2 (09:00→21:00)
[2017-12-24] MEDS ORDERED: METOPROLOL TARTRATE 25 MG TAB PO SCH (09:00)
[2017-12-24] MEDS: cefTAZidime/AVIBACTAM INJ 0.94 GM in SODIUM CHLORIDE 0.9% INJ 50 ML IV SCH (09:51)
[2017-12-24 09:56] LABS: AUTOMATED NEUTROPHIL # 5.8 TH/MM3 (1.8-7.7); BASOPHIL % 0.2 % (0.0-2.0); EOSINOPHIL % 0.1 % (0.0-4.0); HEMATOCRIT 30.8 % (35.0-46.0); HEMOGLOBIN 9.7 GM/DL (11.6-15.3); LYMPH % 10.5 % (9.0-44.0); LYMPHOCYTE # 0.8 TH/MM3 (1.0-4.8); MEAN CELL VOLUME 91.6 FL (80.0-100.0); MEAN CORPUSCULAR HEMOGLOBIN 28.9 PG (27.0-34.0); MEAN CORPUSCULAR HGB CONC 31.6 % (32.0-36.0); MEAN PLATELET VOLUME 7.8 FL (7.0-11.0); MONO % 10.1 % (0.0-8.0); MONOCYTE # 0.7 TH/MM3 (0-0.9); NEUT % 79.1 % (16.0-70.0); PLATELET COUNT 317 TH/MM3 (150-450); RED BLOOD COUNT 3.37 MIL/MM3 (4.00-5.30); RED CELL DISTRIBUTION WIDTH 18.8 % (11.6-17.2); WHITE BLOOD COUNT 7.3 TH/MM3 (4.0-11.0)
[2017-12-24 10:11] LABS: CALCIUM 8.5 MG/DL (8.5-10.1); CREATININE 2.35 MG/DL (0.50-1.00)
--- NOTE | 2017-12-24 10:16 | HHI.IDPN ---
Subjective Subjective Remarks Patient is a 67-year-old female, resides in the long term, brought into the hospital after she was found unresponsive. She had a recent hospitalization where she was diagnosed to have sepsis related to complicated UTI. During that hospitalization she underwent stent placement. She also had C. difficile colitis during that admission. Patient states that she uses a BiPAP machine in the long term usually when she is sleeping. She is nonambulatory. Denies any significant cough or congestion. No chest pain. There was no mention of any fever or chills or sweats. When she also came to the hospital this time she was on pressors for hypotension. She improved clinically and her hemodynamics stabilize. However yesterday she went hypotensive again, an infectious disease consultation has been requested to evaluate the patient. Notes reviewed D/W RN Temps ok Awake and alert today On nasal O2, eating breakfast Has been on BIPAP prior ABG still with resp acidosis, bicarb lower Repeat UC mixed paluo Antibiotics Current Medications Avycaz PO Vancomycin Medications (Trade) Dose Ordered Sig/Mirta Route Start Time Stop Time Status Last Admin (NS Flush) 2 ml UNSCH PRN IV FLUSH 12/13/17 13:30 (NS Flush) 2 ml BID IV FLUSH 12/13/17 21:00 12/23/17 21:25 (Tylenol) 650 mg Q6H PRN PO 12/13/17 13:30 12/14/17 09:42 (Protonix) 40 mg DAILY PO 12/14/17 09:00 12/24/17 08:46 (Zofran Inj) 4 mg Q6H PRN IV PUSH 12/13/17 13:30 Miscellaneous Information 1 Q361D XX 12/13/17 13:30 12/13/17 13:30 (Chlorhexidine 2% Cloth) Taper DAILY@04 TOP 12/14/17 04:00 12/10/18 03:59 12/21/17 03:38 (Chlorhexidine 2% Cloth) 3 pack UNSCH PRN TOP 12/13/17 13:30 (Zelda-Colace) 1 tab BID PO 12/13/17 21:00 12/24/17 08:46 (Milk Of Magnesia Liq) 30 ml Q12H PRN PO 12/13/17 13:30 (Senokot) 17.2 mg Q12H PRN PO 12/13/17 13:30 (Dulcolax Supp) 10 mg DAILY PRN RECTAL 12/13/17 13:30 (Lactulose Liq) 30 ml DAILY PRN PO 12/13/17 13:30 (Xanax) 1 mg BID PRN PO 12/13/17 13:30 (Pulmicort Respule Neb) 0.5 mg Q12HR NEB NEB 12/13/17 20:00 12/24/17 07:34 (Lasix) 40 mg DAILY PO 12/14/17 09:00 Future Hold 12/22/17 09:22 (KCl) 20 meq DAILY PO 12/14/17 09:00 12/24/17 08:46 (Lyrica) 75 mg DAILY PO 12/14/17 09:00 12/24/17 08:47 (Zoloft) 100 mg DAILY PO 12/14/17 09:00 12/24/17 08:45 (Vancomycin 25 Mg/ml Liq) 125 mg QID PO 12/13/17 18:00 12/24/17 08:47 (Vitamin C) 500 mg BID PO 12/13/17 21:00 12/24/17 08:46 (Lactinex) 1 tab TID PO 12/13/17 18:00 12/24/17 08:45 (D50w (Vial) Inj) 50 ml UNSCH PRN IV PUSH 12/13/17 13:30 12/19/17 22:25 (Glucagon Inj) 1 mg UNSCH PRN OTHER 12/13/17 13:30 (NovoLIN R SUPPLEMENTAL SCALE) 1 ACHS SLIDING SCALE SQ 12/13/17 17:00 12/14/17 17:00 (Pill Splitter) 1 ea UNSCH PRN OTHER 12/13/17 13:30 (Xarelto) 10 mg DAILY PO 12/14/17 09:00 12/24/17 08:47 (Mycostatin Powder) 1 applic Q12HR TOPICAL 12/13/17 21:00 12/24/17 09:00 (Trandate Inj) 10 mg Q1HR PRN IV PUSH 12/13/17 17:00 (Nitroglycerin 2% Oint) 2 inch Q6HR PRN TOPICAL 12/13/17 18:00 (Apresoline Inj) 10 mg Q1HR PRN IV PUSH 12/13/17 17:00 Phenylephrine HCl 160 mg/Dextrose 500 ml @ 7.5 mls/hr TITRATE PRN IV 12/15/17 11:00 12/19/17 22:25 (Brethine Inj) 1 mg UNSCH PRN SQ 12/15/17 10:15 (Bactroban Nasal 2% Oint) Taper BID EACH NARE 12/15/17 21:00 12/11/18 20:59 12/24/17 08:45 Ceftazidime/ Avibactam 0.94 gm/ Sodium Chloride 50 ml @ 25 mls/hr Q12HR IV 12/20/17 13:00 12/24/17 09:51 (SoluMEDROL INJ) 40 mg BID IV 12/20/17 21:00 12/24/17 08:46 (Duoneb Neb) 1 ampule Q4HR NEB NEB 12/23/17 12:00 12/24/17 07:34 (Duoneb Neb) 1 ampule Q2HR NEB PRN NEB 12/23/17 09:45 (Lopressor) 50 mg Q12HR PO 12/24/17 09:00 12/24/17 08:45 (Cardizem) 60 mg Q6HR PO 12/24/17 12:00 Lines RIJ TLC Past Medical History Chronic respiratory failure secondary to APOLONIA, OHS and bronchial asthma Atrial fibrillation rate controlled Hypertension Dyslipidemia Gastroesophageal reflux disease Elevated BMI greater than 50 Recurrent MRSA pneumonia Depression Constipation Past Surgical History JJ stent placement by urology Hiatal hernia surgery Appendectomy Percutaneous tracheostomy by Dr. Mullins since decannulated Allergies: Coded Allergies: penicillin G (Unverified Allergy, Severe, 05/29/17) Objective . Vital Signs Date Time Temp Pulse Resp B/P (MAP) Pulse Ox O2 Delivery O2 Flow Rate FiO2 12/24/17 08:00 121 18 125/90 (102) 96 12/24/17 08:00 121 12/24/17 07:34 96 40 12/24/17 06:00 136 12/24/17 04:00 129 12/24/17 04:00 129 17 96/59 (71) 96 12/24/17 03:56 98 40 12/24/17 03:00 135 12/24/17 02:00 124 12/24/17 00:49 96 40 12/24/17 00:00 118 12/24/17 00:00 118 14 117/62 (80) 95 12/23/17 23:00 122 15 109/58 (75) 95 12/23/17 22:00 134 12/23/17 22:00 134 19 109/59 (76) 95 12/23/17 21:00 134 15 118/76 (90) 94 12/23/17 21:00 134 12/23/17 20:00 136 21 124/90 (101) 94 12/23/17 20:00 136 12/23/17 19:53 96 40 12/23/17 18:00 123 12/23/17 17:00 126 12/23/17 16:00 126 12/23/17 16:00 98.5 126 21 101/66 (78) 94 12/23/17 15:34 94 40 12/23/17 15:00 125 12/23/17 14:00 123 12/23/17 13:00 124 12/23/17 12:00 98.2 133 21 134/85 (101) 93 12/23/17 12:00 133 12/23/17 11:19 95 40 12/23/17 11:00 130 . Laboratory Tests Test 12/24/17 09:05 White Blood Count 7.3 TH/MM3 Red Blood Count 3.37 MIL/MM3 Hemoglobin 9.7 GM/DL Hematocrit 30.8 % Mean Corpuscular Volume 91.6 FL Mean Corpuscular Hemoglobin 28.9 PG Mean Corpuscular Hemoglobin Concent 31.6 % Red Cell Distribution Width 18.8 % Platelet Count 317 TH/MM3 Mean Platelet Volume 7.8 FL Neutrophils (%) (Auto) 79.1 % Lymphocytes (%) (Auto) 10.5 % Monocytes (%) (Auto) 10.1 % Eosinophils (%) (Auto) 0.1 % Basophils (%) (Auto) 0.2 % Neutrophils # (Auto) 5.8 TH/MM3 Lymphocytes # (Auto) 0.8 TH/MM3 Monocytes # (Auto) 0.7 TH/MM3 Eosinophils # (Auto) 0.0 TH/MM3 Basophils # (Auto) 0.0 TH/MM3 CBC Comment AUTO DIFF Laboratory Tests Test 12/23/17 04:10 12/24/17 09:05 Blood Urea Nitrogen 22 MG/DL 28 MG/DL Creatinine 2.06 MG/DL 2.35 MG/DL Random Glucose 111 MG/DL 111 MG/DL Calcium Level 8.2 MG/DL 8.5 MG/DL Sodium Level 146 MEQ/L 147 MEQ/L Potassium Level 4.1 MEQ/L 3.9 MEQ/L Chloride Level 112 MEQ/L 112 MEQ/L Carbon Dioxide Level 23.2 MEQ/L 22.0 MEQ/L Anion Gap 11 MEQ/L 13 MEQ/L Estimat Glomerular Filtration Rate 24 ML/MIN 21 ML/MIN Imaging Last Impressions Chest X-Ray 12/21/17 0600 Signed Impressions: Service Date/Time: Thursday, December 21, 2017 04:24 - CONCLUSION: Mild bibasilar consolidation and small left pleural effusion without significant change. Perry Neri MD Abdomen/Pelvis CT 12/20/17 0000 Signed Impressions: Service Date/Time: December 21:20 - CONCLUSION: Stable appearance to the CT abdomen/pelvis were compared to 11/26/17. Right double-J stent in place, multiple gallstones, left renal mass, left lateral ventral hernia. Dorian Vaqsuez MD Upper Extremity Ultrasound 12/13/17 0000 Signed Impressions: Service Date/Time: December 13:43 - CONCLUSION: 1. No deep venous thrombosis in the left upper extremity. 2. Superficial thrombosis of the right cephalic vein. El Nuñez MD Lower Extremity Ultrasound 12/13/17 0000 Signed Impressions: Service Date/Time: December 14:26 - CONCLUSION: Normal examination. Domingo Calderon MD Head CT 12/13/17 0000 Signed Impressions: Service Date/Time: December 13:30 - CONCLUSION: Normal examination. Domingo Calderon MD Physical Exam GENERAL: awake and alert, on nasal O2, NAD SKIN: Cool and dry. No generalized rash, no ecchymoses and no evidence of embolic lesions. HEAD: Atraumatic. Normocephalic. No temporal wasting, or tenderness. EYES: [place] conjunctiva. No petechia or hemorrhage. Pupils equal, round and reactive to light. EOM full and intact. No scleral icterus. EARS, NOSE AND THROAT: Nose without bleeding or purulent nasal discharge. No sinus tenderness. Mucous membranes pink and moist. NECK: Trachea midline. Supple and not tender, no meningeal signs CARDIOVASCULAR: Regular rate and rhythm. No murmurs, rubs or gallops heard RESPIRATORY: Decreased breath sounds bilaterally ABDOMEN: Soft, obese, non-tender, nondistended. Bowel sounds present and normoactive. No guarding. No rebound. EXTREMITIES: No clubbing, cyanosis. Has bilateral pedal edema. No calf tenderness. . NEUROLOGICAL: Non-focal PSYCH: Cooperative LINE: No evidence of infection Assessment & Plan Remarks IMPRESSION UTI, with Klebsiella Kleb MDR CRE ESBL+ Previous episode of complicated UTI,, has stent in place, had obstruction - CT A/P looks ok, stent in place, no hydro Known APOLONIA Respiratory failure, chronically on BIPAP mask - stable Obesity Renal insufficiency, chronic Allergy to PCN, tolerates Cephalosporins Hx C diff colitis - recent episode during last admission RECOMMENDATION Continue Avycaz to cover CRE GNR - plan 10 days Continue po Vanco Monitor progress Seems better from pulmonary standpoint D/W Marely Aranda MD Dec 24, 2017 10:16
[2017-12-24 10:38] LABS: BANDS 3 % (0-6); CORRECTED NUCLEATED RBC 13 /100 WBC (0-0); LYMPHOCYTES 17 % (9-44); METAMYELOCYTES 1 % (0-1); MONOCYTES 13 % (0-8); MYELOCYTES 11 % (0-0); NEUTROPHIL # MANUAL DIFF 5.1 TH/MM3 (1.8-7.7); NUCLEATED RED BLOOD CELL 13 (0-0); POLYS (SEG NEUTROPHILS) 55 % (16-70)
[2017-12-24] MEDS: DILTIAZEM HCL 60 MG TAB PO SCH ×2 (12:00→17:41)
[2017-12-24] MEDS ORDERED: FUROSEMIDE 40 MG/4 ML VIAL IV PUSH ONE (16:45)
[2017-12-24] MEDS: FUROSEMIDE INJ 100 MG in SODIUM CHLORIDE 0.9% INJ 90 ML IV SCH (17:58)
--- NOTE | 2017-12-24 18:07 | PD.CONS ---
HPI Service Nephrology Consult Requested By Pasha Reason for Consult FREDDY Primary Care Physician Kirk Martell MD History of Present Illness This is a super morbidly obese female, BMI > 55, who was admitted for several weeks (admitted 11/15), discharged 12/10. She was readmitted after 2 or 3 days. Previous admission was for UTI, sepsis, FREDDY from hydronephrosis, and fluid overload. Her creatinine at discharge was around 1.1-1.3. This admission she was found unresponsive in the long-term, hypoxic, hypoglycemic. She was not intubated and in fact today is on a nasal cannula. She has MDRO Klebsiella, and is followed by ID. She was on vancomycin, her levels have been as high as 50. She is tachycardic but normotensive today. Several days ago she was hypotensive on pressors. She seems to be oliguric. Her creatinine was 1.6 on arrival, has increased and is 2.37 today. We were consulted to assist with renal management. (Suad Lucas) Review of Systems ROS Limitations: Clinical Condition Respiratory: COMPLAINS OF: Shortness of breath Cardiovascular: COMPLAINS OF: Lower Extremity Edema, DENIES: Chest pain ( Suad Lucas) Past Family Social History Allergies: Coded Allergies: penicillin G (Unverified Allergy, Severe, 05/29/17) Past Medical History Super Morbid obesity, BMI over 50 Chronic respiratory failure secondary to APOLONIA, OHS and bronchial asthma A fib HTN Dyslipidemia GERD Recurrent MRSA pneumonia Depression Constipation Prior FREDDY Fluid overload Immobility Pressure ulcers Past Surgical History Urethral stent placement by urology Hiatal hernia surgery Appendectomy tracheostomy since decannulated Reported Medications Metoprolol Tartrate 25 Mg Tab 12.5 Mg PO Q12HR 30 Days Vancomycin Inj (Vancomycin HCl) 500 Mg Inj 125 Mg PO QID 4 Days Hydrocodone-Acetaminophen 5-325 mg Tab 1 Tab PO Q6H PRN Xanax (Alprazolam) 1 Mg Tab 1 Mg PO BID PRN Lactinex (Lactobacillus Acidophilus) 1 Chew 1 Tab CHEW TID 10 Days Famotidine 20 Mg Tab 10 Mg PO BID Reported Zoloft (Sertraline HCl) 100 Mg Tab 100 Mg PO DAILY Xopenex Neb (Levalbuterol HCl) 1.25 Mg/3 Ml Neb 1.25 Mg NEB Q4HR Vitamin C (Ascorbic Acid) 500 Mg Capsule 500 Mg PO BID Potassium Chloride ER (Potassium Chloride) 20 Meq Tab 20 Meq PO DAILY Novolin R Inj (Insulin Human Regular) 1,000 Unit/10 Ml Vial 0 SQ DIRECTED Sliding Scale As Directed. One Daily Plus Minerals (Multivitamin with Minerals) 1 Each Tablet Levemir Inj (Insulin Detemir) 1,000 unit/ 10 ML Vial 40 Units SQ BID Do not mix with any other Insulin. Lasix (Furosemide) 40 Mg Tab 40 Mg PO DAILY Perforomist Neb (Formoterol Fumarate) 20 Mcg/2 Ml Neb 1 Nebule INH BID Diltiazem (Diltiazem HCl) 90 Mg Tab 90 Mg PO DAILY Budesonide Neb 0.5 Mg/2 Ml Neb 0.5 Mg NEB Q12HR NEB Zofran Odt (Ondansetron Odt) 4 Mg Tab 4 Mg SL Q6HR PRN Sennosides 8.6 Mg Tab 17.2 Mg PO BID Glucagen Hypokit Inj Kit (Glucagon (Rdna) Inj Kit) 1 Mg Kit 1 Mg IM ONCE PRN Flomax (Tamsulosin HCl) 0.4 Mg Cap 0.4 Mg PO HS Albuterol Neb (Albuterol Sulfate) 2.5 Mg/3 Ml Neb 2.5 Mg NEB Q4HR PRN While awake Acetylcysteine Liq/Neb (Acetylcysteine) 200 mg/ml Soln 4 Ml NEB Q8HR PRN Lyrica (Pregabalin) 75 Mg Cap 75 Mg PO DAILY Active Ordered Medications Current Medications Medications (Trade) Dose Ordered Sig/Mirta Route Start Time Stop Time Status Last Admin (NS Flush) 2 ml UNSCH PRN IV FLUSH 12/13/17 13:30 (NS Flush) 2 ml BID IV FLUSH 12/13/17 21:00 12/23/17 21:25 (Tylenol) 650 mg Q6H PRN PO 12/13/17 13:30 12/14/17 09:42 (Protonix) 40 mg DAILY PO 12/14/17 09:00 12/24/17 08:46 (Zofran Inj) 4 mg Q6H PRN IV PUSH 12/13/17 13:30 Miscellaneous Information 1 Q361D XX 12/13/17 13:30 12/13/17 13:30 (Chlorhexidine 2% Cloth) Taper DAILY@04 TOP 12/14/17 04:00 12/10/18 03:59 12/21/17 03:38 (Chlorhexidine 2% Cloth) 3 pack UNSCH PRN TOP 12/13/17 13:30 (Zelda-Colace) 1 tab BID PO 12/13/17 21:00 12/24/17 08:46 (Milk Of Magnesia Liq) 30 ml Q12H PRN PO 12/13/17 13:30 (Senokot) 17.2 mg Q12H PRN PO 12/13/17 13:30 (Dulcolax Supp) 10 mg DAILY PRN RECTAL 12/13/17 13:30 (Lactulose Liq) 30 ml DAILY PRN PO 12/13/17 13:30 (Xanax) 1 mg BID PRN PO 12/13/17 13:30 (Pulmicort Respule Neb) 0.5 mg Q12HR NEB NEB 12/13/17 20:00 12/24/17 07:34 (KCl) 20 meq DAILY PO 12/14/17 09:00 12/24/17 08:46 (Lyrica) 75 mg DAILY PO 12/14/17 09:00 12/24/17 08:47 (Zoloft) 100 mg DAILY PO 12/14/17 09:00 12/24/17 08:45 (Vancomycin 25 Mg/ml Liq) 125 mg QID PO 12/13/17 18:00 12/24/17 13:00 (Vitamin C) 500 mg BID PO 12/13/17 21:00 12/24/17 08:46 (Lactinex) 1 tab TID PO 12/13/17 18:00 12/24/17 13:00 (D50w (Vial) Inj) 50 ml UNSCH PRN IV PUSH 12/13/17 13:30 12/19/17 22:25 (Glucagon Inj) 1 mg UNSCH PRN OTHER 12/13/17 13:30 (NovoLIN R SUPPLEMENTAL SCALE) 1 ACHS SLIDING SCALE SQ 12/13/17 17:00 12/14/17 17:00 (Pill Splitter) 1 ea UNSCH PRN OTHER 12/13/17 13:30 (Xarelto) 10 mg DAILY PO 12/14/17 09:00 12/24/17 08:47 (Mycostatin Powder) 1 applic Q12HR TOPICAL 12/13/17 21:00 12/24/17 09:00 (Trandate Inj) 10 mg Q1HR PRN IV PUSH 12/13/17 17:00 (Nitroglycerin 2% Oint) 2 inch Q6HR PRN TOPICAL 12/13/17 18:00 (Apresoline Inj) 10 mg Q1HR PRN IV PUSH 12/13/17 17:00 Phenylephrine HCl 160 mg/Dextrose 500 ml @ 7.5 mls/hr TITRATE PRN IV 12/15/17 11:00 12/19/17 22:25 (Brethine Inj) 1 mg UNSCH PRN SQ 12/15/17 10:15 (Bactroban Nasal 2% Oint) Taper BID EACH NARE 12/15/17 21:00 12/11/18 20:59 12/24/17 08:45 Ceftazidime/ Avibactam 0.94 gm/ Sodium Chloride 50 ml @ 25 mls/hr Q12HR IV 12/20/17 13:00 12/24/17 09:51 (SoluMEDROL INJ) 40 mg BID IV 12/20/17 21:00 12/24/17 08:46 (Duoneb Neb) 1 ampule Q4HR NEB NEB 12/23/17 12:00 12/24/17 15:25 (Duoneb Neb) 1 ampule Q2HR NEB PRN NEB 12/23/17 09:45 (Cardizem) 60 mg Q6HR PO 12/24/17 12:00 12/24/17 12:00 (Lopressor) 100 mg Q12HR PO 12/24/17 21:00 Furosemide 100 mg/ Sodium Chloride 100 ml @ 20 mls/hr CONTINUOUS IV 12/24/17 17:00 Family History Non contributory Social History Resides in long-term She is bedbound Non smoking (Suad Lucas) Physical Exam Vital Signs Vital Signs Date Time Temp Pulse Resp B/P (MAP) Pulse Ox O2 Delivery O2 Flow Rate FiO2 12/24/17 16:00 116 18 121/79 (93) 98 12/24/17 16:00 111 12/24/17 14:00 111 12/24/17 12:00 114 18 109/71 (84) 98 12/24/17 12:00 111 12/24/17 11:07 95 Nasal Cannula 4.00 12/24/17 10:00 121 12/24/17 08:00 121 18 125/90 (102) 96 12/24/17 08:00 121 12/24/17 07:34 96 40 12/24/17 06:00 136 12/24/17 04:00 129 12/24/17 04:00 129 17 96/59 (71) 96 12/24/17 03:56 98 40 12/24/17 03:00 135 12/24/17 02:00 124 12/24/17 00:49 96 40 12/24/17 00:00 118 12/24/17 00:00 118 14 117/62 (80) 95 12/23/17 23:00 122 15 109/58 (75) 95 12/23/17 22:00 134 12/23/17 22:00 134 19 109/59 (76) 95 12/23/17 21:00 134 15 118/76 (90) 94 12/23/17 21:00 134 12/23/17 20:00 136 21 124/90 (101) 94 12/23/17 20:00 136 12/23/17 19:53 96 40 12/23/17 18:00 123 Physical Exam Morbidly obese female Awake, on oxygen, not in distress. Shallow respirations, some upper airway gurgling S1/S2, tachy 110s, no murmur Abd obese, soft, non tender Ext: 4+ edema, some weeping Distal pulses 2+ Laboratory Laboratory Tests Test 12/24/17 08:20 12/24/17 09:05 Blood Gas Puncture Site RT RADIAL Blood Gas Patient Temperature 98.6 Blood Gas HCO3 19 Blood Gas Base Excess -6.6 Blood Gas Oxygen Saturation 94 Arterial Blood pH 7.29 Arterial Blood Partial Pressure CO2 41 Arterial Blood Partial Pressure O2 86 Arterial Blood Oxygen Content 12.7 Arterial Blood Carboxyhemoglobin 0.9 Arterial Blood Methemoglobin 1.2 Blood Gas Hemoglobin 9.5 Oxygen Delivery Device BIPAP 6EPAP/16IPAP Blood Gas Inspired Oxygen 40 White Blood Count 7.3 Red Blood Count 3.37 Hemoglobin 9.7 Hematocrit 30.8 Mean Corpuscular Volume 91.6 Mean Corpuscular Hemoglobin 28.9 Mean Corpuscular Hemoglobin Concent 31.6 Red Cell Distribution Width 18.8 Platelet Count 317 Mean Platelet Volume 7.8 Neutrophils (%) (Auto) 79.1 Lymphocytes (%) (Auto) 10.5 Monocytes (%) (Auto) 10.1 Eosinophils (%) (Auto) 0.1 Basophils (%) (Auto) 0.2 Neutrophils # (Auto) 5.8 Lymphocytes # (Auto) 0.8 Monocytes # (Auto) 0.7 Eosinophils # (Auto) 0.0 Basophils # (Auto) 0.0 CBC Comment AUTO DIFF Differential Total Cells Counted 100 Neutrophils % (Manual) 55 Band Neutrophils % 3 Lymphocytes % 17 Monocytes % 13 Neutrophils # (Manual) 5.1 Metamyelocytes 1 Myelocytes 11 Nucleated Red Blood Cells 13 Differential Comment FINAL DIFF MANUAL Platelet Estimate NORMAL Platelet Morphology Comment NORMAL Polychromasia 2.0 Blood Urea Nitrogen 28 Creatinine 2.35 Random Glucose 111 Calcium Level 8.5 Sodium Level 147 Potassium Level 3.9 Chloride Level 112 Carbon Dioxide Level 22.0 Anion Gap 13 Estimat Glomerular Filtration Rate 21 Date/Time Source Procedure Growth Status 12/20/17 12:13 Blood Peripheral Aerobic Blood Culture - Final [place] Spp Resulted 12/20/17 12:13 Blood Peripheral Anaerobic Blood Culture - Preliminary NO GROWTH IN 4 DAYS Resulted 12/21/17 00:00 Urine Clean Catch Urine Culture - Final 50-100,000 CFU/ML MIXED BERNA... Complete (Suad Lucas) Result Diagram: 12/24/1790412/24/17 0905 Imaging Last 72 hours Impressions Chest X-Ray 12/23/17 0600 Signed Impressions: Service Date/Time: Saturday, December 23, 2017 03:43 - CONCLUSION: No significant change. Perry Neri MD (Suad Lucas) Assessment and Plan Problem List: (1) FREDDY (acute kidney injury) ICD Codes: N17.9 - Acute kidney failure, unspecified Plan: Last month she had hydronephrosis requiring a urethral stent, then needed aggressive fluid removal Her best creatinine at discharge was 1.2 FREDDY this admission is multifactorial: She was on IV vancomycin, last dose 12/18. On the her level was almost 50. May have suffered vancomycin induced nephrotoxicity She was also hypotensive on pressors until 12/19. May have suffered hypoperfusion injury, possibly ATN Also has UTI; and finally allergic interstitial nephritis is on the differential. CT abd/pel not suggesting obstruction She needs fluid removal Start Lasix gtt, bolus ordered. Appears oliguric, monitor urine output If renal function declines she may required dialysis. However, given her chronic medical issues she may not do well on dialysis. Will have to discuss goals with the patient and family if she declines further. Repeat labs daily. Replace K and Mag as needed. Avoid nephrotoxic agents, renally dose when appropriate. Consider stopping/holding Xarelto during FREDDY (2) Hypernatremia ICD Codes: E87.0 - Hyperosmolality and hypernatremia Plan: PO fluids encouraged Consider alternating Diuril with Lasix May need hypotonic fluids (3) Afib ICD Codes: I48.91 - Unspecified atrial fibrillation Status: Chronic Plan: Persistently tachycardic On PO Cardizem, increase metoprolol to 100 mg BID (4) Respiratory failure ICD Codes: J96.90 - Respiratory failure, unspecified, unspecified whether with hypoxia or hypercapnia Plan: She has not required intubation this admission BiPap as needed (5) Anemia ICD Codes: D64.9 - Anemia, unspecified Plan: Check iron profile (6) UTI (urinary tract infection) ICD Codes: N39.0 - Urinary tract infection, site not specified Plan: ID is following. She is on Avycaz currently (previously on IV vancomycin, doxycycline, aztreonam , flagyl, and gentamicin) (Suad Lucas) Assessment and Plan patient was seen and examined. Agree with above assessment and plan. Diuresis. Close monitoring of urine output and renal function. Avoid nephrotoxic agents. Prognosis is guarded. (Mohinder Lopez MD) Problem Qualifiers (1) Afib: Qualified Codes: I48.2 - Chronic atrial fibrillation Suad Lucas Dec 24, 2017 18:07 Mohinder Lopez MD Dec 25, 2017 10:50
--- NOTE | 2017-12-24 18:26 | HHI.PR ---
Subjective Remarks Awake and responds to questions. Feels better. On BiPAP.. No fever. O2 at 3l, daytime. Objective Vital Signs Date Time Temp Pulse Resp B/P (MAP) Pulse Ox O2 Delivery O2 Flow Rate FiO2 12/24/17 16:00 116 18 121/79 (93) 98 12/24/17 16:00 111 12/24/17 14:00 111 12/24/17 12:00 114 18 109/71 (84) 98 12/24/17 12:00 111 12/24/17 11:07 95 Nasal Cannula 4.00 12/24/17 10:00 121 12/24/17 08:00 121 18 125/90 (102) 96 12/24/17 08:00 121 12/24/17 07:34 96 40 12/24/17 06:00 136 12/24/17 04:00 129 12/24/17 04:00 129 17 96/59 (71) 96 12/24/17 03:56 98 40 12/24/17 03:00 135 12/24/17 02:00 124 12/24/17 00:49 96 40 12/24/17 00:00 118 12/24/17 00:00 118 14 117/62 (80) 95 12/23/17 23:00 122 15 109/58 (75) 95 12/23/17 22:00 134 12/23/17 22:00 134 19 109/59 (76) 95 12/23/17 21:00 134 15 118/76 (90) 94 12/23/17 21:00 134 12/23/17 20:00 136 21 124/90 (101) 94 12/23/17 20:00 136 12/23/17 19:53 96 40 I/O 12/23/17 12/23/17 12/23/17 12/24/17 12/24/17 12/24/17 07:00 15:00 23:00 07:00 15:00 23:00 Intake Total 100 ml 1646 ml Output Total 250 ml 175 ml 150 ml Balance -150 ml 1471 ml -150 ml Intake Oral 100 ml Tube Feeding 746 ml Other 900 ml Output Urine Total 250 ml 175 ml 150 ml # Bowel Movements 3 3 Result Diagram: 12/24/1790412/24/17904 Objective Remarks GENERAL: This is a Obese elderly W/F patient, in no apparent distress. CARDIOVASCULAR: Regular rate and rhythm without murmurs, gallops, or rubs. RESPIRATORY: Diffuse expiratory wheezes, diminished breath sounds bilaterally. Occ Crackles at bases . GASTROINTESTINAL: Abdomen soft, non-tender,nondistended. Normal active bowel sounds MUSCULOSKELETAL: Extremities without clubbing, cyanosis,but has 2 + edema. NEURO: Alert & Oriented x4 to person, place. Moves all Extremities. Assessment and Plan Assessment and Plan (1) Acute hypercapnic respiratory failure Diagnosis: Principal (2) Hypoglycemia Diagnosis: Principal (3) BMI 50.0-59.9, adult Diagnosis: Principal (4) Afib Diagnosis: Secondary (5) Dyslipidemia Diagnosis: Secondary (6) Peripheral neuropathy Diagnosis: Secondary (7) Diabetes mellitus Diagnosis: Principal (8) Essential hypertension Diagnosis: Principal (9) Hiatal hernia Diagnosis: Secondary (10) Gastroesophageal reflux disease Diagnosis: Secondary (11) Chronic kidney disease (CKD) stage G3a/A3, moderately decreased glomerular filtration rate (GFR) between 45-59 mL/min/1.73 square meter and albuminuria creatinine ratio greater than 300 mg/g Diagnosis: Secondary Plan : 1. Cont BIPAP15/6, FIO2 30 % at HS 2. Continue antibiotics. 3.D/C solumedrol 40 mg bid. 4. Duonebs qid. 5. O2 3L daytime 6. PT and OT. 7. Cont Diuretic daily 8. Will Arrange home BiPAP . 9.Add Prednisone 20 mg bid Francoise Poon MD Dec 24, 2017 18:26
[2017-12-24] MEDS: SODIUM CHLORIDE 0.9% FLUSH 10 ML FLUSH IV FLUSH SCH ×2 (21:02→21:06)
[2017-12-24] MEDS: METOPROLOL TARTRATE 25 MG TAB PO SCH (21:03)
[2017-12-24] MEDS: predniSONE 20 MG TAB PO SCH (21:03)
[2017-12-25] VITALS (38 sets, daily range): BP systolic 61–110; BP diastolic 29–71; PULSE 87–130; RESP 11–30; TEMP 98–98.5; O2SAT 91–100
[2017-12-25] MEDS: FUROSEMIDE INJ 100 MG in SODIUM CHLORIDE 0.9% INJ 90 ML IV SCH ×3 (00:09→13:55)
[2017-12-25] MEDS: cefTAZidime/AVIBACTAM INJ 0.94 GM in SODIUM CHLORIDE 0.9% INJ 50 ML IV SCH ×3 (00:14→20:42)
[2017-12-25] MEDS: DILTIAZEM HCL 60 MG TAB PO SCH ×4 (00:14→18:00)
[2017-12-25] MEDS: RESP: ALBUTEROL 2.5 MG/IPRATROPIUM 0.5 MG NEB (SCH) NEB ×6 (03:29→23:17)
[2017-12-25] MEDS: CHLORHEXIDINE GLUCONATE 2 % 1 PACK (2 CLOTHS) TOP SCH (04:00)
[2017-12-25 04:18] LABS: HEMATOCRIT 29.2 % (35.0-46.0); HEMOGLOBIN 9.4 GM/DL (11.6-15.3); MEAN CELL VOLUME 92.2 FL (80.0-100.0); MEAN CORPUSCULAR HEMOGLOBIN 29.6 PG (27.0-34.0); MEAN CORPUSCULAR HGB CONC 32.1 % (32.0-36.0); MEAN PLATELET VOLUME 7.9 FL (7.0-11.0); PLATELET COUNT 239 TH/MM3 (150-450); RED BLOOD COUNT 3.16 MIL/MM3 (4.00-5.30); RED CELL DISTRIBUTION WIDTH 18.6 % (11.6-17.2); WHITE BLOOD COUNT 9.4 TH/MM3 (4.0-11.0)
[2017-12-25 04:41] LABS: BICARBONATE 22.9 MEQ/L (21.0-32.0); BLOOD UREA NITROGEN 30 MG/DL (7-18); CALCIUM 8.3 MG/DL (8.5-10.1); CHLORIDE 112 MEQ/L (98-107); CREATININE 2.35 MG/DL (0.50-1.00); GLOMERULAR FILTRATION RATE 21 ML/MIN (>89); GLUCOSE,RANDOM 103 MG/DL (74-106); SODIUM (NA) 148 MEQ/L (136-145)
[2017-12-25 04:42] LABS: IRON (FE) 68 MCG/DL (50-170); PHOSPHORUS 5.1 MG/DL (2.5-4.9)
[2017-12-25 04:51] LABS: % SATURATION IRON PROFILE 35.7 % (20-50); TOTAL IRON BINDING CAPACITY 190 MCG/DL (250-450)
[2017-12-25] MEDS: RESP: BUDESONIDE 0.5 MG/2 ML NEB NEB SCH ×2 (07:39→20:14)
--- NOTE | 2017-12-25 07:43 | HHI.CCPN ---
Subjective Remarks/Hospital Course This is a 67-year-old female. Date of admission 12/13/2017. Past medical history includes elevated BMI, chronic asthma on chronic oxygen, atrial fibrillation/rate controlled, hypertension dyslipidemia. Today, patient presents to [facility] emergency department after being found unresponsive at the senior care. She was just discharged from the hospital 12/10/2017 from [facility]. She is morbidly obese with multiple severe chronic illnesses and was both in respiratory distress and decreased responsiveness at the same time. She was noted to be hypoxic with saturations in the e 80s with nasal cannula. Was brought in on BiPAP. Accu-Chek was in the 30s when paramedics found her. Initial GCS was reported as 3. She received some D10 through a right arm PICC line but upon arrival staff felt that the PICC line was not working properly. Patient cannot provide any history or review of systems. She arrives critically ill Patient received D50 and a central line in the right internal jugular was placed by ED physician as no significant access was available. Chest x-ray revealed no acute cardiopulmonary findings. After being placed on BiPAP and receiving glucose patient's mentation is much improved and likely can be removed in the ICU. Less confused when evaluated in the ED. UA is positive. Previous history of Pseudomonas sensitive to aztreonam 3: Currently resting in bed in no acute distress on 3 L nasal cannula. Overnight on BiPAP/Venturi mask currently on 3 L nasal cannula. Difficult to arouse but once arousable does follow commands in all 4 extremities but weakly. Blood sugar 135. ABG currently pending Subjective 12/15: Afebrile. Resting in bed on nasal cannula. Arousable and following commands. Ill-definition due to hypo-tension. I will place arterial line secondary to body habitus. She does not appear septic. She is more awake and alert and attentive today as compared to yesterday. 3: Alert and oriented 3, responding to questions appropriately. Arterial line inability to play secondary to body habitus. Patient remained on phenylephrine during the night but now map remains less than 60 will resume phenylephrine infusion, and initiate Midodrine. 12/17: Hemodynamically stable. Phenylephrine infusion off since last night. MAP 80's. Patient alert and oriented, tolerating diet/breakfast. 12/18: Late entry note. Hemodynamically stable. Decrease FiO2 requirements currently on 2 L nasal cannula O2 saturation 97-98 %. RECONSULT 12/19: Patient became hemodynamically unstable this afternoon requiring reinitiation of phenylephrine infusion currently at 70 mcgs/minute. 12/20: Patient became somnolent last evening noted respiratory acidosis around 2 AM. Patient placed back on BiPAP. ID has been consulted for MDR Klebsiella. Patient awake and alert this afternoon, and denies pain. 12/21: Respiratory status much improved, and to remain on BiPAP at night while sleeping. ABGs improved. Patient hemodynamically stable no vasopressor requirements at this time. IV fluids discontinued. Patient tolerating a diet. 12/22: Patient remains a respiratory acidosis, slightly more lethargic today. Patient placed on BiPAP with exception of meals today. Repeat ABG pending this afternoon 12/23: ABG's and neuro status unchanged. Patient remains on BiPAP with exception of meals. Repeat ABG pending this afternoon. Ammonia level ordered. 12/24 Patient is on BIPAP 15/5 with 40% . In Afib with RVR 12/25 No events overnight. Remains on BIPAP. Started on Lasix drip per renal 20mg /hr Objective Vital Signs Date Time Temp Pulse Resp B/P (MAP) Pulse Ox O2 Delivery O2 Flow Rate FiO2 12/25/17 06:00 105 12/25/17 04:00 98.3 11 94/57 (69) 95 12/25/17 03:29 40 12/24/17 19:47 Nasal Cannula 5.00 Intake and Output 12/25/17 12/25/17 12/26/17 08:00 16:00 00:00 Intake Total 120 ml Output Total 651 ml Balance -531 ml Result Diagram: 12/25/17 0413 12/25/17 0413 Other Results Laboratory Tests Test 12/24/17 08:20 12/24/17 09:05 12/25/17 04:13 Blood Gas Puncture Site RT RADIAL Blood Gas Patient Temperature 98.6 Blood Gas HCO3 19 mmol/L Blood Gas Base Excess -6.6 mmol/L Blood Gas Oxygen Saturation 94 % Arterial Blood pH 7.29 Arterial Blood Partial Pressure CO2 41 mmHg Arterial Blood Partial Pressure O2 86 mmHg Arterial Blood Oxygen Content 12.7 Vol % Arterial Blood Carboxyhemoglobin 0.9 % Arterial Blood Methemoglobin 1.2 % Blood Gas Hemoglobin 9.5 G/DL Oxygen Delivery Device BIPAP 6EPAP/16IPAP Blood Gas Inspired Oxygen 40 % White Blood Count 7.3 TH/MM3 9.4 TH/MM3 Red Blood Count 3.37 MIL/MM3 3.16 MIL/MM3 Hemoglobin 9.7 GM/DL 9.4 GM/DL Hematocrit 30.8 % 29.2 % Mean Corpuscular Volume 91.6 FL 92.2 FL Mean Corpuscular Hemoglobin 28.9 PG 29.6 PG Mean Corpuscular Hemoglobin Concent 31.6 % 32.1 % Red Cell Distribution Width 18.8 % 18.6 % Platelet Count 317 TH/MM3 239 TH/MM3 Mean Platelet Volume 7.8 FL 7.9 FL Neutrophils (%) (Auto) 79.1 % Lymphocytes (%) (Auto) 10.5 % Monocytes (%) (Auto) 10.1 % Eosinophils (%) (Auto) 0.1 % Basophils (%) (Auto) 0.2 % Neutrophils # (Auto) 5.8 TH/MM3 Lymphocytes # (Auto) 0.8 TH/MM3 Monocytes # (Auto) 0.7 TH/MM3 Eosinophils # (Auto) 0.0 TH/MM3 Basophils # (Auto) 0.0 TH/MM3 CBC Comment AUTO DIFF AUTO DIFF Differential Total Cells Counted 100 Neutrophils % (Manual) 55 % Band Neutrophils % 3 % Lymphocytes % 17 % Monocytes % 13 % Neutrophils # (Manual) 5.1 TH/MM3 Metamyelocytes 1 % Myelocytes 11 % Nucleated Red Blood Cells 13 /100 WBC Differential Comment FINAL DIFF MANUAL Platelet Estimate NORMAL Platelet Morphology Comment NORMAL Polychromasia 2.0 % Blood Urea Nitrogen 28 MG/DL 30 MG/DL Creatinine 2.35 MG/DL 2.35 MG/DL Random Glucose 111 MG/DL 103 MG/DL Calcium Level 8.5 MG/DL 8.3 MG/DL Sodium Level 147 MEQ/L 148 MEQ/L Potassium Level 3.9 MEQ/L 4.2 MEQ/L Chloride Level 112 MEQ/L 112 MEQ/L Carbon Dioxide Level 22.0 MEQ/L 22.9 MEQ/L Anion Gap 13 MEQ/L 13 MEQ/L Estimat Glomerular Filtration Rate 21 ML/MIN 21 ML/MIN Phosphorus Level 5.1 MG/DL Iron Level 68 MCG/DL Total Iron Binding Capacity 190 MCG/DL Percent Iron Saturation 35.7 % Imaging Last Impressions Chest X-Ray 12/23/17 0600 Signed Impressions: Service Date/Time: Saturday, December 23, 2017 03:43 - CONCLUSION: No significant change. Perry Neri MD Abdomen/Pelvis CT 12/20/17 0000 Signed Impressions: Service Date/Time: December 21:20 - CONCLUSION: Stable appearance to the CT abdomen/pelvis were compared to 11/26/17. Right double-J stent in place, multiple gallstones, left renal mass, left lateral ventral hernia. Dorian Vasquez MD Upper Extremity Ultrasound 12/13/17 0000 Signed Impressions: Service Date/Time: December 13:43 - CONCLUSION: 1. No deep venous thrombosis in the left upper extremity. 2. Superficial thrombosis of the right cephalic vein. El Nuñez MD Lower Extremity Ultrasound 12/13/17 0000 Signed Impressions: Service Date/Time: December 14:26 - CONCLUSION: Normal examination. Domingo Calderon MD Head CT 12/13/17 0000 Signed Impressions: Service Date/Time: December 13:30 - CONCLUSION: Normal examination. Domingo Calderon MD Objective Remarks GENERAL: 67-year-old super morbidly obese female resting in bed on BiPAP, lethargic but easily arousable and follows commands SKIN: Warm and dry. HEAD: Atraumatic. Normocephalic. EYES: Pupils equal and round about 3 mm bilaterally and reactive. No scleral icterus. No injection or drainage. ENT: No nasal bleeding or discharge. Mucous membranes pink and moist. NECK: Trachea midline. No JVD. CARDIOVASCULAR: IRR. Distant heart tones. S1, S2. No S4. Without murmur RESPIRATORY: Diminished breath sounds throughout due to body habitus. No wheezing is appreciated. Breath sounds equal bilaterally. GASTROINTESTINAL: Abdomen soft, obese, nontender. Hypoactive bowel sounds are appreciated MUSCULOSKELETAL: Extremities with 2+ bilateral upper and lower extremity edema NEUROLOGICAL: Awake and alert to person place. No obvious cranial nerve deficits. Motor grossly within normal limits. 5/5 muscle strength in the arms and legs. Date of Insertion: Dec 13, 2017 Line: Central Venous Catheter Side: Right Location: Internal, Jugular A/P Assessment and Plan Neuro/Psych: Chronic benzodiazepine use Depression disorder NOS Acute toxic metabolic encephalopathy likely secondary to hypoglycemia/CO2 retention Diabetic neuropathy Chronic pain syndrome with chronic narcotic use Acetaminophen 650 mg p.o. every 6 hours as needed fever/pain 1 through 5 Continuing alprazolam 1 mg p.o. twice daily as needed anxiety Holding hydrocodone/acetaminophen 5/321 tablet every 6 hours as needed pain Continue sertraline 100 mg p.o. daily for depression Continue pregabalin 75 mg p.o. daily for peripheral neuropathy CT brain 12/13 revealed no acute intracranial findings CV: Atrial fibrillation with RVR Hypertension On Lopressor 50mg Q12, Cardizem 60mg Q6, Monitor HR and BP keep MAP>65mmHg 2D echocardiogram 12/02 - normal left ventricular size. Wall thickness is measured at the upper limits of normal. The left ventricular systolic function is low normal with an estimated ejection fraction in the range of 50-55%. The left atrial size is mildly dilated. The right atrial size is moderately dilated. There is trace tricuspid valve regurgitation. Resp: Acute hypoxic respiratory failure APOLONIA/OHS History recurrent MRSA pneumonia Continue with oxygen keep sats >92% Currently in albuterol/ipratropium aerosols every 6 hours with albuterol aerosols every 2 hours dyspnea Continue budesonide 0.5 mg/2 mL nebulizers every 12 hours On Prednisone 20mg BID Pulmonary is following GI: BMI greater than 50 Gastroesophageal reflux disease 2200 KCal ADA diet Pantoprazole for GI prophylaxis. Patient is on famotidine 20 mg p.o. daily at home Docusate sodium/senna 1 tablet twice daily for bowel regimen. Patient is on senna 8.6 mg twice daily at home Continue ondansetron 4 mg every 6 hours as needed nausea : CKD Monitor renal function, I/O's, avoid nephrotoxins Cr: 2.35 today with UOP: 775 ml in 24 hrs Renal is following started on Lasix drip 20mg/hr yesterday per renal. Dr. Thao Solitario catheter to maintain patency with recent pyelonephritis/GJ placement. Outpatient J stent removal by urology placed during last hospitalization 12/02 12/20 CT abd/pelvis: No hydronephrosis Endo: Diabetes mellitus Acute hypoglycemia-resolved Sliding scale insulin with Novulin R with Accu-Cheks to maintain euglycemia before meals at bedtime. Heme: Normocytic anemia Chronic Rivaroxaban use Right cephalic vein superficial thrombus Monitor CBC Continue with rivaroxaban 10 mg daily ID: Urinary tract infection/gram-negative eugenio History of MRSA History of C. difficile Currently on PO vancomycin, Avycaz per ID Monitor for signs of infections ( Fever, WBC) Pertinent cultures Urine Legionella pneumococcal antigens negative Urine culture 12/13 Klebsiella ESBL Access -Right IJ CVL placed the ED 12/13 -d/c central line and place peripheral IV's Prophylaxis -GI -pantoprazole -DVT -SCD/rivaroxaban Level 2 Juma Pak MD Dec 25, 2017 07:43
[2017-12-25] MEDS: INSULIN NovoLIN REGULAR SUPPLEMENTAL SCALE SQ SCH ×4 (08:00→21:00)
[2017-12-25] MEDS: VANCOMYCIN 25 MG/ML SOLN 100 ML BOTTLE PO SCH ×3 (08:18→18:00)
[2017-12-25] MEDS: METOPROLOL TARTRATE 25 MG TAB PO SCH ×2 (08:19→20:43)
[2017-12-25] MEDS: NYSTATIN 100,000 U/GM PWD 15 GM BTL TOPICAL SCH ×2 (08:19→22:20)
[2017-12-25] MEDS: SERTRALINE HCL 100 MG TAB PO SCH (08:19)
[2017-12-25] MEDS: PREGABALIN 75 MG CAP PO SCH (08:20)
[2017-12-25] MEDS: DOCUSATE SODIUM 50 MG/SENNA 8.6 MG TAB PO SCH ×2 (08:20→20:42)
[2017-12-25] MEDS: RIVAROXABAN 10 MG TAB PO SCH (08:20)
[2017-12-25 08:21] LABS: BANDS 2 % (0-6); CORRECTED NUCLEATED RBC 10 /100 WBC (0-0); LYMPHOCYTES 11 % (9-44); METAMYELOCYTES 1 % (0-1); MONOCYTES 5 % (0-8); NEUTROPHIL # MANUAL DIFF 7.9 TH/MM3 (1.8-7.7); NUCLEATED RED BLOOD CELL 10 (0-0); POLYS (SEG NEUTROPHILS) 81 % (16-70)
[2017-12-25] MEDS: LACTOBACILLUS ACIDOPHILUS TAB PO SCH ×3 (08:21→18:23)
[2017-12-25] MEDS: predniSONE 20 MG TAB PO SCH ×2 (08:21→20:46)
[2017-12-25] MEDS: PANTOPRAZOLE SOD 40 MG DELAYED RELEASE TAB PO SCH (08:21)
[2017-12-25] MEDS: ASCORBIC ACID 500 MG TAB PO SCH ×2 (08:21→20:42)
[2017-12-25] MEDS: SODIUM CHLORIDE 0.9% FLUSH 10 ML FLUSH IV FLUSH SCH ×2 (09:00→20:42)
[2017-12-25] MEDS: MUPIROCIN 2% OINT 1 APPLIC/GM SYR EACH NARE SCH ×2 (09:00→20:42)
--- NOTE | 2017-12-25 10:16 | HHI.NPPN ---
Subjective Complaints: Shortness of Breath Renal Failure: Acute Interval History She is more alert today. Renal function stable. Urine output has improved. Off BiPap. (Suad Lucas) Review of Systems Respiratory Lungs: SOB (Suad Lucas) Cardiovascular Cardiac: Edema (Suad Lucas) Objective Data Data Vital Signs Date Time Temp Pulse Resp B/P (MAP) Pulse Ox O2 Delivery O2 Flow Rate FiO2 12/25/17 08:00 98.3 105 16 105/61 (76) 95 12/25/17 08:00 105 12/25/17 07:40 98 40 12/25/17 06:00 105 12/25/17 04:00 105 12/25/17 04:00 98.3 105 11 94/57 (69) 95 12/25/17 03:29 97 40 12/25/17 02:00 94 12/25/17 00:00 98.0 87 14 110/56 (74) 93 12/25/17 00:00 87 12/24/17 23:31 95 40 12/24/17 22:36 93 40 12/24/17 22:00 100 12/24/17 20:00 98.2 115 16 115/71 (86) 96 12/24/17 20:00 115 12/24/17 19:47 95 Nasal Cannula 5.00 12/24/17 18:00 111 12/24/17 16:00 116 18 121/79 (93) 98 12/24/17 16:00 111 12/24/17 14:00 111 12/24/17 12:00 114 18 109/71 (84) 98 12/24/17 12:00 111 12/24/17 11:07 95 Nasal Cannula 4.00 (Suad Lucas) -: 12/25/17 0413 12/25/17 0413 Imaging Last 72 hours Impressions Chest X-Ray 12/23/17 0600 Signed Impressions: Service Date/Time: Saturday, December 23, 2017 03:43 - CONCLUSION: No significant change. Perry Neri MD Tubes & Lines: Solitario Tubes & Lines Comment TLC Drip Comment Lasix @ 20 mg/hr (Suad Lucas) Physical Exam General Appearance: Well Developed, No Acute Distress, Comfortable, Obese (Suad Lucas. [employer]GER) Throat Throat Exam: Oral Mucosa Mikes & Moist (Suad Lucas [employer]TE[employer] MARKETING MANAGER) Pulmonary Resp Exam: Clear Bilaterally, Breath Sounds Equal Resp Remarks shallow resp (Suad Lucas [employer]TEGR[employer] MARKETING MANAGER) Cardiology CV Exam: Good Perfusion, Irregular, Tachycardia (Suad Lucas [employer]TEGR[employer] MARKETING MANAGER) Gastrointestinal/Abdomen GI Exam: Soft, Non-Tender GI Remarks super morbidly obese (Suad Lucas [employer]TEGR[employer] MARKETING MANAGER) Musculoskeletal MS Exam: Joints Intact, Unable to Ambulate (Suad Lucas [employer]TE[employer] MARKETING MANAGER) Integumentary Skin Exam: Warm, Dry (Suad Lucas [employer]TE[employer] MARKETING MANAGER) Extremeties Extremities Exam: Pedal Pulses Palpable, Moderate Edema, Dependent Edema (Suad Lucas [employer]TEGR[employer] MARKETING MANAGER) Neurologic Neuro Exam: Alert, Awake, Oriented, Speech Clear, Moving All Extremities (Suad Lucas [employer]TEGR[employer] MARKETING MANAGER) Psychiatric Psych Exam: Appropriate Responses (Suad Lucas) Assessment/Plan Discussed Condition With: Patient Assessment Summary: FREDDY/Acute Renal Failure, Fluid/Volume Overload Problem List: (1) FREDDY (acute kidney injury) ICD Codes: N17.9 - Acute kidney failure, unspecified Plan: Her best creatinine at discharge was 1.2 FREDDY this admission is multifactorial: She was on IV vancomycin, last dose 12/18. On the her level was almost 50. May have suffered vancomycin induced nephrotoxicity She was also hypotensive on pressors until 12/19. May have suffered hypoperfusion injury, possibly ATN Also has UTI; and finally allergic interstitial nephritis is on the differential. Renal function has remained stable Reduce Lasix to 10 mg/hr, add Diuril BID. Improved urine output, continue to monitor Repeat labs daily. Replace K and Mag as needed. Avoid nephrotoxic agents, renally dose when appropriate. Consider stopping/holding Xarelto during FREDDY (2) Hypernatremia ICD Codes: E87.0 - Hyperosmolality and hypernatremia Plan: PO fluids encouraged, discussed with her to avoid drinking Pepsi Start Diuril (3) Afib ICD Codes: I48.91 - Unspecified atrial fibrillation Status: Chronic Plan: Persistently tachycardic On PO Cardizem and PO metoprolol (4) Respiratory failure ICD Codes: J96.90 - Respiratory failure, unspecified, unspecified whether with hypoxia or hypercapnia Plan: She has not required intubation this admission BiPap as needed (5) Anemia ICD Codes: D64.9 - Anemia, unspecified Plan: No evidence of iron deficiency (6) UTI (urinary tract infection) ICD Codes: N39.0 - Urinary tract infection, site not specified Plan: ID is following. She is on Avycaz and PO vancomycin Contact precautions (Suad Lucas) Plan patient was seen and examined. Agree with above assessment and plan. No immediate need for dialysis. (Mohinder Lopez MD) Problem Qualifiers (1) Afib: Qualified Codes: I48.2 - Chronic atrial fibrillation Suad Lucas Dec 25, 2017 10:15 Mohinder Lopez MD Dec 25, 2017 10:54
--- NOTE | 2017-12-25 11:15 | HHI.IDPN ---
Subjective Subjective Remarks Patient is a 67-year-old female, resides in the half-way, brought into the hospital after she was found unresponsive. She had a recent hospitalization where she was diagnosed to have sepsis related to complicated UTI. During that hospitalization she underwent stent placement. She also had C. difficile colitis during that admission. Patient states that she uses a BiPAP machine in the half-way usually when she is sleeping. She is nonambulatory. Denies any significant cough or congestion. No chest pain. There was no mention of any fever or chills or sweats. When she also came to the hospital this time she was on pressors for hypotension. She improved clinically and her hemodynamics stabilize. However yesterday she went hypotensive again, an infectious disease consultation has been requested to evaluate the patient. Notes reviewed D/W RN Temps ok Doing BIPAP at night and nasal O2 during day On nasal O2 ABG still with resp acidosis, bicarb lower Creatinine rising, UO low Renal notes reviewed On lasix drip Antibiotics Avycaz PO Vanco Current Medications Medications (Trade) Dose Ordered Sig/Mirta Route Start Time Stop Time Status Last Admin (NS Flush) 2 ml UNSCH PRN IV FLUSH 12/13/17 13:30 (NS Flush) 2 ml BID IV FLUSH 12/13/17 21:00 12/25/17 09:00 (Tylenol) 650 mg Q6H PRN PO 12/13/17 13:30 12/14/17 09:42 (Protonix) 40 mg DAILY PO 12/14/17 09:00 12/25/17 08:21 (Zofran Inj) 4 mg Q6H PRN IV PUSH 12/13/17 13:30 Miscellaneous Information 1 Q361D XX 12/13/17 13:30 12/13/17 13:30 (Chlorhexidine 2% Cloth) Taper DAILY@04 TOP 12/14/17 04:00 12/10/18 03:59 12/25/17 04:00 (Chlorhexidine 2% Cloth) 3 pack UNSCH PRN TOP 12/13/17 13:30 (Zelda-Colace) 1 tab BID PO 12/13/17 21:00 12/25/17 08:20 (Milk Of Magnesia Liq) 30 ml Q12H PRN PO 12/13/17 13:30 (Senokot) 17.2 mg Q12H PRN PO 12/13/17 13:30 (Dulcolax Supp) 10 mg DAILY PRN RECTAL 12/13/17 13:30 (Lactulose Liq) 30 ml DAILY PRN PO 12/13/17 13:30 (Xanax) 1 mg BID PRN PO 12/13/17 13:30 (Pulmicort Respule Neb) 0.5 mg Q12HR NEB NEB 12/13/17 20:00 12/25/17 07:39 (Lyrica) 75 mg DAILY PO 12/14/17 09:00 12/25/17 08:20 (Zoloft) 100 mg DAILY PO 12/14/17 09:00 12/25/17 08:19 (Vitamin C) 500 mg BID PO 12/13/17 21:00 12/25/17 08:21 (Lactinex) 1 tab TID PO 12/13/17 18:00 12/25/17 08:21 (D50w (Vial) Inj) 50 ml UNSCH PRN IV PUSH 12/13/17 13:30 12/19/17 22:25 (Glucagon Inj) 1 mg UNSCH PRN OTHER 12/13/17 13:30 (NovoLIN R SUPPLEMENTAL SCALE) 1 ACHS SLIDING SCALE SQ 12/13/17 17:00 12/14/17 17:00 (Pill Splitter) 1 ea UNSCH PRN OTHER 12/13/17 13:30 (Xarelto) 10 mg DAILY PO 12/14/17 09:00 12/25/17 08:20 (Mycostatin Powder) 1 applic Q12HR TOPICAL 12/13/17 21:00 12/25/17 08:19 (Trandate Inj) 10 mg Q1HR PRN IV PUSH 12/13/17 17:00 (Nitroglycerin 2% Oint) 2 inch Q6HR PRN TOPICAL 12/13/17 18:00 (Apresoline Inj) 10 mg Q1HR PRN IV PUSH 12/13/17 17:00 (Brethine Inj) 1 mg UNSCH PRN SQ 12/15/17 10:15 (Bactroban Nasal 2% Oint) Taper BID EACH NARE 12/15/17 21:00 12/11/18 20:59 12/25/17 09:00 Ceftazidime/ Avibactam 0.94 gm/ Sodium Chloride 50 ml @ 25 mls/hr Q12HR IV 12/20/17 13:00 12/25/17 10:15 (Duoneb Neb) 1 ampule Q4HR NEB NEB 12/23/17 12:00 12/25/17 11:04 (Duoneb Neb) 1 ampule Q2HR NEB PRN NEB 12/23/17 09:45 (Cardizem) 60 mg Q6HR PO 12/24/17 12:00 12/25/17 00:14 (Lopressor) 100 mg Q12HR PO 12/24/17 21:00 12/25/17 08:19 Furosemide 100 mg/ Sodium Chloride 100 ml @ 10 mls/hr CONTINUOUS IV 12/24/17 17:00 12/25/17 05:48 (Deltasone) 20 mg BID PO 12/24/17 21:00 12/25/17 08:21 (Diuril Inj) 250 mg BID IV 12/25/17 11:00 (Vancomycin 25 Mg/ml Liq) 125 mg TID PO 12/25/17 13:00 UNV Lines RIJ TLC Past Medical History Chronic respiratory failure secondary to APOLONIA, OHS and bronchial asthma Atrial fibrillation rate controlled Hypertension Dyslipidemia Gastroesophageal reflux disease Elevated BMI greater than 50 Recurrent MRSA pneumonia Depression Constipation Past Surgical History JJ stent placement by urology Hiatal hernia surgery Appendectomy Percutaneous tracheostomy by Dr. Mullins since decannulated Allergies: Coded Allergies: penicillin G (Unverified Allergy, Severe, 05/29/17) Objective . Vital Signs Date Time Temp Pulse Resp B/P (MAP) Pulse Ox O2 Delivery O2 Flow Rate FiO2 12/25/17 11:05 98 Nasal Cannula 4.00 12/25/17 10:00 105 12/25/17 08:00 98.3 105 16 105/61 (76) 95 12/25/17 08:00 105 12/25/17 07:40 98 40 12/25/17 06:00 105 12/25/17 04:00 105 12/25/17 04:00 98.3 105 11 94/57 (69) 95 12/25/17 03:29 97 40 12/25/17 02:00 94 12/25/17 00:00 98.0 87 14 110/56 (74) 93 12/25/17 00:00 87 12/24/17 23:31 95 40 12/24/17 22:36 93 40 12/24/17 22:00 100 12/24/17 20:00 98.2 115 16 115/71 (86) 96 12/24/17 20:00 115 12/24/17 19:47 95 Nasal Cannula 5.00 12/24/17 18:00 111 12/24/17 16:00 116 18 121/79 (93) 98 12/24/17 16:00 111 12/24/17 14:00 111 12/24/17 12:00 114 18 109/71 (84) 98 12/24/17 12:00 111 . Laboratory Tests Test 12/24/17 09:05 12/25/17 04:13 White Blood Count 7.3 TH/MM3 9.4 TH/MM3 Red Blood Count 3.37 MIL/MM3 3.16 MIL/MM3 Hemoglobin 9.7 GM/DL 9.4 GM/DL Hematocrit 30.8 % 29.2 % Mean Corpuscular Volume 91.6 FL 92.2 FL Mean Corpuscular Hemoglobin 28.9 PG 29.6 PG Mean Corpuscular Hemoglobin Concent 31.6 % 32.1 % Red Cell Distribution Width 18.8 % 18.6 % Platelet Count 317 TH/MM3 239 TH/MM3 Mean Platelet Volume 7.8 FL 7.9 FL Neutrophils (%) (Auto) 79.1 % Lymphocytes (%) (Auto) 10.5 % Monocytes (%) (Auto) 10.1 % Eosinophils (%) (Auto) 0.1 % Basophils (%) (Auto) 0.2 % Neutrophils # (Auto) 5.8 TH/MM3 Lymphocytes # (Auto) 0.8 TH/MM3 Monocytes # (Auto) 0.7 TH/MM3 Eosinophils # (Auto) 0.0 TH/MM3 Basophils # (Auto) 0.0 TH/MM3 CBC Comment AUTO DIFF AUTO DIFF Differential Total Cells Counted 100 100 Neutrophils % (Manual) 55 % 81 % Band Neutrophils % 3 % 2 % Lymphocytes % 17 % 11 % Monocytes % 13 % 5 % Neutrophils # (Manual) 5.1 TH/MM3 7.9 TH/MM3 Metamyelocytes 1 % 1 % Myelocytes 11 % Nucleated Red Blood Cells 13 /100 WBC 10 /100 WBC Differential Comment FINAL DIFF MANUAL FINAL DIFF MANUAL Platelet Estimate NORMAL NORMAL Platelet Morphology Comment NORMAL NORMAL Polychromasia 2.0 % Basophilic Stippling FAINT Laboratory Tests Test 12/24/17 09:05 12/25/17 04:13 Blood Urea Nitrogen 28 MG/DL 30 MG/DL Creatinine 2.35 MG/DL 2.35 MG/DL Random Glucose 111 MG/DL 103 MG/DL Calcium Level 8.5 MG/DL 8.3 MG/DL Sodium Level 147 MEQ/L 148 MEQ/L Potassium Level 3.9 MEQ/L 4.2 MEQ/L Chloride Level 112 MEQ/L 112 MEQ/L Carbon Dioxide Level 22.0 MEQ/L 22.9 MEQ/L Anion Gap 13 MEQ/L 13 MEQ/L Estimat Glomerular Filtration Rate 21 ML/MIN 21 ML/MIN Phosphorus Level 5.1 MG/DL Iron Level 68 MCG/DL Total Iron Binding Capacity 190 MCG/DL Percent Iron Saturation 35.7 % Imaging Last Impressions Chest X-Ray 12/21/17 0600 Signed Impressions: Service Date/Time: Thursday, December 21, 2017 04:24 - CONCLUSION: Mild bibasilar consolidation and small left pleural effusion without significant change. Perry Neri MD Abdomen/Pelvis CT 12/20/17 0000 Signed Impressions: Service Date/Time: December 21:20 - CONCLUSION: Stable appearance to the CT abdomen/pelvis were compared to 11/26/17. Right double-J stent in place, multiple gallstones, left renal mass, left lateral ventral hernia. Dorian Vasquez MD Upper Extremity Ultrasound 12/13/17 0000 Signed Impressions: Service Date/Time: December 13:43 - CONCLUSION: 1. No deep venous thrombosis in the left upper extremity. 2. Superficial thrombosis of the right cephalic vein. El Nuñez MD Lower Extremity Ultrasound 12/13/17 0000 Signed Impressions: Service Date/Time: December 14:26 - CONCLUSION: Normal examination. Domingo Calderon MD Head CT 12/13/17 0000 Signed Impressions: Service Date/Time: December 13:30 - CONCLUSION: Normal examination. Domingo Calderon MD Physical Exam GENERAL: awake and alert, on nasal O2, NAD SKIN: Cool and dry. No generalized rash, no ecchymoses and no evidence of embolic lesions. HEAD: Atraumatic. Normocephalic. No temporal wasting, or tenderness. EYES: Ceres conjunctiva. No petechia or hemorrhage. Pupils equal, round and reactive to light. EOM full and intact. No scleral icterus. EARS, NOSE AND THROAT: Nose without bleeding or purulent nasal discharge. No sinus tenderness. Mucous membranes pink and moist. NECK: Trachea midline. Supple and not tender, no meningeal signs CARDIOVASCULAR: Regular rate and rhythm. No murmurs, rubs or gallops heard RESPIRATORY: Decreased breath sounds bilaterally ABDOMEN: Soft, obese, non-tender, nondistended. Bowel sounds present and normoactive. No guarding. No rebound. EXTREMITIES: No clubbing, cyanosis. Has bilateral pedal edema. No calf tenderness. . NEUROLOGICAL: Non-focal PSYCH: Cooperative LINE: No evidence of infection Assessment & Plan Remarks IMPRESSION UTI, with Klebsiella Kleb MDR CRE ESBL+ Previous episode of complicated UTI,, has stent in place, had obstruction - CT A/P looks ok, stent in place, no hydro Known APOLONIA Respiratory failure, chronically on BIPAP mask - stable Obesity Renal insufficiency, chronic Allergy to PCN, tolerates Cephalosporins Hx C diff colitis - recent episode during last admission RECOMMENDATION Continue Avycaz to cover CRE GNR - plan 10 days - anticipate end date 12/30 Continue po Vanco, decrease dose to TID Repeat UA to look at pyuria, if still a lot, will replace garcia Monitor progress Seems better from pulmonary standpoint D/W Marely Aranda MD Dec 25, 2017 11:15
[2017-12-25] MEDS: CHLOROTHIAZIDE SOD 500 MG VIAL IV SCH ×2 (14:36→22:18)
[2017-12-25 17:19] LABS: BACTERIA, URINE FEW /hpf; BILIRUBIN, URINE NEG (NEG); BLOOD, URINE LARGE (NEG); CALCIUM OXALATE CRYSTALS,URINE FEW /hpf; GLUCOSE,URINE NEG (NEG); KETONE, URINE NEG (NEG); NITRITE,URINE NEG (NEG); PH, URINE 5.5 (5.0-8.5); TRANSITIONAL EPI CELLS, URINE 2 /hpf; URINE COLOR YELLOW (YELLW/STRAW); URINE LEUKOCYTE ESTERASE LARGE (NEG); WHITE BLOOD CELL CLUMPS OCC
--- NOTE | 2017-12-25 18:24 | HHI.PR ---
Subjective Remarks Awake and sitting up in bed and . Feels better. On BiPAP at HS.. No fever. O2 at 3l, daytime. Objective Vital Signs Date Time Temp Pulse Resp B/P (MAP) Pulse Ox O2 Delivery O2 Flow Rate FiO2 12/25/17 18:00 105 12/25/17 16:00 98.0 121 24 99/64 (76) 98 12/25/17 16:00 105 12/25/17 15:00 124 18 96 12/25/17 14:40 120 17 103/71 (82) 93 12/25/17 14:20 121 17 102/59 (73) 96 12/25/17 14:08 124 18 85/54 (64) 95 12/25/17 14:06 126 21 67/42 (50) 95 12/25/17 14:04 127 21 81/42 (55) 94 12/25/17 14:01 128 30 69/39 (49) 93 12/25/17 14:01 128 30 69/39 (49) 93 12/25/17 14:00 130 24 91 12/25/17 14:00 105 12/25/17 14:00 130 24 91 12/25/17 13:30 118 16 95 12/25/17 13:00 123 18 94/50 (65) 94 12/25/17 13:00 123 18 94/50 (65) 94 12/25/17 12:30 122 17 95 12/25/17 12:02 120 18 96/50 (65) 94 12/25/17 12:02 120 18 96/50 (65) 94 12/25/17 12:01 122 17 81/50 (60) 95 12/25/17 12:01 122 17 81/50 (60) 95 12/25/17 12:00 119 18 95 12/25/17 12:00 98.0 108 16 100/57 (71) 95 12/25/17 12:00 119 18 95 12/25/17 12:00 105 12/25/17 11:30 117 21 95 12/25/17 11:05 98 Nasal Cannula 4.00 12/25/17 11:01 117 18 106/51 (69) 93 12/25/17 11:01 117 18 106/51 (69) 93 12/25/17 11:00 112 17 93 12/25/17 11:00 112 17 93 12/25/17 10:30 112 17 94 12/25/17 10:00 110 17 96/51 (66) 96 12/25/17 10:00 110 17 96/51 (66) 96 12/25/17 10:00 105 12/25/17 09:30 115 16 96 12/25/17 09:07 111 17 93/65 (74) 95 12/25/17 09:07 111 17 93/65 (74) 95 12/25/17 09:01 112 16 61/29 (40) 95 12/25/17 09:01 112 16 61/29 (40) 95 12/25/17 09:00 115 18 94 12/25/17 09:00 115 18 94 12/25/17 08:30 109 22 100 12/25/17 08:00 104 20 105/61 (76) 97 12/25/17 08:00 98.3 105 16 105/61 (76) 95 12/25/17 08:00 105 12/25/17 08:00 104 20 105/61 (76) 97 12/25/17 07:40 98 40 12/25/17 06:00 105 12/25/17 04:00 105 12/25/17 04:00 98.3 105 11 94/57 (69) 95 12/25/17 03:29 97 40 12/25/17 02:00 94 12/25/17 00:00 98.0 87 14 110/56 (74) 93 12/25/17 00:00 87 12/24/17 23:31 95 40 12/24/17 22:36 93 40 12/24/17 22:00 100 12/24/17 20:00 98.2 115 16 115/71 (86) 96 12/24/17 20:00 115 12/24/17 19:47 95 Nasal Cannula 5.00 I/O 12/24/17 12/24/17 12/24/17 12/25/17 12/25/17 12/25/17 07:00 15:00 23:00 07:00 15:00 23:00 Intake Total 240 ml 120 ml 50 ml 879 ml Output Total 150 ml 125 ml 651 ml 750 ml Balance -150 ml 115 ml -531 ml 50 ml 129 ml Intake Oral 240 ml 120 ml 480 ml IV Total 50 ml 399 ml Output Urine Total 150 ml 125 ml 650 ml 750 ml Stool Total 1 ml # Bowel Movements 3 1 Result Diagram: 12/25/17 0413 12/25/17 0413 Objective Remarks GENERAL: This is a Obese elderly W/F patient, in no apparent distress. CARDIOVASCULAR: Regular rate and rhythm without murmurs, gallops, or rubs. RESPIRATORY: Diffuse expiratory wheezes, diminished breath sounds bilaterally. Occ Crackles at bases . GASTROINTESTINAL: Abdomen soft, non-tender,nondistended. Normal active bowel sounds MUSCULOSKELETAL: Extremities without clubbing, cyanosis,but has 2 + edema. NEURO: Alert & Oriented to person, place. Moves all Extremities. Assessment and Plan Assessment and Plan (1) Acute hypercapnic respiratory failure Diagnosis: Principal (2) Hypoglycemia Diagnosis: Principal (3) BMI 50.0-59.9, adult Diagnosis: Principal (4) Afib Diagnosis: Secondary (5) Dyslipidemia Diagnosis: Secondary (6) Peripheral neuropathy Diagnosis: Secondary (7) Diabetes mellitus Diagnosis: Principal (8) Essential hypertension Diagnosis: Principal (9) Hiatal hernia Diagnosis: Secondary (10) Gastroesophageal reflux disease Diagnosis: Secondary (11) Chronic kidney disease (CKD) stage G3a/A3, moderately decreased glomerular filtration rate (GFR) between 45-59 mL/min/1.73 square meter and albuminuria creatinine ratio greater than 300 mg/g Diagnosis: Secondary Plan : 1. Cont BIPAP 15/6, FIO2 30 % at HS 2. Continue antibiotics. and switch to PO 3 CXR ,BMP in am 4. Duonebs qid. 5. O2 3L daytime 6. PT and OT. 7. Cont Diuretic Drip daily 8. Will Arrange home BiPAP . 9.Prednisone 20 mg bid 10. PFT in am Francoise Poon MD Dec 25, 2017 18:24
[2017-12-26] VITALS (35 sets, daily range): BP systolic 92–122; BP diastolic 53–75; PULSE 67–100; RESP 13–25; TEMP 96.3–98.6; O2SAT 96–100
[2017-12-26] MEDS: FUROSEMIDE INJ 100 MG in SODIUM CHLORIDE 0.9% INJ 90 ML IV SCH ×2 (00:22→09:52)
[2017-12-26] MEDS: DILTIAZEM HCL 60 MG TAB PO SCH ×4 (00:24→17:01)
[2017-12-26] MEDS: RESP: ALBUTEROL 2.5 MG/IPRATROPIUM 0.5 MG NEB (SCH) NEB ×6 (03:54→23:30)
[2017-12-26] MEDS: CHLORHEXIDINE GLUCONATE 2 % 1 PACK (2 CLOTHS) TOP SCH (04:00)
--- NOTE | 2017-12-26 05:24 | RADRPT ---
EXAM DATE/TIME: 12/26/2017 03:28 [facility] COMPARISON: CHEST SINGLE AP, December 23, 2017, 3:43. INDICATIONS : Shortness of breath. MEDICAL HISTORY : Hypertension. Diabetes mellitus type II, Cerebrovascular disease. Hernia, hiatal. SURGICAL HISTORY : Appendectomy. ENCOUNTER: Subsequent ACUITY: 1 month PAIN SCORE: Non-responsive. LOCATION: Bilateral chest FINDINGS: A single portable frontal view the chest shows complete opacification of left hemithorax which is a n ew finding. Shift of the mediastinal structures towards the patient's left is exaggerated by the obli quity. Right lung is hyperinflated and grossly clear. Heart is mildly enlarged but unchanged. Right-s ided central line noted. CONCLUSION: Interval complete opacification of the left hemithorax with volume loss and shift of the mediastinal structures towards that side. This raises concern for mucous plugging of the left mainstem bronchus. Dorian Wilson Jr., MD on December 26, 2017 at 5:21 Board Certified Radiologist. This report was verified electronically.
[2017-12-26 06:04] LABS: BASOPHIL % 0.2 % (0.0-2.0); EOSINOPHIL % 0.1 % (0.0-4.0); HEMOGLOBIN 8.9 GM/DL (11.6-15.3); LYMPH % 6.3 % (9.0-44.0); LYMPHOCYTE # 0.5 TH/MM3 (1.0-4.8); MEAN CELL VOLUME 91.6 FL (80.0-100.0); MEAN CORPUSCULAR HEMOGLOBIN 29.1 PG (27.0-34.0); MEAN CORPUSCULAR HGB CONC 31.8 % (32.0-36.0); MEAN PLATELET VOLUME 8.2 FL (7.0-11.0); MONO % 5.2 % (0.0-8.0); MONOCYTE # 0.4 TH/MM3 (0-0.9); NEUT % 88.2 % (16.0-70.0); PLATELET COUNT 199 TH/MM3 (150-450); RED BLOOD COUNT 3.06 MIL/MM3 (4.00-5.30); RED CELL DISTRIBUTION WIDTH 18.3 % (11.6-17.2); WHITE BLOOD COUNT 7.9 TH/MM3 (4.0-11.0)
[2017-12-26 06:24] LABS: BICARBONATE 23.1 MEQ/L (21.0-32.0); CREATININE 2.49 MG/DL (0.50-1.00)
[2017-12-26] MEDS ORDERED: ETOMIDATE 20 MG/10 ML VIAL IV PUSH ONE (07:30)
[2017-12-26] MEDS ORDERED: ROCURONIUM INJ 50 MG/5 ML VIAL IV ONE (07:30)
[2017-12-26] MEDS ORDERED: MIDAZOLAM HCL 5 MG/ML VIAL (1 ML) IV PUSH ONE (07:30)
--- NOTE | 2017-12-26 07:32 | HHI.CCPN ---
Subjective Remarks/Hospital Course This is a 67-year-old female. Date of admission 12/13/2017. Past medical history includes elevated BMI, chronic asthma on chronic oxygen, atrial fibrillation/rate controlled, hypertension dyslipidemia. Today, patient presents to [facility] emergency department after being found unresponsive at the senior care. She was just discharged from the hospital 12/10/2017 from [facility]. She is morbidly obese with multiple severe chronic illnesses and was both in respiratory distress and decreased responsiveness at the same time. She was noted to be hypoxic with saturations in the e 80s with nasal cannula. Was brought in on BiPAP. Accu-Chek was in the 30s when paramedics found her. Initial GCS was reported as 3. She received some D10 through a right arm PICC line but upon arrival staff felt that the PICC line was not working properly. Patient cannot provide any history or review of systems. She arrives critically ill Patient received D50 and a central line in the right internal jugular was placed by ED physician as no significant access was available. Chest x-ray revealed no acute cardiopulmonary findings. After being placed on BiPAP and receiving glucose patient's mentation is much improved and likely can be removed in the ICU. Less confused when evaluated in the ED. UA is positive. Previous history of Pseudomonas sensitive to aztreonam 3: Currently resting in bed in no acute distress on 3 L nasal cannula. Overnight on BiPAP/Venturi mask currently on 3 L nasal cannula. Difficult to arouse but once arousable does follow commands in all 4 extremities but weakly. Blood sugar 135. ABG currently pending Subjective 12/15: Afebrile. Resting in bed on nasal cannula. Arousable and following commands. Ill-definition due to hypo-tension. I will place arterial line secondary to body habitus. She does not appear septic. She is more awake and alert and attentive today as compared to yesterday. 3: Alert and oriented 3, responding to questions appropriately. Arterial line inability to play secondary to body habitus. Patient remained on phenylephrine during the night but now map remains less than 60 will resume phenylephrine infusion, and initiate Midodrine. 12/17: Hemodynamically stable. Phenylephrine infusion off since last night. MAP 80's. Patient alert and oriented, tolerating diet/breakfast. 12/18: Late entry note. Hemodynamically stable. Decrease FiO2 requirements currently on 2 L nasal cannula O2 saturation 97-98 %. RECONSULT 12/19: Patient became hemodynamically unstable this afternoon requiring reinitiation of phenylephrine infusion currently at 70 mcgs/minute. 12/20: Patient became somnolent last evening noted respiratory acidosis around 2 AM. Patient placed back on BiPAP. ID has been consulted for MDR Klebsiella. Patient awake and alert this afternoon, and denies pain. 12/21: Respiratory status much improved, and to remain on BiPAP at night while sleeping. ABGs improved. Patient hemodynamically stable no vasopressor requirements at this time. IV fluids discontinued. Patient tolerating a diet. 12/22: Patient remains a respiratory acidosis, slightly more lethargic today. Patient placed on BiPAP with exception of meals today. Repeat ABG pending this afternoon 12/23: ABG's and neuro status unchanged. Patient remains on BiPAP with exception of meals. Repeat ABG pending this afternoon. Ammonia level ordered. 12/24 Patient is on BIPAP 15/5 with 40% . In Afib with RVR 12/25 No events overnight. Remains on BIPAP. Started on Lasix drip per renal 20mg /hr 12/26: Patient remains on BiPAP lethargic. Air entry is diminished on the left side. Chest x-ray shows complete whiteout on the left side with mediastinal shift to the left indicating mucus plugging and left lung collapse. Will proceed with emergency intubation and bronchoscopy (I discussed with Dr. Baca -he will do bronchoscopy at 11:30 AM today) Objective Vital Signs Date Time Temp Pulse Resp B/P (MAP) Pulse Ox O2 Delivery O2 Flow Rate FiO2 12/26/17 06:00 81 12/26/17 04:00 98.3 18 103/75 (84) 99 12/26/17 03:52 40 12/25/17 20:15 Nasal Cannula 3.00 Intake and Output 12/26/17 12/26/17 12/27/17 08:00 16:00 00:00 Intake Total 100 ml Output Total 900 ml Balance -800 ml Result Diagram: 12/26/17 0533 12/26/17 0533 Imaging Last Impressions Chest X-Ray 12/23/17 0600 Signed Impressions: Service Date/Time: Saturday, December 23, 2017 03:43 - CONCLUSION: No significant change. Perry Neri MD Abdomen/Pelvis CT 12/20/17 0000 Signed Impressions: Service Date/Time: December 21:20 - CONCLUSION: Stable appearance to the CT abdomen/pelvis were compared to 11/26/17. Right double-J stent in place, multiple gallstones, left renal mass, left lateral ventral hernia. Dorian Vasquez MD Upper Extremity Ultrasound 12/13/17 0000 Signed Impressions: Service Date/Time: December 13:43 - CONCLUSION: 1. No deep venous thrombosis in the left upper extremity. 2. Superficial thrombosis of the right cephalic vein. El Nuñez MD Lower Extremity Ultrasound 12/13/17 0000 Signed Impressions: Service Date/Time: December 14:26 - CONCLUSION: Normal examination. Domingo Calderon MD Head CT 12/13/17 0000 Signed Impressions: Service Date/Time: December 13:30 - CONCLUSION: Normal examination. Domingo Calderon MD Objective Remarks GENERAL: 67-year-old super morbidly obese female resting in bed on BiPAP, lethargic but arousable and follows commands SKIN: Warm and dry. HEAD: Atraumatic. Normocephalic. EYES: Pupils equal and round about 3 mm bilaterally and reactive. No scleral icterus. No injection or drainage. ENT: No nasal bleeding or discharge. BiPAP mask limits exam NECK: Trachea midline. No JVD. CARDIOVASCULAR: IRR. Distant heart tones. S1, S2. No S4. Without murmur RESPIRATORY: Diminished breath sounds throughout due to body habitus, but particularly absent in the left lung west. Bilateral coarse rhonchi. GASTROINTESTINAL: Abdomen soft, obese, nontender. Hypoactive bowel sounds are appreciated MUSCULOSKELETAL: Extremities with 2+ bilateral upper and lower extremity edema NEUROLOGICAL: Lethargic but wakes up easily and communicates. No obvious cranial nerve deficits. Motor grossly within normal limits. Urinary Catheter: Yes Assessment to: Continue Vascular Central Line Catheter: Yes Assessment to: Continue Date of Insertion: Dec 13, 2017 Line: Central Venous Catheter Side: Right Location: Internal, Jugular A/P Assessment and Plan Neuro/Psych: Acute toxic metabolic encephalopathy likely secondary to hypoglycemia/CO2 retention Chronic benzodiazepine use Depression disorder NOS Diabetic neuropathy Chronic pain syndrome with chronic narcotic use Proceed with endotracheal intubation use propofol, fentanyl for sedation after intubation Holding hydrocodone/acetaminophen 5/321 tablet every 6 hours as needed pain Continue sertraline 100 mg p.o. daily for depression Continue pregabalin 75 mg p.o. daily for peripheral neuropathy CT brain 12/13 revealed no acute intracranial findings CV: Atrial fibrillation with RVR Hypertension Fluid overload On Lopressor 50mg Q12, Cardizem 60mg Q6, Monitor HR and BP keep MAP>65mmHg 2D echocardiogram 12/02 - EF 50-55%. The left atrial size is mildly dilated. The right atrial size is moderately dilated. Trace TR Resp: Acute hypoxic, hypercapnic respiratory failure Complete left lung collapse/mucus plugging APOLONIA/OHS History recurrent MRSA pneumonia Proceed with endotracheal intubation due to complete L lung collapse Dr. Baca will perform bronchoscopy later today [facility] AC 16/600/10 FiO2 50% Currently in albuterol/ipratropium aerosols every 6 hours with albuterol aerosols every 2 hours dyspnea Continue budesonide 0.5 mg/2 mL nebulizers every 12 hours On Prednisone 20mg BID, continue Pulmonary is following GI: BMI greater than 50 Gastroesophageal reflux disease NPO for intubation and bronchoscopy Pantoprazole for GI prophylaxis. Patient is on famotidine 20 mg p.o. daily at home Docusate sodium/senna 1 tablet twice daily for bowel regimen. Patient is on senna 8.6 mg twice daily at home Continue ondansetron 4 mg every 6 hours as needed nausea : CKD Monitor renal function, I/O's, avoid nephrotoxins Cr: 2.49 today with UOP: 1.6 L in 24 hrs Renal is following started on Lasix drip 10mg/hr now Solitario catheter to maintain patency with recent pyelonephritis/GJ placement. Outpatient J stent removal by urology placed during last hospitalization 12/02 12/20 CT abd/pelvis: No hydronephrosis Endo: Diabetes mellitus Acute hypoglycemia-resolved Sliding scale insulin with Novolin R with Accu-Cheks to maintain euglycemia before meals at bedtime. Heme: Normocytic anemia Chronic Rivaroxaban use Right cephalic vein superficial thrombus Monitor CBC Continue with rivaroxaban 10 mg daily ID: Urinary tract infection/MDR Klebsiella History of MRSA History of C. difficile Currently on PO vancomycin, Avycaz per ID Monitor for signs of infections ( Fever, WBC) Pertinent cultures Urine Legionella pneumococcal antigens negative Urine culture 12/13 Klebsiella ESBL Blood culture 12/20: OERSK[facility]IA SPP Access -Right IJ CVL placed the ED 12/13 Prophylaxis -GI -pantoprazole -DVT -SCD/rivaroxaban CCT 45 min excluding procedures Acute change in status , now with complete left lung collapse requiring emergent intubation. Need bronchoscopy soon Yoandy Amador MD Dec 26, 2017 07:32
[2017-12-26] MEDS: INSULIN NovoLIN REGULAR SUPPLEMENTAL SCALE SQ SCH ×4 (08:00→21:00)
[2017-12-26 08:13] LABS: BANDS 6 % (0-6); CORRECTED NUCLEATED RBC 5 /100 WBC (0-0); LYMPHOCYTES 7 % (9-44); METAMYELOCYTES 3 % (0-1); MONOCYTES 3 % (0-8); MYELOCYTES 7 % (0-0); NEUTROPHIL # MANUAL DIFF 7.1 TH/MM3 (1.8-7.7); NUCLEATED RED BLOOD CELL 5 (0-0); POLYS (SEG NEUTROPHILS) 74 % (16-70)
[2017-12-26] MEDS ORDERED: PROPOFOL 500 MG/50 ML INJ 50 ML ONE (08:17)
--- NOTE | 2017-12-26 08:32 | PD.PROCEDR ---
Procedure Note Procedure Indication: Complete left lung collapse, with midline shift INTUBATION: The patient was put in optimal position for the procedure. Rapid sequence intubation was initiated by me using 20 milligrams of etomidate IV and 5 milligrams of Versed IV. NM blockade with 50 mg IV Rocuronium. DL with Mac 4 blade, Grade 1 view. The patient was intubated with a 8.0 cuffed endotracheal tube. Tube placement was confirmed by visualization of the tube and balloon passing through the cords, capnometry and subsequent chest x-ray. Breath sounds were heard bilaterally postintubation. No breath sounds over stomach. Patient tolerated procedure well. Yoandy Amador MD Dec 26, 2017 08:32
[2017-12-26] MEDS: RESP: BUDESONIDE 0.5 MG/2 ML NEB NEB SCH ×2 (08:33→21:09)
[2017-12-26] MEDS: VANCOMYCIN 25 MG/ML SOLN 100 ML BOTTLE PO SCH ×3 (09:00→17:02)
[2017-12-26] MEDS: DOCUSATE SODIUM 50 MG/SENNA 8.6 MG TAB PO SCH ×2 (09:00→21:35)
--- NOTE | 2017-12-26 09:38 | HHI.IDPN ---
Subjective Subjective Remarks Patient is a 67-year-old female, [facility], brought into the hospital after she was found unresponsive. She had a recent hospitalization where she was diagnosed to have sepsis related to complicated UTI. During that hospitalization she underwent stent placement. She also had C. difficile colitis during that admission. Patient states that she uses a BiPAP machine in the [facility] usually when she is sleeping. She is nonambulatory. Denies any significant cough or congestion. No chest pain. There was no mention of any fever or chills or sweats. When she also came to the hospital this time she was on pressors for hypotension. She improved clinically and her hemodynamics stabilize. However yesterday she went hypotensive again, an infectious disease consultation has been requested to evaluate the patient. Notes reviewed D/W RN Temps ok Intubated this morning CXR with white out L with mediastinal shift to the left BP ok, not on pressors Sedated Plan for bronch today UO has increased Creatinine still risinfg Antibiotics Avycaz PO Vanco Current Medications Medications (Trade) Dose Ordered Sig/Mirta Route Start Time Stop Time Status Last Admin (NS Flush) 2 ml UNSCH PRN IV FLUSH 12/13/17 13:30 (NS Flush) 2 ml BID IV FLUSH 12/13/17 21:00 12/25/17 20:42 (Tylenol) 650 mg Q6H PRN PO 12/13/17 13:30 12/14/17 09:42 (Protonix) 40 mg DAILY PO 12/14/17 09:00 12/25/17 08:21 (Zofran Inj) 4 mg Q6H PRN IV PUSH 12/13/17 13:30 Miscellaneous Information 1 Q361D XX 12/13/17 13:30 12/13/17 13:30 (Chlorhexidine 2% Cloth) Taper DAILY@04 TOP 12/14/17 04:00 12/10/18 03:59 12/26/17 04:00 (Chlorhexidine 2% Cloth) 3 pack UNSCH PRN TOP 12/13/17 13:30 (Zelda-Colace) 1 tab BID PO 12/13/17 21:00 12/25/17 20:42 (Milk Of Magnesia Liq) 30 ml Q12H PRN PO 12/13/17 13:30 (Senokot) 17.2 mg Q12H PRN PO 12/13/17 13:30 (Dulcolax Supp) 10 mg DAILY PRN RECTAL 12/13/17 13:30 (Lactulose Liq) 30 ml DAILY PRN PO 12/13/17 13:30 (Xanax) 1 mg BID PRN PO 12/13/17 13:30 (Pulmicort Respule Neb) 0.5 mg Q12HR NEB NEB 12/13/17 20:00 12/26/17 08:33 (Lyrica) 75 mg DAILY PO 12/14/17 09:00 12/25/17 08:20 (Zoloft) 100 mg DAILY PO 12/14/17 09:00 12/25/17 08:19 (Vitamin C) 500 mg BID PO 12/13/17 21:00 12/25/17 20:42 (Lactinex) 1 tab TID PO 12/13/17 18:00 12/25/17 18:23 (D50w (Vial) Inj) 50 ml UNSCH PRN IV PUSH 12/13/17 13:30 12/19/17 22:25 (Glucagon Inj) 1 mg UNSCH PRN OTHER 12/13/17 13:30 (NovoLIN R SUPPLEMENTAL SCALE) 1 ACHS SLIDING SCALE SQ 12/13/17 17:00 12/14/17 17:00 (Pill Splitter) 1 ea UNSCH PRN OTHER 12/13/17 13:30 (Xarelto) 10 mg DAILY PO 12/14/17 09:00 12/25/17 08:20 (Mycostatin Powder) 1 applic Q12HR TOPICAL 12/13/17 21:00 12/25/17 22:20 (Trandate Inj) 10 mg Q1HR PRN IV PUSH 12/13/17 17:00 (Nitroglycerin 2% Oint) 2 inch Q6HR PRN TOPICAL 12/13/17 18:00 (Apresoline Inj) 10 mg Q1HR PRN IV PUSH 12/13/17 17:00 (Brethine Inj) 1 mg UNSCH PRN SQ 12/15/17 10:15 (Bactroban Nasal 2% Oint) Taper BID EACH NARE 12/15/17 21:00 12/11/18 20:59 12/25/17 20:42 Ceftazidime/ Avibactam 0.94 gm/ Sodium Chloride 50 ml @ 25 mls/hr Q12HR IV 12/20/17 13:00 12/25/17 20:42 (Duoneb Neb) 1 ampule Q4HR NEB NEB 12/23/17 12:00 12/26/17 08:33 (Duoneb Neb) 1 ampule Q2HR NEB PRN NEB 12/23/17 09:45 (Cardizem) 60 mg Q6HR PO 12/24/17 12:00 12/26/17 06:21 (Lopressor) 100 mg Q12HR PO 12/24/17 21:00 12/25/17 20:43 Furosemide 100 mg/ Sodium Chloride 100 ml @ 10 mls/hr CONTINUOUS IV 12/24/17 17:00 12/26/17 00:22 (Deltasone) 20 mg BID PO 12/24/17 21:00 12/25/17 20:46 (Diuril Inj) 250 mg BID IV 12/25/17 11:00 12/25/17 22:18 (Vancomycin 25 Mg/ml Liq) 125 mg TID PO 12/25/17 13:00 12/25/17 18:00 (Peridex 0.12% Liq) 15 ml BID@08,20 MT 12/26/17 20:00 Propofol 100 ml @ 4.176 mls/ hr TITRATE PRN IV 12/26/17 09:00 Lines RIJ TLC Past Medical History Chronic respiratory failure secondary to APOLONIA, OHS and bronchial asthma Atrial fibrillation rate controlled Hypertension Dyslipidemia Gastroesophageal reflux disease Elevated BMI greater than 50 Recurrent MRSA pneumonia Depression Constipation Past Surgical History JJ stent placement by urology Hiatal hernia surgery Appendectomy Percutaneous tracheostomy by Dr. Mullins since decannulated Allergies: Coded Allergies: penicillin G (Unverified Allergy, Severe, 05/29/17) Objective . Vital Signs Date Time Temp Pulse Resp B/P (MAP) Pulse Ox O2 Delivery O2 Flow Rate FiO2 12/26/17 08:28 100 50 12/26/17 06:00 81 12/26/17 04:00 98.3 93 18 103/75 (84) 99 12/26/17 04:00 93 12/26/17 03:52 99 40 12/26/17 02:00 100 12/26/17 00:00 95 12/26/17 00:00 98.6 95 17 110/61 (77) 100 12/25/17 23:17 99 40 12/25/17 22:00 109 12/25/17 20:15 98 Nasal Cannula 3.00 12/25/17 20:00 98.5 113 11 90/57 (68) 96 12/25/17 20:00 113 12/25/17 18:00 105 12/25/17 16:00 98.0 121 24 99/64 (76) 98 12/25/17 16:00 105 12/25/17 15:00 124 18 96 12/25/17 14:40 120 17 103/71 (82) 93 12/25/17 14:20 121 17 102/59 (73) 96 12/25/17 14:08 124 18 85/54 (64) 95 12/25/17 14:06 126 21 67/42 (50) 95 12/25/17 14:04 127 21 81/42 (55) 94 12/25/17 14:01 128 30 69/39 (49) 93 12/25/17 14:01 128 30 69/39 (49) 93 12/25/17 14:00 130 24 91 12/25/17 14:00 105 12/25/17 14:00 130 24 91 12/25/17 13:30 118 16 95 12/25/17 13:00 123 18 94/50 (65) 94 12/25/17 13:00 123 18 94/50 (65) 94 12/25/17 12:30 122 17 95 12/25/17 12:02 120 18 96/50 (65) 94 12/25/17 12:02 120 18 96/50 (65) 94 12/25/17 12:01 122 17 81/50 (60) 95 12/25/17 12:01 122 17 81/50 (60) 95 12/25/17 12:00 119 18 95 12/25/17 12:00 98.0 108 16 100/57 (71) 95 12/25/17 12:00 119 18 95 12/25/17 12:00 105 12/25/17 11:30 117 21 95 12/25/17 11:05 98 Nasal Cannula 4.00 12/25/17 11:01 117 18 106/51 (69) 93 12/25/17 11:01 117 18 106/51 (69) 93 12/25/17 11:00 112 17 93 12/25/17 11:00 112 17 93 12/25/17 10:30 112 17 94 12/25/17 10:00 110 17 96/51 (66) 96 12/25/17 10:00 110 17 96/51 (66) 96 12/25/17 10:00 105 . Laboratory Tests Test 12/25/17 04:13 12/26/17 05:33 White Blood Count 9.4 TH/MM3 7.9 TH/MM3 Red Blood Count 3.16 MIL/MM3 3.06 MIL/MM3 Hemoglobin 9.4 GM/DL 8.9 GM/DL Hematocrit 29.2 % 28.0 % Mean Corpuscular Volume 92.2 FL 91.6 FL Mean Corpuscular Hemoglobin 29.6 PG 29.1 PG Mean Corpuscular Hemoglobin Concent 32.1 % 31.8 % Red Cell Distribution Width 18.6 % 18.3 % Platelet Count 239 TH/MM3 199 TH/MM3 Mean Platelet Volume 7.9 FL 8.2 FL CBC Comment AUTO DIFF AUTO DIFF Differential Total Cells Counted 100 100 Neutrophils % (Manual) 81 % 74 % Band Neutrophils % 2 % 6 % Lymphocytes % 11 % 7 % Monocytes % 5 % 3 % Neutrophils # (Manual) 7.9 TH/MM3 7.1 TH/MM3 Metamyelocytes 1 % 3 % Nucleated Red Blood Cells 10 /100 WBC 5 /100 WBC Differential Comment FINAL DIFF MANUAL FINAL DIFF MANUAL Platelet Estimate NORMAL NORMAL Platelet Morphology Comment NORMAL NORMAL Basophilic Stippling FAINT FAINT Neutrophils (%) (Auto) 88.2 % Lymphocytes (%) (Auto) 6.3 % Monocytes (%) (Auto) 5.2 % Eosinophils (%) (Auto) 0.1 % Basophils (%) (Auto) 0.2 % Neutrophils # (Auto) 7.0 TH/MM3 Lymphocytes # (Auto) 0.5 TH/MM3 Monocytes # (Auto) 0.4 TH/MM3 Eosinophils # (Auto) 0.0 TH/MM3 Basophils # (Auto) 0.0 TH/MM3 Myelocytes 7 % Polychromasia 2.0 % Laboratory Tests Test 12/25/17 04:13 12/26/17 05:33 Blood Urea Nitrogen 30 MG/DL 34 MG/DL Creatinine 2.35 MG/DL 2.49 MG/DL Random Glucose 103 MG/DL 128 MG/DL Calcium Level 8.3 MG/DL 8.0 MG/DL Phosphorus Level 5.1 MG/DL Sodium Level 148 MEQ/L 147 MEQ/L Potassium Level 4.2 MEQ/L 4.0 MEQ/L Chloride Level 112 MEQ/L 111 MEQ/L Carbon Dioxide Level 22.9 MEQ/L 23.1 MEQ/L Anion Gap 13 MEQ/L 13 MEQ/L Estimat Glomerular Filtration Rate 21 ML/MIN 19 ML/MIN Iron Level 68 MCG/DL Total Iron Binding Capacity 190 MCG/DL Percent Iron Saturation 35.7 % Imaging Last Impressions Chest X-Ray 12/21/17 0600 Signed Impressions: Service Date/Time: Thursday, December 21, 2017 04:24 - CONCLUSION: Mild bibasilar consolidation and small left pleural effusion without significant change. Perry Neri MD Abdomen/Pelvis CT 12/20/17 0000 Signed Impressions: Service Date/Time: December 21:20 - CONCLUSION: Stable appearance to the CT abdomen/pelvis were compared to 11/26/17. Right double-J stent in place, multiple gallstones, left renal mass, left lateral ventral hernia. Dorian Vasquez MD Upper Extremity Ultrasound 12/13/17 0000 Signed Impressions: Service Date/Time: December 13:43 - CONCLUSION: 1. No deep venous thrombosis in the left upper extremity. 2. Superficial thrombosis of the right cephalic vein. El Nuñez MD Lower Extremity Ultrasound 12/13/17 0000 Signed Impressions: Service Date/Time: December 14:26 - CONCLUSION: Normal examination. Domingo Calderon MD Head CT 12/13/17 0000 Signed Impressions: Service Date/Time: December 13:30 - CONCLUSION: Normal examination. Domingo Calderon MD Physical Exam GENERAL: Sedated on the vent, NAD SKIN: Cool and dry. No generalized rash HEAD: Atraumatic. Normocephalic. No temporal wasting, or tenderness. EYES: [place] conjunctiva. No petechia or hemorrhage. Pupils equal, round and reactive to light. No scleral icterus. EARS, NOSE AND THROAT: Nose without bleeding or purulent nasal discharge. Orally intubated. NECK: Trachea midline. Supple and not tender, no meningeal signs CARDIOVASCULAR: Regular rate and rhythm. No murmurs, rubs or gallops heard RESPIRATORY: Decreased breath sounds L side, diffuse wheezing ABDOMEN: Soft, obese, no reaction to palpation, nondistended. Bowel sounds present and normoactive. EXTREMITIES: No clubbing, cyanosis. Has bilateral pedal edema. No calf tenderness. . NEUROLOGICAL: Sedated PSYCH: Unable to assess LINE: RIJ line looks ok Assessment & Plan Remarks IMPRESSION UTI, with Klebsiella Kleb MDR CRE ESBL+ Previous episode of complicated UTI,, has stent in place, had obstruction - CT A/P looks ok, stent in place, no hydro Known APOLONIA Respiratory failure, chronically on BIPAP mask - intubated today - CXR with white out L, due to plugging Obesity Renal insufficiency, chronic Allergy to PCN, tolerates Cephalosporins Hx C diff colitis - recent episode during last admission RECOMMENDATION Continue Avycaz to cover CRE GNR - plan 10 days - anticipate end date 12/30 Continue po Vanco, decrease dose to TID For bronch today Give one dose IV Vanco, check level in AM Diflucan Monitor progress D/W Marely Aranda MD Dec 26, 2017 09:38
[2017-12-26] MEDS ORDERED: VANCOMYCIN INJ 1,000 MG in SODIUM CHLOR 0.9% 250 ML INJ 250 ML IV ONE (09:45)
--- NOTE | 2017-12-26 09:45 | RADRPT ---
EXAM DATE/TIME: 12/26/2017 08:41 [facility] COMPARISON: CHEST SINGLE AP, December 26, 2017, 3:28. INDICATIONS : Post intubation. MEDICAL HISTORY : Hypertension. Diabetes mellitus type II, Cerebrovascular disease. SURGICAL HISTORY : Appendectomy. ENCOUNTER: Subsequent ACUITY: 1 day PAIN SCORE: Non-responsive. LOCATION: Bilateral chest FINDINGS: An endotracheal tube has its tip 2-3 cm above the makeda in good position. There is complete opacific ation left hemithorax and worsening diffuse severe infiltrates consistent with pulmonary vascular con gestion or pneumonia. Right sided central line is stable. CONCLUSION: Endotracheal tube tip 2-3 cm above the makeda in good position. Persistent opacification left hemitho rax. Worsening diffuse infiltrates consistent with probable severe pulmonary vascular congestion or p neumonia. Elvin Childs MD on December 26, 2017 at 9:42 Board Certified Radiologist. This report was verified electronically.
[2017-12-26] MEDS: PROPOFOL 1000 MG/100 ML INJ 100 ML IV PRN ×3 (09:52→21:33)
[2017-12-26] MEDS: PANTOPRAZOLE SOD 40 MG DELAYED RELEASE TAB PO SCH (09:53)
[2017-12-26] MEDS: SERTRALINE HCL 100 MG TAB PO SCH (09:53)
[2017-12-26] MEDS: MUPIROCIN 2% OINT 1 APPLIC/GM SYR EACH NARE SCH ×2 (09:53→21:00)
[2017-12-26] MEDS: PREGABALIN 75 MG CAP PO SCH (09:53)
[2017-12-26] MEDS: ASCORBIC ACID 500 MG TAB PO SCH ×2 (09:53→21:35)
[2017-12-26] MEDS: RIVAROXABAN 10 MG TAB PO SCH (09:53)
[2017-12-26] MEDS: LACTOBACILLUS ACIDOPHILUS TAB PO SCH ×3 (09:53→17:01)
[2017-12-26] MEDS: predniSONE 20 MG TAB PO SCH ×2 (09:53→21:35)
[2017-12-26] MEDS: CHLOROTHIAZIDE SOD 500 MG VIAL IV SCH ×2 (09:54→21:34)
[2017-12-26] MEDS: cefTAZidime/AVIBACTAM INJ 0.94 GM in SODIUM CHLORIDE 0.9% INJ 50 ML IV SCH ×2 (09:54→21:34)
[2017-12-26] MEDS: SODIUM CHLORIDE 0.9% FLUSH 10 ML FLUSH IV FLUSH SCH ×2 (09:54→21:35)
[2017-12-26] MEDS: NYSTATIN 100,000 U/GM PWD 15 GM BTL TOPICAL SCH ×2 (09:54→21:35)
[2017-12-26] MEDS: METOPROLOL TARTRATE 25 MG TAB PO SCH ×2 (09:54→21:35)
--- NOTE | 2017-12-26 10:09 | HHI.NPPN ---
Subjective Complaints: Shortness of Breath Renal Failure: Acute Interval History Around 8 am she was on BiPap, hypoxic. Chest xray showing white out of left lung with mediastinal shift. She was intubated, is on Propofol and unresponsive. Excellent urine output, fluid overload persists. Creatinine is slightly higher today. On 50% FiO2. (Suad Lucas) Review of Systems General General Remarks unable to obtain due to intubation. (Suad Lucas) Cardiovascular Cardiac: Edema (Suad Lucas) Objective Data Data Vital Signs Date Time Temp Pulse Resp B/P (MAP) Pulse Ox O2 Delivery O2 Flow Rate FiO2 12/26/17 08:28 100 50 12/26/17 06:00 81 12/26/17 04:00 98.3 93 18 103/75 (84) 99 12/26/17 04:00 93 12/26/17 03:52 99 40 12/26/17 02:00 100 12/26/17 00:00 95 12/26/17 00:00 98.6 95 17 110/61 (77) 100 12/25/17 23:17 99 40 12/25/17 22:00 109 12/25/17 20:15 98 Nasal Cannula 3.00 12/25/17 20:00 98.5 113 11 90/57 (68) 96 12/25/17 20:00 113 12/25/17 18:00 105 12/25/17 16:00 98.0 121 24 99/64 (76) 98 12/25/17 16:00 105 12/25/17 15:00 124 18 96 12/25/17 14:40 120 17 103/71 (82) 93 12/25/17 14:20 121 17 102/59 (73) 96 12/25/17 14:08 124 18 85/54 (64) 95 12/25/17 14:06 126 21 67/42 (50) 95 12/25/17 14:04 127 21 81/42 (55) 94 12/25/17 14:01 128 30 69/39 (49) 93 12/25/17 14:01 128 30 69/39 (49) 93 12/25/17 14:00 130 24 91 12/25/17 14:00 105 12/25/17 14:00 130 24 91 12/25/17 13:30 118 16 95 12/25/17 13:00 123 18 94/50 (65) 94 12/25/17 13:00 123 18 94/50 (65) 94 12/25/17 12:30 122 17 95 12/25/17 12:02 120 18 96/50 (65) 94 12/25/17 12:02 120 18 96/50 (65) 94 12/25/17 12:01 122 17 81/50 (60) 95 12/25/17 12:01 122 17 81/50 (60) 95 12/25/17 12:00 119 18 95 12/25/17 12:00 98.0 108 16 100/57 (71) 95 12/25/17 12:00 119 18 95 12/25/17 12:00 105 12/25/17 11:30 117 21 95 12/25/17 11:05 98 Nasal Cannula 4.00 12/25/17 11:01 117 18 106/51 (69) 93 12/25/17 11:01 117 18 106/51 (69) 93 12/25/17 11:00 112 17 93 12/25/17 11:00 112 17 93 12/25/17 10:30 112 17 94 12/25/17 10:00 110 17 96/51 (66) 96 12/25/17 10:00 110 17 96/51 (66) 96 12/25/17 10:00 105 (Suad Lucas) -: 12/26/17 0533 12/26/17 0533 Imaging Last 72 hours Impressions Chest X-Ray 12/26/17 0000 Signed Impressions: Service Date/Time: Tuesday, December 26, 2017 08:41 - CONCLUSION: Endotracheal tube tip 2-3 cm above the makeda in good position. Persistent opacification left hemithorax. Worsening diffuse infiltrates consistent with probable severe pulmonary vascular congestion or pneumonia. Elvin Childs MD Chest X-Ray 12/26/17 0000 Signed Impressions: Service Date/Time: Tuesday, December 26, 2017 03:28 - CONCLUSION: Interval complete opacification of the left hemithorax with volume loss and shift of the mediastinal structures towards that side. This raises concern for mucous plugging of the left mainstem bronchus. Dorian Wilson Jr., MD Tubes & Lines: Garcia Tubes & Lines Comment TLC Drip Comment Lasix @ 10 mg/hr (Suad Lucas) Physical Exam General Appearance: Well Developed, No Acute Distress, Sleeping, Obese Appearance Remarks intubated, unresponsive (Suad Lucas) Throat Throat Exam: Oral Mucosa Mitchell & Moist (Suad Lucas) Pulmonary Resp Exam: Decreased Bases, Diminished Breath Sounds Resp Remarks vented; wheezing on right; minimal air movement on left throughout entire lung field No SQ air noted (Suad Lucas) Cardiology CV Exam: Good Perfusion, Irregular, Tachycardia (Suad Lucas) Gastrointestinal/Abdomen GI Exam: Soft, Non-Tender, Bowel Sounds Present GI Remarks super morbidly obese (Suad Lucas) Musculoskeletal MS Exam: Joints Intact, Unable to Ambulate (Suad Lucas) Integumentary Skin Exam: Warm, Dry (Suad Lucas) Extremeties Extremities Exam: Pedal Pulses Palpable, Moderate Edema, Dependent Edema (Suad Lucas) Neurologic Neuro Exam: Unresponsive, Sedated (Suad Lucas) Psychiatric Psych Exam: Appropriate Responses (Suad Lucas) VTE Prophylaxis Device: SCDs (Suad Lucas) Assessment/Plan Assessment Summary: FREDDY/Acute Renal Failure, Fluid/Volume Overload, Hypertension Problem List: (1) FREDDY (acute kidney injury) ICD Codes: N17.9 - Acute kidney failure, unspecified Plan: Her best creatinine at discharge was 1.2 FREDDY this admission is multifactorial: Elevated vancomycin levels suggest she my have suffered vancomycin induced nephrotoxicity May have suffered hypoperfusion injury, possibly ATN due to hypotension and sepsis. Additionally FREDDY may be related to UTI; and finally allergic interstitial nephritis must also be considered. Renal function is slightly worse. Excellent response to diuresis. On Lasix to 10 mg/hr and 250 mg BID of Diuril. Continue drip for one more day. Continue to monitor urine output, has garcia currently. Repeat labs daily. Replace K and Mag as needed. Avoid nephrotoxic agents, renally dose when appropriate. Consider stopping/holding Xarelto during FREDDY (2) Hypernatremia ICD Codes: E87.0 - Hyperosmolality and hypernatremia Plan: Using Diuril Add free water via OG tube with tube feeding. (3) Respiratory failure ICD Codes: J96.90 - Respiratory failure, unspecified, unspecified whether with hypoxia or hypercapnia Plan: s/p intubation Due for bronchoscopy today to remove mucous plug (suspected) (4) Afib ICD Codes: I48.91 - Unspecified atrial fibrillation Status: Chronic Plan: rate improved. c On PO Cardizem and PO metoprolol (5) Anemia ICD Codes: D64.9 - Anemia, unspecified Plan: No evidence of iron deficiency Monitor hemoglobin (6) UTI (urinary tract infection) ICD Codes: N39.0 - Urinary tract infection, site not specified Plan: ID is following. She is on Avycaz and PO Diflucan (new). Contact precautions (7) Pneumonia ICD Codes: J18.9 - Pneumonia, unspecified organism Status: Acute Plan: See above. ID is following. Started on IV vancomycin. (8) C. difficile colitis ICD Codes: A04.72 - Enterocolitis due to Clostridium difficile, not specified as recurrent Plan: PO vancomycin Contact precautions. (Suad Lucas) Plan patient was seen and examined. Agree with above assessment and plan. (Mohinder Lopez MD) Problem Qualifiers (1) Afib: Qualified Codes: I48.2 - Chronic atrial fibrillation Suad Lucas Dec 26, 2017 10:09 Mohinder Lopez MD Dec 27, 2017 08:19
[2017-12-26] MEDS: FLUCONAZOLE 100 MG TAB PO SCH (10:13)
[2017-12-26] MEDS: FREE WATER G-TUBE SCH ×2 (12:00→16:46)
--- NOTE | 2017-12-26 12:50 | HHI.PR ---
Subjective Remarks Went into Respiratory failure and Atelectasis of the left lung. Intubated and now on the vent. CXR shows left lung Opacity Objective Vital Signs Date Time Temp Pulse Resp B/P (MAP) Pulse Ox O2 Delivery O2 Flow Rate FiO2 12/26/17 12:00 97.5 83 17 110/61 (77) 100 12/26/17 11:01 77 16 103/58 (73) 100 12/26/17 11:00 79 17 100 12/26/17 11:00 79 12/26/17 10:30 85 18 113/66 (82) 100 12/26/17 10:00 81 12/26/17 10:00 81 17 99/53 (68) 100 12/26/17 09:30 86 17 104/58 (73) 100 12/26/17 09:00 92 16 92/55 (67) 100 12/26/17 09:00 87 12/26/17 08:31 85 16 104/60 (75) 100 12/26/17 08:28 100 50 12/26/17 08:05 50 12/26/17 08:00 83 12/26/17 08:00 97.8 89 23 122/68 (86) 96 12/26/17 07:42 80 25 113/70 (84) 97 12/26/17 07:21 79 22 101/62 (75) 99 12/26/17 07:00 77 13 99/55 (70) 99 12/26/17 07:00 77 12/26/17 06:00 81 12/26/17 04:00 98.3 93 18 103/75 (84) 99 12/26/17 04:00 93 12/26/17 03:52 99 40 12/26/17 02:00 100 12/26/17 00:00 95 12/26/17 00:00 98.6 95 17 110/61 (77) 100 12/25/17 23:17 99 40 12/25/17 22:00 109 12/25/17 20:15 98 Nasal Cannula 3.00 12/25/17 20:00 98.5 113 11 90/57 (68) 96 12/25/17 20:00 113 12/25/17 18:00 105 12/25/17 16:00 98.0 121 24 99/64 (76) 98 12/25/17 16:00 105 12/25/17 15:00 124 18 96 12/25/17 14:40 120 17 103/71 (82) 93 12/25/17 14:20 121 17 102/59 (73) 96 12/25/17 14:08 124 18 85/54 (64) 95 12/25/17 14:06 126 21 67/42 (50) 95 12/25/17 14:04 127 21 81/42 (55) 94 12/25/17 14:01 128 30 69/39 (49) 93 12/25/17 14:01 128 30 69/39 (49) 93 12/25/17 14:00 130 24 91 12/25/17 14:00 105 12/25/17 14:00 130 24 91 12/25/17 13:30 118 16 95 12/25/17 13:00 123 18 94/50 (65) 94 12/25/17 13:00 123 18 94/50 (65) 94 I/O 12/25/17 12/25/17 12/25/17 12/26/17 12/26/17 12/26/17 07:00 15:00 23:00 07:00 15:00 23:00 Intake Total 120 ml 50 ml 879 ml 100 ml Output Total 651 ml 750 ml 900 ml Balance -531 ml 50 ml 129 ml -800 ml Intake Oral 120 ml 480 ml 100 ml IV Total 50 ml 399 ml Output Urine Total 650 ml 750 ml 900 ml Stool Total 1 ml 0 ml # Bowel Movements 1 1 Result Diagram: 12/26/17 0533 12/26/17 0533 Objective Remarks GENERAL: This is a Obese elderly W/F patient, on the vent CARDIOVASCULAR: Regular rate and rhythm without murmurs, gallops, or rubs. RESPIRATORY: Diffuse expiratory wheezes, diminished breath sounds left chest . Crackles at bases . GASTROINTESTINAL: Abdomen soft, non-tender,nondistended. Normal active bowel sounds MUSCULOSKELETAL: Extremities without clubbing, cyanosis,but has 2 + edema. NEURO: Sedated Assessment and Plan Assessment and Plan (1) Acute hypercapnic respiratory failure Diagnosis: Principal (2) Hypoglycemia Diagnosis: Principal (3) BMI 50.0-59.9, adult Diagnosis: Principal (4) Afib Diagnosis: Secondary (5) Dyslipidemia Diagnosis: Secondary (6) Peripheral neuropathy Diagnosis: Secondary (7) Diabetes mellitus Diagnosis: Principal (8) Essential hypertension Diagnosis: Principal (9) Hiatal hernia Diagnosis: Secondary (10) Gastroesophageal reflux disease Diagnosis: Secondary (11) Chronic kidney disease (CKD) stage G3a/A3, moderately decreased glomerular filtration rate (GFR) between 45-59 mL/min/1.73 square meter and albuminuria creatinine ratio greater than 300 mg/g Diagnosis: Secondary (12) Left Lung atelectasis. Plan : 1.Bronchoscopy today 2. Continue antibiotics. and switch to PO 3 Vent support and wean FIo2 4. Duonebs qid. 5. O2 3L daytime 6. PT and OT. 7. Cont Diuretic Drip 8. Labs in am 9. Prednisone 20 mg bid Francoise Poon MD Dec 26, 2017 12:50
--- NOTE | 2017-12-26 13:02 | MP ---
cc: Francoise Poon MD DATE OF OPERATION: 12/26/2017 PROCEDURE: Fiberoptic bronchoscopy with therapeutic lavage and bronchial aspiration. ANESTHESIA: IV propofol. The patient is intubated and on ventilator support. SURGEON: Diana Poon MD PREOPERATIVE DIAGNOSIS: Atelectasis left lung. POSTOPERATIVE DIAGNOSIS: Atelectasis left lung. PROCEDURE: The patient was already on ventilator support and had been intubated and the Olympus IT180 bronchoscope was advanced via the endotracheal tube into the trachea. The trachea showed tracheomalacia with invagination of the posterior wall of the trachea. Similarly, the right mainstem bronchus had bronchomalacia extending downwards toward the right upper lobe bronchi. The right upper lobe bronchi had thick mucoid secretions which were suctioned out. Saline washings were done. Next, the scope was advanced to the right middle and lower lobe segmental bronchi which demonstrated a few mucoid secretions and mild endobronchitis and the secretions were suctioned out. No endobronchial lesions were seen on the right side. The scope was then withdrawn. The scope was advanced towards the left mainstem bronchus which showed thick mucoid secretions and plugs. These were suctioned out. Some of the mucoid secretions were bloody. These were lavage out with saline. There was tracheobronchomalacia noted leading towards the left mainstem and left upper lobe bronchi. The left upper bronchus was filled with mucoid plugs and secretions. These were suctioned out. Saline washings and lavage were carried out and clear. There was moderate endobronchitis noted, but no endobronchial lesions were seen. The scope was also advanced to the left lower lobe segmental bronchi which demonstrated thick mucoid secretions. The secretions were suctioned out and saline lavage was done. The underlying bronchi showed mucosa edema and moderate endobronchitis. No endobronchial masses were seen. Saline lavage was carried out and the procedure was then terminated. The patient tolerated the procedure well. Francoise Poon MD VJD/DL , 12:46 PM , 01:01 PM
--- NOTE | 2017-12-26 14:53 | RADRPT ---
EXAM DATE/TIME: 12/26/2017 13:19 [facility] COMPARISON: CHEST SINGLE AP, December 26, 2017, 8:41. INDICATIONS : Atelectasis. MEDICAL HISTORY : None. SURGICAL HISTORY : None. ENCOUNTER: Subsequent ACUITY: 2 weeks PAIN SCORE: Non-responsive. LOCATION: chest FINDINGS: A single view of the chest demonstrates endotracheal tube in good position. Right central line near c avoatrial junction. NG enters stomach. There is complete atelectasis of the left lung with mediastina l shift from right to left. Right basilar and perihilar air space disease also present. CONCLUSION: 1. There is atelectasis of the left lung with an unknown amount of pleural effusion. There is mediast inal shift from right to left. There is basilar dependent airspace disease in the right lung that is similar to December 26. Sachin Gonzalez MD on December 26, 2017 at 14:49 Board Certified Radiologist. This report was verified electronically.
[2017-12-26] MEDS: CHLORHEXIDINE 0.12% (ORAL KIT) 15 ML CUP MT SCH (21:33)
[2017-12-27] VITALS (26 sets, daily range): BP systolic 95–154; BP diastolic 56–80; PULSE 79–109; RESP 16–22; TEMP 96.4–97.6; O2SAT 78–100
[2017-12-27] MEDS: PROPOFOL 1000 MG/100 ML INJ 100 ML IV PRN ×7 (00:32→23:27)
[2017-12-27] MEDS: FUROSEMIDE INJ 100 MG in SODIUM CHLORIDE 0.9% INJ 90 ML IV SCH ×3 (00:56→18:58)
[2017-12-27] MEDS: RESP: ALBUTEROL 2.5 MG/IPRATROPIUM 0.5 MG NEB (SCH) NEB ×5 (03:16→19:24)
[2017-12-27] MEDS: CHLORHEXIDINE GLUCONATE 2 % 1 PACK (2 CLOTHS) TOP SCH (03:26)
[2017-12-27] MEDS: DILTIAZEM HCL 60 MG TAB PO SCH ×4 (05:09→17:53)
[2017-12-27] MEDS: FREE WATER G-TUBE SCH ×5 (05:09→23:27)
[2017-12-27] MEDS: RESP: BUDESONIDE 0.5 MG/2 ML NEB NEB SCH ×2 (07:17→19:25)
[2017-12-27] MEDS: INSULIN NovoLIN REGULAR SUPPLEMENTAL SCALE SQ SCH ×4 (07:48→20:15)
[2017-12-27] MEDS: PANTOPRAZOLE SOD 40 MG DELAYED RELEASE TAB PO SCH (07:51)
[2017-12-27] MEDS: PREGABALIN 75 MG CAP PO SCH (07:51)
[2017-12-27] MEDS: SERTRALINE HCL 100 MG TAB PO SCH (07:51)
[2017-12-27] MEDS: LACTOBACILLUS ACIDOPHILUS TAB PO SCH ×3 (07:51→17:53)
[2017-12-27] MEDS: CHLOROTHIAZIDE SOD 500 MG VIAL IV SCH ×2 (07:52→20:15)
[2017-12-27] MEDS: RIVAROXABAN 10 MG TAB PO SCH (07:52)
[2017-12-27] MEDS: predniSONE 20 MG TAB PO SCH ×2 (07:52→20:15)
[2017-12-27] MEDS: ASCORBIC ACID 500 MG TAB PO SCH ×2 (07:52→20:15)
[2017-12-27] MEDS: SODIUM CHLORIDE 0.9% FLUSH 10 ML FLUSH IV FLUSH SCH ×2 (07:52→20:16)
[2017-12-27] MEDS: METOPROLOL TARTRATE 25 MG TAB PO SCH ×2 (07:52→20:15)
[2017-12-27] MEDS: cefTAZidime/AVIBACTAM INJ 0.94 GM in SODIUM CHLORIDE 0.9% INJ 50 ML IV SCH ×2 (07:53→20:15)
[2017-12-27] MEDS: MUPIROCIN 2% OINT 1 APPLIC/GM SYR EACH NARE SCH ×2 (07:53→20:15)
[2017-12-27] MEDS: CHLORHEXIDINE 0.12% (ORAL KIT) 15 ML CUP MT SCH ×2 (07:53→20:17)
[2017-12-27] MEDS: DOCUSATE SODIUM 50 MG/SENNA 8.6 MG TAB PO SCH ×2 (07:53→20:15)
[2017-12-27] MEDS: NYSTATIN 100,000 U/GM PWD 15 GM BTL TOPICAL SCH ×2 (07:54→20:16)
[2017-12-27] MEDS: VANCOMYCIN 25 MG/ML SOLN 100 ML BOTTLE PO SCH ×3 (07:54→17:53)
[2017-12-27 09:01] LABS: ALBUMIN 2.6 GM/DL (3.4-5.0); ALT (GPT) 24 U/L (10-53); AST (GOT) 65 U/L (15-37); BICARBONATE 18.9 MEQ/L (21.0-32.0); CHLORIDE 108 MEQ/L (98-107); CREATININE 2.42 MG/DL (0.50-1.00); GLOMERULAR FILTRATION RATE 20 ML/MIN (>89); GLUCOSE,RANDOM 91 MG/DL (74-106); SODIUM (NA) 144 MEQ/L (136-145)
--- NOTE | 2017-12-27 09:01 | RADRPT ---
EXAM DATE/TIME: 12/27/2017 07:54 [facility] COMPARISON: CHEST SINGLE AP, December 26, 2017, 3:28. CHEST SINGLE AP, December 26, 2017, 8:41. CHEST SINGLE AP, 2017, 13:19. INDICATIONS : Left lung collapse. MEDICAL HISTORY : Hypertension. Diabetes mellitus type II, Cerebrovascular disease. SURGICAL HISTORY : Appendectomy. ENCOUNTER: Subsequent ACUITY: 2 weeks PAIN SCORE: Non-responsive. LOCATION: Left chest FINDINGS: Stable ETT, right IJ central line in NGT coursing down the GE junction with tip omitted from the imag e. Improved aeration in the left upper lung zone with persistent volume loss and airspace disease thr oughout the left lung. Cardiomediastinal contours are stable. Remainder of the exam is unchanged. CONCLUSION: 1. Stable tubes and lines. 2. Improved aeration in the left upper lung zone with extensive residual airspace disease and volume loss in the left lung. Riccardo Stack MD on December 27, 2017 at 8:57 Board Certified Radiologist. This report was verified electronically.
[2017-12-27 09:03] LABS: ALKALINE PHOSPHATASE 69 U/L (45-117); TOTAL BILIRUBIN ADULT 0.4 MG/DL (0.2-1.0)
--- NOTE | 2017-12-27 09:11 | HHI.CCPN ---
Subjective Remarks/Hospital Course This is a 67-year-old female. Date of admission 12/13/2017. Past medical history includes elevated BMI, chronic asthma on chronic oxygen, atrial fibrillation/rate controlled, hypertension dyslipidemia. Today, patient presents to [facility] emergency department after being found unresponsive at the assisted. She was just discharged from the hospital 12/10/2017 from [facility]. She is morbidly obese with multiple severe chronic illnesses and was both in respiratory distress and decreased responsiveness at the same time. She was noted to be hypoxic with saturations in the e 80s with nasal cannula. Was brought in on BiPAP. Accu-Chek was in the 30s when paramedics found her. Initial GCS was reported as 3. She received some D10 through a right arm PICC line but upon arrival staff felt that the PICC line was not working properly. Patient cannot provide any history or review of systems. She arrives critically ill Patient received D50 and a central line in the right internal jugular was placed by ED physician as no significant access was available. Chest x-ray revealed no acute cardiopulmonary findings. After being placed on BiPAP and receiving glucose patient's mentation is much improved and likely can be removed in the ICU. Less confused when evaluated in the ED. UA is positive. Previous history of Pseudomonas sensitive to aztreonam 3: Currently resting in bed in no acute distress on 3 L nasal cannula. Overnight on BiPAP/Venturi mask currently on 3 L nasal cannula. Difficult to arouse but once arousable does follow commands in all 4 extremities but weakly. Blood sugar 135. ABG currently pending Subjective 12/15: Afebrile. Resting in bed on nasal cannula. Arousable and following commands. Ill-definition due to hypo-tension. I will place arterial line secondary to body habitus. She does not appear septic. She is more awake and alert and attentive today as compared to yesterday. 3: Alert and oriented 3, responding to questions appropriately. Arterial line inability to play secondary to body habitus. Patient remained on phenylephrine during the night but now map remains less than 60 will resume phenylephrine infusion, and initiate Midodrine. 12/17: Hemodynamically stable. Phenylephrine infusion off since last night. MAP 80's. Patient alert and oriented, tolerating diet/breakfast. 12/18: Late entry note. Hemodynamically stable. Decrease FiO2 requirements currently on 2 L nasal cannula O2 saturation 97-98 %. RECONSULT 12/19: Patient became hemodynamically unstable this afternoon requiring reinitiation of phenylephrine infusion currently at 70 mcgs/minute. 12/20: Patient became somnolent last evening noted respiratory acidosis around 2 AM. Patient placed back on BiPAP. ID has been consulted for MDR Klebsiella. Patient awake and alert this afternoon, and denies pain. 12/21: Respiratory status much improved, and to remain on BiPAP at night while sleeping. ABGs improved. Patient hemodynamically stable no vasopressor requirements at this time. IV fluids discontinued. Patient tolerating a diet. 12/22: Patient remains a respiratory acidosis, slightly more lethargic today. Patient placed on BiPAP with exception of meals today. Repeat ABG pending this afternoon 12/23: ABG's and neuro status unchanged. Patient remains on BiPAP with exception of meals. Repeat ABG pending this afternoon. Ammonia level ordered. 12/24 Patient is on BIPAP 15/ with 40% . In Afib with RVR 12/25 No events overnight. Remains on BIPAP. Started on Lasix drip per renal 20mg /hr 12/26: Patient remains on BiPAP lethargic. Air entry is diminished on the left side. Chest x-ray shows complete whiteout on the left side with mediastinal shift to the left indicating mucus plugging and left lung collapse. Will proceed with emergency intubation and bronchoscopy (I discussed with Dr. Baca -he will do bronchoscopy at 11:30 AM today) 12/27: Intubated yesterday for severe left lung atelectasis. Underwent bronchoscopy by Dr. Baca. Bronchoscopy showed tracheomalacia and bronchomalacia involving right mainstem bronchi, left mainstem and left upper lobe bronchi. Significant thick mucoid secretions in right upper lobe bronchi, left upper bronchus and also left lower lobe. Moderate endobronchitis. Chest x -ray shows moderate improvement in left upper lobe but persistent dense consolidation middle and lower lung zones. Check CT of the chest stat today Objective Vital Signs Date Time Temp Pulse Resp B/P (MAP) Pulse Ox O2 Delivery O2 Flow Rate FiO2 12/27/17 07:18 100 45 12/27/17 06:00 92 12/27/17 04:00 96.7 16 95/64 (74) 12/25/17 20:15 Nasal Cannula 3.00 Intake and Output 12/27/17 12/27/17 12/28/17 08:00 16:00 00:00 Intake Total 860 ml Output Total 1300 ml Balance -440 ml Result Diagram: 12/26/17 0533 12/26/17 0533 Other Results Laboratory Tests Test 12/26/17 10:40 Blood Gas Puncture Site RT RADIAL Blood Gas Patient Temperature 98.6 Blood Gas HCO3 18 mmol/L (22-26) Blood Gas Base Excess -6.3 mmol/L (-2-2) Blood Gas Oxygen Saturation 96 % (90-100) Arterial Blood pH 7.36 (7.380-7.420) Arterial Blood Partial Pressure CO2 33 mmHg (38-42) Arterial Blood Partial Pressure O2 137 mmHg (61-120) Arterial Blood Oxygen Content 11.9 Vol % (12.0-20.0) Arterial Blood Carboxyhemoglobin 1.5 % (0-4) Arterial Blood Methemoglobin 1.4 % (0-2) Blood Gas Hemoglobin 8.6 G/DL (12.0-16.0) Oxygen Delivery Device VENTILATOR Blood Gas Ventilator Setting PRVC/AC Blood Gas Inspired Oxygen 50 % Imaging Last Impressions Chest X-Ray 12/23/17 0600 Signed Impressions: Service Date/Time: Saturday, December 23, 2017 03:43 - CONCLUSION: No significant change. Perry Neri MD Abdomen/Pelvis CT 12/20/17 0000 Signed Impressions: Service Date/Time: December 21:20 - CONCLUSION: Stable appearance to the CT abdomen/pelvis were compared to 11/26/17. Right double-J stent in place, multiple gallstones, left renal mass, left lateral ventral hernia. Dorian Vasquez MD Upper Extremity Ultrasound 12/13/17 0000 Signed Impressions: Service Date/Time: December 13:43 - CONCLUSION: 1. No deep venous thrombosis in the left upper extremity. 2. Superficial thrombosis of the right cephalic vein. El Nuñez MD Lower Extremity Ultrasound 12/13/17 0000 Signed Impressions: Service Date/Time: December 14:26 - CONCLUSION: Normal examination. Domingo Calderon MD Head CT 12/13/17 0000 Signed Impressions: Service Date/Time: December 13:30 - CONCLUSION: Normal examination. Domingo Calderon MD Objective Remarks GENERAL: 67-year-old super morbidly obese female critically ill on full ventilator support, sedated with propofol SKIN: Warm and dry. HEAD: Atraumatic. Normocephalic. EYES: Pupils equal and round about 3 mm bilaterally and reactive. No scleral icterus. No injection or drainage. ENT: No nasal bleeding or discharge. Orotracheally intubated NECK: Trachea midline. No JVD. CARDIOVASCULAR: IRR. Distant heart tones. S1, S2. No S4. Without murmur RESPIRATORY: Diminished breath sounds throughout, but particularly absent in the left lower lung west. Bilateral coarse rhonchi. PRVC TV 650, PEEP 10 for lung recruitment GASTROINTESTINAL: Abdomen soft, obese, nontender. Hypoactive bowel sounds are appreciated MUSCULOSKELETAL: Extremities with 2+ bilateral upper and lower extremity edema NEUROLOGICAL: Intubated sedated with propofol but wakes up easily follows commands. No obvious cranial nerve deficits. Motor grossly within normal limits. Urinary Catheter: Yes Assessment to: Continue Date of Insertion: Dec 13, 2017 Line: Central Venous Catheter Side: Right Location: Internal, Jugular A/P Assessment and Plan Neuro/Psych: Acute toxic metabolic encephalopathy likely secondary to hypoglycemia/CO2 retention Chronic benzodiazepine use Depression disorder NOS Diabetic neuropathy Chronic pain syndrome with chronic narcotic use Use propofol, fentanyl for sedation after intubation Holding hydrocodone/acetaminophen 5/321 tablet every 6 hours as needed pain Continue sertraline 100 mg p.o. daily for depression Continue pregabalin 75 mg p.o. daily for peripheral neuropathy CT brain 12/13 revealed no acute intracranial findings CV: Atrial fibrillation with RVR, now rate controlled Hypertension Fluid overload On Lopressor 50mg Q12, Cardizem 60mg Q6, Monitor HR and BP keep MAP>65mmHg 2D echocardiogram 12/02 - EF 50-55%. The left atrial size is mildly dilated. The right atrial size is moderately dilated. Trace TR Resp: Acute hypoxic, hypercapnic respiratory failure Complete left lung collapse/mucus plugging APOLONIA/OHS History recurrent MRSA pneumonia Status post intubation and bronchoscopy 12/26/2017, bronchoscopy showed thick mucoid secretions in left upper lobe left lower lobe and right upper lobe Significant tracheomalacia and bronchomalacia involving the right and left main stem bronchi Dr. Baca pulmonary following DuoNeb every 4 hours scheduled. Add Mucomyst nebulizer every 4 hours scheduled for 3 days [facility] AC 16/650/10 FiO2 40%. Use high tidal volume for right lung recruitment CT of the chest to evaluate for trapped lung and external bronchial compression Continue budesonide 0.5 mg/2 mL nebulizers every 12 hours On Prednisone 20mg BID GI: BMI greater than 50 Gastroesophageal reflux disease NPO for intubation and bronchoscopy. Start tube feeds today with Nepro with free water flushes Pantoprazole for GI prophylaxis. Patient is on famotidine 20 mg p.o. daily at home Docusate sodium/senna 1 tablet twice daily for bowel regimen. Patient is on senna 8.6 mg twice daily at home Having regular bowel movement Continue ondansetron 4 mg every 6 hours as needed nausea : Acute on chronic kidney disease Monitor renal function, I/O's, avoid nephrotoxins Cr: 2.42 today with UOP: 2.6 L in 24 hrs Renal is following started on Lasix drip, currently on 10mg/hr Solitario catheter to maintain patency with recent pyelonephritis/GJ placement. Outpatient J stent removal by urology placed during last hospitalization 12/02 12/20 CT abd/pelvis: No hydronephrosis Endo: Diabetes mellitus Acute hypoglycemia-resolved Sliding scale insulin with Novolin R with Accu-Cheks to maintain euglycemia before meals at bedtime. Heme: Normocytic anemia Chronic Rivaroxaban use Right cephalic vein superficial thrombus Monitor CBC Continue with rivaroxaban 10 mg daily ID: Urinary tract infection/MDR Klebsiella History of MRSA History of C. difficile Blood cx 12/20 Leni avila Currently on PO vancomycin, Avycaz per ID. 1 dose of vanc given 12/26 Monitor for signs of infections ( Fever, WBC) Pertinent cultures Urine Legionella pneumococcal antigens negative Urine culture 12/13 Klebsiella ESBL Blood culture 12/20: [facility]ERS[facility] SPP Access -Right IJ CVL placed the ED 12/13 Prophylaxis -GI -pantoprazole -DVT -SCD/rivaroxaban CCT 35 min excluding procedures Remains critically ill with persistent respiratory failure and continued left lung collapse. CT of the chest that today to evaluate for lung trapping or external bronchial compression. Yoandy Amador MD Dec 27, 2017 09:11
[2017-12-27 09:16] LABS: BLOOD UREA NITROGEN 35 MG/DL (7-18)
[2017-12-27] MEDS: FLUCONAZOLE 100 MG TAB PO SCH (09:30)
--- NOTE | 2017-12-27 10:56 | RADRPT ---
EXAM DATE/TIME: 12/27/2017 10:29 [facility] COMPARISON: CT THORAX W/O CONTRAST, November 26, 2017, 17:16. INDICATIONS : Left atelectasis. RADIATION DOSE: 19.94 CTDIvol (mGy) MEDICAL HISTORY : Hypertension. Congestive heart failure. SURGICAL HISTORY : Appendectomy. Hysterectomy. ENCOUNTER: Initial ACUITY: 1 day PAIN SCALE: 0/10 LOCATION: chest TECHNIQUE: Volumetric scanning of the chest was performed. Using automated exposure control and adjustment of t he mA and/or kV according to patient size, radiation dose was kept as low as reasonably achievable to obtain optimal diagnostic quality images. DICOM format image data is available electronically for r eview and comparison. Follow-up recommendations for detected pulmonary nodules are based at a minimum on nodule size and pa tient risk factors according to Fleischner Society Guidelines. FINDINGS: There is basilar atelectasis and small bilateral pleural effusions that have increased in size since November 26. Basilar atelectasis has also worsened. There is mild groundglass opacity predominantly p erihilar and upper lobe. There is cardiomegaly. Endotracheal tube is in good position. NG enters stomach. Right central line a t cavoatrial junction. Multiple gallstones in the gallbladder. CONCLUSION: 1. Basilar atelectasis and small pleural effusions, increased from November 26. Mild perihilar ground glass opacity present most characteristic of minimal pulmonary edema. 2. Support apparatus as above. Moderate coronary calcifications. Sachin Gonzalez MD on December 27, 2017 at 10:47 Board Certified Radiologist. This report was verified electronically.
--- NOTE | 2017-12-27 12:42 | HHI.IDPN ---
Subjective Subjective Remarks Patient is a 67-year-old female, resides in the long term, brought into the hospital after she was found unresponsive. She had a recent hospitalization where she was diagnosed to have sepsis related to complicated UTI. During that hospitalization she underwent stent placement. She also had C. difficile colitis during that admission. Patient states that she uses a BiPAP machine in the long term usually when she is sleeping. She is nonambulatory. Denies any significant cough or congestion. No chest pain. There was no mention of any fever or chills or sweats. When she also came to the hospital this time she was on pressors for hypotension. She improved clinically and her hemodynamics stabilize. However yesterday she went hypotensive again, an infectious disease consultation has been requested to evaluate the patient. Notes reviewed Temps ok On the vent Had bronch yesterday, findings noted CXR with white out L with mediastinal shift to the left BP ok, not on pressors Sedated UO has increased CT chest with increased atelectasis Bronch C/S neg 24 hours Antibiotics Avycaz PO Vanco Diflucan Current Medications Medications (Trade) Dose Ordered Sig/Mirta Route Start Time Stop Time Status Last Admin (NS Flush) 2 ml UNSCH PRN IV FLUSH 12/13/17 13:30 (NS Flush) 2 ml BID IV FLUSH 12/13/17 21:00 12/27/17 07:52 (Tylenol) 650 mg Q6H PRN PO 12/13/17 13:30 12/14/17 09:42 (Protonix) 40 mg DAILY PO 12/14/17 09:00 12/27/17 07:51 (Zofran Inj) 4 mg Q6H PRN IV PUSH 12/13/17 13:30 Miscellaneous Information 1 Q361D XX 12/13/17 13:30 12/13/17 13:30 (Chlorhexidine 2% Cloth) Taper DAILY@04 TOP 12/14/17 04:00 12/10/18 03:59 12/26/17 04:00 (Chlorhexidine 2% Cloth) 3 pack UNSCH PRN TOP 12/13/17 13:30 (Zelda-Colace) 1 tab BID PO 12/13/17 21:00 12/26/17 21:35 (Milk Of Magnesia Liq) 30 ml Q12H PRN PO 12/13/17 13:30 (Senokot) 17.2 mg Q12H PRN PO 12/13/17 13:30 (Dulcolax Supp) 10 mg DAILY PRN RECTAL 12/13/17 13:30 (Lactulose Liq) 30 ml DAILY PRN PO 12/13/17 13:30 (Xanax) 1 mg BID PRN PO 12/13/17 13:30 (Pulmicort Respule Neb) 0.5 mg Q12HR NEB NEB 12/13/17 20:00 12/27/17 07:17 (Lyrica) 75 mg DAILY PO 12/14/17 09:00 12/27/17 07:51 (Zoloft) 100 mg DAILY PO 12/14/17 09:00 12/27/17 07:51 (Vitamin C) 500 mg BID PO 12/13/17 21:00 12/27/17 07:52 (Lactinex) 1 tab TID PO 12/13/17 18:00 12/27/17 07:51 (D50w (Vial) Inj) 50 ml UNSCH PRN IV PUSH 12/13/17 13:30 12/19/17 22:25 (Glucagon Inj) 1 mg UNSCH PRN OTHER 12/13/17 13:30 (NovoLIN R SUPPLEMENTAL SCALE) 1 ACHS SLIDING SCALE SQ 12/13/17 17:00 12/14/17 17:00 (Pill Splitter) 1 ea UNSCH PRN OTHER 12/13/17 13:30 (Xarelto) 10 mg DAILY PO 12/14/17 09:00 12/27/17 07:52 (Mycostatin Powder) 1 applic Q12HR TOPICAL 12/13/17 21:00 12/27/17 07:54 (Trandate Inj) 10 mg Q1HR PRN IV PUSH 12/13/17 17:00 (Nitroglycerin 2% Oint) 2 inch Q6HR PRN TOPICAL 12/13/17 18:00 (Apresoline Inj) 10 mg Q1HR PRN IV PUSH 12/13/17 17:00 (Brethine Inj) 1 mg UNSCH PRN SQ 12/15/17 10:15 (Bactroban Nasal 2% Oint) Taper BID EACH NARE 12/15/17 21:00 12/11/18 20:59 12/27/17 07:53 Ceftazidime/ Avibactam 0.94 gm/ Sodium Chloride 50 ml @ 25 mls/hr Q12HR IV 12/20/17 13:00 12/27/17 07:53 (Duoneb Neb) 1 ampule Q2HR NEB PRN NEB 12/23/17 09:45 (Cardizem) 60 mg Q6HR PO 12/24/17 12:00 12/27/17 11:22 (Lopressor) 100 mg Q12HR PO 12/24/17 21:00 12/27/17 07:52 Furosemide 100 mg/ Sodium Chloride 100 ml @ 10 mls/hr CONTINUOUS IV 12/24/17 17:00 12/27/17 11:21 (Deltasone) 20 mg BID PO 12/24/17 21:00 12/27/17 07:52 (Diuril Inj) 250 mg BID IV 12/25/17 11:00 12/27/17 07:52 (Vancomycin 25 Mg/ml Liq) 125 mg TID PO 12/25/17 13:00 12/27/17 11:27 (Peridex 0.12% Liq) 15 ml BID@08,20 MT 12/26/17 20:00 12/27/17 07:53 Propofol 100 ml @ 4.176 mls/ hr TITRATE PRN IV 12/26/17 09:00 12/27/17 12:38 (Diflucan) 100 mg Q24H PO 12/26/17 10:00 12/27/17 09:30 (Free Water) VOLUME: 300 ML Q6HR G-TUBE 12/26/17 12:00 12/27/17 11:23 (Duoneb Neb) 1 ampule Q4HR NEB NEB 12/27/17 12:00 12/27/17 10:49 (Mucomyst 20% Neb) 2 ml Q4HR NEB NEB 12/27/17 12:00 12/30/17 11:59 Lines RIJ TLC Past Medical History Chronic respiratory failure secondary to APOLONIA, OHS and bronchial asthma Atrial fibrillation rate controlled Hypertension Dyslipidemia Gastroesophageal reflux disease Elevated BMI greater than 50 Recurrent MRSA pneumonia Depression Constipation Past Surgical History JJ stent placement by urology Hiatal hernia surgery Appendectomy Percutaneous tracheostomy by Dr. Mullins since decannulated Allergies: Coded Allergies: penicillin G (Unverified Allergy, Severe, 05/29/17) Objective . Vital Signs Date Time Temp Pulse Resp B/P (MAP) Pulse Ox O2 Delivery O2 Flow Rate FiO2 12/27/17 10:57 98 100 12/27/17 10:50 99 45 12/27/17 07:18 100 45 12/27/17 06:00 92 12/27/17 04:09 100 45 12/27/17 04:00 96.7 99 16 95/64 (74) 100 12/27/17 04:00 99 12/27/17 04:00 45 12/27/17 02:00 101 12/27/17 00:15 100 45 12/27/17 00:00 96.4 97 16 109/60 (76) 100 12/27/17 00:00 97 12/27/17 00:00 45 12/26/17 22:00 98 12/26/17 21:09 100 45 12/26/17 20:00 79 12/26/17 20:00 96.3 79 16 121/56 (77) 100 12/26/17 20:00 45 12/26/17 18:00 81 12/26/17 17:31 88 16 109/63 (78) 100 12/26/17 17:00 81 16 109/67 (81) 100 12/26/17 17:00 80 12/26/17 16:49 100 45 12/26/17 16:31 83 16 122/73 (89) 100 12/26/17 16:00 71 12/26/17 16:00 97.4 67 110/56 (74) 100 12/26/17 16:00 50 12/26/17 15:31 72 104/57 (73) 100 12/26/17 15:00 71 12/26/17 15:00 69 99/57 (71) 100 12/26/17 14:31 73 100/57 (71) 100 12/26/17 14:15 100 50 12/26/17 14:00 82 16 103/63 (76) 100 12/26/17 14:00 84 12/26/17 13:34 100 50 12/26/17 13:31 79 110/69 (83) 100 12/26/17 13:00 88 14 109/75 (86) 12/26/17 13:00 87 . Laboratory Tests Test 12/26/17 05:33 White Blood Count 7.9 TH/MM3 Red Blood Count 3.06 MIL/MM3 Hemoglobin 8.9 GM/DL Hematocrit 28.0 % Mean Corpuscular Volume 91.6 FL Mean Corpuscular Hemoglobin 29.1 PG Mean Corpuscular Hemoglobin Concent 31.8 % Red Cell Distribution Width 18.3 % Platelet Count 199 TH/MM3 Mean Platelet Volume 8.2 FL Neutrophils (%) (Auto) 88.2 % Lymphocytes (%) (Auto) 6.3 % Monocytes (%) (Auto) 5.2 % Eosinophils (%) (Auto) 0.1 % Basophils (%) (Auto) 0.2 % Neutrophils # (Auto) 7.0 TH/MM3 Lymphocytes # (Auto) 0.5 TH/MM3 Monocytes # (Auto) 0.4 TH/MM3 Eosinophils # (Auto) 0.0 TH/MM3 Basophils # (Auto) 0.0 TH/MM3 CBC Comment AUTO DIFF Differential Total Cells Counted 100 Neutrophils % (Manual) 74 % Band Neutrophils % 6 % Lymphocytes % 7 % Monocytes % 3 % Neutrophils # (Manual) 7.1 TH/MM3 Metamyelocytes 3 % Myelocytes 7 % Nucleated Red Blood Cells 5 /100 WBC Differential Comment FINAL DIFF MANUAL Platelet Estimate NORMAL Platelet Morphology Comment NORMAL Polychromasia 2.0 % Basophilic Stippling FAINT Laboratory Tests Test 12/26/17 05:33 12/27/17 08:23 Blood Urea Nitrogen 34 MG/DL 35 MG/DL Creatinine 2.49 MG/DL 2.42 MG/DL Random Glucose 128 MG/DL 91 MG/DL Calcium Level 8.0 MG/DL 8.0 MG/DL Sodium Level 147 MEQ/L 144 MEQ/L Potassium Level 4.0 MEQ/L 3.8 MEQ/L Chloride Level 111 MEQ/L 108 MEQ/L Carbon Dioxide Level 23.1 MEQ/L 18.9 MEQ/L Anion Gap 13 MEQ/L 17 MEQ/L Estimat Glomerular Filtration Rate 19 ML/MIN 20 ML/MIN Total Protein 5.0 GM/DL Albumin 2.6 GM/DL Alkaline Phosphatase 69 U/L Aspartate Amino Transf (AST/SGOT) 65 U/L Alanine Aminotransferase (ALT/SGPT) 24 U/L Total Bilirubin 0.4 MG/DL Microbiology Date/Time Source Procedure Growth Status 12/26/17 12:45 Bronchial Washings Bronchial Fungal Smear - Final NO FUNGAL ELEMENTS SEEN. Resulted 12/26/17 12:45 Bronchial Washings Bronchial Fungal Culture Pending Resulted 12/26/17 12:45 Bronchial Washings Bronchial Acid Fast Stain Pending Received 12/26/17 12:45 Bronchial Washings Bronchial Mycobacterial Culture Pending Received 12/26/17 12:45 Bronchial Washings Bronchial Gram Stain - Final Resulted 12/26/17 12:45 Bronchial Washings Bronchial Bronchial Culture - Preliminary NO GROWTH IN 24 HOURS. Resulted Imaging Last Impressions Chest X-Ray 12/21/17 0600 Signed Impressions: Service Date/Time: Thursday, December 21, 2017 04:24 - CONCLUSION: Mild bibasilar consolidation and small left pleural effusion without significant change. Perry Neri MD Abdomen/Pelvis CT 12/20/17 0000 Signed Impressions: Service Date/Time: December 21:20 - CONCLUSION: Stable appearance to the CT abdomen/pelvis were compared to 11/26/17. Right double-J stent in place, multiple gallstones, left renal mass, left lateral ventral hernia. Dorian Vasquez MD Upper Extremity Ultrasound 12/13/17 0000 Signed Impressions: Service Date/Time: December 13:43 - CONCLUSION: 1. No deep venous thrombosis in the left upper extremity. 2. Superficial thrombosis of the right cephalic vein. El Nuñez MD Lower Extremity Ultrasound 12/13/17 0000 Signed Impressions: Service Date/Time: December 14:26 - CONCLUSION: Normal examination. Domingo Calderon MD Head CT 12/13/17 0000 Signed Impressions: Service Date/Time: December 13:30 - CONCLUSION: Normal examination. Domingo Calderon MD Physical Exam GENERAL: Sedated on the vent, NAD SKIN: Cool and dry. No generalized rash HEAD: Atraumatic. Normocephalic. No temporal wasting, or tenderness. EYES: [place] conjunctiva. No petechia or hemorrhage. Pupils equal, round and reactive to light. No scleral icterus. EARS, NOSE AND THROAT: Nose without bleeding or purulent nasal discharge. Orally intubated. NECK: Trachea midline. Supple and not tender, no meningeal signs CARDIOVASCULAR: Regular rate and rhythm. No murmurs, rubs or gallops heard RESPIRATORY: Decreased breath sounds L side, diffuse wheezing ABDOMEN: Soft, obese, no reaction to palpation, nondistended. Bowel sounds present and normoactive. EXTREMITIES: No clubbing, cyanosis. Has bilateral pedal edema. No calf tenderness. . NEUROLOGICAL: Sedated PSYCH: Unable to assess LINE: RIJ line looks ok Assessment & Plan Remarks IMPRESSION UTI, with Klebsiella Kleb MDR CRE ESBL+ Previous episode of complicated UTI,, has stent in place, had obstruction - CT A/P looks ok, stent in place, no hydro Known APOLONIA Respiratory failure, chronically on BIPAP mask - intubated today - CXR with white out L, due to plugging Obesity Renal insufficiency, chronic Allergy to PCN, tolerates Cephalosporins Hx C diff colitis - recent episode during last admission RECOMMENDATION Continue Avycaz to cover CRE GNR - plan 10 days - anticipate end date 12/30 Continue po Vanco, decrease dose to TID Follow bronch C/S Continue Diflucan Monitor progress Marely Plunkett MD Dec 27, 2017 12:42
--- NOTE | 2017-12-27 13:21 | HHI.NPPN ---
Subjective Complaints: Shortness of Breath Renal Failure: Acute Interval History Remains intubated, sedated. Had bronchoscopy yesterday. Review of Systems General General Remarks unable to obtain due to intubation. Cardiovascular Cardiac: Edema Objective Data Data Vital Signs Date Time Temp Pulse Resp B/P (MAP) Pulse Ox O2 Delivery O2 Flow Rate FiO2 12/27/17 12:00 45 12/27/17 12:00 101 12/27/17 12:00 97.6 100 16 120/76 (91) 100 12/27/17 11:00 100 12/27/17 11:00 100 16 118/64 (82) 100 12/27/17 10:57 98 100 12/27/17 10:50 99 45 12/27/17 10:00 92 12/27/17 10:00 92 16 154/79 (104) 100 12/27/17 09:00 99 19 123/60 (81) 100 12/27/17 09:00 99 12/27/17 08:00 45 12/27/17 08:00 97.4 107 22 131/80 (97) 78 12/27/17 08:00 99 12/27/17 07:18 100 45 12/27/17 07:00 93 12/27/17 07:00 108 16 140/62 (88) 100 12/27/17 06:00 92 12/27/17 04:09 100 45 12/27/17 04:00 96.7 99 16 95/64 (74) 100 12/27/17 04:00 99 12/27/17 04:00 45 12/27/17 02:00 101 12/27/17 00:15 100 45 12/27/17 00:00 96.4 97 16 109/60 (76) 100 12/27/17 00:00 97 12/27/17 00:00 45 12/26/17 22:00 98 12/26/17 21:09 100 45 12/26/17 20:00 79 12/26/17 20:00 96.3 79 16 121/56 (77) 100 12/26/17 20:00 45 12/26/17 18:00 81 12/26/17 17:31 88 16 109/63 (78) 100 12/26/17 17:00 81 16 109/67 (81) 100 12/26/17 17:00 80 12/26/17 16:49 100 45 12/26/17 16:31 83 16 122/73 (89) 100 12/26/17 16:00 71 12/26/17 16:00 97.4 67 110/56 (74) 100 12/26/17 16:00 50 12/26/17 15:31 72 104/57 (73) 100 12/26/17 15:00 71 12/26/17 15:00 69 99/57 (71) 100 12/26/17 14:31 73 100/57 (71) 100 12/26/17 14:15 100 50 12/26/17 14:00 82 16 103/63 (76) 100 12/26/17 14:00 84 12/26/17 13:34 100 50 12/26/17 13:31 79 110/69 (83) 100 -: 12/26/17 0533 12/27/17 0823 Imaging Last 72 hours Impressions Chest X-Ray 12/27/17 0000 Signed Impressions: Service Date/Time: December 07:54 - CONCLUSION: 1. Stable tubes and lines. 2. Improved aeration in the left upper lung zone with extensive residual airspace disease and volume loss in the left lung. Riccardo Stack MD Chest CT 12/27/17 0000 Signed Impressions: Service Date/Time: December 10:29 - CONCLUSION: 1. Basilar atelectasis and small pleural effusions, increased from November 26. Mild perihilar groundglass opacity present most characteristic of minimal pulmonary edema. 2. Support apparatus as above. Moderate coronary calcifications. Sachin Gonzalez MD Chest X-Ray 12/26/17 0000 Signed Impressions: Service Date/Time: Tuesday, December 26, 2017 13:19 - CONCLUSION: 1. There is atelectasis of the left lung with an unknown amount of pleural effusion. There is mediastinal shift from right to left. There is basilar dependent airspace disease in the right lung that is similar to December 26. Sachin Gonzalez MD Chest X-Ray 12/26/17 0000 Signed Impressions: Service Date/Time: Tuesday, December 26, 2017 08:41 - CONCLUSION: Endotracheal tube tip 2-3 cm above the makeda in good position. Persistent opacification left hemithorax. Worsening diffuse infiltrates consistent with probable severe pulmonary vascular congestion or pneumonia. Elvin Childs MD Chest X-Ray 12/26/17 0000 Signed Impressions: Service Date/Time: Tuesday, December 26, 2017 03:28 - CONCLUSION: Interval complete opacification of the left hemithorax with volume loss and shift of the mediastinal structures towards that side. This raises concern for mucous plugging of the left mainstem bronchus. Dorian Wilson Jr., MD Tubes & Lines: Garcia Tubes & Lines Comment TLC Drip Comment Lasix @ 10 mg/hr Physical Exam General Appearance: Well Developed, No Acute Distress, Sleeping, Obese Appearance Remarks intubated, unresponsive Throat Throat Exam: Oral Mucosa [place] & Moist Pulmonary Resp Exam: Decreased Bases, Diminished Breath Sounds Resp Remarks vented; wheezing on right; minimal air movement on left throughout entire lung field No SQ air noted Cardiology CV Exam: Good Perfusion, Irregular, Tachycardia Gastrointestinal/Abdomen GI Exam: Soft, Non-Tender, Bowel Sounds Present GI Remarks super morbidly obese Musculoskeletal MS Exam: Joints Intact, Unable to Ambulate Integumentary Skin Exam: Warm, Dry Extremeties Extremities Exam: Pedal Pulses Palpable, Moderate Edema, Dependent Edema Neurologic Neuro Exam: Unresponsive, Sedated Psychiatric Psych Exam: Appropriate Responses VTE Prophylaxis Device: SCDs Assessment/Plan Assessment Summary: FREDDY/Acute Renal Failure, Fluid/Volume Overload, Hypertension Problem List: (1) FREDDY (acute kidney injury) ICD Codes: N17.9 - Acute kidney failure, unspecified Plan: Her best creatinine at discharge was 1.2 FREDDY this admission is multifactorial: Elevated vancomycin levels suggest she my have suffered vancomycin induced nephrotoxicity May have suffered hypoperfusion injury, possibly ATN due to hypotension and sepsis. Additionally FREDDY may be related to UTI; and finally allergic interstitial nephritis must also be considered. Renal function is stable, slightly better Excellent response to diuresis. Continue Lasix gtt (10 mg/hr) and Diuril BID for now Repeat labs tomorrow. Continue to monitor urine output, has garcia currently. Replace K and Mag as needed. Avoid nephrotoxic agents, renally dose when appropriate. Consider stopping/holding Xarelto during FREDDY (2) Hypernatremia ICD Codes: E87.0 - Hyperosmolality and hypernatremia Plan: Improved Using Diuril Add free water via OG tube with tube feeding. (3) Respiratory failure ICD Codes: J96.90 - Respiratory failure, unspecified, unspecified whether with hypoxia or hypercapnia Plan: s/p intubation Had bronchoscopy yesterday with multiple mucous plugs identified and suctioned. Also has tracheomalacia and bronchomalacia pulmonary following Vent weening as tolerated, otherwise may need to address goals of care with the family. (4) Afib ICD Codes: I48.91 - Unspecified atrial fibrillation Status: Chronic Plan: rate improved. c On PO Cardizem and PO metoprolol (5) Anemia ICD Codes: D64.9 - Anemia, unspecified Plan: No evidence of iron deficiency Monitor hemoglobin (6) UTI (urinary tract infection) ICD Codes: N39.0 - Urinary tract infection, site not specified Plan: ID is following. She is on Avycaz and PO Diflucan. Contact precautions (7) Pneumonia ICD Codes: J18.9 - Pneumonia, unspecified organism Status: Acute Plan: See above. ID is following. On IV Avycaz. (8) C. difficile colitis ICD Codes: A04.72 - Enterocolitis due to Clostridium difficile, not specified as recurrent Plan: PO vancomycin Contact precautions. Problem Qualifiers (1) Afib: Qualified Codes: I48.2 - Chronic atrial fibrillation Suad Lucas Dec 27, 2017 13:21
[2017-12-27] MEDS: RESP: ACETYLCYSTEINE 20% 30 ML NEB NEB SCH (19:25)
[2017-12-28] VITALS (20 sets, daily range): BP systolic 90–106; BP diastolic 50–69; PULSE 86–106; RESP 14–17; TEMP 97.2–98.7; O2SAT 93–100
[2017-12-28] MEDS: RESP: ALBUTEROL 2.5 MG/IPRATROPIUM 0.5 MG NEB (SCH) NEB ×7 (00:16→23:32)
[2017-12-28] MEDS: RESP: ACETYLCYSTEINE 20% 30 ML NEB NEB SCH ×3 (00:17→07:44)
[2017-12-28] MEDS: CHLORHEXIDINE GLUCONATE 2 % 1 PACK (2 CLOTHS) TOP SCH (03:55)
[2017-12-28] MEDS: PROPOFOL 1000 MG/100 ML INJ 100 ML IV PRN ×2 (04:32→09:58)
[2017-12-28] MEDS: FREE WATER G-TUBE SCH ×3 (04:53→17:27)
--- NOTE | 2017-12-28 04:56 | RADRPT ---
EXAM DATE/TIME: 12/28/2017 03:36 [facility] COMPARISON: CHEST SINGLE AP, December 27, 2017, 7:54. INDICATIONS : Evaluate for respiratory disease. MEDICAL HISTORY : Hypertension. Diabetes mellitus type II, Cerebrovascular disease. SURGICAL HISTORY : Appendectomy. ENCOUNTER: Subsequent ACUITY: 1 month PAIN SCORE: Non-responsive. LOCATION: chest FINDINGS: A single view of the chest demonstrates improving aeration/resolving effusion in the right base with persistent left basilar consolidation/effusion. Heart size remains prominent. Life support tubes incl uding a right IJ central venous catheter, endotracheal and nasogastric tube are all stable in positio n. CONCLUSION: 1. Improving aeration in the right base with resolving consolidation/effusion. 2. Persistent left basilar consolidation/effusion with volume loss. 3. Stable cardiomegaly. Stable position of life support tubes. Jakob Plunkett MD on December 28, 2017 at 4:53 Board Certified Radiologist. This report was verified electronically.
[2017-12-28] MEDS: FUROSEMIDE INJ 100 MG in SODIUM CHLORIDE 0.9% INJ 90 ML IV SCH ×3 (05:34→16:30)
[2017-12-28] MEDS: DILTIAZEM HCL 60 MG TAB PO SCH ×4 (06:00→17:26)
[2017-12-28] MEDS: RESP: BUDESONIDE 0.5 MG/2 ML NEB NEB SCH ×2 (07:44→19:44)
[2017-12-28] MEDS: INSULIN NovoLIN REGULAR SUPPLEMENTAL SCALE SQ SCH ×3 (08:00→17:30)
[2017-12-28] MEDS: METOPROLOL TARTRATE 25 MG TAB PO SCH ×2 (09:00→21:00)
--- NOTE | 2017-12-28 09:06 | HHI.IDPN ---
Subjective Subjective Remarks Patient is a 67-year-old female, resides [facility], brought into the hospital after she was found unresponsive. She had a recent hospitalization where she was diagnosed to have sepsis related to complicated UTI. During that hospitalization she underwent stent placement. She also had C. difficile colitis during that admission. Patient states that she uses a BiPAP machine in the [facility] usually when she is sleeping. She is nonambulatory. Denies any significant cough or congestion. No chest pain. There was no mention of any fever or chills or sweats. When she also came to the hospital this time she was on pressors for hypotension. She improved clinically and her hemodynamics stabilize. However yesterday she went hypotensive again, an infectious disease consultation has been requested to evaluate the patient. Notes reviewed Temps ok On the vent BP ok Bronch C/S negative CXR with some aeration in upper field Sedated UO has increased CT chest with increased atelectasis, only with small effusions Antibiotics Avycaz PO Vanco Diflucan Current Medications Medications (Trade) Dose Ordered Sig/Mirta Route Start Time Stop Time Status Last Admin (NS Flush) 2 ml UNSCH PRN IV FLUSH 12/13/17 13:30 (NS Flush) 2 ml BID IV FLUSH 12/13/17 21:00 12/27/17 20:16 (Tylenol) 650 mg Q6H PRN PO 12/13/17 13:30 12/14/17 09:42 (Protonix) 40 mg DAILY PO 12/14/17 09:00 12/27/17 07:51 (Zofran Inj) 4 mg Q6H PRN IV PUSH 12/13/17 13:30 Miscellaneous Information 1 Q361D XX 12/13/17 13:30 12/13/17 13:30 (Chlorhexidine 2% Cloth) Taper DAILY@04 TOP 12/14/17 04:00 12/10/18 03:59 12/26/17 04:00 (Chlorhexidine 2% Cloth) 3 pack UNSCH PRN TOP 12/13/17 13:30 (Zelda-Colace) 1 tab BID PO 12/13/17 21:00 12/27/17 20:15 (Milk Of Magnesia Liq) 30 ml Q12H PRN PO 12/13/17 13:30 (Senokot) 17.2 mg Q12H PRN PO 12/13/17 13:30 (Dulcolax Supp) 10 mg DAILY PRN RECTAL 12/13/17 13:30 (Lactulose Liq) 30 ml DAILY PRN PO 12/13/17 13:30 (Xanax) 1 mg BID PRN PO 12/13/17 13:30 (Pulmicort Respule Neb) 0.5 mg Q12HR NEB NEB 12/13/17 20:00 12/28/17 07:44 (Lyrica) 75 mg DAILY PO 12/14/17 09:00 12/27/17 07:51 (Zoloft) 100 mg DAILY PO 12/14/17 09:00 12/27/17 07:51 (Vitamin C) 500 mg BID PO 12/13/17 21:00 12/27/17 20:15 (Lactinex) 1 tab TID PO 12/13/17 18:00 12/27/17 17:53 (D50w (Vial) Inj) 50 ml UNSCH PRN IV PUSH 12/13/17 13:30 12/19/17 22:25 (Glucagon Inj) 1 mg UNSCH PRN OTHER 12/13/17 13:30 (NovoLIN R SUPPLEMENTAL SCALE) 1 ACHS SLIDING SCALE SQ 12/13/17 17:00 12/14/17 17:00 (Pill Splitter) 1 ea UNSCH PRN OTHER 12/13/17 13:30 (Xarelto) 10 mg DAILY PO 12/14/17 09:00 12/27/17 07:52 (Mycostatin Powder) 1 applic Q12HR TOPICAL 12/13/17 21:00 12/27/17 20:16 (Trandate Inj) 10 mg Q1HR PRN IV PUSH 12/13/17 17:00 (Nitroglycerin 2% Oint) 2 inch Q6HR PRN TOPICAL 12/13/17 18:00 (Apresoline Inj) 10 mg Q1HR PRN IV PUSH 12/13/17 17:00 (Brethine Inj) 1 mg UNSCH PRN SQ 12/15/17 10:15 (Bactroban Nasal 2% Oint) Taper BID EACH NARE 12/15/17 21:00 12/11/18 20:59 12/27/17 20:15 Ceftazidime/ Avibactam 0.94 gm/ Sodium Chloride 50 ml @ 25 mls/hr Q12HR IV 12/20/17 13:00 12/27/17 20:15 (Duoneb Neb) 1 ampule Q2HR NEB PRN NEB 12/23/17 09:45 (Cardizem) 60 mg Q6HR PO 12/24/17 12:00 12/27/17 17:53 (Lopressor) 100 mg Q12HR PO 12/24/17 21:00 12/27/17 07:52 Furosemide 100 mg/ Sodium Chloride 100 ml @ 10 mls/hr CONTINUOUS IV 12/24/17 17:00 12/28/17 05:34 (Deltasone) 20 mg BID PO 12/24/17 21:00 12/27/17 20:15 (Diuril Inj) 250 mg BID IV 12/25/17 11:00 12/27/17 20:15 (Vancomycin 25 Mg/ml Liq) 125 mg TID PO 12/25/17 13:00 12/27/17 17:53 (Peridex 0.12% Liq) 15 ml BID@08,20 MT 12/26/17 20:00 12/27/17 20:17 Propofol 100 ml @ 4.176 mls/ hr TITRATE PRN IV 12/26/17 09:00 12/28/17 04:32 (Diflucan) 100 mg Q24H PO 12/26/17 10:00 12/27/17 09:30 (Free Water) VOLUME: 300 ML Q6HR G-TUBE 12/26/17 12:00 12/28/17 04:53 (Duoneb Neb) 1 ampule Q4HR NEB NEB 12/27/17 12:00 12/28/17 07:44 (Mucomyst 20% Neb) 2 ml Q4HR NEB NEB 12/27/17 12:00 12/30/17 11:59 12/28/17 07:44 Lines RIJ TLC Past Medical History Chronic respiratory failure secondary to APOLONIA, OHS and bronchial asthma Atrial fibrillation rate controlled Hypertension Dyslipidemia Gastroesophageal reflux disease Elevated BMI greater than 50 Recurrent MRSA pneumonia Depression Constipation Past Surgical History JJ stent placement by urology Hiatal hernia surgery Appendectomy Percutaneous tracheostomy by Dr. Mullins since decannulated Allergies: Coded Allergies: penicillin G (Unverified Allergy, Severe, 05/29/17) Objective . Vital Signs Date Time Temp Pulse Resp B/P (MAP) Pulse Ox O2 Delivery O2 Flow Rate FiO2 12/28/17 07:38 100 30 12/28/17 06:00 91 12/28/17 04:00 97.9 100 16 90/56 (67) 93 12/28/17 04:00 35 12/28/17 04:00 100 12/28/17 03:30 100 30 12/28/17 02:00 86 12/28/17 00:20 100 30 12/28/17 00:00 88 12/28/17 00:00 35 12/28/17 00:00 97.9 88 16 94/69 (77) 100 12/27/17 22:18 100 35 12/27/17 22:00 79 12/27/17 20:00 97.4 87 16 101/60 (74) 100 12/27/17 20:00 40 12/27/17 20:00 87 12/27/17 19:20 100 40 12/27/17 18:00 109 12/27/17 17:00 94 12/27/17 17:00 96 16 119/56 (77) 100 12/27/17 16:00 100 12/27/17 16:00 97.4 100 17 96/73 (81) 100 12/27/17 16:00 45 12/27/17 15:00 91 16 96/60 (72) 100 12/27/17 15:00 91 12/27/17 14:36 100 40 12/27/17 14:00 85 12/27/17 14:00 85 16 96/57 (70) 100 12/27/17 13:00 89 12/27/17 13:00 89 16 98/65 (76) 100 12/27/17 12:00 45 12/27/17 12:00 101 12/27/17 12:00 97.6 100 16 120/76 (91) 100 12/27/17 11:00 100 12/27/17 11:00 100 16 118/64 (82) 100 12/27/17 10:57 98 100 12/27/17 10:50 99 45 12/27/17 10:00 92 12/27/17 10:00 92 16 154/79 (104) 100 . Laboratory Tests Test 3/15/18 08:23 12/28/17 05:10 Blood Urea Nitrogen 35 MG/DL MG/DL Creatinine 2.42 MG/DL MG/DL Random Glucose 91 MG/DL MG/DL Total Protein 5.0 GM/DL GM/DL Albumin 2.6 GM/DL GM/DL Calcium Level 8.0 MG/DL MG/DL Alkaline Phosphatase 69 U/L U/L Aspartate Amino Transf (AST/SGOT) 65 U/L U/L Alanine Aminotransferase (ALT/SGPT) 24 U/L Total Bilirubin 0.4 MG/DL MG/DL Sodium Level 144 MEQ/L MEQ/L Potassium Level 3.8 MEQ/L MEQ/L Chloride Level 108 MEQ/L MEQ/L Carbon Dioxide Level 18.9 MEQ/L MEQ/L Anion Gap 17 MEQ/L MEQ/L Estimat Glomerular Filtration Rate 20 ML/MIN ML/MIN Magnesium Level MG/DL Microbiology Date/Time Source Procedure Growth Status 12/26/17 12:45 Bronchial Washings Bronchial Fungal Smear - Final NO FUNGAL ELEMENTS SEEN. Resulted 12/26/17 12:45 Bronchial Washings Bronchial Fungal Culture Pending Resulted 12/26/17 12:45 Bronchial Washings Bronchial Acid Fast Stain Pending Received 12/26/17 12:45 Bronchial Washings Bronchial Mycobacterial Culture Pending Received 12/26/17 12:45 Bronchial Washings Bronchial Gram Stain - Final Resulted 12/26/17 12:45 Bronchial Washings Bronchial Bronchial Culture - Preliminary NO GROWTH IN 24 HOURS. Resulted Imaging Chest X-Ray 12/28/17 0600 Signed Impressions: Service Date/Time: Thursday, December 28, 2017 03:36 - CONCLUSION: 1. Improving aeration in the right base with resolving consolidation/effusion. 2. Persistent left basilar consolidation/effusion with volume loss. 3. Stable cardiomegaly. Stable position of life support tubes. Jakob Plunkett MD Chest X-Ray 12/27/17 0000 Signed Impressions: Service Date/Time: December 07:54 - CONCLUSION: 1. Stable tubes and lines. 2. Improved aeration in the left upper lung zone with extensive residual airspace disease and volume loss in the left lung. Riccardo Stack MD Chest CT 12/27/17 0000 Signed Impressions: Service Date/Time: December 10:29 - CONCLUSION: 1. Basilar atelectasis and small pleural effusions, increased from November 26. Mild perihilar groundglass opacity present most characteristic of minimal pulmonary edema. 2. Support apparatus as above. Moderate coronary calcifications. Sachin Gonzalez MD Chest X-Ray 12/26/17 0000 Signed Impressions: Service Date/Time: Tuesday, December 26, 2017 13:19 - CONCLUSION: 1. There is atelectasis of the left lung with an unknown amount of pleural effusion. There is mediastinal shift from right to left. There is basilar dependent airspace disease in the right lung that is similar to December 26. Sachin Gonzalez MD Chest X-Ray 12/26/17 0000 Signed Impressions: Service Date/Time: Tuesday, December 26, 2017 08:41 - CONCLUSION: Endotracheal tube tip 2-3 cm above the makeda in good position. Persistent opacification left hemithorax. Worsening diffuse infiltrates consistent with probable severe pulmonary vascular congestion or pneumonia. Elvin Childs MD Chest X-Ray 12/26/17 0000 Signed Impressions: Service Date/Time: Tuesday, December 26, 2017 03:28 - CONCLUSION: Interval complete opacification of the left hemithorax with volume loss and shift of the mediastinal structures towards that side. This raises concern for mucous plugging of the left mainstem bronchus. Dorian Wilson Jr., MD Chest X-Ray 12/21/17 0600 Signed Impressions: Service Date/Time: Thursday, December 21, 2017 04:24 - CONCLUSION: Mild bibasilar consolidation and small left pleural effusion without significant change. Perry Neri MD Abdomen/Pelvis CT 12/20/17 0000 Signed Impressions: Service Date/Time: December 21:20 - CONCLUSION: Stable appearance to the CT abdomen/pelvis were compared to 11/26/17. Right double-J stent in place, multiple gallstones, left renal mass, left lateral ventral hernia. Dorian Vasquez MD Upper Extremity Ultrasound 12/13/17 0000 Signed Impressions: Service Date/Time: December 13:43 - CONCLUSION: 1. No deep venous thrombosis in the left upper extremity. 2. Superficial thrombosis of the right cephalic vein. El Nuñez MD Lower Extremity Ultrasound 12/13/17 0000 Signed Impressions: Service Date/Time: December 14:26 - CONCLUSION: Normal examination. Domingo Calderon MD Head CT 12/13/17 0000 Signed Impressions: Service Date/Time: December 13:30 - CONCLUSION: Normal examination. Domingo Calderon MD Physical Exam GENERAL: Sedated on the vent, NAD SKIN: Cool and dry. No generalized rash HEAD: Atraumatic. Normocephalic. No temporal wasting, or tenderness. EYES: Omega conjunctiva. No petechia or hemorrhage. Pupils equal, round and reactive to light. No scleral icterus. EARS, NOSE AND THROAT: Nose without bleeding or purulent nasal discharge. Orally intubated. NECK: Trachea midline. Supple and not tender, no meningeal signs CARDIOVASCULAR: Regular rate and rhythm. No murmurs, rubs or gallops heard RESPIRATORY: Decreased breath sounds L side, diffuse wheezing ABDOMEN: Soft, obese, no reaction to palpation, nondistended. Bowel sounds present and normoactive. EXTREMITIES: No clubbing, cyanosis. Has bilateral pedal edema. No calf tenderness. . NEUROLOGICAL: Sedated PSYCH: Unable to assess LINE: RIJ line looks ok Assessment & Plan Remarks IMPRESSION UTI, with Klebsiella Kleb MDR CRE ESBL+ Previous episode of complicated UTI,, has stent in place, had obstruction - CT A/P looks ok, stent in place, no hydro Known APOLONIA Respiratory failure, chronically on BIPAP mask - CXR with white out L, due to plugging, atelectasis - ?PNA Obesity Renal insufficiency, chronic Allergy to PCN, tolerates Cephalosporins Hx C diff colitis - recent episode during last admission RECOMMENDATION Continue Avycaz to cover CRE GNR Continue po Vanco, decrease dose to TID Follow bronch C/S Continue Diflucan - give [address] Gomez covering this weekend Marely Plunkett MD Dec 28, 2017 09:06
[2017-12-28] MEDS: SERTRALINE HCL 100 MG TAB PO SCH (09:53)
[2017-12-28] MEDS: LACTOBACILLUS ACIDOPHILUS TAB PO SCH ×3 (09:53→17:26)
[2017-12-28] MEDS: PREGABALIN 75 MG CAP PO SCH (09:53)
[2017-12-28] MEDS: FLUCONAZOLE 100 MG TAB PO SCH (09:53)
[2017-12-28] MEDS: PANTOPRAZOLE SOD 40 MG DELAYED RELEASE TAB PO SCH (09:54)
[2017-12-28] MEDS: ASCORBIC ACID 500 MG TAB PO SCH ×2 (09:54→20:58)
[2017-12-28] MEDS: predniSONE 20 MG TAB PO SCH ×2 (09:54→20:58)
[2017-12-28] MEDS: DOCUSATE SODIUM 50 MG/SENNA 8.6 MG TAB PO SCH ×2 (09:54→20:58)
[2017-12-28] MEDS: RIVAROXABAN 10 MG TAB PO SCH (09:54)
[2017-12-28] MEDS: SODIUM CHLORIDE 0.9% FLUSH 10 ML FLUSH IV FLUSH SCH ×2 (09:54→21:00)
[2017-12-28] MEDS: CHLOROTHIAZIDE SOD 500 MG VIAL IV SCH (09:55)
[2017-12-28] MEDS: MUPIROCIN 2% OINT 1 APPLIC/GM SYR EACH NARE SCH ×2 (09:55→20:58)
[2017-12-28] MEDS: CHLORHEXIDINE 0.12% (ORAL KIT) 15 ML CUP MT SCH ×2 (09:56→20:00)
[2017-12-28] MEDS: NYSTATIN 100,000 U/GM PWD 15 GM BTL TOPICAL SCH ×2 (10:04→21:01)
--- NOTE | 2017-12-28 10:05 | HHI.NPPN ---
Subjective Complaints: Shortness of Breath Renal Failure: Acute Interval History Remains unresponsive on the vent. On 30% FiO2. Excellent urine output. Labs were recollected and are not available for review at this time. (Suad Lucas) Review of Systems General General Remarks unable to obtain due to intubation. (Suad Lucas) Cardiovascular Cardiac: Edema (Suad Lucas) Objective Data Data Vital Signs Date Time Temp Pulse Resp B/P (MAP) Pulse Ox O2 Delivery O2 Flow Rate FiO2 12/28/17 07:38 100 30 12/28/17 06:00 91 12/28/17 04:00 97.9 100 16 90/56 (67) 93 12/28/17 04:00 35 12/28/17 04:00 100 12/28/17 03:30 100 30 12/28/17 02:00 86 12/28/17 00:20 100 30 12/28/17 00:00 88 12/28/17 00:00 35 12/28/17 00:00 97.9 88 16 94/69 (77) 100 12/27/17 22:18 100 35 12/27/17 22:00 79 12/27/17 20:00 97.4 87 16 101/60 (74) 100 12/27/17 20:00 40 12/27/17 20:00 87 12/27/17 19:20 100 40 12/27/17 18:00 109 12/27/17 17:00 94 12/27/17 17:00 96 16 119/56 (77) 100 12/27/17 16:00 100 12/27/17 16:00 97.4 100 17 96/73 (81) 100 12/27/17 16:00 45 12/27/17 15:00 91 16 96/60 (72) 100 12/27/17 15:00 91 12/27/17 14:36 100 40 12/27/17 14:00 85 12/27/17 14:00 85 16 96/57 (70) 100 12/27/17 13:00 89 12/27/17 13:00 89 16 98/65 (76) 100 12/27/17 12:00 45 12/27/17 12:00 101 12/27/17 12:00 97.6 100 16 120/76 (91) 100 12/27/17 11:00 100 12/27/17 11:00 100 16 118/64 (82) 100 12/27/17 10:57 98 100 12/27/17 10:50 99 45 12/27/17 10:00 92 12/27/17 10:00 92 16 154/79 (104) 100 (Suad LucasP) -: 12/26/17 0533 Imaging Last 72 hours Impressions Chest X-Ray 12/28/17 0600 Signed Impressions: Service Date/Time: Thursday, December 28, 2017 03:36 - CONCLUSION: 1. Improving aeration in the right base with resolving consolidation/effusion. 2. Persistent left basilar consolidation/effusion with volume loss. 3. Stable cardiomegaly. Stable position of life support tubes. Jakob Plunkett MD Chest X-Ray 12/27/17 0000 Signed Impressions: Service Date/Time: December 07:54 - CONCLUSION: 1. Stable tubes and lines. 2. Improved aeration in the left upper lung zone with extensive residual airspace disease and volume loss in the left lung. Riccardo Stack MD Chest CT 12/27/17 0000 Signed Impressions: Service Date/Time: December 10:29 - CONCLUSION: 1. Basilar atelectasis and small pleural effusions, increased from November 26. Mild perihilar groundglass opacity present most characteristic of minimal pulmonary edema. 2. Support apparatus as above. Moderate coronary calcifications. Sachin Gonzalez MD Chest X-Ray 12/26/17 0000 Signed Impressions: Service Date/Time: Tuesday, December 26, 2017 13:19 - CONCLUSION: 1. There is atelectasis of the left lung with an unknown amount of pleural effusion. There is mediastinal shift from right to left. There is basilar dependent airspace disease in the right lung that is similar to December 26. Sachin Gonzalez MD Chest X-Ray 12/26/17 0000 Signed Impressions: Service Date/Time: Tuesday, December 26, 2017 08:41 - CONCLUSION: Endotracheal tube tip 2-3 cm above the makeda in good position. Persistent opacification left hemithorax. Worsening diffuse infiltrates consistent with probable severe pulmonary vascular congestion or pneumonia. Elvin Childs MD Chest X-Ray 12/26/17 0000 Signed Impressions: Service Date/Time: Tuesday, December 26, 2017 03:28 - CONCLUSION: Interval complete opacification of the left hemithorax with volume loss and shift of the mediastinal structures towards that side. This raises concern for mucous plugging of the left mainstem bronchus. Dorian Wilson Jr., MD Tubes & Lines: Garcia Tubes & Lines Comment TLC Drip Comment Lasix @ 10 mg/hr, Propofol (Suad Lucas) Physical Exam General Appearance: Well Developed, No Acute Distress, Sleeping, Obese Appearance Remarks intubated, unresponsive (Suad Lucas) Throat Throat Exam: Oral Mucosa [place] & Moist (Suad Lucas) Pulmonary Resp Exam: Breath Sounds Equal, Rhonchi, Decreased Bases, Diminished Breath Sounds Resp Remarks vented; diminished in bases; rales scattered. (Suad LucasP) Cardiology CV Exam: Good Perfusion, Irregular, Tachycardia (Suad LucasP) Gastrointestinal/Abdomen GI Exam: Soft, Non-Tender, Bowel Sounds Present GI Remarks super morbidly obese (Suad Lucas) Musculoskeletal MS Exam: Joints Intact, Unable to Ambulate (Suad Lucas) Integumentary Skin Exam: Warm, Dry (Suad Lucas PNEUMATIC TUBE FITTER) Extremeties Extremities Exam: Pedal Pulses Palpable, Moderate Edema, Dependent Edema (Suad Lucas PNEUMATIC TUBE FITTER) Neurologic Neuro Exam: Unresponsive, Sedated (Suad Lucas PNEUMATIC TUBE FITTER) Psychiatric Psych Exam: Appropriate Responses (Suad Lucas) VTE Prophylaxis Device: SCDs (Suad Lucas BQuoc GUIDRY) Assessment/Plan Assessment Summary: FREDDY/Acute Renal Failure, Fluid/Volume Overload, Hypertension Problem List: (1) FREDDY (acute kidney injury) ICD Codes: N17.9 - Acute kidney failure, unspecified Plan: Her best creatinine at discharge was 1.2 Elevated vancomycin levels suggest she my have suffered vancomycin induced nephrotoxicity May have suffered hypoperfusion injury, possibly ATN due to hypotension and sepsis. She also has UTI. Repeat labs are in process. Excellent response to diuresis. Continue Lasix gtt (10 mg/hr) Stop Diuril Continue to monitor urine output, has garcia currently. Replace K and Mag as needed. Avoid nephrotoxic agents, renally dose when appropriate. Avoid hypotension, not on pressors Depending on lab results may stop Lasix gtt and change to intermittent, will follow up on results. (2) Hypernatremia ICD Codes: E87.0 - Hyperosmolality and hypernatremia Plan: Had been improving, repeat labs in process On free water with tube feeding Repeat labs (3) Respiratory failure ICD Codes: J96.90 - Respiratory failure, unspecified, unspecified whether with hypoxia or hypercapnia Plan: s/p intubation s/p bronchoscopy with multiple mucous plugs identified and suctioned. Also has tracheomalacia and bronchomalacia pulmonary following Vent weening as tolerated, otherwise may need to address goals of care with the family. On Oral prednisone (4) UTI (urinary tract infection) ICD Codes: N39.0 - Urinary tract infection, site not specified Plan: ID is following. She is on Avycaz and PO Diflucan. Has MDRO Klebsiella Sp. Contact precautions (5) Pneumonia ICD Codes: J18.9 - Pneumonia, unspecified organism Status: Acute Plan: See above. ID is following. On IV Avycaz. (6) C. difficile colitis ICD Codes: A04.72 - Enterocolitis due to Clostridium difficile, not specified as recurrent Plan: PO vancomycin Contact precautions. (7) Anemia ICD Codes: D64.9 - Anemia, unspecified Plan: No evidence of iron deficiency Monitor hemoglobin (8) Afib ICD Codes: I48.91 - Unspecified atrial fibrillation Status: Chronic Plan: rate improved. c On PO Cardizem and PO metoprolol (Suad Lucas) Plan patient was seen and examined. Excellent urine output. Renal function noted: no change in the past few days. Continue Lasix drip. CT findings are noted. s/p bronchoscopy on , only marginal improvement. Prognosis is guarded. (Mohinder Lopez MD) Problem Qualifiers (1) Afib: Qualified Codes: I48.2 - Chronic atrial fibrillation Suad Lucas Dec 28, 2017 10:05 Mohinder Lopez MD Dec 28, 2017 16:49
[2017-12-28] MEDS: cefTAZidime/AVIBACTAM INJ 0.94 GM in SODIUM CHLORIDE 0.9% INJ 50 ML IV SCH ×2 (10:10→20:57)
[2017-12-28] MEDS: VANCOMYCIN 25 MG/ML SOLN 100 ML BOTTLE PO SCH ×3 (10:15→17:26)
[2017-12-28 10:29] LABS: CREATININE 2.43 MG/DL (0.50-1.00); GLOMERULAR FILTRATION RATE 20 ML/MIN (>89); GLUCOSE,RANDOM 86 MG/DL (74-106)
[2017-12-28 10:30] LABS: ALBUMIN 2.2 GM/DL (3.4-5.0); CALCIUM 7.9 MG/DL (8.5-10.1)
[2017-12-28 10:31] LABS: ALKALINE PHOSPHATASE 75 U/L (45-117); ALT (GPT) 22 U/L (10-53); AST (GOT) 42 U/L (15-37); BASOPHIL % 0.4 % (0.0-2.0); EOSINOPHIL % 0.1 % (0.0-4.0); HEMOGLOBIN 8.9 GM/DL (11.6-15.3); LYMPH % 7.7 % (9.0-44.0); LYMPHOCYTE # 0.8 TH/MM3 (1.0-4.8); MAGNESIUM 1.5 MG/DL (1.5-2.5); MEAN CELL VOLUME 91.6 FL (80.0-100.0); MEAN CORPUSCULAR HEMOGLOBIN 30.1 PG (27.0-34.0); MEAN CORPUSCULAR HGB CONC 32.9 % (32.0-36.0); MEAN PLATELET VOLUME 9.2 FL (7.0-11.0); MONO % 5.3 % (0.0-8.0); MONOCYTE # 0.5 TH/MM3 (0-0.9); NEUT % 86.5 % (16.0-70.0); PLATELET COUNT 186 TH/MM3 (150-450); RED BLOOD COUNT 2.94 MIL/MM3 (4.00-5.30); RED CELL DISTRIBUTION WIDTH 18.2 % (11.6-17.2); WHITE BLOOD COUNT 10.3 TH/MM3 (4.0-11.0)
[2017-12-28 10:32] LABS: SODIUM (NA) 139 MEQ/L (136-145); TOTAL BILIRUBIN ADULT 0.5 MG/DL (0.2-1.0)
[2017-12-28 10:33] LABS: BICARBONATE 16.2 MEQ/L (21.0-32.0); CHLORIDE 106 MEQ/L (98-107)
[2017-12-28 10:38] LABS: BLOOD UREA NITROGEN 34 MG/DL (7-18)
[2017-12-28 11:04] LABS: CORRECTED NUCLEATED RBC 1 /100 WBC (0-0); LYMPHOCYTES 16 % (9-44); METAMYELOCYTES 1 % (0-1); MONOCYTES 4 % (0-8); MYELOCYTES 3 % (0-0); NEUTROPHIL # MANUAL DIFF 8.2 TH/MM3 (1.8-7.7); NUCLEATED RED BLOOD CELL 1 (0-0); POLYS (SEG NEUTROPHILS) 76 % (16-70)
--- NOTE | 2017-12-28 11:34 | HHI.CCPN ---
Subjective Remarks/Hospital Course This is a 67-year-old female. Date of admission 12/13/2017. Past medical history includes elevated BMI, chronic asthma on chronic oxygen, atrial fibrillation/rate controlled, hypertension dyslipidemia. Today, patient presents to [facility] emergency department after being found unresponsive at the [facility]. She was just discharged from the hospital 12/10/2017 from [facility]. She is morbidly obese with multiple severe chronic illnesses and was both in respiratory distress and decreased responsiveness at the same time. She was noted to be hypoxic with saturations in the e 80s with nasal cannula. Was brought in on BiPAP. Accu-Chek was in the 30s when paramedics found her. Initial GCS was reported as 3. She received some D10 through a right arm PICC line but upon arrival staff felt that the PICC line was not working properly. Patient cannot provide any history or review of systems. She arrives critically ill Patient received D50 and a central line in the right internal jugular was placed by ED physician as no significant access was available. Chest x-ray revealed no acute cardiopulmonary findings. After being placed on BiPAP and receiving glucose patient's mentation is much improved and likely can be removed in the ICU. Less confused when evaluated in the ED. UA is positive. Previous history of Pseudomonas sensitive to aztreonam 12/14: Currently resting in bed in no acute distress on 3 L nasal cannula. Overnight on BiPAP/Venturi mask currently on 3 L nasal cannula. Difficult to arouse but once arousable does follow commands in all 4 extremities but weakly. Blood sugar 135. ABG currently pending 12/15: Afebrile. Resting in bed on nasal cannula. Arousable and following commands. Ill-definition due to hypo-tension. I will place arterial line secondary to body habitus. She does not appear septic. She is more awake and alert and attentive today as compared to yesterday. 12/16: Alert and oriented 3, responding to questions appropriately. Arterial line inability to play secondary to body habitus. Patient remained on phenylephrine during the night but now map remains less than 60 will resume phenylephrine infusion, and initiate Midodrine. 12/17: Hemodynamically stable. Phenylephrine infusion off since last night. MAP 80's. Patient alert and oriented, tolerating diet/breakfast. 12/18: Late entry note. Hemodynamically stable. Decrease FiO2 requirements currently on 2 L nasal cannula O2 saturation 97-98 %. RECONSULT 12/19: Patient became hemodynamically unstable this afternoon requiring reinitiation of phenylephrine infusion currently at 70 mcgs/minute. 12/20: Patient became somnolent last evening noted respiratory acidosis around 2 AM. Patient placed back on BiPAP. ID has been consulted for MDR Klebsiella. Patient awake and alert this afternoon, and denies pain. 12/21: Respiratory status much improved, and to remain on BiPAP at night while sleeping. ABGs improved. Patient hemodynamically stable no vasopressor requirements at this time. IV fluids discontinued. Patient tolerating a diet. 12/22: Patient remains a respiratory acidosis, slightly more lethargic today. Patient placed on BiPAP with exception of meals today. Repeat ABG pending this afternoon 12/23: ABG's and neuro status unchanged. Patient remains on BiPAP with exception of meals. Repeat ABG pending this afternoon. Ammonia level ordered. 12/24 Patient is on BIPAP 15/ with 40% . In Afib with RVR 12/25 No events overnight. Remains on BIPAP. Started on Lasix drip per renal 20mg /hr 12/26: Patient remains on BiPAP lethargic. Air entry is diminished on the left side. Chest x-ray shows complete whiteout on the left side with mediastinal shift to the left indicating mucus plugging and left lung collapse. Will proceed with emergency intubation and bronchoscopy (I discussed with Dr. Baca -he will do bronchoscopy at 11:30 AM today) 12/27: Intubated yesterday for severe left lung atelectasis. Underwent bronchoscopy by Dr. Baca. Bronchoscopy showed tracheomalacia and bronchomalacia involving right mainstem bronchi, left mainstem and left upper lobe bronchi. Significant thick mucoid secretions in right upper lobe bronchi, left upper bronchus and also left lower lobe. Moderate endobronchitis. Chest x -ray shows moderate improvement in left upper lobe but persistent dense consolidation middle and lower lung zones. Check CT of the chest stat today Subjective 12/28: Afebrile. FiO2 at 30% awake alert and awake. Plan extubation today passes parameters.. Objective Vital Signs Date Time Temp Pulse Resp B/P (MAP) Pulse Ox O2 Delivery O2 Flow Rate FiO2 12/28/17 07:38 100 30 12/28/17 06:00 91 12/28/17 04:00 97.9 16 90/56 (67) 12/25/17 20:15 Nasal Cannula 3.00 Intake and Output 12/28/17 12/28/17 12/29/17 08:00 16:00 00:00 Intake Total 1016 ml Output Total 1250 ml Balance -234 ml Result Diagram: 12/28/17 0824 12/28/17 0824 Other Results Microbiology Date/Time Source Procedure Growth Status 12/20/17 12:13 Blood Peripheral Aerobic Blood Culture - Final [place] Spp Complete 12/20/17 12:13 Blood Peripheral Anaerobic Blood Culture - Final NO GROWTH IN 5 DAYS Complete 12/26/17 12:45 Bronchial Washings Bronchial Fungal Smear - Final NO FUNGAL ELEMENTS SEEN. Resulted 12/26/17 12:45 Bronchial Washings Bronchial Fungal Culture Pending Resulted 12/21/17 00:00 Urine Clean Catch Urine Culture - Final 50-100,000 CFU/ML MIXED BERNA... Complete Imaging Last Impressions Chest X-Ray 12/28/17 0600 Signed Impressions: Service Date/Time: Thursday, December 28, 2017 03:36 - CONCLUSION: 1. Improving aeration in the right base with resolving consolidation/effusion. 2. Persistent left basilar consolidation/effusion with volume loss. 3. Stable cardiomegaly. Stable position of life support tubes. Jakob Plunkett MD Chest CT 12/27/17 0000 Signed Impressions: Service Date/Time: December 10:29 - CONCLUSION: 1. Basilar atelectasis and small pleural effusions, increased from November 26. Mild perihilar groundglass opacity present most characteristic of minimal pulmonary edema. 2. Support apparatus as above. Moderate coronary calcifications. Sachin Gonzalez MD Abdomen/Pelvis CT 12/20/17 0000 Signed Impressions: Service Date/Time: December 21:20 - CONCLUSION: Stable appearance to the CT abdomen/pelvis were compared to 11/26/17. Right double-J stent in place, multiple gallstones, left renal mass, left lateral ventral hernia. Dorian Vasquez MD Upper Extremity Ultrasound 12/13/17 0000 Signed Impressions: Service Date/Time: December 13:43 - CONCLUSION: 1. No deep venous thrombosis in the left upper extremity. 2. Superficial thrombosis of the right cephalic vein. El Nuñez MD Lower Extremity Ultrasound 12/13/17 0000 Signed Impressions: Service Date/Time: December 14:26 - CONCLUSION: Normal examination. Domingo Calderon MD Head CT 12/13/17 0000 Signed Impressions: Service Date/Time: December 13:30 - CONCLUSION: Normal examination. Domingo Calderon MD Objective Remarks GENERAL: 67-year-old female resting in bed in no acute distress SKIN: Warm and dry. No rash HEAD: Atraumatic. Normocephalic. EYES: Pupils equal and round about 3 mm bilaterally and reactive. No scleral icterus. No injection or drainage. ENT: No nasal bleeding or discharge. Orotracheally intubated NECK: Trachea midline. No JVD. Right IJ is clean dry and intact CARDIOVASCULAR: IRR. Distant heart tones. S1, S2. No S4. Without murmur RESPIRATORY: Diminished breath sounds throughout, but particularly absent in the left lower lung west. GASTROINTESTINAL: Abdomen soft, obese, nontender. Hypoactive bowel sounds are appreciated MUSCULOSKELETAL: Extremities with 2+ bilateral upper and lower extremity edema NEUROLOGICAL: Cranial nerves II through XII grossly intact motor grossly within normal limits. Urinary Catheter: Yes Assessment to: Continue Solitario insert reason: Prolonged Immobilization Vascular Central Line Catheter: Yes Assessment to: Continue Date of Insertion: Dec 13, 2017 Line: Central Venous Catheter Side: Right Location: Internal, Jugular A/P Assessment and Plan Neuro/Psych: Acute toxic metabolic encephalopathy likely secondary to hypoglycemia/CO2 retention Chronic benzodiazepine use Depression disorder NOS Diabetic neuropathy Chronic pain syndrome with chronic narcotic use Use propofol at 25 mcg/kg/min, fentanyl 100 mg an hour for sedation after intubation Goal of RASS -2 Daily sedation vacation Holding hydrocodone/acetaminophen 5/325 1 tablet every 6 hours as needed pain Continue sertraline 100 mg p.o. daily for depression Continue pregabalin 75 mg p.o. daily for peripheral neuropathy CT brain 12/13 revealed no acute intracranial findings Acetaminophen 650 mg p.o. every 6 hours as needed fever CV: Atrial fibrillation with RVR, now rate controlled Hypertension Fluid overload Metoprolol tartrate 50mg Q12, Cardizem 60mg Q6, Monitor HR and BP keep MAP>65mmHg 2D echocardiogram 12/02 - EF 50-55%. The left atrial size is mildly dilated. The right atrial size is moderately dilated. Trace TR Resp: Acute hypoxic, hypercapnic respiratory failure Complete left lung collapse/mucus plugging APOLONIA/OHS History recurrent MRSA pneumonia Status post intubation and bronchoscopy 12/26/2017, bronchoscopy showed thick mucoid secretions in left upper lobe left lower lobe and right upper lobe Significant tracheomalacia and bronchomalacia involving the right and left main stem bronchi Dr. Poon pulmonary following PRVC AC 16/650/10 FiO2 40%. Albuterol/ipratropium aerosols every 4 hours with albuterol aerosols every 2 hours as needed dyspnea At hypertonic saline 3% aerosols every 4 hours [address] of the chest to evaluate for trapped lung and external bronchial compression Continue budesonide 0.5 mg/2 mL 1 inhalation s every 12 hours On Prednisone 20mg BID GI: BMI greater than 50 Gastroesophageal reflux disease Hypoalbuminemia NPO for intubation and bronchoscopy. Start tube feeds today with Nepro with free water flushes nutrition recommended vital hyperlipidemia 50 cc an hour Lansoprazole for GI prophylaxis. Patient is on famotidine 20 mg p.o. daily at home Docusate sodium/senna 1 tablet twice daily for bowel regimen. Patient is on senna 8.6 mg twice daily at home Having regular bowel movement Continue ondansetron 4 mg every 6 hours as needed nausea Renal/: Acute on chronic kidney disease J placement Monitor renal function, I/O's, avoid nephrotoxins Creatinine stable throughout this hospitalization Renal is following started on Lasix drip, currently on 10mg/hr Solitario catheter to maintain patency with recent pyelonephritis/GJ placement. Outpatient J stent removal by urology placed during last hospitalization 12/02 12/20 CT abd/pelvis: No hydronephrosis Continue tamsulosin 0.4 mg daily Endo: Diabetes mellitus Acute hypoglycemia-resolved Sliding scale insulin with Novolin R with Accu-Cheks to maintain euglycemia every 6 hours low regimen Heme: Normocytic anemia Chronic Rivaroxaban use Right cephalic vein superficial thrombus Monitor CBC Continue with rivaroxaban 10 mg daily ID: Urinary tract infection/MDR Klebsiella History of MRSA History of C. difficile Blood cx 12/20 Leni avila Currently on PO vancomycin 125 3 times daily, ceftazidime/avibactam and fluconazole ID. 1 dose of vanc given 12/26 Monitor for signs of infections ( Fever, WBC) Pertinent cultures Urine Legionella pneumococcal antigens negative Urine culture 12/13 Klebsiella ESBL positive positive Blood culture 12/20: [place] [facility] Access -Right IJ CVL placed the ED 12/13 Prophylaxis -GI -lansoprazole -DVT -SCD/rivaroxaban Level 2 follow-up Randall Chávez MD Dec 28, 2017 11:34
[2017-12-28] MEDS ORDERED: ACETAMINOPHEN 650 MG/20.3 ML UDC PO PRN (11:45)
[2017-12-28] MEDS: RESP: SODIUM CHLORIDE 3% 4 ML NEB NEB SCH ×4 (12:00→23:32)
[2017-12-28] MEDS ORDERED: POTASSIUM CHLORIDE INJ 30 MEQ in SODIUM CHLORIDE 0.9% INJ 100 ML IV-CENTRAL ONE (13:00)
[2017-12-28] MEDS: MAGNESIUM SULFATE 1 GM PREMIX 100 ML IV SCH ×2 (13:12→14:45)
[2017-12-28] MEDS: ARTIFICIAL TEARS OPTH SOLN 15 ML BTL EACH EYE SCH ×2 (14:00→21:01)
--- NOTE | 2017-12-28 19:44 | HHI.PR ---
Subjective Remarks Went into Respiratory failure and Atelectasis of the left lung. Intubated and now on the vent. FIo2 at 35 %. Awake and responds CXR shows improved left lung Opacity Objective Vital Signs Date Time Temp Pulse Resp B/P (MAP) Pulse Ox O2 Delivery O2 Flow Rate FiO2 12/28/17 18:00 103 12/28/17 18:00 Bi-Pap 35 12/28/17 17:35 Bi-Pap 35 12/28/17 17:35 99 35 12/28/17 17:35 BiPAP/CPAP 35 12/28/17 16:00 98.2 102 14 106/51 (69) 100 12/28/17 16:00 102 12/28/17 16:00 30 12/28/17 15:12 100 30 12/28/17 14:00 106 12/28/17 12:27 100 30 12/28/17 12:26 30 12/28/17 12:00 35 12/28/17 12:00 100 12/28/17 12:00 97.2 94 16 93/50 (64) 100 12/28/17 10:00 97 12/28/17 08:00 98.7 97 16 91/53 (66) 100 12/28/17 08:00 35 12/28/17 08:00 97 12/28/17 07:38 100 30 12/28/17 06:00 91 12/28/17 04:00 97.9 100 16 90/56 (67) 93 12/28/17 04:00 35 12/28/17 04:00 100 12/28/17 03:30 100 30 12/28/17 02:00 86 12/28/17 00:20 100 30 12/28/17 00:00 88 12/28/17 00:00 35 12/28/17 00:00 97.9 88 16 94/69 (77) 100 12/27/17 22:18 100 35 12/27/17 22:00 79 12/27/17 20:00 97.4 87 16 101/60 (74) 100 12/27/17 20:00 40 12/27/17 20:00 87 I/O 12/27/17 12/27/17 12/27/17 12/28/17 12/28/17 12/28/17 07:00 15:00 23:00 07:00 15:00 23:00 Intake Total 910 ml 100 ml 920 ml 1166 ml 150 ml 671 ml Output Total 1300 ml 1550 ml 1250 ml 1125 ml Balance -390 ml 100 ml -630 ml -84 ml 150 ml -454 ml Intake Oral 0 ml IV Total 310 ml 100 ml 200 ml 366 ml 150 ml 215 ml Tube Feeding 200 ml 356 ml Tube Irrigant 600 ml 100 ml Other 600 ml 720 ml Output Urine Total 1300 ml 1550 ml 1250 ml 1125 ml # Bowel Movements 1 1 0 Result Diagram: 12/28/1782312/28/17823 Objective Remarks GENERAL: This is a Obese elderly W/F patient, on the vent , Awake CARDIOVASCULAR: Regular rate and rhythm without murmurs, gallops, or rubs. RESPIRATORY: Diffuse expiratory wheezes, diminished breath sounds left chest . Crackles at bases . GASTROINTESTINAL: Abdomen soft, non-tender,nondistended. Normal active bowel sounds MUSCULOSKELETAL: Extremities without clubbing, cyanosis,but has 2 + edema. NEURO: awake . Assessment and Plan Assessment and Plan (1) Acute hypercapnic respiratory failure Diagnosis: Principal (2) Hypoglycemia Diagnosis: Principal (3) BMI 50.0-59.9, adult Diagnosis: Principal (4) Afib Diagnosis: Secondary (5) Dyslipidemia Diagnosis: Secondary (6) Peripheral neuropathy Diagnosis: Secondary (7) Diabetes mellitus Diagnosis: Principal (8) Essential hypertension Diagnosis: Principal (9) Hiatal hernia Diagnosis: Secondary (10) Gastroesophageal reflux disease Diagnosis: Secondary (11) Chronic kidney disease (CKD) stage G3a/A3, moderately decreased glomerular filtration rate (GFR) between 45-59 mL/min/1.73 square meter and albuminuria creatinine ratio greater than 300 mg/g Diagnosis: Secondary (12) Left Lung atelectasis. Plan : 1 Hold sedation 2. Continue antibiotics. and switch to PO 3 Vent support and wean FIo2 4. Duonebs qid. 5. Wean to CPAP and check resp parameters 6. PT and OT. 7. Cont Diuretic Drip 8. CXR , CBC BMP in am 9. Prednisone 20 mg bid Francoise Poon MD Dec 28, 2017 19:44
[2017-12-29] VITALS (18 sets, daily range): BP systolic 93–108; BP diastolic 52–58; PULSE 77–98; RESP 13–16; TEMP 97.7–98.3; O2SAT 92–100
[2017-12-29] MEDS: DILTIAZEM HCL 60 MG TAB PO SCH ×4 (01:16→17:38)
[2017-12-29] MEDS: FUROSEMIDE INJ 100 MG in SODIUM CHLORIDE 0.9% INJ 90 ML IV SCH (03:32)
[2017-12-29] MEDS: RESP: ALBUTEROL 2.5 MG/IPRATROPIUM 0.5 MG NEB (SCH) NEB ×6 (03:56→23:54)
[2017-12-29] MEDS: RESP: SODIUM CHLORIDE 3% 4 ML NEB NEB SCH ×6 (03:56→23:54)
[2017-12-29] MEDS: CHLORHEXIDINE GLUCONATE 2 % 1 PACK (2 CLOTHS) TOP SCH (04:00)
[2017-12-29 04:31] LABS: BASOPHIL % 0.2 % (0.0-2.0); HEMATOCRIT 24.6 % (35.0-46.0); HEMOGLOBIN 8.2 GM/DL (11.6-15.3); LYMPH % 3.9 % (9.0-44.0); LYMPHOCYTE # 0.5 TH/MM3 (1.0-4.8); MEAN CELL VOLUME 89.7 FL (80.0-100.0); MEAN CORPUSCULAR HEMOGLOBIN 29.7 PG (27.0-34.0); MEAN CORPUSCULAR HGB CONC 33.1 % (32.0-36.0); MEAN PLATELET VOLUME 8.7 FL (7.0-11.0); MONO % 4.8 % (0.0-8.0); MONOCYTE # 0.6 TH/MM3 (0-0.9); NEUT % 91.1 % (16.0-70.0); PLATELET COUNT 184 TH/MM3 (150-450); RED BLOOD COUNT 2.75 MIL/MM3 (4.00-5.30); RED CELL DISTRIBUTION WIDTH 18.9 % (11.6-17.2); WHITE BLOOD COUNT 13.2 TH/MM3 (4.0-11.0)
[2017-12-29 05:07] LABS: ALBUMIN 2.4 GM/DL (3.4-5.0); BICARBONATE 22.5 MEQ/L (21.0-32.0); CALCIUM 7.5 MG/DL (8.5-10.1); CREATININE 2.47 MG/DL (0.50-1.00); MAGNESIUM 1.8 MG/DL (1.5-2.5)
[2017-12-29 05:09] LABS: PHOSPHORUS 4.7 MG/DL (2.5-4.9)
[2017-12-29 05:13] LABS: BASOPHILS 1 % (0-2); LYMPHOCYTES 7 % (9-44); MONOCYTES 3 % (0-8); MYELOCYTES 3 % (0-0); NEUTROPHIL # MANUAL DIFF 11.7 TH/MM3 (1.8-7.7); POLYS (SEG NEUTROPHILS) 86 % (16-70)
[2017-12-29 05:15] LABS: SPHEROCYTES OCC (NORMAL); STOMATOCYTES 1+ (NORMAL)
[2017-12-29 05:16] LABS: TOXIC VACUOLATION PRESENT (NONE SEEN)
[2017-12-29] MEDS: ARTIFICIAL TEARS OPTH SOLN 15 ML BTL EACH EYE SCH ×3 (06:00→20:45)
[2017-12-29] MEDS: INSULIN NovoLIN REGULAR SUPPLEMENTAL SCALE SQ SCH ×5 (06:00→20:44)
--- NOTE | 2017-12-29 06:23 | RADRPT ---
EXAM DATE/TIME: 12/29/2017 03:16 [place] COMPARISON: CHEST SINGLE AP, December 28, 2017, 3:36. INDICATIONS : Shortness of breath, possible pulmonary disease. MEDICAL HISTORY : Hypertension. Diabetes mellitus type II. Cardiovascular disease. SURGICAL HISTORY : Appendectomy. ENCOUNTER: Subsequent ACUITY: 1 month PAIN SCORE: Non-responsive. LOCATION: Bilateral chest FINDINGS: A single view of the chest demonstrates improving aeration in the right base. Persistent left basilar consolidation/effusion. Heart size remains prominent. Endotracheal and nasogastric tubes have been r emoved. Degenerative spurring of the dorsal spine. CONCLUSION: 1. Improving aeration in the right base with persistent left basilar consolidation/effusion. Stable c ardiomegaly. 2. Interval removal of the endotracheal and nasogastric tubes. Jakob Plunkett MD on December 29, 2017 at 6:21 Board Certified Radiologist. This report was verified electronically.
[2017-12-29] MEDS: RESP: BUDESONIDE 0.5 MG/2 ML NEB NEB SCH ×2 (07:29→19:43)
[2017-12-29] MEDS ORDERED: POTASSIUM CHLORIDE 10 MEQ CONTROLLED RELEASE TAB PO ONE (07:30)
[2017-12-29] MEDS: CHLORHEXIDINE 0.12% (ORAL KIT) 15 ML CUP MT SCH ×2 (08:00→20:00)
--- NOTE | 2017-12-29 08:28 | HHI.CCPN ---
Subjective Remarks/Hospital Course This is a 67-year-old female. Date of admission 12/13/2017. Past medical history includes elevated BMI, chronic asthma on chronic oxygen, atrial fibrillation/rate controlled, hypertension dyslipidemia. Today, patient presents to [facility] emergency department after being found unresponsive at the assisted. She was just discharged from the hospital 12/10/2017 from [facility]. She is morbidly obese with multiple severe chronic illnesses and was both in respiratory distress and decreased responsiveness at the same time. She was noted to be hypoxic with saturations in the e 80s with nasal cannula. Was brought in on BiPAP. Accu-Chek was in the 30s when paramedics found her. Initial GCS was reported as 3. She received some D10 through a right arm PICC line but upon arrival staff felt that the PICC line was not working properly. Patient cannot provide any history or review of systems. She arrives critically ill Patient received D50 and a central line in the right internal jugular was placed by ED physician as no significant access was available. Chest x-ray revealed no acute cardiopulmonary findings. After being placed on BiPAP and receiving glucose patient's mentation is much improved and likely can be removed in the ICU. Less confused when evaluated in the ED. UA is positive. Previous history of Pseudomonas sensitive to aztreonam 12/14: Currently resting in bed in no acute distress on 3 L nasal cannula. Overnight on BiPAP/Venturi mask currently on 3 L nasal cannula. Difficult to arouse but once arousable does follow commands in all 4 extremities but weakly. Blood sugar 135. ABG currently pending 12/15: Afebrile. Resting in bed on nasal cannula. Arousable and following commands. Ill-definition due to hypo-tension. I will place arterial line secondary to body habitus. She does not appear septic. She is more awake and alert and attentive today as compared to yesterday. 12/16: Alert and oriented 3, responding to questions appropriately. Arterial line inability to play secondary to body habitus. Patient remained on phenylephrine during the night but now map remains less than 60 will resume phenylephrine infusion, and initiate Midodrine. 12/17: Hemodynamically stable. Phenylephrine infusion off since last night. MAP 80's. Patient alert and oriented, tolerating diet/breakfast. 12/18: Late entry note. Hemodynamically stable. Decrease FiO2 requirements currently on 2 L nasal cannula O2 saturation 97-98 %. RECONSULT 12/19: Patient became hemodynamically unstable this afternoon requiring reinitiation of phenylephrine infusion currently at 70 mcgs/minute. 12/20: Patient became somnolent last evening noted respiratory acidosis around 2 AM. Patient placed back on BiPAP. ID has been consulted for MDR Klebsiella. Patient awake and alert this afternoon, and denies pain. 12/21: Respiratory status much improved, and to remain on BiPAP at night while sleeping. ABGs improved. Patient hemodynamically stable no vasopressor requirements at this time. IV fluids discontinued. Patient tolerating a diet. 12/22: Patient remains a respiratory acidosis, slightly more lethargic today. Patient placed on BiPAP with exception of meals today. Repeat ABG pending this afternoon 12/23: ABG's and neuro status unchanged. Patient remains on BiPAP with exception of meals. Repeat ABG pending this afternoon. Ammonia level ordered. 12/24 Patient is on BIPAP 15/ with 40% . In Afib with RVR 12/25 No events overnight. Remains on BIPAP. Started on Lasix drip per renal 20mg /hr 12/26: Patient remains on BiPAP lethargic. Air entry is diminished on the left side. Chest x-ray shows complete whiteout on the left side with mediastinal shift to the left indicating mucus plugging and left lung collapse. Will proceed with emergency intubation and bronchoscopy (I discussed with Dr. Baca -he will do bronchoscopy at 11:30 AM today) 12/27: Intubated yesterday for severe left lung atelectasis. Underwent bronchoscopy by Dr. Baca. Bronchoscopy showed tracheomalacia and bronchomalacia involving right mainstem bronchi, left mainstem and left upper lobe bronchi. Significant thick mucoid secretions in right upper lobe bronchi, left upper bronchus and also left lower lobe. Moderate endobronchitis. Chest x -ray shows moderate improvement in left upper lobe but persistent dense consolidation middle and lower lung zones. Check CT of the chest stat today 12/28: Afebrile. FiO2 at 30% awake alert and awake. Plan extubation today passes parameters.. Subjective 12/29: Afebrile. Extubated yesterday without complications to BiPAP currently at 12/5 at 35%. Tolerated taking pills yesterday. Somewhat lethargic this a.m. but this appears to be her baseline Objective Vital Signs Date Time Temp Pulse Resp B/P (MAP) Pulse Ox O2 Delivery O2 Flow Rate FiO2 12/29/17 07:29 97 35 12/29/17 06:00 91 12/29/17 06:00 Bi-Pap 3.00 12/29/17 04:00 97.8 13 93/55 (68) Intake and Output 12/29/17 12/29/17 12/30/17 08:00 16:00 00:00 Intake Total 0 ml Output Total 1251 ml Balance -1251 ml Result Diagram: 12/29/17 0350 12/29/17 0350 Other Results Microbiology Date/Time Source Procedure Growth Status 12/20/17 12:13 Blood Peripheral Aerobic Blood Culture - Final [place] Spp Complete 12/20/17 12:13 Blood Peripheral Anaerobic Blood Culture - Final NO GROWTH IN 5 DAYS Complete 12/26/17 12:45 Bronchial Washings Bronchial Fungal Smear - Final NO FUNGAL ELEMENTS SEEN. Resulted 12/26/17 12:45 Bronchial Washings Bronchial Fungal Culture Pending Resulted 12/21/17 00:00 Urine Clean Catch Urine Culture - Final 50-100,000 CFU/ML MIXED BERNA... Complete Imaging Last Impressions Chest X-Ray 12/29/17 0600 Signed Impressions: Service Date/Time: Friday, December 29, 2017 03:16 - CONCLUSION: 1. Improving aeration in the right base with persistent left basilar consolidation/ effusion. Stable cardiomegaly. 2. Interval removal of the endotracheal and nasogastric tubes. Jakob Plunkett MD Chest CT 12/27/17 0000 Signed Impressions: Service Date/Time: December 10:29 - CONCLUSION: 1. Basilar atelectasis and small pleural effusions, increased from November 26. Mild perihilar groundglass opacity present most characteristic of minimal pulmonary edema. 2. Support apparatus as above. Moderate coronary calcifications. Sachin Gonzalez MD Abdomen/Pelvis CT 12/20/17 0000 Signed Impressions: Service Date/Time: December 21:20 - CONCLUSION: Stable appearance to the CT abdomen/pelvis were compared to 11/26/17. Right double-J stent in place, multiple gallstones, left renal mass, left lateral ventral hernia. Dorian Vasquez MD Upper Extremity Ultrasound 12/13/17 0000 Signed Impressions: Service Date/Time: December 13:43 - CONCLUSION: 1. No deep venous thrombosis in the left upper extremity. 2. Superficial thrombosis of the right cephalic vein. El Nuñez MD Lower Extremity Ultrasound 12/13/17 0000 Signed Impressions: Service Date/Time: December 14:26 - CONCLUSION: Normal examination. Domingo Calderon MD Head CT 12/13/17 0000 Signed Impressions: Service Date/Time: December 13:30 - CONCLUSION: Normal examination. Domingo Calderon MD Objective Remarks GENERAL: 67-year-old female resting in bed in no acute distress SKIN: Warm and dry. No rash HEAD: Atraumatic. Normocephalic. EYES: Pupils equal and round about 3 mm bilaterally and reactive. No scleral icterus. No injection or drainage. ENT: No nasal bleeding or discharge. Orotracheally intubated NECK: Trachea midline. No JVD. Right IJ is clean dry and intact CARDIOVASCULAR: IRR. Distant heart tones. S1, S2. No S4. Without murmur RESPIRATORY: Diminished breath sounds throughout, but particularly absent in the left lower lung west. GASTROINTESTINAL: Abdomen soft, obese, nontender. Hypoactive bowel sounds are appreciated MUSCULOSKELETAL: Extremities with 1+ bilateral upper and lower extremity edema NEUROLOGICAL: Cranial nerves II through XII grossly intact motor grossly within normal limits. Urinary Catheter: Yes Assessment to: Continue Solitario insert reason: ICU Pt Getting Diuretics Vascular Central Line Catheter: Yes Assessment to: Continue Date of Insertion: Dec 13, 2017 Line: Central Venous Catheter Side: Right Location: Internal, Jugular A/P Assessment and Plan Neuro/Psych: Acute toxic metabolic encephalopathy likely secondary to hypoglycemia/CO2 retention Chronic benzodiazepine use Depression disorder NOS Diabetic neuropathy Chronic pain syndrome with chronic narcotic use Resume hydrocodone/acetaminophen 5/325 1 tablet every 6 hours as needed pain Continue sertraline 100 mg p.o. daily for depression Continue pregabalin 75 mg p.o. daily for peripheral neuropathy CT brain 12/13 revealed no acute intracranial findings Acetaminophen 650 mg p.o. every 6 hours as needed fever CV: Atrial fibrillation with RVR, now rate controlled Hypertension Fluid overload Metoprolol tartrate 50mg Q12, Cardizem 60mg Q6, Monitor HR and BP keep MAP>65mmHg 2D echocardiogram 12/02 - EF 50-55%. The left atrial size is mildly dilated. The right atrial size is moderately dilated. Trace TR Currently on furosemide drip at 10 mg an hour per nephrology Resp: Acute hypoxic, hypercapnic respiratory failure Complete left lung collapse/mucus plugging APOLONIA/OHS History recurrent MRSA pneumonia Status post intubation and bronchoscopy 12/26/2017 and extubated 12/28, bronchoscopy showed thick mucoid secretions in left upper lobe left lower lobe and right upper lobe Significant tracheomalacia and bronchomalacia involving the right and left main stem bronchi Dr. Poon pulmonary following Currently on BiPAP 15/5 at 35% Albuterol/ipratropium aerosols every 4 hours with albuterol aerosols every 2 hours as needed dyspnea At hypertonic saline 3% aerosols every 4 hours 5 days total as mucolytic Continue budesonide 0.5 mg/2 mL 1 inhalation s every 12 hours On Prednisone 20mg BID GI: BMI greater than 40 Gastroesophageal reflux disease Hypoalbuminemia ADA diet Famotidine for GI prophylaxis. Patient is on famotidine 20 mg p.o. daily at home Docusate sodium/senna 1 tablet twice daily for bowel regimen. Patient is on senna 8.6 mg twice daily at home Having regular bowel movement Continue ondansetron 4 mg every 6 hours as needed nausea Renal//FEN: Acute on chronic kidney disease J stent placement Hypokalemia Monitor renal function, I/O's, avoid nephrotoxins Creatinine stable throughout this hospitalization Renal is following started on Lasix drip, currently on 10mg/hr Solitario catheter to maintain patency with recent pyelonephritis/GJ placement. Outpatient J stent removal should be scheduled by urology that was placed during last hospitalization 12/02 12/20 CT abd/pelvis: No hydronephrosis Continue tamsulosin 0.4 mg daily 70 mEq KCl 1 now along with 2 g mag sulfate. Recheck potassium at 1800 Endo: Diabetes mellitus Acute hypoglycemia-resolved Sliding scale insulin with Novolin R with Accu-Cheks to maintain euglycemia every 6 hours low regimen Heme: Normocytic anemia Chronic Rivaroxaban use Right cephalic vein superficial thrombus Monitor CBC Continue with rivaroxaban 10 mg daily ID: Urinary tract infection/MDR Klebsiella History of MRSA History of C. difficile Blood cx 3/8 Leni avila Currently on PO vancomycin 125 3 times daily, ceftazidime/avibactam and fluconazole per ID. 1 dose of vanc given 12/26 Monitor for signs of infections (Fever, WBC) Pertinent cultures Urine Legionella pneumococcal antigens negative Urine culture 12/13 Klebsiella ESBL positive positive Blood culture 12/20: LENI GREWAL Access -Right IJ CVL placed the ED 12/13 Prophylaxis -GI -famotidine -DVT -SCD/rivaroxaban Level 2 follow-up Randall Chávez MD Dec 29, 2017 08:28
[2017-12-29] MEDS: VANCOMYCIN 25 MG/ML SOLN 100 ML BOTTLE PO SCH ×3 (09:00→17:38)
[2017-12-29] MEDS: NYSTATIN 100,000 U/GM PWD 15 GM BTL TOPICAL SCH ×2 (09:00→20:45)
[2017-12-29] MEDS: SODIUM CHLORIDE 0.9% FLUSH 10 ML FLUSH IV FLUSH SCH ×2 (09:00→20:36)
[2017-12-29] MEDS ORDERED: POTASSIUM CHLORIDE INJ 30 MEQ in SODIUM CHLORIDE 0.9% INJ 100 ML IV-CENTRAL ONE (09:00)
[2017-12-29] MEDS ORDERED: LANSOPRAZOLE SOLUTAB 30 MG TAB NG SCH (09:00)
[2017-12-29] MEDS: MUPIROCIN 2% OINT 1 APPLIC/GM SYR EACH NARE SCH ×2 (09:00→20:35)
[2017-12-29] MEDS: MAGNESIUM SULFATE 1 GM PREMIX 100 ML IV SCH ×2 (09:16→10:22)
[2017-12-29] MEDS: TAMSULOSIN HCL 0.4 MG CAP PO SCH (09:17)
[2017-12-29] MEDS: LACTOBACILLUS ACIDOPHILUS TAB PO SCH ×3 (09:17→17:38)
[2017-12-29] MEDS: ASCORBIC ACID 500 MG TAB PO SCH ×2 (09:17→20:36)
[2017-12-29] MEDS: predniSONE 20 MG TAB PO SCH ×2 (09:17→20:41)
[2017-12-29] MEDS: DOCUSATE SODIUM 50 MG/SENNA 8.6 MG TAB PO SCH ×2 (09:17→20:36)
[2017-12-29] MEDS: SERTRALINE HCL 100 MG TAB PO SCH (09:17)
[2017-12-29] MEDS: METOPROLOL TARTRATE 25 MG TAB PO SCH ×2 (09:17→20:36)
[2017-12-29] MEDS: PREGABALIN 75 MG CAP PO SCH (09:17)
[2017-12-29] MEDS: RIVAROXABAN 10 MG TAB PO SCH (09:17)
[2017-12-29] MEDS: FLUCONAZOLE 100 MG TAB PO SCH (10:22)
[2017-12-29] MEDS: cefTAZidime/AVIBACTAM INJ 0.94 GM in SODIUM CHLORIDE 0.9% INJ 50 ML IV SCH ×2 (10:22→20:35)
[2017-12-29] MEDS: ACETAMINOPHEN/HYDROcodone 325 MG/5 MG TAB PO PRN (10:25)
--- NOTE | 2017-12-29 13:10 | HHI.NPPN ---
Subjective Complaints: Shortness of Breath Renal Failure: Acute Additional Remarks Tired today, no acute complaints. Review of Systems General General Remarks unable to obtain due to intubation. Cardiovascular Cardiac: Edema Objective Data Data 12/29/17 12/30/17 19:00 07:00 Intake Total 365 ml Balance 365 ml IV Total 365 ml Vital Signs Date Time Temp Pulse Resp B/P (MAP) Pulse Ox O2 Delivery O2 Flow Rate FiO2 12/29/17 12:00 97.8 77 16 108/58 (75) 98 12/29/17 12:00 Bi-Pap 3.00 35 12/29/17 12:00 82 12/29/17 10:00 82 12/29/17 10:00 Bi-Pap 3.00 35 12/29/17 09:47 98 Nasal Cannula 3.00 12/29/17 08:00 97.8 80 13 104/56 (72) 98 12/29/17 08:00 Bi-Pap 3.00 35 12/29/17 08:00 82 12/29/17 07:29 97 35 12/29/17 06:00 91 12/29/17 06:00 Bi-Pap 3.00 35 12/29/17 04:42 100 35 12/29/17 04:00 97.8 78 13 93/55 (68) 98 12/29/17 04:00 78 12/29/17 04:00 Bi-Pap 3.00 35 12/29/17 02:00 98 12/29/17 02:00 Bi-Pap 3.00 35 12/29/17 01:15 100 35 12/29/17 00:00 Bi-Pap 3.00 35 12/29/17 00:00 92 12/29/17 00:00 98.3 92 15 108/52 (70) 100 12/28/17 22:20 100 35 12/28/17 22:00 Bi-Pap 3.00 35 12/28/17 22:00 95 12/28/17 20:00 Bi-Pap 3.00 35 12/28/17 20:00 98.6 102 17 102/55 (71) 12/28/17 19:40 99 35 18 18:00 103 12/28/17 18:00 Bi-Pap 35 12/28/17 17:35 Bi-Pap 35 12/28/17 17:35 99 35 12/28/17 17:35 BiPAP/CPAP 35 12/28/17 16:00 98.2 102 14 106/51 (69) 100 12/28/17 16:00 102 12/28/17 16:00 30 12/28/17 15:12 100 30 12/28/17 14:00 106 -: 12/29/17 0350 12/29/17 0350 Tubes & Lines: Garcia Tubes & Lines Comment TLC Drip Comment Lasix @ 10 mg/hr, Propofol Physical Exam General Appearance: Well Developed, No Acute Distress, Sleeping, Obese Throat Throat Exam: Oral Mucosa Sa[place]emin & Moist Pulmonary Resp Exam: Breath Sounds Equal, Rhonchi, Decreased Bases, Diminished Breath Sounds Cardiology CV Exam: Good Perfusion, Irregular, Tachycardia Gastrointestinal/Abdomen GI Exam: Soft, Non-Tender, Bowel Sounds Present Musculoskeletal MS Exam: Joints Intact, Unable to Ambulate Integumentary Skin Exam: Warm, Dry Extremeties Extremities Exam: Pedal Pulses Palpable, Moderate Edema, Dependent Edema Neurologic Neuro Exam: Unresponsive, Sedated Psychiatric Psych Exam: Appropriate Responses VTE Prophylaxis Device: SCDs Assessment/Plan Assessment Summary: FREDDY/Acute Renal Failure, Fluid/Volume Overload, Hypertension Problem List: (1) FREDDY (acute kidney injury) ICD Codes: N17.9 - Acute kidney failure, unspecified Plan: Her best creatinine at discharge was 1.2 Elevated vancomycin levels suggest she my have suffered vancomycin induced nephrotoxicity May have suffered hypoperfusion injury, possibly ATN due to hypotension and sepsis. She also has UTI. Creatinine stable at 2.4 Excellent response to diuresis. Continue Lasix gtt (10 mg/hr). If creatinine stable tomorrow, may change to 40mg IV TID - continue to monitor. However ongoing extensive edema Continue to monitor urine output, has garcia currently. Replace K and Mag as needed. Potassium ordered today Avoid nephrotoxic agents, renally dose when appropriate. Avoid hypotension, not on pressors (2) Hypernatremia ICD Codes: E87.0 - Hyperosmolality and hypernatremia Plan: Improving On free water with tube feeding Repeat labs (3) Respiratory failure ICD Codes: J96.90 - Respiratory failure, unspecified, unspecified whether with hypoxia or hypercapnia Plan: Extubated now Continue diuresis s/p bronchoscopy with multiple mucous plugs identified and suctioned. Also has tracheomalacia and bronchomalacia pulmonary following (4) UTI (urinary tract infection) ICD Codes: N39.0 - Urinary tract infection, site not specified Plan: ID is following. She is on Avycaz and PO Diflucan. Has MDRO Klebsiella Sp. Contact precautions (5) Pneumonia ICD Codes: J18.9 - Pneumonia, unspecified organism Status: Acute Plan: See above. ID is following. On IV Avycaz. (6) C. difficile colitis ICD Codes: A04.72 - Enterocolitis due to Clostridium difficile, not specified as recurrent Plan: PO vancomycin Contact precautions. (7) Anemia ICD Codes: D64.9 - Anemia, unspecified Plan: No evidence of iron deficiency Monitor hemoglobin (8) Afib ICD Codes: I48.91 - Unspecified atrial fibrillation Status: Chronic Plan: rate improved. c On PO Cardizem and PO metoprolol Problem Qualifiers (1) Afib: Qualified Codes: I48.2 - Chronic atrial fibrillation Jorge Archer MD Dec 29, 2017 13:10
[2017-12-29] MEDS: FAMOTIDINE 20 MG TAB PO SCH (20:41)
[2017-12-30] VITALS (15 sets, daily range): BP systolic 95–118; BP diastolic 53–71; PULSE 73–89; RESP 11–16; TEMP 97.2–98.8; O2SAT 35–100
[2017-12-30] MEDS: FUROSEMIDE INJ 100 MG in SODIUM CHLORIDE 0.9% INJ 90 ML IV SCH (00:45)
[2017-12-30] MEDS: DILTIAZEM HCL 60 MG TAB PO SCH ×4 (00:45→18:16)
[2017-12-30] MEDS: CHLORHEXIDINE GLUCONATE 2 % 1 PACK (2 CLOTHS) TOP SCH (04:00)
[2017-12-30] MEDS: RESP: ALBUTEROL 2.5 MG/IPRATROPIUM 0.5 MG NEB (SCH) NEB ×5 (04:39→21:30)
[2017-12-30] MEDS: RESP: SODIUM CHLORIDE 3% 4 ML NEB NEB SCH ×5 (04:39→21:45)
[2017-12-30] MEDS: ARTIFICIAL TEARS OPTH SOLN 15 ML BTL EACH EYE SCH ×3 (05:25→21:12)
[2017-12-30 06:11] LABS: AUTOMATED NEUTROPHIL # 10.4 TH/MM3 (1.8-7.7); BASOPHIL % 0.2 % (0.0-2.0); HEMATOCRIT 25.2 % (35.0-46.0); LYMPH % 4.5 % (9.0-44.0); LYMPHOCYTE # 0.5 TH/MM3 (1.0-4.8); MEAN CELL VOLUME 90.3 FL (80.0-100.0); MEAN CORPUSCULAR HEMOGLOBIN 28.8 PG (27.0-34.0); MEAN CORPUSCULAR HGB CONC 31.9 % (32.0-36.0); MEAN PLATELET VOLUME 9.2 FL (7.0-11.0); MONO % 4.8 % (0.0-8.0); MONOCYTE # 0.6 TH/MM3 (0-0.9); NEUT % 90.5 % (16.0-70.0); PLATELET COUNT 170 TH/MM3 (150-450); RED BLOOD COUNT 2.79 MIL/MM3 (4.00-5.30); RED CELL DISTRIBUTION WIDTH 18.9 % (11.6-17.2); WHITE BLOOD COUNT 11.5 TH/MM3 (4.0-11.0)
[2017-12-30 06:20] LABS: BICARBONATE 25.5 MEQ/L (21.0-32.0); CALCIUM 7.2 MG/DL (8.5-10.1); CREATININE 2.36 MG/DL (0.50-1.00); MAGNESIUM 2.1 MG/DL (1.5-2.5)
[2017-12-30 06:44] LABS: CALCIUM-PROTEIN CORRECTED 8.2 MG/DL (8.5-10.1); TOTAL PROTEIN 5.3 GM/DL (6.4-8.2)
[2017-12-30] MEDS: RESP: BUDESONIDE 0.5 MG/2 ML NEB NEB SCH ×2 (07:21→21:30)
[2017-12-30 07:39] LABS: BANDS 1 % (0-6); LYMPHOCYTES 6 % (9-44); METAMYELOCYTES 1 % (0-1); MONOCYTES 5 % (0-8); MYELOCYTES 4 % (0-0); NEUTROPHIL # MANUAL DIFF 10.2 TH/MM3 (1.8-7.7); POLYS (SEG NEUTROPHILS) 83 % (16-70)
[2017-12-30] MEDS: CHLORHEXIDINE 0.12% (ORAL KIT) 15 ML CUP MT SCH ×2 (08:00→20:00)
[2017-12-30] MEDS: INSULIN NovoLIN REGULAR SUPPLEMENTAL SCALE SQ SCH ×4 (08:00→21:00)
[2017-12-30] MEDS: VANCOMYCIN 25 MG/ML SOLN 100 ML BOTTLE PO SCH ×3 (09:00→18:00)
[2017-12-30] MEDS: MUPIROCIN 2% OINT 1 APPLIC/GM SYR EACH NARE SCH ×2 (09:00→21:07)
[2017-12-30] MEDS: TAMSULOSIN HCL 0.4 MG CAP PO SCH (09:00)
[2017-12-30] MEDS: cefTAZidime/AVIBACTAM INJ 0.94 GM in SODIUM CHLORIDE 0.9% INJ 50 ML IV SCH ×2 (09:00→21:07)
[2017-12-30] MEDS: NYSTATIN 100,000 U/GM PWD 15 GM BTL TOPICAL SCH ×2 (09:00→21:12)
[2017-12-30] MEDS ORDERED: POTASSIUM CHLOR 40 MEQ PREMIX 100 ML IV ONE (09:45)
--- NOTE | 2017-12-30 09:46 | HHI.CCPN ---
Subjective Remarks/Hospital Course This is a 67-year-old female. Date of admission 12/13/2017. Past medical history includes elevated BMI, chronic asthma on chronic oxygen, atrial fibrillation/rate controlled, hypertension dyslipidemia. Today, patient presents to [facility] emergency department after being found unresponsive at the [facility]. She was just discharged from the hospital 12/10/2017 from [facility]. She is morbidly obese with multiple severe chronic illnesses and was both in respiratory distress and decreased responsiveness at the same time. She was noted to be hypoxic with saturations in the e 80s with nasal cannula. Was brought in on BiPAP. Accu-Chek was in the 30s when paramedics found her. Initial GCS was reported as 3. She received some D10 through a right arm PICC line but upon arrival staff felt that the PICC line was not working properly. Patient cannot provide any history or review of systems. She arrives critically ill Patient received D50 and a central line in the right internal jugular was placed by ED physician as no significant access was available. Chest x-ray revealed no acute cardiopulmonary findings. After being placed on BiPAP and receiving glucose patient's mentation is much improved and likely can be removed in the ICU. Less confused when evaluated in the ED. UA is positive. Previous history of Pseudomonas sensitive to aztreonam 12/14: Currently resting in bed in no acute distress on 3 L nasal cannula. Overnight on BiPAP/Venturi mask currently on 3 L nasal cannula. Difficult to arouse but once arousable does follow commands in all 4 extremities but weakly. Blood sugar 135. ABG currently pending 12/15: Afebrile. Resting in bed on nasal cannula. Arousable and following commands. Ill-definition due to hypo-tension. I will place arterial line secondary to body habitus. She does not appear septic. She is more awake and alert and attentive today as compared to yesterday. 12/16: Alert and oriented 3, responding to questions appropriately. Arterial line inability to play secondary to body habitus. Patient remained on phenylephrine during the night but now map remains less than 60 will resume phenylephrine infusion, and initiate Midodrine. 12/17: Hemodynamically stable. Phenylephrine infusion off since last night. MAP 80's. Patient alert and oriented, tolerating diet/breakfast. 12/18: Late entry note. Hemodynamically stable. Decrease FiO2 requirements currently on 2 L nasal cannula O2 saturation 97-98 %. RECONSULT 12/19: Patient became hemodynamically unstable this afternoon requiring reinitiation of phenylephrine infusion currently at 70 mcgs/minute. 12/20: Patient became somnolent last evening noted respiratory acidosis around 2 AM. Patient placed back on BiPAP. ID has been consulted for MDR Klebsiella. Patient awake and alert this afternoon, and denies pain. 12/21: Respiratory status much improved, and to remain on BiPAP at night while sleeping. ABGs improved. Patient hemodynamically stable no vasopressor requirements at this time. IV fluids discontinued. Patient tolerating a diet. 12/22: Patient remains a respiratory acidosis, slightly more lethargic today. Patient placed on BiPAP with exception of meals today. Repeat ABG pending this afternoon 12/23: ABG's and neuro status unchanged. Patient remains on BiPAP with exception of meals. Repeat ABG pending this afternoon. Ammonia level ordered. 12/24 Patient is on BIPAP 15/ with 40% . In Afib with RVR 12/25 No events overnight. Remains on BIPAP. Started on Lasix drip per renal 20mg /hr 12/26: Patient remains on BiPAP lethargic. Air entry is diminished on the left side. Chest x-ray shows complete whiteout on the left side with mediastinal shift to the left indicating mucus plugging and left lung collapse. Will proceed with emergency intubation and bronchoscopy (I discussed with Dr. Baca -he will do bronchoscopy at 11:30 AM today) 12/27: Intubated yesterday for severe left lung atelectasis. Underwent bronchoscopy by Dr. Baca. Bronchoscopy showed tracheomalacia and bronchomalacia involving right mainstem bronchi, left mainstem and left upper lobe bronchi. Significant thick mucoid secretions in right upper lobe bronchi, left upper bronchus and also left lower lobe. Moderate endobronchitis. Chest x -ray shows moderate improvement in left upper lobe but persistent dense consolidation middle and lower lung zones. Check CT of the chest stat today 12/28: Afebrile. FiO2 at 30% awake alert and awake. Plan extubation today passes parameters.. 12/29: Afebrile. Extubated yesterday without complications to BiPAP currently at 12/5 at 35%. Tolerated taking pills yesterday. Somewhat lethargic this a.m. but this appears to be her baseline Subjective 12/30: Afebrile. Currently on room air. Tolerating diet. Remove central line today if furosemide drip changed to 40 mg IV [address] Archer. Objective Vital Signs Date Time Temp Pulse Resp B/P (MAP) Pulse Ox O2 Delivery O2 Flow Rate FiO2 12/30/17 09:01 99 Nasal Cannula 3.00 12/30/17 06:00 35 12/30/17 06:00 75 12/30/17 04:00 97.2 11 95/53 (67) Intake and Output 12/30/17 12/30/17 12/31/17 08:00 16:00 00:00 Intake Total 200 ml Output Total 1601 ml Balance -1401 ml Result Diagram: 12/30/17 0430 12/30/17 0430 Other Results Microbiology Date/Time Source Procedure Growth Status 12/20/17 12:13 Blood Peripheral Aerobic Blood Culture - Final [place] Spp Complete 12/20/17 12:13 Blood Peripheral Anaerobic Blood Culture - Final NO GROWTH IN 5 DAYS Complete 12/26/17 12:45 Bronchial Washings Bronchial Fungal Smear - Final NO FUNGAL ELEMENTS SEEN. Resulted 12/26/17 12:45 Bronchial Washings Bronchial Fungal Culture Pending Resulted 12/21/17 00:00 Urine Clean Catch Urine Culture - Final 50-100,000 CFU/ML MIXED BERNA... Complete Imaging Last Impressions Chest X-Ray 12/29/17 0600 Signed Impressions: Service Date/Time: Friday, December 29, 2017 03:16 - CONCLUSION: 1. Improving aeration in the right base with persistent left basilar consolidation/ effusion. Stable cardiomegaly. 2. Interval removal of the endotracheal and nasogastric tubes. Jakob Plunkett MD Chest CT 12/27/17 0000 Signed Impressions: Service Date/Time: December 10:29 - CONCLUSION: 1. Basilar atelectasis and small pleural effusions, increased from November 26. Mild perihilar groundglass opacity present most characteristic of minimal pulmonary edema. 2. Support apparatus as above. Moderate coronary calcifications. Sachin Gonzalez MD Abdomen/Pelvis CT 12/20/17 0000 Signed Impressions: Service Date/Time: December 21:20 - CONCLUSION: Stable appearance to the CT abdomen/pelvis were compared to 11/26/17. Right double-J stent in place, multiple gallstones, left renal mass, left lateral ventral hernia. Dorian Vasquez MD Upper Extremity Ultrasound 12/13/17 0000 Signed Impressions: Service Date/Time: December 13:43 - CONCLUSION: 1. No deep venous thrombosis in the left upper extremity. 2. Superficial thrombosis of the right cephalic vein. El Nuñez MD Lower Extremity Ultrasound 12/13/17 0000 Signed Impressions: Service Date/Time: December 14:26 - CONCLUSION: Normal examination. Domingo Calderon MD Head CT 12/13/17 0000 Signed Impressions: Service Date/Time: December 13:30 - CONCLUSION: Normal examination. Domingo Calderon MD Objective Remarks GENERAL: 67-year-old female resting in bed in no acute distress SKIN: Warm and dry. No rash HEAD: Atraumatic. Normocephalic. EYES: Pupils equal and round about 3 mm bilaterally and reactive. No scleral icterus. No injection or drainage. ENT: No nasal bleeding or discharge. Orotracheally intubated NECK: Trachea midline. No JVD. Right IJ is clean dry and intact CARDIOVASCULAR: IRR. Distant heart tones. S1, S2. No S4. Without murmur RESPIRATORY: Diminished breath sounds throughout, but particularly absent in the left lower lung west. GASTROINTESTINAL: Abdomen soft, obese, nontender. Hypoactive bowel sounds are appreciated MUSCULOSKELETAL: Extremities with 1+ bilateral upper and lower extremity edema NEUROLOGICAL: Cranial nerves II through XII grossly intact motor grossly within normal limits. Urinary Catheter: Yes Assessment to: Continue Solitario insert reason: Prolonged Immobilization Vascular Central Line Catheter: Yes Assessment to: Remove Date of Insertion: Dec 13, 2017 Line: Central Venous Catheter Side: Right Location: Internal, Jugular A/P Assessment and Plan Neuro/Psych: Acute toxic metabolic encephalopathy likely secondary to hypoglycemia/CO2 retention Chronic benzodiazepine use Depression disorder NOS Diabetic neuropathy Chronic pain syndrome with chronic narcotic use Continue hydrocodone/acetaminophen 5/325 1 tablet every 6 hours as needed pain Continue sertraline 100 mg p.o. daily for depression Continue pregabalin 75 mg p.o. daily for peripheral neuropathy CT brain 12/13 revealed no acute intracranial findings Acetaminophen 650 mg p.o. every 6 hours as needed fever Alprazolam 1 mg twice daily as needed anxiety CV: Atrial fibrillation with RVR, now rate controlled Hypertension Fluid overload Metoprolol tartrate 50mg Q12, diltiazem 60mg Q6 for hypertension A. fib control Monitor HR and BP keep MAP>65mmHg 2D echocardiogram 12/02 - EF 50-55%. The left atrial size is mildly dilated. The right atrial size is moderately dilated. Trace TR Currently on furosemide drip at 10 mg an hour per nephrology. Might switch to 40 mg IV [address] Resp: Acute hypoxic, hypercapnic respiratory failure Complete left lung collapse/mucus plugging APOLONIA/OHS History recurrent MRSA pneumonia Status post intubation and bronchoscopy 12/26/2017 and extubated 12/28, bronchoscopy showed thick mucoid secretions in left upper lobe left lower lobe and right upper lobe Significant tracheomalacia and bronchomalacia involving the right and left main stem bronchi Dr. Poon pulmonary following Currently on nasal cannula saturating date with BiPAP 15/5 @ 35% at night Albuterol/ipratropium aerosols every 4 hours with albuterol aerosols every 2 hours as needed dyspnea At hypertonic saline 3% aerosols every 4 hours 5 days total as mucolytic Continue budesonide 0.5 mg/2 mL 1 inhalation s every 12 hours On Prednisone 20mg BID GI: BMI greater than 40 Gastroesophageal reflux disease Hypoalbuminemia ADA diet Famotidine for GI prophylaxis. Patient is on famotidine 20 mg p.o. daily at home Docusate sodium/senna 1 tablet twice daily for bowel regimen. Patient is on senna 8.6 mg twice daily at home Having regular bowel movement Continue ondansetron 4 mg every 6 hours as needed nausea Renal//FEN: Acute on chronic kidney disease J stent placement Hypokalemia Monitor renal function, I/O's, avoid nephrotoxins Creatinine stable throughout this hospitalization Renal is following started on Lasix drip, currently on 10mg/hr Solitario catheter to maintain patency with recent pyelonephritis/GJ placement. Outpatient J stent removal should be scheduled by urology that was placed during last hospitalization 12/02 12/20 CT abd/pelvis: No hydronephrosis Continue tamsulosin 0.4 mg daily 40 mEq KCl 1 now with recheck at 1800 Endo: Diabetes mellitus Acute hypoglycemia-resolved Sliding scale insulin with Novolin R with Accu-Cheks to maintain euglycemia every 6 hours low regimen Heme: Leukocytosis Normocytic anemia Chronic Rivaroxaban use Right cephalic vein superficial thrombus Monitor CBC Continue with rivaroxaban 10 mg daily ID: Urinary tract infection/MDR Klebsiella History of MRSA History of C. difficile Blood cx 12/20 Leni avila Currently on PO vancomycin 125 milligrams 3 times daily, ceftazidime/avibactam and fluconazole per ID. 1 dose of vanc given 12/26 Monitor for signs of infections (Fever, WBC) Pertinent cultures Urine Legionella pneumococcal antigens negative Urine culture 12/13 Klebsiella ESBL positive positive Blood culture 12/20: LENI GREWAL Access -Right IJ CVL placed the ED 12/13. Likely discontinue 12/30 Prophylaxis -GI -famotidine -DVT -SCD/rivaroxaban Level 2 follow-up Randall Chávez MD Dec 30, 2017 09:46
[2017-12-30] MEDS: FLUCONAZOLE 100 MG TAB PO SCH (10:00)
[2017-12-30] MEDS: PREGABALIN 75 MG CAP PO SCH (10:07)
[2017-12-30] MEDS: SERTRALINE HCL 100 MG TAB PO SCH (10:07)
[2017-12-30] MEDS: LACTOBACILLUS ACIDOPHILUS TAB PO SCH ×3 (10:07→18:16)
[2017-12-30] MEDS: predniSONE 20 MG TAB PO SCH ×2 (10:08→21:07)
[2017-12-30] MEDS: DOCUSATE SODIUM 50 MG/SENNA 8.6 MG TAB PO SCH ×2 (10:08→21:08)
[2017-12-30] MEDS: RIVAROXABAN 10 MG TAB PO SCH (10:08)
[2017-12-30] MEDS: ASCORBIC ACID 500 MG TAB PO SCH ×2 (10:08→21:08)
[2017-12-30] MEDS: METOPROLOL TARTRATE 25 MG TAB PO SCH ×2 (10:08→21:07)
[2017-12-30] MEDS ORDERED: CALCIUM GLUCONATE INJ 1 GM in DEXTROSE 5% IN WATER 100ML INJ 100 ML IV ONE ×2 (11:00)
--- NOTE | 2017-12-30 11:40 | HHI.NPPN ---
Subjective Complaints: Shortness of Breath Renal Failure: Acute Additional Remarks Feeling better today Review of Systems General General Remarks unable to obtain due to intubation. Cardiovascular Cardiac: Edema Objective Data Data Vital Signs Date Time Temp Pulse Resp B/P (MAP) Pulse Ox O2 Delivery O2 Flow Rate FiO2 12/30/17 10:00 89 12/30/17 10:00 100 Nasal Cannula 3.00 35 12/30/17 09:01 99 Nasal Cannula 3.00 12/30/17 08:00 100 Nasal Cannula 3.00 35 12/30/17 08:00 89 12/30/17 08:00 98.4 80 11 112/67 (82) 100 12/30/17 06:00 100 Nasal Cannula 3.00 35 12/30/17 06:00 75 12/30/17 04:00 100 Nasal Cannula 3.00 35 12/30/17 04:00 97.2 77 11 95/53 (67) 100 12/30/17 04:00 77 12/30/17 02:00 100 Nasal Cannula 3.00 35 12/30/17 02:00 79 12/30/17 00:00 78 12/30/17 00:00 100 Nasal Cannula 3.00 35 12/30/17 00:00 97.6 78 11 109/62 (78) 100 12/29/17 22:00 77 12/29/17 22:00 100 Nasal Cannula 3.00 35 12/29/17 20:00 100 Nasal Cannula 3.00 35 12/29/17 20:00 89 12/29/17 20:00 97.7 89 14 97/52 (67) 92 12/29/17 19:48 100 Nasal Cannula 3.00 12/29/17 18:00 81 12/29/17 18:00 Bi-Pap 3.00 35 12/29/17 16:00 81 12/29/17 16:00 Bi-Pap 3.00 35 12/29/17 16:00 97.8 87 16 106/56 (73) 98 12/29/17 15:56 100 Nasal Cannula 3.00 12/29/17 14:00 82 12/29/17 14:00 Bi-Pap 3.00 35 12/29/17 12:00 97.8 77 16 108/58 (75) 98 12/29/17 12:00 Bi-Pap 3.00 35 12/29/17 12:00 82 -: [id number]/[id number] Tubes & Lines: Garcia Tubes & Lines Comment TLC Drip Comment Lasix @ 10 mg/hr, Propofol Physical Exam General Appearance: Well Developed, No Acute Distress, Sleeping, Obese Throat Throat Exam: Oral Mucosa Minier & Moist Pulmonary Resp Exam: Breath Sounds Equal, Rhonchi, Decreased Bases, Diminished Breath Sounds Cardiology CV Exam: Good Perfusion, Irregular, Tachycardia Gastrointestinal/Abdomen GI Exam: Soft, Non-Tender, Bowel Sounds Present Musculoskeletal MS Exam: Joints Intact, Unable to Ambulate Integumentary Skin Exam: Warm, Dry Extremeties Extremities Exam: Pedal Pulses Palpable, Moderate Edema, Dependent Edema Neurologic Neuro Exam: Unresponsive, Sedated Psychiatric Psych Exam: Appropriate Responses VTE Prophylaxis Device: SCDs Assessment/Plan Assessment Summary: FREDDY/Acute Renal Failure, Fluid/Volume Overload, Hypertension Problem List: (1) FREDDY (acute kidney injury) ICD Codes: N17.9 - Acute kidney failure, unspecified Plan: Her best creatinine at discharge was 1.2 Elevated vancomycin levels suggest she my have suffered vancomycin induced nephrotoxicity May have suffered hypoperfusion injury, possibly ATN due to hypotension and sepsis. She also has UTI. Creatinine stable at 2.4 -> 2.3 Excellent response to diuresis. Discussed with Dr. Chávez - can d/c central line today and change lasix to 40mg IV TID - continue to monitor. Ongoing extensive edema Continue to monitor urine output, has garcia currently. Replace K and Mag as needed. Potassium ordered today Avoid nephrotoxic agents, renally dose when appropriate. Avoid hypotension, not on pressors (2) Hypernatremia ICD Codes: E87.0 - Hyperosmolality and hypernatremia Plan: Stable - Na 144 On free water with tube feeding Repeat labs (3) Respiratory failure ICD Codes: J96.90 - Respiratory failure, unspecified, unspecified whether with hypoxia or hypercapnia Plan: Extubated now Continue diuresis s/p bronchoscopy with multiple mucous plugs identified and suctioned. Also has tracheomalacia and bronchomalacia pulmonary following (4) UTI (urinary tract infection) ICD Codes: N39.0 - Urinary tract infection, site not specified Plan: ID is following. She is on Avycaz and PO Diflucan. Has MDRO Klebsiella Sp. Contact precautions (5) Pneumonia ICD Codes: J18.9 - Pneumonia, unspecified organism Status: Acute Plan: See above. ID is following. On IV Avycaz. (6) C. difficile colitis ICD Codes: A04.72 - Enterocolitis due to Clostridium difficile, not specified as recurrent Plan: PO vancomycin Contact precautions. (7) Anemia ICD Codes: D64.9 - Anemia, unspecified Plan: No evidence of iron deficiency Monitor hemoglobin (8) Afib ICD Codes: I48.91 - Unspecified atrial fibrillation Status: Chronic Plan: rate improved. c On PO Cardizem and PO metoprolol Problem Qualifiers (1) Afib: Qualified Codes: I48.2 - Chronic atrial fibrillation Jorge Archer MD Dec 30, 2017 11:40
[2017-12-30] MEDS: FUROSEMIDE 40 MG/4 ML VIAL IV PUSH SCH ×2 (13:12→18:16)
[2017-12-30] MEDS: SODIUM CHLORIDE 0.9% FLUSH 10 ML FLUSH IV FLUSH SCH ×2 (21:06→21:12)
[2017-12-30] MEDS: FAMOTIDINE 20 MG TAB PO SCH (21:07)
[2017-12-31] VITALS (14 sets, daily range): BP systolic 98–121; BP diastolic 57–65; PULSE 59–138; RESP 10–24; TEMP 97.4–98.3; O2SAT 100
[2017-12-31] MEDS: DILTIAZEM HCL 60 MG TAB PO SCH ×4 (01:03→17:50)
[2017-12-31] MEDS: RESP: ALBUTEROL 2.5 MG/IPRATROPIUM 0.5 MG NEB (SCH) NEB ×4 (03:59→11:16)
[2017-12-31] MEDS: RESP: SODIUM CHLORIDE 3% 4 ML NEB NEB SCH ×7 (03:59→23:51)
[2017-12-31] MEDS: CHLORHEXIDINE GLUCONATE 2 % 1 PACK (2 CLOTHS) TOP SCH (04:00)
[2017-12-31] MEDS: ARTIFICIAL TEARS OPTH SOLN 15 ML BTL EACH EYE SCH ×3 (06:00→21:54)
[2017-12-31 07:20] LABS: ALBUMIN 2.6 GM/DL (3.4-5.0); BICARBONATE 23.3 MEQ/L (21.0-32.0); CALCIUM 7.6 MG/DL (8.5-10.1); CREATININE 2.54 MG/DL (0.50-1.00); PHOSPHORUS 5.3 MG/DL (2.5-4.9)
--- NOTE | 2017-12-31 07:22 | HHI.CCPN ---
Subjective Remarks/Hospital Course This is a 67-year-old female. Date of admission 12/13/2017. Past medical history includes elevated BMI, chronic asthma on chronic oxygen, atrial fibrillation/rate controlled, hypertension dyslipidemia. Today, patient presents to [facility] emergency department after being found unresponsive [facility] the [facility]. She was just discharged from the hospital 12/10/2017 from [facility]. She is morbidly obese with multiple severe chronic illnesses and was both in respiratory distress and decreased responsiveness at the same time. She was noted to be hypoxic with saturations in the e 80s with nasal cannula. Was brought in on BiPAP. Accu-Chek was in the 30s when paramedics found her. Initial GCS was reported as 3. She received some D10 through a right arm PICC line but upon arrival staff felt that the PICC line was not working properly. Patient cannot provide any history or review of systems. She arrives critically ill Patient received D50 and a central line in the right internal jugular was placed by ED physician as no significant access was available. Chest x-ray revealed no acute cardiopulmonary findings. After being placed on BiPAP and receiving glucose patient's mentation is much improved and likely can be removed in the ICU. Less confused when evaluated in the ED. UA is positive. Previous history of Pseudomonas sensitive to aztreonam 12/14: Currently resting in bed in no acute distress on 3 L nasal cannula. Overnight on BiPAP/Venturi mask currently on 3 L nasal cannula. Difficult to arouse but once arousable does follow commands in all 4 extremities but weakly. Blood sugar 135. ABG currently pending 12/15: Afebrile. Resting in bed on nasal cannula. Arousable and following commands. Ill-definition due to hypo-tension. I will place arterial line secondary to body habitus. She does not appear septic. She is more awake and alert and attentive today as compared to yesterday. 12/16: Alert and oriented 3, responding to questions appropriately. Arterial line inability to play secondary to body habitus. Patient remained on phenylephrine during the night but now map remains less than 60 will resume phenylephrine infusion, and initiate Midodrine. 12/17: Hemodynamically stable. Phenylephrine infusion off since last night. MAP 80's. Patient alert and oriented, tolerating diet/breakfast. 12/18: Late entry note. Hemodynamically stable. Decrease FiO2 requirements currently on 2 L nasal cannula O2 saturation 97-98 %. RECONSULT 12/19: Patient became hemodynamically unstable this afternoon requiring reinitiation of phenylephrine infusion currently at 70 mcgs/minute. 12/20: Patient became somnolent last evening noted respiratory acidosis around 2 AM. Patient placed back on BiPAP. ID has been consulted for MDR Klebsiella. Patient awake and alert this afternoon, and denies pain. 12/21: Respiratory status much improved, and to remain on BiPAP at night while sleeping. ABGs improved. Patient hemodynamically stable no vasopressor requirements at this time. IV fluids discontinued. Patient tolerating a diet. 12/22: Patient remains a respiratory acidosis, slightly more lethargic today. Patient placed on BiPAP with exception of meals today. Repeat ABG pending this afternoon 12/23: ABG's and neuro status unchanged. Patient remains on BiPAP with exception of meals. Repeat ABG pending this afternoon. Ammonia level ordered. 12/24 Patient is on BIPAP 15/ with 40% . In Afib with RVR 12/25 No events overnight. Remains on BIPAP. Started on Lasix drip per renal 20mg /hr 12/26: Patient remains on BiPAP lethargic. Air entry is diminished on the left side. Chest x-ray shows complete whiteout on the left side with mediastinal shift to the left indicating mucus plugging and left lung collapse. Will proceed with emergency intubation and bronchoscopy (I discussed with Dr. Baca -he will do bronchoscopy at 11:30 AM today) 12/27: Intubated yesterday for severe left lung atelectasis. Underwent bronchoscopy by Dr. Baca. Bronchoscopy showed tracheomalacia and bronchomalacia involving right mainstem bronchi, left mainstem and left upper lobe bronchi. Significant thick mucoid secretions in right upper lobe bronchi, left upper bronchus and also left lower lobe. Moderate endobronchitis. Chest x -ray shows moderate improvement in left upper lobe but persistent dense consolidation middle and lower lung zones. Check CT of the chest stat today 12/28: Afebrile. FiO2 at 30% awake alert and awake. Plan extubation today passes parameters.. 12/29: Afebrile. Extubated yesterday without complications to BiPAP currently at 12/5 at 35%. Tolerated taking pills yesterday. Somewhat lethargic this a.m. but this appears to be her baseline Subjective 12/30: Afebrile. Currently on room air. Tolerating diet. Remove central line today if furosemide drip changed to 40 mg IV [address] Archer. 12/31 Patient is on 3L oxygen. Awake, alert. Afebrile. Off Lasix drip. Objective Vital Signs Date Time Temp Pulse Resp B/P (MAP) Pulse Ox O2 Delivery O2 Flow Rate FiO2 12/31/17 06:00 100 Nasal Cannula 3.00 35 12/31/17 06:00 68 12/31/17 04:00 97.4 14 98/64 (75) Intake and Output 12/31/17 12/31/17 01/01/18 08:00 16:00 00:00 Intake Total 250 ml Output Total 600 ml Balance -350 ml Result Diagram: 12/30/17 0430 12/30/172048 Other Results Laboratory Tests Test 12/30/17 20:49 12/31/17 05:40 Potassium Level 4.2 MEQ/L Imaging Last Impressions Chest X-Ray 12/29/17 0600 Signed Impressions: Service Date/Time: Friday, December 29, 2017 03:16 - CONCLUSION: 1. Improving aeration in the right base with persistent left basilar consolidation/ effusion. Stable cardiomegaly. 2. Interval removal of the endotracheal and nasogastric tubes. Jakob Plunkett MD Chest CT 12/27/17 0000 Signed Impressions: Service Date/Time: December 10:29 - CONCLUSION: 1. Basilar atelectasis and small pleural effusions, increased from November 26. Mild perihilar groundglass opacity present most characteristic of minimal pulmonary edema. 2. Support apparatus as above. Moderate coronary calcifications. Sachin Gonzalez MD Abdomen/Pelvis CT 12/20/17 0000 Signed Impressions: Service Date/Time: December 21:20 - CONCLUSION: Stable appearance to the CT abdomen/pelvis were compared to 11/26/17. Right double-J stent in place, multiple gallstones, left renal mass, left lateral ventral hernia. Dorian Vasquez MD Upper Extremity Ultrasound 12/13/17 0000 Signed Impressions: Service Date/Time: December 13:43 - CONCLUSION: 1. No deep venous thrombosis in the left upper extremity. 2. Superficial thrombosis of the right cephalic vein. El Nuñez MD Lower Extremity Ultrasound 12/13/17 0000 Signed Impressions: Service Date/Time: December 14:26 - CONCLUSION: Normal examination. Domingo Calderon MD Head CT 12/13/17 0000 Signed Impressions: Service Date/Time: December 13:30 - CONCLUSION: Normal examination. Domingo Calderon MD Objective Remarks GENERAL: 67-year-old female resting in bed in no acute distress SKIN: Warm and dry. No rash HEAD: Atraumatic. Normocephalic. EYES: Pupils equal and round about 3 mm bilaterally and reactive. No scleral icterus. No injection or drainage. ENT: No nasal bleeding or discharge. Orotracheally intubated NECK: Trachea midline. No JVD. Right IJ is clean dry and intact CARDIOVASCULAR: IRR. Distant heart tones. S1, S2. No S4. Without murmur RESPIRATORY: Diminished breath sounds throughout, but particularly absent in the left lower lung west. GASTROINTESTINAL: Abdomen soft, obese, nontender. Hypoactive bowel sounds are appreciated MUSCULOSKELETAL: Extremities with 1+ bilateral upper and lower extremity edema NEUROLOGICAL: Cranial nerves II through XII grossly intact motor grossly within normal limits. Date of Insertion: Dec 13, 2017 Line: Central Venous Catheter Side: Right Location: Internal, Jugular A/P Assessment and Plan Neuro/Psych: Acute toxic metabolic encephalopathy likely secondary to hypoglycemia/CO2 retention ( improved) Chronic benzodiazepine use Depression disorder NOS Diabetic neuropathy Chronic pain syndrome with chronic narcotic use Continue hydrocodone/acetaminophen 5/325 1 tablet every 6 hours as needed pain Continue sertraline 100 mg p.o. daily for depression Continue pregabalin 75 mg p.o. daily for peripheral neuropathy CT brain 12/13 revealed no acute intracranial findings Acetaminophen 650 mg p.o. every 6 hours as needed fever Alprazolam 1 mg twice daily as needed anxiety CV: Atrial fibrillation with RVR, now rate controlled Hypertension Fluid overload Metoprolol tartrate 50mg Q12, diltiazem 60mg Q6 for hypertension A. fib control Monitor HR and BP keep MAP>65mmHg 2D echocardiogram 12/02 - EF 50-55%. The left atrial size is mildly dilated. The right atrial size is moderately dilated. Trace TR Resp: Acute hypoxic, hypercapnic respiratory failure Complete left lung collapse/mucus plugging APOLONIA/OHS History recurrent MRSA pneumonia Status post intubation and bronchoscopy 12/26/2017 and extubated 12/28, bronchoscopy showed thick mucoid secretions in left upper lobe left lower lobe and right upper lobe Significant tracheomalacia and bronchomalacia involving the right and left main stem bronchi Dr. Poon pulmonary following Continue with oxygen keep sats >92% BiPAP 15/5 @ 35% at night and PRNN during day Albuterol/ipratropium aerosols every 4 hours with albuterol aerosols every 2 hours as needed dyspnea Continue budesonide 0.5 mg/2 mL 1 inhalation s every 12 hours On Prednisone 20mg BID GI: BMI greater than 40 Gastroesophageal reflux disease Hypoalbuminemia ADA diet Famotidine for GI prophylaxis. Patient is on famotidine 20 mg p.o. daily at home Docusate sodium/senna 1 tablet twice daily for bowel regimen. Patient is on senna 8.6 mg twice daily at home Having regular bowel movement Continue ondansetron 4 mg every 6 hours as needed nausea Renal//FEN: Acute on chronic kidney disease J stent placement Hypokalemia Monitor renal function, I/O's, avoid nephrotoxins Solitario catheter to maintain patency with recent pyelonephritis/GJ placement. Off Lasix drip now on Lasix 40mg TID, Renal is following, UOP: 2050ml in 24 hrs , Outpatient J stent removal should be scheduled by urology that was placed during last hospitalization 12/02 12/20 CT abd/pelvis: No hydronephrosis Continue tamsulosin 0.4 mg daily Endo: Diabetes mellitus Acute hypoglycemia-resolved Sliding scale insulin with Novolin R with Accu-Cheks to maintain euglycemia every 6 hours low regimen Heme: Leukocytosis Normocytic anemia Chronic Rivaroxaban use Right cephalic vein superficial thrombus Monitor CBC Continue with rivaroxaban 10 mg daily ID: Urinary tract infection/MDR Klebsiella History of MRSA History of C. difficile Blood cx 12/20 Leni avila Currently on PO vancomycin , ceftazidime/avibactam and fluconazole per ID. 1 dose of vanc given 12/26 Monitor for signs of infections (Fever, WBC) Pertinent cultures Urine Legionella pneumococcal antigens negative Urine culture 12/13 Klebsiella ESBL positive positive Blood culture 12/20: ARMONDIA SPP Access -Right IJ CVL placed the ED 12/13. Likely discontinue 12/30 Prophylaxis -GI -famotidine -DVT -SCD/rivaroxaban Level 2 follow-up Juma Pak MD Dec 31, 2017 07:22
[2017-12-31] MEDS: INSULIN NovoLIN REGULAR SUPPLEMENTAL SCALE SQ SCH ×4 (08:00→21:00)
[2017-12-31] MEDS: RESP: BUDESONIDE 0.5 MG/2 ML NEB NEB SCH ×2 (08:16→20:43)
[2017-12-31] MEDS: SERTRALINE HCL 100 MG TAB PO SCH (09:21)
[2017-12-31] MEDS: ASCORBIC ACID 500 MG TAB PO SCH ×2 (09:22→21:54)
[2017-12-31] MEDS: DOCUSATE SODIUM 50 MG/SENNA 8.6 MG TAB PO SCH ×2 (09:22→21:00)
[2017-12-31] MEDS: LACTOBACILLUS ACIDOPHILUS TAB PO SCH ×3 (09:22→17:50)
[2017-12-31] MEDS: predniSONE 20 MG TAB PO SCH ×2 (09:22→21:53)
[2017-12-31] MEDS: RIVAROXABAN 10 MG TAB PO SCH (09:22)
[2017-12-31] MEDS: METOPROLOL TARTRATE 25 MG TAB PO SCH ×2 (09:22→21:53)
[2017-12-31] MEDS: MUPIROCIN 2% OINT 1 APPLIC/GM SYR EACH NARE SCH ×2 (09:23→21:53)
[2017-12-31] MEDS: FLUCONAZOLE 100 MG TAB PO SCH (09:23)
[2017-12-31] MEDS: PREGABALIN 75 MG CAP PO SCH (09:23)
[2017-12-31] MEDS: FUROSEMIDE 40 MG/4 ML VIAL IV PUSH SCH ×3 (09:24→17:50)
[2017-12-31] MEDS: SODIUM CHLORIDE 0.9% FLUSH 10 ML FLUSH IV FLUSH SCH ×2 (09:24→21:53)
[2017-12-31] MEDS: cefTAZidime/AVIBACTAM INJ 0.94 GM in SODIUM CHLORIDE 0.9% INJ 50 ML IV SCH ×2 (09:25→21:53)
[2017-12-31] MEDS: CHLORHEXIDINE 0.12% (ORAL KIT) 15 ML CUP MT SCH ×2 (09:25→20:00)
[2017-12-31] MEDS: NYSTATIN 100,000 U/GM PWD 15 GM BTL TOPICAL SCH ×2 (09:38→21:55)
[2017-12-31] MEDS: VANCOMYCIN 25 MG/ML SOLN 100 ML BOTTLE PO SCH ×2 (09:38→21:54)
[2017-12-31] MEDS: TAMSULOSIN HCL 0.4 MG CAP PO SCH (09:38)
--- NOTE | 2017-12-31 10:04 | HHI.NPPN ---
Subjective Complaints: Shortness of Breath Renal Failure: Acute Interval History She is awake, feeding her self, talkative. Creatinine slightly higher. (Suad Lucas) Review of Systems Cardiovascular Cardiac: Edema (Suad Lucas) Objective Data Data Vital Signs Date Time Temp Pulse Resp B/P (MAP) Pulse Ox O2 Delivery O2 Flow Rate FiO2 12/31/17 08:18 100 Nasal Cannula 3.00 12/31/17 06:00 100 Nasal Cannula 3.00 35 12/31/17 06:00 68 12/31/17 04:00 66 12/31/17 04:00 97.4 66 14 98/64 (75) 100 12/31/17 04:00 100 Nasal Cannula 3.00 35 12/31/17 02:00 100 Nasal Cannula 3.00 35 12/31/17 02:00 84 12/31/17 00:00 100 Nasal Cannula 3.00 35 12/31/17 00:00 98.2 87 10 121/65 (83) 100 12/31/17 00:00 87 12/30/17 22:00 100 Nasal Cannula 3.00 35 12/30/17 22:00 89 12/30/17 21:33 100 Nasal Cannula 4.00 12/30/17 20:00 98.3 81 14 118/71 (87) 100 12/30/17 20:00 100 Nasal Cannula 3.00 35 12/30/17 20:00 81 12/30/17 18:00 89 12/30/17 18:00 100 Nasal Cannula 3.00 35 12/30/17 16:00 100 Nasal Cannula 3.00 35 12/30/17 16:00 89 12/30/17 16:00 98.8 76 16 117/69 (85) 100 12/30/17 14:51 35 12/30/17 14:00 89 12/30/17 14:00 100 Nasal Cannula 3.00 35 12/30/17 12:00 98.4 73 16 107/61 (76) 100 12/30/17 12:00 89 12/30/17 12:00 100 Nasal Cannula 3.00 35 (Suad Lucas) -: 12/30/17 0430 12/31/17 0540 Imaging Last 72 hours Impressions Chest X-Ray 12/29/17 0600 Signed Impressions: Service Date/Time: Friday, December 29, 2017 03:16 - CONCLUSION: 1. Improving aeration in the right base with persistent left basilar consolidation/ effusion. Stable cardiomegaly. 2. Interval removal of the endotracheal and nasogastric tubes. Jakob Plunkett MD Tubes & Lines: Solitario (Suad Lucas. TRANSITIONAL CARE LIAISON) Physical Exam General Appearance: Well Developed, No Acute Distress, Comfortable, Obese (Suad Lucas B. [employer]ITIONAL CARE LIAISON) Throat Throat Exam: Oral Mucosa Justice & Moist (Suad Lucas B. TR[employer]ITIONAL CARE LIAISON) Pulmonary Resp Exam: Clear Bilaterally, Breath Sounds Equal, Rhonchi, Decreased Bases, Diminished Breath Sounds (Suad Lucas B. TR[employer]ITIONAL CARE LIAISON) Cardiology CV Exam: Good Perfusion, Irregular, Tachycardia (Suad Lucas B. [employer]ITIONAL CARE LIAISON) Gastrointestinal/Abdomen GI Exam: Soft, Non-Tender, Bowel Sounds Present GI Remarks super morbidly obese (Suad Lucas B. [employer]AL CARE LIAISON) Musculoskeletal MS Exam: Joints Intact, Normal Tone, Unable to Ambulate (Suad Lucas B. TR[employer]ITIONAL CARE LIAISON) Integumentary Skin Exam: Warm, Dry (Suad Lucas B. TR[employer]ITIONAL CARE LIAISON) Extremeties Extremities Exam: Pedal Pulses Palpable, Moderate Edema, Dependent Edema (Suad Lucas B. TR[employer]ITIONAL CARE LIAISON) Neurologic Neuro Exam: Alert, Awake, Oriented, Speech Clear (Suad Lucas B. [employer]AL CARE LIAISON) Psychiatric Psych Exam: Appropriate Responses (Suad Lucas B. TR[employer]ITIONAL CARE LIAISON) VTE Prophylaxis Device: SCDs (Suad Lucas B. TR[employer]ITIONAL CARE LIAISON) Assessment/Plan Discussed Condition With: Patient Assessment Summary: FREDDY/Acute Renal Failure, Fluid/Volume Overload, Hypertension Problem List: (1) FREDDY (acute kidney injury) ICD Codes: N17.9 - Acute kidney failure, unspecified Plan: Her best creatinine at discharge was 1.2 Elevated vancomycin levels suggest she my have suffered vancomycin induced nephrotoxicity May have suffered hypoperfusion injury, possibly ATN due to hypotension and sepsis. She also has UTI. Creatinine slightly higher today Off Lasix gtt, on 40 mg IV TID She is non oliguric Repeat labs in AM Monitor urine output adjust diuretics as needed PO Fluids encouraged (2) Hypernatremia ICD Codes: E87.0 - Hyperosmolality and hypernatremia Plan: Improved (3) Respiratory failure ICD Codes: J96.90 - Respiratory failure, unspecified, unspecified whether with hypoxia or hypercapnia Plan: Extubated now Continue diuresis s/p bronchoscopy with multiple mucous plugs identified and suctioned. Also has tracheomalacia and bronchomalacia pulmonary following (4) UTI (urinary tract infection) ICD Codes: N39.0 - Urinary tract infection, site not specified Plan: ID is following. She is on Avycaz and PO Diflucan. Has MDRO Klebsiella Sp. Contact precautions (5) Pneumonia ICD Codes: J18.9 - Pneumonia, unspecified organism Status: Acute Plan: See above. ID is following. On IV Avycaz. (6) C. difficile colitis ICD Codes: A04.72 - Enterocolitis due to Clostridium difficile, not specified as recurrent Plan: PO vancomycin Contact precautions. (7) Anemia ICD Codes: D64.9 - Anemia, unspecified Plan: No evidence of iron deficiency Monitor hemoglobin (8) Afib ICD Codes: I48.91 - Unspecified atrial fibrillation Status: Chronic Plan: Intermittent tachycardia On PO Cardizem and PO metoprolol (Suad Lucas) Plan patient was seen and examined. Agree with above assessment and plan. (Mohinder Lopez MD) Problem Qualifiers (1) Afib: Qualified Codes: I48.2 - Chronic atrial fibrillation Suad Lucas Dec 31, 2017 10:04 Mohinder Lopez MD Dec 31, 2017 19:49
--- NOTE | 2017-12-31 10:59 | HHI.IDPN ---
Subjective Subjective Remarks Patient is a 67-year-old female, resides in the custodial, brought into the hospital after she was found unresponsive. She had a recent hospitalization where she was diagnosed to have sepsis related to complicated UTI. During that hospitalization she underwent stent placement. She also had C. difficile colitis during that admission. Patient states that she uses a BiPAP machine in the custodial usually when she is sleeping. She is nonambulatory. Denies any significant cough or congestion. No chest pain. There was no mention of any fever or chills or sweats. When she also came to the hospital this time she was on pressors for hypotension. She improved clinically and her hemodynamics stabilize. However yesterday she went hypotensive again, an infectious disease consultation has been requested to evaluate the patient. Notes reviewed Temps ok Extubated 12/28 Doing well, on nasal O2 Bronch C/S negative BP ok CXR with improving aeration Antibiotics Avycaz PO Vanco Diflucan Current Medications Medications (Trade) Dose Ordered Sig/Mirta Route Start Time Stop Time Status Last Admin (NS Flush) 2 ml UNSCH PRN IV FLUSH 12/13/17 13:30 (NS Flush) 2 ml BID IV FLUSH 12/13/17 21:00 12/31/17 09:24 (Zofran Inj) 4 mg Q6H PRN IV PUSH 12/13/17 13:30 Miscellaneous Information 1 Q361D XX 12/13/17 13:30 12/13/17 13:30 (Chlorhexidine 2% Cloth) Taper DAILY@04 TOP 12/14/17 04:00 12/10/18 03:59 12/31/17 04:00 (Chlorhexidine 2% Cloth) 3 pack UNSCH PRN TOP 12/13/17 13:30 (Zelda-Colace) 1 tab BID PO 12/13/17 21:00 12/31/17 09:22 (Milk Of Magnesia Liq) 30 ml Q12H PRN PO 12/13/17 13:30 (Senokot) 17.2 mg Q12H PRN PO 12/13/17 13:30 (Dulcolax Supp) 10 mg DAILY PRN RECTAL 12/13/17 13:30 (Lactulose Liq) 30 ml DAILY PRN PO 12/13/17 13:30 (Xanax) 1 mg BID PRN PO 12/13/17 13:30 (Pulmicort Respule Neb) 0.5 mg Q12HR NEB NEB 12/13/17 20:00 12/31/17 08:16 (Lyrica) 75 mg DAILY PO 12/14/17 09:00 12/31/17 09:23 (Zoloft) 100 mg DAILY PO 12/14/17 09:00 12/31/17 09:21 (Vitamin C) 500 mg BID PO 12/13/17 21:00 12/31/17 09:22 (Lactinex) 1 tab TID PO 12/13/17 18:00 12/31/17 09:22 (D50w (Vial) Inj) 50 ml UNSCH PRN IV PUSH 12/13/17 13:30 12/19/17 22:25 (Glucagon Inj) 1 mg UNSCH PRN OTHER 12/13/17 13:30 (Pill Splitter) 1 ea UNSCH PRN OTHER 12/13/17 13:30 (Xarelto) 10 mg DAILY PO 12/14/17 09:00 12/31/17 09:22 (Mycostatin Powder) 1 applic Q12HR TOPICAL 12/13/17 21:00 12/31/17 09:38 (Trandate Inj) 10 mg Q1HR PRN IV PUSH 12/13/17 17:00 (Nitroglycerin 2% Oint) 2 inch Q6HR PRN TOPICAL 12/13/17 18:00 (Apresoline Inj) 10 mg Q1HR PRN IV PUSH 12/13/17 17:00 (Brethine Inj) 1 mg UNSCH PRN SQ 12/15/17 10:15 (Bactroban Nasal 2% Oint) Taper BID EACH NARE 12/15/17 21:00 12/11/18 20:59 12/31/17 09:23 Ceftazidime/ Avibactam 0.94 gm/ Sodium Chloride 50 ml @ 25 mls/hr Q12HR IV 12/20/17 13:00 01/03/18 23:00 12/31/17 09:25 (Cardizem) 60 mg Q6HR PO 12/24/17 12:00 12/31/17 06:01 (Lopressor) 100 mg Q12HR PO 12/24/17 21:00 12/31/17 09:22 (Deltasone) 20 mg BID PO 12/24/17 21:00 12/31/17 09:22 (Vancomycin 25 Mg/ml Liq) 125 mg TID PO 12/25/17 13:00 12/31/17 09:38 (Peridex 0.12% Liq) 15 ml BID@08,20 MT 12/26/17 20:00 12/31/17 09:25 (Diflucan) 100 mg Q24H PO 12/26/17 10:00 01/01/18 23:00 12/31/17 09:23 (Duoneb Neb) 1 ampule Q4HR NEB NEB 12/27/17 12:00 12/31/17 08:16 (Tears Naturale Opth Soln) 1 drop Q8HR EACH EYE 12/28/17 14:00 12/31/17 06:00 (Albuterol Neb) 2.5 mg Q2HR NEB PRN NEB 12/28/17 11:30 (Sodium Chloride 3% Neb) 2 ml Q4HR NEB NEB 12/28/17 12:00 01/02/18 11:59 12/31/17 08:16 (Flomax) 0.4 mg DAILY PO 12/29/17 09:00 12/31/17 09:38 (Tylenol 650 Mg/ 20 ml Liq) 650 mg Q6H PRN PO 12/28/17 11:45 (NovoLIN R SUPPLEMENTAL SCALE) 1 ACHS SQ 12/29/17 12:00 (Pepcid) 20 mg HS PO 12/29/17 21:00 12/30/17 21:07 ([place] 5-325 Mg) 1 tab Q4H PRN PO 12/29/17 08:30 12/29/17 10:25 (Lasix Inj) 40 mg TID IV PUSH 12/30/17 13:00 12/31/17 09:24 Lines Line no evidence of infection Past Medical History Chronic respiratory failure secondary to APOLONIA, OHS and bronchial asthma Atrial fibrillation rate controlled Hypertension Dyslipidemia Gastroesophageal reflux disease Elevated BMI greater than 50 Recurrent MRSA pneumonia Depression Constipation Past Surgical History JJ stent placement by urology Hiatal hernia surgery Appendectomy Percutaneous tracheostomy by Dr. Mullins since decannulated Allergies: Coded Allergies: penicillin G (Unverified Allergy, Severe, 05/29/17) Objective . Vital Signs Date Time Temp Pulse Resp B/P (MAP) Pulse Ox O2 Delivery O2 Flow Rate FiO2 12/31/17 08:18 100 Nasal Cannula 3.00 12/31/17 06:00 100 Nasal Cannula 3.00 35 12/31/17 06:00 68 12/31/17 04:00 66 12/31/17 04:00 97.4 66 14 98/64 (75) 100 12/31/17 04:00 100 Nasal Cannula 3.00 35 12/31/17 02:00 100 Nasal Cannula 3.00 35 12/31/17 02:00 84 12/31/17 00:00 100 Nasal Cannula 3.00 35 12/31/17 00:00 98.2 87 10 121/65 (83) 100 12/31/17 00:00 87 12/30/17 22:00 100 Nasal Cannula 3.00 35 12/30/17 22:00 89 12/30/17 21:33 100 Nasal Cannula 4.00 12/30/17 20:00 98.3 81 14 118/71 (87) 100 12/30/17 20:00 100 Nasal Cannula 3.00 35 12/30/17 20:00 81 12/30/17 18:00 89 12/30/17 18:00 100 Nasal Cannula 3.00 35 12/30/17 16:00 100 Nasal Cannula 3.00 35 12/30/17 16:00 89 12/30/17 16:00 98.8 76 16 117/69 (85) 100 12/30/17 14:51 35 12/30/17 14:00 89 12/30/17 14:00 100 Nasal Cannula 3.00 35 12/30/17 12:00 98.4 73 16 107/61 (76) 100 12/30/17 12:00 89 12/30/17 12:00 100 Nasal Cannula 3.00 35 . Laboratory Tests Test 12/30/17 04:30 12/31/17 05:40 White Blood Count 11.5 TH/MM3 Red Blood Count 2.79 MIL/MM3 Hemoglobin 8.0 GM/DL Hematocrit 25.2 % Mean Corpuscular Volume 90.3 FL Mean Corpuscular Hemoglobin 28.8 PG Mean Corpuscular Hemoglobin Concent 31.9 % Red Cell Distribution Width 18.9 % Platelet Count 170 TH/MM3 Mean Platelet Volume 9.2 FL Neutrophils (%) (Auto) 90.5 % Lymphocytes (%) (Auto) 4.5 % Monocytes (%) (Auto) 4.8 % Eosinophils (%) (Auto) 0.0 % Basophils (%) (Auto) 0.2 % Neutrophils # (Auto) 10.4 TH/MM3 Lymphocytes # (Auto) 0.5 TH/MM3 Monocytes # (Auto) 0.6 TH/MM3 Eosinophils # (Auto) 0.0 TH/MM3 Basophils # (Auto) 0.0 TH/MM3 CBC Comment AUTO DIFF Differential Total Cells Counted 100 Neutrophils % (Manual) 83 % Band Neutrophils % 1 % Lymphocytes % 6 % Monocytes % 5 % Neutrophils # (Manual) 10.2 TH/MM3 Metamyelocytes 1 % Myelocytes 4 % Differential Comment FINAL DIFF MANUAL Platelet Estimate NORMAL Platelet Morphology Comment NORMAL Basophilic Stippling MOD Laboratory Tests Test 12/29/17 22:00 12/30/17 04:30 12/30/17 20:49 12/31/17 05:40 Potassium Level 3.5 MEQ/L 3.6 MEQ/L 4.2 MEQ/L 4.3 MEQ/L Blood Urea Nitrogen 35 MG/DL 38 MG/DL Creatinine 2.36 MG/DL 2.54 MG/DL Random Glucose 106 MG/DL 109 MG/DL Total Protein 5.3 GM/DL Calcium Level 7.2 MG/DL 7.6 MG/DL Phosphorus Level 5.0 MG/DL 5.3 MG/DL Magnesium Level 2.1 MG/DL Sodium Level 144 MEQ/L 145 MEQ/L Chloride Level 107 MEQ/L 108 MEQ/L Carbon Dioxide Level 25.5 MEQ/L 23.3 MEQ/L Anion Gap 12 MEQ/L 14 MEQ/L Estimat Glomerular Filtration Rate 20 ML/MIN 19 ML/MIN Protein Corrected Calcium 8.2 MG/DL Albumin 2.6 GM/DL Imaging Chest X-Ray 12/28/17 0600 Signed Impressions: Service Date/Time: Thursday, December 28, 2017 03:36 - CONCLUSION: 1. Improving aeration in the right base with resolving consolidation/effusion. 2. Persistent left basilar consolidation/effusion with volume loss. 3. Stable cardiomegaly. Stable position of life support tubes. Jakob Plunkett MD Chest X-Ray 12/27/17 0000 Signed Impressions: Service Date/Time: December 07:54 - CONCLUSION: 1. Stable tubes and lines. 2. Improved aeration in the left upper lung zone with extensive residual airspace disease and volume loss in the left lung. Riccardo Stack MD Chest CT 12/27/17 0000 Signed Impressions: Service Date/Time: December 10:29 - CONCLUSION: 1. Basilar atelectasis and small pleural effusions, increased from November 26. Mild perihilar groundglass opacity present most characteristic of minimal pulmonary edema. 2. Support apparatus as above. Moderate coronary calcifications. Sachin Gonzalez MD Chest X-Ray 12/26/17 0000 Signed Impressions: Service Date/Time: Tuesday, December 26, 2017 13:19 - CONCLUSION: 1. There is atelectasis of the left lung with an unknown amount of pleural effusion. There is mediastinal shift from right to left. There is basilar dependent airspace disease in the right lung that is similar to December 26. Sachin Gonzalez MD Chest X-Ray 12/26/17 0000 Signed Impressions: Service Date/Time: Tuesday, December 26, 2017 08:41 - CONCLUSION: Endotracheal tube tip 2-3 cm above the [place] in good position. Persistent opacification left hemithorax. Worsening diffuse infiltrates consistent with probable severe pulmonary vascular congestion or pneumonia. Elvin Childs MD Chest X-Ray 12/26/17 0000 Signed Impressions: Service Date/Time: Tuesday, December 26, 2017 03:28 - CONCLUSION: Interval complete opacification of the left hemithorax with volume loss and shift of the mediastinal structures towards that side. This raises concern for mucous plugging of the left mainstem bronchus. Dorian Wilson Jr., MD Chest X-Ray 12/21/17 0600 Signed Impressions: Service Date/Time: Thursday, December 21, 2017 04:24 - CONCLUSION: Mild bibasilar consolidation and small left pleural effusion without significant change. Perry Neri MD Abdomen/Pelvis CT 12/20/17 0000 Signed Impressions: Service Date/Time: December 21:20 - CONCLUSION: Stable appearance to the CT abdomen/pelvis were compared to 11/26/17. Right double-J stent in place, multiple gallstones, left renal mass, left lateral ventral hernia. Dorian Vasquez MD Upper Extremity Ultrasound 12/13/17 0000 Signed Impressions: Service Date/Time: December 13:43 - CONCLUSION: 1. No deep venous thrombosis in the left upper extremity. 2. Superficial thrombosis of the right cephalic vein. El Nuñez MD Lower Extremity Ultrasound 12/13/17 0000 Signed Impressions: Service Date/Time: December 14:26 - CONCLUSION: Normal examination. Domingo Calderon MD Head CT 12/13/17 0000 Signed Impressions: Service Date/Time: December 13:30 - CONCLUSION: Normal examination. Domingo Calderon MD Physical Exam GENERAL: Awake and alert, on nasal O2, NAD SKIN: Cool and dry. No generalized rash HEAD: Atraumatic. Normocephalic. No temporal wasting, or tenderness. EYES: [place] conjunctiva. No petechia or hemorrhage. Pupils equal, round and reactive to light. No scleral icterus. EARS, NOSE AND THROAT: Nose without bleeding or purulent nasal discharge. Moist mucosa NECK: Trachea midline. Supple and not tender, no meningeal signs CARDIOVASCULAR: Regular rate and rhythm. No murmurs, rubs or gallops heard RESPIRATORY: Decreased breath sounds L side ABDOMEN: Soft, obese, no reaction to palpation, nondistended. Bowel sounds present and normoactive. EXTREMITIES: No clubbing, cyanosis. Has bilateral pedal edema. No calf tenderness. . NEUROLOGICAL: Awake and alert PSYCH: Cooperative LINE: Line no evidence of infection Assessment & Plan Remarks IMPRESSION UTI, with Klebsiella Kleb MDR CRE ESBL+ Previous episode of complicated UTI,, has stent in place, had obstruction - CT A/P looks ok, stent in place, no hydro Known APOLONIA Respiratory failure, chronically on BIPAP mask - CXR with white out L, due to plugging, atelectasis - ?PNA - bronch C/S negative - extubated 12/28 Obesity Renal insufficiency, chronic Allergy to PCN, tolerates Cephalosporins Hx C diff colitis - recent episode during last admission RECOMMENDATION Continue Avycaz to cover CRE GNR - end date ordered Continue po Vanco, decrease dose to BID Continue Diflucan - give 7 days Monitor progress Marely Plunkett MD Dec 31, 2017 10:59
--- NOTE | 2017-12-31 13:07 | HHI.PR ---
Subjective Remarks Extubated and on a N/C 3 L. Awake and responds well. Used BiPAP at HS CXR shows improved left lung Opacity Objective Vital Signs Date Time Temp Pulse Resp B/P (MAP) Pulse Ox O2 Delivery O2 Flow Rate FiO2 12/31/17 08:18 100 Nasal Cannula 3.00 12/31/17 08:00 97.9 69 11 106/57 (73) 100 12/31/17 06:00 100 Nasal Cannula 3.00 35 12/31/17 06:00 68 12/31/17 04:00 66 12/31/17 04:00 97.4 66 14 98/64 (75) 100 12/31/17 04:00 100 Nasal Cannula 3.00 35 12/31/17 02:00 100 Nasal Cannula 3.00 35 12/31/17 02:00 84 12/31/17 00:00 100 Nasal Cannula 3.00 35 12/31/17 00:00 98.2 87 10 121/65 (83) 100 12/31/17 00:00 87 12/30/17 22:00 100 Nasal Cannula 3.00 35 12/30/17 22:00 89 12/30/17 21:33 100 Nasal Cannula 4.00 12/30/17 20:00 98.3 81 14 118/71 (87) 100 12/30/17 20:00 100 Nasal Cannula 3.00 35 12/30/17 20:00 81 12/30/17 18:00 89 12/30/17 18:00 100 Nasal Cannula 3.00 35 12/30/17 16:00 100 Nasal Cannula 3.00 35 12/30/17 16:00 89 12/30/17 16:00 98.8 76 16 117/69 (85) 100 12/30/17 14:51 35 12/30/17 14:00 89 12/30/17 14:00 100 Nasal Cannula 3.00 35 I/O 12/30/17 12/30/17 12/30/17 12/31/17 12/31/17 12/31/17 07:00 15:00 23:00 07:00 15:00 23:00 Intake Total 200 ml 200 ml 250 ml Output Total 1601 ml 1450 ml 600 ml Balance -1401 ml -1250 ml -350 ml Intake Oral 200 ml 200 ml 250 ml Output Urine Total 1600 ml 1450 ml 600 ml Stool Total 1 ml 0 ml # Bowel Movements 1 0 Result Diagram: 12/30/17 0430 12/31/17 0540 Objective Remarks GENERAL: This is a Obese elderly W/F patient, Awake and talks. CARDIOVASCULAR: Regular rate and rhythm without murmurs, gallops, or rubs. RESPIRATORY: Diffuse expiratory wheezes, diminished breath sounds left chest . Crackles at bases . GASTROINTESTINAL: Abdomen soft, non-tender,nondistended. Normal active bowel sounds MUSCULOSKELETAL: Extremities without clubbing, cyanosis,but has 2 + edema. NEURO: awake .1 + Reflexes Assessment and Plan Assessment and Plan (1) Acute hypercapnic respiratory failure, Resolved Diagnosis: Principal (2) Hypoglycemia Diagnosis: Principal (3) BMI 50.0-59.9, adult Diagnosis: Principal (4) Afib Diagnosis: Secondary (5) Dyslipidemia Diagnosis: Secondary (6) Peripheral neuropathy Diagnosis: Secondary (7) Diabetes mellitus Diagnosis: Principal (8) Essential hypertension Diagnosis: Principal (9) Hiatal hernia Diagnosis: Secondary (10) Gastroesophageal reflux disease Diagnosis: Secondary (11) Chronic kidney disease (CKD) stage G3a/A3, moderately decreased glomerular filtration rate (GFR) between 45-59 mL/min/1.73 square meter and albuminuria creatinine ratio greater than 300 mg/g Diagnosis: Secondary (12) Left Lung atelectasis. Plan : 1 O2 at 3 L 2. Continue antibiotics.per ID 3 PT and OT 4. Duonebs qid. 5. BiPAP 15/8 and FIo2 30 % at HS 6. BMP ,CBC 6. Prednisone 20 mg bid 7. Cont Diuretic Francoise Poon MD Dec 31, 2017 13:07
[2017-12-31] MEDS: RESP: ALBUTEROL 2.5 MG/3 ML NEB (PRN) NEB ×3 (15:27→23:51)
[2017-12-31 20:57] LABS: HEMATOCRIT 24.9 % (35.0-46.0); HEMOGLOBIN 7.8 GM/DL (11.6-15.3); MEAN CORPUSCULAR HEMOGLOBIN 28.8 PG (27.0-34.0); MEAN CORPUSCULAR HGB CONC 31.4 % (32.0-36.0); MEAN PLATELET VOLUME 9.1 FL (7.0-11.0); PLATELET COUNT 162 TH/MM3 (150-450); RED BLOOD COUNT 2.71 MIL/MM3 (4.00-5.30); WHITE BLOOD COUNT 11.1 TH/MM3 (4.0-11.0)
[2017-12-31] MEDS: FAMOTIDINE 20 MG TAB PO SCH (21:54)
[2018-01-01] VITALS (14 sets, daily range): BP systolic 86–107; BP diastolic 42–61; PULSE 61–95; RESP 10–15; TEMP 96.9–98.3; O2SAT 96–100
[2018-01-01] MEDS: DILTIAZEM HCL 60 MG TAB PO SCH ×2 (01:50→06:00)
[2018-01-01] MEDS: CHLORHEXIDINE GLUCONATE 2 % 1 PACK (2 CLOTHS) TOP SCH (04:00)
[2018-01-01] MEDS: RESP: ALBUTEROL 2.5 MG/3 ML NEB (PRN) NEB ×2 (04:25→12:22)
[2018-01-01] MEDS: RESP: SODIUM CHLORIDE 3% 4 ML NEB NEB SCH ×5 (04:25→21:40)
[2018-01-01 04:47] LABS: BASOPHIL % 0.3 % (0.0-2.0); EOSINOPHIL % 0.1 % (0.0-4.0); HEMATOCRIT 22.8 % (35.0-46.0); HEMOGLOBIN 7.4 GM/DL (11.6-15.3); LYMPH % 2.6 % (9.0-44.0); LYMPHOCYTE # 0.3 TH/MM3 (1.0-4.8); MEAN CELL VOLUME 91.8 FL (80.0-100.0); MEAN CORPUSCULAR HEMOGLOBIN 29.8 PG (27.0-34.0); MEAN CORPUSCULAR HGB CONC 32.5 % (32.0-36.0); MEAN PLATELET VOLUME 9.3 FL (7.0-11.0); MONO % 4.9 % (0.0-8.0); MONOCYTE # 0.5 TH/MM3 (0-0.9); NEUT % 92.1 % (16.0-70.0); PLATELET COUNT 148 TH/MM3 (150-450); RED BLOOD COUNT 2.49 MIL/MM3 (4.00-5.30); RED CELL DISTRIBUTION WIDTH 20.3 % (11.6-17.2); WHITE BLOOD COUNT 9.8 TH/MM3 (4.0-11.0)
[2018-01-01 05:10] LABS: ALBUMIN 2.5 GM/DL (3.4-5.0); AST (GOT) 8 U/L (15-37); BLOOD UREA NITROGEN 42 MG/DL (7-18); CALCIUM 7.8 MG/DL (8.5-10.1); CHLORIDE 108 MEQ/L (98-107); CREATININE 2.47 MG/DL (0.50-1.00); GLOMERULAR FILTRATION RATE 19 ML/MIN (>89); GLUCOSE,RANDOM 119 MG/DL (74-106); SODIUM (NA) 145 MEQ/L (136-145)
[2018-01-01 05:11] LABS: ALT (GPT) 11 U/L (10-53)
[2018-01-01 05:13] LABS: ALKALINE PHOSPHATASE 70 U/L (45-117); TOTAL BILIRUBIN ADULT 0.4 MG/DL (0.2-1.0)
[2018-01-01 05:46] LABS: STOMATOCYTES 2+ (NORMAL)
[2018-01-01] MEDS: ARTIFICIAL TEARS OPTH SOLN 15 ML BTL EACH EYE SCH ×3 (06:23→21:57)
--- NOTE | 2018-01-01 07:39 | HHI.CCPN ---
Subjective Remarks/Hospital Course This is a 67-year-old female. Date of admission 12/13/2017. Past medical history includes elevated BMI, chronic asthma on chronic oxygen, atrial fibrillation/rate controlled, hypertension dyslipidemia. Today, patient presents to [facility] emergency department after being found unresponsive at the care home. She was just discharged from the hospital 12/10/2017 from [facility]. She is morbidly obese with multiple severe chronic illnesses and was both in respiratory distress and decreased responsiveness at the same time. She was noted to be hypoxic with saturations in the e 80s with nasal cannula. Was brought in on BiPAP. Accu-Chek was in the 30s when paramedics found her. Initial GCS was reported as 3. She received some D10 through a right arm PICC line but upon arrival staff felt that the PICC line was not working properly. Patient cannot provide any history or review of systems. She arrives critically ill Patient received D50 and a central line in the right internal jugular was placed by ED physician as no significant access was available. Chest x-ray revealed no acute cardiopulmonary findings. After being placed on BiPAP and receiving glucose patient's mentation is much improved and likely can be removed in the ICU. Less confused when evaluated in the ED. UA is positive. Previous history of Pseudomonas sensitive to aztreonam 12/14: Currently resting in bed in no acute distress on 3 L nasal cannula. Overnight on BiPAP/Venturi mask currently on 3 L nasal cannula. Difficult to arouse but once arousable does follow commands in all 4 extremities but weakly. Blood sugar 135. ABG currently pending 12/15: Afebrile. Resting in bed on nasal cannula. Arousable and following commands. Ill-definition due to hypo-tension. I will place arterial line secondary to body habitus. She does not appear septic. She is more awake and alert and attentive today as compared to yesterday. 12/16: Alert and oriented 3, responding to questions appropriately. Arterial line inability to play secondary to body habitus. Patient remained on phenylephrine during the night but now map remains less than 60 will resume phenylephrine infusion, and initiate Midodrine. 12/17: Hemodynamically stable. Phenylephrine infusion off since last night. MAP 80's. Patient alert and oriented, tolerating diet/breakfast. 12/18: Late entry note. Hemodynamically stable. Decrease FiO2 requirements currently on 2 L nasal cannula O2 saturation 97-98 %. RECONSULT 12/19: Patient became hemodynamically unstable this afternoon requiring reinitiation of phenylephrine infusion currently at 70 mcgs/minute. 12/20: Patient became somnolent last evening noted respiratory acidosis around 2 AM. Patient placed back on BiPAP. ID has been consulted for MDR Klebsiella. Patient awake and alert this afternoon, and denies pain. 12/21: Respiratory status much improved, and to remain on BiPAP at night while sleeping. ABGs improved. Patient hemodynamically stable no vasopressor requirements at this time. IV fluids discontinued. Patient tolerating a diet. 12/22: Patient remains a respiratory acidosis, slightly more lethargic today. Patient placed on BiPAP with exception of meals today. Repeat ABG pending this afternoon 12/23: ABG's and neuro status unchanged. Patient remains on BiPAP with exception of meals. Repeat ABG pending this afternoon. Ammonia level ordered. 12/24 Patient is on BIPAP 15/ with 40% . In Afib with RVR 12/25 No events overnight. Remains on BIPAP. Started on Lasix drip per renal 20mg /hr 12/26: Patient remains on BiPAP lethargic. Air entry is diminished on the left side. Chest x-ray shows complete whiteout on the left side with mediastinal shift to the left indicating mucus plugging and left lung collapse. Will proceed with emergency intubation and bronchoscopy (I discussed with Dr. Baca -he will do bronchoscopy at 11:30 AM today) 12/27: Intubated yesterday for severe left lung atelectasis. Underwent bronchoscopy by Dr. Baca. Bronchoscopy showed tracheomalacia and bronchomalacia involving right mainstem bronchi, left mainstem and left upper lobe bronchi. Significant thick mucoid secretions in right upper lobe bronchi, left upper bronchus and also left lower lobe. Moderate endobronchitis. Chest x -ray shows moderate improvement in left upper lobe but persistent dense consolidation middle and lower lung zones. Check CT of the chest stat today 12/28: Afebrile. FiO2 at 30% awake alert and awake. Plan extubation today passes parameters.. 12/29: Afebrile. Extubated yesterday without complications to BiPAP currently at 12/5 at 35%. Tolerated taking pills yesterday. Somewhat lethargic this a.m. but this appears to be her baseline Subjective 12/30: Afebrile. Currently on room air. Tolerating diet. Remove central line today if furosemide drip changed to 40 mg IV [address] Archer. 12/31 Patient is on 3L oxygen. Awake, alert. Afebrile. Off Lasix drip. 01/01 No events overnight. On 3L oxygen. Off BIPAP. Afebrile. Objective Vital Signs Date Time Temp Pulse Resp B/P (MAP) Pulse Ox O2 Delivery O2 Flow Rate FiO2 01/01/18 06:00 70 01/01/18 06:00 100 Nasal Cannula 3.00 01/01/18 04:00 98.3 15 91/50 (64) 12/31/17 22:00 100 Intake and Output 01/01/18 01/01/18 01/02/18 08:00 16:00 00:00 Intake Total 137 ml Output Total 350 ml Balance -213 ml Result Diagram: 01/01/18 0337 01/01/18 0337 Other Results Laboratory Tests Test 12/31/17 20:35 01/01/18 03:37 White Blood Count 11.1 TH/MM3 9.8 TH/MM3 Red Blood Count 2.71 MIL/MM3 2.49 MIL/MM3 Hemoglobin 7.8 GM/DL 7.4 GM/DL Hematocrit 24.9 % 22.8 % Mean Corpuscular Volume 92.0 FL 91.8 FL Mean Corpuscular Hemoglobin 28.8 PG 29.8 PG Mean Corpuscular Hemoglobin Concent 31.4 % 32.5 % Red Cell Distribution Width 20.0 % 20.3 % Platelet Count 162 TH/MM3 148 TH/MM3 Mean Platelet Volume 9.1 FL 9.3 FL Neutrophils (%) (Auto) 92.1 % Lymphocytes (%) (Auto) 2.6 % Monocytes (%) (Auto) 4.9 % Eosinophils (%) (Auto) 0.1 % Basophils (%) (Auto) 0.3 % Neutrophils # (Auto) 9.0 TH/MM3 Lymphocytes # (Auto) 0.3 TH/MM3 Monocytes # (Auto) 0.5 TH/MM3 Eosinophils # (Auto) 0.0 TH/MM3 Basophils # (Auto) 0.0 TH/MM3 CBC Comment AUTO DIFF Differential Comment AUTO DIFF CONFIRMED Stomatocytes 2+ Blood Urea Nitrogen 42 MG/DL Creatinine 2.47 MG/DL Random Glucose 119 MG/DL Total Protein 5.0 GM/DL Albumin 2.5 GM/DL Calcium Level 7.8 MG/DL Alkaline Phosphatase 70 U/L Aspartate Amino Transf (AST/SGOT) 8 U/L Alanine Aminotransferase (ALT/SGPT) 11 U/L Total Bilirubin 0.4 MG/DL Sodium Level 145 MEQ/L Potassium Level 4.2 MEQ/L Chloride Level 108 MEQ/L Carbon Dioxide Level 26.0 MEQ/L Anion Gap 11 MEQ/L Estimat Glomerular Filtration Rate 19 ML/MIN Imaging Last Impressions Chest X-Ray 12/29/17 0600 Signed Impressions: Service Date/Time: Friday, December 29, 2017 03:16 - CONCLUSION: 1. Improving aeration in the right base with persistent left basilar consolidation/ effusion. Stable cardiomegaly. 2. Interval removal of the endotracheal and nasogastric tubes. Jakob Plunkett MD Chest CT 12/27/17 0000 Signed Impressions: Service Date/Time: December 10:29 - CONCLUSION: 1. Basilar atelectasis and small pleural effusions, increased from November 26. Mild perihilar groundglass opacity present most characteristic of minimal pulmonary edema. 2. Support apparatus as above. Moderate coronary calcifications. Sachin Gonzalez MD Abdomen/Pelvis CT 12/20/17 0000 Signed Impressions: Service Date/Time: December 21:20 - CONCLUSION: Stable appearance to the CT abdomen/pelvis were compared to 11/26/17. Right double-J stent in place, multiple gallstones, left renal mass, left lateral ventral hernia. Dorian Vasquez MD Upper Extremity Ultrasound 12/13/17 0000 Signed Impressions: Service Date/Time: December 13:43 - CONCLUSION: 1. No deep venous thrombosis in the left upper extremity. 2. Superficial thrombosis of the right cephalic vein. El Nuñez MD Lower Extremity Ultrasound 12/13/17 0000 Signed Impressions: Service Date/Time: December 14:26 - CONCLUSION: Normal examination. Domingo Calderon MD Head CT 12/13/17 0000 Signed Impressions: Service Date/Time: December 13:30 - CONCLUSION: Normal examination. Domingo Calderon MD Objective Remarks GENERAL: 67-year-old female resting in bed in no acute distress SKIN: Warm and dry. No rash HEAD: Atraumatic. Normocephalic. EYES: Pupils equal and round about 3 mm bilaterally and reactive. No scleral icterus. No injection or drainage. ENT: No nasal bleeding or discharge. Orotracheally intubated NECK: Trachea midline. No JVD. Right IJ is clean dry and intact CARDIOVASCULAR: IRR. Distant heart tones. S1, S2. No S4. Without murmur RESPIRATORY: Diminished breath sounds throughout, but particularly absent in the left lower lung west. GASTROINTESTINAL: Abdomen soft, obese, nontender. Hypoactive bowel sounds are appreciated MUSCULOSKELETAL: Extremities with 1+ bilateral upper and lower extremity edema NEUROLOGICAL: Cranial nerves II through XII grossly intact motor grossly within normal limits. Date of Insertion: Dec 13, 2017 Line: Central Venous Catheter Side: Right Location: Internal, Jugular A/P Assessment and Plan Neuro/Psych: Acute toxic metabolic encephalopathy likely secondary to hypoglycemia/CO2 retention ( improved) Chronic benzodiazepine use Depression disorder NOS Diabetic neuropathy Chronic pain syndrome with chronic narcotic use Continue hydrocodone/acetaminophen 5/325 1 tablet every 6 hours as needed pain Continue sertraline 100 mg p.o. daily for depression Continue pregabalin 75 mg p.o. daily for peripheral neuropathy CT brain 12/13 revealed no acute intracranial findings Acetaminophen 650 mg p.o. every 6 hours as needed fever Alprazolam 1 mg twice daily as needed anxiety CV: Atrial fibrillation with RVR, now rate controlled Hypertension Fluid overload Hold Lopressor and Cardizem for borderline low BP. Monitor HR and BP keep MAP>65mmHg 2D echocardiogram 12/02 - EF 50-55%. The left atrial size is mildly dilated. The right atrial size is moderately dilated. Trace TR Resp: Acute hypoxic, hypercapnic respiratory failure Complete left lung collapse/mucus plugging APOLONIA/OHS History recurrent MRSA pneumonia Status post intubation and bronchoscopy 12/26/2017 and extubated 12/28, bronchoscopy showed thick mucoid secretions in left upper lobe left lower lobe and right upper lobe Significant tracheomalacia and bronchomalacia involving the right and left main stem bronchi Dr. Poon pulmonary following Continue with oxygen keep sats >92% BiPAP 15/5 @ 35% at night and PRNN during day Albuterol/ipratropium aerosols every 4 hours with albuterol aerosols every 2 hours as needed dyspnea Continue budesonide 0.5 mg/2 mL 1 inhalation s every 12 hours On Prednisone 20mg BID GI: BMI greater than 40 Gastroesophageal reflux disease Hypoalbuminemia ADA diet Famotidine for GI prophylaxis. Patient is on famotidine 20 mg p.o. daily at home Docusate sodium/senna 1 tablet twice daily for bowel regimen. Patient is on senna 8.6 mg twice daily at home Having regular bowel movement Continue ondansetron 4 mg every 6 hours as needed nausea Renal//FEN: Acute on chronic kidney disease J stent placement Hypokalemia Monitor renal function, I/O's, avoid nephrotoxins Solitario catheter to maintain patency with recent pyelonephritis/GJ placement. On Lasix 40mg TID, Renal is following, Cr: 2.47 from 2.54 Outpatient J stent removal should be scheduled by urology that was placed during last hospitalization 12/02 12/20 CT abd/pelvis: No hydronephrosis Continue tamsulosin 0.4 mg daily Endo: Diabetes mellitus Acute hypoglycemia-resolved Sliding scale insulin with Novolin R with Accu-Cheks to maintain euglycemia every 6 hours low regimen Heme: Leukocytosis Normocytic anemia Chronic Rivaroxaban use Right cephalic vein superficial thrombus Monitor CBC Continue with rivaroxaban 10 mg daily ID: Urinary tract infection/MDR Klebsiella History of MRSA History of C. difficile Blood cx 12/20 Leni avila Currently on PO vancomycin , ceftazidime/avibactam and fluconazole per ID. 1 dose of vanc given 12/26 Monitor for signs of infections (Fever, WBC) Pertinent cultures Urine Legionella pneumococcal antigens negative Urine culture 12/13 Klebsiella ESBL positive positive Blood culture 12/20: OERSKOVIA SPP Access -Peripheral IV's Prophylaxis -GI -famotidine -DVT -SCD/rivaroxaban Level 2 follow-up Juma Pak MD Jan 01, 2018 07:39
[2018-01-01] MEDS: INSULIN NovoLIN REGULAR SUPPLEMENTAL SCALE SQ SCH ×4 (08:00→21:57)
[2018-01-01] MEDS: RESP: BUDESONIDE 0.5 MG/2 ML NEB NEB SCH ×2 (08:00→21:40)
[2018-01-01] MEDS: FUROSEMIDE 40 MG/4 ML VIAL IV PUSH SCH (09:00)
--- NOTE | 2018-01-01 09:11 | HHI.IDPN ---
Subjective Subjective Remarks Patient is a 67-year-old female, resides in the custodial, brought into the hospital after she was found unresponsive. She had a recent hospitalization where she was diagnosed to have sepsis related to complicated UTI. During that hospitalization she underwent stent placement. She also had C. difficile colitis during that admission. Patient states that she uses a BiPAP machine in the custodial usually when she is sleeping. She is nonambulatory. Denies any significant cough or congestion. No chest pain. There was no mention of any fever or chills or sweats. When she also came to the hospital this time she was on pressors for hypotension. She improved clinically and her hemodynamics stabilize. However yesterday she went hypotensive again, an infectious disease consultation has been requested to evaluate the patient. Notes reviewed Temps ok Extubated 12/28 Doing well, on nasal O2 Bronch C/S negative BP ok CXR better WBC normal Stool ok Antibiotics Avycaz - to finish 01/03 PO Vanco - tapering Diflucan - to finish today Current Medications Medications (Trade) Dose Ordered Sig/Mirta Route Start Time Stop Time Status Last Admin (NS Flush) 2 ml UNSCH PRN IV FLUSH 12/13/17 13:30 (NS Flush) 2 ml BID IV FLUSH 12/13/17 21:00 12/31/17 21:53 (Zofran Inj) 4 mg Q6H PRN IV PUSH 12/13/17 13:30 Miscellaneous Information 1 Q361D XX 12/13/17 13:30 12/13/17 13:30 (Chlorhexidine 2% Cloth) Taper DAILY@04 TOP 12/14/17 04:00 12/10/18 03:59 12/31/17 04:00 (Chlorhexidine 2% Cloth) 3 pack UNSCH PRN TOP 12/13/17 13:30 (Zelda-Colace) 1 tab BID PO 12/13/17 21:00 12/31/17 09:22 (Milk Of Magnesia Liq) 30 ml Q12H PRN PO 12/13/17 13:30 (Senokot) 17.2 mg Q12H PRN PO 12/13/17 13:30 (Dulcolax Supp) 10 mg DAILY PRN RECTAL 12/13/17 13:30 (Lactulose Liq) 30 ml DAILY PRN PO 12/13/17 13:30 (Xanax) 1 mg BID PRN PO 12/13/17 13:30 (Pulmicort Respule Neb) 0.5 mg Q12HR NEB NEB 12/13/17 20:00 12/31/17 20:43 (Lyrica) 75 mg DAILY PO 12/14/17 09:00 12/31/17 09:23 (Zoloft) 100 mg DAILY PO 12/14/17 09:00 12/31/17 09:21 (Vitamin C) 500 mg BID PO 12/13/17 21:00 12/31/17 21:54 (Lactinex) 1 tab TID PO 12/13/17 18:00 12/31/17 17:50 (D50w (Vial) Inj) 50 ml UNSCH PRN IV PUSH 12/13/17 13:30 12/19/17 22:25 (Glucagon Inj) 1 mg UNSCH PRN OTHER 12/13/17 13:30 (Pill Splitter) 1 ea UNSCH PRN OTHER 12/13/17 13:30 (Xarelto) 10 mg DAILY PO 12/14/17 09:00 12/31/17 09:22 (Mycostatin Powder) 1 applic Q12HR TOPICAL 12/13/17 21:00 12/31/17 21:55 (Trandate Inj) 10 mg Q1HR PRN IV PUSH 12/13/17 17:00 (Nitroglycerin 2% Oint) 2 inch Q6HR PRN TOPICAL 12/13/17 18:00 (Apresoline Inj) 10 mg Q1HR PRN IV PUSH 12/13/17 17:00 (Brethine Inj) 1 mg UNSCH PRN SQ 12/15/17 10:15 (Bactroban Nasal 2% Oint) Taper BID EACH NARE 12/15/17 21:00 12/11/18 20:59 12/31/17 21:53 Ceftazidime/ Avibactam 0.94 gm/ Sodium Chloride 50 ml @ 25 mls/hr Q12HR IV 12/20/17 13:00 01/03/18 23:00 12/31/17 21:53 (Cardizem) 60 mg Q6HR PO 12/24/17 12:00 Future Hold 01/01/18 01:50 (Lopressor) 100 mg Q12HR PO 12/24/17 21:00 Future Hold 12/31/17 21:53 (Deltasone) 20 mg BID PO 12/24/17 21:00 12/31/17 21:53 (Peridex 0.12% Liq) 15 ml BID@08,20 MT 12/26/17 20:00 12/31/17 09:25 (Diflucan) 100 mg Q24H PO 12/26/17 10:00 01/01/18 23:00 12/31/17 09:23 (Tears Naturale Opth Soln) 1 drop Q8HR EACH EYE 12/28/17 14:00 01/01/18 06:23 (Albuterol Neb) 2.5 mg Q2HR NEB PRN NEB 12/28/17 11:30 01/01/18 04:25 (Sodium Chloride 3% Neb) 2 ml Q4HR NEB NEB 12/28/17 12:00 01/02/18 11:59 01/01/18 04:25 (Flomax) 0.4 mg DAILY PO 12/29/17 09:00 12/31/17 09:38 (Tylenol 650 Mg/ 20 ml Liq) 650 mg Q6H PRN PO 12/28/17 11:45 (NovoLIN R SUPPLEMENTAL SCALE) 1 ACHS SQ 12/29/17 12:00 (Pepcid) 20 mg HS PO 12/29/17 21:00 12/31/17 21:54 (Harris 5-325 Mg) 1 tab Q4H PRN PO 12/29/17 08:30 12/29/17 10:25 (Lasix Inj) 40 mg TID IV PUSH 12/30/17 13:00 12/31/17 17:50 (Vancomycin 25 Mg/ml Liq) 125 mg BID PO 12/31/17 21:00 12/31/17 21:54 Lines Line no evidence of infection Past Medical History Chronic respiratory failure secondary to APOLONIA, OHS and bronchial asthma Atrial fibrillation rate controlled Hypertension Dyslipidemia Gastroesophageal reflux disease Elevated BMI greater than 50 Recurrent MRSA pneumonia Depression Constipation Past Surgical History JJ stent placement by urology Hiatal hernia surgery Appendectomy Percutaneous tracheostomy by Dr. Mullins since decannulated Allergies: Coded Allergies: penicillin G (Unverified Allergy, Severe, 05/29/17) Objective . Vital Signs Date Time Temp Pulse Resp B/P (MAP) Pulse Ox O2 Delivery O2 Flow Rate FiO2 01/01/18 06:00 70 01/01/18 06:00 100 Nasal Cannula 3.00 01/01/18 04:00 61 01/01/18 04:00 98.3 61 15 91/50 (64) 100 01/01/18 04:00 100 Nasal Cannula 3.00 01/01/18 02:00 100 Nasal Cannula 3.00 01/01/18 02:00 77 01/01/18 00:00 63 01/01/18 00:00 98.3 63 103/56 (72) 100 01/01/18 00:00 100 Nasal Cannula 3.00 12/31/17 22:00 73 12/31/17 22:00 Nasal Cannula 3.00 100 12/31/17 20:43 100 Nasal Cannula 3.00 12/31/17 20:00 76 12/31/17 20:00 100 Nasal Cannula 3.00 12/31/17 20:00 98.3 76 12 113/62 (79) 12/31/17 18:00 77 12/31/17 18:00 100 Nasal Cannula 3.00 12/31/17 16:00 73 12/31/17 16:00 97.8 73 17 118/62 (80) 100 12/31/17 16:00 100 Nasal Cannula 3.00 12/31/17 14:00 67 12/31/17 14:00 100 Nasal Cannula 3.00 12/31/17 12:00 98.0 59 24 107/64 (78) 12/31/17 12:00 100 Nasal Cannula 3.00 12/31/17 12:00 59 12/31/17 10:00 138 12/31/17 10:00 100 Nasal Cannula 3.00 . Laboratory Tests Test 12/31/17 20:35 01/01/18 03:37 White Blood Count 11.1 TH/MM3 9.8 TH/MM3 Red Blood Count 2.71 MIL/MM3 2.49 MIL/MM3 Hemoglobin 7.8 GM/DL 7.4 GM/DL Hematocrit 24.9 % 22.8 % Mean Corpuscular Volume 92.0 FL 91.8 FL Mean Corpuscular Hemoglobin 28.8 PG 29.8 PG Mean Corpuscular Hemoglobin Concent 31.4 % 32.5 % Red Cell Distribution Width 20.0 % 20.3 % Platelet Count 162 TH/MM3 148 TH/MM3 Mean Platelet Volume 9.1 FL 9.3 FL Neutrophils (%) (Auto) 92.1 % Lymphocytes (%) (Auto) 2.6 % Monocytes (%) (Auto) 4.9 % Eosinophils (%) (Auto) 0.1 % Basophils (%) (Auto) 0.3 % Neutrophils # (Auto) 9.0 TH/MM3 Lymphocytes # (Auto) 0.3 TH/MM3 Monocytes # (Auto) 0.5 TH/MM3 Eosinophils # (Auto) 0.0 TH/MM3 Basophils # (Auto) 0.0 TH/MM3 CBC Comment AUTO DIFF Differential Comment AUTO DIFF CONFIRMED Stomatocytes 2+ Laboratory Tests Test 12/30/17 20:49 12/31/17 05:40 01/01/18 03:37 Potassium Level 4.2 MEQ/L 4.3 MEQ/L 4.2 MEQ/L Blood Urea Nitrogen 38 MG/DL 42 MG/DL Creatinine 2.54 MG/DL 2.47 MG/DL Random Glucose 109 MG/DL 119 MG/DL Albumin 2.6 GM/DL 2.5 GM/DL Calcium Level 7.6 MG/DL 7.8 MG/DL Phosphorus Level 5.3 MG/DL Sodium Level 145 MEQ/L 145 MEQ/L Chloride Level 108 MEQ/L 108 MEQ/L Carbon Dioxide Level 23.3 MEQ/L 26.0 MEQ/L Anion Gap 14 MEQ/L 11 MEQ/L Estimat Glomerular Filtration Rate 19 ML/MIN 19 ML/MIN Total Protein 5.0 GM/DL Alkaline Phosphatase 70 U/L Aspartate Amino Transf (AST/SGOT) 8 U/L Alanine Aminotransferase (ALT/SGPT) 11 U/L Total Bilirubin 0.4 MG/DL Imaging Chest X-Ray 12/28/17 0600 Signed Impressions: Service Date/Time: Thursday, December 28, 2017 03:36 - CONCLUSION: 1. Improving aeration in the right base with resolving consolidation/effusion. 2. Persistent left basilar consolidation/effusion with volume loss. 3. Stable cardiomegaly. Stable position of life support tubes. Jakob Plunkett MD Chest X-Ray 12/27/17 0000 Signed Impressions: Service Date/Time: December 07:54 - CONCLUSION: 1. Stable tubes and lines. 2. Improved aeration in the left upper lung zone with extensive residual airspace disease and volume loss in the left lung. Riccardo Stack MD Chest CT 12/27/17 0000 Signed Impressions: Service Date/Time: December 10:29 - CONCLUSION: 1. Basilar atelectasis and small pleural effusions, increased from November 26. Mild perihilar groundglass opacity present most characteristic of minimal pulmonary edema. 2. Support apparatus as above. Moderate coronary calcifications. Sachin Gonzalez MD Chest X-Ray 12/26/17 0000 Signed Impressions: Service Date/Time: Tuesday, December 26, 2017 13:19 - CONCLUSION: 1. There is atelectasis of the left lung with an unknown amount of pleural effusion. There is mediastinal shift from right to left. There is basilar dependent airspace disease in the right lung that is similar to December 26. Sachin Gonzalez MD Chest X-Ray 12/26/17 0000 Signed Impressions: Service Date/Time: Tuesday, December 26, 2017 08:41 - CONCLUSION: Endotracheal tube tip 2-3 cm above the makeda in good position. Persistent opacification left hemithorax. Worsening diffuse infiltrates consistent with probable severe pulmonary vascular congestion or pneumonia. Elvin Childs MD Chest X-Ray 12/26/17 0000 Signed Impressions: Service Date/Time: Tuesday, December 26, 2017 03:28 - CONCLUSION: Interval complete opacification of the left hemithorax with volume loss and shift of the mediastinal structures towards that side. This raises concern for mucous plugging of the left mainstem bronchus. Dorian Wilson Jr., MD Chest X-Ray 12/21/17 0600 Signed Impressions: Service Date/Time: Thursday, December 21, 2017 04:24 - CONCLUSION: Mild bibasilar consolidation and small left pleural effusion without significant change. Perry Neri MD Abdomen/Pelvis CT 12/20/17 0000 Signed Impressions: Service Date/Time: December 21:20 - CONCLUSION: Stable appearance to the CT abdomen/pelvis were compared to 11/26/17. Right double-J stent in place, multiple gallstones, left renal mass, left lateral ventral hernia. Dorian Vasquez MD Upper Extremity Ultrasound 12/13/17 0000 Signed Impressions: Service Date/Time: December 13:43 - CONCLUSION: 1. No deep venous thrombosis in the left upper extremity. 2. Superficial thrombosis of the right cephalic vein. El Nuñez MD Lower Extremity Ultrasound 12/13/17 0000 Signed Impressions: Service Date/Time: December 14:26 - CONCLUSION: Normal examination. Domingo Calderon MD Head CT 12/13/17 0000 Signed Impressions: Service Date/Time: December 13:30 - CONCLUSION: Normal examination. Domingo Calderon MD Physical Exam GENERAL: Awake and alert, on nasal O2, NAD SKIN: Cool and dry. No generalized rash HEAD: Atraumatic. Normocephalic. No temporal wasting, or tenderness. EYES: Vickery conjunctiva. No petechia or hemorrhage. Pupils equal, round and reactive to light. No scleral icterus. EARS, NOSE AND THROAT: Nose without bleeding or purulent nasal discharge. Moist mucosa NECK: Trachea midline. Supple and not tender, no meningeal signs CARDIOVASCULAR: Regular rate and rhythm. No murmurs, rubs or gallops heard RESPIRATORY: Decreased breath sounds at bases ABDOMEN: Soft, obese, no reaction to palpation, nondistended. Bowel sounds present and normoactive. EXTREMITIES: No clubbing, cyanosis. Has bilateral pedal edema. No calf tenderness. . NEUROLOGICAL: Awake and alert PSYCH: Cooperative LINE: Line no evidence of infection Assessment & Plan Remarks IMPRESSION UTI, with Klebsiella Kleb MDR CRE ESBL+ Previous episode of complicated UTI,, has stent in place, had obstruction - CT A/P looks ok, stent in place, no hydro Known APOLONIA Respiratory failure, chronically on BIPAP mask - CXR with white out L, due to plugging, atelectasis - ?PNA - bronch C/S negative - extubated 12/28 Obesity Renal insufficiency, chronic Allergy to PCN, tolerates Cephalosporins Hx C diff colitis - recent episode during last admission RECOMMENDATION Continue Avycaz to cover CRE GNR - end date ordered - to finish 01/03 Continue po Vanco, decrease dose to BID, taper weekly Continue Diflucan - give 7 days, to finish today Monitor pulmonary status Monitor progress Clinically improving and stable from ID standpoint Marely Plunkett MD Jan 01, 2018 09:11
[2018-01-01] MEDS: TAMSULOSIN HCL 0.4 MG CAP PO SCH (09:14)
[2018-01-01] MEDS: SERTRALINE HCL 100 MG TAB PO SCH (09:14)
[2018-01-01] MEDS: ASCORBIC ACID 500 MG TAB PO SCH ×2 (09:14→21:56)
[2018-01-01] MEDS: FLUCONAZOLE 100 MG TAB PO SCH (09:14)
[2018-01-01] MEDS: LACTOBACILLUS ACIDOPHILUS TAB PO SCH ×3 (09:14→17:02)
[2018-01-01] MEDS: RIVAROXABAN 10 MG TAB PO SCH (09:14)
[2018-01-01] MEDS: DOCUSATE SODIUM 50 MG/SENNA 8.6 MG TAB PO SCH ×2 (09:14→21:00)
[2018-01-01] MEDS: cefTAZidime/AVIBACTAM INJ 0.94 GM in SODIUM CHLORIDE 0.9% INJ 50 ML IV SCH ×2 (09:15→21:55)
[2018-01-01] MEDS: MUPIROCIN 2% OINT 1 APPLIC/GM SYR EACH NARE SCH ×2 (09:15→21:55)
[2018-01-01] MEDS: predniSONE 20 MG TAB PO SCH ×2 (09:15→21:56)
[2018-01-01] MEDS: PREGABALIN 75 MG CAP PO SCH (09:15)
[2018-01-01] MEDS: SODIUM CHLORIDE 0.9% FLUSH 10 ML FLUSH IV FLUSH SCH ×2 (09:15→21:56)
[2018-01-01] MEDS: CHLORHEXIDINE 0.12% (ORAL KIT) 15 ML CUP MT SCH ×2 (09:16→20:00)
[2018-01-01] MEDS: VANCOMYCIN 25 MG/ML SOLN 100 ML BOTTLE PO SCH ×2 (09:17→21:56)
[2018-01-01] MEDS: NYSTATIN 100,000 U/GM PWD 15 GM BTL TOPICAL SCH ×2 (09:18→21:57)
--- NOTE | 2018-01-01 11:54 | HHI.NPPN ---
Subjective Complaints: Shortness of Breath Renal Failure: Acute Interval History She is awake. Renal function slightly better. Her BP is low this morning, given fluid bolus and HTN medications held. (Suad Lucas) Review of Systems Cardiovascular Cardiac: Edema (Suad Lucas) Objective Data Data Vital Signs Date Time Temp Pulse Resp B/P (MAP) Pulse Ox O2 Delivery O2 Flow Rate FiO2 01/01/18 10:00 100 Nasal Cannula 3.00 01/01/18 10:00 87 01/01/18 08:00 97.5 75 10 86/42 (57) 98 01/01/18 08:00 75 01/01/18 08:00 100 Nasal Cannula 3.00 01/01/18 06:00 70 01/01/18 06:00 100 Nasal Cannula 3.00 01/01/18 04:00 61 01/01/18 04:00 98.3 61 15 91/50 (64) 100 01/01/18 04:00 100 Nasal Cannula 3.00 01/01/18 02:00 100 Nasal Cannula 3.00 01/01/18 02:00 77 01/01/18 00:00 63 01/01/18 00:00 98.3 63 103/56 (72) 100 01/01/18 00:00 100 Nasal Cannula 3.00 12/31/17 22:00 73 12/31/17 22:00 Nasal Cannula 3.00 100 12/31/17 20:43 100 Nasal Cannula 3.00 12/31/17 20:00 76 12/31/17 20:00 100 Nasal Cannula 3.00 12/31/17 20:00 98.3 76 12 113/62 (79) 12/31/17 18:00 77 12/31/17 18:00 100 Nasal Cannula 3.00 12/31/17 16:00 73 12/31/17 16:00 97.8 73 17 118/62 (80) 100 12/31/17 16:00 100 Nasal Cannula 3.00 12/31/17 14:00 67 12/31/17 14:00 100 Nasal Cannula 3.00 12/31/17 12:00 98.0 59 24 107/64 (78) 12/31/17 12:00 100 Nasal Cannula 3.00 12/31/17 12:00 59 (Suad Lucas) -: 01/01/18 0337 01/01/18336 Tubes & Lines: Garcia (Suad Lucas) Physical Exam General Appearance: Well Developed, No Acute Distress, Comfortable, Obese (Suad Lucas) Throat Throat Exam: Oral Mucosa [place] & Moist (Suad Lucas) Pulmonary Resp Exam: Clear Bilaterally, Breath Sounds Equal, Rhonchi, Decreased Bases, Diminished Breath Sounds (Suad Lucas) Cardiology CV Exam: Good Perfusion, Irregular, Tachycardia (Suad Lucas) Gastrointestinal/Abdomen GI Exam: Soft, Non-Tender, Bowel Sounds Present GI Remarks super morbidly obese (Suad Lucas) Musculoskeletal MS Exam: Joints Intact, Normal Tone, Unable to Ambulate (Suad Lucas) Integumentary Skin Exam: Warm, Dry (Suad Lucas) Extremeties Extremities Exam: Pedal Pulses Palpable, Moderate Edema, Dependent Edema (Suad Lucas) Neurologic Neuro Exam: Alert, Awake, Oriented, Speech Clear (Suad Lucas) Psychiatric Psych Exam: Appropriate Responses (Suad Lucas) VTE Prophylaxis Device: SCDs (Suad Lucas) Assessment/Plan Discussed Condition With: Patient Assessment Summary: FREDDY/Acute Renal Failure, Fluid/Volume Overload, Hypertension Problem List: (1) FREDDY (acute kidney injury) ICD Codes: N17.9 - Acute kidney failure, unspecified Plan: Her best creatinine at discharge was 1.2 Elevated vancomycin levels suggest she my have suffered vancomycin induced nephrotoxicity May have suffered hypoperfusion injury, possibly ATN due to hypotension and sepsis. She also has UTI. Creatinine slightly better BP is low, hold AM lasix, and change to PO BID beginning tonight She will have a component of chronic edema Urine output is lower, have asked for RN to flush garcia, possibly replace if needed Repeat labs in AM Monitor urine output PO Fluids encouraged (2) Hypernatremia ICD Codes: E87.0 - Hyperosmolality and hypernatremia Plan: Improved (3) Respiratory failure ICD Codes: J96.90 - Respiratory failure, unspecified, unspecified whether with hypoxia or hypercapnia Plan: Extubated now Continue diuresis s/p bronchoscopy with multiple mucous plugs identified and suctioned. Also has tracheomalacia and bronchomalacia pulmonary following (4) UTI (urinary tract infection) ICD Codes: N39.0 - Urinary tract infection, site not specified Plan: ID is following. She is on Avycaz and PO Diflucan. Has MDRO Klebsiella Sp. Contact precautions (5) Pneumonia ICD Codes: J18.9 - Pneumonia, unspecified organism Status: Acute Plan: See above. ID is following. On IV Avycaz. (6) C. difficile colitis ICD Codes: A04.72 - Enterocolitis due to Clostridium difficile, not specified as recurrent Plan: PO vancomycin Contact precautions. (7) Anemia ICD Codes: D64.9 - Anemia, unspecified Plan: No evidence of iron deficiency Monitor hemoglobin (8) Afib ICD Codes: I48.91 - Unspecified atrial fibrillation Status: Chronic Plan: Intermittent tachycardia On PO Cardizem reduce metoprolol to 50 BID (Suad Lucas) Plan patient was seen and examined. Her urine output dropped today, likely due to hypotension. Given fluid bolus. Albumin ordered as well. Monitor BP and renal function. (Mohinder Lopez MD) Problem Qualifiers (1) Afib: Qualified Codes: I48.2 - Chronic atrial fibrillation Suad Lucas Jan 01, 2018 11:54 Mohinder Lopez MD Jan 01, 2018 20:42
--- NOTE | 2018-01-01 12:04 | HHI.PR ---
Subjective Remarks Extubated and on a N/C 3 L. Awake and responds well. Used BiPAP at HS Urine output was low and BP is borderline low. Objective Vital Signs Date Time Temp Pulse Resp B/P (MAP) Pulse Ox O2 Delivery O2 Flow Rate FiO2 01/01/18 10:00 100 Nasal Cannula 3.00 01/01/18 10:00 87 01/01/18 08:00 97.5 75 10 86/42 (57) 98 01/01/18 08:00 75 01/01/18 08:00 100 Nasal Cannula 3.00 01/01/18 06:00 70 01/01/18 06:00 100 Nasal Cannula 3.00 01/01/18 04:00 61 01/01/18 04:00 98.3 61 15 91/50 (64) 100 01/01/18 04:00 100 Nasal Cannula 3.00 01/01/18 02:00 100 Nasal Cannula 3.00 01/01/18 02:00 77 01/01/18 00:00 63 01/01/18 00:00 98.3 63 103/56 (72) 100 01/01/18 00:00 100 Nasal Cannula 3.00 12/31/17 22:00 73 12/31/17 22:00 Nasal Cannula 3.00 100 12/31/17 20:43 100 Nasal Cannula 3.00 12/31/17 20:00 76 12/31/17 20:00 100 Nasal Cannula 3.00 12/31/17 20:00 98.3 76 12 113/62 (79) 12/31/17 18:00 77 12/31/17 18:00 100 Nasal Cannula 3.00 12/31/17 16:00 73 12/31/17 16:00 97.8 73 17 118/62 (80) 100 12/31/17 16:00 100 Nasal Cannula 3.00 12/31/17 14:00 67 12/31/17 14:00 100 Nasal Cannula 3.00 I/O 12/31/17 12/31/17 12/31/17 01/01/18 01/01/18 01/01/18 07:00 15:00 23:00 07:00 15:00 23:00 Intake Total 250 ml 200 ml 187 ml Output Total 600 ml 575 ml 350 ml Balance -350 ml -375 ml -163 ml Intake Oral 250 ml 200 ml IV Total 187 ml Output Urine Total 600 ml 575 ml 350 ml Stool Total 0 ml # Bowel Movements 0 1 0 Result Diagram: 01/01/1833601/01/18336 Objective Remarks GENERAL: This is a Obese elderly W/F patient, Awake and oriented. CARDIOVASCULAR: Regular rate and rhythm without murmurs, gallops, or rubs. RESPIRATORY: Diffuse expiratory wheezes, diminished breath sounds left chest . Crackles at bases . GASTROINTESTINAL: Abdomen soft, non-tender,nondistended. Normal active bowel sounds MUSCULOSKELETAL: Extremities without clubbing, cyanosis,but has 2 + edema. NEURO: awake .1 + Reflexes. Assessment and Plan Assessment and Plan (1) Acute hypercapnic respiratory failure, Resolved Diagnosis: Principal (2) Hypoglycemia Diagnosis: Principal (3) BMI 50.0-59.9, adult Diagnosis: Principal (4) Afib Diagnosis: Secondary (5) Dyslipidemia Diagnosis: Secondary (6) Peripheral neuropathy Diagnosis: Secondary (7) Diabetes mellitus Diagnosis: Principal (8) Essential hypertension Diagnosis: Principal (9) Hiatal hernia Diagnosis: Secondary (10) Gastroesophageal reflux disease Diagnosis: Secondary (11) Chronic kidney disease (CKD) stage G3a/A3, moderately decreased glomerular filtration rate (GFR) between 45-59 mL/min/1.73 square meter and albuminuria creatinine ratio greater than 300 mg/g Diagnosis: Secondary (12) Left Lung atelectasis. Plan : 1 O2 at 3 L 2. Continue antibiotics.per ID 3 PT and OT 4. Duonebs qid. 5. BiPAP 15/8 and FIo2 30 % at HS 6. Add lasix 20 mg IV with albumin 12.5G IV today 6. Prednisone 20 mg bid 7. Labs in Francoise Dueñas MD Jan 01, 2018 12:04
[2018-01-01] MEDS ORDERED: ALBUMIN 25% INJ 50 ML IV ONE (12:15)
[2018-01-01] MEDS ORDERED: FUROSEMIDE 20 MG/2 ML VIAL IV PUSH ONE (12:15)
[2018-01-01] MEDS: FUROSEMIDE 40 MG TAB PO SCH (17:02)
[2018-01-01] MEDS ORDERED: FUROSEMIDE 40 MG TAB PO SCH (21:00)
[2018-01-01] MEDS: METOPROLOL TARTRATE 50 MG TAB PO SCH (21:00)
[2018-01-01] MEDS: FAMOTIDINE 20 MG TAB PO SCH (21:56)
[2018-01-02] VITALS (18 sets, daily range): BP systolic 84–118; BP diastolic 47–65; PULSE 86–105; RESP 10–19; TEMP 97.2–98.7; O2SAT 87–100
[2018-01-02] MEDS: RESP: SODIUM CHLORIDE 3% 4 ML NEB NEB SCH ×3 (01:51→08:11)
[2018-01-02] MEDS: RESP: ALBUTEROL 2.5 MG/3 ML NEB (PRN) NEB ×2 (01:51→06:13)
[2018-01-02] MEDS: CHLORHEXIDINE GLUCONATE 2 % 1 PACK (2 CLOTHS) TOP SCH (04:00)
--- NOTE | 2018-01-02 05:08 | RADRPT ---
EXAM DATE/TIME: 01/02/2018 02:24 [facility] COMPARISON: CHEST SINGLE AP, December 29, 2017, 3:16. INDICATIONS : Shortness of breath. MEDICAL HISTORY : Hypertension. Diabetes mellitus type II. Cardiovascular disease. SURGICAL HISTORY : None. ENCOUNTER: Subsequent ACUITY: 1 month PAIN SCORE: Non-responsive. LOCATION: Bilateral chest FINDINGS: Patient rotation towards the left. There is complete white out of the left hemithorax. The right ladarius ng is clear. CONCLUSION: Complete white out of the left hemithorax with no aerated lung seen on the left side. The right lung is clear. Dorian Vasquez MD on January 02, 2018 at 5:06 Board Certified Radiologist. This report was verified electronically.
[2018-01-02] MEDS: ARTIFICIAL TEARS OPTH SOLN 15 ML BTL EACH EYE SCH ×3 (06:15→22:50)
[2018-01-02] MEDS: CHLORHEXIDINE 0.12% (ORAL KIT) 15 ML CUP MT SCH ×2 (08:00→22:49)
[2018-01-02] MEDS: INSULIN NovoLIN REGULAR SUPPLEMENTAL SCALE SQ SCH ×4 (08:00→19:52)
[2018-01-02 08:09] LABS: AUTOMATED NEUTROPHIL # 11.6 TH/MM3 (1.8-7.7); BASOPHIL # 0.1 TH/MM3 (0-0.2); BASOPHIL % 0.5 % (0.0-2.0); EOSINOPHIL % 0.1 % (0.0-4.0); HEMOGLOBIN 7.7 GM/DL (11.6-15.3); LYMPH % 2.5 % (9.0-44.0); LYMPHOCYTE # 0.3 TH/MM3 (1.0-4.8); MEAN CELL VOLUME 93.1 FL (80.0-100.0); MEAN CORPUSCULAR HEMOGLOBIN 29.8 PG (27.0-34.0); MEAN PLATELET VOLUME 9.5 FL (7.0-11.0); MONO % 6.4 % (0.0-8.0); MONOCYTE # 0.8 TH/MM3 (0-0.9); NEUT % 90.5 % (16.0-70.0); PLATELET COUNT 154 TH/MM3 (150-450); RED BLOOD COUNT 2.58 MIL/MM3 (4.00-5.30); RED CELL DISTRIBUTION WIDTH 20.3 % (11.6-17.2); WHITE BLOOD COUNT 12.8 TH/MM3 (4.0-11.0)
[2018-01-02] MEDS: RESP: BUDESONIDE 0.5 MG/2 ML NEB NEB SCH ×2 (08:11→20:07)
[2018-01-02 08:29] LABS: CALCIUM 7.8 MG/DL (8.5-10.1); CREATININE 2.54 MG/DL (0.50-1.00)
[2018-01-02] MEDS: VANCOMYCIN 25 MG/ML SOLN 100 ML BOTTLE PO SCH ×2 (09:00→22:50)
[2018-01-02] MEDS: DOCUSATE SODIUM 50 MG/SENNA 8.6 MG TAB PO SCH ×2 (09:00→21:00)
[2018-01-02] MEDS: RIVAROXABAN 10 MG TAB PO SCH (09:00)
[2018-01-02] MEDS: METOPROLOL TARTRATE 50 MG TAB PO SCH ×2 (09:00→22:49)
[2018-01-02] MEDS: cefTAZidime/AVIBACTAM INJ 0.94 GM in SODIUM CHLORIDE 0.9% INJ 50 ML IV SCH ×2 (09:00→22:49)
[2018-01-02] MEDS: MUPIROCIN 2% OINT 1 APPLIC/GM SYR EACH NARE SCH ×2 (09:00→22:48)
[2018-01-02] MEDS: SERTRALINE HCL 100 MG TAB PO SCH (09:00)
[2018-01-02] MEDS: FUROSEMIDE 40 MG TAB PO SCH ×2 (09:00→22:48)
[2018-01-02] MEDS: PREGABALIN 75 MG CAP PO SCH (09:00)
[2018-01-02] MEDS: predniSONE 20 MG TAB PO SCH ×2 (09:00→22:49)
[2018-01-02] MEDS: NYSTATIN 100,000 U/GM PWD 15 GM BTL TOPICAL SCH ×2 (09:00→22:50)
[2018-01-02] MEDS: TAMSULOSIN HCL 0.4 MG CAP PO SCH (09:00)
[2018-01-02] MEDS: LACTOBACILLUS ACIDOPHILUS TAB PO SCH ×3 (09:00→18:00)
[2018-01-02] MEDS: SODIUM CHLORIDE 0.9% FLUSH 10 ML FLUSH IV FLUSH SCH ×2 (09:00→22:49)
[2018-01-02] MEDS: ASCORBIC ACID 500 MG TAB PO SCH ×2 (09:00→22:50)
[2018-01-02 09:19] LABS: BANDS 2 % (0-6); LYMPHOCYTES 1 % (9-44); METAMYELOCYTES 1 % (0-1); MONOCYTES 5 % (0-8); MYELOCYTES 4 % (0-0); POLYS (SEG NEUTROPHILS) 87 % (16-70)
[2018-01-02 09:21] LABS: STOMATOCYTES 1+ (NORMAL)
--- NOTE | 2018-01-02 10:40 | HHI.CCPN ---
Subjective Remarks/Hospital Course This is a 67-year-old female. Date of admission 12/13/2017. Past medical history includes elevated BMI, chronic asthma on chronic oxygen, atrial fibrillation/rate controlled, hypertension dyslipidemia. Today, patient presents to [facility] emergency department after [facility] at [facility]. She was just discharged from the hospital 12/10/2017 from [facility]. She is morbidly obese with multiple severe chronic illnesses and was both in respiratory distress and decreased responsiveness at the same time. She was noted to be hypoxic with saturations in the e 80s with nasal cannula. Was brought in on BiPAP. Accu-Chek was in the 30s when paramedics found her. Initial GCS was reported as 3. She received some D10 through a right arm PICC line but upon arrival staff felt that the PICC line was not working properly. Patient cannot provide any history or review of systems. She arrives critically ill Patient received D50 and a central line in the right internal jugular was placed by ED physician as no significant access was available. Chest x-ray revealed no acute cardiopulmonary findings. After being placed on BiPAP and receiving glucose patient's mentation is much improved and likely can be removed in the ICU. Less confused when evaluated in the ED. UA is positive. Previous history of Pseudomonas sensitive to aztreonam 12/14: Currently resting in bed in no acute distress on 3 L nasal cannula. Overnight on BiPAP/Venturi mask currently on 3 L nasal cannula. Difficult to arouse but once arousable does follow commands in all 4 extremities but weakly. Blood sugar 135. ABG currently pending 12/15: Afebrile. Resting in bed on nasal cannula. Arousable and following commands. Ill-definition due to hypo-tension. I will place arterial line secondary to body habitus. She does not appear septic. She is more awake and alert and attentive today as compared to yesterday. 12/16: Alert and oriented 3, responding to questions appropriately. Arterial line inability to play secondary to body habitus. Patient remained on phenylephrine during the night but now map remains less than 60 will resume phenylephrine infusion, and initiate Midodrine. 12/17: Hemodynamically stable. Phenylephrine infusion off since last night. MAP 80's. Patient alert and oriented, tolerating diet/breakfast. 12/18: Late entry note. Hemodynamically stable. Decrease FiO2 requirements currently on 2 L nasal cannula O2 saturation 97-98 %. RECONSULT 12/19: Patient became hemodynamically unstable this afternoon requiring reinitiation of phenylephrine infusion currently at 70 mcgs/minute. 12/20: Patient became somnolent last evening noted respiratory acidosis around 2 AM. Patient placed back on BiPAP. ID has been consulted for MDR Klebsiella. Patient awake and alert this afternoon, and denies pain. 12/21: Respiratory status much improved, and to remain on BiPAP at night while sleeping. ABGs improved. Patient hemodynamically stable no vasopressor requirements at this time. IV fluids discontinued. Patient tolerating a diet. 12/22: Patient remains a respiratory acidosis, slightly more lethargic today. Patient placed on BiPAP with exception of meals today. Repeat ABG pending this afternoon 12/23: ABG's and neuro status unchanged. Patient remains on BiPAP with exception of meals. Repeat ABG pending this afternoon. Ammonia level ordered. 12/24 Patient is on BIPAP 15/ with 40% . In Afib with RVR 12/25 No events overnight. Remains on BIPAP. Started on Lasix drip per renal 20mg /hr 12/26: Patient remains on BiPAP lethargic. Air entry is diminished on the left side. Chest x-ray shows complete whiteout on the left side with mediastinal shift to the left indicating mucus plugging and left lung collapse. Will proceed with emergency intubation and bronchoscopy (I discussed with Dr. Baca -he will do bronchoscopy at 11:30 AM today) 12/27: Intubated yesterday for severe left lung atelectasis. Underwent bronchoscopy by Dr. Baca. Bronchoscopy showed tracheomalacia and bronchomalacia involving right mainstem bronchi, left mainstem and left upper lobe bronchi. Significant thick mucoid secretions in right upper lobe bronchi, left upper bronchus and also left lower lobe. Moderate endobronchitis. Chest x -ray shows moderate improvement in left upper lobe but persistent dense consolidation middle and lower lung zones. Check CT of the chest stat today 12/28: Afebrile. FiO2 at 30% awake alert and awake. Plan extubation today passes parameters.. 12/29: Afebrile. Extubated yesterday without complications to BiPAP currently at 12/5 at 35%. Tolerated taking pills yesterday. Somewhat lethargic this a.m. but this appears to be her baseline Subjective 12/30: Afebrile. Currently on room air. Tolerating diet. Remove central line today if furosemide drip changed to 40 mg IV [address] Archer. 12/31 Patient is on 3L oxygen. Awake, alert. Afebrile. Off Lasix drip. 01/01 No events overnight. On 3L oxygen. Off BIPAP. Afebrile. 321: Patient has diminished breath sounds left lung, and the left lung is is rc out on CXR with midline shift indicating complete atelectasis. I discussed with her need for bronchoscopy following intubation. Patient is willing for intubation and bronchoscopy. She does not want trach IF she can be extubated, if not extubated in 4-5 days patient is willing to get trach. I gave her the option for palliative care and comfort measures which patient refused. Discussed with Dr. Michelle who is covering fro Dr. Baca Objective Vital Signs Date Time Temp Pulse Resp B/P (MAP) Pulse Ox O2 Delivery O2 Flow Rate FiO2 01/02/18 08:12 97 Nasal Cannula 2.00 01/02/18 06:00 99 01/02/18 04:00 97.5 14 90/57 (68) 01/02/18 02:00 30 Intake and Output 01/02/18 01/02/18 01/03/18 08:00 16:00 00:00 Intake Total 167 ml Output Total 375 ml Balance -208 ml Result Diagram: 01/02/18 0550 01/02/18 0550 Imaging Last Impressions Chest X-Ray 12/29/17 0600 Signed Impressions: Service Date/Time: Friday, December 29, 2017 03:16 - CONCLUSION: 1. Improving aeration in the right base with persistent left basilar consolidation/ effusion. Stable cardiomegaly. 2. Interval removal of the endotracheal and nasogastric tubes. Jakob Plunkett MD Chest CT 12/27/17 0000 Signed Impressions: Service Date/Time: December 10:29 - CONCLUSION: 1. Basilar atelectasis and small pleural effusions, increased from November 26. Mild perihilar groundglass opacity present most characteristic of minimal pulmonary edema. 2. Support apparatus as above. Moderate coronary calcifications. Sachin Gonzalez MD Abdomen/Pelvis CT 12/20/17 0000 Signed Impressions: Service Date/Time: December 21:20 - CONCLUSION: Stable appearance to the CT abdomen/pelvis were compared to 11/26/17. Right double-J stent in place, multiple gallstones, left renal mass, left lateral ventral hernia. Dorian Vasquez MD Upper Extremity Ultrasound 12/13/17 0000 Signed Impressions: Service Date/Time: December 13:43 - CONCLUSION: 1. No deep venous thrombosis in the left upper extremity. 2. Superficial thrombosis of the right cephalic vein. El Nuñez MD Lower Extremity Ultrasound 12/13/17 0000 Signed Impressions: Service Date/Time: December 14:26 - CONCLUSION: Normal examination. Domingo Calderon MD Head CT 12/13/17 0000 Signed Impressions: Service Date/Time: December 13:30 - CONCLUSION: Normal examination. Domingo Calderon MD Objective Remarks GENERAL: 67-year-old female lying in bed SKIN: Warm and dry. No rash HEAD: Atraumatic. Normocephalic. EYES: Pupils equal and round about 3 mm bilaterally and reactive. No scleral icterus. No injection or drainage. ENT: No nasal bleeding or discharge. On NC NECK: Trachea midline. No JVD. CARDIOVASCULAR: IRR. Distant heart tones. S1, S2. No S4. Without murmur RESPIRATORY: Breath sounds are diminished in the left chest. GASTROINTESTINAL: Abdomen soft, obese, nontender. Hypoactive bowel sounds are appreciated MUSCULOSKELETAL: Extremities with 1+ bilateral upper and lower extremity edema NEUROLOGICAL: Alert awake oriented to person and place. motor grossly within normal limits. Date of Insertion: Dec 13, 2017 Line: Central Venous Catheter Side: Right Location: Internal, Jugular A/P Assessment and Plan Neuro/Psych: Acute toxic metabolic encephalopathy likely secondary to hypoglycemia/CO2 retention ( improved) Chronic benzodiazepine use Depression disorder NOS Diabetic neuropathy Chronic pain syndrome with chronic narcotic use Placed on propofol for sedation after intubation continue hydrocodone/acetaminophen 5/325 1 tablet every 6 hours as needed pain Continue sertraline 100 mg p.o. daily for depression Continue pregabalin 75 mg p.o. daily for peripheral neuropathy CT brain 12/13 revealed no acute intracranial findings Acetaminophen 650 mg p.o. every 6 hours as needed fever Alprazolam 1 mg twice daily as needed anxiety CV: Atrial fibrillation with RVR, now rate controlled Hypertension Fluid overload Hold Lopressor and Cardizem for borderline low BP. Monitor HR and BP keep MAP>65mmHg 2D echocardiogram 12/02 - EF 50-55%. The left atrial size is mildly dilated. The right atrial size is moderately dilated. Trace TR Resp: Acute hypoxic, hypercapnic respiratory failure Recurrent left lung collapse/mucus plugging Bronchomalacia APOLONIA/OHS History recurrent MRSA pneumonia Status post intubation and bronchoscopy 12/26/2017 and extubated 12/28, bronchoscopy showed thick mucoid secretions in left upper lobe left lower lobe and right upper lobe, Significant tracheomalacia and bronchomalacia involving the right and left main stem bronchi Now with recurrent collapse of the left lung. Plan for intubation and bronchoscopy again today 01/02/2018 If she cannot be weaned in the next 4-5 days patient is agreeable for tracheostomy Dr. Poon pulmonary following. Discussed with Dr. Michelle who is covering Albuterol/ipratropium aerosols every 4 hours with albuterol aerosols every 2 hours as needed dyspnea Continue budesonide 0.5 mg/2 mL 1 inhalation s every 12 hours Continue Prednisone 20mg BID GI: BMI greater than 40 Gastroesophageal reflux disease Hypoalbuminemia NPO, start tube feeds in 24 hours Famotidine for GI prophylaxis. Patient is on famotidine 20 mg p.o. daily at home Docusate sodium/senna 1 tablet twice daily for bowel regimen. Patient is on senna 8.6 mg twice daily at home Having regular bowel movement Continue ondansetron 4 mg every 6 hours as needed nausea Renal//FEN: Acute on chronic kidney disease J stent placement Hypokalemia Monitor renal function, I/O's, avoid nephrotoxins Solitario catheter to maintain patency with recent pyelonephritis/GJ placement. On Lasix 40mg TID, Renal is following, Cr: 2.5 today Outpatient J stent removal should be scheduled by urology that was placed during last hospitalization 12/02 12/20 CT abd/pelvis: No hydronephrosis Continue tamsulosin 0.4 mg daily Endo: Diabetes mellitus Acute hypoglycemia-resolved Sliding scale insulin with Novolin R with Accu-Cheks to maintain euglycemia every 6 hours low regimen Heme: Leukocytosis Normocytic anemia Chronic Rivaroxaban use Right cephalic vein superficial thrombus Monitor CBC Continue with rivaroxaban 10 mg daily ID: Urinary tract infection/MDR Klebsiella History of MRSA History of C. difficile Blood cx 12/20 Leni avila Currently on PO vancomycin , ceftazidime/avibactam and fluconazole per ID. 1 dose of vanc given 12/26 Monitor for signs of infections (Fever, WBC) Pertinent cultures Urine Legionella pneumococcal antigens negative Urine culture 12/13 Klebsiella ESBL positive positive Blood culture 12/20: LENI GREWAL Access -Peripheral IV's Prophylaxis -GI -famotidine -DVT -SCD/rivaroxaban CCT 35. Acute change in her clinical condition with left lung collapse and requirement for intubation and bronchoscopy. I discussed with patient extensively. She wants to be intubated and then tried to be extubated if not been able in the next 4-5 days she is agreeable to tracheostomy. I also offered palliative options, patient wants to be full code and wants aggressive care including tracheostomy and PEG tube placement if required Yoandy Amador MD Jan 02, 2018 10:40
[2018-01-02] MEDS ORDERED: MIDAZOLAM HCL 5 MG/ML VIAL (1 ML) ONE ×2 (10:57)
[2018-01-02] MEDS ORDERED: ETOMIDATE 40 MG/20 ML VIAL ONE (10:57)
[2018-01-02] MEDS ORDERED: ROCURONIUM INJ 50 MG/5 ML VIAL ONE (10:58)
[2018-01-02] MEDS ORDERED: TERBUTALINE INJ 1 MG/ML AMP SQ PRN (11:00)
--- NOTE | 2018-01-02 11:18 | PD.PROCEDR ---
Procedure Note Procedure Procedure Note for endotracheal intubation Indication: Complete left lung collapse, with midline shift, need for bronchoscopy INTUBATION: The patient was put in optimal position for the procedure. Rapid sequence intubation was initiated by me using 20 milligrams of etomidate IV and 5 milligrams of Versed IV. NM blockade with 50 mg IV Rocuronium. DL with Mac 4 blade, Grade 1 view. The patient was intubated with a 8.0 cuffed endotracheal tube. Tube placement was confirmed by visualization of the tube and balloon passing through the cords, capnometry and subsequent chest x-ray. Breath sounds were heard diminished in left lung west similar to pre-intubation. No breath sounds over stomach. Patient tolerated procedure well. Yoandy Amador MD Jan 02, 2018 11:18
[2018-01-02] MEDS ORDERED: PROPOFOL 500 MG/50 ML INJ 50 ML ONE (11:19)
--- NOTE | 2018-01-02 12:05 | HHI.NPPN ---
Subjective Complaints: Shortness of Breath Renal Failure: Acute Interval History She is sleepy today. Has been hypotensive. Creatinine slightly higher today. (Suad Lucas) Review of Systems Cardiovascular Cardiac: Edema (Suad Lucas) Objective Data Data Vital Signs Date Time Temp Pulse Resp B/P (MAP) Pulse Ox O2 Delivery O2 Flow Rate FiO2 01/02/18 11:21 100 50 01/02/18 08:12 97 Nasal Cannula 2.00 01/02/18 06:00 99 01/02/18 04:00 97.5 88 14 90/57 (68) 100 01/02/18 04:00 88 01/02/18 02:00 90 01/02/18 02:00 100 30 01/02/18 00:00 98.5 86 10 84/49 (61) 100 01/02/18 00:00 86 01/01/18 22:00 95 01/01/18 21:42 100 Nasal Cannula 3.00 01/01/18 20:00 94 01/01/18 20:00 96.9 94 13 106/58 (74) 100 01/01/18 20:00 100 Nasal Cannula 2.00 01/01/18 18:00 94 01/01/18 18:00 100 Nasal Cannula 3.00 01/01/18 16:00 97.6 88 12 107/61 (76) 100 01/01/18 16:00 88 01/01/18 16:00 100 Nasal Cannula 3.00 01/01/18 14:00 85 01/01/18 14:00 100 Nasal Cannula 3.00 01/01/18 12:21 96 Nasal Cannula 3.00 (Suad Lucas) -: 01/02/18 0550 01/02/18 0550 Imaging Last 72 hours Impressions Chest X-Ray 01/02/18 0000 Signed Impressions: Service Date/Time: Tuesday, January 02, 2018 02:24 - CONCLUSION: Complete white out of the left hemithorax with no aerated lung seen on the left side. The right lung is clear. Dorian Vasquez MD Tubes & Lines: Garcia (Suad Lucas) Physical Exam General Appearance: Well Developed, No Acute Distress, Comfortable, Sleeping, Obese (Suad LucasP) Throat Throat Exam: Oral Mucosa [place] & Moist (Suad Lucas [employer]) Pulmonary Resp Exam: Clear Bilaterally, Breath Sounds Equal, No Distress, Rhonchi, Decreased Bases, Diminished Breath Sounds (Suad Lucas [employer]) Cardiology CV Exam: Good Perfusion, Irregular, Tachycardia (Suad Lucas [employer]) Gastrointestinal/Abdomen GI Exam: Soft, Non-Tender, Bowel Sounds Present GI Remarks super morbidly obese (Suad LucasP) Musculoskeletal MS Exam: Joints Intact, Normal Tone, Unable to Ambulate (Suad Lucas [employer]) Integumentary Skin Exam: Warm, Dry (Suad Lucas) Extremeties Extremities Exam: Pedal Pulses Palpable, Moderate Edema, Dependent Edema (Suad Lucas [employer]) Neurologic Neuro Exam: Alert, Awake, Oriented, Speech Clear (Suad LucasP) Psychiatric Psych Exam: Appropriate Responses (Suad Lucas) VTE Prophylaxis Device: SCDs (Suad Lucas) Assessment/Plan Discussed Condition With: Patient Assessment Summary: FREDDY/Acute Renal Failure, Fluid/Volume Overload, Hypertension Problem List: (1) FREDDY (acute kidney injury) ICD Codes: N17.9 - Acute kidney failure, unspecified Plan: Her best creatinine at discharge was 1.2 Initially she my have suffered vancomycin induced nephrotoxicity More recently has been hypotensive, possibly suffered hypoperfusion injury, possibly ATN due to hypotension, also due to sepsis and UTI. Creatinine slightly worse Diuretics include Lasix po BID, given IV overnight x 1 She will have a component of chronic edema. Ordered albumin She is non oliguric, has garcia Repeat labs in AM Monitor urine output PO Fluids encouraged (2) Hypernatremia ICD Codes: E87.0 - Hyperosmolality and hypernatremia Plan: Improved (3) Respiratory failure ICD Codes: J96.90 - Respiratory failure, unspecified, unspecified whether with hypoxia or hypercapnia Plan: s/p Extubation Continue diuresis s/p bronchoscopy with multiple mucous plugs identified and suctioned. Also has tracheomalacia and bronchomalacia pulmonary following (4) UTI (urinary tract infection) ICD Codes: N39.0 - Urinary tract infection, site not specified Plan: ID is following. She is on Avycaz, off Diflucan. Has MDRO Klebsiella Sp. Contact precautions (5) Pneumonia ICD Codes: J18.9 - Pneumonia, unspecified organism Status: Acute Plan: See above. ID is following. On IV Avycaz. (6) C. difficile colitis ICD Codes: A04.72 - Enterocolitis due to Clostridium difficile, not specified as recurrent Plan: PO vancomycin Contact precautions. (7) Anemia ICD Codes: D64.9 - Anemia, unspecified Plan: No evidence of iron deficiency Monitor hemoglobin (8) Afib ICD Codes: I48.91 - Unspecified atrial fibrillation Status: Chronic Plan: rate controlled but is hypotensive On PO Cardizem (has been held), also on metoprolol to 50 BID (hold PRN hypotension) (Suad Lucas) Plan patient was seen and examined. Agree with above assessment and plan. Prognosis is guarded. (Mohinder Lopez MD) Problem Qualifiers (1) Afib: Qualified Codes: I48.2 - Chronic atrial fibrillation Suad Lucas Jan 02, 2018 12:05 Mohinder Lopez MD Jan 02, 2018 20:57
--- NOTE | 2018-01-02 13:03 | RADRPT ---
EXAM DATE/TIME: 01/02/2018 12:33 [facility] COMPARISON: CHEST SINGLE AP, January 02, 2018, 2:24. INDICATIONS : Post intubation. MEDICAL HISTORY : Hypertension. Diabetes mellitus type II. Cardiovascular disease. SURGICAL HISTORY : None. ENCOUNTER: Subsequent ACUITY: 1 month PAIN SCORE: Non-responsive. LOCATION: Bilateral chest FINDINGS: Status post placement of an endotracheal tube. The tip is at the orifice of the left mainstem bronchu s. Recommend pullback by 3 cm. There is complete opacification left hemithorax which is stable and un changed compared to the earlier study. The right lung remains grossly clear and well-aerated. There i s mediastinal shift to the left. Heart size appears to be large but stable. There is no pneumothorax. CONCLUSION: 1. The endotracheal tube tip is at the orifice of the left mainstem bronchus. Recommend pullback by 3 cm. 2. No change in the complete opacification of the left hemithorax. Sanya Carter MD on January 02, 2018 at 13:01 Board Certified Radiologist. This report was verified electronically.
--- NOTE | 2018-01-02 13:48 | HHI.IDPN ---
Subjective Subjective Remarks Patient is a 67-year-old female, resides in the senior care, brought into the hospital after she was found unresponsive. She had a recent hospitalization where she was diagnosed to have sepsis related to complicated UTI. During that hospitalization she underwent stent placement. She also had C. difficile colitis during that admission. Patient states that she uses a BiPAP machine in the senior care usually when she is sleeping. She is nonambulatory. Denies any significant cough or congestion. No chest pain. There was no mention of any fever or chills or sweats. When she also came to the hospital this time she was on pressors for hypotension. She improved clinically and her hemodynamics stabilize. However yesterday she went hypotensive again, an infectious disease consultation has been requested to evaluate the patient. Notes reviewed Discussed with CHILO Souza ok Extubated 12/28, reintubated today Chest x-ray with white out of the left log and Had bronchoscopy done Initial Bronch C/S negative BP ok WBC slightly higher today Stool ok Antibiotics Avycaz - to finish 01/03 PO Vanco - tapering Current Medications Medications (Trade) Dose Ordered Sig/Mirta Route Start Time Stop Time Status Last Admin (NS Flush) 2 ml UNSCH PRN IV FLUSH 12/13/17 13:30 (NS Flush) 2 ml BID IV FLUSH 12/13/17 21:00 01/01/18 21:56 (Zofran Inj) 4 mg Q6H PRN IV PUSH 12/13/17 13:30 Miscellaneous Information 1 Q361D XX 12/13/17 13:30 12/13/17 13:30 (Chlorhexidine 2% Cloth) 3 pack Taper DAILY@04 TOP 12/14/17 04:00 12/10/18 03:59 12/31/17 04:00 (Chlorhexidine 2% Cloth) 3 pack UNSCH PRN TOP 12/13/17 13:30 (Zelda-Colace) 1 tab BID PO 12/13/17 21:00 01/01/18 09:14 (Milk Of Magnesia Liq) 30 ml Q12H PRN PO 12/13/17 13:30 (Senokot) 17.2 mg Q12H PRN PO 12/13/17 13:30 (Dulcolax Supp) 10 mg DAILY PRN RECTAL 12/13/17 13:30 (Lactulose Liq) 30 ml DAILY PRN PO 12/13/17 13:30 (Xanax) 1 mg BID PRN PO 12/13/17 13:30 (Pulmicort Respule Neb) 0.5 mg Q12HR NEB NEB 12/13/17 20:00 01/02/18 08:11 (Lyrica) 75 mg DAILY PO 12/14/17 09:00 01/01/18 09:15 (Zoloft) 100 mg DAILY PO 12/14/17 09:00 01/01/18 09:14 (Vitamin C) 500 mg BID PO 12/13/17 21:00 01/01/18 21:56 (Lactinex) 1 tab TID PO 12/13/17 18:00 01/01/18 17:02 (D50w (Vial) Inj) 50 ml UNSCH PRN IV PUSH 12/13/17 13:30 12/19/17 22:25 (Glucagon Inj) 1 mg UNSCH PRN OTHER 12/13/17 13:30 (Pill Splitter) 1 ea UNSCH PRN OTHER 12/13/17 13:30 (Xarelto) 10 mg DAILY PO 12/14/17 09:00 01/01/18 09:14 (Mycostatin Powder) 1 applic Q12HR TOPICAL 12/13/17 21:00 01/01/18 21:57 (Trandate Inj) 10 mg Q1HR PRN IV PUSH 12/13/17 17:00 (Nitroglycerin 2% Oint) 2 inch Q6HR PRN TOPICAL 12/13/17 18:00 (Apresoline Inj) 10 mg Q1HR PRN IV PUSH 12/13/17 17:00 (Brethine Inj) 1 mg UNSCH PRN SQ 12/15/17 10:15 (Bactroban Nasal 2% Oint) Taper BID EACH NARE 12/15/17 21:00 12/11/18 20:59 01/01/18 21:55 Ceftazidime/ Avibactam 0.94 gm/ Sodium Chloride 50 ml @ 25 mls/hr Q12HR IV 12/20/17 13:00 01/03/18 23:00 01/01/18 21:55 (Cardizem) 60 mg Q6HR PO 12/24/17 12:00 Future Hold 01/01/18 01:50 (Deltasone) 20 mg BID PO 12/24/17 21:00 01/01/18 21:56 (Peridex 0.12% Liq) 15 ml BID@08,20 MT 12/26/17 20:00 01/01/18 09:16 (Tears Naturale Opth Soln) 1 drop Q8HR EACH EYE 12/28/17 14:00 01/02/18 06:15 (Albuterol Neb) 2.5 mg Q2HR NEB PRN NEB 12/28/17 11:30 01/02/18 06:13 (Flomax) 0.4 mg DAILY PO 12/29/17 09:00 01/01/18 09:14 (Tylenol 650 Mg/ 20 ml Liq) 650 mg Q6H PRN PO 12/28/17 11:45 (NovoLIN R SUPPLEMENTAL SCALE) 1 ACHS SQ 12/29/17 12:00 01/01/18 21:57 (Pepcid) 20 mg HS PO 12/29/17 21:00 01/01/18 21:56 (Maben 5-325 Mg) 1 tab Q4H PRN PO 12/29/17 08:30 12/29/17 10:25 (Vancomycin 25 Mg/ml Liq) 125 mg BID PO 12/31/17 21:00 01/01/18 21:56 (Lopressor) 50 mg Q12HR PO 01/01/18 21:00 (Lasix) 40 mg BID@,18 PO 01/01/18 18:00 01/01/18 17:02 Phenylephrine HCl 40 mg/Dextrose 500 ml @ 30 mls/hr TITRATE PRN IV 01/02/18 12:00 (Brethine Inj) 1 mg UNSCH PRN SQ 01/02/18 11:00 Propofol 100 ml @ 4.176 mls/ hr TITRATE PRN IV 01/02/18 11:30 Lines Line no evidence of infection Past Medical History Chronic respiratory failure secondary to APOLONIA, OHS and bronchial asthma Atrial fibrillation rate controlled Hypertension Dyslipidemia Gastroesophageal reflux disease Elevated BMI greater than 50 Recurrent MRSA pneumonia Depression Constipation Past Surgical History JJ stent placement by urology Hiatal hernia surgery Appendectomy Percutaneous tracheostomy by Dr. Mullins since decannulated Allergies: Coded Allergies: penicillin G (Unverified Allergy, Severe, 05/29/17) Objective . Vital Signs Date Time Temp Pulse Resp B/P (MAP) Pulse Ox O2 Delivery O2 Flow Rate FiO2 01/02/18 11:21 100 50 01/02/18 08:12 97 Nasal Cannula 2.00 01/02/18 06:00 99 01/02/18 04:00 97.5 88 14 90/57 (68) 100 01/02/18 04:00 88 01/02/18 02:00 90 01/02/18 02:00 100 30 01/02/18 00:00 98.5 86 10 84/49 (61) 100 01/02/18 00:00 86 01/01/18 22:00 95 01/01/18 21:42 100 Nasal Cannula 3.00 01/01/18 20:00 94 01/01/18 20:00 96.9 94 13 106/58 (74) 100 01/01/18 20:00 100 Nasal Cannula 2.00 01/01/18 18:00 94 01/01/18 18:00 100 Nasal Cannula 3.00 01/01/18 16:00 97.6 88 12 107/61 (76) 100 01/01/18 16:00 88 01/01/18 16:00 100 Nasal Cannula 3.00 01/01/18 14:00 85 01/01/18 14:00 100 Nasal Cannula 3.00 . Laboratory Tests Test 12/31/17 20:35 01/01/18 03:37 01/02/18 05:50 White Blood Count 11.1 TH/MM3 9.8 TH/MM3 12.8 TH/MM3 Red Blood Count 2.71 MIL/MM3 2.49 MIL/MM3 2.58 MIL/MM3 Hemoglobin 7.8 GM/DL 7.4 GM/DL 7.7 GM/DL Hematocrit 24.9 % 22.8 % 24.0 % Mean Corpuscular Volume 92.0 FL 91.8 FL 93.1 FL Mean Corpuscular Hemoglobin 28.8 PG 29.8 PG 29.8 PG Mean Corpuscular Hemoglobin Concent 31.4 % 32.5 % 32.0 % Red Cell Distribution Width 20.0 % 20.3 % 20.3 % Platelet Count 162 TH/MM3 148 TH/MM3 154 TH/MM3 Mean Platelet Volume 9.1 FL 9.3 FL 9.5 FL Neutrophils (%) (Auto) 92.1 % 90.5 % Lymphocytes (%) (Auto) 2.6 % 2.5 % Monocytes (%) (Auto) 4.9 % 6.4 % Eosinophils (%) (Auto) 0.1 % 0.1 % Basophils (%) (Auto) 0.3 % 0.5 % Neutrophils # (Auto) 9.0 TH/MM3 11.6 TH/MM3 Lymphocytes # (Auto) 0.3 TH/MM3 0.3 TH/MM3 Monocytes # (Auto) 0.5 TH/MM3 0.8 TH/MM3 Eosinophils # (Auto) 0.0 TH/MM3 0.0 TH/MM3 Basophils # (Auto) 0.0 TH/MM3 0.1 TH/MM3 CBC Comment AUTO DIFF AUTO DIFF Differential Comment AUTO DIFF CONFIRMED FINAL DIFF MANUAL Stomatocytes 2+ 1+ Differential Total Cells Counted 100 Neutrophils % (Manual) 87 % Band Neutrophils % 2 % Lymphocytes % 1 % Monocytes % 5 % Neutrophils # (Manual) 12.0 TH/MM3 Metamyelocytes 1 % Myelocytes 4 % Platelet Estimate NORMAL Platelet Morphology Comment NORMAL Basophilic Stippling MOD Laboratory Tests Test 01/01/18 03:37 01/02/18 05:50 Blood Urea Nitrogen 42 MG/DL 45 MG/DL Creatinine 2.47 MG/DL 2.54 MG/DL Random Glucose 119 MG/DL 128 MG/DL Total Protein 5.0 GM/DL Albumin 2.5 GM/DL Calcium Level 7.8 MG/DL 7.8 MG/DL Alkaline Phosphatase 70 U/L Aspartate Amino Transf (AST/SGOT) 8 U/L Alanine Aminotransferase (ALT/SGPT) 11 U/L Total Bilirubin 0.4 MG/DL Sodium Level 145 MEQ/L 145 MEQ/L Potassium Level 4.2 MEQ/L 4.1 MEQ/L Chloride Level 108 MEQ/L 108 MEQ/L Carbon Dioxide Level 26.0 MEQ/L 24.0 MEQ/L Anion Gap 11 MEQ/L 13 MEQ/L Estimat Glomerular Filtration Rate 19 ML/MIN 19 ML/MIN Imaging Chest X-Ray 01/02/18 0000 Signed Impressions: Service Date/Time: Tuesday, January 02, 2018 12:33 - CONCLUSION: 1. The endotracheal tube tip is at the orifice of the left mainstem bronchus. Recommend pullback by 3 cm. 2. No change in the complete opacification of the left hemithorax. Sanya Carter MD Chest X-Ray 01/02/18 0000 Signed Impressions: Service Date/Time: Tuesday, January 02, 2018 02:24 - CONCLUSION: Complete white out of the left hemithorax with no aerated lung seen on the left side. The right lung is clear. Dorian Vasquez MD Chest X-Ray 12/28/17 0600 Signed Impressions: Service Date/Time: Thursday, December 28, 2017 03:36 - CONCLUSION: 1. Improving aeration in the right base with resolving consolidation/effusion. 2. Persistent left basilar consolidation/effusion with volume loss. 3. Stable cardiomegaly. Stable position of life support tubes. Jakob Plunkett MD Chest X-Ray 12/27/17 0000 Signed Impressions: Service Date/Time: December 07:54 - CONCLUSION: 1. Stable tubes and lines. 2. Improved aeration in the left upper lung zone with extensive residual airspace disease and volume loss in the left lung. Riccardo Stack MD Chest CT 12/27/17 0000 Signed Impressions: Service Date/Time: December 10:29 - CONCLUSION: 1. Basilar atelectasis and small pleural effusions, increased from November 26. Mild perihilar groundglass opacity present most characteristic of minimal pulmonary edema. 2. Support apparatus as above. Moderate coronary calcifications. Sachin Gonzalez MD Chest X-Ray 12/26/17 0000 Signed Impressions: Service Date/Time: Tuesday, December 26, 2017 13:19 - CONCLUSION: 1. There is atelectasis of the left lung with an unknown amount of pleural effusion. There is mediastinal shift from right to left. There is basilar dependent airspace disease in the right lung that is similar to December 26. Sachin Gonzalez MD Chest X-Ray 12/26/17 0000 Signed Impressions: Service Date/Time: Tuesday, December 26, 2017 08:41 - CONCLUSION: Endotracheal tube tip 2-3 cm above the makeda in good position. Persistent opacification left hemithorax. Worsening diffuse infiltrates consistent with probable severe pulmonary vascular congestion or pneumonia. Elvin Childs MD Chest X-Ray 12/26/17 0000 Signed Impressions: Service Date/Time: Tuesday, December 26, 2017 03:28 - CONCLUSION: Interval complete opacification of the left hemithorax with volume loss and shift of the mediastinal structures towards that side. This raises concern for mucous plugging of the left mainstem bronchus. Dorian Wilson Jr., MD Chest X-Ray 12/21/17 0600 Signed Impressions: Service Date/Time: Thursday, December 21, 2017 04:24 - CONCLUSION: Mild bibasilar consolidation and small left pleural effusion without significant change. Perry Neri MD Abdomen/Pelvis CT 12/20/17 0000 Signed Impressions: Service Date/Time: December 21:20 - CONCLUSION: Stable appearance to the CT abdomen/pelvis were compared to 11/26/17. Right double-J stent in place, multiple gallstones, left renal mass, left lateral ventral hernia. Dorian Vasquez MD Upper Extremity Ultrasound 12/13/17 0000 Signed Impressions: Service Date/Time: December 13:43 - CONCLUSION: 1. No deep venous thrombosis in the left upper extremity. 2. Superficial thrombosis of the right cephalic vein. El Nuñez MD Lower Extremity Ultrasound 12/13/17 0000 Signed Impressions: Service Date/Time: December 14:26 - CONCLUSION: Normal examination. Domingo Calderon MD Head CT 12/13/17 0000 Signed Impressions: Service Date/Time: December 13:30 - CONCLUSION: Normal examination. Domingo Calderon MD Physical Exam GENERAL: Sedated on the vent, NAD SKIN: Cool and dry. No generalized rash HEAD: Atraumatic. Normocephalic. No temporal wasting, or tenderness. EYES: [place] conjunctiva. No petechia or hemorrhage. Pupils equal, round and reactive to light. No scleral icterus. EARS, NOSE AND THROAT: Nose without bleeding or purulent nasal discharge. Moist mucosa NECK: Trachea midline. Supple and not tender, no meningeal signs CARDIOVASCULAR: Regular rate and rhythm. No murmurs, rubs or gallops heard RESPIRATORY: Decreased breath sounds R base, decreased whole L side ABDOMEN: Soft, obese, no reaction to palpation, nondistended. Bowel sounds present and normoactive. EXTREMITIES: No clubbing, cyanosis. Has bilateral pedal edema. No calf tenderness. . NEUROLOGICAL: Sedated PSYCH: Unable to assess LINE: Line no evidence of infection Assessment & Plan Remarks IMPRESSION UTI, with Klebsiella Kleb MDR CRE ESBL+ Previous episode of complicated UTI,, has stent in place, had obstruction - CT A/P looks ok, stent in place, no hydro Known APOLONIA Respiratory failure, chronically on BIPAP mask - CXR with white out L, due to plugging, atelectasis - ?PNA - bronch C/S negative - extubated 12/28, reintubated 01/02 - has tracheomalacia seen on bronchoscopy Obesity Renal insufficiency, chronic Allergy to PCN, tolerates Cephalosporins Hx C diff colitis - recent episode during last admission RECOMMENDATION Continue Avycaz to cover CRE GNR in UC - end date ordered - to finish 01/03 Continue po Vanco, decrease dose to BID, taper weekly Repeat sputum C/S Monitor pulmonary status Monitor progress Will likely need trach I will be off January 03- Other ID covering in my absence Marely Plunkett MD Jan 02, 2018 13:47
[2018-01-02] MEDS ORDERED: ROCURONIUM INJ 50 MG/5 ML VIAL IV ONE (16:30)
[2018-01-02] MEDS ORDERED: fentaNYL CITRATE 250 MCG/5 ML AMP IV PUSH ONE (16:30)
--- NOTE | 2018-01-02 17:35 | PD.PROCEDR ---
Procedure Note Procedure PROCEDURE: Fiberoptic bronchoscopy with therapeutic lavage ANESTHESIA: IV propofol gtt, rocuronium 50 mg IV, Fentanyl 100 mcg IV The patient is intubated and on ventilator support. PREOP DIAGNOSIS: Atelectasis left lung. POSTOP DIAGNOSIS: Same PROCEDURE: The Olympus fiberoptic bronchoscope was advanced via the endotracheal tube into the trachea. Previously known tracheomalacia noted again, and also bronchomalacia of bilateral mainstem bronchus. The left left mainstem bronchus showed thick mucoid secretions. These were suctioned out with multiple lavages. Left mainstem also showed bronchomalacia. Left upper and lower lobe lobe bronchi had significant mucus plugging and bronchomalacia. These were suctioned out. These bronchi were very narrow and collapsing to suctioning. Multiple saline washings and lavage done. There was no significant inflammation noted. Yoandy Amador MD Jan 02, 2018 17:35
--- NOTE | 2018-01-02 18:05 | RADRPT ---
EXAM DATE/TIME: 01/02/2018 17:42 [facility] COMPARISON: CHEST SINGLE AP, January 02, 2018, 12:33. INDICATIONS : Post bronchoscopy. MEDICAL HISTORY : Hypertension. Diabetes mellitus type II. Cardiovascular disease. SURGICAL HISTORY : None. ENCOUNTER: Subsequent ACUITY: 1 month PAIN SCORE: Non-responsive. LOCATION: Bilateral chest FINDINGS: Endotracheal tube is in good position. There is bilateral airspace disease, left greater than right. Slight improvement in aeration of the left lung apex. Mediastinal shift from right to left. Bilateral effusions. CONCLUSION: 1. Post bronchoscopy without pneumothorax. Slight improvement in aeration in the upper left lung. Sachin Gonzalez MD on January 02, 2018 at 18:02 Board Certified Radiologist. This report was verified electronically.
[2018-01-02] MEDS ORDERED: CHLORHEXIDINE 0.12% (ORAL KIT) 15 ML CUP MT SCH (20:00)
[2018-01-02] MEDS: PROPOFOL 1000 MG/100 ML INJ 100 ML IV PRN ×2 (20:18→22:50)
[2018-01-02] MEDS: PHENYLEPHRINE INJ 40 MG in DEXTROSE 5% IN WATE 500 ML INJ 496 ML IV PRN ×2 (20:20)
[2018-01-02] MEDS: FAMOTIDINE 20 MG TAB PO SCH (22:49)
[2018-01-03] VITALS (17 sets, daily range): BP systolic 84–167; BP diastolic 45–84; PULSE 101–114; RESP 16–19; TEMP 98.1–98.7; O2SAT 92–100
[2018-01-03] MEDS: PHENYLEPHRINE INJ 40 MG in DEXTROSE 5% IN WATE 500 ML INJ 496 ML IV PRN ×2 (00:50)
[2018-01-03] MEDS: CHLORHEXIDINE GLUCONATE 2 % 1 PACK (2 CLOTHS) TOP SCH (04:00)
[2018-01-03] MEDS: ARTIFICIAL TEARS OPTH SOLN 15 ML BTL EACH EYE SCH ×3 (06:29→20:52)
[2018-01-03] MEDS: RESP: BUDESONIDE 0.5 MG/2 ML NEB NEB SCH ×2 (07:43→20:53)
[2018-01-03] MEDS ORDERED: RESP: ACETYLCYSTEINE 20% 10 ML NEB NEB SCH (08:00)
[2018-01-03] MEDS: RESP: ALBUTEROL 2.5 MG/IPRATROPIUM 0.5 MG NEB (SCH) NEB ×5 (08:00→23:24)
[2018-01-03] MEDS: INSULIN NovoLIN REGULAR SUPPLEMENTAL SCALE SQ SCH ×4 (08:00→20:52)
[2018-01-03] MEDS: MUPIROCIN 2% OINT 1 APPLIC/GM SYR EACH NARE SCH ×2 (09:00→20:49)
[2018-01-03] MEDS: METOPROLOL TARTRATE 50 MG TAB PO SCH ×2 (09:00→20:50)
[2018-01-03] MEDS: TAMSULOSIN HCL 0.4 MG CAP PO SCH (09:00)
[2018-01-03 09:38] LABS: ALBUMIN 2.3 GM/DL (3.4-5.0); BICARBONATE 17.7 MEQ/L (21.0-32.0); CALCIUM 7.9 MG/DL (8.5-10.1); CREATININE 2.58 MG/DL (0.50-1.00); PHOSPHORUS 4.1 MG/DL (2.5-4.9)
[2018-01-03] MEDS: PREGABALIN 75 MG CAP PO SCH (09:40)
[2018-01-03] MEDS: RIVAROXABAN 10 MG TAB PO SCH (09:40)
[2018-01-03] MEDS: FUROSEMIDE 40 MG TAB PO SCH (09:40)
[2018-01-03] MEDS: NYSTATIN 100,000 U/GM PWD 15 GM BTL TOPICAL SCH ×2 (09:41→20:52)
[2018-01-03] MEDS: predniSONE 20 MG TAB PO SCH ×2 (09:41→20:50)
[2018-01-03] MEDS: LACTOBACILLUS ACIDOPHILUS TAB PO SCH ×3 (09:41→18:15)
[2018-01-03] MEDS: DOCUSATE SODIUM 50 MG/SENNA 8.6 MG TAB PO SCH ×2 (09:41→20:50)
[2018-01-03] MEDS: SERTRALINE HCL 100 MG TAB PO SCH (09:41)
[2018-01-03] MEDS: SODIUM CHLORIDE 0.9% FLUSH 10 ML FLUSH IV FLUSH SCH ×2 (09:42→20:51)
[2018-01-03] MEDS: CHLORHEXIDINE 0.12% (ORAL KIT) 15 ML CUP MT SCH ×2 (09:42→20:51)
[2018-01-03] MEDS: VANCOMYCIN 25 MG/ML SOLN 100 ML BOTTLE PO SCH ×2 (09:45→20:53)
--- NOTE | 2018-01-03 09:45 | RADRPT ---
EXAM DATE/TIME: 01/03/2018 08:38 [facility] COMPARISON: CHEST SINGLE AP, January 02, 2018, 17:42. INDICATIONS : Respiratory disease. MEDICAL HISTORY : Hypertension. Diabetes mellitus type II. Cardiovascular disease. SURGICAL HISTORY : None. ENCOUNTER: Subsequent ACUITY: 1 month PAIN SCORE: Non-responsive. LOCATION: Bilateral chest FINDINGS: Stable ETT. Interval NGT placement with tip in the GE junction. Continued volume loss and diffuse lef t hemithorax opacification. Cardiomediastinal contours are stable. Remainder of exam is unchanged. CONCLUSION: 1. Stable ETT. NGT beyond the GE junction. 2. Persistent diffuse opacification of the left hemithorax with associated volume loss. 3. No significant interval change. Riccardo Stack MD on January 03, 2018 at 9:18 Board Certified Radiologist. This report was verified electronically.
--- NOTE | 2018-01-03 09:54 | HHI.CCPN ---
Subjective Remarks/Hospital Course This is a 67-year-old female. Date of admission 12/13/2017. Past medical history includes elevated BMI, chronic asthma on chronic oxygen, atrial fibrillation/rate controlled, hypertension dyslipidemia. Today, patient presents to [facility] emergency department after being found unresponsive at the correction. She was just discharged from the hospital 12/10/2017 from [facility]. She is morbidly obese with multiple severe chronic illnesses and was both in respiratory distress and decreased responsiveness at the same time. She was noted to be hypoxic with saturations in the e 80s with nasal cannula. Was brought in on BiPAP. Accu-Chek was in the 30s when paramedics found her. Initial GCS was reported as 3. She received some D10 through a right arm PICC line but upon arrival staff felt that the PICC line was not working properly. Patient cannot provide any history or review of systems. She arrives critically ill Patient received D50 and a central line in the right internal jugular was placed by ED physician as no significant access was available. Chest x-ray revealed no acute cardiopulmonary findings. After being placed on BiPAP and receiving glucose patient's mentation is much improved and likely can be removed in the ICU. Less confused when evaluated in the ED. UA is positive. Previous history of Pseudomonas sensitive to aztreonam 12/14: Currently resting in bed in no acute distress on 3 L nasal cannula. Overnight on BiPAP/Venturi mask currently on 3 L nasal cannula. Difficult to arouse but once arousable does follow commands in all 4 extremities but weakly. Blood sugar 135. ABG currently pending 12/15: Afebrile. Resting in bed on nasal cannula. Arousable and following commands. Ill-definition due to hypo-tension. I will place arterial line secondary to body habitus. She does not appear septic. She is more awake and alert and attentive today as compared to yesterday. 12/16: Alert and oriented 3, responding to questions appropriately. Arterial line inability to play secondary to body habitus. Patient remained on phenylephrine during the night but now map remains less than 60 will resume phenylephrine infusion, and initiate Midodrine. 12/17: Hemodynamically stable. Phenylephrine infusion off since last night. MAP 80's. Patient alert and oriented, tolerating diet/breakfast. 12/18: Late entry note. Hemodynamically stable. Decrease FiO2 requirements currently on 2 L nasal cannula O2 saturation 97-98 %. RECONSULT 12/19: Patient became hemodynamically unstable this afternoon requiring reinitiation of phenylephrine infusion currently at 70 mcgs/minute. 12/20: Patient became somnolent last evening noted respiratory acidosis around 2 AM. Patient placed back on BiPAP. ID has been consulted for MDR Klebsiella. Patient awake and alert this afternoon, and denies pain. 12/21: Respiratory status much improved, and to remain on BiPAP at night while sleeping. ABGs improved. Patient hemodynamically stable no vasopressor requirements at this time. IV fluids discontinued. Patient tolerating a diet. 12/22: Patient remains a respiratory acidosis, slightly more lethargic today. Patient placed on BiPAP with exception of meals today. Repeat ABG pending this afternoon 12/23: ABG's and neuro status unchanged. Patient remains on BiPAP with exception of meals. Repeat ABG pending this afternoon. Ammonia level ordered. 12/24 Patient is on BIPAP 15/ with 40% . In Afib with RVR 12/25 No events overnight. Remains on BIPAP. Started on Lasix drip per renal 20mg /hr 12/26: Patient remains on BiPAP lethargic. Air entry is diminished on the left side. Chest x-ray shows complete whiteout on the left side with mediastinal shift to the left indicating mucus plugging and left lung collapse. Will proceed with emergency intubation and bronchoscopy (I discussed with Dr. Baca -he will do bronchoscopy at 11:30 AM today) 12/27: Intubated yesterday for severe left lung atelectasis. Underwent bronchoscopy by Dr. Baca. Bronchoscopy showed tracheomalacia and bronchomalacia involving right mainstem bronchi, left mainstem and left upper lobe bronchi. Significant thick mucoid secretions in right upper lobe bronchi, left upper bronchus and also left lower lobe. Moderate endobronchitis. Chest x -ray shows moderate improvement in left upper lobe but persistent dense consolidation middle and lower lung zones. Check CT of the chest stat today 12/28: Afebrile. FiO2 at 30% awake alert and awake. Plan extubation today passes parameters.. 12/29: Afebrile. Extubated yesterday without complications to BiPAP currently at 12/5 at 35%. Tolerated taking pills yesterday. Somewhat lethargic this a.m. but this appears to be her baseline Subjective 12/30: Afebrile. Currently on room air. Tolerating diet. Remove central line today if furosemide drip changed to 40 mg IV [address] Archer. 12/31 Patient is on 3L oxygen. Awake, alert. Afebrile. Off Lasix drip. 01/01 No events overnight. On 3L oxygen. Off BIPAP. Afebrile. 321: Patient has diminished breath sounds left lung, and the left lung is is rc out on CXR with midline shift indicating complete atelectasis. I discussed with her need for bronchoscopy following intubation. Patient is willing for intubation and bronchoscopy. She does not want trach IF she can be extubated, if not extubated in 4-5 days patient is willing to get trach. I gave her the option for palliative care and comfort measures which patient refused. Discussed with Dr. Michelle who is covering fro Dr. Baca 01/03: Patient was intubated yesterday for almost complete left lung collapse. Had bronchoscopy and large amount of thick mucoid secretions removed from left upper and left lower lobe bronchi. Patient has severe bronchomalacia and bronchial narrowing involving left upper and lower lobe bronchi. Currently using large tidal volumes and high PEEP in an attempt to open up the lung. Patient may need permanent trach. Requiring 40 mcg/min of Ion-Synephrine Objective Vital Signs Date Time Temp Pulse Resp B/P (MAP) Pulse Ox O2 Delivery O2 Flow Rate FiO2 01/03/18 08:00 114 167/84 01/03/18 07:39 100 50 01/03/18 04:00 98.7 17 01/02/18 20:00 Mechanical Ventilator 01/02/18 16:00 2.00 Intake and Output 01/03/18 01/03/18 01/04/18 08:00 16:00 00:00 Intake Total 50 ml Output Total 400 ml Balance -350 ml Result Diagram: 01/02/18 0550 01/03/18 0833 Other Results Laboratory Tests Test 01/02/18 14:34 Blood Gas Puncture Site LT RADIAL Blood Gas Patient Temperature 98.6 Blood Gas HCO3 22 mmol/L (22-26) Blood Gas Base Excess -1.4 mmol/L (-2-2) Blood Gas Oxygen Saturation 97 % (90-100) Arterial Blood pH 7.42 (7.380-7.420) Arterial Blood Partial Pressure CO2 35 mmHg (38-42) Arterial Blood Partial Pressure O2 180 mmHg (61-120) Arterial Blood Oxygen Content 11.2 Vol % (12.0-20.0) Arterial Blood Carboxyhemoglobin 1.5 % (0-4) Arterial Blood Methemoglobin 1.2 % (0-2) Blood Gas Hemoglobin 7.9 G/DL (12.0-16.0) Oxygen Delivery Device VENTILATOR Blood Gas Ventilator Setting 16/600/PEEP10 Blood Gas Inspired Oxygen 50 % Imaging Last Impressions Chest X-Ray 12/29/17 0600 Signed Impressions: Service Date/Time: Friday, December 29, 2017 03:16 - CONCLUSION: 1. Improving aeration in the right base with persistent left basilar consolidation/ effusion. Stable cardiomegaly. 2. Interval removal of the endotracheal and nasogastric tubes. Jakob Plunkett MD Chest CT 12/27/17 0000 Signed Impressions: Service Date/Time: December 10:29 - CONCLUSION: 1. Basilar atelectasis and small pleural effusions, increased from November 26. Mild perihilar groundglass opacity present most characteristic of minimal pulmonary edema. 2. Support apparatus as above. Moderate coronary calcifications. Sachin Gonzalez MD Abdomen/Pelvis CT 12/20/17 0000 Signed Impressions: Service Date/Time: December 21:20 - CONCLUSION: Stable appearance to the CT abdomen/pelvis were compared to 11/26/17. Right double-J stent in place, multiple gallstones, left renal mass, left lateral ventral hernia. Dorian Vasquez MD Upper Extremity Ultrasound 12/13/17 0000 Signed Impressions: Service Date/Time: December 13:43 - CONCLUSION: 1. No deep venous thrombosis in the left upper extremity. 2. Superficial thrombosis of the right cephalic vein. El Nuñez MD Lower Extremity Ultrasound 12/13/17 0000 Signed Impressions: Service Date/Time: December 14:26 - CONCLUSION: Normal examination. Domingo Calderon MD Head CT 12/13/17 0000 Signed Impressions: Service Date/Time: December 13:30 - CONCLUSION: Normal examination. Domingo Calderon MD Objective Remarks GENERAL: 67-year-old female lying in bed SKIN: Warm and dry. No rash HEAD: Atraumatic. Normocephalic. EYES: Pupils equal and round about 3 mm bilaterally and reactive. No scleral icterus. No injection or drainage. ENT: No nasal bleeding or discharge. On NC NECK: Trachea midline. No JVD. CARDIOVASCULAR: IRR. Distant heart tones. S1, S2. No S4. Without murmur RESPIRATORY: Breath sounds are diminished in the left chest. GASTROINTESTINAL: Abdomen soft, obese, nontender. Hypoactive bowel sounds are appreciated MUSCULOSKELETAL: Extremities with 1+ bilateral upper and lower extremity edema NEUROLOGICAL: Alert awake oriented to person and place. motor grossly within normal limits. Date of Insertion: Dec 13, 2017 Line: Central Venous Catheter Side: Right Location: Internal, Jugular A/P Assessment and Plan Neuro/Psych: Metabolic encephalopathy -improved Chronic benzodiazepine use Depression disorder NOS Diabetic neuropathy Chronic pain syndrome with chronic narcotic use Propofol for sedation after intubation continue hydrocodone/acetaminophen 5/325 1 tablet every 6 hours as needed pain Continue sertraline 100 mg p.o. daily for depression Continue pregabalin 75 mg p.o. daily for peripheral neuropathy CT brain 12/13 revealed no acute intracranial findings Acetaminophen 650 mg p.o. every 6 hours as needed fever Alprazolam 1 mg twice daily as needed anxiety-hold while intubated CV: Atrial fibrillation with RVR, now rate controlled Hypertension, now hypotensive Fluid overload Hold Lopressor and Cardizem for borderline low BP. Attempt wean to DC Ion- Synephrine to keeping map above 65 Monitor HR and BP keep MAP>65mmHg 2D echocardiogram 12/02 - EF 50-55%. The left atrial size is mildly dilated. The right atrial size is moderately dilated. Trace TR Resp: Acute hypoxic, hypercapnic respiratory failure Recurrent left lung collapse/mucus plugging Bronchomalacia, with left airway narrowing and collapse APOLONIA/OHS History recurrent MRSA pneumonia Status post intubation and bronchoscopy 12/26/2017 and extubated 12/28, bronchoscopy showed thick mucoid secretions in left upper lobe left lower lobe and right upper lobe Significant tracheomalacia and bronchomalacia involving the right and left main stem bronchi Now with recurrent collapse of the left lung. Status post intubation and bronchoscopy 01/02/2018, similar findings as above If she cannot be weaned in the next 4-5 days patient is agreeable for tracheostomy May need permanent tracheostomy due to severe bronchomalacia and narrowing of the left upper and lower lobe bronchi Change PRVC to PC/AC target TV 650-700, PEEP 14 Albuterol/ipratropium aerosols every 4 hours with albuterol aerosols every 2 hours as needed dyspnea Added Mucomyst Continue budesonide 0.5 mg/2 mL 1 inhalation s every 12 hours Continue Prednisone 20mg BID Dr. Poon pulmonary following. Discussed with Dr. Michelle who is covering GI: BMI greater than 40 Gastroesophageal reflux disease Hypoalbuminemia NPO, start tube feeds with nepro Famotidine for GI prophylaxis. Patient is on famotidine 20 mg p.o. daily at home Docusate sodium/senna 1 tablet twice daily for bowel regimen. Patient is on senna 8.6 mg twice daily at home Having regular bowel movement Continue ondansetron 4 mg every 6 hours as needed nausea Renal//FEN: Acute on chronic kidney disease J stent placement Hypokalemia Monitor renal function, I/O's, avoid nephrotoxins Solitario catheter to maintain patency with recent pyelonephritis/GJ placement. On Lasix 40mg TID, Renal is following, Cr: 2.5 Outpatient J stent removal should be scheduled by urology that was placed during last hospitalization 12/02 12/20 CT abd/pelvis: No hydronephrosis Continue tamsulosin 0.4 mg daily Endo: Diabetes mellitus Acute hypoglycemia-resolved Sliding scale insulin with Novolin R with Accu-Cheks to maintain euglycemia every 6 hours low regimen Heme: Leukocytosis Normocytic anemia Chronic Rivaroxaban use Right cephalic vein superficial thrombus Monitor CBC Continue with rivaroxaban 10 mg daily ID: Urinary tract infection/MDR Klebsiella History of MRSA History of C. difficile Blood cx 12/20 Leni avila Currently on PO vancomycin , ceftazidime/avibactam and fluconazole per ID. 1 dose of vanc given 12/26 Monitor for signs of infections (Fever, WBC) Pertinent cultures Urine Legionella pneumococcal antigens negative Urine culture 12/13 Klebsiella ESBL positive positive Blood culture 12/20: [facility] Access -Peripheral IV's Prophylaxis -GI -famotidine -DVT -SCD/rivaroxaban CCT 30. Patient remains critically ill with persistent left lung collapse. Despite bronchoscopy and high PEEP left lung remains collapsed. Increased tidal volumes to 650-700, change more to [employer] C with high iT and continue PEEP 14 to attempt opening up lung. On Ion-Synephrine to keep map above 65. Patient may need permanent trach Yoandy Amador MD Jan 03, 2018 09:54
[2018-01-03] MEDS: PROPOFOL 1000 MG/100 ML INJ 100 ML IV PRN ×2 (10:17→20:51)
--- NOTE | 2018-01-03 11:02 | HHI.NPPN ---
Subjective Complaints: Shortness of Breath Renal Failure: Acute Interval History She had bronchoscopy yesterday, then was intubated per patient request. On 40% FiO2. On Propofol. She is non oliguric. Renal function stable. (Suad Lucas) Review of Systems General General Remarks unable to obtain (Suad Lucas) Cardiovascular Cardiac: Edema (Suad Lucas) Objective Data Data Vital Signs Date Time Temp Pulse Resp B/P (MAP) Pulse Ox O2 Delivery O2 Flow Rate FiO2 01/03/18 10:27 100 40 01/03/18 08:00 114 167/84 01/03/18 07:39 100 50 01/03/18 07:00 112 103/39 01/03/18 06:00 107 01/03/18 04:00 98.7 101 17 93/45 (61) 100 01/03/18 04:00 101 01/03/18 04:00 101 93/45 01/03/18 03:34 92 50 01/03/18 02:00 102 01/03/18 00:50 102 123/48 01/03/18 00:00 98.7 102 16 84/54 (64) 100 01/03/18 00:00 102 01/02/18 23:38 97 50 01/02/18 22:50 98 104/43 01/02/18 22:00 98 01/02/18 20:20 93 81/51 01/02/18 20:08 100 50 01/02/18 20:00 98.7 102 19 102/57 (72) 87 01/02/18 20:00 102 01/02/18 20:00 97 Mechanical Ventilator 50 01/02/18 18:00 95 01/02/18 16:51 100 100 01/02/18 16:00 96 01/02/18 16:00 Nasal Cannula 2.00 01/02/18 16:00 97.4 96 19 108/47 (67) 01/02/18 15:32 100 40 01/02/18 14:00 90 01/02/18 14:00 Nasal Cannula 2.00 01/02/18 12:00 Nasal Cannula 2.00 01/02/18 12:00 96 01/02/18 12:00 97.5 105 17 118/65 (82) 100 01/02/18 11:21 100 50 (Suad Lucas) -: 01/02/18 0550 01/03/18 0833 Microbiology 01/02/18 Gram Stain - Final, Resulted 01/02/18 Sputum Culture, Resulted Pending Imaging Last Impressions Chest X-Ray 01/03/18 0000 Signed Impressions: Service Date/Time: December 08:38 - CONCLUSION: 1. Stable ETT. NGT beyond the GE junction. 2. Persistent diffuse opacification of the left hemithorax with associated volume loss. 3. No significant interval change. Riccardo Stack MD Chest CT 12/27/17 0000 Signed Impressions: Service Date/Time: December 10:29 - CONCLUSION: 1. Basilar atelectasis and small pleural effusions, increased from November 26. Mild perihilar groundglass opacity present most characteristic of minimal pulmonary edema. 2. Support apparatus as above. Moderate coronary calcifications. Sachin Gonzalez MD Abdomen/Pelvis CT 12/20/17 0000 Signed Impressions: Service Date/Time: December 21:20 - CONCLUSION: Stable appearance to the CT abdomen/pelvis were compared to 11/26/17. Right double-J stent in place, multiple gallstones, left renal mass, left lateral ventral hernia. Dorian Vasquez MD Upper Extremity Ultrasound 12/13/17 0000 Signed Impressions: Service Date/Time: December 13:43 - CONCLUSION: 1. No deep venous thrombosis in the left upper extremity. 2. Superficial thrombosis of the right cephalic vein. El Nuñez MD Lower Extremity Ultrasound 12/13/17 0000 Signed Impressions: Service Date/Time: December 14:26 - CONCLUSION: Normal examination. Domingo Calderon MD Head CT 12/13/17 0000 Signed Impressions: Service Date/Time: December 13:30 - CONCLUSION: Normal examination. Domingo Calderon MD Tubes & Lines: Garcia Drip Comment propofol (Suad Lucas) Physical Exam General Appearance: Well Developed, No Acute Distress, Comfortable, Sleeping, Obese (Suad Lucas) Throat Throat Exam: Oral Mucosa [place] & Moist (Suad Lucas) Pulmonary Resp Exam: Clear Bilaterally, Breath Sounds Equal, No Distress, Rhonchi, Decreased Bases, Diminished Breath Sounds Resp Remarks minimal air movement on left (Suad Lucas) Cardiology CV Exam: Good Perfusion, Irregular, Tachycardia (Suad Lucas) Gastrointestinal/Abdomen GI Exam: Soft, Non-Tender, Bowel Sounds Present GI Remarks super morbidly obese (Suad Lucas) Musculoskeletal MS Exam: Joints Intact, Normal Tone, Unable to Ambulate (Suad Lucas) Integumentary Skin Exam: Warm, Dry (Suad Lucas) Extremeties Extremities Exam: Pedal Pulses Palpable, Moderate Edema, Dependent Edema (Suad Lucas) Neurologic Neuro Exam: Awake, Moving All Extremities, Unresponsive, Sedated (Suad Lucas) Psychiatric Psych Exam: Appropriate Responses (Suad Lucas) VTE Prophylaxis Device: SCDs (Suad Lucas) Assessment/Plan Assessment Summary: FREDDY/Acute Renal Failure, Fluid/Volume Overload, Hypotension Problem List: (1) FREDDY (acute kidney injury) ICD Codes: N17.9 - Acute kidney failure, unspecified Plan: Her best creatinine at discharge was 1.2 Initially she my have suffered vancomycin induced nephrotoxicity More recently has been hypotensive, possibly suffered hypoperfusion injury, possibly ATN due to hypotension, also due to sepsis and UTI. Creatinine is stable Diuretics include Lasix, change to IV due to reintubation She will have a component of chronic edema. On albumin She is non oliguric, has garcia Repeat labs in AM Monitor urine output (2) Hypernatremia ICD Codes: E87.0 - Hyperosmolality and hypernatremia Plan: Improved (3) Respiratory failure ICD Codes: J96.90 - Respiratory failure, unspecified, unspecified whether with hypoxia or hypercapnia Plan: s/p intubation, s/p 2nd bronchoscopy with suctioning/bronchial washing first bronchoscopy with multiple mucous plugs identified and suctioned. Also has tracheomalacia and bronchomalacia pulmonary following Continue diuresis (4) UTI (urinary tract infection) ICD Codes: N39.0 - Urinary tract infection, site not specified Plan: ID is following. She is on Avycaz until today. Has MDRO Klebsiella Sp. Contact precautions (5) Pneumonia ICD Codes: J18.9 - Pneumonia, unspecified organism Status: Acute Plan: See above. ID is following. On IV Avycaz. (6) C. difficile colitis ICD Codes: A04.72 - Enterocolitis due to Clostridium difficile, not specified as recurrent Plan: PO vancomycin (taper) Contact precautions. (7) Anemia ICD Codes: D64.9 - Anemia, unspecified Plan: No evidence of iron deficiency Monitor hemoglobin (8) Afib ICD Codes: I48.91 - Unspecified atrial fibrillation Status: Chronic Plan: rate controlled but intermittently hypotensive On PO Cardizem (has been held), also on metoprolol to 50 BID (hold PRN hypotension) Plan Prognosis is guarded. (Suad Lucas) Plan patient was seen and examined. Agree with above assessment and plan. Reintubated. Lasix changed to IV. Poor prognosis. Xray of the chest reviewed. Likely had mucus plug, s/p bronch. (Mohinder Lopez MD) Problem Qualifiers (1) Afib: Qualified Codes: I48.2 - Chronic atrial fibrillation Suad Lucas Jan 03, 2018 11:02 Mohinder Lopez MD Jan 03, 2018 15:13
[2018-01-03] MEDS: RESP: ACETYLCYSTEINE 20% 30 ML NEB NEB SCH ×4 (12:00→23:24)
[2018-01-03] MEDS: cefTAZidime/AVIBACTAM INJ 0.94 GM in SODIUM CHLORIDE 0.9% INJ 50 ML IV SCH ×2 (12:17→21:40)
[2018-01-03] MEDS: ASCORBIC ACID 500 MG TAB PO SCH ×2 (12:17→20:49)
--- NOTE | 2018-01-03 12:49 | HHI.IDPN ---
Subjective Subjective Remarks ID [id number] cover chart was reviewed Patient is a 67-year-old female, resides in the intermediate, brought into the hospital after she was found unresponsive. She had a recent hospitalization where she was diagnosed to have sepsis related to complicated UTI. During that hospitalization she underwent stent placement. She also had C. difficile colitis during that admission. Patient states that she uses a BiPAP machine in the intermediate usually when she is sleeping. She is nonambulatory. Denies any significant cough or congestion. No chest pain. There was no mention of any fever or chills or sweats. When she also came to the hospital this time she was on pressors for hypotension. She improved clinically and her hemodynamics stabilize. However yesterday she went hypotensive again, an infectious disease consultation has been requested to evaluate the patient. Notes reviewed Discussed with RN Harley ok Extubated 12/28, reintubated yday, large secretions Chest x-ray with white out of the left log and Had bronchoscopy done Initial Bronch C/S negative BP ok WBC slightly higher today ANC keep going up to 12K Stool ok Antibiotics Avycaz - to finish 01/03 PO Vanco - tapering Lines Line no evidence of infection Past Medical History Chronic respiratory failure secondary to APOLONIA, OHS and bronchial asthma Atrial fibrillation rate controlled Hypertension Dyslipidemia Gastroesophageal reflux disease Elevated BMI greater than 50 Recurrent MRSA pneumonia Depression Constipation Past Surgical History JJ stent placement by urology Hiatal hernia surgery Appendectomy Percutaneous tracheostomy by Dr. Mullins since decannulated Allergies: Coded Allergies: penicillin G (Unverified Allergy, Severe, 05/29/17) Objective . Vital Signs Date Time Temp Pulse Resp B/P (MAP) Pulse Ox O2 Delivery O2 Flow Rate FiO2 01/03/18 12:00 101 01/03/18 12:00 98.1 101 16 127/59 (81) 100 01/03/18 12:00 40 01/03/18 10:27 100 40 01/03/18 10:00 40 01/03/18 10:00 108 01/03/18 08:00 50 01/03/18 08:00 114 01/03/18 08:00 114 167/84 01/03/18 08:00 98.3 114 18 167/84 (111) 100 01/03/18 07:39 100 50 01/03/18 07:30 178/83 01/03/18 07:20 163/84 01/03/18 07:10 158/97 01/03/18 07:00 112 103/39 01/03/18 06:00 107 01/03/18 04:00 98.7 101 17 93/45 (61) 100 01/03/18 04:00 101 01/03/18 04:00 101 93/45 01/03/18 03:34 92 50 01/03/18 02:00 102 01/03/18 00:50 102 123/48 01/03/18 00:00 98.7 102 16 84/54 (64) 100 01/03/18 00:00 102 01/02/18 23:38 97 50 01/02/18 22:50 98 104/43 01/02/18 22:00 98 01/02/18 20:20 93 81/51 01/02/18 20:08 100 50 01/02/18 20:00 98.7 102 19 102/57 (72) 87 01/02/18 20:00 102 01/02/18 20:00 97 Mechanical Ventilator 50 01/02/18 18:00 95 01/02/18 16:51 100 100 01/02/18 16:00 96 01/02/18 16:00 Nasal Cannula 2.00 01/02/18 16:00 97.4 96 19 108/47 (67) 01/02/18 15:32 100 40 01/02/18 14:00 90 01/02/18 14:00 Nasal Cannula 2.00 . Laboratory Tests Test 01/02/18 05:50 White Blood Count 12.8 TH/MM3 Red Blood Count 2.58 MIL/MM3 Hemoglobin 7.7 GM/DL Hematocrit 24.0 % Mean Corpuscular Volume 93.1 FL Mean Corpuscular Hemoglobin 29.8 PG Mean Corpuscular Hemoglobin Concent 32.0 % Red Cell Distribution Width 20.3 % Platelet Count 154 TH/MM3 Mean Platelet Volume 9.5 FL Neutrophils (%) (Auto) 90.5 % Lymphocytes (%) (Auto) 2.5 % Monocytes (%) (Auto) 6.4 % Eosinophils (%) (Auto) 0.1 % Basophils (%) (Auto) 0.5 % Neutrophils # (Auto) 11.6 TH/MM3 Lymphocytes # (Auto) 0.3 TH/MM3 Monocytes # (Auto) 0.8 TH/MM3 Eosinophils # (Auto) 0.0 TH/MM3 Basophils # (Auto) 0.1 TH/MM3 CBC Comment AUTO DIFF Differential Total Cells Counted 100 Neutrophils % (Manual) 87 % Band Neutrophils % 2 % Lymphocytes % 1 % Monocytes % 5 % Neutrophils # (Manual) 12.0 TH/MM3 Metamyelocytes 1 % Myelocytes 4 % Differential Comment FINAL DIFF MANUAL Platelet Estimate NORMAL Platelet Morphology Comment NORMAL Basophilic Stippling MOD Stomatocytes 1+ Laboratory Tests Test 01/02/18 05:50 01/03/18 08:33 Blood Urea Nitrogen 45 MG/DL 46 MG/DL Creatinine 2.54 MG/DL 2.58 MG/DL Random Glucose 128 MG/DL 89 MG/DL Calcium Level 7.8 MG/DL 7.9 MG/DL Sodium Level 145 MEQ/L 140 MEQ/L Potassium Level 4.1 MEQ/L 3.8 MEQ/L Chloride Level 108 MEQ/L 107 MEQ/L Carbon Dioxide Level 24.0 MEQ/L 17.7 MEQ/L Anion Gap 13 MEQ/L 15 MEQ/L Estimat Glomerular Filtration Rate 19 ML/MIN 18 ML/MIN Albumin 2.3 GM/DL Phosphorus Level 4.1 MG/DL Microbiology Date/Time Source Procedure Growth Status 01/02/18 14:20 Sputum Endotracheal Gram Stain - Final Resulted 01/02/18 14:20 Sputum Endotracheal Sputum Culture Pending Resulted Imaging Last Impressions Chest X-Ray 01/03/18 0000 Signed Impressions: Service Date/Time: December 08:38 - CONCLUSION: 1. Stable ETT. NGT beyond the GE junction. 2. Persistent diffuse opacification of the left hemithorax with associated volume loss. 3. No significant interval change. Riccardo Stack MD Chest CT 12/27/17 0000 Signed Impressions: Service Date/Time: December 10:29 - CONCLUSION: 1. Basilar atelectasis and small pleural effusions, increased from November 26. Mild perihilar groundglass opacity present most characteristic of minimal pulmonary edema. 2. Support apparatus as above. Moderate coronary calcifications. Sachin Gonzalez MD Abdomen/Pelvis CT 12/20/17 0000 Signed Impressions: Service Date/Time: December 21:20 - CONCLUSION: Stable appearance to the CT abdomen/pelvis were compared to 11/26/17. Right double-J stent in place, multiple gallstones, left renal mass, left lateral ventral hernia. Dorian Vasquez MD Upper Extremity Ultrasound 12/13/17 0000 Signed Impressions: Service Date/Time: December 13:43 - CONCLUSION: 1. No deep venous thrombosis in the left upper extremity. 2. Superficial thrombosis of the right cephalic vein. El Nuñez MD Lower Extremity Ultrasound 12/13/17 0000 Signed Impressions: Service Date/Time: December 14:26 - CONCLUSION: Normal examination. Domingo Calderon MD Head CT 12/13/17 0000 Signed Impressions: Service Date/Time: December 13:30 - CONCLUSION: Normal examination. Domingo Calderon MD Physical Exam GENERAL: Sedated on the vent, NAD SKIN: Cool and dry. No generalized rash HEAD: Atraumatic. Normocephalic. No temporal wasting, or tenderness. EYES: Erick conjunctiva. No petechia or hemorrhage. Pupils equal, round and reactive to light. No scleral icterus. EARS, NOSE AND THROAT: Nose without bleeding or purulent nasal discharge. Moist mucosa NECK: Trachea midline. Supple and not tender, no meningeal signs CARDIOVASCULAR: Regular rate and rhythm. No murmurs, rubs or gallops heard RESPIRATORY: Decreased breath sounds R base, markedly decreased whole L side ABDOMEN: Soft, obese, no reaction to palpation, nondistended. Edematous Bowel sounds present and normoactive. EXTREMITIES: No clubbing, cyanosis. Prominent pitting diffuse edema. No calf tenderness. . 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
[2018-01-03] MEDS: FUROSEMIDE 40 MG/4 ML VIAL IV PUSH SCH (18:15)
[2018-01-03] MEDS: ACETAMINOPHEN/HYDROcodone 325 MG/5 MG TAB PO PRN (20:50)
[2018-01-03] MEDS: FAMOTIDINE 20 MG TAB PO SCH (20:50)
[2018-01-04] VITALS (18 sets, daily range): BP systolic 106–138; BP diastolic 59–87; PULSE 97–118; RESP 16–19; TEMP 97.7–98.9; O2SAT 99–100
[2018-01-04] MEDS: RESP: ALBUTEROL 2.5 MG/IPRATROPIUM 0.5 MG NEB (SCH) NEB ×6 (03:35→23:58)
[2018-01-04] MEDS: RESP: ACETYLCYSTEINE 20% 30 ML NEB NEB SCH ×6 (03:35→23:58)
[2018-01-04] MEDS: CHLORHEXIDINE GLUCONATE 2 % 1 PACK (2 CLOTHS) TOP SCH (04:00)
[2018-01-04] MEDS: ACETAMINOPHEN/HYDROcodone 325 MG/5 MG TAB PO PRN (05:38)
[2018-01-04] MEDS: ARTIFICIAL TEARS OPTH SOLN 15 ML BTL EACH EYE SCH ×3 (06:00→20:13)
--- NOTE | 2018-01-04 06:03 | RADRPT ---
EXAM DATE/TIME: 01/04/2018 04:15 [facility] COMPARISON: CHEST SINGLE AP, January 03, 2018, 8:38. INDICATIONS : Followup dense opacification left hemithorax.. MEDICAL HISTORY : None. SURGICAL HISTORY : None. ENCOUNTER: Subsequent ACUITY: 1 week PAIN SCORE: Non-responsive. LOCATION: Bilateral chest FINDINGS: 2 AP supine portable views of the chest were obtained. The patient is rotated to the left. There's be en interval improvement in the opacification in the left hemithorax with aeration now noted in the up per lobe and perihilar region. Consolidative opacity remains at the left lung base. The endotracheal tube remains in place with the tip approximately 4 cm above the makeda. A nasogastric tube is again s een coursing through the esophagus into the stomach. The heart size remains prominent. CONCLUSION: 1. Interval improvement in opacity in the left lung with aeration now noted in the upper lobe and per ihilar region. Dense consolidation remains in the left lung base. 2. The patient is rotated to the left. Chintan Marshall MD on January 04, 2018 at 6:00 Board Certified Radiologist. This report was verified electronically.
[2018-01-04 06:43] LABS: ALBUMIN 2.6 GM/DL (3.4-5.0); ALT (GPT) 10 U/L (10-53); AST (GOT) 10 U/L (15-37); BICARBONATE 18.8 MEQ/L (21.0-32.0); CALCIUM 7.6 MG/DL (8.5-10.1); CHLORIDE 108 MEQ/L (98-107); GLOMERULAR FILTRATION RATE 18 ML/MIN (>89); GLUCOSE,RANDOM 91 MG/DL (74-106); MAGNESIUM 1.8 MG/DL (1.5-2.5); SODIUM (NA) 145 MEQ/L (136-145)
[2018-01-04 06:44] LABS: BLOOD UREA NITROGEN 48 MG/DL (7-18)
[2018-01-04 06:45] LABS: ALKALINE PHOSPHATASE 76 U/L (45-117); TOTAL BILIRUBIN ADULT 0.5 MG/DL (0.2-1.0); TOTAL PROTEIN 5.6 GM/DL (6.4-8.2)
[2018-01-04 07:06] LABS: AUTOMATED NEUTROPHIL # 9.7 TH/MM3 (1.8-7.7); BASOPHIL % 0.4 % (0.0-2.0); EOSINOPHIL % 0.1 % (0.0-4.0); HEMATOCRIT 24.1 % (35.0-46.0); LYMPHOCYTE # 0.5 TH/MM3 (1.0-4.8); MEAN CORPUSCULAR HEMOGLOBIN 29.9 PG (27.0-34.0); MEAN CORPUSCULAR HGB CONC 33.2 % (32.0-36.0); MONO % 6.8 % (0.0-8.0); MONOCYTE # 0.7 TH/MM3 (0-0.9); NEUT % 87.7 % (16.0-70.0); PLATELET COUNT 146 TH/MM3 (150-450); RED BLOOD COUNT 2.68 MIL/MM3 (4.00-5.30); RED CELL DISTRIBUTION WIDTH 22.3 % (11.6-17.2)
[2018-01-04] MEDS: RESP: BUDESONIDE 0.5 MG/2 ML NEB NEB SCH ×2 (07:29→20:11)
[2018-01-04] MEDS: TAMSULOSIN HCL 0.4 MG CAP PO SCH (07:36)
[2018-01-04] MEDS: DOCUSATE SODIUM 50 MG/SENNA 8.6 MG TAB PO SCH ×2 (07:37→20:12)
[2018-01-04] MEDS: cefTAZidime/AVIBACTAM INJ 0.94 GM in SODIUM CHLORIDE 0.9% INJ 50 ML IV SCH ×2 (07:56→20:10)
[2018-01-04] MEDS: PREGABALIN 75 MG CAP PO SCH (07:57)
[2018-01-04] MEDS: predniSONE 20 MG TAB PO SCH ×2 (07:57→20:12)
[2018-01-04] MEDS: METOPROLOL TARTRATE 50 MG TAB PO SCH ×3 (07:57→20:12)
[2018-01-04] MEDS: INSULIN NovoLIN REGULAR SUPPLEMENTAL SCALE SQ SCH ×4 (07:57→20:11)
[2018-01-04] MEDS: MUPIROCIN 2% OINT 1 APPLIC/GM SYR EACH NARE SCH ×2 (07:57→20:10)
[2018-01-04] MEDS: ASCORBIC ACID 500 MG TAB PO SCH ×2 (07:57→20:10)
[2018-01-04] MEDS: LACTOBACILLUS ACIDOPHILUS TAB PO SCH ×3 (07:57→16:30)
[2018-01-04] MEDS: SERTRALINE HCL 100 MG TAB PO SCH (07:57)
[2018-01-04] MEDS: VANCOMYCIN 25 MG/ML SOLN 100 ML BOTTLE PO SCH ×2 (07:58→20:11)
[2018-01-04] MEDS: CHLORHEXIDINE 0.12% (ORAL KIT) 15 ML CUP MT SCH ×2 (07:58→20:09)
[2018-01-04] MEDS: SODIUM CHLORIDE 0.9% FLUSH 10 ML FLUSH IV FLUSH SCH ×2 (07:58→20:10)
[2018-01-04] MEDS: RIVAROXABAN 10 MG TAB PO SCH (07:59)
[2018-01-04] MEDS: FUROSEMIDE 40 MG/4 ML VIAL IV PUSH SCH ×2 (07:59→16:30)
[2018-01-04] MEDS: NYSTATIN 100,000 U/GM PWD 15 GM BTL TOPICAL SCH ×2 (08:00→20:11)
--- NOTE | 2018-01-04 10:44 | HHI.CCPN ---
Subjective Remarks/Hospital Course This is a 67-year-old female. Date of admission 12/13/2017. Past medical history includes elevated BMI, chronic asthma on chronic oxygen, atrial fibrillation/rate controlled, hypertension dyslipidemia. Today, patient presents to [facility] emergency department after being found unresponsive at the shelter. She was just discharged from the hospital 12/10/2017 from [facility]. She is morbidly obese with multiple severe chronic illnesses and was both in respiratory distress and decreased responsiveness at the same time. She was noted to be hypoxic with saturations in the e 80s with nasal cannula. Was brought in on BiPAP. Accu-Chek was in the 30s when paramedics found her. Initial GCS was reported as 3. She received some D10 through a right arm PICC line but upon arrival staff felt that the PICC line was not working properly. Patient cannot provide any history or review of systems. She arrives critically ill Patient received D50 and a central line in the right internal jugular was placed by ED physician as no significant access was available. Chest x-ray revealed no acute cardiopulmonary findings. After being placed on BiPAP and receiving glucose patient's mentation is much improved and likely can be removed in the ICU. Less confused when evaluated in the ED. UA is positive. Previous history of Pseudomonas sensitive to aztreonam 12/14: Currently resting in bed in no acute distress on 3 L nasal cannula. Overnight on BiPAP/Venturi mask currently on 3 L nasal cannula. Difficult to arouse but once arousable does follow commands in all 4 extremities but weakly. Blood sugar 135. ABG currently pending 12/15: Afebrile. Resting in bed on nasal cannula. Arousable and following commands. Ill-definition due to hypo-tension. I will place arterial line secondary to body habitus. She does not appear septic. She is more awake and alert and attentive today as compared to yesterday. 12/16: Alert and oriented 3, responding to questions appropriately. Arterial line inability to play secondary to body habitus. Patient remained on phenylephrine during the night but now map remains less than 60 will resume phenylephrine infusion, and initiate Midodrine. 12/17: Hemodynamically stable. Phenylephrine infusion off since last night. MAP 80's. Patient alert and oriented, tolerating diet/breakfast. 12/18: Late entry note. Hemodynamically stable. Decrease FiO2 requirements currently on 2 L nasal cannula O2 saturation 97-98 %. RECONSULT 12/19: Patient became hemodynamically unstable this afternoon requiring reinitiation of phenylephrine infusion currently at 70 mcgs/minute. 12/20: Patient became somnolent last evening noted respiratory acidosis around 2 AM. Patient placed back on BiPAP. ID has been consulted for MDR Klebsiella. Patient awake and alert this afternoon, and denies pain. 12/21: Respiratory status much improved, and to remain on BiPAP at night while sleeping. ABGs improved. Patient hemodynamically stable no vasopressor requirements at this time. IV fluids discontinued. Patient tolerating a diet. 12/22: Patient remains a respiratory acidosis, slightly more lethargic today. Patient placed on BiPAP with exception of meals today. Repeat ABG pending this afternoon 12/23: ABG's and neuro status unchanged. Patient remains on BiPAP with exception of meals. Repeat ABG pending this afternoon. Ammonia level ordered. 12/24 Patient is on BIPAP 15/ with 40% . In Afib with RVR 12/25 No events overnight. Remains on BIPAP. Started on Lasix drip per renal 20mg /hr 12/26: Patient remains on BiPAP lethargic. Air entry is diminished on the left side. Chest x-ray shows complete whiteout on the left side with mediastinal shift to the left indicating mucus plugging and left lung collapse. Will proceed with emergency intubation and bronchoscopy (I discussed with Dr. Baca -he will do bronchoscopy at 11:30 AM today) 12/27: Intubated yesterday for severe left lung atelectasis. Underwent bronchoscopy by Dr. Baca. Bronchoscopy showed tracheomalacia and bronchomalacia involving right mainstem bronchi, left mainstem and left upper lobe bronchi. Significant thick mucoid secretions in right upper lobe bronchi, left upper bronchus and also left lower lobe. Moderate endobronchitis. Chest x -ray shows moderate improvement in left upper lobe but persistent dense consolidation middle and lower lung zones. Check CT of the chest stat today 12/28: Afebrile. FiO2 at 30% awake alert and awake. Plan extubation today passes parameters.. 12/29: Afebrile. Extubated yesterday without complications to BiPAP currently at 12/5 at 35%. Tolerated taking pills yesterday. Somewhat lethargic this a.m. but this appears to be her baseline Subjective 12/30: Afebrile. Currently on room air. Tolerating diet. Remove central line today if furosemide drip changed to 40 mg IV [address] Archer. 12/31 Patient is on 3L oxygen. Awake, alert. Afebrile. Off Lasix drip. 01/01 No events overnight. On 3L oxygen. Off BIPAP. Afebrile. 321: Patient has diminished breath sounds left lung, and the left lung is is rc out on CXR with midline shift indicating complete atelectasis. I discussed with her need for bronchoscopy following intubation. Patient is willing for intubation and bronchoscopy. She does not want trach IF she can be extubated, if not extubated in 4-5 days patient is willing to get trach. I gave her the option for palliative care and comfort measures which patient refused. Discussed with Dr. Michelle who is covering fro Dr. Baca 01/03: Patient was intubated yesterday for almost complete left lung collapse. Had bronchoscopy and large amount of thick mucoid secretions removed from left upper and left lower lobe bronchi. Patient has severe bronchomalacia and bronchial narrowing involving left upper and lower lobe bronchi. Currently using large tidal volumes and high PEEP in an attempt to open up the lung. Patient may need permanent trach. Requiring 40 mcg/min of Ion-Synephrine 01/04: Patient remains intubated sedated but wakes up easily. Chest x-ray today shows improved aeration of the left upper and middle lung west, dense consolidation persists left lower lobe. Start weaning PEEP to 10, reduce tidal volumes to 550-600. Initiate vent weaning trials in 24 hours Objective Vital Signs Date Time Temp Pulse Resp B/P (MAP) Pulse Ox O2 Delivery O2 Flow Rate FiO2 01/04/18 08:00 40 01/04/18 08:00 98.9 118 16 115/67 (83) 100 01/02/18 20:00 Mechanical Ventilator 01/02/18 16:00 2.00 Intake and Output 01/04/18 01/04/18 01/05/18 08:00 16:00 00:00 Output Total 630 ml Balance -630 ml Result Diagram: 01/04/18 0540 01/04/18 0540 Imaging Last Impressions Chest X-Ray 12/29/17 0600 Signed Impressions: Service Date/Time: Friday, December 29, 2017 03:16 - CONCLUSION: 1. Improving aeration in the right base with persistent left basilar consolidation/ effusion. Stable cardiomegaly. 2. Interval removal of the endotracheal and nasogastric tubes. Jakob Plunkett MD Chest CT 12/27/17 0000 Signed Impressions: Service Date/Time: December 10:29 - CONCLUSION: 1. Basilar atelectasis and small pleural effusions, increased from November 26. Mild perihilar groundglass opacity present most characteristic of minimal pulmonary edema. 2. Support apparatus as above. Moderate coronary calcifications. Sachin Gonzalez MD Abdomen/Pelvis CT 12/20/17 0000 Signed Impressions: Service Date/Time: December 21:20 - CONCLUSION: Stable appearance to the CT abdomen/pelvis were compared to 11/26/17. Right double-J stent in place, multiple gallstones, left renal mass, left lateral ventral hernia. Dorian Vasquez MD Upper Extremity Ultrasound 12/13/17 0000 Signed Impressions: Service Date/Time: December 13:43 - CONCLUSION: 1. No deep venous thrombosis in the left upper extremity. 2. Superficial thrombosis of the right cephalic vein. El Nuñez MD Lower Extremity Ultrasound 12/13/17 0000 Signed Impressions: Service Date/Time: December 14:26 - CONCLUSION: Normal examination. Domingo Calderon MD Head CT 12/13/17 0000 Signed Impressions: Service Date/Time: December 13:30 - CONCLUSION: Normal examination. Domingo Calderon MD Objective Remarks GENERAL: 67-year-old female lying in bed SKIN: Warm and dry. Lower extremity venous stasis changes HEAD: Atraumatic. Normocephalic. EYES: Pupils equal and round about 3 mm bilaterally and reactive. No scleral icterus. No injection or drainage. ENT: No nasal bleeding or discharge. Orotracheally intubated NECK: Trachea midline. No JVD. CARDIOVASCULAR: IRR. Distant heart tones. S1, S2. No S4. Without murmur RESPIRATORY: Improved air entry left upper chest. GASTROINTESTINAL: Abdomen soft, obese, nontender. Hypoactive bowel sounds are appreciated MUSCULOSKELETAL: Extremities with 1+ bilateral upper and lower extremity edema NEUROLOGICAL: Wakes up easily while on sedation. Moves extremities follows commands Date of Insertion: Dec 13, 2017 Line: Central Venous Catheter Side: Right Location: Internal, Jugular A/P Assessment and Plan Neuro/Psych: Metabolic encephalopathy -improved Chronic benzodiazepine use Depression disorder NOS Diabetic neuropathy Chronic pain syndrome with chronic narcotic use Propofol for sedation, daily sedation vacation continue hydrocodone/acetaminophen 5/325 1 tablet every 6 hours as needed pain Continue sertraline 100 mg p.o. daily for depression Continue pregabalin 75 mg p.o. daily for peripheral neuropathy CT brain 12/13 revealed no acute intracranial findings Acetaminophen 650 mg p.o. every 6 hours as needed fever Alprazolam 1 mg twice daily as needed anxiety-hold while intubated CV: Atrial fibrillation with RVR, now rate controlled Hypertension, now hypotensive Fluid overload Hold Lopressor and Cardizem for borderline low BP. Attempt wean to DC Levophed Monitor HR and BP keep MAP>65mmHg 2D echocardiogram 12/02 - EF 50-55%. The left atrial size is mildly dilated. The right atrial size is moderately dilated. Trace TR Resp: Acute hypoxic, hypercapnic respiratory failure Recurrent left lung collapse/mucus plugging Bronchomalacia, with left airway narrowing and collapse APOLONIA/OHS History recurrent MRSA pneumonia Status post intubation and bronchoscopy 12/26/2017 and extubated 12/28, bronchoscopy showed thick mucoid secretions in left upper lobe left lower lobe and right upper lobe Significant tracheomalacia and bronchomalacia involving the right and left main stem bronchi Now with recurrent collapse of the left lung. Status post intubation and bronchoscopy 01/02/2018, similar findings as above CXR today showing improved aeration, reduce PEEP to 10 start weaning trials in 24 hours Patient requested to be weaned one more time prior to proceeding with tracheostomy Albuterol/ipratropium aerosols every 4 hours with albuterol aerosols every 2 hours as needed dyspnea. Mucomyst Continue budesonide 0.5 mg/2 mL 1 inhalation s every 12 hours Continue Prednisone 20mg BID Dr. Poon pulmonary following. Discussed with Dr. Michelle who is covering GI: BMI greater than 40 Gastroesophageal reflux disease Hypoalbuminemia Tube feeds with nepro. Famotidine for GI prophylaxis. Patient is on famotidine 20 mg p.o. daily at home Docusate sodium/senna 1 tablet twice daily for bowel regimen. Patient is on senna 8.6 mg twice daily at home Having regular bowel movement. Continue ondansetron 4 mg every 6 hours as needed nausea Renal//FEN: Acute on chronic kidney disease J stent placement Monitor renal function, I/O's, avoid nephrotoxins Solitario catheter to maintain patency with recent pyelonephritis/GJ placement. On Lasix 40mg TID, Renal is following, Cr: 2.7 Outpatient J stent removal should be scheduled by urology that was placed during last hospitalization 12/02 12/20 CT abd/pelvis: No hydronephrosis Continue tamsulosin 0.4 mg daily Endo: Diabetes mellitus Acute hypoglycemia-resolved Sliding scale insulin with Novolin R with Accu-Cheks to maintain euglycemia every 6 hours low regimen Heme: Leukocytosis Normocytic anemia Chronic Rivaroxaban use Right cephalic vein superficial thrombus Monitor CBC On rivaroxaban 10 mg daily-hold due to Cr cl <30. Start IV heprin ID: Urinary tract infection/MDR Klebsiella History of MRSA History of C. difficile Blood cx 12/20 Leni avila Currently on PO vancomycin , ceftazidime/avibactam and fluconazole per ID. 1 dose of vanc given 12/26 Monitor for signs of infections (Fever, WBC) Pertinent cultures Urine Legionella pneumococcal antigens negative Urine culture 12/13 Klebsiella ESBL positive positive Blood culture 12/20: LENI GREWAL Access -Peripheral IV's Prophylaxis -GI -famotidine -DVT -SCD/rivaroxaban. hold due to Cr cl <30. Start IV heparin Level 3 Yoandy Amador MD Jan 04, 2018 10:44
[2018-01-04 10:50] LABS: BANDS 6 % (0-6); LYMPHOCYTES 9 % (9-44); METAMYELOCYTES 1 % (0-1); MONOCYTES 7 % (0-8); MYELOCYTES 3 % (0-0); NEUTROPHIL # MANUAL DIFF 9.2 TH/MM3 (1.8-7.7); POLYS (SEG NEUTROPHILS) 74 % (16-70)
--- NOTE | 2018-01-04 11:45 | HHI.NPPN ---
Subjective Complaints: Shortness of Breath Renal Failure: Acute Interval History Tachycardic. Hypotensive yesterday, phenylephrine stopped this AM. They are preparing for A line placement to confirm BP readings as her edema makes obtaining NIBP measurement difficult and questionable accuracy. She is awake, on the vent. Renal function is slightly worse. (Suad Lucas) Review of Systems General General Remarks unable to obtain (Suad Lucas) Cardiovascular Cardiac: Edema (Suad Lucas) Objective Data Data Vital Signs Date Time Temp Pulse Resp B/P (MAP) Pulse Ox O2 Delivery O2 Flow Rate FiO2 01/04/18 11:09 99 40 01/04/18 10:00 112 01/04/18 08:00 40 01/04/18 08:00 98.9 118 16 115/67 (83) 100 01/04/18 08:00 117 01/04/18 07:30 99 40 01/04/18 06:34 18 01/04/18 06:00 104 01/04/18 04:00 103 01/04/18 04:00 98.9 106 18 111/68 (82) 100 01/04/18 04:00 40 01/04/18 03:38 100 40 01/04/18 02:00 97 01/04/18 00:00 40 01/04/18 00:00 117 01/04/18 00:00 98.6 111 19 116/68 (84) 100 01/03/18 23:24 94 40 01/03/18 22:00 111 01/03/18 20:57 100 40 01/03/18 20:00 40 01/03/18 20:00 106 01/03/18 20:00 98.6 106 19 114/61 (78) 100 01/03/18 18:00 108 01/03/18 16:00 98.3 108 16 127/59 (81) 100 01/03/18 16:00 103 01/03/18 16:00 100 40 01/03/18 16:00 40 01/03/18 14:00 102 01/03/18 12:00 101 01/03/18 12:00 98.1 101 16 127/59 (81) 100 01/03/18 12:00 40 (Suad Lucas) -: 01/04/18 0540 01/04/18 0540 Microbiology 01/03/18 Gram Stain - Final, Resulted 01/03/18 Sputum Culture - Preliminary, Resulted NO GROWTH IN 24 HOURS. Imaging Last 72 hours Impressions Chest X-Ray 01/04/18 0600 Signed Impressions: Service Date/Time: Thursday, January 04, 2018 04:15 - CONCLUSION: 1. Interval improvement in opacity in the left lung with aeration now noted in the upper lobe and perihilar region. Dense consolidation remains in the left lung base. 2. The patient is rotated to the left. Chintan Marshall MD Chest X-Ray 01/03/18 0000 Signed Impressions: Service Date/Time: December 08:38 - CONCLUSION: 1. Stable ETT. NGT beyond the GE junction. 2. Persistent diffuse opacification of the left hemithorax with associated volume loss. 3. No significant interval change. Riccardo Stack MD Chest X-Ray 01/02/18 0000 Signed Impressions: Service Date/Time: Tuesday, January 02, 2018 17:42 - CONCLUSION: 1. Post bronchoscopy without pneumothorax. Slight improvement in aeration in the upper left lung. Sachin Gonzalez MD Chest X-Ray 01/02/18 0000 Signed Impressions: Service Date/Time: Tuesday, January 02, 2018 12:33 - CONCLUSION: 1. The endotracheal tube tip is at the orifice of the left mainstem bronchus. Recommend pullback by 3 cm. 2. No change in the complete opacification of the left hemithorax. Sanya Carter MD Chest X-Ray 01/02/18 0000 Signed Impressions: Service Date/Time: Tuesday, January 02, 2018 02:24 - CONCLUSION: Complete white out of the left hemithorax with no aerated lung seen on the left side. The right lung is clear. Dorian Vasquez MD Tubes & Lines: Solitario Drip Comment propofol (Suad Lucas) Physical Exam General Appearance: Well Developed, No Acute Distress, Comfortable, Obese (Suad Lucas) Throat Throat Exam: Oral Mucosa [place] & Moist (Suad Lucas) Pulmonary Resp Exam: Clear Bilaterally, Breath Sounds Equal, No Distress, Rhonchi, Decreased Bases, Diminished Breath Sounds Resp Remarks minimal air movement on left (Suad Lucas) Cardiology CV Exam: Good Perfusion, Irregular, Tachycardia (Suad Lucas) Gastrointestinal/Abdomen GI Exam: Soft, Non-Tender, Bowel Sounds Present GI Remarks super morbidly obese (Suad Lucas) Musculoskeletal MS Exam: Joints Intact, Normal Tone, Unable to Ambulate (Suad Lucas) Integumentary Skin Exam: Warm, Dry, Intact (Suad Lucas) Extremeties Extremities Exam: Pedal Pulses Palpable, Moderate Edema, Dependent Edema (Suad Lucas) Neurologic Neuro Exam: Awake, Moving All Extremities, Unresponsive, Sedated (Suad Lucas) Psychiatric Psych Exam: Appropriate Responses (Suad Lucas) VTE Prophylaxis Device: SCDs (Suad Lucas) Assessment/Plan Discussed Condition With: Patient Assessment Summary: FREDDY/Acute Renal Failure, Fluid/Volume Overload, Hypotension Problem List: (1) FREDDY (acute kidney injury) ICD Codes: N17.9 - Acute kidney failure, unspecified Plan: Her best creatinine at discharge was 1.2 Initially she my have suffered vancomycin induced nephrotoxicity More recently has been hypotensive, most likely has suffered hypoperfusion injury, possibly ATN, also due to sepsis with UTI. Renal function is slightly worse Avoid hypotension, A line to be placed today for accuracy of BP readings. Continue Lasix 40 mg IV, but increase to TID, she has extensive edema that is worsening. D/W Dr. Amador, he will manage hypotension. Give albumin. Follow urine output, it appears it has improved Repeat labs in AM Monitor urine output (2) Respiratory failure ICD Codes: J96.90 - Respiratory failure, unspecified, unspecified whether with hypoxia or hypercapnia Plan: s/p intubation, s/p 2nd bronchoscopy with suctioning/bronchial washing first bronchoscopy with multiple mucous plugs identified and suctioned. Also has tracheomalacia and bronchomalacia pulmonary following Continue diuresis cultures are negative (3) Hypernatremia ICD Codes: E87.0 - Hyperosmolality and hypernatremia Plan: Improved (4) UTI (urinary tract infection) ICD Codes: N39.0 - Urinary tract infection, site not specified Plan: ID is following. She is on Avycaz, stop date extended to 01/09. Has MDRO Klebsiella Sp. Contact precautions (5) Pneumonia ICD Codes: J18.9 - Pneumonia, unspecified organism Status: Acute Plan: See above. ID is following. On IV Avycaz. (6) C. difficile colitis ICD Codes: A04.72 - Enterocolitis due to Clostridium difficile, not specified as recurrent Plan: Tested Nov 22, has been on treatment since then. Consider stopping and monitoring off PO vancomycin (currently taper) Contact precautions. (7) Anemia ICD Codes: D64.9 - Anemia, unspecified Plan: No evidence of iron deficiency Monitor hemoglobin (8) Afib ICD Codes: I48.91 - Unspecified atrial fibrillation Status: Chronic Plan: tachycardic today, intermittently hypotensive On PO Cardizem (has been held), also on metoprolol to 50 BID (hold PRN hypotension) Plan (Suad Lucas) Plan patient was seen and examined. Lasix was increased. Renal function is about the same as before. Agree with above assessment and plan. (Mohinder Lopez MD) Problem Qualifiers (1) Afib: Qualified Codes: I48.2 - Chronic atrial fibrillation Suad Lucas Jan 04, 2018 11:45 Mohinder Lopez MD Jan 04, 2018 15:04
[2018-01-04 12:41] LABS: HEMATOCRIT 23.2 % (35.0-46.0); HEMOGLOBIN 7.6 GM/DL (11.6-15.3); MEAN CELL VOLUME 90.3 FL (80.0-100.0); MEAN CORPUSCULAR HEMOGLOBIN 29.5 PG (27.0-34.0); MEAN CORPUSCULAR HGB CONC 32.7 % (32.0-36.0); MEAN PLATELET VOLUME 9.6 FL (7.0-11.0); PLATELET COUNT 148 TH/MM3 (150-450); RED BLOOD COUNT 2.57 MIL/MM3 (4.00-5.30); WHITE BLOOD COUNT 11.2 TH/MM3 (4.0-11.0)
[2018-01-04 12:52] LABS: INTERNATIONAL NORMALIZED RATIO 1.2 RATIO
[2018-01-04] MEDS: ALBUMIN 25% INJ 100 ML IV SCH ×2 (14:53→23:07)
[2018-01-04] MEDS: PROPOFOL 1000 MG/100 ML INJ 100 ML IV PRN ×2 (15:09→21:11)
--- NOTE | 2018-01-04 18:25 | HHI.PR ---
Addendum to Inpatient Note Additional Information Pt seen earliuer today around 1200 Full note to follow Kari Alfaro MD Jan 04, 2018 18:25
[2018-01-04] MEDS: FAMOTIDINE 20 MG TAB PO SCH (20:12)
--- NOTE | 2018-01-04 23:35 | HHI.IDPN ---
Subjective Subjective Remarks ID X cover chart was reviewed afebrile remains on vent PEEP up very edematous sputum clx - no growth so far Antibiotics Avycaz - to finish 01/09 PO Vanco - tapering Lines Line no evidence of infection Past Medical History Chronic respiratory failure secondary to APOLONIA, OHS and bronchial asthma Atrial fibrillation rate controlled Hypertension Dyslipidemia Gastroesophageal reflux disease Elevated BMI greater than 50 Recurrent MRSA pneumonia Depression Constipation Past Surgical History JJ stent placement by urology Hiatal hernia surgery Appendectomy Percutaneous tracheostomy by Dr. Mullins since decannulated Allergies: Coded Allergies: penicillin G (Unverified Allergy, Severe, 05/29/17) Objective . Vital Signs Date Time Temp Pulse Resp B/P (MAP) Pulse Ox O2 Delivery O2 Flow Rate FiO2 01/04/18 22:00 112 01/04/18 20:11 100 40 01/04/18 20:00 40 01/04/18 20:00 98.7 111 16 111/76 (88) 100 01/04/18 20:00 111 01/04/18 18:00 114 01/04/18 16:00 40 01/04/18 16:00 97.7 112 17 106/59 (75) 100 01/04/18 16:00 112 01/04/18 14:59 100 40 01/04/18 14:00 115 16 107/60 (76) 100 01/04/18 14:00 115 01/04/18 12:00 113 01/04/18 12:00 113 16 138/87 (104) 01/04/18 12:00 40 01/04/18 11:09 99 40 01/04/18 10:00 112 01/04/18 08:00 40 01/04/18 08:00 98.9 118 16 115/67 (83) 100 01/04/18 08:00 117 01/04/18 07:30 99 40 01/04/18 06:34 18 01/04/18 06:00 104 01/04/18 04:00 103 01/04/18 04:00 98.9 106 18 111/68 (82) 100 01/04/18 04:00 40 01/04/18 03:38 100 40 01/04/18 02:00 97 01/04/18 00:00 40 01/04/18 00:00 117 01/04/18 00:00 98.6 111 19 116/68 (84) 100 01/04/18 01/04/18 01/05/18 15:00 23:00 07:00 Intake Total 50 ml 1142 ml Output Total 650 ml Balance 50 ml 492 ml IV Total 50 ml 100 ml Tube Irrigant 862 ml Other 180 ml Output Urine Total 650 ml # Bowel Movements 1 . Laboratory Tests Test 01/04/18 05:40 01/04/18 11:57 White Blood Count 11.0 TH/MM3 11.2 TH/MM3 Red Blood Count 2.68 MIL/MM3 2.57 MIL/MM3 Hemoglobin 8.0 GM/DL 7.6 GM/DL Hematocrit 24.1 % 23.2 % Mean Corpuscular Volume 90.0 FL 90.3 FL Mean Corpuscular Hemoglobin 29.9 PG 29.5 PG Mean Corpuscular Hemoglobin Concent 33.2 % 32.7 % Red Cell Distribution Width 22.3 % 22.0 % Platelet Count 146 TH/MM3 148 TH/MM3 Mean Platelet Volume 10.0 FL 9.6 FL Neutrophils (%) (Auto) 87.7 % Lymphocytes (%) (Auto) 5.0 % Monocytes (%) (Auto) 6.8 % Eosinophils (%) (Auto) 0.1 % Basophils (%) (Auto) 0.4 % Neutrophils # (Auto) 9.7 TH/MM3 Lymphocytes # (Auto) 0.5 TH/MM3 Monocytes # (Auto) 0.7 TH/MM3 Eosinophils # (Auto) 0.0 TH/MM3 Basophils # (Auto) 0.0 TH/MM3 CBC Comment AUTO DIFF Differential Total Cells Counted 100 Neutrophils % (Manual) 74 % Band Neutrophils % 6 % Lymphocytes % 9 % Monocytes % 7 % Neutrophils # (Manual) 9.2 TH/MM3 Metamyelocytes 1 % Myelocytes 3 % Differential Comment FINAL DIFF MANUAL Platelet Estimate NORMAL Platelet Morphology Comment NORMAL Hematology Comments Laboratory Tests Test 01/03/18 08:33 01/04/18 05:40 Blood Urea Nitrogen 46 MG/DL 48 MG/DL Creatinine 2.58 MG/DL 2.70 MG/DL Random Glucose 89 MG/DL 91 MG/DL Albumin 2.3 GM/DL 2.6 GM/DL Calcium Level 7.9 MG/DL 7.6 MG/DL Phosphorus Level 4.1 MG/DL Sodium Level 140 MEQ/L 145 MEQ/L Potassium Level 3.8 MEQ/L 3.5 MEQ/L Chloride Level 107 MEQ/L 108 MEQ/L Carbon Dioxide Level 17.7 MEQ/L 18.8 MEQ/L Anion Gap 15 MEQ/L 18 MEQ/L Estimat Glomerular Filtration Rate 18 ML/MIN 18 ML/MIN Total Protein 5.6 GM/DL Magnesium Level 1.8 MG/DL Alkaline Phosphatase 76 U/L Aspartate Amino Transf (AST/SGOT) 10 U/L Alanine Aminotransferase (ALT/SGPT) 10 U/L Total Bilirubin 0.5 MG/DL Microbiology Date/Time Source Procedure Growth Status 01/03/18 18:23 Sputum Expectorated Sputum Gram Stain - Final Resulted 01/03/18 18:23 Sputum Expectorated Sputum Sputum Culture - Preliminary NO GROWTH IN 24 HOURS. Resulted 01/02/18 14:20 Sputum Endotracheal Gram Stain - Final Complete 01/02/18 14:20 Sputum Endotracheal Sputum Culture - Final LIGHT GROWTH NORMAL RESPIRATORY BERNA Complete Imaging Last Impressions Chest X-Ray 01/04/18 0600 Signed Impressions: Service Date/Time: Thursday, January 04, 2018 04:15 - CONCLUSION: 1. Interval improvement in opacity in the left lung with aeration now noted in the upper lobe and perihilar region. Dense consolidation remains in the left lung base. 2. The patient is rotated to the left. Chintan Marshall MD Chest CT 12/27/17 0000 Signed Impressions: Service Date/Time: December 10:29 - CONCLUSION: 1. Basilar atelectasis and small pleural effusions, increased from November 26. Mild perihilar groundglass opacity present most characteristic of minimal pulmonary edema. 2. Support apparatus as above. Moderate coronary calcifications. Sachin Gonzalez MD Abdomen/Pelvis CT 12/20/17 0000 Signed Impressions: Service Date/Time: December 21:20 - CONCLUSION: Stable appearance to the CT abdomen/pelvis were compared to 11/26/17. Right double-J stent in place, multiple gallstones, left renal mass, left lateral ventral hernia. Dorian Vasquez MD Upper Extremity Ultrasound 12/13/17 0000 Signed Impressions: Service Date/Time: December 13:43 - CONCLUSION: 1. No deep venous thrombosis in the left upper extremity. 2. Superficial thrombosis of the right cephalic vein. El Nuñez MD Lower Extremity Ultrasound 12/13/17 0000 Signed Impressions: Service Date/Time: December 14:26 - CONCLUSION: Normal examination. Domingo Calderon MD Head CT 12/13/17 0000 Signed Impressions: Service Date/Time: December 13:30 - CONCLUSION: Normal examination. Domingo Calderon MD Physical Exam GENERAL: Sedated on the vent, NAD SKIN: Cool and dry. No generalized rash HEAD: Atraumatic. Normocephalic. No temporal wasting, or tenderness. EYES: [place] conjunctiva. No petechia or hemorrhage. Pupils equal, round and reactive to light. No scleral icterus. EARS, NOSE AND THROAT: Nose without bleeding or purulent nasal discharge. Moist mucosa NECK: Trachea midline. Supple and not tender, no meningeal signs CARDIOVASCULAR: Regular rate and rhythm. No murmurs, rubs or gallops heard RESPIRATORY: Decreased breath sounds R base, markedly decreased whole L side ABDOMEN: Soft, obese, no reaction to palpation, nondistended. Edematous Bowel sounds present and normoactive. EXTREMITIES: No clubbing, cyanosis. Prominent pitting diffuse edema. No calf tenderness. . NEUROLOGICAL: Sedated PSYCH: Unable to assess LINE: Line no evidence of infection Assessment & Plan Remarks IMPRESSION UTI, with Klebsiella Kleb MDR CRE ESBL+ Previous episode of complicated UTI,, has stent in place, had obstruction - CT A/P looks ok, stent in place, no hydro Known APOLONIA Respiratory failure, chronically on BIPAP mask - CXR with white out L, due to plugging, atelectasis - ?PNA - bronch C/S negative - extubated 12/28, reintubated 01/02 - has tracheomalacia seen on bronchoscopy Obesity Renal insufficiency, chronic Allergy to PCN, tolerates Cephalosporins Hx C diff colitis - recent episode during last admission [place] sepsis, sp tx New episode of PNA vs mucous plugging RECOMMENDATION Continue Avycaz in the viewe of worsening resp status, suspected PNA fu clx will de-escalate when resp clx available Continue po Vanco taper Monitor pulmonary status Monitor progress Will likely need trach dw Dr Perry Alfaro,Kari Saucedo MD Jan 04, 2018 23:35
[2018-01-05] VITALS (20 sets, daily range): BP systolic 108–119; BP diastolic 57–76; PULSE 86–117; RESP 15–17; TEMP 97.7–98.8; O2SAT 98–100
[2018-01-05] MEDS: CHLORHEXIDINE GLUCONATE 2 % 1 PACK (2 CLOTHS) TOP SCH (02:55)
[2018-01-05] MEDS: PROPOFOL 1000 MG/100 ML INJ 100 ML IV PRN ×4 (03:18→20:19)
[2018-01-05] MEDS: RESP: ALBUTEROL 2.5 MG/IPRATROPIUM 0.5 MG NEB (SCH) NEB ×6 (03:52→23:30)
[2018-01-05] MEDS: RESP: ACETYLCYSTEINE 20% 30 ML NEB NEB SCH ×6 (03:52→23:30)
--- NOTE | 2018-01-05 04:31 | RADRPT ---
EXAM DATE/TIME: 01/05/2018 03:04 [facility] COMPARISON: CHEST SINGLE AP, January 04, 2018, 4:15. INDICATIONS : Shortness of breath, possible pulmonary disease. MEDICAL HISTORY : Hypertension. Diabetes mellitus type II. Cardiovascular disease. SURGICAL HISTORY : None. ENCOUNTER: Subsequent ACUITY: 1 month PAIN SCORE: Non-responsive. LOCATION: Bilateral chest FINDINGS: A single AP semierect view of the chest was obtained. Volume loss is again noted in the left hemithor ax with new sternal shift to the left. The right lung appears mildly hyperinflated. Abnormal opacity remains at the left lung base and is not appear significantly changed. Left costophrenic angle remain s blunted. The heart size is moderately enlarged. Nasogastric tube is again visualized and is seen co ursing through the esophagus. The endotracheal tube remains in place with the tip approximately 3 cm above the m[place]. The study remains mildly rotated. There is apparent cutoff of the left mainstem bro nchus which could be secondary to mucous plugging. CONCLUSION: 1. Volume loss and mediastinal shift remain in the left lower lobe. There is apparent cutoff of the l eft mainstem bronchus and could be secondary to mucous plugging. 2. Dense opacity remains at the left lung base with blunting of the costophrenic angle. This could re present pneumonia and/or atelectasis. Chintan Marshall MD on January 05, 2018 at 4:26 Board Certified Radiologist. This report was verified electronically.
[2018-01-05] MEDS: ARTIFICIAL TEARS OPTH SOLN 15 ML BTL EACH EYE SCH ×3 (06:26→20:20)
[2018-01-05 07:32] LABS: ALBUMIN 3.1 GM/DL (3.4-5.0); AST (GOT) 11 U/L (15-37); BICARBONATE 20.3 MEQ/L (21.0-32.0); BLOOD UREA NITROGEN 50 MG/DL (7-18); CALCIUM 8.2 MG/DL (8.5-10.1); CHLORIDE 106 MEQ/L (98-107); GLOMERULAR FILTRATION RATE 16 ML/MIN (>89); GLUCOSE,RANDOM 142 MG/DL (74-106); SODIUM (NA) 143 MEQ/L (136-145)
[2018-01-05 07:33] LABS: ALT (GPT) 10 U/L (10-53)
[2018-01-05 07:35] LABS: ALKALINE PHOSPHATASE 69 U/L (45-117); TOTAL BILIRUBIN ADULT 0.5 MG/DL (0.2-1.0); TOTAL PROTEIN 5.7 GM/DL (6.4-8.2)
[2018-01-05] MEDS: RESP: BUDESONIDE 0.5 MG/2 ML NEB NEB SCH ×2 (07:55→19:39)
[2018-01-05] MEDS: SERTRALINE HCL 100 MG TAB PO SCH (08:35)
[2018-01-05] MEDS: predniSONE 20 MG TAB PO SCH ×2 (08:35→20:18)
[2018-01-05] MEDS: LACTOBACILLUS ACIDOPHILUS TAB PO SCH ×2 (08:35→16:35)
[2018-01-05] MEDS: METOPROLOL TARTRATE 50 MG TAB PO SCH ×2 (08:35→20:18)
[2018-01-05] MEDS: VANCOMYCIN 25 MG/ML SOLN 100 ML BOTTLE PO SCH ×2 (08:35→20:19)
[2018-01-05] MEDS: MUPIROCIN 2% OINT 1 APPLIC/GM SYR EACH NARE SCH ×2 (08:35→20:18)
[2018-01-05] MEDS: PREGABALIN 75 MG CAP PO SCH (08:35)
[2018-01-05] MEDS: ASCORBIC ACID 500 MG TAB PO SCH ×2 (08:35→20:19)
[2018-01-05] MEDS: DOCUSATE SODIUM 50 MG/SENNA 8.6 MG TAB PO SCH ×2 (08:35→20:19)
[2018-01-05] MEDS: CHLORHEXIDINE 0.12% (ORAL KIT) 15 ML CUP MT SCH ×2 (08:36→20:00)
[2018-01-05] MEDS: SODIUM CHLORIDE 0.9% FLUSH 10 ML FLUSH IV FLUSH SCH ×2 (08:36→20:18)
[2018-01-05] MEDS: TAMSULOSIN HCL 0.4 MG CAP PO SCH (08:36)
[2018-01-05] MEDS: NYSTATIN 100,000 U/GM PWD 15 GM BTL TOPICAL SCH ×2 (09:00→21:09)
[2018-01-05] MEDS: INSULIN NovoLIN REGULAR SUPPLEMENTAL SCALE SQ SCH ×4 (09:14→20:19)
[2018-01-05] MEDS: cefTAZidime/AVIBACTAM INJ 0.94 GM in SODIUM CHLORIDE 0.9% INJ 50 ML IV SCH ×2 (09:14→20:18)
[2018-01-05] MEDS: FUROSEMIDE 40 MG/4 ML VIAL IV PUSH SCH ×2 (10:51→16:35)
[2018-01-05] MEDS ORDERED: POTASSIUM CHLORIDE 25 MEQ EFFERVESCENT TAB PO ONE (11:00)
[2018-01-05] MEDS: POTASSIUM CHLOR 20 MEQ PREMIX 100 ML IV SCH ×6 (11:20→21:09)
--- NOTE | 2018-01-05 12:20 | HHI.NPPN ---
Subjective Complaints: Shortness of Breath Renal Failure: Acute Review of Systems General General Remarks unable to obtain Cardiovascular Cardiac: Edema Objective Data Data Vital Signs Date Time Temp Pulse Resp B/P (MAP) Pulse Ox O2 Delivery O2 Flow Rate FiO2 01/05/18 11:02 100 40 01/05/18 10:00 86 01/05/18 08:00 97.7 117 16 118/73 (88) 100 01/05/18 08:00 117 01/05/18 08:00 40 01/05/18 07:56 100 40 01/05/18 06:00 98 01/05/18 04:00 98.5 106 16 108/57 (74) 100 01/05/18 04:00 40 01/05/18 04:00 106 01/05/18 03:53 100 40 01/05/18 02:00 108 01/05/18 00:00 110 01/05/18 00:00 40 01/05/18 00:00 98.8 110 15 118/76 (90) 100 01/04/18 23:59 100 40 01/04/18 22:00 112 01/04/18 20:11 100 40 01/04/18 20:00 40 01/04/18 20:00 98.7 111 16 111/76 (88) 100 01/04/18 20:00 111 01/04/18 18:00 114 01/04/18 16:00 40 01/04/18 16:00 97.7 112 17 106/59 (75) 100 01/04/18 16:00 112 01/04/18 14:59 100 40 01/04/18 14:00 115 16 107/60 (76) 100 01/04/18 14:00 115 -: 01/04/18 1157 01/05/18 0540 Tubes & Lines: Solitario Drip Comment propofol Physical Exam General Appearance: Well Developed, No Acute Distress, Comfortable, Obese Throat Throat Exam: Oral Mucosa [place] & Moist Pulmonary Resp Exam: Clear Bilaterally, Breath Sounds Equal, No Distress, Rhonchi, Decreased Bases, Diminished Breath Sounds Cardiology CV Exam: Good Perfusion, Irregular, Tachycardia Gastrointestinal/Abdomen GI Exam: Soft, Non-Tender, Bowel Sounds Present Musculoskeletal MS Exam: Joints Intact, Normal Tone, Unable to Ambulate Integumentary Skin Exam: Warm, Dry, Intact Extremeties Extremities Exam: Pedal Pulses Palpable, Moderate Edema, Dependent Edema Neurologic Neuro Exam: Awake, Moving All Extremities, Unresponsive, Sedated Psychiatric Psych Exam: Appropriate Responses VTE Prophylaxis Device: SCDs Assessment/Plan Discussed Condition With: Patient Assessment Summary: FREDDY/Acute Renal Failure, Fluid/Volume Overload, Hypotension Problem List: (1) FREDDY (acute kidney injury) ICD Codes: N17.9 - Acute kidney failure, unspecified Plan: Her best creatinine at discharge was 1.2 Initially she my have suffered vancomycin induced nephrotoxicity More recently has been hypotensive, most likely has suffered hypoperfusion injury, possibly ATN, also due to sepsis with UTI. Renal function is slightly worse Avoid hypotension, A line to be placed today for accuracy of BP readings. Continue Lasix 40 mg IV, TID, she has extensive edema that is worsening. . Give albumin. Follow urine output, it appears it has improved Repeat labs in AM Monitor urine output (2) Respiratory failure ICD Codes: J96.90 - Respiratory failure, unspecified, unspecified whether with hypoxia or hypercapnia Plan: s/p intubation, s/p 2nd bronchoscopy with suctioning/bronchial washing first bronchoscopy with multiple mucous plugs identified and suctioned. Also has tracheomalacia and bronchomalacia pulmonary following Continue diuresis cultures are negative (3) Hypernatremia ICD Codes: E87.0 - Hyperosmolality and hypernatremia Plan: Improved (4) UTI (urinary tract infection) ICD Codes: N39.0 - Urinary tract infection, site not specified Plan: ID is following. She is on Avycaz, stop date extended to 01/09. Has MDRO Klebsiella Sp. Contact precautions (5) Pneumonia ICD Codes: J18.9 - Pneumonia, unspecified organism Status: Acute Plan: See above. ID is following. On IV Avycaz. (6) C. difficile colitis ICD Codes: A04.72 - Enterocolitis due to Clostridium difficile, not specified as recurrent Plan: Tested Nov 22, has been on treatment since then. Consider stopping and monitoring off PO vancomycin (currently taper) Contact precautions. (7) Anemia ICD Codes: D64.9 - Anemia, unspecified Plan: No evidence of iron deficiency Monitor hemoglobin (8) Afib ICD Codes: I48.91 - Unspecified atrial fibrillation Status: Chronic Plan: tachycardic today, intermittently hypotensive On PO Cardizem (has been held), also on metoprolol to 50 BID (hold PRN hypotension) Problem Qualifiers (1) Afib: Qualified Codes: I48.2 - Chronic atrial fibrillation Lisandra Thao MD Jan 05, 2018 12:20
--- NOTE | 2018-01-05 13:38 | HHI.PR ---
Subjective Remarks Covering for Dr. Domingo Michelle was covering for Dr. Butt still critically ill. On a mechanical ventilator intubated. Objective Vital Signs Date Time Temp Pulse Resp B/P (MAP) Pulse Ox O2 Delivery O2 Flow Rate FiO2 01/05/18 11:02 100 40 01/05/18 10:00 86 01/05/18 09:35 16 01/05/18 08:00 97.7 117 16 118/73 (88) 100 01/05/18 08:00 117 01/05/18 08:00 40 01/05/18 07:56 100 40 01/05/18 06:00 98 01/05/18 04:00 98.5 106 16 108/57 (74) 100 01/05/18 04:00 40 01/05/18 04:00 106 01/05/18 03:53 100 40 01/05/18 02:00 108 01/05/18 00:00 110 01/05/18 00:00 40 01/05/18 00:00 98.8 110 15 118/76 (90) 100 01/04/18 23:59 100 40 01/04/18 22:00 112 01/04/18 20:11 100 40 01/04/18 20:00 40 01/04/18 20:00 98.7 111 16 111/76 (88) 100 01/04/18 20:00 111 01/04/18 18:00 114 01/04/18 16:00 40 01/04/18 16:00 97.7 112 17 106/59 (75) 100 01/04/18 16:00 112 01/04/18 14:59 100 40 01/04/18 14:00 115 16 107/60 (76) 100 01/04/18 14:00 115 I/O 01/04/18 01/04/18 01/04/18 01/05/18 01/05/18 01/05/18 07:00 15:00 23:00 07:00 15:00 23:00 Intake Total 50 ml 1292 ml 913 ml Output Total 630 ml 650 ml 500 ml Balance -630 ml 50 ml 642 ml 413 ml IV Total 50 ml 250 ml 252 ml Tube Feeding 601 ml Tube Irrigant 862 ml Other 180 ml 60 ml Output Urine Total 630 ml 650 ml 500 ml # Bowel Movements 0 1 2 Result Diagram: 01/04/18 1157 01/05/18 0540 Objective Remarks GENERAL: 67-year-old female lying in bed SKIN: Warm and dry. Lower extremity venous stasis changes HEAD: Atraumatic. Normocephalic. EYES: Pupils equal and round reactive. No scleral icterus. ENT: No nasal bleeding or discharge. Orotracheally intubated NECK: Trachea midline. No JVD. CARDIOVASCULAR:. Distant heart tones. S1, S2. RESPIRATORY: Decreased breath sounds bilateral and left-sided crackles GASTROINTESTINAL: Abdomen soft, obese, nontender. Hypoactive bowel sounds are appreciated MUSCULOSKELETAL: Extremities with edema NEUROLOGICAL: Wakes up easily while on sedation. Moves extremities follows commands Assessment and Plan Assessment and Plan Hypoxic and hypercapnic respiratory failure Mucous plugging Atrial fibrillation Volume overload Renal failure Chronic benzodiazepine use Depression disorder NOS Diabetic neuropathy Chronic pain syndrome with chronic narcotic use Morbid obesity Overall poor prognosis Plan: I do not believe the patient is a candidate for weaning. The patient may require long-term tracheostomy. At some point the patient may benefit from bronchoscopy. Continue sedation as needed. Continue current antibiotics. Avoid volume overload and optimize volume status as possible. 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 Continue to follow. She will need placement Call if needed. Ajith Clemente MD Jan 05, 2018 13:38
[2018-01-05] MEDS: ALBUMIN 5% INJ 500 ML IV SCH (16:34)
--- NOTE | 2018-01-05 16:48 | HHI.CCPN ---
Subjective Remarks/Hospital Course This is a 67-year-old female. Date of admission 12/13/2017. Past medical history includes elevated BMI, chronic asthma on chronic oxygen, atrial fibrillation/rate controlled, hypertension dyslipidemia. Today, patient presents to [facility] emergency department after being found unresponsive at the long term. She was just discharged from the hospital 12/10/2017 from [facility]. She is morbidly obese with multiple severe chronic illnesses and was both in respiratory distress and decreased responsiveness at the same time. She was noted to be hypoxic with saturations in the e 80s with nasal cannula. Was brought in on BiPAP. Accu-Chek was in the 30s when paramedics found her. Initial GCS was reported as 3. She received some D10 through a right arm PICC line but upon arrival staff felt that the PICC line was not working properly. Patient cannot provide any history or review of systems. She arrives critically ill Patient received D50 and a central line in the right internal jugular was placed by ED physician as no significant access was available. Chest x-ray revealed no acute cardiopulmonary findings. After being placed on BiPAP and receiving glucose patient's mentation is much improved and likely can be removed in the ICU. Less confused when evaluated in the ED. UA is positive. Previous history of Pseudomonas sensitive to aztreonam 12/14: Currently resting in bed in no acute distress on 3 L nasal cannula. Overnight on BiPAP/Venturi mask currently on 3 L nasal cannula. Difficult to arouse but once arousable does follow commands in all 4 extremities but weakly. Blood sugar 135. ABG currently pending 12/15: Afebrile. Resting in bed on nasal cannula. Arousable and following commands. Ill-definition due to hypo-tension. I will place arterial line secondary to body habitus. She does not appear septic. She is more awake and alert and attentive today as compared to yesterday. 12/16: Alert and oriented 3, responding to questions appropriately. Arterial line inability to play secondary to body habitus. Patient remained on phenylephrine during the night but now map remains less than 60 will resume phenylephrine infusion, and initiate Midodrine. 12/17: Hemodynamically stable. Phenylephrine infusion off since last night. MAP 80's. Patient alert and oriented, tolerating diet/breakfast. 12/18: Late entry note. Hemodynamically stable. Decrease FiO2 requirements currently on 2 L nasal cannula O2 saturation 97-98 %. RECONSULT 12/19: Patient became hemodynamically unstable this afternoon requiring reinitiation of phenylephrine infusion currently at 70 mcgs/minute. 12/20: Patient became somnolent last evening noted respiratory acidosis around 2 AM. Patient placed back on BiPAP. ID has been consulted for MDR Klebsiella. Patient awake and alert this afternoon, and denies pain. 12/21: Respiratory status much improved, and to remain on BiPAP at night while sleeping. ABGs improved. Patient hemodynamically stable no vasopressor requirements at this time. IV fluids discontinued. Patient tolerating a diet. 12/22: Patient remains a respiratory acidosis, slightly more lethargic today. Patient placed on BiPAP with exception of meals today. Repeat ABG pending this afternoon 12/23: ABG's and neuro status unchanged. Patient remains on BiPAP with exception of meals. Repeat ABG pending this afternoon. Ammonia level ordered. 12/24 Patient is on BIPAP 15/ with 40% . In Afib with RVR 12/25 No events overnight. Remains on BIPAP. Started on Lasix drip per renal 20mg /hr 12/26: Patient remains on BiPAP lethargic. Air entry is diminished on the left side. Chest x-ray shows complete whiteout on the left side with mediastinal shift to the left indicating mucus plugging and left lung collapse. Will proceed with emergency intubation and bronchoscopy (I discussed with Dr. Baca -he will do bronchoscopy at 11:30 AM today) 12/27: Intubated yesterday for severe left lung atelectasis. Underwent bronchoscopy by Dr. Baca. Bronchoscopy showed tracheomalacia and bronchomalacia involving right mainstem bronchi, left mainstem and left upper lobe bronchi. Significant thick mucoid secretions in right upper lobe bronchi, left upper bronchus and also left lower lobe. Moderate endobronchitis. Chest x -ray shows moderate improvement in left upper lobe but persistent dense consolidation middle and lower lung zones. Check CT of the chest stat today 12/28: Afebrile. FiO2 at 30% awake alert and awake. Plan extubation today passes parameters.. 12/29: Afebrile. Extubated yesterday without complications to BiPAP currently at 12/5 at 35%. Tolerated taking pills yesterday. Somewhat lethargic this a.m. but this appears to be her baseline 12/30: Afebrile. Currently on room air. Tolerating diet. Remove central line today if furosemide drip changed to 40 mg IV [address] Archer. 12/31 Patient is on 3L oxygen. Awake, alert. Afebrile. Off Lasix drip. 01/01 No events overnight. On 3L oxygen. Off BIPAP. Afebrile. 321: Patient has diminished breath sounds left lung, and the left lung is is rc out on CXR with midline shift indicating complete atelectasis. I discussed with her need for bronchoscopy following intubation. Patient is willing for intubation and bronchoscopy. She does not want trach IF she can be extubated, if not extubated in 4-5 days patient is willing to get trach. I gave her the option for palliative care and comfort measures which patient refused. Discussed with Dr. Michelle who is covering fro Dr. Baca 01/03: Patient was intubated yesterday for almost complete left lung collapse. Had bronchoscopy and large amount of thick mucoid secretions removed from left upper and left lower lobe bronchi. Patient has severe bronchomalacia and bronchial narrowing involving left upper and lower lobe bronchi. Currently using large tidal volumes and high PEEP in an attempt to open up the lung. Patient may need permanent trach. Requiring 40 mcg/min of Ion-Synephrine 01/04: Patient remains intubated sedated but wakes up easily. Chest x-ray today shows improved aeration of the left upper and middle lung west, dense consolidation persists left lower lobe. Start weaning PEEP to 10, reduce tidal volumes to 550-600. Initiate vent weaning trials in 24 hours Subjective 01/05: still intubated and sedated. peep 8. off pathway. Objective Vital Signs Date Time Temp Pulse Resp B/P (MAP) Pulse Ox O2 Delivery O2 Flow Rate FiO2 01/05/18 15:29 100 40 01/05/18 10:00 86 01/05/18 09:35 16 01/05/18 08:00 97.7 118/73 (88) 01/02/18 20:00 Mechanical Ventilator 01/02/18 16:00 2.00 Intake and Output 01/05/18 01/05/18 01/06/18 08:00 16:00 00:00 Intake Total 913 ml Output Total 500 ml Balance 413 ml Result Diagram: 01/04/18 1157 01/05/18 0540 Other Results Microbiology Date/Time Source Procedure Growth Status 01/03/18 18:23 Sputum Expectorated Sputum Gram Stain - Final Complete 01/03/18 18:23 Sputum Expectorated Sputum Sputum Culture - Final LIGHT GROWTH NORMAL RESPIRATORY BERNA Complete Imaging Last Impressions Chest X-Ray 12/29/17 0600 Signed Impressions: Service Date/Time: Friday, December 29, 2017 03:16 - CONCLUSION: 1. Improving aeration in the right base with persistent left basilar consolidation/ effusion. Stable cardiomegaly. 2. Interval removal of the endotracheal and nasogastric tubes. Jakob Plunkett MD Chest CT 12/27/17 0000 Signed Impressions: Service Date/Time: December 10:29 - CONCLUSION: 1. Basilar atelectasis and small pleural effusions, increased from November 26. Mild perihilar groundglass opacity present most characteristic of minimal pulmonary edema. 2. Support apparatus as above. Moderate coronary calcifications. Sachin Gonzalez MD Abdomen/Pelvis CT 12/20/17 0000 Signed Impressions: Service Date/Time: December 21:20 - CONCLUSION: Stable appearance to the CT abdomen/pelvis were compared to 11/26/17. Right double-J stent in place, multiple gallstones, left renal mass, left lateral ventral hernia. Dorian Vasquez MD Upper Extremity Ultrasound 12/13/17 0000 Signed Impressions: Service Date/Time: December 13:43 - CONCLUSION: 1. No deep venous thrombosis in the left upper extremity. 2. Superficial thrombosis of the right cephalic vein. El Nuñez MD Lower Extremity Ultrasound 12/13/17 0000 Signed Impressions: Service Date/Time: December 14:26 - CONCLUSION: Normal examination. Domingo Calderon MD Head CT 12/13/17 0000 Signed Impressions: Service Date/Time: December 13:30 - CONCLUSION: Normal examination. Domingo Calderon MD Objective Remarks GENERAL: 67-year-old female lying in bed SKIN: Warm and dry. Lower extremity venous stasis changes HEAD: Atraumatic. Normocephalic. EYES: Pupils equal and round about 3 mm bilaterally and reactive. No scleral icterus. No injection or drainage. ENT: No nasal bleeding or discharge. Orotracheally intubated NECK: Trachea midline. No JVD. CARDIOVASCULAR: IRR. Distant heart tones. RESPIRATORY: Improved air entry left upper chest. GASTROINTESTINAL: Abdomen soft, obese, nontender. MUSCULOSKELETAL: Extremities with 1+ bilateral upper and lower extremity edema NEUROLOGICAL: Wakes up easily while on sedation. Moves extremities follows commands A/P Assessment and Plan Neuro/Psych: Metabolic encephalopathy -improved Chronic benzodiazepine use Depression disorder NOS Diabetic neuropathy Chronic pain syndrome with chronic narcotic use Propofol for sedation, daily sedation vacation continue hydrocodone/acetaminophen 5/325 1 tablet every 6 hours as needed pain Continue sertraline 100 mg p.o. daily for depression Continue pregabalin 75 mg p.o. daily for peripheral neuropathy CT brain 12/13 revealed no acute intracranial findings Acetaminophen 650 mg p.o. every 6 hours as needed fever Alprazolam 1 mg twice daily as needed anxiety-hold while intubated CV: Atrial fibrillation with RVR, now rate controlled Hypertension, now hypotensive Fluid overload Hold Lopressor and Cardizem for borderline low BP. Attempt wean to DC Levophed Monitor HR and BP keep MAP>65mmHg 2D echocardiogram 12/02 - EF 50-55%. The left atrial size is mildly dilated. The right atrial size is moderately dilated. Trace TR Resp: Acute hypoxic, hypercapnic respiratory failure Recurrent left lung collapse/mucus plugging Bronchomalacia, with left airway narrowing and collapse APOLONIA/OHS History recurrent MRSA pneumonia Status post intubation and bronchoscopy 12/26/2017 and extubated 12/28, bronchoscopy showed thick mucoid secretions in left upper lobe left lower lobe and right upper lobe Significant tracheomalacia and bronchomalacia involving the right and left main stem bronchi Now with recurrent collapse of the left lung. Status post intubation and bronchoscopy 01/02/2018, similar findings as above CXR today showing improved aeration, reduce PEEP to 10 start weaning trials in 24 hours Patient requested to be weaned one more time prior to proceeding with tracheostomy Albuterol/ipratropium aerosols every 4 hours with albuterol aerosols every 2 hours as needed dyspnea. Mucomyst Continue budesonide 0.5 mg/2 mL 1 inhalation s every 12 hours Continue Prednisone 20mg BID Dr. Poon pulmonary following. start SBTs daily. GI: BMI greater than 40 Gastroesophageal reflux disease Hypoalbuminemia Tube feeds with nepro. Famotidine for GI prophylaxis. Patient is on famotidine 20 mg p.o. daily at home Docusate sodium/senna 1 tablet twice daily for bowel regimen. Patient is on senna 8.6 mg twice daily at home Having regular bowel movement. Continue ondansetron 4 mg every 6 hours as needed nausea Renal//FEN: Acute on chronic kidney disease J stent placement Monitor renal function, I/O's, avoid nephrotoxins Solitario catheter to maintain patency with recent pyelonephritis/GJ placement. On Lasix 40mg TID, Renal is following, Cr: 2.7 Outpatient J stent removal should be scheduled by urology that was placed during last hospitalization 12/02 12/20 CT abd/pelvis: No hydronephrosis Continue tamsulosin 0.4 mg daily Endo: Diabetes mellitus Acute hypoglycemia-resolved Sliding scale insulin with Novolin R with Accu-Cheks to maintain euglycemia every 6 hours low regimen Heme: Leukocytosis Normocytic anemia Chronic Rivaroxaban use Right cephalic vein superficial thrombus Monitor CBC On rivaroxaban 10 mg daily-hold due to Cr cl <30. Start IV heprin ID: Urinary tract infection/MDR Klebsiella History of MRSA History of C. difficile Blood cx 12/20 Leni avila Currently on PO vancomycin , ceftazidime/avibactam and fluconazole per ID. 1 dose of vanc given 12/26 Monitor for signs of infections (Fever, WBC) Pertinent cultures Urine Legionella pneumococcal antigens negative Urine culture 12/13 Klebsiella ESBL positive positive Blood culture 12/20: LENI SPP Access -Peripheral IV's Prophylaxis -GI -famotidine -DVT -SCD/rivaroxaban. hold due to Cr cl <30. IV heparin OVERALL IMPRESSION: deconditioned. morbidly obese. multiple failed attempts at weaning. will likely require tracheostomy and LTAC level care. will attempt one more trial of extubation. very much off pathway. Christ Mullins MD Jan 05, 2018 16:48
[2018-01-05] MEDS: FAMOTIDINE 20 MG TAB PO SCH (20:18)
[2018-01-06] VITALS (19 sets, daily range): BP systolic 105–133; BP diastolic 59–79; PULSE 89–100; RESP 16; TEMP 97.6–98.5; O2SAT 100
[2018-01-06] MEDS: CHLORHEXIDINE GLUCONATE 2 % 1 PACK (2 CLOTHS) TOP SCH (00:11)
[2018-01-06] MEDS: ALBUMIN 5% INJ 500 ML IV SCH ×2 (00:11→12:14)
[2018-01-06] MEDS: POTASSIUM CHLOR 20 MEQ PREMIX 100 ML IV SCH ×3 (00:11→05:00)
[2018-01-06] MEDS: PROPOFOL 1000 MG/100 ML INJ 100 ML IV PRN ×5 (00:21→22:40)
[2018-01-06] MEDS: RESP: ALBUTEROL 2.5 MG/IPRATROPIUM 0.5 MG NEB (SCH) NEB ×6 (03:31→23:15)
[2018-01-06] MEDS: RESP: ACETYLCYSTEINE 20% 30 ML NEB NEB SCH ×6 (03:31→23:15)
[2018-01-06] MEDS: ARTIFICIAL TEARS OPTH SOLN 15 ML BTL EACH EYE SCH ×3 (05:53→20:51)
[2018-01-06] MEDS: RESP: BUDESONIDE 0.5 MG/2 ML NEB NEB SCH ×2 (07:37→20:23)
[2018-01-06 07:55] LABS: BICARBONATE 18.3 MEQ/L (21.0-32.0); CALCIUM 8.2 MG/DL (8.5-10.1); CREATININE 2.8 MG/DL (0.50-1.00)
[2018-01-06] MEDS: INSULIN NovoLIN REGULAR SUPPLEMENTAL SCALE SQ SCH ×4 (08:00→20:51)
[2018-01-06] MEDS: LACTOBACILLUS ACIDOPHILUS TAB PO SCH ×3 (09:05→17:15)
[2018-01-06] MEDS: predniSONE 20 MG TAB PO SCH ×2 (09:05→20:50)
[2018-01-06] MEDS: METOPROLOL TARTRATE 50 MG TAB PO SCH ×2 (09:05→20:50)
[2018-01-06] MEDS: ASCORBIC ACID 500 MG TAB PO SCH ×2 (09:06→20:51)
[2018-01-06] MEDS: TAMSULOSIN HCL 0.4 MG CAP PO SCH (09:06)
[2018-01-06] MEDS: SERTRALINE HCL 100 MG TAB PO SCH (09:06)
[2018-01-06] MEDS: MUPIROCIN 2% OINT 1 APPLIC/GM SYR EACH NARE SCH ×2 (09:06→20:49)
[2018-01-06] MEDS: DOCUSATE SODIUM 50 MG/SENNA 8.6 MG TAB PO SCH ×2 (09:06→20:50)
[2018-01-06] MEDS: PREGABALIN 75 MG CAP PO SCH (09:06)
[2018-01-06] MEDS: SODIUM CHLORIDE 0.9% FLUSH 10 ML FLUSH IV FLUSH SCH ×2 (09:07→20:50)
[2018-01-06] MEDS: cefTAZidime/AVIBACTAM INJ 0.94 GM in SODIUM CHLORIDE 0.9% INJ 50 ML IV SCH ×2 (09:07→20:49)
[2018-01-06] MEDS: FUROSEMIDE 40 MG/4 ML VIAL IV PUSH SCH ×3 (09:08→17:15)
[2018-01-06] MEDS: NYSTATIN 100,000 U/GM PWD 15 GM BTL TOPICAL SCH ×2 (09:08→20:51)
[2018-01-06] MEDS: CHLORHEXIDINE 0.12% (ORAL KIT) 15 ML CUP MT SCH ×2 (09:09→20:49)
[2018-01-06] MEDS: VANCOMYCIN 25 MG/ML SOLN 100 ML BOTTLE PO SCH ×2 (09:09→20:50)
--- NOTE | 2018-01-06 10:00 | HHI.PR ---
Subjective Remarks Covering for Dr. Domingo Michelle was covering for Dr. Butt still critically ill. On a mechanical ventilator intubated. no new changes Objective Vital Signs Date Time Temp Pulse Resp B/P (MAP) Pulse Ox O2 Delivery O2 Flow Rate FiO2 01/06/18 07:40 100 40 01/06/18 06:00 100 01/06/18 04:58 100 40 01/06/18 04:00 96 01/06/18 04:00 40 01/06/18 04:00 98.1 96 16 118/79 (92) 100 01/06/18 02:01 100 40 01/06/18 02:00 98 01/06/18 00:00 40 01/06/18 00:00 98.5 99 16 113/64 (80) 100 01/06/18 00:00 99 01/05/18 23:30 100 40 01/05/18 23:00 95 16 117/65 (82) 100 01/05/18 22:00 95 01/05/18 22:00 95 16 119/62 (81) 100 01/05/18 21:00 115 16 113/67 (82) 100 01/05/18 20:00 98.3 102 17 116/61 (79) 98 01/05/18 20:00 40 01/05/18 20:00 102 01/05/18 19:30 100 40 01/05/18 18:00 96 01/05/18 16:00 40 01/05/18 16:00 100 01/05/18 16:00 98.2 100 16 118/61 (80) 100 01/05/18 15:29 100 40 01/05/18 14:00 100 01/05/18 12:00 98.7 96 16 116/64 (81) 100 01/05/18 12:00 96 01/05/18 12:00 40 01/05/18 11:02 100 40 01/05/18 10:00 86 I/O 01/05/18 01/05/18 01/05/18 01/06/18 01/06/18 01/06/18 07:00 15:00 23:00 07:00 15:00 23:00 Intake Total 913 ml 198 ml 1300 ml 1241 ml Output Total 500 ml 350 ml 300 ml Balance 413 ml 198 ml 950 ml 941 ml IV Total 252 ml 198 ml 850 ml 700 ml Tube Feeding 601 ml 450 ml 481 ml Other 60 ml 60 ml Output Urine Total 500 ml 350 ml 300 ml # Bowel Movements 2 1 0 Result Diagram: 01/04/18 1157 01/06/18 0412 Objective Remarks GENERAL: 67-year-old female lying in bed SKIN: Warm and dry. Lower extremity venous stasis changes HEAD: Atraumatic. Normocephalic. EYES: Pupils equal and round reactive. No scleral icterus. ENT: No nasal bleeding or discharge. Orotracheally intubated NECK: Trachea midline. No JVD. CARDIOVASCULAR:. Distant heart tones. S1, S2. RESPIRATORY: Decreased breath sounds bilateral and left-sided crackles GASTROINTESTINAL: Abdomen soft, obese, nontender. Hypoactive bowel sounds are appreciated MUSCULOSKELETAL: Extremities with edema NEUROLOGICAL: Wakes up easily while on sedation. Moves extremities follows commands Assessment and Plan Assessment and Plan Hypoxic and hypercapnic respiratory failure Mucous plugging Atrial fibrillation Volume overload Renal failure Chronic benzodiazepine use Depression disorder NOS Diabetic neuropathy Chronic pain syndrome with chronic narcotic use Morbid obesity Overall poor prognosis Plan: I still do not believe the patient is a candidate for weaning. The patient may require long-term tracheostomy. At some point the patient may benefit from bronchoscopy. Continue sedation as needed. Continue current antibiotics. She will need placement Call if needed. Dr Montes will be back in am Ajith Clemente MD Jan 06, 2018 10:00
--- NOTE | 2018-01-06 11:45 | HHI.NPPN ---
Subjective Complaints: Shortness of Breath Renal Failure: Acute Review of Systems General General Remarks unable to obtain Cardiovascular Cardiac: Edema Objective Data Data Vital Signs Date Time Temp Pulse Resp B/P (MAP) Pulse Ox O2 Delivery O2 Flow Rate FiO2 01/06/18 11:34 100 40 01/06/18 07:40 100 40 01/06/18 06:00 100 01/06/18 04:58 100 40 01/06/18 04:00 96 01/06/18 04:00 40 01/06/18 04:00 98.1 96 16 118/79 (92) 100 01/06/18 02:01 100 40 01/06/18 02:00 98 01/06/18 00:00 40 01/06/18 00:00 98.5 99 16 113/64 (80) 100 01/06/18 00:00 99 01/05/18 23:30 100 40 01/05/18 23:00 95 16 117/65 (82) 100 01/05/18 22:00 95 01/05/18 22:00 95 16 119/62 (81) 100 01/05/18 21:00 115 16 113/67 (82) 100 01/05/18 20:00 98.3 102 17 116/61 (79) 98 01/05/18 20:00 40 01/05/18 20:00 102 01/05/18 19:30 100 40 01/05/18 18:00 96 01/05/18 16:00 40 01/05/18 16:00 100 01/05/18 16:00 98.2 100 16 118/61 (80) 100 01/05/18 15:29 100 40 01/05/18 14:00 100 01/05/18 12:00 98.7 96 16 116/64 (81) 100 01/05/18 12:00 96 01/05/18 12:00 40 -: 01/04/18 1157 01/06/18 0412 Microbiology 01/05/18 Stool Occult Blood (NATALIE) - Final, Complete HEMOCCULT NEGATIVE Tubes & Lines: Solitario Drip Comment propofol Physical Exam General Appearance: Well Developed, No Acute Distress, Comfortable, Obese Throat Throat Exam: Oral Mucosa [place] & Moist Pulmonary Resp Exam: Clear Bilaterally, Breath Sounds Equal, No Distress, Rhonchi, Decreased Bases, Diminished Breath Sounds Cardiology CV Exam: Good Perfusion, Irregular, Tachycardia Gastrointestinal/Abdomen GI Exam: Soft, Non-Tender, Bowel Sounds Present Musculoskeletal MS Exam: Joints Intact, Normal Tone, Unable to Ambulate Integumentary Skin Exam: Warm, Dry, Intact Extremeties Extremities Exam: Pedal Pulses Palpable, Moderate Edema, Dependent Edema Neurologic Neuro Exam: Awake, Moving All Extremities, Unresponsive, Sedated Psychiatric Psych Exam: Appropriate Responses VTE Prophylaxis Device: SCDs Assessment/Plan Discussed Condition With: Patient Assessment Summary: FREDDY/Acute Renal Failure, Fluid/Volume Overload, Hypotension Problem List: (1) FREDDY (acute kidney injury) ICD Codes: N17.9 - Acute kidney failure, unspecified Plan: Her best creatinine at discharge was 1.2 Initially she my have suffered vancomycin induced nephrotoxicity More recently has been hypotensive, most likely has suffered hypoperfusion injury, possibly ATN, also due to sepsis with UTI. Renal function is slightly worse Avoid hypotension, A line to be placed today for accuracy of BP readings. Continue Lasix 40 mg IV, TID, she has extensive edema that is worsening. . Give albumin. Follow urine output, it appears it has improved Cr declined Monitor urine output Dr. Lopez to follow (2) Respiratory failure ICD Codes: J96.90 - Respiratory failure, unspecified, unspecified whether with hypoxia or hypercapnia Plan: s/p intubation, s/p 2nd bronchoscopy with suctioning/bronchial washing first bronchoscopy with multiple mucous plugs identified and suctioned. Also has tracheomalacia and bronchomalacia pulmonary following Continue diuresis cultures are negative (3) Hypernatremia ICD Codes: E87.0 - Hyperosmolality and hypernatremia Plan: Improved (4) UTI (urinary tract infection) ICD Codes: N39.0 - Urinary tract infection, site not specified Plan: ID is following. She is on Avycaz, stop date extended to 01/09. Has MDRO Klebsiella Sp. Contact precautions (5) Pneumonia ICD Codes: J18.9 - Pneumonia, unspecified organism Status: Acute Plan: See above. ID is following. On IV Avycaz. (6) C. difficile colitis ICD Codes: A04.72 - Enterocolitis due to Clostridium difficile, not specified as recurrent Plan: Tested Nov 22, has been on treatment since then. Consider stopping and monitoring off PO vancomycin (currently taper) Contact precautions. (7) Anemia ICD Codes: D64.9 - Anemia, unspecified Plan: No evidence of iron deficiency Monitor hemoglobin (8) Afib ICD Codes: I48.91 - Unspecified atrial fibrillation Status: Chronic Plan: tachycardic today, intermittently hypotensive On PO Cardizem (has been held), also on metoprolol to 50 BID (hold PRN hypotension) Problem Qualifiers (1) Afib: Qualified Codes: I48.2 - Chronic atrial fibrillation Lisandra Thao MD Jan 06, 2018 11:45
--- NOTE | 2018-01-06 16:01 | HHI.CCPN ---
Subjective Remarks/Hospital Course This is a 67-year-old female. Date of admission 12/13/2017. Past medical history includes elevated BMI, chronic asthma on chronic oxygen, atrial fibrillation/rate controlled, hypertension dyslipidemia. Today, patient presents to [facility] emergency department after being found unresponsive at the senior living. She was just discharged from the hospital 12/10/2017 from [facility]. She is morbidly obese with multiple severe chronic illnesses and was both in respiratory distress and decreased responsiveness at the same time. She was noted to be hypoxic with saturations in the e 80s with nasal cannula. Was brought in on BiPAP. Accu-Chek was in the 30s when paramedics found her. Initial GCS was reported as 3. She received some D10 through a right arm PICC line but upon arrival staff felt that the PICC line was not working properly. Patient cannot provide any history or review of systems. She arrives critically ill Patient received D50 and a central line in the right internal jugular was placed by ED physician as no significant access was available. Chest x-ray revealed no acute cardiopulmonary findings. After being placed on BiPAP and receiving glucose patient's mentation is much improved and likely can be removed in the ICU. Less confused when evaluated in the ED. UA is positive. Previous history of Pseudomonas sensitive to aztreonam 12/14: Currently resting in bed in no acute distress on 3 L nasal cannula. Overnight on BiPAP/Venturi mask currently on 3 L nasal cannula. Difficult to arouse but once arousable does follow commands in all 4 extremities but weakly. Blood sugar 135. ABG currently pending 12/15: Afebrile. Resting in bed on nasal cannula. Arousable and following commands. Ill-definition due to hypo-tension. I will place arterial line secondary to body habitus. She does not appear septic. She is more awake and alert and attentive today as compared to yesterday. 12/16: Alert and oriented 3, responding to questions appropriately. Arterial line inability to play secondary to body habitus. Patient remained on phenylephrine during the night but now map remains less than 60 will resume phenylephrine infusion, and initiate Midodrine. 12/17: Hemodynamically stable. Phenylephrine infusion off since last night. MAP 80's. Patient alert and oriented, tolerating diet/breakfast. 12/18: Late entry note. Hemodynamically stable. Decrease FiO2 requirements currently on 2 L nasal cannula O2 saturation 97-98 %. RECONSULT 12/19: Patient became hemodynamically unstable this afternoon requiring reinitiation of phenylephrine infusion currently at 70 mcgs/minute. 12/20: Patient became somnolent last evening noted respiratory acidosis around 2 AM. Patient placed back on BiPAP. ID has been consulted for MDR Klebsiella. Patient awake and alert this afternoon, and denies pain. 12/21: Respiratory status much improved, and to remain on BiPAP at night while sleeping. ABGs improved. Patient hemodynamically stable no vasopressor requirements at this time. IV fluids discontinued. Patient tolerating a diet. 12/22: Patient remains a respiratory acidosis, slightly more lethargic today. Patient placed on BiPAP with exception of meals today. Repeat ABG pending this afternoon 12/23: ABG's and neuro status unchanged. Patient remains on BiPAP with exception of meals. Repeat ABG pending this afternoon. Ammonia level ordered. 12/24 Patient is on BIPAP 15/ with 40% . In Afib with RVR 12/25 No events overnight. Remains on BIPAP. Started on Lasix drip per renal 20mg /hr 12/26: Patient remains on BiPAP lethargic. Air entry is diminished on the left side. Chest x-ray shows complete whiteout on the left side with mediastinal shift to the left indicating mucus plugging and left lung collapse. Will proceed with emergency intubation and bronchoscopy (I discussed with Dr. Baca -he will do bronchoscopy at 11:30 AM today) 12/27: Intubated yesterday for severe left lung atelectasis. Underwent bronchoscopy by Dr. Baca. Bronchoscopy showed tracheomalacia and bronchomalacia involving right mainstem bronchi, left mainstem and left upper lobe bronchi. Significant thick mucoid secretions in right upper lobe bronchi, left upper bronchus and also left lower lobe. Moderate endobronchitis. Chest x -ray shows moderate improvement in left upper lobe but persistent dense consolidation middle and lower lung zones. Check CT of the chest stat today 12/28: Afebrile. FiO2 at 30% awake alert and awake. Plan extubation today passes parameters.. 12/29: Afebrile. Extubated yesterday without complications to BiPAP currently at 12/5 at 35%. Tolerated taking pills yesterday. Somewhat lethargic this a.m. but this appears to be her baseline 12/30: Afebrile. Currently on room air. Tolerating diet. Remove central line today if furosemide drip changed to 40 mg IV [address] Archer. 12/31 Patient is on 3L oxygen. Awake, alert. Afebrile. Off Lasix drip. 01/01 No events overnight. On 3L oxygen. Off BIPAP. Afebrile. 321: Patient has diminished breath sounds left lung, and the left lung is is rc out on CXR with midline shift indicating complete atelectasis. I discussed with her need for bronchoscopy following intubation. Patient is willing for intubation and bronchoscopy. She does not want trach IF she can be extubated, if not extubated in 4-5 days patient is willing to get trach. I gave her the option for palliative care and comfort measures which patient refused. Discussed with Dr. Michelle who is covering fro Dr. Baca 01/03: Patient was intubated yesterday for almost complete left lung collapse. Had bronchoscopy and large amount of thick mucoid secretions removed from left upper and left lower lobe bronchi. Patient has severe bronchomalacia and bronchial narrowing involving left upper and lower lobe bronchi. Currently using large tidal volumes and high PEEP in an attempt to open up the lung. Patient may need permanent trach. Requiring 40 mcg/min of Ion-Synephrine 01/04: Patient remains intubated sedated but wakes up easily. Chest x-ray today shows improved aeration of the left upper and middle lung west, dense consolidation persists left lower lobe. Start weaning PEEP to 10, reduce tidal volumes to 550-600. Initiate vent weaning trials in 24 hours 01/05: still intubated and sedated. peep 8. off pathway. Subjective 01/06: failing weaning attempts. patient had requested 1 additional weaning attempt prior to tracheostomy, but I do not see this as a realistic possibility. Objective Vital Signs Date Time Temp Pulse Resp B/P (MAP) Pulse Ox O2 Delivery O2 Flow Rate FiO2 01/06/18 11:34 100 40 01/06/18 06:00 100 01/06/18 04:00 98.1 16 118/79 (92) 01/02/18 20:00 Mechanical Ventilator 01/02/18 16:00 2.00 Intake and Output 01/06/18 01/06/1801/07/18 08:00 16:00 00:00 Intake Total 1241 ml Output Total 300 ml Balance 941 ml Result Diagram: 01/04/18 1157 01/06/18 0412 Other Results Microbiology Date/Time Source Procedure Growth Status 01/05/18 12:45 Stool Stool Stool Occult Blood (NATALIE) - Final HEMOCCULT NEGATIVE Complete 01/03/18 18:23 Sputum Expectorated Sputum Gram Stain - Final Complete 01/03/18 18:23 Sputum Expectorated Sputum Sputum Culture - Final LIGHT GROWTH NORMAL RESPIRATORY BERNA Complete Imaging Last Impressions Chest X-Ray 12/29/17 0600 Signed Impressions: Service Date/Time: Friday, December 29, 2017 03:16 - CONCLUSION: 1. Improving aeration in the right base with persistent left basilar consolidation/ effusion. Stable cardiomegaly. 2. Interval removal of the endotracheal and nasogastric tubes. Jakob Plunkett MD Chest CT 12/27/17 0000 Signed Impressions: Service Date/Time: December 10:29 - CONCLUSION: 1. Basilar atelectasis and small pleural effusions, increased from November 26. Mild perihilar groundglass opacity present most characteristic of minimal pulmonary edema. 2. Support apparatus as above. Moderate coronary calcifications. Sachin Gonzalez MD Abdomen/Pelvis CT 12/20/17 0000 Signed Impressions: Service Date/Time: December 21:20 - CONCLUSION: Stable appearance to the CT abdomen/pelvis were compared to 11/26/17. Right double-J stent in place, multiple gallstones, left renal mass, left lateral ventral hernia. Dorian Vasquez MD Upper Extremity Ultrasound 12/13/17 0000 Signed Impressions: Service Date/Time: December 13:43 - CONCLUSION: 1. No deep venous thrombosis in the left upper extremity. 2. Superficial thrombosis of the right cephalic vein. El Nuñez MD Lower Extremity Ultrasound 12/13/17 0000 Signed Impressions: Service Date/Time: December 14:26 - CONCLUSION: Normal examination. Domingo Calderon MD Head CT 12/13/17 0000 Signed Impressions: Service Date/Time: Thursday, December 13, 2017 13:30 - CONCLUSION: Normal examination. Domingo Calderon MD Objective Remarks GENERAL: 67-year-old female lying in bed SKIN: Warm and dry. Lower extremity venous stasis changes HEAD: Atraumatic. Normocephalic. EYES: Pupils equal and round about 3 mm bilaterally and reactive. No scleral icterus. No injection or drainage. ENT: No nasal bleeding or discharge. Orotracheally intubated NECK: Trachea midline. No JVD. CARDIOVASCULAR: IRR. Distant heart tones. RESPIRATORY: Improved air entry left upper chest. GASTROINTESTINAL: Abdomen soft, obese, nontender. MUSCULOSKELETAL: Extremities with 1+ bilateral upper and lower extremity edema NEUROLOGICAL: Wakes up easily while on sedation. Moves extremities follows commands A/P Assessment and Plan Neuro/Psych: Metabolic encephalopathy -improved Chronic benzodiazepine use Depression disorder NOS Diabetic neuropathy Chronic pain syndrome with chronic narcotic use Propofol for sedation, daily sedation vacation continue hydrocodone/acetaminophen 5/325 1 tablet every 6 hours as needed pain Continue sertraline 100 mg p.o. daily for depression Continue pregabalin 75 mg p.o. daily for peripheral neuropathy CT brain 12/13 revealed no acute intracranial findings Acetaminophen 650 mg p.o. every 6 hours as needed fever Alprazolam 1 mg twice daily as needed anxiety-hold while intubated CV: Atrial fibrillation with RVR, now rate controlled Hypertension, now hypotensive Fluid overload Hold Lopressor and Cardizem for borderline low BP. Attempt wean to DC Levophed Monitor HR and BP keep MAP>65mmHg 2D echocardiogram 12/02 - EF 50-55%. The left atrial size is mildly dilated. The right atrial size is moderately dilated. Trace TR Resp: Acute hypoxic, hypercapnic respiratory failure Recurrent left lung collapse/mucus plugging Bronchomalacia, with left airway narrowing and collapse APOLONIA/OHS History recurrent MRSA pneumonia Status post intubation and bronchoscopy 12/26/2017 and extubated 12/28, bronchoscopy showed thick mucoid secretions in left upper lobe left lower lobe and right upper lobe Significant tracheomalacia and bronchomalacia involving the right and left main stem bronchi Now with recurrent collapse of the left lung. Status post intubation and bronchoscopy 01/02/2018, similar findings as above CXR today showing improved aeration, reduce PEEP to 10 start weaning trials in 24 hours Patient requested to be weaned one more time prior to proceeding with tracheostomy Albuterol/ipratropium aerosols every 4 hours with albuterol aerosols every 2 hours as needed dyspnea. Mucomyst Continue budesonide 0.5 mg/2 mL 1 inhalation s every 12 hours Continue Prednisone 20mg BID Dr. Poon pulmonary following. start SBTs daily. GI: BMI greater than 40 Gastroesophageal reflux disease Hypoalbuminemia Tube feeds with nepro. Famotidine for GI prophylaxis. Patient is on famotidine 20 mg p.o. daily at home Docusate sodium/senna 1 tablet twice daily for bowel regimen. Patient is on senna 8.6 mg twice daily at home Having regular bowel movement. Continue ondansetron 4 mg every 6 hours as needed nausea Renal//FEN: Acute on chronic kidney disease J stent placement Monitor renal function, I/O's, avoid nephrotoxins Solitario catheter to maintain patency with recent pyelonephritis/GJ placement. On Lasix 40mg TID, Renal is following, Cr: 2.7 Outpatient J stent removal should be scheduled by urology that was placed during last hospitalization 12/02 12/20 CT abd/pelvis: No hydronephrosis Continue tamsulosin 0.4 mg daily Endo: Diabetes mellitus Acute hypoglycemia-resolved Sliding scale insulin with Novolin R with Accu-Cheks to maintain euglycemia every 6 hours low regimen Heme: Leukocytosis Normocytic anemia Chronic Rivaroxaban use Right cephalic vein superficial thrombus Monitor CBC On rivaroxaban 10 mg daily-hold due to Cr cl <30. Start IV heprin ID: Urinary tract infection/MDR Klebsiella History of MRSA History of C. difficile Blood cx 12/20 Leni avila Currently on PO vancomycin , ceftazidime/avibactam and fluconazole per ID. 1 dose of vanc given 12/26 Monitor for signs of infections (Fever, WBC) Pertinent cultures Urine Legionella pneumococcal antigens negative Urine culture 12/13 Klebsiella ESBL positive positive Blood culture 12/20: OERSKOVIA SPP Access -Peripheral IV's Prophylaxis -GI -famotidine -DVT -SCD/rivaroxaban. hold due to Cr cl <30. IV heparin OVERALL IMPRESSION: deconditioned. morbidly obese. multiple failed attempts at weaning. will likely require tracheostomy and LTAC level care. will attempt one more trial of extubation, but I do not see this as promising. very much off pathway. Christ Mullins MD Jan 06, 2018 16:01
[2018-01-06] MEDS: FAMOTIDINE 20 MG TAB PO SCH (20:50)
[2018-01-07] VITALS (28 sets, daily range): BP systolic 92–133; BP diastolic 50–77; PULSE 85–106; RESP 12–21; TEMP 97–98.3; O2SAT 93–100
[2018-01-07] MEDS: ALBUMIN 5% INJ 500 ML IV SCH ×2 (01:27→11:35)
[2018-01-07] MEDS: CHLORHEXIDINE GLUCONATE 2 % 1 PACK (2 CLOTHS) TOP SCH (02:59)
[2018-01-07] MEDS: PROPOFOL 1000 MG/100 ML INJ 100 ML IV PRN ×2 (02:59→08:56)
[2018-01-07] MEDS: RESP: ACETYLCYSTEINE 20% 30 ML NEB NEB SCH ×2 (03:31→07:25)
[2018-01-07] MEDS: RESP: ALBUTEROL 2.5 MG/IPRATROPIUM 0.5 MG NEB (SCH) NEB ×2 (03:31→07:25)
[2018-01-07] MEDS: ARTIFICIAL TEARS OPTH SOLN 15 ML BTL EACH EYE SCH ×2 (05:43→08:59)
[2018-01-07] MEDS: RESP: BUDESONIDE 0.5 MG/2 ML NEB NEB SCH ×2 (07:25→20:50)
--- NOTE | 2018-01-07 07:36 | RADRPT ---
EXAM DATE/TIME: 01/07/2018 06:51 [place] COMPARISON: CHEST SINGLE AP, January 05, 2018, 3:04. INDICATIONS : Respiratory failure MEDICAL HISTORY : Hypertension. Diabetes mellitus type II. SURGICAL HISTORY : None. ENCOUNTER: Subsequent ACUITY: 1 month PAIN SCORE: Non-responsive. LOCATION: Bilateral chest FINDINGS: The ET tube is 4 cm above the makeda. The NG tube is directed into the stomach. The heart size is enl arged. There is near total opacification of the left hemithorax. There appears to be some shift of he art and mediastinal shift towards the left suggesting atelectasis. There is hazy density seen through out the mid and lower right lung. There is increased density along the lateral right chest likely rel ated to mild effusion. CONCLUSION: 1. Worsening opacification of the left chest with volume loss likely secondary to worsening atelectas is. 2. Cardiomegaly. 3. Hazy density at the mid and lower right lung likely related to underlying edema and mild effusion. Prery Frye MD on January 07, 2018 at 7:30 Board Certified Radiologist. This report was verified electronically.
[2018-01-07] MEDS: INSULIN NovoLIN REGULAR SUPPLEMENTAL SCALE SQ SCH ×4 (08:00→20:25)
[2018-01-07] MEDS: CHLORHEXIDINE 0.12% (ORAL KIT) 15 ML CUP MT SCH ×2 (08:08→20:00)
[2018-01-07 08:54] LABS: AUTOMATED NEUTROPHIL # 9.2 TH/MM3 (1.8-7.7); BASOPHIL % 0.2 % (0.0-2.0); EOSINOPHIL % 0.3 % (0.0-4.0); LYMPH % 3.4 % (9.0-44.0); LYMPHOCYTE # 0.3 TH/MM3 (1.0-4.8); MEAN CORPUSCULAR HEMOGLOBIN 30.2 PG (27.0-34.0); MEAN CORPUSCULAR HGB CONC 32.5 % (32.0-36.0); MEAN PLATELET VOLUME 10.1 FL (7.0-11.0); MONO % 4.5 % (0.0-8.0); MONOCYTE # 0.5 TH/MM3 (0-0.9); NEUT % 91.6 % (16.0-70.0); PLATELET COUNT 92 TH/MM3 (150-450); RED BLOOD COUNT 2.24 MIL/MM3 (4.00-5.30); RED CELL DISTRIBUTION WIDTH 22.2 % (11.6-17.2); WHITE BLOOD COUNT 10.1 TH/MM3 (4.0-11.0)
[2018-01-07] MEDS: predniSONE 20 MG TAB PO SCH ×2 (08:57→20:25)
[2018-01-07] MEDS: LACTOBACILLUS ACIDOPHILUS TAB PO SCH ×3 (08:57→17:02)
[2018-01-07] MEDS: METOPROLOL TARTRATE 50 MG TAB PO SCH ×2 (08:57→20:25)
[2018-01-07] MEDS: PREGABALIN 75 MG CAP PO SCH (08:57)
[2018-01-07] MEDS: SERTRALINE HCL 100 MG TAB PO SCH (08:57)
[2018-01-07] MEDS: TAMSULOSIN HCL 0.4 MG CAP PO SCH (08:58)
[2018-01-07] MEDS: MUPIROCIN 2% OINT 1 APPLIC/GM SYR EACH NARE SCH ×2 (08:58→20:25)
[2018-01-07] MEDS: SODIUM CHLORIDE 0.9% FLUSH 10 ML FLUSH IV FLUSH SCH ×2 (08:58→20:25)
[2018-01-07] MEDS: FUROSEMIDE 40 MG/4 ML VIAL IV PUSH SCH ×3 (08:58→17:02)
[2018-01-07] MEDS: NYSTATIN 100,000 U/GM PWD 15 GM BTL TOPICAL SCH (08:59)
[2018-01-07] MEDS: VANCOMYCIN 25 MG/ML SOLN 100 ML BOTTLE PO SCH ×2 (08:59→20:26)
[2018-01-07] MEDS: DOCUSATE SODIUM 50 MG/SENNA 8.6 MG TAB PO SCH ×2 (08:59→20:25)
[2018-01-07] MEDS: cefTAZidime/AVIBACTAM INJ 0.94 GM in SODIUM CHLORIDE 0.9% INJ 50 ML IV SCH (09:00)
[2018-01-07 09:08] LABS: HEMATOCRIT 20.9 % (35.0-46.0); HEMOGLOBIN 6.8 GM/DL (11.6-15.3)
[2018-01-07] MEDS: ASCORBIC ACID 500 MG TAB PO SCH ×2 (09:25→20:25)
--- NOTE | 2018-01-07 09:29 | HHI.IDPN ---
Subjective Subjective Remarks ID X cover for Patient is a 67-year-old female, resides in the skilled nursing, brought into the hospital after she was found unresponsive. She had a recent hospitalization where she was diagnosed to have sepsis related to complicated UTI. During that hospitalization she underwent stent placement. She also had C. difficile colitis during that admission. Patient states that she uses a BiPAP machine in the skilled nursing usually when she is sleeping. She is nonambulatory. Denies any significant cough or congestion. No chest pain. There was no mention of any fever or chills or sweats. When she also came to the hospital this time she was on pressors for hypotension. She improved clinically and her hemodynamics stabilize. However yesterday she went hypotensive again, an infectious disease consultation has been requested to evaluate the patient. ID following for KPC positive UTI, Pneumonia. Patient known to me from prior admissions with prior MDR UTI and Cdiff last admission. Overnight events reviewed with RN. chart was reviewed afebrile remains on vent very edematous ET secretions clear to white, small to moderate. Diarrhea large volume liquid: cdiff positive last admission, was on oral vanco. Blood cultures positive for O[place]. Antibiotics Avycaz - to finish 01/09 PO Vanco - tapering Lines Line no evidence of infection Past Medical History Chronic respiratory failure secondary to APOLONIA, OHS and bronchial asthma Atrial fibrillation rate controlled Hypertension Dyslipidemia Gastroesophageal reflux disease Elevated BMI greater than 50 Recurrent MRSA pneumonia Depression Constipation Past Surgical History JJ stent placement by urology Hiatal hernia surgery Appendectomy Percutaneous tracheostomy by Dr. Mullins since decannulated Allergies: Coded Allergies: penicillin G (Unverified Allergy, Severe, 05/29/17) Objective . Vital Signs Date Time Temp Pulse Resp B/P (MAP) Pulse Ox O2 Delivery O2 Flow Rate FiO2 01/07/18 07:28 40 01/07/18 07:26 99 40 01/07/18 06:00 99 01/07/18 04:00 97.8 97 16 125/77 (93) 100 01/07/18 04:00 97 01/07/18 04:00 40 01/07/18 03:31 100 40 01/07/18 02:00 85 01/07/18 00:00 40 01/07/18 00:00 95 01/07/18 00:00 98.0 95 16 119/77 (91) 100 3/25/18 23:16 100 40 01/06/18 22:00 93 01/06/18 20:24 100 40 01/06/18 20:00 89 01/06/18 20:00 40 01/06/18 20:00 97.6 89 16 105/59 (74) 100 01/06/18 18:00 94 01/06/18 16:07 100 40 01/06/18 16:00 97.8 91 16 133/77 (95) 100 01/06/18 16:00 40 01/06/18 16:00 91 01/06/18 14:00 93 01/06/18 12:00 97.7 90 16 115/74 (88) 100 01/06/18 12:00 90 01/06/18 12:00 40 01/06/18 11:34 100 40 01/06/18 10:00 96 . Laboratory Tests Test 01/07/18 08:15 White Blood Count 10.1 TH/MM3 Red Blood Count 2.24 MIL/MM3 Hemoglobin 6.8 GM/DL Hematocrit 20.9 % Mean Corpuscular Volume 93.0 FL Mean Corpuscular Hemoglobin 30.2 PG Mean Corpuscular Hemoglobin Concent 32.5 % Red Cell Distribution Width 22.2 % Platelet Count 92 TH/MM3 Mean Platelet Volume 10.1 FL Neutrophils (%) (Auto) 91.6 % Lymphocytes (%) (Auto) 3.4 % Monocytes (%) (Auto) 4.5 % Eosinophils (%) (Auto) 0.3 % Basophils (%) (Auto) 0.2 % Neutrophils # (Auto) 9.2 TH/MM3 Lymphocytes # (Auto) 0.3 TH/MM3 Monocytes # (Auto) 0.5 TH/MM3 Eosinophils # (Auto) 0.0 TH/MM3 Basophils # (Auto) 0.0 TH/MM3 CBC Comment AUTO DIFF Laboratory Tests Test 01/06/18 04:12 Blood Urea Nitrogen 55 MG/DL Creatinine 2.80 MG/DL Random Glucose 110 MG/DL Calcium Level 8.2 MG/DL Sodium Level 143 MEQ/L Potassium Level 3.9 MEQ/L Chloride Level 107 MEQ/L Carbon Dioxide Level 18.3 MEQ/L Anion Gap 18 MEQ/L Estimat Glomerular Filtration Rate 17 ML/MIN Microbiology Date/Time Source Procedure Growth Status 01/05/18 12:45 Stool Stool Stool Occult Blood (NATALIE) - Final HEMOCCULT NEGATIVE Complete Imaging Last Impressions Chest X-Ray 01/04/18 0600 Signed Impressions: Service Date/Time: Thursday, January 04, 2018 04:15 - CONCLUSION: 1. Interval improvement in opacity in the left lung with aeration now noted in the upper lobe and perihilar region. Dense consolidation remains in the left lung base. 2. The patient is rotated to the left. Chintan Marshall MD Chest CT 12/27/17 0000 Signed Impressions: Service Date/Time: December 10:29 - CONCLUSION: 1. Basilar atelectasis and small pleural effusions, increased from November 26. Mild perihilar groundglass opacity present most characteristic of minimal pulmonary edema. 2. Support apparatus as above. Moderate coronary calcifications. Sachin Gonzalez MD Abdomen/Pelvis CT 12/20/17 0000 Signed Impressions: Service Date/Time: December 21:20 - CONCLUSION: Stable appearance to the CT abdomen/pelvis were compared to 11/26/17. Right double-J stent in place, multiple gallstones, left renal mass, left lateral ventral hernia. Dorian Vasquez MD Upper Extremity Ultrasound 12/13/17 0000 Signed Impressions: Service Date/Time: December 13:43 - CONCLUSION: 1. No deep venous thrombosis in the left upper extremity. 2. Superficial thrombosis of the right cephalic vein. El Nuñez MD Lower Extremity Ultrasound 12/13/17 0000 Signed Impressions: Service Date/Time: December 14:26 - CONCLUSION: Normal examination. Domingo Calderon MD Head CT 12/13/17 0000 Signed Impressions: Service Date/Time: December 13:30 - CONCLUSION: Normal examination. Domingo Calderon MD Physical Exam GENERAL: Sedated on the vent, NAD SKIN: Cool and dry. No generalized rash HEAD: Atraumatic. Normocephalic. No temporal wasting, or tenderness. EYES: Rule conjunctiva. No petechia or hemorrhage. Pupils equal, round and reactive to light. No scleral icterus. EARS, NOSE AND THROAT: Nose without bleeding or purulent nasal discharge. Moist mucosa NECK: Trachea midline. Supple and not tender, no meningeal signs CARDIOVASCULAR: Regular rate and rhythm. No murmurs, rubs or gallops heard RESPIRATORY: Decreased breath sounds R base, markedly decreased whole L side ABDOMEN: Soft, obese, no reaction to palpation, nondistended. Edematous Bowel sounds present and normoactive. EXTREMITIES: No clubbing, cyanosis. Prominent pitting diffuse edema. No calf tenderness. . NEUROLOGICAL: Opens eyes spontaneously. Moves all 4 extremities. PSYCH: Unable to assess LINE: Line no evidence of infection Assessment & Plan Remarks IMPRESSION UTI, with Klebsiella Kleb MDR CRE ESBL+ Oerskovia species (GNR bacteremia): history of prior lines. Previous episode of complicated UTI,, has stent in place, had obstruction - CT A/P looks ok, stent in place, no hydro Known APOLONIA Respiratory failure, chronically on BIPAP mask - CXR with white out L, due to plugging, atelectasis - ?PNA - bronch C/S negative - extubated 12/28, reintubated 01/02 - has tracheomalacia seen on bronchoscopy Obesity Renal insufficiency, chronic Allergy to PCN, tolerates Cephalosporins RECOMMENDATION Continue Avycaz IV (ASP: KPC positive UTI, CRE) follow cultures to deescalate. Continue oral vanco in view of persistent diarrhea. Start Vanco IV to be dosed by ID based on levels to cover O[place] bacteremia. Will dw about length of treatment. eliazar Shukla given Penicillin allergy 2 other options for this organism are Vanco IV and Bactrim oral. Bactrim to be avoided based on my conversation with him. Repeat blood cultures. Monitor pulmonary status Monitor progress Will likely need trach eliazar perea RN to resume care in am. Amy Cartagena MD Jan 07, 2018 09:29
[2018-01-07] MEDS ORDERED: VANCOMYCIN INJ 1,500 MG in SODIUM CHLORID 0.9% 500 ML INJ 500 ML IV ONE (09:45)
[2018-01-07 10:09] LABS: ACANTHOCYTES OCC (NORMAL)
--- NOTE | 2018-01-07 10:09 | HHI.CCPN ---
Subjective Remarks/Hospital Course This is a 67-year-old female. Date of admission 12/13/2017. Past medical history includes elevated BMI, chronic asthma on chronic oxygen, atrial fibrillation/rate controlled, hypertension dyslipidemia. Today, patient presents to [facility] emergency department after being found unresponsive at the halfway. She was just discharged from the hospital 12/10/2017 from [facility]. She is morbidly obese with multiple severe chronic illnesses and was both in respiratory distress and decreased responsiveness at the same time. She was noted to be hypoxic with saturations in the e 80s with nasal cannula. Was brought in on BiPAP. Accu-Chek was in the 30s when paramedics found her. Initial GCS was reported as 3. She received some D10 through a right arm PICC line but upon arrival staff felt that the PICC line was not working properly. Patient cannot provide any history or review of systems. She arrives critically ill Patient received D50 and a central line in the right internal jugular was placed by ED physician as no significant access was available. Chest x-ray revealed no acute cardiopulmonary findings. After being placed on BiPAP and receiving glucose patient's mentation is much improved and likely can be removed in the ICU. Less confused when evaluated in the ED. UA is positive. Previous history of Pseudomonas sensitive to aztreonam 12/14: Currently resting in bed in no acute distress on 3 L nasal cannula. Overnight on BiPAP/Venturi mask currently on 3 L nasal cannula. Difficult to arouse but once arousable does follow commands in all 4 extremities but weakly. Blood sugar 135. ABG currently pending 12/15: Afebrile. Resting in bed on nasal cannula. Arousable and following commands. Ill-definition due to hypo-tension. I will place arterial line secondary to body habitus. She does not appear septic. She is more awake and alert and attentive today as compared to yesterday. 12/16: Alert and oriented 3, responding to questions appropriately. Arterial line inability to play secondary to body habitus. Patient remained on phenylephrine during the night but now map remains less than 60 will resume phenylephrine infusion, and initiate Midodrine. 12/17: Hemodynamically stable. Phenylephrine infusion off since last night. MAP 80's. Patient alert and oriented, tolerating diet/breakfast. 12/18: Late entry note. Hemodynamically stable. Decrease FiO2 requirements currently on 2 L nasal cannula O2 saturation 97-98 %. RECONSULT 12/19: Patient became hemodynamically unstable this afternoon requiring reinitiation of phenylephrine infusion currently at 70 mcgs/minute. 12/20: Patient became somnolent last evening noted respiratory acidosis around 2 AM. Patient placed back on BiPAP. ID has been consulted for MDR Klebsiella. Patient awake and alert this afternoon, and denies pain. 12/21: Respiratory status much improved, and to remain on BiPAP at night while sleeping. ABGs improved. Patient hemodynamically stable no vasopressor requirements at this time. IV fluids discontinued. Patient tolerating a diet. 12/22: Patient remains a respiratory acidosis, slightly more lethargic today. Patient placed on BiPAP with exception of meals today. Repeat ABG pending this afternoon 12/23: ABG's and neuro status unchanged. Patient remains on BiPAP with exception of meals. Repeat ABG pending this afternoon. Ammonia level ordered. 12/24 Patient is on BIPAP 15/ with 40% . In Afib with RVR 12/25 No events overnight. Remains on BIPAP. Started on Lasix drip per renal 20mg /hr 12/26: Patient remains on BiPAP lethargic. Air entry is diminished on the left side. Chest x-ray shows complete whiteout on the left side with mediastinal shift to the left indicating mucus plugging and left lung collapse. Will proceed with emergency intubation and bronchoscopy (I discussed with Dr. Baca -he will do bronchoscopy at 11:30 AM today) 12/27: Intubated yesterday for severe left lung atelectasis. Underwent bronchoscopy by Dr. Baca. Bronchoscopy showed tracheomalacia and bronchomalacia involving right mainstem bronchi, left mainstem and left upper lobe bronchi. Significant thick mucoid secretions in right upper lobe bronchi, left upper bronchus and also left lower lobe. Moderate endobronchitis. Chest x -ray shows moderate improvement in left upper lobe but persistent dense consolidation middle and lower lung zones. Check CT of the chest stat today 12/28: Afebrile. FiO2 at 30% awake alert and awake. Plan extubation today passes parameters.. 12/29: Afebrile. Extubated yesterday without complications to BiPAP currently at 12/5 at 35%. Tolerated taking pills yesterday. Somewhat lethargic this a.m. but this appears to be her baseline 12/30: Afebrile. Currently on room air. Tolerating diet. Remove central line today if furosemide drip changed to 40 mg IV [address] Archer. 12/31 Patient is on 3L oxygen. Awake, alert. Afebrile. Off Lasix drip. 01/01 No events overnight. On 3L oxygen. Off BIPAP. Afebrile. 321: Patient has diminished breath sounds left lung, and the left lung is is rc out on CXR with midline shift indicating complete atelectasis. I discussed with her need for bronchoscopy following intubation. Patient is willing for intubation and bronchoscopy. She does not want trach IF she can be extubated, if not extubated in 4-5 days patient is willing to get trach. I gave her the option for palliative care and comfort measures which patient refused. Discussed with Dr. Michelle who is covering fro Dr. Baca 01/03: Patient was intubated yesterday for almost complete left lung collapse. Had bronchoscopy and large amount of thick mucoid secretions removed from left upper and left lower lobe bronchi. Patient has severe bronchomalacia and bronchial narrowing involving left upper and lower lobe bronchi. Currently using large tidal volumes and high PEEP in an attempt to open up the lung. Patient may need permanent trach. Requiring 40 mcg/min of Ion-Synephrine 01/04: Patient remains intubated sedated but wakes up easily. Chest x-ray today shows improved aeration of the left upper and middle lung west, dense consolidation persists left lower lobe. Start weaning PEEP to 10, reduce tidal volumes to 550-600. Initiate vent weaning trials in 24 hours 01/05: still intubated and sedated. peep 8. off pathway. Subjective 01/06: failing weaning attempts. patient had requested 1 additional weaning attempt prior to tracheostomy, but I do not see this as a realistic possibility. 01/07: Chest x-ray today shows complete opacification of the left lung field again. An entry diminished on the left side on exam. Unable to wean to extubate. General surgery consulted for watery discussed with Dr. Coley. Discussed with ID Dr. Cartagena re: [place] bacteremia. Repeat cultures, completed IV vanc before Objective Vital Signs Date Time Temp Pulse Resp B/P (MAP) Pulse Ox O2 Delivery O2 Flow Rate FiO2 3/26/18 07:28 40 01/07/18 07:26 99 01/07/18 06:00 99 01/07/18 04:00 97.8 16 125/77 (93) Intake and Output 01/07/18 01/07/18 01/08/18 08:00 16:00 00:00 Intake Total 1130 ml Output Total 550 ml Balance 580 ml Result Diagram: 01/07/18 0815 01/06/18 0412 Other Results Microbiology Date/Time Source Procedure Growth Status 01/05/18 12:45 Stool Stool Stool Occult Blood (NATALIE) - Final HEMOCCULT NEGATIVE Complete Imaging Last Impressions Chest X-Ray 12/29/17 0600 Signed Impressions: Service Date/Time: Friday, December 29, 2017 03:16 - CONCLUSION: 1. Improving aeration in the right base with persistent left basilar consolidation/ effusion. Stable cardiomegaly. 2. Interval removal of the endotracheal and nasogastric tubes. Jakob Plunkett MD Chest CT 12/27/17 0000 Signed Impressions: Service Date/Time: December 10:29 - CONCLUSION: 1. Basilar atelectasis and small pleural effusions, increased from November 26. Mild perihilar groundglass opacity present most characteristic of minimal pulmonary edema. 2. Support apparatus as above. Moderate coronary calcifications. Sachin Gonzalez MD Abdomen/Pelvis CT 12/20/17 0000 Signed Impressions: Service Date/Time: December 21:20 - CONCLUSION: Stable appearance to the CT abdomen/pelvis were compared to 11/26/17. Right double-J stent in place, multiple gallstones, left renal mass, left lateral ventral hernia. Dorian Vasquez MD Upper Extremity Ultrasound 12/13/17 0000 Signed Impressions: Service Date/Time: December 13:43 - CONCLUSION: 1. No deep venous thrombosis in the left upper extremity. 2. Superficial thrombosis of the right cephalic vein. El Nuñez MD Lower Extremity Ultrasound 12/13/17 0000 Signed Impressions: Service Date/Time: December 14:26 - CONCLUSION: Normal examination. Domingo Calderon MD Head CT 3/1/18 0000 Signed Impressions: Service Date/Time: December 13:30 - CONCLUSION: Normal examination. Domingo Calderon MD Objective Remarks GENERAL: 67-year-old female lying in bed, critically ill SKIN: Warm and dry. Lower extremity venous stasis changes HEAD: Atraumatic. Normocephalic. EYES: Pupils equal and round about 3 mm bilaterally and reactive. No scleral icterus. No injection or drainage. ENT: No nasal bleeding or discharge. Orotracheally intubated NECK: Trachea midline. No JVD. CARDIOVASCULAR: IRR. Distant heart tones. RESPIRATORY: Air entry significantly diminished left lung west GASTROINTESTINAL: Abdomen soft, obese, nontender. MUSCULOSKELETAL: Extremities with 1+ bilateral upper and lower extremity edema NEUROLOGICAL: Wakes up easily while on sedation. Moves extremities follows commands A/P Assessment and Plan Neuro/Psych: Metabolic encephalopathy -improved Chronic benzodiazepine use Depression disorder NOS Diabetic neuropathy Chronic pain syndrome with chronic narcotic use Propofol for sedation, daily sedation vacation continue hydrocodone/acetaminophen 5/325 1 tablet every 6 hours as needed pain Continue sertraline 100 mg p.o. daily for depression, pregabalin 75 mg p.o. daily for peripheral neuropathy CT brain 12/13 revealed no acute intracranial findings Acetaminophen 650 mg p.o. every 6 hours as needed fever Alprazolam 1 mg twice daily as needed anxiety-hold while intubated CV: Atrial fibrillation with RVR, now rate controlled Hypertension, now hypotensive Fluid overload Holding Lopressor and Cardizem for borderline low BP. Monitor HR and BP keep MAP>65mmHg 2D echocardiogram 12/02 - EF 50-55%. The left atrial size is mildly dilated. The right atrial size is moderately dilated. Trace TR Xarelto on hold due to worsening renal failure If hemoglobin remains stable and improved start IV heparin for chronic atrial fibrillation Resp: Acute hypoxic, hypercapnic respiratory failure Recurrent left lung collapse/mucus plugging Bronchomalacia, with left airway narrowing and collapse APOLONIA/OHS History recurrent MRSA pneumonia Status post intubation and bronchoscopy 12/26/2017 and extubated 12/28, bronchoscopy showed thick mucoid secretions in left upper lobe left lower lobe and right upper lobe Significant tracheomalacia and bronchomalacia involving the right and left main stem bronchi Now with recurrent collapse of the left lung. Status post intubation and bronchoscopy 01/02/2018, similar findings as above CXR today showing near complete opacification of the left lung west Proceed with tracheostomy discussed with Dr. Coley-deann for Sunday (Patient requested to be weaned one more time prior to proceeding with tracheostomy, but unable to wean due to recurrent collapse) Albuterol/ipratropium aerosols every 4 hours with albuterol aerosols every 2 hours as needed dyspnea. Mucomyst Continue budesonide 0.5 mg/2 mL 1 inhalation s every 12 hours Continue Prednisone 20mg BID Dr. Poon pulmonary following. GI: BMI greater than 40 Gastroesophageal reflux disease Hypoalbuminemia Tube feeds with nepro. Famotidine for GI prophylaxis. Patient is on famotidine 20 mg p.o. daily at home Docusate sodium/senna 1 tablet twice daily for bowel regimen. Patient is on senna 8.6 mg twice daily at home Having regular bowel movement. Continue ondansetron 4 mg every 6 hours as needed nausea Renal//FEN: Acute on chronic kidney disease J stent placement Monitor renal function, I/O's, avoid nephrotoxins Solitario catheter to maintain patency with recent pyelonephritis/GJ placement. On Lasix 40mg TID, Renal is following, Cr: 2.7 Outpatient J stent removal should be scheduled by urology that was placed during last hospitalization 12/02 12/20 CT abd/pelvis: No hydronephrosis Continue tamsulosin 0.4 mg daily Endo: Diabetes mellitus Acute hypoglycemia-resolved Sliding scale insulin with Novolin R with Accu-Cheks to maintain euglycemia every 6 hours low regimen Heme: Leukocytosis Normocytic anemia Chronic Rivaroxaban use Right cephalic vein superficial thrombus Monitor CBC On rivaroxaban 10 mg daily-hold due to Cr cl <30. Start IV heparin once Hb stable ID: Urinary tract infection/MDR Klebsiella History of MRSA History of C. difficile Blood cx 12/20 [place] sp Currently on PO vancomycin , ceftazidime/avibactam. IV Vanc per ID repeat cx for [place] bacteremia Monitor for signs of infections (Fever, WBC) Pertinent cultures Urine Legionella pneumococcal antigens negative Urine culture 12/13 Klebsiella ESBL positive positive Blood culture 12/20: OERS[place] SPP Access -Peripheral IV's Prophylaxis -GI -famotidine -DVT -SCD/rivaroxaban. hold due to Cr cl <30. IV heparin-start if Hb stable with transfusion OVERALL IMPRESSION: deconditioned. morbidly obese. multiple failed attempts at weaning. will require tracheostomy and LTAC level care. D/w Dr. rikki montero on Sunday01/09/18 Yoandy Amador MD Jan 07, 2018 10:08
--- NOTE | 2018-01-07 10:44 | HHI.NPPN ---
Subjective Complaints: Shortness of Breath Renal Failure: Acute Interval History She remains intubated, eyes open, nodding yes/no to questions. On 40% FiO2. Labs from today are not available. (Suad Lucas) Review of Systems General General Remarks unable to obtain (Suad Lucas) Cardiovascular Cardiac: Edema (Suad Lucas) Objective Data Data Vital Signs Date Time Temp Pulse Resp B/P (MAP) Pulse Ox O2 Delivery O2 Flow Rate FiO2 01/07/18 07:28 40 01/07/18 07:26 99 40 01/07/18 06:00 99 01/07/18 04:00 97.8 97 16 125/77 (93) 100 01/07/18 04:00 97 01/07/18 04:00 40 01/07/18 03:31 100 40 01/07/18 02:00 85 01/07/18 00:00 40 01/07/18 00:00 95 01/07/18 00:00 98.0 95 16 119/77 (91) 100 01/06/18 23:16 100 40 01/06/18 22:00 93 01/06/18 20:24 100 40 01/06/18 20:00 89 01/06/18 20:00 40 01/06/18 20:00 97.6 89 16 105/59 (74) 100 01/06/18 18:00 94 01/06/18 16:07 100 40 01/06/18 16:00 97.8 91 16 133/77 (95) 100 01/06/18 16:00 40 01/06/18 16:00 91 01/06/18 14:00 93 01/06/18 12:00 97.7 90 16 115/74 (88) 100 01/06/18 12:00 90 01/06/18 12:00 40 01/06/18 11:34 100 40 (Suad Lucas) -: 01/07/18 0815 01/06/18 0412 Imaging Last 72 hours Impressions Chest X-Ray 01/05/18 0600 Signed Impressions: Service Date/Time: Friday, January 05, 2018 03:04 - CONCLUSION: 1. Volume loss and mediastinal shift remain in the left lower lobe. There is apparent cutoff of the left mainstem bronchus and could be secondary to mucous plugging. 2. Dense opacity remains at the left lung base with blunting of the costophrenic angle. This could represent pneumonia and/or atelectasis. Chintan Marshall MD Tubes & Lines: Solitario Drip Comment propofol (Suad Lucas. [employer]) Physical Exam General Appearance: Well Developed, No Acute Distress, Comfortable, Obese (Suad Lucas B. [employer]) Throat Throat Exam: Oral Mucosa [place] & Moist (Lewis Lucason B. [employer]) Pulmonary Resp Exam: Clear Bilaterally, Breath Sounds Equal, No Distress, Rhonchi, Decreased Bases, Diminished Breath Sounds Resp Remarks minimal air movement on left (Suad Lucas B. [employer]W [employer]) Cardiology CV Exam: Good Perfusion, Irregular, Tachycardia (Suad Lucas B. [employer]) Gastrointestinal/Abdomen GI Exam: Soft, Non-Tender, Bowel Sounds Present GI Remarks super morbidly obese (Suad Lucas B. [employer]) Musculoskeletal MS Exam: Joints Intact, Normal Tone, Unable to Ambulate (Suad Lucas B. [employer]W [employer]) Integumentary Skin Exam: Warm, Dry, Intact (Suad Lucas B. [employer]W [employer]) Extremeties Extremities Exam: Pedal Pulses Palpable, Moderate Edema, Dependent Edema (Suad Lucas B. [employer]W [employer]) Neurologic Neuro Exam: Awake, Moving All Extremities, Unresponsive, Sedated (Suad Lucas B. [employer]W [employer]) Psychiatric Psych Exam: Appropriate Responses (Suad Lucas B. [employer]W [employer]) VTE Prophylaxis Device: SCDs (Suad Lucas B. [employer]W [employer]PER[employer]) Assessment/Plan Discussed Condition With: Patient Assessment Summary: FREDDY/Acute Renal Failure, Fluid/Volume Overload, Hypotension Problem List: (1) FREDDY (acute kidney injury) ICD Codes: N17.9 - Acute kidney failure, unspecified Plan: Her best creatinine at discharge was 1.2 FREDDY likely due to ATN secondary to hypoperfusion injury, also due to sepsis with UTI. Pending Renal function from today Avoid hypotension, she is off pressros On Lasix 40 mg IV TID, extensive fluid overload persists. On Albumin also. Follow urine output Repeat labs in AM (2) Respiratory failure ICD Codes: J96.90 - Respiratory failure, unspecified, unspecified whether with hypoxia or hypercapnia Plan: s/p intubation, s/p 2nd bronchoscopy with suctioning/bronchial washing first bronchoscopy with multiple mucous plugs identified and suctioned. Also has tracheomalacia and bronchomalacia most likely will need tracheostomy (3) UTI (urinary tract infection) ICD Codes: N39.0 - Urinary tract infection, site not specified Plan: ID is following. On Avycaz, stop date 01/09. Ordered IV Vancomycin Has MDRO Klebsiella Sp. Contact precautions (4) Pneumonia ICD Codes: J18.9 - Pneumonia, unspecified organism Status: Acute Plan: See above. ID is following. On IV Avycaz adn now IV Vanco Blood cultures show OERSKOVIA SPP (5) Anemia ICD Codes: D64.9 - Anemia, unspecified Plan: Worsening anemia, transfusion ordered for today No evidence of iron deficiency Monitor hemoglobin (6) C. difficile colitis ICD Codes: A04.72 - Enterocolitis due to Clostridium difficile, not specified as recurrent Plan: Tested Nov 22, has been on treatment since then. Consider stopping and monitoring off PO vancomycin (currently taper) Contact precautions. (7) Afib ICD Codes: I48.91 - Unspecified atrial fibrillation Status: Chronic Plan: tachycardic today, intermittently hypotensive On PO Cardizem (has been held), also on metoprolol to 50 BID (hold PRN hypotension) (8) Hypernatremia ICD Codes: E87.0 - Hyperosmolality and hypernatremia Plan: Improved (Suad Lucas) Plan patient was seen and examined. Renal function is worsening. Discussed with Dr. Cartagena, she will be on Vancomycin. (Mohinder Lopez MD) Problem Qualifiers (1) Afib: Qualified Codes: I48.2 - Chronic atrial fibrillation Suad Lucas Jan 07, 2018 10:44 Mohinder Lopez MD Jan 08, 2018 15:17
[2018-01-07] MEDS: RESP: ALBUTEROL 2.5 MG/3 ML NEB (PRN) NEB (11:26)
--- NOTE | 2018-01-07 12:36 | HHI.PR ---
Subjective Remarks On Vent support and on FIO2 35 %. Awake and responds well. Has Complete whiteout of left lung again Urine output was low . Will Need Trach . Objective Vital Signs Date Time Temp Pulse Resp B/P (MAP) Pulse Ox O2 Delivery O2 Flow Rate FiO2 01/07/18 12:00 98.1 97 14 110/75 (87) 100 01/07/18 12:00 97 01/07/18 12:00 40 01/07/18 11:57 100 40 01/07/18 11:00 90 13 102/74 (83) 100 01/07/18 10:00 106 17 106/69 (81) 100 01/07/18 10:00 106 01/07/18 09:01 106 15 106/63 (77) 97 01/07/18 08:00 97.9 90 12 102/61 (75) 93 01/07/18 08:00 90 01/07/18 08:00 40 01/07/18 07:28 40 01/07/18 07:26 99 40 01/07/18 07:00 100 16 105/69 (81) 100 01/07/18 06:01 88 21 92/50 (64) 100 01/07/18 06:00 99 01/07/18 05:01 93 16 115/72 (86) 100 01/07/18 04:00 97.8 97 16 125/77 (93) 100 01/07/18 04:00 97 01/07/18 04:00 40 01/07/18 03:31 100 40 01/07/18 02:00 85 01/07/18 00:00 40 01/07/18 00:00 95 01/07/18 00:00 98.0 95 16 119/77 (91) 100 01/06/18 23:16 100 40 01/06/18 22:00 93 01/06/18 20:24 100 40 01/06/18 20:00 89 01/06/18 20:00 40 01/06/18 20:00 97.6 89 16 105/59 (74) 100 01/06/18 18:00 94 01/06/18 16:07 100 40 01/06/18 16:00 97.8 91 16 133/77 (95) 100 01/06/18 16:00 40 01/06/18 16:00 91 01/06/18 14:00 93 I/O 01/06/18 01/06/18 01/06/18 01/07/18 01/07/18 01/07/18 07:00 15:00 23:00 07:00 15:00 23:00 Intake Total 1241 ml 1459 ml 1130 ml Output Total 300 ml 800 ml 550 ml Balance 941 ml 659 ml 580 ml IV Total 700 ml 900 ml 642 ml Tube Feeding 481 ml 499 ml 428 ml Other 60 ml 60 ml 60 ml Output Urine Total 300 ml 800 ml 550 ml # Bowel Movements 0 1 2 Result Diagram: 01/07/18 0815 01/06/18 0412 Objective Remarks GENERAL: This is a Obese elderly W/F patient, Awake and on Vent support CARDIOVASCULAR: Regular rate and rhythm without murmurs, gallops, or rubs. RESPIRATORY: Diffuse expiratory wheezes, diminished breath sounds left chest . Crackles at bases . GASTROINTESTINAL: Abdomen soft, non-tender,nondistended. Normal active bowel sounds MUSCULOSKELETAL: Extremities without clubbing, cyanosis,but has 1 + edema. NEURO: awake .1 + Reflexes. Assessment and Plan Assessment and Plan (1) Chronic hypercapnic respiratory failure Diagnosis: Principal (2) Hypoglycemia Diagnosis: Principal (3) BMI 50.0-59.9, adult Diagnosis: Principal (4) Afib Diagnosis: Secondary (5) Dyslipidemia Diagnosis: Secondary (6) Peripheral neuropathy Diagnosis: Secondary (7) Diabetes mellitus Diagnosis: Principal (8) Essential hypertension Diagnosis: Principal (9) Hiatal hernia Diagnosis: Secondary (10) Gastroesophageal reflux disease Diagnosis: Secondary (11) Chronic kidney disease (CKD) stage G3a/A3, moderately decreased glomerular filtration rate (GFR) between 45-59 mL/min/1.73 square meter and albuminuria creatinine ratio greater than 300 mg/g Diagnosis: Secondary (12) Left Lung atelectasis. Plan : 1 Wean FIO 2 and keep sat >92 2. Continue antibiotics.per ID 3 PT evaluation 4. Duonebs qid. 5. Keep mostly on right side 6. Bronchoscopy when trach is being placed in am 7. Continue steroids 8. Tracheostomy soon. Francoise Poon MD Jan 07, 2018 12:36
[2018-01-07 14:05] LABS: ALBUMIN 3.8 GM/DL (3.4-5.0); BICARBONATE 21.5 MEQ/L (21.0-32.0); CALCIUM 8.5 MG/DL (8.5-10.1); CREATININE 2.81 MG/DL (0.50-1.00); PHOSPHORUS 4.8 MG/DL (2.5-4.9)
[2018-01-07] MEDS ORDERED: POTASSIUM CHLORIDE 25 MEQ EFFERVESCENT TAB G-TUBE ONE (19:45)
[2018-01-07 21:43] LABS: ALBUMIN 3.4 GM/DL (3.4-5.0); ALKALINE PHOSPHATASE 69 U/L (45-117); ALT (GPT) 22 U/L (10-53); AST (GOT) 29 U/L (15-37); BICARBONATE 17.6 MEQ/L (21.0-32.0); CHLORIDE 109 MEQ/L (98-107); CREATININE 2.87 MG/DL (0.50-1.00); GLOMERULAR FILTRATION RATE 16 ML/MIN (>89); GLUCOSE,RANDOM 122 MG/DL (74-106); SODIUM (NA) 144 MEQ/L (136-145); TOTAL BILIRUBIN ADULT 0.7 MG/DL (0.2-1.0); TOTAL PROTEIN 5.5 GM/DL (6.4-8.2)
[2018-01-07 21:44] LABS: BLOOD UREA NITROGEN 60 MG/DL (7-18)
[2018-01-08] VITALS (17 sets, daily range): BP systolic 130–164; BP diastolic 58–91; PULSE 80–99; RESP 16–17; TEMP 97.1–98.3; O2SAT 99–100
[2018-01-08] MEDS: ALBUMIN 5% INJ 500 ML IV SCH (00:34)
[2018-01-08] MEDS: ARTIFICIAL TEARS OPTH SOLN 15 ML BTL EACH EYE SCH ×4 (00:35→20:31)
[2018-01-08] MEDS: FAMOTIDINE 20 MG TAB PO SCH ×2 (00:35→20:31)
[2018-01-08] MEDS: NYSTATIN 100,000 U/GM PWD 15 GM BTL TOPICAL SCH ×3 (00:36→20:31)
[2018-01-08] MEDS: cefTAZidime/AVIBACTAM INJ 0.94 GM in SODIUM CHLORIDE 0.9% INJ 50 ML IV SCH ×3 (00:37→20:31)
[2018-01-08] MEDS: PROPOFOL 1000 MG/100 ML INJ 100 ML IV PRN ×2 (00:38→15:12)
[2018-01-08] MEDS: CHLORHEXIDINE GLUCONATE 2 % 1 PACK (2 CLOTHS) TOP SCH (04:00)
[2018-01-08 06:12] LABS: AUTOMATED NEUTROPHIL # 9.7 TH/MM3 (1.8-7.7); BASOPHIL % 0.5 % (0.0-2.0); EOSINOPHIL # 0.1 TH/MM3 (0-0.4); EOSINOPHIL % 0.6 % (0.0-4.0); HEMATOCRIT 24.6 % (35.0-46.0); HEMOGLOBIN 8.2 GM/DL (11.6-15.3); LYMPH % 2.6 % (9.0-44.0); LYMPHOCYTE # 0.3 TH/MM3 (1.0-4.8); MEAN CELL VOLUME 90.9 FL (80.0-100.0); MEAN CORPUSCULAR HEMOGLOBIN 30.2 PG (27.0-34.0); MEAN CORPUSCULAR HGB CONC 33.2 % (32.0-36.0); MEAN PLATELET VOLUME 10.1 FL (7.0-11.0); MONO % 4.3 % (0.0-8.0); MONOCYTE # 0.5 TH/MM3 (0-0.9); PLATELET COUNT 84 TH/MM3 (150-450); RED BLOOD COUNT 2.71 MIL/MM3 (4.00-5.30); RED CELL DISTRIBUTION WIDTH 23.2 % (11.6-17.2); WHITE BLOOD COUNT 10.5 TH/MM3 (4.0-11.0)
[2018-01-08 06:34] LABS: ALBUMIN 3.7 GM/DL (3.4-5.0); ALT (GPT) 25 U/L (10-53); AST (GOT) 16 U/L (15-37); BICARBONATE 20.7 MEQ/L (21.0-32.0); BLOOD UREA NITROGEN 62 MG/DL (7-18); CALCIUM 8.3 MG/DL (8.5-10.1); CHLORIDE 108 MEQ/L (98-107); GLOMERULAR FILTRATION RATE 18 ML/MIN (>89); GLUCOSE,RANDOM 125 MG/DL (74-106); SODIUM (NA) 144 MEQ/L (136-145)
[2018-01-08 06:36] LABS: ALKALINE PHOSPHATASE 77 U/L (45-117); RANDOM VANCOMYCIN 20.3 COMMENT; TOTAL BILIRUBIN ADULT 0.4 MG/DL (0.2-1.0)
[2018-01-08] MEDS: RESP: BUDESONIDE 0.5 MG/2 ML NEB NEB SCH ×2 (07:38→20:41)
[2018-01-08 07:48] LABS: OVALOCYTES 1+ (NORMAL)
[2018-01-08] MEDS: INSULIN NovoLIN REGULAR SUPPLEMENTAL SCALE SQ SCH ×4 (08:00→20:32)
[2018-01-08] MEDS: VANCOMYCIN 25 MG/ML SOLN 100 ML BOTTLE PO SCH ×2 (08:30→20:32)
[2018-01-08] MEDS: PREGABALIN 75 MG CAP PO SCH (08:31)
[2018-01-08] MEDS: TAMSULOSIN HCL 0.4 MG CAP PO SCH (08:31)
[2018-01-08] MEDS: SERTRALINE HCL 100 MG TAB PO SCH (08:31)
[2018-01-08] MEDS: LACTOBACILLUS ACIDOPHILUS TAB PO SCH ×3 (08:31→17:15)
[2018-01-08] MEDS: DOCUSATE SODIUM 50 MG/SENNA 8.6 MG TAB PO SCH ×2 (08:31→20:31)
[2018-01-08] MEDS: METOPROLOL TARTRATE 50 MG TAB PO SCH ×2 (08:31→20:31)
[2018-01-08] MEDS: ASCORBIC ACID 500 MG TAB PO SCH ×2 (08:31→20:31)
[2018-01-08] MEDS: SODIUM CHLORIDE 0.9% FLUSH 10 ML FLUSH IV FLUSH SCH ×2 (08:32→20:32)
[2018-01-08] MEDS: FUROSEMIDE 40 MG/4 ML VIAL IV PUSH SCH ×3 (08:32→17:14)
[2018-01-08] MEDS: MUPIROCIN 2% OINT 1 APPLIC/GM SYR EACH NARE SCH ×2 (08:32→20:31)
[2018-01-08] MEDS: predniSONE 20 MG TAB PO SCH (08:32)
[2018-01-08] MEDS: CHLORHEXIDINE 0.12% (ORAL KIT) 15 ML CUP MT SCH ×2 (08:33→20:00)
--- NOTE | 2018-01-08 09:08 | MB ---
cc: Chintan Coley MD DATE: 01/07/2018 REASON FOR CONSULTATION: Redo tracheostomy. HISTORY OF PRESENT ILLNESS: The patient is a 67-year-old female who was admitted December 13 with elevated BMI, chronic asthma, on chronic oxygen, atrial fibrillation, hypertension and dyslipidemia. The patient was found unresponsive in the correction and is morbidly obese, with multiple severe chronic illnesses. Patient had admission with intubation and pressor infusions initially on and off. The patient's other medical problems include tracheomalacia with bronchomalacia involving the right main stem bronchus, left mainstem and left upper lobe bronchi. There are thick mucoid secretions noted on 12/27. The patient was extubated on 12/29 and on BiPAP. She was on room air on 12/30. She had diminished breath sounds in the left lung on 01/02 and rc out chest x-ray with midline shift. The patient had intubation and bronchoscopy on 01/02. She had indicated wishing to get a tracheostomy if not able to be extubated in 4-5 days. Bronchoscopy on 01/02 demonstrated a large amount of thick mucoid secretions. The patient had failed weaning attempts and we have been asked to see the patient to discuss tracheostomy. The patient has previously undergone tracheostomy in October 2016. PAST MEDICAL HISTORY: Include depressive disorder, diabetic neuropathy, chronic pain syndrome with chronic narcotic use and morbid obesity. Atrial fibrillation with RVR, hypertension, bronchomalacia, GE reflux disease, acute on chronic kidney disease, diabetes mellitus and Klebsiella extended spectrum beta lactamase positive. PHYSICAL EXAMINATION: GENERAL: Exam reveals a morbidly obese female who is lying in bed, but is responsive. VITAL SIGNS: At the time of exam revealed BP 106/69, pulse 106, respirations 17, temperature 97.9. HEENT: Sclerae anicteric. PULMONARY: Chest is actually clear to auscultation bilaterally, without rhonchi. HEART: Reveals tachycardia, without murmurs. ABDOMEN: Soft and nontender. I am not able to palpate pulses, but her extremities are warm. NEUROLOGIC: She is responsive. LABORATORY DATA: Demonstrate WBC 10.1, hemoglobin is 6.8, platelets 92,000. Chemistries demonstrate BUN and creatinine of 60 and 2.87, potassium is 4.4. Coags demonstrate an INR of 1.2. ASSESSMENT AND PLAN: Multiple medical problems. Would be agreeable to the patient undergoing a transfusion if Hb remains <8.0. She is only on FIO2 of 40%, with minimal settings at this time. She will fail extubation once again and it is reasonable to place a tracheostomy semi-permanently. I will likely place a Bivona or XLT tracheostomy tube that may be maintained for a long period of time. The tracheostomy tube can be changed out after approximately 2 weeks if the patient needs it cleaned. We will discuss with the patient's daughter particulars and I anticipate being able to place a tracheostomy on Sunday, 01/09, if she remains stable. MD SHAHEEN Goodson/MATTHEW , 10:05 PM , 10:58 PM MTDCheco
--- NOTE | 2018-01-08 09:37 | HHI.IDPN ---
Subjective Subjective Remarks Patient is a 67-year-old female, [facility], brought into the hospital after she was found unresponsive. She had a recent hospitalization where she was diagnosed to have sepsis related to complicated UTI. During that hospitalization she underwent stent placement. She also had C. difficile colitis during that admission. Patient states that she uses a BiPAP machine in the [facility] usually when she is sleeping. She is nonambulatory. Denies any significant cough or congestion. No chest pain. There was no mention of any fever or chills or sweats. When she also came to the hospital this time she was on pressors for hypotension. She improved clinically and her hemodynamics stabilize. However yesterday she went hypotensive again, an infectious disease consultation has been requested to evaluate the patient. ID following for KPC positive UTI, Pneumonia. Patient known to me from prior admissions with prior MDR UTI and Cdiff last admission. Notes reviewed On the vent Last CXR with complete opacification again on L Seen by surgery to evaluate for tracheostomy Temps ok Sedated on the vent To finish Avycaz 01/09 Started on IV vanco 01/07 for one (+) BC with Oerskovia Repeat BC negative so far RIJ line has been removed Antibiotics Avycaz - to finish 01/09 PO Vanco - tapering IV Vanco Current Medications Medications (Trade) Dose Ordered Sig/Mirta Route Start Time Stop Time Status Last Admin (NS Flush) 2 ml UNSCH PRN IV FLUSH 12/13/17 13:30 (NS Flush) 2 ml BID IV FLUSH 12/13/17 21:00 01/08/18 08:32 (Zofran Inj) 4 mg Q6H PRN IV PUSH 12/13/17 13:30 01/04/18 05:39 Miscellaneous Information 1 Q361D XX 12/13/17 13:30 12/13/17 13:30 (Chlorhexidine 2% Cloth) Taper DAILY@04 TOP 12/14/17 04:00 12/10/18 03:59 01/07/18 02:59 (Chlorhexidine 2% Cloth) 3 pack UNSCH PRN TOP 12/13/17 13:30 (Zelda-Colace) 1 tab BID PO 12/13/17 21:00 01/08/18 08:31 (Milk Of Magnesia Liq) 30 ml Q12H PRN PO 12/13/17 13:30 (Senokot) 17.2 mg Q12H PRN PO 12/13/17 13:30 (Dulcolax Supp) 10 mg DAILY PRN RECTAL 12/13/17 13:30 (Lactulose Liq) 30 ml DAILY PRN PO 12/13/17 13:30 (Xanax) 1 mg BID PRN PO 12/13/17 13:30 (Pulmicort Respule Neb) 0.5 mg Q12HR NEB NEB 12/13/17 20:00 01/08/18 07:38 (Lyrica) 75 mg DAILY PO 12/14/17 09:00 01/08/18 08:31 (Zoloft) 100 mg DAILY PO 12/14/17 09:00 01/08/18 08:31 (Vitamin C) 500 mg BID PO 12/13/17 21:00 01/08/18 08:31 (Lactinex) 1 tab TID PO 12/13/17 18:00 01/08/18 08:31 (D50w (Vial) Inj) 50 ml UNSCH PRN IV PUSH 12/13/17 13:30 12/19/17 22:25 (Glucagon Inj) 1 mg UNSCH PRN OTHER 12/13/17 13:30 (Pill Splitter) 1 ea UNSCH PRN OTHER 12/13/17 13:30 (Xarelto) 10 mg DAILY PO 12/14/17 09:00 Future Hold 01/04/18 07:59 (Mycostatin Powder) 1 applic Q12HR TOPICAL 12/13/17 21:00 01/08/18 08:32 (Trandate Inj) 10 mg Q1HR PRN IV PUSH 12/13/17 17:00 (Nitroglycerin 2% Oint) 2 inch Q6HR PRN TOPICAL 12/13/17 18:00 (Apresoline Inj) 10 mg Q1HR PRN IV PUSH 12/13/17 17:00 (Brethine Inj) 1 mg UNSCH PRN SQ 12/15/17 10:15 (Bactroban Nasal 2% Oint) 1 applic Taper BID EACH NARE 12/15/17 21:00 12/11/18 20:59 01/08/18 08:32 Ceftazidime/ Avibactam 0.94 gm/ Sodium Chloride 50 ml @ 25 mls/hr Q12HR IV 12/20/17 13:00 01/09/18 23:00 01/08/18 09:19 (Cardizem) 60 mg Q6HR PO 12/24/17 12:00 Future Hold 01/01/18 01:50 (Deltasone) 20 mg BID PO 12/24/17 21:00 01/08/18 08:32 (Peridex 0.12% Liq) 15 ml BID@08,20 MT 12/26/17 20:00 01/08/18 08:33 (Tears Naturale Opth Soln) 1 drop Q8HR EACH EYE 12/28/17 14:00 01/08/18 06:00 (Albuterol Neb) 2.5 mg Q2HR NEB PRN NEB 12/28/17 11:30 01/07/18 11:26 (Flomax) 0.4 mg DAILY PO 12/29/17 09:00 01/08/18 08:31 (Tylenol 650 Mg/ 20 ml Liq) 650 mg Q6H PRN PO 12/28/17 11:45 (NovoLIN R SUPPLEMENTAL SCALE) 1 ACHS SQ 12/29/17 12:00 01/05/18 09:14 (Pepcid) 20 mg HS PO 12/29/17 21:00 01/08/18 00:35 (Garnavillo 5-325 Mg) 1 tab Q4H PRN PO 12/29/17 08:30 01/04/18 05:38 (Vancomycin 25 Mg/ml Liq) 125 mg BID PO 12/31/17 21:00 01/08/18 08:30 (Lopressor) 50 mg Q12HR PO 01/01/18 21:00 01/08/18 08:31 Phenylephrine HCl 40 mg/Dextrose 500 ml @ 30 mls/hr TITRATE PRN IV 01/02/18 12:00 01/03/18 00:50 Propofol 100 ml @ 4.176 mls/ hr TITRATE PRN IV 01/02/18 11:30 01/08/18 00:38 Heparin Sodium/ Dextrose 250 ml @ 10 mls/hr TITRATE PRN IV 01/04/18 10:45 (Lasix Inj) 40 mg TID IV PUSH 01/04/18 18:00 01/08/18 08:32 Lines Line no evidence of infection Past Medical History Chronic respiratory failure secondary to APOLONIA, OHS and bronchial asthma Atrial fibrillation rate controlled Hypertension Dyslipidemia Gastroesophageal reflux disease Elevated BMI greater than 50 Recurrent MRSA pneumonia Depression Constipation Past Surgical History JJ stent placement by urology Hiatal hernia surgery Appendectomy Percutaneous tracheostomy by Dr. Mullins since decannulated Allergies: Coded Allergies: penicillin G (Unverified Allergy, Severe, 05/29/17) Objective . Vital Signs Date Time Temp Pulse Resp B/P (MAP) Pulse Ox O2 Delivery O2 Flow Rate FiO2 01/08/18 07:59 100 40 01/08/18 06:00 84 01/08/18 04:18 100 40 01/08/18 04:00 40 01/08/18 04:00 80 01/08/18 04:00 97.5 88 16 164/74 (104) 100 01/08/18 02:00 89 01/08/18 00:55 100 40 01/08/18 00:00 89 01/08/18 00:00 40 01/08/18 00:00 97.1 89 16 150/81 (104) 100 01/07/18 22:05 100 40 01/07/18 22:00 86 01/07/18 20:51 100 40 01/07/18 20:00 40 01/07/18 20:00 97.0 86 13 133/73 (93) 100 01/07/18 20:00 86 01/07/18 18:00 105 01/07/18 17:48 98.2 97 15 112/77 (89) 100 01/07/18 17:48 98.2 97 15 100 01/07/18 17:46 98.0 98 15 124/77 100 01/07/18 17:00 103 15 112/77 (89) 100 01/07/18 16:53 100 40 01/07/18 16:00 98.3 93 13 121/69 (86) 100 01/07/18 16:00 40 01/07/18 16:00 93 01/07/18 15:03 97 13 122/74 (90) 100 01/07/18 14:00 99 13 118/65 (82) 100 01/07/18 14:00 99 01/07/18 13:00 95 13 117/75 (89) 99 01/07/18 12:00 98.1 97 14 110/75 (87) 100 01/07/18 12:00 97 01/07/18 12:00 40 01/07/18 11:57 100 40 01/07/18 11:00 90 13 102/74 (83) 100 01/07/18 10:00 106 17 106/69 (81) 100 01/07/18 10:00 106 . Laboratory Tests Test 01/07/18 08:15 01/08/18 05:56 White Blood Count 10.1 TH/MM3 10.5 TH/MM3 Red Blood Count 2.24 MIL/MM3 2.71 MIL/MM3 Hemoglobin 6.8 GM/DL 8.2 GM/DL Hematocrit 20.9 % 24.6 % Mean Corpuscular Volume 93.0 FL 90.9 FL Mean Corpuscular Hemoglobin 30.2 PG 30.2 PG Mean Corpuscular Hemoglobin Concent 32.5 % 33.2 % Red Cell Distribution Width 22.2 % 23.2 % Platelet Count 92 TH/MM3 84 TH/MM3 Mean Platelet Volume 10.1 FL 10.1 FL Neutrophils (%) (Auto) 91.6 % 92.0 % Lymphocytes (%) (Auto) 3.4 % 2.6 % Monocytes (%) (Auto) 4.5 % 4.3 % Eosinophils (%) (Auto) 0.3 % 0.6 % Basophils (%) (Auto) 0.2 % 0.5 % Neutrophils # (Auto) 9.2 TH/MM3 9.7 TH/MM3 Lymphocytes # (Auto) 0.3 TH/MM3 0.3 TH/MM3 Monocytes # (Auto) 0.5 TH/MM3 0.5 TH/MM3 Eosinophils # (Auto) 0.0 TH/MM3 0.1 TH/MM3 Basophils # (Auto) 0.0 TH/MM3 0.0 TH/MM3 CBC Comment AUTO DIFF AUTO DIFF Differential Comment AUTO DIFF CONFIRMED AUTO DIFF CONFIRMED Platelet Estimate LOW LOW Platelet Morphology Comment NORMAL NORMAL Acanthocytes OCC Ovalocytes 1+ Laboratory Tests Test 01/07/18 12:00 01/07/18 19:10 01/08/18 05:56 Blood Urea Nitrogen 62 MG/DL 60 MG/DL 62 MG/DL Creatinine 2.81 MG/DL 2.87 MG/DL 2.70 MG/DL Random Glucose 98 MG/DL 122 MG/DL 125 MG/DL Albumin 3.8 GM/DL 3.4 GM/DL 3.7 GM/DL Calcium Level 8.5 MG/DL 8.0 MG/DL 8.3 MG/DL Phosphorus Level 4.8 MG/DL Sodium Level 143 MEQ/L 144 MEQ/L 144 MEQ/L Potassium Level 3.3 MEQ/L 4.4 MEQ/L 3.8 MEQ/L Chloride Level 107 MEQ/L 109 MEQ/L 108 MEQ/L Carbon Dioxide Level 21.5 MEQ/L 17.6 MEQ/L 20.7 MEQ/L Anion Gap 15 MEQ/L 17 MEQ/L 15 MEQ/L Estimat Glomerular Filtration Rate 17 ML/MIN 16 ML/MIN 18 ML/MIN Total Protein 5.5 GM/DL 6.0 GM/DL Alkaline Phosphatase 69 U/L 77 U/L Aspartate Amino Transf (AST/SGOT) 29 U/L 16 U/L Alanine Aminotransferase (ALT/SGPT) 22 U/L 25 U/L Total Bilirubin 0.7 MG/DL 0.4 MG/DL Microbiology Date/Time Source Procedure Growth Status 01/07/18 12:00 Blood Peripheral Aerobic Blood Culture Pending Received 01/07/18 12:00 Blood Peripheral Anaerobic Blood Culture Pending Received 01/07/18 11:45 Blood Peripheral Aerobic Blood Culture Pending Received 01/07/18 11:45 Blood Peripheral Anaerobic Blood Culture Pending Received 01/05/18 12:45 Stool Stool Stool Occult Blood (NATALIE) - Final HEMOCCULT NEGATIVE Complete Imaging Chest X-Ray 01/07/18 0000 Signed Impressions: Service Date/Time: Sunday, January 07, 2018 06:51 - CONCLUSION: 1. Worsening opacification of the left chest with volume loss likely secondary to worsening atelectasis. 2. Cardiomegaly. 3. Hazy density at the mid and lower right lung likely related to underlying edema and mild effusion. Perry Frye MD Chest CT 12/27/17 0000 Signed Impressions: Service Date/Time: December 10:29 - CONCLUSION: 1. Basilar atelectasis and small pleural effusions, increased from November 26. Mild perihilar groundglass opacity present most characteristic of minimal pulmonary edema. 2. Support apparatus as above. Moderate coronary calcifications. Sachin Gonzalez MD Abdomen/Pelvis CT 12/20/17 0000 Signed Impressions: Service Date/Time: December 21:20 - CONCLUSION: Stable appearance to the CT abdomen/pelvis were compared to 11/26/17. Right double-J stent in place, multiple gallstones, left renal mass, left lateral ventral hernia. Dorian Vasquez MD Upper Extremity Ultrasound 12/13/17 0000 Signed Impressions: Service Date/Time: December 13:43 - CONCLUSION: 1. No deep venous thrombosis in the left upper extremity. 2. Superficial thrombosis of the right cephalic vein. El Nuñez MD Lower Extremity Ultrasound 12/13/17 0000 Signed Impressions: Service Date/Time: December 14:26 - CONCLUSION: Normal examination. Domingo Calderon MD Head CT 12/13/17 0000 Signed Impressions: Service Date/Time: December 13:30 - CONCLUSION: Normal examination. Domingo Calderon MD Chest X-Ray 01/04/18 0600 Signed Impressions: Service Date/Time: Thursday, January 04, 2018 04:15 - CONCLUSION: 1. Interval improvement in opacity in the left lung with aeration now noted in the upper lobe and perihilar region. Dense consolidation remains in the left lung base. 2. The patient is rotated to the left. Chintan Marshall MD Chest CT 12/27/17 0000 Signed Impressions: Service Date/Time: December 10:29 - CONCLUSION: 1. Basilar atelectasis and small pleural effusions, increased from November 26. Mild perihilar groundglass opacity present most characteristic of minimal pulmonary edema. 2. Support apparatus as above. Moderate coronary calcifications. Sachin Gonzalez MD Abdomen/Pelvis CT 12/20/17 0000 Signed Impressions: Service Date/Time: December 21:20 - CONCLUSION: Stable appearance to the CT abdomen/pelvis were compared to 11/26/17. Right double-J stent in place, multiple gallstones, left renal mass, left lateral ventral hernia. Dorian Vasquez MD Upper Extremity Ultrasound 12/13/17 0000 Signed Impressions: Service Date/Time: December 13:43 - CONCLUSION: 1. No deep venous thrombosis in the left upper extremity. 2. Superficial thrombosis of the right cephalic vein. El Nuñez MD Lower Extremity Ultrasound 12/13/17 0000 Signed Impressions: Service Date/Time: December 14:26 - CONCLUSION: Normal examination. Domingo Calderon MD Head CT 12/13/17 0000 Signed Impressions: Service Date/Time: December 13:30 - CONCLUSION: Normal examination. Domingo Calderon MD Physical Exam GENERAL: Sedated on the vent, NAD SKIN: Cool and dry. No generalized rash. edematous HEAD: Atraumatic. Normocephalic. No temporal wasting, or tenderness. EYES: Ogilvie conjunctiva. No petechia or hemorrhage. Pupils equal, round and reactive to light. No scleral icterus. EARS, NOSE AND THROAT: Nose without bleeding or purulent nasal discharge. Moist mucosa NECK: Trachea midline. Supple and not tender, no meningeal signs CARDIOVASCULAR: Regular rate and rhythm. No murmurs, rubs or gallops heard RESPIRATORY: Decreased breath sounds R base, markedly decreased whole L side ABDOMEN: Soft, obese, no reaction to palpation, nondistended. Edematous Bowel sounds present and normoactive. EXTREMITIES: No clubbing, cyanosis. Prominent pitting diffuse edema. No calf tenderness. . NEUROLOGICAL: Opens eyes spontaneously. Moves all 4 extremities. PSYCH: Unable to assess LINE: Line no evidence of infection Assessment & Plan Remarks IMPRESSION UTI, with Klebsiella Kleb MDR CRE ESBL+ Oerskovia species (GNR bacteremia): history of prior lines. - ?significance Previous episode of complicated UTI,, has stent in place, had obstruction - CT A/P looks ok, stent in place, no hydro Known APOLONIA Respiratory failure, chronically on BIPAP mask - CXR with white out L, due to plugging, atelectasis - ?PNA - bronch C/S negative - extubated 12/28, reintubated 01/02 - has tracheomalacia seen on bronchoscopy Obesity Renal insufficiency, chronic Allergy to PCN, tolerates Cephalosporins RECOMMENDATION Continue Avycaz IV (ASP: KPC positive UTI, CRE) follow cultures to deescalate. Continue oral vanco in view of persistent diarrhea. On Vanco IV to be dosed by ID based on levels to cover Oerskovia bacteremia. Follow repeat BC Being evaluated for trach Monitor pulmonary status Monitor progress Marely Plunkett MD Jan 08, 2018 09:37
--- NOTE | 2018-01-08 09:42 | PD.CONS ---
HPI History of Present Illness This is a 67 year old F with morbid obesity, asthma, HTN, DM, dyslipidemia, GERD , a-fib, and CKD who was brought to the [facility] after being found unresponsive at the [facility]. Pt was found to be hypoxic in acute hypercapnic respiratory failure and hypoglycemic on arrival. Pt is now admitted to ICU and intubated after failing BiPaP and imaging showing almost complete left lung collapse. Pt had a bronchoscopy revealing a large amount of thick mucoid secretions removed for left lung and critical care has placed consult to for tracheostomy placement. Our service has been consulted to evaluate pt for PEG placement. Pt currently on Propofol for sedation, however opens eyes to verbal commands. Currently not on any pressors, BP is stable. Unable to obtain further information at this time. (Mariela Carrillo) PFSH Past Medical History morbid obesity, asthma, HTN, DM, dyslipidemia, GERD, a-fib, and CKD Past Surgical History JJ stent placement by urology Hiatal hernia surgery Appendectomy Percutaneous tracheostomy, since decannulated (Mariela Carrillo) Coded Allergies: penicillin G (Unverified Allergy, Severe, 05/29/17) Review of Systems Unable to obtain (Mariela Carrillo) GI Exam Vitals I&O Vital Signs Date Time Temp Pulse Resp B/P (MAP) Pulse Ox O2 Delivery O2 Flow Rate FiO2 01/08/18 07:59 100 40 01/08/18 06:00 84 01/08/18 04:18 100 40 01/08/18 04:00 40 01/08/18 04:00 80 01/08/18 04:00 97.5 88 16 164/74 (104) 100 01/08/18 02:00 89 01/08/18 00:55 100 40 01/08/18 00:00 89 01/08/18 00:00 40 01/08/18 00:00 97.1 89 16 150/81 (104) 100 01/07/18 22:05 100 40 01/07/18 22:00 86 01/07/18 20:51 100 40 01/07/18 20:00 40 01/07/18 20:00 97.0 86 13 133/73 (93) 100 01/07/18 20:00 86 01/07/18 18:00 105 01/07/18 17:48 98.2 97 15 112/77 (89) 100 01/07/18 17:48 98.2 97 15 100 01/07/18 17:46 98.0 98 15 124/77 100 01/07/18 17:00 103 15 112/77 (89) 100 01/07/18 16:53 100 40 01/07/18 16:00 98.3 93 13 121/69 (86) 100 01/07/18 16:00 40 01/07/18 16:00 93 01/07/18 15:03 97 13 122/74 (90) 100 01/07/18 14:00 99 13 118/65 (82) 100 01/07/18 14:00 99 01/07/18 13:00 95 13 117/75 (89) 99 01/07/18 12:00 98.1 97 14 110/75 (87) 100 01/07/18 12:00 97 01/07/18 12:00 40 01/07/18 11:57 100 40 01/07/18 11:00 90 13 102/74 (83) 100 01/07/18 10:00 106 17 106/69 (81) 100 01/07/18 10:00 106 I/O 01/07/18 01/07/18 01/07/18 01/08/18 01/08/18 01/08/18 07:00 15:00 23:00 07:00 15:00 23:00 Intake Total 1130 ml 2057 ml Output Total 550 ml 625 ml Balance 580 ml 1432 ml Intake Oral 0 ml IV Total 642 ml 1036 ml Tube Feeding 428 ml 441 ml Packed Cells 400 ml Blood Product IV Normal Saline Flush 60 ml Other 60 ml 120 ml Output Urine Total 550 ml 625 ml # Bowel Movements 2 1 Imaging Last Impressions Chest X-Ray 01/07/18 0000 Signed Impressions: Service Date/Time: Sunday, January 07, 2018 06:51 - CONCLUSION: 1. Worsening opacification of the left chest with volume loss likely secondary to worsening atelectasis. 2. Cardiomegaly. 3. Hazy density at the mid and lower right lung likely related to underlying edema and mild effusion. Perry Frye MD Chest CT 12/27/17 0000 Signed Impressions: Service Date/Time: December 10:29 - CONCLUSION: 1. Basilar atelectasis and small pleural effusions, increased from November 26. Mild perihilar groundglass opacity present most characteristic of minimal pulmonary edema. 2. Support apparatus as above. Moderate coronary calcifications. Sachin Gonzalez MD Abdomen/Pelvis CT 12/20/17 0000 Signed Impressions: Service Date/Time: December 21:20 - CONCLUSION: Stable appearance to the CT abdomen/pelvis were compared to 11/26/17. Right double-J stent in place, multiple gallstones, left renal mass, left lateral ventral hernia. Dorian Vasquez MD Upper Extremity Ultrasound 12/13/17 0000 Signed Impressions: Service Date/Time: December 13:43 - CONCLUSION: 1. No deep venous thrombosis in the left upper extremity. 2. Superficial thrombosis of the right cephalic vein. El Nuñez MD Lower Extremity Ultrasound 12/13/17 0000 Signed Impressions: Service Date/Time: December 14:26 - CONCLUSION: Normal examination. Domingo Calderon MD Head CT 12/13/17 0000 Signed Impressions: Service Date/Time: December 13:30 - CONCLUSION: Normal examination. Domingo Calderon MD Laboratory Test 01/07/18 12:00 01/07/18 19:10 01/08/18 05:56 Blood Urea Nitrogen 62 MG/DL 60 MG/DL 62 MG/DL Creatinine 2.81 MG/DL 2.87 MG/DL 2.70 MG/DL Random Glucose 98 MG/DL 122 MG/DL 125 MG/DL Albumin 3.8 GM/DL 3.4 GM/DL 3.7 GM/DL Calcium Level 8.5 MG/DL 8.0 MG/DL 8.3 MG/DL Phosphorus Level 4.8 MG/DL Sodium Level 143 MEQ/L 144 MEQ/L 144 MEQ/L Potassium Level 3.3 MEQ/L 4.4 MEQ/L 3.8 MEQ/L Chloride Level 107 MEQ/L 109 MEQ/L 108 MEQ/L Carbon Dioxide Level 21.5 MEQ/L 17.6 MEQ/L 20.7 MEQ/L Anion Gap 15 MEQ/L 17 MEQ/L 15 MEQ/L Estimat Glomerular Filtration Rate 17 ML/MIN 16 ML/MIN 18 ML/MIN Total Protein 5.5 GM/DL 6.0 GM/DL Alkaline Phosphatase 69 U/L 77 U/L Aspartate Amino Transf (AST/SGOT) 29 U/L 16 U/L Alanine Aminotransferase (ALT/SGPT) 22 U/L 25 U/L Total Bilirubin 0.7 MG/DL 0.4 MG/DL White Blood Count 10.5 TH/MM3 Red Blood Count 2.71 MIL/MM3 Hemoglobin 8.2 GM/DL Hematocrit 24.6 % Mean Corpuscular Volume 90.9 FL Mean Corpuscular Hemoglobin 30.2 PG Mean Corpuscular Hemoglobin Concent 33.2 % Red Cell Distribution Width 23.2 % Platelet Count 84 TH/MM3 Mean Platelet Volume 10.1 FL Neutrophils (%) (Auto) 92.0 % Lymphocytes (%) (Auto) 2.6 % Monocytes (%) (Auto) 4.3 % Eosinophils (%) (Auto) 0.6 % Basophils (%) (Auto) 0.5 % Neutrophils # (Auto) 9.7 TH/MM3 Lymphocytes # (Auto) 0.3 TH/MM3 Monocytes # (Auto) 0.5 TH/MM3 Eosinophils # (Auto) 0.1 TH/MM3 Basophils # (Auto) 0.0 TH/MM3 CBC Comment AUTO DIFF Differential Comment AUTO DIFF CONFIRMED Platelet Estimate LOW Platelet Morphology Comment NORMAL Ovalocytes 1+ Random Vancomycin Level 20.3 COMMENT Date/Time Source Procedure Growth Status 01/07/18 12:00 Blood Peripheral Aerobic Blood Culture Pending Received 01/07/18 12:00 Blood Peripheral Anaerobic Blood Culture Pending Received 01/05/18 12:45 Stool Stool Stool Occult Blood (NATALIE) - Final HEMOCCULT NEGATIVE Complete 01/03/18 18:23 Sputum Expectorated Sputum Gram Stain - Final Complete 01/03/18 18:23 Sputum Expectorated Sputum Sputum Culture - Final LIGHT GROWTH NORMAL RESPIRATORY BERNA Complete 12/21/17 00:00 Urine Clean Catch Urine Culture - Final 50-100,000 CFU/ML MIXED BERNA... Complete Physical Examination HEENT: Normocephalic; atraumatic CHEST: Respirations synchronized with vent, mechanically ventilated via ETT CARDIAC: Irregularly irregular ABDOMEN: Morbidly obese, soft, bowel sounds active. OG to TF Nepro @ 45mL/hr EXTREMITIES: Extremity edema SKIN: Normal; no rash; no jaundice. CARDIAC REHAB NURSE: Sedated, opens eyes to verbal stimuli (Mariela Carrillo) Assessment and Plan Plan Assessment: - Consult for PEG placement- currently receiving TF through [facility]- Nepro at 45 mL/ hr - Acute hypercapnic resp failure- failed BiPaP- imaging revealed almost complete left lung collapse S/P bronchoscopy- GS consulted for tracheostomy placement. - Hypotensive- previously on Ion, not currently on any pressors, BP stable - Morbid obesity, asthma, HTN, DM, dyslipidemia, GERD, a-fib, and CKD per attending Plan: EGD with PEG tomorrow Obtain consent Hold TF after MN Ceftazidime for abx coverage Dietary recommendations appreciated- Vital high protein at 55 mL/hr Further recommendations based on clinical course Pt has been seen and examined by myself and Dr. Pascal and this note is written on his behalf (Mariela Carrillo) Physician Comments Patient seen and examined Agree with above Continue with current supportive care Monitor labs Plan for PEG tomorrow (Wayne Pascal MD) Mariela Carrillo Jan 08, 2018 09:42 Wayne Pascal MD Jan 08, 2018 20:37
--- NOTE | 2018-01-08 09:52 | HHI.NPPN ---
Subjective Complaints: Shortness of Breath Renal Failure: Acute Interval History Remains intubated. Blood pressure is stable, no longer on pressors. Persistent edema may be improving. Creatinine is slightly better today. (Suad Lucas) Review of Systems General General Remarks unable to obtain (Suad Lucas) Cardiovascular Cardiac: Edema (Suad Lucas) Objective Data Data Vital Signs Date Time Temp Pulse Resp B/P (MAP) Pulse Ox O2 Delivery O2 Flow Rate FiO2 01/08/18 07:59 100 40 01/08/18 06:00 84 01/08/18 04:18 100 40 01/08/18 04:00 40 01/08/18 04:00 80 01/08/18 04:00 97.5 88 16 164/74 (104) 100 01/08/18 02:00 89 01/08/18 00:55 100 40 01/08/18 00:00 89 01/08/18 00:00 40 01/08/18 00:00 97.1 89 16 150/81 (104) 100 01/07/18 22:05 100 40 01/07/18 22:00 86 01/07/18 20:51 100 40 01/07/18 20:00 40 01/07/18 20:00 97.0 86 13 133/73 (93) 100 01/07/18 20:00 86 01/07/18 18:00 105 01/07/18 17:48 98.2 97 15 112/77 (89) 100 01/07/18 17:48 98.2 97 15 100 01/07/18 17:46 98.0 98 15 124/77 100 01/07/18 17:00 103 15 112/77 (89) 100 01/07/18 16:53 100 40 01/07/18 16:00 98.3 93 13 121/69 (86) 100 01/07/18 16:00 40 01/07/18 16:00 93 01/07/18 15:03 97 13 122/74 (90) 100 01/07/18 14:00 99 13 118/65 (82) 100 01/07/18 14:00 99 01/07/18 13:00 95 13 117/75 (89) 99 01/07/18 12:00 98.1 97 14 110/75 (87) 100 01/07/18 12:00 97 01/07/18 12:00 40 01/07/18 11:57 100 40 01/07/18 11:00 90 13 102/74 (83) 100 01/07/18 10:00 106 17 106/69 (81) 100 01/07/18 10:00 106 (Suad Lucas) -: 01/08/18 0556 01/08/18 0556 Microbiology 01/07/18 Aerobic Blood Culture, Received Pending 01/07/18 Anaerobic Blood Culture, Received Pending 01/07/18 Aerobic Blood Culture, Received Pending 01/07/18 Anaerobic Blood Culture, Received Pending Imaging Last 72 hours Impressions Chest X-Ray 01/07/18 0000 Signed Impressions: Service Date/Time: Sunday, January 07, 2018 06:51 - CONCLUSION: 1. Worsening opacification of the left chest with volume loss likely secondary to worsening atelectasis. 2. Cardiomegaly. 3. Hazy density at the mid and lower right lung likely related to underlying edema and mild effusion. Perry Frye MD Tubes & Lines: Solitario Drip Comment propofol (Suad Lucas) Physical Exam General Appearance: Well Developed, No Acute Distress, Comfortable, Sleeping, Obese (Suad Lucas) Throat Throat Exam: Oral Mucosa Alpine & Moist (Suad Lucas) Pulmonary Resp Exam: Clear Bilaterally, Breath Sounds Equal, No Distress, Rhonchi, Decreased Bases, Diminished Breath Sounds Resp Remarks minimal air movement on left (Suad Lucas) Cardiology CV Exam: Good Perfusion, Irregular, Tachycardia (Suad Lucas) Gastrointestinal/Abdomen GI Exam: Soft, Non-Tender, Bowel Sounds Present GI Remarks super morbidly obese (Suad Lucas) Musculoskeletal MS Exam: Joints Intact, Normal Tone, Unable to Ambulate (Suad Lucas) Integumentary Skin Exam: Clear, Warm, Dry, Intact (Suad Lucas) Extremeties Extremities Exam: Pedal Pulses Palpable, Moderate Edema, Dependent Edema (Suad Lucas) Neurologic Neuro Exam: Awake, Moving All Extremities, Unresponsive, Sedated (Suad Lucas) Psychiatric Psych Exam: Appropriate Responses (Suad Lucas) VTE Prophylaxis Device: SCDs (Suad Lucas) Assessment/Plan Discussed Condition With: Patient Assessment Summary: FREDDY/Acute Renal Failure, Fluid/Volume Overload Problem List: (1) FREDDY (acute kidney injury) ICD Codes: N17.9 - Acute kidney failure, unspecified Plan: Her best creatinine at discharge was 1.2 FREDDY likely due to ATN secondary to hypoperfusion injury, also due to sepsis with UTI. Creatinine slightly improved Avoid hypotension, she has been off pressors for days On Lasix 40 mg IV TID. Change albumin to 100 ml mixture, had been on 500 ml BID which is adding to her fluid status. Follow urine output Repeat labs in AM (2) Respiratory failure ICD Codes: J96.90 - Respiratory failure, unspecified, unspecified whether with hypoxia or hypercapnia Plan: s/p intubation, s/p 2nd bronchoscopy with suctioning/bronchial washing first bronchoscopy with multiple mucous plugs identified and suctioned. Also has tracheomalacia and bronchomalacia most likely will need tracheostomy (3) UTI (urinary tract infection) ICD Codes: N39.0 - Urinary tract infection, site not specified Plan: ID is following. On Avycaz, stop date 01/09. Ordered IV Vancomycin Has MDRO Klebsiella Sp. Contact precautions (4) Pneumonia ICD Codes: J18.9 - Pneumonia, unspecified organism Status: Acute Plan: See above. ID is following. On IV Avycaz adn now IV Vanco Blood cultures show O[place] SPP (5) Anemia ICD Codes: D64.9 - Anemia, unspecified Plan: Given one unit 01/07, Hb improved No evidence of iron deficiency Monitor hemoglobin (6) C. difficile colitis ICD Codes: A04.72 - Enterocolitis due to Clostridium difficile, not specified as recurrent Plan: Tested Nov 22, has been on treatment since then. Consider stopping and monitoring off PO vancomycin (currently taper) Contact precautions. (7) Afib ICD Codes: I48.91 - Unspecified atrial fibrillation Status: Chronic Plan: tachycardic today On PO Cardizem and PO metoprolol (hold PRN hypotension) (8) Hypernatremia ICD Codes: E87.0 - Hyperosmolality and hypernatremia Plan: Improved (Suad Lucas) Plan patient was seen and examined. Stop Albumin. Edema may be better. Renal function is about the same. Urine output appears to have decreased. Prognosis is guarded to poor. (Mohinder Lopez MD) Problem Qualifiers (1) Afib: Qualified Codes: I48.2 - Chronic atrial fibrillation Suad Lucas Jan 08, 2018 09:52 Mohinder Lopez MD Jan 08, 2018 15:33
--- NOTE | 2018-01-08 12:43 | HHI.PR ---
Subjective Remarks On Vent support and on FIO2 35 %. Awake and responds well. Has Complete whiteout of left lung again Urine output was low . Will Need Trach .and PEG tube. Needs to be on her Right side mostly. Objective Vital Signs Date Time Temp Pulse Resp B/P (MAP) Pulse Ox O2 Delivery O2 Flow Rate FiO2 01/08/18 12:00 99 40 01/08/18 10:00 93 01/08/18 08:00 88 01/08/18 08:00 40 01/08/18 08:00 97.9 99 16 164/91 (115) 100 01/08/18 07:59 100 40 01/08/18 06:00 84 01/08/18 04:18 100 40 01/08/18 04:00 40 01/08/18 04:00 80 01/08/18 04:00 97.5 88 16 164/74 (104) 100 01/08/18 02:00 89 01/08/18 00:55 100 40 01/08/18 00:00 89 01/08/18 00:00 40 01/08/18 00:00 97.1 89 16 150/81 (104) 100 01/07/18 22:05 100 40 01/07/18 22:00 86 01/07/18 20:51 100 40 01/07/18 20:00 40 01/07/18 20:00 97.0 86 13 133/73 (93) 100 01/07/18 20:00 86 01/07/18 18:00 105 01/07/18 17:48 98.2 97 15 112/77 (89) 100 01/07/18 17:48 98.2 97 15 100 01/07/18 17:46 98.0 98 15 124/77 100 01/07/18 17:00 103 15 112/77 (89) 100 01/07/18 16:53 100 40 01/07/18 16:00 98.3 93 13 121/69 (86) 100 01/07/18 16:00 40 01/07/18 16:00 93 01/07/18 15:03 97 13 122/74 (90) 100 01/07/18 14:00 99 13 118/65 (82) 100 01/07/18 14:00 99 01/07/18 13:00 95 13 117/75 (89) 99 I/O 01/07/18 01/07/18 01/07/18 01/08/18 01/08/18 01/08/18 07:00 15:00 23:00 07:00 15:00 23:00 Intake Total 1130 ml 2057 ml Output Total 550 ml 625 ml Balance 580 ml 1432 ml Intake Oral 0 ml IV Total 642 ml 1036 ml Tube Feeding 428 ml 441 ml Packed Cells 400 ml Blood Product IV Normal Saline Flush 60 ml Other 60 ml 120 ml Output Urine Total 550 ml 625 ml # Bowel Movements 2 1 Result Diagram: 01/08/18 0556 01/08/18 0556 Objective Remarks GENERAL: This is a Obese elderly W/F patient, Awake and on Vent support CARDIOVASCULAR: Regular rate and rhythm without murmurs, gallops, or rubs. RESPIRATORY: Diffuse expiratory wheezes, diminished breath sounds left chest .Occ Crackles at bases . GASTROINTESTINAL: Abdomen soft, non-tender,nondistended. Normal active bowel sounds MUSCULOSKELETAL: Extremities without clubbing, cyanosis,but has 1 + edema. NEURO: awake .1 + Reflexes. Assessment and Plan Assessment and Plan (1) Chronic hypercapnic respiratory failure Diagnosis: Principal (2) Hypoglycemia Diagnosis: Principal (3) BMI 50.0-59.9, adult Diagnosis: Principal (4) Afib Diagnosis: Secondary (5) Dyslipidemia Diagnosis: Secondary (6) Peripheral neuropathy Diagnosis: Secondary (7) Diabetes mellitus Diagnosis: Principal (8) Essential hypertension Diagnosis: Principal (9) Hiatal hernia Diagnosis: Secondary (10) Gastroesophageal reflux disease Diagnosis: Secondary (11) Chronic kidney disease (CKD) stage G3a/A3, moderately decreased glomerular filtration rate (GFR) between 45-59 mL/min/1.73 square meter and albuminuria creatinine ratio greater than 300 mg/g Diagnosis: Secondary (12) Left Lung atelectasis. Plan : 1 Wean FIO 2 and keep sat >92 2. Continue antibiotics.per ID 3 PT evaluation 4. Duonebs qid. 5. Keep mostly on right side 6. Bronchoscopy when trach placed in am 7. Continue steroids 8. PEG tube with Feeds in am Francoise Poon MD Jan 08, 2018 12:43
--- NOTE | 2018-01-08 14:43 | HHI.CCPN ---
Subjective Remarks/Hospital Course This is a 67-year-old female. Date of admission 12/13/2017. Past medical history includes elevated BMI, chronic asthma on chronic oxygen, atrial fibrillation/rate controlled, hypertension dyslipidemia. Today, patient presents to [facility] emergency department after [facility]. She was just discharged from the hospital 12/10/2017 from [facility]. She is morbidly obese with multiple severe chronic illnesses and was both in respiratory distress and decreased responsiveness at the same time. She was noted to be hypoxic with saturations in the e 80s with nasal cannula. Was brought in on BiPAP. Accu-Chek was in the 30s when paramedics found her. Initial GCS was reported as 3. She received some D10 through a right arm PICC line but upon arrival staff felt that the PICC line was not working properly. Patient cannot provide any history or review of systems. She arrives critically ill Patient received D50 and a central line in the right internal jugular was placed by ED physician as no significant access was available. Chest x-ray revealed no acute cardiopulmonary findings. After being placed on BiPAP and receiving glucose patient's mentation is much improved and likely can be removed in the ICU. Less confused when evaluated in the ED. UA is positive. Previous history of Pseudomonas sensitive to aztreonam 12/14: Currently resting in bed in no acute distress on 3 L nasal cannula. Overnight on BiPAP/Venturi mask currently on 3 L nasal cannula. Difficult to arouse but once arousable does follow commands in all 4 extremities but weakly. Blood sugar 135. ABG currently pending 12/15: Afebrile. Resting in bed on nasal cannula. Arousable and following commands. Ill-definition due to hypo-tension. I will place arterial line secondary to body habitus. She does not appear septic. She is more awake and alert and attentive today as compared to yesterday. 12/16: Alert and oriented 3, responding to questions appropriately. Arterial line inability to play secondary to body habitus. Patient remained on phenylephrine during the night but now map remains less than 60 will resume phenylephrine infusion, and initiate Midodrine. 12/17: Hemodynamically stable. Phenylephrine infusion off since last night. MAP 80's. Patient alert and oriented, tolerating diet/breakfast. 12/18: Late entry note. Hemodynamically stable. Decrease FiO2 requirements currently on 2 L nasal cannula O2 saturation 97-98 %. RECONSULT 12/19: Patient became hemodynamically unstable this afternoon requiring reinitiation of phenylephrine infusion currently at 70 mcgs/minute. 12/20: Patient became somnolent last evening noted respiratory acidosis around 2 AM. Patient placed back on BiPAP. ID has been consulted for MDR Klebsiella. Patient awake and alert this afternoon, and denies pain. 12/21: Respiratory status much improved, and to remain on BiPAP at night while sleeping. ABGs improved. Patient hemodynamically stable no vasopressor requirements at this time. IV fluids discontinued. Patient tolerating a diet. 12/22: Patient remains a respiratory acidosis, slightly more lethargic today. Patient placed on BiPAP with exception of meals today. Repeat ABG pending this afternoon 12/23: ABG's and neuro status unchanged. Patient remains on BiPAP with exception of meals. Repeat ABG pending this afternoon. Ammonia level ordered. 12/24 Patient is on BIPAP 15/ with 40% . In Afib with RVR 12/25 No events overnight. Remains on BIPAP. Started on Lasix drip per renal 20mg /hr 12/26: Patient remains on BiPAP lethargic. Air entry is diminished on the left side. Chest x-ray shows complete whiteout on the left side with mediastinal shift to the left indicating mucus plugging and left lung collapse. Will proceed with emergency intubation and bronchoscopy (I discussed with Dr. Baca -he will do bronchoscopy at 11:30 AM today) 12/27: Intubated yesterday for severe left lung atelectasis. Underwent bronchoscopy by Dr. Baca. Bronchoscopy showed tracheomalacia and bronchomalacia involving right mainstem bronchi, left mainstem and left upper lobe bronchi. Significant thick mucoid secretions in right upper lobe bronchi, left upper bronchus and also left lower lobe. Moderate endobronchitis. Chest x -ray shows moderate improvement in left upper lobe but persistent dense consolidation middle and lower lung zones. Check CT of the chest stat today 12/28: Afebrile. FiO2 at 30% awake alert and awake. Plan extubation today passes parameters.. 12/29: Afebrile. Extubated yesterday without complications to BiPAP currently at 12/5 at 35%. Tolerated taking pills yesterday. Somewhat lethargic this a.m. but this appears to be her baseline 12/30: Afebrile. Currently on room air. Tolerating diet. Remove central line today if furosemide drip changed to 40 mg IV [address] Archer. 12/31 Patient is on 3L oxygen. Awake, alert. Afebrile. Off Lasix drip. 01/01 No events overnight. On 3L oxygen. Off BIPAP. Afebrile. 321: Patient has diminished breath sounds left lung, and the left lung is is rc out on CXR with midline shift indicating complete atelectasis. I discussed with her need for bronchoscopy following intubation. Patient is willing for intubation and bronchoscopy. She does not want trach IF she can be extubated, if not extubated in 4-5 days patient is willing to get trach. I gave her the option for palliative care and comfort measures which patient refused. Discussed with Dr. Michelle who is covering fro Dr. Baca 01/03: Patient was intubated yesterday for almost complete left lung collapse. Had bronchoscopy and large amount of thick mucoid secretions removed from left upper and left lower lobe bronchi. Patient has severe bronchomalacia and bronchial narrowing involving left upper and lower lobe bronchi. Currently using large tidal volumes and high PEEP in an attempt to open up the lung. Patient may need permanent trach. Requiring 40 mcg/min of Ion-Synephrine 01/04: Patient remains intubated sedated but wakes up easily. Chest x-ray today shows improved aeration of the left upper and middle lung west, dense consolidation persists left lower lobe. Start weaning PEEP to 10, reduce tidal volumes to 550-600. Initiate vent weaning trials in 24 hours 01/05: still intubated and sedated. peep 8. off pathway. Subjective 01/06: failing weaning attempts. patient had requested 1 additional weaning attempt prior to tracheostomy, but I do not see this as a realistic possibility. 01/07: Chest x-ray today shows complete opacification of the left lung field again. An entry diminished on the left side on exam. Unable to wean to extubate. General surgery consulted for watery discussed with Dr. Coley. Discussed with ID Dr. Cartagena re: [place] bacteremia. Repeat cultures, completed IV vanc before 01/08: Remains intubated sedated. Plan is for OR trach tomorrow followed by bronchoscopy after trach placement by Dr. Baca. Hemoglobin 8.2 unit of PRBC yesterday Objective Vital Signs Date Time Temp Pulse Resp B/P (MAP) Pulse Ox O2 Delivery O2 Flow Rate FiO2 01/08/18 14:00 88 01/08/18 12:00 99 40 01/08/18 12:00 98.3 16 137/58 (84) Result Diagram: 01/08/18 0556 01/08/18 0556 Imaging Last Impressions Chest X-Ray 12/29/17 0600 Signed Impressions: Service Date/Time: Friday, December 29, 2017 03:16 - CONCLUSION: 1. Improving aeration in the right base with persistent left basilar consolidation/ effusion. Stable cardiomegaly. 2. Interval removal of the endotracheal and nasogastric tubes. Jakob Plunkett MD Chest CT 12/27/17 0000 Signed Impressions: Service Date/Time: December 10:29 - CONCLUSION: 1. Basilar atelectasis and small pleural effusions, increased from November 26. Mild perihilar groundglass opacity present most characteristic of minimal pulmonary edema. 2. Support apparatus as above. Moderate coronary calcifications. Sachin Gonzalez MD Abdomen/Pelvis CT 12/20/17 0000 Signed Impressions: Service Date/Time: December 21:20 - CONCLUSION: Stable appearance to the CT abdomen/pelvis were compared to 11/26/17. Right double-J stent in place, multiple gallstones, left renal mass, left lateral ventral hernia. Dorian Vasquez MD Upper Extremity Ultrasound 12/13/17 0000 Signed Impressions: Service Date/Time: December 13:43 - CONCLUSION: 1. No deep venous thrombosis in the left upper extremity. 2. Superficial thrombosis of the right cephalic vein. El Nuñez MD Lower Extremity Ultrasound 12/13/17 0000 Signed Impressions: Service Date/Time: December 14:26 - CONCLUSION: Normal examination. Domingo Calderon MD Head CT 12/13/17 0000 Signed Impressions: Service Date/Time: December 13:30 - CONCLUSION: Normal examination. Domingo Calderon MD Objective Remarks GENERAL: 67-year-old female lying in bed, sedated SKIN: Warm and dry. Lower extremity venous stasis changes HEAD: Atraumatic. Normocephalic. EYES: Pupils equal and round about 3 mm bilaterally and reactive. ENT: No nasal bleeding or discharge. Orotracheally intubated NECK: Trachea midline. No JVD. CARDIOVASCULAR: IRR. Distant heart tones. RESPIRATORY: Air entry significantly diminished left lung west GASTROINTESTINAL: Abdomen soft, obese, nontender. MUSCULOSKELETAL: Extremities with 1+ bilateral upper and lower extremity edema NEUROLOGICAL: Wakes up easily while on sedation. Moves extremities follows commands A/P Assessment and Plan Neuro/Psych: Metabolic encephalopathy -improved Chronic benzodiazepine use Depression disorder NOS Diabetic neuropathy Chronic pain syndrome with chronic narcotic use Propofol for sedation, daily sedation vacation Continue hydrocodone/acetaminophen 5/325 1 tablet every 6 hours as needed pain Continue sertraline 100 mg p.o. daily for depression, pregabalin 75 mg p.o. daily for peripheral neuropathy CT brain 12/13 revealed no acute intracranial findings Acetaminophen 650 mg p.o. every 6 hours as needed fever Alprazolam 1 mg twice daily as needed anxiety-hold while intubated CV: Atrial fibrillation with RVR, now rate controlled Hypertension, now hypotensive Fluid overload Holding Lopressor and Cardizem for borderline low BP. Monitor HR and BP keep MAP>65mmHg 2D echocardiogram 12/02 - EF 50-55%. The left atrial size is mildly dilated. The right atrial size is moderately dilated. Trace TR Xarelto on hold due to worsening renal failure. IV heparin ordered but on hold due to anemia and planned trach in a.m. Resp: Acute hypoxic, hypercapnic respiratory failure Recurrent left lung collapse/mucus plugging Bronchomalacia, with left airway narrowing and collapse APOLONIA/OHS History recurrent MRSA pneumonia Status post intubation and bronchoscopy 12/26/2017 and extubated 12/28, bronchoscopy showed thick mucoid secretions in left upper lobe left lower lobe and right upper lobe Significant tracheomalacia and bronchomalacia involving the right and left main stem bronchi Now with recurrent collapse of the left lung. Status post intubation and bronchoscopy 01/02/2018, similar findings as above CXR 01/07 showing near complete opacification of the left lung west Proceed with tracheostomy discussed with Dr. Coley-deann for Sunday01/09/18 Patient requested to be weaned one more time prior to proceeding with tracheostomy, but unable to wean due to recurrent collapse Albuterol/ipratropium aerosols every 4 hours with albuterol aerosols every 2 hours as needed dyspnea. Mucomyst Continue budesonide 0.5 mg/2 mL 1 inhalation s every 12 hours Continue Prednisone 20mg BID Dr. Poon pulmonary following. He is planning bronchoscopy after trach tomorrow GI: BMI greater than 40 Gastroesophageal reflux disease Hypoalbuminemia Tube feeds with Nepro. Famotidine for GI prophylaxis. Patient is on famotidine 20 mg p.o. daily at home. NPO after midnight Docusate sodium/senna 1 tablet twice daily for bowel regimen. Patient is on senna 8.6 mg twice daily at home Having regular bowel movement. Continue ondansetron 4 mg every 6 hours as needed nausea Renal//FEN: Acute on chronic kidney disease J stent placement Monitor renal function, I/O's, avoid nephrotoxins Solitario catheter to maintain patency with recent pyelonephritis/GJ placement. On Lasix 40mg TID, Renal is following, Cr: 2.7 Outpatient J stent removal should be scheduled by urology that was placed during last hospitalization 12/02 12/20 CT abd/pelvis: No hydronephrosis Continue tamsulosin 0.4 mg daily Endo: Diabetes mellitus Acute hypoglycemia-resolved Sliding scale insulin with Novolin R with Accu-Cheks to maintain euglycemia every 6 hours low regimen Heme: Leukocytosis Normocytic anemia Chronic Rivaroxaban use Right cephalic vein superficial thrombus Monitor CBC Xarelto on hold due to worsening renal failure. IV heparin ordered but on hold due to anemia and planned trach in a.m. ID: Urinary tract infection/MDR Klebsiella History of MRSA History of C. difficile Blood cx 12/20 [place] sp Currently on PO vancomycin , ceftazidime/avibactam. IV Vanc per ID repeat cx for [place] bacteremia Monitor for signs of infections (Fever, WBC) Pertinent cultures Urine Legionella pneumococcal antigens negative Urine culture 12/13 Klebsiella ESBL positive Blood culture 12/20: O[place] SPP Access -Peripheral IV's Prophylaxis -GI -famotidine -DVT -Xarelto on hold due to worsening renal failure. IV heparin ordered but on hold due to anemia and planned trach in a.m. OVERALL IMPRESSION: deconditioned. morbidly obese. multiple failed attempts at weaning. will require tracheostomy and LTAC level care. D/w Dr. rikki montero on Sunday01/09/18 Level 2 Yoandy Amador MD Jan 08, 2018 14:43
[2018-01-08] MEDS ORDERED: VANCOMYCIN INJ 1,250 MG in SODIUM CHLOR 0.9% 250 ML INJ 250 ML IV ONE (17:00)
--- NOTE | 2018-01-08 17:51 | HHI.PR ---
Subjective Subjective Notes Patient depressed Objective Vitals/I&O Vital Signs Date Time Temp Pulse Resp B/P (MAP) Pulse Ox O2 Delivery O2 Flow Rate FiO2 01/08/18 16:00 82 01/08/18 16:00 40 01/08/18 16:00 97.8 17 130/63 (85) 100 Labs Laboratory Tests Test 01/07/18 19:10 01/08/18 05:56 01/08/18 16:33 Blood Urea Nitrogen 60 62 Creatinine 2.87 2.70 Random Glucose 122 125 Total Protein 5.5 6.0 Albumin 3.4 3.7 Calcium Level 8.0 8.3 Alkaline Phosphatase 69 77 Aspartate Amino Transf (AST/SGOT) 29 16 Alanine Aminotransferase (ALT/SGPT) 22 25 Total Bilirubin 0.7 0.4 Sodium Level 144 144 Potassium Level 4.4 3.8 Chloride Level 109 108 Carbon Dioxide Level 17.6 20.7 Anion Gap 17 15 Estimat Glomerular Filtration Rate 16 18 White Blood Count 10.5 Red Blood Count 2.71 Hemoglobin 8.2 Hematocrit 24.6 Mean Corpuscular Volume 90.9 Mean Corpuscular Hemoglobin 30.2 Mean Corpuscular Hemoglobin Concent 33.2 Red Cell Distribution Width 23.2 Platelet Count 84 Mean Platelet Volume 10.1 Neutrophils (%) (Auto) 92.0 Lymphocytes (%) (Auto) 2.6 Monocytes (%) (Auto) 4.3 Eosinophils (%) (Auto) 0.6 Basophils (%) (Auto) 0.5 Neutrophils # (Auto) 9.7 Lymphocytes # (Auto) 0.3 Monocytes # (Auto) 0.5 Eosinophils # (Auto) 0.1 Basophils # (Auto) 0.0 CBC Comment AUTO DIFF Differential Comment AUTO DIFF CONFIRMED Platelet Estimate LOW Platelet Morphology Comment NORMAL Ovalocytes 1+ Random Vancomycin Level 20.3 Date/Time Source Procedure Growth Status 01/07/18 12:00 Blood Peripheral Aerobic Blood Culture - Preliminary NO GROWTH IN 1 DAY Resulted 01/07/18 12:00 Blood Peripheral Anaerobic Blood Culture - Preliminary NO GROWTH IN 1 DAY Resulted 01/05/18 12:45 Stool Stool Stool Occult Blood (NATALIE) - Final HEMOCCULT NEGATIVE Complete 01/03/18 18:23 Sputum Expectorated Sputum Gram Stain - Final Complete 01/03/18 18:23 Sputum Expectorated Sputum Sputum Culture - Final LIGHT GROWTH NORMAL RESPIRATORY BERNA Complete 12/21/17 00:00 Urine Clean Catch Urine Culture - Final 50-100,000 CFU/ML MIXED BERNA... Complete Lungs: Clear Abdomen: Non-distended A/P Assessment and Plan Respiratory failure, multiple extubations with failure Dr. Poon wishes to perform bronchoscopy if possible during procedure; will attempt to coordinate this. Chintan Coley MD Jan 08, 2018 17:51
[2018-01-09] VITALS (20 sets, daily range): BP systolic 104–147; BP diastolic 55–75; PULSE 80–102; RESP 16–20; TEMP 97.4–100.1; O2SAT 100
[2018-01-09] MEDS: PROPOFOL 1000 MG/100 ML INJ 100 ML IV PRN (01:30)
[2018-01-09] MEDS: CHLORHEXIDINE GLUCONATE 2 % 1 PACK (2 CLOTHS) TOP SCH (03:49)
--- NOTE | 2018-01-09 05:29 | RADRPT ---
EXAM DATE/TIME: 01/09/2018 03:35 [place] COMPARISON: CHEST SINGLE AP, January 07, 2018, 6:51. INDICATIONS : Shortness of breath. MEDICAL HISTORY : Hypertension. Diabetes mellitus type II. SURGICAL HISTORY : None. ENCOUNTER: Subsequent ACUITY: 1 month PAIN SCORE: Non-responsive. LOCATION: Bilateral chest FINDINGS: A single view of the chest demonstrates almost complete opacification left hemithorax minimal right b asilar density. Endotracheal tube unchanged. Nasogastric tube with tip in stomach. Osseous structure s are intact. CONCLUSION: 1. Almost complete opacification left hemithorax likely mucous plugging/atelectasis. 2. Minimal right basilar density. El Nuñez MD on January 09, 2018 at 5:27 Board Certified Radiologist. This report was verified electronically.
[2018-01-09] MEDS: ARTIFICIAL TEARS OPTH SOLN 15 ML BTL EACH EYE SCH ×3 (06:00→21:50)
[2018-01-09] MEDS: RESP: BUDESONIDE 0.5 MG/2 ML NEB NEB SCH ×2 (07:40→21:25)
[2018-01-09] MEDS: INSULIN NovoLIN REGULAR SUPPLEMENTAL SCALE SQ SCH ×4 (08:00→21:00)
[2018-01-09 08:59] LABS: AUTOMATED NEUTROPHIL # 9.3 TH/MM3 (1.8-7.7); BASOPHIL % 0.2 % (0.0-2.0); EOSINOPHIL # 0.3 TH/MM3 (0-0.4); EOSINOPHIL % 2.8 % (0.0-4.0); HEMATOCRIT 25.6 % (35.0-46.0); HEMOGLOBIN 8.3 GM/DL (11.6-15.3); LYMPH % 8.3 % (9.0-44.0); LYMPHOCYTE # 0.9 TH/MM3 (1.0-4.8); MEAN CELL VOLUME 90.9 FL (80.0-100.0); MEAN CORPUSCULAR HEMOGLOBIN 29.6 PG (27.0-34.0); MEAN CORPUSCULAR HGB CONC 32.5 % (32.0-36.0); MEAN PLATELET VOLUME 10.1 FL (7.0-11.0); MONO % 5.4 % (0.0-8.0); MONOCYTE # 0.6 TH/MM3 (0-0.9); NEUT % 83.3 % (16.0-70.0); PLATELET COUNT 91 TH/MM3 (150-450); RED BLOOD COUNT 2.82 MIL/MM3 (4.00-5.30); RED CELL DISTRIBUTION WIDTH 22.1 % (11.6-17.2); WHITE BLOOD COUNT 11.2 TH/MM3 (4.0-11.0)
[2018-01-09] MEDS: cefTAZidime/AVIBACTAM INJ 0.94 GM in SODIUM CHLORIDE 0.9% INJ 50 ML IV SCH ×2 (09:00→21:54)
[2018-01-09] MEDS: DOCUSATE SODIUM 50 MG/SENNA 8.6 MG TAB PO SCH ×2 (09:00→21:53)
[2018-01-09] MEDS: SODIUM CHLORIDE 0.9% FLUSH 10 ML FLUSH IV FLUSH SCH ×2 (09:00→21:48)
[2018-01-09 09:03] LABS: INTERNATIONAL NORMALIZED RATIO 1.1 RATIO; PROTHROMBIN TIME - PATIENT 10.8 SEC (9.8-11.6)
[2018-01-09] MEDS: PREGABALIN 75 MG CAP PO SCH ×2 (09:12→12:34)
[2018-01-09] MEDS: MUPIROCIN 2% OINT 1 APPLIC/GM SYR EACH NARE SCH ×2 (09:12→21:00)
[2018-01-09] MEDS: ASCORBIC ACID 500 MG TAB PO SCH ×2 (09:12→21:48)
[2018-01-09] MEDS: TAMSULOSIN HCL 0.4 MG CAP PO SCH (09:13)
[2018-01-09] MEDS: LACTOBACILLUS ACIDOPHILUS TAB PO SCH ×3 (09:13→16:56)
[2018-01-09] MEDS: predniSONE 10 MG TAB PO SCH (09:13)
[2018-01-09] MEDS: METOPROLOL TARTRATE 50 MG TAB PO SCH ×2 (09:13→21:49)
[2018-01-09] MEDS: VANCOMYCIN 25 MG/ML SOLN 100 ML BOTTLE PO SCH ×2 (09:14→21:49)
[2018-01-09] MEDS: FUROSEMIDE 40 MG/4 ML VIAL IV PUSH SCH ×2 (09:14→13:00)
[2018-01-09] MEDS: SERTRALINE HCL 100 MG TAB PO SCH (09:14)
[2018-01-09] MEDS: NYSTATIN 100,000 U/GM PWD 15 GM BTL TOPICAL SCH ×2 (09:15→21:49)
[2018-01-09] MEDS: CHLORHEXIDINE 0.12% (ORAL KIT) 15 ML CUP MT SCH ×2 (09:16→20:48)
[2018-01-09 09:21] LABS: ALBUMIN 3.2 GM/DL (3.4-5.0); AST (GOT) 9 U/L (15-37); BICARBONATE 19.3 MEQ/L (21.0-32.0); BLOOD UREA NITROGEN 70 MG/DL (7-18); CALCIUM 8.5 MG/DL (8.5-10.1); CHLORIDE 110 MEQ/L (98-107); GLOMERULAR FILTRATION RATE 17 ML/MIN (>89); GLUCOSE,RANDOM 76 MG/DL (74-106); SODIUM (NA) 143 MEQ/L (136-145)
[2018-01-09 09:22] LABS: ALT (GPT) 21 U/L (10-53)
[2018-01-09 09:25] LABS: ALKALINE PHOSPHATASE 70 U/L (45-117); RANDOM VANCOMYCIN 31.3 COMMENT; TOTAL BILIRUBIN ADULT 0.5 MG/DL (0.2-1.0); TOTAL PROTEIN 5.5 GM/DL (6.4-8.2)
[2018-01-09 09:31] LABS: BANDS 7 % (0-6); LYMPHOCYTES 9 % (9-44); MONOCYTES 10 % (0-8); MYELOCYTES 1 % (0-0); POLYS (SEG NEUTROPHILS) 72 % (16-70)
[2018-01-09 09:32] LABS: OVALOCYTES 1+ (NORMAL)
--- NOTE | 2018-01-09 10:01 | HHI.NPPN ---
Subjective Complaints: Shortness of Breath Renal Failure: Acute Interval History She is to go to OR for trach/PEG today. Creatinine is worse today. (Suad Lucas) Review of Systems General General Remarks unable to obtain (Suad Lucas) Cardiovascular Cardiac: Edema (Suad Lucas) Objective Data Data Vital Signs Date Time Temp Pulse Resp B/P (MAP) Pulse Ox O2 Delivery O2 Flow Rate FiO2 01/09/18 07:49 40 01/09/18 07:41 100 40 01/09/18 06:00 82 01/09/18 05:10 100 40 01/09/18 04:33 100 40 01/09/18 04:00 40 01/09/18 04:00 83 01/09/18 04:00 97.6 90 16 147/75 (99) 100 01/09/18 02:00 88 01/09/18 00:20 100 40 01/09/18 00:00 40 01/09/18 00:00 80 01/09/18 00:00 97.4 83 17 147/73 (97) 100 01/08/18 22:00 92 01/08/18 20:42 100 40 01/08/18 20:00 40 01/08/18 20:00 87 01/08/18 20:00 97.6 92 16 159/72 (101) 100 01/08/18 18:00 92 01/08/18 16:00 82 01/08/18 16:00 40 01/08/18 16:00 97.8 93 17 130/63 (85) 100 01/08/18 15:32 100 40 01/08/18 14:00 88 01/08/18 12:00 99 40 01/08/18 12:00 98.3 87 16 137/58 (84) 100 01/08/18 12:00 90 01/08/18 12:00 40 01/08/18 10:00 93 (Suad Lucas) -: 01/09/18 0807 01/09/18 0807 Imaging Last 72 hours Impressions Chest X-Ray 01/09/18 0600 Signed Impressions: Service Date/Time: Tuesday, January 09, 2018 03:35 - CONCLUSION: 1. Almost complete opacification left hemithorax likely mucous plugging/atelectasis. 2. Minimal right basilar density. El Nuñez MD Chest X-Ray 01/07/18 0000 Signed Impressions: Service Date/Time: Sunday, January 07, 2018 06:51 - CONCLUSION: 1. Worsening opacification of the left chest with volume loss likely secondary to worsening atelectasis. 2. Cardiomegaly. 3. Hazy density at the mid and lower right lung likely related to underlying edema and mild effusion. Perry Frye MD Tubes & Lines: Solitario Drip Comment propofol (Suad Lucas B. SUBSTATION DESIGN DRAFTSPERSON) Physical Exam General Appearance: Well Developed, No Acute Distress, Comfortable, Sleeping, Obese (Suad Lucas B. SUB[employer]ATION DESIGN DRAFTSPERSON) Throat Throat Exam: Oral Mucosa Peterman & Moist (Suad Lucas B. SUB[employer]ATION DESIGN DRAFTSPERSON) Pulmonary Resp Exam: Clear Bilaterally, Breath Sounds Equal, No Distress, Rhonchi, Decreased Bases, Diminished Breath Sounds Resp Remarks minimal air movement on left (Suad Lucas B. SUBSTATION DESIGN DRAFTSPERSON) Cardiology CV Exam: Good Perfusion, Irregular, Tachycardia (Lewis Lucason B. SUBSTATION DESIGN DRAFTSPERSON) Gastrointestinal/Abdomen GI Exam: Soft, Non-Tender, Bowel Sounds Present GI Remarks super morbidly obese (Suad Lucas B. SUBSTATION DESIGN DRAFTSPERSON) Musculoskeletal MS Exam: Joints Intact, Normal Tone, Unable to Ambulate (Lewis Lucason B. SUBSTATION DESIGN DRAFTSPERSON) Integumentary Skin Exam: Clear, Warm, Dry, Intact (Lewis Lucason B. SUBSTATION DESIGN DRAFTSPERSON) Extremeties Extremities Exam: Pedal Pulses Palpable, Moderate Edema, Dependent Edema (Suad Lucas B. SUBSTATION DESIGN DRAFTSPERSON) Neurologic Neuro Exam: Awake, Moving All Extremities, Unresponsive, Sedated (Suad Lucas B. SUBSTATION DESIGN DRAFTSPERSON) Psychiatric Psych Exam: Appropriate Responses (Suad Lucas B. SUBSTATION DESIGN DRAFTSPERSON) VTE Prophylaxis Device: SCDs (Suad Lucas B. SUB[employer]ATION DESIGN DRAFTSPERSON) Assessment/Plan Discussed Condition With: Patient Assessment Summary: FREDDY/Acute Renal Failure, Fluid/Volume Overload Problem List: (1) FREDDY (acute kidney injury) ICD Codes: N17.9 - Acute kidney failure, unspecified Plan: Her best creatinine at discharge was 1.2 FREDDY likely due to ATN secondary to hypoperfusion injury, also due to sepsis with UTI. Creatinine is worse, but it appears her urine output has improved. Avoid hypotension, she has been off pressors for days On Lasix 40 mg IV TID. Stop albumin Follow urine output Repeat labs in AM (2) Respiratory failure ICD Codes: J96.90 - Respiratory failure, unspecified, unspecified whether with hypoxia or hypercapnia Plan: s/p intubation, s/p 2nd bronchoscopy with suctioning/bronchial washing first bronchoscopy with multiple mucous plugs identified and suctioned. ] Also has tracheomalacia and bronchomalacia due for trach/PEG today. (3) UTI (urinary tract infection) ICD Codes: N39.0 - Urinary tract infection, site not specified Plan: ID is following. On Avycaz, stop date 01/09. Ordered IV Vancomycin Has MDRO Klebsiella Sp. Contact precautions (4) Pneumonia ICD Codes: J18.9 - Pneumonia, unspecified organism Status: Acute Plan: See above. ID is following. On IV Avycaz and now IV Vanco Blood cultures show O[place] SPP (5) Anemia ICD Codes: D64.9 - Anemia, unspecified Plan: Given one unit 01/07, Hb improved No evidence of iron deficiency Monitor hemoglobin (6) C. difficile colitis ICD Codes: A04.72 - Enterocolitis due to Clostridium difficile, not specified as recurrent Plan: Tested Nov 22, has been on treatment since then. Consider stopping and monitoring off PO vancomycin (currently taper) Contact precautions. (7) Afib ICD Codes: I48.91 - Unspecified atrial fibrillation Status: Chronic Plan: rate improved On PO Cardizem and PO metoprolol (hold PRN hypotension) (8) Hypernatremia ICD Codes: E87.0 - Hyperosmolality and hypernatremia Plan: Improved (Suad Lucas) Plan patient was seen and examined. Agree with above assessment and plan. (Mohinder Lopez MD) Problem Qualifiers (1) Afib: Qualified Codes: I48.2 - Chronic atrial fibrillation Suad Lucas Jan 09, 2018 10:01 Mohinder Lopez MD Jan 10, 2018 14:11
[2018-01-09] MEDS ORDERED: PHENYLEPHRINE HCL 10 MG/ML VIAL ONE (11:24)
[2018-01-09] MEDS: PHENYLEPHRINE INJ 40 MG in DEXTROSE 5% IN WATE 500 ML INJ 496 ML IV PRN ×2 (11:30)
[2018-01-09] MEDS ORDERED: LIDOCAINE 1%/EPINEPHrine 1:100,000 SOLN 30 ML VIAL ONE (11:42)
[2018-01-09] MEDS ORDERED: SODIUM CHLORID 0.9% 500 ML INJ 500 ML IV ONE (12:15)
--- NOTE | 2018-01-09 14:09 | HHI.CCPN ---
Subjective Remarks/Hospital Course This is a 67-year-old female. Date of admission 12/13/2017. Past medical history includes elevated BMI, chronic asthma on chronic oxygen, atrial fibrillation/rate controlled, hypertension dyslipidemia. Today, patient presents to [facility] emergency department after being found unresponsive at the detention. She was just discharged from the hospital 12/10/2017 from [facility]. She is morbidly obese with multiple severe chronic illnesses and was both in respiratory distress and decreased responsiveness at the same time. She was noted to be hypoxic with saturations in the e 80s with nasal cannula. Was brought in on BiPAP. Accu-Chek was in the 30s when paramedics found her. Initial GCS was reported as 3. She received some D10 through a right arm PICC line but upon arrival staff felt that the PICC line was not working properly. Patient cannot provide any history or review of systems. She arrives critically ill Patient received D50 and a central line in the right internal jugular was placed by ED physician as no significant access was available. Chest x-ray revealed no acute cardiopulmonary findings. After being placed on BiPAP and receiving glucose patient's mentation is much improved and likely can be removed in the ICU. Less confused when evaluated in the ED. UA is positive. Previous history of Pseudomonas sensitive to aztreonam 12/14: Currently resting in bed in no acute distress on 3 L nasal cannula. Overnight on BiPAP/Venturi mask currently on 3 L nasal cannula. Difficult to arouse but once arousable does follow commands in all 4 extremities but weakly. Blood sugar 135. ABG currently pending 12/15: Afebrile. Resting in bed on nasal cannula. Arousable and following commands. Ill-definition due to hypo-tension. I will place arterial line secondary to body habitus. She does not appear septic. She is more awake and alert and attentive today as compared to yesterday. 12/16: Alert and oriented 3, responding to questions appropriately. Arterial line inability to play secondary to body habitus. Patient remained on phenylephrine during the night but now map remains less than 60 will resume phenylephrine infusion, and initiate Midodrine. 12/17: Hemodynamically stable. Phenylephrine infusion off since last night. MAP 80's. Patient alert and oriented, tolerating diet/breakfast. 12/18: Late entry note. Hemodynamically stable. Decrease FiO2 requirements currently on 2 L nasal cannula O2 saturation 97-98 %. RECONSULT 12/19: Patient became hemodynamically unstable this afternoon requiring reinitiation of phenylephrine infusion currently at 70 mcgs/minute. 12/20: Patient became somnolent last evening noted respiratory acidosis around 2 AM. Patient placed back on BiPAP. ID has been consulted for MDR Klebsiella. Patient awake and alert this afternoon, and denies pain. 12/21: Respiratory status much improved, and to remain on BiPAP at night while sleeping. ABGs improved. Patient hemodynamically stable no vasopressor requirements at this time. IV fluids discontinued. Patient tolerating a diet. 12/22: Patient remains a respiratory acidosis, slightly more lethargic today. Patient placed on BiPAP with exception of meals today. Repeat ABG pending this afternoon 12/23: ABG's and neuro status unchanged. Patient remains on BiPAP with exception of meals. Repeat ABG pending this afternoon. Ammonia level ordered. 12/24 Patient is on BIPAP 15/ with 40% . In Afib with RVR 12/25 No events overnight. Remains on BIPAP. Started on Lasix drip per renal 20mg /hr 12/26: Patient remains on BiPAP lethargic. Air entry is diminished on the left side. Chest x-ray shows complete whiteout on the left side with mediastinal shift to the left indicating mucus plugging and left lung collapse. Will proceed with emergency intubation and bronchoscopy (I discussed with Dr. Baca -he will do bronchoscopy at 11:30 AM today) 12/27: Intubated yesterday for severe left lung atelectasis. Underwent bronchoscopy by Dr. Baca. Bronchoscopy showed tracheomalacia and bronchomalacia involving right mainstem bronchi, left mainstem and left upper lobe bronchi. Significant thick mucoid secretions in right upper lobe bronchi, left upper bronchus and also left lower lobe. Moderate endobronchitis. Chest x -ray shows moderate improvement in left upper lobe but persistent dense consolidation middle and lower lung zones. Check CT of the chest stat today 12/28: Afebrile. FiO2 at 30% awake alert and awake. Plan extubation today passes parameters.. 12/29: Afebrile. Extubated yesterday without complications to BiPAP currently at 12/5 at 35%. Tolerated taking pills yesterday. Somewhat lethargic this a.m. but this appears to be her baseline 12/30: Afebrile. Currently on room air. Tolerating diet. Remove central line today if furosemide drip changed to 40 mg IV [address] Archer. 12/31 Patient is on 3L oxygen. Awake, alert. Afebrile. Off Lasix drip. 01/01 No events overnight. On 3L oxygen. Off BIPAP. Afebrile. 321: Patient has diminished breath sounds left lung, and the left lung is is rc out on CXR with midline shift indicating complete atelectasis. I discussed with her need for bronchoscopy following intubation. Patient is willing for intubation and bronchoscopy. She does not want trach IF she can be extubated, if not extubated in 4-5 days patient is willing to get trach. I gave her the option for palliative care and comfort measures which patient refused. Discussed with Dr. Michelle who is covering fro Dr. Baca 01/03: Patient was intubated yesterday for almost complete left lung collapse. Had bronchoscopy and large amount of thick mucoid secretions removed from left upper and left lower lobe bronchi. Patient has severe bronchomalacia and bronchial narrowing involving left upper and lower lobe bronchi. Currently using large tidal volumes and high PEEP in an attempt to open up the lung. Patient may need permanent trach. Requiring 40 mcg/min of Ion-Synephrine 01/04: Patient remains intubated sedated but wakes up easily. Chest x-ray today shows improved aeration of the left upper and middle lung west, dense consolidation persists left lower lobe. Start weaning PEEP to 10, reduce tidal volumes to 550-600. Initiate vent weaning trials in 24 hours 01/05: still intubated and sedated. peep 8. off pathway. Subjective 01/06: failing weaning attempts. patient had requested 1 additional weaning attempt prior to tracheostomy, but I do not see this as a realistic possibility. 01/07: Chest x-ray today shows complete opacification of the left lung field again. An entry diminished on the left side on exam. Unable to wean to extubate. General surgery consulted for watery discussed with Dr. Coley. Discussed with ID Dr. Cartagena re: [place] bacteremia. Repeat cultures, completed IV vanc before 01/08: Remains intubated sedated. Plan is for OR trach tomorrow followed by bronchoscopy after trach placement by Dr. Baca. Hemoglobin 8.2 unit of PRBC yesterday 01/09: Abruptly dropped BP to 70's, 500 ml fluid bolus given and started on 50 mcg/min of Ion-Synephrine. Due to hypotension planned or trach was canceled by Dr. Coley. Chest x-ray continues to show left-sided atelectasis. Dr. Lutz planning to bronch after trach Objective Vital Signs Date Time Temp Pulse Resp B/P (MAP) Pulse Ox O2 Delivery O2 Flow Rate FiO2 01/09/18 13:17 16 01/09/18 12:00 100.1 91 104/55 (71) 100 01/09/18 11:29 40 Intake and Output 01/09/18 01/09/18 01/10/18 08:00 16:00 00:00 Intake Total 476 ml Output Total 850 ml Balance -374 ml Result Diagram: 01/09/18 0807 01/09/18 0807 Imaging Last Impressions Chest X-Ray 12/29/17 0600 Signed Impressions: Service Date/Time: Friday, December 29, 2017 03:16 - CONCLUSION: 1. Improving aeration in the right base with persistent left basilar consolidation/ effusion. Stable cardiomegaly. 2. Interval removal of the endotracheal and nasogastric tubes. Jakob Plunkett MD Chest CT 12/27/17 0000 Signed Impressions: Service Date/Time: December 10:29 - CONCLUSION: 1. Basilar atelectasis and small pleural effusions, increased from November 26. Mild perihilar groundglass opacity present most characteristic of minimal pulmonary edema. 2. Support apparatus as above. Moderate coronary calcifications. Sachin Gonzalez MD Abdomen/Pelvis CT 12/20/17 0000 Signed Impressions: Service Date/Time: December 21:20 - CONCLUSION: Stable appearance to the CT abdomen/pelvis were compared to 11/26/17. Right double-J stent in place, multiple gallstones, left renal mass, left lateral ventral hernia. Dorian Vasquez MD Upper Extremity Ultrasound 12/13/17 0000 Signed Impressions: Service Date/Time: December 13:43 - CONCLUSION: 1. No deep venous thrombosis in the left upper extremity. 2. Superficial thrombosis of the right cephalic vein. El Nuñez MD Lower Extremity Ultrasound 12/13/17 0000 Signed Impressions: Service Date/Time: December 14:26 - CONCLUSION: Normal examination. Domingo Calderon MD Head CT 12/13/17 0000 Signed Impressions: Service Date/Time: December 13:30 - CONCLUSION: Normal examination. Domingo Calderon MD Objective Remarks GENERAL: 67-year-old female lying in bed, sedated SKIN: Warm and dry. Lower extremity venous stasis changes HEAD: Atraumatic. Normocephalic. EYES: Pupils equal and round about 3 mm bilaterally and reactive. ENT: No nasal bleeding or discharge. Orotracheally intubated NECK: Trachea midline. No JVD. CARDIOVASCULAR: IRR. Distant heart tones. Developed hypotension now on 50 mcg/ min of Ion-Synephrine RESPIRATORY: Air entry significantly diminished left lung west GASTROINTESTINAL: Abdomen soft, obese, nontender. MUSCULOSKELETAL: Extremities with 1+ bilateral upper and lower extremity edema NEUROLOGICAL: Wakes up easily while on sedation. Moves extremities follows commands A/P Assessment and Plan Neuro/Psych: Metabolic encephalopathy -improved Chronic benzodiazepine use Depression disorder NOS Diabetic neuropathy Chronic pain syndrome with chronic narcotic use Propofol for sedation, daily sedation vacation Continue hydrocodone/acetaminophen 5/325 1 tablet every 6 hours as needed pain Continue sertraline 100 mg p.o. daily for depression, pregabalin 75 mg p.o. daily for peripheral neuropathy CT brain 12/13 revealed no acute intracranial findings Acetaminophen 650 mg p.o. every 6 hours as needed fever Alprazolam 1 mg twice daily as needed anxiety-hold while intubated CV: Atrial fibrillation with RVR, now rate controlled Hypertension, now hypotensive Fluid overload Holding Lopressor and Cardizem for borderline low BP. Ion-Synephrine started to maintain map above 65 Monitor HR and BP keep MAP>65mmHg 2D echocardiogram 12/02 - EF 50-55%. The left atrial size is mildly dilated. The right atrial size is moderately dilated. Trace TR Xarelto on hold due to worsening renal failure. IV heparin start today as trach is postponed Resp: Acute hypoxic, hypercapnic respiratory failure Recurrent left lung collapse/mucus plugging Bronchomalacia, with left airway narrowing and collapse APOLONIA/OHS History recurrent MRSA pneumonia Status post intubation and bronchoscopy 12/26/2017 and extubated 12/28, bronchoscopy showed thick mucoid secretions in left upper lobe left lower lobe and right upper lobe Significant tracheomalacia and bronchomalacia involving the right and left main stem bronchi Now with recurrent collapse of the left lung. Status post intubation and bronchoscopy 01/02/2018, similar findings as above CXR 01/07 showing near complete opacification of the left lung west Tracheostomy planned for today postponed due to hypotension, discussed with Dr. Coley Patient requested to be weaned one more time prior to proceeding with tracheostomy, but unable to wean due to recurrent collapse Albuterol/ipratropium aerosols every 4 hours with albuterol aerosols every 2 hours as needed dyspnea. Mucomyst Continue budesonide 0.5 mg/2 mL 1 inhalation s every 12 hours. Continue Prednisone 20mg BID Dr. Poon pulmonary following. He is planning bronchoscopy after trach tomorrow GI: BMI greater than 40 Gastroesophageal reflux disease Hypoalbuminemia Tube feeds with Nepro. Famotidine for GI prophylaxis. Patient is on famotidine 20 mg p.o. daily at home. Docusate sodium/senna 1 tablet twice daily for bowel regimen. Patient is on senna 8.6 mg twice daily at home Having regular bowel movement. Continue ondansetron 4 mg every 6 hours as needed nausea Renal//FEN: Acute on chronic kidney disease J stent placement Monitor renal function, I/O's, avoid nephrotoxins Solitario catheter to maintain patency with recent pyelonephritis/GJ placement. On Lasix 40mg TID, Hold Lasix due to hypotension Outpatient J stent removal should be scheduled by urology that was placed during last hospitalization 12/02 12/20 CT abd/pelvis: No hydronephrosis Continue tamsulosin 0.4 mg daily Endo: Diabetes mellitus Acute hypoglycemia-resolved Sliding scale insulin with Novolin R with Accu-Cheks to maintain euglycemia every 6 hours low regimen Heme: Normocytic anemia Chronic Rivaroxaban use Right cephalic vein superficial thrombus Monitor CBC Xarelto on hold due to worsening renal failure. Resume IV heparin as trach postponed ID: Urinary tract infection/MDR Klebsiella History of MRSA History of C. difficile Blood cx 12/20 Leni avila Currently on PO vancomycin , ceftazidime/avibactam. IV Vanc per ID repeat cx for [place] bacteremia Monitor for signs of infections (Fever, WBC) Pertinent cultures Urine Legionella pneumococcal antigens negative Urine culture 12/13 Klebsiella ESBL positive Blood culture 12/20: OERSKOVIA SPP Access -Peripheral IV's Prophylaxis -GI -famotidine -DVT -Xarelto on hold due to worsening renal failure. IV heparin ordered but on hold due to anemia and planned trach in a.m. IMPRESSION: deconditioned. morbidly obese. multiple failed attempts at weaning. will require tracheostomy and LTAC level care. Or canceled today due to hypotension. Will reschedule with Dr Coley Level 3 Yoandy Amador MD Jan 09, 2018 14:09
[2018-01-09] MEDS: HEPARIN-D5W 25,000 U/250 ML 250 ML IV PRN (14:57)
--- NOTE | 2018-01-09 15:05 | HHI.IDPN ---
Subjective Subjective Remarks Patient is a 67-year-old female, resides in the [facility], brought into the hospital after she was found unresponsive. She had a recent hospitalization where she was diagnosed to have sepsis related to complicated UTI. During that hospitalization she underwent stent placement. She also had C. difficile colitis during that admission. Patient states that she uses a BiPAP machine in the [facility] usually when she is sleeping. She is nonambulatory. Denies any significant cough or congestion. No chest pain. There was no mention of any fever or chills or sweats. When she also came to the hospital this time she was on pressors for hypotension. She improved clinically and her hemodynamics stabilize. However yesterday she went hypotensive again, an infectious disease consultation has been requested to evaluate the patient. ID following for KPC positive UTI, Pneumonia. Patient known to me from prior admissions with prior MDR UTI and Cdiff last admission. Notes reviewed D/W RN On the vent Not SOB Had acute hypotension today, on vasopressin now Trach for today has been cancelled duet o low BP CXR with complete opacification again on L Low grade temps To finish Avycaz 01/09 Started on IV vanco 01/07 for one (+) BC with [place] Vanco level 30 Repeat BC negative so far Has PIV Antibiotics Avycaz - to finish 01/09 PO Vanco - tapering IV Vanco Current Medications Medications (Trade) Dose Ordered Sig/Mirta Route Start Time Stop Time Status Last Admin (NS Flush) 2 ml UNSCH PRN IV FLUSH 12/13/17 13:30 (NS Flush) 2 ml BID IV FLUSH 12/13/17 21:00 01/09/18 09:00 (Zofran Inj) 4 mg Q6H PRN IV PUSH 12/13/17 13:30 01/04/18 05:39 Miscellaneous Information 1 Q361D XX 12/13/17 13:30 12/13/17 13:30 (Chlorhexidine 2% Cloth) Taper DAILY@04 TOP 12/14/17 04:00 12/10/18 03:59 01/09/18 03:49 (Chlorhexidine 2% Cloth) 3 pack UNSCH PRN TOP 12/13/17 13:30 (Zelda-Colace) 1 tab BID PO 12/13/17 21:00 01/09/18 09:00 (Milk Of Magnesia Liq) 30 ml Q12H PRN PO 12/13/17 13:30 (Senokot) 17.2 mg Q12H PRN PO 12/13/17 13:30 (Dulcolax Supp) 10 mg DAILY PRN RECTAL 12/13/17 13:30 (Lactulose Liq) 30 ml DAILY PRN PO 12/13/17 13:30 (Xanax) 1 mg BID PRN PO 12/13/17 13:30 (Pulmicort Respule Neb) 0.5 mg Q12HR NEB NEB 12/13/17 20:00 01/09/18 07:40 (Lyrica) 75 mg DAILY PO 12/14/17 09:00 01/09/18 12:34 (Zoloft) 100 mg DAILY PO 12/14/17 09:00 01/09/18 09:14 (Vitamin C) 500 mg BID PO 12/13/17 21:00 01/09/18 09:12 (Lactinex) 1 tab TID PO 12/13/17 18:00 01/09/18 14:42 (D50w (Vial) Inj) 50 ml UNSCH PRN IV PUSH 12/13/17 13:30 12/19/17 22:25 (Glucagon Inj) 1 mg UNSCH PRN OTHER 12/13/17 13:30 (Pill Splitter) 1 ea UNSCH PRN OTHER 12/13/17 13:30 (Xarelto) 10 mg DAILY PO 12/14/17 09:00 Future Hold 01/04/18 07:59 (Mycostatin Powder) 1 applic Q12HR TOPICAL 12/13/17 21:00 01/09/18 09:15 (Trandate Inj) 10 mg Q1HR PRN IV PUSH 12/13/17 17:00 (Nitroglycerin 2% Oint) 2 inch Q6HR PRN TOPICAL 12/13/17 18:00 (Apresoline Inj) 10 mg Q1HR PRN IV PUSH 12/13/17 17:00 (Brethine Inj) 1 mg UNSCH PRN SQ 12/15/17 10:15 (Bactroban Nasal 2% Oint) Taper BID EACH NARE 12/15/17 21:00 12/11/18 20:59 01/09/18 09:12 Ceftazidime/ Avibactam 0.94 gm/ Sodium Chloride 50 ml @ 25 mls/hr Q12HR IV 12/20/17 13:00 01/09/18 23:00 01/09/18 09:00 (Cardizem) 60 mg Q6HR PO 12/24/17 12:00 Future Hold 01/01/18 01:50 (Peridex 0.12% Liq) 15 ml BID@08,20 MT 12/26/17 20:00 01/09/18 09:16 (Tears Naturale Opth Soln) 1 drop Q8HR EACH EYE 12/28/17 14:00 01/09/18 14:43 (Albuterol Neb) 2.5 mg Q2HR NEB PRN NEB 12/28/17 11:30 01/07/18 11:26 (Flomax) 0.4 mg DAILY PO 12/29/17 09:00 01/09/18 09:13 (Tylenol 650 Mg/ 20 ml Liq) 650 mg Q6H PRN PO 12/28/17 11:45 (NovoLIN R SUPPLEMENTAL SCALE) 1 ACHS SQ 12/29/17 12:00 01/08/18 17:14 (Pepcid) 20 mg HS PO 12/29/17 21:00 01/08/18 20:31 ([place] 5-325 Mg) 1 tab Q4H PRN PO 12/29/17 08:30 01/04/18 05:38 (Vancomycin 25 Mg/ml Liq) 125 mg BID PO 12/31/17 21:00 01/09/18 09:14 (Lopressor) 50 mg Q12HR PO 01/01/18 21:00 01/09/18 09:13 Phenylephrine HCl 40 mg/Dextrose 500 ml @ 30 mls/hr TITRATE PRN IV 01/02/18 12:00 01/09/18 11:30 Propofol 100 ml @ 4.176 mls/ hr TITRATE PRN IV 01/02/18 11:30 01/09/18 01:30 Heparin Sodium/ Dextrose 250 ml @ 10 mls/hr TITRATE PRN IV 01/04/18 10:45 01/09/18 14:57 (Lasix Inj) 40 mg TID IV PUSH 01/04/18 18:00 01/09/18 09:14 (Deltasone) 30 mg DAILY PO 01/09/18 09:00 01/09/18 09:13 Lines Line no evidence of infection Past Medical History Chronic respiratory failure secondary to APOLONIA, OHS and bronchial asthma Atrial fibrillation rate controlled Hypertension Dyslipidemia Gastroesophageal reflux disease Elevated BMI greater than 50 Recurrent MRSA pneumonia Depression Constipation Past Surgical History JJ stent placement by urology Hiatal hernia surgery Appendectomy Percutaneous tracheostomy by Dr. Mullins since decannulated Allergies: Coded Allergies: penicillin G (Unverified Allergy, Severe, 05/29/17) Objective . Vital Signs Date Time Temp Pulse Resp B/P (MAP) Pulse Ox O2 Delivery O2 Flow Rate FiO2 01/09/18 14:48 100 40 01/09/18 13:17 16 01/09/18 12:00 100.1 91 16 104/55 (71) 100 01/09/18 11:30 77 69/48 01/09/18 11:29 100 40 01/09/18 08:00 98.8 80 20 146/68 (94) 100 01/09/18 07:49 40 01/09/18 07:41 100 40 01/09/18 06:00 82 01/09/18 05:10 100 40 01/09/18 04:33 100 40 01/09/18 04:00 40 01/09/18 04:00 83 01/09/18 04:00 97.6 90 16 147/75 (99) 100 01/09/18 02:00 88 01/09/18 00:20 100 40 01/09/18 00:00 40 01/09/18 00:00 80 01/09/18 00:00 97.4 83 17 147/73 (97) 100 01/08/18 22:00 92 01/08/18 20:42 100 40 01/08/18 20:00 40 01/08/18 20:00 87 01/08/18 20:00 97.6 92 16 159/72 (101) 100 01/08/18 18:00 92 01/08/18 16:00 82 01/08/18 16:00 40 01/08/18 16:00 97.8 93 17 130/63 (85) 100 01/08/18 15:32 100 40 . Laboratory Tests Test 01/08/18 05:56 01/09/18 08:07 White Blood Count 10.5 TH/MM3 11.2 TH/MM3 Red Blood Count 2.71 MIL/MM3 2.82 MIL/MM3 Hemoglobin 8.2 GM/DL 8.3 GM/DL Hematocrit 24.6 % 25.6 % Mean Corpuscular Volume 90.9 FL 90.9 FL Mean Corpuscular Hemoglobin 30.2 PG 29.6 PG Mean Corpuscular Hemoglobin Concent 33.2 % 32.5 % Red Cell Distribution Width 23.2 % 22.1 % Platelet Count 84 TH/MM3 91 TH/MM3 Mean Platelet Volume 10.1 FL 10.1 FL Neutrophils (%) (Auto) 92.0 % 83.3 % Lymphocytes (%) (Auto) 2.6 % 8.3 % Monocytes (%) (Auto) 4.3 % 5.4 % Eosinophils (%) (Auto) 0.6 % 2.8 % Basophils (%) (Auto) 0.5 % 0.2 % Neutrophils # (Auto) 9.7 TH/MM3 9.3 TH/MM3 Lymphocytes # (Auto) 0.3 TH/MM3 0.9 TH/MM3 Monocytes # (Auto) 0.5 TH/MM3 0.6 TH/MM3 Eosinophils # (Auto) 0.1 TH/MM3 0.3 TH/MM3 Basophils # (Auto) 0.0 TH/MM3 0.0 TH/MM3 CBC Comment AUTO DIFF AUTO DIFF Differential Comment AUTO DIFF CONFIRMED FINAL DIFF MANUAL Platelet Estimate LOW LOW Platelet Morphology Comment NORMAL ENLARGED Ovalocytes 1+ 1+ Differential Total Cells Counted 100 Neutrophils % (Manual) 72 % Band Neutrophils % 7 % Lymphocytes % 9 % Monocytes % 10 % Eosinophils % 1 % Neutrophils # (Manual) 9.0 TH/MM3 Myelocytes 1 % Laboratory Tests Test 01/07/18 19:10 01/08/18 05:56 01/09/18 08:07 Blood Urea Nitrogen 60 MG/DL 62 MG/DL 70 MG/DL Creatinine 2.87 MG/DL 2.70 MG/DL 2.80 MG/DL Random Glucose 122 MG/DL 125 MG/DL 76 MG/DL Total Protein 5.5 GM/DL 6.0 GM/DL 5.5 GM/DL Albumin 3.4 GM/DL 3.7 GM/DL 3.2 GM/DL Calcium Level 8.0 MG/DL 8.3 MG/DL 8.5 MG/DL Alkaline Phosphatase 69 U/L 77 U/L 70 U/L Aspartate Amino Transf (AST/SGOT) 29 U/L 16 U/L 9 U/L Alanine Aminotransferase (ALT/SGPT) 22 U/L 25 U/L 21 U/L Total Bilirubin 0.7 MG/DL 0.4 MG/DL 0.5 MG/DL Sodium Level 144 MEQ/L 144 MEQ/L 143 MEQ/L Potassium Level 4.4 MEQ/L 3.8 MEQ/L 3.5 MEQ/L Chloride Level 109 MEQ/L 108 MEQ/L 110 MEQ/L Carbon Dioxide Level 17.6 MEQ/L 20.7 MEQ/L 19.3 MEQ/L Anion Gap 17 MEQ/L 15 MEQ/L 14 MEQ/L Estimat Glomerular Filtration Rate 16 ML/MIN 18 ML/MIN 17 ML/MIN Magnesium Level 2.0 MG/DL Microbiology Date/Time Source Procedure Growth Status 01/07/18 12:00 Blood Peripheral Aerobic Blood Culture - Preliminary NO GROWTH IN 2 DAYS Resulted 01/07/18 12:00 Blood Peripheral Anaerobic Blood Culture - Preliminary NO GROWTH IN 2 DAYS Resulted 01/07/18 11:45 Blood Peripheral Aerobic Blood Culture - Preliminary NO GROWTH IN 2 DAYS Resulted 01/07/18 11:45 Blood Peripheral Anaerobic Blood Culture - Preliminary NO GROWTH IN 2 DAYS Resulted Imaging Chest X-Ray 01/07/18 0000 Signed Impressions: Service Date/Time: Sunday, January 07, 2018 06:51 - CONCLUSION: 1. Worsening opacification of the left chest with volume loss likely secondary to worsening atelectasis. 2. Cardiomegaly. 3. Hazy density at the mid and lower right lung likely related to underlying edema and mild effusion. Perry Frye MD Chest CT 12/27/17 0000 Signed Impressions: Service Date/Time: December 10:29 - CONCLUSION: 1. Basilar atelectasis and small pleural effusions, increased from November 26. Mild perihilar groundglass opacity present most characteristic of minimal pulmonary edema. 2. Support apparatus as above. Moderate coronary calcifications. Sachin Gonzalez MD Abdomen/Pelvis CT 12/20/17 0000 Signed Impressions: Service Date/Time: December 21:20 - CONCLUSION: Stable appearance to the CT abdomen/pelvis were compared to 11/26/17. Right double-J stent in place, multiple gallstones, left renal mass, left lateral ventral hernia. Dorian Vasquez MD Upper Extremity Ultrasound 12/13/17 0000 Signed Impressions: Service Date/Time: December 13:43 - CONCLUSION: 1. No deep venous thrombosis in the left upper extremity. 2. Superficial thrombosis of the right cephalic vein. El Nuñez MD Lower Extremity Ultrasound 12/13/17 0000 Signed Impressions: Service Date/Time: December 14:26 - CONCLUSION: Normal examination. Domingo Calderon MD Head CT 12/13/17 0000 Signed Impressions: Service Date/Time: December 13:30 - CONCLUSION: Normal examination. Domingo Calderon MD Chest X-Ray 01/04/18 0600 Signed Impressions: Service Date/Time: Thursday, January 04, 2018 04:15 - CONCLUSION: 1. Interval improvement in opacity in the left lung with aeration now noted in the upper lobe and perihilar region. Dense consolidation remains in the left lung base. 2. The patient is rotated to the left. Chintan Marshall MD Chest CT 12/27/17 0000 Signed Impressions: Service Date/Time: December 10:29 - CONCLUSION: 1. Basilar atelectasis and small pleural effusions, increased from November 26. Mild perihilar groundglass opacity present most characteristic of minimal pulmonary edema. 2. Support apparatus as above. Moderate coronary calcifications. Sachin Gonzalez MD Abdomen/Pelvis CT 12/20/17 0000 Signed Impressions: Service Date/Time: December 21:20 - CONCLUSION: Stable appearance to the CT abdomen/pelvis were compared to 11/26/17. Right double-J stent in place, multiple gallstones, left renal mass, left lateral ventral hernia. Dorian Vasquez MD Upper Extremity Ultrasound 12/13/17 0000 Signed Impressions: Service Date/Time: December 13:43 - CONCLUSION: 1. No deep venous thrombosis in the left upper extremity. 2. Superficial thrombosis of the right cephalic vein. El Nuñez MD Lower Extremity Ultrasound 12/13/17 0000 Signed Impressions: Service Date/Time: December 14:26 - CONCLUSION: Normal examination. Domingo Calderon MD Head CT 12/13/17 0000 Signed Impressions: Service Date/Time: December 13:30 - CONCLUSION: Normal examination. Domingo Calderon MD Physical Exam GENERAL: awake, and responding, on the vent, NAD SKIN: Cool and dry. No generalized rash. edematous HEAD: Atraumatic. Normocephalic. No temporal wasting, or tenderness. EYES: [place] conjunctiva. No petechia or hemorrhage. Pupils equal, round and reactive to light. No scleral icterus. EARS, NOSE AND THROAT: Nose without bleeding or purulent nasal discharge. Moist mucosa NECK: Trachea midline. Supple and not tender, no meningeal signs CARDIOVASCULAR: Regular rate and rhythm. No murmurs, rubs or gallops heard RESPIRATORY: Decreased breath sounds R base, decreased whole L side ABDOMEN: Soft, obese, no reaction to palpation, nondistended. Edematous Bowel sounds present and normoactive. EXTREMITIES: No clubbing, cyanosis. Prominent pitting diffuse edema. No calf tenderness. . NEUROLOGICAL: Opens eyes spontaneously. Moves all 4 extremities. PSYCH: Unable to assess LINE: Line no evidence of infection Assessment & Plan Remarks IMPRESSION UTI, with Klebsiella Kleb MDR CRE ESBL+ - finishing RX Hypotension, ?new infection - ?lung - ?fungemia, has been on steroids and different Abx [place] species (GNR bacteremia): history of prior lines. 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 On Vanco IV to be dosed by ID based on levels to cover [place] bacteremia. Add Micafungin 2 BC today UA and C/S Follow C/S Monitor pulmonary status Monitor progress D/W Marely Aranda MD Jan 09, 2018 15:05
--- NOTE | 2018-01-09 16:43 | EKG ---
Date Performed: 01/09/2018 Time Performed: 10:29:56 PTAGE: 67 years EKG: ATRIAL FIBRILLATION LOW QRS VOLTAGE IN PRECORDIAL LEADS POSSIBLE RIGHT VENTRICULAR CONDUCTI ON DELAY NONSPECIFIC ST & T-WAVE ABNORMALITY ABNORMAL ECG PREVIOUS TRACING : 12/13/2017 11.48 Since the previous tracing, no significant change noted DOCTOR: Isabel Musa Interpretating Date/Time 01/09/2018 16:40:34
[2018-01-09] MEDS: MICAFUNGIN INJ 100 MG in SODIUM CHLORIDE 0.9% INJ 100 ML IV SCH (16:55)
--- NOTE | 2018-01-09 17:14 | HHI.PR ---
Subjective Subjective Notes Patient started on neosynephrine earlier today Objective Vitals/I&O Vital Signs Date Time Temp Pulse Resp B/P (MAP) Pulse Ox O2 Delivery O2 Flow Rate FiO2 01/09/18 14:48 100 40 01/09/18 13:17 16 01/09/18 12:00 100.1 91 104/55 (71) Labs Laboratory Tests Test 01/09/18 08:07 White Blood Count 11.2 Red Blood Count 2.82 Hemoglobin 8.3 Hematocrit 25.6 Mean Corpuscular Volume 90.9 Mean Corpuscular Hemoglobin 29.6 Mean Corpuscular Hemoglobin Concent 32.5 Red Cell Distribution Width 22.1 Platelet Count 91 Mean Platelet Volume 10.1 Neutrophils (%) (Auto) 83.3 Lymphocytes (%) (Auto) 8.3 Monocytes (%) (Auto) 5.4 Eosinophils (%) (Auto) 2.8 Basophils (%) (Auto) 0.2 Neutrophils # (Auto) 9.3 Lymphocytes # (Auto) 0.9 Monocytes # (Auto) 0.6 Eosinophils # (Auto) 0.3 Basophils # (Auto) 0.0 CBC Comment AUTO DIFF Differential Total Cells Counted 100 Neutrophils % (Manual) 72 Band Neutrophils % 7 Lymphocytes % 9 Monocytes % 10 Eosinophils % 1 Neutrophils # (Manual) 9.0 Myelocytes 1 Differential Comment FINAL DIFF MANUAL Platelet Estimate LOW Platelet Morphology Comment ENLARGED Ovalocytes 1+ Prothrombin Time 10.8 Prothromb Time International Ratio 1.1 Blood Urea Nitrogen 70 Creatinine 2.80 Random Glucose 76 Total Protein 5.5 Albumin 3.2 Calcium Level 8.5 Magnesium Level 2.0 Alkaline Phosphatase 70 Aspartate Amino Transf (AST/SGOT) 9 Alanine Aminotransferase (ALT/SGPT) 21 Total Bilirubin 0.5 Sodium Level 143 Potassium Level 3.5 Chloride Level 110 Carbon Dioxide Level 19.3 Anion Gap 14 Estimat Glomerular Filtration Rate 17 Random Vancomycin Level 31.3 Date/Time Source Procedure Growth Status 01/07/18 12:00 Blood Peripheral Aerobic Blood Culture - Preliminary NO GROWTH IN 2 DAYS Resulted 01/07/18 12:00 Blood Peripheral Anaerobic Blood Culture - Preliminary NO GROWTH IN 2 DAYS Resulted 01/05/18 12:45 Stool Stool Stool Occult Blood (NATALIE) - Final HEMOCCULT NEGATIVE Complete 01/03/18 18:23 Sputum Expectorated Sputum Gram Stain - Final Complete 01/03/18 18:23 Sputum Expectorated Sputum Sputum Culture - Final LIGHT GROWTH NORMAL RESPIRATORY BERNA Complete 12/21/17 00:00 Urine Clean Catch Urine Culture - Final 50-100,000 CFU/ML MIXED BERNA... Complete Lungs: Clear Abdomen: Non-distended A/P Assessment and Plan Respiratory failure, multiple extubations with failure Dr. Poon wishes to perform bronchoscopy if possible during procedure; will attempt to coordinate this. Discussed with Dr. Amador; will hold on trach today as it is elective; patient has had multiple episodes where she is on a pressor for a short time. Will tentatively plan for Thursday 01/11 Chintan Coley MD Jan 09, 2018 17:14
[2018-01-09 18:17] LABS: AMORPHOUS SEDIMENT, URINE RARE; BACTERIA, URINE OCC /hpf; BILIRUBIN, URINE NEG (NEG); BLOOD, URINE SMALL (NEG); GLUCOSE,URINE NEG (NEG); KETONE, URINE NEG (NEG); NITRITE,URINE NEG (NEG); TRANSITIONAL EPI CELLS, URINE <1 /hpf; URINE COLOR LIGHT-YELLOW (YELLW/STRAW); URINE LEUKOCYTE ESTERASE LARGE (NEG)
--- NOTE | 2018-01-09 18:34 | HHI.PR ---
Subjective Remarks On Vent support and on FIO2 35 %. Awake and responds weakly. Has Complete whiteout of left lung again Urine output was low and was Hypotensive, On pressors . Will Need Trach .and PEG tube. Trach was cancelled for today Objective Vital Signs Date Time Temp Pulse Resp B/P (MAP) Pulse Ox O2 Delivery O2 Flow Rate FiO2 01/09/18 18:00 91 01/09/18 16:01 98.3 93 16 144/75 (98) 100 01/09/18 16:00 40 01/09/18 16:00 90 01/09/18 16:00 90 16 100 01/09/18 14:48 100 40 01/09/18 14:00 102 01/09/18 13:17 16 01/09/18 12:00 91 01/09/18 12:00 100.1 91 16 104/55 (71) 100 01/09/18 12:00 40 01/09/18 11:30 77 69/48 01/09/18 11:29 100 40 01/09/18 10:00 87 01/09/18 08:00 98.8 80 20 146/68 (94) 100 01/09/18 08:00 40 01/09/18 08:00 87 01/09/18 07:49 40 01/09/18 07:41 100 40 01/09/18 06:00 82 01/09/18 05:10 100 40 01/09/18 04:33 100 40 01/09/18 04:00 40 01/09/18 04:00 83 01/09/18 04:00 97.6 90 16 147/75 (99) 100 01/09/18 02:00 88 01/09/18 00:20 100 40 01/09/18 00:00 40 01/09/18 00:00 80 01/09/18 00:00 97.4 83 17 147/73 (97) 100 01/08/18 22:00 92 01/08/18 20:42 100 40 01/08/18 20:00 40 01/08/18 20:00 87 01/08/18 20:00 97.6 92 16 159/72 (101) 100 I/O 3/27/18 3/27/18 3/27/18 3/28/18 3/28/18 3/28/18 07:00 15:00 23:00 07:00 15:00 23:00 Intake Total 300 ml 1193 ml 476 ml Output Total 750 ml 700 ml 850 ml Balance -450 ml 493 ml -374 ml Tube Feeding 1073 ml 276 ml Other 300 ml 120 ml 200 ml Output Urine Total 750 ml 650 ml 750 ml Stool Total 50 ml 100 ml # Bowel Movements 1 Result Diagram: 01/09/1880601/09/18806 Objective Remarks GENERAL: This is a Obese elderly W/F patient, Awake and on Vent support. ET Tube in. CARDIOVASCULAR: Regular rate and rhythm without murmurs, gallops, or rubs. RESPIRATORY: Diffuse expiratory wheezes, diminished breath sounds left chest .Occ Crackles at bases . GASTROINTESTINAL: Abdomen soft, non-tender,nondistended. Normal active bowel sounds MUSCULOSKELETAL: Extremities without clubbing, cyanosis,but has 1 + edema. NEURO: awake .1 + Reflexes. Assessment and Plan Assessment and Plan (1) Chronic hypercapnic respiratory failure Diagnosis: Principal (2) Hypoglycemia Diagnosis: Principal (3) BMI 50.0-59.9, adult Diagnosis: Principal (4) Afib Diagnosis: Secondary (5) Dyslipidemia Diagnosis: Secondary (6) Peripheral neuropathy Diagnosis: Secondary (7) Diabetes mellitus Diagnosis: Principal (8) Essential hypertension Diagnosis: Principal (9) Hiatal hernia Diagnosis: Secondary (10) Gastroesophageal reflux disease Diagnosis: Secondary (11) Chronic kidney disease (CKD) stage G3a/A3, moderately decreased glomerular filtration rate (GFR) between 45-59 mL/min/1.73 square meter and albuminuria creatinine ratio greater than 300 mg/g Diagnosis: Secondary (12) Left Lung atelectasis. Plan : 1 Wean FIO 2 and keep sat >92 2. Continue antibiotics.per ID 3 PT evaluation 4. Duonebs qid. 5. Keep mostly on right side 6. Bronchoscopy when trach placed in am 7. CBC,BMP in am 8. PEG tube with Feeds in am Francoise Poon MD Jan 09, 2018 18:34
[2018-01-09] MEDS: FAMOTIDINE 20 MG TAB PO SCH (21:49)
[2018-01-10] VITALS (26 sets, daily range): BP systolic 100–149; BP diastolic 50–73; PULSE 85–106; RESP 16–19; TEMP 97.6–98.8; O2SAT 94–100
[2018-01-10 03:41] LABS: HEMOGLOBIN 8.2 GM/DL (11.6-15.3); MEAN CORPUSCULAR HEMOGLOBIN 30.3 PG (27.0-34.0); MEAN PLATELET VOLUME 9.7 FL (7.0-11.0); PLATELET COUNT 97 TH/MM3 (150-450); RED CELL DISTRIBUTION WIDTH 22.4 % (11.6-17.2); WHITE BLOOD COUNT 10.4 TH/MM3 (4.0-11.0)
[2018-01-10 03:57] LABS: BICARBONATE 17.6 MEQ/L (21.0-32.0); CALCIUM 8.3 MG/DL (8.5-10.1); CREATININE 2.8 MG/DL (0.50-1.00); PHOSPHORUS 4.6 MG/DL (2.5-4.9)
[2018-01-10 03:58] LABS: RANDOM VANCOMYCIN 27.5 COMMENT
[2018-01-10] MEDS: CHLORHEXIDINE GLUCONATE 2 % 1 PACK (2 CLOTHS) TOP SCH ×2 (04:00→23:04)
[2018-01-10] MEDS: ARTIFICIAL TEARS OPTH SOLN 15 ML BTL EACH EYE SCH ×3 (05:46→23:04)
[2018-01-10] MEDS: HEPARIN-D5W 25,000 U/250 ML 250 ML IV PRN ×2 (05:47→23:34)
[2018-01-10] MEDS: INSULIN NovoLIN REGULAR SUPPLEMENTAL SCALE SQ SCH ×4 (08:00→21:00)
[2018-01-10] MEDS: RESP: BUDESONIDE 0.5 MG/2 ML NEB NEB SCH ×2 (08:26→19:43)
[2018-01-10] MEDS: TAMSULOSIN HCL 0.4 MG CAP PO SCH (09:00)
[2018-01-10] MEDS: DOCUSATE SODIUM 50 MG/SENNA 8.6 MG TAB PO SCH ×2 (09:00→20:40)
[2018-01-10] MEDS: METOPROLOL TARTRATE 25 MG TAB PO SCH ×2 (09:39→20:40)
[2018-01-10] MEDS: FUROSEMIDE 40 MG/4 ML VIAL IV PUSH SCH ×3 (09:39→17:37)
[2018-01-10] MEDS: predniSONE 10 MG TAB PO SCH (09:39)
[2018-01-10] MEDS: LACTOBACILLUS ACIDOPHILUS TAB PO SCH ×3 (09:39→17:37)
[2018-01-10] MEDS: ASCORBIC ACID 500 MG TAB PO SCH ×2 (09:39→20:40)
[2018-01-10] MEDS: VANCOMYCIN 25 MG/ML SOLN 100 ML BOTTLE PO SCH (09:40)
[2018-01-10] MEDS: PREGABALIN 75 MG CAP PO SCH (09:40)
[2018-01-10] MEDS: SODIUM CHLORIDE 0.9% FLUSH 10 ML FLUSH IV FLUSH SCH ×2 (09:42→20:40)
[2018-01-10] MEDS: CHLORHEXIDINE 0.12% (ORAL KIT) 15 ML CUP MT SCH ×2 (09:42→20:39)
[2018-01-10] MEDS: NYSTATIN 100,000 U/GM PWD 15 GM BTL TOPICAL SCH ×2 (09:43→23:04)
[2018-01-10] MEDS: MUPIROCIN 2% OINT 1 APPLIC/GM SYR EACH NARE SCH ×2 (09:53→20:39)
[2018-01-10] MEDS: SERTRALINE HCL 100 MG TAB PO SCH (09:53)
--- NOTE | 2018-01-10 10:15 | HHI.NPPN ---
Subjective Complaints: Shortness of Breath Renal Failure: Acute Interval History Trach postponed yesterday as she had to be started on pressors for hypotension. Tentatively rescheduled for Sunday. Renal function is worse. She is non oliguric. Edema persists. (Suad Lucas) Review of Systems General General Remarks unable to obtain (Suad Lucas) Cardiovascular Cardiac: Edema (Suad Lucas) Objective Data Data Vital Signs Date Time Temp Pulse Resp B/P (MAP) Pulse Ox O2 Delivery O2 Flow Rate FiO2 01/10/18 08:47 100 40 01/10/18 08:34 100 40 01/10/18 08:34 40 01/10/18 08:26 100 40 01/10/18 06:00 96 01/10/18 04:35 100 40 01/10/18 04:00 40 01/10/18 04:00 97 01/10/18 04:00 98.7 97 17 137/73 (94) 100 01/10/18 02:00 85 01/10/18 00:51 100 40 01/10/18 00:00 40 01/10/18 00:00 98.8 96 16 149/67 (94) 100 01/10/18 00:00 96 01/09/18 22:00 90 01/09/18 21:26 100 40 01/09/18 20:00 98.5 97 18 104/74 (84) 100 01/09/18 20:00 97 01/09/18 20:00 40 01/09/18 18:00 91 01/09/18 16:01 98.3 93 16 144/75 (98) 100 01/09/18 16:00 40 01/09/18 16:00 90 01/09/18 16:00 90 16 100 01/09/18 14:48 100 40 01/09/18 14:00 102 01/09/18 13:17 16 01/09/18 12:00 91 01/09/18 12:00 100.1 91 16 104/55 (71) 100 01/09/18 12:00 40 01/09/18 11:30 77 69/48 01/09/18 11:29 100 40 (Suad Lucas) -: 01/10/18 0247 01/10/18 0247 Microbiology 01/09/18 Aerobic Blood Culture, Received Pending 01/09/18 Anaerobic Blood Culture, Received Pending 01/09/18 Aerobic Blood Culture, Received Pending 01/09/18 Anaerobic Blood Culture, Received Pending 01/09/18 Urine Culture, Received Pending Imaging Last 72 hours Impressions Chest X-Ray 01/09/18 0600 Signed Impressions: Service Date/Time: Tuesday, January 09, 2018 03:35 - CONCLUSION: 1. Almost complete opacification left hemithorax likely mucous plugging/atelectasis. 2. Minimal right basilar density. El Nuñez MD Tubes & Lines: Solitario Drip Comment phenylephrine (Suad Lucas) Physical Exam General Appearance: Well Developed, No Acute Distress, Comfortable, Obese (Suad Lucas) Throat Throat Exam: Oral Mucosa [place] & Moist (Suad Lucas) Pulmonary Resp Exam: Clear Bilaterally, Breath Sounds Equal, No Distress, Rhonchi, Decreased Bases, Diminished Breath Sounds Resp Remarks minimal air movement on left (Suad Lucas) Cardiology CV Exam: Good Perfusion, Irregular, Tachycardia (Suad Lucas) Gastrointestinal/Abdomen GI Exam: Soft, Non-Tender, Bowel Sounds Present GI Remarks super morbidly obese (Suad Lucas) Musculoskeletal MS Exam: Joints Intact, Normal Tone, Unable to Ambulate (Suad Lucas) Integumentary Skin Exam: Clear, Warm, Dry, Intact (Suad Lucas) Extremeties Extremities Exam: Pedal Pulses Palpable, Moderate Edema, Dependent Edema (Suad Lucas) Neurologic Neuro Exam: Awake, Moving All Extremities, Unresponsive, Sedated (Suad Lucas) Psychiatric Psych Exam: Appropriate Responses (Suad Lucas) VTE Prophylaxis Device: SCDs (Suad Lucas) Assessment/Plan Discussed Condition With: Patient Assessment Summary: FREDDY/Acute Renal Failure, Fluid/Volume Overload Problem List: (1) FREDDY (acute kidney injury) ICD Codes: N17.9 - Acute kidney failure, unspecified Plan: Her best creatinine at discharge was 1.2 FREDDY likely due to ATN secondary to hypoperfusion injury, also due to sepsis with UTI. Creatinine has increased Non oliguric Resume lasix TID, has been held due to hypotension Avoid hypotension, she has been off pressors since yesterday evening Follow urine output Repeat labs in AM (2) Respiratory failure ICD Codes: J96.90 - Respiratory failure, unspecified, unspecified whether with hypoxia or hypercapnia Plan: s/p intubation, s/p 2nd bronchoscopy with suctioning/bronchial washing first bronchoscopy with multiple mucous plugs identified and suctioned. Also has tracheomalacia and bronchomalacia due for trach/PEG tomorrow (3) UTI (urinary tract infection) ICD Codes: N39.0 - Urinary tract infection, site not specified Plan: ID is following. ON vancomycin IV Off Avycaz Has MDRO Klebsiella Sp. Contact precautions (4) Pneumonia ICD Codes: J18.9 - Pneumonia, unspecified organism Status: Acute Plan: See above. ID is following. On IV Avycaz and IV Vanco. follow drug levels. Blood cultures show OERSKOVIA SPP (5) Anemia ICD Codes: D64.9 - Anemia, unspecified Plan: Given one unit 01/07, Hb improved No evidence of iron deficiency Monitor hemoglobin (6) C. difficile colitis ICD Codes: A04.72 - Enterocolitis due to Clostridium difficile, not specified as recurrent Plan: Tested Nov 22, has been on treatment since then. Consider stopping and monitoring off PO vancomycin (currently taper) Contact precautions. (7) Afib ICD Codes: I48.91 - Unspecified atrial fibrillation Status: Chronic Plan: rate improved On PO Cardizem and PO metoprolol (hold PRN hypotension) (8) Hypernatremia ICD Codes: E87.0 - Hyperosmolality and hypernatremia Plan: Improved Plan She has multiple comorbidities. Prognosis is guarded. May not tolerate dialysis. (Suad Lucas) Plan patient was seen and examined. Agree with above assessment and plan. (Mohinder Lopez MD) Problem Qualifiers (1) Afib: Qualified Codes: I48.2 - Chronic atrial fibrillation Suad Lucas Jan 10, 2018 10:15 Mohinder Lopez MD Jan 10, 2018 14:20
--- NOTE | 2018-01-10 11:32 | HHI.GIFU ---
Subjective Remarks Pt remains intubated via ETT Became hypotensive yesterday, requiring Ion gtt, procedures for PEG and trach cancelled Remains with OG- currently clamped Flexiseal (Mariela Carrillo) Objective Vitals I&O Vital Signs Date Time Temp Pulse Resp B/P (MAP) Pulse Ox O2 Delivery O2 Flow Rate FiO2 01/10/18 10:43 100 40 01/10/18 08:47 100 40 01/10/18 08:34 100 40 01/10/18 08:34 40 01/10/18 08:26 100 40 01/10/18 06:00 96 01/10/18 04:35 100 40 01/10/18 04:00 40 01/10/18 04:00 97 01/10/18 04:00 98.7 97 17 137/73 (94) 100 01/10/18 02:00 85 01/10/18 00:51 100 40 01/10/18 00:00 40 01/10/18 00:00 98.8 96 16 149/67 (94) 100 01/10/18 00:00 96 01/09/18 22:00 90 01/09/18 21:26 100 40 01/09/18 20:00 98.5 97 18 104/74 (84) 100 01/09/18 20:00 97 01/09/18 20:00 40 01/09/18 18:00 91 01/09/18 16:01 98.3 93 16 144/75 (98) 100 01/09/18 16:00 40 01/09/18 16:00 90 01/09/18 16:00 90 16 100 01/09/18 14:48 100 40 01/09/18 14:00 102 01/09/18 13:17 16 01/09/18 12:00 91 01/09/18 12:00 100.1 91 16 104/55 (71) 100 01/09/18 12:00 40 01/09/18 11:30 77 69/48 I/O 01/09/18 01/09/18 01/09/18 01/10/18 01/10/18 01/10/18 07:00 15:00 23:00 07:00 15:00 23:00 Intake Total 476 ml 380 ml 485 ml Output Total 850 ml 650 ml 1000 ml Balance -374 ml -270 ml -515 ml IV Total 50 ml Tube Feeding 276 ml 180 ml 315 ml Other 200 ml 200 ml 120 ml Output Urine Total 750 ml 650 ml 350 ml Stool Total 100 ml 650 ml Laboratory Laboratory Tests Test 01/09/18 16:45 01/09/18 21:30 01/10/18 02:47 Urine Color LIGHT-YELLOW Urine Turbidity HAZY Urine pH 6.0 Urine Specific [place] 1.010 Urine Protein 30 Urine Glucose (UA) NEG Urine Ketones NEG Urine Occult Blood SMALL Urine Nitrite NEG Urine Bilirubin NEG Urine Urobilinogen LESS THAN 2.0 Urine Leukocyte Esterase LARGE Urine RBC 17 Urine WBC 152 Urine Transitional Epithelial Cells <1 Urine Amorphous Sediment RARE Urine Bacteria OCC Urine Yeast with Hyphae FEW Urine Yeast (Budding) OCC Microscopic Urinalysis Comment CATH-CULTURE IND Activated Partial Thromboplast Time 56.6 71.7 White Blood Count 10.4 Red Blood Count 2.70 Hemoglobin 8.2 Hematocrit 24.0 Mean Corpuscular Volume 89.0 Mean Corpuscular Hemoglobin 30.3 Mean Corpuscular Hemoglobin Concent 34.0 Red Cell Distribution Width 22.4 Platelet Count 97 Mean Platelet Volume 9.7 Blood Urea Nitrogen 72 Creatinine 2.80 Random Glucose 86 Albumin 3.0 Calcium Level 8.3 Phosphorus Level 4.6 Sodium Level 144 Potassium Level 3.5 Chloride Level 109 Carbon Dioxide Level 17.6 Anion Gap 17 Estimat Glomerular Filtration Rate 17 Random Vancomycin Level 27.5 Date/Time Source Procedure Growth Status 01/09/18 18:14 Blood Peripheral Aerobic Blood Culture - Preliminary NO GROWTH IN 1 DAY Resulted 01/09/18 18:14 Blood Peripheral Anaerobic Blood Culture - Preliminary NO GROWTH IN 1 DAY Resulted 01/05/18 12:45 Stool Stool Stool Occult Blood (NATALIE) - Final HEMOCCULT NEGATIVE Complete 01/03/18 18:23 Sputum Expectorated Sputum Gram Stain - Final Complete 01/03/18 18:23 Sputum Expectorated Sputum Sputum Culture - Final LIGHT GROWTH NORMAL RESPIRATORY BERNA Complete 01/09/18 16:45 Urine Catheterized Urine Urine Culture Pending Received Imaging Last Impressions Chest X-Ray 01/09/18 0600 Signed Impressions: Service Date/Time: Tuesday, January 09, 2018 03:35 - CONCLUSION: 1. Almost complete opacification left hemithorax likely mucous plugging/atelectasis. 2. Minimal right basilar density. El Nuñez MD Chest CT 12/27/17 0000 Signed Impressions: Service Date/Time: December 10:29 - CONCLUSION: 1. Basilar atelectasis and small pleural effusions, increased from November 26. Mild perihilar groundglass opacity present most characteristic of minimal pulmonary edema. 2. Support apparatus as above. Moderate coronary calcifications. Sachin Gonzalez MD Abdomen/Pelvis CT 12/20/17 0000 Signed Impressions: Service Date/Time: December 21:20 - CONCLUSION: Stable appearance to the CT abdomen/pelvis were compared to 11/26/17. Right double-J stent in place, multiple gallstones, left renal mass, left lateral ventral hernia. Dorian Vasquez MD Upper Extremity Ultrasound 12/13/17 0000 Signed Impressions: Service Date/Time: December 13:43 - CONCLUSION: 1. No deep venous thrombosis in the left upper extremity. 2. Superficial thrombosis of the right cephalic vein. El Nuñez MD Lower Extremity Ultrasound 12/13/17 0000 Signed Impressions: Service Date/Time: December 14:26 - CONCLUSION: Normal examination. Domingo Calderon MD Head CT 12/13/17 0000 Signed Impressions: Service Date/Time: December 13:30 - CONCLUSION: Normal examination. Domingo Calderon MD Physical Exam HEENT: Normocephalic; atraumatic CHEST: Respirations synchronized with vent. ETT CARDIAC: RRR ABDOMEN: Morbidly obese, soft, bowel sounds active. Flexiseal SKIN: Normal; no rash; no jaundice. (Mariela Carrillo) Assessment and Plan Plan Assessment: - Consult for PEG placement- currently receiving TF through [facility]- Nepro at 45 mL/ hr - Acute hypercapnic resp failure- failed BiPaP- imaging revealed almost complete left lung collapse S/P bronchoscopy- GS consulted for tracheostomy placement. - Hypotensive- previously on Ion, not currently on any pressors, BP stable - Morbid obesity, asthma, HTN, DM, dyslipidemia, GERD, a-fib, and CKD per attending (01/09) Pt became hypotensive yesterday requiring a Ion gtt. Per RN was only needing to be on drip for about 3-4 hours. PEG and trach were cancelled for yesterday. Spoke with Reyna TIAN with states they are planning on doing trach at 1 pm tomorrow. Will schedule PEG for tomorrow as well Plan: EGD with PEG tomorrow Obtain consent Hold TF after MN Ceftazidime for abx coverage Dietary recommendations appreciated- Vital high protein at 55 mL/hr Further recommendations based on clinical course Pt has been seen and examined by myself and Dr. Pascal and this note is written on his behalf (Mariela Carrillo) Physician Comments Seen and examined Agree with above Continue with current supportive care Monitor labs Plan for an EGD with PEG placement tomorrow (Wayne Pascal MD) Mariela Carrillo Jan 10, 2018 11:32 Wayne Pascal MD Jan 10, 2018 20:55
--- NOTE | 2018-01-10 12:25 | HHI.PR ---
cc: Chintan Coley MD Subjective Subjective Notes Intubated BP remained stable today Objective Vitals/I&O Vital Signs Date Time Temp Pulse Resp B/P (MAP) Pulse Ox O2 Delivery O2 Flow Rate FiO2 01/10/18 10:43 100 40 01/10/18 06:00 96 01/10/18 04:00 98.7 17 137/73 (94) Labs Laboratory Tests Test 01/09/18 16:45 01/09/18 21:30 01/10/18 02:47 Urine Color LIGHT-YELLOW Urine Turbidity HAZY Urine pH 6.0 Urine Specific [place] 1.010 Urine Protein 30 Urine Glucose (UA) NEG Urine Ketones NEG Urine Occult Blood SMALL Urine Nitrite NEG Urine Bilirubin NEG Urine Urobilinogen LESS THAN 2.0 Urine Leukocyte Esterase LARGE Urine RBC 17 Urine WBC 152 Urine Transitional Epithelial Cells <1 Urine Amorphous Sediment RARE Urine Bacteria OCC Urine Yeast with Hyphae FEW Urine Yeast (Budding) OCC Microscopic Urinalysis Comment CATH-CULTURE IND Activated Partial Thromboplast Time 56.6 71.7 White Blood Count 10.4 Red Blood Count 2.70 Hemoglobin 8.2 Hematocrit 24.0 Mean Corpuscular Volume 89.0 Mean Corpuscular Hemoglobin 30.3 Mean Corpuscular Hemoglobin Concent 34.0 Red Cell Distribution Width 22.4 Platelet Count 97 Mean Platelet Volume 9.7 Blood Urea Nitrogen 72 Creatinine 2.80 Random Glucose 86 Albumin 3.0 Calcium Level 8.3 Phosphorus Level 4.6 Sodium Level 144 Potassium Level 3.5 Chloride Level 109 Carbon Dioxide Level 17.6 Anion Gap 17 Estimat Glomerular Filtration Rate 17 Random Vancomycin Level 27.5 Date/Time Source Procedure Growth Status 01/09/18 18:14 Blood Peripheral Aerobic Blood Culture - Preliminary NO GROWTH IN 1 DAY Resulted 01/09/18 18:14 Blood Peripheral Anaerobic Blood Culture - Preliminary NO GROWTH IN 1 DAY Resulted 01/05/18 12:45 Stool Stool Stool Occult Blood (NATALIE) - Final HEMOCCULT NEGATIVE Complete 01/03/18 18:23 Sputum Expectorated Sputum Gram Stain - Final Complete 01/03/18 18:23 Sputum Expectorated Sputum Sputum Culture - Final LIGHT GROWTH NORMAL RESPIRATORY BERNA Complete 01/09/18 16:45 Urine Catheterized Urine Urine Culture Pending Received Cardiovascular: Regular Lungs: Clear Abdomen: Other (obese abdomen ) Extremities: No edema A/P Assessment and Plan 67 year old female with VDRF in need of tracheostomy tube placement -Plan for trach placement in OR tomorrow -NPO after MN -Hold Heparin drip at 0300 on 01/11 -Consents should be on chart already signed Attending Note - Dr. Coley No changes; for trach tomorrow; will use XLT to make more secure Expect trach to be in half-way; would NOT remove it The exam, history, and the medical decision-making described in the above note were completed with the assistance of the mid-level provider. I reviewed and agree with the findings presented. I attest that I had a [id number] encounter with the patient on the same day, and personally performed and documented my assessment and findings in the medical record. Reyna Pulido/First Graciela GUIDRY Jan 10, 2018 12:25 Chintan Coley MD Jan 15, 2018 17:07
--- NOTE | 2018-01-10 14:08 | HHI.IDPN ---
Subjective Subjective Remarks Patient is a 67-year-old female, resides in the long-term, brought into the hospital after she was found unresponsive. She had a recent hospitalization where she was diagnosed to have sepsis related to complicated UTI. During that hospitalization she underwent stent placement. She also had C. difficile colitis during that admission. Patient states that she uses a BiPAP machine in the long-term usually when she is sleeping. She is nonambulatory. Denies any significant cough or congestion. No chest pain. There was no mention of any fever or chills or sweats. When she also came to the hospital this time she was on pressors for hypotension. She improved clinically and her hemodynamics stabilize. However yesterday she went hypotensive again, an infectious disease consultation has been requested to evaluate the patient. ID following for KPC positive UTI, Pneumonia. Patient known to me from prior admissions with prior MDR UTI and Cdiff last admission. Notes reviewed D/W RN On the vent Not SOB Off pressors since yesterday Trach reschedule for tomorrow Last CXR with complete opacification again on L Started on IV vanco 01/07 for one (+) BC with [place] Vanco level high Repeat BC negative so far Has PIV Antibiotics PO Vanco - tapering IV Vanco - intermittent dosing Current Medications Medications (Trade) Dose Ordered Sig/Mirta Route Start Time Stop Time Status Last Admin (NS Flush) 2 ml UNSCH PRN IV FLUSH 12/13/17 13:30 (NS Flush) 2 ml BID IV FLUSH 12/13/17 21:00 01/10/18 09:42 (Zofran Inj) 4 mg Q6H PRN IV PUSH 12/13/17 13:30 01/04/18 05:39 Miscellaneous Information 1 Q361D XX 12/13/17 13:30 12/13/17 13:30 (Chlorhexidine 2% Cloth) Taper DAILY@04 TOP 12/14/17 04:00 12/10/18 03:59 01/09/18 03:49 (Chlorhexidine 2% Cloth) 3 pack UNSCH PRN TOP 12/13/17 13:30 (Zelda-Colace) 1 tab BID PO 12/13/17 21:00 01/09/18 21:53 (Milk Of Magnesia Liq) 30 ml Q12H PRN PO 12/13/17 13:30 (Senokot) 17.2 mg Q12H PRN PO 12/13/17 13:30 (Dulcolax Supp) 10 mg DAILY PRN RECTAL 12/13/17 13:30 (Lactulose Liq) 30 ml DAILY PRN PO 12/13/17 13:30 (Xanax) 1 mg BID PRN PO 12/13/17 13:30 (Pulmicort Respule Neb) 0.5 mg Q12HR NEB NEB 12/13/17 20:00 01/10/18 08:26 (Lyrica) 75 mg DAILY PO 12/14/17 09:00 01/10/18 09:40 (Zoloft) 100 mg DAILY PO 12/14/17 09:00 01/10/18 09:53 (Vitamin C) 500 mg BID PO 12/13/17 21:00 01/10/18 09:39 (Lactinex) 1 tab TID PO 12/13/17 18:00 01/10/18 12:21 (D50w (Vial) Inj) 50 ml UNSCH PRN IV PUSH 12/13/17 13:30 12/19/17 22:25 (Glucagon Inj) 1 mg UNSCH PRN OTHER 12/13/17 13:30 (Pill Splitter) 1 ea UNSCH PRN OTHER 12/13/17 13:30 (Xarelto) 10 mg DAILY PO 12/14/17 09:00 Future Hold 01/04/18 07:59 (Mycostatin Powder) 1 applic Q12HR TOPICAL 12/13/17 21:00 01/10/18 09:43 (Trandate Inj) 10 mg Q1HR PRN IV PUSH 12/13/17 17:00 (Nitroglycerin 2% Oint) 2 inch Q6HR PRN TOPICAL 12/13/17 18:00 (Apresoline Inj) 10 mg Q1HR PRN IV PUSH 12/13/17 17:00 (Brethine Inj) 1 mg UNSCH PRN SQ 12/15/17 10:15 (Bactroban Nasal 2% Oint) Taper BID EACH NARE 12/15/17 21:00 12/11/18 20:59 01/10/18 09:53 (Cardizem) 60 mg Q6HR PO 12/24/17 12:00 Future Hold 01/01/18 01:50 (Peridex 0.12% Liq) 15 ml BID@08,20 MT 12/26/17 20:00 01/10/18 09:42 (Tears Naturale Opth Soln) 1 drop Q8HR EACH EYE 12/28/17 14:00 01/10/18 05:46 (Albuterol Neb) 2.5 mg Q2HR NEB PRN NEB 12/28/17 11:30 01/07/18 11:26 (Flomax) 0.4 mg DAILY PO 12/29/17 09:00 01/09/18 09:13 (Tylenol 650 Mg/ 20 ml Liq) 650 mg Q6H PRN PO 12/28/17 11:45 (NovoLIN R SUPPLEMENTAL SCALE) 1 ACHS SQ 12/29/17 12:00 01/08/18 17:14 (Pepcid) 20 mg HS PO 12/29/17 21:00 01/09/18 21:49 ([place] 5-325 Mg) 1 tab Q4H PRN PO 12/29/17 08:30 01/04/18 05:38 Phenylephrine HCl 40 mg/Dextrose 500 ml @ 30 mls/hr TITRATE PRN IV 01/02/18 12:00 01/09/18 11:30 Propofol 100 ml @ 4.176 mls/ hr TITRATE PRN IV 01/02/18 11:30 01/09/18 01:30 Heparin Sodium/ Dextrose 250 ml @ 10 mls/hr TITRATE PRN IV 01/04/18 10:45 01/10/18 05:47 (Lasix Inj) 40 mg TID IV PUSH 01/04/18 18:00 Future hold 01/10/18 12:21 (Deltasone) 30 mg DAILY PO 01/09/18 09:00 01/10/18 09:39 Micafungin Sodium 100 mg/Sodium Chloride 100 ml @ 100 mls/hr Q24H IV 01/09/18 16:00 01/09/18 16:55 (Lopressor) 12.5 mg BID PO 01/10/18 10:00 01/10/18 09:39 (Vancomycin 25 Mg/ml Liq) 125 mg DAILY PO 01/11/18 09:00 Lines Line no evidence of infection Past Medical History Chronic respiratory failure secondary to APOLONIA, OHS and bronchial asthma Atrial fibrillation rate controlled Hypertension Dyslipidemia Gastroesophageal reflux disease Elevated BMI greater than 50 Recurrent MRSA pneumonia Depression Constipation Past Surgical History JJ stent placement by urology Hiatal hernia surgery Appendectomy Percutaneous tracheostomy by Dr. Mullins since decannulated Allergies: Coded Allergies: penicillin G (Unverified Allergy, Severe, 05/29/17) Objective . Vital Signs Date Time Temp Pulse Resp B/P (MAP) Pulse Ox O2 Delivery O2 Flow Rate FiO2 01/10/18 13:37 100 40 01/10/18 13:01 94 16 125/58 (80) 100 01/10/18 12:01 97.6 89 16 110/52 (71) 100 01/10/18 12:00 40 01/10/18 11:04 86 19 100/50 (67) 100 01/10/18 10:43 100 40 01/10/18 10:01 87 17 136/63 (87) 100 01/10/18 09:01 93 16 129/58 (81) 100 01/10/18 08:47 100 40 01/10/18 08:34 100 40 01/10/18 08:34 40 01/10/18 08:26 100 40 01/10/18 08:01 98.4 98 16 117/58 (77) 100 01/10/18 08:00 40 01/10/18 06:00 96 01/10/18 04:35 100 40 01/10/18 04:00 40 01/10/18 04:00 97 01/10/18 04:00 98.7 97 17 137/73 (94) 100 01/10/18 02:00 85 01/10/18 00:51 100 40 01/10/18 00:00 40 01/10/18 00:00 98.8 96 16 149/67 (94) 100 01/10/18 00:00 96 01/09/18 22:00 90 01/09/18 21:26 100 40 01/09/18 20:00 98.5 97 18 104/74 (84) 100 01/09/18 20:00 97 01/09/18 20:00 40 01/09/18 18:00 91 01/09/18 16:01 98.3 93 16 144/75 (98) 100 01/09/18 16:00 40 01/09/18 16:00 90 01/09/18 16:00 90 16 100 01/09/18 14:48 100 40 . Laboratory Tests Test 01/09/18 08:07 01/10/18 02:47 White Blood Count 11.2 TH/MM3 10.4 TH/MM3 Red Blood Count 2.82 MIL/MM3 2.70 MIL/MM3 Hemoglobin 8.3 GM/DL 8.2 GM/DL Hematocrit 25.6 % 24.0 % Mean Corpuscular Volume 90.9 FL 89.0 FL Mean Corpuscular Hemoglobin 29.6 PG 30.3 PG Mean Corpuscular Hemoglobin Concent 32.5 % 34.0 % Red Cell Distribution Width 22.1 % 22.4 % Platelet Count 91 TH/MM3 97 TH/MM3 Mean Platelet Volume 10.1 FL 9.7 FL Neutrophils (%) (Auto) 83.3 % Lymphocytes (%) (Auto) 8.3 % Monocytes (%) (Auto) 5.4 % Eosinophils (%) (Auto) 2.8 % Basophils (%) (Auto) 0.2 % Neutrophils # (Auto) 9.3 TH/MM3 Lymphocytes # (Auto) 0.9 TH/MM3 Monocytes # (Auto) 0.6 TH/MM3 Eosinophils # (Auto) 0.3 TH/MM3 Basophils # (Auto) 0.0 TH/MM3 CBC Comment AUTO DIFF Differential Total Cells Counted 100 Neutrophils % (Manual) 72 % Band Neutrophils % 7 % Lymphocytes % 9 % Monocytes % 10 % Eosinophils % 1 % Neutrophils # (Manual) 9.0 TH/MM3 Myelocytes 1 % Differential Comment FINAL DIFF MANUAL Platelet Estimate LOW Platelet Morphology Comment ENLARGED Ovalocytes 1+ Laboratory Tests Test 01/09/18 08:07 01/10/18 02:47 Blood Urea Nitrogen 70 MG/DL 72 MG/DL Creatinine 2.80 MG/DL 2.80 MG/DL Random Glucose 76 MG/DL 86 MG/DL Total Protein 5.5 GM/DL Albumin 3.2 GM/DL 3.0 GM/DL Calcium Level 8.5 MG/DL 8.3 MG/DL Magnesium Level 2.0 MG/DL Alkaline Phosphatase 70 U/L Aspartate Amino Transf (AST/SGOT) 9 U/L Alanine Aminotransferase (ALT/SGPT) 21 U/L Total Bilirubin 0.5 MG/DL Sodium Level 143 MEQ/L 144 MEQ/L Potassium Level 3.5 MEQ/L 3.5 MEQ/L Chloride Level 110 MEQ/L 109 MEQ/L Carbon Dioxide Level 19.3 MEQ/L 17.6 MEQ/L Anion Gap 14 MEQ/L 17 MEQ/L Estimat Glomerular Filtration Rate 17 ML/MIN 17 ML/MIN Phosphorus Level 4.6 MG/DL Microbiology Date/Time Source Procedure Growth Status 01/09/18 18:14 Blood Peripheral Aerobic Blood Culture - Preliminary NO GROWTH IN 1 DAY Resulted 01/09/18 18:14 Blood Peripheral Anaerobic Blood Culture - Preliminary NO GROWTH IN 1 DAY Resulted 01/09/18 18:08 Blood Peripheral Aerobic Blood Culture - Preliminary NO GROWTH IN 1 DAY Resulted 01/09/18 18:08 Blood Peripheral Anaerobic Blood Culture - Preliminary NO GROWTH IN 1 DAY Resulted 01/09/18 16:45 Urine Catheterized Urine Urine Culture - Preliminary Streptococcus Species Resulted Imaging Chest X-Ray 01/07/18 0000 Signed Impressions: Service Date/Time: Sunday, January 07, 2018 06:51 - CONCLUSION: 1. Worsening opacification of the left chest with volume loss likely secondary to worsening atelectasis. 2. Cardiomegaly. 3. Hazy density at the mid and lower right lung likely related to underlying edema and mild effusion. Perry Frye MD Chest CT 12/27/17 0000 Signed Impressions: Service Date/Time: December 10:29 - CONCLUSION: 1. Basilar atelectasis and small pleural effusions, increased from November 26. Mild perihilar groundglass opacity present most characteristic of minimal pulmonary edema. 2. Support apparatus as above. Moderate coronary calcifications. Sachin Gonzalez MD Abdomen/Pelvis CT 12/20/17 0000 Signed Impressions: Service Date/Time: December 21:20 - CONCLUSION: Stable appearance to the CT abdomen/pelvis were compared to 11/26/17. Right double-J stent in place, multiple gallstones, left renal mass, left lateral ventral hernia. Dorian Vasquez MD Upper Extremity Ultrasound 12/13/17 0000 Signed Impressions: Service Date/Time: December 13:43 - CONCLUSION: 1. No deep venous thrombosis in the left upper extremity. 2. Superficial thrombosis of the right cephalic vein. El Nuñez MD Lower Extremity Ultrasound 12/13/17 0000 Signed Impressions: Service Date/Time: December 14:26 - CONCLUSION: Normal examination. Domingo Calderon MD Head CT 12/13/17 0000 Signed Impressions: Service Date/Time: December 13:30 - CONCLUSION: Normal examination. Domingo Calderon MD Chest X-Ray 01/04/18 0600 Signed Impressions: Service Date/Time: Thursday, January 04, 2018 04:15 - CONCLUSION: 1. Interval improvement in opacity in the left lung with aeration now noted in the upper lobe and perihilar region. Dense consolidation remains in the left lung base. 2. The patient is rotated to the left. Chintan Marshall MD Chest CT 12/27/17 0000 Signed Impressions: Service Date/Time: December 10:29 - CONCLUSION: 1. Basilar atelectasis and small pleural effusions, increased from November 26. Mild perihilar groundglass opacity present most characteristic of minimal pulmonary edema. 2. Support apparatus as above. Moderate coronary calcifications. Sachin Gonzalez MD Abdomen/Pelvis CT 12/20/17 0000 Signed Impressions: Service Date/Time: December 21:20 - CONCLUSION: Stable appearance to the CT abdomen/pelvis were compared to 11/26/17. Right double-J stent in place, multiple gallstones, left renal mass, left lateral ventral hernia. Dorian Vasquez MD Upper Extremity Ultrasound 12/13/17 0000 Signed Impressions: Service Date/Time: December 13:43 - CONCLUSION: 1. No deep venous thrombosis in the left upper extremity. 2. Superficial thrombosis of the right cephalic vein. El Nuñez MD Lower Extremity Ultrasound 12/13/17 0000 Signed Impressions: Service Date/Time: December 14:26 - CONCLUSION: Normal examination. Domingo Calderon MD Head CT 12/13/17 0000 Signed Impressions: Service Date/Time: December 13:30 - CONCLUSION: Normal examination. Domingo Calderon MD Physical Exam GENERAL: awake, and responding, on the vent, NAD SKIN: Cool and dry. No generalized rash. edematous HEAD: Atraumatic. Normocephalic. No temporal wasting, or tenderness. EYES: [place] conjunctiva. No petechia or hemorrhage. Pupils equal, round and reactive to light. No scleral icterus. EARS, NOSE AND THROAT: Nose without bleeding or purulent nasal discharge. Moist mucosa NECK: Trachea midline. Supple and not tender, no meningeal signs CARDIOVASCULAR: Regular rate and rhythm. No murmurs, rubs or gallops heard RESPIRATORY: Decreased breath sounds R base, decreased whole L side ABDOMEN: Soft, obese, no reaction to palpation, nondistended. Edematous Bowel sounds present and normoactive. EXTREMITIES: No clubbing, cyanosis. Prominent pitting diffuse edema. No calf tenderness. . NEUROLOGICAL: Opens eyes spontaneously. Moves all 4 extremities. PSYCH: Unable to assess LINE: Line no evidence of infection Assessment & Plan Remarks IMPRESSION UTI, with Klebsiella Kleb MDR CRE ESBL+ - S/P Rx Hypotension, ?new infection, BP better, off pressors - ?lung - ?fungemia, has been on steroids and different Abx [place] species (GNR bacteremia): history of prior lines. 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 - level still high - recheck in AM - if BC negative, will not give any further Vanco Continue Micafungin - will D/C if BC negative and remains hemodynamically stable Follow C/S Monitor pulmonary status Monitor progress Tracheostomy for tomorrow per surgery D/W Marely Aranda MD Jan 10, 2018 14:08
[2018-01-10] MEDS: MICAFUNGIN INJ 100 MG in SODIUM CHLORIDE 0.9% INJ 100 ML IV SCH (15:17)
--- NOTE | 2018-01-10 18:27 | HHI.PR ---
Subjective Remarks On Vent support and on FIO2 35 %. Awake and responds . Has Complete whiteout of left lung . Urine output was low . Will have Trach .and PEG tube. in am. Bronch in am. Objective Vital Signs Date Time Temp Pulse Resp B/P (MAP) Pulse Ox O2 Delivery O2 Flow Rate FiO2 01/10/18 17:01 99 16 127/66 (86) 01/10/18 16:04 100 40 01/10/18 16:01 98.0 95 16 137/70 (92) 01/10/18 16:00 40 01/10/18 15:01 98 16 121/66 (84) 100 01/10/18 14:01 105 16 104/50 (68) 94 01/10/18 13:37 100 40 01/10/18 13:01 94 16 125/58 (80) 100 01/10/18 12:01 97.6 89 16 110/52 (71) 100 01/10/18 12:00 40 01/10/18 11:04 86 19 100/50 (67) 100 01/10/18 10:43 100 40 01/10/18 10:01 87 17 136/63 (87) 100 01/10/18 09:01 93 16 129/58 (81) 100 01/10/18 08:47 100 40 01/10/18 08:34 100 40 01/10/18 08:34 40 01/10/18 08:26 100 40 01/10/18 08:01 98.4 98 16 117/58 (77) 100 01/10/18 08:00 40 01/10/18 06:00 96 01/10/18 04:35 100 40 01/10/18 04:00 40 01/10/18 04:00 97 01/10/18 04:00 98.7 97 17 137/73 (94) 100 01/10/18 02:00 85 01/10/18 00:51 100 40 01/10/18 00:00 40 01/10/18 00:00 98.8 96 16 149/67 (94) 100 01/10/18 00:00 96 01/09/18 22:00 90 01/09/18 21:26 100 40 01/09/18 20:00 98.5 97 18 104/74 (84) 100 01/09/18 20:00 97 01/09/18 20:00 40 I/O 01/09/18 01/09/18 01/09/18 01/10/18 01/10/18 01/10/18 07:00 15:00 23:00 07:00 15:00 23:00 Intake Total 476 ml 380 ml 485 ml 400 ml Output Total 850 ml 650 ml 1000 ml 900 ml Balance -374 ml -270 ml -515 ml -500 ml IV Total 50 ml Tube Feeding 276 ml 180 ml 315 ml 300 ml Other 200 ml 200 ml 120 ml 100 ml Output Urine Total 750 ml 650 ml 350 ml 700 ml Stool Total 100 ml 650 ml 200 ml Result Diagram: 01/10/18 0247 01/10/18 0247 Objective Remarks GENERAL: This is a Obese elderly W/F patient, Awake and on Vent support. ET Tube in. CARDIOVASCULAR: Regular rate and rhythm without murmurs, gallops, or rubs. RESPIRATORY: Diffuse expiratory wheezes, diminished breath sounds left chest . Crackles at bases . GASTROINTESTINAL: Abdomen soft, non-tender,nondistended. Normal active bowel sounds MUSCULOSKELETAL: Extremities without clubbing, cyanosis,but has 1 + edema. NEURO: awake .1 + Reflexes. Assessment and Plan Assessment and Plan (1) Chronic hypercapnic respiratory failure Diagnosis: Principal (2) Hypoglycemia Diagnosis: Principal (3) BMI 50.0-59.9, adult Diagnosis: Principal (4) Afib Diagnosis: Secondary (5) Dyslipidemia Diagnosis: Secondary (6) Peripheral neuropathy Diagnosis: Secondary (7) Diabetes mellitus Diagnosis: Principal (8) Essential hypertension Diagnosis: Principal (9) Hiatal hernia Diagnosis: Secondary (10) Gastroesophageal reflux disease Diagnosis: Secondary (11) Chronic kidney disease (CKD) stage G3a/A3, moderately decreased glomerular filtration rate (GFR) between 45-59 mL/min/1.73 square meter and albuminuria creatinine ratio greater than 300 mg/g Diagnosis: Secondary (12) Left Lung atelectasis. Plan : 1 Wean FIO 2 and keep sat >92 2. Continue antibiotics.per ID 3 PT evaluation 4. Duonebs qid. 5. Keep mostly on right side 6. Bronchoscopy in am. if consent obtained. 7. CBC,BMP in am 8. PEG tube with Feeds. Francoise Poon MD Jan 10, 2018 18:27
[2018-01-10] MEDS: RESP: ALBUTEROL 2.5 MG/3 ML NEB (PRN) NEB (19:43)
[2018-01-10] MEDS: FAMOTIDINE 20 MG TAB PO SCH (20:40)
--- NOTE | 2018-01-10 21:50 | HHI.CCPN ---
Subjective Remarks/Hospital Course This is a 67-year-old female. Date of admission 12/13/2017. Past medical history includes elevated BMI, chronic asthma on chronic oxygen, atrial fibrillation/rate controlled, hypertension dyslipidemia. Today, patient presents to [facility] emergency department [facility]. She was just discharged from the hospital 12/10/2017 from [facility]. She is morbidly obese with multiple severe chronic illnesses and was both in respiratory distress and decreased responsiveness at the same time. She was noted to be hypoxic with saturations in the e 80s with nasal cannula. Was brought in on BiPAP. Accu-Chek was in the 30s when paramedics found her. Initial GCS was reported as 3. She received some D10 through a right arm PICC line but upon arrival staff felt that the PICC line was not working properly. Patient cannot provide any history or review of systems. She arrives critically ill Patient received D50 and a central line in the right internal jugular was placed by ED physician as no significant access was available. Chest x-ray revealed no acute cardiopulmonary findings. After being placed on BiPAP and receiving glucose patient's mentation is much improved and likely can be removed in the ICU. Less confused when evaluated in the ED. UA is positive. Previous history of Pseudomonas sensitive to aztreonam 12/14: Currently resting in bed in no acute distress on 3 L nasal cannula. Overnight on BiPAP/Venturi mask currently on 3 L nasal cannula. Difficult to arouse but once arousable does follow commands in all 4 extremities but weakly. Blood sugar 135. ABG currently pending 12/15: Afebrile. Resting in bed on nasal cannula. Arousable and following commands. Ill-definition due to hypo-tension. I will place arterial line secondary to body habitus. She does not appear septic. She is more awake and alert and attentive today as compared to yesterday. 12/16: Alert and oriented 3, responding to questions appropriately. Arterial line inability to play secondary to body habitus. Patient remained on phenylephrine during the night but now map remains less than 60 will resume phenylephrine infusion, and initiate Midodrine. 12/17: Hemodynamically stable. Phenylephrine infusion off since last night. MAP 80's. Patient alert and oriented, tolerating diet/breakfast. 12/18: Late entry note. Hemodynamically stable. Decrease FiO2 requirements currently on 2 L nasal cannula O2 saturation 97-98 %. RECONSULT 12/19: Patient became hemodynamically unstable this afternoon requiring reinitiation of phenylephrine infusion currently at 70 mcgs/minute. 12/20: Patient became somnolent last evening noted respiratory acidosis around 2 AM. Patient placed back on BiPAP. ID has been consulted for MDR Klebsiella. Patient awake and alert this afternoon, and denies pain. 12/21: Respiratory status much improved, and to remain on BiPAP at night while sleeping. ABGs improved. Patient hemodynamically stable no vasopressor requirements at this time. IV fluids discontinued. Patient tolerating a diet. 12/22: Patient remains a respiratory acidosis, slightly more lethargic today. Patient placed on BiPAP with exception of meals today. Repeat ABG pending this afternoon 12/23: ABG's and neuro status unchanged. Patient remains on BiPAP with exception of meals. Repeat ABG pending this afternoon. Ammonia level ordered. 12/24 Patient is on BIPAP 15/ with 40% . In Afib with RVR 12/25 No events overnight. Remains on BIPAP. Started on Lasix drip per renal 20mg /hr 12/26: Patient remains on BiPAP lethargic. Air entry is diminished on the left side. Chest x-ray shows complete whiteout on the left side with mediastinal shift to the left indicating mucus plugging and left lung collapse. Will proceed with emergency intubation and bronchoscopy (I discussed with Dr. Baca -he will do bronchoscopy at 11:30 AM today) 12/27: Intubated yesterday for severe left lung atelectasis. Underwent bronchoscopy by Dr. Baca. Bronchoscopy showed tracheomalacia and bronchomalacia involving right mainstem bronchi, left mainstem and left upper lobe bronchi. Significant thick mucoid secretions in right upper lobe bronchi, left upper bronchus and also left lower lobe. Moderate endobronchitis. Chest x -ray shows moderate improvement in left upper lobe but persistent dense consolidation middle and lower lung zones. Check CT of the chest stat today 12/28: Afebrile. FiO2 at 30% awake alert and awake. Plan extubation today passes parameters.. 12/29: Afebrile. Extubated yesterday without complications to BiPAP currently at 12/5 at 35%. Tolerated taking pills yesterday. Somewhat lethargic this a.m. but this appears to be her baseline 12/30: Afebrile. Currently on room air. Tolerating diet. Remove central line today if furosemide drip changed to 40 mg IV [address] Archer. 12/31 Patient is on 3L oxygen. Awake, alert. Afebrile. Off Lasix drip. 01/01 No events overnight. On 3L oxygen. Off BIPAP. Afebrile. 321: Patient has diminished breath sounds left lung, and the left lung is is rc out on CXR with midline shift indicating complete atelectasis. I discussed with her need for bronchoscopy following intubation. Patient is willing for intubation and bronchoscopy. She does not want trach IF she can be extubated, if not extubated in 4-5 days patient is willing to get trach. I gave her the option for palliative care and comfort measures which patient refused. Discussed with Dr. Michelle who is covering fro Dr. Baca 01/03: Patient was intubated yesterday for almost complete left lung collapse. Had bronchoscopy and large amount of thick mucoid secretions removed from left upper and left lower lobe bronchi. Patient has severe bronchomalacia and bronchial narrowing involving left upper and lower lobe bronchi. Currently using large tidal volumes and high PEEP in an attempt to open up the lung. Patient may need permanent trach. Requiring 40 mcg/min of Ion-Synephrine 01/04: Patient remains intubated sedated but wakes up easily. Chest x-ray today shows improved aeration of the left upper and middle lung west, dense consolidation persists left lower lobe. Start weaning PEEP to 10, reduce tidal volumes to 550-600. Initiate vent weaning trials in 24 hours 01/05: still intubated and sedated. peep 8. off pathway. 01/06: failing weaning attempts. patient had requested 1 additional weaning attempt prior to tracheostomy, but I do not see this as a realistic possibility. 01/07: Chest x-ray today shows complete opacification of the left lung field again. An entry diminished on the left side on exam. Unable to wean to extubate. General surgery consulted for watery discussed with Dr. Coley. Discussed with ID Dr. Cartagena re: [place] bacteremia. Repeat cultures, completed IV vanc before 01/08: Remains intubated sedated. Plan is for OR trach tomorrow followed by bronchoscopy after trach placement by Dr. Baca. Hemoglobin 8.2 unit of PRBC yesterday 01/09: Abruptly dropped BP to 70's, 500 ml fluid bolus given and started on 50 mcg/min of Ion-Synephrine. Due to hypotension planned or trach was canceled by Dr. Coley. Chest x-ray continues to show left-sided atelectasis. Dr. Lutz planning to bronch after trach Subjective 01/10: plan for trach tomorrow. no changes. no improvements. Objective Vital Signs Date Time Temp Pulse Resp B/P (MAP) Pulse Ox O2 Delivery O2 Flow Rate FiO2 01/10/18 20:01 100 40 01/10/18 17:01 99 16 127/66 (86) 01/10/18 16:01 98.0 Intake and Output 01/10/18 01/10/18 01/11/18 08:00 16:00 00:00 Intake Total 435 ml 400 ml Output Total 1000 ml 900 ml Balance -565 ml -500 ml Result Diagram: 01/10/18 0247 01/10/18 0247 Imaging Last Impressions Chest X-Ray 12/29/17 0600 Signed Impressions: Service Date/Time: Friday, December 29, 2017 03:16 - CONCLUSION: 1. Improving aeration in the right base with persistent left basilar consolidation/ effusion. Stable cardiomegaly. 2. Interval removal of the endotracheal and nasogastric tubes. Jakob Plunkett MD Chest CT 12/27/17 0000 Signed Impressions: Service Date/Time: December 10:29 - CONCLUSION: 1. Basilar atelectasis and small pleural effusions, increased from November 26. Mild perihilar groundglass opacity present most characteristic of minimal pulmonary edema. 2. Support apparatus as above. Moderate coronary calcifications. Sachin Gonzalez MD Abdomen/Pelvis CT 12/20/17 0000 Signed Impressions: Service Date/Time: December 21:20 - CONCLUSION: Stable appearance to the CT abdomen/pelvis were compared to 11/26/17. Right double-J stent in place, multiple gallstones, left renal mass, left lateral ventral hernia. Dorian Vasquez MD Upper Extremity Ultrasound 12/13/17 0000 Signed Impressions: Service Date/Time: December 13:43 - CONCLUSION: 1. No deep venous thrombosis in the left upper extremity. 2. Superficial thrombosis of the right cephalic vein. El Nuñez MD Lower Extremity Ultrasound 12/13/17 0000 Signed Impressions: Service Date/Time: December 14:26 - CONCLUSION: Normal examination. Domingo Calderon MD Head CT 12/13/17 0000 Signed Impressions: Service Date/Time: December 13:30 - CONCLUSION: Normal examination. Domingo Calderon MD Objective Remarks GENERAL: 67-year-old female lying in bed, sedated SKIN: Warm and dry. Lower extremity venous stasis changes HEAD: Atraumatic. Normocephalic. EYES: Pupils equal and round about 3 mm bilaterally and reactive. ENT: No nasal bleeding or discharge. Orotracheally intubated NECK: Trachea midline. No JVD. CARDIOVASCULAR: IRR. Distant heart tones. Developed hypotension now on 50 mcg/ min of Ion-Synephrine RESPIRATORY: Air entry significantly diminished left lung west GASTROINTESTINAL: Abdomen soft, obese, nontender. MUSCULOSKELETAL: Extremities with 1+ bilateral upper and lower extremity edema NEUROLOGICAL: Wakes up easily while on sedation. Moves extremities follows commands A/P Assessment and Plan Neuro/Psych: Metabolic encephalopathy -improved Chronic benzodiazepine use Depression disorder NOS Diabetic neuropathy Chronic pain syndrome with chronic narcotic use Propofol for sedation, daily sedation vacation Continue hydrocodone/acetaminophen 5/325 1 tablet every 6 hours as needed pain Continue sertraline 100 mg p.o. daily for depression, pregabalin 75 mg p.o. daily for peripheral neuropathy CT brain 12/13 revealed no acute intracranial findings Acetaminophen 650 mg p.o. every 6 hours as needed fever Alprazolam 1 mg twice daily as needed anxiety-hold while intubated CV: Atrial fibrillation with RVR, now rate controlled Hypertension, now hypotensive Fluid overload Holding Lopressor and Cardizem for borderline low BP. Ion-Synephrine started to maintain map above 65 Monitor HR and BP keep MAP>65mmHg 2D echocardiogram 12/02 - EF 50-55%. The left atrial size is mildly dilated. The right atrial size is moderately dilated. Trace TR Xarelto on hold due to worsening renal failure. IV heparin start today as trach is postponed Resp: Acute hypoxic, hypercapnic respiratory failure Recurrent left lung collapse/mucus plugging Bronchomalacia, with left airway narrowing and collapse APOLONIA/OHS History recurrent MRSA pneumonia Status post intubation and bronchoscopy 12/26/2017 and extubated 12/28, bronchoscopy showed thick mucoid secretions in left upper lobe left lower lobe and right upper lobe Significant tracheomalacia and bronchomalacia involving the right and left main stem bronchi Now with recurrent collapse of the left lung. Status post intubation and bronchoscopy 01/02/2018, similar findings as above CXR 01/07 showing near complete opacification of the left lung west Tracheostomy planned for today postponed due to hypotension, discussed with Dr. Coley Patient requested to be weaned one more time prior to proceeding with tracheostomy, but unable to wean due to recurrent collapse Albuterol/ipratropium aerosols every 4 hours with albuterol aerosols every 2 hours as needed dyspnea. Mucomyst Continue budesonide 0.5 mg/2 mL 1 inhalation s every 12 hours. Continue Prednisone 20mg BID Dr. Poon pulmonary following. He is planning bronchoscopy after trach tomorrow GI: BMI greater than 40 Gastroesophageal reflux disease Hypoalbuminemia Tube feeds with Nepro. Famotidine for GI prophylaxis. Patient is on famotidine 20 mg p.o. daily at home. Docusate sodium/senna 1 tablet twice daily for bowel regimen. Patient is on senna 8.6 mg twice daily at home Having regular bowel movement. Continue ondansetron 4 mg every 6 hours as needed nausea Renal//FEN: Acute on chronic kidney disease J stent placement Monitor renal function, I/O's, avoid nephrotoxins Solitario catheter to maintain patency with recent pyelonephritis/GJ placement. On Lasix 40mg TID, Hold Lasix due to hypotension Outpatient J stent removal should be scheduled by urology that was placed during last hospitalization 12/02 12/20 CT abd/pelvis: No hydronephrosis Continue tamsulosin 0.4 mg daily Endo: Diabetes mellitus Acute hypoglycemia-resolved Sliding scale insulin with Novolin R with Accu-Cheks to maintain euglycemia every 6 hours low regimen Heme: Normocytic anemia Chronic Rivaroxaban use Right cephalic vein superficial thrombus Monitor CBC Xarelto on hold due to worsening renal failure. Resume IV heparin as trach postponed ID: Urinary tract infection/MDR Klebsiella History of MRSA History of C. difficile Blood cx 12/20 Leni sp Currently on PO vancomycin , ceftazidime/avibactam. IV Vanc per ID repeat cx for [place] bacteremia Monitor for signs of infections (Fever, WBC) Pertinent cultures Urine Legionella pneumococcal antigens negative Urine culture 12/13 Klebsiella ESBL positive Blood culture 12/20: [place] SPP Access -Peripheral IV's Prophylaxis -GI -famotidine -DVT -Xarelto on hold due to worsening renal failure. IV heparin ordered but on hold due to anemia and planned trach in a.m. IMPRESSION: deconditioned. morbidly obese. multiple failed attempts at weaning. will require tracheostomy and LTAC level care. Trach tomorrow. Christ Mullins MD Jan 10, 2018 21:50
[2018-01-10 22:59] LABS: D-DIMER 0.84 MG/L FEU (0.00-0.50)
[2018-01-11] VITALS (17 sets, daily range): BP systolic 105–134; BP diastolic 58–73; PULSE 87–102; RESP 16–19; TEMP 97.6–98.7; O2SAT 94–100
[2018-01-11] MEDS: ARTIFICIAL TEARS OPTH SOLN 15 ML BTL EACH EYE SCH ×3 (05:14→20:40)
[2018-01-11 06:01] LABS: RANDOM VANCOMYCIN 23.3 COMMENT
[2018-01-11 06:05] LABS: ALBUMIN 2.5 GM/DL (3.4-5.0); BICARBONATE 15.4 MEQ/L (21.0-32.0); CALCIUM 8.2 MG/DL (8.5-10.1); CREATININE 2.93 MG/DL (0.50-1.00); PHOSPHORUS 4.8 MG/DL (2.5-4.9)
[2018-01-11] MEDS: TAMSULOSIN HCL 0.4 MG CAP PO SCH (07:07)
[2018-01-11] MEDS: RESP: ALBUTEROL 2.5 MG/3 ML NEB (PRN) NEB ×2 (07:20→20:03)
[2018-01-11] MEDS: RESP: BUDESONIDE 0.5 MG/2 ML NEB NEB SCH ×2 (07:20→20:03)
[2018-01-11] MEDS: INSULIN NovoLIN REGULAR SUPPLEMENTAL SCALE SQ SCH ×4 (07:52→21:00)
[2018-01-11] MEDS: CHLORHEXIDINE 0.12% (ORAL KIT) 15 ML CUP MT SCH ×2 (07:52→20:39)
[2018-01-11] MEDS: MUPIROCIN 2% OINT 1 APPLIC/GM SYR EACH NARE SCH ×2 (07:53→19:44)
[2018-01-11] MEDS: SODIUM CHLORIDE 0.9% FLUSH 10 ML FLUSH IV FLUSH SCH ×2 (07:53→20:40)
[2018-01-11] MEDS: FUROSEMIDE 40 MG/4 ML VIAL IV PUSH SCH ×3 (07:54→18:30)
[2018-01-11] MEDS: predniSONE 10 MG TAB PO SCH (07:54)
[2018-01-11] MEDS: SERTRALINE HCL 100 MG TAB PO SCH (07:55)
[2018-01-11] MEDS: LACTOBACILLUS ACIDOPHILUS TAB PO SCH ×3 (07:55→15:47)
[2018-01-11] MEDS: ASCORBIC ACID 500 MG TAB PO SCH ×2 (07:55→20:40)
[2018-01-11] MEDS: METOPROLOL TARTRATE 25 MG TAB PO SCH ×2 (07:56→20:40)
[2018-01-11] MEDS: DOCUSATE SODIUM 50 MG/SENNA 8.6 MG TAB PO SCH ×2 (07:57→20:40)
[2018-01-11] MEDS: PREGABALIN 75 MG CAP PO SCH (07:57)
[2018-01-11] MEDS: VANCOMYCIN 25 MG/ML SOLN 100 ML BOTTLE PO SCH (07:58)
[2018-01-11] MEDS: NYSTATIN 100,000 U/GM PWD 15 GM BTL TOPICAL SCH ×2 (07:59→20:40)
--- NOTE | 2018-01-11 10:16 | HHI.IDPN ---
Subjective Subjective Remarks Patient is a 67-year-old female, resides in the half-way, brought into the hospital after she was found unresponsive. She had a recent hospitalization where she was diagnosed to have sepsis related to complicated UTI. During that hospitalization she underwent stent placement. She also had C. difficile colitis during that admission. Patient states that she uses a BiPAP machine in the half-way usually when she is sleeping. She is nonambulatory. Denies any significant cough or congestion. No chest pain. There was no mention of any fever or chills or sweats. When she also came to the hospital this time she was on pressors for hypotension. She improved clinically and her hemodynamics stabilize. However yesterday she went hypotensive again, an infectious disease consultation has been requested to evaluate the patient. ID following for KPC positive UTI, Pneumonia. Patient known to me from prior admissions with prior MDR UTI and Cdiff last admission. Notes reviewed On the vent Not SOB BP good Tracheostomy scheduled for today Plans for bronch also Last CXR with complete opacification again on L Started on IV vanco 01/07 for one (+) BC with [place] Vanco level 23.3 Repeat BC negative so far Has PIV Creatinine slowly rising Antibiotics PO Vanco - tapering IV Vanco - intermittent dosing Current Medications Medications (Trade) Dose Ordered Sig/Mirta Route Start Time Stop Time Status Last Admin (NS Flush) 2 ml UNSCH PRN IV FLUSH 12/13/17 13:30 (NS Flush) 2 ml BID IV FLUSH 12/13/17 21:00 01/11/18 07:53 (Zofran Inj) 4 mg Q6H PRN IV PUSH 12/13/17 13:30 01/04/18 05:39 Miscellaneous Information 1 Q361D XX 12/13/17 13:30 12/13/17 13:30 (Chlorhexidine 2% Cloth) Taper DAILY@04 TOP 12/14/17 04:00 12/10/18 03:59 01/09/18 03:49 (Chlorhexidine 2% Cloth) 3 pack UNSCH PRN TOP 12/13/17 13:30 (Zelda-Colace) 1 tab BID PO 12/13/17 21:00 01/11/18 07:57 (Milk Of Magnesia Liq) 30 ml Q12H PRN PO 12/13/17 13:30 (Senokot) 17.2 mg Q12H PRN PO 12/13/17 13:30 (Dulcolax Supp) 10 mg DAILY PRN RECTAL 12/13/17 13:30 (Lactulose Liq) 30 ml DAILY PRN PO 12/13/17 13:30 (Xanax) 1 mg BID PRN PO 12/13/17 13:30 (Pulmicort Respule Neb) 0.5 mg Q12HR NEB NEB 12/13/17 20:00 01/11/18 07:20 (Lyrica) 75 mg DAILY PO 12/14/17 09:00 01/11/18 07:57 (Zoloft) 100 mg DAILY PO 12/14/17 09:00 01/11/18 07:55 (Vitamin C) 500 mg BID PO 12/13/17 21:00 01/11/18 07:55 (Lactinex) 1 tab TID PO 12/13/17 18:00 01/11/18 07:55 (D50w (Vial) Inj) 50 ml UNSCH PRN IV PUSH 12/13/17 13:30 12/19/17 22:25 (Glucagon Inj) 1 mg UNSCH PRN OTHER 12/13/17 13:30 (Pill Splitter) 1 ea UNSCH PRN OTHER 12/13/17 13:30 (Xarelto) 10 mg DAILY PO 12/14/17 09:00 Future Hold 01/04/18 07:59 (Mycostatin Powder) 1 applic Q12HR TOPICAL 12/13/17 21:00 01/11/18 07:59 (Trandate Inj) 10 mg Q1HR PRN IV PUSH 12/13/17 17:00 (Nitroglycerin 2% Oint) 2 inch Q6HR PRN TOPICAL 12/13/17 18:00 (Apresoline Inj) 10 mg Q1HR PRN IV PUSH 12/13/17 17:00 (Brethine Inj) 1 mg UNSCH PRN SQ 12/15/17 10:15 (Bactroban Nasal 2% Oint) Taper BID EACH NARE 12/15/17 21:00 12/11/18 20:59 01/11/18 07:53 (Cardizem) 60 mg Q6HR PO 12/24/17 12:00 Future Hold 01/01/18 01:50 (Peridex 0.12% Liq) 15 ml BID@08,20 MT 12/26/17 20:00 01/11/18 07:52 (Tears Naturale Opth Soln) 1 drop Q8HR EACH EYE 12/28/17 14:00 01/11/18 05:14 (Albuterol Neb) 2.5 mg Q2HR NEB PRN NEB 12/28/17 11:30 01/11/18 07:20 (Flomax) 0.4 mg DAILY PO 12/29/17 09:00 01/09/18 09:13 (Tylenol 650 Mg/ 20 ml Liq) 650 mg Q6H PRN PO 12/28/17 11:45 (NovoLIN R SUPPLEMENTAL SCALE) 1 ACHS SQ 12/29/17 12:00 01/08/18 17:14 (Pepcid) 20 mg HS PO 12/29/17 21:00 01/10/18 20:40 (Henderson 5-325 Mg) 1 tab Q4H PRN PO 12/29/17 08:30 01/04/18 05:38 Phenylephrine HCl 40 mg/Dextrose 500 ml @ 30 mls/hr TITRATE PRN IV 01/02/18 12:00 01/09/18 11:30 Propofol 100 ml @ 4.176 mls/ hr TITRATE PRN IV 01/02/18 11:30 01/09/18 01:30 Heparin Sodium/ Dextrose 250 ml @ 10 mls/hr TITRATE PRN IV 01/04/18 10:45 01/10/18 23:34 (Lasix Inj) 40 mg TID IV PUSH 01/04/18 18:00 Future hold 01/11/18 07:54 (Deltasone) 30 mg DAILY PO 01/09/18 09:00 01/11/18 07:54 Micafungin Sodium 100 mg/Sodium Chloride 100 ml @ 100 mls/hr Q24H IV 01/09/18 16:00 01/10/18 15:17 (Lopressor) 12.5 mg BID PO 01/10/18 10:00 01/11/18 07:56 (Vancomycin 25 Mg/ml Liq) 125 mg DAILY PO 01/11/18 09:00 01/11/18 07:58 Lines Line no evidence of infection Past Medical History Chronic respiratory failure secondary to APOLONIA, OHS and bronchial asthma Atrial fibrillation rate controlled Hypertension Dyslipidemia Gastroesophageal reflux disease Elevated BMI greater than 50 Recurrent MRSA pneumonia Depression Constipation Past Surgical History JJ stent placement by urology Hiatal hernia surgery Appendectomy Percutaneous tracheostomy by Dr. Mullins since decannulated Allergies: Coded Allergies: penicillin G (Unverified Allergy, Severe, 05/29/17) Objective . Vital Signs Date Time Temp Pulse Resp B/P (MAP) Pulse Ox O2 Delivery O2 Flow Rate FiO2 01/11/18 08:00 40 01/11/18 08:00 98.6 99 16 118/58 (78) 100 01/11/18 08:00 99 01/11/18 07:21 100 40 01/11/18 06:00 90 01/11/18 04:13 100 40 01/11/18 04:00 98.3 93 16 105/58 (74) 100 01/11/18 04:00 93 01/11/18 04:00 40 01/11/18 02:00 90 01/11/18 00:00 97 01/11/18 00:00 40 01/11/18 00:00 98.7 97 16 121/58 (79) 100 01/10/18 23:30 100 40 01/10/18 22:00 104 01/10/18 20:01 100 40 01/10/18 20:00 40 01/10/18 20:00 98.4 106 16 129/61 (83) 100 01/10/18 20:00 106 01/10/18 17:01 99 16 127/66 (86) 01/10/18 16:04 100 40 01/10/18 16:01 98.0 95 16 137/70 (92) 01/10/18 16:00 40 01/10/18 15:01 98 16 121/66 (84) 100 01/10/18 14:01 105 16 104/50 (68) 94 01/10/18 13:37 100 40 01/10/18 13:01 94 16 125/58 (80) 100 01/10/18 12:01 97.6 89 16 110/52 (71) 100 01/10/18 12:00 40 01/10/18 11:04 86 19 100/50 (67) 100 01/10/18 10:43 100 40 . Laboratory Tests Test 01/10/18 02:47 White Blood Count 10.4 TH/MM3 Red Blood Count 2.70 MIL/MM3 Hemoglobin 8.2 GM/DL Hematocrit 24.0 % Mean Corpuscular Volume 89.0 FL Mean Corpuscular Hemoglobin 30.3 PG Mean Corpuscular Hemoglobin Concent 34.0 % Red Cell Distribution Width 22.4 % Platelet Count 97 TH/MM3 Mean Platelet Volume 9.7 FL Laboratory Tests Test 01/10/18 02:47 01/11/18 04:01 Blood Urea Nitrogen 72 MG/DL 79 MG/DL Creatinine 2.80 MG/DL 2.93 MG/DL Random Glucose 86 MG/DL 83 MG/DL Albumin 3.0 GM/DL 2.5 GM/DL Calcium Level 8.3 MG/DL 8.2 MG/DL Phosphorus Level 4.6 MG/DL 4.8 MG/DL Sodium Level 144 MEQ/L 142 MEQ/L Potassium Level 3.5 MEQ/L 3.6 MEQ/L Chloride Level 109 MEQ/L 109 MEQ/L Carbon Dioxide Level 17.6 MEQ/L 15.4 MEQ/L Anion Gap 17 MEQ/L 18 MEQ/L Estimat Glomerular Filtration Rate 17 ML/MIN 16 ML/MIN Microbiology Date/Time Source Procedure Growth Status 01/09/18 18:14 Blood Peripheral Aerobic Blood Culture - Preliminary NO GROWTH IN 1 DAY Resulted 01/09/18 18:14 Blood Peripheral Anaerobic Blood Culture - Preliminary NO GROWTH IN 1 DAY Resulted 01/09/18 18:08 Blood Peripheral Aerobic Blood Culture - Preliminary NO GROWTH IN 1 DAY Resulted 01/09/18 18:08 Blood Peripheral Anaerobic Blood Culture - Preliminary NO GROWTH IN 1 DAY Resulted 01/09/18 16:45 Urine Catheterized Urine Urine Culture - Preliminary Streptococcus Species Resulted Imaging Chest X-Ray 01/07/18 0000 Signed Impressions: Service Date/Time: Sunday, January 07, 2018 06:51 - CONCLUSION: 1. Worsening opacification of the left chest with volume loss likely secondary to worsening atelectasis. 2. Cardiomegaly. 3. Hazy density at the mid and lower right lung likely related to underlying edema and mild effusion. Perry Frye MD Chest CT 12/27/17 0000 Signed Impressions: Service Date/Time: December 10:29 - CONCLUSION: 1. Basilar atelectasis and small pleural effusions, increased from November 26. Mild perihilar groundglass opacity present most characteristic of minimal pulmonary edema. 2. Support apparatus as above. Moderate coronary calcifications. Sachin Gonzalez MD Abdomen/Pelvis CT 12/20/17 0000 Signed Impressions: Service Date/Time: December 21:20 - CONCLUSION: Stable appearance to the CT abdomen/pelvis were compared to 11/26/17. Right double-J stent in place, multiple gallstones, left renal mass, left lateral ventral hernia. Dorian Vasquez MD Upper Extremity Ultrasound 12/13/17 0000 Signed Impressions: Service Date/Time: December 13:43 - CONCLUSION: 1. No deep venous thrombosis in the left upper extremity. 2. Superficial thrombosis of the right cephalic vein. El Nuñez MD Lower Extremity Ultrasound 12/13/17 0000 Signed Impressions: Service Date/Time: December 14:26 - CONCLUSION: Normal examination. Domingo Calderon MD Head CT 12/13/17 0000 Signed Impressions: Service Date/Time: December 13:30 - CONCLUSION: Normal examination. Domingo Calderon MD Chest X-Ray 01/04/18 0600 Signed Impressions: Service Date/Time: Thursday, January 04, 2018 04:15 - CONCLUSION: 1. Interval improvement in opacity in the left lung with aeration now noted in the upper lobe and perihilar region. Dense consolidation remains in the left lung base. 2. The patient is rotated to the left. Chintan Marshall MD Chest CT 12/27/17 0000 Signed Impressions: Service Date/Time: December 10:29 - CONCLUSION: 1. Basilar atelectasis and small pleural effusions, increased from November 26. Mild perihilar groundglass opacity present most characteristic of minimal pulmonary edema. 2. Support apparatus as above. Moderate coronary calcifications. Sachin Gonzalez MD Abdomen/Pelvis CT 12/20/17 0000 Signed Impressions: Service Date/Time: December 21:20 - CONCLUSION: Stable appearance to the CT abdomen/pelvis were compared to 11/26/17. Right double-J stent in place, multiple gallstones, left renal mass, left lateral ventral hernia. Dorian Vasquez MD Upper Extremity Ultrasound 12/13/17 0000 Signed Impressions: Service Date/Time: December 13:43 - CONCLUSION: 1. No deep venous thrombosis in the left upper extremity. 2. Superficial thrombosis of the right cephalic vein. El Nuñez MD Lower Extremity Ultrasound 12/13/17 0000 Signed Impressions: Service Date/Time: December 14:26 - CONCLUSION: Normal examination. Domingo Calderon MD Head CT 12/13/17 0000 Signed Impressions: Service Date/Time: December 13:30 - CONCLUSION: Normal examination. Domingo Calderon MD Physical Exam GENERAL: on the vent, NAD SKIN: Cool and dry. No generalized rash. edematous HEAD: Atraumatic. Normocephalic. No temporal wasting, or tenderness. EYES: Gautier conjunctiva. No petechia or hemorrhage. Pupils equal, round and reactive to light. No scleral icterus. EARS, NOSE AND THROAT: Nose without bleeding or purulent nasal discharge. Moist mucosa. Orally intubated NECK: Trachea midline. Supple and not tender, no meningeal signs CARDIOVASCULAR: Regular rate and rhythm. No murmurs, rubs or gallops heard RESPIRATORY: Decreased breath sounds R base, decreased whole L side ABDOMEN: Soft, obese, no reaction to palpation, nondistended. Edematous Bowel sounds present and normoactive. EXTREMITIES: No clubbing, cyanosis. Prominent pitting diffuse edema. No calf tenderness. . NEUROLOGICAL: Opens eyes spontaneously. Moves all 4 extremities. PSYCH: Unable to assess LINE: Line no evidence of infection Assessment & Plan Remarks IMPRESSION UTI, with Klebsiella Kleb MDR CRE ESBL+ - S/P Rx Hypotension, ?new infection, BP better, off pressors - ?lung - ?fungemia, has been on steroids and different Abx Oerskovia species (GNR bacteremia): history of prior lines. 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 - level still high - recheck in AM - if BC negative, will not give any further Vanco Stop Micafungin Follow C/S Monitor pulmonary status Monitor progress Tracheostomy for today per surgery Marely Plunkett MD Jan 11, 2018 10:16
--- NOTE | 2018-01-11 10:46 | HHI.NPPN ---
Subjective Complaints: Shortness of Breath Renal Failure: Acute Interval History Renal function is worse. She is not on pressors. Non oliguric. Due for trach, PEG, and bronch in OR today. Edema continues. (Suad Lucas) Review of Systems General General Remarks unable to obtain (Suad Lucas) Cardiovascular Cardiac: Edema (Suad Lucas) Objective Data Data Vital Signs Date Time Temp Pulse Resp B/P (MAP) Pulse Ox O2 Delivery O2 Flow Rate FiO2 01/11/18 10:00 89 01/11/18 08:00 40 01/11/18 08:00 98.6 99 16 118/58 (78) 100 01/11/18 08:00 99 01/11/18 07:21 100 40 01/11/18 06:00 90 01/11/18 04:13 100 40 01/11/18 04:00 98.3 93 16 105/58 (74) 100 01/11/18 04:00 93 01/11/18 04:00 40 01/11/18 02:00 90 01/11/18 00:00 97 01/11/18 00:00 40 01/11/18 00:00 98.7 97 16 121/58 (79) 100 01/10/18 23:30 100 40 01/10/18 22:00 104 01/10/18 20:01 100 40 01/10/18 20:00 40 01/10/18 20:00 98.4 106 16 129/61 (83) 100 01/10/18 20:00 106 01/10/18 17:01 99 16 127/66 (86) 01/10/18 16:04 100 40 01/10/18 16:01 98.0 95 16 137/70 (92) 01/10/18 16:00 40 01/10/18 15:01 98 16 121/66 (84) 100 01/10/18 14:01 105 16 104/50 (68) 94 01/10/18 13:37 100 40 01/10/18 13:01 94 16 125/58 (80) 100 01/10/18 12:01 97.6 89 16 110/52 (71) 100 01/10/18 12:00 40 01/10/18 11:04 86 19 100/50 (67) 100 01/10/18 10:43 100 40 (Suad Lucas) -: 01/10/18 0247 01/11/18 0401 Imaging Last Impressions Chest X-Ray 01/09/18 0600 Signed Impressions: Service Date/Time: Tuesday, January 09, 2018 03:35 - CONCLUSION: 1. Almost complete opacification left hemithorax likely mucous plugging/atelectasis. 2. Minimal right basilar density. El Nuñez MD Chest CT 12/27/17 0000 Signed Impressions: Service Date/Time: December 10:29 - CONCLUSION: 1. Basilar atelectasis and small pleural effusions, increased from November 26. Mild perihilar groundglass opacity present most characteristic of minimal pulmonary edema. 2. Support apparatus as above. Moderate coronary calcifications. Sachin Gonzalez MD Abdomen/Pelvis CT 12/20/17 0000 Signed Impressions: Service Date/Time: December 21:20 - CONCLUSION: Stable appearance to the CT abdomen/pelvis were compared to 11/26/17. Right double-J stent in place, multiple gallstones, left renal mass, left lateral ventral hernia. Dorian Vasquez MD Upper Extremity Ultrasound 12/13/17 0000 Signed Impressions: Service Date/Time: December 13:43 - CONCLUSION: 1. No deep venous thrombosis in the left upper extremity. 2. Superficial thrombosis of the right cephalic vein. El Nuñez MD Lower Extremity Ultrasound 12/13/17 0000 Signed Impressions: Service Date/Time: December 14:26 - CONCLUSION: Normal examination. Domingo Calderon MD Head CT 12/13/17 0000 Signed Impressions: Service Date/Time: December 13:30 - CONCLUSION: Normal examination. Domingo Calderon MD Tubes & Lines: Solitario (Suad Lucas) Physical Exam General Appearance: Well Developed, No Acute Distress, Comfortable, Obese (Suad Lucas) Throat Throat Exam: Oral Mucosa Disney & Moist (Suad Lucas) Pulmonary Resp Exam: Clear Bilaterally, Breath Sounds Equal, No Distress, Rhonchi, Decreased Bases, Diminished Breath Sounds Resp Remarks minimal air movement on left (Suad Lucas) Cardiology CV Exam: Good Perfusion, Irregular, Tachycardia (Suad Lucas) Gastrointestinal/Abdomen GI Exam: Soft, Non-Tender, Bowel Sounds Present GI Remarks super morbidly obese (Suad Lucas) Musculoskeletal MS Exam: Joints Intact, Normal Tone, Unable to Ambulate (Suad Lucas) Integumentary Skin Exam: Clear, Warm, Dry, Intact (Suad Lucas) Extremeties Extremities Exam: Pedal Pulses Palpable, Moderate Edema, Dependent Edema (Suad Lucas) Neurologic Neuro Exam: Awake, Moving All Extremities, Unresponsive, Sedated (Suad Lucas) Psychiatric Psych Exam: Appropriate Responses (Suad Lucas) VTE Prophylaxis Device: SCDs (Suad Lucas) Assessment/Plan Discussed Condition With: Patient Assessment Summary: FREDDY/Acute Renal Failure, Fluid/Volume Overload Problem List: (1) FREDDY (acute kidney injury) ICD Codes: N17.9 - Acute kidney failure, unspecified Plan: Her best creatinine at discharge was 1.2 FREDDY likely due to ATN secondary to hypoperfusion injury, also due to sepsis with UTI. Now she is on vancomycin, monitor drug levels carefully Creatinine is worse She is non oliguric on Lasix TID. continue Dialysis is not imminent at this time. She may not do well given comorbidities and chronic hypotension. Avoid hypotension, she is off pressors Follow urine output Repeat labs in AM (2) Respiratory failure ICD Codes: J96.90 - Respiratory failure, unspecified, unspecified whether with hypoxia or hypercapnia Plan: s/p intubation, s/p 2nd bronchoscopy with suctioning/bronchial washing first bronchoscopy with multiple mucous plugs identified and suctioned. Also has tracheomalacia and bronchomalacia due for trach/PEG today with bronch (3) UTI (urinary tract infection) ICD Codes: N39.0 - Urinary tract infection, site not specified Plan: ID is following. ON vancomycin IV Has MDRO Klebsiella Sp. Contact precautions (4) Pneumonia ICD Codes: J18.9 - Pneumonia, unspecified organism Status: Acute Plan: See above. ID is following. On IV Vanco. follow drug levels. Blood cultures show OERSKOVIA SPP (5) Anemia ICD Codes: D64.9 - Anemia, unspecified Plan: Given one unit 01/07, Hb improved No evidence of iron deficiency Monitor hemoglobin (6) C. difficile colitis ICD Codes: A04.72 - Enterocolitis due to Clostridium difficile, not specified as recurrent Plan: Tested Nov 22, has been on treatment since then. Consider stopping and monitoring off PO vancomycin (currently taper) Contact precautions. (7) Afib ICD Codes: I48.91 - Unspecified atrial fibrillation Status: Chronic Plan: rate improved On PO Cardizem and PO metoprolol (hold PRN hypotension) (8) Hypernatremia ICD Codes: E87.0 - Hyperosmolality and hypernatremia Plan: Improved Plan (Suad Lucas) Plan patient was seen and examined. Agree with above assessment and plan. (Mohinder Lopez MD) Problem Qualifiers (1) Afib: Qualified Codes: I48.2 - Chronic atrial fibrillation Suad Lucas Jan 11, 2018 10:46 Mohinder Lopez MD Jan 14, 2018 10:36
[2018-01-11] MEDS ORDERED: LIDOCAINE 1%/EPINEPHrine 1:100,000 SOLN 30 ML VIAL ONE (11:26)
[2018-01-11] MEDS ORDERED: FAMOTIDINE 20 MG/2 ML VIAL ONE (11:28)
[2018-01-11] MEDS ORDERED: MIDAZOLAM HCL 2 MG/2 ML VIAL ONE ×2 (11:28→11:43)
[2018-01-11] MEDS ORDERED: PHENYLEPH/NS 1000 MCG/10 ML SYR IV ONE (12:00)
[2018-01-11] MEDS ORDERED: ROCURONIUM INJ 50 MG/5 ML SYRINGE IV PUSH ONE (12:00)
[2018-01-11] MEDS ORDERED: LIDOCAINE HCL 1% PF 5 ML SYRINGE OTHER ONE (12:00)
[2018-01-11] MEDS ORDERED: PROPOFOL 200 MG/20 ML AMP IV ONE (12:00)
--- NOTE | 2018-01-11 12:34 | HHI.PR ---
Subjective Remarks On Vent support and on FIO2 35 %. Awake and responds . Has Complete whiteout of left lung . Bronchoscopy was scheduled for 11 am but no consent so far.. Will have Trach .and PEG tube.done. Objective Vital Signs Date Time Temp Pulse Resp B/P (MAP) Pulse Ox O2 Delivery O2 Flow Rate FiO2 01/11/18 12:00 98.5 94 17 119/59 (79) 100 01/11/18 12:00 94 01/11/18 12:00 40 01/11/18 11:51 100 40 01/11/18 10:00 89 01/11/18 08:00 40 01/11/18 08:00 98.6 99 16 118/58 (78) 100 01/11/18 08:00 99 01/11/18 07:21 100 40 01/11/18 06:00 90 01/11/18 04:13 100 40 01/11/18 04:00 98.3 93 16 105/58 (74) 100 01/11/18 04:00 93 01/11/18 04:00 40 01/11/18 02:00 90 01/11/18 00:00 97 01/11/18 00:00 40 01/11/18 00:00 98.7 97 16 121/58 (79) 100 01/10/18 23:30 100 40 01/10/18 22:00 104 01/10/18 20:01 100 40 01/10/18 20:00 40 01/10/18 20:00 98.4 106 16 129/61 (83) 100 01/10/18 20:00 106 01/10/18 17:01 99 16 127/66 (86) 01/10/18 16:04 100 40 01/10/18 16:01 98.0 95 16 137/70 (92) 01/10/18 16:00 40 01/10/18 15:01 98 16 121/66 (84) 100 01/10/18 14:01 105 16 104/50 (68) 94 01/10/18 13:37 100 40 01/10/18 13:01 94 16 125/58 (80) 100 I/O 01/10/18 01/10/18 01/10/18 01/11/18 01/11/18 01/11/18 07:00 15:00 23:00 07:00 15:00 23:00 Intake Total 485 ml 400 ml 550 ml Output Total 1000 ml 900.0 ml 650 ml Balance -515 ml -500.0 ml -100 ml IV Total 50 ml 250 ml Tube Feeding 315 ml 300 ml 250 ml Other 120 ml 100 ml 50 ml Output Urine Total 350 ml 700 ml 600 ml Stool Total 650 ml 200 ml 50 ml Tube Feeding Residual Discard 0 ml Result Diagram: 01/10/18 0247 01/11/18 0401 Objective Remarks GENERAL: This is a Obese elderly W/F patient, Awake and on Vent support. ET Tube in. CARDIOVASCULAR: Regular rate and rhythm without murmurs, gallops, or rubs. RESPIRATORY: Occ expiratory wheezes, diminished breath sounds left chest . Occ Crackles at bases . GASTROINTESTINAL: Abdomen soft, non-tender,nondistended. Normal active bowel sounds MUSCULOSKELETAL: Extremities without clubbing, cyanosis,but has 1 + edema. NEURO: awake .1 + Reflexes. Assessment and Plan Assessment and Plan (1) Chronic hypercapnic respiratory failure Diagnosis: Principal (2) Hypoglycemia Diagnosis: Principal (3) BMI 50.0-59.9, adult Diagnosis: Principal (4) Afib Diagnosis: Secondary (5) Dyslipidemia Diagnosis: Secondary (6) Peripheral neuropathy Diagnosis: Secondary (7) Diabetes mellitus Diagnosis: Principal (8) Essential hypertension Diagnosis: Principal (9) Hiatal hernia Diagnosis: Secondary (10) Gastroesophageal reflux disease Diagnosis: Secondary (11) Chronic kidney disease (CKD) stage G3a/A3, moderately decreased glomerular filtration rate (GFR) between 45-59 mL/min/1.73 square meter and albuminuria creatinine ratio greater than 300 mg/g Diagnosis: Secondary (12) Left Lung atelectasis. Plan : 1 Wean FIO 2 and keep sat >92 2. Continue antibiotics. 3 Vent at rate 16, FIO2 at 40 %. 4. Duonebs qid. 5. Keep mostly on right side 6. Bronchoscopy in am. if consent obtained. 7. CBC,BMP in am 8. PEG tube with Feeds. Francoise Poon MD Jan 11, 2018 12:34
[2018-01-11] MEDS ORDERED: THROMBIN (TOPICAL) 5,000 UNIT VIAL ONE (14:10)
[2018-01-11] MEDS ORDERED: GELFOAM SIZE 100 ONE (14:10)
--- NOTE | 2018-01-11 15:55 | HHI.PR ---
cc: Chintan Coley MD Immediate Post Op Note Procedure Date: Jan 11, 2018 Pre Op Diagnosis: Ventilator dependence with morbid obesity Post Op Diagnosis: Same Surgeon: Chintan Coley Check Writing Machine Operator(s): JACOBY Castañeda Procedure: Tracheostomy Complications: None Specimen(s) removed: None Estimated blood loss: 30 ml Anesthesia: General Drains: None IVF (400ml) Patient to: PACU Patient Condition: Good Date/Time of Procedure: SEE SURGICAL CARE RECORD Chintan Coley MD Jan 11, 2018 15:55
--- NOTE | 2018-01-11 16:12 | PD.PROCEDR ---
GI Procedure PROCEDURE PERFORMED EGD with PEG placement INDICATION FOR PROCEDURE Respiratory failure, dysphagia, obesity PROCEDURE: The procedure, risks and benefits were discussed with Patient/POA and informed consent was obtained. Anesthesia sedated Patient with Diprivan. Patient was placed in the left lateral decubitus position. EGD: The Pentax videoscope was introduced through the oropharynx and advanced to the second portion of the duodenum under direct visualization. Retroflexion was performed in the stomach. FINDINGS: The esophagus this was normal The stomach this was normal The duodenum this was normal Following the evaluation of the stomach and the duodenum the stomach was insufflated with air and the area of PEG placement was identified through indentation and transillumination the area was prepped and draped in usual fashion 5 cc of lidocaine were injected locally a small incision was made then an Angiocath was passed into the stomach through which a guidewire was passed this was retrieved with the scope into that a PEG tube was attached and pulled into place and thereafter secured in usual fashion The patient tolerated procedure well and there are no immediate complications ESTIMATED BLOOD LOSS: None SPECIMENS REMOVED: None COMPLICATIONS: None IMPRESSION: Normal EGD Successful PEG placement PLAN: PLAN: 1. May use PEG tube for medications today 2. May start feeding tomorrow 3. May obtain nutritional consult for tube feeding 4. Flush tube with 50 cc of water every 4-6 hours 5. Always flush tube after feedings 6. Apply abdominal binder as necessary 7. Clamp G-tube after use and flush. Wayne Pascal MD Jan 11, 2018 16:12
--- NOTE | 2018-01-11 16:16 | MP ---
cc: Chintan Coley MD DATE OF OPERATION: 01/11/2018 PROCEDURE PERFORMED: Tracheostomy placement. PREOPERATIVE DIAGNOSIS: Ventilator dependence secondary to recurrent need for intubation with severe chronic obstructive pulmonary disease. POSTOPERATIVE DIAGNOSIS: Ventilator dependence secondary to recurrent need for intubation with severe chronic obstructive pulmonary disease. ANESTHESIA: General endotracheal. SURGEON: Chintan Coley MD ESTIMATED BLOOD LOSS: 30 mL FLUIDS: 400 mL crystalloid. COMPLICATIONS: None. DRAINS: None. SPECIMENS: None. PROCEDURE IN DETAIL: The patient was taken to the operating room and placed on the operating table in the supine position. The neck was placed in a slightly hyperextended position. The neck was prepped and draped. Timeout was taken confirming we had the correct patient, site, and procedure to be performed. Skin was incised with a knife and dissection carried down with electrocautery. An extremely large right precervical vein was noted and this was dissected free, encircled, and ligated proximally and distally with 2-0 silk suture. When this was completed, the vein was seen to be coursing across the midline and would be directly where the trach would be placed. This was dissected free as well and this was ligated with 2-0 silk suture and divided. With this out of the way, dissection was carried down to the thyroid gland, which was divided along the isthmus in the midline. Thymus tissue was swept aside and the trachea was dissected on either side. A 2-0 Prolene suture was placed through the second tracheal ring on either side. At this point, a tracheal hook was utilized to enter the trachea and pull upward for countertraction. An incision was made between the first and second tracheal rings and an inverted trap door incision was made by dividing the second tracheal ring. The tracheostomy tube could not be placed further down as it would be further down in the neck and potentially be difficult to replace if necessary. When this had been completed, the endotracheal tube was withdrawn to a level above the tracheotomy site. A #8 XLT proximal tracheostomy tube was selected and placed into the trachea. The balloon was inflated and the circuit switched over to the XLT. Good end tidal CO2 was achieved and good saturations were obtained. Good tidal volume of approximately 550-600 mL was obtained after switching the circuit over. The tracheostomy tube was sewn to the neck with four 0 silk sutures. The Prolene sutures were taped down to the chest wall with Steri-Strips. A 4 x 4's were placed around the tracheostomy tube. The trachea was irrigated and aspirated to remove mucus plugs. When this was completed, the patient had 100% saturation on 60% FIO2. At this point, the GI team entered the room to perform a PEG tube placement. Please see their dictation for this portion of the procedure. MD SHAHEEN Goodson/SB , 04:00 PM , 04:15 PM
[2018-01-11 16:32] LABS: BASOPHIL # 0.1 TH/MM3 (0-0.2); EOSINOPHIL % 0.1 % (0.0-4.0); HEMATOCRIT 23.5 % (35.0-46.0); HEMOGLOBIN 7.8 GM/DL (11.6-15.3); LYMPH % 1.5 % (9.0-44.0); LYMPHOCYTE # 0.2 TH/MM3 (1.0-4.8); MEAN CELL VOLUME 90.2 FL (80.0-100.0); MEAN CORPUSCULAR HEMOGLOBIN 29.9 PG (27.0-34.0); MEAN CORPUSCULAR HGB CONC 33.1 % (32.0-36.0); MEAN PLATELET VOLUME 10.2 FL (7.0-11.0); MONO % 1.5 % (0.0-8.0); MONOCYTE # 0.2 TH/MM3 (0-0.9); NEUT % 95.9 % (16.0-70.0); PLATELET COUNT 42 TH/MM3 (150-450); RED CELL DISTRIBUTION WIDTH 21.9 % (11.6-17.2); WHITE BLOOD COUNT 11.5 TH/MM3 (4.0-11.0)
--- NOTE | 2018-01-11 17:15 | HHI.CCPN ---
Subjective Remarks/Hospital Course This is a 67-year-old female. Date of admission 12/13/2017. Past medical history includes elevated BMI, chronic asthma on chronic oxygen, atrial fibrillation/rate controlled, hypertension dyslipidemia. Today, patient presents to [facility] emergency department after being found unresponsive at the halfway. She was just discharged from the hospital 12/10/2017 from [facility]. She is morbidly obese with multiple severe chronic illnesses and was both in respiratory distress and decreased responsiveness at the same time. She was noted to be hypoxic with saturations in the e 80s with nasal cannula. Was brought in on BiPAP. Accu-Chek was in the 30s when paramedics found her. Initial GCS was reported as 3. She received some D10 through a right arm PICC line but upon arrival staff felt that the PICC line was not working properly. Patient cannot provide any history or review of systems. She arrives critically ill Patient received D50 and a central line in the right internal jugular was placed by ED physician as no significant access was available. Chest x-ray revealed no acute cardiopulmonary findings. After being placed on BiPAP and receiving glucose patient's mentation is much improved and likely can be removed in the ICU. Less confused when evaluated in the ED. UA is positive. Previous history of Pseudomonas sensitive to aztreonam 12/14: Currently resting in bed in no acute distress on 3 L nasal cannula. Overnight on BiPAP/Venturi mask currently on 3 L nasal cannula. Difficult to arouse but once arousable does follow commands in all 4 extremities but weakly. Blood sugar 135. ABG currently pending 12/15: Afebrile. Resting in bed on nasal cannula. Arousable and following commands. Ill-definition due to hypo-tension. I will place arterial line secondary to body habitus. She does not appear septic. She is more awake and alert and attentive today as compared to yesterday. 12/16: Alert and oriented 3, responding to questions appropriately. Arterial line inability to play secondary to body habitus. Patient remained on phenylephrine during the night but now map remains less than 60 will resume phenylephrine infusion, and initiate Midodrine. 12/17: Hemodynamically stable. Phenylephrine infusion off since last night. MAP 80's. Patient alert and oriented, tolerating diet/breakfast. 12/18: Late entry note. Hemodynamically stable. Decrease FiO2 requirements currently on 2 L nasal cannula O2 saturation 97-98 %. RECONSULT 12/19: Patient became hemodynamically unstable this afternoon requiring reinitiation of phenylephrine infusion currently at 70 mcgs/minute. 12/20: Patient became somnolent last evening noted respiratory acidosis around 2 AM. Patient placed back on BiPAP. ID has been consulted for MDR Klebsiella. Patient awake and alert this afternoon, and denies pain. 12/21: Respiratory status much improved, and to remain on BiPAP at night while sleeping. ABGs improved. Patient hemodynamically stable no vasopressor requirements at this time. IV fluids discontinued. Patient tolerating a diet. 12/22: Patient remains a respiratory acidosis, slightly more lethargic today. Patient placed on BiPAP with exception of meals today. Repeat ABG pending this afternoon 12/23: ABG's and neuro status unchanged. Patient remains on BiPAP with exception of meals. Repeat ABG pending this afternoon. Ammonia level ordered. 12/24 Patient is on BIPAP 15/ with 40% . In Afib with RVR 12/25 No events overnight. Remains on BIPAP. Started on Lasix drip per renal 20mg /hr 12/26: Patient remains on BiPAP lethargic. Air entry is diminished on the left side. Chest x-ray shows complete whiteout on the left side with mediastinal shift to the left indicating mucus plugging and left lung collapse. Will proceed with emergency intubation and bronchoscopy (I discussed with Dr. Baca -he will do bronchoscopy at 11:30 AM today) 12/27: Intubated yesterday for severe left lung atelectasis. Underwent bronchoscopy by Dr. Baca. Bronchoscopy showed tracheomalacia and bronchomalacia involving right mainstem bronchi, left mainstem and left upper lobe bronchi. Significant thick mucoid secretions in right upper lobe bronchi, left upper bronchus and also left lower lobe. Moderate endobronchitis. Chest x -ray shows moderate improvement in left upper lobe but persistent dense consolidation middle and lower lung zones. Check CT of the chest stat today 12/28: Afebrile. FiO2 at 30% awake alert and awake. Plan extubation today passes parameters.. 12/29: Afebrile. Extubated yesterday without complications to BiPAP currently at 12/5 at 35%. Tolerated taking pills yesterday. Somewhat lethargic this a.m. but this appears to be her baseline 12/30: Afebrile. Currently on room air. Tolerating diet. Remove central line today if furosemide drip changed to 40 mg IV [address] Archer. 12/31 Patient is on 3L oxygen. Awake, alert. Afebrile. Off Lasix drip. 01/01 No events overnight. On 3L oxygen. Off BIPAP. Afebrile. 321: Patient has diminished breath sounds left lung, and the left lung is is rc out on CXR with midline shift indicating complete atelectasis. I discussed with her need for bronchoscopy following intubation. Patient is willing for intubation and bronchoscopy. She does not want trach IF she can be extubated, if not extubated in 4-5 days patient is willing to get trach. I gave her the option for palliative care and comfort measures which patient refused. Discussed with Dr. Michelle who is covering fro Dr. Baca 01/03: Patient was intubated yesterday for almost complete left lung collapse. Had bronchoscopy and large amount of thick mucoid secretions removed from left upper and left lower lobe bronchi. Patient has severe bronchomalacia and bronchial narrowing involving left upper and lower lobe bronchi. Currently using large tidal volumes and high PEEP in an attempt to open up the lung. Patient may need permanent trach. Requiring 40 mcg/min of Ion-Synephrine 01/04: Patient remains intubated sedated but wakes up easily. Chest x-ray today shows improved aeration of the left upper and middle lung west, dense consolidation persists left lower lobe. Start weaning PEEP to 10, reduce tidal volumes to 550-600. Initiate vent weaning trials in 24 hours 01/05: still intubated and sedated. peep 8. off pathway. 01/06: failing weaning attempts. patient had requested 1 additional weaning attempt prior to tracheostomy, but I do not see this as a realistic possibility. 01/07: Chest x-ray today shows complete opacification of the left lung field again. An entry diminished on the left side on exam. Unable to wean to extubate. General surgery consulted for watery discussed with Dr. Coley. Discussed with ID Dr. Cartagena re: [place] bacteremia. Repeat cultures, completed IV vanc before 01/08: Remains intubated sedated. Plan is for OR trach tomorrow followed by bronchoscopy after trach placement by Dr. Baca. Hemoglobin 8.2 unit of PRBC yesterday 01/09: Abruptly dropped BP to 70's, 500 ml fluid bolus given and started on 50 mcg/min of Ion-Synephrine. Due to hypotension planned or trach was canceled by Dr. Coley. Chest x-ray continues to show left-sided atelectasis. Dr. Lutz planning to bronch after trach 01/10: plan for trach tomorrow. no changes. no improvements. Subjective 01/11: s/p trach today. still sedated from anesthesia. no changes. will need long -term acute care facility, likely Sunday once trach more secure. Objective Vital Signs Date Time Temp Pulse Resp B/P (MAP) Pulse Ox O2 Delivery O2 Flow Rate FiO2 01/11/18 16:58 100 40 01/11/18 16:00 102 01/11/18 16:00 97.6 17 119/60 (79) Intake and Output 01/11/18 01/11/18 01/12/18 08:00 16:00 00:00 Intake Total 300 ml 500 ml Output Total 650 ml 30 ml Balance -350 ml 470 ml Result Diagram: 01/11/18 1546 01/11/18 0401 Imaging Last Impressions Chest X-Ray 12/29/17 0600 Signed Impressions: Service Date/Time: Friday, December 29, 2017 03:16 - CONCLUSION: 1. Improving aeration in the right base with persistent left basilar consolidation/ effusion. Stable cardiomegaly. 2. Interval removal of the endotracheal and nasogastric tubes. Jakob Plunkett MD Chest CT 12/27/17 0000 Signed Impressions: Service Date/Time: December 10:29 - CONCLUSION: 1. Basilar atelectasis and small pleural effusions, increased from November 26. Mild perihilar groundglass opacity present most characteristic of minimal pulmonary edema. 2. Support apparatus as above. Moderate coronary calcifications. Sachin Gonzalez MD Abdomen/Pelvis CT 12/20/17 0000 Signed Impressions: Service Date/Time: December 21:20 - CONCLUSION: Stable appearance to the CT abdomen/pelvis were compared to 11/26/17. Right double-J stent in place, multiple gallstones, left renal mass, left lateral ventral hernia. Dorian Vasquez MD Upper Extremity Ultrasound 12/13/17 Signed Impressions: Service Date/Time: December 13:43 - CONCLUSION: 1. No deep venous thrombosis in the left upper extremity. 2. Superficial thrombosis of the right cephalic vein. El Nuñez MD Lower Extremity Ultrasound 12/13/17 Signed Impressions: Service Date/Time: December 14:26 - CONCLUSION: Normal examination. Domingo Calderon MD Head CT 12/13/17 Signed Impressions: Service Date/Time: December 13:30 - CONCLUSION: Normal examination. Domingo Calderon MD Objective Remarks GENERAL: 67-year-old female lying in bed, sedated SKIN: Warm and dry. Lower extremity venous stasis changes HEAD: Atraumatic. Normocephalic. EYES: Pupils equal and round about 3 mm bilaterally and reactive. ENT: No nasal bleeding or discharge. fresh trach in place, minimal blood around trach. NECK: Trachea midline. No JVD. CARDIOVASCULAR: IRR. Distant heart tones. RESPIRATORY: Air entry significantly diminished left lung west GASTROINTESTINAL: Abdomen soft, obese, nontender. MUSCULOSKELETAL: Extremities with 1+ bilateral upper and lower extremity edema NEUROLOGICAL: Wakes up easily while on sedation. Moves extremities follows commands A/P Assessment and Plan Neuro/Psych: Metabolic encephalopathy -improved Chronic benzodiazepine use Depression disorder NOS Diabetic neuropathy Chronic pain syndrome with chronic narcotic use Propofol for sedation, daily sedation vacation Continue hydrocodone/acetaminophen 5/325 1 tablet every 6 hours as needed pain Continue sertraline 100 mg p.o. daily for depression, pregabalin 75 mg p.o. daily for peripheral neuropathy CT brain 12/13 revealed no acute intracranial findings Acetaminophen 650 mg p.o. every 6 hours as needed fever Alprazolam 1 mg twice daily as needed anxiety-hold while intubated CV: Atrial fibrillation with RVR, now rate controlled Hypertension, now hypotensive Fluid overload Holding Lopressor and Cardizem for borderline low BP. Ion-Synephrine started to maintain map above 65 Monitor HR and BP keep MAP>65mmHg 2D echocardiogram 12/02 - EF 50-55%. The left atrial size is mildly dilated. The right atrial size is moderately dilated. Trace TR Xarelto on hold due to worsening renal failure. IV heparin Resp: Acute hypoxic, hypercapnic respiratory failure Recurrent left lung collapse/mucus plugging Bronchomalacia, with left airway narrowing and collapse APOLONIA/OHS History recurrent MRSA pneumonia Status post intubation and bronchoscopy 12/26/2017 and extubated 12/28, bronchoscopy showed thick mucoid secretions in left upper lobe left lower lobe and right upper lobe Significant tracheomalacia and bronchomalacia involving the right and left main stem bronchi Now with recurrent collapse of the left lung. Status post intubation and bronchoscopy 01/02/2018, similar findings as above CXR 01/07 showing near complete opacification of the left lung west Tracheostomy planned for today postponed due to hypotension, discussed with Dr. Coley Patient requested to be weaned one more time prior to proceeding with tracheostomy, but unable to wean due to recurrent collapse Albuterol/ipratropium aerosols every 4 hours with albuterol aerosols every 2 hours as needed dyspnea. Mucomyst Continue budesonide 0.5 mg/2 mL 1 inhalation s every 12 hours. Continue Prednisone 20mg BID Dr. Poon pulmonary following. s/p trach 01/[address] Coley GI: BMI greater than 40 Gastroesophageal reflux disease Hypoalbuminemia Tube feeds with Nepro. Famotidine for GI prophylaxis. Patient is on famotidine 20 mg p.o. daily at home. Docusate sodium/senna 1 tablet twice daily for bowel regimen. Patient is on senna 8.6 mg twice daily at home Having regular bowel movement. Continue ondansetron 4 mg every 6 hours as needed nausea Renal//FEN: Acute on chronic kidney disease J stent placement Monitor renal function, I/O's, avoid nephrotoxins Solitario catheter to maintain patency with recent pyelonephritis/GJ placement. On Lasix 40mg TID, Hold Lasix due to hypotension Outpatient J stent removal should be scheduled by urology that was placed during last hospitalization 12/02 12/20 CT abd/pelvis: No hydronephrosis Continue tamsulosin 0.4 mg daily Endo: Diabetes mellitus Acute hypoglycemia-resolved Sliding scale insulin with Novolin R with Accu-Cheks to maintain euglycemia every 6 hours low regimen Heme: Normocytic anemia Chronic Rivaroxaban use Right cephalic vein superficial thrombus Monitor CBC Xarelto on hold due to worsening renal failure. IV heparin ID: Urinary tract infection/MDR Klebsiella History of MRSA History of C. difficile Blood cx 12/20 Leni sp Currently on PO vancomycin , ceftazidime/avibactam. IV Vanc per ID repeat cx for [place] bacteremia Monitor for signs of infections (Fever, WBC) Pertinent cultures Urine Legionella pneumococcal antigens negative Urine culture 12/13 Klebsiella ESBL positive Blood culture 12/20: [place] SPP Access -Peripheral IV's Prophylaxis -GI -famotidine -DVT -Xarelto on hold due to worsening renal failure. IV heparin ordered but on hold due to anemia and planned trach IMPRESSION: deconditioned. morbidly obese. multiple failed attempts at weaning. will require LTAC level care. Christ Mullins MD Jan 11, 2018 17:15
[2018-01-11 17:23] LABS: BANDS 1 % (0-6); LYMPHOCYTES 3 % (9-44); NEUTROPHIL # MANUAL DIFF 11.2 TH/MM3 (1.8-7.7); POLYS (SEG NEUTROPHILS) 95 % (16-70); PROMYELOCYTES 1 % (0-0)
[2018-01-11] MEDS: CHLORHEXIDINE GLUCONATE 2 % 1 PACK (2 CLOTHS) TOP SCH (19:56)
[2018-01-11] MEDS: FAMOTIDINE 20 MG TAB PO SCH (20:40)
[2018-01-12] VITALS (31 sets, daily range): BP systolic 109–157; BP diastolic 53–91; PULSE 80–103; RESP 16–23; TEMP 97.9–98.6; O2SAT 99–100
[2018-01-12] MEDS: ARTIFICIAL TEARS OPTH SOLN 15 ML BTL EACH EYE SCH ×3 (04:47→21:15)
--- NOTE | 2018-01-12 06:00 | RADRPT ---
EXAM DATE/TIME: 01/12/2018 04:41 [facility] COMPARISON: CHEST SINGLE AP, January 09, 2018, 3:35. INDICATIONS : Shortness of breath, possible pneumothorax. MEDICAL HISTORY : Hypertension. Diabetes mellitus type II. SURGICAL HISTORY : None. ENCOUNTER: Subsequent ACUITY: 2 months PAIN SCORE: Non-responsive. LOCATION: Bilateral chest FINDINGS: A single view of the chest demonstrates stable opacification of the left lung. Minimal atelectasis ri ght lung base. The tracheostomy tube is in good position.. Osseous structures are intact. CONCLUSION: Stable consolidation throughout the left lung with a small infiltrate at the right lung base rodney Calderon MD on January 12, 2018 at 5:57 Board Certified Radiologist. This report was verified electronically.
[2018-01-12] MEDS: RESP: BUDESONIDE 0.5 MG/2 ML NEB NEB SCH ×2 (07:57→19:46)
[2018-01-12] MEDS: INSULIN NovoLIN REGULAR SUPPLEMENTAL SCALE SQ SCH ×4 (08:00→21:00)
[2018-01-12] MEDS: CHLORHEXIDINE 0.12% (ORAL KIT) 15 ML CUP MT SCH ×2 (08:30→20:00)
[2018-01-12] MEDS: SERTRALINE HCL 100 MG TAB PO SCH (08:31)
[2018-01-12] MEDS: SODIUM CHLORIDE 0.9% FLUSH 10 ML FLUSH IV FLUSH SCH ×2 (08:31→21:14)
[2018-01-12] MEDS: FUROSEMIDE 40 MG/4 ML VIAL IV PUSH SCH ×3 (08:31→17:42)
[2018-01-12] MEDS: TAMSULOSIN HCL 0.4 MG CAP PO SCH (08:31)
[2018-01-12] MEDS: MUPIROCIN 2% OINT 1 APPLIC/GM SYR EACH NARE SCH ×2 (08:31→21:14)
[2018-01-12] MEDS: ASCORBIC ACID 500 MG TAB PO SCH ×2 (08:31→21:14)
[2018-01-12] MEDS: DOCUSATE SODIUM 50 MG/SENNA 8.6 MG TAB PO SCH ×2 (08:32→21:14)
[2018-01-12] MEDS: predniSONE 10 MG TAB PO SCH (08:32)
[2018-01-12] MEDS: METOPROLOL TARTRATE 25 MG TAB PO SCH ×2 (08:32→21:14)
[2018-01-12] MEDS: LACTOBACILLUS ACIDOPHILUS TAB PO SCH ×3 (08:32→17:42)
[2018-01-12] MEDS: NYSTATIN 100,000 U/GM PWD 15 GM BTL TOPICAL SCH ×2 (08:33→21:14)
[2018-01-12] MEDS: PREGABALIN 75 MG CAP PO SCH (08:38)
[2018-01-12] MEDS: VANCOMYCIN 25 MG/ML SOLN 100 ML BOTTLE PO SCH (08:40)
--- NOTE | 2018-01-12 12:45 | HHI.PR ---
Objective Vitals/I&O Vital Signs Date Time Temp Pulse Resp B/P (MAP) Pulse Ox O2 Delivery O2 Flow Rate FiO2 01/12/18 11:55 100 40 01/12/18 06:00 80 01/12/18 04:00 98.2 20 116/61 (79) Labs Laboratory Tests Test 01/11/18 15:46 01/11/18 19:38 01/12/18 03:09 White Blood Count 11.5 Red Blood Count 2.60 Hemoglobin 7.8 Hematocrit 23.5 Mean Corpuscular Volume 90.2 Mean Corpuscular Hemoglobin 29.9 Mean Corpuscular Hemoglobin Concent 33.1 Red Cell Distribution Width 21.9 Platelet Count 42 Mean Platelet Volume 10.2 Neutrophils (%) (Auto) 95.9 Lymphocytes (%) (Auto) 1.5 Monocytes (%) (Auto) 1.5 Eosinophils (%) (Auto) 0.1 Basophils (%) (Auto) 1.0 Neutrophils # (Auto) 11.0 Lymphocytes # (Auto) 0.2 Monocytes # (Auto) 0.2 Eosinophils # (Auto) 0.0 Basophils # (Auto) 0.1 CBC Comment AUTO DIFF Differential Total Cells Counted 100 Neutrophils % (Manual) 95 Band Neutrophils % 1 Lymphocytes % 3 Neutrophils # (Manual) 11.2 Promyelocytes 1 Differential Comment FINAL DIFF MANUAL Platelet Estimate LOW Platelet Morphology Comment ENLARGED Blood Gas Puncture Site LT RADIAL Blood Gas Patient Temperature 98.6 Blood Gas HCO3 17 Blood Gas Base Excess -7.2 Blood Gas Oxygen Saturation 97 Arterial Blood pH 7.37 Arterial Blood Partial Pressure CO2 31 Arterial Blood Partial Pressure O2 167 Arterial Blood Oxygen Content 11.6 Arterial Blood Carboxyhemoglobin 1.4 Arterial Blood Methemoglobin 1.3 Blood Gas Hemoglobin 8.3 Oxygen Delivery Device VENTILATOR Blood Gas Ventilator Setting SEE COMMENTS Blood Gas Inspired Oxygen 40 Random Vancomycin Level 21.6 Date/Time Source Procedure Growth Status 01/09/18 18:14 Blood Peripheral Aerobic Blood Culture - Preliminary NO GROWTH IN 3 DAYS Resulted 01/09/18 18:14 Blood Peripheral Anaerobic Blood Culture - Preliminary NO GROWTH IN 3 DAYS Resulted 01/05/18 12:45 Stool Stool Stool Occult Blood (NATALIE) - Final HEMOCCULT NEGATIVE Complete 01/03/18 18:23 Sputum Expectorated Sputum Gram Stain - Final Complete 01/03/18 18:23 Sputum Expectorated Sputum Sputum Culture - Final LIGHT GROWTH NORMAL RESPIRATORY BERNA Complete 01/09/18 16:45 Urine Catheterized Urine Urine Culture - Final Enterococcus Faecium Vre Yuly Gl[place] Complete Radiology Trach site with expected postoperative drainage. Dressing removed. Site itself was uncomplicated. She has equal breath sounds and again is comfortably breathing. At nursing request PEG site was evaluated again a large dressing removed with some serosanguineous drainage. PEG exit site itself looks fine. A/P Assessment and Plan Postop day 1 status post tracheostomy tube placement. It appears to be functioning well. The drainage around the trach as expected. Surgery will sign off. Please reconsult on an as-needed basis. Tonio Funk MD Jan 12, 2018 12:45
--- NOTE | 2018-01-12 13:00 | HHI.NPPN ---
Subjective Complaints: Shortness of Breath Renal Failure: Acute Additional Remarks Patient is awake, on the vent. not in distress. Review of Systems General General Remarks unable to obtain Cardiovascular Cardiac: Edema Objective Data Data Vital Signs Date Time Temp Pulse Resp B/P (MAP) Pulse Ox O2 Delivery O2 Flow Rate FiO2 01/12/18 11:55 100 40 01/12/18 08:48 100 40 01/12/18 06:00 80 01/12/18 04:35 100 40 01/12/18 04:00 82 01/12/18 04:00 40 01/12/18 04:00 98.2 82 20 116/61 (79) 100 01/12/18 02:00 89 01/12/18 01:02 100 40 01/12/18 00:00 40 01/12/18 00:00 98.0 94 22 135/91 (106) 01/12/18 00:00 94 01/11/18 22:00 87 01/11/18 20:03 100 40 01/11/18 20:00 40 01/11/18 20:00 94 01/11/18 20:00 97.6 94 19 134/73 (93) 100 01/11/18 18:00 96 01/11/18 16:58 100 40 01/11/18 16:39 100 40 01/11/18 16:00 102 01/11/18 16:00 97.6 102 17 119/60 (79) 94 01/11/18 16:00 40 -: 01/11/18 1546 01/11/18 0401 Tubes & Lines: Solitario Physical Exam General Appearance: Well Developed, No Acute Distress, Comfortable, Obese Throat Throat Exam: Oral Mucosa [place] & Moist Pulmonary Resp Exam: Breath Sounds Equal, No Distress, Rhonchi, Decreased Bases, Diminished Breath Sounds Cardiology CV Exam: Good Perfusion, Irregular, Tachycardia Gastrointestinal/Abdomen GI Exam: Soft, Non-Tender, Bowel Sounds Present Musculoskeletal MS Exam: Joints Intact, Normal Tone, Unable to Ambulate Integumentary Skin Exam: Clear, Warm, Dry, Intact Extremeties Extremities Exam: Pedal Pulses Palpable, Moderate Edema, Dependent Edema Neurologic Neuro Exam: Awake Psychiatric Psych Exam: Appropriate Responses VTE Prophylaxis Device: SCDs Assessment/Plan Discussed Condition With: Patient Assessment Summary: FREDDY/Acute Renal Failure, Fluid/Volume Overload Problem List: (1) FREDDY (acute kidney injury) ICD Codes: N17.9 - Acute kidney failure, unspecified Plan: Her best creatinine at discharge was 1.2 FREDDY likely due to ATN secondary to hypoperfusion injury, also due to sepsis with UTI. Now she is on vancomycin, monitor drug levels carefully Creatinine is now 2.9, has decrease in Hco3. She is non oliguric on Lasix TID. continue Dialysis is not imminent at this time. She may not do well given comorbidities and chronic hypotension. Follow urine output and BMP. Avoid Nephrotoxins, will add NaHco3 if Hco3 is not better. (2) Respiratory failure ICD Codes: J96.90 - Respiratory failure, unspecified, unspecified whether with hypoxia or hypercapnia Plan: s/p intubation, s/p 2nd bronchoscopy with suctioning/bronchial washing first bronchoscopy with multiple mucous plugs identified and suctioned. Also has tracheomalacia and bronchomalacia due for trach/PEG today with bronch (3) UTI (urinary tract infection) ICD Codes: N39.0 - Urinary tract infection, site not specified Plan: ID is following. ON vancomycin IV Has MDRO Klebsiella Sp. Contact precautions (4) Pneumonia ICD Codes: J18.9 - Pneumonia, unspecified organism Status: Acute Plan: See above. ID is following. On IV Vanco. follow drug levels. Blood cultures show O[place]IA SPP (5) Anemia ICD Codes: D64.9 - Anemia, unspecified Plan: Given one unit 01/07, Hb improved No evidence of iron deficiency Monitor hemoglobin (6) C. difficile colitis ICD Codes: A04.72 - Enterocolitis due to Clostridium difficile, not specified as recurrent Plan: Tested Nov 22, has been on treatment since then. Consider stopping and monitoring off PO vancomycin (currently taper) Contact precautions. (7) Afib ICD Codes: I48.91 - Unspecified atrial fibrillation Status: Chronic Plan: rate improved On PO Cardizem and PO metoprolol (hold PRN hypotension) (8) Hypernatremia ICD Codes: E87.0 - Hyperosmolality and hypernatremia Plan: Improved Plan Problem Qualifiers (1) Afib: Qualified Codes: I48.2 - Chronic atrial fibrillation Shey Marcelino MD Jan 12, 2018 13:00
[2018-01-12] MEDS: ACETAMINOPHEN/HYDROcodone 325 MG/5 MG TAB PO PRN (13:36)
--- NOTE | 2018-01-12 15:32 | HHI.CCPN ---
Subjective Remarks/Hospital Course This is a 67-year-old female. Date of admission 12/13/2017. Past medical history includes elevated BMI, chronic asthma on chronic oxygen, atrial fibrillation/rate controlled, hypertension dyslipidemia. Today, patient presents to [facility] emergency department after being found unresponsive at the residential. She was just discharged from the hospital 12/10/2017 from [facility]. She is morbidly obese with multiple severe chronic illnesses and was both in respiratory distress and decreased responsiveness at the same time. She was noted to be hypoxic with saturations in the e 80s with nasal cannula. Was brought in on BiPAP. Accu-Chek was in the 30s when paramedics found her. Initial GCS was reported as 3. She received some D10 through a right arm PICC line but upon arrival staff felt that the PICC line was not working properly. Patient cannot provide any history or review of systems. She arrives critically ill Patient received D50 and a central line in the right internal jugular was placed by ED physician as no significant access was available. Chest x-ray revealed no acute cardiopulmonary findings. After being placed on BiPAP and receiving glucose patient's mentation is much improved and likely can be removed in the ICU. Less confused when evaluated in the ED. UA is positive. Previous history of Pseudomonas sensitive to aztreonam 12/14: Currently resting in bed in no acute distress on 3 L nasal cannula. Overnight on BiPAP/Venturi mask currently on 3 L nasal cannula. Difficult to arouse but once arousable does follow commands in all 4 extremities but weakly. Blood sugar 135. ABG currently pending 12/15: Afebrile. Resting in bed on nasal cannula. Arousable and following commands. Ill-definition due to hypo-tension. I will place arterial line secondary to body habitus. She does not appear septic. She is more awake and alert and attentive today as compared to yesterday. 12/16: Alert and oriented 3, responding to questions appropriately. Arterial line inability to play secondary to body habitus. Patient remained on phenylephrine during the night but now map remains less than 60 will resume phenylephrine infusion, and initiate Midodrine. 12/17: Hemodynamically stable. Phenylephrine infusion off since last night. MAP 80's. Patient alert and oriented, tolerating diet/breakfast. 12/18: Late entry note. Hemodynamically stable. Decrease FiO2 requirements currently on 2 L nasal cannula O2 saturation 97-98 %. RECONSULT 12/19: Patient became hemodynamically unstable this afternoon requiring reinitiation of phenylephrine infusion currently at 70 mcgs/minute. 12/20: Patient became somnolent last evening noted respiratory acidosis around 2 AM. Patient placed back on BiPAP. ID has been consulted for MDR Klebsiella. Patient awake and alert this afternoon, and denies pain. 12/21: Respiratory status much improved, and to remain on BiPAP at night while sleeping. ABGs improved. Patient hemodynamically stable no vasopressor requirements at this time. IV fluids discontinued. Patient tolerating a diet. 12/22: Patient remains a respiratory acidosis, slightly more lethargic today. Patient placed on BiPAP with exception of meals today. Repeat ABG pending this afternoon 12/23: ABG's and neuro status unchanged. Patient remains on BiPAP with exception of meals. Repeat ABG pending this afternoon. Ammonia level ordered. 12/24 Patient is on BIPAP 15/ with 40% . In Afib with RVR 12/25 No events overnight. Remains on BIPAP. Started on Lasix drip per renal 20mg /hr 12/26: Patient remains on BiPAP lethargic. Air entry is diminished on the left side. Chest x-ray shows complete whiteout on the left side with mediastinal shift to the left indicating mucus plugging and left lung collapse. Will proceed with emergency intubation and bronchoscopy (I discussed with Dr. Baca -he will do bronchoscopy at 11:30 AM today) 12/27: Intubated yesterday for severe left lung atelectasis. Underwent bronchoscopy by Dr. Baca. Bronchoscopy showed tracheomalacia and bronchomalacia involving right mainstem bronchi, left mainstem and left upper lobe bronchi. Significant thick mucoid secretions in right upper lobe bronchi, left upper bronchus and also left lower lobe. Moderate endobronchitis. Chest x -ray shows moderate improvement in left upper lobe but persistent dense consolidation middle and lower lung zones. Check CT of the chest stat today 12/28: Afebrile. FiO2 at 30% awake alert and awake. Plan extubation today passes parameters.. 12/29: Afebrile. Extubated yesterday without complications to BiPAP currently at 12/5 at 35%. Tolerated taking pills yesterday. Somewhat lethargic this a.m. but this appears to be her baseline 12/30: Afebrile. Currently on room air. Tolerating diet. Remove central line today if furosemide drip changed to 40 mg IV [address] Archer. 12/31 Patient is on 3L oxygen. Awake, alert. Afebrile. Off Lasix drip. 01/01 No events overnight. On 3L oxygen. Off BIPAP. Afebrile. 321: Patient has diminished breath sounds left lung, and the left lung is is rc out on CXR with midline shift indicating complete atelectasis. I discussed with her need for bronchoscopy following intubation. Patient is willing for intubation and bronchoscopy. She does not want trach IF she can be extubated, if not extubated in 4-5 days patient is willing to get trach. I gave her the option for palliative care and comfort measures which patient refused. Discussed with Dr. Michelle who is covering fro Dr. Baca 01/03: Patient was intubated yesterday for almost complete left lung collapse. Had bronchoscopy and large amount of thick mucoid secretions removed from left upper and left lower lobe bronchi. Patient has severe bronchomalacia and bronchial narrowing involving left upper and lower lobe bronchi. Currently using large tidal volumes and high PEEP in an attempt to open up the lung. Patient may need permanent trach. Requiring 40 mcg/min of Ion-Synephrine 01/04: Patient remains intubated sedated but wakes up easily. Chest x-ray today shows improved aeration of the left upper and middle lung west, dense consolidation persists left lower lobe. Start weaning PEEP to 10, reduce tidal volumes to 550-600. Initiate vent weaning trials in 24 hours 01/05: still intubated and sedated. peep 8. off pathway. 01/06: failing weaning attempts. patient had requested 1 additional weaning attempt prior to tracheostomy, but I do not see this as a realistic possibility. 01/07: Chest x-ray today shows complete opacification of the left lung field again. An entry diminished on the left side on exam. Unable to wean to extubate. General surgery consulted for watery discussed with Dr. Coley. Discussed with ID Dr. Cartagena re: [place] bacteremia. Repeat cultures, completed IV vanc before 01/08: Remains intubated sedated. Plan is for OR trach tomorrow followed by bronchoscopy after trach placement by Dr. Baca. Hemoglobin 8.2 unit of PRBC yesterday 01/09: Abruptly dropped BP to 70's, 500 ml fluid bolus given and started on 50 mcg/min of Ion-Synephrine. Due to hypotension planned or trach was canceled by Dr. Coley. Chest x-ray continues to show left-sided atelectasis. Dr. Lutz planning to bronch after trach 01/10: plan for trach tomorrow. no changes. no improvements. Subjective 01/11: s/p trach today. still sedated from anesthesia. no changes. will need long -term acute care facility, likely Sunday once trach more secure. 01/12: still slow vent wean. will require LTAC. no other changes or improvements. Objective Vital Signs Date Time Temp Pulse Resp B/P (MAP) Pulse Ox O2 Delivery O2 Flow Rate FiO2 01/12/18 15:10 100 40 01/12/18 14:00 94 01/12/18 14:00 16 151/77 (101) 01/12/18 08:00 98.6 Intake and Output 01/12/18 01/12/18 01/12/18 07:59 15:59 23:59 Intake Total 0 ml Output Total 680 ml Balance -680 ml Result Diagram: 01/11/18 1546 01/11/18 0401 Other Results Microbiology Date/Time Source Procedure Growth Status 01/09/18 16:45 Urine Catheterized Urine Urine Culture - Final Enterococcus Faecium Vre Yuly [place] Complete Laboratory Tests Test 01/11/18 19:38 Blood Gas Puncture Site LT RADIAL Blood Gas Patient Temperature 98.6 Blood Gas HCO3 17 mmol/L (22-26) Blood Gas Base Excess -7.2 mmol/L (-2-2) Blood Gas Oxygen Saturation 97 % (90-100) Arterial Blood pH 7.37 (7.380-7.420) Arterial Blood Partial Pressure CO2 31 mmHg (38-42) Arterial Blood Partial Pressure O2 167 mmHg (61-120) Arterial Blood Oxygen Content 11.6 Vol % (12.0-20.0) Arterial Blood Carboxyhemoglobin 1.4 % (0-4) Arterial Blood Methemoglobin 1.3 % (0-2) Blood Gas Hemoglobin 8.3 G/DL (12.0-16.0) Oxygen Delivery Device VENTILATOR Blood Gas Ventilator Setting SEE COMMENTS Blood Gas Inspired Oxygen 40 % Imaging Last Impressions Chest X-Ray 12/29/17 0600 Signed Impressions: Service Date/Time: Friday, December 29, 2017 03:16 - CONCLUSION: 1. Improving aeration in the right base with persistent left basilar consolidation/ effusion. Stable cardiomegaly. 2. Interval removal of the endotracheal and nasogastric tubes. Jakob Plunkett MD Chest CT 12/27/17 0000 Signed Impressions: Service Date/Time: December 10:29 - CONCLUSION: 1. Basilar atelectasis and small pleural effusions, increased from November 26. Mild perihilar groundglass opacity present most characteristic of minimal pulmonary edema. 2. Support apparatus as above. Moderate coronary calcifications. Sachin Gonzalez MD Abdomen/Pelvis CT 12/20/17 0000 Signed Impressions: Service Date/Time: December 21:20 - CONCLUSION: Stable appearance to the CT abdomen/pelvis were compared to 11/26/17. Right double-J stent in place, multiple gallstones, left renal mass, left lateral ventral hernia. Dorian Vasuqez MD Upper Extremity Ultrasound 12/13/17 0000 Signed Impressions: Service Date/Time: December 13:43 - CONCLUSION: 1. No deep venous thrombosis in the left upper extremity. 2. Superficial thrombosis of the right cephalic vein. El Nuñez MD Lower Extremity Ultrasound 12/13/17 0000 Signed Impressions: Service Date/Time: December 14:26 - CONCLUSION: Normal examination. Domingo Calderon MD Head CT 12/13/17 0000 Signed Impressions: Service Date/Time: December 13:30 - CONCLUSION: Normal examination. Domingo Calderon MD Objective Remarks GENERAL: 67-year-old female lying in bed, sedated SKIN: Warm and dry. Lower extremity venous stasis changes HEAD: Atraumatic. Normocephalic. EYES: Pupils equal and round about 3 mm bilaterally and reactive. ENT: No nasal bleeding or discharge. fresh trach in place, minimal blood around trach. NECK: Trachea midline. No JVD. CARDIOVASCULAR: IRR. Distant heart tones. RESPIRATORY: Air entry significantly diminished left lung west GASTROINTESTINAL: Abdomen soft, obese, nontender. MUSCULOSKELETAL: Extremities with 1+ bilateral upper and lower extremity edema NEUROLOGICAL: Wakes up easily while on sedation. Moves extremities follows commands A/P Assessment and Plan Neuro/Psych: Metabolic encephalopathy -improved Chronic benzodiazepine use Depression disorder NOS Diabetic neuropathy Chronic pain syndrome with chronic narcotic use Propofol for sedation, daily sedation vacation Continue hydrocodone/acetaminophen 5/325 1 tablet every 6 hours as needed pain Continue sertraline 100 mg p.o. daily for depression, pregabalin 75 mg p.o. daily for peripheral neuropathy CT brain 12/13 revealed no acute intracranial findings Acetaminophen 650 mg p.o. every 6 hours as needed fever Alprazolam 1 mg twice daily as needed anxiety-hold while intubated CV: Atrial fibrillation with RVR, now rate controlled Hypertension, now hypotensive Fluid overload Holding Lopressor and Cardizem for borderline low BP. Ion-Synephrine started to maintain map above 65 Monitor HR and BP keep MAP>65mmHg 2D echocardiogram 12/02 - EF 50-55%. The left atrial size is mildly dilated. The right atrial size is moderately dilated. Trace TR Xarelto on hold due to worsening renal failure. IV heparin Resp: Acute hypoxic, hypercapnic respiratory failure Recurrent left lung collapse/mucus plugging Bronchomalacia, with left airway narrowing and collapse APOLONIA/OHS History recurrent MRSA pneumonia Status post intubation and bronchoscopy 12/26/2017 and extubated 12/28, bronchoscopy showed thick mucoid secretions in left upper lobe left lower lobe and right upper lobe Significant tracheomalacia and bronchomalacia involving the right and left main stem bronchi Now with recurrent collapse of the left lung. Status post intubation and bronchoscopy 01/02/2018, similar findings as above CXR 01/07 showing near complete opacification of the left lung wset Tracheostomy planned for today postponed due to hypotension, discussed with Dr. Coley Patient requested to be weaned one more time prior to proceeding with tracheostomy, but unable to wean due to recurrent collapse Albuterol/ipratropium aerosols every 4 hours with albuterol aerosols every 2 hours as needed dyspnea. Mucomyst Continue budesonide 0.5 mg/2 mL 1 inhalation s every 12 hours. Continue Prednisone 20mg BID Dr. Poon pulmonary following. s/p trach 01/[address] Coley GI: BMI greater than 40 Gastroesophageal reflux disease Hypoalbuminemia Tube feeds with Nepro. Famotidine for GI prophylaxis. Patient is on famotidine 20 mg p.o. daily at home. Docusate sodium/senna 1 tablet twice daily for bowel regimen. Patient is on senna 8.6 mg twice daily at home Having regular bowel movement. Continue ondansetron 4 mg every 6 hours as needed nausea Renal//FEN: Acute on chronic kidney disease J stent placement Monitor renal function, I/O's, avoid nephrotoxins Solitario catheter to maintain patency with recent pyelonephritis/GJ placement. On Lasix 40mg TID, Hold Lasix due to hypotension Outpatient J stent removal should be scheduled by urology that was placed during last hospitalization 12/02 12/20 CT abd/pelvis: No hydronephrosis Continue tamsulosin 0.4 mg daily Endo: Diabetes mellitus Acute hypoglycemia-resolved Sliding scale insulin with Novolin R with Accu-Cheks to maintain euglycemia every 6 hours low regimen Heme: Normocytic anemia Chronic Rivaroxaban use Right cephalic vein superficial thrombus Monitor CBC Xarelto on hold due to worsening renal failure. IV heparin ID: Urinary tract infection/MDR Klebsiella History of MRSA History of C. difficile Blood cx 12/20 [place] sp Currently on PO vancomycin , ceftazidime/avibactam. IV Vanc per ID repeat cx for [place] bacteremia Monitor for signs of infections (Fever, WBC) Pertinent cultures Urine Legionella pneumococcal antigens negative Urine culture 12/13 Klebsiella ESBL positive Blood culture 12/20: OERSKOVIA SPP Access -Peripheral IV's Prophylaxis -GI -famotidine -DVT -Xarelto on hold due to worsening renal failure. IV heparin ordered but on hold due to anemia and planned trach IMPRESSION: deconditioned. morbidly obese. multiple failed attempts at weaning. will require LTAC level care. Christ Mullins MD Jan 12, 2018 15:32
--- NOTE | 2018-01-12 16:17 | HHI.GIFU ---
Subjective Remarks Patient's resting in the bed eyes closed but responds to verbal stimuli Smiling and attempting to mouth words Patient now has tracheostomy PEG tube without any erythema or edema Hemoglobin 7.8 Afebrile (Soledad Kerr) Objective Vitals I&O Vital Signs Date Time Temp Pulse Resp B/P (MAP) Pulse Ox O2 Delivery O2 Flow Rate FiO2 01/12/18 15:10 100 40 01/12/18 14:00 94 01/12/18 14:00 94 16 151/77 (101) 100 01/12/18 13:01 93 21 129/61 (83) 100 01/12/18 13:01 93 01/12/18 13:00 92 18 100 01/12/18 13:00 92 01/12/18 12:00 88 01/12/18 12:00 40 01/12/18 12:00 88 17 138/70 (92) 100 01/12/18 11:55 100 40 01/12/18 11:00 92 01/12/18 11:00 92 19 118/75 (89) 100 01/12/18 10:01 89 01/12/18 10:01 89 16 109/53 (71) 100 01/12/18 10:00 92 17 137/60 (85) 100 01/12/18 10:00 92 01/12/18 09:01 103 20 137/60 (85) 100 01/12/18 09:01 103 01/12/18 09:00 97 01/12/18 09:00 97 22 99 01/12/18 08:48 100 40 01/12/18 08:01 86 01/12/18 08:01 86 19 143/68 (93) 100 01/12/18 08:00 98.6 96 16 137/63 (87) 100 01/12/18 08:00 96 01/12/18 08:00 40 01/12/18 06:00 80 01/12/18 04:35 100 40 01/12/18 04:00 82 01/12/18 04:00 40 01/12/18 04:00 98.2 82 20 116/61 (79) 100 01/12/18 02:00 89 01/12/18 01:02 100 40 01/12/18 00:00 40 01/12/18 00:00 98.0 94 22 135/91 (106) 01/12/18 00:00 94 01/11/18 22:00 87 01/11/18 20:03 100 40 01/11/18 20:00 40 01/11/18 20:00 94 01/11/18 20:00 97.6 94 19 134/73 (93) 100 01/11/18 18:00 96 01/11/18 16:58 100 40 01/11/18 16:39 100 40 I/O 01/11/18 01/11/18 01/11/18 01/12/18 01/12/18 01/12/18 07:00 15:00 23:00 07:00 15:00 23:00 Intake Total 550 ml 900 ml 0 ml Output Total 650 ml 650 ml 680 ml Balance -100 ml 250 ml -680 ml IV Total 250 ml Tube Feeding 250 ml 200 ml 0 ml Tube Irrigant 100 ml Other 50 ml 600 ml Output Urine Total 600 ml 600 ml 650 ml Stool Total 50 ml 20 ml 30 ml Estimated Blood Loss 30 ml Laboratory Laboratory Tests Test 01/11/18 19:38 01/12/18 03:09 Blood Gas Puncture Site LT RADIAL Blood Gas Patient Temperature 98.6 Blood Gas HCO3 17 Blood Gas Base Excess -7.2 Blood Gas Oxygen Saturation 97 Arterial Blood pH 7.37 Arterial Blood Partial Pressure CO2 31 Arterial Blood Partial Pressure O2 167 Arterial Blood Oxygen Content 11.6 Arterial Blood Carboxyhemoglobin 1.4 Arterial Blood Methemoglobin 1.3 Blood Gas Hemoglobin 8.3 Oxygen Delivery Device VENTILATOR Blood Gas Ventilator Setting SEE COMMENTS Blood Gas Inspired Oxygen 40 Random Vancomycin Level 21.6 Date/Time Source Procedure Growth Status 01/09/18 18:14 Blood Peripheral Aerobic Blood Culture - Preliminary NO GROWTH IN 3 DAYS Resulted 01/09/18 18:14 Blood Peripheral Anaerobic Blood Culture - Preliminary NO GROWTH IN 3 DAYS Resulted 01/05/18 12:45 Stool Stool Stool Occult Blood (NATALIE) - Final HEMOCCULT NEGATIVE Complete 01/03/18 18:23 Sputum Expectorated Sputum Gram Stain - Final Complete 01/03/18 18:23 Sputum Expectorated Sputum Sputum Culture - Final LIGHT GROWTH NORMAL RESPIRATORY BERNA Complete 01/09/18 16:45 Urine Catheterized Urine Urine Culture - Final Enterococcus Faecium Vre Yuly Glabrata Complete Imaging Last Impressions Chest X-Ray 01/12/18 0600 Signed Impressions: Service Date/Time: Friday, January 12, 2018 04:41 - CONCLUSION: Stable consolidation throughout the left lung with a small infiltrate at the right lung base unchanged. Domingo Calderon MD Chest CT 12/27/17 0000 Signed Impressions: Service Date/Time: December 10:29 - CONCLUSION: 1. Basilar atelectasis and small pleural effusions, increased from November 26. Mild perihilar groundglass opacity present most characteristic of minimal pulmonary edema. 2. Support apparatus as above. Moderate coronary calcifications. Sachin Gonzalez MD Abdomen/Pelvis CT 12/20/17 0000 Signed Impressions: Service Date/Time: December 21:20 - CONCLUSION: Stable appearance to the CT abdomen/pelvis were compared to 11/26/17. Right double-J stent in place, multiple gallstones, left renal mass, left lateral ventral hernia. Dorian Vasquez MD Upper Extremity Ultrasound 12/13/17 0000 Signed Impressions: Service Date/Time: December 13:43 - CONCLUSION: 1. No deep venous thrombosis in the left upper extremity. 2. Superficial thrombosis of the right cephalic vein. El Nuñez MD Lower Extremity Ultrasound 12/13/17 0000 Signed Impressions: Service Date/Time: December 14:26 - CONCLUSION: Normal examination. Domingo Calderon MD Head CT 12/13/17 0000 Signed Impressions: Service Date/Time: December 13:30 - CONCLUSION: Normal examination. Domingo Calderon MD Physical Exam HEENT: Normocephalic; atraumatic morbid obesity, tracheostomy CHEST: Tracheostomy now, ventilator management, diminished breath sounds at her bases CARDIAC: Regular rate and rhythm ABDOMEN: Morbidly obese, large, soft, bowel sounds soft but active. Flexiseal SKIN: Normal; no rash; no jaundice. (Soledad Kerr) Assessment and Plan Plan Assessment: - Consult for PEG placement- currently receiving TF through [facility]- Nepro at 45 mL/ hr - Acute hypercapnic resp failure- failed BiPaP- imaging revealed almost complete left lung collapse S/P bronchoscopy- consulted for tracheostomy placement. - Hypotensive- previously on Ion, not currently on any pressors, BP stable - Morbid obesity, asthma, HTN, DM, dyslipidemia, GERD, a-fib, and CKD per attending (01/09) Pt became hypotensive yesterday requiring a Ion gtt. Per RN was only needing to be on drip for about 3-4 hours. PEG and trach were cancelled for yesterday. Spoke with Reyna TIAN with states they are planning on doing trach at 1 pm tomorrow. Will schedule PEG for tomorrow as well 01/11/18, PEG tube about complications. Currently no dressing. Staff is going to put a lightweight 4 x 4 for protection. No erythema or edema Patient is alert and shakes her head no to vomiting, occasional nausea, no abdominal pain. Hemoglobin 7.8 no obvious bleeding. [employer] Supervisor made recommendations for tube feeding. Nepro, goal rate 45 cc an hour Plan May use PEG tube for medications Nutritional consult , written on 01/11/18 to start Nepro 10 cc an hour, goal rate 45 cc an hour. Monitor residuals every 4 hours may increase feedings 10 cc per day as tolerated to goal rate Flush tube with 50 cc of water every 4-6 hours Always flush tube after feedings Apply abdominal binder as necessary Clamp G-tube after use and flush PPI Anti-emetics as needed Further recommendations based on clinical course Pt has been seen and examined by myself and Dr. Pascal and this note is written on his behalf (Soledad Kerr) Physician Comments Patient seen and examined Agree with above Continue with current supportive care Monitor lab We will sign off (Wayne Pascal MD) Soledad Kerr Jan 12, 2018 16:17 Wayne Pascal MD Jan 12, 2018 17:55
--- NOTE | 2018-01-12 17:52 | HHI.PR ---
Subjective Remarks SEDATED ON THE VENTILATOR TRACHEOSTOMY DONE Objective Vital Signs Date Time Temp Pulse Resp B/P (MAP) Pulse Ox O2 Delivery O2 Flow Rate FiO2 01/12/18 15:10 100 40 01/12/18 14:00 94 01/12/18 14:00 94 16 151/77 (101) 100 01/12/18 13:01 93 21 129/61 (83) 100 01/12/18 13:01 93 01/12/18 13:00 92 18 100 01/12/18 13:00 92 01/12/18 12:00 88 01/12/18 12:00 40 01/12/18 12:00 88 17 138/70 (92) 100 01/12/18 11:55 100 40 01/12/18 11:00 92 01/12/18 11:00 92 19 118/75 (89) 100 01/12/18 10:01 89 01/12/18 10:01 89 16 109/53 (71) 100 01/12/18 10:00 92 17 137/60 (85) 100 01/12/18 10:00 92 01/12/18 09:01 103 20 137/60 (85) 100 01/12/18 09:01 103 01/12/18 09:00 97 01/12/18 09:00 97 22 99 01/12/18 08:48 100 40 01/12/18 08:01 86 01/12/18 08:01 86 19 143/68 (93) 100 01/12/18 08:00 98.6 96 16 137/63 (87) 100 01/12/18 08:00 96 01/12/18 08:00 40 01/12/18 06:00 80 01/12/18 04:35 100 40 01/12/18 04:00 82 01/12/18 04:00 40 01/12/18 04:00 98.2 82 20 116/61 (79) 100 01/12/18 02:00 89 01/12/18 01:02 100 40 01/12/18 00:00 40 01/12/18 00:00 98.0 94 22 135/91 (106) 01/12/18 00:00 94 01/11/18 22:00 87 01/11/18 20:03 100 40 01/11/18 20:00 40 01/11/18 20:00 94 01/11/18 20:00 97.6 94 19 134/73 (93) 100 01/11/18 18:00 96 I/O 01/11/18 01/11/18 01/11/18 01/12/18 01/12/18 01/12/18 07:00 15:00 23:00 07:00 15:00 23:00 Intake Total 550 ml 900 ml 0 ml Output Total 650 ml 650 ml 680 ml Balance -100 ml 250 ml -680 ml IV Total 250 ml Tube Feeding 250 ml 200 ml 0 ml Tube Irrigant 100 ml Other 50 ml 600 ml Output Urine Total 600 ml 600 ml 650 ml Stool Total 50 ml 20 ml 30 ml Estimated Blood Loss 30 ml Result Diagram: 01/11/18 1546 01/11/18 0401 Objective Remarks GENERAL: SKIN: Warm and dry. HEAD: Atraumatic. Normocephalic. EYES: Pupils equal and round. No scleral icterus. No injection or drainage. ENT: No nasal bleeding or discharge. Mucous membranes pink and moist. NECK: Trachea midline. No JVD. CARDIOVASCULAR: Regular rate and rhythm. RESPIRATORY: No accessory muscle use. Clear to auscultation. Breath sounds equal bilaterally. GASTROINTESTINAL: Abdomen soft, non-tender, nondistended. Hepatic and splenic margins not palpable. MUSCULOSKELETAL: Extremities without clubbing, cyanosis, or edema. No obvious deformities. NEUROLOGICAL: Awake and alert. No obvious cranial nerve deficits. Motor grossly within normal limits. Five out of 5 muscle strength in the arms and legs. Normal speech. PSYCHIATRIC: Appropriate mood and affect; insight and judgment normal. Assessment and Plan Assessment and Plan IMPEWSSION RESPIRATORY FAILURE MORBID OBESITY S/P TRACHEOSTOMY PLAN VENT SUPPORT PULM TOILET WEAN TOLERATED Jose David Main MD Jan 12, 2018 17:52
[2018-01-12] MEDS: FAMOTIDINE 20 MG TAB PO SCH (21:14)
[2018-01-12] MEDS: CHLORHEXIDINE GLUCONATE 2 % 1 PACK (2 CLOTHS) TOP SCH (23:12)
[2018-01-13] VITALS (33 sets, daily range): BP systolic 122–172; BP diastolic 67–107; PULSE 86–114; RESP 16–29; TEMP 98.2–99.1; O2SAT 84–100
[2018-01-13] MEDS: ARTIFICIAL TEARS OPTH SOLN 15 ML BTL EACH EYE SCH ×3 (05:44→20:58)
[2018-01-13 05:59] LABS: HEMATOCRIT 22.7 % (35.0-46.0); HEMOGLOBIN 7.5 GM/DL (11.6-15.3); MEAN CELL VOLUME 91.3 FL (80.0-100.0); MEAN CORPUSCULAR HEMOGLOBIN 30.2 PG (27.0-34.0); MEAN CORPUSCULAR HGB CONC 33.1 % (32.0-36.0); MEAN PLATELET VOLUME 9.7 FL (7.0-11.0); PLATELET COUNT 101 TH/MM3 (150-450); RED BLOOD COUNT 2.48 MIL/MM3 (4.00-5.30); RED CELL DISTRIBUTION WIDTH 21.6 % (11.6-17.2); WHITE BLOOD COUNT 6.4 TH/MM3 (4.0-11.0)
[2018-01-13 06:13] LABS: BICARBONATE 16.8 MEQ/L (21.0-32.0); CALCIUM 8.1 MG/DL (8.5-10.1); CREATININE 3.22 MG/DL (0.50-1.00)
[2018-01-13] MEDS: RESP: BUDESONIDE 0.5 MG/2 ML NEB NEB SCH ×2 (07:39→20:07)
[2018-01-13] MEDS: INSULIN NovoLIN REGULAR SUPPLEMENTAL SCALE SQ SCH ×4 (08:00→20:57)
--- NOTE | 2018-01-13 08:32 | HHI.IDPN ---
Subjective Subjective Remarks Patient is a 67-year-old female, resides in the senior care, brought into the hospital after she was found unresponsive. She had a recent hospitalization where she was diagnosed to have sepsis related to complicated UTI. During that hospitalization she underwent stent placement. She also had C. difficile colitis during that admission. Patient states that she uses a BiPAP machine in the senior care usually when she is sleeping. She is nonambulatory. Denies any significant cough or congestion. No chest pain. There was no mention of any fever or chills or sweats. When she also came to the hospital this time she was on pressors for hypotension. She improved clinically and her hemodynamics stabilize. However yesterday she went hypotensive again, an infectious disease consultation has been requested to evaluate the patient. ID following for KPC positive UTI, Pneumonia. Patient known to me from prior admissions with prior MDR UTI and Cdiff last admission. Notes reviewed D/W RN S/P trach 01/11 CXR remains same, with white out L On the vent Not SOB BP good temps ok No new (+) BC UC with VRE and C glabrata Creatinine rising Has PIV Antibiotics PO Vanco - tapering IV Vanco - intermittent dosing Current Medications Medications (Trade) Dose Ordered Sig/Mirta Route Start Time Stop Time Status Last Admin (NS Flush) 2 ml UNSCH PRN IV FLUSH 12/13/17 13:30 (NS Flush) 2 ml BID IV FLUSH 12/13/17 21:00 01/12/18 21:14 (Zofran Inj) 4 mg Q6H PRN IV PUSH 12/13/17 13:30 01/04/18 05:39 Miscellaneous Information 1 Q361D XX 12/13/17 13:30 12/13/17 13:30 (Chlorhexidine 2% Cloth) Taper DAILY@04 TOP 12/14/17 04:00 12/10/18 03:59 01/09/18 03:49 (Chlorhexidine 2% Cloth) 3 pack UNSCH PRN TOP 12/13/17 13:30 (Zelda-Colace) 1 tab BID PO 12/13/17 21:00 01/12/18 21:14 (Milk Of Magnesia Liq) 30 ml Q12H PRN PO 12/13/17 13:30 (Senokot) 17.2 mg Q12H PRN PO 12/13/17 13:30 (Dulcolax Supp) 10 mg DAILY PRN RECTAL 12/13/17 13:30 (Lactulose Liq) 30 ml DAILY PRN PO 12/13/17 13:30 (Xanax) 1 mg BID PRN PO 12/13/17 13:30 (Pulmicort Respule Neb) 0.5 mg Q12HR NEB NEB 12/13/17 20:00 01/13/18 07:39 (Lyrica) 75 mg DAILY PO 12/14/17 09:00 01/12/18 08:38 (Zoloft) 100 mg DAILY PO 12/14/17 09:00 01/12/18 08:31 (Vitamin C) 500 mg BID PO 12/13/17 21:00 01/12/18 21:14 (Lactinex) 1 tab TID PO 12/13/17 18:00 01/12/18 17:42 (D50w (Vial) Inj) 50 ml UNSCH PRN IV PUSH 12/13/17 13:30 12/19/17 22:25 (Glucagon Inj) 1 mg UNSCH PRN OTHER 12/13/17 13:30 (Pill Splitter) 1 ea UNSCH PRN OTHER 12/13/17 13:30 (Xarelto) 10 mg DAILY PO 12/14/17 09:00 Future Hold 01/04/18 07:59 (Mycostatin Powder) 1 applic Q12HR TOPICAL 12/13/17 21:00 01/12/18 21:14 (Trandate Inj) 10 mg Q1HR PRN IV PUSH 12/13/17 17:00 (Nitroglycerin 2% Oint) 2 inch Q6HR PRN TOPICAL 12/13/17 18:00 (Apresoline Inj) 10 mg Q1HR PRN IV PUSH 12/13/17 17:00 (Brethine Inj) 1 mg UNSCH PRN SQ 12/15/17 10:15 (Bactroban Nasal 2% Oint) Taper BID EACH NARE 12/15/17 21:00 12/11/18 20:59 01/12/18 21:14 (Cardizem) 60 mg Q6HR PO 12/24/17 12:00 Future Hold 01/01/18 01:50 (Peridex 0.12% Liq) 15 ml BID@08,20 MT 12/26/17 20:00 01/12/18 08:30 (Tears Naturale Opth Soln) 1 drop Q8HR EACH EYE 12/28/17 14:00 01/13/18 05:44 (Albuterol Neb) 2.5 mg Q2HR NEB PRN NEB 12/28/17 11:30 01/11/18 20:03 (Flomax) 0.4 mg DAILY PO 12/29/17 09:00 01/12/18 08:31 (Tylenol 650 Mg/ 20 ml Liq) 650 mg Q6H PRN PO 12/28/17 11:45 (NovoLIN R SUPPLEMENTAL SCALE) 1 ACHS SQ 12/29/17 12:00 01/08/18 17:14 (Pepcid) 20 mg HS PO 12/29/17 21:00 01/12/18 21:14 (Dupree 5-325 Mg) 1 tab Q4H PRN PO 12/29/17 08:30 01/12/18 13:36 Phenylephrine HCl 40 mg/Dextrose 500 ml @ 30 mls/hr TITRATE PRN IV 01/02/18 12:00 01/09/18 11:30 Propofol 100 ml @ 4.176 mls/ hr TITRATE PRN IV 01/02/18 11:30 01/09/18 01:30 Heparin Sodium/ Dextrose 250 ml @ 10 mls/hr TITRATE PRN IV 01/04/18 10:45 01/10/18 23:34 (Lasix Inj) 40 mg TID IV PUSH 01/04/18 18:00 Future hold 01/12/18 17:42 (Deltasone) 30 mg DAILY PO 01/09/18 09:00 01/12/18 08:32 (Lopressor) 12.5 mg BID PO 01/10/18 10:00 01/12/18 21:14 (Vancomycin 25 Mg/ml Liq) 125 mg DAILY PO 01/11/18 09:00 01/12/18 08:40 Lines Line no evidence of infection Past Medical History Chronic respiratory failure secondary to APOLONIA, OHS and bronchial asthma Atrial fibrillation rate controlled Hypertension Dyslipidemia Gastroesophageal reflux disease Elevated BMI greater than 50 Recurrent MRSA pneumonia Depression Constipation Past Surgical History JJ stent placement by urology Hiatal hernia surgery Appendectomy Percutaneous tracheostomy by Dr. Mullins since decannulated Allergies: Coded Allergies: penicillin G (Unverified Allergy, Severe, 05/29/17) Objective . Vital Signs Date Time Temp Pulse Resp B/P (MAP) Pulse Ox O2 Delivery O2 Flow Rate FiO2 01/13/18 06:00 94 01/13/18 04:00 40 01/13/18 04:00 98.2 88 17 164/77 (106) 100 01/13/18 04:00 88 01/13/18 03:57 100 40 01/13/18 02:00 93 01/13/18 01:08 100 40 01/13/18 00:00 92 01/13/18 00:00 98.6 92 16 163/84 (110) 100 01/13/18 00:00 40 01/12/18 22:00 94 01/12/18 20:00 40 01/12/18 20:00 96 01/12/18 20:00 98.5 96 16 142/77 (98) 100 01/12/18 19:46 100 100 01/12/18 19:01 93 01/12/18 19:01 93 16 148/69 (95) 100 01/12/18 19:00 98 16 148/70 (96) 100 01/12/18 19:00 98 01/12/18 18:01 102 19 148/70 (96) 100 01/12/18 18:01 102 01/12/18 18:00 101 01/12/18 18:00 101 23 157/71 (99) 100 01/12/18 17:01 96 20 157/71 (99) 100 01/12/18 17:01 96 01/12/18 17:00 89 01/12/18 17:00 89 17 100 01/12/18 16:01 92 01/12/18 16:01 92 16 156/72 (100) 100 01/12/18 16:00 94 01/12/18 16:00 97.9 94 18 151/77 (101) 100 01/12/18 16:00 40 01/12/18 15:10 100 40 01/12/18 14:00 94 01/12/18 14:00 94 16 151/77 (101) 100 01/12/18 13:01 93 21 129/61 (83) 100 01/12/18 13:01 93 01/12/18 13:00 92 18 100 01/12/18 13:00 92 01/12/18 12:00 88 01/12/18 12:00 40 01/12/18 12:00 88 17 138/70 (92) 100 01/12/18 11:55 100 40 01/12/18 11:00 92 01/12/18 11:00 92 19 118/75 (89) 100 01/12/18 10:01 89 01/12/18 10:01 89 16 109/53 (71) 100 01/12/18 10:00 92 17 137/60 (85) 100 01/12/18 10:00 92 01/12/18 09:01 103 20 137/60 (85) 100 01/12/18 09:01 103 01/12/18 09:00 97 01/12/18 09:00 97 22 99 01/12/18 08:48 100 40 . Laboratory Tests Test 01/11/18 15:46 01/13/18 03:42 White Blood Count 11.5 TH/MM3 6.4 TH/MM3 Red Blood Count 2.60 MIL/MM3 2.48 MIL/MM3 Hemoglobin 7.8 GM/DL 7.5 GM/DL Hematocrit 23.5 % 22.7 % Mean Corpuscular Volume 90.2 FL 91.3 FL Mean Corpuscular Hemoglobin 29.9 PG 30.2 PG Mean Corpuscular Hemoglobin Concent 33.1 % 33.1 % Red Cell Distribution Width 21.9 % 21.6 % Platelet Count 42 TH/MM3 101 TH/MM3 Mean Platelet Volume 10.2 FL 9.7 FL Neutrophils (%) (Auto) 95.9 % Lymphocytes (%) (Auto) 1.5 % Monocytes (%) (Auto) 1.5 % Eosinophils (%) (Auto) 0.1 % Basophils (%) (Auto) 1.0 % Neutrophils # (Auto) 11.0 TH/MM3 Lymphocytes # (Auto) 0.2 TH/MM3 Monocytes # (Auto) 0.2 TH/MM3 Eosinophils # (Auto) 0.0 TH/MM3 Basophils # (Auto) 0.1 TH/MM3 CBC Comment AUTO DIFF Differential Total Cells Counted 100 Neutrophils % (Manual) 95 % Band Neutrophils % 1 % Lymphocytes % 3 % Neutrophils # (Manual) 11.2 TH/MM3 Promyelocytes 1 % Differential Comment FINAL DIFF MANUAL Platelet Estimate LOW Platelet Morphology Comment ENLARGED Laboratory Tests Test 01/13/18 03:42 Blood Urea Nitrogen 84 MG/DL Creatinine 3.22 MG/DL Random Glucose 73 MG/DL Calcium Level 8.1 MG/DL Sodium Level 142 MEQ/L Potassium Level 4.1 MEQ/L Chloride Level 110 MEQ/L Carbon Dioxide Level 16.8 MEQ/L Anion Gap 15 MEQ/L Estimat Glomerular Filtration Rate 14 ML/MIN Imaging Chest X-Ray 01/07/18 0000 Signed Impressions: Service Date/Time: Sunday, January 07, 2018 06:51 - CONCLUSION: 1. Worsening opacification of the left chest with volume loss likely secondary to worsening atelectasis. 2. Cardiomegaly. 3. Hazy density at the mid and lower right lung likely related to underlying edema and mild effusion. Perry Frye MD Chest CT 12/27/17 0000 Signed Impressions: Service Date/Time: December 10:29 - CONCLUSION: 1. Basilar atelectasis and small pleural effusions, increased from November 26. Mild perihilar groundglass opacity present most characteristic of minimal pulmonary edema. 2. Support apparatus as above. Moderate coronary calcifications. Sachin Gonzalez MD Abdomen/Pelvis CT 12/20/17 0000 Signed Impressions: Service Date/Time: December 21:20 - CONCLUSION: Stable appearance to the CT abdomen/pelvis were compared to 11/26/17. Right double-J stent in place, multiple gallstones, left renal mass, left lateral ventral hernia. Dorian Vasquez MD Upper Extremity Ultrasound 12/13/17 0000 Signed Impressions: Service Date/Time: December 13:43 - CONCLUSION: 1. No deep venous thrombosis in the left upper extremity. 2. Superficial thrombosis of the right cephalic vein. El Nuñez MD Lower Extremity Ultrasound 12/13/17 0000 Signed Impressions: Service Date/Time: December 14:26 - CONCLUSION: Normal examination. Domingo Calderon MD Head CT 12/13/17 0000 Signed Impressions: Service Date/Time: December 13:30 - CONCLUSION: Normal examination. Domingo Calderon MD Chest X-Ray 01/04/18 0600 Signed Impressions: Service Date/Time: Thursday, January 04, 2018 04:15 - CONCLUSION: 1. Interval improvement in opacity in the left lung with aeration now noted in the upper lobe and perihilar region. Dense consolidation remains in the left lung base. 2. The patient is rotated to the left. Chintan Marshall MD Chest CT 12/27/17 0000 Signed Impressions: Service Date/Time: December 10:29 - CONCLUSION: 1. Basilar atelectasis and small pleural effusions, increased from November 26. Mild perihilar groundglass opacity present most characteristic of minimal pulmonary edema. 2. Support apparatus as above. Moderate coronary calcifications. Sachin Gonzalez MD Abdomen/Pelvis CT 12/20/17 0000 Signed Impressions: Service Date/Time: December 21:20 - CONCLUSION: Stable appearance to the CT abdomen/pelvis were compared to 11/26/17. Right double-J stent in place, multiple gallstones, left renal mass, left lateral ventral hernia. Dorian Vasquez MD Upper Extremity Ultrasound 12/13/17 0000 Signed Impressions: Service Date/Time: December 13:43 - CONCLUSION: 1. No deep venous thrombosis in the left upper extremity. 2. Superficial thrombosis of the right cephalic vein. El Nuñez MD Lower Extremity Ultrasound 12/13/17 0000 Signed Impressions: Service Date/Time: December 14:26 - CONCLUSION: Normal examination. Domingo Calderon MD Head CT 12/13/17 0000 Signed Impressions: Service Date/Time: December 13:30 - CONCLUSION: Normal examination. Domingo Calderon MD Physical Exam GENERAL: on the vent, NAD SKIN: Cool and dry. No generalized rash. edematous HEAD: Atraumatic. Normocephalic. No temporal wasting, or tenderness. EYES: [place] conjunctiva. No petechia or hemorrhage. Pupils equal, round and reactive to light. No scleral icterus. EARS, NOSE AND THROAT: Nose without bleeding or purulent nasal discharge. Moist mucosa. NECK: Trach site ok CARDIOVASCULAR: Regular rate and rhythm. No murmurs, rubs or gallops heard RESPIRATORY: Decreased breath sounds R base, decreased whole L side ABDOMEN: Soft, obese, no reaction to palpation, nondistended. Edematous Bowel sounds present and normoactive. EXTREMITIES: No clubbing, cyanosis. Prominent pitting diffuse edema. No calf tenderness. . NEUROLOGICAL: Opens eyes spontaneously. Moves all 4 extremities. PSYCH: Unable to assess LINE: Line no evidence of infection Assessment & Plan Remarks IMPRESSION UTI, with Klebsiella Kleb MDR CRE ESBL+ - S/P Rx Hypotension, ?new infection, BP better, off pressors - ?lung - ?fungemia, has been on steroids and different Abx [place] species (GNR bacteremia): history of prior lines. 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
[2018-01-13] MEDS: SODIUM CHLORIDE 0.9% FLUSH 10 ML FLUSH IV FLUSH SCH ×2 (09:00→20:58)
[2018-01-13] MEDS: VANCOMYCIN 25 MG/ML SOLN 100 ML BOTTLE PO SCH (09:00)
--- NOTE | 2018-01-13 09:03 | RADRPT ---
EXAM DATE/TIME: 01/13/2018 07:56 [facility] COMPARISON: CHEST SINGLE AP, January 12, 2018, 4:41. INDICATIONS : Shortness of breath. MEDICAL HISTORY : Hypertension. Diabetes mellitus type II. SURGICAL HISTORY : None. ENCOUNTER: Subsequent ACUITY: 3 days PAIN SCORE: Non-responsive. LOCATION: Bilateral chest FINDINGS: A single AP portable semierect view the chest was obtained. The patient is mildly rotated to the left . The tracheostomy tube remains in place. The left hemithorax remains completely opacified and there is volume loss and mediastinal shift to the left. There is mild patchy opacity at the right lung base . The heart size is not visualized. The bony thorax is intact. Overlying electrocardiogram leads. CONCLUSION: 1. Stable appearance with complete opacification of left hemithorax and volume loss. 2. Mild patchy opacity remains at the right lung base. Chintan Marshall MD on January 13, 2018 at 9:00 Board Certified Radiologist. This report was verified electronically.
--- NOTE | 2018-01-13 09:09 | HHI.CCPN ---
Subjective Remarks/Hospital Course This is a 67-year-old female. Date of admission 12/13/2017. Past medical history includes elevated BMI, chronic asthma on chronic oxygen, atrial fibrillation/rate controlled, hypertension dyslipidemia. Today, patient presents to [facility] emergency department after being found unresponsive at the senior living. She was just discharged from the hospital 12/10/2017 from [facility]. She is morbidly obese with multiple severe chronic illnesses and was both in respiratory distress and decreased responsiveness at the same time. She was noted to be hypoxic with saturations in the e 80s with nasal cannula. Was brought in on BiPAP. Accu-Chek was in the 30s when paramedics found her. Initial GCS was reported as 3. She received some D10 through a right arm PICC line but upon arrival staff felt that the PICC line was not working properly. Patient cannot provide any history or review of systems. She arrives critically ill Patient received D50 and a central line in the right internal jugular was placed by ED physician as no significant access was available. Chest x-ray revealed no acute cardiopulmonary findings. After being placed on BiPAP and receiving glucose patient's mentation is much improved and likely can be removed in the ICU. Less confused when evaluated in the ED. UA is positive. Previous history of Pseudomonas sensitive to aztreonam 12/14: Currently resting in bed in no acute distress on 3 L nasal cannula. Overnight on BiPAP/Venturi mask currently on 3 L nasal cannula. Difficult to arouse but once arousable does follow commands in all 4 extremities but weakly. Blood sugar 135. ABG currently pending 12/15: Afebrile. Resting in bed on nasal cannula. Arousable and following commands. Ill-definition due to hypo-tension. I will place arterial line secondary to body habitus. She does not appear septic. She is more awake and alert and attentive today as compared to yesterday. 12/16: Alert and oriented 3, responding to questions appropriately. Arterial line inability to play secondary to body habitus. Patient remained on phenylephrine during the night but now map remains less than 60 will resume phenylephrine infusion, and initiate Midodrine. 12/17: Hemodynamically stable. Phenylephrine infusion off since last night. MAP 80's. Patient alert and oriented, tolerating diet/breakfast. 12/18: Late entry note. Hemodynamically stable. Decrease FiO2 requirements currently on 2 L nasal cannula O2 saturation 97-98 %. RECONSULT 12/19: Patient became hemodynamically unstable this afternoon requiring reinitiation of phenylephrine infusion currently at 70 mcgs/minute. 12/20: Patient became somnolent last evening noted respiratory acidosis around 2 AM. Patient placed back on BiPAP. ID has been consulted for MDR Klebsiella. Patient awake and alert this afternoon, and denies pain. 12/21: Respiratory status much improved, and to remain on BiPAP at night while sleeping. ABGs improved. Patient hemodynamically stable no vasopressor requirements at this time. IV fluids discontinued. Patient tolerating a diet. 12/22: Patient remains a respiratory acidosis, slightly more lethargic today. Patient placed on BiPAP with exception of meals today. Repeat ABG pending this afternoon 12/23: ABG's and neuro status unchanged. Patient remains on BiPAP with exception of meals. Repeat ABG pending this afternoon. Ammonia level ordered. 12/24 Patient is on BIPAP 15/ with 40% . In Afib with RVR 12/25 No events overnight. Remains on BIPAP. Started on Lasix drip per renal 20mg /hr 12/26: Patient remains on BiPAP lethargic. Air entry is diminished on the left side. Chest x-ray shows complete whiteout on the left side with mediastinal shift to the left indicating mucus plugging and left lung collapse. Will proceed with emergency intubation and bronchoscopy (I discussed with Dr. Baca -he will do bronchoscopy at 11:30 AM today) 12/27: Intubated yesterday for severe left lung atelectasis. Underwent bronchoscopy by Dr. Baca. Bronchoscopy showed tracheomalacia and bronchomalacia involving right mainstem bronchi, left mainstem and left upper lobe bronchi. Significant thick mucoid secretions in right upper lobe bronchi, left upper bronchus and also left lower lobe. Moderate endobronchitis. Chest x -ray shows moderate improvement in left upper lobe but persistent dense consolidation middle and lower lung zones. Check CT of the chest stat today 12/28: Afebrile. FiO2 at 30% awake alert and awake. Plan extubation today passes parameters.. 12/29: Afebrile. Extubated yesterday without complications to BiPAP currently at 12/5 at 35%. Tolerated taking pills yesterday. Somewhat lethargic this a.m. but this appears to be her baseline 12/30: Afebrile. Currently on room air. Tolerating diet. Remove central line today if furosemide drip changed to 40 mg IV [address] Archer. 12/31 Patient is on 3L oxygen. Awake, alert. Afebrile. Off Lasix drip. 01/01 No events overnight. On 3L oxygen. Off BIPAP. Afebrile. 321: Patient has diminished breath sounds left lung, and the left lung is is rc out on CXR with midline shift indicating complete atelectasis. I discussed with her need for bronchoscopy following intubation. Patient is willing for intubation and bronchoscopy. She does not want trach IF she can be extubated, if not extubated in 4-5 days patient is willing to get trach. I gave her the option for palliative care and comfort measures which patient refused. Discussed with Dr. Michelle who is covering fro Dr. Baca 01/03: Patient was intubated yesterday for almost complete left lung collapse. Had bronchoscopy and large amount of thick mucoid secretions removed from left upper and left lower lobe bronchi. Patient has severe bronchomalacia and bronchial narrowing involving left upper and lower lobe bronchi. Currently using large tidal volumes and high PEEP in an attempt to open up the lung. Patient may need permanent trach. Requiring 40 mcg/min of Ion-Synephrine 01/04: Patient remains intubated sedated but wakes up easily. Chest x-ray today shows improved aeration of the left upper and middle lung west, dense consolidation persists left lower lobe. Start weaning PEEP to 10, reduce tidal volumes to 550-600. Initiate vent weaning trials in 24 hours 01/05: still intubated and sedated. peep 8. off pathway. 01/06: failing weaning attempts. patient had requested 1 additional weaning attempt prior to tracheostomy, but I do not see this as a realistic possibility. 01/07: Chest x-ray today shows complete opacification of the left lung field again. An entry diminished on the left side on exam. Unable to wean to extubate. General surgery consulted for watery discussed with Dr. Coley. Discussed with ID Dr. Cartagena re: [place] bacteremia. Repeat cultures, completed IV vanc before 01/08: Remains intubated sedated. Plan is for OR trach tomorrow followed by bronchoscopy after trach placement by Dr. Baca. Hemoglobin 8.2 unit of PRBC yesterday 01/09: Abruptly dropped BP to 70's, 500 ml fluid bolus given and started on 50 mcg/min of Ion-Synephrine. Due to hypotension planned or trach was canceled by Dr. Coley. Chest x-ray continues to show left-sided atelectasis. Dr. Lutz planning to bronch after trach 01/10: plan for trach tomorrow. no changes. no improvements. Subjective 01/11: s/p trach today. still sedated from anesthesia. no changes. will need long -term acute care facility, likely Sunday once trach more secure. 01/12: still slow vent wean. will require LTAC. no other changes or improvements. 01/13: Remains intubated weeks obesely. Air entry remains diminished on the left lung west. BUN 84 creatinine worsening to 3.22, urine output 1.3 L in 24 hours. Add bicarb p.o. due to metabolic acidosis. May need hemodialysis deferred to nephrology Objective Vital Signs Date Time Temp Pulse Resp B/P (MAP) Pulse Ox O2 Delivery O2 Flow Rate FiO2 01/13/18 06:00 94 01/13/18 04:00 40 01/13/18 04:00 98.2 17 164/77 (106) 100 Intake and Output 01/13/18 01/13/18 01/14/18 08:00 16:00 00:00 Intake Total 200 ml Output Total 775 ml Balance -575 ml Result Diagram: 01/13/18 0342 01/13/18 0342 Imaging Last Impressions Chest X-Ray 12/29/17 0600 Signed Impressions: Service Date/Time: Friday, December 29, 2017 03:16 - CONCLUSION: 1. Improving aeration in the right base with persistent left basilar consolidation/ effusion. Stable cardiomegaly. 2. Interval removal of the endotracheal and nasogastric tubes. Jakob Plunkett MD Chest CT 12/27/17 0000 Signed Impressions: Service Date/Time: December 10:29 - CONCLUSION: 1. Basilar atelectasis and small pleural effusions, increased from November 26. Mild perihilar groundglass opacity present most characteristic of minimal pulmonary edema. 2. Support apparatus as above. Moderate coronary calcifications. Sachin Gonzalez MD Abdomen/Pelvis CT 12/20/17 0000 Signed Impressions: Service Date/Time: December 21:20 - CONCLUSION: Stable appearance to the CT abdomen/pelvis were compared to 11/26/17. Right double-J stent in place, multiple gallstones, left renal mass, left lateral ventral hernia. Dorian Vasquez MD Upper Extremity Ultrasound 12/13/17 0000 Signed Impressions: Service Date/Time: December 13:43 - CONCLUSION: 1. No deep venous thrombosis in the left upper extremity. 2. Superficial thrombosis of the right cephalic vein. El Nuñez MD Lower Extremity Ultrasound 12/13/17 0000 Signed Impressions: Service Date/Time: December 14:26 - CONCLUSION: Normal examination. Domingo Calderon MD Head CT 12/13/17 0000 Signed Impressions: Service Date/Time: December 13:30 - CONCLUSION: Normal examination. Domingo Calderon MD Objective Remarks GENERAL: 67-year-old female lying in bed, sedated SKIN: Warm and dry. Lower extremity venous stasis changes HEAD: Atraumatic. Normocephalic. EYES: Pupils equal and round about 3 mm bilaterally and reactive. ENT: No nasal bleeding or discharge. fresh trach in place, minimal blood around trach. NECK: Trachea midline. No JVD. CARDIOVASCULAR: IRR. Distant heart tones. RESPIRATORY: Air entry significantly diminished left lung west, normal air entry in the right lung GASTROINTESTINAL: Abdomen soft, obese, nontender. MUSCULOSKELETAL: Extremities with 1+ bilateral upper and lower extremity edema NEUROLOGICAL: Wakes up easily while on sedation. Moves extremities follows commands A/P Assessment and Plan Neuro/Psych: Metabolic encephalopathy -improved Chronic benzodiazepine use Depression disorder NOS Diabetic neuropathy Chronic pain syndrome with chronic narcotic use Propofol for sedation, daily sedation vacation Continue hydrocodone/acetaminophen 5/325 1 tablet every 6 hours as needed pain Continue sertraline 100 mg p.o. daily for depression, pregabalin 75 mg p.o. daily for peripheral neuropathy CT brain 12/13 revealed no acute intracranial findings Acetaminophen 650 mg p.o. every 6 hours as needed fever Alprazolam 1 mg twice daily as needed anxiety-hold while intubated CV: Atrial fibrillation with RVR, now rate controlled Hypertension, now hypotensive Fluid overload Holding Lopressor and Cardizem for borderline low BP. Ion-Synephrine as needed to maintain map above 65 2D echocardiogram 12/02 - EF 50-55%. The left atrial size is mildly dilated. The right atrial size is moderately dilated. Trace TR Xarelto on hold due to worsening renal failure. IV heparin Resp: Acute hypoxic, hypercapnic respiratory failure Recurrent left lung collapse/mucus plugging Bronchomalacia, with left airway narrowing and collapse APOLONIA/OHS History recurrent MRSA pneumonia s/p intubation and bronchoscopy 12/26/2017 and extubated 12/28, bronchoscopy showed thick mucoid secretions in left upper lobe left lower lobe and right upper lobe Significant tracheomalacia and bronchomalacia involving the right and left main stem bronchi Now with recurrent collapse of the left lung. Status post intubation and bronchoscopy 01/02/2018, similar findings as above CXR 01/07 showing near complete opacification of the left lung west s/p Tracheostomy 01/[address] Coley Albuterol/ipratropium aerosols every 4 hours with albuterol aerosols every 2 hours as needed dyspnea. Mucomyst Continue budesonide 0.5 mg/2 mL 1 inhalation s every 12 hours. Continue Prednisone 20mg BID Dr. Poon pulmonary following. GI: BMI greater than 40 Gastroesophageal reflux disease Hypoalbuminemia Tube feeds with Nepro. Famotidine for GI prophylaxis. Patient is on famotidine 20 mg p.o. daily at home. Docusate sodium/senna 1 tablet twice daily for bowel regimen. Patient is on senna 8.6 mg twice daily at home Having regular bowel movement. Continue ondansetron 4 mg every 6 hours as needed nausea Renal//FEN: Acute on chronic kidney disease J stent placement Solitario catheter to maintain patency with recent pyelonephritis/GJ placement. On Lasix 40mg TID, continue per nephro, BUN/creatinine worsening today 84/3.22 urine output adequate May need hemodialysis, defer to Nephrology Outpatient J stent removal should be scheduled by urology that was placed during last hospitalization 12/02 12/20 CT abd/pelvis: No hydronephrosis Continue tamsulosin 0.4 mg daily Monitor renal function, I/O's, avoid nephrotoxins Endo: Diabetes mellitus Acute hypoglycemia-resolved Sliding scale insulin with Novolin R with Accu-Cheks to maintain euglycemia every 6 hours low regimen Heme: Normocytic anemia Chronic Rivaroxaban use Right cephalic vein superficial thrombus Monitor CBC Xarelto on hold due to worsening renal failure. IV heparin ID: Urinary tract infection/MDR Klebsiella History of MRSA History of C. difficile Blood cx 12/20 [place] sp Currently on PO vancomycin , completed ceftazidime/avibactam. IV Vanc per ID repeat cx for [place] bacteremia-completed course Monitor for signs of infections (Fever, WBC) Pertinent cultures: Urine Legionella pneumococcal antigens negative Urine culture 12/13 Klebsiella ESBL positive Blood culture 12/20: OERSKOVIA SPP Access -Peripheral IV's Prophylaxis -GI -famotidine -DVT -Xarelto on hold due to worsening renal failure. IV heparin ordered but on hold due to anemia and planned trach IMPRESSION: deconditioned. morbidly obese. multiple failed attempts at weaning. will require LTAC level care. Worsening renal function - seems like will require HD in the near future Yoandy Amador MD Jan 13, 2018 09:09
[2018-01-13] MEDS: DOCUSATE SODIUM 50 MG/SENNA 8.6 MG TAB PO SCH ×2 (09:27→20:57)
[2018-01-13] MEDS: ASCORBIC ACID 500 MG TAB PO SCH ×2 (09:27→20:57)
[2018-01-13] MEDS: LACTOBACILLUS ACIDOPHILUS TAB PO SCH ×3 (09:28→18:13)
[2018-01-13] MEDS: SODIUM BICARBONATE 650 MG TAB PO SCH ×2 (09:28→20:57)
[2018-01-13] MEDS: METOPROLOL TARTRATE 25 MG TAB PO SCH ×2 (09:28→20:57)
[2018-01-13] MEDS: PREGABALIN 75 MG CAP PO SCH (09:28)
[2018-01-13] MEDS: MUPIROCIN 2% OINT 1 APPLIC/GM SYR EACH NARE SCH ×2 (09:28→20:57)
[2018-01-13] MEDS: TAMSULOSIN HCL 0.4 MG CAP PO SCH (09:28)
[2018-01-13] MEDS: predniSONE 10 MG TAB PO SCH (09:28)
[2018-01-13] MEDS: FUROSEMIDE 40 MG/4 ML VIAL IV PUSH SCH ×3 (09:28→18:13)
[2018-01-13] MEDS: NYSTATIN 100,000 U/GM PWD 15 GM BTL TOPICAL SCH ×2 (09:30→20:58)
[2018-01-13] MEDS: SERTRALINE HCL 100 MG TAB PO SCH (09:30)
[2018-01-13] MEDS: CHLORHEXIDINE 0.12% (ORAL KIT) 15 ML CUP MT SCH ×2 (09:32→20:00)
--- NOTE | 2018-01-13 16:31 | HHI.PR ---
Subjective Remarks SEDATED ON THE VENTILATOR TRACHEOSTOMY IN PLACE Objective Vital Signs Date Time Temp Pulse Resp B/P (MAP) Pulse Ox O2 Delivery O2 Flow Rate FiO2 01/13/18 16:03 100 40 01/13/18 12:08 94 40 01/13/18 12:01 88 01/13/18 12:01 88 16 138/67 (90) 100 01/13/18 12:00 92 17 100 01/13/18 12:00 92 01/13/18 12:00 40 01/13/18 11:01 90 01/13/18 11:01 90 16 123/88 (100) 100 01/13/18 11:00 96 16 100 01/13/18 11:00 96 01/13/18 10:01 99 01/13/18 10:01 99 16 143/67 (92) 100 01/13/18 10:00 100 01/13/18 10:00 100 16 100 01/13/18 09:09 94 40 01/13/18 09:03 98 16 163/70 (101) 100 01/13/18 09:03 98 01/13/18 09:01 114 17 172/107 (128) 100 01/13/18 09:01 114 01/13/18 09:00 95 16 100 01/13/18 09:00 95 01/13/18 08:01 107 01/13/18 08:01 107 17 166/87 (113) 85 01/13/18 08:00 98.6 111 18 164/77 (106) 84 01/13/18 08:00 111 01/13/18 08:00 40 01/13/18 06:00 94 01/13/18 04:00 40 01/13/18 04:00 98.2 88 17 164/77 (106) 100 01/13/18 04:00 88 01/13/18 03:57 100 40 01/13/18 02:00 93 01/13/18 01:08 100 40 01/13/18 00:00 92 01/13/18 00:00 98.6 92 16 163/84 (110) 100 01/13/18 00:00 40 01/12/18 22:00 94 01/12/18 20:00 40 01/12/18 20:00 96 01/12/18 20:00 98.5 96 16 142/77 (98) 100 3/31/18 19:46 100 100 01/12/18 19:01 93 01/12/18 19:01 93 16 148/69 (95) 100 01/12/18 19:00 98 16 148/70 (96) 100 01/12/18 19:00 98 01/12/18 18:01 102 19 148/70 (96) 100 01/12/18 18:01 102 01/12/18 18:00 101 01/12/18 18:00 101 23 157/71 (99) 100 01/12/18 17:01 96 20 157/71 (99) 100 01/12/18 17:01 96 01/12/18 17:00 89 01/12/18 17:00 89 17 100 I/O 01/12/18 01/12/18 01/12/18 01/13/18 01/13/18 01/13/18 07:00 15:00 23:00 07:00 15:00 23:00 Intake Total 0 ml 910 ml 200 ml Output Total 680 ml 700 ml 775 ml 0 ml Balance -680 ml 210 ml -575 ml 0 ml Tube Feeding 0 ml 10 ml 200 ml Other 900 ml Output Urine Total 650 ml 600 ml 675 ml Stool Total 30 ml 100 ml 100 ml Tube Feeding Residual Discard 0 ml Result Diagram: 01/13/1834101/13/18341 Objective Remarks GENERAL: SKIN: Warm and dry. HEAD: Atraumatic. Normocephalic. EYES: Pupils equal and round. No scleral icterus. No injection or drainage. ENT: No nasal bleeding or discharge. Mucous membranes pink and moist. NECK: Trachea midline. No JVD. CARDIOVASCULAR: Regular rate and rhythm. RESPIRATORY: No accessory muscle use. Clear to auscultation. Breath sounds equal bilaterally. GASTROINTESTINAL: Abdomen soft, non-tender, nondistended. Hepatic and splenic margins not palpable. MUSCULOSKELETAL: Extremities without clubbing, cyanosis, or edema. No obvious deformities. NEUROLOGICAL: Awake and alert. No obvious cranial nerve deficits. Motor grossly within normal limits. Five out of 5 muscle strength in the arms and legs. Normal speech. PSYCHIATRIC: Appropriate mood and affect; insight and judgment normal. Assessment and Plan Assessment and Plan IMPEWSSION RESPIRATORY FAILURE MORBID OBESITY S/P TRACHEOSTOMY PLAN VENT SUPPORT PULM TOILET WEAN TOLERATED Jose David Main MD Jan 13, 2018 16:31
--- NOTE | 2018-01-13 16:39 | HHI.NPPN ---
Subjective Complaints: Shortness of Breath Renal Failure: Acute Additional Remarks Patient is awake, on the vent. not in distress, clinically same. Review of Systems General General Remarks unable to obtain Cardiovascular Cardiac: Edema Objective Data Data 01/13/18 01/14/18 19:00 07:00 Output Total 0 ml Balance 0 ml Tube Feeding Residual Discard 0 ml Vital Signs Date Time Temp Pulse Resp B/P (MAP) Pulse Ox O2 Delivery O2 Flow Rate FiO2 01/13/18 16:03 100 40 01/13/18 12:08 94 40 01/13/18 12:01 88 01/13/18 12:01 88 16 138/67 (90) 100 01/13/18 12:00 92 17 100 01/13/18 12:00 92 01/13/18 12:00 40 01/13/18 11:01 90 01/13/18 11:01 90 16 123/88 (100) 100 01/13/18 11:00 96 16 100 01/13/18 11:00 96 01/13/18 10:01 99 01/13/18 10:01 99 16 143/67 (92) 100 01/13/18 10:00 100 01/13/18 10:00 100 16 100 01/13/18 09:09 94 40 01/13/18 09:03 98 16 163/70 (101) 100 01/13/18 09:03 98 01/13/18 09:01 114 17 172/107 (128) 100 01/13/18 09:01 114 01/13/18 09:00 95 16 100 01/13/18 09:00 95 01/13/18 08:01 107 01/13/18 08:01 107 17 166/87 (113) 85 01/13/18 08:00 98.6 111 18 164/77 (106) 84 01/13/18 08:00 111 01/13/18 08:00 40 01/13/18 06:00 94 01/13/18 04:00 40 01/13/18 04:00 98.2 88 17 164/77 (106) 100 01/13/18 04:00 88 01/13/18 03:57 100 40 01/13/18 02:00 93 01/13/18 01:08 100 40 01/13/18 00:00 92 01/13/18 00:00 98.6 92 16 163/84 (110) 100 01/13/18 00:00 40 01/12/18 22:00 94 01/12/18 20:00 40 01/12/18 20:00 96 01/12/18 20:00 98.5 96 16 142/77 (98) 100 01/12/18 19:46 100 100 01/12/18 19:01 93 01/12/18 19:01 93 16 148/69 (95) 100 01/12/18 19:00 98 16 148/70 (96) 100 01/12/18 19:00 98 01/12/18 18:01 102 19 148/70 (96) 100 01/12/18 18:01 102 01/12/18 18:00 101 01/12/18 18:00 101 23 157/71 (99) 100 01/12/18 17:01 96 20 157/71 (99) 100 01/12/18 17:01 96 01/12/18 17:00 89 01/12/18 17:00 89 17 100 -: 01/13/18 0342 01/13/18 0342 Tubes & Lines: Solitario Physical Exam General Appearance: Well Developed, No Acute Distress, Comfortable, Obese Throat Throat Exam: Oral Mucosa [place] & Moist Pulmonary Resp Exam: Breath Sounds Equal, No Distress, Rhonchi, Decreased Bases, Diminished Breath Sounds Cardiology CV Exam: Good Perfusion, Irregular, Tachycardia Gastrointestinal/Abdomen GI Exam: Soft, Non-Tender, Bowel Sounds Present Musculoskeletal MS Exam: Joints Intact, Normal Tone, Unable to Ambulate Integumentary Skin Exam: Clear, Warm, Dry, Intact Extremeties Extremities Exam: Pedal Pulses Palpable, Moderate Edema, Dependent Edema Neurologic Neuro Exam: Awake Psychiatric Psych Exam: Appropriate Responses VTE Prophylaxis Device: SCDs Assessment/Plan Discussed Condition With: Patient Assessment Summary: FREDDY/Acute Renal Failure, Fluid/Volume Overload Problem List: (1) FREDDY (acute kidney injury) ICD Codes: N17.9 - Acute kidney failure, unspecified Plan: Her best creatinine at discharge was 1.2 FREDDY likely due to ATN secondary to hypoperfusion injury, also due to sepsis with UTI. Now she is on vancomycin, monitor drug levels carefully Creatinine is now 3.2, has decrease in Hco3. She is non oliguric on Lasix TID. continue Dialysis is not imminent at this time. She may not do well given comorbidities and chronic hypotension. Follow urine output and BMP. Avoid Nephrotoxins, started on PO NaHco3 as Hco3 is low. Getting Solitario's now, follow the urine out put and BMP. (2) Respiratory failure ICD Codes: J96.90 - Respiratory failure, unspecified, unspecified whether with hypoxia or hypercapnia Plan: s/p intubation, s/p 2nd bronchoscopy with suctioning/bronchial washing first bronchoscopy with multiple mucous plugs identified and suctioned. Also has tracheomalacia and bronchomalacia due for trach/PEG today with bronch (3) UTI (urinary tract infection) ICD Codes: N39.0 - Urinary tract infection, site not specified Plan: ID is following. ON vancomycin IV Has MDRO Klebsiella Sp. Contact precautions (4) Pneumonia ICD Codes: J18.9 - Pneumonia, unspecified organism Status: Acute Plan: See above. ID is following. On IV Vanco. follow drug levels. Blood cultures show OERSKOVIA SPP (5) Anemia ICD Codes: D64.9 - Anemia, unspecified Plan: Given one unit 01/07, Hb improved No evidence of iron deficiency Monitor hemoglobin (6) C. difficile colitis ICD Codes: A04.72 - Enterocolitis due to Clostridium difficile, not specified as recurrent Plan: Tested Nov 22, has been on treatment since then. Consider stopping and monitoring off PO vancomycin (currently taper) Contact precautions. (7) Afib ICD Codes: I48.91 - Unspecified atrial fibrillation Status: Chronic Plan: rate improved On PO Cardizem and PO metoprolol (hold PRN hypotension) (8) Hypernatremia ICD Codes: E87.0 - Hyperosmolality and hypernatremia Plan: Improved Plan Problem Qualifiers (1) Afib: Qualified Codes: I48.2 - Chronic atrial fibrillation Shey Marcelino MD Jan 13, 2018 16:39
[2018-01-13] MEDS: ACETAMINOPHEN/HYDROcodone 325 MG/5 MG TAB PO PRN (18:12)
[2018-01-13 20:20] LABS: BACTERIA, URINE RARE /hpf; BILIRUBIN, URINE NEG (NEG); BLOOD, URINE NEG (NEG); GLUCOSE,URINE NEG (NEG); KETONE, URINE NEG (NEG); MUCUS URINE FEW /lpf (OCC); NITRITE,URINE NEG (NEG); PH, URINE 5.5 (5.0-8.5); URINE COLOR LIGHT-YELLOW (YELLW/STRAW); URINE LEUKOCYTE ESTERASE LARGE (NEG)
[2018-01-13] MEDS: FAMOTIDINE 20 MG TAB PO SCH (20:57)
[2018-01-14] VITALS (26 sets, daily range): BP systolic 124–151; BP diastolic 59–87; PULSE 90–111; RESP 16–25; TEMP 97.8–98.7; O2SAT 94–100
[2018-01-14] MEDS: CHLORHEXIDINE GLUCONATE 2 % 1 PACK (2 CLOTHS) TOP SCH (03:14)
[2018-01-14] MEDS: ARTIFICIAL TEARS OPTH SOLN 15 ML BTL EACH EYE SCH ×2 (05:39→12:46)
[2018-01-14 06:51] LABS: BICARBONATE 17.6 MEQ/L (21.0-32.0); CALCIUM 8.2 MG/DL (8.5-10.1); CREATININE 3.48 MG/DL (0.50-1.00)
[2018-01-14 07:06] LABS: HEMATOCRIT 24.1 % (35.0-46.0); MEAN CELL VOLUME 88.5 FL (80.0-100.0); MEAN CORPUSCULAR HEMOGLOBIN 29.3 PG (27.0-34.0); MEAN CORPUSCULAR HGB CONC 33.1 % (32.0-36.0); MEAN PLATELET VOLUME 9.6 FL (7.0-11.0); PLATELET COUNT 115 TH/MM3 (150-450); RED BLOOD COUNT 2.73 MIL/MM3 (4.00-5.30); RED CELL DISTRIBUTION WIDTH 20.9 % (11.6-17.2); WHITE BLOOD COUNT 6.2 TH/MM3 (4.0-11.0)
[2018-01-14] MEDS: MUPIROCIN 2% OINT 1 APPLIC/GM SYR EACH NARE SCH (07:57)
[2018-01-14] MEDS: FUROSEMIDE 40 MG/4 ML VIAL IV PUSH SCH (07:57)
[2018-01-14] MEDS: SODIUM CHLORIDE 0.9% FLUSH 10 ML FLUSH IV FLUSH SCH (07:58)
[2018-01-14] MEDS: INSULIN NovoLIN REGULAR SUPPLEMENTAL SCALE SQ SCH ×3 (07:58→17:00)
[2018-01-14] MEDS: PREGABALIN 75 MG CAP PO SCH (07:59)
[2018-01-14] MEDS: CHLORHEXIDINE 0.12% (ORAL KIT) 15 ML CUP MT SCH (07:59)
[2018-01-14] MEDS: TAMSULOSIN HCL 0.4 MG CAP PO SCH (08:00)
[2018-01-14] MEDS: SERTRALINE HCL 100 MG TAB PO SCH (08:00)
[2018-01-14] MEDS: predniSONE 10 MG TAB PO SCH (08:00)
[2018-01-14] MEDS: METOPROLOL TARTRATE 25 MG TAB PO SCH (08:00)
[2018-01-14] MEDS: LACTOBACILLUS ACIDOPHILUS TAB PO SCH ×2 (08:00→12:45)
[2018-01-14] MEDS: DOCUSATE SODIUM 50 MG/SENNA 8.6 MG TAB PO SCH (08:00)
[2018-01-14] MEDS: SODIUM BICARBONATE 650 MG TAB PO SCH (08:00)
[2018-01-14] MEDS: ASCORBIC ACID 500 MG TAB PO SCH (08:01)
[2018-01-14] MEDS: VANCOMYCIN 25 MG/ML SOLN 100 ML BOTTLE PO SCH (08:03)
[2018-01-14] MEDS: NYSTATIN 100,000 U/GM PWD 15 GM BTL TOPICAL SCH (08:04)
[2018-01-14] MEDS: RESP: BUDESONIDE 0.5 MG/2 ML NEB NEB SCH (08:17)
--- NOTE | 2018-01-14 09:59 | HHI.NPPN ---
Subjective Complaints: Shortness of Breath General Problems: Edema Renal Failure: Acute Interval History She is awake. Telling me she is hungry. Tube feeding infusing. Renal function is worse. (Suad Lucas) Review of Systems Cardiovascular Cardiac: Edema (Suad Lucas) Gastrointestinal GI Remarks Hunger (Suad Lucas) Objective Data Data Vital Signs Date Time Temp Pulse Resp B/P (MAP) Pulse Ox O2 Delivery O2 Flow Rate FiO2 01/14/18 09:06 16 01/14/18 08:17 100 40 01/14/18 06:00 107 01/14/18 04:04 100 40 01/14/18 04:00 97 01/14/18 04:00 97.8 97 16 145/63 (90) 100 01/14/18 04:00 40 01/14/18 02:00 93 01/14/18 01:04 100 40 01/14/18 00:00 40 01/14/18 00:00 98.7 94 16 135/71 (92) 94 01/14/18 00:00 94 01/13/18 22:00 92 01/13/18 20:08 100 40 01/13/18 20:00 40 01/13/18 20:00 98.3 98 16 141/85 (103) 100 01/13/18 20:00 98 01/13/18 18:01 101 01/13/18 18:00 100 01/13/18 17:01 106 01/13/18 17:01 106 29 170/77 (108) 01/13/18 17:00 106 16 01/13/18 17:00 106 01/13/18 16:03 100 40 01/13/18 16:01 97 01/13/18 16:01 99.1 97 18 122/82 (95) 100 01/13/18 16:00 40 01/13/18 16:00 98 16 100 01/13/18 16:00 98 01/13/18 15:01 95 01/13/18 15:00 95 01/13/18 14:01 91 01/13/18 14:00 86 01/13/18 12:08 94 40 01/13/18 12:01 88 01/13/18 12:01 88 16 138/67 (90) 100 01/13/18 12:00 92 17 100 01/13/18 12:00 92 01/13/18 12:00 40 01/13/18 11:01 90 01/13/18 11:01 90 16 123/88 (100) 100 01/13/18 11:00 96 16 100 01/13/18 11:00 96 01/13/18 10:01 99 01/13/18 10:01 99 16 143/67 (92) 100 01/13/18 10:00 100 01/13/18 10:00 100 16 100 (Suad Lucas) -: 01/14/18 0444 01/14/18 0444 Microbiology 01/13/18 Urine Culture, Received Pending Imaging Last 72 hours Impressions Chest X-Ray 01/13/18 0000 Signed Impressions: Service Date/Time: Saturday, January 13, 2018 07:56 - CONCLUSION: 1. Stable appearance with complete opacification of left hemithorax and volume loss. 2. Mild patchy opacity remains at the right lung base. Chintan Marshall MD Chest X-Ray 01/12/18 0600 Signed Impressions: Service Date/Time: Friday, January 12, 2018 04:41 - CONCLUSION: Stable consolidation throughout the left lung with a small infiltrate at the right lung base unchanged. Domingo Calderon MD Tubes & Lines: Solitario (Suad Lucas) Physical Exam General Appearance: Well Developed, No Acute Distress, Comfortable, Obese Appearance Remarks awake, obese, trach on vent (Suad Lucas) Throat Throat Exam: Oral Mucosa [place] & Moist (Suad Lucas) Neck Neck Remarks Trach (Suad Lucas) Pulmonary Resp Exam: Breath Sounds Equal, No Distress, Rhonchi, Decreased Bases, Diminished Breath Sounds Resp Remarks minimal air movement on left (Suad Lucas) Cardiology CV Exam: Good Perfusion, Irregular, Tachycardia (Suad Lucas) Gastrointestinal/Abdomen GI Exam: Soft, Non-Tender, Bowel Sounds Present GI Remarks super morbidly obese (Suad Lucas) Musculoskeletal MS Exam: Joints Intact, Normal Tone, Unable to Ambulate (Suad Lucas) Integumentary Skin Exam: Clear, Warm, Dry, Intact (Suad Lucas) Extremeties Extremities Exam: Pedal Pulses Palpable, Moderate Edema, Dependent Edema (Suad Lucas) Neurologic Neuro Exam: Awake (Suad Lucas) Psychiatric Psych Exam: Appropriate Responses (Suad Lucas) VTE Prophylaxis Device: SCDs (Suad Lucas) Assessment/Plan Discussed Condition With: Patient Assessment Summary: FREDDY/Acute Renal Failure, Fluid/Volume Overload Problem List: (1) FREDDY (acute kidney injury) ICD Codes: N17.9 - Acute kidney failure, unspecified Plan: Her best creatinine at discharge was 1.2 FREDDY likely due to ATN secondary to hypoperfusion injury, also due to sepsis with UTI. Previously on vancomycin, that has been stopped On oral bicarbonate for metabolic acidosisi Reduce lasix to BID, 40 gm Dialysis is not imminent at this time. She may not do well given comorbidities and chronic hypotension. Follow urine output and BMP. Avoid Nephrotoxins, Obtain daily labs (2) Respiratory failure ICD Codes: J96.90 - Respiratory failure, unspecified, unspecified whether with hypoxia or hypercapnia Plan: s/p multiple bronchoscopy with suctioning/bronchial washing She has tracheomalacia and bronchomalacia trach/PEG placed 01/11 On Prednisone, attempt to taper (3) UTI (urinary tract infection) ICD Codes: N39.0 - Urinary tract infection, site not specified Plan: ID is following. Off vancomycin IV Has MDRO Klebsiella Sp. Contact precautions (4) Pneumonia ICD Codes: J18.9 - Pneumonia, unspecified organism Status: Acute Plan: See above. ID is following. Blood cultures show OERSKOVIA SPP (5) Anemia ICD Codes: D64.9 - Anemia, unspecified Plan: Given one unit 01/07, Hb improved No evidence of iron deficiency Monitor hemoglobin (6) Afib ICD Codes: I48.91 - Unspecified atrial fibrillation Status: Chronic Plan: rate improved On PO Cardizem and PO metoprolol (hold PRN hypotension) (7) Hypernatremia ICD Codes: E87.0 - Hyperosmolality and hypernatremia Plan: Improved (8) C. difficile colitis ICD Codes: A04.72 - Enterocolitis due to Clostridium difficile, not specified as recurrent Plan: Tested Nov 22, has been on treatment since then. On PO vancomycin taper Contact precautions. Plan (Suad Lucas) Plan patient was seen and examined. We may need to start dialysis. Agree with above assessment and plan. Prognosis is poor. (Mohinder Lopez MD) Problem Qualifiers (1) Afib: Qualified Codes: I48.2 - Chronic atrial fibrillation Suad Lucas Jan 14, 2018 09:59 Mohinder Lopez MD Jan 14, 2018 10:43
--- NOTE | 2018-01-14 10:09 | HHI.IDPN ---
Subjective Subjective Remarks Patient is a 67-year-old female, resides in the detention, brought into the hospital after she was found unresponsive. She had a recent hospitalization where she was diagnosed to have sepsis related to complicated UTI. During that hospitalization she underwent stent placement. She also had C. difficile colitis during that admission. Patient states that she uses a BiPAP machine in the detention usually when she is sleeping. She is nonambulatory. Denies any significant cough or congestion. No chest pain. There was no mention of any fever or chills or sweats. When she also came to the hospital this time she was on pressors for hypotension. She improved clinically and her hemodynamics stabilize. However yesterday she went hypotensive again, an infectious disease consultation has been requested to evaluate the patient. ID following for KPC positive UTI, Pneumonia. Patient known to me from prior admissions with prior MDR UTI and Cdiff last admission. Notes reviewed On the vent S/P trach 01/11 CXR 01/13 remains same, with white out L Not SOB BP good temps ok Solitario changed 01/13 Repeat UA better 01/09 UC with VRE and C glabrata Creatinine rising Has PIV Antibiotics PO Vanco - tapering Current Medications Medications (Trade) Dose Ordered Sig/Mirta Route Start Time Stop Time Status Last Admin (NS Flush) 2 ml UNSCH PRN IV FLUSH 12/13/17 13:30 (NS Flush) 2 ml BID IV FLUSH 12/13/17 21:00 01/14/18 07:58 (Zofran Inj) 4 mg Q6H PRN IV PUSH 12/13/17 13:30 01/04/18 05:39 Miscellaneous Information 1 Q361D XX 12/13/17 13:30 12/13/17 13:30 (Chlorhexidine 2% Cloth) Taper DAILY@04 TOP 12/14/17 04:00 12/10/18 03:59 01/09/18 03:49 (Chlorhexidine 2% Cloth) 3 pack UNSCH PRN TOP 12/13/17 13:30 (Zelda-Colace) 1 tab BID PO 12/13/17 21:00 01/14/18 08:00 (Milk Of Magnesia Liq) 30 ml Q12H PRN PO 12/13/17 13:30 (Senokot) 17.2 mg Q12H PRN PO 12/13/17 13:30 (Dulcolax Supp) 10 mg DAILY PRN RECTAL 12/13/17 13:30 (Lactulose Liq) 30 ml DAILY PRN PO 12/13/17 13:30 (Xanax) 1 mg BID PRN PO 12/13/17 13:30 (Pulmicort Respule Neb) 0.5 mg Q12HR NEB NEB 12/13/17 20:00 01/14/18 08:17 (Lyrica) 75 mg DAILY PO 12/14/17 09:00 01/14/18 07:59 (Zoloft) 100 mg DAILY PO 12/14/17 09:00 01/14/18 08:00 (Vitamin C) 500 mg BID PO 12/13/17 21:00 01/14/18 08:01 (Lactinex) 1 tab TID PO 12/13/17 18:00 01/14/18 08:00 (D50w (Vial) Inj) 50 ml UNSCH PRN IV PUSH 12/13/17 13:30 12/19/17 22:25 (Glucagon Inj) 1 mg UNSCH PRN OTHER 12/13/17 13:30 (Pill Splitter) 1 ea UNSCH PRN OTHER 12/13/17 13:30 (Xarelto) 10 mg DAILY PO 12/14/17 09:00 Future Hold 01/04/18 07:59 (Mycostatin Powder) 1 applic Q12HR TOPICAL 12/13/17 21:00 01/14/18 08:04 (Trandate Inj) 10 mg Q1HR PRN IV PUSH 12/13/17 17:00 (Nitroglycerin 2% Oint) 2 inch Q6HR PRN TOPICAL 12/13/17 18:00 (Apresoline Inj) 10 mg Q1HR PRN IV PUSH 12/13/17 17:00 (Brethine Inj) 1 mg UNSCH PRN SQ 12/15/17 10:15 (Bactroban Nasal 2% Oint) Taper BID EACH NARE 12/15/17 21:00 12/11/18 20:59 01/13/18 20:57 (Cardizem) 60 mg Q6HR PO 12/24/17 12:00 Future Hold 01/01/18 01:50 (Peridex 0.12% Liq) 15 ml BID@08,20 MT 12/26/17 20:00 01/14/18 07:59 (Tears Naturale Opth Soln) 1 drop Q8HR EACH EYE 12/28/17 14:00 01/14/18 05:39 (Albuterol Neb) 2.5 mg Q2HR NEB PRN NEB 12/28/17 11:30 01/11/18 20:03 (Flomax) 0.4 mg DAILY PO 12/29/17 09:00 01/13/18 09:28 (Tylenol 650 Mg/ 20 ml Liq) 650 mg Q6H PRN PO 12/28/17 11:45 01/13/18 09:29 (NovoLIN R SUPPLEMENTAL SCALE) 1 ACHS SQ 12/29/17 12:00 01/13/18 17:00 (Pepcid) 20 mg HS PO 12/29/17 21:00 01/13/18 20:57 ([place] 5-325 Mg) 1 tab Q4H PRN PO 12/29/17 08:30 01/13/18 18:12 Phenylephrine HCl 40 mg/Dextrose 500 ml @ 30 mls/hr TITRATE PRN IV 01/02/18 12:00 01/09/18 11:30 Propofol 100 ml @ 4.176 mls/ hr TITRATE PRN IV 01/02/18 11:30 01/09/18 01:30 Heparin Sodium/ Dextrose 250 ml @ 10 mls/hr TITRATE PRN IV 01/04/18 10:45 01/10/18 23:34 (Deltasone) 30 mg DAILY PO 01/09/18 09:00 01/14/18 08:00 (Lopressor) 12.5 mg BID PO 01/10/18 10:00 01/14/18 08:00 (Vancomycin 25 Mg/ml Liq) 125 mg DAILY PO 01/11/18 09:00 01/14/18 08:03 (Sodium Bicarbonate) 650 mg Q12HR PO 01/13/18 09:00 01/14/18 08:00 (Lasix Inj) 40 mg BID IV PUSH 01/14/18 21:00 UNV Lines Line no evidence of infection Past Medical History Chronic respiratory failure secondary to APOLONIA, OHS and bronchial asthma Atrial fibrillation rate controlled Hypertension Dyslipidemia Gastroesophageal reflux disease Elevated BMI greater than 50 Recurrent MRSA pneumonia Depression Constipation Past Surgical History JJ stent placement by urology Hiatal hernia surgery Appendectomy Percutaneous tracheostomy by Dr. Mullins since decannulated Allergies: Coded Allergies: penicillin G (Unverified Allergy, Severe, 05/29/17) Objective . Vital Signs Date Time Temp Pulse Resp B/P (MAP) Pulse Ox O2 Delivery O2 Flow Rate FiO2 01/14/18 09:06 16 01/14/18 08:17 100 40 01/14/18 06:00 107 01/14/18 04:04 100 40 01/14/18 04:00 97 01/14/18 04:00 97.8 97 16 145/63 (90) 100 01/14/18 04:00 40 01/14/18 02:00 93 01/14/18 01:04 100 40 01/14/18 00:00 40 01/14/18 00:00 98.7 94 16 135/71 (92) 94 01/14/18 00:00 94 01/13/18 22:00 92 01/13/18 20:08 100 40 01/13/18 20:00 40 01/13/18 20:00 98.3 98 16 141/85 (103) 100 01/13/18 20:00 98 01/13/18 18:01 101 01/13/18 18:00 100 01/13/18 17:01 106 01/13/18 17:01 106 29 170/77 (108) 01/13/18 17:00 106 16 01/13/18 17:00 106 01/13/18 16:03 100 40 01/13/18 16:01 97 01/13/18 16:01 99.1 97 18 122/82 (95) 100 01/13/18 16:00 40 01/13/18 16:00 98 16 100 01/13/18 16:00 98 01/13/18 15:01 95 01/13/18 15:00 95 01/13/18 14:01 91 01/13/18 14:00 86 01/13/18 12:08 94 40 01/13/18 12:01 88 01/13/18 12:01 88 16 138/67 (90) 100 01/13/18 12:00 92 17 100 01/13/18 12:00 92 01/13/18 12:00 40 01/13/18 11:01 90 01/13/18 11:01 90 16 123/88 (100) 100 01/13/18 11:00 96 16 100 01/13/18 11:00 96 . Laboratory Tests Test 01/13/18 03:42 01/14/18 04:44 White Blood Count 6.4 TH/MM3 6.2 TH/MM3 Red Blood Count 2.48 MIL/MM3 2.73 MIL/MM3 Hemoglobin 7.5 GM/DL 8.0 GM/DL Hematocrit 22.7 % 24.1 % Mean Corpuscular Volume 91.3 FL 88.5 FL Mean Corpuscular Hemoglobin 30.2 PG 29.3 PG Mean Corpuscular Hemoglobin Concent 33.1 % 33.1 % Red Cell Distribution Width 21.6 % 20.9 % Platelet Count 101 TH/MM3 115 TH/MM3 Mean Platelet Volume 9.7 FL 9.6 FL Hematology Comments Laboratory Tests Test 01/13/18 03:42 01/14/18 04:44 Blood Urea Nitrogen 84 MG/DL 83 MG/DL Creatinine 3.22 MG/DL 3.48 MG/DL Random Glucose 73 MG/DL 100 MG/DL Calcium Level 8.1 MG/DL 8.2 MG/DL Sodium Level 142 MEQ/L 143 MEQ/L Potassium Level 4.1 MEQ/L 3.7 MEQ/L Chloride Level 110 MEQ/L 108 MEQ/L Carbon Dioxide Level 16.8 MEQ/L 17.6 MEQ/L Anion Gap 15 MEQ/L 17 MEQ/L Estimat Glomerular Filtration Rate 14 ML/MIN 13 ML/MIN Microbiology Date/Time Source Procedure Growth Status 01/13/18 16:42 Urine Catheterized Urine Urine Culture Pending Received Imaging Chest X-Ray 01/13/18 0000 Signed Impressions: Service Date/Time: Saturday, January 13, 2018 07:56 - CONCLUSION: 1. Stable appearance with complete opacification of left hemithorax and volume loss. 2. Mild patchy opacity remains at the right lung base. Chintan Marshall MD Chest X-Ray 01/12/18 0600 Signed Impressions: Service Date/Time: Friday, January 12, 2018 04:41 - CONCLUSION: Stable consolidation throughout the left lung with a small infiltrate at the right lung base unchanged. Domingo Calderon MD Chest X-Ray 01/07/18 0000 Signed Impressions: Service Date/Time: Sunday, January 07, 2018 06:51 - CONCLUSION: 1. Worsening opacification of the left chest with volume loss likely secondary to worsening atelectasis. 2. Cardiomegaly. 3. Hazy density at the mid and lower right lung likely related to underlying edema and mild effusion. Perry Frye MD Chest CT 12/27/17 0000 Signed Impressions: Service Date/Time: December 10:29 - CONCLUSION: 1. Basilar atelectasis and small pleural effusions, increased from November 26. Mild perihilar groundglass opacity present most characteristic of minimal pulmonary edema. 2. Support apparatus as above. Moderate coronary calcifications. Sachin Gonzalez MD Abdomen/Pelvis CT 12/20/17 0000 Signed Impressions: Service Date/Time: December 21:20 - CONCLUSION: Stable appearance to the CT abdomen/pelvis were compared to 11/26/17. Right double-J stent in place, multiple gallstones, left renal mass, left lateral ventral hernia. Dorian Vasquez MD Upper Extremity Ultrasound 12/13/17 0000 Signed Impressions: Service Date/Time: December 13:43 - CONCLUSION: 1. No deep venous thrombosis in the left upper extremity. 2. Superficial thrombosis of the right cephalic vein. El Nuñez MD Lower Extremity Ultrasound 12/13/17 0000 Signed Impressions: Service Date/Time: December 14:26 - CONCLUSION: Normal examination. Domingo Calderon MD Head CT 12/13/17 0000 Signed Impressions: Service Date/Time: December 13:30 - CONCLUSION: Normal examination. Domingo Calderon MD Chest X-Ray 01/04/18 0600 Signed Impressions: Service Date/Time: Thursday, January 04, 2018 04:15 - CONCLUSION: 1. Interval improvement in opacity in the left lung with aeration now noted in the upper lobe and perihilar region. Dense consolidation remains in the left lung base. 2. The patient is rotated to the left. Chintan Marshall MD Chest CT 12/27/17 0000 Signed Impressions: Service Date/Time: December 10:29 - CONCLUSION: 1. Basilar atelectasis and small pleural effusions, increased from November 26. Mild perihilar groundglass opacity present most characteristic of minimal pulmonary edema. 2. Support apparatus as above. Moderate coronary calcifications. Sachin Gonzalez MD Abdomen/Pelvis CT 12/20/17 0000 Signed Impressions: Service Date/Time: December 21:20 - CONCLUSION: Stable appearance to the CT abdomen/pelvis were compared to 11/26/17. Right double-J stent in place, multiple gallstones, left renal mass, left lateral ventral hernia. Dorian Vasquez MD Upper Extremity Ultrasound 12/13/17 0000 Signed Impressions: Service Date/Time: December 13:43 - CONCLUSION: 1. No deep venous thrombosis in the left upper extremity. 2. Superficial thrombosis of the right cephalic vein. El Nuñez MD Lower Extremity Ultrasound 12/13/17 0000 Signed Impressions: Service Date/Time: December 14:26 - CONCLUSION: Normal examination. Domingo Calderon MD Head CT 12/13/17 0000 Signed Impressions: Service Date/Time: December 13:30 - CONCLUSION: Normal examination. Domingo Calderon MD Physical Exam GENERAL: on the vent, NAD SKIN: Cool and dry. No generalized rash. edematous HEAD: Atraumatic. Normocephalic. No temporal wasting, or tenderness. EYES: [place] conjunctiva. No petechia or hemorrhage. Pupils equal, round and reactive to light. No scleral icterus. EARS, NOSE AND THROAT: Nose without bleeding or purulent nasal discharge. Moist mucosa. NECK: Trach site ok CARDIOVASCULAR: Regular rate and rhythm. No murmurs, rubs or gallops heard RESPIRATORY: Decreased breath sounds R base, decreased whole L side ABDOMEN: Soft, obese, no reaction to palpation, nondistended. Edematous Bowel sounds present and normoactive. EXTREMITIES: No clubbing, cyanosis. Has diffuse edema. No calf tenderness. . NEUROLOGICAL: Opens eyes spontaneously. Moves all 4 extremities. PSYCH: Unable to assess LINE: Line no evidence of infection Assessment & Plan Remarks IMPRESSION UTI, with Klebsiella Kleb MDR CRE ESBL+ - S/P Rx Hypotension, ?new infection, BP better, off pressors - ?lung - ?fungemia, has been on steroids and different Abx [place]ia species (GNR bacteremia): history of prior lines. - ?significance - repeat BC negative Previous episode of complicated UTI,, has stent in place, had obstruction - CT A/P looks ok, stent in place, no hydro Known APOLONIA Respiratory failure, chronically on BIPAP mask - CXR with white out L, due to plugging, atelectasis - extubated 12/28, reintubated 01/02 - has tracheomalacia seen on bronchoscopy - S/P trach 01/11 Obesity Renal insufficiency, chronic Allergy to PCN, tolerates Cephalosporins Thrombocytopenia, better UC with VRE and C glabrata, ?colonization RECOMMENDATION Continue oral vanco - continue taper - end date ordered Follow repeat UC Monitor pulmonary status Monitor progress Awaiting plans for repeat bronch Being referred to LT[facility] D/W RN Cain Cartagena covering in my absence 01/15-01/20 Marely Plunkett MD Jan 14, 2018 10:09
--- NOTE | 2018-01-14 12:43 | HHI.PR ---
Subjective Remarks On Vent support and on FIO2 40 %. Awake and responds . Has Complete whiteout of left lung . Bronchoscopy on Hold due to fresh trach. Tolerates feeds Objective Vital Signs Date Time Temp Pulse Resp B/P (MAP) Pulse Ox O2 Delivery O2 Flow Rate FiO2 01/14/18 12:01 98.3 111 19 129/71 (90) 100 01/14/18 12:00 40 01/14/18 12:00 111 01/14/18 11:58 100 40 01/14/18 11:01 99 16 151/63 (92) 100 01/14/18 10:01 92 16 130/62 (84) 100 01/14/18 10:00 97 01/14/18 09:06 16 01/14/18 09:01 91 16 128/59 (82) 100 01/14/18 08:17 100 40 01/14/18 08:00 97 01/14/18 08:00 40 01/14/18 08:00 98.1 97 16 131/64 (86) 100 01/14/18 07:00 90 16 124/80 (95) 100 01/14/18 06:01 107 16 128/71 (90) 100 01/14/18 06:00 107 01/14/18 05:00 99 16 139/87 (104) 100 01/14/18 04:04 100 40 01/14/18 04:00 97 01/14/18 04:00 97.8 97 16 145/63 (90) 100 01/14/18 04:00 40 01/14/18 02:00 93 01/14/18 01:04 100 40 01/14/18 00:00 40 01/14/18 00:00 98.7 94 16 135/71 (92) 94 01/14/18 00:00 94 01/13/18 22:00 92 01/13/18 20:08 100 40 01/13/18 20:00 40 01/13/18 20:00 98.3 98 16 141/85 (103) 100 01/13/18 20:00 98 01/13/18 18:01 101 01/13/18 18:00 100 01/13/18 17:01 106 01/13/18 17:01 106 29 170/77 (108) 01/13/18 17:00 106 16 01/13/18 17:00 106 01/13/18 16:03 100 40 01/13/18 16:01 97 01/13/18 16:01 99.1 97 18 122/82 (95) 100 01/13/18 16:00 40 01/13/18 16:00 98 16 100 01/13/18 16:00 98 01/13/18 15:01 95 01/13/18 15:00 95 01/13/18 14:01 91 01/13/18 14:00 86 I/O 01/13/18 01/13/18 01/13/18 01/14/18 01/14/18 01/14/18 07:00 15:00 23:00 07:00 15:00 23:00 Intake Total 200 ml 600 ml 464 ml Output Total 775 ml 0 ml 850 ml 800 ml Balance -575 ml 0 ml -250 ml -336 ml Tube Feeding 200 ml 300 ml 464 ml Other 300 ml Output Urine Total 675 ml 850 ml 750 ml Stool Total 100 ml 50 ml Tube Feeding Residual Discard 0 ml # Bowel Movements 100 Result Diagram: 01/14/18 0444 01/14/18 044 Objective Remarks GENERAL: This is a Obese elderly W/F patient, Awake and on Vent support. Trach Tube in. CARDIOVASCULAR: Regular rate and rhythm without murmurs, gallops, or rubs. RESPIRATORY: Occ expiratory wheezes, diminished breath sounds left chest . Occ Crackles at bases . GASTROINTESTINAL: Abdomen soft, non-tender,nondistended. Normal active bowel sounds MUSCULOSKELETAL: Extremities without clubbing, cyanosis,but has Mild edema. NEURO: awake .1 + Reflexes. Assessment and Plan Assessment and Plan (1) Chronic hypercapnic respiratory failure Diagnosis: Principal (2) Hypoglycemia Diagnosis: Principal (3) BMI 50.0-59.9, adult Diagnosis: Principal (4) Afib Diagnosis: Secondary (5) Dyslipidemia Diagnosis: Secondary (6) Peripheral neuropathy Diagnosis: Secondary (7) Diabetes mellitus Diagnosis: Principal (8) Essential hypertension Diagnosis: Principal (9) Hiatal hernia Diagnosis: Secondary (10) Gastroesophageal reflux disease Diagnosis: Secondary (11) Chronic kidney disease (CKD) stage G3a/A3, moderately decreased glomerular filtration rate (GFR) between 45-59 mL/min/1.73 square meter and albuminuria creatinine ratio greater than 300 mg/g Diagnosis: Secondary (12) Left Lung atelectasis. Plan : 1 Wean FIO 2 and keep sat >92 2. Continue antibiotics. 3 Vent at rate 16, FIO2 at 35 %.PEEP +7. 4. Duonebs qid. 5. Chest X ray in am 6. Bronchoscopy this week, and get consent 7. CBC,BMP in am 8. PEG tube with Feeds. Francoise Poon MD Jan 14, 2018 12:43
--- NOTE | 2018-01-14 12:55 | HHI.DS ---
Discharge Summary Admission Date Dec 13, 2017 at 13:14 Discharge Date: Jan 14, 2018 Admitting Diagnosis acute hypercarbic resp failure, hypoglcemia (1) Acute hypercapnic respiratory failure ICD Code: J96.02 - Acute respiratory failure with hypercapnia Diagnosis: Principal Status: Acute (2) Hypoglycemia ICD Code: E16.2 - Hypoglycemia, unspecified Diagnosis: Principal Status: Acute (3) BMI 50.0-59.9, adult ICD Code: Z68.43 - Body mass index (BMI) 50-59.9 , adult Diagnosis: Principal (4) Afib ICD Code: I48.91 - Unspecified atrial fibrillation Diagnosis: Secondary Status: Chronic (5) Dyslipidemia ICD Code: E78.5 - Hyperlipidemia, unspecified Diagnosis: Secondary (6) Peripheral neuropathy ICD Code: G62.9 - Polyneuropathy, unspecified Diagnosis: Secondary (7) Diabetes mellitus ICD Code: E11.9 - Type 2 diabetes mellitus without complications Diagnosis: Principal (8) Essential hypertension ICD Code: I10 - Essential (primary) hypertension Diagnosis: Principal (9) Hiatal hernia ICD Code: K44.9 - Diaphragmatic hernia without obstruction or gangrene Diagnosis: Secondary (10) Gastroesophageal reflux disease ICD Code: K21.9 - Gastro-esophageal reflux disease without esophagitis Diagnosis: Secondary (11) Chronic kidney disease (CKD) stage G3a/A3, moderately decreased glomerular filtration rate (GFR) between 45-59 mL/min/1.73 square meter and albuminuria creatinine ratio greater than 300 mg/g ICD Code: N18.3 - Chronic kidney disease, stage 3 (moderate) Diagnosis: Secondary Status: Chronic Brief History This is a 67-year-old female. Date of admission 12/13/2017. Past medical history includes elevated BMI, chronic asthma on chronic oxygen, atrial fibrillation/rate controlled, hypertension dyslipidemia. Today, patient presents to [facility] emergency department after being [facility]. She was just discharged from the hospital 12/10/2017 from [facility]. She is morbidly obese with multiple severe chronic illnesses and was both in respiratory distress and decreased responsiveness at the same time. She was noted to be hypoxic with saturations in the e 80s with nasal cannula. Was brought in on BiPAP. Accu-Chek was in the 30s when paramedics found her. Initial GCS was reported as 3. She received some D10 through a right arm PICC line but upon arrival staff felt that the PICC line was not working properly. Patient cannot provide any history or review of systems. She arrives critically ill Patient received D50 and a central line in the right internal jugular was placed by ED physician as no significant access was available. Chest x-ray revealed no acute cardiopulmonary findings. After being placed on BiPAP and receiving glucose patient's mentation is much improved and likely can be removed in the ICU. Less confused when evaluated in the ED. UA is positive. Previous history of Pseudomonas sensitive to aztreonam CBC/BMP: 01/14/18 0444 01/14/18 0444 Significant Findings Laboratory Tests Test 01/11/18 15:46 01/11/18 19:38 01/12/18 03:09 01/13/18 03:42 White Blood Count 11.5 TH/MM3 (4.0-11.0) Red Blood Count 2.60 MIL/MM3 (4.00-5.30) 2.48 MIL/MM3 (4.00-5.30) Hemoglobin 7.8 GM/DL (11.6-15.3) 7.5 GM/DL (11.6-15.3) Hematocrit 23.5 % (35.0-46.0) 22.7 % (35.0-46.0) Red Cell Distribution Width 21.9 % (11.6-17.2) 21.6 % (11.6-17.2) Platelet Count 42 TH/MM3 (150-450) 101 TH/MM3 (150-450) Neutrophils (%) (Auto) 95.9 % (16.0-70.0) Lymphocytes (%) (Auto) 1.5 % (9.0-44.0) Neutrophils # (Auto) 11.0 TH/MM3 (1.8-7.7) Lymphocytes # (Auto) 0.2 TH/MM3 (1.0-4.8) Neutrophils % (Manual) 95 % (16-70) Lymphocytes % 3 % (9-44) Neutrophils # (Manual) 11.2 TH/MM3 (1.8-7.7) Promyelocytes 1 % (0-0) Platelet Estimate LOW (NORMAL) Platelet Morphology Comment ENLARGED (NORMAL) Blood Gas HCO3 17 mmol/L (22-26) Blood Gas Base Excess -7.2 mmol/L (-2-2) Arterial Blood pH 7.37 (7.380-7.420) Arterial Blood Partial Pressure CO2 31 mmHg (38-42) Arterial Blood Partial Pressure O2 167 mmHg (61-120) Arterial Blood Oxygen Content 11.6 Vol % (12.0-20.0) Blood Gas Hemoglobin 8.3 G/DL (12.0-16.0) Blood Urea Nitrogen 84 MG/DL (7-18) Creatinine 3.22 MG/DL (0.50-1.00) Random Glucose 73 MG/DL (74-106) Calcium Level 8.1 MG/DL (8.5-10.1) Chloride Level 110 MEQ/L (98-107) Carbon Dioxide Level 16.8 MEQ/L (21.0-32.0) Estimat Glomerular Filtration Rate 14 ML/MIN (>89) Test 01/13/18 16:42 01/14/18 04:44 Urine Leukocyte Esterase LARGE (NEG) Urine WBC 16 /hpf (0-5) Urine Bacteria RARE /hpf (NONE) Urine Mucus FEW /lpf (OCC) Red Blood Count 2.73 MIL/MM3 (4.00-5.30) Hemoglobin 8.0 GM/DL (11.6-15.3) Hematocrit 24.1 % (35.0-46.0) Red Cell Distribution Width 20.9 % (11.6-17.2) Platelet Count 115 TH/MM3 (150-450) Blood Urea Nitrogen 83 MG/DL (7-18) Creatinine 3.48 MG/DL (0.50-1.00) Calcium Level 8.2 MG/DL (8.5-10.1) Chloride Level 108 MEQ/L (98-107) Carbon Dioxide Level 17.6 MEQ/L (21.0-32.0) Anion Gap 17 MEQ/L (5-15) Estimat Glomerular Filtration Rate 13 ML/MIN (>89) PE at Discharge GENERAL: NAD and sleeping SKIN: Warm and dry. HEAD: Normocephalic. EYES: No scleral icterus. No injection or drainage. NECK: Supple, trachea midline. No JVD or lymphadenopathy. CARDIOVASCULAR: Irreg Regular rate and rhythm without murmurs, gallops, or rubs. RESPIRATORY: Breath sounds decrease bilaterally. No accessory muscle use. GASTROINTESTINAL: Abdomen soft, non-tender, nondistended. MUSCULOSKELETAL: No cyanosis, or edema. BACK: Nontender without obvious deformity. No CVA tenderness. Transfer Summary Planned transfer to [facility] for long-term ventilator weaning. Hospital Course This is a 67-year-old female. Date of admission 12/13/2017. Past medical history includes elevated BMI, chronic asthma on chronic oxygen, atrial fibrillation/rate controlled, hypertension dyslipidemia. Today, patient presents to [facility] emergency department after being [facility] unresponsive [facility]. She was just discharged from the hospital 12/10/2017 from [facility]. She is morbidly obese with multiple severe chronic illnesses and was both in respiratory distress and decreased responsiveness at the same time. She was noted to be hypoxic with saturations in the e 80s with nasal cannula. Was brought in on BiPAP. Accu-Chek was in the 30s when paramedics found her. Initial GCS was reported as 3. She received some D10 through a right arm PICC line but upon arrival staff felt that the PICC line was not working properly. Patient cannot provide any history or review of systems. She arrives critically ill Patient received D50 and a central line in the right internal jugular was placed by ED physician as no significant access was available. Chest x-ray revealed no acute cardiopulmonary findings. After being placed on BiPAP and receiving glucose patient's mentation is much improved and likely can be removed in the ICU. Less confused when evaluated in the ED. UA is positive. Previous history of Pseudomonas sensitive to aztreonam 3: Currently resting in bed in no acute distress on 3 L nasal cannula. Overnight on BiPAP/Venturi mask currently on 3 L nasal cannula. Difficult to arouse but once arousable does follow commands in all 4 extremities but weakly. Blood sugar 135. ABG currently pending 12/15: Afebrile. Resting in bed on nasal cannula. Arousable and following commands. Ill-definition due to hypo-tension. I will place arterial line secondary to body habitus. She does not appear septic. She is more awake and alert and attentive today as compared to yesterday. 12/16: Alert and oriented 3, responding to questions appropriately. Arterial line inability to play secondary to body habitus. Patient remained on phenylephrine during the night but now map remains less than 60 will resume phenylephrine infusion, and initiate Midodrine. 12/17: Hemodynamically stable. Phenylephrine infusion off since last night. MAP 80's. Patient alert and oriented, tolerating diet/breakfast. 12/18: Late entry note. Hemodynamically stable. Decrease FiO2 requirements currently on 2 L nasal cannula O2 saturation 97-98 %. RECONSULT 12/19: Patient became hemodynamically unstable this afternoon requiring reinitiation of phenylephrine infusion currently at 70 mcgs/minute. 12/20: Patient became somnolent last evening noted respiratory acidosis around 2 AM. Patient placed back on BiPAP. ID has been consulted for MDR Klebsiella. Patient awake and alert this afternoon, and denies pain. 12/21: Respiratory status much improved, and to remain on BiPAP at night while sleeping. ABGs improved. Patient hemodynamically stable no vasopressor requirements at this time. IV fluids discontinued. Patient tolerating a diet. 12/22: Patient remains a respiratory acidosis, slightly more lethargic today. Patient placed on BiPAP with exception of meals today. Repeat ABG pending this afternoon 12/23: ABG's and neuro status unchanged. Patient remains on BiPAP with exception of meals. Repeat ABG pending this afternoon. Ammonia level ordered. 12/24 Patient is on BIPAP 15/ with 40% . In Afib with RVR 12/25 No events overnight. Remains on BIPAP. Started on Lasix drip per renal 20mg /hr 12/26: Patient remains on BiPAP lethargic. Air entry is diminished on the left side. Chest x-ray shows complete whiteout on the left side with mediastinal shift to the left indicating mucus plugging and left lung collapse. Will proceed with emergency intubation and bronchoscopy (I discussed with Dr. Baca -he will do bronchoscopy at 11:30 AM today) 12/27: Intubated yesterday for severe left lung atelectasis. Underwent bronchoscopy by Dr. Baca. Bronchoscopy showed tracheomalacia and bronchomalacia involving right mainstem bronchi, left mainstem and left upper lobe bronchi. Significant thick mucoid secretions in right upper lobe bronchi, left upper bronchus and also left lower lobe. Moderate endobronchitis. Chest x -ray shows moderate improvement in left upper lobe but persistent dense consolidation middle and lower lung zones. Check CT of the chest stat today 12/28: Afebrile. FiO2 at 30% awake alert and awake. Plan extubation today passes parameters.. 12/29: Afebrile. Extubated yesterday without complications to BiPAP currently at 09/18 at 35%. Tolerated taking pills yesterday. Somewhat lethargic this a.m. but this appears to be her baseline 12/30: Afebrile. Currently on room air. Tolerating diet. Remove central line today if furosemide drip changed to 40 mg IV [address] Archer. 12/31 Patient is on 3L oxygen. Awake, alert. Afebrile. Off Lasix drip. 01/01 No events overnight. On 3L oxygen. Off BIPAP. Afebrile. 321: Patient has diminished breath sounds left lung, and the left lung is is rc out on CXR with midline shift indicating complete atelectasis. I discussed with her need for bronchoscopy following intubation. Patient is willing for intubation and bronchoscopy. She does not want trach IF she can be extubated, if not extubated in 4-5 days patient is willing to get trach. I gave her the option for palliative care and comfort measures which patient refused. Discussed with Dr. Michelle who is covering fro Dr. Baca 01/03: Patient was intubated yesterday for almost complete left lung collapse. Had bronchoscopy and large amount of thick mucoid secretions removed from left upper and left lower lobe bronchi. Patient has severe bronchomalacia and bronchial narrowing involving left upper and lower lobe bronchi. Currently using large tidal volumes and high PEEP in an attempt to open up the lung. Patient may need permanent trach. Requiring 40 mcg/min of Ion-Synephrine 01/04: Patient remains intubated sedated but wakes up easily. Chest x-ray today shows improved aeration of the left upper and middle lung west, dense consolidation persists left lower lobe. Start weaning PEEP to 10, reduce tidal volumes to 550-600. Initiate vent weaning trials in 24 hours 01/05: still intubated and sedated. peep 8. off pathway. 01/06: failing weaning attempts. patient had requested 1 additional weaning attempt prior to tracheostomy, but I do not see this as a realistic possibility. 01/07: Chest x-ray today shows complete opacification of the left lung field again. An entry diminished on the left side on exam. Unable to wean to extubate. General surgery consulted for watery discussed with Dr. Coley. Discussed with ID Dr. Cartagena re: [place] bacteremia. Repeat cultures, completed IV vanc before 01/08: Remains intubated sedated. Plan is for OR trach tomorrow followed by bronchoscopy after trach placement by Dr. Baca. Hemoglobin 8.2 unit of PRBC yesterday 01/09: Abruptly dropped BP to 70's, 500 ml fluid bolus given and started on 50 mcg/min of Ion-Synephrine. Due to hypotension planned or trach was canceled by Dr. Coley. Chest x-ray continues to show left-sided atelectasis. Dr. Lutz planning to bronch after trach 01/10: plan for trach tomorrow. no changes. no improvements. Subjective 01/11: s/p trach today. still sedated from anesthesia. no changes. will need long -term acute care facility, likely Sunday once trach more secure. 01/12: still slow vent wean. will require LTAC. no other changes or improvements. 01/13: Remains intubated weeks obesely. Air entry remains diminished on the left lung west. BUN 84 creatinine worsening to 3.22, urine output 1.3 L in 24 hours. Add bicarb p.o. due to metabolic acidosis. May need hemodialysis deferred to nephrology Pt Condition on Discharge: Fair Discharge Disposition: Disch to Another Hospital Discharge Instructions DIET: Follow Instructions for: As Tolerated, No Restrictions Speech Therapy-Diet Recommends: Mechanical Soft, Chopped Meat w/Gravy Activities you can perform: Regular-No Restrictions Colin Moralez MD Jan 14, 2018 12:55
[2018-01-14] MEDS ORDERED: FUROSEMIDE 40 MG/4 ML VIAL IV PUSH SCH (21:00)
== END 2018-01-14 18:20 | DRG 4 ==
LOC: NEPC 10:01 → NEDA 13:14 → HIMW 15:56
PROVIDERS: ADMIT Anesthesiology; ATTEND Anesthesiology
PROC: 5A09357 Assistance with Respiratory Ventilation, Less than 24 Consecutive Hours, Continuous Positive Airway Pressure (ICD-10-PCS; 2017-12-13)
PROC: 02H633Z Insertion of Infusion Device into Right Atrium, Percutaneous Approach (ICD-10-PCS; 2017-12-13)
PROC: 5A1945Z Respiratory Ventilation, 24-96 Consecutive Hours (ICD-10-PCS; 2017-12-26)
PROC: 0BCB8ZZ Extirpation of Matter from Left Lower Lobe Bronchus, Via Natural or Artificial Opening Endoscopic (ICD-10-PCS; 2017-12-26)
PROC: 0BC48ZZ Extirpation of Matter from Right Upper Lobe Bronchus, Via Natural or Artificial Opening Endoscopic (ICD-10-PCS; 2017-12-26)
PROC: 0BC88ZZ Extirpation of Matter from Left Upper Lobe Bronchus, Via Natural or Artificial Opening Endoscopic (ICD-10-PCS; 2017-12-26)
PROC: 0BC58ZZ Extirpation of Matter from Right Middle Lobe Bronchus, Via Natural or Artificial Opening Endoscopic (ICD-10-PCS; 2017-12-26)
PROC: 0BC78ZZ Extirpation of Matter from Left Main Bronchus, Via Natural or Artificial Opening Endoscopic (ICD-10-PCS; 2017-12-26)
PROC: 0BC68ZZ Extirpation of Matter from Right Lower Lobe Bronchus, Via Natural or Artificial Opening Endoscopic (ICD-10-PCS; 2017-12-26)
PROC: 0BH17EZ Insertion of Endotracheal Airway into Trachea, Via Natural or Artificial Opening (ICD-10-PCS; 2017-12-26)
PROC: 5A1955Z Respiratory Ventilation, Greater than 96 Consecutive Hours (ICD-10-PCS; 2018-01-02)
PROC: 0BH17EZ Insertion of Endotracheal Airway into Trachea, Via Natural or Artificial Opening (ICD-10-PCS; 2018-01-02)
PROC: 0BDB8ZX Extraction of Left Lower Lobe Bronchus, Via Natural or Artificial Opening Endoscopic, Diagnostic (ICD-10-PCS; 2018-01-02)
PROC: 0BD88ZX Extraction of Left Upper Lobe Bronchus, Via Natural or Artificial Opening Endoscopic, Diagnostic (ICD-10-PCS; 2018-01-02)
PROC: 0BD78ZX Extraction of Left Main Bronchus, Via Natural or Artificial Opening Endoscopic, Diagnostic (ICD-10-PCS; 2018-01-02)
PROC: 30233N1 Transfusion of Nonautologous Red Blood Cells into Peripheral Vein, Percutaneous Approach (ICD-10-PCS; 2018-01-07)
PROC: 0DH63UZ Insertion of Feeding Device into Stomach, Percutaneous Approach (ICD-10-PCS; 2018-01-11)
PROC: 0B110F4 Bypass Trachea to Cutaneous with Tracheostomy Device, Open Approach (ICD-10-PCS; principal; 2018-01-11 12:45)
DX: J96.22 Acute and chronic respiratory failure with hypercapnia (principal); G93.41 Metabolic encephalopathy; N17.9 Acute kidney failure, unspecified; J18.9 Pneumonia, unspecified organism; T17.598A Other foreign object in bronchus causing other injury, initial encounter; I13.0 Hypertensive heart and chronic kidney disease with heart failure and stage 1 through stage 4 chronic kidney disease, or unspecified chronic kidney disease; Z99.81 Dependence on supplemental oxygen; E87.0 Hyperosmolality and hypernatremia; I50.9 Heart failure, unspecified; E87.2 Acidosis; A04.72 Enterocolitis due to Clostridium difficile, not specified as recurrent; J44.0 Chronic obstructive pulmonary disease with (acute) lower respiratory infection; Z68.43 Body mass index [BMI] 50.0-59.9, adult; J98.11 Atelectasis; E66.2 Morbid (severe) obesity with alveolar hypoventilation; N39.0 Urinary tract infection, site not specified; Z99.11 Dependence on respirator [ventilator] status; I82.611 Acute embolism and thrombosis of superficial veins of right upper extremity; E10.22 Type 1 diabetes mellitus with diabetic chronic kidney disease; R34 Anuria and oliguria; E10.42 Type 1 diabetes mellitus with diabetic polyneuropathy; N18.3 Chronic kidney disease, stage 3 (moderate); E10.649 Type 1 diabetes mellitus with hypoglycemia without coma; J96.21 Acute and chronic respiratory failure with hypoxia; E78.5 Hyperlipidemia, unspecified; K44.9 Diaphragmatic hernia without obstruction or gangrene; K21.9 Gastro-esophageal reflux disease without esophagitis; I48.2 Chronic atrial fibrillation; F32.9 Major depressive disorder, single episode, unspecified; G89.4 Chronic pain syndrome; D64.9 Anemia, unspecified; Z16.24 Resistance to multiple antibiotics; B96.1 Klebsiella pneumoniae [K. pneumoniae] as the cause of diseases classified elsewhere; R00.0 Tachycardia, unspecified; J39.8 Other specified diseases of upper respiratory tract; J98.09 Other diseases of bronchus, not elsewhere classified; R13.10 Dysphagia, unspecified; D69.6 Thrombocytopenia, unspecified; E83.39 Other disorders of phosphorus metabolism; E83.42 Hypomagnesemia; E87.6 Hypokalemia; E88.09 Other disorders of plasma-protein metabolism, not elsewhere classified; I95.89 Other hypotension; R19.7 Diarrhea, unspecified; Z86.14 Personal history of Methicillin resistant Staphylococcus aureus infection; Z79.4 Long term (current) use of insulin; Z74.01 Bed confinement status; Z79.891 Long term (current) use of opiate analgesic; Z87.01 Personal history of pneumonia (recurrent); Z88.0 Allergy status to penicillin; Z82.5 Family history of asthma and other chronic lower respiratory diseases; Z83.3 Family history of diabetes mellitus
CPT/HCPCS: 31500; 31624; 36430; 36556; 36600; 70450; 71045; 71250; 74176; 76937; 80048; 80053; 80069; 80202; 81001; 82272; 82533; 82805; 82948; 83540; 83550; 83605; 83735; 83880; 84100; 84132; 84155; 85007; 85025; 85027; 85379; 85384; 85610; 85730; 86850; 86900; 86901; 86902; 86920; 86922; 87015; 87040; 87070; 87077; 87086; 87102; 87106; 87116; 87186; 87205; 87206; 87449; 87641; 88112; 88305; 93005; 93970; 94002; 94003; 94150; 94640; 94664; 96374; 99292; A7521; J0610; J0714; J1205; J1580; J1644; J1940; J2248; J2250; J2270; J2370; J2405; J2920; J3010; J3370; J3475; J3480; J7030; J7040; J7050; J7060; J7070; J7512; J7608; J7613; J7626; P9016; P9045; P9047